=== PATIENT | female | born 1970 | race Caucasian/White ===

== ENCOUNTER 2017-12-29 17:10 | Outpatient (RCR) | payer SELFPAY ==
[~2017-12-29] VITALS: Ht 180.3 cm; Wt 72.6 kg
[~2017-12-29 17:10] MED LIST: ACET-2267 PO; ACHD5005 PO; ALPR1T PO; APIX5TAB PO; ASP81CT GT; ASPI-808 PO; AZIT-21 PO; CEPH500C PO; CLIN300C3 PO; CPR500T PO; FLC150T PO; FLUC200T PO; FURO-124 PO; GABA-488 PO; GLBR5T; GLIP5TAB13; GLUCOPHAGE; GLYB5TAB3; GLYB5TAB3 PO; GLYBURIDE; HYDR1TAB PO; Hydrocodone; IBUP-30 PO; INSASP10V SQ; INSU100V3 SC; INSU100V6 SQ; IRON1CAP25 PO; LEVE1U SQ; LEVO750T39 PO; Levamir; METF-380 PO; METF500T; METF500T5 PO; MTF500T; MTF500T PO; NAPR-243 PO; NAPR550T PO; NPH,100V SQ; Novolog; PAMI30VI8 SQ; PHEN200T27 PO; PRAV20TA3 PO; PROP1TAB77 PO; PRV20T PO; SULF1TAB38 PO; TRAM-21; TRAM-21 PO; TRAM50TA2 PO; TRM50T PO; VANC1.2520 IV; VANC1VIA IV; [UNRECOGNIZED DRUG - CODE] IV; [UNRECOGNIZED DRUG - OTHER]; [UNRECOGNIZED DRUG - OTHER]; vancomycin
[2017-12-29 17:34] LABS: MEAN PLATELET VOLUME 8.8 FL (7.4-10.4); RED BLOOD COUNT 2.87 10^6/uL (4.35-5.85); RED CELL DISTRIBUTION WIDTH 22.6 % (10.0-14.5); WHITE BLOOD COUNT 5.9 10^3/uL (4.3-11.0)
[2017-12-29 17:39] LABS: HEMOGLOBIN 4.5 G/DL (11.5-16.0)
[2017-12-29 17:50] LABS: ALANINE AMINOTRANSFERASE 8 U/L (0-55); ALBUMIN 3.8 GM/DL (3.2-4.5); ALKALINE PHOSPHATASE 85 U/L (40-136); BILIRUBIN,TOTAL 0.3 MG/DL (0.1-1.0); BUN/CREATININE RATIO 22; CARBON DIOXIDE 25 MMOL/L (21-32); CHLORIDE 99 MMOL/L (98-107); CREATININE SERUM 0.69 MG/DL (0.60-1.30); GFR ESTIMATED > 60; GLUCOSE 314 MG/DL (70-105); POTASSIUM 4.3 MMOL/L (3.6-5.0); SODIUM 132 MMOL/L (135-145); TOTAL PROTEIN 7.4 GM/DL (6.4-8.2)
[2017-12-30] VITALS (7 sets, daily range): BP systolic 119–130; BP diastolic 53–71
[2017-12-30 10:07] LABS: ABSOLUTE RETIC # 27 10e9/L (24-90); BASOPHILS # (AUTO) 0.1 10^3/uL (0.0-0.1); BASOPHILS % (AUTO) 3 % (0-10); EOSINOPHILS # (AUTO) 0.2 10^3/uL (0.0-0.3); EOSINOPHILS % (AUTO) 3 % (0-10); LYMPHOCYTES # (AUTO) 1.8 X 10^3 (1.0-4.0); LYMPHOCYTES % (AUTO) 31 % (12-44); MEAN CORPUSCULAR HEMOGLOBIN 16 PG (25-34); MEAN CORPUSCULAR HGB CONC 25 G/DL (32-36); MEAN CORPUSCULAR VOLUME 63 FL (80-99); MEAN PLATELET VOLUME 9.5 FL (7.4-10.4); MONOCYTES # (AUTO) 0.4 X 10^3 (0.0-1.0); MONOCYTES % (AUTO) 8 % (0-12); NEUTROPHILS # (AUTO) 3.2 X 10^3 (1.8-7.8); NEUTROPHILS % (AUTO) 56 % (42-75); PLATELET COUNT 408 10^3/uL (130-400); RED CELL DISTRIBUTION WIDTH 22.6 % (10.0-14.5); RETICULOCYTE % 0.99 % (0.50-2.40); WHITE BLOOD COUNT 5.7 10^3/uL (4.3-11.0)
[2017-12-30 10:11] LABS: HEMOGLOBIN 4.3 G/DL (11.5-16.0)
[2017-12-30 10:12] LABS: HEMATOCRIT 17 % (35-52)
[2017-12-30 10:22] LABS: ANISOCYTOSIS MARKED; BAND NEUTROPHILS 0 %; BASOPHILS % (MANUAL) 3 %; EOSINOPHILS % (MANUAL) 4 %; HYPOCHROMASIA MARKED; LYMPHOCYTES % (MANUAL) 31 %; MICROCYTOSIS MODERATE; MONOCYTES % (MANUAL) 6 %; NEUTROPHILS % (MANUAL) 56 %; POLYCHROMASIA SLIGHT
[2018-05-11] MEDS ORDERED: INSU100I10 SQ (10:22)
[2018-05-11] MEDS ORDERED: INSU100I14 SQ (10:22)
[2018-05-11] MEDS ORDERED: [UNRECOGNIZED DRUG - CODE] MC (10:22)
[2018-05-11] MEDS ORDERED: [UNRECOGNIZED DRUG - CODE] MC (10:22)
[2018-05-11] MEDS ORDERED: [UNRECOGNIZED DRUG - CODE] MC (10:22)
== END 2018-03-29 | disposition home or self-care (01) ==
LOC: SDC 17:10 → LAB 17:10 → EDSTATUS 12-30 09:09
PROVIDERS: ATTEND Internal Medicine
DX: D64.9 Anemia, unspecified (principal)
CPT/HCPCS: 36415; 80053; 82728; 85007; 85027; 85045; 86850; 86900; 86901; 86922

== ENCOUNTER 2018-03-30 22:23 | Emergency (ER) | payer SELFPAY ==
[~2018-03-30] VITALS: Ht 180.3 cm; Wt 77.1 kg
--- OUTSIDE RECORDS SUMMARY | 2018-03-30 22:27 | XMS REPORT ---
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 Active 86545938723197817 Problem Type 2 diabetes mellitus with foot ulcer E11.621 Active 9519378398654 Problem [facility] current use of insulin Z79.4 Active 951839563 Problem PVD (peripheral vascular disease) I73.9 Active 568436483 Problem Type 2 diabetes mellitus without complications E11.9 Active 782616015 Problem Gastroparesis K31.84 Active 615039218 ALLERGIES No Information SOCIAL HISTORY Never Assessed PLAN OF CARE VITAL SIGNS MEDICATIONS Medication Instructions Dosage Frequency Start Date End Date Duration Status Hydrocodone-Acetaminophen 7.5-325 MG Orally, Must be seen for more refills 3 times a day prn pain 1 tablet as needed Dec, Active RESULTS No Results PROCEDURES No Known procedures IMMUNIZATIONS No Known Immunizations MEDICAL (GENERAL) HISTORY Type Description Date Medical History LEFT below knee amputation Medical History Diabetes, Type II Medical History Hypertension Medical History Hyperlipidemia Surgical History Phuong ZUNIGA Blood Clot/Gangrene 06/25/2016 Surgical History 2 csections Surgical History gallstone removal Surgical History Left BKA Hospitalization History Surgery Hospitalization History Bilat Pleural Effusions, Volume Overload 08/07/16 Hospitalization History Fluid in lungs 08/22/16 Hospitalization History Left below knee amputation 10/2016
--- OUTSIDE RECORDS SUMMARY | 2018-03-30 22:28 | XMS REPORT ---
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
--- OUTSIDE RECORDS SUMMARY | 2018-03-30 22:28 | XMS REPORT ---
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 Active 26189264786812131 Problem Type 2 diabetes mellitus without complications E11.9 Active 390491614 Problem 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
--- OUTSIDE RECORDS SUMMARY | 2018-03-30 22:28 | XMS REPORT ---
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 Active 107502540 Problem PVD (peripheral vascular disease) I73.9 Active 478111030 Problem Type 2 diabetes mellitus without complications E11.9 Active 515352975 Problem Gastroparesis K31.84 Active 326843957 ALLERGIES Substance Reaction Event Type Date Status Penicillin V Potassium hives Drug Allergy Jan, Active SOCIAL HISTORY Never Assessed PLAN OF CARE Activity Details Follow Up 3 Months Reason: VITAL SIGNS Height 71 in 2017-02-11 Weight 165 lbs 2017-02-11 Temperature 98.6 degrees Fahrenheit 2017-02-11 Heart Rate 102 bpm 2017-02-11 Respiratory Rate 18 2017-02-11 BMI 23.01 kg/m2 2017-02-11 Blood pressure systolic 106 mmHg 2017-02-11 Blood pressure diastolic 58 mmHg 2017-02-11 MEDICATIONS Medication Instructions Dosage Frequency Start Date End Date Duration Status Metformin HCl 500 MG Orally Twice a day 1 tablet with meals 12h Active Lancets 1 by Subcutaneous route 3 times per day March, Active Lisinopril 5 mg Orally Once a day 1 tablet 24h Active Levemir FlexTouch 100 UNIT/ML Subcutaneous Once a day 45 units at bedtime 24h Oct, Active Aspirin 325 MG Orally Once a day 1 tablet 24h Active Humalog KwikPen 100 UNIT/ML Subcutaneous 3 times a day 12 units before meals 8h Oct, Active Hydrocodone-Acetaminophen 7.5-325 MG Orally, Must be seen for more refills 3 times a day prn pain 1 tablet as needed Jan, Active Lasix 40 mg Orally Once a day 1 tablet 24h Active pravastatin 20 mg by oral route Once a day 1 tablet 24h Feb, Active RESULTS Name Result Date Reference Range A1C (IN HOUSE) 2017-02-11 A1C IN HOUSE 10.3 4.3 - 5.6 % Previous A1c 8.1 Lot 0692 Exp date 11/2018 CMP 2017-02-11 Glucose, Serum 546 65-99 BUN 14 6-24 Creatinine, Serum 0.60 0.57-1.00 eGFR If NonAfricn Am 107 >59 eGFR If Africn Am 124 >59 BUN/Creatinine Ratio 23 9-23 Sodium, Serum 133 134-144 Potassium, Serum 4.5 3.5-5.2 Chloride, Serum 94 96-106 Carbon Dioxide, Total 23 18-29 Calcium, Serum 8.9 8.7-10.2 Protein, Total, Serum 6.6 6.0-8.5 Albumin, Serum 3.7 3.5-5.5 Globulin, Total 2.9 1.5-4.5 A/G Ratio 1.3 1.2-2.2 Bilirubin, Total <0.2 0.0-1.2 Alkaline Phosphatase, S 67 39-117 AST (SGOT) 8 0-40 ALT (SGPT) 8 0-32 LIPID PANEL 2017-02-11 Cholesterol, Total 142 100-199 Triglycerides 101 0-149 HDL Cholesterol 55 >39 VLDL Cholesterol [place] 20 5-40 LDL Cholesterol Calc 67 0-99 PROCEDURES Procedure Date Ordered Result Body Site LIPID PANEL February 11, 2017 COMPREHEN METABOLIC PANEL February 11, 2017 VENIPUNCT, ROUTINE* February 11, 2017 GLYCATED HEMOGLOBIN TEST February 11, 2017 IMMUNIZATIONS No Known Immunizations MEDICAL (GENERAL) HISTORY [...]
--- OUTSIDE RECORDS SUMMARY | 2018-03-30 22:28 | XMS REPORT ---
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 Active 39305229399123671 Problem Type 2 diabetes mellitus without complications E11.9 Active 387253260 Problem snf current use of insulin Z79.4 Active 232332300 Problem Type 2 diabetes mellitus with foot ulcer E11.621 Active 4768628381486 Problem PVD (peripheral vascular disease) I73.9 Active 962949129 ALLERGIES Unknown Allergies SOCIAL HISTORY No smoking Hx information available PLAN OF CARE VITAL SIGNS MEDICATIONS Medication Instructions Dosage Frequency Start Date End Date Duration Status Humalog KwikPen 100 UNIT/ML Subcutaneous 3 times a day 12 units before meals 8h 20 Oct, 2016 Active RESULTS No Results PROCEDURES No Known procedures IMMUNIZATIONS No Known Immunizations
--- OUTSIDE RECORDS SUMMARY | 2018-03-30 22:29 | XMS REPORT ---
Author YANI Luz [facility] [employer] Address Unknown Phone Unavailable Care Team Providers Care Cell Technician Name Role Phone YANI CESAR CP Unavailable Allergies No Known Allergies Problems Problem Type Condition Code Onset Dates Condition Status Problem Type 2 diabetes mellitus without complications E11.9 Active Problem group home current use of insulin Z79.4 Active Problem PVD (peripheral vascular disease) I73.9 Active Problem Gastroparesis K31.84 Active Problem Hyperlipidemia, unspecified hyperlipidemia type E78.5 Active Medications No Known Medications Results No Known Results Summary Purpose [employer] Submission
--- OUTSIDE RECORDS SUMMARY | 2018-03-30 22:29 | XMS REPORT ---
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
--- OUTSIDE RECORDS SUMMARY | 2018-03-30 22:29 | XMS REPORT ---
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 [id number] 5-325 MG Orally 3 times a day prn pain Oct 07, 2016 1 Results No Known Results Summary Purpose [employer] Submission
--- OUTSIDE RECORDS SUMMARY | 2018-03-30 22:29 | XMS REPORT ---
Author Author NEFTALI GRIFFITHS Organization [employer] Address Unknown Phone Unavailable Care Team Providers Care Anesthesiology Fellow Name Role Phone NEFTALI GRIFFITHS CP Unavailable Allergies No Known Allergies Problems Problem Type Condition Code Onset Dates Condition Status Problem Unspecified backache 724.5 Active Problem Other and unspecified diseases of the oral soft tissues 528.9 Active Problem Polyneuropathy in diabetes 357.2 Active Problem Diabetes mellitus without mention of complication, type II or unspecified type, uncontrolled 250.02 Active Problem Acute pain due to trauma 338.11 Active Problem Gastroparesis 536.3 Active Problem Unspecified vaginitis and vulvovaginitis 616.10 Active Problem Acute sinusitis, unspecified 461.9 Active Problem Unspecified constipation 564.00 Active Problem Edema 782.3 Active Problem 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 Problem Cellulitis and abscess of trunk 682.2 Active Problem Cellulitis and abscess of unspecified site 682.9 Active Problem 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 Active Problem Strike against or struck accidentally by other stationary object without subsequent fall E917.4 Active Problem Lumbago 724.2 Active Problem Screening for malignant neoplasm of the cervix V76.2 Active Problem Unspecified breast screening V76.10 Active Problem Unspecified disorder of the teeth and supporting structures 525.9 Active Problem Excessive or frequent menstruation 626.2 Active Problem Contact dermatitis and other eczema due to plants (except food) 692.6 Active Problem Dysmenorrhea 625.3 Active Medications No Known Medications Results No Known Results Summary Purpose [employer] Submission
--- OUTSIDE RECORDS SUMMARY | 2018-03-30 22:29 | XMS REPORT ---
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.4 Active 272820466 Problem PVD (peripheral vascular disease) I73.9 Active 001822139 Problem Type 2 diabetes mellitus without complications E11.9 Active 273115927 Problem Gastroparesis K31.84 Active 305134294 ALLERGIES No Information ENCOUNTERS Encounter Location Date Diagnosis [place] [id number] [place] [address] 59607- 8759 March, [place] [id number] [place] [address] 84222- 3324 Feb, PVD (peripheral vascular disease) I73.9 [facility] [id number] [place] [address] 17445- 6923 Jan, [place] [id number] [place] [address] 04212- 5407 Jan, PVD (peripheral vascular disease) I73.9 [place] [id number] [place] [address] 75077- 2391 Dec, PVD (peripheral vascular disease) I73.9 [place] [id number] [place] [address] 45436- 2818 Dec, Pale complexion R23.1 and Severe anemia D64.9 [facility] [id number] [place] [address] 66350- 6619 10 Nov, 2017 PVD (peripheral vascular disease) I73.9 [facility] [id number] [place] [address] 23038- 7954 09 Nov, 2017 PVD (peripheral vascular disease) I73.9 [facility] [id number] [place] [address] 77350- 7712 07 Oct, 2017 PVD (peripheral vascular disease) I73.9 [place] [id number] [place] [address] 12518- 0681 Sep, PVD (peripheral vascular disease) I73.9 [place] [id number] [place] [address] 23198- 2253 16 Aug, 2017 PVD (peripheral vascular disease) I73.9 [place] [id number] [place] [address] 63566- 7711 Jul, PVD (peripheral vascular disease) I73.9 [place] [id number] [place] [address] 07682- 8453 Jun, Type 2 diabetes mellitus without complications E11.9 ; Hyperlipidemia, unspecified hyperlipidemia type E78.5 and PVD (peripheral vascular disease) I73.9 [place] [id number] [place] [address] 50687- 3307 Jun, [place] [id number] [place] [address] 70237- 4732 Jun, Long-term use of high-risk medication Z79.899 [place] [id number] [place] [address] 21524- 5340 May, [place] [id number] [place] [address] 34334- 1462 May, Osteomyelitis, unspecified M86.9 [place] [id number] [place] [address] 98823- 3018 Apr, 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, 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 [place] [id number] [place] [address] 55239- 7651 March, Osteomyelitis, unspecified M86.9 [place] [id number] [place] [address] 16431- 0069 Feb, 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, 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 [place] [id number] [place] [address] 36071- 1304 Jan, 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, 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 [place] [id number] [place] [address] 01068- 7949 Jan, Type 2 diabetes mellitus without complications E11.9 ; 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.4 ; Hyperlipidemia, unspecified hyperlipidemia type E78.5 ; Long-term use of high-risk medication Z79.899 and PVD (peripheral vascular disease) I73.9 [place] [id number] [place] [address] 78342- 1274 Dec, Cellulitis of right lower limb L03.115 [place] [id number] [place] [address] 44994- 1271 Dec, [place] [id number] [place] [address] 54262- 3577 Nov, 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, 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 [place] [id number] [place] [address] 00054- 4095 Nov, [place] [id number] [place] [address] 47412- 2947 Nov, [place] [id number] [place] [address] 64701- 4641 Oct, Other fluid overload E87.79 and Acute embolism and thrombosis of left femoral vein I82.412 [facility] [id number] [place] [address] 89622- 9148 Oct, [facility] [id number] [place] [address] 22098- 9132 Oct, [facility] [id number] [place] [address] 73723- 5043 Oct, PVD (peripheral vascular disease) I73.9 [facility] [id number] [place] [address] 95583- 1163 Oct, Other fluid overload E87.79 and Acute embolism and thrombosis of left femoral vein I82.412 [place] [id number] [place] [address] 04273- 3027 Oct, [place] [id number] [place] [address] 38112- 0700 Oct, 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, 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 [facility] [id number] [place] [address] 14622- 4816 10 Sep, 2016 [place] [id number] [place] [address] 81290- 5559 Sep, [facility] [id number] [place] [address] 77713- 5339 08 Sep, 2016 PVD (peripheral vascular disease) I73.9 [place] [id number] [place] [address] 83285- 5702 07 Aug, 2016 Type 2 diabetes mellitus with foot ulcer E11.621 and PVD ( peripheral vascular disease) I73.9 [facility] [id number] [place] [address] 04292- 3381 30 Jul, 2016 [facility] [id number] [place] [address] 79526- 9221 13 Jul, 2016 [facility] [id number] [place] [address] 94935- 8962 Jul, [place] [address] [facility] [id number] [place] [address]- 5754 Jul, [facility] [address] [facility] [id number] [place] [address]- 6045 Jun, [facility] [address] [place] [address]- 7935 Jun, [facility] [address] [place] [address]- 4291 Jun, [facility] [address] [facility] [id number] [place] [address]- 5289 May, [facility] [address] [address]- 9117 May, PVD (peripheral vascular disease) I73.9 ; Type 2 diabetes mellitus without complications E11.9 ; 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.4 and Hyperlipidemia, unspecified hyperlipidemia type E78.5 [facility] [address] [address]- 7253 May, [facility] [address] [address]- 8439 May, [facility] [address] [address]- 9038 May, [facility] [address] [address]- 5711 Feb, [facility] [id number] [place] [address]- 7168 Feb, [facility] [id number] [place] [address]- 6826 Jan, [facility] [address] [address]- 7657 Jan, [facility] [id number] [place] [address]- 4490 Dec, [facility] [id number] [place] [address]- 0419 Dec, [facility] [address] [id number] [place] [address]- 6713 Oct, [facility] [place] [facility] [address] [id number] [place] [address]- 0173 Oct, [facility] [place] [facility] [address] [id number] [place] [address]- 9519 Sep, [facility] [place] [facility] [address] [id number] [place] [address]- 3853 Sep, [facility] [place] [facility] [address] [id number] [place] [address]- 0314 Sep, [facility] [place] [facility] [address] [id number] [place] [address]- 5754 Sep, [facility] [place] [facility] [address] [facility] [id number] [place] [address]- 1073 Aug, [facility] [place] [facility] [address] [id number] [place] [address]- 6050 Aug, [facility] [place] [facility] [address] [facility] [id number] [place] [address]- 0057 Jul, [facility] [place] [facility] [address] [facility] [id number] [place] [address]- 8495 Jul, [facility] [place] [facility] [address] [id number] [place] [address]- 7248 Apr, [facility] [place] [facility] [address] [id number] [place] [address]- 2676 Apr, [facility] [place] [facility] [address] [id number] [place] [address]- 7419 Feb, [facility] [place] [facility] [address] [facility] [id number] [place] 8246 Feb, [facility] [place] [facility] [address] [facility] [id number] [place] 7624 Jan, [facility] [place] [facility] [address] [id number] [place] [address]- 2437 Jan, [facility] [place] [facility] [address] [id number] [place] [address]- 2886 Dec, [facility] [place] [facility] [address] [id number] [place] [address]- 9576 Dec, [facility] [place] [facility] [address] [id number] [place] [address]- 0564 Oct, [facility] [place] [facility] [address] [id number] [place] 0535 Oct, [facility] [place] [facility] [address] [id number] [place] [address]- 9049 Sep, [facility] [place] [facility] [address] [id number] [place] [address]- 1066 Sep, [facility] [place] [facility] [address] [id number] [place] [address]- 0472 Sep, [facility] [place] [facility] [address] [id number] [place] [address]- 9831 Sep, [facility] [place] [facility] [address] [id number] [place] [address]- 5002 Sep, [facility] [place] [facility] [address] [id number] [place] [address]- 9937 Sep, [facility] [place] [facility] [address] [id number] [place] [address]- 2133 Aug, [facility] [place] [facility] [address] [id number] [place] [address]- 7742 Jul, [facility] [place] [facility] [address] [id number] [place] [address]- 0303 Jun, [facility] [place] [facility] [address] [id number] [place] [address]- 8099 May, [facility] [place] [facility] [address] [id number] [place] [address]- 0757 Apr, [facility] [address] [id number] [place] [address]- 7991 Apr, [facility] [place] [facility] [address] [id number] [place] [address]- 5532 Apr, [facility] [address] [facility] [id number] [place] [address]- 8496 March, [facility] [address] [id number] [place] [address]- 1121 15 Jan, 2013 [facility] [address] [id number] [place] [address]- 3770 10 Jan, 2013 [facility] [address] [facility] [id number] [place] [address]- 0900 08 Jan, 2013 [facility] [id number] [place] [address]- 7256 07 Jan, 2013 [facility] [place] [facility] [address] [facility] [id number] [place] [address]- 1952 06 Jan, 2013 [facility] [address] [id number] [place] [address]- 5186 Dec, [facility] [place] [facility] [address] [id number] [place] [address]- 1815 18 Dec, 2012 [facility] [address] [id number] [place] [address]- 6886 Dec, [facility] [place] [facility] [address] [facility] [id number] [place] [address]- 2546 07 Dec, 2012 [facility] [place] [facility] [address] [id number] [place] [address]- 6140 05 Dec, 2012 [facility] [place] [facility] [address] [facility] [id number] [place] [address] 2546 Nov, [facility] [place] [facility] [address] [facility] [id number] [place] [address]- 6854 Nov, [facility] [place] [facility] [address] [id number] [place] [address]- 5379 Nov, [facility] [address] [id number] [place] [address]- 9400 Nov, [facility] [address] [id number] [place] [address]- 1980 Nov, [facility] [address] [id number] [place] [address]- 8948 Nov, [facility] [address] [id number] [place] [address]- 6680 Nov, [facility] [address] [id number] [place] [address]- 9238 Nov, [facility] [address] [id number] [place] [address]- 1746 Nov, [facility] [address] [id number] [place] [address]- 7257 Sep, [facility] [address] [id number] [place] [address]- 6117 14 Sep, 2012 [facility] [address] [id number] [place] [address]- 9945 25 Jul, 2012 [facility] [address] [id number] [place] [address]- 8460 17 Jul, 2012 [facility] [address] [id number] [place] [address]- 2802 11 Jul, 2012 [facility] [place] [facility] [address] [id number] [place] [address]- 3786 10 Jul, 2012 [facility] [place] [facility] [address] [id number] [place] [address]- 2612 05 Jul, 2012 [facility] [place] [facility] [address] [id number] [place] [address]- 7207 05 Jul, 2012 [facility] [place] [facility] [address] [id number] [place] [address]- 2737 28 Jun, 2012 [facility] [place] [facility] [address] [id number] [place] [address]- 0577 20 Jun, 2012 [facility] [place] [facility] [address] [id number] [place] [address]- 2276 18 Jun, 2012 [facility] [place] [facility] [address] [id number] [place] [address]- 4456 17 Jun, 2012 [facility] [place] [facility] [address] [id number] [place] [address]- 8699 16 Jun, 2012 [facility] [place] [facility] [address] [id number] [place] [address]- 3879 Jun, [facility] [place] [facility] [address] [id number] [place] [address]- 6865 14 Jun, 2012 [facility] [place] [facility] [address] [id number] [place] [address]- 8999 Jun, [facility] [place] [facility] [address] [id number] [place] [address]- 8827 30 May, 2012 [facility] [place] [facility] [address] [id number] [place] [address]- 6865 May, [facility] [place] [facility] [address] [id number] [place] [address]- 6138 Apr, [facility] [place] [facility] [address] [id number] [place] [address]- 0967 March, [facility] [place] [facility] [address] [id number] [place] [address]- 2035 March, [facility] [place] [facility] [address] [id number] [place] [address]- 0450 March, [facility] [place] [facility] [address] [id number] [place] [address]- 1214 March, [facility] [place] [facility] [address] [id number] [place] [address]- 1034 Feb, [facility] [place] [facility] [address] [id number] [place] [address]- 6454 Feb, [facility] [address] [id number] [place] [address]- 2817 Feb, [facility] [place] [facility] [address] [id number] [place] [address]- 8608 Jan, [facility] [place] [facility] [address] [id number] [place] [address]- 6266 Dec, [facility] [place] [facility] [address] [id number] [place] [address]- 5311 Dec, [facility] [place] [facility] [address] [id number] [place] [address]- 8289 Dec, [facility] [place] [facility] [address] [id number] [place] [address]- 7193 Dec, [facility] [place] [facility] [address] [id number] [place] [address]- 7456 Dec, [facility] [place] [facility] [address] [id number] [place] [address]- 5901 Nov, [facility] [address] [facility] [id number] [place] [address]- 6177 Oct, [facility] [place] [facility] [address] [facility] [id number] [place] [address]- 0404 Sep, [facility] [place] [facility] [address] [id number] [place] [address]- 8225 Sep, [facility] [place] [facility] [address] [id number] [place] [address]- 2340 Aug, [facility] [place] [facility] [address] [id number] [place] [address]- 6675 Aug, [facility] [place] [facility] [address] [id number] [place] [address]- 3742 14 Nov, 2010 [facility] [place] [facility] [address] [id number] [place] [address]- 0582 Aug, [facility] [address] [facility] [id number] [place] [address]- 9016 March, IMMUNIZATIONS No Known Immunizations SOCIAL HISTORY Never Assessed REASON FOR VISIT hydrocodone 08/16/2017 PLAN OF CARE VITAL SIGNS MEDICATIONS Medication Instructions Dosage Frequency Start Date End Date Duration Status Hydrocodone-Acetaminophen 7.5-325 MG Orally 3 times a day 1 tablet 8h Jul, 28 days Active RESULTS No Results PROCEDURES No Known procedures INSTRUCTIONS MEDICATIONS ADMINISTERED No Known Medications MEDICAL (GENERAL) HISTORY Type Description Date Medical [...]
--- OUTSIDE RECORDS SUMMARY | 2018-03-30 22:29 | XMS REPORT ---
Author Author YANI CESAR [facility] Address [address] [place] [address] Care Team Providers Care Occupational Therapy Instructor Name Role Phone YANI CESAR Unavailable PROBLEMS Type Condition ICD9-CM Code SVA43-HD Code Onset Dates Condition Status SNOMED Code Problem Hyperlipidemia, unspecified hyperlipidemia type E78.5 Active 03029481 Problem Atherosclerosis of [place] arteries of extremities with gangrene, 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 Active 11092564709105065 Problem Type 2 diabetes mellitus with foot ulcer E11.621 Active 1135880473036 Problem exterminator termite current use of insulin Z79.4 Active 659712402 Problem PVD (peripheral vascular disease) I73.9 Active 892647315 Problem Type 2 diabetes mellitus without complications E11.9 Active 821479432 Problem Gastroparesis K31.84 Active 510848371 ALLERGIES No Information SOCIAL HISTORY Never Assessed PLAN OF CARE VITAL SIGNS MEDICATIONS Medication Instructions Dosage Frequency Start Date End Date Duration Status Hydrocodone-Acetaminophen 7.5-325 MG Orally 3 times a day 1 tablet 8h March, 28 days Active RESULTS No Results PROCEDURES [...]
--- OUTSIDE RECORDS SUMMARY | 2018-03-30 22:29 | XMS REPORT ---
Author Author YANI CESAR [facility] Address [address] [place] [address] Care Team Providers Care Lamp Inspector Name Role Phone YANI CESAR Unavailable PROBLEMS Type Condition ICD9-CM Code LQH08-RT Code Onset Dates Condition Status SNOMED Code Problem Gastroparesis K31.84 Active 565422264 Problem Hyperlipidemia, unspecified hyperlipidemia type E78.5 Active 29813491 Problem Osteomyelitis, unspecified M86.9 Active 88243148 Problem Atherosclerosis of [place] arteries of extremities with gangrene, 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 Active 37425126867195323 Problem Type 2 diabetes mellitus without complications E11.9 Active 036523646 Problem snf current use of insulin Z79.4 Active 689312743 Problem Type 2 diabetes mellitus with foot ulcer E11.621 Active 9371391205441 Problem PVD (peripheral vascular disease) I73.9 Active 180292034 ALLERGIES Unknown Allergies SOCIAL HISTORY No smoking Hx information available PLAN OF CARE VITAL SIGNS MEDICATIONS Medication Instructions Dosage Frequency Start Date End Date Duration Status Levemir FlexTouch 100 UNIT/ML Subcutaneous Once a day 45 units at bedtime 24h Oct, Active RESULTS No Results PROCEDURES No Known procedures IMMUNIZATIONS No Known Immunizations
--- OUTSIDE RECORDS SUMMARY | 2018-03-30 22:29 | XMS REPORT ---
Author Author YANI CESAR 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
--- OUTSIDE RECORDS SUMMARY | 2018-03-30 22:29 | XMS REPORT ---
Author Author NEFTALI GRIFFITHS Organization [employer] Address Unknown Phone Unavailable Care Team Providers Care Home Comfort Advisor Name Role Phone NEFTALI GRIFFITHS CP Unavailable [...]
--- OUTSIDE RECORDS SUMMARY | 2018-03-30 22:29 | XMS REPORT ---
Author YANI Luz Organization [employer] Address Unknown Phone Unavailable Care Team Providers Care Sausage Mixer Name Role Phone YANI CESAR CP Unavailable Allergies, Adverse Reactions, Alerts Substance Reaction Event Type Penicillamine Info Not Available Drug Allergy Problems Problem Type Condition Code Onset Dates Condition Status Problem PVD (peripheral vascular disease) I73.9 Active Problem Type 2 diabetes mellitus without complications E11.9 Active Problem Type 2 diabetes mellitus with foot ulcer E11.621 Active Problem Hyperlipidemia, unspecified hyperlipidemia type E78.5 Active Assessment PVD (peripheral vascular disease) I73.9 Active 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 Active Problem Gastroparesis K31.84 Active Medications Medication Code System Code Instructions Start Date End Date Status Dosage Aspirin [facility] [address]-99 325 MG Orally Once a day 1 tablet Humulin R [facility] [address]-33 100 UNIT/ML Injection 3 times a day 4 units Hydrocodone-Acetaminophen [facility] [address]-76 5-325 MG Orally 3 times a day prn pain [address] [facility] [address]-19 5 mg Orally 2 times a day not defined pravastatin ND 0 20 mg by oral route Once a day February 26, [address] [facility] [address]-88 5 mg Orally Once a day 1 tablet Metformin HCl [facility] [address]-23 500 MG Orally Twice a day 1 tablet with meals Lasix [facility] [address]-07 40 mg Orally twice a day for 5 days and then decrease to 1 tab daily 1 tablet Procedures Procedure Coding System Code Date Office Visit, Est Pt., Level 2 CPT-4 04715 Oct 05, 2016 Vital Signs Date/Time: Oct 05, 2016 Cardiac Monitoring Heart Rate 98 bpm Weight 150 lbs Height 71 in BMI 20.92 Index Blood Pressure Diastolic 72 mmHg Blood Pressure Systolic 122 mmHg Results No Known Results Summary Purpose [employer] Submission
--- OUTSIDE RECORDS SUMMARY | 2018-03-30 22:30 | XMS REPORT ---
Author Author NEFTALI GRIFFITHS Organization [facility] [place] Address [address] [place] [address] Care Team Providers Care Snuff Container Inspector Name Role Phone NEFTALI GRIFFITHS Unavailable PROBLEMS Type Condition ICD9-CM Code [id number] Code Onset Dates Condition Status SNOMED Code Problem PVD (peripheral vascular disease) I73.9 Active 005016986 Problem Type 2 diabetes mellitus without complications E11.9 Active 992516058 Problem Hyperlipidemia, unspecified hyperlipidemia type E78.5 Active 61024503 Problem [facility] current use of insulin Z79.4 Active 849249203 Problem Gastroparesis K31.84 Active 857964815 ALLERGIES Unknown Allergies SOCIAL HISTORY No smoking Hx information available PLAN OF CARE VITAL SIGNS MEDICATIONS Medication Instructions Dosage Frequency Start Date End Date Duration Status Humulin R 100 UNIT/ML Injection 3 times a day 4 units 8h Active Humulin N 100 UNIT/ML Subcutaneous 2 times a day before meals 8 units Active Eliquis 5 mg Orally 2 times a day 12h Active Vancomycin HCl 1000 MG Intravenous every 8 hrs, to end 08/18/16 Active Lasix 40 mg Orally twice a day for 5 days and then decrease to 1 tab daily 1 tablet Active Levofloxacin 750 MG Orally Once a day until 08/18/16 1 tablet Active Aspirin 325 MG Orally Once a day 1 tablet 24h Active Clindamycin Phosphate 600 MG/4ML Injection every 8 hours 2 ml 8h Active Metformin HCl 500 MG Orally Twice a day 1 tablet with meals 12h Active RESULTS No Results PROCEDURES No Known procedures IMMUNIZATIONS No Known Immunizations
--- OUTSIDE RECORDS SUMMARY | 2018-03-30 22:30 | XMS REPORT ---
Author JERILYN Shankar [facility] e[employer] Address Unknown Phone Unavailable Care Team Providers Care Termite Control Service Representative Name Role Phone JERILYN RAMESH CP Unavailable Allergies No Known Allergies Problems Problem Type Condition Code Onset Dates Condition Status Problem Type 2 diabetes mellitus without complications E11.9 Active Problem care home current use of insulin Z79.4 Active Problem PVD (peripheral vascular disease) I73.9 Active Problem Gastroparesis K31.84 Active Problem Hyperlipidemia, unspecified hyperlipidemia type E78.5 Active Medications No Known Medications Results No Known Results Summary Purpose [employer] Submission
--- OUTSIDE RECORDS SUMMARY | 2018-03-30 22:30 | XMS REPORT ---
Author Author YANI CESAR Organization [facility] Address [address] [place] [address] Care Team Providers Care Sustainability Consultant Name Role Phone YANI CESAR Unavailable PROBLEMS Type Condition ICD9-CM Code [id number] Code Onset Dates Condition Status SNOMED Code Problem Gastroparesis K31.84 Active 278136161 Problem Hyperlipidemia, unspecified hyperlipidemia type E78.5 Active 98685418 Problem Osteomyelitis, unspecified M86.9 Active 43434048 Problem Atherosclerosis of [place] arteries of extremities with gangrene, 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 Active 96636955386762661 Problem Type 2 diabetes mellitus without complications E11.9 Active 449127256 Problem 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.4 Active 020980371 Problem Type 2 diabetes mellitus with foot ulcer E11.621 Active 5847883682086 Problem PVD (peripheral vascular disease) I73.9 Active 536526565 ALLERGIES Unknown Allergies SOCIAL HISTORY No smoking Hx information available PLAN OF CARE VITAL SIGNS MEDICATIONS Medication Instructions Dosage Frequency Start Date End Date Duration Status Levemir FlexTouch 100 UNIT/ML Subcutaneous Once a day 40 units @ bedtime 24h Oct, Active Humalog KwikPen 100 UNIT/ML Subcutaneous 3 times a day 7 units before meals 8h Oct, Active RESULTS No Results PROCEDURES No Known procedures IMMUNIZATIONS No Known Immunizations
--- OUTSIDE RECORDS SUMMARY | 2018-03-30 22:30 | XMS REPORT ---
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
--- OUTSIDE RECORDS SUMMARY | 2018-03-30 22:30 | XMS REPORT ---
Author Author NEFTALI GRIFFITHS [facility] Address [address] [place] [address] Care Team Providers Care Computer Programmer Name Role Phone NEFTALI GRIFFITHS Unavailable PROBLEMS Type Condition ICD9-CM Code [id number] Code Onset Dates Condition Status SNOMED Code Problem PVD (peripheral vascular disease) I73.9 Active 838005807 Problem Type 2 diabetes mellitus without complications E11.9 Active 657770359 Problem Hyperlipidemia, unspecified hyperlipidemia type E78.5 Active 95947648 Problem care home current use of insulin Z79.4 Active 613171184 Problem Gastroparesis K31.84 Active 607909221 ALLERGIES Unknown Allergies SOCIAL HISTORY No smoking Hx information available PLAN OF CARE VITAL SIGNS MEDICATIONS Unknown Medications RESULTS No Results PROCEDURES No Known procedures IMMUNIZATIONS No Known Immunizations
--- OUTSIDE RECORDS SUMMARY | 2018-03-30 22:30 | XMS REPORT ---
Author YANI Luz [facility] e[employer] Address Unknown Phone Unavailable Care Team Providers Care Cream Maker Name Role Phone YANI CESAR CP Unavailable Allergies, Adverse Reactions, Alerts Substance Reaction Event Type Penicillamine Info Not Available Drug Allergy Problems Problem Type Condition Code Onset Dates Condition Status Assessment PVD (peripheral vascular disease) I73.9 Active Problem PVD (peripheral vascular disease) I73.9 Active Problem Type 2 diabetes mellitus without complications E11.9 Active Problem Type 2 diabetes mellitus with foot ulcer E11.621 Active Problem Hyperlipidemia, unspecified hyperlipidemia type E78.5 Active Assessment Type 2 diabetes mellitus with foot ulcer E11.621 Active 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 Problem Gastroparesis K31.84 Active Medications Medication Code System Code Instructions Start Date End Date Status Dosage Humulin R [facility] [address]-94 100 UNIT/ML Injection 3 times a day 4 units pravastatin ND 0 20 mg by oral route Once a day February 26, 2014 1 tablet Lisinopril [facility] [address]-11 5 mg Orally Once a day 1 tablet Eliquis [facility] [address]-18 5 mg Orally 2 times a day not defined Metformin HCl [facility] [address]-03 500 MG Orally Twice a day 1 tablet with meals Lasix [facility] [address]-77 40 mg Orally twice a day for 5 days and then decrease to 1 tab daily 1 tablet Hydrocodone-Acetaminophen [facility] [address]-06 5-325 MG Orally 3 times a day prn pain 1 Aspirin [facility] [address]-08 325 MG Orally Once a day 1 tablet Procedures Procedure Coding System Code Date Office Visit, Est Pt., Level 3 CPT-4 83228 Sep 03, 2016 GLYCATED HEMOGLOBIN TEST CPT-4 40476 Sep 03, 2016 Vital Signs Date/Time: Sep 03, 2016 Cardiac Monitoring Heart Rate 118 bpm Weight 155.0 lbs Height 71 in BMI 21.62 Index Blood Pressure Diastolic 61 mmHg Blood Pressure Systolic 79 mmHg Results Name Result Date Reference Range Unit Abnormality Flag A1C (IN HOUSE) ----A1C IN HOUSE 8.1 [id number] 4.3 - 5.6 % ----Previous A1c 11.0 [id number] ----Lot [id number] ----Exp date [id number] Summary Purpose eClinicalWorks Submission
--- OUTSIDE RECORDS SUMMARY | 2018-03-30 22:30 | XMS REPORT ---
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
--- OUTSIDE RECORDS SUMMARY | 2018-03-30 22:30 | XMS REPORT ---
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.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 693598210 Problem Gastroparesis K31.84 Active 076911231 Problem PVD (peripheral vascular disease) I73.9 Active 653906436 Problem Type 2 diabetes mellitus without complications E11.9 Active 507152732 ALLERGIES Substance Reaction Event Type Date Status Penicillin V Potassium hives Drug Allergy Oct, Active SOCIAL HISTORY No smoking Hx information available PLAN OF CARE Activity Details Follow Up 4 Weeks Reason: VITAL SIGNS Height 71 in 2016-11-19 Weight 154 lbs 2016-11-19 Temperature 97.4 degrees Fahrenheit 2016-11-19 Heart Rate 104 bpm 2016-11-19 Respiratory Rate 20 2016-11-19 BMI 21.48 kg/m2 2016-11-19 Blood pressure systolic 106 mmHg 2016-11-19 Blood pressure diastolic 72 mmHg 2016-11-19 MEDICATIONS Medication Instructions Dosage Frequency Start Date End Date Duration Status Aspirin 325 MG Orally Once a day 1 tablet 24h Active Hydrocodone-Acetaminophen 7.5-325 MG Orally 3 times a day prn pain 1 Oct, Active Lisinopril 5 mg Orally Once a day 1 tablet 24h Active Humalog KwikPen 100 UNIT/ML Subcutaneous 3 times a day 7 units before meals 8h Oct, Active Levemir FlexTouch 100 UNIT/ML Subcutaneous Once a day 40 units @ bedtime 24h Oct, Active Metformin HCl 500 MG Orally Twice a day 1 tablet with meals 12h Active Eliquis 5 mg Orally 2 times a day 1 tablet 12h Active Hydrocodone-Acetaminophen 7.5-325 MG Orally every 6 hrs 1 tablet as needed 6h Oct, Active Lancets 1 by Subcutaneous route 3 times per day March, Active Lasix 40 mg Orally Once a day 1 tablet 24h Active RESULTS No Results PROCEDURES Procedure Date Ordered Related Diagnosis Body Site Office Visit, Est Pt., Level 2 Nov 19, 2016 IMMUNIZATIONS No Known Immunizations
--- OUTSIDE RECORDS SUMMARY | 2018-03-30 22:30 | XMS REPORT ---
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 Assessment Hyperlipidemia, unspecified hyperlipidemia type E78.5 Active Problem Type 2 diabetes mellitus without complications E11.9 Active Problem retirement current use of insulin Z79.4 Active Problem PVD (peripheral vascular disease) I73.9 Active Assessment PVD (peripheral vascular disease) I73.9 Active Assessment Type 2 diabetes mellitus without complications E11.9 Active Problem Gastroparesis K31.84 Active Problem Hyperlipidemia, unspecified hyperlipidemia type E78.5 Active Medications Medication Code System Code Instructions Start Date End Date Status Dosage Hydrocodone-Acetaminophen [facility] [address]-19 5-325 MG Orally q 6h prn pain 1 tablet as needed pravastatin NDC 0 20 mg by oral route Once a day February 26, 2014 1 tablet Lisinopril [facility] [address]-99 5 MG Orally Once a day 1 tablet Procedures Procedure Coding System Code Date Office Visit, Est Pt., Level 3 CPT-4 12248 June 25, 2016 Vital Signs Date/Time: June 25, 2016 Cardiac Monitoring Heart Rate 138 bpm Weight 151.9 lbs Height 71 in BMI 21.18 Index Blood Pressure Diastolic 60 mmHg Blood Pressure Systolic 90 mmHg Results No Known Results Summary Purpose eClinicalWorks Submission
--- OUTSIDE RECORDS SUMMARY | 2018-03-30 22:30 | XMS REPORT ---
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
--- OUTSIDE RECORDS SUMMARY | 2018-03-30 22:31 | XMS REPORT ---
Author YANI Luz [facility] e[employer] Address Unknown Phone Unavailable Care Team Providers Care Cylinder Valve Repairer Name Role Phone YANI CESAR CP Unavailable Allergies No Known Allergies Problems Problem Type Condition Code Onset Dates Condition Status Problem Type 2 diabetes mellitus without complications E11.9 Active Problem [facility] current use of insulin Z79.4 Active Problem PVD (peripheral vascular disease) I73.9 Active Problem Gastroparesis K31.84 Active Problem Hyperlipidemia, unspecified hyperlipidemia type E78.5 Active Medications No Known Medications Results No Known Results Summary Purpose eClinicalWorks Submission
--- OUTSIDE RECORDS SUMMARY | 2018-03-30 22:31 | XMS REPORT ---
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 76231889226928868 Problem Type 2 diabetes mellitus with foot ulcer E11.621 Active 2119013491362 Problem retirement current use of insulin Z79.4 Active 563829752 Problem PVD (peripheral vascular disease) I73.9 Active 006695211 Problem Type 2 diabetes mellitus without complications E11.9 Active 194069904 Problem Gastroparesis K31.84 Active 342254119 ALLERGIES No Known Allergies SOCIAL HISTORY No smoking Hx information available PLAN OF CARE VITAL SIGNS MEDICATIONS Medication Instructions Dosage Frequency Start Date End Date Duration Status Hydrocodone-Acetaminophen 7.5-325 MG Orally 3 times a day prn pain 1 tablet as needed Nov, Active RESULTS No Results PROCEDURES No Known procedures IMMUNIZATIONS No Known Immunizations
--- OUTSIDE RECORDS SUMMARY | 2018-03-30 22:31 | XMS REPORT ---
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
--- OUTSIDE RECORDS SUMMARY | 2018-03-30 22:34 | XMS REPORT | Continuity of Care Document ---
Author Author [facility] Organization [facility] Address Unknown Phone Unavailable Allergies Active Description Code Type Severity Reaction Onset Reported/Identified Relationship to Patient Clinical Status Yes Penicillins [id number] Drug Allergy Unknown N/A 12/08/2007 Yes codeine [id number] Drug Allergy Mild N/A 04/21/2009 Yes Penicillins Drug Allergy N/A N/A 04/13/2010 Yes Penicillins Drug Allergy 04/13/2010 Yes Bactrim DS Drug Allergy N/A N/A 01/06/2011 Yes Bactrim DS Drug Allergy 01/06/2011 Medications There is no data. Problems Date Dx Coded Attending Type Code Diagnosis Diagnosed By DRABY MCKENNA MD, Ot E11.52 TYPE 2 DIABETES W DIABETIC PERIPHERAL AN DARBY MCKENNA MD, Ot E11.622 TYPE 2 DIABETES MELLITUS WITH OTHER SKIN DARBY MCKENNA MD, Ot I70.262 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 W DARBY MCKENNA MD, Ot L97.223 NON-PRESSURE CHRONIC ULCER OF LEFT CALF DARBY MCKENNA MD, Ot T65.222A TOXIC EFFECT OF TOBACCO CIGARETTES, SELF DARBY MCKENNA MD, Ot T81.31XA DISRUPTION OF EXTERNAL OPERATION (SURGIC 10/27/1599 DARBY MCKENNA MD, Ot E11.52 TYPE 2 DIABETES W DIABETIC PERIPHERAL AN 10/27/1599 DARBY MCKENNA MD, Ot E11.622 TYPE 2 DIABETES MELLITUS WITH OTHER SKIN 10/27/1599 DARBY MCKENNA MD, Ot I70.262 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 W 10/27/1599 DARBY MCKENNA MD, Ot L97.223 NON-PRESSURE CHRONIC ULCER OF LEFT CALF 10/27/1599 DARBY MCKENNA MD, Ot T65.222A TOXIC EFFECT OF TOBACCO CIGARETTES, SELF 10/27/1599 DARBY MCKENNA MD, Ot T81.31XA DISRUPTION OF EXTERNAL OPERATION (SURGIC 02/24/2009 NEFTALI RACHEL APRN 300.00 An Anxiety Unspec 02/24/2009 NEFTALI RACHEL APRN 307.47 Si Dyssomnia Nos 02/24/2009 YANI CESAR MD 300.00 An Anxiety Unspec 02/24/2009 YANI CESAR MD 307.47 Si Dyssomnia Nos 02/24/2009 300.00 An Anxiety Unspec 02/24/2009 307.47 Si Dyssomnia Nos 02/24/2009 300.00 An Anxiety Unspec 02/24/2009 307.47 Si Dyssomnia Nos 02/24/2009 SUNI BRAR DO K 300.00 An Anxiety Unspec 02/24/2009 SUNI BRAR DO K 307.47 Si Dyssomnia Nos 02/24/2009 KERLINE ORO APRN R 300.00 An Anxiety Unspec 02/24/2009 KERLINE ORO APRN R 307.47 Si Dyssomnia Nos 02/24/2009 SUNI BRAR DO K 300.00 An Anxiety Unspec 02/24/2009 SUNI BRAR DO K 307.47 Si Dyssomnia Nos 02/24/2009 300.00 An Anxiety Unspec 02/24/2009 307.47 Si Dyssomnia Nos 02/24/2009 300.00 An Anxiety Unspec 02/24/2009 307.47 Si Dyssomnia Nos 02/24/2009 300.00 An Anxiety Unspec 02/24/2009 307.47 Si Dyssomnia Nos 02/24/2009 300.00 An Anxiety Unspec 02/24/2009 307.47 Si Dyssomnia Nos 02/24/2009 SUNI BRAR DO K 300.00 An Anxiety Unspec 02/24/2009 SUNI BRAR DO K 307.47 Si Dyssomnia Nos 02/24/2009 YANI CESAR MD 300.00 An Anxiety Unspec 02/24/2009 YANI CESAR MD 307.47 Si Dyssomnia Nos 02/24/2009 YANI CESAR MD 300.00 An Anxiety Unspec 02/24/2009 YANI CESAR MD 307.47 Si Dyssomnia Nos 02/24/2009 YANI CESAR MD 300.00 An Anxiety Unspec 02/24/2009 YANI CESAR MD 307.47 Si Dyssomnia Nos 02/24/2009 YANI CESAR MD 300.00 An Anxiety Unspec 02/24/2009 YANI CESAR MD 307.47 Si Dyssomnia Nos 02/24/2009 300.00 An Anxiety Unspec 02/24/2009 307.47 Si Dyssomnia Nos 05/06/2009 NEFTALI RACHEL APRN 300.01 An Panic Dis W/o Agora 05/06/2009 YANI CESAR MD 300.01 An Panic Dis W/o Agora 05/06/2009 300.01 An Panic Dis W/o Agora 05/06/2009 300.01 An Panic Dis W/o Agora 05/06/2009 SUNI BRAR DO 300.01 An Panic Dis W/o Agora 05/06/2009 KERLINE ORO APRN 300.01 An Panic Dis W/o Agora 05/06/2009 SUNI BRAR DO 300.01 An Panic Dis W/o Agora 05/06/2009 300.01 An Panic Dis W/o Agora 05/06/2009 300.01 An Panic Dis W/o Agora 05/06/2009 300.01 An Panic Dis W/o Agora 05/06/2009 300.01 An Panic Dis W/o Agora 05/06/2009 SUNI BRAR DO 300.01 An Panic Dis W/o Agora 05/06/2009 YANI CESAR MD 300.01 An Panic Dis W/o Agora 05/06/2009 YANI CESAR MD 300.01 An Panic Dis W/o Agora 05/06/2009 YANI CESAR MD 300.01 An Panic Dis W/o Agora 05/06/2009 YANI CESAR MD 300.01 An Panic Dis W/o Agora 05/06/2009 300.01 An Panic Dis W/o Agora 04/13/2010 NEFTALI RACHEL APRN 250.00 Diabetes Ii Controlled 04/13/2010 YANI CESAR MD 250.00 Diabetes Ii Controlled 04/13/2010 250.00 Diabetes Ii Controlled 04/13/2010 250.00 Diabetes Ii Controlled 04/13/2010 SUNI BRAR DO 250.00 Diabetes Ii Controlled 04/13/2010 KERLINE ORO APRN 250.00 Diabetes Ii Controlled 04/13/2010 SUNI BRAR DO 250.00 Diabetes Ii Controlled 04/13/2010 250.00 Diabetes Ii Controlled 04/13/2010 250.00 Diabetes Ii Controlled 04/13/2010 250.00 Diabetes Ii Controlled 04/13/2010 250.00 Diabetes Ii Controlled 04/13/2010 SUNI BRAR DO 250.00 Diabetes Ii Controlled 04/13/2010 YANI CESAR MD 250.00 Diabetes Ii Controlled 04/13/2010 YANI CESAR MD 250.00 Diabetes Ii Controlled 04/13/2010 YANI CESAR MD 250.00 Diabetes Ii Controlled 04/13/2010 YANI CESAR MD 250.00 Diabetes Ii Controlled 04/13/2010 250.00 Diabetes Ii Controlled 12/18/2010 Ot 521.00 UNSPEC DENTAL CARIES 12/18/2010 Ot 525.9 DENTAL DISORDER NOS 12/28/2010 NEFTALI RACHEL APRN 682.2 Cellulitis And Abscess Of Trunk 12/28/2010 YANI CESAR MD 682.2 Cellulitis And Abscess Of Trunk 12/28/2010 682.2 Cellulitis And Abscess Of Trunk 12/28/2010 682.2 Cellulitis And Abscess Of Trunk 12/28/2010 SUNI BRAR DO 682.2 Cellulitis And Abscess Of Trunk 12/28/2010 KERLINE ORO APRN 682.2 Cellulitis And Abscess Of Trunk 12/28/2010 SUNI BRAR DO 682.2 Cellulitis And Abscess Of Trunk 12/28/2010 682.2 Cellulitis And Abscess Of Trunk 12/28/2010 682.2 Cellulitis And Abscess Of Trunk 12/28/2010 682.2 Cellulitis And Abscess Of Trunk 12/28/2010 682.2 Cellulitis And Abscess Of Trunk 12/28/2010 SUNI BRAR DO 682.2 Cellulitis And Abscess Of Trunk 12/28/2010 YANI CESAR MD 682.2 Cellulitis And Abscess Of Trunk 12/28/2010 YANI CESAR MD 682.2 Cellulitis And Abscess Of Trunk 12/28/2010 YANI CESAR MD 682.2 Cellulitis And Abscess Of Trunk 12/28/2010 YANI CESAR MD 682.2 Cellulitis And Abscess Of Trunk 12/28/2010 682.2 Cellulitis And Abscess Of Trunk 02/19/2011 NEFTALI RACHEL APRN 522.5 Periapical Abscess Without Sinus 02/19/2011 YANI CESAR MD 522.5 Periapical Abscess Without Sinus 02/19/2011 522.5 Periapical Abscess Without Sinus 02/19/2011 522.5 Periapical Abscess Without Sinus 02/19/2011 ZONIA CONTRERAS SUNI Granger 522.5 Periapical Abscess Without Sinus 02/19/2011 KERLINE ORO APRN 522.5 Periapical Abscess Without Sinus 02/19/2011 BRAR SUNI K 522.5 Periapical Abscess Without Sinus 02/19/2011 522.5 Periapical Abscess Without Sinus 02/19/2011 522.5 Periapical Abscess Without Sinus 02/19/2011 522.5 Periapical Abscess Without Sinus 02/19/2011 522.5 Periapical Abscess Without Sinus 02/19/2011 SUNI BRAR DO 522.5 Periapical Abscess Without Sinus 02/19/2011 YANI CESAR MD 522.5 Periapical Abscess Without Sinus 02/19/2011 YANI CESAR MD 522.5 Periapical Abscess Without Sinus 02/19/2011 YANI CESAR MD 522.5 Periapical Abscess Without Sinus 02/19/2011 YANI CESAR MD 522.5 Periapical Abscess Without Sinus 02/19/2011 522.5 Periapical Abscess Without Sinus 06/03/2011 NEFTALI RACHEL APRN 250.03 DIABETES MELLITUS WITHOUT MENTION OF COMPLICATION TYPE I [JUVENILE TYPE] UNCONTROLLED 06/03/2011 NEFTALI RACHEL APRN 686.9 Unspecified Local Infection Of Skin And Subcutaneous Tissue 06/03/2011 YANI CSEAR MD 250.03 DIABETES MELLITUS WITHOUT MENTION OF COMPLICATION TYPE I [JUVENILE TYPE] UNCONTROLLED 06/03/2011 YANI CESAR MD 686.9 Unspecified Local Infection Of Skin And Subcutaneous Tissue 06/03/2011 250.03 DIABETES MELLITUS WITHOUT MENTION OF COMPLICATION TYPE I [JUVENILE TYPE] UNCONTROLLED 06/03/2011 686.9 Unspecified Local Infection Of Skin And Subcutaneous Tissue 06/03/2011 250.03 DIABETES MELLITUS WITHOUT MENTION OF COMPLICATION TYPE I [JUVENILE TYPE] UNCONTROLLED 06/03/2011 686.9 Unspecified Local Infection Of Skin And Subcutaneous Tissue 06/03/2011 SUNI BRAR DO 250.03 DIABETES MELLITUS WITHOUT MENTION OF COMPLICATION TYPE I [JUVENILE TYPE] UNCONTROLLED 06/03/2011 SUNI BRAR DO 686.9 Unspecified Local Infection Of Skin And Subcutaneous Tissue 06/03/2011 KERLINE ORO APRN R 250.03 DIABETES MELLITUS WITHOUT MENTION OF COMPLICATION TYPE I [JUVENILE TYPE] UNCONTROLLED 06/03/2011 KERLINE ORO APRN 686.9 Unspecified Local Infection Of Skin And Subcutaneous Tissue 06/03/2011 SUNI BRAR DO 250.03 DIABETES MELLITUS WITHOUT MENTION OF COMPLICATION TYPE I [JUVENILE TYPE] UNCONTROLLED 06/03/2011 SUNI BRAR DO 686.9 Unspecified Local Infection Of Skin And Subcutaneous Tissue 06/03/2011 250.03 DIABETES MELLITUS WITHOUT MENTION OF COMPLICATION TYPE I [JUVENILE TYPE] UNCONTROLLED 06/03/2011 686.9 Unspecified Local Infection Of Skin And Subcutaneous Tissue 06/03/2011 250.03 DIABETES MELLITUS WITHOUT MENTION OF COMPLICATION TYPE I [JUVENILE TYPE] UNCONTROLLED 06/03/2011 686.9 Unspecified Local Infection Of Skin And Subcutaneous Tissue 06/03/2011 250.03 DIABETES MELLITUS WITHOUT MENTION OF COMPLICATION TYPE I [JUVENILE TYPE] UNCONTROLLED 06/03/2011 686.9 Unspecified Local Infection Of Skin And Subcutaneous Tissue 06/03/2011 250.03 DIABETES MELLITUS WITHOUT MENTION OF COMPLICATION TYPE I [JUVENILE TYPE] UNCONTROLLED 06/03/2011 686.9 Unspecified Local Infection Of Skin And Subcutaneous Tissue 06/03/2011 SUNI BRAR DO 250.03 DIABETES MELLITUS WITHOUT MENTION OF COMPLICATION TYPE I [JUVENILE TYPE] UNCONTROLLED 06/03/2011 SUNI BRAR DO 686.9 Unspecified Local Infection Of Skin And Subcutaneous Tissue 06/03/2011 YANI CESAR MD 250.03 DIABETES MELLITUS WITHOUT MENTION OF COMPLICATION TYPE I [JUVENILE TYPE] UNCONTROLLED 06/03/2011 YANI CESAR MD6.9 Unspecified Local Infection Of Skin And Subcutaneous Tissue 06/03/2011 YANI CESAR MD 250.03 DIABETES MELLITUS WITHOUT MENTION OF COMPLICATION TYPE I [JUVENILE TYPE] UNCONTROLLED 06/03/2011 YANI CESAR MD6.9 Unspecified Local Infection Of Skin And Subcutaneous Tissue 06/03/2011 YANI CESAR MD 250.03 DIABETES MELLITUS WITHOUT MENTION OF COMPLICATION TYPE I [JUVENILE TYPE] UNCONTROLLED 06/03/2011 YANI CESAR MD6.9 Unspecified Local Infection Of Skin And Subcutaneous Tissue 06/03/2011 YANI CESAR MD 250.03 DIABETES MELLITUS WITHOUT MENTION OF COMPLICATION TYPE I [JUVENILE TYPE] UNCONTROLLED 06/03/2011 YANI CESAR MD 686.9 Unspecified Local Infection Of Skin And Subcutaneous Tissue 06/03/2011 250.03 DIABETES MELLITUS WITHOUT MENTION OF COMPLICATION TYPE I [JUVENILE TYPE] UNCONTROLLED 06/03/2011 686.9 Unspecified Local Infection Of Skin And Subcutaneous Tissue 09/08/2011 NEFTALI RACHEL APRN 466.0 Bronchitis, Acute 09/08/2011 YANI CESAR MD 466.0 Bronchitis, Acute 09/08/2011 466.0 Bronchitis, Acute 09/08/2011 466.0 Bronchitis, Acute 09/08/2011 SUNI BRAR DO K 466.0 Bronchitis, Acute 09/08/2011 KERLINE ORO APRN 466.0 Bronchitis, Acute 09/08/2011 SUNI BRAR DO 466.0 Bronchitis, Acute 09/08/2011 466.0 Bronchitis, Acute 09/08/2011 466.0 Bronchitis, Acute 09/08/2011 466.0 Bronchitis, Acute 09/08/2011 466.0 Bronchitis, Acute 09/08/2011 SUNI BRAR DO 466.0 Bronchitis, Acute 09/08/2011 YANI CESAR MD 466.0 Bronchitis, Acute 09/08/2011 YANI CESAR MD 466.0 Bronchitis, Acute 09/08/2011 YANI CESAR MD 466.0 Bronchitis, Acute 09/08/2011 YANI CESAR MD 466.0 Bronchitis, Acute 09/08/2011 466.0 Bronchitis, Acute 10/08/2011 NEFTALI RACHEL APRN 272.4 OTHER AND UNSPECIFIED HYPERLIPIDEMIA 10/08/2011 NEFTALI RACHEL APRN V04.81 FLU DX (3 YRS AND ABOVE, IM) 10/08/2011 YANI CESAR MD 272.4 OTHER AND UNSPECIFIED HYPERLIPIDEMIA 10/08/2011 YANI CESAR MD V04.81 Flu Dx (3 Yrs And Above, Im) 10/08/2011 272.4 OTHER AND UNSPECIFIED HYPERLIPIDEMIA 10/08/2011 V04.81 Flu Dx (3 Yrs And Above, Im) 10/08/2011 272.4 OTHER AND UNSPECIFIED HYPERLIPIDEMIA 10/08/2011 V04.81 Flu Dx (3 Yrs And Above, Im) 10/08/2011 SUNI BRAR DO 272.4 OTHER AND UNSPECIFIED HYPERLIPIDEMIA 10/08/2011 SUNI BRAR DO K V04.81 Flu Dx (3 Yrs And Above, Im) 10/08/2011 KERLINE ORO APRN R 272.4 OTHER AND UNSPECIFIED HYPERLIPIDEMIA 10/08/2011 KERLINE ORO APRN R V04.81 Flu Dx (3 Yrs And Above, Im) 10/08/2011 SUNI BRAR DO K 272.4 OTHER AND UNSPECIFIED HYPERLIPIDEMIA 10/08/2011 LAURA BRAR DOA K V04.81 Flu Dx (3 Yrs And Above, Im) 10/08/2011 272.4 OTHER AND UNSPECIFIED HYPERLIPIDEMIA 10/08/2011 V04.81 Flu Dx (3 Yrs And Above, Im) 10/08/2011 272.4 OTHER AND UNSPECIFIED HYPERLIPIDEMIA 10/08/2011 V04.81 Flu Dx (3 Yrs And Above, Im) 10/08/2011 272.4 OTHER AND UNSPECIFIED HYPERLIPIDEMIA 10/08/2011 V04.81 Flu Dx (3 Yrs And Above, Im) 10/08/2011 272.4 OTHER AND UNSPECIFIED HYPERLIPIDEMIA 10/08/2011 V04.81 Flu Dx (3 Yrs And Above, Im) 10/08/2011 SUNI BRAR DO 272.4 OTHER AND UNSPECIFIED HYPERLIPIDEMIA 10/08/2011 SUNI BRAR DO K V04.81 Flu Dx (3 Yrs And Above, Im) 10/08/2011 YANI CESAR MD 272.4 OTHER AND UNSPECIFIED HYPERLIPIDEMIA 10/08/2011 YANI CESAR MD V04.81 Flu Dx (3 Yrs And Above, Im) 10/08/2011 YANI CESAR MD 272.4 OTHER AND UNSPECIFIED HYPERLIPIDEMIA 10/08/2011 YANI CESAR MD V04.81 Flu Dx (3 Yrs And Above, Im) 10/08/2011 YANI CESAR MD 272.4 OTHER AND UNSPECIFIED HYPERLIPIDEMIA 10/08/2011 YANI CESAR MD V04.81 Flu Dx (3 Yrs And Above, Im) 10/08/2011 YANI CESAR MD 272.4 OTHER AND UNSPECIFIED HYPERLIPIDEMIA 10/08/2011 YANI CESAR MD V04.81 Flu Dx (3 Yrs And Above, Im) 10/08/2011 272.4 OTHER AND UNSPECIFIED HYPERLIPIDEMIA 10/08/2011 V04.81 FLU DX (3 YRS AND ABOVE, IM) 01/27/2012 NEFTALI RACHEL APRN 536.3 GASTROPARESIS 01/27/2012 TALI FLOYD, YANI 536.3 GASTROPARESIS 01/27/2012 536.3 GASTROPARESIS 01/27/2012 536.3 GASTROPARESIS 01/27/2012 SUNI BRAR DO 536.3 GASTROPARESIS 01/27/2012 KERLINE ORO APRN 536.3 GASTROPARESIS 01/27/2012 SUNI BRAR DO 536.3 GASTROPARESIS 01/27/2012 536.3 GASTROPARESIS 01/27/2012 536.3 GASTROPARESIS 01/27/2012 536.3 GASTROPARESIS 01/27/2012 536.3 GASTROPARESIS 01/27/2012 SUNI BRAR DO 536.3 GASTROPARESIS 01/27/2012 TALI FLOYD, YANI 536.3 GASTROPARESIS 01/27/2012 TALI FLOYD, YANI 536.3 GASTROPARESIS 01/27/2012 TALI FLOYD, YANI 536.3 GASTROPARESIS 01/27/2012 TALI FLOYD, YANI 536.3 GASTROPARESIS 01/27/2012 536.3 GASTROPARESIS 03/10/2012 NEFTALI RACHEL APRN 724.5 BACKACHE UNSPECIFIED 03/10/2012 YANI CESAR MD 724.5 Backache Unspecified 03/10/2012 724.5 Backache Unspecified 03/10/2012 724.5 Backache Unspecified 03/10/2012 SUNI BRAR DO 724.5 Backache Unspecified 03/10/2012 KERLINE ORO APRN 724.5 Backache Unspecified 03/10/2012 SUNI BRAR DO 724.5 Backache Unspecified 03/10/2012 724.5 Backache Unspecified 03/10/2012 724.5 Backache Unspecified 03/10/2012 724.5 Backache Unspecified 03/10/2012 724.5 Backache Unspecified 03/10/2012 SUNI BRAR DO 724.5 Backache Unspecified 03/10/2012 YANI CESAR MD 724.5 Backache Unspecified 03/10/2012 YANI CESAR MD 724.5 Backache Unspecified 03/10/2012 YANI CESAR MD 724.5 Backache Unspecified 03/10/2012 YANI CESAR MD 724.5 Backache Unspecified 03/10/2012 724.5 BACKACHE UNSPECIFIED 04/07/2012 NEFTALI RACHEL APRN 528.9 MOUTH PAIN 04/07/2012 NEFTALI RACHEL APRN 782.3 EDEMA 04/07/2012 YANI CESAR MD 528.9 Mouth Pain 04/07/2012 YAIN CESAR MD 782.3 Edema 04/07/2012 528.9 Mouth Pain 04/07/2012 782.3 Edema 04/07/2012 528.9 Mouth Pain 04/07/2012 782.3 Edema 04/07/2012 BRAR DO, SUNI K 528.9 Mouth Pain 04/07/2012 BRAR DO, SUNI K 782.3 Edema 04/07/2012 SHORTY COOPER, KELRINE R 528.9 Mouth Pain 04/07/2012 LULU ORO APRNRICIA R 782.3 Edema 04/07/2012 BRAR DO, SUNI K 528.9 Mouth Pain 04/07/2012 BRAR DO, SUNI K 782.3 Edema 04/07/2012 528.9 Mouth Pain 04/07/2012 782.3 Edema 04/07/2012 528.9 Mouth Pain 04/07/2012 782.3 Edema 04/07/2012 528.9 Mouth Pain 04/07/2012 782.3 Edema 04/07/2012 528.9 Mouth Pain 04/07/2012 782.3 Edema 04/07/2012 BRAR DO, SUNI K 528.9 Mouth Pain 04/07/2012 BRAR DO, SUNI K 782.3 Edema 04/07/2012 YANI CESAR MD 528.9 Mouth Pain 04/07/2012 YANI CESAR MD 782.3 Edema 04/07/2012 YANI CESAR MD 528.9 Mouth Pain 04/07/2012 YANI CESAR MD 782.3 Edema 04/07/2012 YANI CESAR MD 528.9 Mouth Pain 04/07/2012 YANI CESAR MD 782.3 Edema 04/07/2012 YANI CESAR MD 528.9 Mouth Pain 04/07/2012 YANI CESAR MD 782.3 Edema 04/07/2012 528.9 MOUTH PAIN 04/07/2012 782.3 EDEMA 04/17/2012 NEFTALI RACHEL APRN 616.10 VAGINITIS AND VULVOVAGINITIS UNSPECIFIED 04/17/2012 YANI CESAR MD 616.10 Vaginitis And Vulvovaginitis Unspecified 04/17/2012 616.10 Vaginitis And Vulvovaginitis Unspecified 04/17/2012 616.10 Vaginitis And Vulvovaginitis Unspecified 04/17/2012 SUNI BRAR DO 616.10 Vaginitis And Vulvovaginitis Unspecified 04/17/2012 KERLINE ORO APRN 616.10 Vaginitis And Vulvovaginitis Unspecified 04/17/2012 SUNI BRAR DO 616.10 Vaginitis And Vulvovaginitis Unspecified 04/17/2012 616.10 Vaginitis And Vulvovaginitis Unspecified 04/17/2012 616.10 Vaginitis And Vulvovaginitis Unspecified 04/17/2012 616.10 Vaginitis And Vulvovaginitis Unspecified 04/17/2012 616.10 Vaginitis And Vulvovaginitis Unspecified 04/17/2012 SUNI BRAR DO 616.10 Vaginitis And Vulvovaginitis Unspecified 04/17/2012 YANI CESAR MD 616.10 Vaginitis And Vulvovaginitis Unspecified 04/17/2012 YANI CESAR MD 616.10 Vaginitis And Vulvovaginitis Unspecified 04/17/2012 YANI CESAR MD 616.10 Vaginitis And Vulvovaginitis Unspecified 04/17/2012 YANI CESAR MD 616.10 Vaginitis And Vulvovaginitis Unspecified 04/17/2012 616.10 VAGINITIS AND VULVOVAGINITIS UNSPECIFIED 06/10/2012 NEFTALI RACHEL APRN 692.6 CONTACT DERMATITIS AND OTHER ECZEMA DUE TO PLANTS (EXCEPT FOOD) 06/10/2012 YANI CESAR MD 692.6 Contact Dermatitis And Other Eczema Due To Plants (except Food) 06/10/2012 692.6 Contact Dermatitis And Other Eczema Due To Plants (except Food) 06/10/2012 692.6 Contact Dermatitis And Other Eczema Due To Plants (except Food) 06/10/2012 BRAR SUNI 692.6 Contact Dermatitis And Other Eczema Due To Plants (except Food) 06/10/2012 KERLINE ORO APRN 692.6 Contact Dermatitis And Other Eczema Due To Plants (except Food) 06/10/2012 SUNI BRAR DO 692.6 Contact Dermatitis And Other Eczema Due To Plants (except Food) 06/10/2012 692.6 Contact Dermatitis And Other Eczema Due To Plants (except Food) 06/10/2012 692.6 Contact Dermatitis And Other Eczema Due To Plants (except Food) 06/10/2012 692.6 Contact Dermatitis And Other Eczema Due To Plants (except Food) 06/10/2012 692.6 Contact Dermatitis And Other Eczema Due To Plants (except Food) 06/10/2012 SUNI BRAR DO 692.6 Contact Dermatitis And Other Eczema Due To Plants (except Food) 06/10/2012 YANI CESAR MD 692.6 Contact Dermatitis And Other Eczema Due To Plants (except Food) 06/10/2012 YANI CESAR MD 692.6 Contact Dermatitis And Other Eczema Due To Plants (except Food) 06/10/2012 YANI CESAR MD 692.6 Contact Dermatitis And Other Eczema Due To Plants (except Food) 06/10/2012 YANI CESAR MD 692.6 Contact Dermatitis And Other Eczema Due To Plants (except Food) 06/10/2012 692.6 CONTACT DERMATITIS AND OTHER ECZEMA DUE TO PLANTS (EXCEPT FOOD) 06/11/2012 Ot 250.02 DIAB MICHELLE WO COMPL, TYPE II OR UNSPEC TY 06/11/2012 Ot 276.9 ELECTROLYT/ FLUID DIS NEC 06/11/2012 Ot 692.9 DERMATITIS NOS 06/11/2012 Ot V15.81 HX OF PAST NONCOMPLIANCE 06/11/2012 Ot V58.67 LONG-TERM ( CURRENT) USE OF INSULIN 06/18/2012 Ot 625.3 DYSMENORRHEA 06/18/2012 Ot 625.9 FEM GENITAL SYMPTOMS NOS 07/11/2012 NEFTALI RACHEL APRN 625.3 DYSMENORRHEA 07/11/2012 NEFTALI RACHEL APRN 626.2 MENORRHAGIA 07/11/2012 NEFTALI RACHEL APRN V76.10 BREAST CANCER SCREENING 07/11/2012 NEFTALI RACHEL APRN V76.2 CERVICAL CANCER SCREENING (PAP SMEAR) 07/11/2012 YANI CESAR MD 625.3 DYSMENORRHEA 07/11/2012 YANI CESAR MD 626.2 Menorrhagia 07/11/2012 YANI CESAR MD V76.10 Breast Cancer Screening 07/11/2012 YANI CESAR MD V76.2 Cervical Cancer Screening (pap Smear) 07/11/2012 625.3 DYSMENORRHEA 07/11/2012 626.2 Menorrhagia 07/11/2012 V76.10 Breast Cancer Screening 07/11/2012 V76.2 Cervical Cancer Screening (pap Smear) 07/11/2012 625.3 DYSMENORRHEA 07/11/2012 626.2 Menorrhagia 07/11/2012 V76.10 Breast Cancer Screening 07/11/2012 V76.2 Cervical Cancer Screening (pap Smear) 07/11/2012 SUNI BRAR DO 625.3 DYSMENORRHEA 07/11/2012 SUNI BRAR DO K 626.2 Menorrhagia 07/11/2012 LAURA BRAR DOA K V76.10 Breast Cancer Screening 07/11/2012 SUNI BRAR DO K V76.2 Cervical Cancer Screening (pap Smear) 07/11/2012 KERLINE ORO APRN R 625.3 DYSMENORRHEA 07/11/2012 KERLINE ORO APRN R 626.2 Menorrhagia 07/11/2012 KERLINE ORO APRN R V76.10 Breast Cancer Screening 07/11/2012 KERLINE ORO APRN R V76.2 Cervical Cancer Screening (pap Smear) 07/11/2012 SUNI BRAR DO K 625.3 DYSMENORRHEA 07/11/2012 LAURA BRAR DOA K 626.2 Menorrhagia 07/11/2012 LAURA BRAR DOA K V76.10 Breast Cancer Screening 07/11/2012 LAURA BRAR DOA K V76.2 Cervical Cancer Screening (pap Smear) 07/11/2012 625.3 DYSMENORRHEA 07/11/2012 626.2 Menorrhagia 07/11/2012 V76.10 Breast Cancer Screening 07/11/2012 V76.2 Cervical Cancer Screening (pap Smear) 07/11/2012 625.3 DYSMENORRHEA 07/11/2012 626.2 Menorrhagia 07/11/2012 V76.10 Breast Cancer Screening 07/11/2012 V76.2 Cervical Cancer Screening (pap Smear) 07/11/2012 625.3 DYSMENORRHEA 07/11/2012 626.2 Menorrhagia 07/11/2012 V76.10 Breast Cancer Screening 07/11/2012 V76.2 Cervical Cancer Screening (pap Smear) 07/11/2012 625.3 DYSMENORRHEA 07/11/2012 626.2 Menorrhagia 07/11/2012 V76.10 Breast Cancer Screening 07/11/2012 V76.2 Cervical Cancer Screening (pap Smear) 07/11/2012 SUNI BRAR DO 625.3 DYSMENORRHEA 07/11/2012 SUNI BRAR DO 626.2 Menorrhagia 07/11/2012 SUNI BRAR DO V76.10 Breast Cancer Screening 07/11/2012 SUNI BRAR DO V76.2 Cervical Cancer Screening (pap Smear) 07/11/2012 TALI FLOYD, YANI 625.3 DYSMENORRHEA 07/11/2012 TALI FLOYD, YANI 626.2 Menorrhagia 07/11/2012 YANI CESAR MD V76.10 Breast Cancer Screening 07/11/2012 YANI CESAR MD V76.2 Cervical Cancer Screening (pap Smear) 07/11/2012 YANI CESAR MD 625.3 DYSMENORRHEA 07/11/2012 TALI FLOYD, YANI 626.2 Menorrhagia 07/11/2012 YANI CESAR MD V76.10 Breast Cancer Screening 07/11/2012 YANI CESAR MD V76.2 Cervical Cancer Screening (pap Smear) 07/11/2012 YANI CESAR MD 625.3 DYSMENORRHEA 07/11/2012 TALI FLOYD, YANI 626.2 Menorrhagia 07/11/2012 YANI CESAR MD V76.10 Breast Cancer Screening 07/11/2012 YANI CESAR MD V76.2 Cervical Cancer Screening (pap Smear) 07/11/2012 YANI CESAR MD 625.3 DYSMENORRHEA 07/11/2012 YANI CESAR MD 626.2 Menorrhagia 07/11/2012 YANI CESAR MD V76.10 Breast Cancer Screening 07/11/2012 YANI CESAR MD V76.2 Cervical Cancer Screening (pap Smear) 07/11/2012 625.3 DYSMENORRHEA 07/11/2012 626.2 MENORRHAGIA 07/11/2012 V76.10 BREAST CANCER SCREENING 07/11/2012 V76.2 CERVICAL CANCER SCREENING (PAP SMEAR) 08/14/2012 NEFTALI RACHEL APRN 218.0 SUBMUCOUS LEIOMYOMA OF UTERUS 08/14/2012 YANI CESAR MD 218.0 SUBMUCOUS LEIOMYOMA OF UTERUS 08/14/2012 218.0 SUBMUCOUS LEIOMYOMA OF UTERUS 08/14/2012 218.0 SUBMUCOUS LEIOMYOMA OF UTERUS 08/14/2012 SUNI BRAR DO 218.0 SUBMUCOUS LEIOMYOMA OF UTERUS 08/14/2012 KERLINE ORO APRN 218.0 SUBMUCOUS LEIOMYOMA OF UTERUS 08/14/2012 SUNI BRAR DO 218.0 SUBMUCOUS LEIOMYOMA OF UTERUS 08/14/2012 218.0 SUBMUCOUS LEIOMYOMA OF UTERUS 08/14/2012 218.0 SUBMUCOUS LEIOMYOMA OF UTERUS 08/14/2012 218.0 SUBMUCOUS LEIOMYOMA OF UTERUS 08/14/2012 218.0 SUBMUCOUS LEIOMYOMA OF UTERUS 08/14/2012 SUNI BRAR DO 218.0 SUBMUCOUS LEIOMYOMA OF UTERUS 08/14/2012 YANI CESAR MD 218.0 SUBMUCOUS LEIOMYOMA OF UTERUS 08/14/2012 YANI CESAR MD 218.0 SUBMUCOUS LEIOMYOMA OF UTERUS 08/14/2012 YANI CESAR MD 218.0 SUBMUCOUS LEIOMYOMA OF UTERUS 08/14/2012 YANI CESAR MD 218.0 SUBMUCOUS LEIOMYOMA OF UTERUS 08/14/2012 218.0 SUBMUCOUS LEIOMYOMA OF UTERUS 10/28/2012 Ot 625.3 DYSMENORRHEA 10/28/2012 Ot 625.9 FEM GENITAL SYMPTOMS NOS 12/28/2012 528.9 MOUTH PAIN 12/28/2012 SUNI BRAR DO 528.9 MOUTH PAIN 12/28/2012 EKRLINE ORO APRN 528.9 MOUTH PAIN 12/28/2012 SUNI BRAR DO 528.9 MOUTH PAIN 12/28/2012 528.9 MOUTH PAIN 12/28/2012 528.9 MOUTH PAIN 12/28/2012 528.9 MOUTH PAIN 12/28/2012 528.9 MOUTH PAIN 12/28/2012 SUNI BRAR DO 528.9 MOUTH PAIN 12/28/2012 YANI CESAR MD 528.9 MOUTH PAIN 12/28/2012 YANI CESAR MD 528.9 MOUTH PAIN 12/28/2012 YANI CESAR MD 528.9 MOUTH PAIN 12/28/2012 YANI CESAR MD 528.9 MOUTH PAIN 01/02/2013 KERLINE ORO APRN 682.2 SKIN ABSCESS OF THE TRUNK - GROIN 01/02/2013 SUNI BRAR DO 682.2 SKIN ABSCESS OF THE TRUNK - GROIN 01/02/2013 682.2 SKIN ABSCESS OF THE TRUNK - GROIN 01/02/2013 682.2 SKIN ABSCESS OF THE TRUNK - GROIN 01/02/2013 682.2 SKIN ABSCESS OF THE TRUNK - GROIN 01/02/2013 682.2 SKIN ABSCESS OF THE TRUNK - GROIN 01/02/2013 SUNI BRAR DO 682.2 SKIN ABSCESS OF THE TRUNK - GROIN 01/02/2013 YANI CESAR MD 682.2 SKIN ABSCESS OF THE TRUNK - GROIN 01/02/2013 YANI CESAR MD 682.2 SKIN ABSCESS OF THE TRUNK - GROIN 01/02/2013 YANI CESAR MD 682.2 SKIN ABSCESS OF THE TRUNK - GROIN 01/02/2013 YANI CESAR MD 682.2 SKIN ABSCESS OF THE TRUNK - GROIN 01/15/2013 SUNI BRAR DO 682.9 CELLULITIS AND ABSCESS OF UNSPECIFIED SITES 01/15/2013 682.9 CELLULITIS AND ABSCESS OF UNSPECIFIED SITES 01/15/2013 682.9 CELLULITIS AND ABSCESS OF UNSPECIFIED SITES 01/15/2013 682.9 CELLULITIS AND ABSCESS OF UNSPECIFIED SITES 01/15/2013 682.9 CELLULITIS AND ABSCESS OF UNSPECIFIED SITES 01/15/2013 SUNI BRAR DO 682.9 CELLULITIS AND ABSCESS OF UNSPECIFIED SITES 01/15/2013 YANI CESAR MD 682.9 CELLULITIS AND ABSCESS OF UNSPECIFIED SITES 01/15/2013 YANI CESAR MD 682.9 CELLULITIS AND ABSCESS OF UNSPECIFIED SITES 01/15/2013 YANI CESAR MD 682.9 CELLULITIS AND ABSCESS OF UNSPECIFIED SITES 01/15/2013 YANI CESAR MD 682.9 CELLULITIS AND ABSCESS OF UNSPECIFIED SITES 02/09/2013 525.9 TOOTH PAIN 02/09/2013 525.9 TOOTH PAIN 02/09/2013 525.9 TOOTH PAIN 02/09/2013 ZONIA CONTRERAS SUNI K 525.9 TOOTH PAIN 02/09/2013 YANI CESAR MD 525.9 TOOTH PAIN 02/09/2013 YANI CESAR MD 525.9 TOOTH PAIN 02/09/2013 YANI CESAR MD 525.9 TOOTH PAIN 02/09/2013 YANI CESAR MD 525.9 TOOTH PAIN 02/09/2013 Ot 525.9 DENTAL DISORDER NOS 05/17/2013 338.11 PAIN - ACUTE PAIN DUE TO TRAUMA 05/17/2013 724.2 BACK PAIN, LOWER 05/17/2013 E917.4 STRIKING AGAINST OR STRUCK ACCIDENTALLY BY OTHER STATIONARY OBJECT WITHOUT SUBSEQUENT FALL 05/17/2013 SUNI BRAR DO K 338.11 PAIN - ACUTE PAIN DUE TO TRAUMA 05/17/2013 SUNI BRAR DO K 724.2 BACK PAIN, LOWER 05/17/2013 SUNI BRAR DO K E917.4 STRIKING AGAINST OR STRUCK ACCIDENTALLY BY OTHER STATIONARY OBJECT WITHOUT SUBSEQUENT FALL 05/17/2013 YANI CESAR MD 338.11 PAIN - ACUTE PAIN DUE TO TRAUMA 05/17/2013 YANI CESAR MD 724.2 BACK PAIN, LOWER 05/17/2013 YANI CESAR MD E917.4 STRIKING AGAINST OR STRUCK ACCIDENTALLY BY OTHER STATIONARY OBJECT WITHOUT SUBSEQUENT FALL 05/17/2013 YANI CESAR MD 338.11 PAIN - ACUTE PAIN DUE TO TRAUMA 05/17/2013 YANI CESAR MD 724.2 BACK PAIN, LOWER 05/17/2013 YANI CESAR MD E917.4 STRIKING AGAINST OR STRUCK ACCIDENTALLY BY OTHER STATIONARY OBJECT WITHOUT SUBSEQUENT FALL 05/17/2013 YANI CESAR MD 338.11 PAIN - ACUTE PAIN DUE TO TRAUMA 05/17/2013 YANI CESAR MD 724.2 BACK PAIN, LOWER 05/17/2013 YANI CESAR MD E917.4 STRIKING AGAINST OR STRUCK ACCIDENTALLY BY OTHER STATIONARY OBJECT WITHOUT SUBSEQUENT FALL 05/17/2013 TALI FLOYD, YANI 338.11 PAIN - ACUTE PAIN DUE TO TRAUMA 05/17/2013 YANI CESAR MD 724.2 BACK PAIN, LOWER 05/17/2013 TALI FLOYD, YANI E917.4 STRIKING AGAINST OR STRUCK ACCIDENTALLY BY OTHER STATIONARY OBJECT WITHOUT SUBSEQUENT FALL 08/07/2013 SUNI BRAR DO 564.00 CONSTIPATION 08/07/2013 YANI CESAR MD 564.00 CONSTIPATION 08/07/2013 YANI CESAR MD 564.00 CONSTIPATION 08/07/2013 YANI CESAR MD 564.00 CONSTIPATION 08/07/2013 TALI FLOYD, YANI 564.00 CONSTIPATION 08/08/2013 KAROLINA LEYEN L Ot 218.9 UTERINE LEIOMYOMA NOS 08/08/2013 DOMINIK LEY L Ot 285.9 ANEMIA NOS 08/08/2013 DOMINIK LEY L Ot 599.0 URIN TRACT INFECTION NOS 08/08/2013 DOMINIK LEY L Ot 789.09 ABDOMINAL PAIN, OTHER SPECIFIED SITE 09/18/2013 LAURA BRAR DOA K Ot 218.9 UTERINE LEIOMYOMA NOS 09/18/2013 LAURA BRAR DOA K Ot 238.71 ESSENTIAL THROMBOCYTHEMIA 09/18/2013 LAURA BRAR DOA K Ot 250.00 DIAB MICHELLE WO COMPL, TYPE II OR UNSPEC TY 09/18/2013 LAURA BRAR DOA K Ot 280.0 CHR BLOOD LOSS ANEMIA 09/18/2013 ZONIA CONTRERAS SUNI K Ot 300.00 ANXIETY STATE NOS 09/18/2013 LAURA BRAR DOA K Ot 305.1 TOBACCO USE DISORDER 09/18/2013 LAURA BRAR DOA K Ot 305.70 AMPHETAMINE ABUSE-UNSPEC 09/18/2013 LAURA BRAR DOA K Ot 458.9 HYPOTENSION NOS 09/18/2013 LAURA BRAR DOA K Ot 786.09 RESPIRATORY ABNORM NEC 09/18/2013 LAURA BRAR DOA K Ot 786.59 CHEST PAIN NEC 09/18/2013 LAURA BRAR DOA K Ot V03.82 PROPHYLACTIC VACC AGAINST STREPTOCOCCUS 09/18/2013 LAURA BRAR DOA K Ot V17.3 FAM HX-ISCHEM HEART DIS 09/18/2013 LAURA BRAR DOA K Ot V58.67 LONG-TERM (CURRENT) USE OF INSULIN 10/09/2013 YANI CESAR MD 357.2 POLYNEUROPATHY IN DIABETES 10/09/2013 YANI CESAR MD 357.2 POLYNEUROPATHY IN DIABETES 10/09/2013 YANI CESAR MD 357.2 POLYNEUROPATHY IN DIABETES 10/09/2013 YANI CESAR MD 357.2 POLYNEUROPATHY IN DIABETES 02/26/2014 YANI CESAR MD 250.02 DIABETES MELLITUS WITHOUT MENTION OF COMPLICATION TYPE II OR UNSPECIFIED TYPE UNCONTROLLED 02/26/2014 YANI CESAR MD 461.9 ACUTE SINUSITIS UNSPECIFIED 02/26/2014 AYNI CESAR MD 250.02 DIABETES MELLITUS WITHOUT MENTION OF COMPLICATION TYPE II OR UNSPECIFIED TYPE UNCONTROLLED 02/26/2014 YANI CESAR MD 461.9 ACUTE SINUSITIS UNSPECIFIED 02/26/2014 YANI CESAR MD 250.02 DIABETES MELLITUS WITHOUT MENTION OF COMPLICATION TYPE II OR UNSPECIFIED TYPE UNCONTROLLED 02/26/2014 YANI CESAR MD 461.9 ACUTE SINUSITIS UNSPECIFIED 09/25/2014 SENDY CHU DO Ot 250.00 DIAB MICHELLE WO COMPL, TYPE II OR UNSPEC TY 09/25/2014 SENDY CHU DO Ot 285.9 ANEMIA NOS 09/25/2014 SENDY CHU DO Ot 729.5 PAIN IN LIMB 10/01/2014 YANI CESAR MD 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) 06/15/2016 Ot 626.2 EXCESSIVE MENSTRUATION 06/15/2016 Ot 793.82 INCONCLUSIVE MAMMOGRAM 06/15/2016 Ot V76.12 OTH SCREEN MAMMO-MALIGN NEOPLASM OF СЕРГЕЙ 06/15/2016 Ot 553.20 VENTRAL HERNIA NOS 06/15/2016 Ot 789.33 ABDOMINAL/ PELVIC SWELLING,MASS/LUMP,RT L 06/15/2016 YANI CESAR MD Ot 285.9 ANEMIA NOS 06/15/2016 Ot 626.2 EXCESSIVE MENSTRUATION 06/15/2016 Ot 793.82 INCONCLUSIVE MAMMOGRAM 06/15/2016 Ot V76.12 OTH SCREEN MAMMO-MALIGN NEOPLASM OF СЕРГЕЙ 06/15/2016 Ot 553.20 VENTRAL HERNIA NOS 06/15/2016 Ot 789.33 ABDOMINAL/ PELVIC SWELLING,MASS/LUMP,RT L 06/15/2016 YANI CESAR MD Ot 285.9 ANEMIA NOS 06/15/2016 Ot 626.2 EXCESSIVE MENSTRUATION 06/15/2016 Ot 793.82 INCONCLUSIVE MAMMOGRAM 06/15/2016 Ot V76.12 OTH SCREEN MAMMO-MALIGN NEOPLASM OF СЕРГЕЙ 06/15/2016 Ot 553.20 VENTRAL HERNIA NOS 06/15/2016 Ot 789.33 ABDOMINAL/ PELVIC SWELLING,MASS/LUMP,RT L 06/15/2016 YANI CESAR MD Ot 285.9 ANEMIA NOS 06/15/2016 Ot 626.2 EXCESSIVE MENSTRUATION 06/15/2016 Ot 793.82 INCONCLUSIVE MAMMOGRAM 06/15/2016 Ot V76.12 OTH SCREEN MAMMO-MALIGN NEOPLASM OF СЕРГЕЙ 06/15/2016 Ot 553.20 VENTRAL HERNIA NOS 06/15/2016 Ot 789.33 ABDOMINAL/ PELVIC SWELLING,MASS/LUMP,RT L 06/15/2016 YANI CESAR MD Ot 285.9 ANEMIA NOS 06/16/2016 NEFTALI RODRIGUEZ MD Ot D47.3 ESSENTIAL (HEMORRHAGIC) THROMBOCYTHEMIA 06/16/2016 NEFTALI RODRIGUEZ MD Ot D50.9 IRON DEFICIENCY ANEMIA, UNSPECIFIED 06/16/2016 NEFTALI RODRIGUEZ MD Ot E11.621 TYPE 2 DIABETES MELLITUS WITH FOOT ULCER 06/16/2016 NEFTALI RODRIGUEZ MD Ot E11.65 TYPE 2 DIABETES MELLITUS WITH HYPERGLYCE 06/16/2016 NEFTALI RODRIGUEZ MD Ot F17.210 NICOTINE DEPENDENCE, CIGARETTES, UNCOMPL 06/16/2016 NEFTALI RODRIGUEZ MD Ot F41.9 ANXIETY DISORDER, UNSPECIFIED 06/16/2016 NEFTALI RODRIGUEZ MD Ot G62.9 POLYNEUROPATHY, UNSPECIFIED 06/16/2016 NEFTALI RODRIGUEZ MD Ot I70.262 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 W 06/16/2016 NEFTALI RODRIGUEZ MD Ot L97.502 NON-PRS CHRONIC ULCER OT PRT UNSP FOOT 06/16/2016 NEFTALI RODRIGUEZ MD Ot S60.021A CONTUSION OF RIGHT INDEX FINGER W/O MARCO 06/16/2016 NEFTALI RODRIGUEZ MD Ot X58.XXXA EXPOSURE TO OTHER SPECIFIED FACTORS, INI 06/16/2016 NEFTALI RODRIGUEZ MD Ot Z91.19 PATIENT'S NONCOMPLIANCE W OT MEDICAL TR 07/02/2016 YANI CESAR MD, Ot A41.9 SEPSIS, UNSPECIFIED ORGANISM 07/02/2016 YANI CESAR MD, Ot D47.3 ESSENTIAL (HEMORRHAGIC) THROMBOCYTHEMIA 07/02/2016 YANI CESAR MD, Ot D64.9 ANEMIA, UNSPECIFIED 07/02/2016 YANI CESAR MD Ot E11.621 TYPE 2 DIABETES MELLITUS WITH FOOT ULCER 07/02/2016 YANI CESAR MD, Ot E87.1 HYPO-OSMOLALITY AND HYPONATREMIA 07/02/2016 YANI CESAR MD, Ot F17.210 NICOTINE DEPENDENCE, CIGARETTES, UNCOMPL 07/02/2016 YANI CESAR MD, Ot F41.9 ANXIETY DISORDER, UNSPECIFIED 07/02/2016 YANI CESAR MD, Ot I70.202 UNSP ATHSCL [place] ARTERIES OF EXTREMITI 07/02/2016 YANI CESAR MD Ot I82.412 ACUTE EMBOLISM AND THROMBOSIS OF LEFT FE 07/02/2016 YANI CESAR MD Ot L03.115 CELLULITIS OF RIGHT LOWER LIMB 07/02/2016 YANI CESAR MD Ot L97.519 NON-PRS CHRONIC ULCER [facility] PRT RIGHT FOOT 07/02/2016 YANI CESAR MD, Ot Z79.4 DIRECT MARKETING INTERN (CURRENT) USE OF INSULIN 07/02/2016 YANI CESAR MD Ot Z86.718 PERSONAL HISTORY OF OTHER VENOUS THROMBO 07/21/2016 VLAD CONTRERAS SENDY K Ot E11.9 TYPE 2 DIABETES MELLITUS WITHOUT COMPLIC 07/21/2016 VLAD CONTRERAS SENDY K Ot F17.210 NICOTINE DEPENDENCE, CIGARETTES, UNCOMPL 07/21/2016 VLAD CONTRERAS SENDY K Ot G62.9 POLYNEUROPATHY, UNSPECIFIED 07/21/2016 VLAD CONTRERAS SENDY K Ot I70.262 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 W 07/21/2016 VLAD CONTRERAS SENDY K Ot I74.3 EMBOLISM AND THROMBOSIS OF ARTERIES OF T 07/21/2016 VLAD CONTRERAS SENDY K Ot L03.116 CELLULITIS OF LEFT LOWER LIMB 07/21/2016 VLAD CONTRERAS SENDY K Ot Z79.4 DIRECT MARKETING INTERN (CURRENT) USE OF INSULIN 07/27/2016 VLAD CONTRERAS SENDY K Ot E11.9 TYPE 2 DIABETES MELLITUS WITHOUT COMPLIC 07/27/2016 SENDY CHU DO Ot F17.210 NICOTINE DEPENDENCE, CIGARETTES, UNCOMPL 07/27/2016 SENDY CHU DO Ot G62.9 POLYNEUROPATHY, UNSPECIFIED 07/27/2016 SENDY CHU DO Ot I70.262 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 W 07/27/2016 SENDY CHU DO Ot I74.3 EMBOLISM AND THROMBOSIS OF ARTERIES OF T 07/27/2016 SENDY CHU DO Ot L03.116 CELLULITIS OF LEFT LOWER LIMB 07/27/2016 VLAD CONTRERAS SENDY Granger Ot Z79.4 DIRECT MARKETING INTERN (CURRENT) USE OF INSULIN 08/06/2016 YANI CESAR MD Ot 285.9 ANEMIA NOS 08/07/2016 YANI CESAR MD, Ot 285.9 ANEMIA NOS 08/09/2016 YANI CESAR MD, Ot 285.9 ANEMIA NOS 08/10/2016 YANI CESAR MD, Ot D50.9 IRON DEFICIENCY ANEMIA, UNSPECIFIED 08/10/2016 YANI CESAR MD Ot E11.40 TYPE 2 DIABETES MELLITUS WITH DIABETIC N 08/10/2016 YANI CESAR MD Ot E87.79 OTHER FLUID OVERLOAD 08/10/2016 YANI CESAR MD, Ot F17.210 NICOTINE DEPENDENCE, CIGARETTES, UNCOMPL 08/10/2016 YANI CESAR MD, Ot F41.9 ANXIETY DISORDER, UNSPECIFIED 08/10/2016 YANI CESAR MD, Ot J44.9 CHRONIC OBSTRUCTIVE PULMONARY DISEASE, U 08/10/2016 YANI CESAR MD, Ot J90 PLEURAL EFFUSION, NOT ELSEWHERE CLASSIFI 08/10/2016 YANI CESAR MD, Ot M86.9 OSTEOMYELITIS, UNSPECIFIED 08/10/2016 YANI CESAR MD, Ot T36.95XA ADVERSE EFFECT OF UNSP SYSTEMIC ANTIBIOT 08/10/2016 YANI CESAR MD, Ot Z79.4 NURSING HOME (CURRENT) USE OF INSULIN 08/30/2016 DARBY MCKENNA MD, Ot E11.52 TYPE 2 DIABETES W DIABETIC PERIPHERAL AN 08/30/2016 DARBY MCKENNA MD, Ot E11.622 TYPE 2 DIABETES MELLITUS WITH OTHER SKIN 08/30/2016 DARBY MCKENNA MD, Ot I70.262 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 W 08/30/2016 DARBY MCKENNA MD, Ot L97.223 NON-PRESSURE CHRONIC ULCER OF LEFT CALF 08/30/2016 DARBY MCKENNA MD, Ot T65.222A TOXIC EFFECT OF TOBACCO CIGARETTES, SELF 08/30/2016 DARBY MCKENNA MD, Ot T81.31XA DISRUPTION OF EXTERNAL OPERATION (SURGIC 09/08/2016 DABRY MCKENNA MD, Ot E11.52 TYPE 2 DIABETES W DIABETIC PERIPHERAL AN 09/08/2016 DARBY MCKENNA MD, Ot E11.622 TYPE 2 DIABETES MELLITUS WITH OTHER SKIN 09/08/2016 DARBY MCKENNA MD, Ot I70.262 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 W 09/08/2016 DARBY MCKENNA MD, Ot L97.223 NON-PRESSURE CHRONIC ULCER OF LEFT CALF 09/08/2016 DARBY MCKENNA MD, Ot T81.31XA DISRUPTION OF EXTERNAL OPERATION (SURGIC 09/08/2016 DARBY MCKENNA MD, Ot E11.52 TYPE 2 DIABETES W DIABETIC PERIPHERAL AN 09/08/2016 DARBY MCKENNA MD, Ot E11.622 TYPE 2 DIABETES MELLITUS WITH OTHER SKIN 09/08/2016 DARBY MCKENNA MD, Ot I70.262 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 W 09/08/2016 DARBY MCKENNA MD, Ot L97.223 NON-PRESSURE CHRONIC ULCER OF LEFT CALF 09/08/2016 DARBY MCKENNA MD, Ot T81.31XA DISRUPTION OF EXTERNAL OPERATION (SURGIC 09/08/2016 DARBY MCKENNA MD, Ot E11.52 TYPE 2 DIABETES W DIABETIC PERIPHERAL AN 09/08/2016 DARBY MCKENNA MD, Ot E11.622 TYPE 2 DIABETES MELLITUS WITH OTHER SKIN 09/08/2016 DARBY MCKENNA MD, Ot I70.262 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 W 09/08/2016 DARBY MCKENNA MD, Ot L97.223 NON-PRESSURE CHRONIC ULCER OF LEFT CALF 09/08/2016 DARBY MCKENNA MD, Ot T81.31XA DISRUPTION OF EXTERNAL OPERATION (SURGIC 09/08/2016 DARBY MCKENNA MD, Ot E11.52 TYPE 2 DIABETES W DIABETIC PERIPHERAL AN 09/08/2016 DARBY MCKENNA MD, Ot E11.622 TYPE 2 DIABETES MELLITUS WITH OTHER SKIN 09/08/2016 DARBY MCKENNA MD, Ot I70.262 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 W 09/08/2016 DARBY MCKENNA MD, Ot L97.223 NON-PRESSURE CHRONIC ULCER OF LEFT CALF 09/08/2016 DARBY MCKENNA MD, Ot T81.31XA DISRUPTION OF EXTERNAL OPERATION (SURGIC 09/14/2016 Ot 626.2 EXCESSIVE MENSTRUATION 09/14/2016 Ot 793.82 INCONCLUSIVE MAMMOGRAM 09/14/2016 Ot V76.12 OTH SCREEN MAMMO-MALIGN NEOPLASM OF СЕРГЕЙ 09/14/2016 Ot 553.20 VENTRAL HERNIA NOS 09/14/2016 Ot 789.33 ABDOMINAL/ PELVIC SWELLING,MASS/LUMP,RT L 09/14/2016 YANI CESAR MD Ot 285.9 ANEMIA NOS 09/14/2016 DARBY MCKENNA MD Ot E11.52 TYPE 2 DIABETES W DIABETIC PERIPHERAL AN 09/14/2016 DARBY MCKENNA MD, Ot E11.622 TYPE 2 DIABETES MELLITUS WITH OTHER SKIN 09/14/2016 DARBY MCKENNA MD Ot I70.262 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 W 09/14/2016 DARBY MCKENNA MD, Ot L97.223 NON-PRESSURE CHRONIC ULCER OF LEFT CALF 09/14/2016 DARBY MCKENNA MD Ot T65.222A TOXIC EFFECT OF TOBACCO CIGARETTES, SELF 09/14/2016 DARBY MCKENNA MD Ot T81.31XA DISRUPTION OF EXTERNAL OPERATION (SURGIC 10/13/2016 Ot 626.2 EXCESSIVE MENSTRUATION 10/13/2016 Ot 793.82 INCONCLUSIVE MAMMOGRAM 10/13/2016 Ot V76.12 OTH SCREEN MAMMO-MALIGN NEOPLASM OF СЕРГЕЙ 10/13/2016 Ot 553.20 VENTRAL HERNIA NOS 10/13/2016 Ot 789.33 ABDOMINAL/ PELVIC SWELLING,MASS/LUMP,RT L 10/13/2016 YANI CESAR MD Ot 285.9 ANEMIA NOS 10/13/2016 DARBY MCKENNA MD Ot E11.52 TYPE 2 DIABETES W DIABETIC PERIPHERAL AN 10/13/2016 DARBY MCKENNA MD, Ot E11.622 TYPE 2 DIABETES MELLITUS WITH OTHER SKIN 10/13/2016 DARBY MCKENNA MD Ot I70.262 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 W 10/13/2016 DARBY MCKENNA MD Ot L97.223 NON-PRESSURE CHRONIC ULCER OF LEFT CALF 10/13/2016 DARBY MCKENNA MD Ot T65.222A TOXIC EFFECT OF TOBACCO CIGARETTES, SELF 10/13/2016 DARBY MCKENNA MD Ot T81.31XA DISRUPTION OF EXTERNAL OPERATION (SURGIC 10/13/2016 DARBY MCKENNA MD Ot E11.52 TYPE 2 DIABETES W DIABETIC PERIPHERAL AN 10/13/2016 DARBY MCKENNA MD, Ot E11.622 TYPE 2 DIABETES MELLITUS WITH OTHER SKIN 10/13/2016 DARBY MCKENNA MD Ot I70.262 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 W 10/13/2016 DARBY MCKENNA MD Ot L97.223 NON-PRESSURE CHRONIC ULCER OF LEFT CALF 10/13/2016 DARBY MCKENNA MD Ot T65.222A TOXIC EFFECT OF TOBACCO CIGARETTES, SELF 10/13/2016 DARBY MCKENNA MD, Ot T81.31XA DISRUPTION OF EXTERNAL OPERATION (SURGIC 11/06/2016 VLAD DO, SENDY K Ot A41.9 SEPSIS, UNSPECIFIED ORGANISM 11/06/2016 VLAD DO, SENDY K Ot E11.40 TYPE 2 DIABETES MELLITUS WITH DIABETIC N 11/06/2016 VLAD DO SENDY K Ot E11.621 TYPE 2 DIABETES MELLITUS WITH FOOT ULCER 11/06/2016 VLAD DO, SENDY K Ot F15.10 OTHER STIMULANT ABUSE, UNCOMPLICATED 11/06/2016 VLAD DO, SENDY K Ot F17.210 NICOTINE DEPENDENCE, CIGARETTES, UNCOMPL 11/06/2016 VLAD DO, SENDY K Ot J44.9 CHRONIC OBSTRUCTIVE PULMONARY DISEASE, U 11/06/2016 VLAD DO, SENDY K Ot L03.116 CELLULITIS OF LEFT LOWER LIMB 11/06/2016 VLAD DO SENDY K Ot Z79.4 NURSING HOME (CURRENT) USE OF INSULIN 11/07/2016 VLAD DO SENDY K Ot A41.9 SEPSIS, UNSPECIFIED ORGANISM 11/07/2016 VLAD DO, SENDY K Ot E11.40 TYPE 2 DIABETES MELLITUS WITH DIABETIC N 11/07/2016 VLAD DO, SENDY K Ot E11.621 TYPE 2 DIABETES MELLITUS WITH FOOT ULCER 11/07/2016 VLAD DO, SENDY K Ot F15.10 OTHER STIMULANT ABUSE, UNCOMPLICATED 11/07/2016 VLAD DO, SENDY K Ot F17.210 NICOTINE DEPENDENCE, CIGARETTES, UNCOMPL 11/07/2016 VLAD DO SENDY K Ot J44.9 CHRONIC OBSTRUCTIVE PULMONARY DISEASE, U 11/07/2016 VLAD DO, SENDY K Ot L03.116 CELLULITIS OF LEFT LOWER LIMB 11/07/2016 SENDY CHU DO Ot Z79.4 DIRECT MARKETING INTERN (CURRENT) USE OF INSULIN 12/30/2017 TALI FLOYD, YANI Adhikari Ot D64.9 ANEMIA, UNSPECIFIED 12/30/2017 TALI FLOYD, YANI Adhikari Ot D64.9 ANEMIA, UNSPECIFIED 02/01/2018 YANI CESAR MD, Ot D64.9 ANEMIA, UNSPECIFIED 03/29/2018 TALI FLOYD, YANI Adhikari Ot D64.9 ANEMIA, UNSPECIFIED 03/30/2018 YANI CESAR MD, Ot D64.9 ANEMIA, UNSPECIFIED Procedures Code Description [place] [address] ROUTINE VENIPUNCTURE 12/18/2012 97462 A1C (IN-HOUSE) 12/18/2012 38860 MICRO ALBUMIN-IN HOUSE 12/18/2012 73429 CMP 12/18/2012 31253 LIPID PANEL 12/18/2012 [id number] GFR CALC (RESULT ONLY) 12/18/2012 61374 MICROALBUMIN 12/19/2012 28817 THERAPUTIC INJ SQ/IM 12/28/2012 J1885 TORADOL INJ 12/28/2012 00784 CULTURE WOUND (AEROBIC) 01/02/2013 31108 CULTURE NASAL 02/01/2013 55190 A1C (IN-HOUSE) 03/29/2013 19015 XRAY LUMBAR SPINE 2 OR 3 VIEWS 05/17/2013 54796 THERAPUTIC INJ SQ/IM 05/17/2013 J1885 TORADOL PER 15 MG, INJ KETOROLAC TROMETHAMINE 05/17/2013 Obstetric DooleyMiriam 05/21/2013 13429 A1C (IN-HOUSE) 10/09/2013 27434 A1C (IN-HOUSE) 02/26/2014 68456 MICRO ALBUMIN-IN HOUSE 02/26/2014 57161 ROUTINE VENIPUNCTURE 09/23/2014 51822 A1C (IN-HOUSE) 09/23/2014 18359 CMP 09/23/2014 [id number] GFR CALC (RESULT ONLY) 09/23/2014 73947 ROUTINE VENIPUNCTURE 10/01/2014 23425 MICRO ALBUMIN-IN HOUSE 10/01/2014 30064 CBC 10/01/2014 75782 MICROALBUMIN 10/01/2014 Results Test Result Range Complete blood count (CBC) with automated white blood cell (WBC) differential - 07/01/16 18:43 Blood leukocytes automated count (number/volume) 21.9 10*3/uL 4.3-11.0 Blood erythrocytes automated count (number/volume) 2.73 10*6/uL 4.35-5.85 Venous blood hemoglobin measurement (mass/volume) 5.8 g/dL 11.5-16.0 Blood hematocrit (volume fraction) 20 % 35-52 Automated erythrocyte mean corpuscular volume 74 [foz_us] 80-99 Automated erythrocyte mean corpuscular hemoglobin (mass per erythrocyte) 21 pg 25-34 Automated erythrocyte mean corpuscular hemoglobin concentration measurement ( mass/volume) 29 g/dL 32-36 Automated erythrocyte distribution width ratio 29.1 % 10.0-14.5 Automated blood platelet count (count/volume) 1412 10*3/uL 130-400 Automated blood platelet mean volume measurement 9.4 [foz_us] 7.4-10.4 Automated blood neutrophils/100 leukocytes 84 % 42-75 Automated blood lymphocytes/100 leukocytes 9 % 12-44 Blood monocytes/100 leukocytes 6 % 0-12 Automated blood eosinophils/100 leukocytes 1 % 0-10 Automated blood basophils/100 leukocytes 1 % 0-10 Blood neutrophils automated count (number/volume) 18.3 10*3 1.8-7.8 Blood lymphocytes automated count (number/volume) 2.1 10*3 1.0-4.0 Blood monocytes automated count (number/volume) 1.2 10*3 0.0-1.0 Automated eosinophil count 0.2 10*3/uL 0.0-0.3 Automated blood basophil count (count/volume) 0.1 10*3/uL 0.0-0.1 Blood lactic acid measurement (moles/volume) - 07/01/16 18:43 Blood lactic acid measurement (moles/volume) 1.6 mmol/L 0.5-2.0 Comprehensive metabolic panel - 07/01/16 18:43 Serum or plasma sodium measurement (moles/volume) 132 mmol/L 135-145 Serum or plasma potassium measurement (moles/volume) 3.9 mmol/L 3.6-5.0 Serum or plasma chloride measurement (moles/volume) 96 mmol/L 98-107 Carbon dioxide 26 mmol/L 21-32 Serum or plasma anion gap determination (moles/volume) 10 mmol/L 5-14 Serum or plasma urea nitrogen measurement (mass/volume) 6 mg/dL 7-18 Serum or plasma creatinine measurement (mass/volume) 0.63 mg/dL 0.60-1.30 Serum or plasma urea nitrogen/creatinine mass ratio 10 NRG Serum or plasma creatinine measurement with calculation of estimated glomerular filtration rate > NRG Serum or plasma glucose measurement (mass/volume) 223 mg/dL 70-105 Serum or plasma calcium measurement (mass/volume) 8.8 mg/dL 8.5-10.1 Serum or plasma total bilirubin measurement (mass/volume) 0.3 mg/dL 0.1-1.0 Serum or plasma alkaline phosphatase measurement (enzymatic activity/volume) 84 U/L 40-136 Serum or plasma aspartate aminotransferase measurement (enzymatic activity/ volume) 8 U/L 5-34 Serum or plasma alanine aminotransferase measurement (enzymatic activity/volume ) < U/L 0-55 Serum or plasma protein measurement (mass/volume) 6.6 g/dL 6.4-8.2 Serum or plasma albumin measurement (mass/volume) 3.4 g/dL 3.2-4.5 PT panel in platelet poor plasma by coagulation assay - 07/01/16 18:43 Prothrombin time (PT) in platelet poor plasma by coagulation assay 14.3 s 12.2-14.7 INR in platelet poor plasma or blood by coagulation assay 1.1 0.8-1.4 Activated partial thromboplastin time (aPTT) in platelet poor plasma bycoagulation assay - 07/01/16 18:43 Activated partial thromboplastin time (aPTT) in platelet poor plasma bycoagulation assay 29 s 24-35 Blood manual differential performed detection - 07/01/16 18:43 Blood monocytes/100 leukocytes 4 % NRG Manual blood segmented neutrophils/100 leukocytes 84 % NRG Blood band neutrophils/100 leukocytes 0 % NRG Manual blood lymphocytes/100 leukocytes 9 % NRG Manual eosinophils/100 leukocytes in nose 3 % NRG Manual blood basophils/100 leukocytes 0 % NRG Blood polychromasia detection by light microscopy SLIGHT NRG Blood anisocytosis detection by light microscopy MODERATE NRG Manual blood nucleated erythrocytes/100 leukocytes ratio 1 NRG Blood hypochromia detection by light microscopy SLIGHT NRG Blood microcytes detection by light microscopy SLIGHT NRG RED CELLS LEUKO REDUCED AS1 - 07/01/16 18:43 RED CELLS LEUKO REDUCED AS1 TRANSFUSED 07/01/162024 NRG Blood type T Indirect antibody screen panel - 07/01/16 18:43 ABO+Rh group AN NRG Transfusion band number [id number] NRG Blood group antibody screen NEGATIVE NRG Bacterial blood culture - 07/01/16 18:43 Bacterial blood culture NG NRG Bacterial blood culture - 07/01/16 19:14 Bacterial blood culture NG NRG Complete urinalysis with reflex to culture - 07/01/16 20:30 Urine color determination YELLOW NRG Urine clarity determination CLEAR NRG Urine pH measurement by test strip 7 5-9 Specific gravity of urine by test strip 1.010 1.016- 1.022 Urine protein assay by test strip, semi-quantitative 1+ NEGATIVE Urine glucose detection by automated test strip 1+ NEGATIVE Erythrocytes detection in urine sediment by light microscopy NEGATIVE NEGATIVE Urine ketones detection by automated test strip NEGATIVE NEGATIVE Urine nitrite detection by test strip NEGATIVE NEGATIVE Urine total bilirubin detection by test strip NEGATIVE NEGATIVE Urine urobilinogen measurement by automated test strip (mass/volume) NORMAL NORMAL Urine leukocyte esterase detection by dipstick NEGATIVE NEGATIVE Automated urine sediment erythrocyte count by microscopy (number/high power field) NONE NRG Automated urine sediment leukocyte count by microscopy (number/high power field ) RARE NRG Bacteria detection in urine sediment by light microscopy NEGATIVE NRG Crystals detection in urine sediment by light microscopy NONE NRG Casts detection in urine sediment by light microscopy NONE NRG Mucus detection in urine sediment by light microscopy SMALL NRG Complete urinalysis with reflex to culture NO NRG Comprehensive metabolic panel - 07/02/16 05:46 Serum or plasma sodium measurement (moles/volume) 131 mmol/L 135-145 Serum or plasma potassium measurement (moles/volume) 3.4 mmol/L 3.6-5.0 Serum or plasma chloride measurement (moles/volume) 98 mmol/L 98-107 Carbon dioxide 24 mmol/L 21-32 Serum or plasma anion gap determination (moles/volume) 9 mmol/L 5-14 Serum or plasma urea nitrogen measurement (mass/volume) 5 mg/dL 7-18 Serum or plasma creatinine measurement (mass/volume) 0.63 mg/dL 0.60-1.30 Serum or plasma urea nitrogen/creatinine mass ratio 8 NRG Serum or plasma creatinine measurement with calculation of estimated glomerular filtration rate > NRG Serum or plasma glucose measurement (mass/volume) 251 mg/dL 70-105 Serum or plasma calcium measurement (mass/volume) 8.2 mg/dL 8.5-10.1 Serum or plasma total bilirubin measurement (mass/volume) 0.9 mg/dL 0.1-1.0 Serum or plasma alkaline phosphatase measurement (enzymatic activity/volume) 80 U/L 40-136 Serum or plasma aspartate aminotransferase measurement (enzymatic activity/ volume) 14 U/L 5-34 Serum or plasma alanine aminotransferase measurement (enzymatic activity/volume ) < U/L 0-55 Serum or plasma protein measurement (mass/volume) 5.9 g/dL 6.4-8.2 Serum or plasma albumin measurement (mass/volume) 3.0 g/dL 3.2-4.5 Complete blood count (CBC) with automated white blood cell (WBC) differential - 07/02/16 05:46 Blood leukocytes automated count (number/volume) 35.2 10*3/uL 4.3-11.0 Blood erythrocytes automated count (number/volume) 3.14 10*6/uL 4.35-5.85 Venous blood hemoglobin measurement (mass/volume) 7.4 g/dL 11.5-16.0 Blood hematocrit (volume fraction) 24 % 35-52 Automated erythrocyte mean corpuscular volume 76 [foz_us] 80-99 Automated erythrocyte mean corpuscular hemoglobin (mass per erythrocyte) 24 pg 25-34 Automated erythrocyte mean corpuscular hemoglobin concentration measurement ( mass/volume) 31 g/dL 32-36 Automated erythrocyte distribution width ratio 25.4 % 10.0-14.5 Automated blood platelet count (count/volume) 1198 10*3/uL 130-400 Automated blood platelet mean volume measurement 9.0 [foz_us] 7.4-10.4 Automated blood neutrophils/100 leukocytes 88 % 42-75 Automated blood lymphocytes/100 leukocytes 6 % 12-44 Blood monocytes/100 leukocytes 6 % 0-12 Automated blood eosinophils/100 leukocytes 0 % 0-10 Automated blood basophils/100 leukocytes 0 % 0-10 Blood neutrophils automated count (number/volume) 31.0 10*3 1.8-7.8 Blood lymphocytes automated count (number/volume) 2.2 10*3 1.0-4.0 Blood monocytes automated count (number/volume) 2.0 10*3 0.0-1.0 Automated eosinophil count 0.0 10*3/uL 0.0-0.3 Automated blood basophil count (count/volume) 0.1 10*3/uL 0.0-0.1 Blood manual differential performed detection - 07/02/16 05:46 Blood monocytes/100 leukocytes 2 % NRG Manual blood segmented neutrophils/100 leukocytes 94 % NRG Blood band neutrophils/100 leukocytes 0 % NRG Manual blood lymphocytes/100 leukocytes 4 % NRG Manual eosinophils/100 leukocytes in nose 0 % NRG Manual blood basophils/100 leukocytes 0 % NRG Blood polychromasia detection by light microscopy SLIGHT NRG Blood anisocytosis detection by light microscopy MARKED NRG Blood macrocytes detection by light microscopy SLIGHT NRG Blood hypochromia detection by light microscopy MARKED NRG Blood microcytes detection by light microscopy MARKED NRG Blood target cells detection by light microscopy SLIGHT NRG Blood dacrocytes detection by light microscopy SLIGHT NRG Blood stomatocytes detection by light microscopy SLIGHT NRG Capillary blood glucose measurement by glucometer (mass/volume) - 07/02/16 09: 23 Capillary blood glucose measurement by glucometer (mass/volume) 171 mg/dL 70-110 Complete blood count (CBC) with automated white blood cell (WBC) differential - 07/21/16 18:44 Blood leukocytes automated count (number/volume) 6.0 10*3/uL 4.3-11.0 Blood erythrocytes automated count (number/volume) 4.08 10*6/uL 4.35-5.85 Venous blood hemoglobin measurement (mass/volume) 9.4 g/dL 11.5-16.0 Blood hematocrit (volume fraction) 31 % 35-52 Automated erythrocyte mean corpuscular volume 75 [foz_us] 80-99 Automated erythrocyte mean corpuscular hemoglobin (mass per erythrocyte) 23 pg 25-34 Automated erythrocyte mean corpuscular hemoglobin concentration measurement ( mass/volume) 31 g/dL 32-36 Automated erythrocyte distribution width ratio 21.9 % 10.0-14.5 Automated blood platelet count (count/volume) 374 10*3/uL 130-400 Automated blood platelet mean volume measurement 8.6 [foz_us] 7.4-10.4 Automated blood neutrophils/100 leukocytes 57 % 42-75 Automated blood lymphocytes/100 leukocytes 28 % 12-44 Blood monocytes/100 leukocytes 9 % 0-12 Automated blood eosinophils/100 leukocytes 4 % 0-10 Automated blood basophils/100 leukocytes 2 % 0-10 Blood neutrophils automated count (number/volume) 3.4 10*3 1.8-7.8 Blood lymphocytes automated count (number/volume) 1.7 10*3 1.0-4.0 Blood monocytes automated count (number/volume) 0.5 10*3 0.0-1.0 Automated eosinophil count 0.3 10*3/uL 0.0-0.3 Automated blood basophil count (count/volume) 0.1 10*3/uL 0.0-0.1 PT panel in platelet poor plasma by coagulation assay - 07/21/16 18:44 Prothrombin time (PT) in platelet poor plasma by coagulation assay 13.7 s 12.2-14.7 INR in platelet poor plasma or blood by coagulation assay 1.1 0.8-1.4 Activated partial thromboplastin time (aPTT) in platelet poor plasma bycoagulation assay - 07/21/16 18:44 Activated partial thromboplastin time (aPTT) in platelet poor plasma bycoagulation assay 30 s 24-35 Blood lactic acid measurement (moles/volume) - 07/21/16 18:44 Blood lactic acid measurement (moles/volume) 1.1 mmol/L 0.5-2.0 Whole blood basic metabolic panel - 07/21/16 18:44 Serum or plasma sodium measurement (moles/volume) 139 mmol/L 135-145 Serum or plasma potassium measurement (moles/volume) 3.2 mmol/L 3.6-5.0 Serum or plasma chloride measurement (moles/volume) 105 mmol/L 98-107 Carbon dioxide 27 mmol/L 21-32 Serum or plasma anion gap determination (moles/volume) 7 mmol/L 5-14 Serum or plasma urea nitrogen measurement (mass/volume) 7 mg/dL 7-18 Serum or plasma creatinine measurement (mass/volume) 0.56 mg/dL 0.60-1.30 Serum or plasma urea nitrogen/creatinine mass ratio 13 NRG Serum or plasma creatinine measurement with calculation of estimated glomerular filtration rate > NRG Serum or plasma glucose measurement (mass/volume) 178 mg/dL 70-105 Serum or plasma calcium measurement (mass/volume) 9.2 mg/dL 8.5-10.1 Serum or plasma C reactive protein measurement (mass/volume) - 07/21/16 18:44 Serum or plasma C reactive protein measurement (mass/volume) 0.51 mg /dL 0.00-0.50 Erythrocyte sedimentation rate by westergren method - 07/21/16 18:44 Erythrocyte sedimentation rate by westergren method 47 mm 0-20 Bacterial blood culture - 07/21/16 18:44 Bacterial blood culture NG NRG Bacterial blood culture - 07/21/16 19:12 Bacterial blood culture NG NRG Complete blood count (CBC) with automated white blood cell (WBC) differential - 08/07/16 14:32 Blood leukocytes automated count (number/volume) 7.0 10*3/uL 4.3-11.0 Blood erythrocytes automated count (number/volume) 4.32 10*6/uL 4.35-5.85 Venous blood hemoglobin measurement (mass/volume) 9.4 g/dL 11.5-16.0 Blood hematocrit (volume fraction) 31 % 35-52 Automated erythrocyte mean corpuscular volume 72 [foz_us] 80-99 Automated erythrocyte mean corpuscular hemoglobin (mass per erythrocyte) 22 pg 25-34 Automated erythrocyte mean corpuscular hemoglobin concentration measurement ( mass/volume) 30 g/dL 32-36 Automated erythrocyte distribution width ratio 22.4 % 10.0-14.5 Automated blood platelet count (count/volume) 560 10*3/uL 130-400 Automated blood platelet mean volume measurement 9.0 [foz_us] 7.4-10.4 Automated blood neutrophils/100 leukocytes 70 % 42-75 Automated blood lymphocytes/100 leukocytes 18 % 12-44 Blood monocytes/100 leukocytes 9 % 0-12 Automated blood eosinophils/100 leukocytes 2 % 0-10 Automated blood basophils/100 leukocytes 1 % 0-10 Blood neutrophils automated count (number/volume) 4.9 10*3 1.8-7.8 Blood lymphocytes automated count (number/volume) 1.3 10*3 1.0-4.0 Blood monocytes automated count (number/volume) 0.7 10*3 0.0-1.0 Automated eosinophil count 0.2 10*3/uL 0.0-0.3 Automated blood basophil count (count/volume) 0.1 10*3/uL 0.0-0.1 Comprehensive metabolic panel - 08/07/16 14:32 Serum or plasma sodium measurement (moles/volume) 136 mmol/L 135-145 Serum or plasma potassium measurement (moles/volume) 4.1 mmol/L 3.6-5.0 Serum or plasma chloride measurement (moles/volume) 105 mmol/L 98-107 Carbon dioxide 19 mmol/L 21-32 Serum or plasma anion gap determination (moles/volume) 12 mmol/L 5-14 Serum or plasma urea nitrogen measurement (mass/volume) 10 mg/dL 7-18 Serum or plasma creatinine measurement (mass/volume) 0.60 mg/dL 0.60-1.30 Serum or plasma urea nitrogen/creatinine mass ratio 17 NRG Serum or plasma creatinine measurement with calculation of estimated glomerular filtration rate > NRG Serum or plasma glucose measurement (mass/volume) 187 mg/dL 70-105 Serum or plasma calcium measurement (mass/volume) 8.9 mg/dL 8.5-10.1 Serum or plasma total bilirubin measurement (mass/volume) 0.3 mg/dL 0.1-1.0 Serum or plasma alkaline phosphatase measurement (enzymatic activity/volume) 127 U/L 40-136 Serum or plasma aspartate aminotransferase measurement (enzymatic activity/ volume) 35 U/L 5-34 Serum or plasma alanine aminotransferase measurement (enzymatic activity/volume ) 27 U/L 0-55 Serum or plasma protein measurement (mass/volume) 6.7 g/dL 6.4-8.2 Serum or plasma albumin measurement (mass/volume) 3.6 g/dL 3.2-4.5 Serum or plasma C reactive protein measurement (mass/volume) - 08/07/16 14:32 Serum or plasma C reactive protein measurement (mass/volume) 0.61 mg /dL 0.00-0.50 Blood type T Indirect antibody screen panel - 08/07/16 14:32 ABO+Rh group AN [facility] Transfusion band number [id number] [facility] Blood group antibody screen NEGATIVE [facility] Blood lactic acid measurement (moles/volume) - 08/07/16 15:57 Blood lactic acid measurement (moles/volume) 1.2 mmol/L 0.5-2.0 Bacterial blood culture - 08/07/16 15:57 Bacterial blood culture NG NR Bacterial blood culture - 08/07/16 16:00 Bacterial blood culture NG [facility] Capillary blood glucose measurement by glucometer (mass/volume) - 08/07/16 22: 33 Capillary blood glucose measurement by glucometer (mass/volume) 318 mg/dL 70-110 Capillary blood glucose measurement by glucometer (mass/volume) - 08/08/16 04: 32 Capillary blood glucose measurement by glucometer (mass/volume) 240 mg/dL 70-110 Complete blood count (CBC) with automated white blood cell (WBC) differential - 08/08/16 04:35 Blood leukocytes automated count (number/volume) 7.5 10*3/uL 4.3-11.0 Blood erythrocytes automated count (number/volume) 4.07 10*6/uL 4.35-5.85 Venous blood hemoglobin measurement (mass/volume) 8.7 g/dL 11.5-16.0 Blood hematocrit (volume fraction) 29 % 35-52 Automated erythrocyte mean corpuscular volume 72 [foz_us] 80-99 Automated erythrocyte mean corpuscular hemoglobin (mass per erythrocyte) 21 pg 25-34 Automated erythrocyte mean corpuscular hemoglobin concentration measurement ( mass/volume) 30 g/dL 32-36 Automated erythrocyte distribution width ratio 22.4 % 10.0-14.5 Automated blood platelet count (count/volume) 535 10*3/uL 130-400 Automated blood platelet mean volume measurement 9.2 [foz_us] 7.4-10.4 Automated blood neutrophils/100 leukocytes 63 % 42-75 Automated blood lymphocytes/100 leukocytes 23 % 12-44 Blood monocytes/100 leukocytes 11 % 0-12 Automated blood eosinophils/100 leukocytes 3 % 0-10 Automated blood basophils/100 leukocytes 1 % 0-10 Blood neutrophils automated count (number/volume) 4.7 10*3 1.8-7.8 Blood lymphocytes automated count (number/volume) 1.7 10*3 1.0-4.0 Blood monocytes automated count (number/volume) 0.8 10*3 0.0-1.0 Automated eosinophil count 0.3 10*3/uL 0.0-0.3 Automated blood basophil count (count/volume) 0.1 10*3/uL 0.0-0.1 Comprehensive metabolic panel - 08/08/16 04:35 Serum or plasma sodium measurement (moles/volume) 136 mmol/L 135-145 Serum or plasma potassium measurement (moles/volume) 4.1 mmol/L 3.6-5.0 Serum or plasma chloride measurement (moles/volume) 104 mmol/L 98-107 Carbon dioxide 24 mmol/L 21-32 Serum or plasma anion gap determination (moles/volume) 8 mmol/L 5-14 Serum or plasma urea nitrogen measurement (mass/volume) 10 mg/dL 7-18 Serum or plasma creatinine measurement (mass/volume) 0.68 mg/dL 0.60-1.30 Serum or plasma urea nitrogen/creatinine mass ratio 15 NRG Serum or plasma creatinine measurement with calculation of estimated glomerular filtration rate > NRG Serum or plasma glucose measurement (mass/volume) 226 mg/dL 70-105 Serum or plasma calcium measurement (mass/volume) 8.7 mg/dL 8.5-10.1 Serum or plasma total bilirubin measurement (mass/volume) 0.3 mg/dL 0.1-1.0 Serum or plasma alkaline phosphatase measurement (enzymatic activity/volume) 119 U/L 40-136 Serum or plasma aspartate aminotransferase measurement (enzymatic activity/ volume) 20 U/L 5-34 Serum or plasma alanine aminotransferase measurement (enzymatic activity/volume ) 20 U/L 0-55 Serum or plasma protein measurement (mass/volume) 6.0 g/dL 6.4-8.2 Serum or plasma albumin measurement (mass/volume) 3.4 g/dL 3.2-4.5 Capillary blood glucose measurement by glucometer (mass/volume) - 08/08/16 10: 55 Capillary blood glucose measurement by glucometer (mass/volume) 210 mg/dL 70-110 Capillary blood glucose measurement by glucometer (mass/volume) - 08/08/16 15: 54 Capillary blood glucose measurement by glucometer (mass/volume) 217 mg/dL 70-110 Capillary blood glucose measurement by glucometer (mass/volume) - 08/08/16 22: 17 Capillary blood glucose measurement by glucometer (mass/volume) 281 mg/dL 70-110 Capillary blood glucose measurement by glucometer (mass/volume) - 08/09/16 05: 40 Capillary blood glucose measurement by glucometer (mass/volume) 251 mg/dL 70-110 Capillary blood glucose measurement by glucometer (mass/volume) - 08/09/16 11: 20 Capillary blood glucose measurement by glucometer (mass/volume) 257 mg/dL 70-110 Vancomycin trough - 08/09/16 11:45 Vancomycin trough 14.3 ug/mL 10.0-20.0 Capillary blood glucose measurement by glucometer (mass/volume) - 08/09/16 16: 10 Capillary blood glucose measurement by glucometer (mass/volume) 149 mg/dL 70-110 Capillary blood glucose measurement by glucometer (mass/volume) - 08/09/16 20: 13 Capillary blood glucose measurement by glucometer (mass/volume) 331 mg/dL 70-110 Automated blood complete blood count (hemogram) panel - 08/10/16 05:53 Blood leukocytes automated count (number/volume) 6.3 10*3/uL 4.3-11.0 Blood erythrocytes automated count (number/volume) 4.81 10*6/uL 4.35-5.85 Venous blood hemoglobin measurement (mass/volume) 10.3 g/dL 11.5-16.0 Blood hematocrit (volume fraction) 34 % 35-52 Automated erythrocyte mean corpuscular volume 70 [foz_us] 80-99 Automated erythrocyte mean corpuscular hemoglobin (mass per erythrocyte) 21 pg 25-34 Automated erythrocyte mean corpuscular hemoglobin concentration measurement ( mass/volume) 31 g/dL 32-36 Automated erythrocyte distribution width ratio 22.6 % 10.0-14.5 Automated blood platelet count (count/volume) 604 10*3/uL 130-400 Automated blood platelet mean volume measurement 9.3 [foz_us] 7.4-10.4 Whole blood basic metabolic panel - 08/10/16 05:53 Serum or plasma sodium measurement (moles/volume) 134 mmol/L 135-145 Serum or plasma potassium measurement (moles/volume) 4.2 mmol/L 3.6-5.0 Serum or plasma chloride measurement (moles/volume) 98 mmol/L 98-107 Carbon dioxide 26 mmol/L 21-32 Serum or plasma anion gap determination (moles/volume) 10 mmol/L 5-14 Serum or plasma urea nitrogen measurement (mass/volume) 17 mg/dL 7-18 Serum or plasma creatinine measurement (mass/volume) 0.68 mg/dL 0.60-1.30 Serum or plasma urea nitrogen/creatinine mass ratio 25 NRG Serum or plasma creatinine measurement with calculation of estimated glomerular filtration rate > NRG Serum or plasma glucose measurement (mass/volume) 237 mg/dL 70-105 Serum or plasma calcium measurement (mass/volume) 8.9 mg/dL 8.5-10.1 Capillary blood glucose measurement by glucometer (mass/volume) - 08/10/16 06: 04 Capillary blood glucose measurement by glucometer (mass/volume) 219 mg/dL 70-110 Capillary blood glucose measurement by glucometer (mass/volume) - 08/10/16 10: 50 Capillary blood glucose measurement by glucometer (mass/volume) 286 mg/dL 70-110 Capillary blood glucose measurement by glucometer (mass/volume) - 08/10/16 16: 16 Capillary blood glucose measurement by glucometer (mass/volume) 221 mg/dL 70-110 Gram stain microscopy - 11/05/16 22:45 GRAM STAIN RESULT FEW GRAM NEGATIVE RODS NRG Bacteria identification in wound by culture - 11/05/16 22:45 Bacteria identification in wound by culture [id number] NR FREE TEXT EXTERNAL SENSITIVITY REPORTED AT 0726, 11-08-16 NRG QUANTITY OF GROWTH Moderate Growth NRG MRSA AGAR Screening test for MRSA is NEGATIVE (Final to follow) NR Bacterial susceptibility panel - 11/05/16 22:45 Gentamicin susceptibility test by minimum inhibitory concentration < = NRG Trimethoprim/sulfamethoxazole susceptibility test by minimum inhibitoryconcentration <= NRG Tobramycin susceptibility test by minimum inhibitory concentration < = NRG Cefazolin susceptibility test by minimum inhibitory concentration > = NRG Piperacillin/tazobactam susceptibility test by minimum inhibitory concentration <= NRG Ciprofloxacin susceptibility test by minimum inhibitory concentration <= NRG Meropenem susceptibility test by minimum inhibitory concentration < = NRG Aztreonam susceptibility test by minimum inhibitory concentration < = NRG Cefepime susceptibility test by minimum inhibitory concentration <= NRG Bacterial susceptibility panel - 11/05/16 22:45 Oxacillin susceptibility test by minimum inhibitory concentration < = NRG Gentamicin susceptibility test by minimum inhibitory concentration < = NRG Clindamycin susceptibility test by minimum inhibitory concentration <= NRG Erythromycin susceptibility test by minimum inhibitory concentration <= NRG Trimethoprim/sulfamethoxazole susceptibility test by minimum inhibitoryconcentration <= NRG Vancomycin susceptibility test by minimum inhibitory concentration 1 NRG Levofloxacin susceptibility test by minimum inhibitory concentration <= NRG Rifampin susceptibility test by minimum inhibitory concentration <= NRG Tetracycline susceptibility test by minimum inhibitory concentration <= NRG PT panel in platelet poor plasma by coagulation assay - 11/05/16 22:55 Prothrombin time (PT) in platelet poor plasma by coagulation assay 13.4 s 12.2-14.7 INR in platelet poor plasma or blood by coagulation assay 1.1 0.8-1.4 Activated partial thromboplastin time (aPTT) in platelet poor plasma bycoagulation assay - 11/05/16 22:55 Activated partial thromboplastin time (aPTT) in platelet poor plasma bycoagulation assay 31 s 24-35 Complete blood count (CBC) with automated white blood cell (WBC) differential - 11/05/16 22:55 Blood leukocytes automated count (number/volume) 15.1 10*3/uL 4.3-11.0 Blood erythrocytes automated count (number/volume) 5.04 10*6/uL 4.35-5.85 Venous blood hemoglobin measurement (mass/volume) 11.6 g/dL 11.5-16.0 Blood hematocrit (volume fraction) 37 % 35-52 Automated erythrocyte mean corpuscular volume 73 [foz_us] 80-99 Automated erythrocyte mean corpuscular hemoglobin (mass per erythrocyte) 23 pg 25-34 Automated erythrocyte mean corpuscular hemoglobin concentration measurement ( mass/volume) 32 g/dL 32-36 Automated erythrocyte distribution width ratio 21.0 % 10.0-14.5 Automated blood platelet count (count/volume) 590 10*3/uL 130-400 Automated blood platelet mean volume measurement 9.6 [foz_us] 7.4-10.4 Automated blood neutrophils/100 leukocytes 81 % 42-75 Automated blood lymphocytes/100 leukocytes 12 % 12-44 Blood monocytes/100 leukocytes 7 % 0-12 Automated blood eosinophils/100 leukocytes 0 % 0-10 Automated blood basophils/100 leukocytes 0 % 0-10 Blood neutrophils automated count (number/volume) 12.2 10*3 1.8-7.8 Blood lymphocytes automated count (number/volume) 1.8 10*3 1.0-4.0 Blood monocytes automated count (number/volume) 1.1 10*3 0.0-1.0 Automated eosinophil count 0.0 10*3/uL 0.0-0.3 Automated blood basophil count (count/volume) 0.0 10*3/uL 0.0-0.1 Blood lactic acid measurement (moles/volume) - 11/05/16 22:55 Blood lactic acid measurement (moles/volume) 1.5 mmol/L 0.5-2.0 Comprehensive metabolic panel - 11/05/16 22:55 Serum or plasma sodium measurement (moles/volume) 130 mmol/L 135-145 Serum or plasma potassium measurement (moles/volume) 4.2 mmol/L 3.6-5.0 Serum or plasma chloride measurement (moles/volume) 93 mmol/L 98-107 Carbon dioxide 23 mmol/L 21-32 Serum or plasma anion gap determination (moles/volume) 14 mmol/L 5-14 Serum or plasma urea nitrogen measurement (mass/volume) 9 mg/dL 7-18 Serum or plasma creatinine measurement (mass/volume) 0.81 mg/dL 0.60-1.30 Serum or plasma urea nitrogen/creatinine mass ratio 11 NRG Serum or plasma creatinine measurement with calculation of estimated glomerular filtration rate > NRG Serum or plasma glucose measurement (mass/volume) 610 mg/dL 70-105 Serum or plasma calcium measurement (mass/volume) 9.4 mg/dL 8.5-10.1 Serum or plasma total bilirubin measurement (mass/volume) 0.3 mg/dL 0.1-1.0 Serum or plasma alkaline phosphatase measurement (enzymatic activity/volume) 99 U/L 40-136 Serum or plasma aspartate aminotransferase measurement (enzymatic activity/ volume) 10 U/L 5-34 Serum or plasma alanine aminotransferase measurement (enzymatic activity/volume ) 6 U/L 0-55 Serum or plasma protein measurement (mass/volume) 7.3 g/dL 6.4-8.2 Serum or plasma albumin measurement (mass/volume) 3.4 g/dL 3.2-4.5 Serum or plasma C reactive protein measurement (mass/volume) - 11/05/16 22:55 Serum or plasma C reactive protein measurement (mass/volume) 15.59 mg/dL 0.00-0.50 Serum or plasma ethanol measurement (mass/volume) - 11/05/16 22:55 Serum or plasma ethanol measurement (mass/volume) < mg/dL <10 Blood manual differential performed detection - 11/05/16 22:55 Blood monocytes/100 leukocytes 8 % NRG Manual blood segmented neutrophils/100 leukocytes 80 % NRG Blood band neutrophils/100 leukocytes 0 % NRG Manual blood lymphocytes/100 leukocytes 12 % NRG Manual eosinophils/100 leukocytes in nose 0 % NRG Manual blood basophils/100 leukocytes 0 % NRG Blood polychromasia detection by light microscopy SLIGHT NRG Blood anisocytosis detection by light microscopy MARKED NRG Blood macrocytes detection by light microscopy MODERATE NRG Blood toxic granules detection by light microscopy 1+ NRG Blood hypochromia detection by light microscopy SLIGHT NRG Blood microcytes detection by light microscopy MODERATE NRG Erythrocyte sedimentation rate by westergren method - 11/05/16 22:55 Erythrocyte sedimentation rate by westergren method 36 mm 0-20 Bacterial blood culture - 11/05/16 22:55 Bacterial blood culture NG NRG Bacterial blood culture - 11/05/16 23:17 Bacterial blood culture NG NRG Arterial blood gas measurement - 11/05/16 23:57 Blood pCO2 41 mm[Hg] 35-45 Blood pO2 71 mm[Hg] 79-93 Arterial blood bicarbonate measurement (moles/volume) 28 mmol/L 23-27 Arterial blood base excess by calculation 3.8 mmol/L -2.5 -2.5 Arterial blood oxygen saturation measurement 96 % 94-100 * Inhaled oxygen flow rate RA NRG Arterial blood pH measurement with patient temperature correction 7.45 7.37-7.43 Arterial blood carbon dioxide, total measurement (moles/volume) 29.3 mmol/L 21.0-31.0 Body site LBRACH NRG Assessment of wrist artery patency prior to arterial puncture NA NRG Setting of ventilation mode NO NRG Measurement of body temperature 98.7 NRG Capillary blood glucose measurement by glucometer (mass/volume) - 11/06/16 00: 57 Capillary blood glucose measurement by glucometer (mass/volume) 318 mg/dL 70-110 Comp. Metabolic Panel (14) - 02/11/17 11:53 Glucose, Serum 546 mg/dL 65-99 BUN 14 mg/dL 6-24 Creatinine, Serum 0.60 mg/dL 0.57-1.00 eGFR If NonAfricn Am 107 mL/min/1.73 >59 eGFR If Africn Am 124 mL/min/1.73 >59 BUN/Creatinine Ratio 23 9-23 Sodium, Serum 133 mmol/L 134-144 Potassium, Serum 4.5 mmol/L 3.5-5.2 Chloride, Serum 94 mmol/L 96-106 Carbon Dioxide, Total 23 mmol/L 18-29 Calcium, Serum 8.9 mg/dL 8.7-10.2 Protein, Total, Serum 6.6 g/dL 6.0-8.5 Albumin, Serum 3.7 g/dL 3.5-5.5 Globulin, Total 2.9 g/dL 1.5-4.5 A/G Ratio 1.3 1.2-2.2 Bilirubin, Total <0.2 mg/dL 0.0-1.2 Alkaline Phosphatase, S 67 IU/L 39-117 AST (SGOT) 8 IU/L 0-40 ALT (SGPT) 8 IU/L 0-32 Lipid Panel - 02/11/17 11:53 Cholesterol, Total 142 mg/dL 100-199 Triglycerides 101 mg/dL 0-149 HDL Cholesterol 55 mg/dL >39 VLDL Cholesterol [place] 20 mg/dL 5-40 LDL Cholesterol Calc 67 mg/dL 0-99 Automated blood complete blood count (hemogram) panel - 12/29/17 17:22 Blood leukocytes automated count (number/volume) 5.9 10*3/uL 4.3-11.0 Blood erythrocytes automated count (number/volume) 2.87 10*6/uL 4.35-5.85 Venous blood hemoglobin measurement (mass/volume) 4.5 g/dL 11.5-16.0 Blood hematocrit (volume fraction) 18 % 35-52 Automated erythrocyte mean corpuscular volume 62 [foz_us] 80-99 Automated erythrocyte mean corpuscular hemoglobin (mass per erythrocyte) 16 pg 25-34 Automated erythrocyte mean corpuscular hemoglobin concentration measurement ( mass/volume) 25 g/dL 32-36 Automated erythrocyte distribution width ratio 22.6 % 10.0-14.5 Automated blood platelet count (count/volume) 426 10*3/uL 130-400 Automated blood platelet mean volume measurement 8.8 [foz_us] 7.4-10.4 Comprehensive metabolic panel - 12/29/17 17:22 Serum or plasma sodium measurement (moles/volume) 132 mmol/L 135-145 Serum or plasma potassium measurement (moles/volume) 4.3 mmol/L 3.6-5.0 Serum or plasma chloride measurement (moles/volume) 99 mmol/L 98-107 Carbon dioxide 25 mmol/L 21-32 Serum or plasma anion gap determination (moles/volume) 8 mmol/L 5-14 Serum or plasma urea nitrogen measurement (mass/volume) 15 mg/dL 7-18 Serum or plasma creatinine measurement (mass/volume) 0.69 mg/dL 0.60-1.30 Serum or plasma urea nitrogen/creatinine mass ratio 22 NRG Serum or plasma creatinine measurement with calculation of estimated glomerular filtration rate > NRG Serum or plasma glucose measurement (mass/volume) 314 mg/dL 70-105 Serum or plasma calcium measurement (mass/volume) 9.0 mg/dL 8.5-10.1 Serum or plasma total bilirubin measurement (mass/volume) 0.3 mg/dL 0.1-1.0 Serum or plasma alkaline phosphatase measurement (enzymatic activity/volume) 85 U/L 40-136 Serum or plasma aspartate aminotransferase measurement (enzymatic activity/ volume) 9 U/L 5-34 Serum or plasma alanine aminotransferase measurement (enzymatic activity/volume ) 8 U/L 0-55 Serum or plasma protein measurement (mass/volume) 7.4 g/dL 6.4-8.2 Serum or plasma albumin measurement (mass/volume) 3.8 g/dL 3.2-4.5 RED CELLS LEUKO REDUCED AS1 - 12/29/17 17:22 RED CELLS LEUKO REDUCED AS1 TRANSFUSED 12/30/17 0958 [facility] Blood type T Indirect antibody screen panel - 12/29/17 17:22 ABO+Rh group AN [facility] Transfusion band number [id number] [facility] Blood group antibody screen NEGATIVE [facility] ANEMIA ANALYZER - 12/30/17 09:50 Blood leukocytes automated count (number/volume) 5.7 10*3/uL 4.3-11.0 Blood erythrocytes automated count (number/volume) 2.70 10*6/uL 4.35-5.85 Venous blood hemoglobin measurement (mass/volume) 4.3 g/dL 11.5-16.0 Blood hematocrit (volume fraction) 17 % 35-52 Automated erythrocyte mean corpuscular volume 63 [foz_us] 80-99 Automated erythrocyte mean corpuscular hemoglobin (mass per erythrocyte) 16 pg 25-34 Automated erythrocyte mean corpuscular hemoglobin concentration measurement ( mass/volume) 25 g/dL 32-36 Automated erythrocyte distribution width ratio 22.6 % 10.0-14.5 Automated blood platelet count (count/volume) 408 10*3/uL 130-400 Automated blood platelet mean volume measurement 9.5 [foz_us] 7.4-10.4 Automated blood neutrophils/100 leukocytes 56 % 42-75 Automated blood lymphocytes/100 leukocytes 31 % 12-44 Blood monocytes/100 leukocytes 6 % NRG Automated blood eosinophils/100 leukocytes 3 % 0-10 Automated blood basophils/100 leukocytes 3 % 0-10 Blood neutrophils automated count (number/volume) 3.2 10*3 1.8-7.8 Blood lymphocytes automated count (number/volume) 1.8 10*3 1.0-4.0 Blood monocytes automated count (number/volume) 0.4 10*3 0.0-1.0 Automated eosinophil count 0.2 10*3/uL 0.0-0.3 Automated blood basophil count (count/volume) 0.1 10*3/uL 0.0-0.1 Manual blood segmented neutrophils/100 leukocytes 56 % NRG Blood band neutrophils/100 leukocytes 0 % NRG Manual blood lymphocytes/100 leukocytes 31 % NRG Manual eosinophils/100 leukocytes in nose 4 % NRG Manual blood basophils/100 leukocytes 3 % NRG Blood polychromasia detection by light microscopy SLIGHT NRG Blood anisocytosis detection by light microscopy MARKED NRG Blood hypochromia detection by light microscopy MARKED NRG Blood microcytes detection by light microscopy MODERATE NRG Blood reticulocytes count (number/volume) 27 10*9/L 24- 90 Blood reticulocytes/100 erythrocytes 0.99 % 0.50-2.40 Serum or plasma ferritin measurement (mass/volume) - 12/30/17 09:50 Serum or plasma ferritin measurement (mass/volume) 3.0 L 15.0-150.0 Encounters ACCT No. Visit Date/Time Discharge Status Pt. Type Provider Facility Loc./Unit Complaint [id number] 12/29/2017 17:10:00 03/29/2018 00:01:00 DIS Outpatient YANI CESAR MD [facility] D64.9 [id number] 11/05/2016 22:03:00 11/06/2016 01:15:00 DIS Emergency VLAD DO, SENDY K [facility] ER L FOOT RED/UNABLE TO WALK/ POSS POPPED BLOOD VESSEL [id number] 10/13/2016 10:01:00 10/13/2016 16:00:00 DIS Outpatient DARBY MCKENNA MD [facility] WOUNDCARE [id number] 08/24/2016 09:56:00 08/30/2016 09:06:00 DIS Outpatient DARBY MCKENNA MD [facility] WOUNDCARE [id number] 08/07/2016 18:25:00 08/10/2016 16:50:00 DIS Inpatient YANI CESAR MD [facility] 4TH BILATERAL PLEURAL EFFUSIONS, VOLUME OVERLOAD [id number] 07/21/2016 17:14:00 07/21/2016 19:35:00 DIS Emergency SENDY CHU DO [facility] ER LEFT LEG INFECTION [id number] 07/01/2016 22:07:00 07/02/2016 13:20:00 DIS Inpatient YANI CESAR MD [facility] 4TH DIABETIC FOOT WOUND LEFT, SEPSIS [id number] 06/15/2016 03:06:00 06/16/2016 11:53:00 DIS Inpatient NEFTALI RODRIGUEZ MD [facility] 4TH ANEMIA, HYPOTENSION, DIABETIC, FOOT WOUND [id number] 09/26/2014 10:15:00 09/26/2014 23:59:59 CLS Outpatient YANI CESAR MD [facility] ANEMIA [id number] 09/25/2014 20:36:00 09/25/2014 22:56:00 DIS Emergency SENDY CHU DO [facility] ER BILAT LEG PAIN [id number] 09/16/2013 04:05:00 09/18/2013 15:47:00 DIS Inpatient SUNI BRAR DO [facility] ICU CHEST PAIN [id number] 08/08/2013 12:52:00 08/08/2013 16:40:00 DIS Emergency DOMINIK LEY [facility] ER RT SIDE ABD PAIN [id number] 03/30/2018 00:10:00 PEN Preadmit YANI CESAR MD [facility] D64.9 [id number] 02/08/2013 21:25:00 Document Registration [id number] 10/28/2012 18:52:00 Document Registration [id number] 08/04/2012 09:15:00 Document Registration [id number] 07/27/2012 13:21:00 Document Registration [id number] 06/18/2012 21:39:00 Document Registration [id number] 06/11/2012 01:07:00 Document Registration [id number] 12/18/2010 19:23:00 Document Registration [id number] 10/01/2014 08:59:00 10/01/2014 23:59:59 CLS Outpatient YANI CESAR MD [id number] 09/23/2014 14:44:00 09/23/2014 23:59:59 CLS Outpatient YANI CESAR MD [id number] 02/26/2014 08:59:00 02/26/2014 23:59:59 CLS Outpatient YANI CESAR MD [id number] 10/10/2013 13:23:00 10/10/2013 23:59:59 CLS Outpatient YANI CESAR MD [id number] 08/07/2013 14:12:00 08/07/2013 23:59:59 CLS Outpatient SUNI BRAR DO [id number] 02/09/2013 13:28:00 02/09/2013 23:59:59 CLS Outpatient [id number] 01/31/2013 13:32:00 01/31/2013 23:59:59 CLS Outpatient [id number] 01/15/2013 14:36:00 01/15/2013 23:59:59 CLS Outpatient SUNI BRAR DO [id number] 01/02/2013 14:00:00 01/02/2013 23:59:59 CLS Outpatient KERLINE ORO APRN [id number] 12/28/2012 11:39:00 12/28/2012 23:59:59 CLS Outpatient SUNI BRAR DO [id number] 12/28/2012 09:42:00 12/28/2012 23:59:59 CLS Outpatient [id number] 12/21/2012 08:21:00 12/21/2012 23:59:59 CLS Outpatient [id number] 12/18/2012 09:41:00 12/18/2012 23:59:59 CLS Outpatient YANI CESAR MD [id number] 08/14/2012 10:00:00 08/14/2012 23:59:59 CLS Outpatient [id number] 08/14/2012 10:00:00 08/14/2012 23:59:59 CLS Outpatient NEFTALI RACHEL APRN [id number] 05/17/2013 08:50:00 Document Registration [id number] 03/29/2013 16:22:00 Document Registration [id number] 02/12/2017 10:08:00 Document Registration [id number] 02/12/2017 09:09:00 Document Registration [id number] 12/29/2017 15:40:00 12/29/2017 23:59:59 [facility] Outpatient TALI FLOYD, [facility]
[2018-03-30] MEDS ORDERED: NS IV 500 ML 500 ML IV ONE (23:35)
--- NOTE | 2018-03-30 23:41 | ED Respiratory ---
General Chief Complaint: Respiratory Problems Stated Complaint: TROUBLE BREATHING;COLD Nursing Triage Note: soa x4 days, ankle swelling, out of medications. Source: patient Exam Limitations: no limitations History of Present Illness Date Seen by Provider: March 30, 2018 Time Seen by Provider: 23:26 Initial Comments The patient presents to the ER by private conveyance with a chief complaint that she is having a couple days progressively worsening shortening of breath. She says she's had a cough that's sometimes productive but she feels like she can't really get anything out despite hacking a lot. She denies a history of asthma or COPD. She does smoke cigarettes but denies recreational drug use or alcohol use. She has a history of diabetes and left ukgpb-[id number] amputation. She says she is not been checking her blood sugar the last 2 days but in the past as been high. She takes her Levemir 15 units at night and NovoLog 5-15 units with meals on a sliding scale. She says she is supposed to be taking the Levemir 30 units at night but she thinks says too much. She denies any recent hypoglycemic episodes. She says she is anemic and had to have a blood transfusion about a month or 2 ago and she thinks that might be contributing today 2. She's not having any blood in her stools. She denies any abdominal pain. She does say she has frequency of urine. She has not been in diabetic ketoacidosis. Allergies and Home Medications Allergies Coded Allergies: codeine (Unverified Allergy, Mild, 04/21/09) Penicillins (Verified Allergy, Unknown, 12/08/07) Home Medications Ferrous Sulfate 325 Mg Tablet, 325 MG PO TIDWM Prescribed by: ALEYDA LOPEZ on 03/31/18 0151 Patient Home Medication List Home Medication List Reviewed: Yes Review of Systems Constitutional: No chills, No diaphoresis EENTM: No ear discharge, No ear pain Respiratory: cough (frequent); No phlegm; short of breath, wheezing Cardiovascular: No chest pain, No palpitations, No syncope Gastrointestinal: No abdominal pain, No constipation, No diarrhea, No nausea Genitourinary: No discharge, No dysuria Skin: No pruritus, No rash Psychiatric/Neurological: Denies Headache, Denies Numbness Past Nzpadrr-Zhqlda-Tzpoiu Hx Patient Social History Alcohol Use: Denies Use Recreational Drug Use: No Smoking Status: Current Everyday Smoker Type Used: Cigarettes 2nd Hand Smoke Exposure: Yes Recent Foreign Travel: No Contact w/Someone Who Travel: No Recent Infectious Disease Expo: No Recent Hopitalizations: No Immunizations Up To Date Tetanus Booster (TDap): Less than 5yrs PED Vaccines UTD: No Date of Pneumonia Vaccine: Jun 12, 2008 Date of Influenza Vaccine: Sep 17, 2014 Seasonal Allergies Seasonal Allergies: No Past Medical History Surgeries: Yes Section, Gallbladder, Vascular Surgery Respiratory: Yes COPD 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, Peripheral Vascular Neurological: Yes Neuropathy : No 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 Disorders: No 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 Disorders: 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 Sexually Transmitted Disease: No HIV/AIDS: No Genitourinary: Yes Bladder Infection, Kidney Stones Gastrointestinal: No Musculoskeletal: Yes (PERIPHERAL VASCULAR DISEASE) Endocrine: Yes (NON-COMPLIANCE) Diabetes, Insulin dep HEENT: No Cancer: No Psychosocial: Yes Anxiety, Depression Integumentary: No Blood Disorders: Yes (iron deficiency anemia) Adverse Reaction/Blood Tranf: No Family Medical History Diabetes mellitus 19 FATHER 19 MOTHER G8 BROTHER G8 SISTER Myocardial infarction 19 MOTHER Heart Disease, Diabetes Physical Exam Vital Signs Vital Signs - First Documented 03/30/18 03/31/18 23:00 02:00 Temp 97.0 Pulse 103 Resp 18 B/P (MAP) 114/52 (72) Pulse Ox 99 O2 Delivery Room Air O2 Flow Rate 2.00 Capillary Refill : Less Than 3 Seconds General Appearance: WD/WN, no apparent distress Eyes: Bilateral Eye Normal Inspection, Bilateral Eye PERRL, Bilateral Eye EOMI HEENT: PERRL/EOMI, normal ENT inspection, TMs normal, pharynx normal Neck: non-tender, full range of motion, normal inspection Respiratory: chest non-tender, no respiratory distress, no accessory muscle use , decreased breath sounds, wheezing (few scattered expiratory) Cardiovascular: normal peripheral pulses, regular rate, rhythm, tachycardia, other (1+ edema on the right ankle) Gastrointestinal: normal bowel sounds, non tender, soft Neurologic/Psychiatric: alert, normal mood/affect, oriented x 3 Skin: warm/dry, pallor Progress/Results/Core Measures Suspected Sepsis Recent Fever Within 48 Hours: No Infection Criteria Present: None New/Unexplained Altered Menta: No Sepsis Screen: No Definite Risk SIRS Temperature:97.0 Pulse: 103 Respiratory Rate: 18 Laboratory Tests 03/30/18 23:50: White Blood Count 7.3 Blood Pressure 114 /52 Mean: 72 Laboratory Tests 03/30/18 23:50: Creatinine 0.75, Platelet Count 173, Total Bilirubin 0.5 Results/Orders Lab Results Laboratory Tests Test 03/30/18 23:50 03/30/18 23:52 03/31/18 01:15 03/31/18 02:43 Range/Units White Blood Count 7.3 4.3-11.0 10^3/uL Red Blood Count 3.16 L 4.35-5.85 10^6/uL Hemoglobin 5.6 *L 11.5-16.0 G/DL Hematocrit 21 L 35-52 % Mean Corpuscular Volume 67 L 80-99 FL Mean Corpuscular Hemoglobin 18 L 25-34 PG Mean Corpuscular Hemoglobin Concent 27 L 32-36 G/DL Red Cell Distribution Width 29.8 H 10.0-14.5 % Platelet Count 173 130-400 10^3/uL Mean Platelet Volume 7.4-10.4 FL Neutrophils (%) (Auto) 71 42-75 % Lymphocytes (%) (Auto) 20 12-44 % Monocytes (%) (Auto) 6 0-12 % Eosinophils (%) (Auto) 1 0-10 % Basophils (%) (Auto) 2 0-10 % Neutrophils # (Auto) 5.2 1.8-7.8 X 10^3 Lymphocytes # (Auto) 1.5 1.0-4.0 X 10^3 Monocytes # (Auto) 0.5 0.0-1.0 X 10^3 Eosinophils # (Auto) 0.0 0.0-0.3 10^3/uL Basophils # (Auto) 0.1 0.0-0.1 10^3/uL Sodium Level 136 135-145 MMOL/L Potassium Level 3.4 L 3.6-5.0 MMOL/L Chloride Level 102 98-107 MMOL/L Carbon Dioxide Level 26 21-32 MMOL/L Anion Gap 8 5-14 MMOL/L Blood Urea Nitrogen 7 7-18 MG/DL Creatinine 0.75 0.60-1.30 MG/DL Estimat Glomerular Filtration Rate > 60 BUN/Creatinine Ratio 9 Glucose Level 510 *H 70-105 MG/DL Calcium Level 8.8 8.5-10.1 MG/DL Magnesium Level 1.7 L 1.8-2.4 MG/DL Total Bilirubin 0.5 0.1-1.0 MG/DL Aspartate Amino Transf (AST/SGOT) 49 H 5-34 U/L Alanine Aminotransferase (ALT/SGPT) 61 H 0-55 U/L Alkaline Phosphatase 242 H 40-136 U/L Troponin I < 0.30 <0.30 NG/ML C-Reactive Protein High Sensitivity 1.05 H 0.00-0.50 MG/DL Total Protein 6.9 6.4-8.2 GM/DL Albumin 3.5 3.2-4.5 GM/DL Glucometer 497 *H 464 *H 70-110 MG/DL Urine Color YELLOW Urine Clarity CLEAR Urine pH 6 5-9 Urine Specific [place] 1.010 L 1.016-1.022 Urine Protein 3+ H NEGATIVE Urine Glucose (UA) 4+ H NEGATIVE Urine Ketones NEGATIVE NEGATIVE Urine Nitrite NEGATIVE NEGATIVE Urine Bilirubin NEGATIVE NEGATIVE Urine Urobilinogen NORMAL NORMAL MG/DL Urine Leukocyte Esterase 1+ H NEGATIVE Urine RBC (Auto) 5+ H NEGATIVE Urine RBC 2-5 H /HPF Urine WBC RARE /HPF Urine Squamous Epithelial Cells 5-10 /HPF Urine Crystals NONE /LPF Urine Bacteria TRACE /HPF Urine Casts NONE /LPF Urine Mucus NEGATIVE /LPF Urine Culture Indicated NO My Orders Orders - ALEYDA LOPEZ Cbc With Automated Diff (03/30/18 23:35) Comprehensive Metabolic Panel (03/30/18 23:35) Hs C Reactive Protein (03/30/18 23:35) Magnesium (03/30/18 23:35) Saline Lock/Iv-Start (03/30/18 23:35) Ns Iv 500 Ml (Sodium Chloride 0.9%) (03/30/18 23:35) Albuterol/Ipra Inhalation Soln (Duoneb I (03/30/18 23:45) Svn Small Volume Nebulizer (03/30/18 23:35) Accucheck Stat ONCE (03/30/18 23:35) Ua Culture If Indicated (03/31/18 00:01) Vital Signs: Special (Order) (03/31/18 00:01) Consent-Obtain Consent For (03/31/18 00:01) Monitor S/S Transfusion Reacti (03/31/18 00:01) Ns Iv 500 Ml (Sodium Chloride 0.9%) (03/31/18 00:01) Type And Screen (03/31/18 00:01) Red Cells Leukocytes Reduced (03/31/18 00:01) Ekg Tracing (03/31/18 00:05) Continuous Ekg Monitoring (03/31/18 00:05) Troponin I (03/31/18 00:05) Chest Pa/Lat (2 View) (03/31/18 00:05) Magnesium 1 Gm/100 Ml Ivpb (Magnesium [place]ion (03/31/18 01:15) Potassium Cl 10meq/50ml Ivpb (Kcl 10 Meq (03/31/18 01:15) Insulin Determir (Per Unit) (Levemir (Pe (03/31/18 02:00) Insulin (Regular) Human (Humulin R (Per (03/31/18 02:00) Accucheck Stat ONCE (03/31/18 02:30) Medications Given in ED Current Medications Medications Dose Ordered Sig/Vaughn Route Start Time Stop Time Status Last Admin Dose Admin Albuterol/ Ipratropium 3 ml ONCE ONCE INH 03/30/18 23:45 03/30/18 23:46 DC 03/30/18 23:44 3 ML Insulin Detemir 30 unit ONCE ONCE SQ 03/31/18 02:00 03/31/18 02:02 DC 03/31/18 02:01 30 UNIT Insulin Human Regular 10 unit ONCE ONCE SC 03/31/18 02:00 03/31/18 02:02 DC 03/31/18 02:01 10 UNIT Magnesium Sulfate/ Dextrose 100 ml @ 100 mls/hr ONCE ONCE IV 03/31/18 01:15 03/31/18 02:14 DC 03/31/18 01:26 100 MLS/HR Potassium Chloride 50 ml @ 50 mls/hr ONCE ONCE IV 03/31/18 01:15 03/31/18 02:14 DC 03/31/18 01:26 50 MLS/HR Sodium Chloride 500 ml @ 0 mls/hr Q0M ONCE IV 03/30/18 23:35 03/30/18 23:37 DC 03/30/18 23:44 0 MLS/HR Vital Signs/I&O 5/02/1203/31/18 03/31/18 03/31/18 23:00 01:31 01:44 02:00 Temp 97.0 97.8 97.6 97.7 Pulse 103 103 100 99 Resp 18 18 19 17 B/P (MAP) 114/52 (72) 129/55 136/71 131/67 Pulse Ox 99 98 98 99 O2 Delivery Room Air Room Air Room Air Nasal Cannula O2 Flow Rate 2.00 03/31/18 03/31/18 03/31/18 03/31/18 02:11 02:11 02:24 02:30 Temp 97.4 97.4 97.5 97.6 Pulse 100 100 100 Resp 18 16 15 B/P (MAP) 131/67 131/67 128/72 133/89 Pulse Ox 99 99 100 O2 Delivery Nasal Cannula Nasal Cannula Nasal Cannula Nasal Cannula O2 Flow Rate 2.00 2.00 2.00 2.00 Capillary Refill : Less Than 3 Seconds Blood Pressure Mean: 72 Progress Note #1: Time: 23:40 Progress Note She does appear pale and so anemia can be driving some of this. She also hasn't decreased breath sounds and wheezing and inability to get up but she's been coughing. Possible she has bronchitis/COPD given her history of smoking. We'll give her a breathing treatment check some labs and get a chest x-ray. Progress Note #2: Time: 00:03 Progress Note Hemoglobin is 5.6 which may contribute to her dyspnea. We have typed and crossmatched for 2 units of packed red blood cells. Her blood sugar is 497 which further concerns us for the possibility of DKA. We will obtain a urinalysis looking for ketones. We will be careful dumping a lot of fluids on her until we get some red blood cells in her so as not to further dilute her hematocrit. EKG and Troponin as well. Transthoracic echocardiogram Dr. Cedeno 2012: Normal global left ventricular systolic function with an EF of 60%. Trivial tricuspid and pulmonic regurgitation. No evidence of significant valvular stenosis. Pulmonary systolic pressure approximately 20-25 mmHg. Progress Note #3: Time: 01:38 Progress Note There is no anion gap or ketones in the urine. We'll give her her first dose of 30 units Levemir as well as 10 units of regular insulin subcutaneous. She does not meet any inpatient criteria right now so we will give her 2 units of blood, monitor her and help her get set up for endoscopy with Dr. Condon, local general surgeon. She has a follow-up appointment on April 07 with her primary care provider. If you red blood cells seen on the urinalysis would be explained by the fact that she is on her period. She denies having a heavy period. She denies black tarry stool or hematochezia. Progress Note #4: Time: 02:54 Progress Note The patient is feeling better and less short of breath. Her lung sounds have improved after the initial breathing treatment. Her hemoglobin will need to be rechecked outpatient. Her blood sugar however only went from 497 down 464 after giving Levemir and 10 units of regular insulin. We then discussed this with her and she had a liter bottle of Sprite that she is working on. We counseled her on appropriate use of sugar-free drinks as well as follow-up plans with a surgeon for endoscopy and her primary care provider. She acknowledged the plan and is ready to go home. ECG Initial ECG Impression Date: March 31, 2018 Initial ECG Impression Time: 01:05 Initial ECG Rate: 106 Initial ECG Rhythm: S.Tach Initial ECG Intervals: QT (561) Initial ECG Impression: Nonspecific Changes Initial ECG Comparisson: Unchanged (September 16, 2013) Comment No significant ST-T wave elevation or depression. Deep Q waves seen from 2012. Diagnostic Imaging Diagonstic Imaging: Xray Plain Films/CT/US/NM/MRI: chest (2v) Comments No acute cardiopulmonary process noted. Reviewed: Reviewed by Me Departure Impression Primary Impression: Anemia Qualified Codes: D64.9 - Anemia, unspecified Additional Impressions: Uncontrolled diabetes mellitus with hyperglycemia Qualified Codes: E11.65 - Type 2 diabetes mellitus with hyperglycemia; Z79.4 - snf (current) use of insulin Hypokalemia Hypomagnesemia Disposition: 01 HOME, SELF-CARE Condition: Improved Departure-Patient Inst. Decision time for Depature: 02:55 Referrals: QIAN CONDON DAVID F MD (PCP/Family) Primary Care Physician Patient Instructions: Anemia Caused by Low Iron, Adult (DC) Add. Discharge Instructions: Tomorrow morning call Dr. Condon, General Surgery and request an appointment for endoscopy and workup of your anemia. Keep your follow-up appointment on the with Dr. Lorenzana to discuss your anemia. This morning please call Dr. Lorenzana's office to see if they will get your labs repeated prior to your appointment. Continue taking her insulin as prescribed and discontinue drinking sugary drinks such as soda. Please return to the ER if you begin to experience chest pain, shortness of breath or other worrisome symptoms. All discharge instructions reviewed with patient and/or family. Voiced understanding. Scripts Ferrous Sulfate (Ferosul) 325 Mg Tablet 325 MG PO TIDWM for 30 Days, #90 TAB 0 Refills Prov: ALEYDA LOPEZ 03/31/18 Copy Copies To 1: SUNI BRAR DO ALEYDA LOPEZ March 30, 2018 23:41
[2018-03-30] MEDS ORDERED: RT-ALBUTEROL/IPRATROPIUM 3 ML (DUONEB) VIAL INH ONE (23:45)
[2018-03-30 23:56] LABS: BASOPHILS # (AUTO) 0.1 10^3/uL (0.0-0.1); BASOPHILS % (AUTO) 2 % (0-10); EOSINOPHILS % (AUTO) 1 % (0-10); HEMATOCRIT 21 % (35-52); LYMPHOCYTES # (AUTO) 1.5 X 10^3 (1.0-4.0); LYMPHOCYTES % (AUTO) 20 % (12-44); MEAN CORPUSCULAR HEMOGLOBIN 18 PG (25-34); MEAN CORPUSCULAR HGB CONC 27 G/DL (32-36); MEAN CORPUSCULAR VOLUME 67 FL (80-99); MONOCYTES # (AUTO) 0.5 X 10^3 (0.0-1.0); MONOCYTES % (AUTO) 6 % (0-12); NEUTROPHILS # (AUTO) 5.2 X 10^3 (1.8-7.8); NEUTROPHILS % (AUTO) 71 % (42-75); PLATELET COUNT 173 10^3/uL (130-400); RED BLOOD COUNT 3.16 10^6/uL (4.35-5.85); RED CELL DISTRIBUTION WIDTH 29.8 % (10.0-14.5); WHITE BLOOD COUNT 7.3 10^3/uL (4.3-11.0)
[2018-03-31] VITALS (7 sets, daily range): BP systolic 128–136; BP diastolic 55–89
[2018-03-31] LABS: HEMOGLOBIN 5.6 G/DL (11.5-16.0)
[2018-03-31] MEDS ORDERED: NS IV 500 ML 500 ML IV SCH (00:01)
[2018-03-31 00:17] LABS: ALANINE AMINOTRANSFERASE 61 U/L (0-55); ALBUMIN 3.5 GM/DL (3.2-4.5); ALKALINE PHOSPHATASE 242 U/L (40-136); BILIRUBIN,TOTAL 0.5 MG/DL (0.1-1.0); BUN/CREATININE RATIO 9; CALCIUM 8.8 MG/DL (8.5-10.1); CARBON DIOXIDE 26 MMOL/L (21-32); CHLORIDE 102 MMOL/L (98-107); CREATININE SERUM 0.75 MG/DL (0.60-1.30); GFR ESTIMATED > 60; MAGNESIUM 1.7 MG/DL (1.8-2.4); POTASSIUM 3.4 MMOL/L (3.6-5.0); SODIUM 136 MMOL/L (135-145); TOTAL PROTEIN 6.9 GM/DL (6.4-8.2)
[2018-03-31 00:21] LABS: GLUCOSE 510 MG/DL (70-105)
[2018-03-31] MEDS ORDERED: MAGNESIUM 1 GM/100 ML IVPB 100 ML IV ONE (01:15)
[2018-03-31] MEDS ORDERED: POTASSIUM CL 10MEQ/50ML IVPB 50 ML IV ONE (01:15)
[2018-03-31 01:25] LABS: BILIRUBIN,URINE NEGATIVE (NEGATIVE); CLARITY,URINE CLEAR; COLOR,URINE YELLOW; GLUCOSE, URINE (UA) 4+ (NEGATIVE); KETONES,URINE NEGATIVE (NEGATIVE); LEUKOCYTE ESTERASE ,URINE 1+ (NEGATIVE); NITRITE,URINE NEGATIVE (NEGATIVE); PH,URINE 6 (5-9); PROTEIN,URINE 3+ (NEGATIVE); UROBILINOGEN,URINE NORMAL (NORMAL)
[2018-03-31 01:32] LABS: BACTERIA,URINE TRACE /HPF; WBC,URINE RARE /HPF
[2018-03-31] MEDS ORDERED: FERR325T24 PO (01:51)
[2018-03-31] MEDS ORDERED: inSUlin DETERMIR 1 UNIT/0.01 ML (LEVEMIR) CHARGE PER UNIT SQ ONE (02:00)
[2018-03-31] MEDS ORDERED: inSUlin (REGULAR) HUMAN 1 UNIT/0.01 ML (CHARGE PER UNIT) SC ONE (02:00)
[2018-03-31 03:16] LABS: AMPHETAMINE SCREEN, URINE NEGATIVE (NEGATIVE); BENZODIAZEPINES SCREEN URINE NEGATIVE (NEGATIVE); CANNABINOID SCREEN, URINE NEGATIVE (NEGATIVE); COCAINE SCREEN URINE NEGATIVE (NEGATIVE); METHAMPHETAMINE SCREEN URINE S POSITIVE (NEGATIVE); OPIATE SCREEN URINE POSITIVE (NEGATIVE)
[2018-03-31 03:17] LABS: BARBITURATE SCREEN URINE NEGATIVE (NEGATIVE); METHADONE STAT NEGATIVE (NEGATIVE); OXYCODONE STAT NEGATIVE (NEGATIVE); PROPOXYPHENE STAT NEGATIVE (NEGATIVE); TRICYCLIC ANTIDEPRESSANTS SCRE NEGATIVE (NEGATIVE)
--- NOTE | 2018-03-31 07:23 | Diagnostic Imaging Report ---
INDICATION: Dyspnea PA and lateral views of the chest are obtained. Since 08/09/2016, there has been improvement in aeration of left lung base. Heart size and pulmonary vascularity are at the upper limits of normal. No pneumothorax is detected. IMPRESSION: Heart size and pulmonary vascularity are at the upper limits of normal without other evidence of acute abnormality or adverse change. Dictated by: Dictated on workstation # [id number]
[2018-05-11] MEDS ORDERED: INSU100I10 SQ (10:22)
[2018-05-11] MEDS ORDERED: INSU100I14 SQ (10:22)
[2018-05-11] MEDS ORDERED: [UNRECOGNIZED DRUG - CODE] MC (10:22)
[2018-05-11] MEDS ORDERED: [UNRECOGNIZED DRUG - CODE] MC (10:22)
[2018-05-11] MEDS ORDERED: [UNRECOGNIZED DRUG - CODE] MC (10:22)
== END 2018-03-31 03:00 | disposition home or self-care (01) ==
LOC: EDUNIT# 22:23 → ER 22:24
DX: D64.9 Anemia, unspecified (principal); E11.65 Type 2 diabetes mellitus with hyperglycemia; E87.6 Hypokalemia; E83.42 Hypomagnesemia; E11.40 Type 2 diabetes mellitus with diabetic neuropathy, unspecified; J44.9 Chronic obstructive pulmonary disease, unspecified; F41.9 Anxiety disorder, unspecified; F32.9 Major depressive disorder, single episode, unspecified; F17.210 Nicotine dependence, cigarettes, uncomplicated; Z87.59 Personal history of other complications of pregnancy, childbirth and the puerperium; Z79.4 Long term (current) use of insulin; Z87.448 Personal history of other diseases of urinary system; Z82.49 Family history of ischemic heart disease and other diseases of the circulatory system; Z91.19 Patient's noncompliance with other medical treatment and regimen; Z88.5 Allergy status to narcotic agent; Z86.718 Personal history of other venous thrombosis and embolism; Z88.0 Allergy status to penicillin; Z89.512 Acquired absence of left leg below knee
CPT/HCPCS: 36415; 71046; 80053; 80306; 81000; 82962; 83735; 84484; 85025; 86141; 86850; 86900; 86901; 86922; 93005; 93041; 96361; 96365; 96367; 96372

== ENCOUNTER 2018-04-10 12:52 | Emergency (ER) | payer SELFPAY ==
[~2018-04-10] VITALS: Ht 167.6 cm; Wt 83.9 kg
[~2018-04-10 12:52] MED LIST changes: +FERR325T24 PO
--- OUTSIDE RECORDS SUMMARY | 2018-04-10 13:07 | XMS REPORT | Continuity of Care Document ---
Author Author [facility] Organization [facility] Address Unknown Phone Unavailable Allergies Active Description Code Type Severity Reaction Onset Reported/Identified Relationship to Patient Clinical Status Yes Penicillins [id number] Drug Allergy Unknown N/A 12/08/2007 Yes codeine [id number] Drug Allergy Mild N/A 04/21/2009 Yes Penicillins Drug Allergy N/A N/A 04/13/2010 Yes Penicillins Drug Allergy 04/13/2010 Yes Bactrim DS Drug Allergy N/A N/A 01/06/2011 Yes Bactrim DS Drug Allergy 01/06/2011 Medications There is no data. Problems Date Dx Coded Attending Type Code Diagnosis Diagnosed By DARBY MCKENNA MD, Ot E11.52 TYPE 2 DIABETES W DIABETIC PERIPHERAL AN DARBY MCKENNA MD, Ot E11.622 TYPE 2 DIABETES MELLITUS WITH OTHER SKIN DARBY MCKENNA MD, Ot I70.262 ATHSCL [place] [facility] ARTERIES OF EXTREMITIES W DARBY MCKENNA MD, [...] 10/27/1599 DARBY MCKENNA MD, Ot I70.262 ATHSCL [place] ARTERIES OF EXTREMITIES W 10/27/1599 DARBY MCKENNA [...] APRN 250.00 Diabetes Ii Controlled 04/13/2010 YANI CSEAR MD 250.00 Diabetes Ii Controlled 04/13/2010 250.00 [...] APRN 522.5 Periapical Abscess Without Sinus 02/19/2011 AYNI CESAR MD 522.5 Periapical Abscess Without Sinus [...] YANI CESAR MD 782.3 Edema 04/07/2012 528.9 Mouth Pain 04/07/2012 782.3 Edema 04/07/2012 528.9 Mouth Pain 04/07/2012 782.3 Edema 04/07/2012 BRAR DO, SUNI K 528.9 Mouth Pain 04/07/2012 BRAR DO, SUNI K 782.3 Edema 04/07/2012 SHORTY COOPER, KERLINE R 528.9 Mouth Pain 04/07/2012 LULU ORO [...] SUNI BRAR DO 528.9 MOUTH PAIN 12/28/2012 KERLINE ORO APRN 528.9 MOUTH PAIN 12/28/2012 SUNI [...] YANI CESAR MD 525.9 TOOTH PAIN 02/09/2013 AYNI CESAR MD 525.9 TOOTH PAIN 02/09/2013 Ot [...] Ot V76.12 OTH SCREEN MAMMO-MALIGN NEOPLASM OF СЕРЕГЙ 06/15/2016 Ot 553.20 VENTRAL HERNIA NOS 06/15/2016 [...] 06/16/2016 NEFTALI RODRIGUEZ MD Ot I70.262 ATHSCL [place] ARTERIES OF EXTREMITIES W 06/16/2016 NEFTALI RODRIGUEZ [...] YANI CESAR MD, Ot I70.202 UNSP ATHSCL [place] ARTERIES OF EXTREMITI 07/02/2016 YANI CESAR MD Ot I82.412 ACUTE EMBOLISM AND THROMBOSIS OF LEFT FE 07/02/2016 YANI CESAR MD Ot L03.115 CELLULITIS OF RIGHT LOWER LIMB 07/02/2016 YANI CESAR MD Ot L97.519 NON-PRS CHRONIC [facility] PRT RIGHT FOOT 07/02/2016 YANI CESAR MD, Ot Z79.4 RESEARCH ANTHROPOLOGIST (CURRENT) USE OF INSULIN 07/02/2016 YANI CESAR MD Ot Z86.718 PERSONAL HISTORY OF OTHER VENOUS THROMBO 07/21/2016 VLAD CONTRERAS SENDY K Ot E11.9 TYPE 2 DIABETES MELLITUS WITHOUT COMPLIC 07/21/2016 VLAD CONTRERAS SENDY K Ot F17.210 NICOTINE DEPENDENCE, CIGARETTES, UNCOMPL 07/21/2016 VLAD CONTRERAS SENDY K Ot G62.9 POLYNEUROPATHY, UNSPECIFIED 07/21/2016 VLAD CONTRERAS SENDY K Ot I70.262 ATHSCL [place] ARTERIES OF EXTREMITIES W 07/21/2016 VLAD CONTRERAS SENDY K Ot I74.3 EMBOLISM AND THROMBOSIS OF ARTERIES OF T 07/21/2016 VLAD CONTRERAS SENDY K Ot L03.116 CELLULITIS OF LEFT LOWER LIMB 07/21/2016 VLAD CONTRERAS SENDY K Ot Z79.4 RESEARCH ANTHROPOLOGIST (CURRENT) USE OF INSULIN 07/27/2016 VLAD CONTRERAS SENDY K Ot E11.9 TYPE 2 DIABETES MELLITUS WITHOUT COMPLIC 07/27/2016 SENDY CHU DO Ot F17.210 NICOTINE DEPENDENCE, CIGARETTES, UNCOMPL 07/27/2016 SENDY CHU DO Ot G62.9 POLYNEUROPATHY, UNSPECIFIED 07/27/2016 SENDY CHU DO Ot I70.262 ATHSCL [place] ARTERIES OF EXTREMITIES W 07/27/2016 SENDY CHU DO Ot I74.3 EMBOLISM AND THROMBOSIS OF ARTERIES OF T 07/27/2016 SENDY CHU DO Ot L03.116 CELLULITIS OF LEFT LOWER LIMB 07/27/2016 VLAD CONTRERAS SENDY Granger Ot Z79.4 RESEARCH ANTHROPOLOGIST (CURRENT) USE OF INSULIN 08/06/2016 YANI CESAR [...] ANTIBIOT 08/10/2016 YANI CESAR MD, Ot Z79.4 MCC (CURRENT) USE OF INSULIN 08/30/2016 DARBY MCKENNA MD, Ot E11.52 TYPE 2 DIABETES W DIABETIC PERIPHERAL AN 08/30/2016 DARBY MCKENNA MD, Ot E11.622 TYPE 2 DIABETES MELLITUS WITH OTHER SKIN 08/30/2016 DARBY MCKENNA MD, Ot I70.262 ATHSCL [place] ARTERIES OF EXTREMITIES W 08/30/2016 DARBY MCKENNA [...] 09/08/2016 DARBY MCKENNA MD, Ot I70.262 ATHSCL [place] ARTERIES OF EXTREMITIES W 09/08/2016 DARBY MCKENNA MD, Ot L97.223 NON-PRESSURE CHRONIC ULCER OF LEFT CALF 09/08/2016 DARBY MCKENNA MD, Ot T81.31XA DISRUPTION OF EXTERNAL OPERATION (SURGIC 09/08/2016 DARBY MCKENNA MD, Ot E11.52 TYPE 2 DIABETES W DIABETIC PERIPHERAL AN 09/08/2016 DARBY MCKENNA MD, Ot E11.622 TYPE 2 DIABETES MELLITUS WITH OTHER SKIN 09/08/2016 DARBY MCKENNA MD, Ot I70.262 ATHSCL [place] ARTERIES OF EXTREMITIES W 09/08/2016 DARBY MCKENNA MD, Ot L97.223 NON-PRESSURE CHRONIC ULCER OF LEFT CALF 09/08/2016 DARBY MCKENNA MD, Ot T81.31XA DISRUPTION OF EXTERNAL OPERATION (SURGIC 09/08/2016 DARBY MCKENNA MD, Ot E11.52 TYPE 2 DIABETES W DIABETIC PERIPHERAL AN 09/08/2016 DARBY MCKENNA MD, Ot E11.622 TYPE 2 DIABETES MELLITUS WITH OTHER SKIN 09/08/2016 DARBY MCKENNA MD, Ot I70.262 ATHSCL [place] ARTERIES OF EXTREMITIES W 09/08/2016 DARBY MCKENNA MD, Ot L97.223 NON-PRESSURE CHRONIC ULCER OF LEFT CALF 09/08/2016 DARBY MCKENNA MD, Ot T81.31XA DISRUPTION OF EXTERNAL OPERATION (SURGIC 09/08/2016 DARBY MCKENNA MD, Ot E11.52 TYPE 2 DIABETES W DIABETIC PERIPHERAL AN 09/08/2016 DARBY MCKENNA MD, Ot E11.622 TYPE 2 DIABETES MELLITUS WITH OTHER SKIN 09/08/2016 DARBY MCKENNA MD, Ot I70.262 ATHSCL [place] ARTERIES OF EXTREMITIES W 09/08/2016 DARBY MCKENNA [...] 09/14/2016 DARBY MCKENNA MD Ot I70.262 ATHSCL [place] ARTERIES OF EXTREMITIES W 09/14/2016 DARBY MCKENNA [...] 10/13/2016 DARBY MCKENNA MD Ot I70.262 ATHSCL [place] ARTERIES OF EXTREMITIES W 10/13/2016 DARBY MCKENNA [...] 10/13/2016 DARBY MCKENNA MD Ot I70.262 ATHSCL [place] ARTERIES OF EXTREMITIES W 10/13/2016 DARBY MCKENNA MD Ot L97.223 NON-PRESSURE CHRONIC ULCER OF LEFT CALF 10/13/2016 DARBY MCKNENA MD Ot T65.222A TOXIC EFFECT OF TOBACCO [...] 11/06/2016 VLAD DO SENDY K Ot Z79.4 MCC (CURRENT) USE OF INSULIN 11/07/2016 VLAD DO [...] LEFT LOWER LIMB 11/07/2016 SENDY CHU DO Elkin Ot Z79.4 RESEARCH ANTHROPOLOGIST (CURRENT) USE OF INSULIN 12/30/2017 YANI CESAR MD Ot D64.9 ANEMIA, UNSPECIFIED 12/30/2017 YANI CESAR MD Ot D64.9 ANEMIA, UNSPECIFIED 02/01/2018 YANI CESAR MD Ot D64.9 ANEMIA, UNSPECIFIED 03/29/2018 YANI CESAR MD Ot D64.9 ANEMIA, UNSPECIFIED 03/30/2018 YANI CESAR MD Ot D64.9 ANEMIA, UNSPECIFIED 03/30/2018 YANI CESAR MD Ot D64.9 ANEMIA, UNSPECIFIED 03/31/2018 ALEYDA LOPEZ MD Ot D64.9 ANEMIA, UNSPECIFIED 03/31/2018 ALEYDA LOPEZ MD Ot E11.40 TYPE 2 DIABETES MELLITUS WITH DIABETIC N 03/31/2018 ALEYDA LOPEZ MD Ot E11.65 TYPE 2 DIABETES MELLITUS WITH HYPERGLYCE 03/31/2018 ALEYDA LOPEZ MD Ot E83.42 HYPOMAGNESEMIA 03/31/2018 ALEYDA LOPEZ MD Ot E87.6 HYPOKALEMIA 03/31/2018 ALEYDA LOPEZ MD Ot F17.210 NICOTINE DEPENDENCE, CIGARETTES, UNCOMPL 03/31/2018 ALEYDA LOPEZ MD Ot F32.9 MAJOR DEPRESSIVE DISORDER, SINGLE EPISOD 03/31/2018 ALEYDA LOPEZ MD Ot F41.9 ANXIETY DISORDER, UNSPECIFIED 03/31/2018 ALEYDA LOPEZ MD Ot J44.9 CHRONIC OBSTRUCTIVE PULMONARY DISEASE, U 03/31/2018 ALEYDA LOPEZ MD Ot R06.02 SHORTNESS OF BREATH 03/31/2018 ALEYDA LOPEZ MD Ot Z79.4 MCC (CURRENT) USE OF INSULIN 03/31/2018 ALEYDA LOPEZ MD Ot Z82.49 FAMILY HX OF ISCHEM HEART DIS AND OTH DI 03/31/2018 ALEYDA LOPEZ MD Ot Z86.718 PERSONAL HISTORY OF OTHER VENOUS THROMBO 03/31/2018 ALEYDA LOPEZ MD Ot Z87.448 PERSONAL HISTORY OF OTHER DISEASES OF UR 03/31/2018 ALEYDA LOPEZ MD Ot Z87.59 PERSONAL HISTORY OF COMP OF PREG, CHLDBR 03/31/2018 ALEYDA LOPEZ MD Ot Z88.0 ALLERGY STATUS TO PENICILLIN 03/31/2018 ALEYDA LOPEZ MD Ot Z88.5 ALLERGY STATUS TO NARCOTIC AGENT STATUS 03/31/2018 ALEYDA LOPEZ MD Ot Z89.512 ACQUIRED ABSENCE OF LEFT LEG BELOW KNEE 03/31/2018 ALEYDA LOPEZ MD Ot Z91.19 PATIENT'S NONCOMPLIANCE W OT MEDICAL TR 04/03/2018 ALEYDA LOPEZ MD Ot D64.9 ANEMIA, UNSPECIFIED 04/03/2018 ALEYDA LOPEZ MD Ot E11.40 TYPE 2 DIABETES MELLITUS WITH DIABETIC N 04/03/2018 ALEYDA LOPEZ MD Ot E11.65 TYPE 2 DIABETES MELLITUS WITH HYPERGLYCE 04/03/2018 ALEYDA LOPEZ MD Ot E83.42 HYPOMAGNESEMIA 04/03/2018 ALEYDA LOPEZ MD Ot E87.6 HYPOKALEMIA 04/03/2018 ALEYDA LOPEZ MD Ot F17.210 NICOTINE DEPENDENCE, CIGARETTES, UNCOMPL 04/03/2018 ALEYDA LOPEZ MD Ot F32.9 MAJOR DEPRESSIVE DISORDER, SINGLE EPISOD 04/03/2018 ALEYDA LOPEZ MD Ot F41.9 ANXIETY DISORDER, UNSPECIFIED 04/03/2018 ALEYDA LOPEZ MD Ot J44.9 CHRONIC OBSTRUCTIVE PULMONARY DISEASE, U 04/03/2018 ALEYDA LOPEZ MD Ot R06.02 SHORTNESS OF BREATH 04/03/2018 ALEYDA LOPEZ MD Ot Z79.4 MCC (CURRENT) USE OF INSULIN 04/03/2018 ALEYDA LOPEZ MD Ot Z82.49 FAMILY HX OF ISCHEM HEART DIS AND OTH DI 04/03/2018 ALEYDA LOPEZ MD Ot Z86.718 PERSONAL HISTORY OF OTHER VENOUS THROMBO 04/03/2018 ALEYDA LOPEZ MD Ot Z87.448 PERSONAL HISTORY OF OTHER DISEASES OF UR 04/03/2018 ALEYDA LOPEZ MD Ot Z87.59 PERSONAL HISTORY OF COMP OF PREG, CHLDBR 04/03/2018 ALEYDA LOPEZ MD Ot Z88.0 ALLERGY STATUS TO PENICILLIN 04/03/2018 ALEYDA LOPEZ MD Ot Z88.5 ALLERGY STATUS TO NARCOTIC AGENT STATUS 04/03/2018 JOHN FLOYD, ALEYDA Corona Ot Z89.512 ACQUIRED ABSENCE OF LEFT LEG BELOW KNEE 04/03/2018 JOHN FLOYD, ALEYDA Corona Ot Z91.19 PATIENT'S NONCOMPLIANCE W [facility] MEDICAL TR Procedures Code Description [place] [address] ROUTINE VENIPUNCTURE 12/18/2012 10865 A1C (IN-HOUSE) 12/18/2012 65186 MICRO ALBUMIN-IN HOUSE 12/18/2012 13201 CMP 12/18/2012 42973 LIPID PANEL 12/18/2012 9507081 GFR CALC (RESULT ONLY) 12/18/2012 67633 MICROALBUMIN 12/19/2012 19835 THERAPUTIC INJ SQ/IM 12/28/2012 J1885 TORADOL INJ 12/28/2012 60830 CULTURE WOUND (AEROBIC) 01/02/2013 62438 CULTURE NASAL 02/01/2013 32638 A1C (IN-HOUSE) 03/29/2013 26871 XRAY LUMBAR SPINE 2 OR 3 VIEWS 05/17/2013 28205 THERAPUTIC INJ SQ/IM 05/17/2013 J1885 TORADOL PER 15 MG, INJ KETOROLAC TROMETHAMINE 05/17/2013 Obstetric Miah Miriam 05/21/2013 77899 A1C (IN-HOUSE) 10/09/2013 96579 A1C (IN-HOUSE) 02/26/2014 88264 MICRO ALBUMIN-IN HOUSE 02/26/2014 58504 ROUTINE VENIPUNCTURE 09/23/2014 90939 A1C (IN-HOUSE) 09/23/2014 26295 CMP 09/23/2014 2960131 GFR CALC (RESULT ONLY) 09/23/2014 29681 ROUTINE VENIPUNCTURE 10/01/2014 90195 MICRO ALBUMIN-IN HOUSE 10/01/2014 57160 CBC 10/01/2014 35449 MICROALBUMIN 10/01/2014 Results Test Result Range Complete [...] ABO+Rh group AN NRG Transfusion band number [id number] NRG Blood group antibody screen NEGATIVE NRG [...] - 07/21/16 19:12 Bacterial blood culture NG [facility] Complete blood count (CBC) with automated white [...] calculation of estimated glomerular filtration rate > [facility] Serum or plasma glucose measurement (mass/volume) 187 [...] panel - 08/07/16 14:32 ABO+Rh group AN [facility] Transfusion band number [id number] [facility] Blood group antibody screen NEGATIVE [facility] Blood lactic acid measurement (moles/volume) - 08/07/16 15:57 Blood lactic acid measurement (moles/volume) 1.2 mmol/L 0.5-2.0 Bacterial blood culture - 08/07/16 15:57 Bacterial blood culture NG [facility] [place] Bacterial blood culture - 08/07/16 16:00 Bacterial blood culture NG [facility] [place] Capillary blood glucose measurement by glucometer (mass/volume) [...] 22:45 Bacteria identification in wound by culture [id number] NR FREE TEXT EXTERNAL SENSITIVITY REPORTED AT [...] CELLS LEUKO REDUCED AS1 TRANSFUSED 12/30/17 0958 [facility] Blood type T Indirect antibody screen panel - 12/29/17 17:22 ABO+Rh group AN [facility] Transfusion band number [id number] [facility] Blood group antibody screen NEGATIVE [facility] ANEMIA ANALYZER - 12/30/17 09:50 Blood leukocytes [...] % 12-44 Blood monocytes/100 leukocytes 6 % NR Automated blood eosinophils/100 leukocytes 3 % 0-10 [...] plasma ferritin measurement (mass/volume) 3.0 L 15.0-150.0 Complete blood count (CBC) with automated white blood cell (WBC) differential - 03/30/18 23:50 Blood leukocytes automated count (number/volume) 7.3 10*3/uL 4.3-11.0 Blood erythrocytes automated count (number/volume) 3.16 10*6/uL 4.35-5.85 Venous blood hemoglobin measurement (mass/volume) 5.6 g/dL 11.5-16.0 Blood hematocrit (volume fraction) 21 % 35-52 Automated erythrocyte mean corpuscular volume 67 [foz_us] 80-99 Automated erythrocyte mean corpuscular hemoglobin (mass per erythrocyte) 18 pg 25-34 Automated erythrocyte mean corpuscular hemoglobin concentration measurement ( mass/volume) 27 g/dL 32-36 Automated erythrocyte distribution width ratio 29.8 % 10.0-14.5 Automated blood platelet count (count/volume) 173 10*3/uL 130-400 Automated blood platelet mean volume measurement TNP 7.4 -10.4 Automated blood neutrophils/100 leukocytes 71 % 42-75 Automated blood lymphocytes/100 leukocytes 20 % 12-44 Blood monocytes/100 leukocytes 6 % 0-12 Automated blood eosinophils/100 leukocytes 1 % 0-10 Automated blood basophils/100 leukocytes 2 % 0-10 Blood neutrophils automated count (number/volume) 5.2 10*3 1.8-7.8 Blood lymphocytes automated count (number/volume) 1.5 10*3 1.0-4.0 Blood monocytes automated count (number/volume) 0.5 10*3 0.0-1.0 Automated eosinophil count 0.0 10*3/uL 0.0-0.3 Automated blood basophil count (count/volume) 0.1 10*3/uL 0.0-0.1 Comprehensive metabolic panel - 03/30/18 23:50 Serum or plasma sodium measurement (moles/volume) 136 mmol/L 135-145 Serum or plasma potassium measurement (moles/volume) 3.4 mmol/L 3.6-5.0 Serum or plasma chloride measurement (moles/volume) 102 mmol/L 98-107 Carbon dioxide 26 mmol/L 21-32 Serum or plasma anion gap determination (moles/volume) 8 mmol/L 5-14 Serum or plasma urea nitrogen measurement (mass/volume) 7 mg/dL 7-18 Serum or plasma creatinine measurement (mass/volume) 0.75 mg/dL 0.60-1.30 Serum or plasma urea nitrogen/creatinine mass ratio 9 NRG Serum or plasma creatinine measurement with calculation of estimated glomerular filtration rate > NRG Serum or plasma glucose measurement (mass/volume) 510 mg/dL 70-105 Serum or plasma calcium measurement (mass/volume) 8.8 mg/dL 8.5-10.1 Serum or plasma total bilirubin measurement (mass/volume) 0.5 mg/dL 0.1-1.0 Serum or plasma alkaline phosphatase measurement (enzymatic activity/volume) 242 U/L 40-136 Serum or plasma aspartate aminotransferase measurement (enzymatic activity/ volume) 49 U/L 5-34 Serum or plasma alanine aminotransferase measurement (enzymatic activity/volume ) 61 U/L 0-55 Serum or plasma protein measurement (mass/volume) 6.9 g/dL 6.4-8.2 Serum or plasma albumin measurement (mass/volume) 3.5 g/dL 3.2-4.5 Magnesium - 03/30/18 23:50 Magnesium 1.7 mg/dL 1.8-2.4 Serum or plasma C reactive protein measurement (mass/volume) - 03/30/18 23:50 Serum or plasma C reactive protein measurement (mass/volume) 1.05 mg /dL 0.00-0.50 Serum or plasma troponin i.cardiac measurement (mass/volume) - 03/30/18 23:50 Serum or plasma troponin i.cardiac measurement (mass/volume) < ng/ mL <0.30 Capillary blood glucose measurement by glucometer (mass/volume) - 03/30/18 23: 52 Capillary blood glucose measurement by glucometer (mass/volume) 497 mg/dL 70-110 RED CELLS LEUKO REDUCED AS1 - 03/31/18 00:15 RED CELLS LEUKO REDUCED AS1 TRANSFUSED 03/31/18 0205 NRG Blood type T Indirect antibody screen panel - 03/31/18 00:15 ABO+Rh group AN NRG Transfusion band number [id number] NRG Blood group antibody screen NEGATIVE NRG Complete urinalysis with reflex to culture - 03/31/18 01:15 Urine color determination YELLOW NRG Urine clarity determination CLEAR NRG Urine pH measurement by test strip 6 5-9 Specific gravity of urine by test strip 1.010 1.016- 1.022 Urine protein assay by test strip, semi-quantitative 3+ NEGATIVE Urine glucose detection by automated test strip 4+ NEGATIVE Erythrocytes detection in urine sediment by light microscopy 5+ NEGATIVE Urine ketones detection by automated test strip NEGATIVE NEGATIVE Urine nitrite detection by test strip NEGATIVE NEGATIVE Urine total bilirubin detection by test strip NEGATIVE NEGATIVE Urine urobilinogen measurement by automated test strip (mass/volume) NORMAL NORMAL Urine leukocyte esterase detection by dipstick 1+ NEGATIVE Automated urine sediment erythrocyte count by microscopy (number/high power field) [HPF] NRG Automated urine sediment leukocyte count by microscopy (number/high power field ) RARE NRG Bacteria detection in urine sediment by light microscopy TRACE NRG Squamous epithelial cells detection in urine sediment by light microscopy 5-10 NRG Crystals detection in urine sediment by light microscopy NONE NRG Casts detection in urine sediment by light microscopy NONE NRG Mucus detection in urine sediment by light microscopy NEGATIVE NRG Complete urinalysis with reflex to culture NO NRG Urine drug screening test - 03/31/18 01:15 Urine phencyclidine detection by screening method NEGATIVE NEGATIVE Urine benzodiazepines detection by screening method NEGATIVE NEGATIVE Urine cocaine detection NEGATIVE NEGATIVE Urine amphetamines detection by screening method NEGATIVE NEGATIVE Urine methamphetamine detection by screening method POSITIVE NEGATIVE Urine cannabinoids detection by screening method NEGATIVE NEGATIVE Urine opiates detection by screening method POSITIVE NEGATIVE Urine barbiturates detection NEGATIVE NEGATIVE Screening urine tricyclic antidepressants detection NEGATIVE NEGATIVE Urine methadone detection by screening method NEGATIVE NEGATIVE Urine oxycodone detection NEGATIVE NEGATIVE Urine propoxyphene detection NEGATIVE NEGATIVE Capillary blood glucose measurement by glucometer (mass/volume) - 03/31/18 02: 43 Capillary blood glucose measurement by glucometer (mass/volume) 464 mg/dL 70-110 Encounters ACCT No. Visit Date/Time Discharge Status Pt. Type Provider Facility Loc./Unit Complaint [id number] 03/30/2018 22:24:00 03/31/2018 03:00:00 DIS Emergency ALEYDA LOPEZ MD [facility] ER TROUBLE BREATHING;COLD [id number] 03/30/2018 00:10:00 03/30/2018 23:59:59 CLS Preadmit YANI CESAR MD [facility] D64.9 [id number] 12/29/2017 17:10:00 03/29/2018 00:01:00 DIS Outpatient YANI CESAR MD [facility] D64.9 [id number] 11/05/2016 22:03:00 11/06/2016 01:15:00 DIS Emergency VLAD SENDY CONTRERAS [facility] ER L FOOT RED/UNABLE TO WALK/ POSS POPPED BLOOD VESSEL [id number] 10/13/2016 10:01:00 10/13/2016 16:00:00 DIS Outpatient DARBY MCKENNA MD [facility] WOUNDCARE [id number] 08/24/2016 09:56:00 08/30/2016 09:06:00 DIS Outpatient DARBY MCKENNA MD [facility] WOUNDCARE [id number] 08/07/2016 18:25:00 08/10/2016 16:50:00 DIS Inpatient YANI CESAR MD [facility] 4TH BILATERAL PLEURAL EFFUSIONS, VOLUME OVERLOAD [id number] 07/21/2016 17:14:00 07/21/2016 19:35:00 DIS Emergency SENDY CHU DO [facility] ER LEFT LEG INFECTION [id number] 07/01/2016 22:07:00 07/02/2016 13:20:00 DIS Inpatient YANI CESAR MD [facility] 4TH DIABETIC FOOT WOUND LEFT, SEPSIS [id number] 06/15/2016 03:06:00 06/16/2016 11:53:00 DIS Inpatient NEFTALI RODRIGUEZ MD [facility] 4TH ANEMIA, HYPOTENSION, DIABETIC, FOOT WOUND [id number] 09/26/2014 10:15:00 09/26/2014 23:59:59 [facility] [id number] 09/25/2014 20:36:00 09/25/2014 22:56:00 DIS Emergency VLADSENDY Roy DO [facility] ER BILAT LEG PAIN [id number] 09/16/2013 04:05:00 09/18/2013 15:47:00 DIS Inpatient SUNI BRAR DO [facility] ICU CHEST PAIN [id number] 08/08/2013 12:52:00 08/08/2013 16:40:00 DIS Emergency DOMINIK LEY [facility] ER RT SIDE ABD PAIN [id number] 02/08/2013 21:25:00 Document Registration [id number] 10/28/2012 18:52:00 Document Registration [id number] 08/04/2012 09:15:00 Document Registration [id number] 07/27/2012 13:21:00 Document Registration [id number] 06/18/2012 21:39:00 Document Registration [id number] 06/11/2012 01:07:00 Document Registration [id number] 12/18/2010 19:23:00 Document Registration [id number] 10/01/2014 08:59:00 10/01/2014 23:59:59 CLS Outpatient YANI CESAR MD [id number] 09/23/2014 14:44:00 09/23/2014 23:59:59 CLS Outpatient YANI CESAR MD [id number] 02/26/2014 08:59:00 02/26/2014 23:59:59 CLS Outpatient YANI CESAR MD [id number] 10/10/2013 13:23:00 10/10/2013 23:59:59 CLS Outpatient YANI CESAR MD [id number] 08/07/2013 14:12:00 08/07/2013 23:59:59 CLS Outpatient SUNI BRAR DO [place] [id number] 02/09/2013 13:28:00 02/09/2013 23:59:59 CLS Outpatient [id number] 01/31/2013 13:32:00 01/31/2013 23:59:59 CLS Outpatient [id number] 01/15/2013 14:36:00 01/15/2013 23:59:59 CLS Outpatient SUNI BRAR DO [id number] 01/02/2013 14:00:00 01/02/2013 23:59:59 CLS Outpatient KERLINE ORO APRN [id number] 12/28/2012 11:39:00 12/28/2012 23:59:59 CLS Outpatient SUNI BRAR DO [place] [id number] 12/28/2012 09:42:00 12/28/2012 23:59:59 CLS Outpatient [id number] 12/21/2012 08:21:00 12/21/2012 23:59:59 CLS Outpatient [id number] 12/18/2012 09:41:00 12/18/2012 23:59:59 CLS Outpatient YANI CESAR MD [id number] 08/14/2012 10:00:00 08/14/2012 23:59:59 CLS Outpatient [id number] 08/14/2012 10:00:00 08/14/2012 23:59:59 CLS Outpatient NEFTALI RACHEL APRN [id number] 05/17/2013 08:50:00 Document Registration [id number] 03/29/2013 16:22:00 Document Registration [id number] 02/12/2017 10:08:00 Document Registration [id number] 02/12/2017 09:09:00 Document Registration [id number] 04/07/2018 16:00:00 ACT Outpatient YANI CESAR MD [facility]
[2018-04-10] MEDS ORDERED: NS IV 1000 ML 1,000 ML IV SCH (13:44)
[2018-04-10] MEDS ORDERED: RT-ALBUTEROL/IPRATROPIUM 3 ML (DUONEB) VIAL INH ONE (13:45)
--- NOTE | 2018-04-10 13:54 | ED Respiratory ---
General Chief Complaint: Respiratory Problems Stated Complaint: SOB Nursing Triage Note: c/o soa x 1 week. Nonproductive cough reported. Hx of anemia and recent blood transfusion. Source: patient, old records Exam Limitations: no limitations History of Present Illness Date Seen by Provider: April 10, 2018 Time Seen by Provider: 13:39 Initial Comments The patient presents to the ER by private conveyance with a chief complaint of being shortness of breath. She's has been going on progressively worsening over the last 2 weeks. She has a history of uncontrolled diabetes she says her blood sugars usually run about 400. She recent he started a new long-acting insulin 40 units a day as well as she takes about 30 units 3 times a day of NovoLog. She has a prior BKA secondary to poor control of her diabetes. She has no history of coronary artery disease but she still smokes about a pack per day of cigarettes. She says she does not have a history of COPD and denies any wheezing or stridor. She's not been coughing anything up. She says she felt some chills yesterday and some nausea but no vomiting today and no nausea presently. She is not having any chest pain or pressure. She says she has some pain from breathing in her belly when asked to point she points to all over her belly. She denies ever being in DKA. She says she is urinating about the same as usual. She has normal bowel movements with her last bowel movement of being today. Allergies and Home Medications Allergies Coded Allergies: codeine (Unverified Allergy, Mild, 04/21/09) Penicillins (Verified Allergy, Unknown, 12/08/07) Home Medications Ferrous Sulfate 325 Mg Tablet, 325 MG PO TIDWM Prescribed by: ALEYDA LOPEZ on 03/31/18 0151 Patient Home Medication List Home Medication List Reviewed: Yes Review of Systems Constitutional: chills; No diaphoresis, No fever; malaise EENTM: No ear pain, No eye pain, No epistaxis, No nose congestion, No nose pain Respiratory: No cough; dyspnea on exertion; No hemoptysis, No phlegm; short of breath; No wheezing Cardiovascular: No chest pain, No edema, No palpitations, No syncope, No vascular heart diseas Gastrointestinal: abdominal pain (all over); No constipation, No diarrhea; nausea, vomiting (yesterday) Genitourinary: No discharge, No dysuria : No Musculoskeletal: No back pain, No joint pain Skin: No pruritus, No rash Psychiatric/Neurological: Denies Headache, Denies Numbness, Denies Paresthesia Past Seprysn-Kcrcgo-Oejqit Hx Patient Social History Alcohol Use: Denies Use Recreational Drug Use: No (SMOKES 1PPD) Smoking Status: Current Everyday Smoker Type Used: Cigarettes (1 ppd) 2nd Hand Smoke Exposure: Yes Recent Foreign Travel: No Contact w/Someone Who Travel: No Recent Infectious Disease Expo: No Recent Hopitalizations: No Immunizations Up To Date Tetanus Booster (TDap): Less than 5yrs PED Vaccines UTD: No Date of Pneumonia Vaccine: Jun 12, 2008 Date of Influenza Vaccine: Sep 17, 2014 Seasonal Allergies Seasonal Allergies: No Past Medical History Surgeries: Yes Section, Gallbladder, Vascular Surgery Respiratory: Yes COPD 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, Peripheral Vascular Neurological: Yes Neuropathy 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 Disorders: No 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 Sexually Transmitted Disease: No HIV/AIDS: No Genitourinary: Yes Bladder Infection, Kidney Stones Gastrointestinal: No Musculoskeletal: Yes (PERIPHERAL VASCULAR DISEASE) Endocrine: Yes (NON-COMPLIANCE) Diabetes, Insulin dep HEENT: No Cancer: No Psychosocial: Yes Anxiety, Depression Integumentary: No Blood Disorders: Yes (iron deficiency anemia) Adverse Reaction/Blood Tranf: No Family Medical History Diabetes mellitus 19 FATHER 19 MOTHER G8 BROTHER G8 SISTER Myocardial infarction 19 MOTHER Heart Disease, Diabetes Physical Exam Vital Signs Vital Signs - First Documented 04/10/18 13:34 Temp 98.1 Pulse 82 Resp 16 B/P (MAP) 134/92 (106) Pulse Ox 98 O2 Delivery Room Air Capillary Refill : Less Than 3 Seconds General Appearance: mild distress, other (poor protoplasm) Eyes: Bilateral Eye Normal Inspection, Bilateral Eye PERRL, Bilateral Eye EOMI HEENT: PERRL/EOMI, normal ENT inspection, TMs normal, other (oral mucosa is dry ) Neck: non-tender, full range of motion, normal inspection Respiratory: chest non-tender, lungs clear, normal breath sounds, no respiratory distress, no accessory muscle use Cardiovascular: normal peripheral pulses, regular rate, rhythm Gastrointestinal: normal bowel sounds, non tender, soft Extremities: non-tender, no pedal edema, no calf tenderness, normal capillary refill; No inflammation; other (left BKA with palpable popliteal pulse) Neurologic/Psychiatric: alert, normal mood/affect, oriented x 3 Skin: normal color, warm/dry Progress/Results/Core Measures Suspected Sepsis Recent Fever Within 48 Hours: No Infection Criteria Present: None New/Unexplained Altered Menta: No Sepsis Screen: No Definite Risk SIRS Temperature:98.1 Pulse: 82 Respiratory Rate: 16 Laboratory Tests 04/10/18 14:25: White Blood Count 9.9 Blood Pressure 134 /92 Mean: 106 Laboratory Tests 04/10/18 14:25: Creatinine 0.67, INR Comment 1.1, Platelet Count 465H, Total Bilirubin 0.6 Results/Orders Lab Results Laboratory Tests Test 04/10/18 14:00 04/10/18 14:25 Range/Units Urine Color YELLOW Urine Clarity CLEAR Urine pH 6 5-9 Urine Specific Pioneer 1.015 L 1.016-1.022 Urine Protein 3+ H NEGATIVE Urine Glucose (UA) 4+ H NEGATIVE Urine Ketones 1+ H NEGATIVE Urine Nitrite NEGATIVE NEGATIVE Urine Bilirubin NEGATIVE NEGATIVE Urine Urobilinogen 1 NORMAL MG/DL Urine Leukocyte Esterase NEGATIVE NEGATIVE Urine RBC (Auto) 1+ H NEGATIVE Urine RBC RARE /HPF Urine WBC 0-2 /HPF Urine Squamous Epithelial Cells 5-10 /HPF Urine Crystals NONE /LPF Urine Bacteria TRACE /HPF Urine Casts NONE /LPF Urine Mucus SMALL H /LPF Urine Culture Indicated NO Urine Opiates Screen NEGATIVE NEGATIVE Urine Oxycodone Screen NEGATIVE NEGATIVE Urine Methadone Screen NEGATIVE NEGATIVE Urine Propoxyphene Screen NEGATIVE NEGATIVE Urine Barbiturates Screen NEGATIVE NEGATIVE Ur Tricyclic Antidepressants Screen NEGATIVE NEGATIVE Urine Phencyclidine Screen NEGATIVE NEGATIVE Urine Amphetamines Screen NEGATIVE NEGATIVE Urine Methamphetamines Screen POSITIVE H NEGATIVE Urine Benzodiazepines Screen POSITIVE H NEGATIVE Urine Cocaine Screen NEGATIVE NEGATIVE Urine Cannabinoids Screen NEGATIVE NEGATIVE White Blood Count 9.9 4.3-11.0 10^3/uL Red Blood Count 3.95 L 4.35-5.85 10^6/uL Hemoglobin 7.7 L 11.5-16.0 G/DL Hematocrit 28 L 35-52 % Mean Corpuscular Volume 70 L 80-99 FL Mean Corpuscular Hemoglobin 19 L 25-34 PG Mean Corpuscular Hemoglobin Concent 28 L 32-36 G/DL Red Cell Distribution Width 32.6 H 10.0-14.5 % Platelet Count 465 H 130-400 10^3/uL Mean Platelet Volume 10.0 7.4-10.4 FL Neutrophils (%) (Auto) 75 42-75 % Lymphocytes (%) (Auto) 16 12-44 % Monocytes (%) (Auto) 7 0-12 % Eosinophils (%) (Auto) 2 0-10 % Basophils (%) (Auto) 1 0-10 % Neutrophils # (Auto) 7.4 1.8-7.8 X 10^3 Lymphocytes # (Auto) 1.6 1.0-4.0 X 10^3 Monocytes # (Auto) 0.7 0.0-1.0 X 10^3 Eosinophils # (Auto) 0.2 0.0-0.3 10^3/uL Basophils # (Auto) 0.1 0.0-0.1 10^3/uL Prothrombin Time 14.1 12.2-14.7 SEC INR Comment 1.1 0.8-1.4 Activated Partial Thromboplast Time 24 24-35 SEC D-Dimer 3.98 H 0.00-0.49 UG/ML Sodium Level 136 135-145 MMOL/L Potassium Level 4.0 3.6-5.0 MMOL/L Chloride Level 103 98-107 MMOL/L Carbon Dioxide Level 24 21-32 MMOL/L Anion Gap 9 5-14 MMOL/L Blood Urea Nitrogen 9 7-18 MG/DL Creatinine 0.67 0.60-1.30 MG/DL Estimat Glomerular Filtration Rate > 60 BUN/Creatinine Ratio 13 Glucose Level 368 H 70-105 MG/DL Calcium Level 8.7 8.5-10.1 MG/DL Magnesium Level 1.5 L 1.8-2.4 MG/DL Total Bilirubin 0.6 0.1-1.0 MG/DL Aspartate Amino Transf (AST/SGOT) 24 5-34 U/L Alanine Aminotransferase (ALT/SGPT) 16 0-55 U/L Alkaline Phosphatase 141 H 40-136 U/L Troponin I < 0.30 <0.30 NG/ML B-Type Natriuretic Peptide 2811.0 H <100.0 PG/ML Total Protein 6.3 L 6.4-8.2 GM/DL Albumin 3.3 3.2-4.5 GM/DL Lipase 5 L 8-78 U/L Serum Alcohol < 10 <10 MG/DL My Orders Orders - ALEYDA LOPEZ Alcohol (04/10/18 13:44) BNP (04/10/18 13:44) Cbc With Automated Diff (04/10/18 13:44) Comprehensive Metabolic Panel (04/10/18 13:44) Fibrin Degradation Products (04/10/18 13:44) Drug Screen Stat (Urine) (04/10/18 13:44) Lipase (04/10/18 13:44) Magnesium (04/10/18 13:44) Troponin I (04/10/18 13:44) Ua Culture If Indicated (04/10/18 13:44) Albuterol/Ipra Inhalation Soln (Duoneb I (04/10/18 13:45) Chest Pa/Lat (2 View) (04/10/18 13:44) Saline Lock/Iv-Start (04/10/18 13:44) Ns Iv 1000 Ml (Sodium Chloride 0.9%) (04/10/18 13:44) Svn Small Volume Nebulizer (04/10/18 13:44) Ekg Tracing (04/10/18 13:59) Ct Angio Chest W (04/10/18 16:11) Ceftriaxone Injection (Rocephin Injectio (04/10/18 16:15) Iohexol Injection (Omnipaque 350 Mg/Ml 1 (04/10/18 16:15) Sodium Chloride Flush (Catheter Flush Sy (04/10/18 16:15) Ns (Ivpb) (Sodium Chloride 0.9%) (04/10/18 16:15) Pharmacy Communication (Pharmacy Communi (04/10/18 16:12) Alprazolam Tablet (Xanax Tablet) (04/10/18 18:13) Heparin Drip [id number] Unit/500ml (Heparin (04/10/18 18:13) Heparin (Bolus Per Protocol) (Heparin (B (04/10/18 18:15) Protime With Inr (04/10/18 18:14) Partial Thromboplastin Time (04/10/18 18:14) Medications Given in ED Current Medications Medications Dose Ordered Sig/Vaughn Route Start Time Stop Time Status Last Admin Dose Admin Albuterol/ Ipratropium 3 ml ONCE ONCE INH 04/10/18 13:45 04/10/18 13:48 DC 04/10/18 15:38 3 ML Ceftriaxone Sodium 1000 mg/ Sodium Chloride 50 ml @ 200 mls/hr ONCE ONCE IV 04/10/18 16:15 04/10/18 16:29 DC 04/10/18 16:31 200 MLS/HR Heparin Sodium (Porcine) HEPARIN FULL PROTOC... ONCE ONCE IV 04/10/18 18:15 04/10/18 18:16 DC 04/10/18 19:06 5,000 UNIT Heparin Sodium/ Dextrose 500 ml @ 0 mls/hr Q0M ONCE IV 04/10/18 18:13 04/10/18 18:15 DC 04/10/18 19:10 24 MLS/HR Vital Signs/I&O 04/10/18 04/10/18 13:34 15:40 Temp 98.1 Pulse 82 Resp 16 B/P (MAP) 134/92 (106) Pulse Ox 98 95 O2 Delivery Room Air Room Air Capillary Refill : Less Than 3 Seconds Blood Pressure Mean: 106 Progress Note #1: Time: 13:53 Progress Note Her clear breath sounds and lack of a cough despite dyspnea concerns me for alternative diagnoses such as pulmonary embolism, anemia, atypical angina, DKA given her abdominal pain history of nausea vomiting and blood sugars running consistently over 400. We'll obtain labs and give her a single breathing treatment see if that makes any change in her breath sounds did x-rays and a urine checking for ketones. She's having some pain and we will entertain some Toradol for her pain as soon as we see that her creatinine is okay. Her bowel sounds are good. She does not have a surgical abdomen but she definitely has some tenderness when palpating all over. Progress Note #2: Time: 18:50 Progress Note The patient has significant anemia which is chronic for her and allegedly being worked up outpatient. She was seen just a few weeks ago and it was 5.5 and she was given a transfusion so this is an improvement from 01 April. She denies any black tarry stools. Her abdominal pain has improved with the IV fluids. Progress Note #3: Time: 19:29 Progress Note The patient has an accepting physician, a bed number and is pending transfer by ground. The heparin drip has been initiated. I discussed the case, history, plan and the next step will be transferred by EMS to [facility]. ECG Initial ECG Impression Date: April 10, 2018 Initial ECG Impression Time: 13:53 Initial ECG Rate: 87 Initial ECG Rhythm: Normal Sinus Initial ECG Intervals: QT (496) Initial ECG Intervals QRS duration is 138 ms Initial ECG Impression: Nonspecific Changes Initial ECG Comparisson: Unchanged (03/30/18) Comment Unchanged from last EKG. Sinus rhythm without ST elevation or depression. Diagnostic Imaging Diagonstic Imaging: Xray Plain Films/CT/US/NM/MRI: chest (2v) Comments [facility] [place] [place] NAME: ANNI OLIVARES Alibaba REC#: [id number] PT STATUS: REG ER : 1970 PHYSICIAN: ALEYDA LOPEZ MD ADMIT DATE: 04/10/18/ER Draft Date of Exam:04/10/18 CHEST PA/LAT (2 VIEW) INDICATION: Difficulty breathing. COMPARISON: 03/31/2018. FINDINGS: Two views of the chest are obtained. Heart size is enlarged. Pulmonary vasculature appears mildly prominent but unchanged. There is no pneumothorax demonstrated. There is, however, increasing opacity at the lung bases bilaterally concerning for some developing pneumonia. No significant pleural fluid is suspected. The osseous structures appear unremarkable. IMPRESSION: Increasing opacity at the lung bases bilaterally concerning for developing pneumonia. Short-term followup study is recommended. Cardiomegaly with mild central venous prominence is unchanged. Dictated on workstation # [id number] Dict: 04/10/18 1539 Trans: 04/10/18 1546 [facility] [id number] Interpreted by: YAMILA MOTA DO Electronically signed by: Reviewed: Reviewed by Ri Diagonstic Imaging: CT (angio) Plain Films/CT/US/NM/MRI: chest Comments [facility] [place] [place] NAME: ANNI OLIVARES Alibaba REC#: [id number] PT STATUS: REG ER : 1970 PHYSICIAN: ALEYDA LOPEZ MD ADMIT DATE: 04/10/18/ER Draft Date of Exam:04/10/18 CT ANGIO CHEST W PROCEDURE: CT angiography of the chest with contrast. TECHNIQUE: Multiple contiguous axial images were obtained through the chest after uneventful bolus administration of intravenous contrast. Reconstructed CTA MIP acquisitions were also performed. INDICATION: Dyspnea. COMPARISON: Chest radiographs from earlier today. CTA chest from 08/07/2016. FINDINGS: There is a large filling defect in the left ventricle which measures approximately 3.7 x 2.7 x 3.7 cm. This is new since the prior CTA examination. Cardiomegaly. Normal-caliber thoracic aorta without evidence of aneurysm or dissection. No large or central pulmonary artery filling defects on this nondedicated exam. Ucaojwbf-iy-okxng bilateral pleural effusions have mildly progressed since the prior exam. No pericardial effusion. Diffuse interlobular septal thickening. No large endobronchial lesions. No mediastinal, hilar, or axillary lymphadenopathy. Anasarca. Cholecystectomy. The visualized upper abdominal contents are otherwise unremarkable. Moderate spondylotic changes in the cervical spine. No acute osseous findings. IMPRESSION: 1. Large filling defect in the left ventricle measuring up to 3.7 cm. This may represent cardiac mass versus thrombus. 2. Evidence of cardiomegaly, interlobular septal thickening, and rkzhulqw-rs-ljxbc bilateral pleural effusions, consistent with pulmonary edema. Findings discussed with Nicole Gan PA-C, at 5:16 p.m. on 04/10/2018. Dictated on workstation # [id number] Dict: 04/10/18 1706 Trans: 04/10/18 1721 [id number] Interpreted by: BABATUNDE NGO MD Electronically signed by: Reviewed: Reviewed by Me Consults Consults : Consulting Physician: Taras GARCIA MD Consults Notes Discussed case and CT angiogram with cardiology and he is as we could keep her here and do a PATRIA but she started about some aware that if it is a clot that could be evacuated or there be CT surgery if it is a mass. He does agree with anticoagulation. Transfer of Care Transfer of Care Time: 19:28 Care transferred to: [facility] Departure Impression Primary Impression: Mass of left cardiac ventricle Additional Impressions: Hyperglycemia due to type 2 diabetes mellitus Qualified Codes: E11.65 - Type 2 diabetes mellitus with hyperglycemia; Z79.4 - skilled nursing (current) use of insulin Anemia Qualified Codes: D64.9 - Anemia, unspecified Disposition: 02 XFER SHT-TRM HOSP Condition: Stable Transfer Time Spoke to Accepting Phy: 18:52 Transfer Progress Notes [facility] spoke with Alicia triage nurse at [phone]. [phone] Yani Tomlinson Internal Medicine and triage nurse has already spoke to cardiology and they're all on board and willing to accept the patient. They will call back for nursing report and a room assignment. Transfer Facility: [facility] Method of Transfer: EMS (acls) Departure-Patient Inst. Referrals: YANI CESAR MD (PCP/Family) Primary Care Physician Copy Copies To 1: SUNI BRAR TITUS J April 10, 2018 13:54
[2018-04-10 14:40] LABS: BILIRUBIN,URINE NEGATIVE (NEGATIVE); CLARITY,URINE CLEAR; COLOR,URINE YELLOW; GLUCOSE, URINE (UA) 4+ (NEGATIVE); KETONES,URINE 1+ (NEGATIVE); LEUKOCYTE ESTERASE ,URINE NEGATIVE (NEGATIVE); NITRITE,URINE NEGATIVE (NEGATIVE); PH,URINE 6 (5-9); PROTEIN,URINE 3+ (NEGATIVE); UROBILINOGEN,URINE 1 MG/DL (NORMAL)
[2018-04-10 14:42] LABS: BASOPHILS # (AUTO) 0.1 10^3/uL (0.0-0.1); BASOPHILS % (AUTO) 1 % (0-10); EOSINOPHILS # (AUTO) 0.2 10^3/uL (0.0-0.3); EOSINOPHILS % (AUTO) 2 % (0-10); HEMATOCRIT 28 % (35-52); HEMOGLOBIN 7.7 G/DL (11.5-16.0); LYMPHOCYTES # (AUTO) 1.6 X 10^3 (1.0-4.0); LYMPHOCYTES % (AUTO) 16 % (12-44); MEAN CORPUSCULAR HGB CONC 28 G/DL (32-36); MEAN CORPUSCULAR VOLUME 70 FL (80-99); MONOCYTES # (AUTO) 0.7 X 10^3 (0.0-1.0); MONOCYTES % (AUTO) 7 % (0-12); NEUTROPHILS # (AUTO) 7.4 X 10^3 (1.8-7.8); NEUTROPHILS % (AUTO) 75 % (42-75); PLATELET COUNT 465 10^3/uL (130-400); RED BLOOD COUNT 3.95 10^6/uL (4.35-5.85); RED CELL DISTRIBUTION WIDTH 32.6 % (10.0-14.5); WHITE BLOOD COUNT 9.9 10^3/uL (4.3-11.0)
[2018-04-10 14:43] LABS: MEAN CORPUSCULAR HEMOGLOBIN 19 PG (25-34)
[2018-04-10 14:51] LABS: BACTERIA,URINE TRACE /HPF; RBC,URINE RARE /HPF; WBC,URINE 0-2 /HPF
[2018-04-10 14:54] LABS: AMPHETAMINE SCREEN, URINE NEGATIVE (NEGATIVE); BARBITURATE SCREEN URINE NEGATIVE (NEGATIVE); BENZODIAZEPINES SCREEN URINE POSITIVE (NEGATIVE); CANNABINOID SCREEN, URINE NEGATIVE (NEGATIVE); COCAINE SCREEN URINE NEGATIVE (NEGATIVE); METHADONE STAT NEGATIVE (NEGATIVE); METHAMPHETAMINE SCREEN URINE S POSITIVE (NEGATIVE); OPIATE SCREEN URINE NEGATIVE (NEGATIVE); OXYCODONE STAT NEGATIVE (NEGATIVE); PROPOXYPHENE STAT NEGATIVE (NEGATIVE); TRICYCLIC ANTIDEPRESSANTS SCRE NEGATIVE (NEGATIVE)
[2018-04-10 15:03] LABS: ALANINE AMINOTRANSFERASE 16 U/L (0-55); ALBUMIN 3.3 GM/DL (3.2-4.5); ALKALINE PHOSPHATASE 141 U/L (40-136); BILIRUBIN,TOTAL 0.6 MG/DL (0.1-1.0); BUN/CREATININE RATIO 13; CALCIUM 8.7 MG/DL (8.5-10.1); CARBON DIOXIDE 24 MMOL/L (21-32); CHLORIDE 103 MMOL/L (98-107); CREATININE SERUM 0.67 MG/DL (0.60-1.30); GFR ESTIMATED > 60; GLUCOSE 368 MG/DL (70-105); LIPASE 5 U/L (8-78); MAGNESIUM 1.5 MG/DL (1.8-2.4); SODIUM 136 MMOL/L (135-145); TOTAL PROTEIN 6.3 GM/DL (6.4-8.2)
--- NOTE | 2018-04-10 15:46 | Diagnostic Imaging Report ---
INDICATION: Difficulty breathing. COMPARISON: 03/31/2018. FINDINGS: Two views of the chest are obtained. Heart size is enlarged. Pulmonary vasculature appears mildly prominent but unchanged. There is no pneumothorax demonstrated. There is, however, increasing opacity at the lung bases bilaterally concerning for some developing pneumonia. No significant pleural fluid is suspected. The osseous structures appear unremarkable. IMPRESSION: Increasing opacity at the lung bases bilaterally concerning for developing pneumonia. Short-term followup study is recommended. Cardiomegaly with mild central venous prominence is unchanged. Dictated by: Dictated on workstation # [id number]
[2018-04-10] MEDS ORDERED: IOHEXOL 350 MG/ML 150 ML (OMNIPAQUE 350) VIAL IV ONE (16:15)
[2018-04-10] MEDS ORDERED: CATHETER FLUSH 10 ML SYR IV PRN (16:15)
[2018-04-10] MEDS ORDERED: cefTRIAXone INJECTION 1,000 MG in NS (IVPB) 50 ML IV ONE (16:15)
[2018-04-10] MEDS ORDERED: NS 250 ML (IVPB) BAG IV ONE (16:15)
--- NOTE | 2018-04-10 17:22 | Diagnostic Imaging Report ---
PROCEDURE: CT angiography of the chest with contrast. TECHNIQUE: Multiple contiguous axial images were obtained through the chest after uneventful bolus administration of intravenous contrast. Reconstructed CTA MIP acquisitions were also performed. INDICATION: Dyspnea. COMPARISON: Chest radiographs from earlier today. CTA chest from 08/07/2016. FINDINGS: There is a large filling defect in the left ventricle which measures approximately 3.7 x 2.7 x 3.7 cm. This is new since the prior CTA examination. Cardiomegaly. Normal-caliber thoracic aorta without evidence of aneurysm or dissection. No large or central pulmonary artery filling defects on this nondedicated exam. Pvovekrn-av-pfjjl bilateral pleural effusions have mildly progressed since the prior exam. No pericardial effusion. Diffuse interlobular septal thickening. No large endobronchial lesions. No mediastinal, hilar, or axillary lymphadenopathy. Anasarca. Cholecystectomy. The visualized upper abdominal contents are otherwise unremarkable. Moderate spondylotic changes in the cervical spine. No acute osseous findings. IMPRESSION: 1. Large filling defect in the left ventricle measuring up to 3.7 cm. This may represent cardiac mass versus thrombus. 2. Evidence of cardiomegaly, interlobular septal thickening, and poncaehj-cp-bnbia bilateral pleural effusions, consistent with pulmonary edema. Findings discussed with Nicole Gan PA-C, at 5:16 p.m. on 04/10/2018. Dictated by: Dictated on workstation # [id number]
[2018-04-10] MEDS ORDERED: ALPRAZolam 0.5 MG (XANAX) TAB PO STA (18:13)
[2018-04-10] MEDS ORDERED: HEParin DRIP 25000 UNIT/500ML 500 ML IV ONE (18:13)
[2018-04-10] MEDS ORDERED: HEParin 1000 UNIT/ML (10ML VIAL) FOR BOLUS IV ONE (18:15)
[2018-04-10 18:37] LABS: INR 1.1 (0.8-1.4); PROTHROMBIN TIME PATIENT 14.1 SEC (12.2-14.7)
[2018-04-10 19:42] VITALS: BP 127/92
[2018-04-10 19:56] VITALS: BP 139/85
[2018-05-11] MEDS ORDERED: [UNRECOGNIZED DRUG - CODE] MC (10:22)
[2018-05-11] MEDS ORDERED: [UNRECOGNIZED DRUG - CODE] MC (10:22)
[2018-05-11] MEDS ORDERED: INSU100I14 SQ (10:22)
[2018-05-11] MEDS ORDERED: INSU100I10 SQ (10:22)
[2018-05-11] MEDS ORDERED: [UNRECOGNIZED DRUG - CODE] MC (10:22)
== END 2018-04-10 19:58 | disposition short-term general hospital (02) ==
LOC: EDUNIT# 12:52 → ER 12:54
DX: I51.89 Other ill-defined heart diseases (principal); E11.65 Type 2 diabetes mellitus with hyperglycemia; D64.9 Anemia, unspecified; J44.9 Chronic obstructive pulmonary disease, unspecified; E11.42 Type 2 diabetes mellitus with diabetic polyneuropathy; F41.9 Anxiety disorder, unspecified; F32.9 Major depressive disorder, single episode, unspecified; F17.210 Nicotine dependence, cigarettes, uncomplicated; Z87.59 Personal history of other complications of pregnancy, childbirth and the puerperium; Z91.14 Patient's other noncompliance with medication regimen; Z86.718 Personal history of other venous thrombosis and embolism; Z82.49 Family history of ischemic heart disease and other diseases of the circulatory system; Z87.442 Personal history of urinary calculi; Z88.5 Allergy status to narcotic agent; Z88.0 Allergy status to penicillin
CPT/HCPCS: 36415; 71046; 71275; 80053; 80306; 80320; 81000; 83690; 83735; 83880; 84484; 85025; 85379; 85610; 85730; 93005; 96365; 96375

== ENCOUNTER 2018-05-08 17:29 | Inpatient (IN) | payer SELFPAY ==
[~2018-05-08] VITALS: Ht 180.3 cm; Wt 69.1 kg
[2018-05-08] MEDS: NS IV 1000 ML 1,000 ML IV SCH ×3 (17:50→22:39)
[2018-05-08 17:53] LABS: BASOPHILS # (AUTO) 0.1 10^3/uL (0.0-0.1); BASOPHILS % (AUTO) 1 % (0-10); EOSINOPHILS # (AUTO) 0.1 10^3/uL (0.0-0.3); EOSINOPHILS % (AUTO) 0 % (0-10); LYMPHOCYTES # (AUTO) 1.1 X 10^3 (1.0-4.0); LYMPHOCYTES % (AUTO) 10 % (12-44); MEAN CORPUSCULAR HEMOGLOBIN 21 PG (25-34); MEAN CORPUSCULAR HGB CONC 28 G/DL (32-36); MEAN CORPUSCULAR VOLUME 74 FL (80-99); MEAN PLATELET VOLUME 9.7 FL (7.4-10.4); MONOCYTES # (AUTO) 0.7 X 10^3 (0.0-1.0); MONOCYTES % (AUTO) 6 % (0-12); NEUTROPHILS # (AUTO) 9.5 X 10^3 (1.8-7.8); NEUTROPHILS % (AUTO) 83 % (42-75); PLATELET COUNT 695 10^3/uL (130-400); RED BLOOD COUNT 2.66 10^6/uL (4.35-5.85); RED CELL DISTRIBUTION WIDTH 26.8 % (10.0-14.5); WHITE BLOOD COUNT 11.4 10^3/uL (4.3-11.0)
[2018-05-08 17:55] LABS: HEMATOCRIT 20 % (35-52); HEMOGLOBIN 5.5 G/DL (11.5-16.0)
[2018-05-08 18:06] LABS: INR 1.8 (0.8-1.4)
[2018-05-08 18:13] LABS: ALBUMIN 3.7 GM/DL (3.2-4.5); BILIRUBIN,TOTAL 0.4 MG/DL (0.1-1.0); CALCIUM 9.4 MG/DL (8.5-10.1); POTASSIUM 4.9 MMOL/L (3.6-5.0); TOTAL PROTEIN 6.7 GM/DL (6.4-8.2)
[2018-05-08] MEDS ORDERED: NS IV 500 ML 500 ML IV SCH ×2 (18:15→18:21)
--- NOTE | 2018-05-08 18:40 | Diagnostic Imaging Report ---
PROCEDURE: CT head without contrast. TECHNIQUE: Multiple contiguous axial images were obtained through the brain without the use of intravenous contrast. INDICATION: Dizzy, syncope, fell and hit head today. COMPARISON: None FINDINGS: There is no midline shift or mass effect. The ventricles and sulci are unremarkable. No evidence for acute intracranial hemorrhage, abnormal extra-axial fluid collections or cerebral edema is present. The basilar cisterns are unremarkable. The bony calvarium is intact. The visualized paranasal sinuses and mastoid air cells are clear. IMPRESSION: Negative appearing noncontrast CT of the head. Dictated by: Dictated on workstation # [id number]
--- NOTE | 2018-05-08 18:41 | Diagnostic Imaging Report ---
INDICATION: Line placement. TECHNIQUE: Single view chest at 6:33 PM. CORRELATION STUDY: 04/10/2018 FINDINGS: Right-sided central line is in place via the neck. Tip projects over the expected location of the SVC. Heart size and mediastinum are unremarkable. The lung gordon with chronic type changes. No infiltrate, effusion or pneumothorax. Minimal scarring or atelectasis about the right lung base. Elevation of the right diaphragm is present. IMPRESSION: 1. Right IJ central line tip projects over the SVC. Likely chronic changes of the lung parenchyma. Dictated by: Dictated on workstation # [id number]
[2018-05-08] MEDS ORDERED: NS IV 500 ML 500 ML IV ONE (18:50)
[2018-05-08] MEDS ORDERED: inSUlin (REGULAR) HUMAN 1 UNIT/0.01 ML (CHARGE PER UNIT) IV STA (18:50)
--- NOTE | 2018-05-08 19:10 | ED General ---
General Chief Complaint: Dizziness/Syncope Stated Complaint: DIZZINESS History of Present Illness Date Seen by Provider: May 08, 2018 Time Seen by Provider: 17:42 Initial Comments Here by EMS with report of dizziness and fall while standing. Patient has significant history including mass to the heart and severe peripheral vascular disease requiring amputation of the left lower extremity below the knee. Patient is a diabetic and has labile blood sugars. Also has anemia. She doesn' t know what her blood sugar is she has not been checking it but last one was around 250. Denies nausea or vomiting. Reports hitting her head a little bit to the right frontal area. Reportedly on blood thinners but she is not sure which one. She was at last month and released and was to have follow-up on the but could not make it. Timing/Duration: 2-3 Days Severity: Moderate Modifying Factors: improves with Rest Associated Systoms: No Chest Pain, No Cough, No Fever/Chills, No Nausea/ Vomiting; Shortness of Air, Weakness Allergies and Home Medications Allergies Coded Allergies: codeine (Unverified Allergy, Mild, 04/21/09) Penicillins (Verified Allergy, Unknown, 12/08/07) Home Medications Ferrous Sulfate 325 Mg Tablet, 325 MG PO TIDWM Prescribed by: ALEYDA LOPEZ on 03/31/18 0151 Patient Home Medication List Home Medication List Reviewed: Yes Review of Systems Constitutional: No chills, No fever; weakness EENTM: no symptoms reported Respiratory: No short of breath, No wheezing Cardiovascular: No chest pain; syncope (near syncope) Gastrointestinal: No abdominal pain, No nausea, No vomiting Genitourinary: no symptoms reported : No Musculoskeletal: see HPI; No joint pain Skin: change in color (pallor); No rash Psychiatric/Neurological: Denies Headache; Weakness Hematologic/Lymphatic: Anemia All Other Systems Reviewed Negative Unless Noted: Yes Past Rlqenkr-Spjbxk-Oafyyo Hx Past Med/Social Hx: Reviewed Nursing Past Med/Soc Hx Patient Social History Alcohol Use: Denies Use Recreational Drug Use: No Smoking Status: Current Everyday Smoker Type Used: Cigarettes 2nd Hand Smoke Exposure: Yes Recent Hopitalizations: No Immunizations Up To Date Tetanus Booster (TDap): Less than 5yrs PED Vaccines UTD: No Date of Pneumonia Vaccine: Jun 12, 2008 Date of Influenza Vaccine: Sep 17, 2014 Seasonal Allergies Seasonal Allergies: No Past Medical History Surgeries: Yes Section, Gallbladder, Vascular Surgery Respiratory: Yes COPD 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, Peripheral Vascular Neurological: Yes Neuropathy 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 Disorders: No 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 Disorders: Denies 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 History: Menopausal Sexually Transmitted Disease: No HIV/AIDS: No Genitourinary: Yes Bladder Infection, Kidney Stones Gastrointestinal: No Musculoskeletal: Yes (PERIPHERAL VASCULAR DISEASE) Endocrine: Yes (NON-COMPLIANCE) Diabetes, Insulin dep HEENT: No Cancer: No Psychosocial: Yes Anxiety, Depression Integumentary: No Blood Disorders: Yes (iron deficiency anemia) Adverse Reaction/Blood Tranf: No Family Medical History Reviewed Nursing Family Hx Diabetes mellitus 19 FATHER 19 MOTHER G8 BROTHER G8 SISTER Myocardial infarction 19 MOTHER Heart Disease, Diabetes Physical Exam-Suspected Sepsis Physical Exam Vital Signs Vital Signs - First Documented 05/08/18 19:36 Temp 97.5 Pulse 88 Resp 18 B/P (MAP) 76/37 (50) Pulse Ox 100 O2 Delivery Room Air Capillary Refill : General Appearance: Chronically ill, Mild Distress, Thin HEENT: PERRL/EOMI, Pale Conjunctivae (L), Pale Conjunctivae (R) Neck: Non Tender, Supple Respiratory: Lungs Clear, Normal Breath Sounds Cardiovascular: Regular Rate, Rhythm, No Murmur Gastrointestinal: Non Tender, Soft Back: Normal Inspection, No CVA Tenderness, No Vertebral Tenderness Extremity: Slow Capillary Refill, Other (left BKA) Neurologic/Psychiatric: Alert, Oriented x3, No Motor/Sensory Deficits Skin: warm/dry, pallor; No ulcerations Focused Exam Lactate Level 05/08/18 18:10: Lactic Acid Level 2.05*H 05/08/18 19:49: Lactic Acid Level 2.69*H Lactic Acid Level Laboratory Tests Test 05/08/18 18:10 05/08/18 19:49 Lactic Acid Level 2.05 MMOL/L (0.50-2.00) *H 2.69 MMOL/L (0.50-2.00) *H Procedures/Interventions Lumen: triple Central Line Procedure: betadine prep, sterile drapes applied, sterile dressing applied Position: internal jugular (R) Anesthesia: Lidocaine Volume Anesthetic (ccs): 5 Complications: none Post Position: sutured, good blood return, position confirmed w/ CXR Placed via ultrasound guidance with no complications. Tolerated procedure well. Progress/Results/Core Measures Suspected Sepsis SIRS Temperature: Pulse: Respiratory Rate: Laboratory Tests 05/08/18 17:46: White Blood Count 11.4H Blood Pressure / Mean: 05/08/18 18:10: Lactic Acid Level 2.05*H 05/08/18 19:49: Lactic Acid Level 2.69*H Laboratory Tests 05/08/18 17:46: Creatinine 1.00, INR Comment 1.8H, Platelet Count 695H, Total Bilirubin 0.4 Results/Orders Lab Results Laboratory Tests Test 05/08/18 17:46 05/08/18 18:10 05/08/18 19:04 05/08/18 19:49 Range/Units White Blood Count 11.4 H 4.3-11.0 10^3/uL Red Blood Count 2.66 L 4.35-5.85 10^6/uL Hemoglobin 5.5 *L 11.5-16.0 G/DL Hematocrit 20 *L 35-52 % Mean Corpuscular Volume 74 L 80-99 FL Mean Corpuscular Hemoglobin 21 L 25-34 PG Mean Corpuscular Hemoglobin Concent 28 L 32-36 G/DL Red Cell Distribution Width 26.8 H 10.0-14.5 % Platelet Count 695 H 130-400 10^3/uL Mean Platelet Volume 9.7 7.4-10.4 FL Neutrophils (%) (Auto) 83 H 42-75 % Lymphocytes (%) (Auto) 10 L 12-44 % Monocytes (%) (Auto) 6 0-12 % Eosinophils (%) (Auto) 0 0-10 % Basophils (%) (Auto) 1 0-10 % Neutrophils # (Auto) 9.5 H 1.8-7.8 X 10^3 Lymphocytes # (Auto) 1.1 1.0-4.0 X 10^3 Monocytes # (Auto) 0.7 0.0-1.0 X 10^3 Eosinophils # (Auto) 0.1 0.0-0.3 10^3/uL Basophils # (Auto) 0.1 0.0-0.1 10^3/uL Prothrombin Time 21.0 H 12.2-14.7 SEC INR Comment 1.8 H 0.8-1.4 Activated Partial Thromboplast Time 26 24-35 SEC Sodium Level 127 L 135-145 MMOL/L Potassium Level 4.9 3.6-5.0 MMOL/L Chloride Level 94 L 98-107 MMOL/L Carbon Dioxide Level 22 21-32 MMOL/L Anion Gap 11 5-14 MMOL/L Blood Urea Nitrogen 17 7-18 MG/DL Creatinine 1.00 0.60-1.30 MG/DL Estimat Glomerular Filtration Rate 59 BUN/Creatinine Ratio 17 Glucose Level 653 *H 70-105 MG/DL Calcium Level 9.4 8.5-10.1 MG/DL Total Bilirubin 0.4 0.1-1.0 MG/DL Aspartate Amino Transf (AST/SGOT) 17 5-34 U/L Alanine Aminotransferase (ALT/SGPT) 13 0-55 U/L Alkaline Phosphatase 76 40-136 U/L Total Protein 6.7 6.4-8.2 GM/DL Albumin 3.7 3.2-4.5 GM/DL Lactic Acid Level 2.05 *H 2.69 *H 0.50-2.00 MMOL/L Urine Color YELLOW Urine Clarity CLEAR Urine pH 6.5 5-9 Urine Specific [place] 1.005 L 1.016-1.022 Urine Protein 3+ H NEGATIVE Urine Glucose (UA) 4+ H NEGATIVE Urine Ketones NEGATIVE NEGATIVE Urine Nitrite NEGATIVE NEGATIVE Urine Bilirubin NEGATIVE NEGATIVE Urine Urobilinogen NORMAL NORMAL MG/DL Urine Leukocyte Esterase 1+ H NEGATIVE Urine RBC (Auto) 5+ H NEGATIVE Urine RBC 50-100 H /HPF Urine WBC RARE /HPF Urine Squamous Epithelial Cells 0-2 /HPF Urine Crystals NONE /LPF Urine Bacteria NEGATIVE /HPF Urine Casts NONE /LPF Urine Mucus NEGATIVE /LPF Urine Culture Indicated NO My Orders Orders - GERRI GALLAGHER MD Cbc With Automated Diff (05/08/18 17:45) Comprehensive Metabolic Panel (05/08/18 17:45) Lactic Acid Analyzer (05/08/18 17:45) Blood Culture (05/08/18 17:45) Sputum Culture (05/08/18 17:45) Ua Culture If Indicated (05/08/18 17:45) Protime With Inr (05/08/18 17:45) Partial Thromboplastin Time (05/08/18 17:45) Chest 1 View, Ap/Pa Only (05/08/18 17:45) O2 (05/08/18 17:45) Saline Lock/Iv-Start (05/08/18 17:45) Saline Lock/Iv-Start (05/08/18 17:45) Vital Signs Adult Sepsis Patie Q1H (05/08/18 17:45) Remove Rings In Anticipation O (05/08/18 17:45) Ns Iv 1000 Ml (Sodium Chloride 0.9%) (05/08/18 17:45) Ct Head Wo (05/08/18 17:45) Vital Signs: Special (Order) (05/08/18 18:15) Consent-Obtain Consent For (05/08/18 18:15) Monitor S/S Transfusion Reacti (05/08/18 18:15) Ns Iv 500 Ml (Sodium Chloride 0.9%) (05/08/18 18:15) Type And Screen (05/08/18:) Vital Signs: Special (Order) (05/08/18 18:21) Consent-Obtain Consent For (05/08/18 18:21) Monitor S/S Transfusion Reacti (05/08/18 18:21) Ns Iv 500 Ml (Sodium Chloride 0.9%) (05/08/18 18:21) Red Cells Leukocytes Reduced (05/08/18 18:21) Catheter(Urinary) Insert & Ass 03,15 (05/08/18 18:50) Insulin (Regular) Human (Humulin R (Per (05/08/18 18:50) Saline Lock/Iv-Start (05/08/18 18:50) Ns Iv 500 Ml (Sodium Chloride 0.9%) (05/08/18 18:50) Ceftriaxone Injection (Rocephin Injectio (05/08/18 20:00) Norepinephrine (Levophed) (05/08/18 20:00) Medications Given in ED Current Medications Medications Dose Ordered Sig/Vaughn Route Start Time Stop Time Status Last Admin Dose Admin Ceftriaxone Sodium 1000 mg/ Sodium Chloride 50 ml @ 100 mls/hr ONCE ONCE IV 05/08/18 20:00 05/08/18 20:29 05/08/18 20:11 100 MLS/HR Sodium Chloride 500 ml @ 0 mls/hr Q0M ONCE IV 05/08/18 18:50 05/08/18 18:53 DC 05/08/18 19:56 0 MLS/HR Vital Signs/I&O 6/11/18 19:36 Temp 97.5 Pulse 88 Resp 18 B/P (MAP) 76/37 (50) Pulse Ox 100 O2 Delivery Room Air Capillary Refill : Progress Note : Progress Note Seen and evaluated on arrival by EMS due to hypotension. Attempted IV starts several times but unable to gain access. Patient is known to have very poor access. Elected to emergently place central line. Discussed with patient who agreed and she consented. Consent on chart. Central line placed by me. Ultrasound guidance. Labs, blood cultures, lactic acid and IV fluids initiated. Patient has, located medical history and is known to have a thrombus or mass within the heart. Patient is unsure of her history. She was transferred to last month for this and was supposed to go back for follow-up on 02 May which she was unable to do. Fluids initiated and blood pressure improved. 1927. Labs complete. Patient is significantly anemic and type and cross for 4 units with 2 units to transfuse has been ordered and pending. Patient has antibody issues with blood which is increasing the time for blood transfusion. Patient has total of 2500 mL of normal saline ordered due to concerns of sepsis which exceeds the 30 mL/kg bolus requirement. Patient has had history of heart failure previously but is showing no indications of heart failure currently in O2 saturation is 100 percent on room air despite her hypotension. Heart rate is 80s to 90s. I did speak with the triage nurse at [facility] transfer line to further elucidate the patient's history. It turns out this was a thrombus within her heart and the treatment was anticoagulants and time. No surgery required for records. Not currently on antibiotics. Patient does take warfarin 7.5 mg daily. Patient is unsure of her other meds. Her sister will go get them. 1950: I have discussed the case with Dr. Yuan, on-call for [facility]. I have reviewed the case with her. She has negative chest x-ray and negative urine. She has no wounds. If this is result of sepsis from infection, the thrombus would be my most likely concern. In discussion with admitting physician, we believe that Rocephin and vancomycin would be the most appropriate choice. Rocephin 1 g IV ordered. Levaquin will be ordered in case hypotension continues. 2009: I did discuss the case with Dr. Agrawal, on-call for ICU and he agrees with antibody choices. We will admit the patient to ICU and await cultures. Blood has been initiated and her blood pressures improved. I attest a focused exam at this time. Admit , inpatient status. Critical condition but stable. ECG Initial ECG Impression Date: May 08, 2018 Initial ECG Impression Time: 17:49 Initial ECG Rate: 83 Initial ECG Rhythm: Normal Sinus Comment Sinus rhythm with nonspecific intraventricular conduction delay. Normal but rightward axis. No evidence of ST elevation HI. Overall similar in appearance to 04/10/18. Interpreted by me. Diagnostic Imaging Diagonstic Imaging: Xray Plain Films/CT/US/NM/MRI: chest Comments [place], [place] NAME: ANNI OLIVARES [employer] REC#: [id number] PT STATUS: REG ER : 1970 PHYSICIAN: GERRI GALLAGHER MD ADMIT DATE: 05/08/18/ER Draft Date of Exam:05/08/18 CHEST 1 VIEW, AP/PA ONLY INDICATION: Line placement. TECHNIQUE: Single view chest at 6:33 PM. CORRELATION STUDY: 04/10/2018 FINDINGS: Right-sided central line is in place via the neck. Tip projects over the expected location of the SVC. Heart size and mediastinum are unremarkable. The lung gordon with chronic type changes. No infiltrate, effusion or pneumothorax. Minimal scarring or atelectasis about the right lung base. Elevation of the right diaphragm is present. IMPRESSION: 1. Right IJ central line tip projects over the SVC. Likely chronic changes of the lung parenchyma. Dictated on workstation # [id number] Dict: 05/08/18 1837 Trans: 05/08/18 1841 [facility] [id number] Interpreted by: AMERICA BURGESS DO Electronically signed by: Diagonstic Imaging: CT Plain Films/CT/US/NM/MRI: head Comments NAME: ANNI OLIVARES [employer] REC#: [id number] PT STATUS: REG ER : 1970 PHYSICIAN: GERRI GALLAGHER MD ADMIT DATE: 05/08/18/ER Signed Date of Exam: 05/08/18 CT HEAD WO PROCEDURE: CT head without contrast. TECHNIQUE: Multiple contiguous axial images were obtained through the brain without the use of intravenous contrast. INDICATION: Dizzy, syncope, fell and hit head today. COMPARISON: None FINDINGS: There is no midline shift or mass effect. The ventricles and sulci are unremarkable. No evidence for acute intracranial hemorrhage, abnormal extra-axial fluid collections or cerebral edema is present. The basilar cisterns are unremarkable. The bony calvarium is intact. The visualized paranasal sinuses and mastoid air cells are clear. IMPRESSION: Negative appearing noncontrast CT of the head. Dictated by: Dictated on workstation # [id number] Dict: 05/08/181835 Trans: 05/08/181836 Interpreted by: AMERICA BURGESS DO Electronically signed by: AMERICA BURGESS DO 05/08/181836 Departure Communication (Admissions) Time/Spoke to Admitting Phy: 19:50 Time/Spoke to Consulting Phy: 20:10 Impression Primary Impression: Severe sepsis Additional Impression: Profound anemia Qualified Codes: D64.9 - Anemia, unspecified Disposition: ADMITTED INPATIENT Condition: Critical Admissions Decision to Admit Reason: Admit from ER (General) Decision to Admit/Date: May 08, 2018 Time/Decision to Admit Time: 19:50 Departure-Patient Inst. Referrals: YANI CESAR MD (PCP/Family) Primary Care Physician GERRI GALLAGHER MD May 08, 2018 19:10
[2018-05-08 19:12] LABS: BILIRUBIN,URINE NEGATIVE (NEGATIVE); CLARITY,URINE CLEAR; COLOR,URINE YELLOW; GLUCOSE, URINE (UA) 4+ (NEGATIVE); KETONES,URINE NEGATIVE (NEGATIVE); LEUKOCYTE ESTERASE ,URINE 1+ (NEGATIVE); NITRITE,URINE NEGATIVE (NEGATIVE); PH,URINE 6.5 (5-9); PROTEIN,URINE 3+ (NEGATIVE); UROBILINOGEN,URINE NORMAL (NORMAL)
[2018-05-08 19:18] LABS: BACTERIA,URINE NEGATIVE /HPF; RBC,URINE 50-100 /HPF; SQUAMOUS EPITHELIAL CELL,UR 0-2 /HPF; WBC,URINE RARE /HPF
[2018-05-08] MEDS ORDERED: NOREPINEPHRINE 4 MG in NS (IVPB) 250 ML IV SCH (20:00)
[2018-05-08] MEDS ORDERED: cefTRIAXone INJECTION 1,000 MG in NS (IVPB) 50 ML IV ONE (20:00)
[2018-05-08 20:45] VITALS: BP 93/45
[2018-05-08 21:00] VITALS: BP 103/53
--- OUTSIDE RECORDS SUMMARY | 2018-05-08 21:19 | XMS REPORT | Encounter Summary ---
Author Author [facility] Organization [facility] Address Unknown Phone Unavailable Care Team Providers Care Dental Instrument Maker Name Role Phone Dave Lorenzana MD PCP Encounter Details Date Type Department Care Team Description 04/18/2018 Pharmacy Visit [facility] [address] [place] [address] Social History Tobacco Use Types Packs/Day Years Used Date Current Every Day Smoker Cigarettes 1 20 Smokeless Tobacco: Never Used Alcohol Use Drinks/Week oz/Week Comments No Sex Assigned at Date Recorded Not on file as of this encounter Functional Status Functional Status Response Date of Assessment Does the patient have a hearing impairment: No 04/11/2018 as of this encounter Plan of Treatment Not on fileas of this encounter Visit Diagnoses Not on filein this encounter
--- OUTSIDE RECORDS SUMMARY | 2018-05-08 21:19 | XMS REPORT | Encounter Summary ---
Author Author [facility] Organization [facility] Address Unknown Phone Unavailable Care Team Providers Care Home Health Caregiver Name Role Phone Dave Lorenzana MD PCP Encounter Details Date Type Department Care Team Description 05/04/2018 Documentation [facility] Caitlyn Krueger MD Physicians - OBGYN [address] [place] [address] [address] [employer] [place] [phone] Social History Tobacco Use Types Packs/Day Years Used Date Current Every Day Smoker Cigarettes 1 20 Smokeless Tobacco: Never Used Alcohol Use Drinks/Week oz/Week Comments No Sex Assigned at Date Recorded Not on file as of this encounter Functional Status Functional Status Response Date of Assessment Does the patient have a hearing impairment: No 04/11/2018 as of this encounter Progress Notes * Catrachita Go LPN - 05/04/2018 2:46 PM CDT Formatting of this note may be different from the original. Catrachita Go LPN Judie, Betty, LPN [facility] Previous Messages ----- Message ----- From: Catrachita Go LPN Sent: 04/26/2018 8:47 AM To: JUAN F Bowen ----- Message ----- From: Catrachita Go LPN Sent: 04/20/2018 1:32 PM To: Catrachita Go LPN GAMAL ----- Message ----- From: Caitlyn Krueger MD Sent: 04/19/2018 6:26 AM To: Catrachita Go LPN, Jeannette Lyons RN, * She's being seen for a hospital follow-up. ----- Message ----- From: Catrachita Go LPN Sent: 04/18/2018 10:25 AM To: Jeannette Lyons RN, Caitlyn Krueger MD, * Mail a letter to contact us. in this encounter Plan of Treatment Not on fileas of this encounter Visit Diagnoses Not on filein this encounter
--- OUTSIDE RECORDS SUMMARY | 2018-05-08 21:19 | XMS REPORT | Encounter Summary ---
Author Author [facility] Organization [facility] Address Unknown Phone Unavailable Care Team Providers Care Rail Splitter Name Role Phone Dave Lorenzana MD PCP Encounter Details Date Type Department Care Team Description 04/18/2018 Pharmacy Visit [facility] [address] [place] [id number] Social History Tobacco Use Types Packs/Day Years [...]
--- OUTSIDE RECORDS SUMMARY | 2018-05-08 21:19 | XMS REPORT | Clinical Summary ---
Author Author [facility] Organization [facility] Address Unknown Phone Unavailable Care Team Providers Care Wildlife Manager Name Role Phone Yani Lorenzana MD PCP Source Comments Some departments are not documenting in the electronic medical record. If you do not see the information that you expected, contact Release of Information in the Health Information Management department at [phone] for further assistance in locating additional records.[facility] Allergies Active Allergy Reactions Severity Noted Date Comments Penicillins HIVES, RASH, SHORTNESS OF Medium 04/10/2018 BREATH Current Medications Prescription Sig. Disp. Refills Start End Date Status Date metFORMIN (GLUCOPHAGE) Take 500 mg by mouth Active 500 mg tablet twice daily with meals. insulin detemir(+) Inject 30 Units under the Active (LEVEMIR FLEXTOUCH U-100 skin at bedtime daily. INSULN) 100 unit/mL (3 mL) injection pen insulin aspart U-100 Inject 8 Units under the 45 mL 3 04/18/20 Active (NOVOLOG FLEXPEN) 100 skin three times daily 18 unit/mL injection PEN with meals. aspirin EC 81 mg tablet Take 1 tablet by mouth 90 tablet 3 04/19/20 Active daily. Take with food. 18 oxyCODONE (ROXICODONE, Take 1-2 tablets by mouth 15 tablet 0 04/18/20 Active OXY-IR) 5 mg tablet every 12 hours as needed 18 For pain vitamins, multi Take 1 tablet by mouth 04/19/20 Active w/minerals 9 mg iron-400 daily. 18 mcg tab carvedilol (COREG) 3.125 Take 1 tablet by mouth 60 tablet 0 04/18/20 Active mg tablet twice daily. Take with 18 food. warfarin (COUMADIN) 7.5 Take 1 tablet by mouth at 30 tablet 0 04/18/ 20 Active mg tablet bedtime daily. 18 atorvastatin (LIPITOR) 80 Take 1 tablet by mouth 30 tablet 0 05/23/20 Active mg tablet daily. 18 lisinopril (PRINIVIL, Take 1 tablet by mouth 30 tablet 0 04/19/20 Active ZESTRIL) 2.5 mg tablet daily. 18 enoxaparin (LOVENOX) 80 Inject 0.8 mL under the 11.2 mL 0 20 Active mg syrg skin twice daily. 18 furosemide (LASIX) 40 mg Take 1 tablet by mouth 30 tablet 0 04/19/20 Active tablet daily. 18 spironolactone Take 1 tablet by mouth 60 tablet 0 20 Active (ALDACTONE) 25 mg tablet twice daily. Take with 18 food. medroxyprogesterone Take 1 tablet by mouth 60 tablet 0 20 Active (PROVERA) 10 mg tablet twice daily. Further 18 scripts to be given by PCP/FOREMAN OR SUPERVISOR AND OPERATOR nystatin (NYSTOP) 100,000 Apply to pannus twice 15 g 0 04/18/20 Active unit/g topical powder daily 18 HYDROcodone/acetaminophen Take 1 tablet by mouth 20 Discontin (NORCO) 7.5/325 mg tablet three times daily 18 ued insulin aspart U-100 Inject 20 Units under the 04/18/20 Discontin (NOVOLOG FLEXPEN) 100 skin three times daily 18 ued unit/mL injection PEN with meals. atorvastatin (LIPITOR) 80 Take 1 tablet by mouth 30 tablet 0 04/19/20 05/22/20 Discontin mg tablet daily. 18 18 ued carvedilol (COREG) 3.125 Take 1 tablet by mouth 60 tablet 0 04/18/20 05/22/20 Discontin mg tablet twice daily. Take with 18 18 ued food. enoxaparin (LOVENOX) 80 Inject 0.79 mL under the 14 Syringe 0 04/18/ 20 05//20 Discontin mg syrg skin twice daily. 18 18 ued furosemide (LASIX) 40 mg Take 1 tablet by mouth 30 tablet 0 /23/20 05/22/20 Discontin tablet daily. 18 18 ued lisinopril (PRINIVIL, Take 1 tablet by mouth 30 tablet 0 05/23/20 05 /22/20 Discontin ZESTRIL) 2.5 mg tablet daily. 18 18 ued medroxyprogesterone Take 1 tablet by mouth 60 tablet 0 04/18/20 Discontin (PROVERA) 10 mg tablet twice daily. Further 18 18 ued scripts to be given by PCP/FOREMAN OR SUPERVISOR AND OPERATOR nystatin (NYSTOP) 100,000 Apply to pannus twice 15 g 0 04/18/20 Discontin unit/g topical powder daily 18 18 ued spironolactone Take 1 tablet by mouth 60 tablet 0 04/18/20 04/18/20 Discontin (ALDACTONE) 25 mg tablet twice daily. Take with 18 18 ued food. warfarin (COUMADIN) 7.5 Take 1 tablet by mouth at 30 tablet 0 04/18/20 Discontin mg tablet bedtime daily. 18 18 ued enoxaparin (LOVENOX) 80 Inject 0.8 mL under the 14 Syringe 0 04/18/20 04/18/20 Discontin mg syrg skin twice daily. 18 18 ued Active Problems Problem Noted Date Hypotension 04/18/2018 Bradycardia 04/18/2018 Acute systolic CHF (congestive heart failure) ([facility]) 04/13/2018 LV (left ventricular) mural thrombus without WI 04/13/2018 Iron deficiency anemia 04/13/2018 Polysubstance abuse 04/13/2018 DM (diabetes mellitus) ([facility]) 04/13/2018 Fibroids 04/13/2018 Mass of heart 04/11/2018 Encounters Date Type Specialty Care Team Description 05/04/2018 Documentation Obstetrics & Gynecology Caitlyn Krueger MD 04/18/2018 Pharmacy Visit 04/18/2018 Pharmacy Visit 04/18/2018 Pharmacy Visit 04/17/2018 Documentation Claudia Contreras 04/17/2018 Pharmacy Visit 04/13/2018 Procedure Pass Cardiology 04/13/2018 Surgery Cardiology Cj Whitaker MD ANGIOGRAPHY CORONARY ARTERY WITH RIGHT HEART CATHETERIZATION 04/11/2018 Procedure Pass 04/11/2018 Procedure Pass 04/11/2018 Procedure Pass 04/10/2018 [facility] Yani Tomlinson MD Mass of heart - Encounter Tiana Randolph MD 04/18/2018 Concetta Vazquez MD 04/10/2018 Hospital Radiology Encounter 04/10/2018 Hospital Radiology Encounter from Last 3 Months Family History Medical History Relation Name Comments Diabetes Brother Joseph Diabetes Mother Diabetes Sister Mylene Relation Name Status Comments Brother Joseph Alive Mother Sister Mylene Social History Tobacco Use Types Packs/Day Years Used Date Current Every Day Smoker Cigarettes 1 20 Smokeless Tobacco: Never Used Alcohol Use Drinks/Week oz/Week Comments No Sex Assigned at Date Recorded Not on file Last Filed Vital Signs Vital Sign Reading Time Taken Blood Pressure 113/68 04/18/2018 11:50 AM CDT Pulse 82 04/18/2018 11:50 AM CDT Temperature 36.5 C (97.7 F) 04/18/2018 11:50 AM CDT Respiratory Rate - - Oxygen Saturation 99% 04/18/2018 11:50 AM CDT Inhaled Oxygen - - Concentration Weight 78.5 kg (173 lb 1 oz) 04/18/2018 7:30 AM CDT Height 180.3 cm (5' 11") 04/13/2018 8:53 AM CDT Body Mass Index 24.14 04/18/2018 7:30 AM CDT Plan of Treatment Health Maintenance Due Date Last Done Comments PHYSICAL (COMPREHENSIVE) 1975 EXAM PERTUSSIS VACCINE 1979 TETANUS VACCINE 1985 BREAST CANCER SCREENING 2008 COLORECTAL CANCER 2018 SCREENING INFLUENZA VACCINE 08/28/2018 CERVICAL CANCER SCREENING 04/14/2021 04/14/2018 HIV SCREENING Completed 04/11/2018 Procedures Procedure Name Priority Date/Time Associated Diagnosis Comments PROCEDURE RECORD-SCAN 04/19/2018 Results for this 3:06 PM CDT procedure are in the results section. TELEMETRY STRIPS-SCAN 04/19/2018 Results for this 2:18 PM CDT procedure are in the results section. ECG-SCAN 04/19/2018 Results for this 2:17 PM CDT procedure are in the results section. ECG-SCAN 04/16/2018 Results for this 9:20 AM CDT procedure are in the results section. ECG-SCAN 04/16/2018 Results for this 9:20 AM CDT procedure are in the results section. ECG-SCAN 04/16/2018 Results for this 9:20 AM CDT procedure are in the results section. CONSULT IV THERAPY TEAM STAT 04/12/2018 7:45 AM CDT CONSULT IV THERAPY TEAM Routine 04/12/2018 12:42 AM CDT from Last 3 Months Results * PROCEDURE RECORD-SCAN (04/19/2018 3:06 PM) Narrative Ordered by an unspecified provider. * TELEMETRY STRIPS-SCAN (04/19/2018 2:18 PM) Narrative Ordered by an unspecified provider. * ECG-SCAN (04/19/2018 2:17 PM) Narrative Ordered by an unspecified provider. * POC GLUCOSE (04/18/2018 5:07 PM) Only the most recent of 40 results within the time period is included. Component Value Ref Range Glucose, POC 244 (H) 70 - 100 MG/DL Specimen Performing Laboratory [facility] [address] [place] [id number] * PROTIME INR (PT) (04/18/2018 5:11 AM) Only the most recent of 6 results within the time period is included. Component Value Ref Range INR 1.2 0.8 - 1.2 Specimen Performing Laboratory Blood MAIN LAB [address] [place] [address] * CBC AND DIFF (04/18/2018 5:11 AM) Only the most recent of 8 results within the time period is included. Component Value Ref Range White Blood Cells 5.9 4.5 - 11.0 K/UL RBC 3.60 (L) 4.0 - 5.0 M/UL Hemoglobin 7.9 (L) 12.0 - 15.0 GM/DL Hematocrit 26.7 (L) 36 - 45 % MCV 74.1 (L) 80 - 100 FL MCH 22.0 (L) 26 - 34 PG MCHC 29.7 (L) 32.0 - 36.0 G/DL RDW >40.0 (H) 11 - 15 % Platelet Count 435 (H) 150 - 400 K/UL MPV 8.4 7 - 11 FL Neutrophils 63 41 - 77 % Lymphocytes 22 (L) 24 - 44 % Monocytes 10 4 - 12 % Eosinophils 4 0 - 5 % Basophils 1 0 - 2 % Absolute Neutrophil Count 3.80 1.8 - 7.0 K/UL Absolute Lymph Count 1.30 1.0 - 4.8 K/UL Absolute Monocyte Count 0.60 0 - 0.80 K/UL Absolute Eosinophil Count 0.20 0 - 0.45 K/UL Absolute Basophil Count 0.00 0 - 0.20 K/UL Specimen Performing Laboratory Blood MAIN LAB [address] [place] [address] * MAGNESIUM (04/18/2018 5:11 AM) Only the most recent of 9 results within the time period is included. Component Value Ref Range Magnesium 1.7 1.6 - 2.6 mg/dL Specimen Performing Laboratory Blood [facility] [address] [place] [place] [id number] * COMPREHENSIVE METABOLIC PANEL (04/18/2018 5:11 AM) Only the most recent of 8 results within the time period is included. Component Value Ref Range Sodium 135 (L) 137 - 147 MMOL/L Potassium 4.0 3.5 - 5.1 MMOL/L Chloride 97 (L) 98 - 110 MMOL/L Glucose 253 (H) 70 - 100 MG/DL Blood Urea Nitrogen 16 7 - 25 MG/DL Creatinine 0.63 0.4 - 1.00 MG/DL Calcium 9.5 8.5 - 10.6 MG/DL Total Protein 5.6 (L) 6.0 - 8.0 G/DL Total Bilirubin 0.4 0.3 - 1.2 MG/DL Albumin 3.1 (L) 3.5 - 5.0 G/DL Alk Phosphatase 83 25 - 110 U/L AST (SGOT) 34 7 - 40 U/L CO2 33 (H) 21 - 30 MMOL/L ALT (SGPT) 16 7 - 56 U/L Anion Gap 5 3 - 12 eGFR Non >60 >60 mL/min Comment: The eGFR is not validated for use in drug dosing adjustments.Continue to use estimated creatinine clearance per dosing reference text.Please contact the Clinical Pharmacist for questions. eGFR >60 >60 mL/min Comment: The eGFR is not validated for use in drug dosing adjustments.Continue to use estimated creatinine clearance per dosing reference text.Please contact the Clinical Pharmacist for questions. Specimen Performing Laboratory Blood [facility] [address] [place] [address] * PTT (APTT) (04/17/2018 8:30 AM) Only the most recent of 19 results within the time period is included. Component Value Ref Range APTT 81.1 (H) 21.0 - 39.0 SEC Specimen Performing Laboratory Blood [facility] [address] [place] [address] * ECG-SCAN (04/16/2018 9:20 AM) Narrative Ordered by an unspecified provider. * ECG-SCAN (04/16/2018 9:20 AM) Narrative Ordered by an unspecified provider. * ECG-SCAN (04/16/2018 9:20 AM) Narrative Ordered by an unspecified provider. * PAP THIN PREP (04/14/2018 3:21 PM) Component Value Ref Range Cytology [facility] [email or web address] Department of Pathology and Laboratory Medicine [address] [place] [address]. Office:[phone] CYTOLOGY REPORT NAME: BETINA OLIVARES CYTOLOGY #: [id number] MR #: [id number] ALT ID #:[id number] #: [id number] LOCATION: [facility] DATE OF PROCEDURE: 04/14/2018 15:21 AGE:48 SEX: F DATE RECEIVED: 04/17/2018 : 1970 TIME RECEIVED: 15:21 PHYSICIAN: YANI TOMLINSON DATE OF REPORT: 04/20/2018 COPY TO: CONCETTA PATEL DATE OF PRINTIN04/20/2018 HISTORY: Date of Last Menstrual Period: 04/04/18 Menstrual History: Regular Contraceptive History: None Cancer History: No history cancer Infection History: None Given Treatment History: None Other Clinical Conditions: Bleeding, abnormal Other-Please Specify MATERIAL RECEIVED: A: Thin Prep Pap Test-Cervical /Vaginal Cytologic Material ################################################## ###################### Final Diagnosis: A.Thin Prep Pap Test-Cervical /Vaginal Cytologic Material: Satisfactory for evaluation. Quality Indicator: Endocervical/transformation component is present. Negative for intraepithelial lesion or malignancy. Shift in adelfo suggestive of bacterial vaginosis. This specimen was sent for HPV testing.See comment for HPV testing results. As a part of our quality supervisor program, this case has been rescreened by a director government. Comment HPV, High Risk: Negative [employer] Gen-Probe APTIMA HR-HPV Assay is a FDA approved in vitro nucleic acid amplification test for the qualitative detection of E6/E7 viral messenger RNA (mRNA) from 14 high-risk types of human papillomavirus (HPV) in cervical specimens. The high-risk HPV types detected by the assay include: 16, 18, 31, 33, 35, 39, 45, 51, 52, 56, 58, 59, 66, and 68.The assay has been validated by the Department of Pathology and Laboratory Medicine at [facility] using [employer] System. Attestation: By this signature, I attest that I have personally formulated the final interpretation expressed in this report and that the above diagnosis is based upon my examination of the slides and/or other material indicated in this report. clk/04/20/2018 +++Electronically Signed Out By CIERA Pineda(ASCP)+++ CIERA Uriarte (ASCP) Cervical cytology is a SCREENING TEST primarily for detecting cancers and precancerous lesions.This screening test has a well documented false negative rate.Your patient's pap test results should be interpreted in conjunction with history and clinical findings.Reported using [employer] terminology. ################################################## ###################### Specimen Performing Laboratory [facility] RESULTS * SURGICAL PATHOLOGY (04/14/2018 12:26 PM) Component Value Ref Range PATHOLOGY REPORT [facility] [email or web address] Department of Pathology and Laboratory Medicine [address] [place] [id number] Surgical Pathology Office:[phone]:[phone] SURGICAL PATHOLOGY REPORT NAME: BETINA OLIVARES SURG PATH #: [id number] MR #: [id number] SPECIMEN CLASS: SR BILLING #: [id number] ALT ID #:LOCATION: [id number] DATE OF PROCEDURE: 04/14/2018 AGE:48 SEX: F DATE RECEIVED: 04/14/2018 : 1970TIME RECEIVED: 12:26 PHYSICIAN: CONCETTA VAZQUEZ MD DATE OF REPORT: 04/16/2018 COPY TO: HECTOR Riley DATE OF PRINTIN04/16/2018 ################################################## ###################### Final Diagnosis: A. endometrial biopsy: Minute fragments of benign endometrial epithelium and endocervical glandular mucosa. No evidence of hyperplasia, dysplasia or malignancy identified. Attestation: By this signature, I attest that I have personally formulated the final interpretation expressed in this report and that the above diagnosis is based upon my examination of the slides and/or other material indicated in this report. +++ +++ lonnie/04/14/2018 ################################################## ###################### Material Received: A: endometrial biopsy History: 48-year-old female with history of heavy bleeding and enlarged fibroid uterus. Gross Description: A. Received in formalin labeled "EMB" is a 2.2 x 1.0 x 0.3 cm aggregate of irregular, chance-brown, friable, soft tissue fragments admixed with clotted blood elements. The specimen is filtered and submitted entirely in cassette A1. (tn) chance/04/14/2018 Specimen Performing Laboratory [facility] RESULTS * CARDIAC CATH REPORT (04/13/2018 10:30 AM) Specimen Performing Laboratory OTHER OUTSIDE LAB Procedure Note Cj Whitaker MD - 04/13/2018 10:30 AM CDT Formatting of this note may be different from the original. [facility] CARDIAC CATHETERIZATION REPORT Page 2 BETINA Adhikari : 1970 LNECHO#: [id number] [facility] MR #/Billing ID #: [id number] / [id number] DATE: 04/13/2018 BROOMMAKING SUPERVISOR: Cj Whitaker MD DICTATING PROVIDER: Cj Whitaker MD REFERRING PHYSICIAN: REFERRAL SELF PROCEDURES: 1. Selective coronary arteriogram. 2. Aortogram. 3. Right heart cardiac catheterization with measurements of right-sided pressures and cardiac output by thermodilution method. INDICATION: Ms. Olivares is a 48-year-old patient who was admitted with a large left ventricular apical thrombus. The patient's troponins were elevated. It appears to be a possible non ST elevation myocardial infarction versus demand ischemia. Patient is also noted to have cardiomyopathy with severe left ventricular dysfunction. Procedure was discussed at length with Ms. Olivares. The patient's Barbeau test was completely flat. It was decided to proceed for a right and left heart cardiac catheterization via right femoral approach. ANESTHESIA: IV Versed and fentanyl. Moderate sedation was given under my supervision and supervision of the cardiac catheterization laboratory staff. PROCEDURE NOTE: Once informed consent was obtained, patient was brought to the cardiac catheterization laboratory. Both groins were prepped in the usual aseptic technique. A 5-Israeli sheath was placed into the right common femoral artery under local anesthesia under fluoroscopic examination. An 8-Israeli sheath was placed in the right common femoral vein. Selective coronary arteriograms were obtained using Emmanuelle JL4 and JR4 catheters. It was noted that the patient's LAD appeared to be a small type 2 vessel. It did not reach the apex. So, I did perform an aortogram. This was to make sure that there was no anomalous LAD origin. None was noted. Also, on delayed cine I did not notice any stump of the LAD. The procedure of left heart was completed. The catheters were removed over the wire. We then performed a right heart cardiac catheterization by a balloon-tipped [place] -Liza catheter. This was floated via the right femoral venous sheath. Hemodynamic measurements of the right heart were obtained. Cardiac output was measured by thermodilution method. The [place]-Liza catheter was then removed. Sheaths were left in the right groin, and patient transferred back to telemetry. Patient tolerated the procedure well, and there were no complications noted. TOTAL CONTRAST USED: 145 mL of Visipaque 320. TOTAL FLUORO TIME: 4.6 minutes. HEMODYNAMICS: Right atrial mean pressure was 16 mmHg. Right ventricular pressure is 45/11 mmHg. Right ventricular end-diastolic pressures were 20 mmHg. Pulmonary arterial pressures were 45/24 mmHg. Pulmonary arterial mean pressure was 32 mmHg. Pulmonary capillary wedge pressure was 25 mmHg. Transpulmonary gradient was noted to be 7 mmHg. Aortic pressures were 85/56 mmHg. Left ventricular pressures were not measured as patient has a large left ventricular apical thrombus. Cardiac output by thermodilution method was 5.6 L with a cardiac index of 2.69 L /minute per sq m body surface area. Cardiac output as estimated by Derek was 6.2 L/minute with a cardiac index of 2.98 L/minute per sq m body surface area. Pulmonary vascular resistance is calculated to be 1.18 units. Oxygen saturation measured in the right atrium was 57%. Pulmonary artery was 55% and in the femoral artery was 97%. SELECTIVE CORONARY ARTERIOGRAM: 1. Left main: Left main coronary artery arises normally from the left coronary sinus. The left main artery appears to be patent. 2. Left circumflex artery is a relatively small vessel, arises normally from the left main, and it is noted to be patent. 3. Ramus intermedius is a small vessel. Once again, it arises normally from the left main. It is noted to be patent. 4. Left anterior descending artery arises normally from the left main. The left anterior descending artery seems to follow a path which looks like actually a diagonal artery. However, this is the artery because there was no other anomalous LAD noted. Also, no stump was noted. It is a type 2 vessel. It reaches the apex, does not wrap around the apex. No significant lesions are noted in this left anterior descending artery. 5. Right coronary artery: The right coronary artery is a large, dominant vessel. It arises normally from the right coronary sinus. It is noted to be patent. It gives rise to large posterolateral and posterior descending arterial branches. This does seem to supply the apical part of the left ventricle. AORTOGRAM: Aortogram was obtained in 30 degree VINCE projection. The aortogram reveals a single left main arising from the left coronary sinus and a right coronary artery arising from the right coronary sinus. No other anomalous artery was noted to arise from the aorta. FINAL IMPRESSION: 1. Normal coronary arteries. 2. Large right dominant system. 3. Elevated pulmonary capillary wedge pressures as well as elevated filling pressures. RECOMMENDATION: Continue to optimize medical treatment and continue IV diuresis. Cj Whitaker MD AM/Bin /[id number] P cc: - REFERRAL SELF MD Cj Santa MD * O2HGB SAT-VENOUS POC (04/13/2018 10:16 AM) Only the most recent of 3 results within the time period is included. Component Value Ref Range O2HGB SAT-Venous POC 55.1 55 - 71 % Specimen Performing Laboratory [facility] [address] [place] [id number] * POC ACTIVATED CLOTTING TIME (04/13/2018 9:59 AM) Component Value Ref Range Activated Clotting Time 169 s Specimen Performing Laboratory [facility] [address] [place] [id number] * TROPONIN-I (04/12/2018 4:00 PM) Only the most recent of 8 results within the time period is included. Component Value Ref Range Troponin-I 1.87 (H) 0.0 - 0.05 NG/ML Specimen Performing Laboratory [facility] LAB [address] [place] [address] * BASIC METABOLIC PANEL (04/12/2018 4:00 PM) Component Value Ref Range Sodium 136 (L) 137 - 147 MMOL/L Potassium 3.7 3.5 - 5.1 MMOL/L Chloride 103 98 - 110 MMOL/L CO2 27 21 - 30 MMOL/L Anion Gap 6 3 - 12 Glucose 66 (L) 70 - 100 MG/DL Blood Urea Nitrogen 14 7 - 25 MG/DL Creatinine 0.53 0.4 - 1.00 MG/DL Calcium 8.6 8.5 - 10.6 MG/DL eGFR Non >60 >60 mL/min Comment: The eGFR is not validated for use in drug dosing adjustments.Continue to use estimated creatinine clearance per dosing reference text.Please contact the Clinical Pharmacist for questions. eGFR >60 >60 mL/min Comment: The eGFR is not validated for use in drug dosing adjustments.Continue to use estimated creatinine clearance per dosing reference text.Please contact the Clinical Pharmacist for questions. Specimen Performing Laboratory Blood [facility] [address] [place] [address] * US PELVIS NON OB COMP (04/11/2018 7:30 PM) Specimen Performing Laboratory [facility] RAD RESULTS Impressions 1.Enlarged fibroid uterus, predominantly intramural, with a lesser submucosal component. 2.Limited evaluation of the endometrium without obvious mass or thickening. 3.Bilateral ovarian cysts. No evidence of solid adnexal mass. If more detailed evaluation of the cystic adnexal lesions is clinically indicated, contrast-enhanced MRI of the pelvis could be obtained. Approved by Abi Santiago M.D. on 04/12/2018 10:06 AM By my electronic signature, I attest that I have personally reviewed the images for this examination and formulated the interpretations and opinions expressed in this report Finalized by Gee Braswell M.D. on 04/12/2018 5:11 PM. Dictated by Abi Santiago M.D. on 04/12/2018 8:05 AM. Narrative ULTRASOUND OF THE PELVIS HISTORY: abnormal uterine bleeding. . Unknown LMP. TECHNIQUE: Multiple real time haque scale sonographic images were obtained of the pelvis transabdominally only. Transvaginal imaging was not performed due to large uterine size. COMPARISON: Correlation with same day CT abdomen pelvis FINDINGS: The uterus is enlarged and heterogeneous measuring 19.7 x 12.6 x 12.9 cm. At least two hypoechoic predominantly intramural, with lesser submucosal component , uterine masses are identified, most consistent with fibroids. The largest is within the anterior uterine body and fundus measuring up to 8.4 cm. This causes mild posterior displacement of the low fundal endometrium. The endometrium is measures approximately 0.4 cm in thickness. No endometrial mass identified. The right ovary measures 4.8 x 2.4 x 4.2 cm. Right ovarian blood flow is normal with resistive index of 0.48. Thin-walled right ovarian cyst measures up to 2.6 cm. The left ovary measures 7.6 x 3.1 x 4.5 cm. Left ovarian blood flow is normal with resistive index of 0.66. Large, thin-walled left ovarian cyst measuring up to 4.6 cm. No internal blood flow demonstrated within the cyst. No solid adnexal masses are present. No significant pelvic free fluid is identified. Procedure Note Interface, Radiant Results - 04/12/2018 5:14 PM CDT ULTRASOUND OF THE PELVIS HISTORY: abnormal uterine bleeding. . Unknown LMP. TECHNIQUE: Multiple real time haque scale sonographic images were obtained of the pelvis transabdominally only. Transvaginal imaging was not performed due to large uterine size. COMPARISON: Correlation with same day CT abdomen pelvis FINDINGS: The uterus is enlarged and heterogeneous measuring 19.7 x 12.6 x 12.9 cm. At least two hypoechoic predominantly intramural, with lesser submucosal component , uterine masses are identified, most consistent with fibroids. The largest is within the anterior uterine body and fundus measuring up to 8.4 cm. This causes mild posterior displacement of the low fundal endometrium. The endometrium is measures approximately 0.4 cm in thickness. No endometrial mass identified. The right ovary measures 4.8 x 2.4 x 4.2 cm. Right ovarian blood flow is normal with resistive index of 0.48. Thin-walled right ovarian cyst measures up to 2.6 cm. The left ovary measures 7.6 x 3.1 x 4.5 cm. Left ovarian blood flow is normal with resistive index of 0.66. Large, thin-walled left ovarian cyst measuring up to 4.6 cm. No internal blood flow demonstrated within the cyst. No solid adnexal masses are present. No significant pelvic free fluid is identified. IMPRESSION 1. Enlarged fibroid uterus, predominantly intramural, with a lesser submucosal component. 2. Limited evaluation of the endometrium without obvious mass or thickening. 3. Bilateral ovarian cysts. No evidence of solid adnexal mass. If more detailed evaluation of the cystic adnexal lesions is clinically indicated, contrast-enhanced MRI of the pelvis could be obtained. Approved by Abi Santiago M.D. on 04/12/2018 10:06 AM By my electronic signature, I attest that I have personally reviewed the images for this examination and formulated the interpretations and opinions expressed in this report Finalized by Gee Braswell M.D. on 04/12/2018 5:11 PM. Dictated by Abi Santiago M.D. on 04/12/2018 8:05 AM. * BETA-HCG (04/11/2018 12:00 PM) Component Value Ref Range Beta-HCG,Serum 1 <5 U/L Specimen Performing Laboratory [facility] [address] [place] [address] * 2-D + DOPPLER ECHOCARDIOGRAM (04/11/2018 10:40 AM) Component Value Ref Range IVS 1.15 0.6 - 0.9 cm LVIDD 5.71 3.8 - 5.2 cm LVIDS 4.75 2.2 - 3.5 cm PW 1.09 0.6 - 0.9 cm TDI e' 0.12 m/s Right Ventricular Mid 3.76 1.9 - 3.5 cm Diameter LA size 4.06 2.7 - 3.8 cm LA volume 58.82 22 - 52 mL Right Atrial Area 17.57 <18 cm2 Right Atrial Major 4.72 2.2 - 2.8 cm Dimension AV peak velocity 1.15 m/s MV Peak E Evan PW 1.08 m/s Right Heart Systolic 1.84 >1.7 cm Mmode TAPSE Right Ventricular Basal 4.54 2.5 - 4.1 cm Diameter Sinus 3.34 2.7 - 3.3 cm BSA 2.1 m2 FS 16.81 28 - 44 % EF 28.58 % Left Atrium Index 28.01 16 - 34 E/E' ratio 9.00 LV mass 263.75 66 - 150 g RWT 0.38 <=0.42 TV rest pulmonary artery 53 mmHg pressure Right Heart Systolic TDI 0.130 m/s S' Cardiology Ultrasound Siemens [id number] Machine Left Ventricle Mass Index 125.60 44 - 88 g/m2 ECHO EF 15 % Specimen Performing Laboratory OTHER OUTSIDE LAB Narrative 1. Moderately dilated LV with severely reduced EF=15%. 2. Massive large thrombus filling up the majority of LV apex, with base of the thrombus is attached to apical wall but large portion of thrombus is highly mobile. LV thrombus has appearance of mushroom in contrast images. 3. Global hypokinesis of LV with akinetic mid to distal LV segments. 4. Mild RV dilation with mild to moderate RV dysfunction. 5. Mild to moderate TR. 6. CVP>15 mmHg with elevated pulmonary artery pressure PASP=53 mmHg. 7. Small pericardial effusion. No prior study available for comparison. High risk of cardio-embolization due to high mobility of the massive LV thrombus size. Ordering provider notified by text page. * CT ABD/PELV W CONTRAST (04/11/2018 6:29 AM) Specimen Performing Laboratory [facility] RESULTS Impressions CHEST: 1.Left ventricular mass, which may reflect a myxoma, thrombus, or metastasis. Biopsy is recommended for further evaluation. 2.Mild cardiomegaly with pulmonary venous congestion and interstitial edema. 3.Moderate bilateral pleural effusions with subjacent atelectasis. 4.Small right lower lobe nodule, which is nonspecific, though may represent round scarring, noncalcified granuloma, or atelectasis. ABDOMEN AND PELVIS: 1.Ovoid masses in the uterus, most reflective of fibroids. Uterine malignancy is not entirely excluded. 2.Prominence of the bilateral ovaries, greater on the left. Correlation with pelvic ultrasound is recommended. 3.Wedge-shaped hypodensities in the bilateral kidneys, greater on the right , suspicious for bilateral renal infarcts. 4.No significant abdominopelvic lymphadenopathy. Mildly prominent retroperitoneal lymph nodes, likely reactive. 5.Trace ascites, mesenteric congestion, and diffuse body wall edema, compatible with anasarca. Approved by Aftab Mendoza M.D. on 04/11/2018 9:21 AM By my electronic signature, I attest that I have personally reviewed the images for this examination and formulated the interpretations and opinions expressed in this report Finalized by Chung Harrison M.D. on 04/11/2018 4:57 PM. Dictated by Aftab Mendoza M.D. on 04/11/2018 7:[address] CHEST, ABDOMEN AND PELVIS Clinical Indication:Female, 48 years old. Left ventricular mass, diffuse abdominal pain Technique: Multiple contiguous axial images were obtained through the chest, abdomen and pelvis following the administration of IV contrast material. Portal venous phase of postcontrast imaging was obtained. Post processing coronal and sagittal reconstruction images were made from the axial images. IV contrast: Isovue-370 Bowel contrast:None Comparison: None CHEST FINDINGS: Lower Neck: Unremarkable Axilla, Mediastinum and Hemalatha: No axillary lymphadenopathy. Mildly prominent mediastinal and hilar nodes. Heart and Great Vessels: The heart is mildly enlarged. There is a mass within the left ventricle which measures 3.3 x 2.4 x 3.3 cm (series 7 image 46, series 11 image 60). The thoracic aorta is normal in caliber. Airway, Lungs and Pleura: Moderate bilateral pleural effusions, greater on the right, with subjacent atelectasis. There is prominence of the pulmonary veins. There is diffuse interstitial prominence, likely edema. There is a 0.6 cm nodular opacity in the right lower lobe (series 7 image 42). Chest Wall and Osseous Structures: Diffuse body wall edema. Mild thoracic spondylosis. No destructive osseous lesion. ABDOMEN AND PELVIS FINDINGS: Liver and Biliary system: The liver is normal in size. No discrete hepatic lesion. Prior cholecystectomy. No biliary ductal dilatation. Major portal veins are patent. Spleen: Unremarkable. Adrenal Glands and Kidneys: The adrenal glands are unremarkable. There are patchy hypodensities in the right kidney. Additional small patchy hypodensity in the left kidney. Probable well-defined cortical lesion measuring 1.0 cm in the right kidney (series 9 image 33), which is too small to characterize, though likely a cyst. No nephrolithiasis or hydronephrosis. Pancreas and Retroperitoneum: The pancreas is unremarkable. Prominent to mildly enlarged retroperitoneal lymph nodes. A primary care sales representative aortocaval caval node measures 1.1 x 0.9 cm (series 9 image 36). Aorta and Major Vessels: There is soft plaque in the infrarenal abdominal aorta and mild calcified atherosclerotic plaque in the common iliac arteries. The inferior vena cava is dilated. Bowel, Mesentery and Peritoneal space: The small and large bowel are normal in caliber. Normal appendix. No free air. Trace perihepatic ascites. Mild mesenteric congestion. Pelvis: The urinary bladder is partially opacified and decompressed. The uterus is enlarged with nodular soft tissue masses, reflective of fibroid uterus. Prominent left ovary measuring 4.7 x 3.7 cm. Prominent right ovary measuring 4.3 x 3.1 cm. No pelvic lymphadenopathy. Abdominal wall and Osseous Structures: There is diffuse body wall edema. Lumbar spondylosis. No destructive osseous lesion. Procedure Note Interface, Radiant Results - 04/11/2018 5:[address] CHEST, ABDOMEN AND PELVIS Clinical Indication: Female, 48 years old. Left ventricular mass, diffuse abdominal pain Technique: Multiple contiguous axial images were obtained through the chest, abdomen and pelvis following the administration of IV contrast material. Portal venous phase of postcontrast imaging was obtained. Post processing coronal and sagittal reconstruction images were made from the axial images. IV contrast: Isovue-370 Bowel contrast: None Comparison: None CHEST FINDINGS: Lower Neck: Unremarkable Axilla, Mediastinum and Hemalatha: No axillary lymphadenopathy. Mildly prominent mediastinal and hilar nodes. Heart and Great Vessels: The heart is mildly enlarged. There is a mass within the left ventricle which measures 3.3 x 2.4 x 3.3 cm (series 7 image 46, series 11 image 60). The thoracic aorta is normal in caliber. Airway, Lungs and Pleura: Moderate bilateral pleural effusions, greater on the right, with subjacent atelectasis. There is prominence of the pulmonary veins. There is diffuse interstitial prominence, likely edema. There is a 0.6 cm nodular opacity in the right lower lobe (series 7 image 42). Chest Wall and Osseous Structures: Diffuse body wall edema. Mild thoracic spondylosis. No destructive osseous lesion. ABDOMEN AND PELVIS FINDINGS: Liver and Biliary system: The liver is normal in size. No discrete hepatic lesion. Prior cholecystectomy. No biliary ductal dilatation. Major portal veins are patent. Spleen: Unremarkable. Adrenal Glands and Kidneys: The adrenal glands are unremarkable. There are patchy hypodensities in the right kidney. Additional small patchy hypodensity in the left kidney. Probable well-defined cortical lesion measuring 1.0 cm in the right kidney (series 9 image 33), which is too small to characterize, though likely a cyst. No nephrolithiasis or hydronephrosis. Pancreas and Retroperitoneum: The pancreas is unremarkable. Prominent to mildly enlarged retroperitoneal lymph nodes. A primary care sales representative aortocaval caval node measures 1.1 x 0.9 cm (series 9 image 36). Aorta and Major Vessels: There is soft plaque in the infrarenal abdominal aorta and mild calcified atherosclerotic plaque in the common iliac arteries. The inferior vena cava is dilated. Bowel, Mesentery and Peritoneal space: The small and large bowel are normal in caliber. Normal appendix. No free air. Trace perihepatic ascites. Mild mesenteric congestion. Pelvis: The urinary bladder is partially opacified and decompressed. The uterus is enlarged with nodular soft tissue masses, reflective of fibroid uterus. Prominent left ovary measuring 4.7 x 3.7 cm. Prominent right ovary measuring 4.3 x 3.1 cm. No pelvic lymphadenopathy. Abdominal wall and Osseous Structures: There is diffuse body wall edema. Lumbar spondylosis. No destructive osseous lesion. IMPRESSION CHEST: 1. Left ventricular mass, which may reflect a myxoma, thrombus, or metastasis. Biopsy is recommended for further evaluation. 2. Mild cardiomegaly with pulmonary venous congestion and interstitial edema. 3. Moderate bilateral pleural effusions with subjacent atelectasis. 4. Small right lower lobe nodule, which is nonspecific, though may represent round scarring, noncalcified granuloma, or atelectasis. ABDOMEN AND PELVIS: 1. Ovoid masses in the uterus, most reflective of fibroids. Uterine malignancy is not entirely excluded. 2. Prominence of the bilateral ovaries, greater on the left. Correlation with pelvic ultrasound is recommended. 3. Wedge-shaped hypodensities in the bilateral kidneys, greater on the right, suspicious for bilateral renal infarcts. 4. No significant abdominopelvic lymphadenopathy. Mildly prominent retroperitoneal lymph nodes, likely reactive. 5. Trace ascites, mesenteric congestion, and diffuse body wall edema, compatible with anasarca. Approved by Aftab Mendoza M.D. on 04/11/2018 9:21 AM By my electronic signature, I attest that I have personally reviewed the images for this examination and formulated the interpretations and opinions expressed in this report Finalized by Chung Harrison M.D. on 04/11/2018 4:57 PM. Dictated by Aftab Mendoza M.D. on 04/11/2018 7:57 AM. * CT CHEST W CONTRAST (04/11/2018 6:29 AM) Specimen Performing Laboratory [facility] RESULTS Impressions CHEST: 1.Left ventricular mass, which may reflect a myxoma, thrombus, or metastasis. Biopsy is recommended for further evaluation. 2.Mild cardiomegaly with pulmonary venous congestion and interstitial edema. 3.Moderate bilateral pleural effusions with subjacent atelectasis. 4.Small right lower lobe nodule, which is nonspecific, though may represent round scarring, noncalcified granuloma, or atelectasis. ABDOMEN AND PELVIS: 1.Ovoid masses in the uterus, most reflective of fibroids. Uterine malignancy is not entirely excluded. 2.Prominence of the bilateral ovaries, greater on the left. Correlation with pelvic ultrasound is recommended. 3.Wedge-shaped hypodensities in the bilateral kidneys, greater on the right , suspicious for bilateral renal infarcts. 4.No significant abdominopelvic lymphadenopathy. Mildly prominent retroperitoneal lymph nodes, likely reactive. 5.Trace ascites, mesenteric congestion, and diffuse body wall edema, compatible with anasarca. Approved by Aftab Mendoza M.D. on 04/11/2018 9:21 AM By my electronic signature, I attest that I have personally reviewed the images for this examination and formulated the interpretations and opinions expressed in this report Finalized by Chung Harrison M.D. on 04/11/2018 4:57 PM. Dictated by Aftab Mendoza M.D. on 04/11/2018 7:[address] CHEST, ABDOMEN AND PELVIS Clinical Indication:Female, 48 years old. Left ventricular mass, diffuse abdominal pain Technique: Multiple contiguous axial images were obtained through the chest, abdomen and pelvis following the administration of IV contrast material. Portal venous phase of postcontrast imaging was obtained. Post processing coronal and sagittal reconstruction images were made from the axial images. IV contrast: Isovue-370 Bowel contrast:None Comparison: None CHEST FINDINGS: Lower Neck: Unremarkable Axilla, Mediastinum and Hemalatha: No axillary lymphadenopathy. Mildly prominent mediastinal and hilar nodes. Heart and Great Vessels: The heart is mildly enlarged. There is a mass within the left ventricle which measures 3.3 x 2.4 x 3.3 cm (series 7 image 46, series 11 image 60). The thoracic aorta is normal in caliber. Airway, Lungs and Pleura: Moderate bilateral pleural effusions, greater on the right, with subjacent atelectasis. There is prominence of the pulmonary veins. There is diffuse interstitial prominence, likely edema. There is a 0.6 cm nodular opacity in the right lower lobe (series 7 image 42). Chest Wall and Osseous Structures: Diffuse body wall edema. Mild thoracic spondylosis. No destructive osseous lesion. ABDOMEN AND PELVIS FINDINGS: Liver and Biliary system: The liver is normal in size. No discrete hepatic lesion. Prior cholecystectomy. No biliary ductal dilatation. Major portal veins are patent. Spleen: Unremarkable. Adrenal Glands and Kidneys: The adrenal glands are unremarkable. There are patchy hypodensities in the right kidney. Additional small patchy hypodensity in the left kidney. Probable well-defined cortical lesion measuring 1.0 cm in the right kidney (series 9 image 33), which is too small to characterize, though likely a cyst. No nephrolithiasis or hydronephrosis. Pancreas and Retroperitoneum: The pancreas is unremarkable. Prominent to mildly enlarged retroperitoneal lymph nodes. A primary care sales representative aortocaval caval node measures 1.1 x 0.9 cm (series 9 image 36). Aorta and Major Vessels: There is soft plaque in the infrarenal abdominal aorta and mild calcified atherosclerotic plaque in the common iliac arteries. The inferior vena cava is dilated. Bowel, Mesentery and Peritoneal space: The small and large bowel are normal in caliber. Normal appendix. No free air. Trace perihepatic ascites. Mild mesenteric congestion. Pelvis: The urinary bladder is partially opacified and decompressed. The uterus is enlarged with nodular soft tissue masses, reflective of fibroid uterus. Prominent left ovary measuring 4.7 x 3.7 cm. Prominent right ovary measuring 4.3 x 3.1 cm. No pelvic lymphadenopathy. Abdominal wall and Osseous Structures: There is diffuse body wall edema. Lumbar spondylosis. No destructive osseous lesion. Procedure Note Interface, Radiant Results - 04/11/2018 5:[address] CHEST, ABDOMEN AND PELVIS Clinical Indication: Female, 48 years old. Left ventricular mass, diffuse abdominal pain Technique: Multiple contiguous axial images were obtained through the chest, abdomen and pelvis following the administration of IV contrast material. Portal venous phase of postcontrast imaging was obtained. Post processing coronal and sagittal reconstruction images were made from the axial images. IV contrast: Isovue-370 Bowel contrast: None Comparison: None CHEST FINDINGS: Lower Neck: Unremarkable Axilla, Mediastinum and Hemalatha: No axillary lymphadenopathy. Mildly prominent mediastinal and hilar nodes. Heart and Great Vessels: The heart is mildly enlarged. There is a mass within the left ventricle which measures 3.3 x 2.4 x 3.3 cm (series 7 image 46, series 11 image 60). The thoracic aorta is normal in caliber. Airway, Lungs and Pleura: Moderate bilateral pleural effusions, greater on the right, with subjacent atelectasis. There is prominence of the pulmonary veins. There is diffuse interstitial prominence, likely edema. There is a 0.6 cm nodular opacity in the right lower lobe (series 7 image 42). Chest Wall and Osseous Structures: Diffuse body wall edema. Mild thoracic spondylosis. No destructive osseous lesion. ABDOMEN AND PELVIS FINDINGS: Liver and Biliary system: The liver is normal in size. No discrete hepatic lesion. Prior cholecystectomy. No biliary ductal dilatation. Major portal veins are patent. Spleen: Unremarkable. Adrenal Glands and Kidneys: The adrenal glands are unremarkable. There are patchy hypodensities in the right kidney. Additional small patchy hypodensity in the left kidney. Probable well-defined cortical lesion measuring 1.0 cm in the right kidney (series 9 image 33), which is too small to characterize, though likely a cyst. No nephrolithiasis or hydronephrosis. Pancreas and Retroperitoneum: The pancreas is unremarkable. Prominent to mildly enlarged retroperitoneal lymph nodes. A primary care sales representative aortocaval caval node measures 1.1 x 0.9 cm (series 9 image 36). Aorta and Major Vessels: There is soft plaque in the infrarenal abdominal aorta and mild calcified atherosclerotic plaque in the common iliac arteries. The inferior vena cava is dilated. Bowel, Mesentery and Peritoneal space: The small and large bowel are normal in caliber. Normal appendix. No free air. Trace perihepatic ascites. Mild mesenteric congestion. Pelvis: The urinary bladder is partially opacified and decompressed. The uterus is enlarged with nodular soft tissue masses, reflective of fibroid uterus. Prominent left ovary measuring 4.7 x 3.7 cm. Prominent right ovary measuring 4.3 x 3.1 cm. No pelvic lymphadenopathy. Abdominal wall and Osseous Structures: There is diffuse body wall edema. Lumbar spondylosis. No destructive osseous lesion. IMPRESSION CHEST: 1. Left ventricular mass, which may reflect a myxoma, thrombus, or metastasis. Biopsy is recommended for further evaluation. 2. Mild cardiomegaly with pulmonary venous congestion and interstitial edema. 3. Moderate bilateral pleural effusions with subjacent atelectasis. 4. Small right lower lobe nodule, which is nonspecific, though may represent round scarring, noncalcified granuloma, or atelectasis. ABDOMEN AND PELVIS: 1. Ovoid masses in the uterus, most reflective of fibroids. Uterine malignancy is not entirely excluded. 2. Prominence of the bilateral ovaries, greater on the left. Correlation with pelvic ultrasound is recommended. 3. Wedge-shaped hypodensities in the bilateral kidneys, greater on the right, suspicious for bilateral renal infarcts. 4. No significant abdominopelvic lymphadenopathy. Mildly prominent retroperitoneal lymph nodes, likely reactive. 5. Trace ascites, mesenteric congestion, and diffuse body wall edema, compatible with anasarca. Approved by Aftab Mendoza M.D. on 04/11/2018 9:21 AM By my electronic signature, I attest that I have personally reviewed the images for this examination and formulated the interpretations and opinions expressed in this report Finalized by Chung Harrison M.D. on 04/11/2018 4:57 PM. Dictated by Aftab Mendoza M.D. on 04/11/2018 7:57 AM. * CT HEAD WO CONTRAST (04/11/2018 6:28 AM) Specimen Performing Laboratory [facility] RESULTS Impressions No acute intracranial hemorrhage or mass effect. Approved by Joseph Amaya M.D. on 04/11/2018 10:11 AM By my electronic signature, I attest that I have personally reviewed the images for this examination and formulated the interpretations and opinions expressed in this report Finalized by Asa Fu M.D. on 04/11/2018 11:32 AM. Dictated by Joseph Amaya M.D. on 04/11/2018 8:21 AM. Narrative EXAM: CT HEAD HISTORY: Neurologic deficit, pupils nonreactive TECHNIQUE: Multiple contiguous axial images were obtained of the brain without intravenous contrast. COMPARISON: None FINDINGS: The ventricles and subarachnoid spaces are normal in size and configuration. There is no midline shift or mass effect. The haque white matter interfaces are maintained. The basal cisterns are patent. There is no evidence of acute intracranial hemorrhage or extra-axial fluid collection. The mastoid air cells and visualized paranasal sinuses are well-aerated. Procedure Note Interface, Radiant Results - 04/11/2018 11:35 AM CDT EXAM: CT HEAD HISTORY: Neurologic deficit, pupils nonreactive TECHNIQUE: Multiple contiguous axial images were obtained of the brain without intravenous contrast. COMPARISON: None FINDINGS: The ventricles and subarachnoid spaces are normal in size and configuration. There is no midline shift or mass effect. The haque white matter interfaces are maintained. The basal cisterns are patent. There is no evidence of acute intracranial hemorrhage or extra-axial fluid collection. The mastoid air cells and visualized paranasal sinuses are well-aerated. IMPRESSION No acute intracranial hemorrhage or mass effect. Approved by Joseph Amaya M.D. on 04/11/2018 10:11 AM By my electronic signature, I attest that I have personally reviewed the images for this examination and formulated the interpretations and opinions expressed in this report Finalized by Asa Fu M.D. on 04/11/2018 11:32 AM. Dictated by Joseph Amaya M.D. on 04/11/2018 8:21 AM. * URINALYSIS, MICROSCOPIC (04/11/2018 3:50 AM) Component Value Ref Range WBCs,UA 0-2 0 - 2 /HPF RBCs,UA 0-2 0 - 3 /HPF MucousUA TRACE Specimen Performing Laboratory [facility] [address] [place] [address] * URINALYSIS DIPSTICK (04/11/2018 3:50 AM) Component Value Ref Range Color,UA YELLOW Turbidity,UA CLEAR CLEAR-CLEAR Specific [place]-Urine >1.050 (H) 1.003 - 1.035 pH,UA 6.0 5.0 - 8.0 Protein,UA 2+ (A) NEG-NEG Glucose,UA 3+ (A) NEG-NEG Ketones,UA NEG NEG-NEG Bilirubin,UA NEG NEG-NEG Blood,UA NEG NEG-NEG Urobilinogen,UA NORMAL NORM-NORMAL Nitrite,UA NEG NEG-NEG Leukocytes,UA NEG NEG-NEG Urine Ascorbic Acid, UA NEG NEG-NEG Specimen Performing Laboratory [facility] [address] [id number] * TEST-URINE (04/11/2018 3:50 AM) Component Value Ref Range Urine-HCG NEG Samples with Specific [place] <1.010 may result in a false negative test Specific [place] >1.030 Specimen Performing Laboratory [facility] [address] [address] * PHENCYCLIDINES-URINE RANDOM (04/11/2018 3:50 AM) Component Value Ref Range Phencyclidine (PCP) NEG NEG-NEG Comment: RESULTS WERE OBTAINED BY IMMUNOASSAY AND ARE PRESUMPTIVE ONLY. POSITIVE INDICATES THE PRESENCE OF SUBSTANCE WITH CHARACTERISTICS SIMILAR TO DRUG-DRUG CLASS OR METABOLITE IN CONC. EQUAL TO OR EXCEEDING VALUES LISTED. PHENCYCLIDINE (PCP)25 NG/ML Specimen Performing Laboratory [facility] [address] [id number] * OPIATES-URINE RANDOM (04/11/2018 3:50 AM) Component Value Ref Range Opiates-Urine NEG NEG-NEG Comment: RESULTS WERE OBTAINED BY IMMUNOASSAY AND ARE PRESUMPTIVE ONLY. POSITIVE INDICATES THE PRESENCE OF SUBSTANCE WITH CHARACTERISTICS SIMILAR TO DRUG-DRUG CLASS OR METABOLITE IN CONC. EQUAL TO OR EXCEEDING VALUES LISTED. [id number] NG/ML Specimen Performing Laboratory Urine [address] [address] * COCAINE-URINE RANDOM (04/11/2018 3:50 AM) Component Value Ref Range Cocaine-Urine NEG NEG-NEG Comment: RESULTS WERE OBTAINED BY IMMUNOASSAY AND ARE PRESUMPTIVE ONLY. POSITIVE INDICATES THE PRESENCE OF SUBSTANCE WITH CHARACTERISTICS SIMILAR TO DRUG-DRUG CLASS OR METABOLITE IN CONC. EQUAL TO OR EXCEEDING VALUES LISTED. COCAINE 300 NG/ML Specimen Performing Laboratory Urine [facility] [address] [place] [address] * CANNABINOIDS-URINE RANDOM (04/11/2018 3:50 AM) Component Value Ref Range THC NEG NEG-NEG Comment: RESULTS WERE OBTAINED BY IMMUNOASSAY AND ARE PRESUMPTIVE ONLY. POSITIVE INDICATES THE PRESENCE OF SUBSTANCE WITH CHARACTERISTICS SIMILAR TO DRUG-DRUG CLASS OR METABOLITE IN CONC. EQUAL TO OR EXCEEDING VALUES LISTED. [id number] NG/ML Specimen Performing Laboratory Urine [facility] [address] [place] [address] * BENZODIAZEPINES-URINE RANDOM (04/11/2018 3:50 AM) Component Value Ref Range Benzodiazepines POS (A) NEG-NEG Comment: RESULTS WERE OBTAINED BY IMMUNOASSAY AND ARE PRESUMPTIVE ONLY. POSITIVE INDICATES THE PRESENCE OF SUBSTANCE WITH CHARACTERISTICS SIMILAR TO DRUG-DRUG CLASS OR METABOLITE IN CONC. EQUAL TO OR EXCEEDING VALUES LISTED. BENZODIAZEPINES 200 NG/ML Specimen Performing Laboratory Urine [facility] [address] [place] [address] * BARBITURATES-URINE RANDOM (04/11/2018 3:50 AM) Component Value Ref Range Barbiturates,Urine NEG NEG-NEG Comment: RESULTS WERE OBTAINED BY IMMUNOASSAY AND ARE PRESUMPTIVE ONLY. POSITIVE INDICATES THE PRESENCE OF SUBSTANCE WITH CHARACTERISTICS SIMILAR TO DRUG-DRUG CLASS OR METABOLITE IN CONC. EQUAL TO OR EXCEEDING VALUES LISTED. [id number] NG/ML Specimen Performing Laboratory Urine [address] [address] * AMPHETAMINES-URINE RANDOM (04/11/2018 3:50 AM) Component Value Ref Range Amphetamines NEG NEG-NEG Comment: RESULTS WERE OBTAINED BY IMMUNOASSAY AND ARE PRESUMPTIVE ONLY. POSITIVE INDICATES THE PRESENCE OF SUBSTANCE WITH CHARACTERISTICS SIMILAR TO DRUG-DRUG CLASS OR METABOLITE IN CONC. EQUAL TO OR EXCEEDING VALUES LISTED. AMPHETAMINES 1000 NG/ML Specimen Performing Laboratory Urine [address] [address] * CULTURE-URINE W/SENSITIVITY (04/11/2018 3:50 AM) Component Value Ref Range Battery Name URINE CULTURE Specimen Description URINE Special Requests NONE Culture NO GROWTH Report Status FINAL 04/12/2018 Specimen Performing Laboratory Urine [address] [address] * HIV-1/2 ANTIGEN/ANTIBODY SCREEN (04/11/2018 1:55 AM) Component Value Ref Range HIV 1 and 2 AG AB Screen NEG NEG-NEG Specimen Performing Laboratory Blood [address] [address] * TSH WITH FREE T4 REFLEX (04/11/2018 1:55 AM) Component Value Ref Range TSH 4.590 0.35 - 5.00 MCU/ML Specimen Performing Laboratory Blood [facility] [address] [place] [address] * CULTURE-BLOOD W/SENSITIVITY (04/11/2018 1:55 AM) Only the most recent of 2 results within the time period is included. Component Value Ref Range Battery Name BLOOD CULTURE Specimen Description BLOOD RIGHT ANTECUBITAL Special Requests NONE Culture NO GROWTH 5 DAYS Report Status FINAL 04/17/2018 Specimen Performing Laboratory Blood [facility] [address] [place] [address] * FIBRINOGEN (04/11/2018 1:55 AM) Component Value Ref Range Fibrinogen 225 200 - 400 MG/DL Specimen Performing Laboratory Blood [facility] [address] [place] [address] * BNP (B-TYPE NATRIURETIC PEPTI) (04/11/2018 1:55 AM) Component Value Ref Range B Type Natriuretic 2,773.0 (H) 0 - 100 PG/ML Peptide Specimen Performing Laboratory Blood [facility] [address] [place] [address] * HAPTOGLOBIN (04/11/2018 1:55 AM) Component Value Ref Range Haptoglobin 120 16 - 200 MG/DL Specimen Performing Laboratory Blood [facility] [address] [place] [address] * IRON + BINDING CAPACITY + %SAT+ FERRITIN (04/11/2018 1:33 AM) Component Value Ref Range Iron 10 (L) 50 - 160 MCG/DL Iron Binding-TIBC 419 (H) 270 - 380 MCG/DL % Saturation 2 (L) 28 - 42 % Ferritin 5 (L) 10 - 200 NG/ML Specimen Performing Laboratory [facility] [address] [place] [address] * RETICULOCYTE COUNT (04/11/2018 1:33 AM) Component Value Ref Range Retic, Uncorrected 3.0 (H) 0.5 - 2.0 % Retic, Corrected 1.8 % Retic, Absolute 111.3 (H) 30 - 94 K/UL Specimen Performing Laboratory [facility] [address] [place] [address] * PHOSPHORUS (04/11/2018 1:33 AM) Component Value Ref Range Phosphorus 3.2 2.0 - 4.0 MG/DL Specimen Performing Laboratory [facility] [address] [place] [address] * LIPASE (04/11/2018 1:33 AM) Component Value Ref Range Lipase <3 (L) 11 - 82 U/L Specimen Performing Laboratory [facility] [address] [place] [address] * LDH-LACTATE DEHYDROGENASE (04/11/2018 1:33 AM) Component Value Ref Range Lactate Dehydrogenase 281 (H) 100 - 210 U/L Specimen Performing Laboratory [facility] [address] [place] [address] * HEMOGLOBIN A1C (04/11/2018 1:33 AM) Component Value Ref Range Hemoglobin A1C 10.5 (H) 4.0 - 6.0 % Comment: The ADA recommends that most patients with type 1 and type 2 diabetes maintain an A1c level <7%. Specimen Performing Laboratory [facility] [address] [place] [address] * FOLATE, SERUM (04/11/2018 1:33 AM) Component Value Ref Range Serum Folate 14.8Comment: NOTE NEW REFERENCE RANGES >3.9 NG/ML Specimen Performing Laboratory [facility] [address] [place] [address] * VITAMIN B12 (04/11/2018 1:33 AM) Component Value Ref Range Vitamin B12 643 180 - 914 PG/ML Specimen Performing Laboratory [facility] [address] [place] [address] * CREATINE KINASE-CPK (04/11/2018 1:33 AM) Component Value Ref Range Creatine Kinase 30 21 - 215 U/L Specimen Performing Laboratory [facility] [address] [place] [address] * LIPID PROFILE (04/11/2018 1:33 AM) Component Value Ref Range Cholesterol 101 <200 MG/DL Triglycerides 85 <150 MG/DL HDL 44 >40 MG/DL LDL 45 <100 MG/DL VLDL 17 MG/DL Non HDL Cholesterol 57 MG/DL Comment: Calculated non-HDL Cholesterol (non-HDL-C) indirectly measures LDL-C, Lp(a), IDL-C, and VLDL-C.It is a surrogate marker for Apoprotein B.Goal should be less than 130 mg/dL. Specimen Performing Laboratory [facility] [address] [place] [address] * LACTIC ACID (BG - RAPID LACTATE) (04/11/2018 1:20 AM) Component Value Ref Range Lactic Acid,BG 1.6 0.5 - 2.0 MMOL/L Specimen Performing Laboratory Blood [facility] [address] [place] [address] * CHEST SINGLE VIEW (04/11/2018 1:05 AM) Specimen Performing Laboratory [facility] RESULTS Impressions Improvement in findings of mild CHF/volume overload. Approved by Laina Robbins M.D. on 04/11/2018 10:11 AM By my electronic signature, I attest that I have personally reviewed the images for this examination and formulated the interpretations and opinions expressed in this report Finalized by Martir Zuñiga M.D. on 04/11/2018 10:19 AM. Dictated by Laina Robbins M.D. on 04/11/2018 9:22 AM. Narrative CHEST SINGLE VIEW Clinical Indication: Female, 48 years old. Left ventricular mass Comparison: Same day CT chest Findings: There is cardiomegaly with improvement in mild pulmonary venous congestion. There is improvement in small bilateral pleural effusions and mild bibasilar atelectasis. No pneumothorax. Procedure Note Interface, Radiant Results - 04/11/2018 10:22 AM CDT CHEST SINGLE VIEW Clinical Indication: Female, 48 years old. Left ventricular mass Comparison: Same day CT chest Findings: There is cardiomegaly with improvement in mild pulmonary venous congestion. There is improvement in small bilateral pleural effusions and mild bibasilar atelectasis. No pneumothorax. IMPRESSION Improvement in findings of mild CHF/volume overload. Approved by Laina Robbins M.D. on 04/11/2018 10:11 AM By my electronic signature, I attest that I have personally reviewed the images for this examination and formulated the interpretations and opinions expressed in this report Finalized by Martir Zuñiga M.D. on 04/11/2018 10:19 AM. Dictated by Laina Robbins M.D. on 04/11/2018 9:22 AM. * CT CHEST EXTERNAL IMAGING (04/10/2018 4:45 PM) Narrative This order has been auto finalized and does not contain a result. * GENERAL RAD CHEST EXTERNAL IMAGING (04/10/2018 3:45 PM) Narrative This order has been auto finalized and does not contain a result. from Last 3 Months
--- OUTSIDE RECORDS SUMMARY | 2018-05-08 21:19 | XMS REPORT | Encounter Summary ---
Author Author [facility] Organization [facility] Address Unknown Phone Unavailable Care Team Providers Care Rough Carpenter Name Role Phone Dave Lorenzana MD PCP Encounter Details Date Type Department Care Team Description 04/18/2018 Pharmacy Visit Med Assist Pharmacy [address] [place] [address] Social History Tobacco Use Types Packs/Day Years [...]
--- OUTSIDE RECORDS SUMMARY | 2018-05-08 21:22 | XMS REPORT | Encounter Summary ---
Author Author [facility] Organization [facility] Address Unknown Phone Unavailable Care Team Providers Care Campus Manager Name Role Phone No Pcp, Na PCP Unavailable Encounter Details Date Type Department Care Team Description 04/17/2018 Documentation Med Assist Pharmacy Claudia Contreras [id number] [address] Social History Tobacco Use Types Packs/Day Years Used Date Current Every Day Smoker Cigarettes 1 20 Smokeless Tobacco: Never Used Alcohol Use Drinks/Week oz/Week Comments No Sex Assigned at Date Recorded Not on file as of this encounter Functional Status Functional Status Response Date of Assessment Does the patient have a hearing impairment: No 04/11/2018 as of this encounter Progress Notes * Claudia Contreras - 04/17/2018 7:52 PM CDT An application has been submitted to [facility] for Lovenox. Claudia Contreras Medication Control Systems Developer [phone] in this encounter Plan of Treatment Not on fileas of this encounter Visit Diagnoses Not on filein this encounter
--- OUTSIDE RECORDS SUMMARY | 2018-05-08 21:22 | XMS REPORT | Encounter Summary ---
Author Author [facility] Organization [facility] Address Unknown Phone Unavailable Care Team Providers Care Bond Clerk Name Role Phone No Pcp, Na PCP Unavailable Yani Lorenzana MD PCP Encounter Details Date Type Department Care Team Description 04/10/2018 Hospital Medicine Telemetry Yani Tomlinson MD Mass of heart - Encounter [address] 04/18/2018 [place] [address] [address] [place] [address] [phone] Tiana Bello MD [address] [place] [address] [phone] Concetta Healy MD [address] [place] [address] [phone] Social History Tobacco Use Types Packs/Day Years Used Date Current Every Day Smoker Cigarettes 1 20 Smokeless Tobacco: Never Used Alcohol Use Drinks/Week oz/Week Comments No Sex Assigned at Date Recorded Not on file as of this encounter Last Filed Vital Signs Vital Sign Reading [...] Mass Index 24.14 04/18/2018 7:30 AM CDT in this encounter Functional Status Functional Status Response Date of Assessment Does the patient have a hearing impairment: No 04/11/2018 as of this encounter Discharge Summaries * Mattie Dela Cruz MD - 04/18/2018 11:50 AM CDT Formatting of this note may be different from the original. Physician Discharge Summary Name: Betina Baron Date Of : 1970 Age: 48 years Admit date: 04/10/2018 Discharge date: 04/18/2018 Notation: Patient was in the hospital for 9 days and I have seen the patient for 2 days only. And hence most of the information was obtained through review of records. Attending Physician: Mattie Dela Cruz MD Service: [place] [address] Physician Summary completed by: Mattie Dela Cruz MD Reason for hospitalization: 50 y.o. female 48 yo F hx of Tobacco Abuse, Uncontrolled DM2, Microcytic Anemia of unknown origin, Methamphetamine Abuse presented to [facility] on the evening of 04/10/18 as a transfer from [facility] in [place], [place] after CTA of the Chest showed a Left Ventricular Mass. Significant PMH: Past Medical History: Diagnosis Date DM (diabetes mellitus) (HCC) Polysubstance abuse Allergies: Pcn [penicillins] Admission Physical Exam notable for: BP: 120/73 (04/10 2225) Temp: 36.8 C (98.2 F) (04/10 2225) Pulse: 91 (04/10 2225) Respirations: 18 PER MINUTE (04/10 2225) SpO2: 96 % (04/10 2225) O2 Delivery: None (Room Air) (04/10 2225) Height: 180.3 cm (71") (04/10 2225) BP: (120)/(73) Temp: [36.8 C (98.2 F)] Pulse: [91] Respirations: [18 PER MINUTE] SpO2: [96 %] O2 Delivery: None (Room Air) Intensity Pain Scale 0-10 (Pain 1): 9 (04/10/18 2225) General: A&Ox4, Lying in bed and appears comfortable Heent: Despite shining light in eyes several times, pupils not reactive to light b/l, No JVD, Lack of Upper Teeth and Poor Dentition, Dry Mucus Membranes Chest: Mild Tachycardia, No audible murmurs Lungs: Decreased BS bilateral bases Abdomen: Moderate Tenderness in the RLQ and Epigastric Region, solid mass palpated in the periumbilical region, soft, no guarding Rectal: Decreased Rectal Tone, No bright red blood or melena on exam Back: No C-Spine, T-Spine or L-Spine tenderness, Diffuse scabbing on patient's back Extremities: Left BKA, Bilateral 1+ pitting edema of the lower extremities, able to pick both legs up off the ground Skin: Diffuse scabbing on patient's back and buttocks Neuro: Despite numerous light shinings in patient's eyes, pupils not reactive to light, EOMI with horizontal nystagmus, Able to raise eyebrows, blink and smile without any deficits, able to shrug bilateral shoulders, 4/5 bilateral UE strength, 3/5 bilateral LE strength Admission Lab/Radiology studies notable for: Admission labs:h/h-7.6/25.2, platelet counts-515, lymphocytes-20, MCV-67.5, absolute retic count-111.3, iron-10, ferritin-5, K-3.4, Na-135, glucose-359, albumin-3.3, magnesium-1.5, syj5r-45.5, LDH-281, ALP-122, UDS + for benzodiazepines. BNP-2,773 Radiology: CXR:04/11/18 IMPRESSION Improvement in findings of mild CHF/volume overload. CT head w/o contrast:04/11/18 IMPRESSION No acute intracranial hemorrhage or mass effect. CT chest and abdomen/pelvis:04/11/18 IMPRESSION CHEST: 1. Left ventricular mass, which [...] diffuse body wall edema, compatible with anasarca. US pelvis:04/11/18 IMPRESSION 1. Enlarged fibroid uterus, predominantly intramural, with a lesser submucosal component. 2. Limited evaluation of the endometrium without obvious mass or thickening. 3. Bilateral ovarian cysts. No evidence of solid adnexal mass. If more detailed evaluation of the cystic adnexal lesions is clinically indicated, contrast-enhanced MRI of the pelvis could be obtained. ECHO:04/11/18 Interpretation Summary 1. Moderately dilated LV with severely reduced [...] size. Ordering provider notified by text page. Cardiac cath:04/13/18 Interpretation Summary 8. Moderately dilated LV with severely reduced EF=15%. 9. Massive large thrombus filling up the majority of LV apex, with base of the thrombus is attached to apical wall but large portion of thrombus is highly mobile. LV thrombus has appearance of mushroom in contrast images. 10. Global hypokinesis of LV with akinetic mid to distal LV segments. 11. Mild RV dilation with mild to moderate RV dysfunction. 12. Mild to moderate TR. 13. CVP>15 mmHg with elevated pulmonary artery pressure PASP=53 mmHg. 14. Small pericardial effusion. No prior study available for comparison. High risk of cardio-embolization due to high mobility of the massive LV thrombus size. Ordering provider notified by text page. Brief Hospital Course: The patient was admitted and the following issues were addressed during this hospitalization: Betina Shaffer a 48 y.o. yo F hx of Tobacco Abuse, Uncontrolled DM2 , Microcytic Anemia of unknown origin, Methamphetamine Abuse presented to [facility] on the evening of 04/10/18 as a transfer from [facility] in [place], [place] after CTA of the Chest showed a Left Ventricular Mass. Large LV Thrombus - Large Filling Defect in the Left Ventricle 3.7x 2.7x 3.7cm visible on CTA Chest at [facility] - CT Chest with contrast 04/12: Left ventricular mass, which may reflect a myxoma , thrombus, or metastasis. - Echo 04/12 -moderately dilated LV with EF of 15%. Massive large thrombus filling up the majority of the LV apex with large portion of thrombus highly mobile. Mild to moderate TR. Global hypokinesis of LV with akinetic segments. CVP greater than 15. PASP equals 53 - Pt unable to tolerate MRI despite multiple attempts - was on Heparin drip until 04/17, discussed with from cardiology and from CTS both were ok with switchiing from heparin drip to lovenox as they did not know of any evidence of one being better than the other. Discussed the same with pt. -Started Coumadin 5mg 04/13, increased to 7.5 mg as still subtherapeutic on 04/17 - CTS was consulted. No surgical intervention at this time. Recommend continuing current management with anticoagulation - Cardiology consulted Acute Systolic CHF, Dilated Cardiomyopathy, Elevated Troponin -troponin 0.03-->1.29-->peaked at 2.33-->1.87 - Etiology nonischemic cardiomyopathy from drug use versus ischemic cardiomyopathy versus medical - Echo as above - No coronary calcifications on CT - 04/13 Cardiac cath without CAD - Elevated BNP 2773. Bilateral pleural effusions on imaging - Started on heart failure therapy with Coreg and lisinopril, dose of coreg decreased on 04/18 after discussing with given hypotension and bradycardia - Started on ASA and atorvastatin - Started on Aldactone - s/p Diuresis with IV Lasix 80 BID now on po lasix daily from 04/17 - I/o, daily weights during hospital course - Cardiology consulted Iron Deficiency Anemia - Likely related to severe vaginal bleeding possibly from large uterine fibroid - Had received 2 units of blood prior to transfer - s/p IV iron x 5 doses - Close monitoring of bleeding while on anticoagulation - Hgb stable in low 7s currently Large Uterine Fibroid - CT A/p showing Ovoid masses in the uterus, most reflective of fibroids. Uterine malignancy is not entirely excluded.Prominence of the bilateral ovaries, greater on the left. Wedge shaped hypodensities in bilateral kidneys - suspicious for renal infarcts - Also with fistulous tract near prior pfannenstial incision from C/S - Transvaginal ultrasound shows enlarged fibroid uterus, predominantly intramural. Bilateral ovarian cysts. Limited eval of endometrium - Hold on fistulogram at this time until acute issue is adressed. No abscess or fluid collection noted on CT - Floor Finisher Helper consulted - s/p pelvic exam, endometrial biopsy and pap smear 04/14. Patient refused IUD endometrial biopsy: Minute fragments of benign endometrial epithelium and endocervical glandular mucosa. No evidence of hyperplasia, dysplasia or malignancy identified. -started on Provera 10mg BID to help with bleeding per [facility] recs -pt needs [facility] follow-up in 1-2 months, pt needs to call [phone] to get an appointment scheduled Sores/Blisters on back/buttocks > Wound consulted Right lower lobe nodule - Noted on CT. Will need follow-up as OP with PCP DM2-uncontrolled - Non compliant with insulin at home - prescribed Lantus 30 QHS and Novolog 20 with meals - Metformin held during hospital course, now resumed upon discharge - Hemoglobin A1c 10 - Increased Lantus to 30 U QHS, added back mealtime now dose increased to 8U Aspart for better glycemic control. LDCF during hospital course - DM educator consulted Methamphetamine Abuse/Benzo Abuse; Tobacco Abuse - 30 pack year history of smoking and reportedly still smoking 1 ppd - UDS+ at OSH for Methamphetamines and Benzo's - Patient denies any drug use in the past 7 years, but did admit to using methamphetamine 7 years ago. Reports that "she only ever smoked it" and denies IV drug use - Counseled on abstinence Thrombocytosis: -likely reactive, likely from GLENNY, slightly better today Alkalosis: Mild, encouraged po hydration, likely contraction alkalosis from iv lasix given until 04/16, now on lasix po and aldactone, better today Atelectasis: -started IS Bradycardia: HR was 52 on 04/17, now normal Hypotension: BP was low at 97/49, pt denies dizziness, now decreased coreg upon discharge as above 8 beats runs of VTACH: Mag 1 gram iv ordered, k was 4, pt asymptomatic A total of 44 minutes were spent in discharge planning and care coordination, discussed pt with cardiology attendings today and [facility] resident, discussed pt with pharmacist and NCM about discharge planning, NCM checked for lovenox copay PCP Yani Patricio [place] Condition at Discharge: Stable Discharge Diagnoses: Hospital Problems Active Problems Mass of heart Acute systolic CHF (congestive heart failure) (HCC) LV (left ventricular) mural thrombus without TX Iron deficiency anemia Polysubstance abuse DM (diabetes mellitus) (HCC) Fibroids Hypotension Bradycardia Surgical Procedures: None Significant Diagnostic Studies and Procedures: noted in brief hospital course and as above Consults: Cardiology, CTS, Gynecology and diabetes RN consult and wound care team consult Patient Disposition: Home Patient instructions/medications: Protime INR (PT) Standing Status: Future Standing Exp. Date: 04/18/[address] Patricio at discharge that you have an INR due on 04/20/18. If you are not notified on the day of your INR draw with the result and your dosage instructions, please call your doctor's office to get this information. Activity as Tolerated It is important to keep increasing your activity level after you leave the hospital. Moving around can help prevent blood clots, lung infection (pneumonia ) and other problems. Gradually increasing the number of times you are up moving around will help you return to your normal activity level more quickly. Continue to increase the number of times you are up to the chair and walking daily to return to your normal activity level. Begin to work towards your normal activity level at discharge. Enoxaparin (Lovenox) Information ENOXAPARIN (LOVENOX) INFORMATION Medication Regimen: You will be discharged on Lovenox. Lovenox is a blood thinner medication. Lovenox can be used for days to months to prevent blood clots. The generic name of this medication is enoxaparin. It is very important to continue taking the medication as prescribed. Do not change your dose unless instructed by a healthcare professional. Administration Instructions: Lovenox is given by an injection under the skin (subcutaneously) on your abdomen. Give the injection at the same time every day. Do not double-up doses if you accidentally skip a dose. 1. Wash your hands with soap and water. Dry your hands. 2. Sit or lie in a comfortable position so you can easily see the area of your stomach where you will be injecting. A lounge chair, recliner, or bed (propped up with pillows) is ideal. 3. Select an area on the right or left side of your stomach, at least 2 inches from your belly button and out toward your sides. 4. Clean the area you have selected for your injection with one of the alcohol swabs provided. Allow the area to dry. 5. While the area is drying, carefully pull off the needle cap from the enoxaparin sodium syringe and discard cap. Do not press on the plunger prior to injection to expel the air bubble or medicine may be lost. To keep the needle sterile once you have removed the cap, do not set the needle down or touch the needle. 6. Hold the syringe in the hand you write with (hold it like a pencil), and, with your other hand, gently pinch the cleansed area of your stomach between your thumb and forefinger to make a fold in the skin. Be sure to hold the skin fold throughout the injection. 7. Vertically insert the full length of the needle (at a 90 angle) into the skin fold. 8. Press down on the plunger with your finger. This will deliver the medication into the fatty tissue of your stomach. Be sure to hold the skin fold throughout the injection. 9. Remove the needle by pulling it straight out. You can now let go of the skin fold. To avoid bruising, do not rub the injection site after completion of the injection. 10. Drop the used syringe -- needle first -- into an empty thick plastic container such as empty liquid laundry detergent bottle, empty bleach bottle or something similar. When the container is full, cap tightly, wrap in a trash bag and throw in your household trash. DO NOT return used syringes to the hospital. Adverse Reactions: The most common reaction seen with Lovenox is an increased risk of bleeding. Bruising may also be a common occurrence while taking this medication. Reasons to go to the emergency department: *Falling/hitting your head, with periods of headaches, vision changes, dizziness , loss of consciousness. *Heavy pressure on your chest, difficulty breathing, shortness of breath. This may be a sign of a clot in your lungs. *Blood-tinged vomiting, or what looks like coffee-grounds. This may be a sign of a stomach bleed. *Bright red urine. This may be a sign of a bleed in your bladder. *Extreme temperature changes, swelling, and pain in your thighs. This may be a sign of a clot in your legs. INSTRUCTIONS, ADDITIONAL Pt was advised to be compliant with all her meds, diet, INR check, PCP, cardiology and [facility] follow-up as recommended/scheduled Warfarin Information WARFARIN INFORMATION Notify Dr. Lorenzana at discharge that you have an INR due on 04/20/18. If you are not notified on the day of your INR draw with the result and your dosage instructions, please call your doctor's office to get this information. Medication regimen: You will be discharged on warfarin. Warfarin is a blood thinner medication. The dose you are currently taking may change based on blood levels/INR upon follow-up. It is very important to continue taking the medication as prescribed. Do not change your dose unless instructed by a healthcare professional. Warfarin requires monitoring of blood levels/INR on a regular basis. You should tell your healthcare professionals that you take warfarin. Follow-up: Follow-up on all scheduled appointments. Warfarin dosing may change based on your blood level/INR. If not done already, you will want to schedule an appointment after discharge to follow-up on your blood levels/INR. You may need to follow-up multiple times during the first several weeks after hospital discharge. Drug Interactions: Talk with your healthcare professional prior to starting or stopping any medications. This includes prescription, [id number], natural supplements , vitamins, and minerals. Many medications may increase or decrease your blood level/INR. Dietary Advice: Certain foods with vitamin K may alter the effects of warfarin. Green, leafy vegetables (examples: broccoli, spinach, kale) are some vegetables that may change blood levels/INR. It is important to keep a consistent diet. Avoid any major changes in diet when taking warfarin. Please notify a health professional before changing your eating habits. Adverse Reactions: The most common reaction seen with warfarin is an increased risk of bleeding. Bruising may also be a common occurrence while taking this medication. Reasons to go to the emergency department: *Falling/hitting your head, with periods of headaches, vision changes, dizziness , loss of consciousness *Heavy pressure on your chest, difficulty breathing, shortness of breath. This may be a sign of a clot in your lungs. *Blood-tinged vomiting, or what looks like coffee-grounds. This may be a sign of a stomach bleed. *Bright red urine. This may be a sign of a bleed in your bladder. *Extreme temperature changes, swelling, and pain in your thighs. This may be a sign of a clot in your legs. Report These Signs and Symptoms Please contact your doctor if you have any of the following symptoms: *Continue medicines as direct on your discharge medication list. Get an up to date list with every visit and take as instructed. Do NOT stop taking any medications without speaking with your doctor or nurse who knows you. *Remember to weigh yourself first thing in the morning after using the restroom and write it down. Take this record to your doctor appointment. *Chart symptoms such as fatigue, trouble breathing, or swelling. Call your doctor right away if these symptoms get worse. *Remember, do not eat more than 2000 milligrams of sodium a day. Watch out for packaged, processed, canned and restaurant foods. Call your doctor (your airport clerk, if you have one) if: -you gain more than 2 pounds in 24 hours. -you gain more than 5 pounds in 1 week. -any of your symptoms get worse Do NOT wait to let your doctor know about these changes. Questions About Your Stay For questions or concerns regarding your hospital stay: - DURING BUSINESS HOURS (8:00 AM - 4:30 PM): Call [phone] and asked to be transferred to your discharge attending physician. - AFTER BUSINESS HOURS (4:30 PM - 8:00 AM, on weekends, or holidays): Call [phone] and ask the pyridine recovery operator to page the on-call doctor for the discharge attending physician. Discharging attending physician: MATTIE DELA CRUZ [[id number]] Cardiac Diet Limiting unhealthy fats and cholesterol is the most important step you can take in reducing your risk for cardiovascular disease. Unhealthy fats include saturated and trans fats. Monitor your sodium and cholesterol intake. Restrict your sodium to 2g (grams) or 2000mg (milligrams) daily, and your cholesterol to 200mg daily. If you have questions regarding your diet at home, you may contact a dietitian at . Diabetic Diet You should eat between 1600 and 2000 calories per day. This is equal to 60g ( grams) of carbohydrates per meal, and 30g of carbohydrates for a bedtime snack. If you have questions about your diet after you go home, you can call a dietitian at [phone]. Return Appointment Provider ELIZABETH SOLOMON [[id number]] Location [facility] [place] Clinic Appointment date: 05/02/2018 Appointment time: 3:30 PM Return Appointment Pt needs to follow-up with her PCP in 1 week for routine post hospital follow- up and PCP to monitor INR closely Provider YANI LORENZANA [[id number]] Return Appointment Pt needs to follow-up with [facility] in 1-2 months, pt needs to call [phone] to get an appointment to be scheduled Opioid (Narcotic) Safety Information OPIOID (NARCOTIC) PAIN MEDICATION SAFETY We care about your comfort, and believe you need opioid medications at this time to treat your pain. An opioid is a strong pain medication. It is only available by prescription for moderate to severe pain. Usually these medications are used for only a short time to treat pain, but sometimes will be prescribed for longer. Talk with your doctor or nurse about how long they expect you to need this medication. When used the right way, opioids are safe and effective medications to treat your pain, even when used for a long time. Yet, when used in the wrong way, opioids can be dangerous for you or others. Opioids do not work for everyone. Most patients do not get full relief of their pain from opioid medication; full relief of your pain may not be possible. For your safety, we ask you to follow these instructions: *Only take your opioid medication as prescribed. If your pain is not controlled with the prescribed dose, or the medication is not lasting long enough, call your doctor. *Do not break or crush your opioid medication unless your doctor or pharmacist says you can. With certain medications, this can be dangerous, and may cause . *Never share your medications with others, even if they appear to have a good reason. Never take someone else's pain medication-this is dangerous, and illegal (a crime). Overdoses and deaths have occurred. *Keep your opioid medications safe, as you would with brambila, in a lock box or similar container. *Make sure your opioids are going to be secure, especially if you are around children or teens. *Talk with your doctor or pharmacist before you take other medications. *Avoid driving, operating machinery, or drinking alcohol while taking opioid pain medication. This may be unsafe. Pain medications can cause constipation. Constipation is bowel movements that are less often than normal. Stools often become very hard and difficult to pass. This may lead to stomach pain and bloating. It may also cause pain when trying to use the bathroom. Constipation may be treated with suppositories, laxatives or stool softeners. A diet high in fiber with plenty of fluids helps to maintain regular, soft bowel movements. Heart Failure Information You are at risk for readmission to the hospital because of fluid overload. There are steps you can take to lower your risk: *Continue your current heart medications. Changes made have been made during your hospital stay. *Remember to weigh yourself every morning, first thing after you urinate, and write down your weigh. Take this record to your doctor's appointments. *Chart your symptoms - fatigue, shortness of breath, swelling, etc. Immediately report any worsening. *Remember to consume no more than 2,000mg (milligrams) of sodium daily. Watch out for packaged, processed, canned, and restaurant foods especially. *If any of your symptoms worsen, or if you gain more than 2 pounds in 24 hours, or 5 pounds in a week, call your airport clerk immediately. EARLY REPORTING OF THESE CHANGES IS VERY IMPORTANT. Current Discharge Medication List START taking these medications Details aspirin EC 81 mg tablet Take 1 tablet by mouth daily. Take with food. Qty: 90 tablet, Refills: 3 PRESCRIPTION TYPE: OTC atorvastatin (LIPITOR) 80 mg tablet Take 1 tablet by mouth daily. Qty: 30 tablet, Refills: 0 PRESCRIPTION TYPE: Normal carvedilol (COREG) 3.125 mg tablet Take 1 tablet by mouth twice daily. Take with food. Qty: 60 tablet, Refills: 0 PRESCRIPTION TYPE: Normal enoxaparin (LOVENOX) 80 mg syrg Inject 0.8 mL under the skin twice daily. Qty: 11.2 mL, Refills: 0 PRESCRIPTION TYPE: Normal furosemide (LASIX) 40 mg tablet Take 1 tablet by mouth daily. Qty: 30 tablet, Refills: 0 PRESCRIPTION TYPE: Normal lisinopril (PRINIVIL, ZESTRIL) 2.5 mg tablet Take 1 tablet by mouth daily. Qty: 30 tablet, Refills: 0 PRESCRIPTION TYPE: Normal medroxyprogesterone (PROVERA) 10 mg tablet Take 1 tablet by mouth twice daily. Further scripts to be given by PCP/KENNEL MANAGER DOG TRACK Qty: 60 tablet, Refills: 0 PRESCRIPTION TYPE: Normal nystatin (NYSTOP) 100,000 unit/g topical powder Apply to pannus twice daily Qty: 15 g, Refills: 0 PRESCRIPTION TYPE: Normal oxyCODONE (ROXICODONE, OXY-IR) 5 mg tablet Take 1-2 tablets by mouth every 12 hours as needed For pain Qty: 15 tablet, Refills: 0 PRESCRIPTION TYPE: Print spironolactone (ALDACTONE) 25 mg tablet Take 1 tablet by mouth twice daily. Take with food. Qty: 60 tablet, Refills: 0 PRESCRIPTION TYPE: Normal vitamins, multi w/minerals 9 mg iron-400 mcg tab Take 1 tablet by mouth daily. PRESCRIPTION TYPE: OTC warfarin (COUMADIN) 7.5 mg tablet Take 1 tablet by mouth at bedtime daily. Qty: 30 tablet, Refills: 0 PRESCRIPTION TYPE: Normal CONTINUE these medications which have been CHANGED or REFILLED Details insulin aspart U-100 (NOVOLOG FLEXPEN) 100 unit/mL injection PEN Inject 8 Units under the skin three times daily with meals. Qty: 45 mL, Refills: 3 PRESCRIPTION TYPE: No Print CONTINUE these medications which have NOT CHANGED Details insulin detemir(+) (LEVEMIR FLEXTOUCH U-100 INSULN) 100 unit/mL (3 mL) injection pen Inject 30 Units under the skin at bedtime daily. PRESCRIPTION TYPE: Historical Med metFORMIN (GLUCOPHAGE) 500 mg tablet Take 500 mg by mouth twice daily with meals. PRESCRIPTION TYPE: Historical Med The following medications were removed from your list. This list includes medications discontinued this stay and those removed from your prior med list in our system HYDROcodone/acetaminophen (NORCO) 7.5/325 mg tablet Scheduled appointments: May 02, 2018 2:30 PM CDT Nurse Visit with [facility] HF NURSE [facility] ([facility]) [address] [facility] [address] [facility] [address] May 02, 2018 3:00 PM CDT Clinical Support with [facility] HF PHARM COUNSELOR [facility] ([facility]) [address] [facility] [address] [facility] [address] May 02, 2018 3:30 PM CDT Hospital Follow Up with Elizabeth Solomon APRN [facility] ([facility]) [address] [place] [id number] [facility] [id number] Pending items needing follow up: 1. PCP to follow-up on INR on 04/20/18 and adjust coumadin dose accordingly 2. Pt needs KENNEL MANAGER DOG TRACK follow-up in 1-2 months, pt needs to call [phone] to get an appointment scheduled 3. Right lower lobe nodule-Noted on CT. Will need follow-up as OP with PCP Signed: Mattie Dela Cruz MD 04/18/2018 cc: Primary Care Physician: Yani Lorenzana Referring physicians: Self, Referral Additional provider(s): Ms.Jill [facility] Vivien Frias KENNEL MANAGER DOG TRACK in this encounter Medications at Time of Discharge Medication Sig. Disp. Refills Start Date End Date aspirin EC 81 mg tablet Take 1 tablet by mouth 90 tablet 3 04/19/2018 daily. Take with food. atorvastatin (LIPITOR) 80 Take 1 tablet by mouth 30 tablet 0 2017 mg tablet daily. carvedilol (COREG) 3.125 Take 1 tablet by mouth 60 tablet 0 2017 mg tablet twice daily. Take with food. enoxaparin (LOVENOX) 80 Inject 0.8 mL under the 11.2 mL 0 04/18/2018 mg syrg skin twice daily. furosemide (LASIX) 40 mg Take 1 tablet by mouth 30 tablet 0 2017 tablet daily. insulin aspart U-100 Inject 8 Units under the 45 mL 3 04/18/2018 (NOVOLOG FLEXPEN) 100 skin three times daily unit/mL injection PEN with meals. insulin detemir(+) Inject 30 Units under the (LEVEMIR FLEXTOUCH U-100 skin at bedtime daily. INSULN) 100 unit/mL (3 mL) injection pen lisinopril (PRINIVIL, Take 1 tablet by mouth 30 tablet 0 04/19/2018 ZESTRIL) 2.5 mg tablet daily. medroxyprogesterone Take 1 tablet by mouth 60 tablet 0 04/18/2018 (PROVERA) 10 mg tablet twice daily. Further scripts to be given by PCP/KENNEL MANAGER DOG TRACK metFORMIN (GLUCOPHAGE) Take 500 mg by mouth 500 mg tablet twice daily with meals. nystatin (NYSTOP) 100,000 Apply to pannus twice 15 g 0 04/18/2018 unit/g topical powder daily oxyCODONE (ROXICODONE, Take 1-2 tablets by mouth 15 tablet 0 2017 OXY-IR) 5 mg tablet every 12 hours as needed For pain spironolactone Take 1 tablet by mouth 60 tablet 0 04/18/2018 (ALDACTONE) 25 mg tablet twice daily. Take with food. vitamins, multi Take 1 tablet by mouth 04/19/2018 w/minerals 9 mg iron-400 daily. mcg tab warfarin (COUMADIN) 7.5 Take 1 tablet by mouth at 30 tablet 0 2017 mg tablet bedtime daily. as of this encounter Progress Notes * Selena Fairchild RN - 04/18/2018 2:44 PM CDT Betina Baron discharged on 04/18/2018. . Discharge instructions reviewed with patient. Valuables returned: Personal Items / Valuables: Assistive Devices, Clothing, Electronics Assistive Devices Type: Wheelchair Electronic Devices: Cell Phone. Home medications: n/a Functional assessment at discharge complete: Yes . Patient was read and provided with discharge instructions. Lovenox teaching done and visual picture step by step handout provided. Heart failure medications and warfarin education reviewed. All questions and concerns addressed. * Concetta Veliz PHARMD - 04/18/2018 12:26 PM CDT Pharmacy Warfarin Teaching Betina Baron was provided with both verbal and written drug information about warfarin and enoxaparin. Discussion with the patient included: the medication regimen, dosing, monitoring, possible adverse effects, food/drug interactions to be aware of and OTC/herbal medication use. Emphasis was placed on the importance of medication compliance. The patient was also encouraged to contact the pharmacist with any further questions. Concetta Veliz PHARMD 04/18/2018 * Mattie Dela Cruz MD - 04/18/2018 8:48 AM CDT Formatting of this note may be different from the original. General Progress Note Name: Betina Baron Today's Date: 04/18/2018 Admission Date: 04/10/2018 LOS: 7 days Assessment/Plan: Active Problems: Mass of heart Acute systolic CHF (congestive heart failure) (HCC) LV (left ventricular) mural thrombus without TX Iron deficiency anemia Polysubstance abuse DM (diabetes mellitus) (HCC) Fibroids Betina Baron is a 48 y.o. female 48 yo F hx of Tobacco Abuse, Uncontrolled DM2, Microcytic Anemia of unknown origin, Methamphetamine Abuse presented to [facility] on the evening of 04/10/18 as a transfer from [facility] in [place], [place] after CTA of the Chest showed a Left Ventricular Mass. Large LV Thrombus - Large Filling Defect in the Left Ventricle 3.7x 2.7x 3.7cm visible on CTA Chest at [facility] - CT Chest with contrast 04/12: Left ventricular mass, which may reflect a myxoma , thrombus, or metastasis. - Echo 04/12 -moderately dilated LV with EF of 15%. Massive large thrombus filling up the majority of the LV apex with large portion of thrombus highly mobile. Mild to moderate TR. Global hypokinesis of LV with akinetic segments. CVP greater than 15. PASP equals 53 - Pt unable to tolerate MRI despite multiple attempts - was on Heparin drip until 04/17, discussed with from cardiology and from CTS both were ok with switchiing from heparin drip to lovenox as they did not know of any evidence of one being better than the other. Discussed the same with pt. -Started Coumadin 5mg 04/13, increased to 7.5 mg as still subtherapeutic on 04/17 - CTS was consulted. No surgical intervention at this time. Recommend continuing current management with anticoagulation - Cardiology consulted Acute Systolic CHF, Dilated Cardiomyopathy, Elevated Troponin -troponin 0.03-->1.29-->peaked at 2.33-->1.87 - Etiology nonischemic cardiomyopathy from drug use versus ischemic cardiomyopathy versus medical - Echo as above - No coronary calcifications on CT - 04/13 Cardiac cath without CAD - Elevated BNP 2773. Bilateral pleural effusions on imaging - Started on heart failure therapy with Coreg and lisinopril, dose of coreg decreased on 5/22 after discussing with given hypotension and bradycardia - Started on ASA and atorvastatin - Started on Aldactone - s/p Diuresis with IV Lasix 80 BID now on po lasix daily from 04/17 - I/o, daily weights during hospital course - Cardiology consulted Iron Deficiency Anemia - Likely related to severe vaginal bleeding possibly from large uterine fibroid - Had received 2 units of blood prior to transfer - s/p IV iron x 5 doses - Close monitoring of bleeding while on anticoagulation - Hgb stable in low 7s currently Large Uterine Fibroid - CT A/p showing Ovoid masses in the uterus, most reflective of fibroids. Uterine malignancy is not entirely excluded.Prominence of the bilateral ovaries, greater on the left. Wedge shaped hypodensities in bilateral kidneys - suspicious for renal infarcts - Also with fistulous tract near prior pfannenstial incision from C/S - Transvaginal ultrasound shows enlarged fibroid uterus, predominantly intramural. Bilateral ovarian cysts. Limited eval of endometrium - Hold on fistulogram at this time until acute issue is adressed. No abscess or fluid collection noted on CT - Floor Finisher Helper consulted - s/p pelvic exam, endometrial biopsy and pap smear 04/14. Patient refused IUD endometrial biopsy: Minute fragments of benign endometrial epithelium and endocervical glandular mucosa. No evidence of hyperplasia, dysplasia or malignancy identified. -started on Provera 10mg BID to help with bleeding per KENNEL MANAGER DOG TRACK recs -pt needs KENNEL MANAGER DOG TRACK follow-up in 1-2 months, pt needs to call [phone] to get an appointment scheduled Sores/Blisters on back/buttocks > Wound consulted Right lower lobe nodule - Noted on CT. Will need follow-up as OP with PCP DM2-uncontrolled - Non compliant with insulin at home - prescribed Lantus 30 QHS and Novolog 20 with meals - Metformin held during hospital course, now resumed upon discharge - Hemoglobin A1c 10 - Increased Lantus to 30 U QHS, added back mealtime now dose increased to 8U Aspart for better glycemic control. LDCF during hospital course - DM educator consulted Methamphetamine Abuse/Benzo Abuse; Tobacco Abuse - 30 pack year history of smoking and reportedly still smoking 1 ppd - UDS+ at OSH for Methamphetamines and Benzo's - Patient denies any drug use in the past 7 years, but did admit to using methamphetamine 7 years ago. Reports that "she only ever smoked it" and denies IV drug use - Counseled on abstinence Thrombocytosis: -likely reactive, likely from GLENNY, slightly better today Alkalosis: Mild, encouraged po hydration, likely contraction alkalosis from iv lasix given until 04/16, now on lasix po and aldactone, better today Atelectasis: -started IS Bradycardia: HR was 52 on 04/17, now normal Hypotension: BP was low at 97/49, pt denies dizziness, now decreased coreg upon discharge as above 8 beats runs of VTACH: Mag 1 gram iv ordered, k was 4, pt asymptomatic A total of 44 minutes were spent in discharge planning and care coordination, discussed pt with cardiology attendings today and KENNEL MANAGER DOG TRACK resident, discussed pt with pharmacist and NCM about discharge planning, NCM checked for lovenox copay PCP Yani Patricoi,Ms Mattie Dela Cruz Department of Internal Medicine Med Private [facility], pager [phone] Subjective Betina Baron is a 48 y.o. female. Patient seen and examined No acute events overnight Her LE swelling has resolved On ROS, she denies any chest pain/shortness of breath/abdominal. Pt denies cough or diarrhea or dysuria. Reports constipation better now. Today with mild improvement in vaginal bleeding. She feels ready for discharge home today. Medications Scheduled Meds: aspirin EC tablet 81 mg 81 mg Oral QDAY atorvastatin (LIPITOR) tablet 80 mg 80 mg Oral QDAY carvedilol (COREG) tablet 6.25 mg 6.25 mg Oral BID enoxaparin (LOVENOX) syringe 80 mg 1 mg/kg Subcutaneous BID furosemide (LASIX) tablet 40 mg 40 mg Oral QDAY insulin aspart U-100 (NOVOLOG FLEXPEN) injection PEN 0-7 Units 0-7 Units Subcutaneous 5 X Day insulin aspart U-100 (NOVOLOG FLEXPEN) injection PEN 7 Units 7 Units Subcutaneous TID w/ meals insulin glargine (LANTUS SOLOSTAR, BASAGLAR) injection PEN 24 Units 24 Units Subcutaneous QHS lisinopril (PRINIVIL, ZESTRIL) tablet 2.5 mg 2.5 mg Oral QDAY nystatin (NYSTOP) topical powder Topical BID senna/docusate (SENOKOT-S) tablet 2 tablet 2 tablet Oral BID spironolactone (ALDACTONE) tablet 25 mg 25 mg Oral BID(9-17) vitamin A & D topical ointment Topical QDAY vitamins, multi w/minerals tablet 1 tablet 1 tablet Oral QDAY warfarin (COUMADIN) tablet 7.5 mg 7.5 mg Oral QHS And warfarin, pharmacy to manage 1 each Service Per Pharmacy Continuous Infusions: PRN and Respiratory Meds:acetaminophen Q4H PRN, ondansetron Q8H PRN, oxyCODONE Q6H PRN, polyethylene glycol 3350 QDAY PRN Objective: Vital Signs: Last Filed Vital Signs: 24 Hour Range BP: 97/49 (04/18 404) Temp: 36.7 C (98.1 F) (04/18 404) Pulse: 78 (04/18 404) Respirations: 16 PER MINUTE (04/18 404) SpO2: 96 % (04/18 404) O2 Delivery: None (Room Air) (04/18 404) BP: (97-116)/(48-64) Temp: [36.5 C (97.7 F)-37.2 C (98.9 F)] Pulse: [52-86] Respirations: [16 PER MINUTE-18 PER MINUTE] SpO2: [96 %-98 %] O2 Delivery: None (Room Air) Intensity Pain Scale 0-10 (Pain 1): 9 (04/17/18 2030) Vitals: 04/17/18 0500 04/18/18 0549 04/18/18 0730 Weight: 79.3 kg (174 lb 13.2 oz) 79.1 kg (174 lb 6.1 oz) 78.5 kg (173 lb 1 oz) Intake/Output Summary: (Last 24 hours) Intake/Output Summary (Last 24 hours) at 04/18/18 0848 Last data filed at 04/18/18 0642 Gross per 24 hour Intake 680 ml Output 2450 ml Net -1770 ml Stool Occurrence: 0 Physical Exam Gen - Alert, NAD, cooperative Chest - Decreased BS at bases bilaterally CV - RRR, no murmurs Abd - Soft, NT, ND, +BS Ext - 1+ edema of RLE to mid tibia-now resolved, warm, well-perfused. S/p L BKA Skin - Excoriations on back and extremities PRODUCT DESIGN MANAGER: non focal grossly Lab Review Pertinent labs reviewed Point of Care Testing (Last 24 hours) Glucose: (!) 253 (04/18/18 0511) POC Glucose (Download): (!) 263 (04/18/18 7439) Radiology and other Diagnostics Review: Pertinent radiology reviewed. none from today Mattie Dela Cruz MD Pager [phone] * Akilah Ponce RN - 04/18/2018 7:30 AM CDT Formatting of this note may be different from the original. Heart Failure Nursing Progress Note Admission Date: 04/10/2018 LOS: 7 days Admission Weight: 88.1 kg (194 lb 3.6 oz) Most recent weights (inpatient): Vitals: 04/17/18 0500 04/18/18 0549 04/18/18 0730 Weight: 79.3 kg (174 lb 13.2 oz) 79.1 kg (174 lb 6.1 oz) 78.5 kg (173 lb 1 oz) Weight change from previous day: - 0.6 kg Fluid restriction ordered: 1.5 FR/day Intake/Output Summary: (Last 24 hours) Intake/Output Summary (Last 24 hours) at 04/18/18 0731 Last data filed at 04/18/18 0642 Gross per 24 hour Intake 880 ml Output 3050 ml Net -2170 ml Is patient incontinent: No Anticipated discharge date: 04/18 Discharge goals: no bleeding Daily Assessment of Patient Stated Goals: Short Term Goal Identified by patient (Short Term=during hospitalization): Get better * Caitlyn Krueger MD - 04/18/2018 7:25 AM CDT Formatting of this note may be different from the original. Progress Note Subjective: Patient reports that she started her period today, but that her bleeding is pretty light - she is changing her pad every 4-6 hours. She states that she would strongly prefer to take a medication rather than having an IUD or another procedure. Objective: Vitals: 04/17/18 1845 04/17/18 1937 04/18/18 0404 04/18/18 0549 BP: 116/48 112/58 97/49 Pulse: 84 86 78 Temp: 37.2 C (98.9 F) 36.7 C (98.1 F) SpO2: 97% 96% Weight: 79.1 kg (174 lb 6.1 oz) Height: Gen: NAD Chest: RRR, normal work of breathing Abdomen: Soft, non-distended, nttp, abdominal wound covered with dressing Ext: 2+ pulses, left BKA Assessment: Patient is a 48 y/o female admitted with acute heart failure secondary to LV thrombus, consult for fibroid uterus -TVUS with 20cm fibroid uterus -EMB benign with no evidence of hyperplasia -Pap in process Plan: Patient strongly desires medical management, however does not like the idea of an intrauterine device -EMB reassuring - no indication of malignancy -Will f/u pap when results are available -Would recommend Provera 10mg BID to help with bleeding -Will email for follow-up appt with [facility] Costume Rental Clerk, patient may also call to schedule or with any questions - [phone] Signed, Caitlyn Krueger MD PGY-1, Obstetrics and Gynecology Discussed with Dr. Prado Associated attestation - Vivien Prado MD - 04/18/2018 10:00 AM CDT Attending Attestation I was personally present for the rodriguez portions of the E/M visit, discussed case with resident and concur with resident documentation of history, physical exam, assessment, and treatment plan unless otherwise noted. Vivien Prado MD * Akilah Ponce, RN - 04/18/2018 4:04 AM CDT Patient had 8 beats runs of VTACH at 0350. Asymptomatic. Dr. Rincon notified. No orders. Will continue to monitor. * Shala Lin, NELLY - 04/17/2018 7:48 PM CDT Shift: Day Mentation: A&Ox4 Cardiac: SR with BBB on telemetry, 2+ pulses to BLE. VSS. Respiratory: RA GI/: voids, last BM 04/15 Nutrition: cardiac ADA diet with 1.5L fluid restriction, tolerating well. Activity: x1 assist d/t BKA without prosthesis Pain: c/o cramping uterine pain this morning, passed two clots (approx 1 cm in diameter) this morning. Family: none present Hygiene: shower today Follow up: Discontinued heparin ip today and lovenox started. Floor Finisher Helper consented pt for uterine artery embolization pending clearance by cardiology and primary team. * Shala Lin RN - 04/17/2018 7:46 PM CDT Formatting of this note may be different from the original. Heart Failure Nursing Progress Note Admission Date: 04/10/2018 LOS: 6 days Admission Weight: 88.1 kg (194 lb 3.6 oz) Most recent weights (inpatient): Vitals: 04/15/18 0624 04/16/18 0600 04/17/18 0500 Weight: 84.3 kg (185 lb 13.6 oz) 81.5 kg (179 lb 10.8 oz) 79.3 kg (174 lb 13.2 oz) Weight change from previous day: - 2.2 kg Fluid restriction ordered: 1500 ml Intake/Output Summary: (Last 24 hours) Intake/Output Summary (Last 24 hours) at 04/17/18 1946 Last data filed at 04/17/18 1940 Gross per 24 hour Intake 530 ml Output 2800 ml Net -2270 ml Is patient incontinent No Anticipated discharge date: 04/19/18 Discharge goals: Anticoagulation stable for home, treat abnormal uterine bleeding. * Concetta Veliz, JYOTI - 04/17/2018 12:42 PM CDT Formatting of this note may be different from the original. Pharmacy Warfarin Note Subjective: Pharmacy consulted to assist with management of warfarin therapy. Objective: Betina Baron is a 48 y.o. female receiving warfarin for LV thrombus . Current Warfarin Orders Medication Dose Route Frequency warfarin (COUMADIN) tablet 7.5 mg 7.5 mg Oral QHS And warfarin, pharmacy to manage 1 each Service Per Pharmacy Bridge therapy: Heparin . INR Date/Time Value Ref Range Status 04/17/2018 0623 1.2 0.8 - 1.2 Final 04/16/2018 0501 1.3 (H) 0.8 - 1.2 Final 04/15/2018 0300 1.1 0.8 - 1.2 Final Assessment: Patient's goal INR is 2-3 for LV thrombus . INR: INR (no units) Date/Time Value 04/17/2018 0623 1.2 Plan: Patient has received 4 doses of warfarin with an INR of 1.2 this morning. Will increase to warfarin 7.5mg daily. Next INR: Tomorrow Pharmacy will continue to monitor, follow and adjust therapy as needed. If a patient requires an invasive procedure that necessitates warfarin being held, anticoagulation reversal, or if a provider other than Pharmacy discontinues/places an order for warfarin, the pharmacy to manage warfarin order will be discontinued per the policy and warfarin therapy will no longer be managed by Pharmacy Concetta Veliz, JYOTI 04/17/2018 * Mattie Dela Cruz MD - 04/17/2018 9:20 AM CDT Formatting of this note may be different from the original. General Progress Note Name: Betina Baron Today's Date: 04/17/2018 Admission Date: 04/10/2018 LOS: 6 days Assessment/Plan: Active Problems: Mass of heart Acute systolic CHF (congestive heart failure) (HCC) LV (left ventricular) mural thrombus without TX Iron deficiency anemia Polysubstance abuse DM (diabetes mellitus) (HCC) Fibroids Betina Baron is a 48 y.o. female 48 yo F hx of Tobacco Abuse, Uncontrolled DM2, Microcytic Anemia of unknown origin, Methamphetamine Abuse presented to [facility] on the evening of 04/10/18 as a transfer from [facility] in [place], [place] after CTA of the Chest showed a Left Ventricular Mass. Large LV Thrombus - Large Filling Defect in the Left Ventricle 3.7x 2.7x 3.7cm visible on CTA Chest at [facility] - CT Chest with contrast 04/12: Left ventricular mass, which may reflect a myxoma , thrombus, or metastasis. - Echo 04/12 -moderately dilated LV with EF of 15%. Massive large thrombus filling up the majority of the LV apex with large portion of thrombus highly mobile. Mild to moderate TR. Global hypokinesis of LV with akinetic segments. CVP greater than 15. PASP equals 53 - Pt unable to tolerate MRI despite multiple attempts - was on Heparin drip until 04/17, discussed with from cardiology and from CTS both were ok with switchiing from heparin drip to lovenox as they did not know of any evidence of one being better than the other. Discussed the same with pt. -Started Coumadin 5mg 04/13, increased to 7.5 mg as still subtherapeutic on 04/17 - CTS was consulted. No surgical intervention at this time. Recommend continuing current management with anticoagulation - Cardiology consulted Acute Systolic CHF, Dilated Cardiomyopathy, Elevated Troponin -troponin 0.03-->1.29-->peaked at 2.33-->1.87 - Etiology nonischemic cardiomyopathy from drug use versus ischemic cardiomyopathy versus medical - Echo as above - No coronary calcifications on CT - 04/13 Cardiac cath without CAD - Elevated BNP 2773. Bilateral pleural effusions on imaging - Started on heart failure therapy with Coreg and lisinopril - Started on ASA and atorvastatin - Started on Aldactone - s/p Diuresis with IV Lasix 80 BID now on po lasix daily from 04/17 - I/o, daily weights - Cardiology consulted Iron Deficiency Anemia - Likely related to severe vaginal bleeding possibly from large uterine fibroid - Had received 2 units of blood prior to transfer - s/p IV iron x 5 doses - Close monitoring of bleeding while on anticoagulation - Hgb stable in low 7s currently Large Uterine Fibroid - CT A/p showing Ovoid masses in the uterus, most reflective of fibroids. Uterine malignancy is not entirely excluded.Prominence of the bilateral ovaries, greater on the left. Wedge shaped hypodensities in bilateral kidneys - suspicious for renal infarcts - Also with fistulous tract near prior pfannenstial incision from C/S - Transvaginal ultrasound shows enlarged fibroid uterus, predominantly intramural. Bilateral ovarian cysts. Limited eval of endometrium - Hold on fistulogram at this time until acute issue is adressed. No abscess or fluid collection noted on CT - Floor Finisher Helper consulted - s/p pelvic exam, endometrial biopsy and pap smear 04/14. Patient refused IUD Sores/Blisters on back/buttocks > Wound consulted Right lower lobe nodule - Noted on CT. Will need follow-up as OP with PCP DM2-uncontrolled - Non compliant with insulin at home - prescribed Lantus 30 QHS and Novolog 20 with meals - Metformin held - Hemoglobin A1c 10 - Increased Lantus to 24U QHS, added back mealtime now dose increased to 7U Aspart for better glycemic control. LDCF - Adjust as needed - DM educator consulted Methamphetamine Abuse/Benzo Abuse; Tobacco Abuse - 30 pack year history of smoking and reportedly still smoking 1 ppd - UDS+ at OSH for Methamphetamines and Benzo's - Patient denies any drug use in the past 7 years, but did admit to using methamphetamine 7 years ago. Reports that "she only ever smoked it" and denies IV drug use - Counseled on abstinence Thrombocytosis: -likely reactive, likely from GLENNY, slightly worse today Alkalosis: Mild, encouraged po hydration, likely contraction alkalosis from iv lasix given until 04/16, monitor Atelectasis: -started IS FEN - Cardiac, Diabetic diet, 1.5L FR - No IVF - K & Mag replaced Proph - heparin gtt now switched to lovenox, coumadin Code status: Full code Dispo - Continue inpatient care - PT/OT consulted - Pt is uninsured A total of 40 minutes were spent in pt care today, discussed pt with cardiology and CTS attendings, discussed pt with pharmacist and NCM about discharge planning, NCM to check for lovenox colin Dela Cruz Department of Internal [facility], pager [phone] Subjective Betina Baron is a 48 y.o. female. Patient seen and examined No acute events overnight Her LE swelling has resolved On ROS, she denies any chest pain/shortness of breath/abdominal. Pt denies cough or diarrhea or dysuria. Reports constipation, encouraged pt to use miralax which is already available. Today with vaginal bleeding, per RN report having her period with clots today Medications Scheduled Meds: aspirin EC tablet 81 mg 81 mg Oral QDAY atorvastatin (LIPITOR) tablet 80 mg 80 mg Oral QDAY carvedilol (COREG) tablet 6.25 mg 6.25 mg Oral BID furosemide (LASIX) tablet 40 mg 40 mg Oral QDAY insulin aspart U-100 (NOVOLOG FLEXPEN) injection PEN 0-7 Units 0-7 Units Subcutaneous 5 X Day insulin aspart U-100 (NOVOLOG FLEXPEN) injection PEN 5 Units 5 Units Subcutaneous TID w/ meals insulin glargine (LANTUS SOLOSTAR, BASAGLAR) injection PEN 18 Units 18 Units Subcutaneous QHS lisinopril (PRINIVIL, ZESTRIL) tablet 2.5 mg 2.5 mg Oral QDAY nystatin (NYSTOP) topical powder Topical BID senna/docusate (SENOKOT-S) tablet 2 tablet 2 tablet Oral BID spironolactone (ALDACTONE) tablet 25 mg 25 mg Oral BID(9-17) vitamin A & D topical ointment Topical QDAY vitamins, multi w/minerals tablet 1 tablet 1 tablet Oral QDAY warfarin (COUMADIN) tablet 5 mg 5 mg Oral QHS And warfarin, pharmacy to manage 1 each Service Per Pharmacy Continuous Infusions: heparin (porcine) 20,000 Units in dextrose 5% (D5W) 250 mL IV infusion (dbl conc) 2,022 Units/hr (04/17/18 0734) PRN and Respiratory Meds:acetaminophen Q4H PRN, ondansetron Q8H PRN, oxyCODONE Q6H PRN, polyethylene glycol 3350 QDAY PRN Objective: Vital Signs: Last Filed Vital Signs: 24 Hour Range BP: 119/62 (04/17 831) Temp: 36.6 C (97.9 F) (04/17 831) Pulse: 79 (04/17 831) Respirations: 18 PER MINUTE (04/17 831) SpO2: 98 % (04/17 831) O2 Delivery: None (Room Air) (04/17 831) BP: (108-119)/(56-62) Temp: [36.5 C (97.7 F)-36.8 C (98.2 F)] Pulse: [78-89] Respirations: [16 PER MINUTE-18 PER MINUTE] SpO2: [93 %-98 %] O2 Delivery: None (Room Air) Intensity Pain Scale 0-10 (Pain 1): 8 (04/17/18 0825) Vitals: 04/15/18 0624 04/16/18 0600 04/17/18 0500 Weight: 84.3 kg (185 lb 13.6 oz) 81.5 kg (179 lb 10.8 oz) 79.3 kg (174 lb 13.2 oz) Intake/Output Summary: (Last 24 hours) Intake/Output Summary (Last 24 hours) at 04/17/18 0920 Last data filed at 04/17/18 0315 Gross per 24 hour Intake 1078 ml Output 4850 ml Net -3772 ml Stool Occurrence: 0 Physical Exam Gen - Alert, NAD, cooperative Chest - Decreased BS at bases bilaterally CV - RRR, no murmurs Abd - Soft, NT, ND, +BS, small wound/lesion in LLQ Ext - 1+ edema of RLE to mid tibia-now resolved, warm, well-perfused. 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 done since admission Mattie Dela Cruz MD Pager [phone] * Ofe Kulkarni RN - 04/16/2018 7:06 PM CDT Formatting of this note may be different from the original. Heart Failure Nursing Progress Note Admission Date: 04/10/2018 LOS: 5 days Admission Weight: 88.1 kg (194 lb 3.6 oz) Most recent weights (inpatient): Vitals: 04/14/18 0535 04/15/18 0624 04/16/18 0600 Weight: 90.7 kg (199 lb 15.3 oz) 84.3 kg (185 lb 13.6 oz) 81.5 kg (179 lb 10.8 oz) Weight change from previous day:-2.8 kg Fluid restriction ordered: 1.5 L Intake/Output Summary: (Last 24 hours) Intake/Output Summary (Last 24 hours) at 04/16/18 1907 Last data filed at 04/16/18 1905 Gross per 24 hour Intake 1318 ml Output 7000 ml Net -5682 ml Is patient incontinent No Anticipated discharge date: 04/18/2018 * Dominguez Quintero MD - 04/16/2018 11:10 AM CDT Formatting of this note may be different from the original. Cardiology Daily Progress Note 04/16/2018 Betina Baron Admission Date: 04/10/2018 Assessment/Plan: Active Problems: Mass of heart Acute systolic CHF (congestive heart failure) (HCC) LV (left ventricular) mural thrombus without TX Iron deficiency anemia Polysubstance abuse DM (diabetes mellitus) (HCC) Fibroids 1. Severe NICM 2. Massive LV thrombus with high embolic potential P - net -ve 13 l so far, switch to po lasix - increase bb -continue IV heparin, being transitioned to warfarin. - discussed the importance of complying with her cardiac meds __ Subjective: Breathing much improved. Able to lay flat. No dizziness Allergies: Pcn [penicillins] Medications: Scheduled Meds: aspirin EC tablet 81 mg 81 mg Oral QDAY atorvastatin (LIPITOR) tablet 80 mg 80 mg Oral QDAY carvedilol (COREG) tablet 3.125 mg 3.125 mg Oral BID [START ON 04/17/2018] furosemide (LASIX) tablet 40 mg 40 mg Oral QDAY insulin aspart U-100 (NOVOLOG FLEXPEN) injection PEN 0-7 Units 0-7 Units Subcutaneous 5 X Day insulin aspart U-100 (NOVOLOG FLEXPEN) injection PEN 5 Units 5 Units Subcutaneous TID w/ meals insulin glargine (LANTUS SOLOSTAR, BASAGLAR) injection PEN 18 Units 18 Units Subcutaneous QHS lisinopril (PRINIVIL, ZESTRIL) tablet 2.5 mg 2.5 mg Oral QDAY nystatin (NYSTOP) topical powder Topical BID senna/docusate (SENOKOT-S) tablet 2 tablet 2 tablet Oral BID spironolactone (ALDACTONE) tablet 25 mg 25 mg Oral BID(9-17) vitamin A & D topical ointment Topical QDAY vitamins, multi w/minerals tablet 1 tablet 1 tablet Oral QDAY warfarin (COUMADIN) tablet 5 mg 5 mg Oral QHS And warfarin, pharmacy to manage 1 each Service Per Pharmacy Continuous Infusions: heparin (porcine) 20,000 Units in dextrose 5% (D5W) 250 mL IV infusion (dbl conc) 2,122 Units/hr (04/16/18 0821) PRN and Respiratory Meds:acetaminophen Q4H PRN, ondansetron Q8H PRN, oxyCODONE Q6H PRN, polyethylene glycol 3350 QDAY PRN Physical Exam: Vital Signs: Last Filed In 24 Hours Vital Signs: 24 Hour Range BP: 100/62 (04/16 743) Temp: 36.4 C (97.6 F) (04/16 743) Pulse: 84 (04/16 743) Respirations: 18 PER MINUTE (04/16 743) SpO2: 95 % (04/16 743) O2 Delivery: None (Room Air) (04/16 743) BP: (97-117)/(60-87) Temp: [36.4 C (97.6 F)-36.9 C (98.4 F)] Pulse: [83-88] Respirations: [16 PER MINUTE-18 PER MINUTE] SpO2: [93 %-100 %] O2 Delivery: None (Room Air) Intensity Pain Scale 0-10 (Pain 1): 7 (04/15/182104) Intake/Output Summary: (Last 24 hours) Intake/Output Summary (Last 24 hours) at 04/16/18 1110 Last data filed at 04/16/18 0955 Gross per 24 hour Intake 1074 ml Output 6650 ml Net -5576 ml Physical Exam General Appearance: appears older than stated age, no acute distress Neck Veins: neck veins are not distended Chest Inspection: chest is normal in appearance Respiratory Effort: breathing comfortably Auscultation/Percussion: lungs clear Cardiac Rhythm: regular rhythm and normal rate Cardiac Auscultation: S1, S2 normal, no rub, no gallop Murmurs: no murmur Carotid Arteries: no bruits Radial Arteries: normal symmetric radial pulses Lower Extremity Edema: 1+ RLE, L bka Abdominal Exam: soft, non-tender, non-distended, normal bowel sounds Neurologic Exam: neurological assessment grossly intact Other: moves all extremities Laboratory Review: Hematology: Lab Results Component Value Date HGB 8.3 04/16/2018 HCT 27.1 04/16/2018 PLTCT 451 04/16/2018 WBC 8.5 04/16/2018 NEUT 65 04/16/2018 ANC 5.50 04/16/2018 LYMPH 18 04/13/2018 ALC 1.80 04/16/2018 SUPRIYA 8 04/16/2018 AMC 0.70 04/16/2018 ABC 0.10 04/16/2018 MCV 70.8 04/16/2018 MCHC 30.5 04/16/2018 MPV 9.0 04/16/2018 RDW 38.3 04/16/2018 , Coagulation: Lab Results Component Value Date PTT 127.9 04/16/2018 INR 1.3 04/16/2018 and General Chemistry: Lab Results Component Value Date NA 135 04/16/2018 K 3.6 04/16/2018 CL 94 04/16/2018 GAP 8 04/16/2018 BUN 15 04/16/2018 CR 0.54 04/16/2018 GLU 214 04/16/2018 CA 8.9 04/16/2018 ALBUMIN 2.9 04/16/2018 MG 1.4 04/16/2018 TOTBILI 0.5 04/16/2018 Echo-EF of 15% with a massive thrombus filling the LV apex with mobile components. The IVC is dilated with moderately elevated PA pressures. Telemetry: nsr, wide qrs, occasional pvcs, triplet Dominguez Quintero MD * Tay Mahan MD - 04/16/2018 8:20 AM CDT Formatting of this note may be different from the original. General Progress Note Name: Betina Baron Today's Date: 04/16/2018 Admission Date: 04/10/2018 LOS: 5 days Assessment/Plan: Active Problems: Mass of heart Acute systolic CHF (congestive heart failure) (HCC) LV (left ventricular) mural thrombus without TX Iron deficiency anemia Polysubstance abuse DM (diabetes mellitus) (HCC) Fibroids Betina Baron is a 48 y.o. female 48 yo F hx of Tobacco Abuse, Uncontrolled DM2, Microcytic Anemia of unknown origin, Methamphetamine Abuse presented to [facility] on the evening of 04/10/18 as a transfer from [facility] in [place], [place] after CTA of the Chest showed a Left Ventricular Mass. Large LV Thrombus - Large Filling Defect in the Left Ventricle 3.7x 2.7x 3.7cm visible on CTA Chest at [facility] - CT Chest with contrast 04/12: Left ventricular mass, which may reflect a myxoma , thrombus, or metastasis. - Echo 04/12 -moderately dilated LV with EF of 15%. Massive large thrombus filling up the majority of the LV apex with large portion of thrombus highly mobile. Global hypokinesis of LV with akinetic segments. CVP greater than 15. PASP equals 53 - Pt unable to tolerate MRI despite multiple attempts - Continue Heparin drip. Started Coumadin 5mg 04/13 - CTS was consulted. No surgical intervention at this time. Recommend continuing current management with anticoagulation - Cardiology consulted Acute Systolic CHF, Dilated Cardiomyopathy, Elevated Troponin - Etiology nonischemic cardiomyopathy from drug use versus ischemic cardiomyopathy versus medical - Echo as above - No coronary calcifications on CT - 04/13 Cardiac cath without CAD - Troponin peaked at 2.33 - Elevated BNP 2773. Bilateral pleural effusions on imaging - Started on heart failure therapy with Coreg and lisinopril - Started on ASA and atorvastatin - Started on Aldactone - Diuresis with IV Lasix 80 BID - I/o, daily weights - Cardiology consulted Iron Deficiency Anemia - Likely related to severe vaginal bleeding possibly from large uterine fibroid - Had received 2 units of blood prior to transfer - Continue IV iron x 5 doses - Close monitoring of bleeding while on anticoagulation - Hgb stable in low 7s currently Large Uterine Fibroid - CT A/p showing Ovoid masses in the uterus, most reflective of fibroids. Uterine malignancy is not entirely excluded.Prominence of the bilateral ovaries, greater on the left. Wedge shaped hypodensities in bilateral kidneys - suspicious for renal infarcts - Also with fistulous tract near prior pfannenstial incision from C/S - Transvaginal ultrasound shows enlarged fibroid uterus, predominantly intramural. Bilateral ovarian cysts. Limited eval of endometrium - Hold on fistulogram at this time until acute issue is adressed. No abscess or fluid collection noted on CT - Floor Finisher Helper consulted - s/p pelvic exam, endometrial biopsy and pap smear 04/14. Patient refused IUD Sores/Blisters on back/buttocks > Wound consulted Right lower lobe nodule - Noted on CT. Will need follow-up DM2 - Non compliant with insulin at home - prescribed Lantus 30 QHS and Novolog 20 with meals - Metformin held - Hemoglobin A1c 10 - Increase Lantus to 14U QHS, add back mealtime 5U Aspart. LDCF - Adjust as needed - DM educator consulted Methamphetamine Abuse/Benzo Abuse; Tobacco Abuse - 30 pack year history of smoking and reportedly still smoking 1 ppd - UDS+ at OSH for Methamphetamines and Benzo's - Patient denies any drug use in the past 7 years, but did admit to using methamphetamine 7 years ago. Reports that "she only ever smoked it" and denies IV drug use - Counseled on abstinence FEN - Cardiac, Diabetic diet, 1.5L FR - No IVF - K & Mag replaced Proph - heparin gtt Code status: Full code Dispo - Continue inpatient care - PT/OT consulted - Pt is uninsured Tay Mahan MD Department of Internal Medicine [facility], pager [phone] Subjective Betina Baron is a 48 y.o. female. Patient seen and examined No acute events overnight Her LE swelling has resolved On ROS, she denies any chest pain/shortness of breath/abdominal. pain Medications Scheduled Meds: aspirin EC tablet 81 mg 81 mg Oral QDAY atorvastatin (LIPITOR) tablet 80 mg 80 mg Oral QDAY carvedilol (COREG) tablet 3.125 mg 3.125 mg Oral BID furosemide (LASIX) injection 80 mg 80 mg Intravenous BID(08-14) insulin aspart U-100 (NOVOLOG FLEXPEN) injection PEN 0-7 Units 0-7 Units Subcutaneous 5 X Day insulin aspart U-100 (NOVOLOG FLEXPEN) injection PEN 5 Units 5 Units Subcutaneous TID w/ meals insulin glargine (LANTUS SOLOSTAR, BASAGLAR) injection PEN 18 Units 18 Units Subcutaneous QHS lisinopril (PRINIVIL, ZESTRIL) tablet 2.5 mg 2.5 mg Oral QDAY nystatin (NYSTOP) topical powder Topical BID senna/docusate (SENOKOT-S) tablet 2 tablet 2 tablet Oral BID spironolactone (ALDACTONE) tablet 25 mg 25 mg Oral BID(08-14) vitamin A & D topical ointment Topical QDAY vitamins, multi w/minerals tablet 1 tablet 1 tablet Oral QDAY warfarin (COUMADIN) tablet 5 mg 5 mg Oral QHS And warfarin, pharmacy to manage 1 each Service Per Pharmacy Continuous Infusions: heparin (porcine) 20,000 Units in dextrose 5% (D5W) 250 mL IV infusion (dbl conc) Stopped (04/16/18 0653) PRN and Respiratory Meds:acetaminophen Q4H PRN, ondansetron Q8H PRN, oxyCODONE Q6H PRN, polyethylene glycol 3350 QDAY PRN Objective: Vital Signs: Last Filed Vital Signs: 24 Hour Range BP: 100/62 (04/16 743) Temp: 36.4 C (97.6 F) (04/16 743) Pulse: 84 (04/16 743) Respirations: 18 PER MINUTE (04/16 743) SpO2: 95 % (04/16 743) O2 Delivery: None (Room Air) (04/16 743) BP: (97-117)/(60-87) Temp: [36.4 C (97.6 F)-36.9 C (98.4 F)] Pulse: [83-88] Respirations: [16 PER MINUTE-18 PER MINUTE] SpO2: [93 %-100 %] O2 Delivery: None (Room Air) Intensity Pain Scale 0-10 (Pain 1): 7 (04/15/18 2105) Vitals: 04/14/18 0535 04/15/18 0624 04/16/18 0600 Weight: 90.7 kg (199 lb 15.3 oz) 84.3 kg (185 lb 13.6 oz) 81.5 kg (179 lb 10.8 oz) Intake/Output Summary: (Last 24 hours) Intake/Output Summary (Last 24 hours) at 04/16/18 0820 Last data filed at 04/16/18 0800 Gross per 24 hour Intake 1324 ml Output 7050 ml Net -5726 ml Stool Occurrence: 0 Physical Exam Gen - Alert, NAD, cooperative Chest - Decreased BS at bases bilaterally CV - RRR, no m/r/g Abd - Soft, NT, ND, +BS, small wound/lesion in LLQ Ext - 1+ edema of RLE to mid tibia, warm, well-perfused. S/p L BKA Skin - Excoriations on back and extremities Lab Review Pertinent labs reviewed Point of Care Testing (Last 24 hours) Glucose: (!) 214 (04/16/18 0501) POC Glucose (Download): (!) 173 (04/16/18 6570) Radiology and other Diagnostics Review: Pertinent radiology reviewed. Tay Mahan MD Pager [phone] * Nichelle Bloom RN - 04/16/2018 6:57 AM CDT Formatting of this note may be different from the original. Heart Failure Nursing Progress Note Admission Date: 04/10/2018 LOS: 5 days Admission Weight: 88.1 kg (194 lb 3.6 oz) Most recent weights (inpatient): Vitals: 04/14/18 0535 04/15/18 0624 04/16/18 0600 Weight: 90.7 kg (199 lb 15.3 oz) 84.3 kg (185 lb 13.6 oz) 81.5 kg (179 lb 10.8 oz) Weight change from previous day: - 6 lbs Fluid restriction ordered: 1.5 L Intake/Output Summary: (Last 24 hours) Intake/Output Summary (Last 24 hours) at 04/16/18 0657 Last data filed at 04/16/18 0320 Gross per 24 hour Intake 1324 ml Output 6500 ml Net -5176 ml Is patient incontinent No Anticipated discharge date: ongoing * Ofe Kulkarni RN - 04/15/2018 4:55 PM CDT Formatting of this note may be different from the original. Heart Failure Nursing Progress Note Admission Date: 04/10/2018 LOS: 4 days Admission Weight: 88.1 kg (194 lb 3.6 oz) Most recent weights (inpatient): Vitals: 04/13/18 0853 04/14/18 0535 04/15/18 0624 Weight: 89.6 kg (197 lb 8.5 oz) 90.7 kg (199 lb 15.3 oz) 84.3 kg (185 lb 13.6 oz ) Weight change from previous day:- 6.4 kg Fluid restriction ordered: 1.5 L Intake/Output Summary: (Last 24 hours) Intake/Output Summary (Last 24 hours) at 04/15/18 1655 Last data filed at 04/15/18 1655 Gross per 24 hour Intake 1806 ml Output 8300 ml Net -6494 ml Is patient incontinent No Anticipated discharge date: ongoing * Dominguez Quintero MD - 04/15/2018 10:22 AM CDT Formatting of this note may be different from the original. Cardiology Daily Progress Note 04/15/2018 Betina Baron Admission Date: 04/10/2018 Assessment/Plan: Active Problems: Mass of heart Acute systolic CHF (congestive heart failure) (HCC) LV (left ventricular) mural thrombus without TX Iron deficiency anemia Polysubstance abuse DM (diabetes mellitus) (HCC) Fibroids 1. Severe NICM 2. Massive LV thrombus with high embolic potential P -continue IV heparin, being transitioned to warfarin. Continue IV Lasix. She was -3.5 L over the last 24 hours, net -9.3 L. We will gradually optimize her heart failure medications if the blood pressures remained stable with diuresis. Labs continue to be stable. __ Subjective: Breathing better. Unable to tolerate the cardiac MRI. Allergies: Pcn [penicillins] Medications: Scheduled Meds: aspirin EC tablet 81 mg 81 mg Oral QDAY atorvastatin (LIPITOR) tablet 80 mg 80 mg Oral QDAY carvedilol (COREG) tablet 3.125 mg 3.125 mg Oral BID furosemide (LASIX) injection 80 mg 80 mg Intravenous BID(08-14) insulin aspart U-100 (NOVOLOG FLEXPEN) injection PEN 0-7 Units 0-7 Units Subcutaneous 5 X Day insulin aspart U-100 (NOVOLOG FLEXPEN) injection PEN 5 Units 5 Units Subcutaneous TID w/ meals insulin glargine (LANTUS SOLOSTAR, BASAGLAR) injection PEN 14 Units 14 Units Subcutaneous QHS lisinopril (PRINIVIL, ZESTRIL) tablet 2.5 mg 2.5 mg Oral QDAY nystatin (NYSTOP) topical powder Topical BID senna/docusate (SENOKOT-S) tablet 2 tablet 2 tablet Oral BID spironolactone (ALDACTONE) tablet 25 mg 25 mg Oral BID(08-14) vitamin A & D topical ointment Topical QDAY vitamins, multi w/minerals tablet 1 tablet 1 tablet Oral QDAY warfarin (COUMADIN) tablet 5 mg 5 mg Oral QHS And warfarin, pharmacy to manage 1 each Service Per Pharmacy Continuous Infusions: heparin (porcine) 20,000 Units in dextrose 5% (D5W) 250 mL IV infusion (dbl conc) 2,222 Units/hr (04/15/18 0828) PRN and Respiratory Meds:acetaminophen Q4H PRN, ondansetron Q8H PRN, oxyCODONE Q6H PRN, polyethylene glycol 3350 QDAY PRN Physical Exam: Vital Signs: Last Filed In 24 Hours Vital Signs: 24 Hour Range BP: 122/74 (04/15 756) Temp: 36.4 C (97.5 F) (04/15 756) Pulse: 85 (04/15 756) Respirations: 16 PER MINUTE (04/15 756) SpO2: 97 % (04/15 756) O2 Delivery: None (Room Air) (04/15 756) BP: (109-125)/(60-74) Temp: [36.3 C (97.3 F)-36.8 C (98.2 F)] Pulse: [85-98] Respirations: [16 PER MINUTE-18 PER MINUTE] SpO2: [94 %-100 %] O2 Delivery: None (Room Air) Intake/Output Summary: (Last 24 hours) Intake/Output Summary (Last 24 hours) at 04/15/18 1023 Last data filed at 04/15/18 0903 Gross per 24 hour Intake 1182 ml Output 7700 ml Net -6518 ml Physical Exam General Appearance: appears older than stated age, no acute distress Neck Veins: neck veins are not distended Chest Inspection: chest is normal in appearance Respiratory Effort: breathing comfortably Auscultation/Percussion: lungs clear Cardiac Rhythm: regular rhythm and normal rate Cardiac Auscultation: S1, S2 normal, no rub, no gallop Murmurs: no murmur Carotid Arteries: no bruits Radial Arteries: normal symmetric radial pulses Lower Extremity Edema: 1+ RLE, L bka Abdominal Exam: soft, non-tender, non-distended, normal bowel sounds Neurologic Exam: neurological assessment grossly intact Other: moves all extremities Laboratory Review: Hematology: Lab Results Component Value Date HGB 8.1 04/15/2018 HCT 27.8 04/15/2018 PLTCT 596 04/15/2018 WBC 12.6 04/15/2018 NEUT 75 04/15/2018 ANC 9.50 04/15/2018 LYMPH 18 04/13/2018 ALC 1.80 04/15/2018 SUPRIYA 7 04/15/2018 AMC 0.80 04/15/2018 ABC 0.10 04/15/2018 MCV 70.7 04/15/2018 MCHC 29.2 04/15/2018 MPV 8.9 04/15/2018 RDW 37.7 04/15/2018 , Coagulation: Lab Results Component Value Date PTT 92.9 04/15/2018 INR 1.1 04/15/2018 and General Chemistry: Lab Results Component Value Date NA 133 04/15/2018 K 3.7 04/15/2018 CL 94 04/15/2018 GAP 5 04/15/2018 BUN 17 04/15/2018 CR 0.61 04/15/2018 GLU 237 04/15/2018 CA 9.3 04/15/2018 ALBUMIN 3.2 04/15/2018 MG 1.6 04/15/2018 TOTBILI 0.6 04/15/2018 Echo-EF of 15% with a massive thrombus filling the LV apex with mobile components. The IVC is dilated with moderately elevated PA pressures. Telemetry: nsr, wide qrs Dominguez Quintero MD * Tay Mahan MD - 04/15/2018 9:38 AM CDT Formatting of this note may be different from the original. General Progress Note Name: Betina Baron Today's Date: 04/15/2018 Admission Date: 04/10/2018 LOS: 4 days Assessment/Plan: Active Problems: Mass of heart Acute systolic CHF (congestive heart failure) (HCC) LV (left ventricular) mural thrombus without TX Iron deficiency anemia Polysubstance abuse DM (diabetes mellitus) (HCC) Fibroids Betina Baron is a 48 y.o. female 48 yo F hx of Tobacco Abuse, Uncontrolled DM2, Microcytic Anemia of unknown origin, Methamphetamine Abuse presented to [facility] on the evening of 04/10/18 as a transfer from [facility] in [place], [place] after CTA of the Chest showed a Left Ventricular Mass. Large LV Thrombus - Large Filling Defect in the Left Ventricle 3.7x 2.7x 3.7cm visible on CTA Chest at [facility] - CT Chest with contrast 04/12: Left ventricular mass, which may reflect a myxoma , thrombus, or metastasis. - Echo 04/12 -moderately dilated LV with EF of 15%. Massive large thrombus filling up the majority of the LV apex with large portion of thrombus highly mobile. Global hypokinesis of LV with akinetic segments. CVP greater than 15. PASP equals 53 - Pt unable to tolerate MRI despite multiple attempts - Continue Heparin drip. Started Coumadin 5mg 04/13 - CTS was consulted. No surgical intervention at this time. Recommend continuing current management with anticoagulation - Cardiology consulted Acute Systolic CHF, Dilated Cardiomyopathy, Elevated Troponin - Etiology nonischemic cardiomyopathy from drug use versus ischemic cardiomyopathy versus medical - Echo as above - No coronary calcifications on CT - 04/13 Cardiac cath without CAD - Troponin peaked at 2.33 - Elevated BNP 2773. Bilateral pleural effusions on imaging - Started on heart failure therapy with Coreg and lisinopril - Started on ASA and atorvastatin - Started on Aldactone - Diuresis with IV Lasix 60 BID - I/o, daily weights - Cardiology consulted Iron Deficiency Anemia - Likely related to severe vaginal bleeding possibly from large uterine fibroid - Had received 2 units of blood prior to transfer - Continue IV iron x 5 doses - Close monitoring of bleeding while on anticoagulation - Hgb stable in low 7s currently Large Uterine Fibroid - CT A/p showing Ovoid masses in the uterus, most reflective of fibroids. Uterine malignancy is not entirely excluded.Prominence of the bilateral ovaries, greater on the left. Wedge shaped hypodensities in bilateral kidneys - suspicious for renal infarcts - Also with fistulous tract near prior pfannenstial incision from C/S - Transvaginal ultrasound shows enlarged fibroid uterus, predominantly intramural. Bilateral ovarian cysts. Limited eval of endometrium - Hold on fistulogram at this time until acute issue is adressed. No abscess or fluid collection noted on CT - Floor Finisher Helper consulted - s/p pelvic exam, endometrial biopsy and pap smear 04/14. Patient refused IUD Sores/Blisters on back/buttocks > Wound consulted Right lower lobe nodule - Noted on CT. Will need follow-up DM2 - Non compliant with insulin at home - prescribed Lantus 30 QHS and Novolog 20 with meals - Metformin held - Hemoglobin A1c 10 - Increase Lantus to 14U QHS, add back mealtime 5U Aspart. LDCF - Adjust as needed - DM educator consulted Methamphetamine Abuse/Benzo Abuse; Tobacco Abuse - 30 pack year history of smoking and reportedly still smoking 1 ppd - UDS+ at OSH for Methamphetamines and Benzo's - Patient denies any drug use in the past 7 years, but did admit to using methamphetamine 7 years ago. Reports that "she only ever smoked it" and denies IV drug use - Counseled on abstinence FEN - Cardiac, Diabetic diet, 1.5L FR - No IVF - K & Mag replaced Proph - heparin gtt Code status: Full code Dispo - Continue inpatient care - PT/OT consulted - Pt is uninsured Tay Mahan MD Department of Internal Medicine Med [facility], pager [phone] Subjective Betina Baron is a 48 y.o. female. Doing ok this morning. Breathing is at baseline Denies any fever/chills ROS No fevers No n/v, abd pain No cough or dyspnea Medications Scheduled Meds: aspirin EC tablet 81 mg 81 mg Oral QDAY atorvastatin (LIPITOR) tablet 80 mg 80 mg Oral QDAY carvedilol (COREG) tablet 3.125 mg 3.125 mg Oral BID furosemide (LASIX) injection 80 mg 80 mg Intravenous BID(08-14) insulin aspart U-100 (NOVOLOG FLEXPEN) injection PEN 0-7 Units 0-7 Units Subcutaneous 5 X Day insulin aspart U-100 (NOVOLOG FLEXPEN) injection PEN 5 Units 5 Units Subcutaneous TID w/ meals insulin glargine (LANTUS SOLOSTAR, BASAGLAR) injection PEN 14 Units 14 Units Subcutaneous QHS lisinopril (PRINIVIL, ZESTRIL) tablet 2.5 mg 2.5 mg Oral QDAY nystatin (NYSTOP) topical powder Topical BID senna/docusate (SENOKOT-S) tablet 2 tablet 2 tablet Oral BID spironolactone (ALDACTONE) tablet 25 mg 25 mg Oral BID(08-14) vitamin A & D topical ointment Topical QDAY vitamins, multi w/minerals tablet 1 tablet 1 tablet Oral QDAY warfarin (COUMADIN) tablet 5 mg 5 mg Oral QHS And warfarin, pharmacy to manage 1 each Service Per Pharmacy Continuous Infusions: heparin (porcine) 20,000 Units in dextrose 5% (D5W) 250 mL IV infusion (dbl conc) 2,222 Units/hr (04/15/18 0828) PRN and Respiratory Meds:acetaminophen Q4H PRN, ondansetron Q8H PRN, oxyCODONE Q6H PRN, polyethylene glycol 3350 QDAY PRN Objective: Vital Signs: Last Filed Vital Signs: 24 Hour Range BP: 122/74 (04/15 756) Temp: 36.4 C (97.5 F) (04/15 756) Pulse: 85 (04/15 756) Respirations: 16 PER MINUTE (04/15 756) SpO2: 97 % (04/15 756) O2 Delivery: None (Room Air) (04/15 756) BP: (109-125)/(60-74) Temp: [36.3 C (97.3 F)-36.8 C (98.2 F)] Pulse: [85-98] Respirations: [16 PER MINUTE-18 PER MINUTE] SpO2: [94 %-100 %] O2 Delivery: None (Room Air) Vitals: 04/13/18 0853 04/14/18 0535 04/15/18 0624 Weight: 89.6 kg (197 lb 8.5 oz) 90.7 kg (199 lb 15.3 oz) 84.3 kg (185 lb 13.6 oz ) Intake/Output Summary: (Last 24 hours) Intake/Output Summary (Last 24 hours) at 04/15/18 0938 Last data filed at 04/15/18 0903 Gross per 24 hour Intake 1182 ml Output 8200 ml Net -7018 ml Stool Occurrence: 0 Physical Exam Gen - Alert, NAD, cooperative Chest - Decreased BS at bases bilaterally CV - RRR, no m/r/g Abd - Soft, NT, ND, +BS, small wound/lesion in LLQ Ext - 1+ edema of RLE to mid tibia, warm, well-perfused. S/p L BKA Skin - Excoriations on back and extremities Lab Review Pertinent labs reviewed Point of Care Testing (Last 24 hours) Glucose: (!) 237 (04/15/18 0300) POC Glucose (Download): (!) 239 (04/15/18 0802) Radiology and other Diagnostics Review: Pertinent radiology reviewed. Tay Mahan MD Pager [phone] * yV Gregorio RN - 04/15/2018 5:27 AM CDT Formatting of this note may be different from the original. Heart Failure Nursing Progress Note Admission Date: 04/10/2018 LOS: 4 days Admission Weight: 88.1 kg (194 lb 3.6 oz) Most recent weights (inpatient): Vitals: 04/13/18 0853 04/14/18 0535 04/15/18 0624 Weight: 89.6 kg (197 lb 8.5 oz) 90.7 kg (199 lb 15.3 oz) 84.3 kg (185 lb 13.6 oz ) Weight change from previous day: -6.4kg Fluid restriction ordered: 1500mL Intake/Output Summary: (Last 24 hours) Intake/Output Summary (Last 24 hours) at 04/15/18 0736 Last data filed at 04/15/18 0300 Gross per 24 hour Intake 1442 ml Output 7900 ml Net -6458 ml Is patient incontinent No Anticipated discharge date: 04/17/18 Discharge goals: prevent readmission to hospital Daily Assessment of Patient Stated Goals: Short Term Goal Identified by patient (Short Term=during hospitalization): Get stronger * Ofe Kulkarni, RN - 04/14/2018 4:48 PM CDT Assumed care at 0700. Assessments completed and documented. Orders, labs, MAR reviewed. No acute changes throughout the day. VSS Mentation: A&Ox4; calm & cooperative; follows commands appropriately. 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 Active transfer to chair Pain: patient did not c/o pain through out the day Will continue to monitor and pass along to oncoming RN. * Bi Mix, PT - 04/14/2018 2:30 PM CDT PHYSICAL THERAPY ASSESSMENT MOBILITY: Progressive Mobility Level: Active transfer to chair Level of Assistance: Independent Assistive Device: Wheelchair Time Tolerated: 11-30 minutes Activity Limited By: No limitations SUBJECTIVE: PMH: poorly controlled diabetes, left BKA, Methamphetamine Abuse . Reason for admisison: Left Ventricular Mass Mental / Cognitive Status: Alert;Cooperative;Follows Commands Pain: Patient has no complaint of pain Patient Owned Equipment: Manual Wheelchair Home Situation: Lives Alone Type of Home: House Entry Stairs: 1-2 Stairs - patient crawls up/down the stairs. In-Home Stairs: Able to Live on One Level Patient verbalized to me that she independent with activities of daily living including bathing, dressing and hygiene. She also reports that she has no bathroom accessibility concerns. BED MOBILITY/TRANSFERS: Rolling: Independent Supine to Sit: Independent Sit to Supine: Independent Transfer Type: Squat Pivot Transfer: Assistance Level: Bed;To/From;Wheelchair Dynamic Sitting Balance;Independent WHEELCHAIR MOBILITY: Distance: 200 feet Assistance Level: Independent Method: Propels Manual Wheelchair with;Bilateral;UE EDUCATION: Persons Educated: Patient Patient Barriers To Learning: None Noted Teaching Methods: Verbal Instruction Patient Response: Verbalized Understanding Topics: Plan/Goals of PT Interventions ASSESSMENT/PROGRESS: Patient level of independence and safety is consistent with prior level of function and does not require physical therapy intervention. AM-PAC 6 Clicks Basic Mobility Inpatient Turning from your back to your side while in a flat bed without using bed rails : None Moving from lying on your back to sitting on the side of a flatbed without using bedrails : None Moving to and from a bed to a chair (including a wheelchair): None Standing up from a chair using your arms (e.g. wheelchair, or bedside chair): Total To walk in hospital room: Total Climbing 3-5 steps with a railing: Total Raw Score: 15 Standardized (T-scale) Score: 36.97 Basic Mobility CMS 0-100%: 50.4 CMS G Code Modifier for Basic Mobility: CK PT PLAN: Frequency: No Further Treatment RECOMMENDATIONS: PT Discharge Recommendations: No Further PT Indicated Equipment Recommendations: Patient owns necessary equipment Therapist: Bi Mix, PT Date: 04/14/2018 G-Codes: Body Position G8981 Current Status: 40-59% Impairment G8982 Goal Status: 40-59% Impairment G8983 Discharge Status: 40-59% Impairment Based on above evaluation and clinical judgment. * Keturah Burciaga, OT - 04/14/2018 2:22 PM CDT OCCUPATIONAL THERAPY NO TREATMENT NOTE The patient was not seen due to: Patient not available; preparing for procedure. Attempted to see patient 1 time(s) Therapist: Keturah Pitt, OTR [id number] Date: 04/14/2018 * Darling Mosley - 04/14/2018 11:21 AM CDT CLINICAL NUTRITION Clinical Nutrition Assessment Summary Nutrition Assessment of Patient: BMI Categories Adult: Over Weight: 25-29.9 Malnutrition Assessment: Does not meet criteria Current Oral Intake: Adequate Estimated Calorie Needs: 5750-5405 (25-28 kcal/kg desired adjusted wt of 75.9 kg ) Estimated Protein Needs: 91-114 (1.2-1.5 g/kg per desired adjusted wt of 75.9 kg ) Oral Diet Order: Cardiac, Diabetic 4465-7894 Kcal/day (60 g Carb/meal, 30 g Carb /HS snack), 1500 mL/Day Fluid Restriction Betina Shaffer a 48 y.o. yo F hx of Tobacco Abuse, Uncontrolled DM2, Microcytic Anemia of unknown origin, Methamphetamine Abuse presented to [facility] on the evening of 04/10/18 as a transfer from [facility] in [place], [place] after CTA of the Chest showed a Left Ventricular Mass. RD was following due to stage 2 pressure injury on left buttocks which has been removed from chart. RD will stop vitamin C and zinc. 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 Pt has been eating 75-100% of meals this admission. 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 Pt is unsure of usual wt, but thinks it is likely close to ~200#, current wt is 199#, she denies recent wt loss. Noted left BKA. Pt's A1C is 10.5, pt reports that she has been a diabetic for a long time and denied further education. Noted poor compliance with insulin regimen. RD left handouts for pt to review. RD reviewed low sodium diet and provided handout. Pt is not at acute nutrition risk to pressure injury being removed from chart, stable wt, and very good intakes. RD will not follow unless otherwise consulted. Recommendation: Continue current diet order Intervention / Plan: Provided low sodium education and offered DM education again Stopped vitamin C and zinc Nutrition Diagnosis: Nutrition Diagnosis: Increased nutrient needs, specify: (kcal/protein) Etiology: stage 2 left buttocks pressure injury Signs & Symptoms: increased demands for wound healing Goals: Prevent further skin breakdown Time Frame: Throughout Stay Status: Met Patient to consume >75% of meals/supplements Time Frame: Throughout Stay Status: Met Darling Mosley, RD, LD *[id number] * Catherine Ware MD - 04/14/2018 11:10 AM CDT R4 Update Note: Planning to perform pelvic exam, pap, EMB today. Patient currently declining Mirena IUD insertion for AUB. Discussed that the Mirena would be an option for management of AUB, however there is ~11% expulsion risk due to presence of uterine fibroids. Betina is considering a uterine artery embolization. We discussed that EMB results are necessary prior to proceeding with UAE. Patient verbalizes understanding. Consented for endometrial biopsy. Risks discussed including bleeding, infection, uterine perforation. D/w Dr. Adelia Ware MD Obstetrics and Gynecology, PGY4 Pager - [phone] * Concetta Mccrary MD - 04/14/2018 10:07 AM CDT Formatting of this note may be different from the original. General Progress Note Name: Betina Baron Today's Date: 04/14/2018 Admission Date: 04/10/2018 LOS: 3 days Assessment/Plan: Active Problems: Mass of heart Acute systolic CHF (congestive heart failure) (HCC) LV (left ventricular) mural thrombus without TX Iron deficiency anemia Polysubstance abuse DM (diabetes mellitus) (HCC) Fibroids Betina Baron is a 50 y.o. female 48 yo F hx of Tobacco Abuse, Uncontrolled DM2, Microcytic Anemia of unknown origin, Methamphetamine Abuse presented to [facility] on the evening of 04/10/18 as a transfer from [facility] in [place], [place] after CTA of the Chest showed a Left Ventricular Mass. Large LV Thrombus - Large Filling Defect in the Left Ventricle 3.7x 2.7x 3.7cm visible on CTA Chest at [facility] - CT Chest with contrast 04/12: Left ventricular mass, which may reflect a myxoma , thrombus, or metastasis. - Echo 04/12 -moderately dilated LV with EF of 15%. Massive large thrombus filling up the majority of the LV apex with large portion of thrombus highly mobile. Global hypokinesis of LV with akinetic segments. CVP greater than 15. PASP equals 53 - Pt unable to tolerate MRI despite multiple attempts - Continue Heparin drip. Started Coumadin 5mg 04/13 - CTS was consulted. No surgical intervention at this time. Recommend continuing current management with anticoagulation - Cardiology consulted Acute Systolic CHF, Dilated Cardiomyopathy, Elevated Troponin - Etiology nonischemic cardiomyopathy from drug use versus ischemic cardiomyopathy versus medical - Echo as above - No coronary calcifications on CT - 04/13 Cardiac cath without CAD - Troponin peaked at 2.33 - Elevated BNP 2773. Bilateral pleural effusions on imaging - Started on heart failure therapy with Coreg and lisinopril - Started on ASA and atorvastatin - Started on Aldactone - Diuresis with IV Lasix 60 BID - I/o, daily weights - Cardiology consulted Iron Deficiency Anemia - Likely related to severe vaginal bleeding possibly from large uterine fibroid - Had received 2 units of blood prior to transfer - Continue IV iron x 5 doses - Close monitoring of bleeding while on anticoagulation - Hgb stable in low 7s currently Large Uterine Fibroid - CT A/p showing Ovoid masses in the uterus, most reflective of fibroids. Uterine malignancy is not entirely excluded.Prominence of the bilateral ovaries, greater on the left. Wedge shaped hypodensities in bilateral kidneys - suspicious for renal infarcts - Also with fistulous tract near prior pfannenstial incision from C/S - Transvaginal ultrasound shows enlarged fibroid uterus, predominantly intramural. Bilateral ovarian cysts. Limited eval of endometrium - Hold on fistulogram at this time until acute issue is adressed. 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 Will need follow-up DM2 - Non compliant with insulin at home - prescribed Lantus 30 QHS and Novolog 20 with meals - Metformin held - Hemoglobin A1c 10 - Increase Lantus to 14U QHS, add back mealtime 5U Aspart. LDCF - Adjust as needed - DM educator consulted Methamphetamine Abuse/Benzo Abuse; Tobacco Abuse - 30 pack year history of smoking and reportedly still smoking 1 ppd - UDS+ at OSH for Methamphetamines and Benzo's - Patient denies any drug use in the past 7 years, but did admit to using methamphetamine 7 years ago. Reports that "she only ever smoked it" and denies IV drug use - Counseled on abstinence FEN - Cardiac, Diabetic diet, 1.5L FR - No IVF - K & Mag replaced Proph - heparin gtt Code status: Full code Dispo - Continue inpatient care - PT/OT consulted - Pt is uninsured Philip Baron is a 48 y.o. female. Reports doing well this morning. Leg swelling is decreasing. No chest pain or dyspnea. No groin pain. No vaginal bleeding. ROS No fevers No n/v, abd pain No cough or dyspnea Medications Scheduled Meds: ascorbic acid (VITAMIN C) tablet 500 mg 500 mg Oral QDAY aspirin EC tablet 81 mg 81 mg Oral QDAY atorvastatin (LIPITOR) tablet 80 mg 80 mg Oral QDAY carvedilol (COREG) tablet 3.125 mg 3.125 mg Oral BID furosemide (LASIX) injection 80 mg 80 mg Intravenous BID(08-14) insulin aspart U-100 (NOVOLOG FLEXPEN) injection PEN 0-7 Units 0-7 Units Subcutaneous 5 X Day insulin aspart U-100 (NOVOLOG FLEXPEN) injection PEN 5 Units 5 Units Subcutaneous TID w/ meals insulin glargine (LANTUS SOLOSTAR, BASAGLAR) injection PEN 14 Units 14 Units Subcutaneous QHS iron sucrose (VENOFER) injection 200 mg 200 mg Intravenous QDAY lisinopril (PRINIVIL, ZESTRIL) tablet 2.5 mg 2.5 mg Oral QDAY magnesium sulfate 1 g/D5W 100 mL IVPB 1 g Intravenous Q1H X 2DO nystatin (NYSTOP) topical powder Topical BID spironolactone (ALDACTONE) tablet 25 mg 25 mg Oral BID(08-14) vitamin A & D topical ointment Topical QDAY vitamins, multi w/minerals tablet 1 tablet 1 tablet Oral QDAY warfarin (COUMADIN) tablet 5 mg 5 mg Oral QHS And warfarin, pharmacy to manage 1 each Service Per Pharmacy zinc sulfate capsule 220 mg 220 mg Oral QDAY Continuous Infusions: heparin (porcine) 20,000 Units in dextrose 5% (D5W) 250 mL IV infusion (dbl conc) 2,222 Units/hr (04/14/18 0741) PRN and Respiratory Meds:acetaminophen Q4H PRN, ondansetron Q8H PRN, oxyCODONE Q6H PRN Objective: Vital Signs: Last Filed Vital Signs: 24 Hour Range BP: 110/54 (04/14 747) Temp: 36.9 C (98.5 F) (04/14 747) Pulse: 95 (04/14 747) Respirations: 14 PER MINUTE (04/14 747) SpO2: 100 % (04/14 747) O2 Delivery: None (Room Air) (04/14 07) SpO2 Pulse: 80 (04/13 1400) BP: (98-121)/(51-84) Temp: [36.4 C (97.6 F)-36.9 C (98.5 F)] Pulse: [74-95] Respirations: [10 PER MINUTE-21 PER MINUTE] SpO2: [93 %-100 %] O2 Delivery: None (Room Air) Intensity Pain Scale 0-10 (Pain 1): 7 (04/13/18 2040) Vitals: 04/11/18 1041 04/13/18 0853 04/14/18 0535 Weight: 88.1 kg (194 lb 3.6 oz) 89.6 kg (197 lb 8.5 oz) 90.7 kg (199 lb 15.3 oz ) Intake/Output Summary: (Last 24 hours) Intake/Output Summary (Last 24 hours) at 04/14/18 1007 Last data filed at 04/14/18 0912 Gross per 24 hour Intake 1169 ml Output 1800 ml Net -631 ml Stool Occurrence: 0 Physical Exam Gen - Alert, NAD, cooperative Chest - Decreased BS at bases bilaterally CV - RRR, no m/r/g Abd - Soft, NT, ND, +BS, small wound/lesion in LLQ Ext - 1+ edema of RLE to mid tibia, warm, well-perfused. S/p L BKA Skin - Excoriations on back and extremities Lab Review Pertinent labs reviewed Point of Care Testing (Last 24 hours) Glucose: (!) 234 (04/14/18 0328) POC Glucose (Download): (!) 216 (04/14/18 0740) Radiology and other Diagnostics Review: Pertinent radiology reviewed. Concetta Mccrary MD Pager [phone] * Kay Parsons MD - 04/14/2018 9:53 AM CDT Formatting of this note may be different from the original. Staff Cardiology Progress Note Admission Date: 04/10/2018 Today's Date: 04/14/2018 LOS: 3 days Assessment & Plan Betina Baron is a 48 y.o. patient with the following problems: Active Problems: Mass of heart Acute systolic CHF (congestive heart failure) (HCC) LV (left ventricular) mural thrombus without TX Iron deficiency anemia Polysubstance abuse DM (diabetes mellitus) (HCC) Fibroids 1. Nonischemic cardiomyopathy with large, mobile left ventricular apical thrombus - Cardiac MRI pending. Patient refused Weds night due to orthopnea. WIll augment diuresis - increase lasix to 80 mg IV bid. Continue to encourage accurate ins and outs. Continue coreg, lisinopril and spironolactone. Unfortunately, she is uninsured so a life vest is not an option. Entresto would be a good option as well, but unless we can get medication assistance, I do not think she can afford this. Continue coumadin for goal INR of 2-3. I gave an additional 40 mg IV lasix today as well. Subjective Net negative ~1 liter yesterday. Weight is trending up. She still complains of orthopnea and does not want to pursue cardiac MRI at this point. Medications Scheduled Meds: ascorbic acid (VITAMIN C) tablet 500 mg 500 mg Oral QDAY aspirin EC tablet 81 mg 81 mg Oral QDAY atorvastatin (LIPITOR) tablet 80 mg 80 mg Oral QDAY carvedilol (COREG) tablet 3.125 mg 3.125 mg Oral BID furosemide (LASIX) injection 60 mg 60 mg Intravenous BID(-17) insulin aspart U-100 (NOVOLOG FLEXPEN) injection PEN 0-7 Units 0-7 Units Subcutaneous 5 X Day insulin aspart U-100 (NOVOLOG FLEXPEN) injection PEN 5 Units 5 Units Subcutaneous TID w/ meals insulin glargine (LANTUS SOLOSTAR, BASAGLAR) injection PEN 14 Units 14 Units Subcutaneous QHS iron sucrose (VENOFER) injection 200 mg 200 mg Intravenous QDAY lisinopril (PRINIVIL, ZESTRIL) tablet 2.5 mg 2.5 mg Oral QDAY magnesium sulfate 1 g/D5W 100 mL IVPB 1 g Intravenous Q1H X 2DO nystatin (NYSTOP) topical powder Topical BID spironolactone (ALDACTONE) tablet 25 mg 25 mg Oral BID(9-17) vitamin A & D topical ointment Topical QDAY vitamins, multi w/minerals tablet 1 tablet 1 tablet Oral QDAY warfarin (COUMADIN) tablet 5 mg 5 mg Oral QHS And warfarin, pharmacy to manage 1 each Service Per Pharmacy zinc sulfate capsule 220 mg 220 mg Oral QDAY Continuous Infusions: heparin (porcine) 20,000 Units in dextrose 5% (D5W) 250 mL IV infusion (dbl conc) 2,222 Units/hr (04/14/18 07) PRN and Respiratory Meds:acetaminophen Q4H PRN, ondansetron Q8H PRN, oxyCODONE Q6H PRN Objective Vital Signs: Last Filed Vital Signs: 24 Hour Range BP: 110/54 (04/14 747) Temp: 36.9 C (98.5 F) (04/14 747) Pulse: 95 (04/14 747) Respirations: 14 PER MINUTE (04/14 747) SpO2: 100 % (04/14 747) O2 Delivery: None (Room Air) (04/14 747) SpO2 Pulse: 80 (04/13 1400) BP: (98-121)/(51-84) Temp: [36.4 C (97.6 F)-36.9 C (98.5 F)] Pulse: [74-95] Respirations: [10 PER MINUTE-21 PER MINUTE] SpO2: [93 %-100 %] O2 Delivery: None (Room Air) Intensity Pain Scale 0-10 (Pain 1): 7 (04/13/18 2040) Vitals: 04/11/18 1041 04/13/18 0853 04/14/18 0535 Weight: 88.1 kg (194 lb 3.6 oz) 89.6 kg (197 lb 8.5 oz) 90.7 kg (199 lb 15.3 oz ) Intake/Output Summary: (Last 24 hours) Intake/Output Summary (Last 24 hours) at 04/14/18 0953 Last data filed at 04/14/18 0912 Gross per 24 hour Intake 1169 ml Output 1800 ml Net -631 ml Physical Exam Vitals: 04/14/18 1124 BP: 109/73 Pulse: 95 Temp: 36.8 C (98.2 F) SpO2: 97% GEN: no acute distress HEENT: unremarkable CHEST: bibasilar rales CV: Reg rhythm, nml rate; nml S1 & S2, no S3 or S4; no rub; no murmurs ABD: soft, nontender, BS+, no masses or bruits, no organomegaly EXT: no c/c/e, 2+ distal pulses NEURO: nonfocal Lab Review Results for orders placed or performed during the hospital encounter of (from the past 24 hour(s)) O2HGB SAT-VENOUS POC Collection Time: 04/13/18 9:59 AM Result Value Ref Range O2HGB SAT-Venous POC 97.0 (H) 55 - 71 % POC ACTIVATED CLOTTING TIME Collection Time: 04/13/18 9:59 AM Result Value Ref Range Activated Clotting Time 169 s O2HGB SAT-VENOUS POC Collection Time: 04/13/18 10:13 AM Result Value Ref Range O2HGB SAT-Venous POC 56.5 55 - 71 % O2HGB SAT-VENOUS POC Collection Time: 04/13/18 10:16 AM Result Value Ref Range O2HGB SAT-Venous POC 55.1 55 - 71 % POC GLUCOSE Collection Time: 04/13/18 10:36 AM Result Value Ref Range Glucose, POC 159 (H) 70 - 100 MG/DL POC GLUCOSE Collection Time: 04/13/18 5:51 PM Result Value Ref Range Glucose, POC 326 (H) 70 - 100 MG/DL PTT (APTT) Collection Time: 04/13/18 8:45 PM Result Value Ref Range APTT 66.9 (H) 21.0 - 39.0 SEC POC GLUCOSE Collection Time: 04/13/18 8:49 PM Result Value Ref Range Glucose, POC 258 (H) 70 - 100 MG/DL POC GLUCOSE Collection Time: 04/14/18 3:06 AM Result Value Ref Range Glucose, POC 253 (H) 70 - 100 MG/DL PTT (APTT) Collection Time: 04/14/18 3:28 AM Result Value Ref Range APTT 86.3 (H) 21.0 - 39.0 SEC COMPREHENSIVE METABOLIC PANEL Collection Time: 04/14/18 3:28 AM Result Value Ref Range Sodium 135 (L) 137 - 147 MMOL/L Potassium 4.3 3.5 - 5.1 MMOL/L Chloride 102 98 - 110 MMOL/L Glucose 234 (H) 70 - 100 MG/DL Blood Urea Nitrogen 17 7 - 25 MG/DL Creatinine 0.68 0.4 - 1.00 MG/DL Calcium 8.5 8.5 - 10.6 MG/DL Total Protein 5.7 (L) 6.0 - 8.0 G/DL Total Bilirubin 0.4 0.3 - 1.2 MG/DL Albumin 3.0 (L) 3.5 - 5.0 G/DL Alk Phosphatase 110 25 - 110 U/L AST (SGOT) 15 7 - 40 U/L CO2 30 21 - 30 MMOL/L ALT (SGPT) 9 7 - 56 U/L Anion Gap 3 3 - 12 eGFR Non >60 >60 mL/min eGFR >60 >60 mL/min CBC AND DIFF Collection Time: 04/14/18 3:28 AM Result Value Ref Range White Blood Cells 9.3 4.5 - 11.0 K/UL RBC 3.78 (L) 4.0 - 5.0 M/UL Hemoglobin 7.7 (L) 12.0 - 15.0 GM/DL Hematocrit 26.1 (L) 36 - 45 % MCV 69.1 (L) 80 - 100 FL MCH 20.4 (L) 26 - 34 PG MCHC 29.5 (L) 32.0 - 36.0 G/DL RDW 36.6 (H) 11 - 15 % Platelet Count 574 (H) 150 - 400 K/UL MPV 9.3 7 - 11 FL Neutrophils 65 41 - 77 % Lymphocytes 21 (L) 24 - 44 % Monocytes 8 4 - 12 % Eosinophils 5 0 - 5 % Basophils 1 0 - 2 % Absolute Neutrophil Count 6.00 1.8 - 7.0 K/UL Absolute Lymph Count 2.00 1.0 - 4.8 K/UL Absolute Monocyte Count 0.70 0 - 0.80 K/UL Absolute Eosinophil Count 0.40 0 - 0.45 K/UL Absolute Basophil Count 0.10 0 - 0.20 K/UL MAGNESIUM Collection Time: 04/14/18 3:28 AM Result Value Ref Range Magnesium 1.7 1.6 - 2.6 mg/dL PROTIME INR (PT) Collection Time: 04/14/18 3:28 AM Result Value Ref Range INR 1.1 0.8 - 1.2 POC GLUCOSE Collection Time: 04/14/18 7:40 AM Result Value Ref Range Glucose, POC 216 (H) 70 - 100 MG/DL Tele sinus rhythm Kay Parsons MD * Fay Uribe, RT - 04/14/2018 9:20 AM CDT Formatting of this note may be different from the original. RESPIRATORY THERAPY ADULT PROTOCOL EVALUATION RESPIRATORY PROTOCOL PLAN Medications Note: If indicated by protocol, medication orders will be placed by therapist. Procedures Oxygen/Humidity: Discontinued Monitoring: Discontinued PATIENT EVALUATION RESULTS Chart Review * Pulmonary Hx: Smoking cessation < 8 weeks OR still smoking OR > 20 pack/yr hx (PEFR) OR occasional use of bronchodilator (AM) (still smokes) * Surgical Hx: No surgery OR last surgery > 6 weeks ago OR trach/stoma (BA) * Chest X-Ray: Clear OR not available (no current CXR) * PFT/Oxygenation: FEV1, PEFR > 80% predicted OR physically unable to perform OR Pa02 >80 RA OR Sp02 >95% RA Patient Assessment * Respiratory Pattern: Regular pattern and rate OR good chest excursion with deep breathing * Breath Sounds: Clear and able to auscultate bases posteriorly * Cough / Sputum: Strong, effective cough OR nonproductive * Mental Status: Alert, oriented, cooperative * Activity Level: Ambulatory with assistance Priority Index Total Points: 3 Points * Priority Index: Criteria not met PRIORITY INDEX GUIDELINES* Priority Points 1 0-9 points 2 9-18 points 3 > 18 points + Pulm Dx or Home Rx *Higher points indicate higher acuity. Therapist: Fay Uribe, RT Date: 04/14/2018 Rodriguez AC=Airway clearance AM=Aerosolized medication BA=[place] aerosol DB&C=Deep breathe & cough FEV1=Forced expiratory volume in first second) IC=Inspiratory capacity LE=Lung expansion MDI=Metered dose inhaler Neb=Nebulizer O2=Oxygen Oxim=Oximetry PEFR=Peak expiratory flow rate CHIEF ENGINEER RESEARCH=Rapid Response Team * Vy Gregorio RN - 04/14/2018 6:23 AM CDT Formatting of this note may be different from the original. Heart Failure Nursing Progress Note Admission Date: 04/10/2018 LOS: 3 days Admission Weight: 88.1 kg (194 lb 3.6 oz) Most recent weights (inpatient): Vitals: 04/11/18 1041 04/13/18 0853 04/14/18 0535 Weight: 88.1 kg (194 lb 3.6 oz) 89.6 kg (197 lb 8.5 oz) 90.7 kg (199 lb 15.3 oz ) Weight change from previous day: + 1.1kg Fluid restriction ordered: Yes; 1500ml Intake/Output Summary: (Last 24 hours) Intake/Output Summary (Last 24 hours) at 04/14/18 0625 Last data filed at 04/14/18 0624 Gross per 24 hour Intake 909 ml Output 1800 ml Net -891 ml Is patient incontinent No Anticipated discharge date: TBD Discharge goals: Prevent readmission Daily Assessment of Patient Stated Goals: Short Term Goal Identified by patient (Short Term=during hospitalization): Decrease SOA with exertion * Sade Angelo RN - 04/13/2018 7:16 PM CDT Formatting of this note may be different from the original. Heart Failure Nursing Progress Note Admission Date: 04/10/2018 LOS: 2 days Admission Weight: 88.1 kg (194 lb 3.6 oz) Most recent weights (inpatient): Vitals: 04/10/18 2225 04/11/18 1041 04/13/18 0853 Weight: 88.1 kg (194 lb 3.6 oz) 88.1 kg (194 lb 3.6 oz) 89.6 kg (197 lb 8.5 oz) Weight change from previous day:NA Fluid restriction ordered: 1500mLs Intake/Output Summary: (Last 24 hours) Intake/Output Summary (Last 24 hours) at 04/13/18 1916 Last data filed at 04/13/18 1753 Gross per 24 hour Intake 1045 ml Output 950 ml Net 95 ml Is patient incontinent No Anticipated discharge date: ongoing Discharge goals: get out of here Daily Assessment of Patient Stated Goals: Short Term Goal Identified by patient (Short Term=during hospitalization): Get out of here * Princess Acosta, RN - 04/13/2018 1:[address] Whitaker gave orders to run heparin drip 4 hrs post HS at the rate it was running prior to heart cath then recheck APTT in [address] Whitaker would like pt on bed rest during the first four hours that heparin drip is running. * Concetta Mccrary MD - 04/13/2018 12:52 PM CDT Formatting of this note may be different from the original. General Progress Note Name: Betina Baron Today's Date: 04/13/2018 Admission Date: 04/10/2018 LOS: 2 days Assessment/Plan: Active Problems: Mass of heart Acute systolic CHF (congestive heart failure) (HCC) LV (left ventricular) mural thrombus without TX Iron deficiency anemia Polysubstance abuse DM (diabetes mellitus) (HCC) Fibroids Betina Baron is a 48 y.o. female 48 yo F hx of Tobacco Abuse, Uncontrolled DM2, Microcytic Anemia of unknown origin, Methamphetamine Abuse presented to [facility] on the evening of 04/10/18 as a transfer from [facility] in [place], [place] after CTA of the Chest showed a Left Ventricular Mass. Large LV Thrombus - Large Filling Defect in the Left Ventricle 3.7x 2.7x 3.7cm visible on CTA Chest at [facility] - CT Chest with contrast 04/12: Left ventricular mass, which may reflect a myxoma , thrombus, or metastasis. - Echo 04/12 -moderately dilated LV with EF of 15%. Massive large thrombus filling up the majority of the LV apex with large portion of thrombus highly mobile. Global hypokinesis of LV with akinetic segments. CVP greater than 15. PASP equals 53 - Pt unable to tolerate MRI - Continue Heparin drip. Starting Coumadin - CTS was consulted. No surgical intervention at this time. Recommend continuing current management with anticoagulation - Cardiology consulted Acute Systolic CHF, Dilated Cardiomyopathy, Elevated Troponin - Etiology nonischemic cardiomyopathy from drug use versus ischemic cardiomyopathy versus medical - Echo as above - No coronary calcifications on CT - 04/13 Cardiac cath without CAD - Troponin peaked at 2.33 - Elevated BNP 2773. Bilateral pleural effusions on imaging - Started on heart failure therapy with Coreg and lisinopril - Started on ASA and atorvastatin - Started on Aldactone - Diuresis with IV Lasix 60 BID - I/o, daily weights - Cardiology consulted Iron Deficiency Anemia - Likely related to severe vaginal bleeding possibly from large uterine fibroid - Had received 2 units of blood prior to transfer - Continue IV iron x 5 doses - Close monitoring of bleeding while on anticoagulation - Hgb stable in low 7s currently Large Uterine Fibroid - CT A/p showing Ovoid masses in the uterus, most reflective of fibroids. Uterine malignancy is not entirely excluded.Prominence of the bilateral ovaries, greater on the left. Wedge shaped hypodensities in bilateral kidneys - suspicious for renal infarcts - Also with fistulous tract near prior pfannenstial incision from C/S - Transvaginal ultrasound shows enlarged fibroid uterus, predominantly intramural. Bilateral ovarian cysts. Limited eval of endometrium - Hold on fistulogram at this time until acute issue is adressed. 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 Will need follow-up DM2 - non compliant with insulin at home - prescribed Lantus 30 QHS and Novolog 20 with meals - Metformin held - hemoglobin A1c 10 - started with 10 units of lantus - adjust as needed - [facility] Methamphetamine Abuse/Benzo Abuse; Tobacco Abuse - 30 pack year history of smoking and reportedly still smoking 1 ppd - UDS+ at OSH for Methamphetamines and Benzo's - Patient denies any drug use in the past 7 years, but did admit to using methamphetamine 7 years ago. Reports that "she only ever smoked it" and denies IV drug use - counseled on abstinence FEN - Cardiac, Diabetic diet, 1.5L FR - No IVF - K & Mag replaced Proph - on heparin gtt Code status: Full code Dispo - Continue inpatient care - PT/OT consulted - Pt is uninsured Subjective Betina Baron is a 48 y.o. female. Unable to do MRI last night, even when offered Ativan for claustrophobia. Denies dyspnea and chest pain. Leg edema is improving. ROS No fevers No n/v, abd pain No cough or dyspnea Medications Scheduled Meds: ascorbic acid (VITAMIN C) tablet 500 mg 500 mg Oral QDAY aspirin EC tablet 81 mg 81 mg Oral QDAY atorvastatin (LIPITOR) tablet 80 mg 80 mg Oral QDAY carvedilol (COREG) tablet 3.125 mg 3.125 mg Oral BID furosemide (LASIX) injection 60 mg 60 mg Intravenous BID(08-14) insulin aspart U-100 (NOVOLOG FLEXPEN) injection PEN 0-14 Units 0-14 Units Subcutaneous ACHS insulin glargine (LANTUS SOLOSTAR, BASAGLAR) injection PEN 10 Units 10 Units Subcutaneous QHS iron sucrose (VENOFER) injection 200 mg 200 mg Intravenous QDAY lisinopril (PRINIVIL, ZESTRIL) tablet 2.5 mg 2.5 mg Oral QDAY magnesium sulfate 1 g/D5W 100 mL IVPB 1 g Intravenous Q1H X 2DO nystatin (NYSTOP) topical powder Topical BID spironolactone (ALDACTONE) tablet 25 mg 25 mg Oral BID(08-14) vitamin A & D topical ointment Topical QDAY vitamins, multi w/minerals tablet 1 tablet 1 tablet Oral QDAY warfarin (COUMADIN) tablet 5 mg 5 mg Oral QHS And warfarin, pharmacy to manage 1 each Service Per Pharmacy zinc sulfate capsule 220 mg 220 mg Oral QDAY Continuous Infusions: heparin (porcine) 20,000 Units in dextrose 5% (D5W) 250 mL IV infusion (dbl conc) Stopped (04/13/18 1035) PRN and Respiratory Meds:ondansetron Q8H PRN, oxyCODONE Q4H PRN Objective: Vital Signs: Last Filed Vital Signs: 24 Hour Range BP: 114/65 (04/13 1200) Temp: 36.5 C (97.7 F) (04/13 1029) Pulse: 83 (04/13 1200) Respirations: 18 PER MINUTE (04/13 1200) SpO2: 98 % (04/13 1200) O2 Delivery: None (Room Air) (04/13 1029) SpO2 Pulse: 83 (04/13 1200) Height: 180.3 cm (71") (04/13 0853) BP: (100-133)/(47-78) Temp: [36.3 C (97.3 F)-36.8 C (98.3 F)] Pulse: [74-88] Respirations: [10 PER MINUTE-20 PER MINUTE] SpO2: [92 %-99 %] O2 Delivery: None (Room Air) Intensity Pain Scale 0-10 (Pain 1): 9 (04/13/18 1145) Vitals: 04/10/18 2225 04/11/18 1041 04/13/18 0853 Weight: 88.1 kg (194 lb 3.6 oz) 88.1 kg (194 lb 3.6 oz) 89.6 kg (197 lb 8.5 oz) Intake/Output Summary: (Last 24 hours) Intake/Output Summary (Last 24 hours) at 04/13/18 1253 Last data filed at 04/13/18 0450 Gross per 24 hour Intake 1491 ml Output 1250 ml Net 241 ml Stool Occurrence: 0 Physical Exam Gen - Alert, NAD, cooperative Chest - Decreased BS at bases bilaterally CV - RRR, no m/r/g Abd - Soft, NT, ND, +BS, small wound/lesion in LLQ Ext - 1+ edema of RLE to mid tibia, warm, well-perfused. S/p L BKA Skin - Excoriations on back and extremities Lab Review Pertinent labs reviewed Point of Care Testing (Last 24 hours) Glucose: (!) 174 (04/13/18 0635) POC Glucose (Download): (!) 159 (04/13/18 1036) Radiology and other Diagnostics Review: Pertinent radiology reviewed. Concetta Mccrary MD Pager [phone] * Concetta Veliz, PHARMD - 04/13/2018 12:16 PM CDT Formatting of this note may be different from the original. Pharmacy Warfarin Note Subjective: Pharmacy consulted to assist with management of warfarin therapy. Objective: Betina Baron is a 48 y.o. female receiving warfarin for LV apical thrombus . Current Warfarin Orders Medication Dose Route Frequency warfarin (COUMADIN) tablet 5 mg 5 mg Oral QHS And warfarin, pharmacy to manage 1 each Service Per Pharmacy Bridge therapy: Heparin . Patient's warfarin dose prior to admission: INR Date/Time Value Ref Range Status 04/11/2018 0155 1.1 0.8 - 1.2 Final Assessment: Patient's goal INR is 2-3 for LV apical thrombus . INR: INR (no units) Date/Time Value 04/11/2018 0155 1.1 Plan: Will start warfarin 5 mg daily. Next INR: Tomorrow Pharmacy will continue to monitor, follow and adjust therapy as needed. If a patient requires an invasive procedure that necessitates warfarin being held, anticoagulation reversal, or if a provider other than Pharmacy discontinues/places an order for warfarin, the pharmacy to manage warfarin order will be discontinued per the policy and warfarin therapy will no longer be managed by Pharmacy Concetta Veliz, MATTYD 04/13/2018 * Bi Mix, PT - 04/13/2018 11:40 AM CDT PHYSICAL THERAPY I agree with the evaluating Occupational Therapists recommendation that a post acute inpatient setting should be anticipated. Her prior level of function, medical comorbidities combined with her current illness places her at risk for a meaningful regression in functional abilities. Patient is expected to undergo surgical intervention today to address a left ventricular mass. Our service will follow up post operatively. SUBJECTIVE: Patient Owned Equipment: Manual Wheelchair Home Situation: Lives Alone - family helps as needed Type of Home: House Entry Stairs: 1-2 Stairs - patient states she crawls up/down entry stairs In-Home Stairs: Able to Live on One Level Therapist: Bi Mix, PT Date: 04/13/2018 * Princess Acosta, RN - 04/13/2018 8:47 AM CDT 0845- Patient arrived on unit via bed accompanied by transport. Patient transferred to the bed without assistance. Frailty score equals 3 Assessment completed, refer to flowsheet for details. Orders released, reviewed, and implemented as appropriate. Oriented to surroundings, call light within reach. Plan of care reviewed. Will continue to monitor and assess. * Kay Parsons MD - 04/13/2018 8:43 AM CDT Formatting of this note may be different from the original. Staff Cardiology Progress Note Admission Date: 04/10/2018 Today's Date: 04/13/2018 LOS: 2 days Assessment & Plan Betina Baron is a 48 y.o. patient with the following problems: Active Problems: Mass of heart 1. Severe systolic heart failure, LVEF 15% 2. Uncontrolled diabetes 3. Previous drug use 4. Current tobacco use 5. Large left ventricular apical thrombus - CTS evaluated for VAD + thrombectomy and recommended heparin/coumadin. High embolic potential. Patient is aware. 6. Severe iron deficiency anemia due to bleeding uterine fibroids. Hemoglobin stable on heparin. Start coumadin today. PLAN Left and right heart cath today showed no obstructive CAD. Her cardiac output was 5.6 , CI was 2.69. RA pressure 16 mmHg, RV pressure 45/11, PCWP 25. . Ins and outs not correct, no daily weights recorded - discussed with nursing staff this am the importance of documenting this in a heart failure patient that we are diuresing. Will continue diuresis today. Add spironolactone 25 mg po bid. Start coumadin 5 mg daily. Increase IV lasix diuresis to 60 mg IV bid. Subjective No complaints today. No chest pain No weights recorded on chart. Medications Scheduled Meds: ascorbic acid (VITAMIN C) tablet 500 mg 500 mg Oral QDAY aspirin EC tablet 81 mg 81 mg Oral QDAY atorvastatin (LIPITOR) tablet 80 mg 80 mg Oral QDAY carvedilol (COREG) tablet 3.125 mg 3.125 mg Oral BID furosemide (LASIX) injection 40 mg 40 mg Intravenous BID(08-14) insulin aspart U-100 (NOVOLOG FLEXPEN) injection PEN 0-28 Units 0-28 Units Subcutaneous ACHS insulin glargine (LANTUS SOLOSTAR, BASAGLAR) injection PEN 10 Units 10 Units Subcutaneous QHS iron sucrose (VENOFER) injection 200 mg 200 mg Intravenous QDAY lisinopril (PRINIVIL, ZESTRIL) tablet 2.5 mg 2.5 mg Oral QDAY nystatin (NYSTOP) topical powder Topical BID specific medication, pharmacy to manage 1 each Service Per Pharmacy vitamin A & D topical ointment Topical QDAY vitamins, multi w/minerals tablet 1 tablet 1 tablet Oral QDAY zinc sulfate capsule 220 mg 220 mg Oral QDAY Continuous Infusions: heparin (porcine) 20,000 Units in dextrose 5% (D5W) 250 mL IV infusion (dbl conc) 2,122 Units/hr (04/13/18 07) PRN and Respiratory Meds:ondansetron Q8H PRN, oxyCODONE Q4H PRN Objective Vital Signs: Last Filed Vital Signs: 24 Hour Range BP: 108/56 (04/13 820) Temp: 36.5 C (97.7 F) (04/13 820) Pulse: 86 (04/13 820) Respirations: 18 PER MINUTE (04/13 820) SpO2: 98 % (04/13 820) O2 Delivery: None (Room Air) (05/17 0820) BP: (100-133)/(47-78) Temp: [36.3 C (97.3 F)-36.8 C (98.3 F)] Pulse: [80-88] Respirations: [14 PER MINUTE-18 PER MINUTE] SpO2: [92 %-98 %] O2 Delivery: None (Room Air) Intensity Pain Scale 0-10 (Pain 1): 8 (04/12/18 1633) Vitals: 04/10/18 2225 04/11/18 1041 Weight: 88.1 kg (194 lb 3.6 oz) 88.1 kg (194 lb 3.6 oz) Intake/Output Summary: (Last 24 hours) Intake/Output Summary (Last 24 hours) at 04/13/18 0843 Last data filed at 04/13/18 0450 Gross per 24 hour Intake 2552 ml Output 2050 ml Net 502 ml Physical Exam Vitals: 04/13/18 0820 BP: 108/56 Pulse: 86 Temp: 36.5 C (97.7 F) SpO2: 98% GEN: no acute distress HEENT: unremarkable CHEST: clear to auscultation bilaterally CV: Reg rhythm, nml rate; nml S1 & S2, no S3 or S4; no rub; no murmurs ABD: soft, nontender, BS+, no masses or bruits, no organomegaly EXT: no c/c/e, 2+ distal pulses NEURO: nonfocal Lab Review Results for orders placed or performed during the hospital encounter of (from the past 24 hour(s)) TROPONIN-I Collection Time: 04/12/18 11:13 AM Result Value Ref Range Troponin-I 2.02 (H) 0.0 - 0.05 NG/ML POC GLUCOSE Collection Time: 04/12/18 12:29 PM Result Value Ref Range Glucose, POC 223 (H) 70 - 100 MG/DL PTT (APTT) Collection Time: 04/12/18 3:34 PM Result Value Ref Range APTT 57.1 (H) 21.0 - 39.0 SEC BASIC METABOLIC PANEL Collection Time: 04/12/18 4:00 PM Result Value Ref Range Sodium 136 (L) 137 [...] 10.6 MG/DL eGFR Non >60 >60 mL/min eGFR >60 >60 mL/min TROPONIN-I Collection Time: 04/12/18 4:00 PM Result Value Ref Range Troponin-I 1.87 (H) 0.0 - 0.05 NG/ML POC GLUCOSE Collection Time: 04/12/18 4:33 PM Result Value Ref Range Glucose, POC 56 (L) 70 - 100 MG/DL POC GLUCOSE Collection Time: 04/12/18 4:53 PM Result Value Ref Range Glucose, POC 61 (L) 70 - 100 MG/DL POC GLUCOSE Collection Time: 04/12/18 5:16 PM Result Value Ref Range Glucose, POC 83 70 - 100 MG/DL POC GLUCOSE Collection Time: 04/12/18 6:39 PM Result Value Ref Range Glucose, POC 96 70 - 100 MG/DL POC GLUCOSE Collection Time: 04/12/18 8:42 PM Result Value Ref Range Glucose, POC 234 (H) 70 - 100 MG/DL PTT (APTT) Collection Time: 04/12/18 10:28 PM Result Value Ref Range APTT 134.3 (HH) 21.0 - 39.0 SEC PTT (APTT) Collection Time: 04/13/18 6:35 AM Result Value Ref Range APTT 73.9 (H) 21.0 - 39.0 SEC COMPREHENSIVE METABOLIC PANEL Collection Time: 04/13/18 6:35 AM Result Value Ref Range Sodium 137 137 - 147 MMOL/L Potassium 3.8 3.5 - 5.1 MMOL/L Chloride 103 98 - 110 MMOL/L Glucose 174 (H) 70 - 100 MG/DL Blood Urea Nitrogen 17 7 - 25 MG/DL Creatinine 0.58 0.4 - 1.00 MG/DL Calcium 8.5 8.5 - 10.6 MG/DL Total Protein 6.0 6.0 - 8.0 G/DL Total Bilirubin 0.4 0.3 - 1.2 MG/DL Albumin 3.1 (L) 3.5 - 5.0 G/DL Alk Phosphatase 120 (H) 25 - 110 U/L AST (SGOT) 20 7 - 40 U/L CO2 27 21 - 30 MMOL/L ALT (SGPT) 10 7 - 56 U/L Anion Gap 7 3 - 12 eGFR Non >60 >60 mL/min eGFR >60 >60 mL/min CBC AND DIFF Collection Time: 04/13/18 6:35 AM Result Value Ref Range White Blood Cells 10.5 4.5 - 11.0 K/UL RBC 3.88 (L) 4.0 - 5.0 M/UL Hemoglobin 7.7 (L) 12.0 - 15.0 GM/DL Hematocrit 26.5 (L) 36 - 45 % MCV 68.2 (L) 80 - 100 FL MCH 20.0 (L) 26 - 34 PG MCHC 29.3 (L) 32.0 - 36.0 G/DL RDW 36.2 (H) 11 - 15 % Platelet Count 509 (H) 150 - 400 K/UL MPV 9.2 7 - 11 FL Segmented Neutrophils 72 41 - 77 % Lymphocytes 18 (L) 24 - 44 % Monocytes 8 4 - 12 % Eosinophil 2 0 - 5 % ANISO PRESENT HYPO PRESENT POIK PRESENT POLY PRESENT MICRO PRESENT Platelet Estimate T INC Absolute Neutrophil Count Manual 7.56 (H) 1.8 - 7.0 K/UL MAGNESIUM Collection Time: 04/13/18 6:35 AM Result Value Ref Range Magnesium 1.6 1.6 - 2.6 mg/dL POC GLUCOSE Collection Time: 04/13/18 8:18 AM Result Value Ref Range Glucose, POC 198 (H) 70 - 100 MG/DL Tele sinus rhythm. Kay Parsons MD * Vy Gregorio, NELLY - 04/12/2018 11:12 PM CDT Pt to have cardiac MRI tonight. Pt refused despite RN education and keeps stating "there is no way, I have tried them before and I cant". Pt states she is claustrophobic and will not get the MRI. This RN notified Dr. Rodrigues. Dr. Rodrigues placed orders for Ativan. Pt still refuses after this RN educated pt on Ativan to help with anxiety to get MRI done. Pt still refusing at this time. Dr. Rodrigues notified. * Joanna Manley, RN - 04/12/2018 8:02 PM CDT Shift: Day Mentation: A&Ox4 Cardiac: S1,S2; SR w/BBB on tele. Denies chest pain Respiratory: RA; breathing non-labored and symmetrical, SOA at times. O2 on stand by for comfort GI/: voids; last BM 04/08 Nutrition: ADA Activity: x1 with bed barnes Pain: c/o of abdominal pain; PRN medication given Skin: dry scabs covering back and buttocks. Moisture/ old incision drainage noted under panus; nystatin powder placed Family: at bedside part of the shift Hygiene: bath and shower completed Follow up: NPO at [place] for cardiac cath 04/13, discharge plan ongoing. * Joanna Manley RN - 04/12/2018 5:01 PM CDT 1633-patient diaphoretic, c/o of shakiness, sleepy but easily arousable when called on. BS 56; given coke. Tsering Jiang, REGIONAL EDUCATION MANAGER notified. Continue to follow hypoglycemic protocol. 1653- BS 61, patient still c/o of shakiness. Given coke and crackers/ peanutbutter. 1715- BS 83. Will continue to monitor. * Keturah Burciaga, YUSUF - 04/12/2018 2:30 PM CDT Formatting of this note may be different from the original. OCCUPATIONAL THERAPY ASSESSMENT NOTE Patient Name: Betina Baron Room/Bed: [place] [address] Admitting Diagnosis: mass left ventricle Mass of heart Past Medical History: Diagnosis Date DM (diabetes mellitus) (HCC) 48 y.o.[id number] yo F hx of Tobacco Abuse, Uncontrolled DM2, Microcytic Anemia of unknown origin, Methamphetamine Abuse presented to [facility] on the evening of 04/10/18 as a transfer from [facility] in [place], [place] after CTA of the Chest showed a Left Ventricular Mass. Mobility Progressive Mobility Level: Sit on edge of bed Level of Assistance: Assist X1 Assistive Device: Hand Held Activity Limited By: Shortness of air Subjective Patient Stated Goals: Home when I can. Precautions: (fall risk; currently O2 req; Left BKA) Objective Psychosocial Status: Participates in Therapy with Encouragement Home Living Type of Home: House Home Layout: Two Level Bathroom Shower / Tub: Tub/Shower Unit Bathroom Toilet: Standard Home Equipment: Wheelchair-manual Prior Function Level Of [place]: Independent with ADLs and functional transfers;Needed assistance with homemaking Lives With: Alone Receives Help From: Family (former spouse) ADL's Where Assessed: Edge of Bed;Supine, Bed Comment: pt supine in bed upon therapist arrival. She completes bed mobility with bed flat and cues for sequencing, rest breaks due to SOA. she achieves supine to sit and tolerates EOB for home safety education, discussion of benefits of upright activity, and home equipmen/adaptive techniques. Activity Tolerance Comment: 107/64 (MAP 78); O2 SATS 93% on 1 liter nasal cannula Cognition Overall Cognitive Status: (awake; follows verbal requests.) UE AROM Comment: demonstrates general UE AROM with return demo Education Persons Educated: Patient Teaching Methods: Verbal Instruction;Demonstration Patient Response: Verbalized Understanding Topics: Role of OT, Goals for Therapy;DME for Home Discharge (benefits of upright activity; home safety) Goal Formulation: With Patient Assessment Assessment: Decreased ADL Status;Decreased Endurance;Decreased Self-Care Trans; Decreased High-Level ADLs Goal Formulation: Patient AM-PAC 6 Clicks Daily Activity Inpatient Putting on and taking off regular lower body clothes?: A Little Bathing (Including washing, rinsing, drying): A Little Toileting, which includes using toilet, bedpan, or urinal: A Little Putting on and taking off regular upper body clothing: None Taking care of personal grooming such as brushing teeth: None Eating meals?: None Daily Activity Raw Score: 21 Standardized (t-scale) score: 44.27 CMS 0-100% Score: 32.79 CMS G Code Modifier: CJ Plan OT Frequency: 3-5x/week OT Plan for Next Visit: transfer to w/c and propell in hallway or to bathroom. Further Evaluation Goals Pt Will Tolerate Further ADL Evaluation: w/in1-2 sessions (for out of bed activities.) ADL Goals Patient Will Perform Eating: In Chair Patient Will Perform Grooming: in Chair Patient Will Perform UE Dressing: In Chair Functional Transfer Goals Pt Will Perform All Functional Transfers: w/ Stand By Assist (to w/c and back to bed) OT Discharge Recommendations OT Discharge Recommendations: Inpatient Setting Equipment Recommendations: Patient owns necessary equipment OT Plan for Next Visit: transfer to w/c and propell in hallway or to bathroom. Therapist: Keturah Pitt, OTR [id number] Date: 04/12/2018 * Kay Parsons MD - 04/12/2018 10:06 AM CDT Formatting of this note may be different from the original. Staff Cardiology Progress Note Admission Date: 04/10/2018 Today's Date: 04/12/2018 LOS: 1 day Assessment & Plan Betina Baron is a 48 y.o. patient with the following problems: Active Problems: Mass of heart 1. Large left ventricular apical thrombus with high embolic potential and evidence of renal artery embolism on CT abd yesterday - continue heparin gtt. CTS recommended conservative management at this point with heparin and coumadin therapy. 2. Severe Fe deficiency anemia due to bleeding fibroids - Floor Finisher Helper following. Considering mirena IUD. Getting venofer, day 2. 3. Severe cardiomyopathy - Continue coreg and lisinopril for now. If renal function decreases or UOP decreases, may need to hold coreg for now and diurese to euvolemia. Needs director of social media marketing consult for cardiac/diabetic diet. Will add spironolactone tomorrow. Give an additional 40 mg IV lasix now. Keep K >4. Repeat chemistry this afternoon. 4. Elevated cardiac enzymes - likely due to a supply demand mismatch. No acute coronary symptoms. Plan for left and right heart cath tomorrow. 5. Uncontrolled DM - dietary noncompliance. Snickers bar and chips at bedside. Consider circus roustabout 6. History of medication noncompliance I stressed the importance of medication compliance and told her without medications her life expectancy with the severity of disease she has would be less than 3-6 months. She understood and agreed to take medications at home. Subjective Patient had more dyspnea overnight. Diuresing after 40 mg IV lasix. Denies any chest pain. Troponin increasing, no arrhythmias on tele. Medications Scheduled Meds: ascorbic acid (VITAMIN C) tablet 500 mg 500 mg Oral QDAY aspirin EC tablet 81 mg 81 mg Oral QDAY atorvastatin (LIPITOR) tablet 80 mg 80 mg Oral QDAY carvedilol (COREG) tablet 3.125 mg 3.125 mg Oral BID furosemide (LASIX) injection 40 mg 40 mg Intravenous BID(-) furosemide (LASIX) injection 40 mg 40 mg Intravenous ONCE insulin aspart U-100 (NOVOLOG FLEXPEN) injection PEN 0-28 Units 0-28 Units Subcutaneous ACHS insulin glargine (LANTUS SOLOSTAR, BASAGLAR) injection PEN 10 Units 10 Units Subcutaneous QHS iron sucrose (VENOFER) injection 200 mg 200 mg Intravenous QDAY lisinopril (PRINIVIL, ZESTRIL) tablet 2.5 mg 2.5 mg Oral QDAY nystatin (NYSTOP) topical powder Topical BID potassium chloride SR (K-DUR) tablet 40 mEq 40 mEq Oral ONCE vitamins, multi w/minerals tablet 1 tablet 1 tablet Oral QDAY zinc sulfate capsule 220 mg 220 mg Oral QDAY Continuous Infusions: heparin (porcine) 20,000 Units in sodium chloride 0.9% (NS) 500 mL IV infusion (std conc) 2,022 Units/hr (04/12/18 0851) PRN and Respiratory Meds:ondansetron Q8H PRN, oxyCODONE Q4H PRN Objective Vital Signs: Last Filed Vital Signs: 24 Hour Range BP: 115/69 (04/12 0745) Temp: 36.7 C (98.1 F) (04/12 745) Pulse: 91 (04/12 0745) Respirations: 20 PER MINUTE (04/12 745) SpO2: 100 % (04/12 0745) O2 Delivery: Nasal Cannula (04/12 0850) Height: 180.3 cm (5' 11") (04/11 1041) BP: (96-131)/(58-82) Temp: [36.3 C (97.4 F)-37 C (98.6 F)] Pulse: [78-94] Respirations: [18 PER MINUTE-20 PER MINUTE] SpO2: [92 %-100 %] O2 Delivery: Nasal Cannula Intensity Pain Scale 0-10 (Pain 1): 8 (04/12/18 0850) Vitals: 04/10/18 2225 04/11/18 1041 Weight: 88.1 kg (194 lb 3.6 oz) 88.1 kg (194 lb 3.6 oz) Intake/Output Summary: (Last 24 hours) Intake/Output Summary (Last 24 hours) at 04/12/18 1008 Last data filed at 04/12/18 0850 Gross per 24 hour Intake 1910 ml Output 475 ml Net 1435 ml Physical Exam Vitals: 04/12/18 0745 BP: 115/69 Pulse: 91 Temp: 36.7 C (98.1 F) SpO2: 100% GEN: no acute distress, laying on her sie, breathing comfortably HEENT: +JVD, JVP estimated at >15 mmH20 CHEST: decreased breath sounds at bases bilaterally CV: Reg rhythm, nml rate; nml S1 & S2, no S3 or S4; no rub; 2/6 AMOL LLSB ABD: soft, nontender, BS+, no masses or bruits, no organomegaly EXT: left BKA SKin multiple skin excoriations on her back Lab Review Results for orders placed or performed during the hospital encounter of (from the past 24 hour(s)) POC GLUCOSE Collection Time: 04/11/18 11:29 AM Result Value Ref Range Glucose, POC 333 (H) 70 - 100 MG/DL TROPONIN-I Collection Time: 04/11/18 12:00 PM Result Value Ref Range Troponin-I 0.33 (H) 0.0 - 0.05 NG/ML BETA-HCG Collection Time: 04/11/18 12:00 PM Result Value Ref Range Beta-HCG,Serum 1 <5 U/L POC GLUCOSE Collection Time: 04/11/18 4:56 PM Result Value Ref Range Glucose, POC 83 70 - 100 MG/DL TROPONIN-I Collection Time: 04/11/18 5:00 PM Result Value Ref Range Troponin-I 1.29 (H) 0.0 - 0.05 NG/ML PTT (APTT) Collection Time: 04/11/18 5:00 PM Result Value Ref Range APTT 48.0 (H) 21.0 - 39.0 SEC POC GLUCOSE Collection Time: 04/11/18 8:17 PM Result Value Ref Range Glucose, POC 147 (H) 70 - 100 MG/DL TROPONIN-I Collection Time: 04/12/18 12:10 AM Result Value Ref Range Troponin-I 1.59 (H) 0.0 - 0.05 NG/ML PTT (APTT) Collection Time: 04/12/18 1:15 AM Result Value Ref Range APTT 50.7 (H) 21.0 - 39.0 SEC CBC AND DIFF Collection Time: 04/12/18 5:21 AM Result Value Ref Range White Blood Cells 11.4 (H) 4.5 - 11.0 K/UL RBC 3.61 (L) 4.0 - 5.0 M/UL Hemoglobin 7.3 (L) 12.0 - 15.0 GM/DL Hematocrit 24.3 (L) 36 - 45 % MCV 67.3 (L) 80 - 100 FL MCH 20.2 (L) 26 - 34 PG MCHC 30.0 (L) 32.0 - 36.0 G/DL RDW 35.9 (H) 11 - 15 % Platelet Count 490 (H) 150 - 400 K/UL MPV 9.1 7 - 11 FL Neutrophils 74 41 - 77 % Lymphocytes 15 (L) 24 - 44 % Monocytes 9 4 - 12 % Eosinophils 2 0 - 5 % Basophils 0 0 - 2 % Absolute Neutrophil Count 8.50 (H) 1.8 - 7.0 K/UL Absolute Lymph Count 1.70 1.0 - 4.8 K/UL Absolute Monocyte Count 1.00 (H) 0 - 0.80 K/UL Absolute Eosinophil Count 0.20 0 - 0.45 K/UL Absolute Basophil Count 0.00 0 - 0.20 K/UL COMPREHENSIVE METABOLIC PANEL Collection Time: 04/12/18 5:21 AM Result Value Ref Range Sodium 137 137 - 147 MMOL/L Potassium 3.7 3.5 - 5.1 MMOL/L Chloride 105 98 - 110 MMOL/L Glucose 216 (H) 70 - 100 MG/DL Blood Urea Nitrogen 13 7 - 25 MG/DL Creatinine 0.54 0.4 - 1.00 MG/DL Calcium 8.5 8.5 - 10.6 MG/DL Total Protein 5.4 (L) 6.0 - 8.0 G/DL Total Bilirubin 0.4 0.3 - 1.2 MG/DL Albumin 2.9 (L) 3.5 - 5.0 G/DL Alk Phosphatase 113 (H) 25 - 110 U/L AST (SGOT) 21 7 - 40 U/L CO2 28 21 - 30 MMOL/L ALT (SGPT) 13 7 - 56 U/L Anion Gap 4 3 - 12 eGFR Non >60 >60 mL/min eGFR >60 >60 mL/min MAGNESIUM Collection Time: 04/12/18 5:21 AM Result Value Ref Range Magnesium 1.6 1.6 - 2.6 mg/dL TROPONIN-I Collection Time: 04/12/18 5:21 AM Result Value Ref Range Troponin-I 2.33 (H) 0.0 - 0.05 NG/ML POC GLUCOSE Collection Time: 04/12/18 7:42 AM Result Value Ref Range Glucose, POC 209 (H) 70 - 100 MG/DL PTT (APTT) Collection Time: 04/12/18 8:00 AM Result Value Ref Range APTT 70.3 (H) 21.0 - 39.0 SEC Tele sinus rhythm Kay Parsons MD * Tiana Randolph MD - 04/12/2018 8:28 AM CDT Formatting of this note may be different from the original. General Progress Note Name: Betina Baron Today's Date: 04/12/2018 Admission Date: 04/10/2018 LOS: 1 day Assessment/Plan: Active Problems: Mass of heart Betina Baron is a 48 y.o. female 48 yo F hx of Tobacco Abuse, Uncontrolled DM2, Microcytic Anemia of unknown origin, Methamphetamine Abuse presented to [facility] on the evening of 04/10/18 as a transfer from [facility] in [place], [place] after CTA of the Chest showed a Left Ventricular Mass. Left ventricular mass which is most likely an LV thrombus - Large Filling Defect in the Left Ventricle 3.7x 2.7x 3.7cm visible on CTA Chest at [facility] - CT with contrast 04/12: Left ventricular mass, which may reflect a myxoma, thrombus, or Metastasis. -Echo 04/12 -moderately dilated LV with EF of 15%. Massive large thrombus filling up the majority of the LV apex with large portion of thrombus highly mobile. Global hypokinesis of LV with akinetic segments. CVP greater than 15. PAS P equals 53 -Patient was placed on heparin drip. Will start Coumadin once gynecological procedures determined. -CTS was consulted. No surgical intervention at this time. Recommend continuing current management with anticoagulation. Acute systolic heart failure Dilated cardiomyopathy Elevated troponin -Etiology nonischemic cardiomyopathy from drug use versus ischemic cardiomyopathy versus medical -No coronary calcifications on CT -Troponin trending up -Elevated BNP. Bilateral pleural effusions on imaging. Patient with complaints of orthopnea at this morning. -will need heart cath at some point - possibly today -Started on heart failure therapy with Coreg and lisinopril -Start on ASA and atorvastatin -Start Lasix IV 40 mg twice daily- will titrate up both -Cardiology following Iron deficiency anemia -Likely related to severe vaginal bleeding possibly from large uterine fibroid -Had received 2 units of blood prior to transfer -Continue IV iron -Close monitoring of bleeding while on anticoagulation. Large uterine fibroid -CT showing Ovoid masses in the uterus, most reflective of fibroids. Uterine malignancy is not entirely excluded.Prominence of the bilateral ovaries, greater on the left. - also with fistulous tract near prior pfannenstial incision from C/S -Transvaginal ultrasound pending -BUSINESS PROCESS MANAGER consult. Plan for IUD - will hold on fistulogram at this time until acute issue is adressed. No abscess or fluid collection noted on CT Right lower lobe nodule -Noted on CT. Will need follow-up DM - non compliant with insulin at home - hemoglobin A1c 10 - started with 10 units of lantus. Continue high dose ssi. For now Hx of Methamphetamine Abuse/Benzo Abuse Tobacco Abuse -30 pack year history of smoking and reportedly still smoking 1 ppd -UDS+ at OSH for Methamphetamines and Benzo's -Patient denies any drug use in the past 7 years, but did admit to using methamphetamine 7 years ago. Reports that "she only ever smoked it" and denies IV drug use - counseled on abstinence FEN - no IVF - NPO now for possible cath this afternoon. - monitor and replace electrolytes Prophylaxis - on heparin gtt Code status: Full code Disposition: continue inpatient care. Subjective Betina Baron is a 48 y.o. female. No acute events overnight. Patient reports feeling winded this morning. She she also is not able to lay flat today as opposed to yesterday. She denies any chest pain. She denies feeling dizzy or lightheaded. ROS.denies fever, chills, nausea, vomiting, abdominal pain, vaginal bleeding. Positive positive shortness of breath Medications Scheduled Meds: ascorbic acid (VITAMIN C) tablet 500 mg 500 mg Oral QDAY carvedilol (COREG) tablet 3.125 mg 3.125 mg Oral BID furosemide (LASIX) injection 40 mg 40 mg Intravenous BID(08-14) insulin aspart U-100 (NOVOLOG FLEXPEN) injection PEN 0-28 Units 0-28 Units Subcutaneous ACHS insulin glargine (LANTUS SOLOSTAR, BASAGLAR) injection PEN 10 Units 10 Units Subcutaneous QHS iron sucrose (VENOFER) injection 200 mg 200 mg Intravenous QDAY lisinopril (PRINIVIL, ZESTRIL) tablet 2.5 mg 2.5 mg Oral QDAY vitamins, multi w/minerals tablet 1 tablet 1 tablet Oral QDAY zinc sulfate capsule 220 mg 220 mg Oral QDAY Continuous Infusions: heparin (porcine) 20,000 Units in sodium chloride 0.9% (NS) 500 mL IV infusion (std conc) 1,922 Units/hr (04/12/18 0327) PRN and Respiratory Meds:ondansetron Q8H PRN, oxyCODONE Q4H PRN Objective: Vital Signs: Last Filed Vital Signs: 24 Hour Range BP: 115/69 (04/12 745) Temp: 36.7 C (98.1 F) (04/12 745) Pulse: 91 (04/12 745) Respirations: 20 PER MINUTE (04/12 745) SpO2: 100 % (04/12 745) O2 Delivery: Nasal Cannula (04/12 745) Height: 180.3 cm (71") (04/11 1041) BP: (96-131)/(58-82) Temp: [36.3 C (97.4 F)-37 C (98.6 F)] Pulse: [78-94] Respirations: [18 PER MINUTE-20 PER MINUTE] SpO2: [92 %-100 %] O2 Delivery: Nasal Cannula Intensity Pain Scale 0-10 (Pain 1): 9 (04/11/182014) Vitals: 04/10/18 2225 04/11/18 1041 Weight: 88.1 kg (194 lb 3.6 oz) 88.1 kg (194 lb 3.6 oz) Intake/Output Summary: (Last 24 hours) Intake/Output Summary (Last 24 hours) at 04/12/18 0842 Last data filed at 04/12/18 0551 Gross per 24 hour Intake 1973 ml Output 475 ml Net 1498 ml Stool Occurrence: 0 Physical Exam General: Alert & cooperative, NAD Head: Normocephalic, atraumatic Eyes: Conjunctiva clear. PERRL, EOMI. Neck: Supple, symmetrical, no adenopathy +JVD Lungs: Clear to auscultation with decreased breath sounds in the right lower lung field Heart: RRR, no murmur Abdomen: Soft, fistulous tract left lower quadrant of abdomen. non-tender. Extremities: Extremities normal, atraumatic, no cyanosis or edema Pulses: 2+ and symmetric, all extremities Neuro: No focal deficits. Skin: Multiple excoriations in the back and and Extremities. Lab Review Pertinent labs reviewed Point of Care Testing (Last 24 hours) Glucose: (!) 216 (04/12/18 3821) POC Glucose (Download): (!) 209 (04/12/18 1502) Radiology and other Diagnostics Review: Pertinent radiology reviewed. Tiana Randolph MD Pager [phone] * Joanna Manley RN - 04/12/2018 8:04 AM CDT Patient with c/o of SOA, feeling "out of breath". VSS, O2 at 98% on RA. Placed on 1L NC for comfort. MPF notified via text page. * Noreen Mccullough RN - 04/12/2018 6:28 AM CDT Shift: Night Neuro: A&Ox4 Cardiac: SR c BBB on telemetry, S1 S2 Pulmonary: RA GI/: Voids, last BM 04/08 Nutrition: ADA diet, tolerates well Activity: x2 assist to commode, pt very weak this shift while transferring Pain: PRNs given for complaints of abdominal pain, no complaints of chest pain Family: Visited this shift Follow-up: Will continue to monitor and pass along to oncoming RN * Ivory Townsend RN - 04/12/2018 1:20 AM CDT Labs drawn by IV therapy. Tube labeled at bedside. * Joanna Manley RN - 04/11/2018 6:42 PM CDT Shift: Day Mentation: A&Ox4 Cardiac: S1,S2; SR w/BBB on tele. Denies chest pain Respiratory: RA; breathing non-labored and symmetrical, denies SOA GI/: voids; last BM 04/08 Nutrition: ADA Activity: x1 assist to stand & pivot with gait belt Pain: c/o of abdominal pain; relieved with zofran and eating Skin: dry scabs covering back and buttocks. Moisture/ old incision drainage noted under panus; interdry placed Family: none at bedside throughout the day Hygiene: bath and shower completed Follow up: cardiac MRI this evening, monitor trops, discharge plan ongoing. * Darling Mosley - 04/11/2018 11:51 AM CDT CLINICAL NUTRITION Clinical Nutrition Assessment Summary Nutrition Assessment of Patient: BMI Categories Adult: Over Weight: 25-29.9 Malnutrition Assessment: Does not meet criteria Current Oral Intake: NPO Estimated Calorie Needs: 0545-3022 (25-28 kcal/kg desired adjusted wt of 75.9 kg ) Estimated Protein Needs: 91-114 (1.2-1.5 g/kg per desired adjusted wt of 75.9 kg ) Oral Diet Order: NPO Betina Shaffer a 48 y.o.ykymxd46 yo F hx of Tobacco Abuse, Uncontrolled DM2 , Microcytic Anemia of unknown origin, Methamphetamine Abuse presented to [facility] on the evening of 04/10/18 as a transfer from [facility] in [place], [place] after CTA of the Chest showed a Left Ventricular Mass. RD following due to stage 2 pressure injury on left buttocks. 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 Pt is unsure of usual wt, but thinks it is likely close to ~200#, current wt is 194#, she denies recent wt loss. Noted left BKA. Pt's A1C is 10.5, pt reports that she has been a diabetic for a long time and denied further education. RD left handouts for pt to review. RD will continue to follow. Recommendation: Please encourage protein with meals and provide supplements as needed for poor intakes. Intervention / Plan: Encouraged two protein sources with each meals, discussed protein sources, and discussed protein supplements as needed. Started multivitamin, zinc [id number], and vitamin C to help with wound healing RD will monitor skin integrity, wt, intakes, labs, meds, GI function Nutrition Diagnosis: Nutrition Diagnosis: Increased nutrient needs, specify: (kcal/protein) Etiology: stage 2 left buttocks pressure injury Signs & Symptoms: increased demands for wound healing Goals: Prevent further skin breakdown Time Frame: Throughout Stay Patient to consume >75% of meals/supplements Time Frame: Throughout Stay Darling Mosley RD, LD *[id number] * Noreen Mccullough RN - 04/11/2018 6:11 AM CDT Shift: Night Neuro: A&Ox4 Cardiac: SR c BBB on telemetry, VSS, S1 S2 Pulmonary: RA, non-labored - SOA at times per pt GI/: Voids - has not voided this shift, stratight cath x1 done, last BM 04/08 Nutrition: NPO Activity: x2 assist to commode/wheelchair Pain: Oxycodone given for complaints of abdominal pain Family: Daughter called for update Will continue to monitor and pass along to oncoming RN. * Chencho Ponce, RT - 04/11/2018 5:44 AM CDT Formatting of this note may be different from the original. RESPIRATORY THERAPY ADULT PROTOCOL EVALUATION RESPIRATORY PROTOCOL PLAN Medications Note: If indicated by protocol, medication orders will be placed by therapist. Procedures Vibrating PEP Therapy: Discontinued IPPB: Place a nursing order for "IS Q1h While Awake" for any of Lung Expansion indicators Oxygen/Humidity: O2 to keep SpO2 > 95% Monitoring: PEFR one time;Pulse oximetry BID & PRN PATIENT EVALUATION RESULTS Chart Review * Pulmonary Hx: Smoking cessation < 8 weeks OR still smoking OR > 20 pack/yr hx (PEFR) OR occasional use of bronchodilator (AM) * Surgical Hx: No surgery OR last surgery > 6 weeks ago OR trach/stoma (BA) * Chest X-Ray: Chronic, stable radiographic changes OR abnormal * PFT/Oxygenation: FEV1, PEFR < 60% OR Pa02 < 60 or Sp02 <90% RA OR Fi02 > 0.30 to keep Sp02 >92% OR Sickle Cell Crisis OR Anemia (<10) OR Acute TX (02 & oxim) Patient Assessment * Respiratory Pattern: Regular pattern and rate OR good chest excursion with deep breathing * Breath Sounds: Clear apically, but diminished in bases (LE) OR CHF related crackles (02) (oximetry) * Cough / Sputum: Strong, effective cough OR nonproductive * Mental Status: Alert, oriented, cooperative * Activity Level: Ambulatory with assistance Priority Index Total Points: 8 Points * Priority Index: 1 PRIORITY INDEX GUIDELINES* Priority Points 1 0-9 points 2 9-18 points 3 > 18 points + Pulm Dx or Home Rx *Higher points indicate higher acuity. Therapist: Chencho Ponce, RT Date: 04/11/2018 Rodriguez AC=Airway clearance AM=Aerosolized medication BA=[place] aerosol DB&C=Deep breathe & cough FEV1=Forced expiratory volume in first second) IC=Inspiratory capacity LE=Lung expansion MDI=Metered dose inhaler Neb=Nebulizer O2=Oxygen Oxim=Oximetry PEFR=Peak expiratory flow rate CHIEF ENGINEER RESEARCH=Rapid Response Team * Noreen Mccullough RN - 04/11/2018 3:30 AM CDT Pt with blood sugar of 327. Novolog scheduled to start at 0700. Informed Dr. Cervantes of this. No tx necessary at this time per physician. * Noreen Mccullough RN - 04/11/2018 12:00 AM CDT Patient arrived to room # (*[id number]) via bed accompanied by EMS. Patient transferred to the bed with assistance. Bedside safety checks completed. Initial patient assessment completed, refer to flowsheet for details. Admission skin assessment completed by: She Mccullough RN and Concetta Rodriguez RN Pressure Injury Present on Hospital Admission (within 24 hours): Yes 1. Occiput: No 2. Ear: No 3. Scapula: No 4. Spinous Process: No 5. Shoulder: No 6. Elbow: No 7. Iliac Crest: No 8. Sacrum/Coccyx: Yes 9. Ischial Tuberosity: No 10. Trochanter: No 11. Knee: No 12. Malleolus: No 13. Heel: No 14. Toes: No 15. Assessed for device associated injury Yes 16. Nursing Nutrition Assessment Completed Yes See Doc Flowsheet for additional wound details. INTERVENTIONS: Wound team consulted. Pt has S2 on L buttocks and small blisters all over body. in this encounter H&P Notes * Tiana Randolph MD - 04/11/2018 1:28 AM CDT Formatting of this note may be different from the original. ATTESTATION I personally performed the rodriguez portions of the E/M visit, discussed case with resident and concur with resident documentation of history, physical exam, assessment, and treatment plan unless otherwise noted. CT and echo suggesting thrombus. Getting Cardiac MRI for definitive evaluation. Cardiology, CTS and gynecology evaluated. appreicate assistance. Continue heparin for now. Close monitoring of hemoglobin Staff name: Tiana Randolph MD Date: 04/11/2018 Admission History and Physical Examination Name: Betina Baron Admission Date: 04/10/2018 Assessment/Plan: Active Problems: Mass of heart 1. Left Ventricular Mass/Diffuse Abdominal Pain -Large Filling Defect in the Left Ventricle 3.7x 2.7x 3.7cm visible on CTA Chest at [facility] in [facility]. Scan was ordered for an elevated D-Dimer as well as 2 weeks of progressive SOB. Normal Thoracic Aorta without dissection or aneursym. Moderate to Large b/l pleural effusions. No pericardial effusion. Diffuse interlobar septal thickening. No mediastinal, hilar or axillary lymphadenopathy. Evidence of Anasarca. -BNP elevated to 2811 at OSH. Troponin negative at OSH. EKG Sinus Tachycardia with rate 106 -Urine drug screen from OSH was positive for Methamphetamines as well as benzodiazepines. Patient reports that she stopped using Meth 7 years ago and always smoked it and never used IV injections -Was started on Heparin gtt at OSH -Reports diffuse abdominal pain x 1 week on exam. Moderate-Severe RLQ tenderness on exam, though abdomen is soft, no guarding. On abdominal exam, solid abnormality palpated in the periumbilical area though patient says this is her hernia -Hb 7.7 at OSH, MCV 70 -Patient denies any melena or hematochezia recently and BAO negative for bright red blood or melena (performed with nursing staff in room) -Afebrile, no leukocytosis at OSH Plan: >Ordered CT Chest/Abdomen/Pelvis for [facility] to determine etiology of Cardiac Mass seen at OSH. Additionally, given patient's abnormal abdominal exam as well as history of anemia, want to r/o any masses in the abdomen or other abdominal abnormalities. Patient to have Urine test prior to CT Abdomen/Pelvis as she is not post-menopausal. >Ordered CT Head w/out contrast given that pupils were nonreactive to light on exam >Ordered Cardiology Consult for AM of 04/11/18. Spoke with tobacco sprayer who says to keep patient NPO, order 2D Echocardiogram for AM and continue anticoagulation if no contraindications. Patient has a Hb of 7.7 at OSH and reportedly had a Hb of 5.5 at OSH on April 01 and was given 2 units PRBCs on April 01. No evidence of BRB or Melena on BAO. Platelets at 465 at OSH. Will start Heparin gtt given concern for possible large Left Ventricular thrombus. >Ordered CMP, CBC, Troponin, UA, UCx, Lactate, Urine Drug Screen, BNP, INR, PTT >Daily cbc, cmp, magnesium, phosphorous 2. Microcytic Anemia -Hb 7.7 at OSH, MCV 70 -Reportedly had a Hb of 5.5 on April 01, 2018 and received 2 units PRBCs at that time -Denies any melena, hematochezia or hematemesis -No melena or bright red blood on BAO Plan: >Ordered CBC, Iron Studies, Haptoglobin, Reticulocyte count, LDH, Folate, B12, >Ordered CT Abdomen/Pelvis 3. Hx of Methamphetamine Abuse/Benzo Abuse -UDS+ at OSH for Methamphetamines and Benzo's -Patient denies any drug use in the past 7 years, but did admit to using methamphetamine 7 years ago. Reports that "she only ever smoked it" and denies IV drug use Plan: >Ordered repeat Urine Drug Screen. >Ordered HIV antibodies. Ordered UA, PCXR, BC x 2 >Ordered CPK 4. 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 Restarted EXPERIMENTAL WORKER Levemir 40 units qhs and SS Insulin. Holding EXPERIMENTAL WORKER Metformin 5. Tobacco Abuse -30 pack year history of smoking and reportedly still smoking 1 ppd Plan: >Nicotine patch prn 6. Chronic Pain -On EXPERIMENTAL WORKER [place] for pain of unclear origin Plan: >One time dose Fentanyl for severe abdominal pain and Oxycodone 10mg q4h prn. Code Status: Full Code Allergies: Penicillin and Morphine DVT PPx: Awaiting labs, but will likely restart Heparin gtt for possible LV Thrombus vs Mass Diet: NPO IVF: NS @125cc/hr continuous Lokesh Cervantes DO PGY-1, Med Teaching Service Page [phone] with questions Patient seen and discussed with Senior Resident. __ Primary Care Physician: No primary care provider on file. Chief Complaint: LV Mass vs Thrombus and Diffuse Abdominal Pain History of Present Illness: Betina Baron is a 48 y.o. female 48 yo F hx of Tobacco Abuse, Uncontrolled DM2, Microcytic Anemia of unknown origin, Methamphetamine Abuse presented to [facility] on the evening of 04/10/18 as a transfer from [facility] in [place], [place] after CTA of the Chest showed a Left Ventricular Mass. Patient reports that she began having SOB about 2 weeks ago and that it has gotten progressively worse over the past 2 weeks. Patient reports that it escalated in severity and frequency on the evening of 04/09 such that she felt constantly SOB and this caused her to come to the hospital in [place]. Patient denied any chest pain or palpitations. 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 Patient reports that nothing makes it better and nothing makes it worse. Patient was asked about the effects of food on her pain and she denied that there was any effect on her pain. Patient also reported several episodes of yellow diarrhea over the past week. Patient denied any nausea, vomiting, fevers , hematochezia or melena. Patient was specifically asked about her social history and she reports that she currently still smokes 1 ppd and that she has been smoking 1ppd for about 30 years. Patient also was asked about drug use and reports that she used Methamphetamine 7 years ago, but denies having used since then. Patient also reported that she only ever smoked meth and never used IV Drugs. Patient reports that she lives at home with her ex-. At OSH, patient had an elevated D-Dimer and given the SOB she underwent a CTA Chest which showed concern for LV Thrombus vs LV Mass. Patient also had a positive UDS at OSH for Methamphetamines and Benzos. Patient was also found to have a microcytic anemia and an elevated BNP. 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 Lives at home with ex-boyfriend. Has not worked since she was 18. Has 2 kids ages 31 and 28. Review of Systems: A complete 14 point ROS was conducted on patient and negative for all symptoms except: SOB, Abdominal Pain Physical Exam: Vital Signs: Last Filed In 24 Hours Vital Signs: 24 Hour Range BP: 120/73 (04/10 2225) Temp: 36.8 C (98.2 F) (04/10 2225) Pulse: 91 (04/10 2225) Respirations: 18 PER MINUTE (04/10 2225) SpO2: 96 % (04/10 2225) O2 Delivery: None (Room Air) (04/10 2225) Height: 180.3 cm (71") (04/10 2225) BP: (120)/(73) Temp: [36.8 C (98.2 F)] Pulse: [91] Respirations: [18 PER MINUTE] SpO2: [96 %] O2 Delivery: None (Room Air) Intensity Pain Scale 0-10 (Pain 1): 9 (04/10/182224) General: A&Ox4, Lying in bed and appears comfortable Heent: Despite shining light in eyes several times, pupils not reactive to light b/l, No JVD, Lack of Upper Teeth and Poor Dentition, Dry Mucus Membranes Chest: Mild Tachycardia, No audible murmurs Lungs: Decreased BS bilateral bases Abdomen: Moderate Tenderness in the RLQ and Epigastric Region, solid mass palpated in the periumbilical region, soft, no guarding Rectal: Decreased Rectal Tone, No bright red blood or melena on exam Back: No C-Spine, T-Spine or L-Spine tenderness, Diffuse scabbing on patient's back Extremities: Left BKA, Bilateral 1+ pitting edema of the lower extremities, able to pick both legs up off the ground Skin: Diffuse scabbing on patient's back and buttocks Neuro: Despite numerous light shinings in patient's eyes, pupils not reactive to light, EOMI with horizontal nystagmus, Able to raise eyebrows, blink and smile without any deficits, able to shrug bilateral shoulders, 4/5 bilateral UE strength, 3/5 bilateral LE strength Lab/Radiology/Other Diagnostic Tests: Awaiting Labs and Radiology studies Lokesh Cervantes, DO MOD Attestation/Addendum: - Patient transferred from OSH due to concerns for large Ventricular Mass vs Vegetation vs LV Thrombus PLAN: - Obtain formal ECHO and Heparinize - Formal Cardiology consult - Patient with intermittent AMS. Will obtain CT head w/o Severe GLENNY - Iron stores noted to be significantly depleted on laboratory - Would be a candidate for IV Iron but Hb stable for now. Will defer choice of IV Iron therapy to the day team that will follow throughout her hospital stay - Rectal examination negative for source of bleed Rest of plan as detailed in Dr. Cervantes's note Momo Chakraborty MD Pager [phone] in this encounter Procedure Notes * Cj Whitaker MD - 04/13/2018 10:30 AM CDT Associated Order(s): CARDIAC CATH REPORT Formatting of this note may be different from the original. [facility] CARDIAC CATHETERIZATION REPORT Page 2 BETINA Adhikari : 1970 KU#: [id number] MR #/Billing ID #: [id number] / [id number] DATE: 04/13/2018 PATENT PROSECUTION ATTORNEY: Cj Whitaker MD DICTATING PROVIDER: Cj Whitaker MD REFERRING PHYSICIAN: REFERRAL SELF PROCEDURES: 1. Selective coronary arteriogram. 2. Aortogram. 3. Right heart cardiac catheterization with measurements of right-sided pressures and cardiac output by thermodilution method. INDICATION: Ms. Baron is a 48-year-old patient who was admitted with a large left ventricular apical thrombus. The patient's troponins were elevated. It appears to be a possible non ST elevation myocardial infarction versus demand ischemia. Patient is also noted to have cardiomyopathy with severe left ventricular dysfunction. Procedure was discussed at length with Ms. Baron. The patient's Barbeau test was completely flat. [...] prepped in the usual aseptic technique. A 5-Cymraes sheath was placed into the right common femoral artery under local anesthesia under fluoroscopic examination. An 8-Cymraes sheath was placed in the right common [...] right heart cardiac catheterization by a balloon-tipped Weston -Liza catheter. This was floated via the right femoral venous sheath. Hemodynamic measurements of the right heart were obtained. Cardiac output was measured by thermodilution method. The Weston-Liza catheter was then removed. Sheaths were left [...] AORTOGRAM: Aortogram was obtained in 30 degree LIBYAN projection. The aortogram reveals a single left [...] and continue IV diuresis. Cj Whitaker MD AM/MedQ /[id number] P cc: - REFERRAL SELF MD Cj Santa MD in this encounter Consult Notes * Clemente Sam MD - 04/17/2018 10:46 AM CDT Formatting of this note may be different from the original. Cardiology Progress Note Betina Baron Admission Date: 04/10/2018 LOS: 6 days Assessment/Plan: Active Problems: Mass of heart Acute systolic CHF (congestive heart failure) (HCC) LV (left ventricular) mural thrombus without TX Iron deficiency anemia Polysubstance abuse DM (diabetes mellitus) (HCC) Fibroids IMPRESSIONS: 1) severe left ventricular systolic dysfunction. Her heart failure currently appears compensated. 2) left ventricular thrombus RECOMMENDATIONS: 1) the patient has already diuresed 15 L output in excess of intake since admission. Continue goal directed medical therapy increasing carvedilol and lisinopril as tolerated. Add spironolactone as tolerated. 2) continue therapeutic anticoagulation. __ Subjective: Betina Baron was admitted on 04/10/2018 with dyspnea. Echocardiography has shown severe left ventricular systolic dysfunction with a left ventricular apical thrombus. She reports that she previously underwent left below the knee amputation approximately a year ago and still does not have a prosthesis. Today, the patient states that she feels comfortable and reports no chest discomfort, dyspnea, palpitations, sensation of sustained forceful heart pounding or lightheadedness. Objective: Scheduled Meds: aspirin EC tablet 81 mg 81 mg Oral QDAY atorvastatin (LIPITOR) tablet 80 mg 80 mg Oral QDAY carvedilol (COREG) tablet 6.25 mg 6.25 mg Oral BID furosemide (LASIX) tablet 40 mg 40 mg Oral QDAY insulin aspart U-100 (NOVOLOG FLEXPEN) injection PEN 0-7 Units 0-7 Units Subcutaneous 5 X Day insulin aspart U-100 (NOVOLOG FLEXPEN) injection PEN 7 Units 7 Units Subcutaneous TID w/ meals insulin glargine (LANTUS SOLOSTAR, BASAGLAR) injection PEN 24 Units 24 Units Subcutaneous QHS lisinopril (PRINIVIL, ZESTRIL) tablet 2.5 mg 2.5 mg Oral QDAY nystatin (NYSTOP) topical powder Topical BID senna/docusate (SENOKOT-S) tablet 2 tablet 2 tablet Oral BID spironolactone (ALDACTONE) tablet 25 mg 25 mg Oral BID(9-17) vitamin A & D topical ointment Topical QDAY vitamins, multi w/minerals tablet 1 tablet 1 tablet Oral QDAY warfarin (COUMADIN) tablet 5 mg 5 mg Oral QHS And warfarin, pharmacy to manage 1 each Service Per Pharmacy Continuous Infusions: heparin (porcine) 20,000 Units in dextrose 5% (D5W) 250 mL IV infusion (dbl conc) 2,022 Units/hr (04/17/18 0734) PRN and Respiratory Meds:acetaminophen Q4H PRN, ondansetron Q8H PRN, oxyCODONE Q6H PRN, polyethylene glycol 3350 QDAY PRN Vital Signs: Last Filed Vital Signs: 24 Hour Range BP: 119/62 (04/17 831) Temp: 36.6 C (97.9 F) (04/17 831) Pulse: 79 (04/17 831) Respirations: 18 PER MINUTE (04/17 831) SpO2: 98 % (04/17 831) O2 Delivery: None (Room Air) (04/17 831) BP: (108-119)/(56-62) Temp: [36.5 C (97.7 F)-36.8 C (98.2 F)] Pulse: [78-89] Respirations: [16 PER MINUTE-18 PER MINUTE] SpO2: [93 %-98 %] O2 Delivery: None (Room Air) Intensity Pain Scale 0-10 (Pain 1): (not recorded) Vitals: 04/15/18 0624 04/16/18 0600 04/17/18 0500 Weight: 84.3 kg (185 lb 13.6 oz) 81.5 kg (179 lb 10.8 oz) 79.3 kg (174 lb 13.2 oz) Intake/Output Summary: (Last 24 hours) Intake/Output Summary (Last 24 hours) at 04/17/18 1046 Last data filed at 04/17/18 0830 Gross per 24 hour Intake 1078 ml Output 4050 ml Net -2972 ml Physical Exam: GENERAL: The patient is well developed, well nourished, resting comfortably and in no distress. HEENT: No abnormalities of the visible genevieve-nasopharynx, conjunctiva or sclera are noted. NECK: There is no jugular venous distension. Carotids are palpable and without bruits. There is no thyroid enlargement. Chest: Decreased breath sounds in both lung bases. There are no wheezes or crackles. CV: There is a regular rhythm. The first and second heart sounds are normal. There are no murmurs, gallops or rubs. ABD: The abdomen is soft and supple with normal bowel sounds. There is no hepatosplenomegaly, ascites, tenderness, masses or bruits. Neuro: There are no focal motor defects. Cognitive function appears normal. Ext: There is no edema of the right lower extremity. Left below the knee amputation stump looks good. SKIN: Diffuse scabbing without cellulitis is noted. PSYCH: The patient is calm, rationale and oriented. Laboratory Review: CBC w/Diff Lab Results Component Value Date/Time WBC 6.9 04/17/2018 06:23 AM RBC 3.63 (L) 04/17/2018 06:23 AM HGB 7.7 (L) 04/17/2018 06:23 AM HCT 26.7 (L) 04/17/2018 06:23 AM MCV 73.6 (L) 04/17/2018 06:23 AM MCH 21.3 (L) 04/17/2018 06:23 AM MCHC 28.9 (L) 04/17/2018 06:23 AM RDW >40.0 (H) 04/17/2018 06:23 AM PLTCT 467 (H) 04/17/2018 06:23 AM MPV 8.8 04/17/2018 06:23 AM Lab Results Component Value Date/Time NEUT 61 04/17/2018 06:23 AM ANC 4.20 04/17/2018 06:23 AM LYMA 23 (L) 04/17/2018 06:23 AM ALC 1.60 04/17/2018 06:23 AM SUPRIYA 11 04/17/2018 06:23 AM AMC 0.80 04/17/2018 06:23 AM EOSA 5 04/17/2018 06:23 AM AEC 0.30 04/17/2018 06:23 AM BASA 0 04/17/2018 06:23 AM ABC 0.00 04/17/2018 06:23 AM Comprehensive Metabolic Profile Lab Results Component Value Date/Time NA 137 04/17/2018 06:23 AM K 3.7 04/17/2018 06:23 AM CL 97 (L) 04/17/2018 06:23 AM CO2 35 (H) 04/17/2018 06:23 AM GAP 5 04/17/2018 06:23 AM BUN 14 04/17/2018 06:23 AM CR 0.71 04/17/2018 06:23 AM GLU 187 (H) 04/17/2018 06:23 AM Lab Results Component Value Date/Time CA 8.9 04/17/2018 06:23 AM PO4 3.2 04/11/2018 01:33 AM ALBUMIN 3.0 (L) 04/17/2018 06:23 AM TOTPROT 5.6 (L) 04/17/2018 06:23 AM ALKPHOS 85 04/17/2018 06:23 AM AST 27 04/17/2018 06:23 AM ALT 13 04/17/2018 06:23 AM TOTBILI 0.5 04/17/2018 06:23 AM GFR >60 04/17/2018 06:23 AM GFRAA >60 04/17/2018 06:23 AM Lab Results Component Value Date/Time TNI 1.87 (H) 04/12/2018 04:00 PM TNI 2.02 (H) 04/12/2018 11:13 AM TNI 2.33 (H) 04/12/2018 05:21 AM Cardiographics: Echo Doppler 04/11/2018: 1. Moderately dilated LV with severely reduced [...] pressure PASP=53 mmHg. 7. Small pericardial effusion. Chest X-Ray 04/11/2018: There is cardiomegaly with improvement in mild pulmonary venous congestion. There is improvement in small bilateral pleural effusions and mild bibasilar atelectasis. No pneumothorax. CT 04/11/18: CHEST: 1. Left ventricular mass, which may [...] diffuse body wall edema, compatible with anasarca. Telemetry: Normal sinus rhythm with a heart rate is 75-80 bpm Clemente Sam MD * Sonia Wyman RN - 04/14/2018 4:07 PM CDT Associated Order(s): CONSULT DIABETES NURSE EDUCATOR INPATIENT DIABETES EDUCATION TEAM [facility] Nursing [facility] Reason for Consult: Uncontrolled Hyperglycemia This consult team does not write orders. Primary Team is responsible for placing orders. Met with pt at bedside. Pt was sleeping but was awakened. Introduced self and role. Pt declined education at this time citing that she needs to rest. Pt answered assessment questions at this time. Per pt, she has two working meters. However, pt had told CTS team this admission that "my meters doesn't always work." Pt declined need for new meter and states that it works well. Pt also reported that she gets her insulin from [facility] in [place] without any issues. 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 Unsure of compliance. HgbA1c is 10.5%. Will continue to monitor. Appreciate consult on this patient. If any further needs please consult diabetic nurse educators (Team pager [phone]) Sonia Wyman RN, MSN, CMSRN, CDE Pager: [phone] 08:00-4:30 weekdays, If no response, please call team pager ([phone]) Office: [phone] Diabetic Education Team office ([phone]) * Sade Chung RN - 04/12/2018 11:36 AM CDT Associated Order(s): CONSULT WOUND/OSTOMY TEAM NURSE Formatting of this note may be different from the original. Wound Ostomy Note NAME:Betina Baron :1970 AGE: 48 y.o. ADMISSION DATE: 04/10/2018 DAYS ADMITTED: LOS: 1 day Reason for Consult/Visit: wound not pressure Assessment/Plan: Active Problems: Mass of heart Wounds (NOT for Pressure Injuries) 04/11/18 0000 Left;Right;Lower;Upper Back Blister (Active) 04/11/18 0000 Back Wound Orientation: Left;Right;Lower;Upper Wound Type: Blister Wound Type:: Wound Description (Comments): all over back Agree With My Assessment? Yes 04/12/2018 12:00 AM Wound Base Assessment Dry;Moist;[place];Purple 04/12/2018 11:00 AM Surrounding Skin Assessment Intact 04/12/2018 11:00 AM Wound Site Closure None 04/12/2018 11:00 AM Wound Drainage Amount None 04/12/2018 11:00 AM Wound Dressing Status Open to Air 04/12/2018 11:00 AM Number of days: 1 Wounds (NOT for Pressure Injuries) 04/11/18 0000 Left;Right Buttocks Blister ( Active) 04/11/18 0000 Buttocks Wound Orientation: Left;Right Wound Type: Blister Wound Type:: Wound Description (Comments): blisters all over bilat buttocks Agree With My Assessment? Yes 04/12/2018 12:00 AM Wound Base Assessment Moist;[place] 04/12/2018 11:00 AM Surrounding Skin Assessment Intact 04/12/2018 11:00 AM Wound Site Closure None 04/12/2018 11:00 AM Wound Drainage Amount None 04/12/2018 11:00 AM Wound Dressing Status Open to Air 04/12/2018 11:00 AM Number of days: 1 Wounds (NOT for Pressure Injuries) 04/11/18 0920 Lower Abdomen Moisture Associated Skin Damage (Active) 04/11/18 0920 Abdomen Wound Orientation: Lower Wound Type: Moisture Associated Skin Damage Wound Type:: Wound Description (Comments): Agree With My Assessment? Yes 04/12/2018 12:00 AM Wound Base Assessment Moist;[place];Red 04/12/2018 8:50 AM Surrounding Skin Assessment Excoriated 04/12/2018 8:50 AM Wound Site Closure Open to Air 04/12/2018 8:50 AM Wound Drainage Amount Scant 04/12/2018 8:50 AM Wound Drainage Description Watery;Foul Odor 04/12/2018 8:50 AM Wound Dressing Status Changed 04/12/2018 8:50 AM Wound Dressing and / or Treatment Nystatin;[employer] Textile 04/12/2018 8:50 AM Number of days: 1 Wounds (NOT for Pressure Injuries) 04/12/18 1125 Lower;Medial Abdomen Ulcer ( not from pressure) from old (Active) 04/12/18 1125 Abdomen Wound Orientation: Lower;Medial Wound Type: Ulcer (not from pressure) Wound Type:: from old Wound Description (Comments): Wound Base Assessment Moist;[place] 04/12/2018 11:00 AM Surrounding Skin Assessment Intact 04/12/2018 11:00 AM Wound Site Closure Sutures 04/12/2018 11:00 AM Wound Drainage Amount Moderate 04/12/2018 11:00 AM Wound Drainage Description Foul Odor;Serous 04/12/2018 11:00 AM Wound Dressing Status Changed 04/12/2018 11:00 AM Wound Dressing and / or Treatment Restore Contact Layer;Gauze (4X4) 04/12/2018 11 :00 AM Wound Length (cm) (Wound Team Only) 1 cm 04/12/2018 11:00 AM Wound Width (cm) (Wound Team Only) 1 cm 04/12/2018 11:00 AM Number of days: 0 Pt seen today for multiple sores/blister on her back and buttocks. Pt also has an area on her lower abdomen from a C- section ( about 15 years ago). Area appears to have some hypergranulation tissue around it and no depth to it. Noted to have a black foreign object visible. Pt states it has always been there since her . My thought it is could be a suture. Pt also has a history of methamphetamine used, states it has been over a year, but was positive at an outside hospital prior to admission here. Pt states the blister on her back and buttocks itch all the time and she just used neosproin on then. Multiple areas with different stages of healing. Spoke with OBGYN about possible suture, stated if able try to remove it. Able to pull and one end of the object can loose easily and can out. Other end appears to be under the skin, and attached. Some drainage noted form area on removed but very minimal Spoke to OBGYN who stated they plan to do a full examine on her once the mass in her aorta is stable and a plan is in place. Recommendations: vitamin A and D to blisters,leave open to air Acqucel AG to lower abdomen ulcer cover with 4x4, can use tape of allow fold of skin to hold in place. Change every other day We will continue to follow. Spoke to Primary team about recommendations. Orders placed Thank you Dayana Chung RN, BSN Wound /Ostomy Team Pager [phone] After Hours Wound/Ostomy team pager [phone] * Kay Sabillon MD - 04/11/2018 5:08 PM CDT Associated Order(s): CONSULT CARDIOTHORACIC SURGERY PHYSICIAN Formatting of this note may be different from the original. CTS CONSULT Date of Service: 04/11/2018 Requesting Physician: Taina Randolph MD Consulting Physician: Adan Ordonez MD Consult Performed By: Kay Sabillon MD HPI: Ms. Baron is a 48 y/o F who was transferred to [facility] from [facility] after an ER workup for increasing shortness of breath showed a left ventricular mass. She reports that she has been feeling well until about two weeks ago, when she noticed she was becoming short of breath with activity; in the last few days she reports waking up in the night trying to catch her breath. At [facility] her D-dimer was elevated and a CT chest was obtained showing moderate bilateral effusions and a mass in the left ventricular apex. She was transferred to [facility] for further workup. Echocardiogram was performed showing what is most consistent with a left ventricular thrombus and a severely reduced EF of ~15%; BNP on arrival was >2K. Cardiology was consulted, and a CTS consult was placed to evaluate for surgical intervention. On interview she appears comfortable and is on room air. She denies any recent weight loss, weight gain, fevers, chills, chest pain, nausea, vomiting, diarrhea , constipation or fatigue. She denies any history of asthma or other pulmonary problems but does have a nebulizer at home. Her family history is significant for diabetes in all immediate family members; her mother at age 49 of heart disease. She is diabetic and underwent a BKA secondary to gangrene in her left leg a year ago. She does not check her blood glucose often because " my meter doesn't always work" but says that when she does it is usually in the 400s. She ambulates as best she can with a walker but does not ambulate much. She is a current smoker, 1 ppd x 30 years; she reports a remote history of methamphetamine use, although outside hospital UDS was positive for amphetamines (UDS here was negative except for benzodiazepines). Cardiothoracic consultation has been requested to determine if the patient is a surgical candidate. Cardiac presentation on admission: dyspnea on exertion with subsequent finding of left ventricular thrombus PMH: Diabetes Mellitus (poorly controlled on insulin and oral medication) Past Medical History: Diagnosis Date DM (diabetes mellitus) ([facility]) PSH: x 2, left BKA Medications: ascorbic acid (VITAMIN C) tablet 500 mg 500 mg Oral QDAY carvedilol (COREG) tablet 3.125 mg 3.125 mg Oral BID insulin aspart U-100 (NOVOLOG FLEXPEN) injection PEN 0-28 Units 0-28 Units Subcutaneous ACHS insulin glargine (LANTUS SOLOSTAR, BASAGLAR) injection PEN 10 Units 10 Units Subcutaneous QHS iron sucrose (VENOFER) injection 200 mg 200 mg Intravenous QDAY lisinopril (PRINIVIL, ZESTRIL) tablet 2.5 mg 2.5 mg Oral QDAY vitamins, multi w/minerals tablet 1 tablet 1 tablet Oral QDAY zinc sulfate capsule 220 mg 220 mg Oral QDAY Allergies: Allergies Allergen Reactions Pcn [Penicillins] HIVES, RASH and SHORTNESS OF BREATH Family History: Family History Problem Relation Age of Onset Diabetes Mother Diabetes Sister Diabetes Brother Father: DM Mother: DM, CAD ( at age 49 of heart disease, multiple MIs) Siblings: DM Social History: Social History Social History Marital status: Spouse name: N/A Number of children: N/A Years of education: N/A Social History Main Topics Smoking status: Current Every Day Smoker Packs/day: 1.00 Years: 20.00 Types: Cigarettes Smokeless tobacco: Never Used Alcohol use No Drug use: No Sexual activity: Not on file Other Topics Concern Not on file Social History Narrative No narrative on file ROS: Constitutional: Negative for Fatigue, Weight Change, Fevers Eyes, Ears, Nose And Throat: Negative for Change in vision, Change in Hearing Cardiovascular: Negative for Chest Pain, Palpitations, Swelling in ankles Respiratory: Negative for Cough, wheezing; positive for shortness of breath Gastrointestinal: Negative for Nausea, indigestion, Diarrhea, Constipation, Rectal Bleeding Neurological: Negative for Headache, Memory problems, Numbness, Muscle Weakness Psychological: Negative for depression or anxiety Musculoskeletal: Negative for Pain or Swelling in joints Genitourinary: Negative for Pain with urination, Incontinence of urine, urinary frequency Skin: Negative for any unusual rash Endocrine: Negative for Any hair skin or nail changes, Unusual hunger or thirst Physical Exam: Temp: 36.4 C (97.5 F) (04/11 1628) Pulse: 84 (04/11 1628) Respirations: 18 PER MINUTE (04/11 1628) BP: 111/71 (04/11 1628) GENERAL: A&O x 3, NAD. HEENT Head: Normocephalic Teeth: Present and in good dentition NECK Active ROM: full Trachea: midline HEART Neck Veins- No JVD Carotid Arteries: No bruits Cardiac: RRR; no murmurs/rubs LUNGS Auscultation- breath sounds diminished but clear bilaterally ABDOMEN Soft, nondistended; mild TTP in LUQ/epigastrium, no rebound/guarding EXTREMITIES Edema- 1+ edema LLE Posterior Tibial LLE- 1+ Dorsalis Pedis LLE- 1+ SKIN: Normal, without lesions NEUROLOGIC A&O x 3 Grossly intact Results for orders placed or performed during the hospital encounter of (from the past 24 hour(s)) LACTIC ACID (BG - RAPID LACTATE) Collection Time: 04/11/18 1:20 AM # # Low-High Lactic Acid,BG 1.6 0.5 - 2.0 MMOL/L TROPONIN-I Collection Time: 04/11/18 1:33 AM # # Low-High Troponin-I 0.30 (H) 0.0 - 0.05 NG/ML COMPREHENSIVE METABOLIC PANEL Collection Time: 04/11/18 1:33 AM # # Low-High Sodium 135 (L) 137 - 147 MMOL/L Potassium 3.4 (L) 3.5 - 5.1 MMOL/L Chloride 101 98 - 110 MMOL/L Glucose 359 (H) 70 - 100 MG/DL Blood Urea Nitrogen 9 7 - 25 MG/DL Creatinine 0.50 0.4 - 1.00 MG/DL Calcium 8.7 8.5 - 10.6 MG/DL Total Protein 6.0 6.0 - 8.0 G/DL Total Bilirubin 0.5 0.3 - 1.2 MG/DL Albumin 3.3 (L) 3.5 - 5.0 G/DL Alk Phosphatase 122 (H) 25 - 110 U/L AST (SGOT) 15 7 - 40 U/L CO2 26 21 - 30 MMOL/L ALT (SGPT) 12 7 - 56 U/L Anion Gap 8 3 - 12 eGFR Non >60 >60 mL/min eGFR >60 >60 mL/min HEMOGLOBIN A1C Collection Time: 04/11/18 1:33 AM # # Low-High Hemoglobin A1C 10.5 (H) 4.0 - 6.0 % CBC AND DIFF Collection Time: 04/11/18 1:33 AM # # Low-High White Blood Cells 8.7 4.5 - 11.0 K/UL RBC 3.73 (L) 4.0 - 5.0 M/UL Hemoglobin 7.6 (L) 12.0 - 15.0 GM/DL Hematocrit 25.2 (L) 36 - 45 % MCV 67.5 (L) 80 - 100 FL MCH 20.4 (L) 26 - 34 PG MCHC 30.2 (L) 32.0 - 36.0 G/DL RDW 36.4 (H) 11 - 15 % Platelet Count 515 (H) 150 - 400 K/UL MPV 9.2 7 - 11 FL Neutrophils 67 41 - 77 % Lymphocytes 20 (L) 24 - 44 % Monocytes 10 4 - 12 % Eosinophils 2 0 - 5 % Basophils 1 0 - 2 % Absolute Neutrophil Count 5.90 1.8 - 7.0 K/UL Absolute Lymph Count 1.70 1.0 - 4.8 K/UL Absolute Monocyte Count 0.80 0 - 0.80 K/UL Absolute Eosinophil Count 0.10 0 - 0.45 K/UL Absolute Basophil Count 0.10 0 - 0.20 K/UL IRON + BINDING CAPACITY + %SAT+ FERRITIN Collection Time: 04/11/18 1:33 AM # # Low-High Iron 10 (L) 50 - 160 MCG/DL Iron Binding-TIBC 419 (H) 270 - 380 MCG/DL % Saturation 2 (L) 28 - 42 % Ferritin 5 (L) 10 - 200 NG/ML LDH-LACTATE DEHYDROGENASE Collection Time: 04/11/18 1:33 AM # # Low-High Lactate Dehydrogenase 281 (H) 100 - 210 U/L LIPID PROFILE Collection Time: 04/11/18 1:33 AM # # Low-High Cholesterol 101 <200 MG/DL Triglycerides 85 <150 MG/DL HDL 44 >40 MG/DL LDL 45 <100 MG/DL VLDL 17 MG/DL Non HDL Cholesterol 57 MG/DL MAGNESIUM Collection Time: 04/11/18 1:33 AM # # Low-High Magnesium 1.5 (L) 1.6 - 2.6 mg/dL PHOSPHORUS Collection Time: 04/11/18 1:33 AM # # Low-High Phosphorus 3.2 2.0 - 4.0 MG/DL RETICULOCYTE COUNT Collection Time: 04/11/18 1:33 AM # # Low-High Retic, Uncorrected 3.0 (H) 0.5 - 2.0 % Retic, Corrected 1.8 % Retic, Absolute 111.3 (H) 30 - 94 K/UL VITAMIN B12 Collection Time: 04/11/18 1:33 AM # # Low-High Vitamin B12 643 180 - 914 PG/ML FOLATE, SERUM Collection Time: 04/11/18 1:33 AM # # Low-High Serum Folate 14.8 >3.9 NG/ML CREATINE KINASE-CPK Collection Time: 04/11/18 1:33 AM # # Low-High Creatine Kinase 30 21 - 215 U/L LIPASE Collection Time: 04/11/18 1:33 AM # # Low-High Lipase <3 (L) 11 - 82 U/L PROTIME INR (PT) Collection Time: 04/11/18 1:55 AM # # Low-High INR 1.1 0.8 - 1.2 PTT (APTT) Collection Time: 04/11/18 1:55 AM # # Low-High APTT 25.5 21.0 - 39.0 SEC BNP (B-TYPE NATRIURETIC PEPTI) Collection Time: 04/11/18 1:55 AM # # Low-High B Type Natriuretic Peptide 2,773.0 (H) 0 - 100 PG/ML TSH WITH FREE T4 REFLEX Collection Time: 04/11/18 1:55 AM # # Low-High TSH 4.590 0.35 - 5.00 MCU/ML FIBRINOGEN Collection Time: 04/11/18 1:55 AM # # Low-High Fibrinogen 225 200 - 400 MG/DL HAPTOGLOBIN Collection Time: 04/11/18 1:55 AM # # Low-High Haptoglobin 120 16 - 200 MG/DL HIV-1/2 ANTIGEN/ANTIBODY SCREEN Collection Time: 04/11/18 1:55 AM # # Low-High HIV 1 and 2 AG AB Screen NEG NEG-NEG POC GLUCOSE Collection Time: 04/11/18 3:20 AM # # Low-High Glucose, POC 327 (H) 70 - 100 MG/DL URINALYSIS DIPSTICK Collection Time: 04/11/18 3:50 AM # # Low-High Color,UA YELLOW Turbidity,UA CLEAR CLEAR-CLEAR Specific [place]-Urine >1.050 (H) 1.003 - 1.035 pH,UA 6.0 5.0 - 8.0 Protein,UA 2+ (A) NEG-NEG Glucose,UA 3+ (A) NEG-NEG Ketones,UA NEG NEG-NEG Bilirubin,UA NEG NEG-NEG Blood,UA NEG NEG-NEG Urobilinogen,UA NORMAL NORM-NORMAL Nitrite,UA NEG NEG-NEG Leukocytes,UA NEG NEG-NEG Urine Ascorbic Acid, UA NEG NEG-NEG URINALYSIS, MICROSCOPIC Collection Time: 04/11/18 3:50 AM # # Low-High WBCs,UA 0-2 0 - 2 /HPF RBCs,UA 0-2 0 - 3 /HPF MucousUA TRACE AMPHETAMINES-URINE RANDOM Collection Time: 04/11/18 3:50 AM # # Low-High Amphetamines NEG NEG-NEG BARBITURATES-URINE RANDOM Collection Time: 04/11/18 3:50 AM # # Low-High Barbiturates,Urine NEG NEG-NEG BENZODIAZEPINES-URINE RANDOM Collection Time: 04/11/18 3:50 AM # # Low-High Benzodiazepines POS (A) NEG-NEG CANNABINOIDS-URINE RANDOM Collection Time: 04/11/18 3:50 AM # # Low-High THC NEG NEG-NEG COCAINE-URINE RANDOM Collection Time: 04/11/18 3:50 AM # # Low-High Cocaine-Urine NEG NEG-NEG OPIATES-URINE RANDOM Collection Time: 04/11/18 3:50 AM # # Low-High Opiates-Urine NEG NEG-NEG PHENCYCLIDINES-URINE RANDOM Collection Time: 04/11/18 3:50 AM # # Low-High Phencyclidine (PCP) NEG NEG-NEG TEST-URINE Collection Time: 04/11/18 3:50 AM # # Low-High Urine-HCG NEG Samples with Specific [place] <1.010 may result in a false negative test Specific [place] >1.030 TROPONIN-I Collection Time: 04/11/18 6:00 AM # # Low-High Troponin-I 0.32 (H) 0.0 - 0.05 NG/ML MAGNESIUM Collection Time: 04/11/18 6:00 AM # # Low-High Magnesium 1.6 1.6 - 2.6 mg/dL POC GLUCOSE Collection Time: 04/11/18 7:51 AM # # Low-High Glucose, POC 338 (H) 70 - 100 MG/DL PTT (APTT) Collection Time: 04/11/18 9:06 AM # # Low-High APTT 24.4 21.0 - 39.0 SEC POC GLUCOSE Collection Time: 04/11/18 11:29 AM # # Low-High Glucose, POC 333 (H) 70 - 100 MG/DL TROPONIN-I Collection Time: 04/11/18 12:00 PM # # Low-High Troponin-I 0.33 (H) 0.0 - 0.05 NG/ML BETA-HCG Collection Time: 04/11/18 12:00 PM # # Low-High Beta-HCG,Serum 1 <5 U/L POC GLUCOSE Collection Time: 04/11/18 4:56 PM # # Low-High Glucose, POC 83 70 - 100 MG/DL All pertinent diagnostic studies have been reviewed. Impression: Active Hospital Problems Diagnosis Mass of heart Plan: Ms. Baron is a 48 y/o F with a new diagnosis of LV thrombus and acute systolic heart failure with reduced EF. Currently Ms. Baron remains on a heparin gtt for anticoagulation, and she should continue this. Cardiology is following along as well. Overall she is a poor surgical candidate and would probably benefit from heart failure therapy for symptom management. She does have a history of anemia that may be secondary to fibroids, and a gynecology consult has been placed to evaluate this further; unfortunately she will need long-term anticoagulation, as she is at risk for embolization from her LV thrombus. Discussed with Dr. Ordonez. Kay Sabillon MD Associated attestation - Wil Ordonez MD - 04/11/2018 5:37 PM CDT I reviewed clinical data and TTE with Dr. Sabillon. Patient examined. This woman has severe LV dysfunction and most likely a LV thrombus. There is no surgical option here. She will require anticoagulation, preferably with Coumadin. I discussed this with patient and she understands this recommendation. I personally performed the rodriguez portions of the E/M visit, discussed case with Dr. Sabillon and concur with her documentation of history, physical exam, assessment , and treatment plan unless otherwise noted. AMELIE Ordonez * Aleyda Delvalle MD - 04/11/2018 3:13 PM CDT Associated Order(s): CONSULT KENNEL MANAGER DOG TRACK PHYSCIAN Formatting of this note may be different from the original. Gynecology Consult History and Physical Examination Betina Baron Admission Date: 04/10/2018 Assessment: 48 y.o. [id number] with left ventricular mass and fibroid w/ associated iron deficiency anemia. Plan: TVUS-ordered Concern for fistulous tract near prior pfannenstial incision from C/S-could consider fistulogram with contrast. Pt has not had prior exam or workup for this draining tract despite drainage for >10 years since her C/S. Odor concerning for anaerobic microbe. Tenderness in this area limits pelvic exam. Area red and with evidence of possible yeast infection d/t moisture collection. Consider nystatin powder after further workup of tract. Iron studies already performed-severe GLENNY, not likely related to ACD. MCV low, suggesting GLENNY from chronic blood loss not acute blood loss. Primary team already doing venofer. Agree. S/p 2 units pRBCs w/ Hgb 7.6. Pending TVUS, will consider pelvic exam, pap, EMB and possible Mirena IUD. Will continue to follow and provider recommendations. D/w Dr. Adelia Ace MD PGY-2 Obstetrics and Gynecology Please page the Gynecology pager at [phone] with any questions or concerns. Thank you for allowing us to participate in the care of your patient. I personally observed the resident performing the E/M, discussed case with resident, and concur with resident documentation of history, physical assessment and treatment plan unless otherwise noted. Wound care consult for abdominal wall tract. Await pelvic U/S and will consider EMB if medically stable with possibility of IUD placement at the time of EMB. Aleyda Delvalle MD Reason for Consult: Fibroid and anemia. History of Present Illness: Betina Baron is a 48 y.o. [id number] with menorrhagia Patient difficult to arouse during history. Patient reports that she bleeds 3 weeks out of the month. Can go through a 24 pack of pads in a day. Does have cramping with periods, Midol doesn't help. She has never been told she has fibroids. Has not had a pelvic exam or workup of AUB in >10 years. Has never had an US of the pelvis done, has had heavy periods for as long as she can remember. She is unsure if she has needed transfusions in the past. No menopausal sx. Has had "monthly" periods, is not missing periods. She does report that she has had a painful spot near her C/S incision since she has had her C/S. The fluid that comes out is white-yellow and with foul odor. It has been that way since her C/S. Has never noticed stool. It is always sore and red. She is on [place] at home for pain of unclear origin. Pt did not elaborate more. Review of Systems: Constitutional: Negative for fever, fatigue and unexpected weight change. HENT: Negative for voice change. Respiratory: Pos for SOB. Cardiovascular: Pos for new swelling. Gastrointestinal: Negative for nausea, vomiting, abdominal pain, diarrhea, constipation and blood in stool. Genitourinary: Negative for dysuria, urgency, frequency, hematuria,enuresis, genital sores, vaginal pain. Pos for vaginal bleeding. Sometimes does not notice urge to void. Musculoskeletal: Negative for back pain and arthralgias. Skin: Negative for rash. Neurological: Negative for light-headedness and headaches. Hematological: Negative for adenopathy. Does not bruise/bleed easily. Psychiatric/Behavioral: Negative for confusion. The patient is not nervous/ anxious. 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 Previous meth use-denies recent use. No alcohol use. UPT on admission positive for benzodiazepines, pos for methamphetamines and benzodiazepines at OSH. , stays at home. Allergies: Pcn [penicillins] Medications: No current facility-administered medications on file prior to encounter. No current outpatient prescriptions on file prior to encounter. Physical Exam: Vitals: 04/11/18 0511 04/11/18 0751 04/11/18 1041 04/11/18 1130 BP: 123/68 130/78 131/77 Pulse: 86 97 91 Temp: 36.4 C (97.6 F) 36.5 C (97.7 F) SpO2: 93% 96% Weight: 88.1 kg (194 lb 3.6 oz) Height: 180.3 cm (71") Gen: Distressed, fidgeting, intermittently difficult to arouse CV: RRR, no appreciable murmurs Chest: Unlabored, CTAB Abd: Soft, mild TTP at fundus which is just inferior to umbilicus, periumbilical reducible hernia, 1x1 cm lesion with curled edges and central depression at midline of prior pfannenstiel, moisture collection near this with foul odor. Possible suture noted in this thick warty lesion. Clear discharge expressed. Surrounding area erythematous with evidence of yeast infection. Ext: Above knee amputation on the left SVE: Enlarged mobile uterus, no mass in adnexa, exam limited by tenderness at site of tract Lab/Radiology/Other Diagnostic Tests: 24-hour labs: Results for orders placed or performed during the hospital encounter of (from the past 24 hour(s)) LACTIC ACID (BG - RAPID LACTATE) Collection Time: 04/11/18 1:20 AM Result Value Ref Range Lactic Acid,BG 1.6 0.5 - 2.0 MMOL/L TROPONIN-I Collection Time: 04/11/18 1:33 AM Result Value Ref Range Troponin-I 0.30 (H) 0.0 - 0.05 NG/ML COMPREHENSIVE METABOLIC PANEL Collection Time: 04/11/18 1:33 AM Result Value Ref Range Sodium 135 (L) 137 - 147 MMOL/L Potassium 3.4 (L) 3.5 - 5.1 MMOL/L Chloride 101 98 - 110 MMOL/L Glucose 359 (H) 70 - 100 MG/DL Blood Urea Nitrogen 9 7 - 25 MG/DL Creatinine 0.50 0.4 - 1.00 MG/DL Calcium 8.7 8.5 - 10.6 MG/DL Total Protein 6.0 6.0 - 8.0 G/DL Total Bilirubin 0.5 0.3 - 1.2 MG/DL Albumin 3.3 (L) 3.5 - 5.0 G/DL Alk Phosphatase 122 (H) 25 - 110 U/L AST (SGOT) 15 7 - 40 U/L CO2 26 21 - 30 MMOL/L ALT (SGPT) 12 7 - 56 U/L Anion Gap 8 3 - 12 eGFR Non >60 >60 mL/min eGFR >60 >60 mL/min HEMOGLOBIN A1C Collection Time: 04/11/18 1:33 AM Result Value Ref Range Hemoglobin A1C 10.5 (H) 4.0 - 6.0 % CBC AND DIFF Collection Time: 04/11/18 1:33 AM Result Value Ref Range White Blood Cells 8.7 4.5 - 11.0 K/UL RBC 3.73 (L) 4.0 - 5.0 M/UL Hemoglobin 7.6 (L) 12.0 - 15.0 GM/DL Hematocrit 25.2 (L) 36 - 45 % MCV 67.5 (L) 80 - 100 FL MCH 20.4 (L) 26 - 34 PG MCHC 30.2 (L) 32.0 - 36.0 G/DL RDW 36.4 (H) 11 - 15 % Platelet Count 515 (H) 150 - 400 K/UL MPV 9.2 7 - 11 FL Neutrophils 67 41 - 77 % Lymphocytes 20 (L) 24 - 44 % Monocytes 10 4 - 12 % Eosinophils 2 0 - 5 % Basophils 1 0 - 2 % Absolute Neutrophil Count 5.90 1.8 - 7.0 K/UL Absolute Lymph Count 1.70 1.0 - 4.8 K/UL Absolute Monocyte Count 0.80 0 - 0.80 K/UL Absolute Eosinophil Count 0.10 0 - 0.45 K/UL Absolute Basophil Count 0.10 0 - 0.20 K/UL IRON + BINDING CAPACITY + %SAT+ FERRITIN Collection Time: 04/11/18 1:33 AM Result Value Ref Range Iron 10 (L) 50 - 160 MCG/DL Iron Binding-TIBC 419 (H) 270 - 380 MCG/DL % Saturation 2 (L) 28 - 42 % Ferritin 5 (L) 10 - 200 NG/ML LDH-LACTATE DEHYDROGENASE Collection Time: 04/11/18 1:33 AM Result Value Ref Range Lactate Dehydrogenase 281 (H) 100 - 210 U/L LIPID PROFILE Collection Time: 04/11/18 1:33 AM Result Value Ref Range Cholesterol 101 <200 MG/DL Triglycerides 85 <150 MG/DL HDL 44 >40 MG/DL LDL 45 <100 MG/DL VLDL 17 MG/DL Non HDL Cholesterol 57 MG/DL MAGNESIUM Collection Time: 04/11/18 1:33 AM Result Value Ref Range Magnesium 1.5 (L) 1.6 - 2.6 mg/dL PHOSPHORUS Collection Time: 04/11/18 1:33 AM Result Value Ref Range Phosphorus 3.2 2.0 - 4.0 MG/DL RETICULOCYTE COUNT Collection Time: 04/11/18 1:33 AM Result Value Ref Range Retic, Uncorrected 3.0 (H) 0.5 - 2.0 % Retic, Corrected 1.8 % Retic, Absolute 111.3 (H) 30 - 94 K/UL VITAMIN B12 Collection Time: 04/11/18 1:33 AM Result Value Ref Range Vitamin B12 643 180 - 914 PG/ML FOLATE, SERUM Collection Time: 04/11/18 1:33 AM Result Value Ref Range Serum Folate 14.8 >3.9 NG/ML CREATINE KINASE-CPK Collection Time: 04/11/18 1:33 AM Result Value Ref Range Creatine Kinase 30 21 - 215 U/L LIPASE Collection Time: 04/11/18 1:33 AM Result Value Ref Range Lipase <3 (L) 11 - 82 U/L PROTIME INR (PT) Collection Time: 04/11/18 1:55 AM Result Value Ref Range INR 1.1 0.8 - 1.2 PTT (APTT) Collection Time: 04/11/18 1:55 AM Result Value Ref Range APTT 25.5 21.0 - 39.0 SEC BNP (B-TYPE NATRIURETIC PEPTI) Collection Time: 04/11/18 1:55 AM Result Value Ref Range B Type Natriuretic Peptide 2,773.0 (H) 0 - 100 PG/ML TSH WITH FREE T4 REFLEX Collection Time: 04/11/18 1:55 AM Result Value Ref Range TSH 4.590 0.35 - 5.00 MCU/ML FIBRINOGEN Collection Time: 04/11/18 1:55 AM Result Value Ref Range Fibrinogen 225 200 - 400 MG/DL HAPTOGLOBIN Collection Time: 04/11/18 1:55 AM Result Value Ref Range Haptoglobin 120 16 - 200 MG/DL HIV-1/2 ANTIGEN/ANTIBODY SCREEN Collection Time: 04/11/18 1:55 AM Result Value Ref Range HIV 1 and 2 AG AB Screen NEG NEG-NEG POC GLUCOSE Collection Time: 04/11/18 3:20 AM Result Value Ref Range Glucose, POC 327 (H) 70 - 100 MG/DL URINALYSIS DIPSTICK Collection Time: 04/11/18 3:50 AM Result Value Ref Range Color,UA YELLOW Turbidity,UA CLEAR CLEAR-CLEAR Specific [place]-Urine >1.050 (H) 1.003 - 1.035 pH,UA 6.0 5.0 - 8.0 Protein,UA 2+ (A) NEG-NEG Glucose,UA 3+ (A) NEG-NEG Ketones,UA NEG NEG-NEG Bilirubin,UA NEG NEG-NEG Blood,UA NEG NEG-NEG Urobilinogen,UA NORMAL NORM-NORMAL Nitrite,UA NEG NEG-NEG Leukocytes,UA NEG NEG-NEG Urine Ascorbic Acid, UA NEG NEG-NEG URINALYSIS, MICROSCOPIC Collection Time: 04/11/18 3:50 AM Result Value Ref Range WBCs,UA 0-2 0 - 2 /HPF RBCs,UA 0-2 0 - 3 /HPF MucousUA TRACE AMPHETAMINES-URINE RANDOM Collection Time: 04/11/18 3:50 AM Result Value Ref Range Amphetamines NEG NEG-NEG BARBITURATES-URINE RANDOM Collection Time: 04/11/18 3:50 AM Result Value Ref Range Barbiturates,Urine NEG NEG-NEG BENZODIAZEPINES-URINE RANDOM Collection Time: 04/11/18 3:50 AM Result Value Ref Range Benzodiazepines POS (A) NEG-NEG CANNABINOIDS-URINE RANDOM Collection Time: 04/11/18 3:50 AM Result Value Ref Range THC NEG NEG-NEG COCAINE-URINE RANDOM Collection Time: 04/11/18 3:50 AM Result Value Ref Range Cocaine-Urine NEG NEG-NEG OPIATES-URINE RANDOM Collection Time: 04/11/18 3:50 AM Result Value Ref Range Opiates-Urine NEG NEG-NEG PHENCYCLIDINES-URINE RANDOM Collection Time: 04/11/18 3:50 AM Result Value Ref Range Phencyclidine (PCP) NEG NEG-NEG TEST-URINE Collection Time: 04/11/18 3:50 AM Result Value Ref Range Urine-HCG NEG Samples with Specific [place] <1.010 may result in a false negative test Specific [place] >1.030 TROPONIN-I Collection Time: 04/11/18 6:00 AM Result Value Ref Range Troponin-I 0.32 (H) 0.0 - 0.05 NG/ML MAGNESIUM Collection Time: 04/11/18 6:00 AM Result Value Ref Range Magnesium 1.6 1.6 - 2.6 mg/dL POC GLUCOSE Collection Time: 04/11/18 7:51 AM Result Value Ref Range Glucose, POC 338 (H) 70 - 100 MG/DL PTT (APTT) Collection Time: 04/11/18 9:06 AM Result Value Ref Range APTT 24.4 21.0 - 39.0 SEC POC GLUCOSE Collection Time: 04/11/18 11:29 AM Result Value Ref Range Glucose, POC 333 (H) 70 - 100 MG/DL TROPONIN-I Collection Time: 04/11/18 12:00 PM Result Value Ref Range Troponin-I 0.33 (H) 0.0 - 0.05 NG/ML BETA-HCG Collection Time: 04/11/18 12:00 PM Result Value Ref Range Beta-HCG,Serum 1 <5 U/L Point of Care Testing: Glucose: (!) 359 (04/11/18 0133) POC Glucose (Download): (!) 333 (04/11/18 1129) * Kay Parsons MD - 04/11/2018 8:42 AM CDT Associated Order(s): CONSULT CARDIOLOGY PHYSICIAN Formatting of this note may be different from the original. Subjective: Patient is a 48 y.o. female with a PMH of uncontrolled DM, methamphetamine use in the past, benzodiazepine use who presented to [facility] with progressive dyspnea and bilateral pleural effusions. DDimer was elevated, so patient was sent for CTA of chest and was found to have a large >3 cm mass in the left ventricle, near the apex. On review of CT and echo images, this appears to be an LV apical thrombus. Echocardiogram today showed a LVEF of 15% with diffuse hypokinesis with a large left ventricular thrombus. No coronary calcification was noted on CT images. She said her mother at an early age of heart disease. She was not aware of which type but thought that her mother also had reduced heart function. Betina started to feel more symptoms of dyspnea and exercise intolerance over the last couple of weeks. SHe denies any syncope or presyncope. She denies any palpitations, or chest discomfort. She smokes cigarettes, does not use etoh. SHe denies any recent cocaine or methamphetamine use. Last methamphetamine use was years ago. Patient Active Problem List Diagnosis Date Noted Mass of heart 04/11/2018 No primary care provider on file. No past medical history on file. No past surgical history on file. Allergies Allergen Reactions Pcn [Penicillins] HIVES, RASH and SHORTNESS OF BREATH No family history on file. No current facility-administered medications on file prior to encounter. No current outpatient prescriptions on file prior to encounter. Review of Symptoms: A comprehensive review of systems was negative except for: Respiratory: positive for increased work of breathing Subjective: Physical Exam Vitals: 04/11/18 0751 BP: 123/68 Pulse: 97 Temp: 36.4 C (97.6 F) SpO2: 93% Ge: awake, alert, no acute distress Neck: Supple, symmetrical, trachea midline, no adenopathy, thyroid: no enlargement/tenderness/nodules, no carotid bruit and + JVD Lungs: Clear to auscultation bilaterally Chest wall: No tenderness or deformity. Heart: Regular rate and rhythm, S1, S2 normal, no murmur, click rub or gallop Abd: right upper quadrant tenderness Extremities: Extremities normal, atraumatic, no cyanosis or edema Pulses: 2+ and symmetric, all extremities, left BKA Skin: Skin color, texture, turgor normal. No rashes or lesions Psych: Appropriate affect, alert and oriented to person, place and time Cardiographics Tele reviewed. Sinus rhythm rates in 90s. No results found for any previous visit. Assessment: 1. Acute heart failure with suspected LV apical thrombus 2. Uncontrolled DM 3. History of polysubstance abuse 4. Noncompliance. 5. Severe microcytic anemia due to uterine fibroid Plan: Agree with heparin gtt, monitor hemoglobin closely. She has severe cardiomyopathy with LV apical thrombus. Will order cardiac MRI to confirm thrombus and to rule out inflammatory cardiomyopathy. On review of CT, I think this is most likely an apical thrombus. Start coreg and lisinopril. She has a massive thrombus with embolic complications. Treatment with heparin will help with reduction of thrombus burden but will not prevent recurrent embolic events. Treatment options include LVAD with thrombectomy. Will consult CTS. She will need engine oiler consult for treatment of her fibroid causing severe anemia. I would hope that endometrial ablation or uterine artery embolization are options as she is obviously high surgical risk at this point. in this encounter Miscellaneous Notes * Case Mgmt DC Plan - Nicho Munozenzie - 04/18/2018 12:16 PM CDT Formatting of this note may be different from the original. Case Management Progress Note NAME:Betina Baron :1969 AGE: 48 y.o. ADMISSION DATE: 04/10/2018 DAYS ADMITTED: LOS: 7 days Todays Date: 04/18/2018 Plan Discharge to home today; SW to provide med voucher. Interventions ? Support Support: Pt/Family Updates re:POC or DC Plan ? Info or Referral ? Discharge Planning Discharge Planning: Other (medication assistance) ? Medication Needs Medication Needs: Prescription Assistance Program, Medication Voucher SW reviewed discharge medications. Completed medication voucher and patient assistance application. Notified ordnance technician of voucher in COUNTS INCLUDE 234 BEDS AT THE [facility] pharmacy. She will update pt. Summary of work with pt regarding plan for obtaining medications moving forward (pt assets/barriers/community resources provided): Pt follows at [facility] in [place], [place]. They provide vouchers to obtain her diabetes supplies. SW submitted voucher for the following meds: lipitor 80mg #30 - $11.92 nystatin powder 100,000 - $14.94 TOTAL: $26.86 LUIS unable to assist with the following meds ($4.99/OTC/narcotic): aspirin, multi vitamins - OTC lovenox - NCM set up up with assistance program coreg, lasix, lisinopril, provera, aldactone, warfarin - $4.99 oxycodone - narcotic ? Financial Financial: Financial Counseling Referral/Follow-up ? Legal ? Other Disposition ? Expected Discharge Date Expected Discharge Date: 04/18/18 ? Transportation Does the patient need discharge transport arranged?: No Transportation Name, Phone and Availability #1: Robby Baron, ex- Does the patient use Medicaid Transportation?: No ? Next Level of Care (Acute Psych discharges only) ? Discharge Disposition Durable Medical Equipment No service has been selected for the patient. Destination No service has been selected for the patient. Home Care No service has been selected for the patient. [facility] No service has been selected for the patient. Roslyn Munoz [facility] *[id number] * Case Mgmt DC Plan - Gin Aldana RN - 04/18/2018 9:55 AM CDT Formatting of this note may be different from the original. Case Management Progress Note NAME:Betina Baron :1969 AGE: 48 y.o. ADMISSION DATE: 04/10/2018 DAYS ADMITTED: LOS: 7 days Todays Date: 04/18/2018 Plan Ongoing discharge planning Interventions ? Support Support: Pt/Family Updates re:POC or DC Plan ? Info or Referral ? Discharge Planning Discharge Planning: Other (medication assistance) JOSE GUADALUPE spoke with Claudia mediation interior design coordinator, she states that Lovenox 80mg BID for 7 days ( 14 syringes) is ready for pt in [facility]. Pt will just stop there on discharge with script and parts picker medication. HILDAM notified pt of above information. ? Medication Needs ? Financial Financial: Financial Counseling Referral/Follow-up ? Legal ? Other Disposition ? Expected Discharge Date Expected Discharge Date: 04/19/18 ? Transportation Does the patient need discharge transport arranged?: No Transportation Name, Phone and Availability #1: Robby Baron, ex- Does the patient use Medicaid Transportation?: No ? Next Level of Care (Acute Psych discharges only) ? Discharge Disposition Durable Medical Equipment No service has been selected for the patient. Destination No service has been selected for the patient. Home Care No service has been selected for the patient. Dialysis/Infusion No service has been selected for the patient. FATEMEH Teague, public address technician [phone] * Case Mgmt DC Plan - Gin Aldana RN - 04/17/2018 3:21 PM CDT Formatting of this note may be different from the original. Case Management Progress Note NAME:Betina Baron :1969 AGE: 48 y.o. ADMISSION DATE: 04/10/2018 DAYS ADMITTED: LOS: 6 days Todays Date: 04/17/2018 Plan Ongoing discharge planning Interventions ? Support Support: Pt/Family Updates re:POC or DC Plan ? Info or Referral ? Discharge Planning Discharge Planning: Other (medication assistance) Medication assistance form completed by [facility] and patient (pt also signed application) for Lovenox 80mg BID for 7 days. [facility] faxed application for medication assistance to Shelia Villeda at [phone]. ? Medication Needs ? Financial Financial: Financial Counseling Referral/Follow-up ? Legal ? Other Disposition ? Expected Discharge Date Expected Discharge Date: 04/19/18 ? Transportation Does the patient need discharge transport arranged?: No Transportation Name, Phone and Availability #1: Robby Baron, ex- Does the patient use Medicaid Transportation?: No ? Next Level of Care (Acute Psych discharges only) ? Discharge Disposition Durable Medical Equipment No service has been selected for the patient. [facility] Dest[facility] No service has been selected for the patient. Home Care No service has been selected for the patient. [facility] No service has been selected for the patient. FATEMEH Teague, public address technician [phone] * Critical Results - Nichelle Bloom RN - 04/17/2018 12:28 AM CDT Patient with PTT of greater than 200; infusion paused. Following protocol. * Procedures (Immed Post or Bedside) - Aleyda Delvalle MD - 04/14/2018 11:42 AM CDT Procedure Note - EMB Date: 04/14/18 Preop Dx: AUB Postop Dx: Same Procedure: Endometrial biopsy Informed and written consent was obtained and all questions answered. Risks reviewed include: cramping, bleeding A negative urine HCG was confirmed prior to start of procedure. A bimanual exam revealed normal size and position of the uterus. A speculum was placed and the cervix visualized. Pap smear was obtained. Betadine prep was applied to the cervix. A single-tooth tenaculum was placed at 12 o'clock on the cervix. The uterus was sounded to 8 cm in a sterile fashion. Adequate tissue was obtained in 2 passes. The tenaculum was then removed from the cervix. The patient tolerated the procedure well, and was monitored for approximately 5 minutes post-procedure for any complications. Attending Surgeon: MD Adelia Supervisor Dairy Sanitation(s): MD Jeanie Ace MD Findings: Normal appearing cervix, enlarged uterus Anesthesia: None Estimated Blood Loss: Minimal Specimen(s) Removed/Disposition: EMB Pap also obtained at same time Complications: None Disposition: To pt room Dr. Delvalle was present for the entire procedure. Estela Ace MD I performed this procedure with a resident and I was present for the entire procedure. Aleyda Delvalle MD * Critical Results - Ofe Kulkarni RN - 04/14/2018 11:27 AM CDT Critical result or procedure called (document test and value, and read back): APTT 182.1 Time MD/REGIONAL EDUCATION MANAGER Notified: MD not notified. Following Heparin protocol. Gtt paused for 90 mins. * Case Mgmt DC Plan - Roslyn Munoz - 04/14/2018 9:49 AM CDT Formatting of this note may be different from the original. Case Management Progress Note NAME:Betina Baron :1969 AGE: 48 y.o. ADMISSION DATE: 04/10/2018 DAYS ADMITTED: LOS: 3 days Todays Date: 04/14/2018 Plan Discharge planning ongoing; PT/OT currently recommending inpatient setting , however, pt is uninsured. Pt likely will discharge to home when able. Interventions ? Support Support: Pt/Family Updates re:POC or DC Plan ? Info or Referral ? Discharge Planning Discharge Planning: Other SW reviewed EMR. PT/OT recommending inpatient setting placement for pt at discharge. Pt is uninsured at this time, therefore, placement likely is not an option unless pt pays out of pocket. SW discussed with team - pt currently does not have LTD. Team to update SW if this changes. Pt follows at [facility] in [place], [place]. Her PCP assist with vouchers for her medications. SW to continue to follow for discharge planning. ? Medication Needs ? Financial Financial: Financial Counseling Referral/Follow-up ? Legal ? Other Disposition ? Expected Discharge Date Expected Discharge Date: 04/17/18 ? Transportation Does the patient need discharge transport arranged?: No Transportation Name, Phone and Availability #1: Robby Baron, ex- Does the patient use Medicaid Transportation?: No ? Next Level of Care (Acute Psych discharges only) ? Discharge Disposition Durable Medical Equipment No service has been selected for the patient. [facility] Dest[facility] No service has been selected for the patient. [facility] Home Care No service has been selected for the patient. [facility] No service has been selected for the patient. Roslyn Munoz, [facility] *[id number] * Case Mgmt DC Plan - Gin Aldana RN - 04/13/2018 2:17 PM CDT Formatting of this note may be different from the original. Case Management Progress Note NAME:Betina Baron :1969 AGE: 48 y.o. ADMISSION DATE: 04/10/2018 DAYS ADMITTED: LOS: 2 days Todays Date: 04/13/2018 Plan Ongoing discharge planning Interventions ? Support Support: Pt/Family Updates re:POC or DC Plan ? Info or Referral ? Discharge Planning Discharge Planning: Other [facility] called [facility], , in [place], [place] to verify if pt can have INR drawn here if she is discharged on coumadin. Spoke to Rosamaria in billing and she states pt can have INR drawn and the pt has already filled out financial form (although will need to be done again as pts is getting ready to ) and it will cost her $15 per visit per her financial status. ? Medication Needs ? Financial Financial: Financial Counseling Referral/Follow-up ? Legal ? Other Disposition ? Expected Discharge Date Expected Discharge Date: 04/17/18 ? Transportation Does the patient need discharge transport arranged?: No Transportation Name, Phone and Availability #1: Robby Baron, ex- Does the patient use Medicaid Transportation?: No ? Next Level of Care (Acute Psych discharges only) ? Discharge Disposition Durable Medical Equipment No service has been selected for the patient. Destination No service has been selected for the patient. Home Care No service has been selected for the patient. Dialysis/Infusion No service has been selected for the patient. FATEMEH Teague, public address technician [phone] * Critical Results - Vy Gregorio RN - 04/12/2018 11:26 PM CDT Critical result or procedure called (document test and value, and read back): ptt 134.3 Time MD/REGIONAL EDUCATION MANAGER Notified: CLAUDIO MD/REGIONAL EDUCATION MANAGER Name: CLAUDIO MD/REGIONAL EDUCATION MANAGER Response/Orders Given: Followed Hep protocol * Case Mgmt DC Plan - Gin Aldana RN - 04/11/2018 12:40 PM CDT Case Management Admission Assessment NAME:Betina Baron :1969 AGE: 48 y.o. ADMISSION DATE: 04/10/2018 DAYS ADMITTED: LOS: 0 days Todays Date: 04/11/2018 Source of Information: Patient Plan Plan: CM Assessment, Assist PRN with SW/NCM Services, Discharge Planning for Home Anticipated NCM at bedside, introduced self and role of CM. 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 Pt has 2 steps to get into home, she states that she crawls up these steps due to BKA. Pt lives at home and is supported by ex-. Pt states that her PCP helps her get her DM medication with vouchers. She sees physician, Dr. Cardenas, at [facility] in [place], [place], phone number [phone]. Pt verbalized that she has received treatment in past for Methamphetamine Abuse, however, she does not wish to seek treatment or be given resources at this time. Pt gets prescriptions filled at [facility] in [place], [place]. Patient Address/Phone [address] [place] [phone] (home) Emergency Contact Extended Emergency Contact Information Primary Emergency Contact: Robby Baron [facility] Relation: Spouse Secondary Emergency Contact: Margie Baron [facility] Relation: Daughter Healthcare Directive Healthcare Directive: No, patient does not have a healthcare directive Would patient like to fill out a (a new) Healthcare Directive?: No, patient declined Psych Advance Directive (Psych unit only): No, patient does not have a Psych Advance Directive Transportation Does the patient need discharge transport arranged?: No Transportation Name, Phone and Availability #1: Robby Baron, ex- Does the patient use Medicaid Transportation?: No Expected Discharge Date Expected Discharge Date: 04/17/18 Living Situation Prior to Admission ? Living Arrangements Type of Residence: Home, independent Living Arrangements: Other (Comment) (ex-) Bathroom Shower / Tub: Tub/Shower Unit How many levels in the residence?: 1 Can patient live on one level if needed?: Yes Does residence have entry and/or side stairs?: Yes (2 steps into home.) Assistance needed prior to admit or anticipated on discharge: No Who provides assistance or could if needed?: family, ex- Are they in good health?: Unknown Can support system provide 24/7 care if needed?: Maybe ? Level of Function Prior level of function: Independent ? Cognitive Abilities Cognitive Abilities: Alert and Oriented Financial Resources ? Coverage Primary Insurance: Medicaid Pending Secondary Insurance: No insurance Additional Coverage: None ? Source of Income Source Of Income: Unemployed ? Financial Assistance Needed? Psychosocial Needs ? Mental Health Mental Health History: No ? Substance Use History Substance Use History Screen: Yes Comment: Pt has history and current use of Methamphetamine Abuse. Pt states she has had treatment in the past in [place], [place] ? Other Current/Previous Services ? PCP No primary care provider on file., None, None ? Pharmacy [facility][id number] [place], [place] - [address] [facility] [facility] [address] [facility] [place] [id number] ? Durable Medical Equipment Durable Medical Equipment at home: Wheelchair (manual) ? Home Health Receiving home health: In the past Agency name: Pt does not know, states company was out of [place], [place] ? Hemodialysis or Peritoneal Dialysis Undergoing hemodialysis or peritoneal dialysis: No ? Tube/Enteral Feeds Receive tube/enteral feeds: No ? Infusion Receive infusions: No ? Private Duty Private duty help used: No ? Home and Community Based Services Home and community based services: No ? Dain Sena: N/A ? Hospice Hospice: No ? Outpatient Therapy PT: No OT: No MECHANICAL OPERATOR: No ? [facility] Facility/[facility] SNF: No NH: No ? Inpatient Rehab IPR: No ? Long-Term Acute Care Hospital LTACH: No ? Acute Hospital Stay Acute Hospital Stay: In the past Was patient's stay within the last 30 days?: No ZEB Teague [phone] * Case Mgmt DC Plan - Roslyn Munoz - 04/11/2018 12:28 PM CDT Formatting of this note may be different from the original. Case Management Progress Note NAME:Betina Baron :1969 AGE: 48 y.o. ADMISSION DATE: 04/10/2018 DAYS ADMITTED: LOS: 0 days Todays Date: 04/11/2018 Plan Anticipate discharge to home when medically stable. Interventions ? Support Support: Pt/Family Updates re:POC or DC Plan SW met with pt at bedside to discuss resources. ? Info or Referral ? Discharge Planning Discharge Planning: Transportation Arrangements and/or Resources SW [facility] and reviewed EMR. SW met with pt at bedside to discuss resources. Pt denies any concerns with MH - pt declines need for MH resources. Pt also adamantly denies using any drugs or alcohol currently. She says that she used to use meth 9 years ago. Pt denies need for any substance use resources. ? Medication Needs ? Financial Financial: Financial Counseling Referral/Follow-up SW received call from financial counselors inquiring if pt has LTD. Pt is currently uninsured. SW discussed with team in huddle. At this time there is not a LTD as team continues work up. If status changes, SW to update FC. ? Legal ? Other Disposition ? Expected Discharge Date Expected Discharge Date: 04/17/18 ? Transportation Does the patient need discharge transport arranged?: No Transportation Name, Phone and Availability #1: Robby Baron, ex- Does the patient use Medicaid Transportation?: No ? Next Level of Care (Acute Psych discharges only) ? Discharge Disposition Durable Medical Equipment No service has been selected for the patient. Destination No service has been selected for the patient. Home Care No service has been selected for the patient. Dialysis/Infusion No service has been selected for the patient. Roslyn Munoz [facility] *3411 * Care Coordination-Inpatient - Yani Tomlinson MD - 04/10/2018 9:41 PM CDT Formatting of this note may be different from the original. Internal Medicine [facility] Transfer Center Acceptance Note I was paged this evening by Julia from the Transfer Center Triage team regarding Ms Baron. She presented to [facility] ED this afternoon with dyspnea. She apparently is seen fairly often in that facility for DM, anemia of unknown cause and other ailments. Labs showed elevated D-Dimer, CTA was done that showed a 3.5 cm mass in the left ventricle--either tumor v thrombus. She does have anemia--last week Hb 5.5 and had 2 units of blood with Hb 7.7 today, there is no obvious source of bleeding and bilirubin/LDH were not known in event had hemolysis from the cardiac lesion. Regardless, heparin drip was being initiated. The Cardiology service at was made aware of Ms Baron and suggested IM admission with cardiology consultation as well as an echocardiogram with contrast in the morning. She was hemodynamically stable per report. She was accepted to telemetry with a team to be assigned based on census and geography considerations. The in house evening team was notified of the case facts that I know. Yani Tomlinson M.D. Internal Medicine, Hospitalist Date: 04/10/[phone] in this encounter Plan of Treatment Name Priority Associated Diagnoses Order Schedule ECG 12-LEAD Routine ONE TIME for 1 Occurrences starting 04/11/2018 until 04/11/2018 PROTIME INR (PT) Routine Abnormal uterine bleeding Expected: 04/20/2018 Acute systolic CHF (Approximate), Expires: (congestive heart 04/18/2019 failure) (HCC) LV (left ventricular) mural thrombus without TX Mass of heart Iron deficiency anemia due to chronic blood loss Polysubstance abuse Type 2 diabetes mellitus with hyperglycemia, with long-term current use of insulin (HCC) Intramural and submucous leiomyoma of uterus Hypotension, unspecified hypotension type Bradycardia as of this encounter Procedures Procedure Name Priority Date/Time Associated Diagnosis [...] THERAPY TEAM Routine 04/12/2018 12:42 AM CDT in this encounter Results * PROCEDURE RECORD-SCAN (04/19/2018 3:06 PM) Narrative Ordered by an unspecified provider. * TELEMETRY STRIPS-SCAN (04/19/2018 2:18 PM) Narrative Ordered by an unspecified provider. * ECG-SCAN (04/19/2018 2:17 PM) Narrative Ordered by an unspecified provider. * POC GLUCOSE (04/18/2018 5:07 PM) Component Value Ref Range Glucose, POC 244 (H) 70 - 100 MG/DL Specimen Performing Laboratory [facility] [address] [place] [id number] * POC GLUCOSE (04/18/2018 11:49 AM) Component Value Ref Range Glucose, POC 126 (H) 70 - 100 MG/DL Specimen Performing Laboratory [facility] [address] [place] [address] * POC GLUCOSE (04/18/2018 8:39 AM) Component Value Ref Range Glucose, POC 263 (H) 70 - 100 MG/DL Specimen Performing Laboratory MAIN LAB [address] [place], [place] [id number] * MAGNESIUM (04/18/2018 5:11 AM) Component Value Ref Range Magnesium 1.7 1.6 - 2.6 mg/dL Specimen Performing Laboratory Blood MAIN LAB [address] [place] [address] * COMPREHENSIVE METABOLIC PANEL (04/18/2018 5:11 AM) Component Value Ref Range Sodium 135 (L) [...] Pharmacist for questions. Specimen Performing Laboratory Blood MAIN LAB [address] [place], [place] [id number] * CBC AND DIFF (04/18/2018 5:11 AM) Component Value Ref Range White Blood Cells [...] - 0.20 K/UL Specimen Performing Laboratory Blood [facility] [address] [place] [address] * PROTIME INR (PT) (04/18/2018 5:11 AM) Component Value Ref Range INR 1.2 0.8 - 1.2 Specimen Performing Laboratory Blood [facility] [address] [place] [address] * POC GLUCOSE (04/18/2018 3:33 AM) Component Value Ref Range Glucose, POC 245 (H) 70 - 100 MG/DL Specimen Performing Laboratory [facility] [address] [place] [address] * POC GLUCOSE (04/17/2018 9:16 PM) Component Value Ref Range Glucose, POC 180 (H) 70 - 100 MG/DL Specimen Performing Laboratory [facility] [address] [place] [address] * POC GLUCOSE (04/17/2018 4:18 PM) Component Value Ref Range Glucose, POC 172 (H) 70 - 100 MG/DL Specimen Performing Laboratory [facility] [address] [place] [address] * POC GLUCOSE (04/17/2018 12:12 PM) Component Value Ref Range Glucose, POC 170 (H) 70 - 100 MG/DL Specimen Performing Laboratory [facility] [address] [place] [address] * POC GLUCOSE (04/17/2018 8:31 AM) Component Value Ref Range Glucose, POC 206 (H) 70 - 100 MG/DL Specimen Performing Laboratory [facility] [address] [place] [address] * PTT (APTT) (04/17/2018 8:30 AM) Component Value Ref Range APTT 81.1 (H) 21.0 - 39.0 SEC Specimen Performing Laboratory Blood [facility]IN [facility] [address] [place] [address] * MAGNESIUM (04/17/2018 6:23 AM) Component Value Ref Range Magnesium 1.6 1.6 - 2.6 mg/dL Specimen Performing Laboratory Blood [facility]IN [facility] [address] [place] [address] * COMPREHENSIVE METABOLIC PANEL (04/17/2018 6:23 AM) Component Value Ref Range Sodium 137 137 - 147 MMOL/L Potassium 3.7 3.5 - 5.1 MMOL/L Chloride 97 (L) 98 - 110 MMOL/L Glucose 187 (H) 70 - 100 MG/DL Blood Urea Nitrogen 14 7 - 25 MG/DL Creatinine 0.71 0.4 - 1.00 MG/DL Calcium 8.9 8.5 - 10.6 MG/DL Total Protein 5.6 (L) 6.0 - 8.0 G/DL Total Bilirubin 0.5 0.3 - 1.2 MG/DL Albumin 3.0 (L) 3.5 - 5.0 G/DL Alk Phosphatase 85 25 - 110 U/L AST (SGOT) 27 7 - 40 U/L CO2 35 (H) 21 - 30 MMOL/L ALT (SGPT) 13 7 - 56 U/L Anion Gap 5 [...] Pharmacist for questions. Specimen Performing Laboratory Blood MAIN LAB [address] [place] [address] * CBC AND DIFF (04/17/2018 6:23 AM) Component Value Ref Range White Blood Cells 6.9 4.5 - 11.0 K/UL RBC 3.63 (L) 4.0 - 5.0 M/UL Hemoglobin 7.7 (L) 12.0 - 15.0 GM/DL Hematocrit 26.7 (L) 36 - 45 % MCV 73.6 (L) 80 - 100 FL MCH 21.3 (L) 26 - 34 PG MCHC 28.9 (L) 32.0 - 36.0 G/DL RDW >40.0 (H) 11 - 15 % Platelet Count 467 (H) 150 - 400 K/UL MPV 8.8 7 - 11 FL Neutrophils 61 41 - 77 % Lymphocytes 23 (L) 24 - 44 % Monocytes 11 4 - 12 % Eosinophils 5 0 - 5 % Basophils 0 0 - 2 % Absolute Neutrophil Count 4.20 1.8 - 7.0 K/UL Absolute Lymph Count 1.60 1.0 - 4.8 K/UL Absolute Monocyte Count 0.80 0 - 0.80 K/UL Absolute Eosinophil Count 0.30 0 - 0.45 K/UL Absolute Basophil Count 0.00 0 - 0.20 K/UL Specimen Performing Laboratory Blood [facility] [address] [place] [address] * PROTIME INR (PT) (04/17/2018 6:23 AM) Component Value Ref Range INR 1.2 0.8 - 1.2 Specimen Performing Laboratory Blood [facility] [address] [place] [address] * POC GLUCOSE (04/17/2018 3:18 AM) Component Value Ref Range Glucose, POC 175 (H) 70 - 100 MG/DL Specimen Performing Laboratory [facility] [address] [place] [address] * PTT (APTT) (04/17/2018 2:00 AM) Component Value Ref Range APTT 32.3 21.0 - 39.0 SEC Specimen Performing Laboratory Blood [facility] [address] [place] [address] * PTT (APTT) (04/16/2018 11:35 PM) Component Value Ref Range APTT >200.0 (HH) 21.0 - 39.0 SEC Comment: Critical Result APTT:Called to NICHELLE Zamorano at: 00:16:08 by: RENETTA Read back by: NICHELLE Zamorano Specimen Performing Laboratory Blood [facility] [address] [place] [address] * POC GLUCOSE (04/16/2018 8:56 PM) Component Value Ref Range Glucose, POC 273 (H) 70 - 100 MG/DL Specimen Performing Laboratory [facility] [address] [place] [address] * POC GLUCOSE (04/16/2018 5:23 PM) Component Value Ref Range Glucose, POC 281 (H) 70 - 100 MG/DL Specimen Performing Laboratory [address] [address] * PTT (APTT) (04/16/2018 2:46 PM) Component Value Ref Range APTT 69.8 (H) 21.0 - 39.0 SEC Specimen Performing Laboratory Blood [address] [address] * POC GLUCOSE (04/16/2018 11:57 AM) Component Value Ref Range Glucose, POC 249 (H) 70 - 100 MG/DL Specimen Performing Laboratory [address] [address] * ECG-SCAN (04/16/2018 9:20 AM) Narrative Ordered by an unspecified provider. * ECG-SCAN (04/16/2018 9:20 AM) Narrative Ordered by an unspecified provider. * ECG-SCAN (04/16/2018 9:20 AM) Narrative Ordered by an unspecified provider. * POC GLUCOSE (04/16/2018 8:20 AM) Component Value Ref Range Glucose, POC 171 (H) 70 - 100 MG/DL Specimen Performing Laboratory [facility] [address] [place] [address] * PTT (APTT) (04/16/2018 5:01 AM) Component Value Ref Range APTT 127.9 (H) 21.0 - 39.0 SEC Specimen Performing Laboratory [facility] [address] [place] [address] * PROTIME INR (PT) (04/16/2018 5:01 AM) Component Value Ref Range INR 1.3 (H) 0.8 - 1.2 Specimen Performing Laboratory Blood [facility]IN [facility] [address] [place] [address] * MAGNESIUM (04/16/2018 5:01 AM) Component Value Ref Range Magnesium 1.4 (L) 1.6 - 2.6 mg/dL Specimen Performing Laboratory Blood MAIN LAB [address] [place] [address] * COMPREHENSIVE METABOLIC PANEL (04/16/2018 5:01 AM) Component Value Ref Range Sodium 135 (L) 137 - 147 MMOL/L Potassium 3.6 3.5 - 5.1 MMOL/L Chloride 94 (L) 98 - 110 MMOL/L Glucose 214 (H) 70 - 100 MG/DL Blood Urea Nitrogen 15 7 - 25 MG/DL Creatinine 0.54 0.4 - 1.00 MG/DL Calcium 8.9 8.5 - 10.6 MG/DL Total Protein 5.5 (L) 6.0 - 8.0 G/DL Total Bilirubin 0.5 0.3 - 1.2 MG/DL Albumin 2.9 (L) 3.5 - 5.0 G/DL Alk Phosphatase 89 25 - 110 U/L AST (SGOT) 29 7 - 40 U/L CO2 33 (H) 21 - 30 MMOL/L ALT (SGPT) 9 7 - 56 U/L Anion Gap 8 3 - 12 eGFR Non >60 >60 [...] Pharmacist for questions. Specimen Performing Laboratory Blood MAIN LAB [address] [place] [address] * CBC AND DIFF (04/16/2018 5:01 AM) Component Value Ref Range White Blood Cells 8.5 4.5 - 11.0 K/UL RBC 3.82 (L) 4.0 - 5.0 M/UL Hemoglobin 8.3 (L) 12.0 - 15.0 GM/DL Hematocrit 27.1 (L) 36 - 45 % MCV 70.8 (L) 80 - 100 FL MCH 21.6 (L) 26 - 34 PG MCHC 30.5 (L) 32.0 - 36.0 G/DL RDW 38.3 (H) 11 - 15 % Platelet Count 451 (H) 150 - 400 K/UL MPV 9.0 7 - 11 FL Neutrophils 65 41 - 77 % Lymphocytes 21 (L) 24 - 44 % Monocytes 8 4 - 12 % Eosinophils 5 0 - 5 % Basophils 1 0 - 2 % Absolute Neutrophil Count 5.50 1.8 - 7.0 K/UL Absolute Lymph Count 1.80 1.0 - 4.8 K/UL Absolute Monocyte Count 0.70 0 - 0.80 K/UL Absolute Eosinophil Count 0.50 (H) 0 - 0.45 K/UL Absolute Basophil Count 0.10 0 - 0.20 K/UL Specimen Performing Laboratory Blood [facility] [address] [place], [place] [id number] * POC GLUCOSE (04/16/2018 3:17 AM) Component Value Ref Range Glucose, POC 173 (H) 70 - 100 MG/DL Specimen Performing Laboratory [address] [address] * POC GLUCOSE (04/15/2018 9:01 PM) Component Value Ref Range Glucose, POC 218 (H) 70 - 100 MG/DL Specimen Performing Laboratory [address] [address] * POC GLUCOSE (04/15/2018 5:02 PM) Component Value Ref Range Glucose, POC 238 (H) 70 - 100 MG/DL Specimen Performing Laboratory [address] [address] * POC GLUCOSE (04/15/2018 1:05 PM) Component Value Ref Range Glucose, POC 262 (H) 70 - 100 MG/DL Specimen Performing Laboratory [place] [id number] * POC GLUCOSE (04/15/2018 8:02 AM) Component Value Ref Range Glucose, POC 239 (H) 70 - 100 MG/DL Specimen Performing Laboratory [place] [id number] * PROTIME INR (PT) (04/15/2018 3:00 AM) Component Value Ref Range INR 1.1 0.8 - 1.2 Specimen Performing Laboratory [address] [address] * MAGNESIUM (04/15/2018 3:00 AM) Component Value Ref Range Magnesium 1.6 1.6 - 2.6 mg/dL Specimen Performing Laboratory MAIN LAB [address] [place] [address] * CBC AND DIFF (04/15/2018 3:00 AM) Component Value Ref Range White Blood Cells 12.6 (H) 4.5 - 11.0 K/UL RBC 3.93 (L) 4.0 - 5.0 M/UL Hemoglobin 8.1 (L) 12.0 - 15.0 GM/DL Hematocrit 27.8 (L) 36 - 45 % MCV 70.7 (L) 80 - 100 FL MCH 20.7 (L) 26 - 34 PG MCHC 29.2 (L) 32.0 - 36.0 G/DL RDW 37.7 (H) 11 - 15 % Platelet Count 596 (H) 150 - 400 K/UL MPV 8.9 7 - 11 FL Neutrophils 75 41 - 77 % Lymphocytes 14 (L) 24 - 44 % Monocytes 7 4 - 12 % Eosinophils 3 0 - 5 % Basophils 1 0 - 2 % Absolute Neutrophil Count 9.50 (H) 1.8 - 7.0 K/UL Absolute Lymph Count 1.80 1.0 - 4.8 K/UL Absolute Monocyte Count 0.80 0 - 0.80 K/UL Absolute Eosinophil Count 0.40 0 - 0.45 K/UL Absolute Basophil Count 0.10 0 - 0.20 K/UL Specimen Performing Laboratory MAIN LAB [address] [place] [address] * COMPREHENSIVE METABOLIC PANEL (04/15/2018 3:00 AM) Component Value Ref Range Sodium 133 (L) 137 - 147 MMOL/L Potassium 3.7 3.5 - 5.1 MMOL/L Chloride 94 (L) 98 - 110 MMOL/L Glucose 237 (H) 70 - 100 MG/DL Blood Urea Nitrogen 17 7 - 25 MG/DL Creatinine 0.61 0.4 - 1.00 MG/DL Calcium 9.3 8.5 - 10.6 MG/DL Total Protein 6.2 6.0 - 8.0 G/DL Total Bilirubin 0.6 0.3 - 1.2 MG/DL Albumin 3.2 (L) 3.5 - 5.0 G/DL Alk Phosphatase 108 25 - 110 U/L AST (SGOT) 16 7 - 40 U/L CO2 34 (H) 21 - 30 MMOL/L ALT (SGPT) 8 7 - 56 U/L Anion Gap 5 [...] Clinical Pharmacist for questions. Specimen Performing Laboratory [facility] [address] [place] [address] * PTT (APTT) (04/15/2018 3:00 AM) Component Value Ref Range APTT 92.9 (H) 21.0 - 39.0 SEC Specimen Performing Laboratory Blood [facility] [address] [place], [place] [id number] * POC GLUCOSE (04/15/2018 2:54 AM) Component Value Ref Range Glucose, POC 256 (H) 70 - 100 MG/DL Specimen Performing Laboratory [facility] [address] [place], [place] [id number] * POC GLUCOSE (04/14/2018 9:13 PM) Component Value Ref Range Glucose, POC 343 (H) 70 - 100 MG/DL Specimen Performing Laboratory [facility] [address] [place], [place] [id number] * PTT (APTT) (04/14/2018 8:18 PM) Component Value Ref Range APTT 99.1 (H) 21.0 - 39.0 SEC Specimen Performing Laboratory Blood [facility] [address] [place], [place] [id number] * POC GLUCOSE (04/14/2018 5:53 PM) Component Value Ref Range Glucose, POC 288 (H) 70 - 100 MG/DL Specimen Performing Laboratory [facility] [address] [place], [place] [id number] * PAP THIN PREP (04/14/2018 3:21 PM) Component Value Ref Range Cytology [facility] [email or web address] Department of Pathology and Laboratory Medicine [address] [place] [address]. Office:[phone] CYTOLOGY REPORT NAME: BETINA BARON CYTOLOGY #: [id number] MR #: [id number] ALT ID #:[id number] #: [id number] LOCATION: [facility] DATE OF PROCEDURE: 04/14/2018 15:21 AGE:48 SEX: F DATE RECEIVED: 04/17/2018 : 1970 TIME RECEIVED: 15:21 PHYSICIAN: YANI TOMLINSON DATE OF REPORT: 04/20/2018 COPY TO: CONCETTA PATEL CHIARA DATE OF PRINTIN04/20/2018 HISTORY: Date of Last [...] testing results. As a part of our fuel quality tech program, this case has been rescreened by a marketing planning manager. Comment HPV, High Risk: Negative AMCAD Gen-Probe APTIMA HR-HPV Assay is a FDA [...] Department of Pathology and Laboratory Medicine at [facility] using [employer] Gen-Probe Victor System. Attestation: By this signature, I attest [...] conjunction with history and clinical findings.Reported using [employer] terminology. ################################################## ###################### Specimen Performing Laboratory [facility] LAB RESULTS * PTT (APTT) (04/14/2018 1:23 PM) Component Value Ref Range APTT 35.4 21.0 - 39.0 SEC Specimen Performing Laboratory Blood [facility] [address] [place] [address] * SURGICAL PATHOLOGY (04/14/2018 12:26 PM) Component Value Ref Range PATHOLOGY REPORT [facility] [email or web address] Department of Pathology and Laboratory Medicine [address] [place] [address] Surgical Pathology Office:[phone]:[phone] SURGICAL PATHOLOGY REPORT NAME: BETINA BARON SURG PATH #: [id number] MR #: [id number] SPECIMEN CLASS: SR BILLING #: [id number] ALT ID #:LOCATION: [id number] DATE OF PROCEDURE: 04/14/2018 AGE:48 SEX: F DATE RECEIVED: 04/14/2018 : 1970TIME RECEIVED: 12:26 PHYSICIAN: CONCETTA MCCRARY MD DATE OF REPORT: 04/16/2018 COPY TO: CATHERINE Riley DATE OF PRINTIN04/16/2018 ################################################## ###################### Final [...] and submitted entirely in cassette A1. (tn) 04/14/2018 Specimen Performing Laboratory LAB RESULTS * POC GLUCOSE (04/14/2018 12:03 PM) Component Value Ref Range Glucose, POC 303 (H) 70 - 100 MG/DL Specimen Performing Laboratory MAIN LAB [address] [place] [address] * PTT (APTT) (04/14/2018 10:25 AM) Component Value Ref Range APTT 182.1 (HH) 21.0 - 39.0 SEC Comment: Critical Result APTT:Called to OFE Lopez at: 11:16:09 by: RACHEL Read back by: OFE Lopez Specimen Performing Laboratory Blood MAIN LAB [address] [place] [address] * POC GLUCOSE (04/14/2018 7:40 AM) Component Value Ref Range Glucose, POC 216 (H) 70 - 100 MG/DL Specimen Performing Laboratory MAIN LAB [address] [place] [address] * PROTIME INR (PT) (04/14/2018 3:28 AM) Component Value Ref Range INR 1.1 0.8 - 1.2 Specimen Performing Laboratory MAIN LAB [address] [place] [address] * MAGNESIUM (04/14/2018 3:28 AM) Component Value Ref Range Magnesium 1.7 1.6 - 2.6 mg/dL Specimen Performing Laboratory MAIN LAB [address] [place] [address] * CBC AND DIFF (04/14/2018 3:28 AM) Component Value Ref Range White Blood Cells 9.3 4.5 - 11.0 K/UL RBC 3.78 (L) 4.0 - 5.0 M/UL Hemoglobin 7.7 (L) 12.0 - 15.0 GM/DL Hematocrit 26.1 (L) 36 - 45 % MCV 69.1 (L) 80 - 100 FL MCH 20.4 (L) 26 - 34 PG MCHC 29.5 (L) 32.0 - 36.0 G/DL RDW 36.6 (H) 11 - 15 % Platelet Count 574 (H) 150 - 400 K/UL MPV 9.3 7 - 11 FL Neutrophils 65 41 - 77 % Lymphocytes 21 (L) 24 - 44 % Monocytes 8 4 - 12 % Eosinophils 5 0 - 5 % Basophils 1 0 - 2 % Absolute Neutrophil Count 6.00 1.8 - 7.0 K/UL Absolute Lymph Count 2.00 1.0 - 4.8 K/UL Absolute Monocyte Count 0.70 0 - 0.80 K/UL Absolute Eosinophil Count 0.40 0 - 0.45 K/UL Absolute Basophil Count 0.10 0 - 0.20 K/UL Specimen Performing Laboratory MAIN LAB [address] [place] [address] * COMPREHENSIVE METABOLIC PANEL (04/14/2018 3:28 AM) Component Value Ref Range Sodium 135 (L) 137 - 147 MMOL/L Potassium 4.3 3.5 - 5.1 MMOL/L Chloride 102 98 - 110 MMOL/L Glucose 234 (H) 70 - 100 MG/DL Blood Urea Nitrogen 17 7 - 25 MG/DL Creatinine 0.68 0.4 - 1.00 MG/DL Calcium 8.5 8.5 - 10.6 MG/DL Total Protein 5.7 (L) 6.0 - 8.0 G/DL Total Bilirubin 0.4 0.3 - 1.2 MG/DL Albumin 3.0 (L) 3.5 - 5.0 G/DL Alk Phosphatase 110 25 - 110 U/L AST (SGOT) 15 7 - 40 U/L CO2 30 21 - 30 MMOL/L ALT (SGPT) 9 7 - 56 U/L Anion Gap 3 3 - 12 eGFR Non >60 >60 [...] Clinical Pharmacist for questions. Specimen Performing Laboratory [facility] [address] [place] [address] * PTT (APTT) (04/14/2018 3:28 AM) Component Value Ref Range APTT 86.3 (H) 21.0 - 39.0 SEC Specimen Performing Laboratory Blood [facility] [address] [place] [address] * POC GLUCOSE (04/14/2018 3:06 AM) Component Value Ref Range Glucose, POC 253 (H) 70 - 100 MG/DL Specimen Performing Laboratory [facility] [address] [place] [address] * POC GLUCOSE (04/13/2018 8:49 PM) Component Value Ref Range Glucose, POC 258 (H) 70 - 100 MG/DL Specimen Performing Laboratory [facility] [address] [place] [address] * PTT (APTT) (04/13/2018 8:45 PM) Component Value Ref Range APTT 66.9 (H) 21.0 - 39.0 SEC Specimen Performing Laboratory Blood [facility] [address] [place] [address] * POC GLUCOSE (04/13/2018 5:51 PM) Component Value Ref Range Glucose, POC 326 (H) 70 - 100 MG/DL Specimen Performing Laboratory [facility] [address] [place] [address] * POC GLUCOSE (04/13/2018 10:36 AM) Component Value Ref Range Glucose, POC 159 (H) 70 - 100 MG/DL Specimen Performing Laboratory [facility] [address] [place] [address] * CARDIAC CATH REPORT (04/13/2018 10:30 AM) Specimen Performing Laboratory OTHER OUTSIDE LAB Procedure Note Cj Whitaker MD - 04/13/2018 10:30 AM CDT Formatting of this note may be different from the original. [facility] CARDIAC CATHETERIZATION REPORT Page 2 BETINA Adhikari : 1970 K[facility]#: [id number] [facility] MR #/Billing ID #: [id number] / [id number] DATE: 04/13/2018 PATENT PROSECUTION ATTORNEY: Cj Whitaker MD DICTATING PROVIDER: Cj Whitaker MD REFERRING PHYSICIAN: REFERRAL SELF PROCEDURES: 1. Selective coronary arteriogram. 2. Aortogram. 3. Right heart cardiac catheterization with measurements of right-sided pressures and cardiac output by thermodilution method. INDICATION: Ms. Baron is a 48-year-old patient who was admitted with a large left ventricular apical thrombus. The patient's troponins were elevated. It appears to be a possible non ST elevation myocardial infarction versus demand ischemia. Patient is also noted to have cardiomyopathy with severe left ventricular dysfunction. Procedure was discussed at length with Ms. Baron. The patient's Barbeau test was completely flat. [...] prepped in the usual aseptic technique. A 5-Cymraes sheath was placed into the right common femoral artery under local anesthesia under fluoroscopic examination. An 8-Cymraes sheath was placed in the right common [...] right heart cardiac catheterization by a balloon-tipped Weston -Liza catheter. This was floated via the right femoral venous sheath. Hemodynamic measurements of the right heart were obtained. Cardiac output was measured by thermodilution method. The Weston-Liza catheter was then removed. Sheaths were left [...] AORTOGRAM: Aortogram was obtained in 30 degree LIBYAN projection. The aortogram reveals a single left [...] and continue IV diuresis. Cj Whitaker MD AM/MedQ /[id number] P cc: - REFERRAL SELF MD Cj Santa MD * O2HGB SAT-VENOUS POC (04/13/2018 10:16 AM) Component Value Ref Range O2HGB SAT-Venous POC 55.1 55 - 71 % Specimen Performing Laboratory MAIN LAB [address] [place] [address] * O2HGB SAT-VENOUS POC (04/13/2018 10:13 AM) Component Value Ref Range O2HGB SAT-Venous POC 56.5 55 - 71 % Specimen Performing Laboratory MAIN LAB [address] [place] [address] * POC ACTIVATED CLOTTING TIME (04/13/2018 9:59 AM) Component Value Ref Range Activated Clotting Time 169 s Specimen Performing Laboratory MAIN LAB [address] [place] [address] * O2HGB SAT-VENOUS POC (04/13/2018 9:59 AM) Component Value Ref Range O2HGB SAT-Venous POC 97.0 (H) 55 - 71 % Specimen Performing Laboratory [facility] [address] [place] [address] * POC GLUCOSE (04/13/2018 8:18 AM) Component Value Ref Range Glucose, POC 198 (H) 70 - 100 MG/DL Specimen Performing Laboratory [facility] [address] [place] [address] * MAGNESIUM (04/13/2018 6:35 AM) Component Value Ref Range Magnesium 1.6 1.6 - 2.6 mg/dL Specimen Performing Laboratory MAIN LAB [address] [place] [address] * CBC AND DIFF (04/13/2018 6:35 AM) Component Value Ref Range White Blood Cells 10.5 4.5 - 11.0 K/UL RBC 3.88 (L) 4.0 - 5.0 M/UL Hemoglobin 7.7 (L) 12.0 - 15.0 GM/DL Hematocrit 26.5 (L) 36 - 45 % MCV 68.2 (L) 80 - 100 FL MCH 20.0 (L) 26 - 34 PG MCHC 29.3 (L) 32.0 - 36.0 G/DL RDW 36.2 (H) 11 - 15 % Platelet Count 509 (H) 150 - 400 K/UL MPV 9.2 7 - 11 FL Segmented Neutrophils 72 41 - 77 % Lymphocytes 18 (L) 24 - 44 % Monocytes 8 4 - 12 % Eosinophil 2 0 - 5 % ANISO PRESENT HYPO PRESENT POIK PRESENT POLY PRESENT MICRO PRESENT Platelet Estimate SLT INC Absolute Neutrophil Count 7.56 (H) 1.8 - 7.0 K/UL Manual Specimen Performing Laboratory [facility] [address] [place] [address] * COMPREHENSIVE METABOLIC PANEL (04/13/2018 6:35 AM) Component Value Ref Range Sodium 137 137 - 147 MMOL/L Potassium 3.8 3.5 - 5.1 MMOL/L Chloride 103 98 - 110 MMOL/L Glucose 174 (H) 70 - 100 MG/DL Blood Urea Nitrogen 17 7 - 25 MG/DL Creatinine 0.58 0.4 - 1.00 MG/DL Calcium 8.5 8.5 - 10.6 MG/DL Total Protein 6.0 6.0 - 8.0 G/DL Total Bilirubin 0.4 0.3 - 1.2 MG/DL Albumin 3.1 (L) 3.5 - 5.0 G/DL Alk Phosphatase 120 (H) 25 - 110 U/L AST (SGOT) 20 7 - 40 U/L CO2 27 21 - 30 MMOL/L ALT (SGPT) 10 7 - 56 U/L Anion Gap 7 3 - 12 eGFR Non >60 >60 [...] Clinical Pharmacist for questions. Specimen Performing Laboratory [facility] [address] [place] [address] * PTT (APTT) (04/13/2018 6:35 AM) Component Value Ref Range APTT 73.9 (H) 21.0 - 39.0 SEC Specimen Performing Laboratory Blood [address] [address] * PTT (APTT) (04/12/2018 10:28 PM) Component Value Ref Range APTT 134.3 (HH) 21.0 - 39.0 SEC Comment: Critical Result APTT:Called to SALIMA Grajeda at: 23:16:15 by: HÉCTOR Read back by: SALIMA Grajeda Specimen Performing Laboratory Blood [place] [id number] * POC GLUCOSE (04/12/2018 8:42 PM) Component Value Ref Range Glucose, POC 234 (H) 70 - 100 MG/DL Specimen Performing Laboratory [address] [address] * POC GLUCOSE (04/12/2018 6:39 PM) Component Value Ref Range Glucose, POC 96 70 - 100 MG/DL Specimen Performing Laboratory [facility] [address] [place] [address] * POC GLUCOSE (04/12/2018 5:16 PM) Component Value Ref Range Glucose, POC 83 70 - 100 MG/DL Specimen Performing Laboratory [facility] [address] [place] [address] * POC GLUCOSE (04/12/2018 4:53 PM) Component Value Ref Range Glucose, POC 61 (L) 70 - 100 MG/DL Specimen Performing Laboratory [facility] [address] [place] [address] * POC GLUCOSE (04/12/2018 4:33 PM) Component Value Ref Range Glucose, POC 56 (L) 70 - 100 MG/DL Specimen Performing Laboratory [address] [address] * TROPONIN-I (04/12/2018 4:00 PM) Component Value Ref Range Troponin-I 1.87 (H) 0.0 - 0.05 NG/ML Specimen Performing Laboratory [place] [id number] * BASIC METABOLIC PANEL (04/12/2018 4:00 PM) [...] Pharmacist for questions. Specimen Performing Laboratory Blood [facility] [address] [place] [address] * PTT (APTT) (04/12/2018 3:34 PM) Component Value Ref Range APTT 57.1 (H) 21.0 - 39.0 SEC Specimen Performing Laboratory Blood [facility] [address] [place] [address] * POC GLUCOSE (04/12/2018 12:29 PM) Component Value Ref Range Glucose, POC 223 (H) 70 - 100 MG/DL Specimen Performing Laboratory [facility] [address] [place] [address] * TROPONIN-I (04/12/2018 11:13 AM) Component Value Ref Range Troponin-I 2.02 (H) 0.0 - 0.05 NG/ML Specimen Performing Laboratory Blood [facility] [address] [place] [address] * PTT (APTT) (04/12/2018 8:00 AM) Component Value Ref Range APTT 70.3 (H) 21.0 - 39.0 SEC Specimen Performing Laboratory Blood [facility] [address] [place] [address] * POC GLUCOSE (04/12/2018 7:42 AM) Component Value Ref Range Glucose, POC 209 (H) 70 - 100 MG/DL Specimen Performing Laboratory MAIN LAB [address] [place] [address] * TROPONIN-I (04/12/2018 5:21 AM) Component Value Ref Range Troponin-I 2.33 (H) 0.0 - 0.05 NG/ML Specimen Performing Laboratory Blood MAIN LAB [address] [place] [id number] * MAGNESIUM (04/12/2018 5:21 AM) Component Value Ref Range Magnesium 1.6 1.6 - 2.6 mg/dL Specimen Performing Laboratory Blood MAIN LAB [address] [place] [id number] * COMPREHENSIVE METABOLIC PANEL (04/12/2018 5:21 AM) Component Value Ref Range Sodium 137 137 - 147 MMOL/L Potassium 3.7 3.5 - 5.1 MMOL/L Chloride 105 98 - 110 MMOL/L Glucose 216 (H) 70 - 100 MG/DL Blood Urea Nitrogen 13 7 - 25 MG/DL Creatinine 0.54 0.4 - 1.00 MG/DL Calcium 8.5 8.5 - 10.6 MG/DL Total Protein 5.4 (L) 6.0 - 8.0 G/DL Total Bilirubin 0.4 0.3 - 1.2 MG/DL Albumin 2.9 (L) 3.5 - 5.0 G/DL Alk Phosphatase 113 (H) 25 - 110 U/L AST (SGOT) 21 7 - 40 U/L CO2 28 21 - 30 MMOL/L ALT (SGPT) 13 7 - 56 U/L Anion Gap 4 3 - 12 eGFR Non >60 >60 [...] Pharmacist for questions. Specimen Performing Laboratory Blood MAIN LAB [address] [place] [id number] * CBC AND DIFF (04/12/2018 5:21 AM) Component Value Ref Range White Blood Cells 11.4 (H) 4.5 - 11.0 K/UL RBC 3.61 (L) 4.0 - 5.0 M/UL Hemoglobin 7.3 (L) 12.0 - 15.0 GM/DL Hematocrit 24.3 (L) 36 - 45 % MCV 67.3 (L) 80 - 100 FL MCH 20.2 (L) 26 - 34 PG MCHC 30.0 (L) 32.0 - 36.0 G/DL RDW 35.9 (H) 11 - 15 % Platelet Count 490 (H) 150 - 400 K/UL MPV 9.1 7 - 11 FL Neutrophils 74 41 - 77 % Lymphocytes 15 (L) 24 - 44 % Monocytes 9 4 - 12 % Eosinophils 2 0 - 5 % Basophils 0 0 - 2 % Absolute Neutrophil Count 8.50 (H) 1.8 - 7.0 K/UL Absolute Lymph Count 1.70 1.0 - 4.8 K/UL Absolute Monocyte Count 1.00 (H) 0 - 0.80 K/UL Absolute Eosinophil Count 0.20 0 - 0.45 K/UL Absolute Basophil Count 0.00 0 - 0.20 K/UL Specimen Performing Laboratory Blood MAIN LAB [address] [place] [address] * PTT (APTT) (04/12/2018 1:15 AM) Component Value Ref Range APTT 50.7 (H) 21.0 - 39.0 SEC Specimen Performing Laboratory Blood MAIN LAB [address] [place] [address] * TROPONIN-I (04/12/2018 12:10 AM) Component Value Ref Range Troponin-I 1.59 (H) 0.0 - 0.05 NG/ML Specimen Performing Laboratory Blood MAIN LAB [address] [place] [address] * POC GLUCOSE (04/11/2018 8:17 PM) Component Value Ref Range Glucose, POC 147 (H) 70 - 100 MG/DL Specimen Performing Laboratory MAIN LAB [address] [place] [address] * US PELVIS NON OB COMP (04/11/2018 [...] Santiago M.D. on 04/12/2018 8:05 AM. * PTT (APTT) (04/11/2018 5:00 PM) Component Value Ref Range APTT 48.0 (H) 21.0 - 39.0 SEC Specimen Performing Laboratory Blood MAIN LAB [address] [place] [address] * TROPONIN-I (04/11/2018 5:00 PM) Component Value Ref Range Troponin-I 1.29 (H) 0.0 - 0.05 NG/ML Specimen Performing Laboratory Blood MAIN LAB [address] [place] [address] * POC GLUCOSE (04/11/2018 4:56 PM) Component Value Ref Range Glucose, POC 83 70 - 100 MG/DL Specimen Performing Laboratory MAIN LAB [address] [place] [address] * BETA-HCG (04/11/2018 12:00 PM) Component Value Ref Range Beta-HCG,Serum 1 <5 U/L Specimen Performing Laboratory MAIN LAB [address] [place] [address] * TROPONIN-I (04/11/2018 12:00 PM) Component Value Ref Range Troponin-I 0.33 (H) 0.0 - 0.05 NG/ML Specimen Performing Laboratory Blood MAIN LAB [address] [place] [address] * POC GLUCOSE (04/11/2018 11:29 AM) Component Value Ref Range Glucose, POC 333 (H) 70 - 100 MG/DL Specimen Performing Laboratory MAIN LAB [address] [place] [address] * 2-D + DOPPLER ECHOCARDIOGRAM (04/11/2018 10:40 [...] peak velocity 1.15 m/s MV Peak E Vean PW 1.08 m/s Right Heart Systolic 1.84 [...] TDI 0.130 m/s S' Cardiology Ultrasound Siemens [id number] Machine Left Ventricle Mass Index 125.60 44 [...] Ordering provider notified by text page. * PTT (APTT) (04/11/2018 9:06 AM) Component Value Ref Range APTT 24.4 21.0 - 39.0 SEC Specimen Performing Laboratory Blood [facility]IN [facility] [address] [place] [address] * POC GLUCOSE (04/11/2018 7:51 AM) Component Value Ref Range Glucose, POC 338 (H) 70 - 100 MG/DL Specimen Performing Laboratory [facility]IN [facility] [address] [place] [address] * CT ABD/PELV W CONTRAST (04/11/2018 6:29 [...] to mildly enlarged retroperitoneal lymph nodes. A union contract representative aortocaval caval node measures 1.1 x [...] to mildly enlarged retroperitoneal lymph nodes. A union contract representative aortocaval caval node measures 1.1 x [...] to mildly enlarged retroperitoneal lymph nodes. A union contract representative aortocaval caval node measures 1.1 x [...] to mildly enlarged retroperitoneal lymph nodes. A union contract representative aortocaval caval node measures 1.1 x [...] Amaya M.D. on 04/11/2018 8:21 AM. * MAGNESIUM (04/11/2018 6:00 AM) Component Value Ref Range Magnesium 1.6 1.6 - 2.6 mg/dL Specimen Performing Laboratory [facility] [address] [place] [address] * TROPONIN-I (04/11/2018 6:00 AM) Component Value Ref Range Troponin-I 0.32 (H) 0.0 - 0.05 NG/ML Specimen Performing Laboratory Blood [facility] [address] [place] [address] * TEST-URINE (04/11/2018 3:50 AM) Component Value Ref Range Urine-HCG NEG Samples with Specific [place] <1.010 may result in a false negative test Specific [place] >1.030 Specimen Performing Laboratory Urine [facility] [address] [place] [address] * PHENCYCLIDINES-URINE RANDOM (04/11/2018 3:50 AM) Component Value Ref Range Phencyclidine (PCP) NEG NEG-NEG Comment: RESULTS WERE OBTAINED BY IMMUNOASSAY AND ARE PRESUMPTIVE ONLY. POSITIVE INDICATES THE PRESENCE OF SUBSTANCE WITH CHARACTERISTICS SIMILAR TO DRUG-DRUG CLASS OR METABOLITE IN CONC. EQUAL TO OR EXCEEDING VALUES LISTED. PHENCYCLIDINE (PCP)25 NG/ML Specimen Performing Laboratory Urine [facility] [address] [place] [address] * OPIATES-URINE RANDOM (04/11/2018 3:50 AM) Component Value Ref Range Opiates-Urine NEG NEG-NEG Comment: RESULTS WERE OBTAINED BY IMMUNOASSAY AND ARE PRESUMPTIVE ONLY. POSITIVE INDICATES THE PRESENCE OF SUBSTANCE WITH CHARACTERISTICS SIMILAR TO DRUG-DRUG CLASS OR METABOLITE IN CONC. EQUAL TO OR EXCEEDING VALUES LISTED. [id number] NG/ML Specimen Performing Laboratory Urine [facility] [address] [place] [id number] * COCAINE-URINE RANDOM (04/11/2018 3:50 AM) Component Value Ref Range Cocaine-Urine NEG NEG-NEG Comment: RESULTS WERE OBTAINED BY IMMUNOASSAY AND ARE PRESUMPTIVE ONLY. POSITIVE INDICATES THE PRESENCE OF SUBSTANCE WITH CHARACTERISTICS SIMILAR TO DRUG-DRUG CLASS OR METABOLITE IN CONC. EQUAL TO OR EXCEEDING VALUES LISTED. COCAINE 300 NG/ML Specimen Performing Laboratory Urine [facility] [address] [place] [address] * CANNABINOIDS-URINE RANDOM (04/11/2018 3:50 AM) Component Value Ref Range THC NEG NEG-NEG Comment: RESULTS WERE OBTAINED BY IMMUNOASSAY AND ARE PRESUMPTIVE ONLY. POSITIVE INDICATES THE PRESENCE OF SUBSTANCE WITH CHARACTERISTICS SIMILAR TO DRUG-DRUG CLASS OR METABOLITE IN CONC. EQUAL TO OR EXCEEDING VALUES LISTED. [id number] NG/ML Specimen Performing Laboratory Urine [facility] [address] [place] [address] 217[address] * BENZODIAZEPINES-URINE RANDOM (04/11/2018 3:50 AM) Component Value Ref Range Benzodiazepines POS (A) NEG-NEG Comment: RESULTS WERE OBTAINED BY IMMUNOASSAY AND ARE PRESUMPTIVE ONLY. POSITIVE INDICATES THE PRESENCE OF SUBSTANCE WITH CHARACTERISTICS SIMILAR TO DRUG-DRUG CLASS OR METABOLITE IN CONC. EQUAL TO OR EXCEEDING VALUES LISTED. BENZODIAZEPINES 200 NG/ML Specimen Performing Laboratory Urine [facility] [address] [place] [address] * BARBITURATES-URINE RANDOM (04/11/2018 3:50 AM) Component Value Ref Range Barbiturates,Urine NEG NEG-NEG Comment: RESULTS WERE OBTAINED BY IMMUNOASSAY AND ARE PRESUMPTIVE ONLY. POSITIVE INDICATES THE PRESENCE OF SUBSTANCE WITH CHARACTERISTICS SIMILAR TO DRUG-DRUG CLASS OR METABOLITE IN CONC. EQUAL TO OR EXCEEDING VALUES LISTED. [id number] NG/ML Specimen Performing Laboratory Urine [facility] [address] [place] [address] 156[address] * AMPHETAMINES-URINE RANDOM (04/11/2018 3:50 AM) Component Value Ref Range Amphetamines NEG NEG-NEG Comment: RESULTS WERE OBTAINED BY IMMUNOASSAY AND ARE PRESUMPTIVE ONLY. POSITIVE INDICATES THE PRESENCE OF SUBSTANCE WITH CHARACTERISTICS SIMILAR TO DRUG-DRUG CLASS OR METABOLITE IN CONC. EQUAL TO OR EXCEEDING VALUES LISTED. AMPHETAMINES 1000 NG/ML Specimen Performing Laboratory Urine [facility] [address] [place] [address] 943[address] * URINALYSIS, MICROSCOPIC (04/11/2018 3:50 AM) Component Value Ref Range WBCs,UA 0-2 0 - 2 /HPF RBCs,UA 0-2 0 - 3 /HPF MucousUA TRACE Specimen Performing Laboratory Urine [facility] [address] [place] [address] * URINALYSIS DIPSTICK (04/11/2018 3:50 AM) Component Value Ref Range Color,UA YELLOW Turbidity,UA CLEAR CLEAR-CLEAR Specific [place]-Urine >1.050 (H) 1.003 - 1.035 pH,UA 6.0 5.0 - 8.0 Protein,UA 2+ (A) NEG-NEG Glucose,UA 3+ (A) NEG-NEG Ketones,UA NEG NEG-NEG Bilirubin,UA NEG NEG-NEG Blood,UA NEG NEG-NEG Urobilinogen,UA NORMAL NORM-NORMAL Nitrite,UA NEG NEG-NEG Leukocytes,UA NEG NEG-NEG Urine Ascorbic Acid, UA NEG NEG-NEG Specimen Performing Laboratory Urine [address] [address] * CULTURE-URINE W/SENSITIVITY (04/11/2018 3:50 AM) Component Value Ref Range Battery Name URINE CULTURE Specimen Description URINE Special Requests NONE Culture NO GROWTH Report Status FINAL 04/12/2018 Specimen Performing Laboratory Urine [facility] [address] [place] [address] 6[address] * POC GLUCOSE (04/11/2018 3:20 AM) Component Value Ref Range Glucose, POC 327 (H) 70 - 100 MG/DL Specimen Performing Laboratory MAIN LAB [address] [place] [address] 7[address] * HIV-1/2 ANTIGEN/ANTIBODY SCREEN (04/11/2018 1:55 AM) Component Value Ref Range HIV 1 and 2 AG AB Screen NEG NEG-NEG Specimen Performing Laboratory Blood MAIN [facility] [address] [place] [address]70[address] * HAPTOGLOBIN (04/11/2018 1:55 AM) Component Value Ref Range Haptoglobin 120 16 - 200 MG/DL Specimen Performing Laboratory Blood [facility] [address] [place] [address] * FIBRINOGEN (04/11/2018 1:55 AM) Component Value Ref Range Fibrinogen 225 200 - 400 MG/DL Specimen Performing Laboratory Blood MAIN [facility] [address] [place] [address] * CULTURE-BLOOD W/SENSITIVITY (04/11/2018 1:55 AM) Component Value Ref Range Battery Name BLOOD CULTURE Specimen Description BLOOD RIGHT ANTECUBITAL Special Requests NONE Culture NO GROWTH 5 DAYS Report Status FINAL 04/17/2018 Specimen Performing Laboratory Blood MAIN [facility] [address] [place] [address] * CULTURE-BLOOD W/SENSITIVITY (04/11/2018 1:55 AM) Component Value Ref Range Battery Name BLOOD CULTURE Specimen Description BLOOD LEFT ANTECUBITAL Special Requests NONE Culture NO GROWTH 5 DAYS Report Status FINAL 04/17/2018 Specimen Performing Laboratory Blood [facility] [address] [place] [address] * TSH WITH FREE T4 REFLEX (04/11/2018 1:55 AM) Component Value Ref Range TSH 4.590 0.35 - 5.00 MCU/ML Specimen Performing Laboratory Blood [facility] [address] [place] [address] * BNP (B-TYPE NATRIURETIC PEPTI) (04/11/2018 1:55 AM) Component Value Ref Range B Type Natriuretic 2,773.0 (H) 0 - 100 PG/ML Peptide Specimen Performing Laboratory Blood [facility] [address] [place] [address] 89[address] * PTT (APTT) (04/11/2018 1:55 AM) Component Value Ref Range APTT 25.5 21.0 - 39.0 SEC Specimen Performing Laboratory Blood MAIN LAB [address] [place] [address] 27141 * PROTIME INR (PT) (04/11/2018 1:55 AM) Component Value Ref Range INR 1.1 0.8 - 1.2 Specimen Performing Laboratory Blood [facility] [address] [place], [place] [id number] * LIPASE (04/11/2018 1:33 AM) Component Value Ref Range Lipase <3 (L) 11 - 82 U/L Specimen Performing Laboratory MAIN LAB [address] [place], [place] [id number] * CREATINE KINASE-CPK (04/11/2018 1:33 AM) Component Value Ref Range Creatine Kinase 30 21 - 215 U/L Specimen Performing Laboratory [facility] [address] [place] [address] * FOLATE, SERUM (04/11/2018 1:33 AM) Component Value Ref Range Serum Folate 14.8Comment: NOTE NEW REFERENCE RANGES >3.9 NG/ML Specimen Performing Laboratory [facility] [address] [place] [address] * VITAMIN B12 (04/11/2018 1:33 AM) Component Value Ref Range Vitamin B12 643 180 - 914 PG/ML Specimen Performing Laboratory [facility] [address] [place] [address] 05610 * RETICULOCYTE COUNT (04/11/2018 1:33 AM) Component Value Ref Range Retic, Uncorrected 3.0 (H) 0.5 - 2.0 % Retic, Corrected 1.8 % Retic, Absolute 111.3 (H) 30 - 94 K/UL Specimen Performing Laboratory [facility] [address] [place] [address] 760[address] * PHOSPHORUS (04/11/2018 1:33 AM) Component Value Ref Range Phosphorus 3.2 2.0 - 4.0 MG/DL Specimen Performing Laboratory [facility] [address] [place] [address] 19[address] * MAGNESIUM (04/11/2018 1:33 AM) Component Value Ref Range Magnesium 1.5 (L) 1.6 - 2.6 mg/dL Specimen Performing Laboratory [facility] [address] [place] [address] 359[address] * LIPID PROFILE (04/11/2018 1:33 AM) Component Value Ref Range Cholesterol 101 <200 MG/DL Triglycerides 85 <150 MG/DL HDL 44 >40 MG/DL LDL 45 <100 MG/DL VLDL 17 MG/DL Non HDL Cholesterol 57 MG/DL Comment: Calculated non-HDL Cholesterol (non-HDL-C) indirectly measures LDL-C, Lp(a), IDL-C, and VLDL-C.It is a surrogate marker for Apoprotein B.Goal should be less than 130 mg/dL. Specimen Performing Laboratory [facility] [address] [place] [address] * LDH-LACTATE DEHYDROGENASE (04/11/2018 1:33 AM) Component Value Ref Range Lactate Dehydrogenase 281 (H) 100 - 210 U/L Specimen Performing Laboratory [facility] [address] [place] [address] * IRON + BINDING CAPACITY + %SAT+ FERRITIN (04/11/2018 1:33 AM) Component Value Ref Range Iron 10 (L) 50 - 160 MCG/DL Iron Binding-TIBC 419 (H) 270 - 380 MCG/DL % Saturation 2 (L) 28 - 42 % Ferritin 5 (L) 10 - 200 NG/ML Specimen Performing Laboratory [facility] [address] [place] [address] * CBC AND DIFF (04/11/2018 1:33 AM) Component Value Ref Range White Blood Cells 8.7 4.5 - 11.0 K/UL RBC 3.73 (L) 4.0 - 5.0 M/UL Hemoglobin 7.6 (L) 12.0 - 15.0 GM/DL Hematocrit 25.2 (L) 36 - 45 % MCV 67.5 (L) 80 - 100 FL MCH 20.4 (L) 26 - 34 PG MCHC 30.2 (L) 32.0 - 36.0 G/DL RDW 36.4 (H) 11 - 15 % Platelet Count 515 (H) 150 - 400 K/UL MPV 9.2 7 - 11 FL Neutrophils 67 41 - 77 % Lymphocytes 20 (L) 24 - 44 % Monocytes 10 4 - 12 % Eosinophils 2 0 - 5 % Basophils 1 0 - 2 % Absolute Neutrophil Count 5.90 1.8 - 7.0 K/UL Absolute Lymph Count 1.70 1.0 - 4.8 K/UL Absolute Monocyte Count 0.80 0 - 0.80 K/UL Absolute Eosinophil Count 0.10 0 - 0.45 K/UL Absolute Basophil Count 0.10 0 - 0.20 K/UL Specimen Performing Laboratory [facility] [address] [place] [address] * HEMOGLOBIN A1C (04/11/2018 1:33 AM) Component Value Ref Range Hemoglobin A1C 10.5 (H) 4.0 - 6.0 % Comment: The ADA recommends that most patients with type 1 and type 2 diabetes maintain an A1c level <7%. Specimen Performing Laboratory [facility] [address] [place] [address]78 * COMPREHENSIVE METABOLIC PANEL (04/11/2018 1:33 AM) Component Value Ref Range Sodium 135 (L) 137 - 147 MMOL/L Potassium 3.4 (L) 3.5 - 5.1 MMOL/L Chloride 101 98 - 110 MMOL/L Glucose 359 (H) 70 - 100 MG/DL Blood Urea Nitrogen 9 7 - 25 MG/DL Creatinine 0.50 0.4 - 1.00 MG/DL Calcium 8.7 8.5 - 10.6 MG/DL Total Protein 6.0 6.0 - 8.0 G/DL Total Bilirubin 0.5 0.3 - 1.2 MG/DL Albumin 3.3 (L) 3.5 - 5.0 G/DL Alk Phosphatase 122 (H) 25 - 110 U/L AST (SGOT) 15 7 - 40 U/L CO2 26 21 - 30 MMOL/L ALT (SGPT) 12 7 - 56 U/L Anion Gap 8 3 - 12 eGFR Non >60 >60 [...] Clinical Pharmacist for questions. Specimen Performing Laboratory [facility] [address] [place] [address] * TROPONIN-I (04/11/2018 1:33 AM) Component Value Ref Range Troponin-I 0.30 (H) 0.0 - 0.05 NG/ML Specimen Performing Laboratory Blood [facility] [address] [place] [address] * LACTIC ACID (BG - RAPID LACTATE) (04/11/2018 1:20 AM) Component Value Ref Range Lactic Acid,BG 1.6 0.5 - 2.0 MMOL/L Specimen Performing Laboratory Blood [facility] [address] [place] [address] * CHEST SINGLE VIEW (04/11/2018 1:05 AM) [...] finalized and does not contain a result. in this encounter Visit Diagnoses Diagnosis Iron deficiency anemia due to chronic blood loss - Primary Iron deficiency anemia secondary to blood loss (chronic) Abnormal uterine bleeding Unspecified disorder of menstruation and other abnormal bleeding from female genital tract Acute systolic CHF (congestive heart failure) (HCC) Acute systolic heart failure LV (left ventricular) mural thrombus without TX Other ill-defined heart disease Mass of heart Swelling, mass, or lump in chest Polysubstance abuse Other, mixed, or unspecified nondependent drug abuse, unspecified Type 2 diabetes mellitus with hyperglycemia, with long-term current use of insulin (HCC) Intramural and submucous leiomyoma of uterus Hypotension, unspecified hypotension type Bradycardia Other specified cardiac dysrhythmias Iron deficiency anemia Iron deficiency anemia, unspecified DM (diabetes mellitus) ([facility]) Type II or unspecified type diabetes mellitus without mention of complication , not stated as uncontrolled Fibroids Leiomyoma of uterus, unspecified Admitting Diagnoses Diagnosis mass left ventricle Mass of heart Administered Medications Medication Order MAR Action Action Date Dose Rate Site acetaminophen (TYLENOL) tablet 650 mg 650 mg, Oral, EVERY 4 HOURS PRN, Starting Yesica 04/13/18 at 1310, Until Tue04/18/18 at 2116, Pain non-opioid: may be used alone or in combination with opioid analgesia, TOTAL ACETAMINOPHEN DOSE NOT TO EXCEED 4GM DAILY ascorbic acid (VITAMIN C) tablet 500 mg Given 04/12/2018 500 mg 500 mg, Oral, DAILY, First dose on Tue 08:42 CDT 04/11/18 at 1300, Until Discontinued Given 04/13/2018 500 mg 11:59 CDT Given 04/14/2018 500 mg 08:42 CDT aspirin chewable tablet 324 mg Given 04/13/2018 324 mg 324 mg, Oral, ONCE, 1 dose, Tue04/12/18 08:25 CDT at 1030, Give STAT prior to CV procedure. aspirin EC tablet 81 mg Given 04/16/2018 81 mg 81 mg, Oral, DAILY, First dose on Tue 08:23 CDT 04/12/18 at 1000, Until Discontinued Given 04/17/2018 81 mg 08:56 CDT Given 04/18/2018 81 mg 08:33 CDT atorvastatin (LIPITOR) tablet 80 mg Given 04/16/2018 80 mg 80 mg, Oral, DAILY, First dose on Tue 08:23 CDT 04/12/18 at 1000, Until Discontinued Given 04/17/2018 80 mg 08:56 CDT Given 04/18/2018 80 mg 08:34 CDT carvedilol (COREG) tablet 3.125 mg Given 04/15/2018 3.125 mg 3.125 mg, Oral, TWICE DAILY, First dose 08:31 CDT on Tue04/11/18 at 1300, Until Discontinued, Hold for heart rate < 50 bpm Given 04/15/2018 3.125 mg 21:07 CDT Given 04/16/2018 3.125 mg 08:23 CDT carvedilol (COREG) tablet 6.25 mg Given 04/17/2018 6.25 mg 6.25 mg, Oral, TWICE DAILY, First dose 08:56 CDT on Tue04/16/18 at 2100, Until Discontinued, Hold for heart rate < 50 bpm or syst <90 Given 04/17/2018 6.25 mg 20:29 CDT Given 04/18/2018 6.25 mg 08:34 CDT enoxaparin (LOVENOX) syringe 80 mg Given 04/17/2018 80 mg Abdominal 80 mg (rounded from 79.3 mg=1 mg/kg 14:05 CDT Tissue 79.3 kg), Subcutaneous, TWICE DAILY, First dose on Tue04/17/18 at 1315, Until Discontinued, For patients undergoing surgery: Consult physician in advance -- enoxaparin is an anticoagulant and may need to be held for 12hr prior to surgery or invasive procedures. NOTE: This is a HIGH ALERT Medication. Given 04/17/2018 80 mg Abdomen:LLQ 20:27 CDT Given 04/18/2018 80 mg Abdominal 08:34 CDT Tissue furosemide (LASIX) injection 40 mg Given 04/12/2018 40 mg 40 mg, Intravenous, TWICE DAILY, First 08:49 CDT dose on Tue04/12/18 at 0945, Until Discontinued, PROTECT FROM LIGHT Given 04/12/2018 40 mg 16:56 CDT furosemide (LASIX) injection 40 mg Given 04/12/2018 40 mg 40 mg, Intravenous, ONCE, 1 dose, Tue 10:52 CDT 04/12/18 at 1015, PROTECT FROM LIGHT furosemide (LASIX) injection 40 mg Given 04/14/2018 40 mg 40 mg, Intravenous, ONCE, 1 dose, Tue 12:03 CDT 04/14/18 at 1045, PROTECT FROM LIGHT furosemide (LASIX) injection 60 mg Given 04/13/2018 60 mg 60 mg, Intravenous, TWICE DAILY, First 16:26 CDT dose on Yesica 04/13/18 at 1700, Until Discontinued, PROTECT FROM LIGHT Given 04/14/2018 60 mg 08:43 CDT furosemide (LASIX) injection 80 mg Given 04/15/2018 80 mg 80 mg, Intravenous, TWICE DAILY, First 08:31 CDT dose on Tue04/14/18 at 1700, Until Discontinued, PROTECT FROM LIGHT Given 04/15/2018 80 mg 17:19 CDT Given 04/16/2018 80 mg 08:23 CDT furosemide (LASIX) tablet 40 mg Given 04/17/2018 40 mg 40 mg, Oral, DAILY, First dose on Tue 08:56 CDT 04/17/18 at 0900, Until Discontinued Given 04/18/2018 40 mg 08:34 CDT heparin (porcine) 20,000 Units in Dose/Rate 04/17/2018 2,022 25.3 mL/ hr dextrose 5% (D5W) 250 mL IV infusion Verify 07:34 CDT Units/hr (dbl conc) 0-2,000 Units/hr (0-25 mL/hr) 250 mL, at 0-25 mL/hr, Intravenous, TITRATE DIRECTED , Starting 04/12/18 at 2145, Until Tue04/17/18 at 1308, Weight-Based Heparin Protocol (dbl conc) - Weight-Based Heparin Protocol - See separate order for Initial IV bolus (if ordered). - Initial IV infusion 15 units/kg/hr. Initial IV infusion not to exceed 1,700 units/hr. - Follow heparin infusion scale - NO ADJUSTMENT BOLUS Heparin Infusion Scale - NO ADJUSTMENT BOLUS aPTT NO Bolus Dose Pause Infusion Infusion Rate Repeat (secs) (minutes) (units/hr) <65 NO BOLUS 0 Increase 200 units/hr in 6 hours 65-74 NO BOLUS 0 Increase 100 units/hr in 6 hours 75-120 NO BOLUS 0 No Change in 6 hours/qAM* 121-129 NO BOLUS 60 Decrease 100 units/hr in 6 hours 130-150 NO BOLUS 90 Decrease 200 units/hr in 6 hours >150 NO BOLUS 90 Decrease 200 units/hr ++ * After 2 consecutive therapeutic aPTT, go to q AM ++ After 90 minutes, restart heparin at reduced rate AND draw an aPTT. If aPTT remains greater than 120 follow protocol (pause infusion for specified time then decrease infusion rate per protocol), if aPTT is 120 or less continue with reduced rate. Redraw aPTT in 6 hrs and follow protocol. ====NOTE: This is a HIGH ALERT Medication. Dbl conc=80units/mL. NOTE: This is a HIGH ALERT Medication. Dose/Rate Verify 04/17/2018 2,022 25.3 mL/hr 10:00 CDT Units/hr Given - New Bag 04/17/2018 2,022 25.3 mL/hr 12:45 CDT Units/hr heparin (porcine) 20,000 Units in sodium Given - New 04/12/2018 2,022 50.6 mL/hr chloride 0.9% (NS) 500 mL IV infusion Bag 15:21 CDT Units/hr (std conc) 0-2,000 Units/hr (0-50 mL/hr) 500 mL, at 0-50 mL/hr, Intravenous, TITRATE DIRECTED , Starting Tue04/11/18 at 1400, Until Tue04/12/18 at 2139, Weight-Based Heparin Protocol - See separate order for Initial IV bolus (if ordered). - Initial IV infusion 15 units/kg/hr. Initial IV infusion not to exceed 1,700 units/hr. - Follow heparin infusion scale - NO ADJUSTMENT BOLUS Heparin Infusion Scale - NO ADJUSTMENT BOLUS aPTT NO Bolus Dose Pause Infusion Infusion Rate Repeat (secs) (minutes) (units/hr) <65 NO BOLUS 0 Increase 200 units/hr in 6 hours 65-74 NO BOLUS 0 Increase 100 units/hr in 6 hours 75-120 NO BOLUS 0 No Change in 6 hours/qAM* 121-129 NO BOLUS 60 Decrease 100 units/hr in 6 hours 130-150 NO BOLUS 90 Decrease 200 units/hr in 6 hours >150 NO BOLUS 90 Decrease 200 units/hr ++ * After 2 consecutive therapeutic aPTT, go to q AM ++ After 90 minutes, restart heparin at reduced rate AND draw an aPTT. If aPTT remains greater than 120 follow protocol (pause infusion for specified time then decrease infusion rate per protocol), if aPTT is 120 or less continue with reduced rate. Redraw aPTT in 6 hrs and follow protocol. ====Std conc=40 units/mL. NOTE: This is a HIGH ALERT Medication. Dose/Rate Change 04/12/2018 2,222 55.6 mL/hr 16:35 CDT Units/hr Dose/Rate Verify 04/12/2018 2,222 55.6 mL/hr 20:11 CDT Units/hr heparin (porcine) 20,000 units/D5W 500 Given - New 04/11/2018 1,322 33.1 mL/hr mL infusion (std conc)(premade) Bag 03:48 CDT Units/hr 0-2,000 Units/hr (0-50 mL/hr) 500 mL, at 0-50 mL/hr, Intravenous, TITRATE DIRECTED , Starting 04/11/18 at 0245, Until Tue04/11/18 at 1356, Weight-Based Heparin Protocol - See separate order for Initial IV bolus (if ordered). - Initial IV infusion 15 units/kg/hr. Initial IV infusion not to exceed 1,700 units/hr. - Follow heparin infusion scale - NO ADJUSTMENT BOLUS Heparin Infusion Scale - NO ADJUSTMENT BOLUS aPTT NO Bolus Dose Pause Infusion Infusion Rate Repeat (secs) (minutes) (units/hr) <65 NO BOLUS 0 Increase 200 units/hr in 6 hours 65-74 NO BOLUS 0 Increase 100 units/hr in 6 hours 75-120 NO BOLUS 0 No Change in 6 hours/qAM* 121-129 NO BOLUS 60 Decrease 100 units/hr in 6 hours 130-150 NO BOLUS 90 Decrease 200 units/hr in 6 hours >150 NO BOLUS 90 Decrease 200 units/hr ++ * After 2 consecutive therapeutic aPTT, go to q AM ++ After 90 minutes, restart heparin at reduced rate AND draw an aPTT. If aPTT remains greater than 120 follow protocol (pause infusion for specified time then decrease infusion rate per protocol), if aPTT is 120 or less continue with reduced rate. Redraw aPTT in 6 hrs and follow protocol. ====NOTE: This is a HIGH ALERT Medication. Dose/Rate Verify 04/11/2018 1,322 33.1 mL/hr 07:15 CDT Units/hr Dose/Rate Change 04/11/2018 1,522 38.1 mL/hr 10:50 CDT Units/hr heparin (porcine) BOLUS for continuous Given 04/11/2018 6,167.2 inf (bag) 6,167.2 Units 03:49 CDT Units 6,167.2 Units (rounded from 6,167 Units=70 Units/kg 88.1 kg), Intravenous, ONCE, 1 dose, 04/11/18 at 0245, INITIAL BOLUS for heparin drip -- Weight-Based Heparin Protocol - Initial IV bolus (from bag): 70 units/kg - Not to exceed 7500 units - Administer initial bolus dose via pump from infusion bag. NOTE: This is a HIGH ALERT Medication. insulin aspart U-100 (NOVOLOG FLEXPEN) Given 04/13/2018 10 Units Abdomen:LLQ injection PEN 0-14 Units 17:51 CDT 0-14 Units, Subcutaneous, BEFORE MEALS AND AT BEDTIME, First dose on Yesica 04/13/18 at 1230, Until Discontinued, -POC glucose 140-180mg/dL at 07, 11, 17 administer 2 units insulin, at 21, 03* administer 0 units. -POC glucose 181-220mg/dL at , , 17 administer 4 units insulin, at 21, 03* administer 2 units. -POC glucose 221-260mg/dL at 07, 11, 17 administer 6 units insulin, at , * administer 4 units. -POC glucose 261-300mg/dL at administer 8 units insulin, at , * administer 6 units. -POC glucose 301-350mg/dL at administer 10 units insulin, at , * administer 8 units. -POC glucose 351-400mg/dL at administer 12 units insulin, at , * administer 10 units. -POC glucose >400mg/dL at administer 14 units insulin, at , * administer 12 units. *only if ordered 5x's daily For POCT glucose >350mg/dL give correction bolus and recheck POCT glucose in 2 hours. If POCT glucose at 2 hours >300mg/dL call physician for further orders. For patients who are not eating meals, continue to administer the appropriate correction factor. NOTE: This is a HIGH ALERT Medication. Given 04/13/2018 4 Units Arm, Right 21:02 CDT Given 04/14/2018 4 Units Arm, Left 07:40 CDT insulin aspart U-100 (NOVOLOG FLEXPEN) Given 04/12/2018 12 Units Arm, Right injection PEN 0-28 Units 12:38 CDT 0-28 Units, Subcutaneous, BEFORE MEALS AND AT BEDTIME, First dose on Tue04/11/18 at 0700, Until Discontinued, -POC glucose 140-180mg/dL at administer 4 units insulin, at , 03* administer 0 units. -POC glucose 181-220mg/dL at administer 8 units insulin, at , * administer 4 units. -POC glucose 221-260mg/dL at administer 12 units insulin, at , * administer 8 units. -POC glucose 261-300mg/dL at administer 16 units insulin, at , 03* administer 12 units. -POC glucose 301-350mg/dL at administer 20 units insulin, at , 03* administer 16 units. -POC glucose 351-400mg/dL at administer 24 units insulin, at , 03* administer 20 units. -POC glucose >400mg/dL at administer 28 units insulin, at , 03* administer 24 units. *only if ordered 5x's daily For POCT glucose >350mg/dL give correction bolus and recheck POCT glucose in 2 hours. If POCT glucose at 2 hours >300mg/dL call physician for further orders. For patients who are not eating meals, continue to administer the appropriate correction factor. NOTE: This is a HIGH ALERT Medication. Given 04/12/2018 8 Units Abdominal 21:53 CDT Tissue Given 04/13/2018 4 Units Abdomen:LLQ 08:26 CDT insulin aspart U-100 (NOVOLOG FLEXPEN) Given 04/18/2018 2 Units Arm, Right injection PEN 0-7 Units 03:43 CDT 0-7 Units, Subcutaneous, FIVE TIMES DAILY, First dose on Tue04/14/18 at 1200, Until Discontinued, -POC glucose 140-180mg/dL at , , administer 1 unit insulin, at , 03* administer 0 units. -POC glucose 181-220mg/dL at , , administer 2 units insulin, at , 03* administer 1 unit. -POC glucose 221-260mg/dL at , , administer 3 units insulin, at , 03* administer 2 units. -POC glucose 261-300mg/dL at , , administer 4 units insulin, at , 03* administer 3 units. -POC glucose 301-350mg/dL at , , administer 5 units insulin, at , 03* administer 4 units. -POC glucose 351-400mg/dL at , , administer 6 units insulin, at , 03* administer 5 units. -POC glucose >400mg/dL at , , administer 7 units insulin, at , 03* administer 6 units. *only if ordered 5x's daily For POCT glucose >350mg/dL give correction bolus and recheck POCT glucose in 2 hours. If POCT glucose at 2 hours >300mg/dL call physician for further orders. For patients who are not eating meals, continue to administer the appropriate correction factor. NOTE: This is a HIGH ALERT Medication. Given 04/18/2018 4 Units Abdominal 08:39 CDT Tissue Given 04/18/2018 3 Units Abdominal 17:40 CDT Tissue insulin aspart U-100 (NOVOLOG FLEXPEN) Given 04/16/2018 5 Units Arm, Right injection PEN 5 Units 12:01 CDT 5 Units, Subcutaneous, THREE TIMES DAILY WITH MEALS, First dose on Tue04/14/18 at 1200, Until Discontinued, Hold if NPO for procedure, unable to eat, or if FSBS < 70 mg/dL Give at start of meal. NOTE: This is a HIGH ALERT Medication. Given 04/16/2018 5 Units Arm, Left 17:37 CDT Given 04/17/2018 5 Units Arm, Left 08:58 CDT insulin aspart U-100 (NOVOLOG FLEXPEN) Given 04/17/2018 7 Units Arm, Left injection PEN 7 Units 12:28 CDT 7 Units, Subcutaneous, THREE TIMES DAILY WITH MEALS, First dose on Tue04/17/18 at 1200, Until Discontinued, Hold if NPO for procedure, unable to eat, or if FSBS < 70 mg/dL Give at start of meal. NOTE: This is a HIGH ALERT Medication. Given 04/17/2018 7 Units Arm, Right 18:45 CDT Given 04/18/2018 7 Units Abdominal 08:39 CDT Tissue insulin aspart U-100 (NOVOLOG FLEXPEN) Given 04/18/2018 8 Units Abdominal injection PEN 8 Units 12:42 CDT Tissue 8 Units, Subcutaneous, THREE TIMES DAILY WITH MEALS, First dose on Tue04/18/18 at 1200, Until Discontinued, Hold if NPO for procedure, unable to eat, or if FSBS < 70 mg/dL Give at start of meal. NOTE: This is a HIGH ALERT Medication. Given 04/18/2018 8 Units Abdominal 17:40 CDT Tissue insulin glargine (LANTUS SOLOSTAR, Given 04/11/2018 10 Units Abdominal BASAGLAR) injection PEN 10 Units 21:04 CDT Tissue 10 Units, Subcutaneous, AT BEDTIME DAILY, First dose on Tue04/11/18 at 2100, Until Discontinued, -- Do not mix with other insulins -- NOTE: This is a HIGH ALERT Medication. Given 04/12/2018 10 Units Arm, Right 21:54 CDT Given 04/13/2018 10 Units Arm, Right 21:04 CDT insulin glargine (LANTUS SOLOSTAR, Given 04/14/2018 14 Units Arm, Left BASAGLAR) injection PEN 14 Units 21:14 CDT 14 Units, Subcutaneous, AT BEDTIME DAILY, First dose on Tue04/14/18 at 2100, Until Discontinued, -- Do not mix with other insulins -- NOTE: This is a HIGH ALERT Medication. Given 04/15/2018 14 Units Arm, Left 21:07 CDT insulin glargine (LANTUS SOLOSTAR, Given 04/16/2018 18 Units Arm, Right BASAGLAR) injection PEN 18 Units 20:58 CDT 18 Units, Subcutaneous, AT BEDTIME DAILY, First dose on Tue04/16/18 at 2100, Until Discontinued, -- Do not mix with other insulins -- NOTE: This is a HIGH ALERT Medication. insulin glargine (LANTUS SOLOSTAR, Given 04/17/2018 24 Units Abdomen: LLQ BASAGLAR) injection PEN 24 Units 21:27 CDT 24 Units, Subcutaneous, AT BEDTIME DAILY, First dose on Tue04/17/18 at 2100, Until Discontinued, -- Do not mix with other insulins -- NOTE: This is a HIGH ALERT Medication. insulin glargine (LANTUS SOLOSTAR, BASAGLAR) injection PEN 28 Units 28 Units, Subcutaneous, AT BEDTIME DAILY, First dose on Tue04/18/18 at 2100, Until Discontinued, -- Do not mix with other insulins -- NOTE: This is a HIGH ALERT Medication. iopamidol 370 (ISOVUE-370) injection 100 Given 04/11/2018 100 mL mL 06:30 CDT 100 mL, Intravenous, ONCE, 1 dose, Tue04/11/18 at 0630, NOTE: This is a HIGH ALERT Medication. iron sucrose (VENOFER) injection 200 mg Given 04/13/2018 200 mg 5 mL/ hr 200 mg, Intravenous, 10 mL, Administer 08:28 CDT over 5 Minutes, DAILY, 5 doses, First dose on Tue04/11/18 at 1500, Last dose on Tue04/15/18 at 0900, IV PUSH doses of 200 mg or less over 2-5 minutes Given 04/14/2018 200 mg 5 mL/hr 08:43 CDT Given 04/15/2018 200 mg 5 mL/hr 08:31 CDT lisinopril (PRINIVIL, ZESTRIL) tablet Given 04/16/2018 2.5 mg 2.5 mg 08:23 CDT 2.5 mg, Oral, DAILY, First dose on Tue04/11/18 at 1300, Until Discontinued Given 04/17/2018 2.5 mg 08:57 CDT Given 04/18/2018 2.5 mg 08:33 CDT magnesium sulfate 1 g/D5W 100 mL IVPB Given - New 04/13/2018 1 g 100 mL/hr 1 g, Intravenous, 100 mL, Administer Bag 11:58 CDT over 60 Minutes, EVERY 1 HOUR FOR 2 DOSES, 2 doses, First dose on Tue04/13/18 at 1000, Last dose on Tue04/13/18 at 1100, Each 1gm delivers 8.1 mEq Magnsium. Given - New Bag 04/13/2018 1 g 100 mL/hr 13:16 CDT magnesium sulfate 1 g/D5W 100 mL IVPB Given - New 04/14/2018 1 g 100 mL/hr 1 g, Intravenous, 100 mL, Administer Bag 08:43 CDT over 60 Minutes, EVERY 1 HOUR FOR 2 DOSES, 2 doses, First dose on Tue04/14/18 at 0900, Last dose on Tue04/14/18 at 1000, Each 1gm delivers 8.1 mEq Magnsium. Given - New Bag 04/14/2018 1 g 100 mL/hr 10:33 CDT magnesium sulfate 1 g/D5W 100 mL IVPB Given - New 04/18/2018 1 g 100 mL/hr 1 g, Intravenous, 100 mL, Administer Bag 09:39 CDT over 1 Hours, ONCE, 1 dose, Tue04/18/18 at 0900, Each 1gm delivers 8.1 mEq Magnesium. medroxyprogesterone (proVERA) tablet 10 Given 04/18/2018 10 mg mg 11:32 CDT 10 mg, Oral, TWICE DAILY, First dose on Tue04/18/18 at 1000, Until Discontinued nystatin (NYSTOP) topical powder Given 04/17/2018 Topical, TWICE DAILY, First dose on Tue 14:16 CDT 04/12/18 at 1000, Until Discontinued, Apply to pannus Given 04/17/2018 21:30 CDT Given 04/18/2018 11:33 CDT ondansetron (ZOFRAN ODT) rapid dissolve Given 04/11/2018 8 mg tablet 8 mg 07:17 CDT 8 mg, Oral, ONCE, 1 dose, Tue04/11/18 at 0700, Place on tongue and allow to dissolve. ondansetron (ZOFRAN ODT) rapid dissolve Given 04/11/2018 8 mg tablet 8 mg 16:23 CDT 8 mg, Oral, EVERY 8 HOURS PRN, Starting Tue04/11/18 at 1557, Until Tue04/18/18 at 2116, Nausea/Vomiting PO, Place on tongue and allow to dissolve. oxyCODONE (ROXICODONE, OXY-IR) tablet 10 Given 04/12/2018 10 mg mg 08:48 CDT 10 mg, Oral, EVERY 4 HOURS PRN, Starting Tue04/11/18 at 0228, Until Tue04/13/18 at 1311, Pain PO Given 04/12/2018 10 mg 22:05 CDT Given 04/13/2018 10 mg 11:59 CDT oxyCODONE (ROXICODONE, OXY-IR) tablet Given 04/16/2018 5 mg 5-10 mg 20:56 CDT 5-10 mg, Oral, EVERY 6 HOURS PRN, Starting Tue04/13/18 at 1315, Until Tue04/18/18 at 211, Pain PO Given 04/17/2018 5 mg 08:55 CDT Given 04/17/2018 5 mg 20:30 CDT perflutren lipid microspheres (DEFINITY) Given 04/11/2018 2 Diluted mL injection 1-20 Diluted mL 10:41 CDT 1-20 Diluted mL, Intravenous, ONCE, 1 dose, Tue04/11/18 at 0945, NOTE: This is a HIGH ALERT Medication. polyethylene glycol 3350 (MIRALAX) packet 17 g 17 g (1 packet), Oral, DAILY PRN, Starting Tue04/14/18 at 1114, Until Tue04/18/18 at 2116, Constipation PO, 8.5 GRAMS=0.5 PACKET 17 GRAMS=1 PACKET 34 GRAMS=2 PACKETS potassium chloride SR (K-DUR) tablet 20 Given 04/13/2018 20 mEq mEq 11:59 CDT 20 mEq, Oral, ONCE, 1 dose, Tue04/13/18 at 0915, Do NOT break or crush tablet potassium chloride SR (K-DUR) tablet 40 Given 04/11/2018 40 mEq mEq 03:18 CDT 40 mEq, Oral, ONCE, 1 dose, Tue04/11/18 at 0300, Do NOT break or crush tablet potassium chloride SR (K-DUR) tablet 40 Given 04/12/2018 40 mEq mEq 10:22 CDT 40 mEq, Oral, ONCE, 1 dose, Tue04/12/18 at 1015, - Tablet may be dispersed in water. Place tab in 30 mL of water for 40-60 seconds. - Gently swirl until fully dispersed. If particles remain after admin, add small amount of water and admin remaining content. - DO NOT CRUSH. Tablet may be split in half. potassium chloride SR (K-DUR) tablet 40 Given 04/12/2018 40 mEq mEq 18:42 CDT 40 mEq, Oral, ONCE, 1 dose, Tue04/12/18 at 1800, Do NOT break or crush tablet senna/docusate (SENOKOT-S) tablet 2 Given 04/14/2018 2 tablets tablet 12:11 CDT 2 tablet, Oral, TWICE DAILY, First dose on Tue04/14/18 at 1115, Until Discontinued, Hold for loose stools Given 04/14/2018 2 tablets 20:09 CDT Given 04/15/2018 2 tablets 08:31 CDT sodium chloride 0.9 % infusion Given - New 04/11/2018 100 mL/hr 1,000 mL, Intravenous, at 125 mL/hr, Bag 02:07 CDT CONTINUOUS, Starting Tue04/11/18 at 0100, Until Tue04/11/18 at 0837 Dose/Rate Change 04/11/2018 125 mL/hr 03:18 CDT sodium chloride PF 0.9% injection 50 mL Given 04/11/2018 50 mL 50 mL, Intravenous, ONCE, 1 dose, Tue 06:30 CDT 04/11/18 at 0630, Intra-procedure (IR) spironolactone (ALDACTONE) tablet 25 mg Given 04/17/2018 25 mg 25 mg, Oral, TWICE DAILY, First dose on 18:46 CDT [facility] 04/13/18 at 1700, Until Discontinued, NURSING: Please educate patient and document: Avoid using salt substitutes which have a high potassium content (Nu-Salt). Given 04/18/2018 25 mg 08:34 CDT Given 04/18/2018 25 mg 17:41 CDT vitamin A & D topical ointment Given 04/12/2018 Topical, DAILY, First dose on Tue 13:51 CDT 04/12/18 at 1300, Until Discontinued, Apply to blisters on back and buttocks Given 04/16/2018 08:34 CDT Given 04/17/2018 14:15 CDT vitamins, multi w/minerals tablet 1 Given 04/16/2018 1 tablet tablet 08:23 CDT 1 tablet, Oral, DAILY, First dose on Tue04/11/18 at 1300, Until Discontinued Given 04/17/2018 1 tablet 08:57 CDT Given 04/18/2018 1 tablet 08:33 CDT warfarin (COUMADIN) tablet 5 mg Given 04/14/2018 5 mg 5 mg, Oral, AT BEDTIME DAILY, First dose 20:09 CDT on [place] 04/13/18 at 2100, Until Discontinued, NURSING: Provide patient with warfarin education leaflet and video. Do not give with cranberry juice. NOTE: This is a HIGH ALERT Medication. Given 04/15/2018 5 mg 21:07 CDT Given 04/16/2018 5 mg 20:56 CDT warfarin (COUMADIN) tablet 7.5 mg Given 04/17/2018 7.5 mg 7.5 mg, Oral, AT BEDTIME DAILY, First 20:28 CDT dose on Tue04/17/18 at 2100, Until Discontinued, NURSING: Provide patient with warfarin education leaflet and video. Do not give with cranberry juice. NOTE: This is a HIGH ALERT Medication. warfarin, pharmacy to manage PER PHARMACY, 999 doses, Starting Tue04/17/18 at 1232, Until Tue04/18/18 at 2116, Warfarin Indication: DVT/PE/acute thromboembolism zinc sulfate capsule 220 mg Given 04/11/2018 220 mg 220 mg, Oral, DAILY, 14 doses, First 13:58 CDT dose on Tue04/11/18 at 1300, Last dose on Tue04/24/18 at 0900, Each cap delivers 50mg elemental zinc. Given 04/12/2018 220 mg 08:42 CDT Given 04/14/2018 220 mg 08:42 CDT in this encounter
--- OUTSIDE RECORDS SUMMARY | 2018-05-08 21:22 | XMS REPORT | Encounter Summary ---
Author Author [facility] Organization [facility] Address Unknown Phone Unavailable Care Team Providers Care Conference Specialist Name Role Phone No Pcp, Na PCP Unavailable Dave Lorenzana MD PCP Encounter Details Date Type Department Care Team Description 04/13/2018 Procedure [facility] [address] [place] [address] Social History Tobacco Use Types Packs/Day Years [...]
--- OUTSIDE RECORDS SUMMARY | 2018-05-08 21:22 | XMS REPORT | Encounter Summary ---
Author Author [facility] Organization [facility] Address Unknown Phone Unavailable Care Team Providers Care Alumni Relations Coordinator Name Role Phone No Pcp, Na PCP Unavailable Dave Lorenzana MD PCP Encounter Details Date Type Department Care Team Description 04/17/2018 Pharmacy Visit [facility] [address] [place] [id number] Social History Tobacco Use Types Packs/Day Years [...]
--- OUTSIDE RECORDS SUMMARY | 2018-05-08 21:24 | XMS REPORT | Encounter Summary ---
Author Author [facility] Organization [facility] Address Unknown Phone Unavailable Care Team Providers Care Route Delivery Service Driver Name Role Phone No Pcp, Na PCP Unavailable Dave Lorenzana MD PCP Encounter Details Date Type Department Care Team Description 04/11/2018 Procedure Pass Medicine Telemetry [address] [place] [address] Social History Tobacco Use Types Packs/Day Years [...]
--- OUTSIDE RECORDS SUMMARY | 2018-05-08 21:24 | XMS REPORT | Encounter Summary ---
Author Author [facility] Organization [facility] Address Unknown Phone Unavailable Care Team Providers Care Child Nutrition Manager Name Role Phone No Pcp, Na PCP Unavailable Dave Lorenzana MD PCP Encounter Details Date Type Department Care Team Description 04/11/2018 Procedure Pass Medicine Telemetry [address] [facility] [place] [address] Social History Tobacco Use Types Packs/Day Years [...]
--- OUTSIDE RECORDS SUMMARY | 2018-05-08 21:24 | XMS REPORT | Encounter Summary ---
Author Author [facility] Organization [facility] Address Unknown Phone Unavailable Care Team Providers Care Pigment Furnace Tender Name Role Phone No Pcp, Na PCP Unavailable Dave Lorenzana MD PCP Encounter Details Date Type Department Care Team Description 04/11/2018 Procedure Pass Medicine Telemetry [address] [place] [address] Social History Tobacco Use Types Packs/Day Years [...]
--- OUTSIDE RECORDS SUMMARY | 2018-05-08 21:24 | XMS REPORT | Encounter Summary ---
Author Author [facility] Organization [facility] Address Unknown Phone Unavailable Care Team Providers Care Software Packager Name Role Phone No Pcp, Na PCP Unavailable Encounter Details Date Type Department Care Team Description 04/10/2018 Hospital [facility] Radiology [address] [place] [address] Social History Tobacco Use Types Packs/Day Years Used Date Never Assessed Sex Assigned at Date Recorded Not on file as of this encounter Medications at Time of Discharge [...] daily. Further scripts to be given by PCP/DATA ENTRY REPRESENTATIVE metFORMIN (GLUCOPHAGE) Take 500 mg by mouth [...] tablet 0 2017 mg tablet bedtime daily. atorvastatin (LIPITOR) 80 Take 1 tablet by mouth 30 tablet 0 201704/18/2018 mg tablet daily. carvedilol (COREG) 3.125 Take 1 tablet by mouth 60 tablet 0 201704/18/2018 mg tablet twice daily. Take with food. enoxaparin (LOVENOX) 80 Inject 0.79 mL under the 14 Syringe 0 201704/18/2018 mg syrg skin twice daily. enoxaparin (LOVENOX) 80 Inject 0.8 mL under the 14 Syringe 0 201704/18/2018 mg syrg skin twice daily. furosemide (LASIX) 40 mg Take 1 tablet by mouth 30 tablet 0 201704/18/2018 tablet daily. HYDROcodone/acetaminophen Take 1 tablet by mouth 04/18/2018 (NORCO) 7.5/325 mg tablet three times daily insulin aspart U-100 Inject 20 Units under the 04/18/2018 (NOVOLOG FLEXPEN) 100 skin three times daily unit/mL injection PEN with meals. lisinopril (PRINIVIL, Take 1 tablet by mouth 30 tablet 0 04/19/2018 04/18/2018 ZESTRIL) 2.5 mg tablet daily. medroxyprogesterone Take 1 tablet by mouth 60 tablet 0 04/18/2018 (PROVERA) 10 mg tablet twice daily. Further scripts to be given by PCP/DATA ENTRY REPRESENTATIVE nystatin (NYSTOP) 100,000 Apply to pannus twice 15 g 0 04/18/2018 unit/g topical powder daily spironolactone Take 1 tablet by mouth 60 tablet 0 04/18/20182017 (ALDACTONE) 25 mg tablet twice daily. Take with food. warfarin (COUMADIN) 7.5 Take 1 tablet by mouth at 30 tablet 0 201704/18/2018 mg tablet bedtime daily. as of this encounter Plan of Treatment Not on fileas of this encounter Visit Diagnoses Not on filein this encounter
--- OUTSIDE RECORDS SUMMARY | 2018-05-08 21:24 | XMS REPORT | Encounter Summary ---
Author Author [facility] Organization [facility] Address Unknown Phone Unavailable Care Team Providers Care Balance Staff Inspector Name Role Phone No Pcp, Na PCP Unavailable Encounter Details Date Type Department Care Team Description 04/13/2018 Surgery Cardiac Catheterization Cj Whitaker MD ANGIOGRAPHY CORONARY Laboratory [address] ARTERY WITH RIGHT HEART [address] [place] [address] [place] [address] [phone] Social History Tobacco Use Types Packs/Day Years [...] Attending Physician: Mattie Dela Cruz MD Service: [place] [id number] Physician Summary completed by: Mattie Dela Cruz MD Reason for hospitalization: 50 y.o. female 48 yo F hx of Tobacco Abuse, Uncontrolled DM2, Microcytic Anemia of unknown origin, Methamphetamine Abuse presented to [facility] on the evening of 04/10/18 as a transfer from [facility] in [place], [place] after CTA of the Chest showed [...] iron-10, ferritin-5, K-3.4, Na-135, glucose-359, albumin-3.3, magnesium-1.5, arg8i-76.5, LDH-281, ALP-122, UDS + for benzodiazepines. BNP-2,773 [...] during this hospitalization: Betina Shaffer a 48 y.o.bzakyv78 yo F hx of Tobacco Abuse, Uncontrolled DM2 , Microcytic Anemia of unknown origin, Methamphetamine Abuse presented to [facility] on the evening of 04/10/18 as a transfer from [facility] in [place], [place] after CTA of the Chest showed a Left Ventricular Mass. Large LV Thrombus - Large Filling Defect in the Left Ventricle 3.7x 2.7x 3.7cm visible on CTA Chest at [facility] - CT Chest with contrast 04/12: Left [...] or fluid collection noted on CT - Steam Fitter consulted - s/p pelvic exam, endometrial biopsy and pap smear 04/14. Patient refused IUD endometrial biopsy: Minute fragments of benign endometrial epithelium and endocervical glandular mucosa. No evidence of hyperplasia, dysplasia or malignancy identified. -started on Provera 10mg BID to help with bleeding per SUPERINTENDENT CONSTRUCTION recs -pt needs SUPERINTENDENT CONSTRUCTION follow-up in 1-2 months, pt needs to call [phone] to get an appointment scheduled Sores/Blisters on [...] discussed pt with cardiology attendings today and SUPERINTENDENT CONSTRUCTION resident, discussed pt with pharmacist and NCM about discharge planning, NCM checked for lovenox copay PCP Yani Patricio [place], [place] Condition at Discharge: Stable Discharge Diagnoses: Hospital Problems Active Problems Mass of heart Acute systolic CHF (congestive heart failure) (HCC) LV (left ventricular) mural thrombus without AZ Iron deficiency anemia Polysubstance abuse DM (diabetes [...] meds, diet, INR check, PCP, cardiology and SUPERINTENDENT CONSTRUCTION follow-up as recommended/scheduled Warfarin Information WARFARIN INFORMATION [...] or stopping any medications. This includes prescription, uksv-yuv-snhekxk, natural supplements , vitamins, and minerals. Many [...] and restaurant foods. Call your doctor (your medical case manager, if you have one) if: -you gain more than 2 pounds in 24 hours. -you gain more than 5 pounds in 1 week. -any of your symptoms get worse Do NOT wait to let your doctor know about these changes. Questions About Your Stay For questions or concerns regarding your hospital stay: - DURING BUSINESS HOURS (8:00 AM - 4:30 PM): Call [phone] and asked to be transferred to your discharge attending physician. - AFTER BUSINESS HOURS (4:30 PM - 8:00 AM, on weekends, or holidays): Call [phone] and ask the splicer machine operator to page the on-call doctor for the discharge attending physician. Discharging attending physician: MATTIE DELA CRUZ [[id number]] Cardiac Diet Limiting unhealthy fats and cholesterol [...] home, you can call a dietitian at [phone]. Return Appointment [facility] Provider ELIZABETH SOLOMON [[id number]] Location [facility] Appointment date: 05/02/2018 Appointment time: 3:30 PM Return Appointment Pt needs to follow-up with her PCP in 1 week for routine post hospital follow- up and PCP to monitor INR closely Provider YANI LORENZANA [[id number]] Return Appointment Pt needs to follow-up with SUPERINTENDENT CONSTRUCTION in 1-2 months, pt needs to call [phone] to get an appointment to be scheduled [...] 5 pounds in a week, call your medical case manager immediately. EARLY REPORTING OF THESE CHANGES IS [...] daily. Further scripts to be given by PCP/SUPERINTENDENT CONSTRUCTION Qty: 60 tablet, Refills: 0 PRESCRIPTION TYPE: [...] 2018 2:30 PM CDT Nurse Visit with [facility] HF NURSE [facility] [address] [place] [id number] May 02, 2018 3:00 PM CDT Clinical Support with [facility] HF PHARM COUNSELOR [facility] ([facility] [address] [place] [id number] May 02, 2018 3:30 PM CDT Hospital Follow Up with Elizabeth Solomon APRN [facility] ([facility] [address] [place] [address] Pending items needing follow up: 1. PCP to follow-up on INR on 04/20/18 and adjust coumadin dose accordingly 2. Pt needs SUPERINTENDENT CONSTRUCTION follow-up in 1-2 months, pt needs to call [phone] to get an appointment scheduled 3. Right lower lobe nodule-Noted on CT. Will need follow-up as OP with PCP Signed: Mattie Dela Cruz MD 04/18/2018 cc: Primary Care Physician: Yani Lorenzana Verified Referring physicians: Self, Referral Additional provider(s): [facility] Vivien Frias SUPERINTENDENT CONSTRUCTION in this encounter Medications at Time of [...] daily. Further scripts to be given by PCP/SUPERINTENDENT CONSTRUCTION metFORMIN (GLUCOPHAGE) Take 500 mg by mouth [...] (HCC) LV (left ventricular) mural thrombus without AZ Iron deficiency anemia Polysubstance abuse DM (diabetes mellitus) (HCC) Fibroids Betina Baron is a 48 y.o. female 48 yo F hx of Tobacco Abuse, Uncontrolled DM2, Microcytic Anemia of unknown origin, Methamphetamine Abuse presented to [facility] on the evening of 04/10/18 as a transfer from [facility] in [place], [place] after CTA of the Chest showed a Left Ventricular Mass. Large LV Thrombus - Large Filling Defect in the Left Ventricle 3.7x 2.7x 3.7cm visible on CTA Chest at [facility] - CT Chest with contrast 04/12: Left [...] or fluid collection noted on CT - Steam Fitter consulted - s/p pelvic exam, endometrial biopsy and pap smear 04/14. Patient refused IUD endometrial biopsy: Minute fragments of benign endometrial epithelium and endocervical glandular mucosa. No evidence of hyperplasia, dysplasia or malignancy identified. -started on Provera 10mg BID to help with bleeding per SUPERINTENDENT CONSTRUCTION recs -pt needs SUPERINTENDENT CONSTRUCTION follow-up in 1-2 months, pt needs to call [phone] to get an appointment scheduled Sores/Blisters on [...] discussed pt with cardiology attendings today and SUPERINTENDENT CONSTRUCTION resident, discussed pt with pharmacist and NCM about discharge planning, NCM checked for lovenox copay [facility]CP [facility],[place] [facility] Private F, pager [phone] Subjective Betina Baron is a 48 y.o. [...] Skin - Excoriations on back and extremities QUANTITATIVE ASSOCIATE: non focal grossly Lab Review Pertinent labs reviewed Point of Care Testing (Last 24 hours) Glucose: (!) 253 (04/18/18 0511) POC Glucose (Download): (!) 263 (04/18/18 0839) Radiology and other Diagnostics Review: Pertinent radiology reviewed. none from today Mattie Dela Cruz MD Pager [phone] * Akilah Ponce RN - 04/18/2018 7:30 [...] -Will email for follow-up appt with [facility] Machinist First Class, patient may also call to schedule or with any questions - [phone] Signed, Caitlyn Krueger MD PGY-1, Obstetrics and Gynecology Discussed with Dr. Prado Associated attestation - Vivien Prado MD - 04/18/2018 10:00 AM CDT Attending Attestation I was personally present for the rodriguez portions of the E/M visit, discussed case with resident and concur with resident documentation of history, physical exam, assessment, and treatment plan unless otherwise noted. Vivien Prado MD * Akilah Ponce RN - 04/18/2018 4:04 AM CDT Patient [...] Hygiene: shower today Follow up: Discontinued heparin drip today and lovenox started. Steam Fitter consented pt for uterine artery embolization pending clearance by cardiology and primary team. * Shala Lin, NELLY - 04/17/2018 7:46 PM CDT Formatting of [...] home, treat abnormal uterine bleeding. * Concetta Veliz PHARMD - 04/17/2018 12:42 PM CDT Formatting of [...] no longer be managed by Pharmacy Concetta Veliz PHARMD 04/17/2018 * Mattie Dela Cruz MD - 04/17/2018 9:20 AM CDT Formatting of this note may be different from the original. General Progress Note Name: Betina Baron Today's Date: 04/17/2018 Admission Date: 04/10/2018 LOS: 6 days Assessment/Plan: Active Problems: Mass of heart Acute systolic CHF (congestive heart failure) (HCC) LV (left ventricular) mural thrombus without AZ Iron deficiency anemia Polysubstance abuse DM (diabetes mellitus) (HCC) Fibroids Betina Baron is a 48 y.o. female 48 yo F hx of Tobacco Abuse, Uncontrolled DM2, Microcytic Anemia of unknown origin, Methamphetamine Abuse presented to [facility] on the evening of 04/10/18 as a transfer from [facility] in [place], [place] after CTA of the Chest showed a Left Ventricular Mass. Large LV Thrombus - Large Filling Defect in the Left Ventricle 3.7x 2.7x 3.7cm visible on CTA Chest at [facility] - CT Chest with contrast 04/12: Left [...] or fluid collection noted on CT - Steam Fitter consulted - s/p pelvic exam, endometrial biopsy [...] of Internal Medicine Med Private F, pager [phone] Subjective Betina Baron is a 48 y.o. [...] Skin - Excoriations on back and extremities QUANTITATIVE ASSOCIATE: non focal grossly Lab Review Pertinent labs reviewed Point of Care Testing (Last 24 hours) Glucose: (!) 187 (04/17/18622) POC Glucose (Download): (!) 206 (04/17/18 1737) Radiology and other Diagnostics Review: Pertinent radiology reviewed. done since admission Mattie Dela Cruz MD Pager [phone] * Ofe Kulkarni RN - 04/16/2018 7:06 [...] (HCC) LV (left ventricular) mural thrombus without AZ Iron deficiency anemia Polysubstance abuse DM (diabetes mellitus) ([facility]) Fibroids 1. Severe NICM 2. Massive LV [...] (HCC) LV (left ventricular) mural thrombus without AZ Iron deficiency anemia Polysubstance abuse DM (diabetes mellitus) (HCC) Fibroids Betina Baron is a 48 y.o. female 48 yo F hx of Tobacco Abuse, Uncontrolled DM2, Microcytic Anemia of unknown origin, Methamphetamine Abuse presented to [facility] on the evening of 04/10/18 as a transfer from [facility] in [place], [place] after CTA of the Chest showed a Left Ventricular Mass. Large LV Thrombus - Large Filling Defect in the Left Ventricle 3.7x 2.7x 3.7cm visible on CTA Chest at [facility] - CT Chest with contrast 04/12: Left [...] or fluid collection noted on CT - Steam Fitter consulted - s/p pelvic exam, endometrial biopsy [...] Mahan MD Department of Internal Medicine Med [facility], pager [phone] Subjective Betina Baron is a 48 y.o. [...] 2105) Vitals: 04/14/18 0535 04/15/18 0624 04/16/18 06 Weight: 90.7 kg (199 lb 15.3 oz) 84.3 kg (185 lb 13.6 oz) 81.5 kg (179 lb 10.8 oz) Intake/Output Summary: (Last 24 hours) Intake/Output Summary (Last 24 hours) at 04/16/18819 Last data filed at 04/16/18 08 Gross per 24 hour Intake 1324 ml [...] 0501) POC Glucose (Download): (!) 173 (04/16/18 7409) Radiology and other Diagnostics Review: Pertinent radiology reviewed. Tay Mahan MD Pager [phone] * Nichelle Bloom RN - 04/16/2018 6:57 [...] (HCC) LV (left ventricular) mural thrombus without AZ Iron deficiency anemia Polysubstance abuse DM (diabetes mellitus) ([facility]) Fibroids 1. Severe NICM 2. Massive LV [...] Signs: 24 Hour Range BP: 122/74 (04/15 0756) Temp: 36.4 C (97.5 F) (04/15 0756) Pulse: 85 (04/15 0756) Respirations: 16 PER MINUTE (04/15 075) SpO2: 97 % (04/15 756) O2 Delivery: [...] (HCC) LV (left ventricular) mural thrombus without AZ Iron deficiency anemia Polysubstance abuse DM (diabetes mellitus) (HCC) Fibroids Betina Baron is a 48 y.o. female 48 yo F hx of Tobacco Abuse, Uncontrolled DM2, Microcytic Anemia of unknown origin, Methamphetamine Abuse presented to [facility] on the evening of 04/10/18 as a transfer from [facility] in [place], [place] after CTA of the Chest showed a Left Ventricular Mass. Large LV Thrombus - Large Filling Defect in the Left Ventricle 3.7x 2.7x 3.7cm visible on CTA Chest at [facility] - CT Chest with contrast 04/12: Left [...] or fluid collection noted on CT - Steam Fitter consulted - s/p pelvic exam, endometrial biopsy [...] Mahan MD Department of Internal Medicine Med [facility], pager [phone] Subjective Betina Baron is a 48 y.o. [...] Signs: 24 Hour Range BP: 122/74 (04/15 0756) Temp: 36.4 C (97.5 F) (04/15 0756) Pulse: 85 (04/15 0756) Respirations: 16 PER MINUTE (04/15 0756) SpO2: 97 % (04/15 0756) O2 Delivery: None (Room Air) (04/15 756) [...] hours) Intake/Output Summary (Last 24 hours) at 04/15/18937 Last data filed at 04/15/18 0903 Gross [...] Pertinent radiology reviewed. Tay Mahan MD Pager [phone] * Vy Gregorio RN - 04/15/2018 5:27 AM CDT [...] upon auscultation, bilaterally GI/: voids, last BM: SWIMMING COACH OR INSTRUCTOR- bowel regiment ordered Nutrition: patient is on [...] above evaluation and clinical judgment. * Keturah Burciaga OT - 04/14/2018 2:22 PM CDT OCCUPATIONAL THERAPY NO TREATMENT NOTE The patient was not seen due to: Patient not available; preparing for procedure. Attempted to see patient 1 time(s) Therapist: Keturah Pitt, OTR [id number] Date: 04/14/2018 * Darling Mosley - 04/14/2018 11:21 AM CDT CLINICAL NUTRITION Clinical Nutrition Assessment Summary Nutrition Assessment of Patient: BMI Categories Adult: Over Weight: 25-29.9 Malnutrition Assessment: Does not meet criteria Current Oral Intake: Adequate Estimated Calorie Needs: 5050-2311 (25-28 kcal/kg desired adjusted wt of 75.9 kg ) Estimated Protein Needs: 91-114 (1.2-1.5 g/kg per desired adjusted wt of 75.9 kg ) Oral Diet Order: Cardiac, Diabetic 2123-9443 Kcal/day (60 g Carb/meal, 30 g Carb /HS snack), 1500 mL/Day Fluid Restriction Betina Shaffer a 48 y.o.oeaoip32 yo F hx of Tobacco Abuse, Uncontrolled DM2, Microcytic Anemia of unknown origin, Methamphetamine Abuse presented to [facility] on the evening of 04/10/18 as a transfer from [facility] in [place], [place] after CTA of the Chest showed a Left Ventricular Mass. RD was following due to stage 2 pressure injury on left buttocks which has been removed from chart. RD will stop vitamin C and zinc. Pt reports eating well SWIMMING COACH OR INSTRUCTOR, reports good appetite, and denies N/V/D/C. Pt has been eating 75-100% of meals this admission. Noted no BM since SWIMMING COACH OR INSTRUCTOR, spoke to RN. Pt is unsure of [...] Time Frame: Throughout Stay Status: Met Darling Mosley RD, LD *2908 * Catherine Ware MD - 04/14/2018 11:10 [...] MD Obstetrics and Gynecology, PGY4 Pager - [phone] * Concetta Mccrary MD - 04/14/2018 10:07 AM CDT Formatting of this note may be different from the original. General Progress Note Name: Betina Baron Today's Date: 04/14/2018 Admission Date: 04/10/2018 LOS: 3 days Assessment/Plan: Active Problems: Mass of heart Acute systolic CHF (congestive heart failure) (HCC) LV (left ventricular) mural thrombus without AZ Iron deficiency anemia Polysubstance abuse DM (diabetes mellitus) (HCC) Fibroids Betina Baron is a 48 y.o. female 48 yo F hx of Tobacco Abuse, Uncontrolled DM2, Microcytic Anemia of unknown origin, Methamphetamine Abuse presented to [facility] on the evening of 04/10/18 as a transfer from [facility] in [place], [place] after CTA of the Chest showed a Left Ventricular Mass. Large LV Thrombus - Large Filling Defect in the Left Ventricle 3.7x 2.7x 3.7cm visible on CTA Chest at [facility] - CT Chest with contrast 04/12: Left [...] or fluid collection noted on CT - Steam Fitter consulted - planning for pelvic exam, pap, [...] Betina Baron is a 48 y.o. female. Reports [...] mL IV infusion (dbl conc) 2,222 Units/hr (04/14/18740) PRN and Respiratory Meds:acetaminophen Q4H PRN, ondansetron [...] 0328) POC Glucose (Download): (!) 216 (04/14/18 3528) Radiology and other Diagnostics Review: Pertinent radiology reviewed. Concetta Mccrary MD Pager [phone] * Kay Parsons MD - 04/14/2018 9:53 [...] (HCC) LV (left ventricular) mural thrombus without AZ Iron deficiency anemia Polysubstance abuse DM (diabetes [...] Intensity Pain Scale 0-10 (Pain 1): 7 (04/13/182039) Vitals: 04/11/18 1041 04/13/18 0853 04/14/18 0535 [...] Rx *Higher points indicate higher acuity. Therapist: RT Rod Date: 04/14/2018 Rodriguez AC=Airway clearance AM=Aerosolized medication BA=[place] aerosol DB&C=Deep breathe & cough FEV1=Forced expiratory volume in first second) IC=Inspiratory capacity LE=Lung expansion MDI=Metered dose inhaler Neb=Nebulizer O2=Oxygen Oxim=Oximetry PEFR=Peak expiratory flow rate SUPERVISOR GROWER=Rapid Response Team * Vy Gregorio RN - [...] hospitalization): Get out of here * Princess Acosta RN - 04/13/2018 1:[address] [...] (HCC) LV (left ventricular) mural thrombus without AZ Iron deficiency anemia Polysubstance abuse DM (diabetes mellitus) (HCC) Fibroids Betina Baron is a 48 y.o. female 48 yo F hx of Tobacco Abuse, Uncontrolled DM2, Microcytic Anemia of unknown origin, Methamphetamine Abuse presented to [facility] on the evening of 04/10/18 as a transfer from [facility] in [place], [place] after CTA of the Chest showed a Left Ventricular Mass. Large LV Thrombus - Large Filling Defect in the Left Ventricle 3.7x 2.7x 3.7cm visible on CTA Chest at [facility] - CT Chest with contrast 04/12: Left [...] or fluid collection noted on CT - Steam Fitter consulted - planning for pelvic exam, pap, EMB, and likely IUD - Wound care consulted Right lower lobe nodule - Noted on CT. Will need follow-up DM2 - non compliant with insulin at home - prescribed Lantus 30 QHS and Novolog 20 with meals - Metformin held - hemoglobin A1c 10 - started with 10 units of lantus - adjust as needed - [facility] Methamphetamine Abuse/Benzo Abuse; Tobacco Abuse - [...] (LASIX) injection 60 mg 60 mg Intravenous BID(-) insulin aspart U-100 (NOVOLOG FLEXPEN) injection PEN [...] (ALDACTONE) tablet 25 mg 25 mg Oral BID(-) vitamin A & D topical ointment Topical [...] Pertinent radiology reviewed. Concetta Mccrary MD Pager [phone] * Concetta Veliz PHARMD - 04/13/2018 12:16 PM CDT Formatting [...] be managed by Pharmacy Concetta Veliz, JYOTI 04/13/2018 * Bi Mix, PT - 04/13/2018 [...] Bi Mix, PT Date: 04/13/2018 * Princess Acosta RN - 04/13/2018 8:47 AM CDT 0845- [...] IV infusion (dbl conc) 2,122 Units/hr (04/13/18 0726) PRN and Respiratory Meds:ondansetron Q8H PRN, oxyCODONE Q4H PRN Objective Vital Signs: Last Filed Vital Signs: 24 Hour Range BP: 108/56 (04/13 820) Temp: 36.5 C (97.7 F) (04/13 820) Pulse: 86 (04/13 820) Respirations: 18 PER MINUTE (04/13 820) SpO2: 98 % (04/13 820) O2 Delivery: None (Room Air) (04/13 820) BP: (100-133)/(47-78) Temp: [36.3 C (97.3 F)-36.8 [...] Platelet Estimate SLT INC Absolute Neutrophil Count Manual 7.56 (H) 1.8 - 7.0 K/UL MAGNESIUM Collection Time: 04/13/18 6:35 AM Result Value Ref Range Magnesium 1.6 1.6 - 2.6 mg/dL POC GLUCOSE Collection Time: 04/13/18 8:18 AM Result Value Ref Range Glucose, POC 198 (H) 70 - 100 MG/DL Tele sinus rhythm. Kay Parsons MD * Vy Gregorio, RN - 04/12/2018 11:12 PM CDT Pt to [...] and shower completed Follow up: NPO at [facility] for cardiac cath 04/13, discharge plan ongoing. * Joanna Manley RN - 04/12/2018 5:01 PM CDT 1633-patient diaphoretic, c/o of shakiness, sleepy but easily arousable when called on. BS 56; given coke. Tsering Jiang, ALTERATIONS SEWER notified. Continue to follow hypoglycemic protocol. 1653- BS 61, patient still c/o of shakiness. Given coke and crackers/ peanutbutter. 1715- BS 83. Will continue to monitor. * Keturah Burciaga, OT - 04/12/2018 2:30 PM CDT Formatting of this note may be different from the original. OCCUPATIONAL THERAPY ASSESSMENT NOTE Patient Name: Betina Baron Room/Bed: [id number] Admitting Diagnosis: mass left ventricle Mass of heart Past Medical History: Diagnosis Date DM (diabetes mellitus) (HCC) 48 y.o.ptmobk17 yo F hx of Tobacco Abuse, Uncontrolled DM2, Microcytic Anemia of unknown origin, Methamphetamine Abuse presented to [facility] on the evening of 04/10/18 as a transfer from [facility] in [place], [place] after CTA of the Chest showed [...] Home Equipment: Wheelchair-manual Prior Function Level Of [place]: Independent with ADLs and functional transfers;Needed assistance [...] or to bathroom. Therapist: Keturah Pitt, OTR [id number] Date: 04/12/2018 * Kay Parsons MD - [...] deficiency anemia due to bleeding fibroids - Steam Fitter following. Considering mirena IUD. Getting venofer, day 2. 3. Severe cardiomyopathy - Continue coreg and lisinopril for now. If renal function decreases or UOP decreases, may need to hold coreg for now and diurese to euvolemia. Needs complaint specialist consult for cardiac/diabetic diet. Will add spironolactone tomorrow. Give an additional 40 mg IV lasix now. Keep K >4. Repeat chemistry this afternoon. 4. Elevated cardiac enzymes - likely due to a supply demand mismatch. No acute coronary symptoms. Plan for left and right heart cath tomorrow. 5. Uncontrolled DM - dietary noncompliance. Snickers bar and chips at bedside. Consider critical care educator 6. History of medication noncompliance I stressed [...] (LASIX) injection 40 mg 40 mg Intravenous BID(9-17) furosemide (LASIX) injection 40 mg 40 mg [...] (04/12 745) O2 Delivery: Nasal Cannula (04/12 0850) Height: 180.3 cm (5' 11") (04/11 104) BP: (96-131)/(58-82) Temp: [36.3 C (97.4 F)-37 [...] of unknown origin, Methamphetamine Abuse presented to [facility] on the evening of 04/10/18 as a transfer from [facility] in [place], [place] after CTA of the Chest showed a Left Ventricular Mass. Left ventricular mass which is most likely an LV thrombus - Large Filling Defect in the Left Ventricle 3.7x 2.7x 3.7cm visible on CTA Chest at [facility] - CT with contrast 04/12: Left ventricular [...] pfannenstial incision from C/S -Transvaginal ultrasound pending -TRUCK REPAIR SUPERVISOR consult. Plan for IUD - will hold [...] (04/12 745) Height: 180.3 cm (71") (04/11 104) BP: (96-131)/(58-82) Temp: [36.3 C (97.4 F)-37 [...] (Last 24 hours) Glucose: (!) 216 (04/12/18 7381) POC Glucose (Download): (!) 209 (04/12/18 9161) Radiology and other Diagnostics Review: Pertinent radiology reviewed. Tiana Randolph MD Pager [phone] * Joanna Manley RN - 04/12/2018 8:04 [...] Current Oral Intake: NPO Estimated Calorie Needs: 4527-8389 (25-28 kcal/kg desired adjusted wt of 75.9 kg ) Estimated Protein Needs: 91-114 (1.2-1.5 g/kg per desired adjusted wt of 75.9 kg ) Oral Diet Order: NPO Betina sorensen 48 y.o.tuvphf89 yo F hx of Tobacco Abuse, Uncontrolled DM2 , Microcytic Anemia of unknown origin, Methamphetamine Abuse [facility] [facility] on the evening of 04/10/18 as a transfer from [facility] in [place], [place] after CTA of the Chest showed a Left Ventricular Mass. RD following due to stage 2 pressure injury on left buttocks. Pt reports eating well SWIMMING COACH OR INSTRUCTOR, reports good appetite, and denies N/V/D/C. Pt [...] protein supplements as needed. Started multivitamin, zinc u91hocc, and vitamin C to help with wound [...] Cell Crisis OR Anemia (<10) OR Acute AZ (02 & oxim) Patient Assessment * Respiratory [...] Date: 04/11/2018 Rodriguez AC=Airway clearance AM=Aerosolized medication BA=[place] aerosol DB&C=Deep breathe & cough FEV1=Forced expiratory volume in first second) IC=Inspiratory capacity LE=Lung expansion MDI=Metered dose inhaler Neb=Nebulizer O2=Oxygen Oxim=Oximetry PEFR=Peak expiratory flow rate SUPERVISOR GROWER=Rapid Response Team * Noreen Mccullough RN - [...] 2.7x 3.7cm visible on CTA Chest at [facility]. Scan was ordered for an elevated [...] Consult for AM of 04/11/18. 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 Restarted SWIMMING COACH OR INSTRUCTOR Levemir 40 units qhs and SS Insulin. Holding SWIMMING COACH OR INSTRUCTOR Metformin 5. Tobacco Abuse -30 pack year history of smoking and reportedly still smoking 1 ppd Plan: >Nicotine patch prn 6. 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 Code Status: Full Code Allergies: Penicillin and Morphine DVT PPx: Awaiting labs, but will likely restart Heparin gtt for possible LV Thrombus vs Mass Diet: NPO IVF: NS @125cc/hr yassine Cervantes DO PGY-1, Med Teaching Service Page [phone] with questions Patient seen and discussed with Senior Resident. __ Primary Care Physician: No primary care provider on file. Chief Complaint: LV Mass vs Thrombus and Diffuse Abdominal Pain History of Present Illness: Betina Baron is a 48 y.o. female 48 yo F hx of Tobacco Abuse, Uncontrolled DM2, Microcytic Anemia of unknown origin, Methamphetamine Abuse presented to [facility] on the evening of 04/10/18 as a transfer from [facility] in [place], [place] after CTA of the Chest showed [...] her to come to the hospital in [place]. Patient denied any chest pain or palpitations. 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 Cervantes's note Momo Chakraborty MD Pager [phone] in this encounter Procedure Notes * Cj Whitaker MD - 04/13/2018 10:30 AM CDT Associated Order(s): CARDIAC CATH REPORT Formatting of this note may be different from the original. [facility] CARDIAC CATHETERIZATION REPORT Page 2 BETINA Adhikari : 1970 KU#: [id number] [facility] MR #/Billing ID #: [id number] / [id number] DATE: 04/13/2018 PATIENT CARE REPRESENTATIVE: Cj Whitaker MD DICTATING PROVIDER: Cj Whitaker [...] prepped in the usual aseptic technique. A 5-South African sheath was placed into the right common femoral artery under local anesthesia under fluoroscopic examination. An 8-[place] African sheath was placed in the right common [...] right heart cardiac catheterization by a balloon-tipped [place] -Liza catheter. This was floated via the right femoral venous sheath. Hemodynamic measurements of the right heart were obtained. Cardiac output was measured by thermodilution method. The [place]-Liza catheter was then removed. Sheaths were left [...] AORTOGRAM: Aortogram was obtained in 30 degree SWEDISH projection. The aortogram reveals a single left [...] continue IV diuresis. Cj Whitaker MD AM/MedQ /[id number] P cc: - REFERRAL SELF MD Cj Santa MD in this encounter Consult Notes * Clemente Sam MD - 04/17/2018 10:46 AM CDT Formatting of this note may be different from the original. Cardiology Progress Note Betina Baron Admission Date: 04/10/2018 LOS: 6 days Assessment/Plan: Active Problems: Mass of heart Acute systolic CHF (congestive heart failure) (HCC) LV (left ventricular) mural thrombus without AZ Iron deficiency anemia Polysubstance abuse DM (diabetes [...] IV infusion (dbl conc) 2,022 Units/hr (04/17/18 9804) PRN and Respiratory Meds:acetaminophen Q4H PRN, ondansetron [...] reported that she gets her insulin from [facility] in [place] without any issues. 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 Unsure of compliance. HgbA1c is 10.5%. Will continue to monitor. Appreciate consult on this patient. If any further needs please consult diabetic nurse educators (Team pager [phone]) Sonia Wyman RN, MSN, CMSRN, CDE Pager: [phone] 08:00-4:30 weekdays, If no response, please call team pager ([phone]) Office: [phone] Diabetic Education Team office ([phone]) * Sade Chung RN - 04/12/2018 11:36 [...] Yes 04/12/2018 12:00 AM Wound Base Assessment Dry;Moist;[place];Purple 04/12/2018 11:00 AM Surrounding Skin Assessment Intact [...] Yes 04/12/2018 12:00 AM Wound Base Assessment Moist;[place] 04/12/2018 11:00 AM Surrounding Skin Assessment Intact [...] Yes 04/12/2018 12:00 AM Wound Base Assessment Moist;[place];Red 04/12/2018 8:50 AM Surrounding Skin Assessment Excoriated [...] old Wound Description (Comments): Wound Base Assessment Moist;[place] 04/12/2018 11:00 AM Surrounding Skin Assessment Intact [...] Chung RN, BSN Wound /Ostomy Team Pager [phone] After Hours Wound/Ostomy team pager [phone] * Kay Sabillon MD - 04/11/2018 5:08 PM CDT Associated Order(s): CONSULT CARDIOTHORACIC SURGERY PHYSICIAN Formatting of this note may be different from the original. CTS CONSULT Date of Service: 04/11/2018 Requesting Physician: Tiana Randolph MD Consulting Physician: Adan Ordonez MD Consult Performed By: Kay Sabillon MD HPI: Ms. Baron is a 48 y/o F who was transferred to [facility] from [facility] after an ER workup for increasing shortness of breath showed a left ventricular mass. She reports that she has been feeling well until about two weeks ago, when she noticed she was becoming short of breath with activity; in the last few days she reports waking up in the night trying to catch her breath. At [facility] her D-dimer was elevated and a CT chest was obtained showing moderate bilateral effusions and a mass in the left ventricular apex. She was transferred to [facility] for further workup. Echocardiogram was performed showing [...] Medical History: Diagnosis Date DM (diabetes mellitus) ([facility]) PSH: x 2, left BKA Medications: ascorbic [...] Low-High Color,UA YELLOW Turbidity,UA CLEAR CLEAR-CLEAR Specific [place]-Urine >1.050 (H) 1.003 - 1.035 pH,UA 6.0 [...] # Low-High Urine-HCG NEG Samples with Specific [place] <1.010 may result in a false negative test Specific [place] >1.030 TROPONIN-I Collection Time: 04/11/18 6:00 AM [...] 04/11/2018 3:13 PM CDT Associated Order(s): CONSULT SUPERINTENDENT CONSTRUCTION PHYSCIAN Formatting of this note may be different from the original. Gynecology Consult History and Physical Examination Betina Baron Admission Date: 04/10/2018 Assessment: 48 y.o. [id number] with left ventricular mass and fibroid w/ [...] Gynecology Please page the Gynecology pager at [phone] with any questions or concerns. Thank you [...] Illness: Betina Baron is a 48 y.o. [id number] with menorrhagia Patient difficult to arouse during [...] always sore and red. She is on [place] at home for pain of unclear origin. [...] patient is not nervous/ anxious. OB History: [id number] 2 stillborns at term 2 C/s, rest SVDs Steam Fitter History: LMP: 1 week ago Pap: Unsure STD: None Not currently sexually active PmHx: Past Medical History: Diagnosis Date DM (diabetes mellitus) ([facility]) Newly diagnosed LV thrombus PsHx: C/S x [...] Vitals: 04/11/18 0511 04/11/18 0751 04/11/18 1041 05/15/18 1130 BP: 123/68 130/78 131/77 Pulse: 86 [...] Range Color,UA YELLOW Turbidity,UA CLEAR CLEAR-CLEAR Specific [place]-Urine >1.050 (H) 1.003 - 1.035 pH,UA 6.0 [...] Ref Range Urine-HCG NEG Samples with Specific [place] <1.010 may result in a false negative test Specific [place] >1.030 TROPONIN-I Collection Time: 04/11/18 6:00 AM [...] the past, benzodiazepine use who presented to [facility] with progressive dyspnea and bilateral pleural effusions. [...] thrombectomy. Will consult CTS. She will need burling and joining supervisor consult for treatment of her fibroid causing severe anemia. I would hope that endometrial ablation or uterine artery embolization are options as she is obviously high surgical risk at this point. in this encounter Miscellaneous Notes * Case Mgmt DC Plan - Roslyn Munoz - 04/18/2018 12:16 PM CDT Formatting of [...] medication voucher and patient assistance application. Notified maintenance apprentice of voucher in [facility] pharmacy. She will update pt. Summary of work with pt regarding plan for obtaining medications moving forward (pt assets/barriers/community resources provided): Pt follows at [facility] in [place], [place]. They provide vouchers to obtain her [...] Phone and Availability #1: Robby Baron, ex- [phone] Does the patient use Medicaid Transportation?: No ? Next Level of Care (Acute Psych discharges only) ? Discharge Disposition Durable Medical Equipment No service has been selected for the patient. [facility] Destination No service has been selected for the patient. Home Care No service has been selected for the patient. Dialysis/Infusion No service has been selected for the patient. Roslyn Munoz LMSW *[id number] * Case Mgmt DC Plan - [...] Discharge Planning Discharge Planning: Other (medication assistance) NCM spoke with Claudia, mediation nursing information systems coordinator, she states that Lovenox 80mg BID for 7 days ( 14 syringes) is ready for pt in [facility]. Pt will just stop there on discharge with script and molded goods spot picker medication. [facility] notified pt of above information. ? Medication [...] been selected for the patient. FATEMEH Teague, urban renewal manager [phone] * Case Mgmt DC Plan - Gin [...] (medication assistance) Medication assistance form completed by NCM and patient (pt also signed application) for Lovenox 80mg BID for 7 days. [facility] faxed application for medication assistance to Shelia Villeda at [phone]. ? Medication Needs ? Financial Financial: Financial Counseling Referral/Follow-up ? Legal ? Other Disposition ? Expected Discharge Date Expected Discharge Date: 05/23/18 ? Transportation Does the patient need discharge [...] been selected for the patient. FATEMEH Teague, urban renewal manager [phone] * Critical Results - Nichelle Bloom RN [...] for any complications. Attending Surgeon: MD Adelia Powder Blender And Pourer(s): MD Jeanie Ace MD Findings: Normal appearing [...] value, and read back): APTT 182.1 Time MD/ALTERATIONS SEWER Notified: MD not notified. Following Heparin protocol. [...] SW if this changes. Pt follows at [facility] in [place], [place]. Her PCP assist with vouchers for [...] been selected for the patient. Roslyn Munoz, IDALIA *[id number] * Case Mgmt DC Plan - [...] Referral ? Discharge Planning Discharge Planning: Other NCM called [facility], , in [place], [place] to verify if pt can have [...] Phone and Availability #1: Robby Baron, ex- [phone] Does the patient use Medicaid Transportation?: No ? Next Level of Care (Acute Psych discharges only) ? Discharge Disposition Durable Medical Equipment No service has been selected for the patient. Destination No service has been selected for the patient. Home Care No service has been selected for the patient. Dialysis/Infusion No service has been selected for the patient. FATEMEH Teague, urban renewal manager [phone] * Critical Results - Vy Gregorio RN - 04/12/2018 11:26 PM CDT Critical result or procedure called (document test and value, and read back): ptt 134.3 Time MD/ALTERATIONS SEWER Notified: CLAUDIO MD/ALTERATIONS SEWER Name: CLAUDIO MD/ALTERATIONS SEWER Response/Orders Given: Followed Hep protocol * Case [...] vouchers. She sees physician, Dr. Cardenas, at [facility] in [place], [place], phone number [phone]. Pt verbalized that she has received treatment in past for Methamphetamine Abuse, however, she does not wish to seek treatment or be given resources at this time. Pt gets prescriptions filled at [facility] in [place], [place]. Patient Address/Phone [address] [facility] [address] (home) Emergency Contact Extended Emergency Contact Information Primary Emergency Contact: Robby Baron [facility] Relation: Spouse Secondary Emergency Contact: Margie Baron [facility] Relation: Daughter Healthcare Directive Healthcare Directive: No, [...] has had treatment in the past in [place], [place] ? Other Current/Previous Services ? PCP No primary care provider on file., None, None ? Pharmacy [facility][id number] - [place], [place] - [address] [facility] [id number] ? Durable Medical Equipment Durable Medical Equipment at home: Wheelchair (manual) ? Home Health Receiving home health: In the past Agency name: Pt does not know, states company was out of [place], [place] ? Hemodialysis or Peritoneal Dialysis Undergoing hemodialysis or peritoneal dialysis: No ? Tube/Enteral Feeds Receive tube/enteral feeds: No ? Infusion Receive infusions: No ? Private Duty Private duty help used: No ? Home and Community Based Services Home and community based services: No ? Dain Sena: N/A ? Hospice Hospice: No ? Outpatient Therapy PT: No OT: No SASH FINISHER: No ? Assisted Facility/Alf SNF: No NH: No ? Inpatient Rehab IPR: No ? Long-Term Acute Care Hospital LTACH: No ? Acute Hospital Stay Acute Hospital Stay: In the past Was patient's stay within the last 30 days?: No ZEB Teague [phone] * Case Mgmt DC Plan - Roslyn Munoz - 04/11/2018 12:28 PM CDT Formatting of this note may be different from the original. Case Management Progress Note NAME:Betina Baron :1969 AGE: 48 y.o. ADMISSION DATE: 04/10/2018 DAYS ADMITTED: LOS: 0 days Todays Date: 04/11/2018 Plan Anticipate discharge to home when medically stable. Interventions ? Support Support: Pt/Family Updates re:POC or DC Plan LUIS met with pt at bedside to discuss resources. ? Info or Referral ? Discharge Planning Discharge Planning: Transportation Arrangements and/or Resources LUIS attended [facility] huddle and reviewed EMR. LUIS met with pt at bedside to discuss [...] been selected for the patient. Roslyn Munoz [facility] *[id number] * Care Coordination-Inpatient - Yani Tomlinson MD - 04/10/2018 9:41 PM CDT Formatting of this note may be different from the original. Internal Medicine AOD Transfer Center Acceptance Note I was paged this evening by Julia from the Transfer Center Triage team regarding Ms Baron. She presented to [facility] ED this afternoon with dyspnea. She apparently [...] Tomlinson M.D. Internal Medicine, Hospitalist Date: 04/10/[phone] in this encounter Plan of Treatment Name Priority Associated Diagnoses Order Schedule ECG 12-LEAD Routine ONE TIME for 1 Occurrences starting 04/11/2018 until 04/11/2018 PROTIME INR (PT) Routine Abnormal uterine bleeding Expected: 04/20/2018 Acute systolic CHF (Approximate), Expires: (congestive heart 04/18/2019 failure) (HCC) LV (left ventricular) mural thrombus without [place] Mass of heart Iron deficiency anemia due [...] MG/DL Specimen Performing Laboratory MAIN LAB [address] [place] [address] * POC GLUCOSE (04/18/2018 11:49 AM) Component Value Ref Range Glucose, POC 126 (H) 70 - 100 MG/DL Specimen Performing Laboratory MAIN LAB [address] [place] [address] * POC GLUCOSE (04/18/2018 8:39 AM) Component Value Ref Range Glucose, POC 263 (H) 70 - 100 MG/DL Specimen Performing Laboratory MAIN LAB [address] [place] [address] * MAGNESIUM (04/18/2018 5:11 AM) Component Value Ref Range Magnesium 1.7 1.6 - 2.6 mg/dL Specimen Performing Laboratory Blood MAIN LAB [address] [place] [address] * COMPREHENSIVE METABOLIC PANEL (04/18/2018 5:11 AM) [...] Specimen Performing Laboratory Blood MAIN LAB [address] [place] [address] * CBC AND DIFF (04/18/2018 5:11 AM) [...] - 0.20 K/UL Specimen Performing Laboratory Blood [facility] [address] [place], [place] [id number] * PROTIME INR (PT) (04/18/2018 5:11 AM) Component Value Ref Range INR 1.2 0.8 - 1.2 Specimen Performing Laboratory Blood [facility] LAB [address] [place], [place] [id number] * POC GLUCOSE (04/18/2018 3:33 AM) Component Value Ref Range Glucose, POC 245 (H) 70 - 100 MG/DL Specimen Performing Laboratory [facility] [address] [place] [address] * POC GLUCOSE (04/17/2018 9:16 PM) Component Value Ref Range Glucose, POC 180 (H) 70 - 100 MG/DL Specimen Performing Laboratory [facility] [address] [place] [address] * POC GLUCOSE (04/17/2018 4:18 PM) Component Value Ref Range Glucose, POC 172 (H) 70 - 100 MG/DL Specimen Performing Laboratory [facility] [address] [place] [address] * POC GLUCOSE (04/17/2018 12:12 PM) Component Value Ref Range Glucose, POC 170 (H) 70 - 100 MG/DL Specimen Performing Laboratory [facility] [address] [place] [address] * POC GLUCOSE (04/17/2018 8:31 AM) Component Value Ref Range Glucose, POC 206 (H) 70 - 100 MG/DL Specimen Performing Laboratory [facility] [address] [place] [address] * PTT (APTT) (04/17/2018 8:30 AM) Component Value Ref Range APTT 81.1 (H) 21.0 - 39.0 SEC Specimen Performing Laboratory Blood MAIN LAB [address] [place] [address] * MAGNESIUM (04/17/2018 6:23 AM) Component Value Ref Range Magnesium 1.6 1.6 - 2.6 mg/dL Specimen Performing Laboratory Blood MAIN LAB [address] [place] [address] * COMPREHENSIVE METABOLIC PANEL (04/17/2018 6:23 AM) [...] Specimen Performing Laboratory Blood MAIN LAB [address] [place] [address] * CBC AND DIFF (04/17/2018 6:23 AM) [...] - 0.20 K/UL Specimen Performing Laboratory Blood [facility] [address] [place] [address] * PROTIME INR (PT) (04/17/2018 6:23 AM) Component Value Ref Range INR 1.2 0.8 - 1.2 Specimen Performing Laboratory Blood [facility] [address] [place] [address] * POC GLUCOSE (04/17/2018 3:18 AM) Component Value Ref Range Glucose, POC 175 (H) 70 - 100 MG/DL Specimen [place] [address] * PTT (APTT) (04/17/2018 2:00 AM) Component Value Ref Range APTT 32.3 21.0 - 39.0 SEC Specimen Performing Laboratory Blood [facility] [address] [place] [address] * PTT (APTT) (04/16/2018 11:35 PM) Component Value Ref Range APTT >200.0 (HH) 21.0 - 39.0 SEC Comment: Critical Result APTT:Called to NICHELLE Zamorano at: 00:16:08 by: RENETTA Read back by: NICHELLE Zamorano Specimen [place] [address] * POC GLUCOSE (04/16/2018 8:56 PM) Component Value Ref Range Glucose, POC 273 (H) 70 - 100 MG/DL Specimen Performing Laboratory [facility] MAIN LAB [address] [place] [address] * POC GLUCOSE (04/16/2018 5:23 PM) Component Value Ref Range Glucose, POC 281 (H) 70 - 100 MG/DL Specimen Performing Laboratory MAIN LAB [address] [place] [address] * PTT (APTT) (04/16/2018 2:46 PM) Component Value Ref Range APTT 69.8 (H) 21.0 - 39.0 SEC Specimen Performing Laboratory Blood MAIN LAB [address] [place] [address] * POC GLUCOSE (04/16/2018 11:57 AM) Component Value Ref Range Glucose, POC 249 (H) 70 - 100 MG/DL Specimen Performing Laboratory MAIN LAB [address] [place] [address] * ECG-SCAN (04/16/2018 9:20 AM) Narrative Ordered by an unspecified provider. * ECG-SCAN (04/16/2018 9:20 AM) Narrative Ordered by an unspecified provider. * ECG-SCAN (04/16/2018 9:20 AM) Narrative Ordered by an unspecified provider. * POC GLUCOSE (04/16/2018 8:20 AM) Component Value Ref Range Glucose, POC 171 (H) 70 - 100 MG/DL Specimen Performing Laboratory MAIN LAB [address] [place] [address] * PTT (APTT) (04/16/2018 5:01 AM) Component Value Ref Range APTT 127.9 (H) 21.0 - 39.0 SEC Specimen Performing Laboratory MAIN LAB [address] [place] [address] * PROTIME INR (PT) (04/16/2018 5:01 AM) Component Value Ref Range INR 1.3 (H) 0.8 - 1.2 Specimen Performing Laboratory Blood MAIN LAB [address] [place] [address] * MAGNESIUM (04/16/2018 5:01 AM) Component Value Ref Range Magnesium 1.4 (L) 1.6 - 2.6 mg/dL Specimen Performing Laboratory Blood MAIN LAB [address] [place] [address] * COMPREHENSIVE METABOLIC PANEL (04/16/2018 5:01 AM) [...] Performing Laboratory Blood [facility] MAIN LAB [address] [place] [address] * CBC AND DIFF (04/16/2018 5:01 AM) [...] - 0.20 K/UL Specimen Performing Laboratory Blood [facility] [address] [place] [address] * POC GLUCOSE (04/16/2018 3:17 AM) Component Value Ref Range Glucose, POC 173 (H) 70 - 100 MG/DL Specimen Performing Laboratory [facility] [address] [place] [address] * POC GLUCOSE (04/15/2018 9:01 PM) Component Value Ref Range Glucose, POC 218 (H) 70 - 100 MG/DL Specimen Performing Laboratory [place] [id number] * POC GLUCOSE (04/15/2018 5:02 PM) Component Value Ref Range Glucose, POC 238 (H) 70 - 100 MG/DL Specimen Performing Laboratory [place] [id number] * POC GLUCOSE (04/15/2018 1:05 PM) Component Value Ref Range Glucose, POC 262 (H) 70 - 100 MG/DL Specimen Performing Laboratory [place] [id number] * POC GLUCOSE (04/15/2018 8:02 AM) Component Value Ref Range Glucose, POC 239 (H) 70 - 100 MG/DL Specimen Performing Laboratory [place] [id number] * PROTIME INR (PT) (04/15/2018 3:00 AM) Component Value Ref Range INR 1.1 0.8 - 1.2 Specimen Performing Laboratory [facility] [address] [place], [place] [id number] * MAGNESIUM (04/15/2018 3:00 AM) Component Value Ref Range Magnesium 1.6 1.6 - 2.6 mg/dL Specimen Performing Laboratory [facility] [address] [place] [address] * CBC AND DIFF (04/15/2018 3:00 AM) [...] 0 - 0.20 K/UL Specimen Performing Laboratory [facility] MAIN [facility] [address] [place] [address] * COMPREHENSIVE METABOLIC PANEL (04/15/2018 3:00 AM) [...] Clinical Pharmacist for questions. Specimen Performing Laboratory MAIN LAB [address] [place] [address] * PTT (APTT) (04/15/2018 3:00 AM) Component Value Ref Range APTT 92.9 (H) 21.0 - 39.0 SEC Specimen Performing Laboratory Blood MAIN LAB [address] [place] [address] * POC GLUCOSE (04/15/2018 2:54 AM) Component Value Ref Range Glucose, POC 256 (H) 70 - 100 MG/DL Specimen Performing Laboratory MAIN LAB [address] [place] [address] * POC GLUCOSE (04/14/2018 9:13 PM) Component Value Ref Range Glucose, POC 343 (H) 70 - 100 MG/DL Specimen Performing Laboratory [facility] [address] [place], [place] [id number] * PTT (APTT) (04/14/2018 8:18 PM) Component Value Ref Range APTT 99.1 (H) 21.0 - 39.0 SEC Specimen Performing Laboratory Blood [facility] LAB [address] [place] [address] * POC GLUCOSE (04/14/2018 5:53 PM) Component Value Ref Range Glucose, POC 288 (H) 70 - 100 MG/DL Specimen Performing Laboratory [facility] [address] [place], [place] [id number] * PAP THIN PREP (04/14/2018 3:21 PM) Component Value Ref Range Cytology [facility] [email or web address] Department of Pathology and Laboratory Medicine [address] [place] [address]. Office:[phone] CYTOLOGY REPORT NAME: BETINA BARON CYTOLOGY #: [id number] MR #: [id number] ALT ID #:BILLING #: [id number] LOCATION: DISC DATE OF PROCEDURE: 04/14/2018 15:21 AGE:48 SEX: [...] results. As a part of our quality control analyst program, this case has been rescreened by a asphalt plant operator. Comment HPV, High Risk: Negative [employer] Gen-Probe APTIMA HR-HPV Assay is a FDA [...] Department of Pathology and Laboratory Medicine at [facility] using [employer] Gen-Probe [place] System. Attestation: By this signature, I attest [...] conjunction with history and clinical findings.Reported using [place] System terminology. ################################################## ###################### Specimen Performing Laboratory [facility] RESULTS * PTT (APTT) (04/14/2018 1:23 PM) Component Value Ref Range APTT 35.4 21.0 - 39.0 SEC Specimen Performing Laboratory Blood [facility] [address] [place] [address] * SURGICAL PATHOLOGY (04/14/2018 12:26 PM) Component Value Ref Range PATHOLOGY REPORT [facility] [email or web address] Department of Pathology and Laboratory Medicine [address] [place] [address] Surgical Pathology Office:[phone]:[phone] SURGICAL PATHOLOGY REPORT NAME: BETINA BARON SURG PATH #: [id number] MR #: [id number] SPECIMEN CLASS: SR BILLING #: [id number] ALT ID #:LOCATION: [id number] DATE OF PROCEDURE: [...] material indicated in this report. +++ +++ lkr/04/14/2018 ################################################## ###################### Material Received: A: endometrial biopsy History: 48-year-old female with history of heavy bleeding and enlarged fibroid uterus. Gross Description: A. Received in formalin labeled "EMB" is a 2.2 x 1.0 x 0.3 cm aggregate of irregular, chance-brown, friable, soft tissue fragments admixed with clotted blood elements. The specimen is filtered and submitted entirely in cassette A1. (tn) chance04/14/2018 Specimen Performing Laboratory LAB RESULTS * POC GLUCOSE (04/14/2018 12:03 PM) Component Value Ref Range Glucose, POC 303 (H) 70 - 100 MG/DL Specimen Performing Laboratory [facility] [address] [place] [address] * PTT (APTT) (04/14/2018 10:25 AM) Component Value Ref Range APTT 182.1 (HH) 21.0 - 39.0 SEC Comment: Critical Result APTT:Called to OFE Lopez at: 11:16:09 by: RACHEL Read back by: OFE Lopez Specimen [place] [address] * POC GLUCOSE (04/14/2018 7:40 AM) Component Value Ref Range Glucose, POC 216 (H) 70 - 100 MG/DL [place] [address] * PROTIME INR (PT) (04/14/2018 3:28 AM) Component Value Ref Range INR 1.1 0.8 - 1.2 Specimen Performing Laboratory [facility] [address] [place] [address] * MAGNESIUM (04/14/2018 3:28 AM) Component Value Ref Range Magnesium 1.7 1.6 - 2.6 mg/dL Specimen Performing Laboratory [facility] [address] [place] [address] * CBC AND DIFF (04/14/2018 3:28 AM) [...] K/UL Specimen Performing Laboratory MAIN LAB [address] [place] [address] * COMPREHENSIVE METABOLIC PANEL (04/14/2018 3:28 AM) [...] Clinical Pharmacist for questions. Specimen Performing Laboratory [facility] [address] [place] [address] * PTT (APTT) (04/14/2018 3:28 AM) Component Value Ref Range APTT 86.3 (H) 21.0 - 39.0 SEC Specimen Performing Laboratory Blood [facility] [address] [place] [address] * POC GLUCOSE (04/14/2018 3:06 AM) Component Value Ref Range Glucose, POC 253 (H) 70 - 100 MG/DL Specimen Performing Laboratory [facility] [address] [place] [address] * POC GLUCOSE (04/13/2018 8:49 PM) Component Value Ref Range Glucose, POC 258 (H) 70 - 100 MG/DL Specimen Performing Laboratory [facility] [address] [place] [address] * PTT (APTT) (04/13/2018 8:45 PM) Component Value Ref Range APTT 66.9 (H) 21.0 - 39.0 SEC Specimen Performing Laboratory Blood [facility] [address] [place] [address] * POC GLUCOSE (04/13/2018 5:51 PM) Component Value Ref Range Glucose, POC 326 (H) 70 - 100 MG/DL Specimen Performing Laboratory [facility] [address] [place] [address] * POC GLUCOSE (04/13/2018 10:36 AM) Component Value Ref Range Glucose, POC 159 (H) 70 - 100 MG/DL Specimen Performing Laboratory [facility] [address] [place] [address] * CARDIAC CATH REPORT (04/13/2018 10:30 AM) Specimen Performing Laboratory OTHER OUTSIDE LAB Procedure Note Cj Whitaker MD - 04/13/2018 10:30 AM CDT Formatting of this note may be different from the original. [facility] CARDIAC CATHETERIZATION REPORT Page 2 BETINA Adhikari : 1970 #: [id number] MR #/Billing ID #: [id number] / [id number] DATE: 04/13/2018 PATIENT CARE REPRESENTATIVE: Cj Whitaker MD DICTATING PROVIDER: Cj Whitaker [...] prepped in the usual aseptic technique. A 5-South African sheath was placed into the right common femoral artery under local anesthesia under fluoroscopic examination. An 8-[place] sheath was placed in the right common [...] right heart cardiac catheterization by a balloon-tipped [place] -Liza catheter. This was floated via the right femoral venous sheath. Hemodynamic measurements of the right heart were obtained. Cardiac output was measured by thermodilution method. The [place]-Liza catheter was then removed. Sheaths were left [...] AORTOGRAM: Aortogram was obtained in 30 degree SW[place] projection. The aortogram reveals a single left [...] and continue IV diuresis. Cj Whitaker MD AM/[employer] /[id number] P cc: - REFERRAL SELF MD Cj Santa MD * O2HGB SAT-VENOUS POC (04/13/2018 10:16 AM) Component Value Ref Range O2HGB SAT-Venous POC 55.1 55 - 71 % Specimen Performing Laboratory [facility] [address] [place] [address] * O2HGB SAT-VENOUS POC (04/13/2018 10:13 AM) Component Value Ref Range O2HGB SAT-Venous POC 56.5 55 - 71 % Specimen Performing Laboratory [facility] [address] [place] [address] * POC ACTIVATED CLOTTING TIME (04/13/2018 9:59 AM) Component Value Ref Range Activated Clotting Time 169 s Specimen Performing Laboratory [facility] [address] [place] [address] * O2HGB SAT-VENOUS POC (04/13/2018 9:59 AM) Component Value Ref Range O2HGB SAT-Venous POC 97.0 (H) 55 - 71 % Specimen Performing Laboratory [facility] [address] [place] [address] * POC GLUCOSE (04/13/2018 8:18 AM) Component Value Ref Range Glucose, POC 198 (H) 70 - 100 MG/DL Specimen Performing Laboratory [facility] [address] [place] [address] * MAGNESIUM (04/13/2018 6:35 AM) Component Value Ref Range Magnesium 1.6 1.6 - 2.6 mg/dL Specimen Performing Laboratory [facility] [address] [place] [address] * CBC AND DIFF (04/13/2018 6:35 AM) [...] - 7.0 K/UL Manual Specimen Performing Laboratory MAIN LAB [address] [place] [address] * COMPREHENSIVE METABOLIC PANEL (04/13/2018 6:35 AM) [...] Clinical Pharmacist for questions. Specimen Performing Laboratory MAIN LAB [address] [place] [address] * PTT (APTT) (04/13/2018 6:35 AM) Component Value Ref Range APTT 73.9 (H) 21.0 - 39.0 SEC Specimen Performing Laboratory Blood MAIN LAB [address] [place] [address] * PTT (APTT) (04/12/2018 10:28 PM) Component Value Ref Range APTT 134.3 (HH) 21.0 - 39.0 SEC Comment: Critical Result APTT:Called to SALIMA Grajeda at: 23:16:15 by: HÉCTOR Read back by: SALIMA Grajeda Specimen Performing Laboratory Blood [facility] [address] [place] [address] * POC GLUCOSE (04/12/2018 8:42 PM) Component Value Ref Range Glucose, POC 234 (H) 70 - 100 MG/DL Specimen Performing Laboratory [facility] [address] [place], [place] [id number] * POC GLUCOSE (04/12/2018 6:39 PM) Component Value Ref Range Glucose, POC 96 70 - 100 MG/DL Specimen Performing Laboratory [facility] [address] [place] [address] * POC GLUCOSE (04/12/2018 5:16 PM) Component Value Ref Range Glucose, POC 83 70 - 100 MG/DL Specimen Performing Laboratory [facility] [address] [place] [address] * POC GLUCOSE (04/12/2018 4:53 PM) Component Value Ref Range Glucose, POC 61 (L) 70 - 100 MG/DL Specimen Performing Laboratory [facility] [address] [place], [place] [id number] * POC GLUCOSE (04/12/2018 4:33 PM) Component Value Ref Range Glucose, POC 56 (L) 70 - 100 MG/DL Specimen Performing Laboratory [facility] [address] [place] [address] * TROPONIN-I (04/12/2018 4:00 PM) Component Value Ref Range Troponin-I 1.87 (H) 0.0 - 0.05 NG/ML Specimen Performing Laboratory [facility] [address] [place], [place] [phone] * BASIC METABOLIC PANEL (04/12/2018 4:00 PM) [...] questions. Specimen Performing Laboratory Blood MAIN LAB [address] [place] [address] * PTT (APTT) (04/12/2018 3:34 PM) Component Value Ref Range APTT 57.1 (H) 21.0 - 39.0 SEC Specimen Performing Laboratory Blood [facility] [address] [place] [address] * POC GLUCOSE (04/12/2018 12:29 PM) Component Value Ref Range Glucose, POC 223 (H) 70 - 100 MG/DL Specimen Performing Laboratory [facility] [address] [place] [address] * TROPONIN-I (04/12/2018 11:13 AM) Component Value Ref Range Troponin-I 2.02 (H) 0.0 - 0.05 NG/ML Specimen Performing Laboratory Blood [facility] [address] [place] [address] * PTT (APTT) (04/12/2018 8:00 AM) Component Value Ref Range APTT 70.3 (H) 21.0 - 39.0 SEC Specimen Performing Laboratory Blood [facility] [address] [place] [address] * POC GLUCOSE (04/12/2018 7:42 AM) Component Value Ref Range Glucose, POC 209 (H) 70 - 100 MG/DL Specimen Performing Laboratory [facility] [address] [place] [address] * TROPONIN-I (04/12/2018 5:21 AM) Component Value Ref Range Troponin-I 2.33 (H) 0.0 - 0.05 NG/ML Specimen Performing Laboratory Blood [facility] [address] [place] [address] * MAGNESIUM (04/12/2018 5:21 AM) Component Value Ref Range Magnesium 1.6 1.6 - 2.6 mg/dL Specimen Performing Laboratory Blood [facility] [address] [place] [address] * COMPREHENSIVE METABOLIC PANEL (04/12/2018 5:21 AM) [...] Performing Laboratory Blood [facility] [address] [place] [address] * CBC AND DIFF (04/12/2018 5:21 AM) [...] K/UL Specimen Performing Laboratory Blood MAIN LAB [address] [place] [address] * PTT (APTT) (04/12/2018 1:15 AM) Component Value Ref Range APTT 50.7 (H) 21.0 - 39.0 SEC Specimen Performing Laboratory Blood MAIN LAB [address] [place] [address] * TROPONIN-I (04/12/2018 12:10 AM) Component Value Ref Range Troponin-I 1.59 (H) 0.0 - 0.05 NG/ML Specimen Performing Laboratory Blood MAIN LAB [address] [place] [address] * POC GLUCOSE (04/11/2018 8:17 PM) Component Value Ref Range Glucose, POC 147 (H) 70 - 100 MG/DL Specimen Performing Laboratory MAIN LAB [address] [place] [address] * US PELVIS NON OB COMP (04/11/2018 [...] - 39.0 SEC Specimen Performing Laboratory Blood [facility] [address] [place] [address] * TROPONIN-I (04/11/2018 5:00 PM) Component Value Ref Range Troponin-I 1.29 (H) 0.0 - 0.05 NG/ML Specimen Performing Laboratory Blood [facility] [address] [place] [address] * POC GLUCOSE (04/11/2018 4:56 PM) Component Value Ref Range Glucose, POC 83 70 - 100 MG/DL Specimen Performing Laboratory [facility] [address] [place] [address] * BETA-HCG (04/11/2018 12:00 PM) Component Value Ref Range Beta-HCG,Serum 1 <5 U/L Specimen Performing Laboratory [facility] [address] [place] [address] * TROPONIN-I (04/11/2018 12:00 PM) Component Value Ref Range Troponin-I 0.33 (H) 0.0 - 0.05 NG/ML Specimen Performing Laboratory Blood [facility] [address] [place] [address] * POC GLUCOSE (04/11/2018 11:29 AM) Component Value Ref Range Glucose, POC 333 (H) 70 - 100 MG/DL Specimen Performing Laboratory [facility] [address] [place] [address] * 2-D + DOPPLER ECHOCARDIOGRAM (04/11/2018 10:40 [...] TDI 0.130 m/s S' Cardiology Ultrasound Siemens [id number] Machine Left Ventricle Mass Index 125.60 44 [...] Performing Laboratory Blood [facility] [address] [place] [address] * POC GLUCOSE (04/11/2018 7:51 AM) Component Value Ref Range Glucose, POC 338 (H) 70 - 100 MG/DL Specimen Performing Laboratory [facility] [address] [place] [address] * CT ABD/PELV W CONTRAST (04/11/2018 6:29 [...] to mildly enlarged retroperitoneal lymph nodes. A customer engagement representative aortocaval caval node measures 1.1 x [...] to mildly enlarged retroperitoneal lymph nodes. A customer engagement representative aortocaval caval node measures 1.1 x [...] to mildly enlarged retroperitoneal lymph nodes. A customer engagement representative aortocaval caval node measures 1.1 x [...] to mildly enlarged retroperitoneal lymph nodes. A customer engagement representative aortocaval caval node measures 1.1 x [...] 1.6 - 2.6 mg/dL Specimen Performing Laboratory [facility] [address] [place] [address] * TROPONIN-I (04/11/2018 6:00 AM) Component Value Ref Range Troponin-I 0.32 (H) 0.0 - 0.05 NG/ML Specimen Performing Laboratory Blood [facility] [address] [place] [address] * TEST-URINE (04/11/2018 3:50 AM) Component Value Ref Range Urine-HCG NEG Samples with Specific [place] <1.010 may result in a false negative test Specific [place] >1.030 Specimen Performing Laboratory Urine [facility] [address] [place] [address] * PHENCYCLIDINES-URINE RANDOM (04/11/2018 3:50 AM) Component Value Ref Range Phencyclidine (PCP) NEG NEG-NEG Comment: RESULTS WERE OBTAINED BY IMMUNOASSAY AND ARE PRESUMPTIVE ONLY. POSITIVE INDICATES THE PRESENCE OF SUBSTANCE WITH CHARACTERISTICS SIMILAR TO DRUG-DRUG CLASS OR METABOLITE IN CONC. EQUAL TO OR EXCEEDING VALUES LISTED. PHENCYCLIDINE (PCP)25 NG/ML Specimen Performing Laboratory Urine [facility] [address] [place] [address] * OPIATES-URINE RANDOM (04/11/2018 3:50 AM) Component Value Ref Range Opiates-Urine NEG NEG-NEG Comment: RESULTS WERE OBTAINED BY IMMUNOASSAY AND ARE PRESUMPTIVE ONLY. POSITIVE INDICATES THE PRESENCE OF SUBSTANCE WITH CHARACTERISTICS SIMILAR TO DRUG-DRUG CLASS OR METABOLITE IN CONC. EQUAL TO OR EXCEEDING VALUES LISTED. [id number] 0 NG/ML Specimen Performing Laboratory Urine [facility] [address] [place] [address] * COCAINE-URINE RANDOM (04/11/2018 3:50 AM) Component Value Ref Range Cocaine-Urine NEG NEG-NEG Comment: RESULTS WERE OBTAINED BY IMMUNOASSAY AND ARE PRESUMPTIVE ONLY. POSITIVE INDICATES THE PRESENCE OF SUBSTANCE WITH CHARACTERISTICS SIMILAR TO DRUG-DRUG CLASS OR METABOLITE IN CONC. EQUAL TO OR EXCEEDING VALUES LISTED. COCAINE 300 NG/ML Specimen Performing Laboratory Urine MAIN LAB [address] [place] [address] * CANNABINOIDS-URINE RANDOM (04/11/2018 3:50 AM) Component Value Ref Range THC NEG NEG-NEG Comment: RESULTS WERE OBTAINED BY IMMUNOASSAY AND ARE PRESUMPTIVE ONLY. POSITIVE INDICATES THE PRESENCE OF SUBSTANCE WITH CHARACTERISTICS SIMILAR TO DRUG-DRUG CLASS OR METABOLITE IN CONC. EQUAL TO OR EXCEEDING VALUES LISTED. [id number] NG/ML Specimen Performing Laboratory Urine [facility] [address] [place] [address] * BENZODIAZEPINES-URINE RANDOM (04/11/2018 3:50 AM) Component Value Ref Range Benzodiazepines POS (A) NEG-NEG Comment: RESULTS WERE OBTAINED BY IMMUNOASSAY AND ARE PRESUMPTIVE ONLY. POSITIVE INDICATES THE PRESENCE OF SUBSTANCE WITH CHARACTERISTICS SIMILAR TO DRUG-DRUG CLASS OR METABOLITE IN CONC. EQUAL TO OR EXCEEDING VALUES LISTED. BENZODIAZEPINES 200 NG/ML Specimen Performing Laboratory Urine [facility] [address] [place] [address] * BARBITURATES-URINE RANDOM (04/11/2018 3:50 AM) Component Value Ref Range Barbiturates,Urine NEG NEG-NEG Comment: RESULTS WERE OBTAINED BY IMMUNOASSAY AND ARE PRESUMPTIVE ONLY. POSITIVE INDICATES THE PRESENCE OF SUBSTANCE WITH CHARACTERISTICS SIMILAR TO DRUG-DRUG CLASS OR METABOLITE IN CONC. EQUAL TO OR EXCEEDING VALUES LISTED. [id number] NG/ML Specimen Performing Laboratory Urine [address] [address] * AMPHETAMINES-URINE RANDOM (04/11/2018 3:50 AM) Component Value Ref Range Amphetamines NEG NEG-NEG Comment: RESULTS WERE OBTAINED BY IMMUNOASSAY AND ARE PRESUMPTIVE ONLY. POSITIVE INDICATES THE PRESENCE OF SUBSTANCE WITH CHARACTERISTICS SIMILAR TO DRUG-DRUG CLASS OR METABOLITE IN CONC. EQUAL TO OR EXCEEDING VALUES LISTED. AMPHETAMINES 1000 NG/ML Specimen Performing Laboratory Urine [facility] [address] [place] [address] * URINALYSIS, MICROSCOPIC (04/11/2018 3:50 AM) Component Value Ref Range WBCs,UA 0-2 0 - 2 /HPF RBCs,UA 0-2 0 - 3 /HPF MucousUA TRACE Specimen Performing Laboratory Urine [facility] [address] [place] [address] * URINALYSIS DIPSTICK (04/11/2018 3:50 AM) Component Value Ref Range Color,UA YELLOW Turbidity,UA CLEAR CLEAR-CLEAR Specific [place]-Urine >1.050 (H) 1.003 - 1.035 pH,UA 6.0 5.0 - 8.0 Protein,UA 2+ (A) NEG-NEG Glucose,UA 3+ (A) NEG-NEG Ketones,UA NEG NEG-NEG Bilirubin,UA NEG NEG-NEG Blood,UA NEG NEG-NEG Urobilinogen,UA NORMAL NORM-NORMAL Nitrite,UA NEG NEG-NEG Leukocytes,UA NEG NEG-NEG Urine Ascorbic Acid, UA NEG NEG-NEG Specimen Performing Laboratory Urine [facility] [address] [place] [address] * CULTURE-URINE W/SENSITIVITY (04/11/2018 3:50 AM) Component Value Ref Range Battery Name URINE CULTURE Specimen Description URINE Special Requests NONE Culture NO GROWTH Report Status FINAL 04/12/2018 Specimen Performing Laboratory Urine [facility] [address] [place] [address] * POC GLUCOSE (04/11/2018 3:20 AM) Component Value Ref Range Glucose, POC 327 (H) 70 - 100 MG/DL Specimen Performing Laboratory [facility] [address] [place], [place] [phone] * HIV-1/2 ANTIGEN/ANTIBODY SCREEN (04/11/2018 1:55 AM) Component Value Ref Range HIV 1 and 2 AG AB Screen NEG NEG-NEG Specimen Performing Laboratory Blood [facility] [address] [place] [address] * HAPTOGLOBIN (04/11/2018 1:55 AM) Component Value Ref Range Haptoglobin 120 16 - 200 MG/DL Specimen Performing Laboratory Blood [facility] [address] [place] [address] * FIBRINOGEN (04/11/2018 1:55 AM) Component Value Ref Range Fibrinogen 225 200 - 400 MG/DL Specimen Performing Laboratory Blood [facility] [address] [place], [place] [address] * CULTURE-BLOOD W/SENSITIVITY (04/11/2018 1:55 AM) Component Value Ref Range Battery Name BLOOD CULTURE Specimen Description BLOOD RIGHT ANTECUBITAL Special Requests NONE Culture NO GROWTH 5 DAYS Report Status FINAL 04/17/2018 Specimen Performing Laboratory Blood [facility] [address] [place] [address] * CULTURE-BLOOD W/SENSITIVITY (04/11/2018 1:55 AM) Component Value Ref Range Battery Name BLOOD CULTURE Specimen Description BLOOD LEFT ANTECUBITAL Special Requests NONE Culture NO GROWTH 5 DAYS Report Status FINAL 04/17/2018 Specimen Performing Laboratory Blood MAIN LAB [address] [place] [address] * TSH WITH FREE T4 REFLEX (04/11/2018 1:55 AM) Component Value Ref Range TSH 4.590 0.35 - 5.00 MCU/ML Specimen Performing Laboratory Blood MAIN LAB [address] [place] [address] * BNP (B-TYPE NATRIURETIC PEPTI) (04/11/2018 1:55 AM) Component Value Ref Range B Type Natriuretic 2,773.0 (H) 0 - 100 PG/ML Peptide Specimen Performing Laboratory Blood MAIN LAB [address] [place] [address] * PTT (APTT) (04/11/2018 1:55 AM) Component Value Ref Range APTT 25.5 21.0 - 39.0 SEC Specimen Performing Laboratory Blood MAIN LAB [address] [place] [address] * PROTIME INR (PT) (04/11/2018 1:55 AM) Component Value Ref Range INR 1.1 0.8 - 1.2 Specimen Performing Laboratory Blood [facility] [address] [place] [address] * LIPASE (04/11/2018 1:33 AM) Component Value Ref Range Lipase <3 (L) 11 - 82 U/L Specimen Performing Laboratory MAIN LAB [address] [place], [place] [id number] * CREATINE KINASE-CPK (04/11/2018 1:33 AM) Component Value Ref Range Creatine Kinase 30 21 - 215 U/L Specimen Performing Laboratory [facility] [address] [place] [address] * FOLATE, SERUM (04/11/2018 1:33 AM) Component Value Ref Range Serum Folate 14.8Comment: NOTE NEW REFERENCE RANGES >3.9 NG/ML Specimen Performing Laboratory MAIN LAB [address] [place] [address] * VITAMIN B12 (04/11/2018 1:33 AM) Component Value Ref Range Vitamin B12 643 180 - 914 PG/ML Specimen Performing Laboratory [facility] [address] [place] [address] * RETICULOCYTE COUNT (04/11/2018 1:33 AM) Component Value Ref Range Retic, Uncorrected 3.0 (H) 0.5 - 2.0 % Retic, Corrected 1.8 % Retic, Absolute 111.3 (H) 30 - 94 K/UL Specimen Performing Laboratory [facility] [address] [place] [address] * PHOSPHORUS (04/11/2018 1:33 AM) Component Value Ref Range Phosphorus 3.2 2.0 - 4.0 MG/DL Specimen Performing Laboratory [facility] [address] [place] [address] * MAGNESIUM (04/11/2018 1:33 AM) Component Value Ref Range Magnesium 1.5 (L) 1.6 - 2.6 mg/dL Specimen Performing Laboratory [facility] [address] [place] [address] * LIPID PROFILE (04/11/2018 1:33 AM) Component Value Ref Range Cholesterol 101 <200 MG/DL Triglycerides 85 <150 MG/DL HDL 44 >40 MG/DL LDL 45 <100 MG/DL VLDL 17 MG/DL Non HDL Cholesterol 57 MG/DL Comment: Calculated non-HDL Cholesterol (non-HDL-C) indirectly measures LDL-C, Lp(a), IDL-C, and VLDL-C.It is a surrogate marker for Apoprotein B.Goal should be less than 130 mg/dL. Specimen Performing Laboratory [facility] [address] [place] [address] * LDH-LACTATE DEHYDROGENASE (04/11/2018 1:33 AM) Component Value Ref Range Lactate Dehydrogenase 281 (H) 100 - 210 U/L Specimen Performing Laboratory [facility] [address] [place] [address] * IRON + BINDING CAPACITY + %SAT+ FERRITIN (04/11/2018 1:33 AM) Component Value Ref Range Iron 10 (L) 50 - 160 MCG/DL Iron Binding-TIBC 419 (H) 270 - 380 MCG/DL % Saturation 2 (L) 28 - 42 % Ferritin 5 (L) 10 - 200 NG/ML Specimen Performing Laboratory [facility] [address] [place] [address] * CBC AND DIFF (04/11/2018 1:33 AM) [...] K/UL Specimen Performing Laboratory MAIN LAB [address] [place] [address] * HEMOGLOBIN A1C (04/11/2018 1:33 AM) Component Value Ref Range Hemoglobin A1C 10.5 (H) 4.0 - 6.0 % Comment: The ADA recommends that most patients with type 1 and type 2 diabetes maintain an A1c level <7%. Specimen Performing Laboratory MAIN LAB [address] [place] [address] * COMPREHENSIVE METABOLIC PANEL (04/11/2018 1:33 AM) [...] Specimen Performing Laboratory [facility] [address] [place] [address] * TROPONIN-I (04/11/2018 1:33 AM) Component Value Ref Range Troponin-I 0.30 (H) 0.0 - 0.05 NG/ML Specimen Performing Laboratory Blood [facility] [address] [place] [address] * LACTIC ACID (BG - RAPID LACTATE) (04/11/2018 1:20 AM) Component Value Ref Range Lactic Acid,BG 1.6 0.5 - 2.0 MMOL/L Specimen Performing Laboratory Blood [facility] [address] [place] [address] * CHEST SINGLE VIEW (04/11/2018 1:05 AM) [...] a result. in this encounter Visit Diagnoses Not on filein this encounter Admitting Diagnoses Diagnosis mass left ventricle Mass of heart Administered Medications Medication Order MAR Action Action Date Dose Rate Site acetaminophen (TYLENOL) tablet 650 mg 650 mg, Oral, EVERY 4 HOURS PRN, Starting Yesica 04/13/18 at 1310, Until Tue04/18/18 at 2116, Pain non-opioid: may be used alone or in combination with opioid analgesia, TOTAL ACETAMINOPHEN DOSE NOT TO EXCEED 4GM DAILY aspirin EC tablet 81 mg Given 04/16/2018 81 mg 81 mg, Oral, DAILY, First dose on Tue: CDT 04/12/18 at 1000, Until Discontinued Given 04/17/2018 81 mg 08:56 CDT Given 04/18/2018 81 mg 08:33 CDT atorvastatin (LIPITOR) tablet 80 mg Given 04/16/2018 80 mg 80 mg, Oral, DAILY, First dose on Tue 08:23 CDT 04/12/18 at 1000, Until Discontinued Given 04/17/2018 80 mg 08:56 CDT Given 04/18/2018 80 mg 08:34 CDT carvedilol (COREG) tablet 6.25 mg Given [...] mg Abdominal 08:34 CDT Tissue furosemide (LASIX) tablet 40 mg Given 04/17/2018 40 mg 40 mg, Oral, DAILY, First dose on Tue 08:56 CDT 04/17/18 at 0900, Until Discontinued Given 04/18/2018 40 mg 08:34 CDT insulin aspart U-100 (NOVOLOG FLEXPEN) Given 04/18/2018 2 Units Arm, Right injection PEN 0-7 Units 03:43 CDT 0-7 Units, Subcutaneous, FIVE TIMES DAILY, First dose on Tue04/14/18 at 1200, Until Discontinued, -POC glucose 140-180mg/dL at , administer 1 unit insulin, at , 03* administer 0 units. -POC glucose 181-220mg/dL at , administer 2 units insulin, at 21, 03* administer 1 unit. -POC glucose 221-260mg/dL at , , administer 3 units insulin, at , 03* administer 2 units. -POC glucose 261-300mg/dL at , administer 4 units insulin, at , 03* administer 3 units. -POC glucose 301-350mg/dL at , , administer 5 units insulin, at , 03* administer 4 units. -POC glucose 351-400mg/dL at , administer 6 units insulin, at , 03* administer 5 units. -POC glucose >400mg/dL at 07, 11, 17 administer 7 units insulin, at 21, 03* administer 6 units. *only if ordered [...] 17:40 CDT Tissue insulin glargine (LANTUS SOLOSTAR, BASAGLAR) injection PEN 28 Units 28 Units, Subcutaneous, AT BEDTIME DAILY, First dose on Tue04/18/18 at 2100, Until Discontinued, -- Do not mix with other insulins -- NOTE: This is a HIGH ALERT Medication. lisinopril (PRINIVIL, ZESTRIL) tablet Given 04/16/2018 2.5 mg 2.5 mg 08:23 CDT 2.5 mg, Oral, DAILY, First dose on Tue04/11/18 at 1300, Until Discontinued Given 04/17/2018 2.5 mg 08:57 CDT Given 04/18/2018 2.5 mg 08:33 CDT medroxyprogesterone (proVERA) tablet 10 Given 04/18/2018 10 [...] Starting Tue04/11/18 at 1557, Until Tue04/18/18 at 211, Nausea/Vomiting PO, Place on tongue and allow to dissolve. oxyCODONE (ROXICODONE, OXY-IR) tablet Given 04/16/2018 5 mg 5-10 mg 20:56 CDT 5-10 mg, Oral, EVERY 6 HOURS PRN, Starting Tue04/13/18 at 1315, Until Tue04/18/18 at 2116, Pain PO Given 04/17/2018 5 mg 08:55 CDT Given 04/17/2018 5 mg 20:30 CDT polyethylene glycol 3350 (MIRALAX) packet 17 g 17 g (1 packet), Oral, DAILY PRN, Starting Tue04/14/18 at 1114, Until Tue04/18/18 at 211, Constipation PO, 8.5 GRAMS=0.5 PACKET 17 GRAMS=1 PACKET 34 GRAMS=2 PACKETS senna/docusate (SENOKOT-S) tablet 2 Given 04/14/2018 2 tablets tablet 12:11 CDT 2 tablet, Oral, TWICE DAILY, First dose on Tue04/14/18 at 1115, Until Discontinued, Hold for loose stools Given 04/14/2018 2 tablets 20:09 CDT Given 04/15/2018 2 tablets 08:31 CDT spironolactone (ALDACTONE) tablet 25 mg Given 04/17/2018 [...] 1 tablet 08:33 CDT warfarin (COUMADIN) tablet 7.5 mg Given [...] Tue04/18/18 at 2116, Warfarin Indication: DVT/PE/acute thromboembolism in this encounter
--- OUTSIDE RECORDS SUMMARY | 2018-05-08 21:25 | XMS REPORT | Encounter Summary ---
Author Author [facility] Organization [facility] Address Unknown Phone Unavailable Care Team Providers Care Mold Mover Name Role Phone No Pcp, Na PCP Unavailable Encounter Details Date Type Department Care Team Description 04/10/2018 Hospital [facility]iology [address] [place] [address] Social History Tobacco Use Types Packs/Day Years [...] daily. Further scripts to be given by PCP/ANESTHESIA ASSISTANT metFORMIN (GLUCOPHAGE) Take 500 mg by mouth [...] daily. Further scripts to be given by PCP/ANESTHESIA ASSISTANT nystatin (NYSTOP) 100,000 Apply to pannus twice [...]
--- OUTSIDE RECORDS SUMMARY | 2018-05-08 21:28 | XMS REPORT ---
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 Role Phone YANI CESAR Unavailable PROBLEMS Type Condition ICD9-CM Code LUH39-PI Code Onset Dates Condition Status SNOMED Code Problem USP current use of insulin Z79.4 Active 149337859 Problem Hyperlipidemia, unspecified hyperlipidemia type E78.5 Active 92807574 Problem Gastroparesis K31.84 Active 234372726 Problem PVD (peripheral vascular disease) I73.9 Active 041757775 Problem Anticoagulated by anticoagulation treatment Z79.01 Active 766479612 Problem Iron deficiency anemia due to chronic blood loss D50.0 Active 056087212 Problem Type 2 diabetes mellitus with foot ulcer E11.621 Active 8104769803895 Problem Type 2 diabetes mellitus without complications E11.9 Active 836396042 Problem Dysfunctional uterine bleeding N93.8 Active 27232373 Problem Atherosclerosis of [place] arteries of extremities with gangrene, 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 Active [id number] ALLERGIES No Information ENCOUNTERS Encounter Location Date Diagnosis [place] [id number] [place] [address] 86719- 8908 March, Acute embolism and thrombosis of left femoral vein I82.412 [place] [address] [place] [id number] [place] [address] 65078- 7216 March, PVD (peripheral vascular disease) I73.9 [place] [address] [place] [id number] [place] [address] 10827- 8981 March, Encounter for medication monitoring Z51.81 ; Iron deficiency anemia due to chronic blood loss D50.0 and Anticoagulated by anticoagulation treatment Z79.01 [place] [address] [place] [address] 86481- 5067 March, Encounter for medication monitoring Z51.81 [place] [address] [place] [id number] [place] [address] 65394- 8569 March, Iron deficiency anemia due to chronic blood loss D50.0 ; Type 2 diabetes mellitus with foot ulcer E11.621 and Dysfunctional uterine bleeding N93.8 [place] [address] [place] [id number] [place] [address] 94192- 7497 Feb, PVD (peripheral vascular disease) I73.9 [place] [address] 17896- 1634 Jan, [place] [address] 77471- 0284 Jan, PVD (peripheral vascular disease) I73.9 [place] [address] [place] [id number] [place] [address] 07838- 2589 Dec, PVD (peripheral vascular disease) I73.9 [place] [address] 15011- 1005 Dec, Pale complexion R23.1 and Severe anemia D64.9 [place] [address] [place] [id number] [place] [address] 81204- 7496 Nov, PVD (peripheral vascular disease) I73.9 [place] [address] [place] [id number] [place] [address] 50202- 0584 Nov, PVD (peripheral vascular disease) I73.9 [place] [address] [place] [id number] [place] [address] 24053- 4764 07 Oct, 2017 PVD (peripheral vascular disease) I73.9 [place] [address] [place] [id number] [place] [address] 24260- 2724 13 Sep, 2017 PVD (peripheral vascular disease) I73.9 [place] [address] [place] [id number] [place] [address] 82026- 3943 16 Aug, 2017 PVD (peripheral vascular disease) I73.9 [place] [address] [place] [address] [address] 8102 Jul, PVD (peripheral vascular disease) I73.9 [place] [address] [place] [id number] [place] [address] 09635- 3240 Jun, Type 2 diabetes mellitus without complications E11.9 ; Hyperlipidemia, unspecified hyperlipidemia type E78.5 and PVD (peripheral vascular disease) I73.9 [place] [id number] [place] [address] 64521- 5395 Jun, [place] [id number] [place] [address] 09585- 5209 Jun, Long-term use of high-risk medication Z79.899 [place] [address] [place] [id number] [place] [address] 20285- 2925 May, [place] [id number] [place] [address] 11872- 1808 May, Osteomyelitis, unspecified M86.9 [place] [id number] [place] [address] 65529- 7073 Apr, Atherosclerosis of [place] arteries of extremities with gangrene, 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 [address] [place] [address] 75719- 8261 March, Osteomyelitis, unspecified M86.9 [address] [place] [address] 56199- 9923 Feb, Atherosclerosis of [place] arteries of extremities with gangrene, 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 [address] [place] [address] 67682- 3661 Jan, Atherosclerosis of [place] arteries of extremities with gangrene, 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 [place] [address] [address] 9984 Jan, Type 2 diabetes mellitus without complications E11.9 ; USP current use of insulin Z79.4 ; Hyperlipidemia, unspecified hyperlipidemia type E78.5 ; Long-term use of high-risk medication Z79.899 and PVD (peripheral vascular disease) I73.9 [facility] [address] [place] [address] 57210- 8046 Dec, Cellulitis of right lower limb L03.115 [facility] [address] [place] [address] 41919- 2546 Dec, [facility] [address] [place] [id number] [place] [address] 15516- 2545 Nov, Atherosclerosis of [place] arteries of extremities with gangrene, 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 [facility] [address] [place] [id number] [place] [address] 42712- 0176 Nov, [facility] [address] [place] [id number] [place] [address] 72784- 6909 Nov, [facility] [address] [place] [id number] [place] [address] 10795- 5895 Oct, Other fluid overload E87.79 and Acute embolism and thrombosis of left femoral vein I82.412 [facility] [address] [place] [address] 68402- 7516 Oct, [facility] [address] [place] [address] 45633- 8824 Oct, [facility] [address] [place] [address] 92671- 6452 Oct, PVD (peripheral vascular disease) I73.9 [facility] [address] [place] [address] 24702 2542 Oct, Other fluid overload E87.79 and Acute embolism and thrombosis of left femoral vein I82.412 [facility] [address] [place] [address] 52124- 0924 Oct, [facility] [address] [address]- 2546 Oct, Atherosclerosis of [place] arteries of extremities with gangrene, 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 [facility] [address] [address]- 1545 10 Sep, 2016 [facility] [address] [place] [id number] [place] [address] 36077- 7624 Sep, [facility] [address] [address]- 7531 08 Sep, 2016 PVD (peripheral vascular disease) I73.9 [facility] [address] [place] [id number] [place] [address] 26206- 8113 07 Aug, 2016 Type 2 diabetes mellitus with foot ulcer E11.621 and PVD ( peripheral vascular disease) I73.9 [facility] [address] [place] [id number] [place] [address] 37289- 1350 30 Jul, 2016 [facility] [address] [place] [id number] [address]- 2207 Jul, [facility] [address] [address]- 8568 Jul, [facility] [address] [address]- 4994 Jul, [facility] [address] [address]- 8969 Jun, [facility] [address] [place] [address]- 1737 Jun, [facility] [address] [address]- 5048 Jun, [facility] [address] [place] [address]- 0810 May, [facility] [address] [address]- 2090 May, PVD (peripheral vascular disease) I73.9 ; Type 2 diabetes mellitus without complications E11.9 ; USP current use of insulin Z79.4 and Hyperlipidemia, unspecified hyperlipidemia type E78.5 [place] [address] [id number] [place] [address]- 8979 May, 2015 [facility] [place] [facility] [address] [id number] [place] [address]- 5537 May, 2015 [facility] [place] [facility] [address] [id number] [place] [address]- 8826 May, 2014 [facility] [place] [facility] [address] [id number] [place] [address]- 9453 14 Feb, 2015 [facility] [place] [facility] [address] [id number] [place] [address]- 2942 Feb, [facility] [place] [facility] [address] [id number] [place] [address]- 1543 Jan, [facility] [place] [facility] [address] [id number] [place] [address]- 1921 Jan, [facility] [place] [facility] [address] [id number] [place] [address]- 0194 Dec, [facility] [place] [facility] [address] [id number] [place] [address]- 4656 Dec, [facility] [place] [facility] [address] [id number] [place] [address]- 7602 Oct, [facility] [place] [facility] [address] [id number] [place] [address]- 1470 Oct, [facility] [place] [facility] [address] [id number] [place] [address]- 3379 Sep, [facility] [place] [facility] [address] [id number] [place] [address]- 9349 Sep, [facility] [place] [facility] [address] [id number] [place] [address]- 2835 Sep, [facility] [place] [facility] [address] [id number] [place] [address]- 5180 Sep, [facility] [place] [facility] [address] [id number] [place] [address]- 3403 Aug, [facility] [place] [facility] [address] [id number] [place] [address]- 3244 Aug, [facility] [place] [facility] [address] [id number] [place] [address]- 7010 Jul, [facility] [place] [facility] [address] [id number] [place] [address]- 0123 Jul, [facility] [place] [facility] [address] [id number] [place] [address]- 4573 Apr, [facility] [place] [facility] [address] [id number] [place] [address]- 9019 Apr, [facility] [place] [facility] [address] [id number] [place] 5910 Feb, [facility] [place] [facility] [address] [id number] [place] 5637 Feb, [facility] [place] [facility] [address] [id number] [place] [address]- 0037 Jan, [facility] [place] [facility] [address] [id number] [place] [address]- 9853 Jan, [facility] [place] [facility] [address] [id number] [place] [address]- 5467 Dec, [facility] [place] [facility] [address] [id number], [place] [address]- 3051 Dec, [facility] [place] [facility] [address] [id number], [place] [address]- 5661 Oct, [facility] [place] [facility] [address] [id number] [place] [address]- 2408 Oct, [facility] [place] [facility] [address] [id number] [place] 0468 Sep, [facility] [place] [facility] [address] [id number] [place]256 Sep, [facility] [place] [facility] [address] [id number] [place] [address]- 2546 Sep, [facility] [address] [id number] [place] [address]- 2546 Sep, [facility] [place] [facility] [address] [id number] [place] [address]- 2546 Sep, [facility] [address] [id number] [place] [address]- 2546 Sep, [facility] [place] [facility] [address] [id number] [place] [address]- 2546 Aug, [facility] [place] [facility] [address] [id number] [place] [address]- 2546 Jul, [facility] [place] [facility] [address] [id number] [place] [address]- 2546 Jun, [facility] [place] [facility] [address] [id number] [place] [address]- 2546 May, [facility] [address] [id number] [place] [address]- 5576 Apr, [facility] [place] [facility] [address] [id number] [place] [address]- 2546 Apr, [facility] [place] [facility] [address] [id number] [place] [address]- 2546 Apr, [facility] [place] [facility] [address] [id number] [place] [address]- 2546 March, [facility] [place] [facility] [address] [id number] [place] [address]- 2546 15 Jan, 2013 [facility] [place] [facility] [address] [id number] [place] [address]- 2546 Jan, [facility] [place] [facility] [address] [id number] [place] [address]- 2546 Jan, [facility] [place] [facility] [address] [id number] [place] [address] 2541 Jan, [facility] [place] [facility] [address] [id number] [place] [address]- 7572 Jan, [facility] [place] [facility] [address] [id number] [place] [address]- 6601 Dec, [facility] [place] [facility] [address] [id number] [place] [address]- 4188 18 Dec, 2012 [facility] [place] [facility] [address] [id number] [place] [address]- 9189 Dec, [facility] [place] [facility] [address] [id number] [place] [address]- 7449 Dec, [facility] [place] [facility] [address] [id number] [place] [address]- 6018 Dec, [facility] [place] [facility] [address] [id number] [place] [address]- 2200 Nov, [facility] [place] [facility] [address] [id number] [place] [address]- 8033 Nov, [facility] [place] [facility] [address] [id number] [place] [address]- 7144 Nov, [facility] [place] [facility] [address] [id number] [place] [address]- 4019 Nov, [facility] [place] [facility] [address] [id number] [place] [address]- 9139 Nov, [facility] [place] [facility] [address] [id number] [place] [address]- 0743 Nov, [facility] [place] [facility] [address] [id number] [place] [address]- 9645 Nov, [facility] [place] [facility] [address] [id number] [place] [address]- 5275 Nov, [facility] [place] [facility] [address] [id number] [place] [address]- 2612 Nov, [facility] [place] [facility] [address] [id number] [place] [address]- 9083 14 Sep, 2012 [facility] [place] [facility] [address] [id number] [place] [address]- 4964 14 Sep, 2012 [facility] [place] [facility] [address] [id number] [place] [address]- 2736 25 Jul, 2011 [facility] [place] [facility] [address] [id number] [place] [address]- 1296 17 Jul, 2011 [facility] [place] [facility] [address] [id number] [place] [address]- 2549 11 Jul, 2011 [facility] [place] [facility] [address] [id number] [place] [address]- 3024 10 Jul, 2012 [facility] [place] [facility] [address] [id number] [place] [address]- 0899 05 Jul, 2012 [facility] [place] [facility] [address] [id number] [place] [address]- 0287 05 Jul, 2012 [facility] [place] [facility] [address] [id number] [place] [address]- 0424 28 Jun, 2012 [facility] [place] [facility] [address] [id number] [place] [address]- 4671 20 Jun, 2012 [facility] [place] [facility] [address] [id number] [place] [address]- 6855 18 Jun, 2012 [facility] [place] [facility] [address] [id number] [place] [address]- 2545 17 Jun, 2012 [facility] [place] [facility] [address] [id number] [place] [address]- 7679 16 Jun, 2012 [facility] [place] [facility] [address] [id number] [place] [address]- 4451 14 Jun, 2012 [facility] [place] [facility] [address] [id number] [place] [address]- 1432 14 Jun, 2012 [facility] [place] [facility] [address] [id number] [place] [address]- 0222 Jun, [facility] [address] [id number] [place] [address]- 8653 May, [facility] [place] [facility] [address] [id number] [place] [address]- 5566 May, [facility] [place] [facility] [address] [id number] [place] [address]- 4086 Apr, [facility] [place] [facility] [address] [id number] [place] [address]- 6796 March, [facility] [place] [facility] [address] [id number] [place] [address] March, [facility] [place] [facility] [address] [id number] [place] [address] March, [facility] [place] [facility] [address] [id number] [place] [address] March, [facility] [place] [facility] [address] [id number] [place] [address] Feb, [facility] [place] [facility] [address] [id number] [place] [address] Feb, [facility] [place] [facility] [address] [id number] [place] [address] Feb, [facility] [place] [facility] [address] [id number] [place] [address] Jan, [facility] [place] [facility] [address] [id number] [place] [address] Dec, [facility] [place] [facility] [address] [id number] [place] [address] Dec, [facility] [place] [facility] [address] [id number] [place] [address] Dec, [facility] [place] [facility] [address] [id number] [place] [address] Dec, [facility] [place] [facility] [address] [id number] [address] Dec, [facility] [address] [id number] [address] Nov, [facility] [address] [id number] [address] Oct, [facility] [id number] [address] Sep, [facility] [id number] [address] Sep, [facility] [id number] [address] Aug, [facility] [id number] [address] Aug, [facility] [id number] [address] Nov, [facility] [address] [id number] [address] Aug, [facility] [address] [id number] [address] March, IMMUNIZATIONS No Known Immunizations SOCIAL HISTORY Never Assessed REASON FOR VISIT Hydrocodone 11/08 PLAN OF CARE VITAL SIGNS MEDICATIONS Medication Instructions Dosage Frequency Start Date End Date Duration Status Hydrocodone-Acetaminophen 7.5-325 MG Orally 3 times a day 1 tablet 8h Oct, 28 days Active RESULTS No Results PROCEDURES [...]
[2018-05-08] MEDS ORDERED: NS IV PRN (21:30)
[2018-05-08 22:00] VITALS: BP 84/56
[2018-05-08] MEDS: NOREPINEPHRINE 4 MG in NS (IVPB) 250 ML IV SCH (22:17)
[2018-05-08 22:26] VITALS: BP 84/40
[2018-05-08] MEDS: VANCOMYCIN 1 GM/NS 250 ML IVPB IV SCH ×2 (22:38)
[2018-05-08] MEDS: HYDROcodone/APAP 7.5 MG/325 MG (LORTAB, LORCET PLUS) TABLET PO PRN (22:38)
[2018-05-08] MEDS ORDERED: RT-ALBUTEROL/IPRATROPIUM 3 ML (DUONEB) VIAL INH PRN (22:45)
[2018-05-08 23:00] VITALS: BP 103/55
[2018-05-09] VITALS (27 sets, daily range): BP systolic 90–135; BP diastolic 42–84
[2018-05-09] MEDS: NS IV 1000 ML 1,000 ML IV SCH ×5 (02:17→21:35)
[2018-05-09 03:41] LABS: BASOPHILS # (AUTO) 0.1 10^3/uL (0.0-0.1); BASOPHILS % (AUTO) 1 % (0-10); EOSINOPHILS # (AUTO) 0.1 10^3/uL (0.0-0.3); EOSINOPHILS % (AUTO) 1 % (0-10); LYMPHOCYTES % (AUTO) 22 % (12-44); MEAN CORPUSCULAR HEMOGLOBIN 23 PG (25-34); MEAN CORPUSCULAR HGB CONC 30 G/DL (32-36); MEAN CORPUSCULAR VOLUME 77 FL (80-99); MEAN PLATELET VOLUME 9.2 FL (7.4-10.4); MONOCYTES # (AUTO) 0.6 X 10^3 (0.0-1.0); MONOCYTES % (AUTO) 6 % (0-12); NEUTROPHILS # (AUTO) 6.4 X 10^3 (1.8-7.8); NEUTROPHILS % (AUTO) 70 % (42-75); PLATELET COUNT 526 10^3/uL (130-400); RED BLOOD COUNT 2.58 10^6/uL (4.35-5.85); RED CELL DISTRIBUTION WIDTH 23.6 % (10.0-14.5); WHITE BLOOD COUNT 9.1 10^3/uL (4.3-11.0)
[2018-05-09 03:45] LABS: HEMATOCRIT 20 % (35-52)
[2018-05-09 03:52] LABS: INR 1.7 (0.8-1.4); PROTHROMBIN TIME PATIENT 19.7 SEC (12.2-14.7)
[2018-05-09 03:59] LABS: BUN/CREATININE RATIO 19; CALCIUM 7.9 MG/DL (8.5-10.1); CARBON DIOXIDE 19 MMOL/L (21-32); CHLORIDE 106 MMOL/L (98-107); CREATININE SERUM 0.67 MG/DL (0.60-1.30); GFR ESTIMATED > 60; GLUCOSE 373 MG/DL (70-105); MAGNESIUM 1.5 MG/DL (1.8-2.4); PHOSPHORUS 2.8 MG/DL (2.3-4.7); POTASSIUM 4.2 MMOL/L (3.6-5.0); SODIUM 134 MMOL/L (135-145)
[2018-05-09] MEDS: MAGNESIUM 1 GM/100 ML IVPB 100 ML IV SCH ×3 (04:49→05:46)
[2018-05-09] MEDS: inSUlin ASPART (NovoLOG) 1 UNIT/0.01 ML (CHARGE PER UNIT) SC SCH ×4 (04:49→21:34)
[2018-05-09] MEDS ORDERED: NS IV 500 ML 500 ML ONE (05:13)
--- NOTE | 2018-05-09 05:33 | Pulmonary Consultation ---
History of Present Illness History of Present Illness Date of Consultation 05/09/18 05:16 Time Seen by Provider: 05:16 Date of Admission History of Present Illness 48yo with hx intracardiac mass, chronic anemia, DM, and severe peripheral vascular disease and left BKA.of presented to ED secondary to dizziness, and fell out of wheelchair. PT was found to have severe sepsis, and anemia upon admission and was transfused 2 units. She was placed on severe sepsis protocol placed on vanco, rocephin, and given aggressive IVF. I am consulted for ICU management. She has had similar prior episodes. Allergies and Home Medications Allergies Coded Allergies: codeine (Unverified Allergy, Mild, 04/21/09) Penicillins (Verified Allergy, Unknown, 12/08/07) Home Medications Ferrous Sulfate 325 Mg Tablet, 325 MG PO TIDWM Prescribed by: ALEYDA LOPEZ on 03/31/18 0151 Past Eyxsqpu-Ghbusz-Rlwgyk Hx Past Med/Social Hx: Reviewed Nursing Past Med/Soc Hx Patient Social History Alcohol Use: Denies Use Recreational Drug Use: No Smoking Status: Current Everyday Smoker Type Used: Cigarettes Former Smoker, Quit: Aug 07, 2016 2nd Hand Smoke Exposure: Yes Recent Foreign Travel: No Contact w/Someone Who Travel: No Recent Infectious Disease Expo: No Recent Hopitalizations: Yes ([facility] BLOOD CLOT IN HEART) Physical Abuse: No Sexual Abuse: No Immunizations Up To Date Tetanus Booster (TDap): Less than 5yrs PED Vaccines UTD: No Date of Pneumonia Vaccine: Jun 12, 2008 Date of Influenza Vaccine: Sep 17, 2014 Seasonal Allergies Seasonal Allergies: No Past Medical History Surgeries: Yes Section, Gallbladder, Vascular Surgery Respiratory: Yes COPD 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, Peripheral Vascular Neurological: Yes Neuropathy 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 Disorders: No 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 Disorders: 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 Sexually Transmitted Disease: No HIV/AIDS: No Genitourinary: Yes Bladder Infection, Kidney Stones Gastrointestinal: No Musculoskeletal: Yes Amputee, Arthritis Endocrine: Yes (NON-COMPLIANCE) Diabetes, Insulin dep HEENT: No Cancer: No Psychosocial: Yes Depression Nursing Suicide Risk Score: 0 Integumentary: No Blood Disorders: Yes (iron deficiency anemia) Adverse Reaction/Blood Tranf: No Family Medical History Reviewed Nursing Family Hx Diabetes mellitus 19 FATHER 19 MOTHER G8 BROTHER G8 SISTER Myocardial infarction 19 MOTHER Heart Disease, Diabetes Review of Systems Time Seen by Provider: 05:33 Constitutional: Sweats, Weakness, Malaise; No: Fever, Chills, Other Eyes: No: Pain, Vision change, Conjunctivae inflammation, Eyelid inflammation, Other, Redness ENT: Nose congestion; No: Ear pain, Ear discharge, Nose pain, Nose discharge, Mouth pain, Mouth swelling, Throat pain, Throat swelling, Other Respiratory: Cough, Dry, SOB with excertion Cardiovascular: No: Chest Pain, Palpitations, Orthopnea, Paroxysmal Noc. Dyspnea, Edema, Lt Headedness, Other Gastrointestinal: No: Nausea, Vomiting, Abdominal Pain, Diarrhea, Constipation , Melena, Hematochezia, Other Neurological: Weakness, Incoordination, Confusion Exam Exam Vital Signs Date Time Temp Pulse Resp B/P (MAP) Pulse Ox O2 Delivery O2 Flow Rate FiO2 05/09/18 04:00 97 Room Air 05/09/18 03:51 98.6 05/09/18 02:00 77 12 99/57 (71) 97 Room Air 05/09/18 01:00 76 05/09/18 01:00 75 14 90/47 (61) 97 Room Air 05/09/18 00:00 85 10 99/51 (67) 96 Room Air 05/09/18 00:00 97 Room Air 05/08/18 23:00 87 15 103/55 (71) 99 Room Air 05/08/18 22:26 89 98 05/08/18 22:00 90 15 84/56 (65) 100 Room Air 05/08/18 21:07 87 05/08/18 21:00 90 23 103/53 (70) 89 Room Air 05/08/18 20:45 98.6 90 22 93/45 (61) 100 Room Air 05/08/18 20:35 98 Room Air 05/08/18 20:30 97.5 87 18 126/66 (50) 100 Room Air 05/08/18 19:36 97.5 88 18 76/37 (50) 100 Room Air I & O 05/09/18 07:00 Intake Total 3883 ml Output Total 975 ml Balance 2908 ml General Appearance: Chronically ill, Mild Distress, Thin HEENT: PERRL/EOMI, Pale Conjunctivae (L), Pale Conjunctivae (R) Neck: Non Tender, Supple Respiratory: Lungs Clear, Normal Breath Sounds Cardiovascular: Regular Rate, Rhythm, No Murmur Capillary Refill: Less Than 3 Seconds Gastrointestinal: normal bowel sounds, non tender, soft Extremity: Normal Capillary Refill, Slow Capillary Refill, Other (left BKA) Neurologic/Psychiatric: Alert, Oriented x3, No Motor/Sensory Deficits Skin: Normal Color, Warm/Dry Lymphatic: No Adenopathy Results Lab Laboratory Tests 05/08/18 17:46 05/09/18 03:30 Assessment/Plan Assessment/Plan Severe sepsis -Aggressive IVF -Continue VancoAndiephin -barnes cultures pending Severe anemia -S/p 2 units of PRBC Hb increased to only 6.0 from 5.5 -pt has another 2 units of PRBC ordered metabolic lactic acidosis -IVF and monitor -Repeat LA Hypomag -replace Dehydration -IVF hx of left ventricular mass -consult cardiology -PT has been evaluated at recently severe PVD hx of BKA Hx of methamphetamine use -Check UDS tobacco dependance -education 255 OPHELIA GARCIA DO May 09, 2018 05:33
[2018-05-09] MEDS: POTASSIUM CL 10MEQ/50ML IVPB 50 ML IV SCH (05:34)
[2018-05-09] MEDS: KCL 20 MEQ TAB (K-DUR) PO SCH (05:46)
[2018-05-09] MEDS: HYDROcodone/APAP 7.5 MG/325 MG (LORTAB, LORCET PLUS) TABLET PO PRN ×2 (05:50→18:04)
[2018-05-09 06:33] LABS: AMPHETAMINE SCREEN, URINE POSITIVE (NEGATIVE); BARBITURATE SCREEN URINE NEGATIVE (NEGATIVE); BENZODIAZEPINES SCREEN URINE NEGATIVE (NEGATIVE); CANNABINOID SCREEN, URINE NEGATIVE (NEGATIVE); COCAINE SCREEN URINE NEGATIVE (NEGATIVE); METHADONE STAT NEGATIVE (NEGATIVE); METHAMPHETAMINE SCREEN URINE S POSITIVE (NEGATIVE); OPIATE SCREEN URINE POSITIVE (NEGATIVE); OXYCODONE STAT NEGATIVE (NEGATIVE); PROPOXYPHENE STAT NEGATIVE (NEGATIVE); TRICYCLIC ANTIDEPRESSANTS SCRE NEGATIVE (NEGATIVE)
[2018-05-09] MEDS: RT-ALBUTEROL/IPRATROPIUM 3 ML (DUONEB) VIAL INH SCH ×2 (07:20→18:28)
--- NOTE | 2018-05-09 08:15 | Diagnostic Imaging Report ---
INDICATION: Sepsis. COMPARISON: 05/08/2018. FINDINGS: Single view of the chest demonstrates stable right IJ catheter. There is unchanged bibasilar atelectasis. There is no focal infiltrate, effusion or obvious pneumothorax. Heart is prominent without pulmonary edema. IMPRESSION: Stable basilar atelectasis. Dictated by: Dictated on workstation # [id number]
[2018-05-09] MEDS: VANCOMYCIN 1 GM/NS 250 ML IVPB IV SCH ×4 (08:46→21:34)
--- NOTE | 2018-05-09 09:15 | History & Physicial ([facility]) ---
HPI History of Present Illness: Patient presented to ED last night after becoming dizzy and falling from standing. Patient was admitted at [facility] from 04/10 - 04/18 last month, and it was discovered that she had a large mass in her left ventricle - she was supposed to have a follow up appt at on 05/02, but missed that appointment. The patient his the right front of her head when falling; she is on some type of blood thinner, but she is a fairly poor historian and could not remember exactly what she was taking. Initial pressure was 76/37 on arrival, with initial Hgb 5.5. Patient does have a somewhat long history of severe anemia requiring blood transfusions, although per chart review a blood disorder has never been identified. She had a CT head that was negative for acute process; a CXR that showed right IJ with tip over the SVC and likely chronic changes in the lung parenchyma. She was also noted to have a UDS that is positive for opiates, amphetamines and methamphetamines. She was admitted to the ICU for blood products, pressure support, and started on IV abx for suspected sepsis. Source: RN/, RN notes reviewed, old records Exam Limitations: clinical condition Date seen by provider: May 09, 2018 Time Seen by Provider: 15:30 Attending Physician Mayra Yuan DO PCP Dave Cesar MD Consult Dr. Agrawal Date of Admission May 08, 2018 at 20:23 Home Medications Home Medications Reviewed patient Home Medication Reconciliation performed by pharmacy medication reconciliations mathematical technician and/or nursing. Patients Allergies have been reviewed. Allergies Coded Allergies: codeine (Unverified Allergy, Mild, 04/21/09) Penicillins (Verified Allergy, Unknown, 12/08/07) SPZ-[id number]-Aojwcc Hx Patient Social History Marrital Status: Living Status: lives independently with family Employed/Student: unemployed Alcohol Use: Denies Use Recreational Drug Use: No (however UDS positive for amphetamines and methamphetamines) Smoking Status: Current Everyday Smoker Type Used: Cigarettes 2nd Hand Smoke Exposure: Yes Recent Foreign Travel: No Contact w/other who traveled: No Recent Hopitalizations: Yes ( BLOOD CLOT IN HEART) Recent Infectious Disease Expo: No Physical Abuse Screen: No Sexual Abuse: No Immunizations Up To Date Tetanus Booster (TDap): Less than 5yrs Date of Pneumonia Vaccine: Jun 12, 2008 Date of Influenza Vaccine: Sep 17, 2014 Past Medical History PMHx: Diabetes Mellitus - Type 2 (dx age 33) - insulin requiring Anxiety Atherosclerotic occlusive disease Superficial femoral vein thrombus Chronic anemia Tobacco Abuse Neuropathy Kidney Stones Depression Gastroparesis Hyperlipidemia Uterine Fibroids Dysfunctional Uterine Bleeding PSH: cholecystectomy Left leg arterial bypass Left BKA Section Vascular Stenting Family Medical History Significant Family History: Heart Disease, Diabetes Family History: Diabetes mellitus 19 FATHER 19 MOTHER G8 BROTHER G8 SISTER Myocardial infarction 19 MOTHER Review of Systems ([facility]) Constitutional: see HPI, dizziness, malaise, weakness EENTM: no symptoms reported Respiratory: no symptoms reported; No hemoptysis, No stridor Cardiovascular: see HPI; No chest pain, No Hx of Intervention, No palpitations , No vascular heart diseas Gastrointestinal: no symptoms reported Genitourinary: no symptoms reported : No LMP: May 08, 2018 Musculoskeletal: no symptoms reported Skin: no symptoms reported Psychiatric/Neurological: Anxiety, Depressed, Weakness Reviewed Test Results Reviewed Test Results Lab Microbiology 05/08/18 Blood Culture - Preliminary, Resulted No growth 05/08/18 Blood Culture - Preliminary, Resulted No growth 05/08/18 18:10: Lactic Acid Level 2.05*H 05/08/18 19:49: Lactic Acid Level 2.69*H 05/09/18 06:10: Lactic Acid Level 0.95 Laboratory Tests Test 05/08/18 17:46 05/08/18 18:10 05/08/18 19:04 05/08/18 19:49 Range/Units White Blood Count 11.4 H 4.3-11.0 10^3/uL Red Blood Count 2.66 L 4.35-5.85 10^6/uL Hemoglobin 5.5 *L 11.5-16.0 G/DL Hematocrit 20 *L 35-52 % Mean Corpuscular Volume 74 L 80-99 FL Mean Corpuscular Hemoglobin 21 L 25-34 PG Mean Corpuscular Hemoglobin Concent 28 L 32-36 G/DL Red Cell Distribution Width 26.8 H 10.0-14.5 % Platelet Count 695 H 130-400 10^3/uL Mean Platelet Volume 9.7 7.4-10.4 FL Neutrophils (%) (Auto) 83 H 42-75 % Lymphocytes (%) (Auto) 10 L 12-44 % Monocytes (%) (Auto) 6 0-12 % Eosinophils (%) (Auto) 0 0-10 % Basophils (%) (Auto) 1 0-10 % Neutrophils # (Auto) 9.5 H 1.8-7.8 X 10^3 Lymphocytes # (Auto) 1.1 1.0-4.0 X 10^3 Monocytes # (Auto) 0.7 0.0-1.0 X 10^3 Eosinophils # (Auto) 0.1 0.0-0.3 10^3/uL Basophils # (Auto) 0.1 0.0-0.1 10^3/uL Prothrombin Time 21.0 H 12.2-14.7 SEC INR Comment 1.8 H 0.8-1.4 Activated Partial Thromboplast Time 26 24-35 SEC Sodium Level 127 L 135-145 MMOL/L Potassium Level 4.9 3.6-5.0 MMOL/L Chloride Level 94 L 98-107 MMOL/L Carbon Dioxide Level 22 21-32 MMOL/L Anion Gap 11 5-14 MMOL/L Blood Urea Nitrogen 17 7-18 MG/DL Creatinine 1.00 0.60-1.30 MG/DL Estimat Glomerular Filtration Rate 59 BUN/Creatinine Ratio 17 Glucose Level 653 *H 70-105 MG/DL Calcium Level 9.4 8.5-10.1 MG/DL Total Bilirubin 0.4 0.1-1.0 MG/DL Aspartate Amino Transf (AST/SGOT) 17 5-34 U/L Alanine Aminotransferase (ALT/SGPT) 13 0-55 U/L Alkaline Phosphatase 76 40-136 U/L Total Protein 6.7 6.4-8.2 GM/DL Albumin 3.7 3.2-4.5 GM/DL Lactic Acid Level 2.05 *H 2.69 *H 0.50-2.00 MMOL/L Urine Color YELLOW Urine Clarity CLEAR Urine pH 6.5 5-9 Urine Specific Pierce 1.005 L 1.016-1.022 Urine Protein 3+ H NEGATIVE Urine Glucose (UA) 4+ H NEGATIVE Urine Ketones NEGATIVE NEGATIVE Urine Nitrite NEGATIVE NEGATIVE Urine Bilirubin NEGATIVE NEGATIVE Urine Urobilinogen NORMAL NORMAL MG/DL Urine Leukocyte Esterase 1+ H NEGATIVE Urine RBC (Auto) 5+ H NEGATIVE Urine RBC 50-100 H /HPF Urine WBC RARE /HPF Urine Squamous Epithelial Cells 0-2 /HPF Urine Crystals NONE /LPF Urine Bacteria NEGATIVE /HPF Urine Casts NONE /LPF Urine Mucus NEGATIVE /LPF Urine Culture Indicated NO Test 05/08/18 20:22 05/09/18 03:30 05/09/18 05:59 05/09/18 06:10 Range/Units Glucometer 427 *H 70-110 MG/DL White Blood Count 9.1 4.3-11.0 10^3/uL Red Blood Count 2.58 L 4.35-5.85 10^6/uL Hemoglobin 6.0 *L 11.5-16.0 G/DL Hematocrit 20 *L 35-52 % Mean Corpuscular Volume 77 L 80-99 FL Mean Corpuscular Hemoglobin 23 L 25-34 PG Mean Corpuscular Hemoglobin Concent 30 L 32-36 G/DL Red Cell Distribution Width 23.6 H 10.0-14.5 % Platelet Count 526 H 130-400 10^3/uL Mean Platelet Volume 9.2 7.4-10.4 FL Neutrophils (%) (Auto) 70 42-75 % Lymphocytes (%) (Auto) 22 12-44 % Monocytes (%) (Auto) 6 0-12 % Eosinophils (%) (Auto) 1 0-10 % Basophils (%) (Auto) 1 0-10 % Neutrophils # (Auto) 6.4 1.8-7.8 X 10^3 Lymphocytes # (Auto) 2.0 1.0-4.0 X 10^3 Monocytes # (Auto) 0.6 0.0-1.0 X 10^3 Eosinophils # (Auto) 0.1 0.0-0.3 10^3/uL Basophils # (Auto) 0.1 0.0-0.1 10^3/uL Prothrombin Time 19.7 H 12.2-14.7 SEC INR Comment 1.7 H 0.8-1.4 Sodium Level 134 L 135-145 MMOL/L Potassium Level 4.2 3.6-5.0 MMOL/L Chloride Level 106 98-107 MMOL/L Carbon Dioxide Level 19 L 21-32 MMOL/L Anion Gap 9 5-14 MMOL/L Blood Urea Nitrogen 13 7-18 MG/DL Creatinine 0.67 0.60-1.30 MG/DL Estimat Glomerular Filtration Rate > 60 BUN/Creatinine Ratio 19 Glucose Level 373 H 70-105 MG/DL Calcium Level 7.9 L 8.5-10.1 MG/DL Phosphorus Level 2.8 2.3-4.7 MG/DL Magnesium Level 1.5 L 1.8-2.4 MG/DL C-Reactive Protein High Sensitivity 0.11 0.00-0.50 MG/DL Urine Opiates Screen POSITIVE H NEGATIVE Urine Oxycodone Screen NEGATIVE NEGATIVE Urine Methadone Screen NEGATIVE NEGATIVE Urine Propoxyphene Screen NEGATIVE NEGATIVE Urine Barbiturates Screen NEGATIVE NEGATIVE Ur Tricyclic Antidepressants Screen NEGATIVE NEGATIVE Urine Phencyclidine Screen NEGATIVE NEGATIVE Urine Amphetamines Screen POSITIVE H NEGATIVE Urine Methamphetamines Screen POSITIVE H NEGATIVE Urine Benzodiazepines Screen NEGATIVE NEGATIVE Urine Cocaine Screen NEGATIVE NEGATIVE Urine Cannabinoids Screen NEGATIVE NEGATIVE Lactic Acid Level 0.95 0.50-2.00 MMOL/L Test 05/09/18 11:42 05/09/18 16:54 05/09/18 21:10 Range/Units Glucometer 534 *H 346 H 418 *H 70-110 MG/DL Radiology CT Head - negative for acute process CXR - no acute infiltrate Physical Exam-([facility]) Physical Exam Vital Signs VS - Last 72 Hours, by Label 05/08/18 05/08/18 05/08/18 05/08/18 19:36 20:30 20:35 20:45 Temp 97.5 97.5 98.6 Pulse 88 87 90 Resp 18 18 22 B/P (MAP) 76/37 (50) 126/66 (50) 93/45 (61) Pulse Ox 100 100 98 100 O2 Delivery Room Air Room Air Room Air Room Air 05/08/18 05/08/18 05/08/18 05/08/18 21:00 21:07 22:00 22:26 Pulse 90 87 90 89 Resp 23 15 B/P (MAP) 103/53 (70) 84/56 (65) Pulse Ox 89 100 98 O2 Delivery Room Air Room Air 05/08/18 05/09/18 05/09/18 05/09/18 23:00 00:00 00:00 01:00 Pulse 87 85 75 Resp 15 10 14 B/P (MAP) 103/55 (71) 99/51 (67) 90/47 (61) Pulse Ox 99 97 96 97 O2 Delivery Room Air Room Air Room Air Room Air 05/09/18 05/09/18 05/09/18 05/09/18 01:00 02:00 03:00 03:51 Temp 98.6 Pulse 76 77 74 Resp 12 14 B/P (MAP) 99/57 (71) 91/61 (71) Pulse Ox 97 96 O2 Delivery Room Air Room Air 05/09/18 05/09/18 05/09/18 05/09/18 04:00 04:00 05:00 05:28 Temp 98.5 Pulse 84 73 80 Resp 15 15 B/P (MAP) 97/42 (60) 111/56 (74) 106/47 Pulse Ox 98 97 96 O2 Delivery Room Air Room Air Room Air 05/09/18 05/09/18 05/09/18 05/09/18 05:52 06:00 07:00 07:00 Temp 98.3 Pulse 80 79 82 87 Resp 18 26 B/P (MAP) 111/56 118/64 (82) 102/59 (73) Pulse Ox 100 100 99 O2 Delivery Room Air Room Air Room Air 05/09/18 05/09/18 05/09/18 05/09/18 07:20 07:30 08:00 08:00 Temp 98.4 Pulse 85 90 Resp 16 19 B/P (MAP) 119/56 111/50 (70) Pulse Ox 98 97 100 96 O2 Delivery Room Air Room Air Room Air Room Air 05/09/18 05/09/18 05/09/18 05/09/18 08:05 09:00 10:00 10:00 Temp 98.4 97.9 Pulse 85 85 87 Resp 15 24 12 B/P (MAP) 135/70 (91) 135/70 120/70 (87) Pulse Ox 99 94 99 O2 Delivery Room Air Isolette Room Air 05/09/18 05/09/18 05/09/18 05/09/18 10:26 11:00 12:00 12:05 Temp 97.4 98.4 Pulse 86 91 90 Resp 18 19 16 B/P (MAP) 130/73 134/77 (96) 129/73 (91) Pulse Ox 99 98 98 O2 Delivery Room Air Room Air Room Air 05/09/18 05/09/18 05/09/18 05/09/18 12:05 12:06 13:00 14:00 Temp 98.4 Pulse 83 92 86 Resp 14 19 16 B/P (MAP) 129/73 126/70 (88) 106/52 (70) Pulse Ox 98 97 97 99 O2 Delivery Room Air Room Air Room Air Room Air 05/09/18 05/09/18 05/09/18 05/09/18 15:00 16:00 16:30 16:30 Temp 99.6 Pulse 79 80 Resp 16 11 B/P (MAP) 118/67 (84) 126/67 (86) Pulse Ox 99 100 98 O2 Delivery Room Air Room Air Room Air 05/09/18 05/09/18 05/09/18 05/09/18 17:00 18:00 18:28 19:00 Pulse 89 90 90 Resp 14 22 B/P (MAP) 113/67 (82) 106/84 (91) Pulse Ox 100 93 O2 Delivery Room Air Room Air Room Air 05/09/18 05/09/18 20:00 20:00 Temp 97.1 Pulse Ox 99 O2 Delivery Room Air Capillary Refill : Less Than 3 Seconds General Appearance: WD/WN, mild distress Eyes: Bilateral Eye Normal Inspection, Bilateral Eye EOMI, Bilateral Eye Conjunctivae Pale HEENT: normal ENT inspection; No scleral icterus (R), No scleral icterus (L); pale conjunctivae (R), pale conjunctivae (L); No photophobia Neck: non-tender, full range of motion, supple, normal inspection Respiratory: chest non-tender, no respiratory distress, no accessory muscle use , decreased breath sounds Cardiovascular: regular rate, rhythm, systolic murmur Gastrointestinal: normal bowel sounds, non tender, soft, no pulsatile mass Rectal: deferred Genital/Rectal: other (brisk bright red bleeding per vagina) Extremities: non-tender, no calf tenderness, other (left BKA) Neurologic/Psychiatric: employment services director II-XII nml as tested, no motor/sensory deficits, alert, normal mood/affect, oriented x 3 Skin: warm/dry, pallor Assessment/Plan Assessment/Plan Admission Dx Profound Hypotension Severe Anemia 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 Severely Decreased LVEF Anticoagulation Therapy Dysfunctional Uterine Bleeding Type II Diabetes with Compilations, Insulin Dependent Neuropathy Severe Peripheral Vascular Disease Polysubstance Abuse Pulmonary Hypertension Admission Status: Inpatient Order (span 2 midnights) Reason for Inpatient Admission: treatment and stabilization of admission conditions Assessment & Plan Profound Hypotension 05/09 -pt started on IV fluids at bolus rate and levophed titrated as needed for pressure support Severe Anemia 05/09 -5.5 --> 6.0 -s/p 2 units transfused overnight, receiving two additional units today per Dr. 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 05/09 -pt seen at ; pt noted to have left ventricular mass on CT, myxoma vs thrombus vs metastatic disease; same CT scan also identified a small right lower lung nodule -echo done at reports dilated left ventricle with EF of 15%; massive thrombus filling the majority of the left ventricle apex, with base attached to the wall but large portion of the thrombus highly mobile -pt started on coumadin therapy prior to discharge from , INR 1.8 this AM Severely Decreased LVEF 05/09 -echo at shows LVEF 15% in March 2018 -thrombus filling left ventricle as outlined above -global hypokinesis of left ventricle with akinetic mid to distal left ventricle segments -mild right ventricular dilation with mild to moderate right ventricular dysfunction -CVP >15 with increased pulmonary artery pressure; PASP = 53 mmHG -mild to moderate tricuspid regurgitation Anticoagulation Therapy 05/09 -coumadin -INR 1.7 --> 1.8 Dysfunctional Uterine Bleeding 05/09 -pt reportedly started her menses yesterday, brisk vaginal bleeding noted today - records indicate enlarged fibroid uterus, predominately intramural with lesser submucosal component, which is likely contributing to pt's bleeding -given amount of vaginal bleeding, would consider full coagulation panel in AM if bleeding has not slowed, and consider aggressive measures to attempt to control uterine bleeding; uterine artery embolization, tranexamic acid, or consult to [facility] for other potential aggressive measures to control bleeding, as this is currently the notable source of blood loss, with patient saturating up to one pad per hour or more, with volume not exactly measured; could consider cytotec, as side effects are minimal, but as uterus is enlarged and fibroids prevent uterus from clamping down, this may not be successful Type II Diabetes with Compilations, Insulin Dependent 05/09 -accuchecks AC and HS -sliding scale B Neuropathy 05/09 -will resume home gabapentin Severe Peripheral Vascular Disease Polysubstance Abuse 05/09 -UDS positive for opiates, amphetamines and methamphetamines Pulmonary Hypertension 05/09 -echo from showed PASP 53 mmHg Patient also had cardiac cath while at on 04/13, which was clean, The patient is critically ill and remains at high risk for further decompensation; a biopsy of her left ventricular mass was recommended, however there is no evidence that this has yet been done. Given her extremely low EF, maintaining her IV hydration in balance with her heart failure may become quite precarious. Dr. Agrawal has been consulted for assistance with critical care management. Should the pt's vaginal bleeding not slow by tomorrow, would consider taking aggressive steps to control bleeding, as this may be one source of pt's anemia. She will likely require at least 3-4 nights in the hospital for treatment and stabilization. CODE STATUS: FULL CODE Clinical Quality Measures DVT/VTE Risk/Contraindication: Risk Factor Score Per Nursin RFS Level Per Nursing on Admit: 4+=Very High Copy Copies To 1: DAVE CESAR MD, MARGARET E DO May 09, 2018 09:15
[2018-05-09] MEDS: NOREPINEPHRINE 4 MG in NS (IVPB) 250 ML IV SCH (10:29)
[2018-05-09] MEDS ORDERED: MEDR10TA9 PO (11:19)
[2018-05-09] MEDS ORDERED: LISI2.5T PO (11:19)
[2018-05-09] MEDS ORDERED: ATOR80TA64 PO (11:19)
[2018-05-09] MEDS ORDERED: SPIR25TA3 PO (11:19)
[2018-05-09] MEDS ORDERED: FURO40TA4 PO (11:19)
[2018-05-09] MEDS ORDERED: CARV3.12 PO (11:19)
[2018-05-09] MEDS ORDERED: HYDR-3816 PO (11:19)
[2018-05-09] MEDS ORDERED: WARF7.5T49 PO (11:19)
[2018-05-09] MEDS: warFARin 7.5 MG (COUMADIN) TAB PO SCH (18:04)
[2018-05-09] MEDS: cefTRIAXone 1 GM/NS 50 ML IVPB IV SCH ×2 (20:04)
[2018-05-10] VITALS (22 sets, daily range): BP systolic 97–131; BP diastolic 43–82
[2018-05-10] MEDS: NOREPINEPHRINE 4 MG in NS (IVPB) 250 ML IV SCH ×2 (00:13→14:53)
[2018-05-10] MEDS: HYDROcodone/APAP 7.5 MG/325 MG (LORTAB, LORCET PLUS) TABLET PO PRN ×3 (00:14→16:43)
[2018-05-10 03:30] LABS: BASOPHILS # (AUTO) 0.1 10^3/uL (0.0-0.1); BASOPHILS % (AUTO) 1 % (0-10); EOSINOPHILS # (AUTO) 0.4 10^3/uL (0.0-0.3); EOSINOPHILS % (AUTO) 4 % (0-10); HEMATOCRIT 24 % (35-52); HEMOGLOBIN 7.6 G/DL (11.5-16.0); LYMPHOCYTES # (AUTO) 1.9 X 10^3 (1.0-4.0); LYMPHOCYTES % (AUTO) 20 % (12-44); MEAN CORPUSCULAR HEMOGLOBIN 25 PG (25-34); MEAN CORPUSCULAR HGB CONC 31 G/DL (32-36); MEAN CORPUSCULAR VOLUME 80 FL (80-99); MEAN PLATELET VOLUME 9.4 FL (7.4-10.4); MONOCYTES # (AUTO) 0.7 X 10^3 (0.0-1.0); MONOCYTES % (AUTO) 7 % (0-12); NEUTROPHILS # (AUTO) 6.4 X 10^3 (1.8-7.8); NEUTROPHILS % (AUTO) 67 % (42-75); PLATELET COUNT 495 10^3/uL (130-400); RED BLOOD COUNT 3.06 10^6/uL (4.35-5.85); RED CELL DISTRIBUTION WIDTH 21.8 % (10.0-14.5); WHITE BLOOD COUNT 9.5 10^3/uL (4.3-11.0)
[2018-05-10 03:54] LABS: INR 1.3 (0.8-1.4); PROTHROMBIN TIME PATIENT 16.5 SEC (12.2-14.7)
[2018-05-10 04:16] LABS: BUN/CREATININE RATIO 19; CARBON DIOXIDE 20 MMOL/L (21-32); CHLORIDE 108 MMOL/L (98-107); CREATININE SERUM 0.69 MG/DL (0.60-1.30); GFR ESTIMATED > 60; GLUCOSE 252 MG/DL (70-105); MAGNESIUM 1.6 MG/DL (1.8-2.4); PHOSPHORUS 2.9 MG/DL (2.3-4.7); POTASSIUM 4.7 MMOL/L (3.6-5.0); SODIUM 134 MMOL/L (135-145)
[2018-05-10] MEDS: POTASSIUM CL 10MEQ/50ML IVPB 50 ML IV SCH (04:23)
[2018-05-10] MEDS: KCL 20 MEQ TAB (K-DUR) PO SCH (04:24)
[2018-05-10] MEDS: MAGNESIUM 1 GM/100 ML IVPB 100 ML IV SCH ×3 (04:24→06:39)
[2018-05-10] MEDS: inSUlin ASPART (NovoLOG) 1 UNIT/0.01 ML (CHARGE PER UNIT) SC SCH ×4 (05:46→22:01)
[2018-05-10] MEDS: NS IV 1000 ML 1,000 ML IV SCH ×2 (06:39→16:41)
[2018-05-10] MEDS: RT-ALBUTEROL/IPRATROPIUM 3 ML (DUONEB) VIAL INH SCH ×2 (06:55→19:03)
[2018-05-10] MEDS ORDERED: TROUGH ORDER-PHARMACY XX ONE (08:30)
[2018-05-10] MEDS: CARVEDILOL 3.125 MG (COREG) TABLET PO SCH ×2 (08:51→22:02)
[2018-05-10] MEDS: SPIRONOLACTONE 25 MG (ALDACTONE) TAB PO SCH ×2 (08:51→22:01)
[2018-05-10] MEDS ORDERED: medroxyPROGESTERone 10 MG (PROVERA) TAB PO SCH (09:00)
[2018-05-10] MEDS ORDERED: NON-FORMULARY MEDICATION 1 EA EA (Atorvastatin Calcium (Lipitor) 80 MG) PO SCH (09:00)
[2018-05-10] MEDS ORDERED: NON-FORMULARY MEDICATION 1 EA EA (Carvedilol (Coreg) 3.125 MG) PO SCH (09:00)
--- NOTE | 2018-05-10 09:33 | Diagnostic Imaging Report ---
INDICATION: Severe sepsis. TECHNIQUE: Single view chest at 3:28 AM. CORRELATION STUDY: 05/09/2018. FINDINGS: The right-sided central line is unchanged. The heart size, mediastinum, and vasculature are generally stable. Suggestion of minimal basilar infiltrate versus atelectasis in the lung bases, left greater than right, is generally stable. IMPRESSION: Bibasilar areas of atelectasis versus infiltrate, left greater than right, appearing generally unchanged. No new abnormality. Dictated by: Dictated on workstation # [id number]
[2018-05-10] MEDS: VANCOMYCIN 1 GM/NS 250 ML IVPB IV SCH ×6 (09:52→18:09)
--- NOTE | 2018-05-10 10:10 | Progress Note (SOAP) ---
Subjective Subjective/Events-last exam Pt very tearful this morning, crying that she wants to go home. Vaginal bleeding has slowed down significantly overnight. No acute events overnight. Review of Systems Date Seen by Provider: May 10, 2018 Time Seen by Provider: 09:28 General: No Chills, No Night Sweats HEENT: No Head Aches, No Visual Changes, No Dysphasia Pulmonary: Dyspnea, Cough Cardiovascular: Edema; No: Chest Pain, Palpitations Gastrointestinal: No: Nausea, Vomiting, Abdominal Pain Genitourinary: No Hematuria Neurological: No: Numbness, Incoordination, Change in speech, Confusion, Seizures Focused Exam Lactate Level 05/08/18 18:10: Lactic Acid Level 2.05*H 05/08/18 19:49: Lactic Acid Level 2.69*H 05/09/18 06:10: Lactic Acid Level 0.95 Objective Exam Last Set of Vital Signs Vital Signs Date Time Temp Pulse Resp B/P (MAP) Pulse Ox O2 Delivery O2 Flow Rate FiO2 05/10/18 08:00 81 20 97/60 (72) 99 Room Air 05/10/18 04:00 97.8 Capillary Refill : Less Than 3 Seconds I&O Intake and Output 05/10/18 00:00 Intake Total 5513 ml Output Total 3500 ml Balance 2013 ml Intake Oral 1813 ml IV Total 3700 ml Output Urine Total 3500 ml General: Alert, Oriented X3, Cooperative, No Acute Distress HEENT: Atraumatic, EOMI, Mucous Memb Moist/[place] Neck: Supple, No Thyromegaly Lungs: Other (diminished, wheezing) Heart: Regular Rate, Normal S1, Normal S2, Other (systolic murmur) Abdomen: Normal Bowel Sounds, Soft, No Tenderness, No Masses Extremities: No Clubbing, No Cyanosis, Other (left BKA) Skin: No Rashes, No Significant Lesion Neuro: Normal Speech, Normal Tone, Sensation Intact, Cranial Nerves 3-12 NL Psych/Mental Status: Mental Status NL, Mood NL Results/Procedures Lab Laboratory Tests 05/09/18 11:42: Glucometer 534*H 05/09/18 16:54: Glucometer 346H 05/09/18 21:10: Glucometer 418*H 05/10/18 00:24: Glucometer 188H 05/10/18 03:25: White Blood Count 9.5, Red Blood Count 3.06L, Hemoglobin 7.6#L, Hematocrit 24L, Mean Corpuscular Volume 80, Mean Corpuscular Hemoglobin 25, Mean Corpuscular Hemoglobin Concent 31L, Red Cell Distribution Width 21.8H, Platelet Count 495H, Mean Platelet Volume 9.4, Neutrophils (%) (Auto) 67, Lymphocytes (%) (Auto) 20, Monocytes (%) (Auto) 7, Eosinophils (%) (Auto) 4, Basophils (%) (Auto) 1, Neutrophils # (Auto) 6.4, Lymphocytes # (Auto) 1.9, Monocytes # (Auto) 0.7, Eosinophils # (Auto) 0.4H, Basophils # (Auto) 0.1, Prothrombin Time 16.5H, INR Comment 1.3, Sodium Level 134L, Potassium Level 4.7, Chloride Level 108H, Carbon Dioxide Level 20L, Anion Gap 6, Blood Urea Nitrogen 13, Creatinine 0.69, Estimat Glomerular Filtration Rate > 60, BUN/Creatinine Ratio 19, Glucose Level 252H, Calcium Level 8.0L, Phosphorus Level 2.9, Magnesium Level 1.6L, C- Reactive Protein High Sensitivity 0.20 05/10/18 08:45: Vancomycin Level Trough 9.0L Microbiology 05/08/18 Blood Culture - Preliminary, Resulted No growth 05/08/18 MRSA Screen - Final, Complete MRSA not isolated Radiology CT Head - negative for acute process CXR - no acute infiltrate Assessment/Plan Assessment/Plan Assessment & Plan Profound Hypotension 05/09 -pt started on IV fluids at bolus rate and levophed titrated as needed for pressure support 05/10 -off pressors since yesterday evening and maintaining pressure -HTN medications on hold other than carvedilol with hold parameters -Day 2 Vanc and Zosyn for possible infection as cause of hypotension, with ventricular thrombus being possible source of infection Severe Anemia 05/09 -5.5 --> 6.0 -s/p 2 units transfused overnight, receiving two additional units today per Dr. 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 05/09 -pt seen at [facility]; pt noted to have left ventricular mass on CT, myxoma vs thrombus vs metastatic disease; same CT scan also identified a small right lower lung nodule -echo done at reports dilated left ventricle with EF of 15%; massive thrombus filling the majority of the left ventricle apex, with base attached to the wall but large portion of the thrombus highly mobile -pt started on coumadin therapy prior to discharge from , INR 1.8 this AM 05/10 -warfarin currently on hold due to brisk vaginal bleeding, which has slowed considerably -will restart tomorrow with lovenox bridge until therapeutic Severely Decreased LVEF 05/09 -echo at shows LVEF 15% in March 2018 -thrombus filling left ventricle as outlined above -global hypokinesis of left ventricle with akinetic mid to distal left ventricle segments -mild right ventricular dilation with mild to moderate right ventricular dysfunction -CVP >15 with increased pulmonary artery pressure; PASP = 53 mmHG -mild to moderate tricuspid regurgitation 05/10 -pt refusing to be very communicative this morning; did not keep follow up appt with [facility] 05/02 as scheduled -needs life vest due to low EF, but uninsured and compliance is also an issue -if pt not going to follow with , will consult cardiology and have her establish with them here Anticoagulation Therapy 05/09 -coumadin -INR 1.7 --> 1.8 05/10 -INR 1.7 --> 1.8 --> 1.3 -warfarin on hold currently due to brisk vaginal bleeding yesterday, will restart tomorrow if Hgb remains stable and bridge with lovenox Dysfunctional Uterine Bleeding 05/09 -pt reportedly started her menses yesterday, brisk vaginal bleeding noted today - records indicate enlarged fibroid uterus, predominately intramural with lesser submucosal component, which is likely contributing to pt's bleeding -given amount of vaginal bleeding, would consider full coagulation panel in AM if bleeding has not slowed, and consider aggressive measures to attempt to control uterine bleeding; uterine artery embolization, tranexamic acid, or consult to [employer] for other potential aggressive measures to control bleeding, as this is currently the notable source of blood loss, with patient saturating up to one pad per hour or more, with volume not exactly measured; could consider cytotec, as side effects are minimal, but as uterus is enlarged and fibroids prevent uterus from clamping down, this may not be successful 05/10 -vaginal bleeding has slowed considerably overnight and today and pt has shown a much more appropriate rise in Hgb after additional transfusion now that bleeding has slowed -will monitor closely Type II Diabetes with Compilations, Insulin Dependent 05/09 -accuchecks AC and HS -sliding scale B 05/10 -continue with sliding scale -glucose 534 - 346 - 418 - 188 - 252 Neuropathy 05/09 -will resume home gabapentin Severe Peripheral Vascular Disease Polysubstance Abuse 05/09 -UDS positive for opiates, amphetamines and methamphetamines Pulmonary Hypertension 05/09 -echo from showed PASP 53 mmHg Patient also had cardiac cath while at on 04/13, which was clean, Thrombocythemia 05/10 -platelets 695 --> 526 --> 495 Hyponatremia 05/10 -Na 134 --> 134 Hypocalcemia 05/10 -7.9 --> 8.0 Hypomagnesemia 05/10 -1.5 --> 1.6 -replace per protocol and recheck in AM 05/09: The patient is critically ill and remains at high risk for further decompensation; a biopsy of her left ventricular mass was recommended, however there is no evidence that this has yet been done. Given her extremely low EF, maintaining her IV hydration in balance with her heart failure may become quite precarious. Dr. Agrawal has been consulted for assistance with critical care management. Should the pt's vaginal bleeding not slow by tomorrow, would consider taking aggressive steps to control bleeding, as this may be one source of pt's anemia. She will likely require at least 3-4 nights in the hospital for treatment and stabilization. 05/10: Pt has improved significantly since yesterday, and her condition is much more stable. Her vaginal bleeding has slowed, and her hemoglobin has stabilized ; she also has not required levophed for pressure support since yesterday afternoon. Will continue to monitor closely; if maintains Hgb, will restart warfarin and bridge with lovenox. If pt not planning to follow with , will consult cardiology here for patient to follow with. Continues to require an inpatient level of care and remains at high risk for decompensation. CODE STATUS: FULL CODE Clinical Quality Measures DVT/VTE Risk/Contraindication: Risk Factor Score Per Nursin RFS Level Per Nursing on Admit: 4+=Very High Copy Copies To 1: [facility]/LAURA GUY DO May 10, 2018 10:10
[2018-05-10] MEDS: warFARin 7.5 MG (COUMADIN) TAB PO SCH (18:09)
[2018-05-10] MEDS: cefTRIAXone 1 GM/NS 50 ML IVPB IV SCH ×2 (20:14)
[2018-05-10] MEDS ORDERED: ATORVASTATIN 80 MG (LIPITOR) TABLET PO SCH (21:00)
[2018-05-10] MEDS ORDERED: FUROSEMIDE 40 MG/4 ML INJ (LASIX) IVP ONE (22:30)
[2018-05-11] VITALS (13 sets, daily range): BP systolic 82–123; BP diastolic 49–67
[2018-05-11] MEDS ORDERED: FUROSEMIDE 40 MG/4 ML INJ (LASIX) ONE (00:46)
[2018-05-11] MEDS: HYDROcodone/APAP 7.5 MG/325 MG (LORTAB, LORCET PLUS) TABLET PO PRN ×2 (00:48→06:55)
[2018-05-11] MEDS: NS IV 1000 ML 1,000 ML IV SCH ×2 (00:50→05:26)
[2018-05-11] MEDS: VANCOMYCIN 1 GM/NS 250 ML IVPB IV SCH ×2 (02:35)
[2018-05-11] MEDS: NOREPINEPHRINE 4 MG in NS (IVPB) 250 ML IV SCH (02:40)
[2018-05-11 04:05] LABS: BASOPHILS # (AUTO) 0.1 10^3/uL (0.0-0.1); BASOPHILS % (AUTO) 1 % (0-10); EOSINOPHILS # (AUTO) 0.5 10^3/uL (0.0-0.3); EOSINOPHILS % (AUTO) 6 % (0-10); HEMATOCRIT 25 % (35-52); HEMOGLOBIN 7.8 G/DL (11.5-16.0); LYMPHOCYTES # (AUTO) 1.8 X 10^3 (1.0-4.0); LYMPHOCYTES % (AUTO) 20 % (12-44); MEAN CORPUSCULAR HEMOGLOBIN 25 PG (25-34); MEAN CORPUSCULAR HGB CONC 31 G/DL (32-36); MEAN CORPUSCULAR VOLUME 81 FL (80-99); MEAN PLATELET VOLUME 9.4 FL (7.4-10.4); MONOCYTES # (AUTO) 0.7 X 10^3 (0.0-1.0); MONOCYTES % (AUTO) 8 % (0-12); NEUTROPHILS % (AUTO) 66 % (42-75); PLATELET COUNT 472 10^3/uL (130-400); RED BLOOD COUNT 3.13 10^6/uL (4.35-5.85); RED CELL DISTRIBUTION WIDTH 22.6 % (10.0-14.5); WHITE BLOOD COUNT 9.2 10^3/uL (4.3-11.0)
[2018-05-11 04:14] LABS: INR 1.2 (0.8-1.4); PROTHROMBIN TIME PATIENT 15.3 SEC (12.2-14.7)
[2018-05-11 04:21] LABS: BUN/CREATININE RATIO 23; CARBON DIOXIDE 20 MMOL/L (21-32); CHLORIDE 106 MMOL/L (98-107); CREATININE SERUM 0.64 MG/DL (0.60-1.30); GFR ESTIMATED > 60; GLUCOSE 200 MG/DL (70-105); MAGNESIUM 1.4 MG/DL (1.8-2.4); PHOSPHORUS 4.1 MG/DL (2.3-4.7); POTASSIUM 4.5 MMOL/L (3.6-5.0); SODIUM 135 MMOL/L (135-145)
[2018-05-11 04:39] LABS: CALCIUM 8.3 MG/DL (8.5-10.1)
[2018-05-11] MEDS: POTASSIUM CL 10MEQ/50ML IVPB 50 ML IV SCH (04:54)
[2018-05-11] MEDS: KCL 20 MEQ TAB (K-DUR) PO SCH (04:55)
[2018-05-11] MEDS: MAGNESIUM 1 GM/100 ML IVPB 100 ML IV SCH ×3 (04:55→06:54)
--- NOTE | 2018-05-11 05:45 | Pulmonary Progress Note ---
Subjective Time Seen by Provider: 05:58 Subjective/Events-last exam Pt is wanting to go home. Hb has been stable since yesterday. Focused Exam Lactate Level 05/08/18 18:10: Lactic Acid Level 2.05*H 05/08/18 19:49: Lactic Acid Level 2.69*H 05/09/18 06:10: Lactic Acid Level 0.95 Exam Exam Vital Signs Date Time Temp Pulse Resp B/P (MAP) Pulse Ox O2 Delivery O2 Flow Rate FiO2 05/11/18 05:00 82 8 121/61 (81) 05/11/18 04:00 98 Room Air 05/11/18 04:00 74 21 102/58 (73) 05/11/18 03:00 79 30 89/54 (66) 99 Room Air 05/11/18 02:00 87 45 98/51 (67) 99 Room Air 05/11/18 01:00 76 26 99/51 (67) 99 Room Air 05/11/18 01:00 80 05/11/18 00:00 97.6 05/11/18 00:00 98 Room Air 05/11/18 00:00 92 28 119/62 (81) 99 Room Air 05/10/18 23:00 80 28 107/55 (72) 99 Room Air 05/10/18 22:00 85 11 112/53 (72) 100 Room Air 05/10/18 21:00 81 10 115/51 (72) 98 Room Air 05/10/18 20:00 97.1 05/10/18 20:00 98 Room Air 05/10/18 20:00 81 10 104/65 (78) 95 Room Air 05/10/18 19:03 96 Room Air 05/10/18 19:00 72 12 97/61 (73) 100 Room Air 05/10/18 19:00 78 05/10/18 18:00 71 13 111/52 (71) 100 Room Air 05/10/18 17:00 78 22 103/43 (63) 97 Room Air 05/10/18 16:00 97.1 05/10/18 16:00 99 Room Air 05/10/18 16:00 82 13 111/67 (82) 100 Room Air 05/10/18 15:00 76 18 105/63 (77) 100 Room Air 05/10/18 14:00 83 12 100/58 (72) 98 Room Air 05/10/18 13:00 80 14 109/63 (78) 96 Room Air 05/10/18 13:00 80 05/10/18 12:00 99 Room Air 05/10/18 12:00 98.4 78 14 100/52 (68) 99 Room Air 05/10/18 11:00 92 12 116/64 (81) 97 Room Air 05/10/18 10:00 87 10 113/55 (74) 97 Room Air 05/10/18 09:00 76 18 112/61 (78) 98 Room Air 05/10/18 08:00 98.7 81 20 97/60 (72) 99 Room Air 05/10/18 08:00 99 Room Air 05/10/18 07:00 75 05/10/18 07:00 75 23 126/70 (88) 100 Room Air 05/10/18 06:55 96 Room Air 05/10/18 06:00 78 13 131/82 (98) 99 Room Air I & O 05/11/18 06:59 Intake Total 2350 ml Output Total 7025 ml Balance -4675 ml General Appearance: No Apparent Distress, Anxious, Chronically ill, Thin HEENT: PERRL/EOMI, Pale Conjunctivae (L), Pale Conjunctivae (R) Neck: Non Tender, Supple Respiratory: Lungs Clear, Normal Breath Sounds Cardiovascular: Regular Rate, Rhythm, No Murmur Capillary Refill: Less Than 3 Seconds Gastrointestinal: normal bowel sounds, non tender, soft, no pulsatile mass Extremity: Normal Capillary Refill, Slow Capillary Refill, Other (left BKA) Neurologic/Psychiatric: Alert, Oriented x3, No Motor/Sensory Deficits Skin: Normal Color, Warm/Dry Lymphatic: No Adenopathy Results Lab Laboratory Tests 05/10/18 03:25 05/11/18 04:00 Assessment/Plan Assessment/Plan Severe sepsis - improving - D/C Vanco, continue Rocephin -barnes cultures negative thus far Severe anemia secondary to vaginal bleeding -S/p 4 units of PRBC Dysfunctional Uterine Bleeding enlarged fibroid uterus -Pt has had large clots -She has been evaluated for hysterectomy however high risk secondary to cardiac ventricular mass and cardiomyopathy metabolic lactic acidosis - improving Cardiomyopathy with EF of 15% -Hep lock IVF and continue to monitor Hypomag -replace hx of left ventricular mass -PT has been evaluated at recently severe PVD hx of BKA Hx of methamphetamine use -UDS Methamphetamine tobacco dependance -education Overall prognosis is poor. Consider hospice care patient is wanting to go home. 233 OPHELIA GARCIA DO May 11, 2018 05:45
[2018-05-11] MEDS: inSUlin ASPART (NovoLOG) 1 UNIT/0.01 ML (CHARGE PER UNIT) SC SCH ×2 (06:02→11:11)
[2018-05-11] MEDS: CARVEDILOL 3.125 MG (COREG) TABLET PO SCH (08:04)
[2018-05-11] MEDS: SPIRONOLACTONE 25 MG (ALDACTONE) TAB PO SCH (08:04)
[2018-05-11] MEDS: RT-ALBUTEROL/IPRATROPIUM 3 ML (DUONEB) VIAL INH SCH (08:06)
--- NOTE | 2018-05-11 08:55 | Diagnostic Imaging Report ---
INDICATION: Severe sepsis. TECHNIQUE: Single view chest 3:32 AM. CORRELATION STUDY: 05/10/2018 FINDINGS: Right-sided central line unchanged. Heart size, mediastinum and vascular overall stable. Minimal residual atelectasis at the lung bases. IMPRESSION: 1. Generally stable chest without adverse interval change. Dictated by: Dictated on workstation # [id number]
--- NOTE | 2018-05-11 10:08 | Discharge Summary ---
Diagnosis/Chief Complaint Date of Admission May 08, 2018 at 20:23 Date of Discharge 05/11/18 Admission Diagnosis Admission Diagnosis Profound Hypotension Severe Anemia 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 Severely Decreased LVEF Anticoagulation Therapy Dysfunctional Uterine Bleeding Type II Diabetes with Compilations, Insulin Dependent Neuropathy Severe Peripheral Vascular Disease Polysubstance Abuse Pulmonary Hypertension Discharge Diagnosis Pt insistent on discharge today. Agreeable to close follow up in clinic, reports she tried to make appt with Sharlene Flores last week but she was out of the office. Will have pt follow up with Dr. Cesar and Sharlene Flores; will refer to cardiology for local follow up. Will send rx for insulin and voucher to [facility], meter, test strips and lancets to be dispensed from clinic repository and patient to supervisor picking crew on discharge. Will hold Provera and hypertensive meds, continue other meds, including carvedilol. Will have pt meet with clinic staff to re-apply for medicaid, she reports she has now been approved for disability. States she has not been talked with about a LifeVest due to her low EF when at , will have her discuss this with cardiology at follow up, as she may not be a candidate due to left ventricular thrombus vs mass. WBC count remains un-elevated, CRP also WNL and pt has not displayed signs of infection, so no need for abx at discharge. Hgb remains stable since transfusion since off provera. Strict return precautions given and counseled on overall poor prognosis unless she becomes significantly more compliant with medication and follow up, and even then, outlook is fair at best. 05/09: The patient is critically ill and remains at high risk for further decompensation; a biopsy of her left ventricular mass was recommended, however there is no evidence that this has yet been done. Given her extremely low EF, maintaining her IV hydration in balance with her heart failure may become quite precarious. Dr. Agrawal has been consulted for assistance with critical care management. Should the pt's vaginal bleeding not slow by tomorrow, would consider taking aggressive steps to control bleeding, as this may be one source of pt's anemia. She will likely require at least 3-4 nights in the hospital for treatment and stabilization. 05/10: Pt has improved significantly since yesterday, and her condition is much more stable. Her vaginal bleeding has slowed, and her hemoglobin has stabilized ; she also has not required levophed for pressure support since yesterday afternoon. Will continue to monitor closely; if maintains Hgb, will restart warfarin and bridge with lovenox. If pt not planning to follow with , will consult cardiology here for patient to follow with. Continues to require an inpatient level of care and remains at high risk for decompensation. Assessment & Plan Profound Hypotension 05/09 -pt started on IV fluids at bolus rate and levophed titrated as needed for pressure support 05/10 -off pressors since yesterday evening and maintaining pressure -HTN medications on hold other than carvedilol with hold parameters -Day 2 Vanc and Zosyn for possible infection as cause of hypotension, with ventricular thrombus being possible source of infection 05/11 -maintaining blood pressure with IV fluid rate decreased and no pressors for ~ 36 hours -will have pt hold on lisinopril on discharge until follow up with Dr. Cesar and given strict return precautions Severe Anemia 05/09 -5.5 --> 6.0 -s/p 2 units transfused overnight, receiving two additional units today per Dr. Agrawal -pt with brisk uterine bleeding, which is likely not helping her anemia 05/10 -5.5 --> 6.0 --> 7.6 -pt s/p 4 units PRBC -vaginal bleeding has slowed considerably, will continue to monitor closely 05/11 -5.5 --> 6.0 --> 7.6 --> 7.8 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 05/09 -pt seen at ; pt noted to have left ventricular mass on CT, myxoma vs thrombus vs metastatic disease; same CT scan also identified a small right lower lung nodule -echo done at reports dilated left ventricle with EF of 15%; massive thrombus filling the majority of the left ventricle apex, with base attached to the wall but large portion of the thrombus highly mobile -pt started on coumadin therapy prior to discharge from , INR 1.8 this AM 05/10 -warfarin currently on hold due to brisk vaginal bleeding, which has slowed considerably -will restart tomorrow with lovenox bridge until therapeutic 05/11 -pt receiving warfarin, discharge with dose unchanged; subtherapeutic, but does not want lovenox Severely Decreased LVEF 05/09 -echo at shows LVEF 15% in March 2018 -thrombus filling left ventricle as outlined above -global hypokinesis of left ventricle with akinetic mid to distal left ventricle segments -mild right ventricular dilation with mild to moderate right ventricular dysfunction -CVP >15 with increased pulmonary artery pressure; PASP = 53 mmHG -mild to moderate tricuspid regurgitation 05/10 -pt refusing to be very communicative this morning; did not keep follow up appt with [facility] 05/02 as scheduled -needs life vest due to low EF, but uninsured and compliance is also an issue -if pt not going to follow with [facility], will consult cardiology and have her establish with them here 05/11 -pt states transportation is a big issue for her following with [facility] regularly -will have pt establish with cardiology here on an outpatient basis although discussed with patient that her issues are very complex and while our cardiologists are excellent, she has a fairly unique situation that will likely still require consultation and perhaps co-management by [facility], although will defer that determination to cardiology and their expert opinion -patient does report she has now qualified for disability; pt encouraged to apply for medicaid again now that she is on disability when she goes to her follow up next week, as then Medicaid may be able to help with transportation to if it is required for specialty care that is not available here Anticoagulation Therapy 05/09 -coumadin -INR 1.7 --> 1.8 05/10 -INR 1.7 --> 1.8 --> 1.3 -warfarin on hold currently due to brisk vaginal bleeding yesterday, will restart tomorrow if Hgb remains stable and bridge with lovenox 05/11 -INR 1.7 --> 1.8 --> 1.3 --> 1.2 -warfarin restarted -discussed with pt that she is not at a therapeutic level, she declines lovenox at discharge Dysfunctional Uterine Bleeding 05/09 -pt reportedly started her menses yesterday, brisk vaginal bleeding noted today -[facility] records indicate enlarged fibroid uterus, predominately intramural with lesser submucosal component, which is likely contributing to pt's bleeding -given amount of vaginal bleeding, would consider full coagulation panel in AM if bleeding has not slowed, and consider aggressive measures to attempt to control uterine bleeding; uterine artery embolization, tranexamic acid, or consult to [employer] for other potential aggressive measures to control bleeding, as this is currently the notable source of blood loss, with patient saturating up to one pad per hour or more, with volume not exactly measured; could consider cytotec, as side effects are minimal, but as uterus is enlarged and fibroids prevent uterus from clamping down, this may not be successful 05/10 -vaginal bleeding has slowed considerably overnight and today and pt has shown a much more appropriate rise in Hgb after additional transfusion now that bleeding has slowed -will monitor closely 05/11 -only trace amount of vaginal bleeding; would consider large volume of vaginal bleeding to be a significant source of pt's profound anemia on admission -pt not to continue Provera for now until she follows up in clinic Type II Diabetes with Compilations, Insulin Dependent 05/09 -accuchecks AC and HS -sliding scale B 05/10 -continue with sliding scale -glucose 534 - 346 - 418 - 188 - 252 05/11 -pt doing reasonably well with sliding scale -is willing to be discharged on insulin, states she did not get any after discharge from in March because it was going to be $2000, and she attempted to call Sharlene Flores, clinical informatics educator at [facility], but she was out of the clinic at that time -will have referral placed at clinic for Sharlene to contact patient -arrangements made for patient to supervisor picking crew meter, test strips and lancets from clinic repository at discharge; Novolog 15 units with meals and Levemir 30 units at HS sent to [facility] and requested to be vouchered until patient can follow up with Dr. Cesar and have doses adjusted and either get re-enrolled in [facility], supervisor picking crew samples, or have other arrangements made -stressed to patient that it is imperative that she try to keep her diabetes under control, and if she runs out of insulin that she needs to contact the clinic, as we will look into a multitude of resources to get patient the medication that she needs; patient states she is very willing to do her very best to try and control her sugars. Neuropathy 05/09 -will resume home gabapentin Severe Peripheral Vascular Disease Polysubstance Abuse 05/09 -UDS positive for opiates, amphetamines and methamphetamines Pulmonary Hypertension 05/09 -echo from showed PASP 53 mmHg Patient also had cardiac cath while at on 04/13, which was clean, Thrombocythemia 05/10 -platelets 695 --> 526 --> 495 05/10 -platelets 695 --> 526 --> 495 --> 472 Hyponatremia 05/10 -Na 134 --> 134 Hypocalcemia 05/10 -7.9 --> 8.0 05/11 -7.9 --> 8.0 --> 8.3 Hypomagnesemia 05/10 -1.5 --> 1.6 -replace per protocol and recheck in AM 05/11 -1.5 --> 1.6 --> 1.4 -replace per protocol -antibiotics stopped, patient has been afebrile, with normal white count and normal CRP. Was started on broad spectrum when arrived hypotensive, concern for infectious process, possibly involving thrombus/mass in left ventricle, but this has not proven to be the case over the course of her stay. Will not discharge on abx. CODE STATUS: FULL CODE Chief Complaint/HPI Chief Complaint/HPI Patient presented to ED last night after becoming dizzy and falling from standing. Patient was admitted at [facility] from 04/10 - 04/18 last month, and it was discovered that she had a large mass in her left ventricle - she was supposed to have a follow up appt at on 05/02, but missed that appointment. The patient his the right front of her head when falling; she is on some type of blood thinner, but she is a fairly poor historian and could not remember exactly what she was taking. Initial pressure was 76/37 on arrival, with initial Hgb 5.5. Patient does have a somewhat long history of severe anemia requiring blood transfusions, although per chart review a blood disorder has never been identified. She had a CT head that was negative for acute process; a CXR that showed right IJ with tip over the SVC and likely chronic changes in the lung parenchyma. She was also noted to have a UDS that is positive for opiates, amphetamines and methamphetamines. She was admitted to the ICU for blood products, pressure support, and started on IV abx for suspected sepsis. Discharge Summary-Simple/Stand Consultations Dr. Agrawal Discharge Physical Examination Allergies: Coded Allergies: codeine (Unverified Allergy, Mild, 04/21/09) Penicillins (Verified Allergy, Unknown, 12/08/07) Vitals & I&Os Vital Sign - Last 12Hours Date Time Temp Pulse Resp B/P (MAP) Pulse Ox O2 Delivery O2 Flow Rate FiO2 05/11/18 08:08 76 98 05/11/18 08:06 Room Air 05/11/18 08:00 97.0 11 92/57 (69) Intake and Output 05/11/18 00:00 Intake Total 1810 ml Output Total 3525 ml Balance -1715 ml General Appearance: Alert, Oriented X3, Cooperative, No Acute Distress HEENT: Atraumatic, EOMI, Mucous Memb Moist/[place] Respiratory: Clear to Auscultation, Normal Air Movement Cardiovascular: Regular Rate, Normal S1, Normal S2 Abdominal: Normal Bowel Sounds, Soft, No Tenderness Extremities: No Clubbing, No Cyanosis, No Edema, Other (left BKA) Skin: No Rashes, No Significant Lesion Neuro: Normal Speech, Normal Tone, Sensation Intact, Cranial Nerves 3-12 NL Psych/Mental Status: Mental Status NL, Mood NL Hospital Course See final discharge diagnosis. Radiology Reviewed CT Head - negative for acute process CXR - no acute infiltrate Discussion & Recommendations Pt insistent on discharge today. Agreeable to close follow up in clinic, reports she tried to make appt with Sharlene Flores last week but she was out of the office. Will have pt follow up with Dr. Cesar and Sharlene Flores; will refer to cardiology for local follow up. 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 Will hold Provera and hypertensive meds, continue other meds, including carvedilol. Will have pt meet with clinic staff to re-apply for medicaid, she reports she has now been approved for disability. States she has not been talked with about a LifeVest due to her low EF when at , will have her discuss this with cardiology at follow up, as she may not be a candidate due to left ventricular thrombus vs mass. WBC count remains un-elevated, CRP also WNL and pt has not displayed signs of infection, so no need for abx at discharge. Hgb remains stable since transfusion since off provera. Strict return precautions given and counseled on overall poor prognosis unless she becomes significantly more compliant with medication and follow up, and even then, outlook is fair at best. Discharge Condition at discharge stable Instructions to patient/family Please see electronic discharge instructions given to patient. Discharge Medications Reviewed and agree with Discharge Medication list on patient's Discharge Instruction sheet Clinical Quality Measures DVT/VTE Risk/Contraindication: Risk Factor Score Per Nursin RFS Level Per Nursing on Admit: 4+=Very High Copy Copies To 1: YANI CESAR MD, MARGARET E DO May 11, 2018 10:08
[2018-05-11] MEDS ORDERED: INSU100I14 SQ (10:22)
[2018-05-11] MEDS ORDERED: [UNRECOGNIZED DRUG - CODE] MC (10:22)
[2018-05-11] MEDS ORDERED: INSU100I10 SQ (10:22)
[2018-05-11] MEDS ORDERED: [UNRECOGNIZED DRUG - CODE] MC (10:22)
[2018-05-11] MEDS ORDERED: [UNRECOGNIZED DRUG - CODE] MC (10:22)
--- NOTE | 2018-05-11 10:25 | Discharge Instructions ---
Discharge [facility] Discharge Medications New, Converted or Re-Newed RX: Transmitted to Pharmacy New Medications: Blood Sugar Diagnostic (Accu-Chek Smartview) 1 Each Strip 1 EACH ACHS for 30 Days, #200 STRIP Blood-Glucose Meter (Accu-Chek Sheyla Smartview) 1 Each Each EACH MC PRN for glucose management, #1 0 Refills check blood sugar before meals and at bedtime, and any time you feel symptoms of low blood sugar Insulin Aspart (Novolog Flexpen) 300 Units/3 Ml Solution 15 UNITS SQ AC for 10 Days, #2 EA Insulin Glargine,Hum.rec.anlog (Lantus Solostar) 100 Unit/1 Ml Insuln.pen 30 UNIT SQ HS for 10 Days, #1 EA Lancets (Accu-Chek Softclix) 1 Each Each EACH ACHS for glucose control, #200 check sugars before meals and at bedtime Continued Medications: Atorvastatin Calcium (Lipitor) 80 Mg Tablet 80 MG PO DAILY, TAB Carvedilol (Coreg) 3.125 Mg Tablet 3.125 MG PO BID, TAB Furosemide (Furosemide) 40 Mg Tablet 40 MG PO DAILY, TAB Hydrocodone/Acetaminophen (Hydrocodone-Acetamin 7.5-325) 1 Each Tablet 1 TAB PO TID PRN for PAIN-MODERATE, TAB Spironolactone (Spironolactone) 25 Mg Tablet 25 MG PO BID, TAB Warfarin Sodium (Warfarin Sodium) 7.5 Mg Tablet 7.5 MG PO HS, TAB Discontinued Medications: Lisinopril (Lisinopril) 2.5 Mg Tablet 2.5 MG PO DAILY, TAB Medroxyprogesterone Acetate (Medroxyprogesterone Acetate) 10 Mg Tablet 10 MG PO BID, TAB Patient Instructions Patient Instructions -keep follow up appts -medications as directed -follow diabetic diet -avoid tobacco or second hand smoke exposure Goal/Follow Up Appt: Dr. Cesar 05/18 at 1:20 pm Sharlene Flores, Smoking Pipe Driller And Threader - will call with appt Cardiology in 1-2 weeks to establish with local provider Return to The Hospital For: chest pain or pressure, shortness of breath, nausea or vomiting that lasts longer than 12 hours and makes you unable to keep down medications, uncontrolled sugars, fainting or dizziness, fever >101 that does not improve with tylenol, if directed by javascript front end developer provider, or with any other emergent complaints or concerns Activity & Diet Discharge Diet: ADA Diet, Cardiac Diet Activity as Tolerated: Yes Copy Copies To 1: YANI CESAR MD, MARGARET E DO May 11, 2018 10:25
--- NOTE | 2018-05-12 14:31 | Physician Query-Final Dx ---
PAM CARDENAS 05/12/18 1431: Final Diagnosis Give Final Diagnosis Please give Final Diagnosis LAURA ROBERTS DO 05/14/18 1113: Final Diagnosis Give Final Diagnosis Profound Hypotension - RESOLVED Severe Anemia 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 Severely Decreased LVEF Anticoagulation Therapy, Subtherapeutic Dysfunctional Uterine Bleeding Type II Diabetes with Compilations, Insulin Dependent Diabetic Polyneuropathy Severe Peripheral Vascular Disease Polysubstance Abuse Pulmonary Hypertension Thrombocythemia Hyponatremia Hypocalcemia Hypomagnesemia Medical Noncompliance Low Socioeconomic Status PAM CARDENAS May 12, 2018 14:31 LAURA ROBERTS DO May 14, 2018 11:13
== END 2018-05-11 12:15 | disposition home or self-care (01) | DRG 812 ==
LOC: EDUNIT# 17:29 → ER 17:31 → ICU 20:23
PROVIDERS: ADMIT Family Medicine; ATTEND Family Medicine
PROC: 02HV33Z Insertion of Infusion Device into Superior Vena Cava, Percutaneous Approach (ICD-10-PCS; principal; 2018-05-08)
DX: D62 Acute posthemorrhagic anemia (principal); N93.8 Other specified abnormal uterine and vaginal bleeding; I24.0 Acute coronary thrombosis not resulting in myocardial infarction; E87.2 Acidosis; I42.9 Cardiomyopathy, unspecified; E87.1 Hypo-osmolality and hyponatremia; I95.9 Hypotension, unspecified; E83.51 Hypocalcemia; D69.6 Thrombocytopenia, unspecified; D25.1 Intramural leiomyoma of uterus; D25.0 Submucous leiomyoma of uterus; I27.20 Pulmonary hypertension, unspecified; E11.43 Type 2 diabetes mellitus with diabetic autonomic (poly)neuropathy; E11.51 Type 2 diabetes mellitus with diabetic peripheral angiopathy without gangrene; J44.9 Chronic obstructive pulmonary disease, unspecified; F15.10 Other stimulant abuse, uncomplicated; F11.10 Opioid abuse, uncomplicated; F32.9 Major depressive disorder, single episode, unspecified; I07.1 Rheumatic tricuspid insufficiency; F41.9 Anxiety disorder, unspecified; E78.5 Hyperlipidemia, unspecified; E83.42 Hypomagnesemia; F17.210 Nicotine dependence, cigarettes, uncomplicated; S09.90XA Unspecified injury of head, initial encounter; Z79.4 Long term (current) use of insulin; Z91.19 Patient's noncompliance with other medical treatment and regimen; Z89.512 Acquired absence of left leg below knee; Z95.828 Presence of other vascular implants and grafts; Z79.01 Long term (current) use of anticoagulants; W01.10XA Fall on same level from slipping, tripping and stumbling with subsequent striking against unspecified object, initial encounter
CPT/HCPCS: 36415; 36556; 51702; 70450; 71045; 80048; 80053; 80202; 80306; 81000; 82962; 83605; 83735; 84100; 85025; 85610; 85730; 86141; 86850; 86900; 86901; 86922; 87040; 87081; 93005; 94640; 96361; 96365

== ENCOUNTER 2018-08-05 20:19 | Inpatient (IN) | payer SELFPAY ==
[~2018-08-05] VITALS: Ht 180.3 cm; Wt 77.2 kg
[~2018-08-05 20:19] MED LIST changes: +ATOR80TA64 PO; +CARV3.12 PO; +FURO40TA4 PO; +HYDR-3816 PO; +INSU100I10 SQ; +INSU100I14 SQ; +LISI2.5T PO; +MEDR10TA9 PO; +METF-397 PO; -METF500T5 PO; +SPIR25TA5 PO; +WARF7.5T49 PO; +[UNRECOGNIZED DRUG - CODE] MC; +[UNRECOGNIZED DRUG - CODE] MC; +[UNRECOGNIZED DRUG - CODE] MC
--- NOTE | 2018-08-05 21:08 | ED Lower Extremity ---
General Chief Complaint: Lower Extremity Stated Complaint: RIGHT LEG PAIN Nursing Triage Note: RIGHT LEG PAIN Nursing Sepsis Screen: No Definite Risk Source: patient Exam Limitations: no limitations History of Present Illness Date Seen by Provider: Aug 05, 2018 Time Seen by Provider: 21:06 Initial Comments Patient presents to the emergency room with complaints of right leg pain and swelling. She reports that the pain and swelling started last night. She has pain that starts from her mid calf and goes up to her thigh. She has a history of blood clots to the left leg. 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 Onset: yesterday Pain/Injury Location: right leg, right knee, right thigh Method of Injury: unknown Allergies and Home Medications Allergies Coded Allergies: Penicillins (Verified Allergy, Unknown, 12/08/07) Home Medications Aspirin 325 Mg Tablet, 325 MG PO DAILY, (Reported) Blood Sugar Diagnostic 1 Each Strip, 1 EACH MC ACHS Prescribed by: LAURA ROBERTS on 05/11/18 1022 Carvedilol 3.125 Mg Tablet, 3.125 MG PO DAILY, (Reported) Furosemide 40 Mg Tablet, 40 MG PO DAILY, (Reported) Hydrocodone/Acetaminophen 1 Each Tablet, 1 TAB PO TID PRN for PAIN-MODERATE, ( Reported) Insulin Detemir 100 Unit/1 Ml Insuln.pen, 45 UNIT SQ HS, (Reported) Insulin Lispro 100 Unit/1 Ml Insuln.pen, 12 UNIT SQ AC, (Reported) Lisinopril 2.5 Mg Tablet, 2.5 MG PO DAILY, (Reported) Lovastatin 40 Mg Tablet, 80 MG PO DAILY, (Reported) Metformin HCl 500 Mg Tablet, 500 MG PO BID, (Reported) Spironolactone 25 Mg Tablet, 25 MG PO BID, (Reported) Warfarin Sodium 7.5 Mg Tablet, 15 MG PO Tuesday and , (Reported) Warfarin Sodium 7.5 Mg Tablet, 7.5 MG PO ,Tue,Fr,Sat,Sun, (Reported) Patient Home Medication List Home Medication List Reviewed: Yes Review of Systems Constitutional: see HPI; No chills, No fever Musculoskeletal: see HPI, other (right leg pain and swelling) All Other Systems Reviewed Negative Unless Noted: Yes Past Nwrpagg-Zxykcx-Miefwt Hx Past Med/Social Hx: Reviewed Nursing Past Med/Soc Hx Patient Social History Alcohol Use: Denies Use Recreational Drug Use: No (SMOKES 1PPD) Type Used: Cigarettes Former Smoker, Quit: Aug 07, 2016 2nd Hand Smoke Exposure: Yes Recent Foreign Travel: No Contact w/Someone Who Travel: No Recent Infectious Disease Expo: No Recent Hopitalizations: Yes ([facility] BLOOD CLOT IN HEART) Physical Abuse: No Sexual Abuse: No Immunizations Up To Date Tetanus Booster (TDap): Less than 5yrs PED Vaccines UTD: No Date of Pneumonia Vaccine: Jun 12, 2008 Date of Influenza Vaccine: Sep 17, 2014 Seasonal Allergies Seasonal Allergies: No Past Medical History Surgeries: Yes Section, Gallbladder, Vascular Surgery Respiratory: Yes COPD 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, Peripheral Vascular Neurological: Yes Neuropathy 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 Disorders: No 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 Disorders: Denies 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 Sexually Transmitted Disease: No HIV/AIDS: No Genitourinary: Yes Bladder Infection, Kidney Stones Gastrointestinal: No Musculoskeletal: Yes Amputee, Arthritis Endocrine: Yes (NON-COMPLIANCE) Diabetes, Insulin dep HEENT: No Cancer: No Psychosocial: Yes Depression Integumentary: No Blood Disorders: Yes (iron deficiency anemia) Adverse Reaction/Blood Tranf: No Family Medical History Reviewed Nursing Family Hx Diabetes mellitus 19 FATHER 19 MOTHER G8 BROTHER G8 SISTER Myocardial infarction 19 MOTHER Heart Disease, Diabetes Physical Exam Vital Signs Vital Signs - First Documented 08/05/18 20:56 Temp 98.3 Pulse 116 Resp 18 B/P (MAP) 106/56 (73) Pulse Ox 99 Capillary Refill : Less Than 3 Seconds Height, Weight, BMI Height: 5'11.00" Weight: 170lbs. 5.0oz. 77.296273uz; 21.1 BMI Method:Stated General Appearance: WD/WN, no apparent distress Neck: non-tender, full range of motion, supple, normal inspection Cardiovascular: regular rate, rhythm, no edema, no gallop, no JVD, no murmur Respiratory: chest non-tender, lungs clear, normal breath sounds, no respiratory distress, no accessory muscle use Gastrointestinal: normal bowel sounds, non tender, soft, no organomegaly, no pulsatile mass Legs: right leg normal inspection, right leg normal range of motion, right leg soft tissue tenderness (soft tissue tenderness to the right calf.), right leg swelling (pedal edema and ankle swelling.) Neurologic/Psychiatric: alert, normal mood/affect, oriented x 3 Skin: normal color, warm/dry Progress/Results/Core Measures Results/Orders Lab Results Laboratory Tests Test 08/05/18 21:13 08/05/18 23:30 08/05/18 23:49 Range/Units White Blood Count 12.3 H 4.3-11.0 10^3/uL Red Blood Count 3.61 L 4.35-5.85 10^6/uL Hemoglobin 6.0 *L 11.5-16.0 G/DL Hematocrit 23 L 35-52 % Mean Corpuscular Volume 64 L 80-99 FL Mean Corpuscular Hemoglobin 17 L 25-34 PG Mean Corpuscular Hemoglobin Concent 26 L 32-36 G/DL Red Cell Distribution Width 24.5 H 10.0-14.5 % Platelet Count 881 H 130-400 10^3/uL Mean Platelet Volume 9.4 7.4-10.4 FL Neutrophils (%) (Auto) 80 H 42-75 % Lymphocytes (%) (Auto) 12 12-44 % Monocytes (%) (Auto) 7 0-12 % Eosinophils (%) (Auto) 0 0-10 % Basophils (%) (Auto) 1 0-10 % Neutrophils # (Auto) 9.8 H 1.8-7.8 X 10^3 Lymphocytes # (Auto) 1.4 1.0-4.0 X 10^3 Monocytes # (Auto) 0.9 0.0-1.0 X 10^3 Eosinophils # (Auto) 0.0 0.0-0.3 10^3/uL Basophils # (Auto) 0.1 0.0-0.1 10^3/uL Prothrombin Time 14.6 12.2-14.7 SEC INR Comment 1.1 0.8-1.4 Activated Partial Thromboplast Time 24 24-35 SEC D-Dimer 0.84 H 0.00-0.49 UG/ML Sodium Level 123 *L 135-145 MMOL/L Potassium Level 4.7 3.6-5.0 MMOL/L Chloride Level 87 L 98-107 MMOL/L Carbon Dioxide Level 22 21-32 MMOL/L Anion Gap 14 5-14 MMOL/L Blood Urea Nitrogen 16 7-18 MG/DL Creatinine 1.38 H 0.60-1.30 MG/DL Estimat Glomerular Filtration Rate 40 BUN/Creatinine Ratio 12 Glucose Level 875 *H 70-105 MG/DL Calcium Level 9.8 8.5-10.1 MG/DL Corrected Calcium 9.6 8.5-10.1 MG/DL Magnesium Level 2.0 1.8-2.4 MG/DL Total Bilirubin 0.4 0.1-1.0 MG/DL Aspartate Amino Transf (AST/SGOT) 14 5-34 U/L Alanine Aminotransferase (ALT/SGPT) 12 0-55 U/L Alkaline Phosphatase 105 40-136 U/L Total Protein 7.8 6.4-8.2 GM/DL Albumin 4.2 3.2-4.5 GM/DL Glucometer > 600 *H 70-110 MG/DL Urine Color YELLOW Urine Clarity SLIGHTLY CLOUDY Urine pH 6.5 5-9 Urine Specific [place] 1.010 L 1.016-1.022 Urine Protein 1+ H NEGATIVE Urine Glucose (UA) 4+ H NEGATIVE Urine Ketones 1+ H NEGATIVE Urine Nitrite POSITIVE H NEGATIVE Urine Bilirubin NEGATIVE NEGATIVE Urine Urobilinogen NORMAL NORMAL MG/DL Urine Leukocyte Esterase 2+ H NEGATIVE Urine RBC (Auto) 5+ H NEGATIVE Urine RBC 10-25 H /HPF Urine WBC 10-25 H /HPF Urine Squamous Epithelial Cells 25-50 H /HPF Urine Crystals NONE /LPF Urine Bacteria MODERATE H /HPF Urine Casts NONE /LPF Urine Mucus MODERATE H /LPF Urine Culture Indicated YES My Orders Orders - FELIPA CAMPBELL Comprehensive Metabolic Panel (08/05/18 21:05) Cbc With Automated Diff (08/05/18 21:05) Protime With Inr (08/05/18 21:05) Partial Thromboplastin Time (08/05/18 21:05) Fibrin Degradation Products (08/05/18 21:05) Us Venous Lower Ext Rt (08/05/18 21:05) Saline Lock/Iv-Start (08/05/18 21:05) Monitor-Rhythm Ecg Trace Only (08/05/18 21:05) Us Right Low Ext [id number] (08/05/18 ) Ns Iv 1000 Ml (Sodium Chloride 0.9%) (08/05/18 22:45) Insulin (Regular) Human (Humulin R (Per (08/05/18 22:45) Urinalysis (08/05/18 23:36) Arterial Blood Gas (08/06/18 00:03) Magnesium (08/06/18 00:06) Insulin (Regular) Human (Humulin R (Per (08/06/18 00:15) Urine Culture (08/05/18 23:49) Medications Given in ED Vital Signs/I&O 08/05/18 20:56 Temp 98.3 Pulse 116 Resp 18 B/P (MAP) 106/56 (73) Pulse Ox 99 Blood Pressure Mean: 73 Progress Progress Note : Time: 22:00 Progress Note Patient was informed of her elevated blood glucose. She reports that she has not been able to get in to see her doctor and has not had any of her insulin for one week. IV insulin will be given to try to bring her blood sugar down. More laboratory work will be ordered. 0030: I spoke to Dr. Ortiz at this time I informed her of her laboratory findings, ultrasound findings. She agrees with plans for admission to the ICU with DKA order set. She was informed of the patient's elevated d-dimer and recommended a VQ scan in the morning. The patient was informed of plans for admission and agrees with plan of care. Diagnostic Imaging Diagonstic Imaging: Ultrasound Plain Films/CT/US/NM/MRI: leg Comments NAME: ANNI OLIVARES Cj MED REC#: [id number] PT STATUS: ADM IN : 1970 PHYSICIAN: FELIPA CAMPBELL ADMIT DATE: 08/06/18/ICU Signed Date of Exam: 08/05/18 US RIGHT LOW EXT [id number] INDICATION: Diabetic foot. History of left leg amputation. FINDINGS: Color Doppler imaging right lower extremity shows rather dense diffuse atherosclerotic plaquing throughout the right femoral artery. There is hemodynamic stenosis at the level of the adductor canal. The right popliteal artery shows marked dampening of flow with monophasic patterns and peak velocity of 20 cm/s. There is minimal antegrade flow noted at the ankle in the posterior tibial artery with no flow demonstrated in the dorsalis pedis artery. IMPRESSION: 1. Severe diffuse atherosclerotic disease right lower extremity arterial system with high-grade stenosis popliteal artery and severe trifurcation disease. Dictated by: Dictated on workstation # [id number] Dict: 08/06/1834 Trans: 08/06/18822 Interpreted by: GRACIA GARDNER MD Electronically signed by: GRACIA GARDNER MD 08/06/18822 NAME: ANNI OLIVARES [facility] REC#: [id number] PT STATUS: ADM IN : 1970 PHYSICIAN: FELIPA CAMPBELL ADMIT DATE: 08/06/18/ICU Signed Date of Exam: 08/05/18 US VENOUS LOWER EXT RT PROCEDURE: US right lower extremity venous. TECHNIQUE: Multiple real-time grayscale images were obtained over the right lower extremity in various projections. Additional duplex Doppler and color Doppler images were also obtained. INDICATION: Right lower extremity swelling and pain. COMPARISON: None. FINDINGS: The visualized deep and superficial venous system is patent. There is no mass or DVT. IMPRESSION: Negative right lower extremity venous Doppler. Dictated by: Dictated on workstation # [id number] Dict: 08/06/1836 Trans: 08/06/18951 Interpreted by: NITHYA OCHOA Electronically signed by: NITHYA OCHOA 08/06/18951 Reviewed: Reviewed by Me Departure Communication (Admissions) Time/Spoke to Admitting Phy: 00:[address] Ortiz at this time. She agrees with complains of admission to the ICU for DKA and UTI. Impression Primary Impression: Diabetic ketoacidosis Additional Impression: Chronic anemia Disposition: ADMITTED INPATIENT Condition: Stable/Unchanged Admissions Decision to Admit Reason: Admit from ER (General) Decision to Admit/Date: Jul 30, 2018 Time/Decision to Admit Time: 00:31 Departure-Patient Inst. Referrals: YANI CESAR MD (PCP/Family) Primary Care Physician FELIPA CAMPBELL Aug 05, 2018 21:08
[2018-08-05 21:18] LABS: BASOPHILS # (AUTO) 0.1 10^3/uL (0.0-0.1); BASOPHILS % (AUTO) 1 % (0-10); EOSINOPHILS % (AUTO) 0 % (0-10); HEMATOCRIT 23 % (35-52); LYMPHOCYTES # (AUTO) 1.4 X 10^3 (1.0-4.0); LYMPHOCYTES % (AUTO) 12 % (12-44); MEAN CORPUSCULAR HEMOGLOBIN 17 PG (25-34); MEAN CORPUSCULAR HGB CONC 26 G/DL (32-36); MEAN CORPUSCULAR VOLUME 64 FL (80-99); MEAN PLATELET VOLUME 9.4 FL (7.4-10.4); MONOCYTES # (AUTO) 0.9 X 10^3 (0.0-1.0); MONOCYTES % (AUTO) 7 % (0-12); NEUTROPHILS # (AUTO) 9.8 X 10^3 (1.8-7.8); NEUTROPHILS % (AUTO) 80 % (42-75); PLATELET COUNT 881 10^3/uL (130-400); RED BLOOD COUNT 3.61 10^6/uL (4.35-5.85); RED CELL DISTRIBUTION WIDTH 24.5 % (10.0-14.5); WHITE BLOOD COUNT 12.3 10^3/uL (4.3-11.0)
[2018-08-05 21:39] LABS: ALBUMIN 4.2 GM/DL (3.2-4.5); BILIRUBIN,TOTAL 0.4 MG/DL (0.1-1.0); CALCIUM 9.8 MG/DL (8.5-10.1); CREATININE SERUM 1.38 MG/DL (0.60-1.30); POTASSIUM 4.7 MMOL/L (3.6-5.0); TOTAL PROTEIN 7.8 GM/DL (6.4-8.2)
[2018-08-05 21:48] LABS: FIBRIN DEGRADATION PRODUCTS 0.84 UG/ML (0.00-0.49); INR 1.1 (0.8-1.4); PROTHROMBIN TIME PATIENT 14.6 SEC (12.2-14.7)
[2018-08-05] MEDS ORDERED: inSUlin (REGULAR) HUMAN 1 UNIT/0.01 ML (CHARGE PER UNIT) IV ONE (22:45)
[2018-08-05] MEDS ORDERED: NS IV 1000 ML 1,000 ML IV SCH (22:45)
[2018-08-05 23:55] LABS: BILIRUBIN,URINE NEGATIVE (NEGATIVE); CLARITY,URINE SLIGHTLY CLOUDY; COLOR,URINE YELLOW; GLUCOSE, URINE (UA) 4+ (NEGATIVE); KETONES,URINE 1+ (NEGATIVE); LEUKOCYTE ESTERASE ,URINE 2+ (NEGATIVE); NITRITE,URINE POSITIVE (NEGATIVE); PH,URINE 6.5 (5-9); PROTEIN,URINE 1+ (NEGATIVE); UROBILINOGEN,URINE NORMAL (NORMAL)
[2018-08-06] VITALS (38 sets, daily range): BP systolic 84–143; BP diastolic 40–76
[2018-08-06 00:14] LABS: BACTERIA,URINE MODERATE /HPF; SQUAMOUS EPITHELIAL CELL,UR 25-50 /HPF
[2018-08-06] MEDS ORDERED: inSUlin (REGULAR) HUMAN 1 UNIT/0.01 ML (CHARGE PER UNIT) IV ONE (00:15)
[2018-08-06] MEDS ORDERED: cefTRIAXone FOR IV USE 1,000 MG in NS (IVPB) 50 ML IV ONE (00:30)
[2018-08-06 00:35] LABS: ABG BASE EXCESS 0.1 MMOL/L (-2.5-2.5); ABG OXYGEN SATURATION 100 % (94-100); ABG PCO2 31 MMHG (35-45); ABG PH 7.49 (7.37-7.43); ABG PO2 108 MMHG (79-93); ABG TCO2 24.1 MMOL/L (21.0-31.0)
[2018-08-06 00:36] LABS: ALLENS TEST YES-POS
[2018-08-06 00:37] LABS: INSPIRED O2 ROOM AIR; PATIENT TEMP 98.3; VENTILATOR NO
--- OUTSIDE RECORDS SUMMARY | 2018-08-06 00:42 | XMS REPORT | Clinical Summary ---
Author Author [facility] Organization [facility] Address Unknown Phone Unavailable Care Team Providers Care Home Weatherizing Worker Name Role Phone Dave Lorenzana MD PCP Source Comments Some departments are not documenting in the electronic medical record. If you do not see the information that you expected, contact Release of Information in the Health Information Management department at [phone] for further assistance in locating additional records.[facility] Allergies Active Allergy Reactions Severity Noted [...] tablet by mouth at 30 tablet 0 Active mg tablet bedtime daily. 18 atorvastatin (LIPITOR) 80 Take 1 tablet by mouth 30 tablet 0 20 Active mg tablet daily. 18 lisinopril (PRINIVIL, Take 1 tablet by mouth 30 tablet 0 04/19/20 Active ZESTRIL) 2.5 mg tablet daily. 18 enoxaparin (LOVENOX) 80 Inject 0.8 mL under the 11.2 mL 0 04/18/20 Active mg syrg skin twice daily. 18 furosemide (LASIX) 40 mg Take 1 tablet by mouth 30 tablet 0 04/19/20 Active tablet daily. 18 spironolactone Take 1 tablet by mouth 60 tablet 0 04/18/20 Active (ALDACTONE) 25 mg tablet twice daily. Take with 18 food. medroxyprogesterone Take 1 tablet by mouth 60 tablet 0 04/18/20 Active (PROVERA) 10 mg tablet twice daily. Further 18 scripts to be given by PCP/CANVAS WORKER nystatin (NYSTOP) 100,000 Apply to pannus twice 15 g 0 04/18/20 Active unit/g topical powder daily 18 Active Problems Problem Noted Date Hypotension 04/18/2018 Bradycardia 04/18/2018 Acute systolic CHF (congestive heart failure) ([facility]) 04/13/2018 LV (left ventricular) mural thrombus without VA 04/13/2018 Iron deficiency anemia 04/13/2018 Polysubstance abuse ([facility]) 04/13/2018 DM (diabetes mellitus) ([facility]) 04/13/2018 Fibroids 04/13/2018 Mass of heart 04/11/2018 Encounters Date Type Specialty Care Team Description 05/10/2018 Telephone Obstetrics & Gynecology Caitlyn Krueger MD General Question from Last 3 Months Family History Medical [...] CANCER SCREENING 2008 COLORECTAL CANCER 2018 SCREENING SHINGLES RECOMBINANT 2018 VACCINE (1 of 2) INFLUENZA VACCINE 08/28/2018 CERVICAL CANCER SCREENING 04/14/2021 04/14/2018 HIV SCREENING Completed 04/11/2018 Results Not on filefrom Last 3 Months
--- OUTSIDE RECORDS SUMMARY | 2018-08-06 00:42 | XMS REPORT | Encounter Summary ---
Author Author [facility] Organization [facility] Address Unknown Phone Unavailable Care Team Providers Care Spanner Operator Name Role Phone Dave Lorenzana MD PCP Reason for Visit * Reason Comments General Question Encounter Details Date Type Department Care Team Description 05/10/2018 Telephone [facility] Caitlyn Krueger MD General Question Physicians - OBGYN [address] [facility] [place] [address] [address] [place] [address] Social History Tobacco Use Types Packs/Day Years Used Date Current Every Day Smoker Cigarettes 1 20 Smokeless Tobacco: Never Used Alcohol Use Drinks/Week oz/Week Comments No Sex Assigned at Date Recorded Not on file as of this encounter Functional Status Functional Status Response Date of Assessment Does the patient have a hearing impairment: No 04/11/2018 as of this encounter Miscellaneous Notes * Telephone Encounter - Jill Hill LPN - 05/10/2018 8:48 AM CDT Formatting of this note may be different from the original. [facility] letter sent. Previous Messages ----- Message ----- From: Jill Hill LPN Sent: 04/26/2018 2:51 PM LMTRC ----- Message ----- From: Catrachita Go LPN Sent: 04/20/2018 1:30 PM To: Jeannette Lyons RN, Caitlyn Krueger MD, * LMTR ----- Message ----- From: Caitlyn Krueger MD Sent: 04/19/2018 6:26 AM She's being seen for a hospital follow-up. ----- Message ----- From: Catrachita Go LPN Sent: 04/18/2018 10:25 AM Can you tell me why she is being seen. I don't see any insurance information. ----- Message ----- From: Caitlyn Krueger MD Sent: 04/18/2018 10:20 AM Please schedule patient for a follow-up visit in 2-4 weeks. Thank you! in this encounter Plan of Treatment Not on fileas of this encounter Visit Diagnoses Not on filein this encounter
--- OUTSIDE RECORDS SUMMARY | 2018-08-06 00:43 | XMS REPORT ---
Author Author YANI CESAR [facility] Address [address] [place] [address] Care Team Providers Care Rhia Name Role Phone YANI CESAR Unavailable PROBLEMS Type Condition ICD9-CM Code GHV98-QC Code Onset Dates Condition Status SNOMED Code Problem [facility] current use of insulin Z79.4 Active 486787350 Problem Hyperlipidemia, unspecified hyperlipidemia type E78.5 Active 42171025 Problem Gastroparesis K31.84 Active 822187378 Problem PVD (peripheral vascular disease) I73.9 Active 485685683 Problem Anticoagulated by anticoagulation treatment Z79.01 Active 093410100 Problem Iron deficiency anemia due to chronic blood loss D50.0 Active 025161221 Problem Type 2 diabetes mellitus with foot ulcer E11.621 Active 6027794270186 Problem Type 2 diabetes mellitus without complications E11.9 Active 994987896 Problem Dysfunctional uterine bleeding N93.8 Active 26271273 Problem 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, 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 Active [id number] ALLERGIES No Information ENCOUNTERS Encounter Location Date Diagnosis [place] [id number] [place] [address] 71461- 8796 May, Other fluid overload E87.79 and Hyperlipidemia, unspecified hyperlipidemia type E78.5 [place] [id number] [place] [address] 80948- 4986 Apr, Other fluid overload E87.79 and Hyperlipidemia, unspecified hyperlipidemia type E78.5 [place] [id number] [place] [address] 24043- 7684 Apr, [place] [id number] [place] [address] 27832- 5801 Apr, [place] [address] 79356- 8297 Apr, [place] [id number] [place] [address] 09415- 3511 Apr, [place] [id number] [place] [address] 80906- 4829 March, Acute embolism and thrombosis of left femoral vein I82.412 [place] [id number] [place] [address] 56598- 3334 March, PVD (peripheral vascular disease) I73.9 [place] [id number] [place] [address] 64234- 2881 March, Encounter for medication monitoring Z51.81 ; Iron deficiency anemia due to chronic blood loss D50.0 and Anticoagulated by anticoagulation treatment Z79.01 [place] [id number] [place] [address] 87511- 0113 March, Encounter for medication monitoring Z51.81 [place] [id number] [place] [address] 86507- 4810 March, Iron deficiency anemia due to chronic blood loss D50.0 ; Type 2 diabetes mellitus with foot ulcer E11.621 and Dysfunctional uterine bleeding N93.8 [place] [id number] [place] [address] 19953- 2543 Feb, PVD (peripheral vascular disease) I73.9 [place] [id number] [place] [address] 74662- 0365 Jan, [place] [id number] [place] [address] 58177- 9638 Jan, PVD (peripheral vascular disease) I73.9 [place] [id number] [place] [address] 52960- 6929 Dec, PVD (peripheral vascular disease) I73.9 [place] [id number] [place] [address] 63146- 2024 Dec, Pale complexion R23.1 and Severe anemia D64.9 [facility] [address] [address]- 6148 10 Nov, 2017 PVD (peripheral vascular disease) I73.9 [facility] [id number] [place] [address] 55436- 7415 09 Nov, 2017 PVD (peripheral vascular disease) I73.9 [place] [id number] [place] [address] 55258- 8071 07 Oct, 2017 PVD (peripheral vascular disease) I73.9 [place] [id number] [place] [address] 20272- 3082 Sep, PVD (peripheral vascular disease) I73.9 [place] [id number] [place] [address] 18182- 1340 16 Aug, 2017 PVD (peripheral vascular disease) I73.9 [place] [id number] [place] [address] 45847- 8261 18 Jul, 2017 PVD (peripheral vascular disease) I73.9 [place] [id number] [place] [address] 14801- 5959 Jun, Type 2 diabetes mellitus without complications E11.9 ; Hyperlipidemia, unspecified hyperlipidemia type E78.5 and PVD (peripheral vascular disease) I73.9 [place] [address] [address]- 7821 Jun, [place] [id number] [place] [address] 31678- 2940 Jun, Long-term use of high-risk medication Z79.899 [place] [id number] [place] [address] 56549- 8601 May, [place] [id number] [place] [address] 41894- 7302 May, Osteomyelitis, unspecified M86.9 [place] [id number] [place] [address] 79493- 8663 Apr, 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, 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 [place] [id number] [place] [address] 40278- 3896 March, Osteomyelitis, unspecified M86.9 [place] [id number] [place] [address] 60956- 8271 Feb, 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, 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 [place] [id number] [place] [address] 10163- 9407 Jan, 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, 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 [place] [id number] [place] [address] 71429- 4169 Jan, Type 2 diabetes mellitus without complications E11.9 ; [facility] current use of insulin Z79.4 ; Hyperlipidemia, unspecified hyperlipidemia type E78.5 ; Long-term use of high-risk medication Z79.899 and PVD (peripheral vascular disease) I73.9 [place] [id number] [place] [address] 46112- 6980 Dec, Cellulitis of right lower limb L03.115 [place] [id number] [place] [address] 09026- 4230 Dec, [place] [id number] [place] [address] 04020- 1967 Nov, 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, 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 [place] [id number] [place] [address] 91336- 8129 Nov, [place] [id number] [place] [address] 37889- 0284 Nov, [place] [id number] [place] [address] 01612- 1373 Oct, Other fluid overload E87.79 and Acute embolism and thrombosis of left femoral vein I82.412 [place] [address] [address]- 7530 Oct, [facility] [id number] [place] [address] 96780- 3086 Oct, [facility] [id number] [place] [address] 17977- 8571 Oct, PVD (peripheral vascular disease) I73.9 [facility] [id number] [place] [address] 05516- 2188 Oct, Other fluid overload E87.79 and Acute embolism and thrombosis of left femoral vein I82.412 [facility] [id number] [place] [address] 91029- 7038 Oct, [facility] [id number] [place] [address] 43643- 4499 Oct, 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, 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 [facility] [id number] [place] [address] 84208- 4492 10 Sep, 2016 [facility] [id number] [place] [address] 57965- 3380 Sep, [facility] [id number] [place] [address] 14551- 0603 08 Sep, 2016 PVD (peripheral vascular disease) I73.9 [facility] [id number] [place] [address] 80416- 1272 07 Aug, 2016 Type 2 diabetes mellitus with foot ulcer E11.621 and PVD ( peripheral vascular disease) I73.9 [facility] [address] [address]- 4912 30 Jul, 2016 [facility] [id number] [place] [address] 49236- 9081 13 Jul, 2016 [facility] [address] [address]- 8747 12 Jul, 2016 [facility] [id number] [address]- 2335 Jul, [facility] [address] [address]- 0379 Jun, [facility] [address] [address]- 5297 Jun, [facility] [address] [address]- 2340 Jun, [facility] [address] [address]- 8190 May, [facility] [id number] [place] [address] 13354- 3701 May, PVD (peripheral vascular disease) I73.9 ; Type 2 diabetes mellitus without complications E11.9 ; [facility] current use of insulin Z79.4 and Hyperlipidemia, unspecified hyperlipidemia type E78.5 [facility] [address] [address]- 3215 May, [facility] [address] [address]- 3749 May, [facility] [address] [address]- 9297 May, [facility] [address] [address]- 5088 Feb, [facility] [address] [address]- 7643 Feb, [facility] [address] [address]- 8729 Jan, [facility] [address] [address]- 9851 Jan, [facility] [id number] [address]- 1169 Dec, [facility] [address] [address]- 9576 Dec, [facility] [place] [facility] [address] [id number] [place] [address]- 2439 Oct, [facility] [place] [facility] [address] [facility] [id number] [place] [address]- 4340 Oct, [facility] [place] [facility] [address] [facility] [id number] [place] [address]- 8677 Sep, [facility] [place] [facility] [address] [id number] [place] [address]- 1689 Sep, [facility] [place] [facility] [address] [facility] [id number] [place] [address]- 7762 Sep, [facility] [place] [facility] [address] [facility] [id number] [place] [address]- 3240 Sep, [facility] [place] [facility] [id number] [address]- 9112 Aug, [facility] [place] [facility] [address] [facility] [id number] [place] [address]- 4192 Aug, [facility] [place] [facility] [address] [facility] [id number] [place] [address]- 8825 Jul, [facility] [place] [facility] [address] [facility] [id number] [place] [address]- 0654 Jul, [facility] [place] [facility] [address] [facility] [id number] [address]- 1432 Apr, [facility] [place] [facility] [address] [facility] [id number] [address]- 2222 Apr, [facility] [place] [facility] [address] [facility] [id number] [address]- 6013 Feb, [facility] [place] [facility] [address] [facility] [id number] [address]- 9719 Feb, [facility] [place] [facility] [address] [facility] [id number], [place] [address]- 9601 Jan, [facility] [place] [facility] [address] [id number] [place] [address]- 1691 Jan, [facility] [place] [facility] [address] [id number] [place] [address]- 8470 Dec, [facility] [place] [facility] [address] [id number] [place] [address]- 4318 Dec, [facility] [place] [facility] [address] [id number] [place] 2066 Oct, [facility] [place] [facility] [address] [id number] [place] [address]- 7289 Oct, [facility] [place] [facility] [address] [id number] [place] [address]- 5847 Sep, [facility] [place] [facility] [address] [id number] [place] [address]- 7915 Sep, [facility] [place] [facility] [address] [id number] [place] [address]- 4981 Sep, [facility] [place] [facility] [address] [id number] [place] [address]- 4054 Sep, [facility] [place] [facility] [address] [id number] [place] [address]- 8136 Sep, [facility] [place] [facility] [address] [id number] [place] [address]- 0034 Sep, [facility] [place] [facility] [address] [id number] [place] [address]- 2832 Aug, [facility] [place] [facility] [address] [id number] [place] [address]- 3457 Jul, [facility] [place] [facility] [address] [id number] [place] [address]- 0179 Jun, [facility] [place] [facility] [address] [id number] [place] [address]- 1664 May, [facility] [place] [facility] [address] [id number] [place] [address]- 3609 Apr, [facility] [place] [facility] [address] [id number] [place] [address]- 0288 Apr, [facility] [place] [facility] [address] [id number] [place] [address]- 0972 Apr, [facility] [place] [facility] [address] [facility] [id number] [place] [address]- 4544 March, [facility] [place] [facility] [address] [id number] [place] [address]- 5712 15 Jan, 2013 [facility] [place] [facility] [address] [id number] [place] [address]- 5949 10 Jan, 2013 [facility] [place] [facility] [address] [facility] [id number] [place] [address]- 4534 08 Jan, 2013 [facility] [place] [facility] [address] [facility] [id number] [place] [address]- 7697 Jan, [facility] [place] [facility] [address] [id number] [place] [address]- 8042 06 Jan, 2013 [facility] [place] [facility] [address] [facility] [id number] [place] [address]- 2996 Dec, [facility] [place] [facility] [address] [facility] [id number] [place] [address]- 3673 18 Dec, 2012 [facility] [place] [facility] [address] [facility] [id number] [place] [address]- 3036 Dec, [facility] [place] [facility] [address] [facility] [id number] [place] [address] 2548 07 Dec, 2012 [facility] [place] [facility] [address] [id number] [place] [address]- 7504 05 Dec, 2012 [facility] [place] [facility] [address] [facility] [id number] [place] [address]- 2418 Nov, [facility] [place] [facility] [address] [facility] [id number] [place] [address]- 2546 Nov, [facility] [place] [facility] [address] [id number] [place] [address]- 2504 Nov, [facility] [address] [id number] [place] [address]- 8568 Nov, [facility] [place] [facility] [address] [id number] [place] [address]- 2844 Nov, [facility] [place] [facility] [address] [id number] [place] [address]- 7167 Nov, [facility] [place] [facility] [address] [id number] [place] [address]- 6540 Nov, [facility] [place] [facility] [address] [id number] [place] [address]- 7917 Nov, [facility] [place] [facility] [address] [id number] [place] [address]- 0412 Nov, [facility] [place] [facility] [address] [id number] [place] [address]- 4455 Sep, [facility] [place] [facility] [address] [id number] [place] [address]- 4765 14 Sep, 2012 [facility] [place] [facility] [address] [id number] [place] [address]- 4989 25 Jul, 2012 [facility] [place] [facility] [address] [id number] [place] [address]- 4021 17 Jul, 2012 [facility] [place] [facility] [address] [id number] [place] [address]- 4613 11 Jul, 2012 [facility] [place] [facility] [address] [id number] [place] [address] 2543 10 Jul, 2012 [facility] [place] [facility] [address] [id number] [place] [address]- 2416 05 Jul, 2012 [facility] [place] [facility] [address] [id number] [place] [address] 2546 05 Jul, 2012 [facility] [place] [facility] [address] [id number] [place] [address]- 8296 28 Jun, 2012 [facility] [place] [facility] [address] [id number] [place] [address]- 5190 20 Jun, 2012 [facility] [place] [facility] [address] [id number] [place] [address]- 5306 18 Jun, 2012 [facility] [place] [facility] [address] [id number] [place] [address]- 1081 17 Jun, 2012 [facility] [place] [facility] [address] [id number] [place] [address]- 2758 16 Jun, 2012 [facility] [place] [facility] [address] [id number] [place] [address]- 2674 14 Jun, 2012 [facility] [place] [facility] [address] [id number] [place] [address]- 6447 14 Jun, 2012 [facility] [place] [facility] [address] [id number] [place] [address]- 2650 Jun, [facility] [place] [facility] [address] [id number] [place] [address]- 8847 30 May, 2012 [facility] [place] [facility] [address] [id number] [place] [address]- 3642 May, [facility] [place] [facility] [address] [id number] [place] [address]- 3308 Apr, [facility] [place] [facility] [address] [id number] [place] [address]- 9824 March, [facility] [place] [facility] [address] [id number] [place] [address]- 5887 March, [facility] [place] [facility] [address] [id number] [place] [address]- 6916 March, [facility] [place] [facility] [address] [id number] [place] [address]- 5897 March, [facility] [place] [facility] [address] [id number] [place] [address]- 1078 Feb, [facility] [place] [facility] [address] [id number] [place] [address]- 5548 13 Feb, 2012 [facility] [address] [id number] [place] [address]- 0208 Feb, [facility] [place] [facility] [address] [id number] [place] [address]- 4326 Jan, [facility] [place] [facility] [address] [id number] [place] [address]- 3076 Dec, [facility] [place] [facility] [address] [id number] [place] [address] 2541 08 Dec, 2011 [facility] [place] [facility] [id number] [place] [address], [place] [address]- 5977 Dec, [facility] [place] [facility] [address] [id number] [place] [address]- 3526 Dec, [facility] [place] [facility] [address] [facility] [id number] [place] [address]- 6390 Dec, [facility] [place] [facility] [address] [id number] [place] [address]- 3915 Nov, [facility] [place] [facility] [id number] [address]- 8135 Oct, [facility] [address] [facility] [id number] [place] [address]- 1568 Sep, [facility] [place] [facility] [address] [id number] [place] [address]- 0321 Sep, [facility] [place] [facility] [address] [id number] [address]- 2567 Aug, [facility] [place] [facility] [address] [id number] [place] 5404 Aug, [facility] [place] [facility] [address] [facility] [id number] [place] [address]- 5922 14 Nov, 2010 [facility] [place] [facility] [address] [facility] [id number] [place] [address]- 0941 Aug, [facility] [address] [facility] [id number] [place] [address] [address]1 March, IMMUNIZATIONS No Known Immunizations SOCIAL HISTORY Never Assessed REASON FOR VISIT DM ED Attempt PLAN OF CARE VITAL SIGNS MEDICATIONS Unknown [...]
--- OUTSIDE RECORDS SUMMARY | 2018-08-06 00:43 | XMS REPORT ---
Author Author YANI CESAR [facility] Address [address] [place] [address] Care Team Providers Care Outpatient Physical Therapist Name Role Phone YANI CESAR Unavailable PROBLEMS Type Condition ICD9-CM Code FEV56-NK Code Onset Dates Condition Status SNOMED Code Problem half-way current use of insulin Z79.4 Active 681003837 Problem Hyperlipidemia, unspecified hyperlipidemia type E78.5 Active 93196918 Problem Gastroparesis K31.84 Active 312623515 Problem PVD (peripheral vascular disease) I73.9 Active 553668617 Problem Anticoagulated by anticoagulation treatment Z79.01 Active 669310023 Problem Iron deficiency anemia due to chronic blood loss D50.0 Active 779074288 Problem Type 2 diabetes mellitus with foot ulcer E11.621 Active 1727740746451 Problem Type 2 diabetes mellitus without complications E11.9 Active 723983008 Problem Dysfunctional uterine bleeding N93.8 Active 66049447 Problem Atherosclerosis of [place] arteries of extremities with gangrene, 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 Active [id number] ALLERGIES No Information ENCOUNTERS Encounter Location Date Diagnosis [place] [id number] [place] [address] 97157- 0904 May, Other fluid overload E87.79 and Hyperlipidemia, unspecified hyperlipidemia type E78.5 [place] [id number] [place] [address] 66987- 3940 Apr, Other fluid overload E87.79 and Hyperlipidemia, unspecified hyperlipidemia type E78.5 [place] [id number] [place] [address] 80761- 6515 Apr, [place] [id number] [place] [address] 64437- 0662 Apr, [place] [address] 68176- 3499 Apr, [place] [id number] [place] [address] 05582- 4606 Apr, [place] [id number] [place] [address] 14831- 2422 March, Acute embolism and thrombosis of left femoral vein I82.412 [place] [id number] [place] [address] 60175- 6548 March, PVD (peripheral vascular disease) I73.9 [place] [id number] [place] [address] 38388- 5326 March, Encounter for medication monitoring Z51.81 ; Iron deficiency anemia due to chronic blood loss D50.0 and Anticoagulated by anticoagulation treatment Z79.01 [place] [id number] [place] [address] 05875- 1048 March, Encounter for medication monitoring Z51.81 [place] [id number] [place] [address] 30334- 9710 March, Iron deficiency anemia due to chronic blood loss D50.0 ; Type 2 diabetes mellitus with foot ulcer E11.621 and Dysfunctional uterine bleeding N93.8 [place] [id number] [place] [address] 72195- 1021 Feb, PVD (peripheral vascular disease) I73.9 [place] [id number] [place] [address] 68410- 4430 Jan, [place] [id number] [place] [address] 91407- 2123 Jan, PVD (peripheral vascular disease) I73.9 [place] [id number] [place] [address] 29435- 5322 Dec, PVD (peripheral vascular disease) I73.9 [place] [id number] [place] [address] 61122- 6020 Dec, Pale complexion R23.1 and Severe anemia D64.9 [facility] [address] [address]- 1217 10 Nov, 2017 PVD (peripheral vascular disease) I73.9 [facility] [id number] [place] [address] 32891- 9102 09 Nov, 2017 PVD (peripheral vascular disease) I73.9 [place] [id number] [place] [address] 99774- 8518 07 Oct, 2017 PVD (peripheral vascular disease) I73.9 [place] [id number] [place] [address] 00089- 1177 Sep, PVD (peripheral vascular disease) I73.9 [place] [id number] [place] [address] 77336- 8073 16 Aug, 2017 PVD (peripheral vascular disease) I73.9 [place] [id number] [place] [address] 06652- 7657 18 Jul, 2017 PVD (peripheral vascular disease) I73.9 [place] [id number] [place] [address] 58440- 9068 Jun, Type 2 diabetes mellitus without complications E11.9 ; Hyperlipidemia, unspecified hyperlipidemia type E78.5 and PVD (peripheral vascular disease) I73.9 [place] [address] [address]- 8887 Jun, [place] [id number] [place] [address] 16892- 2727 Jun, Long-term use of high-risk medication Z79.899 [place] [id number] [place] [address] 42100- 1055 May, [place] [id number] [place] [address] 73242- 7510 May, Osteomyelitis, unspecified M86.9 [place] [id number] [place] [address] 51952- 7221 Apr, Atherosclerosis of [place] arteries of extremities with gangrene, 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 [place] [id number] [place] [address] 36562- 9777 March, Osteomyelitis, unspecified M86.9 [place] [id number] [place] [address] 88804- 1670 Feb, Atherosclerosis of [place] arteries of extremities with gangrene, 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 [place] [id number] [place] [address] 44657- 6821 Jan, Atherosclerosis of [place] arteries of extremities with gangrene, 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 [place] [id number] [place] [address] 53119- 2093 Jan, Type 2 diabetes mellitus without complications E11.9 ; half-way current use of insulin Z79.4 ; Hyperlipidemia, unspecified hyperlipidemia type E78.5 ; Long-term use of high-risk medication Z79.899 and PVD (peripheral vascular disease) I73.9 [place] [id number] [place] [address] 28132- 3330 Dec, Cellulitis of right lower limb L03.115 [place] [id number] [place] [address] 10215- 8220 Dec, [place] [id number] [place] [address] 51718- 9846 Nov, Atherosclerosis of [place] arteries of extremities with gangrene, 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 [place] [id number] [place] [address] 07585- 0360 Nov, [place] [id number] [place] [address] 15520- 4905 Nov, [place] [id number] [place] [address] 58345- 1877 Oct, Other fluid overload E87.79 and Acute embolism and thrombosis of left femoral vein I82.412 [place] [address] [address]- 9842 Oct, [facility] [address] [place] [address] 05578- 8103 Oct, [facility] [id number] [place] [address] 29478- 0887 Oct, PVD (peripheral vascular disease) I73.9 [facility] [id number] [place] [address] 67974- 5472 Oct, Other fluid overload E87.79 and Acute embolism and thrombosis of left femoral vein I82.412 [facility] [id number] [place] [address] 90755- 8792 Oct, [facility] [address] [place] [address] 59330- 8046 Oct, Atherosclerosis of [place] arteries of extremities with gangrene, 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 [facility] [address] [place] [address] 18000- 2319 10 Sep, 2016 [facility] [address] [place] [address] 58234- 1734 Sep, [facility] [address] [place] [address] 10548- 9137 08 Sep, 2016 PVD (peripheral vascular disease) I73.9 [facility] [address] [place] [address] 03222- 6102 07 Aug, 2016 Type 2 diabetes mellitus with foot ulcer E11.621 and PVD ( peripheral vascular disease) I73.9 [facility] [address] [address]- 7791 30 Jul, 2016 [facility] [address] [place] [address] 10255- 8783 13 Jul, 2016 [facility] [address] [address]- 9725 12 Jul, 2016 [facility] [id number] [address]- 7467 Jul, [facility] [address] [address]- 4242 Jun, [facility] [address] [address]- 7027 Jun, [facility] [address] [address]- 1402 Jun, [facility] [address] [address]- 3304 May, [facility] [address] [place] [address] 37542- 6939 May, PVD (peripheral vascular disease) I73.9 ; Type 2 diabetes mellitus without complications E11.9 ; half-way current use of insulin Z79.4 and Hyperlipidemia, unspecified hyperlipidemia type E78.5 [facility] [address] [address]- 4545 May, [facility] [address] [address]- 9366 May, [facility] [address] [address]- 3878 May, [facility] [address] [address]- 8531 Feb, [facility] [address] [address]- 2549 Feb, [facility] [address] [address]- 2337 Jan, [facility] [address] [address]- 3327 Jan, [facility] [address] [id number] [address]- 5228 Dec, [facility] [address] [address]- 7118 Dec, [facility] [place] [facility] [address] [id number] [place] [address]- 4385 Oct, [facility] [place] [facility] [address] [facility] [id number] [place] [address]- 6818 Oct, [facility] [place] [facility] [address] [facility] [id number] [place] [address]- 1183 Sep, [facility] [place] [facility] [address] [id number] [place] [address]- 8551 Sep, [facility] [place] [facility] [address] [facility] [id number] [place] [address]- 2305 Sep, [facility] [place] [facility] [address] [facility] [id number] [place] [address]- 5261 Sep, [facility] [place] [facility] [id number] [address]- 7695 Aug, [facility] [place] [facility] [address] [facility] [id number] [place] [address]- 3237 Aug, [facility] [place] [facility] [address] [facility] [id number] [place] [address]- 5915 Jul, [facility] [place] [facility] [address] [facility] [id number] [place] [address]- 8639 Jul, [facility] [place] [facility] [address] [facility] [id number] [address]- 9625 Apr, [facility] [place] [facility] [address] [facility] [id number] [address]- 1956 Apr, [facility] [place] [facility] [address] [facility] [id number] [place] [address]- 5804 Feb, [facility] [place] [facility] [address] [facility] [id number] [place] [address]- 2157 Feb, [facility] [place] [facility] [address] [facility] [id number] [place] [address]- 2515 Jan, [facility] [place] [facility] [address] [id number] [place] [address]- 2979 Jan, [facility] [place] [facility] [address] [id number] [place] [address]- 8260 Dec, [facility] [place] [facility] [address] [id number] [place] [address]- 9915 Dec, [facility] [place] [facility] [address] [id number] [place] 1087 Oct, [facility] [place] [facility] [address] [id number] [place] [address]- 5003 Oct, [facility] [place] [facility] [address] [id number] [place] [address]- 7507 Sep, [facility] [place] [facility] [address] [id number] [place] [address]- 9941 Sep, [facility] [place] [facility] [address] [id number] [place] [address]- 0924 Sep, [facility] [place] [facility] [address] [id number] [place] [address]- 3625 Sep, [facility] [place] [facility] [address] [id number] [place] [address]- 6133 Sep, [facility] [place] [facility] [address] [id number] [place] [address]- 0103 Sep, [facility] [place] [facility] [address] [id number] [place] [address]- 7177 Aug, [facility] [place] [facility] [address] [id number] [place] [address]- 3802 Jul, [facility] [place] [facility] [address] [id number] [place] [address]- 9284 Jun, [facility] [place] [facility] [address] [id number] [place] [address]- 1973 May, [facility] [place] [facility] [address] [id number] [place] [address]- 6381 Apr, [facility] [place] [facility] [address] [id number] [place] [address]- 0420 Apr, [facility] [place] [facility] [address] [id number] [place] [address]- 3435 Apr, [facility] [place] [facility] [address] [facility] [id number] [place] [address]- 5040 March, [facility] [place] [facility] [address] [id number] [place] [address]- 5378 15 Jan, 2013 [facility] [place] [facility] [address] [id number] [place] [address]- 5112 10 Jan, 2013 [facility] [place] [facility] [address] [facility] [id number] [place] [address]- 2593 08 Jan, 2013 [facility] [place] [facility] [address] [facility] [id number] [place] [address]- 1657 Jan, [facility] [place] [facility] [address] [id number] [place] [address]- 9454 06 Jan, 2013 [facility] [place] [facility] [address] [facility] [id number] [place] [address]- 4091 Dec, [facility] [place] [facility] [address] [facility] [id number] [place] [address]- 3727 18 Dec, 2012 [facility] [place] [facility] [address] [facility] [id number] [place] [address]- 7035 Dec, [facility] [place] [facility] [address] [facility] [id number] [place] [address] 2549 07 Dec, 2012 [facility] [place] [facility] [address] [id number] [place] [address]- 4121 05 Dec, 2012 [facility] [place] [facility] [address] [facility] [id number] [place] [address]- 9153 Nov, [facility] [place] [facility] [address] [facility] [id number] [place] [address]- 2546 Nov, [facility] [place] [facility] [address] [id number] [place] [address]- 5258 Nov, [facility] [address] [id number] [place] [address]- 0676 Nov, [facility] [place] [facility] [address] [id number] [place] [address]- 2654 Nov, [facility] [place] [facility] [address] [id number] [place] [address]- 7433 Nov, [facility] [place] [facility] [address] [id number] [place] [address]- 4277 Nov, [facility] [place] [facility] [address] [id number] [place] [address]- 3532 Nov, [facility] [place] [facility] [address] [id number] [place] [address]- 5813 Nov, [facility] [place] [facility] [address] [id number] [place] [address]- 0138 Sep, [facility] [place] [facility] [address] [id number] [place] [address]- 6674 14 Sep, 2012 [facility] [place] [facility] [address] [id number] [place] [address]- 0167 25 Jul, 2012 [facility] [place] [facility] [address] [id number] [place] [address]- 6665 17 Jul, 2012 [facility] [place] [facility] [address] [id number] [place] [address]- 2392 11 Jul, 2012 [facility] [place] [facility] [address] [id number] [place] [address] 2541 10 Jul, 2012 [facility] [place] [facility] [address] [id number] [place] [address]- 8706 05 Jul, 2012 [facility] [place] [facility] [address] [id number] [place] [address] 2546 05 Jul, 2012 [facility] [place] [facility] [address] [id number] [place] [address]- 7722 28 Jun, 2012 [facility] [place] [facility] [address] [id number] [place] [address]- 3916 20 Jun, 2012 [facility] [place] [facility] [address] [id number] [place] [address]- 6580 18 Jun, 2012 [facility] [place] [facility] [address] [id number] [place] [address]- 0996 17 Jun, 2012 [facility] [place] [facility] [address] [id number] [place] [address]- 9798 16 Jun, 2012 [facility] [place] [facility] [address] [id number] [place] [address]- 2641 14 Jun, 2012 [facility] [place] [facility] [address] [id number] [place] [address]- 0955 14 Jun, 2012 [facility] [place] [facility] [address] [id number] [place] [address]- 1118 Jun, [facility] [place] [facility] [address] [id number] [place] [address]- 7058 30 May, 2012 [facility] [place] [facility] [address] [id number] [place] [address]- 0497 May, [facility] [place] [facility] [address] [id number] [place] [address]- 2573 Apr, [facility] [place] [facility] [address] [id number] [place] [address]- 1007 March, [facility] [place] [facility] [address] [id number] [place] [address]- 9631 March, [facility] [place] [facility] [address] [id number] [place] [address]- 2554 March, [facility] [place] [facility] [address] [id number] [place] [address]- 1127 March, [facility] [place] [facility] [address] [id number] [place] [address]- 9643 Feb, [facility] [place] [facility] [address] [id number] [place] [address]- 4016 13 Feb, 2012 [facility] [address] [id number] [place] [address]- 6199 Feb, [facility] [place] [facility] [address] [id number] [place] [address]- 1576 Jan, [facility] [place] [facility] [address] [id number] [place] [address]- 6066 Dec, [facility] [place] [facility] [address] [id number] [place] [address] 2547 08 Dec, 2011 [facility] [place] [facility] [id number] [place] [address], [place] [address]- 0575 Dec, [facility] [place] [facility] [address] [id number] [place] [address]- 9330 Dec, [facility] [place] [facility] [address] [facility] [id number] [place] [address]- 5474 Dec, [facility] [place] [facility] [address] [id number] [place] [address]- 3784 Nov, [facility] [place] [facility] [id number] [place] [address]- 0807 Oct, [facility] [address] [facility] [id number] [place] [address]- 7174 Sep, [facility] [place] [facility] [address] [id number] [place] [address]- 0377 Sep, [facility] [place] [facility] [address] [id number] [address]- 4096 Aug, [facility] [place] [facility] [address] [id number] [place] 8353 Aug, [facility] [place] [facility] [address] [facility] [id number] [place] [address]- 3327 14 Nov, 2010 [facility] [place] [facility] [address] [facility] [id number] [place] [address]- 7285 Aug, [facility] [address] [facility] [id number] [place] [address] 7469 March, IMMUNIZATIONS No Known Immunizations SOCIAL HISTORY Never Assessed REASON FOR VISIT Narc violation PLAN OF CARE VITAL SIGNS MEDICATIONS Unknown [...]
--- OUTSIDE RECORDS SUMMARY | 2018-08-06 00:43 | XMS REPORT ---
Author Author YANI CESAR [facility] Address [address] [place] [address] Care Team Providers Care Professor Of Physics Name Role Phone YANI CESAR Unavailable PROBLEMS Type Condition ICD9-CM Code CQW12-VB Code Onset Dates Condition Status SNOMED Code Problem FDC current use of insulin Z79.4 Active 048782356 Problem Hyperlipidemia, unspecified hyperlipidemia type E78.5 Active 78119407 Problem Gastroparesis K31.84 Active 498132819 Problem PVD (peripheral vascular disease) I73.9 Active 557613975 Problem Anticoagulated by anticoagulation treatment Z79.01 Active 619229695 Problem Iron deficiency anemia due to chronic blood loss D50.0 Active 301743961 Problem Type 2 diabetes mellitus with foot ulcer E11.621 Active 0489037482762 Problem Type 2 diabetes mellitus without complications E11.9 Active 892173236 Problem Dysfunctional uterine bleeding N93.8 Active 87696691 Problem Atherosclerosis of [place] arteries of extremities with gangrene, 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 Active [id number] ALLERGIES No Information ENCOUNTERS Encounter Location Date Diagnosis [place] [id number] [place] [address] 10591- 0566 May, Other fluid overload E87.79 and Hyperlipidemia, unspecified hyperlipidemia type E78.5 [place] [id number] [place] [address] 62926- 0079 Apr, Other fluid overload E87.79 and Hyperlipidemia, unspecified hyperlipidemia type E78.5 [place] [id number] [place] [address] 81210- 9534 Apr, [place] [id number] [place] [address] 55864- 7909 Apr, [place] [address] 36996- 3204 Apr, [place] [address] [place] [address] 92604- 9894 Apr, [place] [id number] [place] [address] 68618- 7961 March, Acute embolism and thrombosis of left femoral vein I82.412 [place] [id number] [place] [address] 87336- 0733 March, PVD (peripheral vascular disease) I73.9 [place] [id number] [place] [address] 13825- 3702 March, Encounter for medication monitoring Z51.81 ; Iron deficiency anemia due to chronic blood loss D50.0 and Anticoagulated by anticoagulation treatment Z79.01 [place] [id number] [place] [address] 73958- 8576 March, Encounter for medication monitoring Z51.81 [place] [id number] [place] [address] 09116- 9124 March, Iron deficiency anemia due to chronic blood loss D50.0 ; Type 2 diabetes mellitus with foot ulcer E11.621 and Dysfunctional uterine bleeding N93.8 [place] [id number] [place] [address] 63587- 0154 Feb, PVD (peripheral vascular disease) I73.9 [place] [id number] [place] [address] 57260- 5135 Jan, [place] [id number] [place] [address] 25913- 5134 Jan, PVD (peripheral vascular disease) I73.9 [place] [id number] [place] [address] 70207- 9805 Dec, PVD (peripheral vascular disease) I73.9 [place] [id number] [place] [address] 78178- 4819 Dec, Pale complexion R23.1 and Severe anemia D64.9 [facility] [address], [place] [address] 9702 10 Nov, 2017 PVD (peripheral vascular disease) I73.9 [facility] [id number] [place] [address] 49034- 6697 09 Nov, 2017 PVD (peripheral vascular disease) I73.9 [place] [id number] [place] [address] 36748- 5424 07 Oct, 2017 PVD (peripheral vascular disease) I73.9 [place] [id number] [place] [address] 19167- 1980 Sep, PVD (peripheral vascular disease) I73.9 [place] [id number] [place] [address] 90258- 8254 16 Aug, 2017 PVD (peripheral vascular disease) I73.9 [place] [id number] [place] [address] 65614- 7231 18 Jul, 2017 PVD (peripheral vascular disease) I73.9 [place] [id number] [place] [address] 59399- 0248 Jun, Type 2 diabetes mellitus without complications E11.9 ; Hyperlipidemia, unspecified hyperlipidemia type E78.5 and PVD (peripheral vascular disease) I73.9 [place] [address], [place] [address]- 5067 Jun, [place] [id number] [place] [address] 58138- 6011 Jun, Long-term use of high-risk medication Z79.899 [place] [id number] [place] [address] 71512- 8390 May, [place] [id number] [place] [address] 96953- 1694 May, Osteomyelitis, unspecified M86.9 [place] [id number] [place] [address] 27644- 1625 Apr, Atherosclerosis of [place] arteries of extremities with gangrene, 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 [place] [id number] [place] [address] 98213- 8352 March, Osteomyelitis, unspecified M86.9 [place] [id number] [place] [address] 88580- 0786 Feb, Atherosclerosis of [place] arteries of extremities with gangrene, 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 [place] [id number] [place] [address] 27651- 3008 Jan, Atherosclerosis of [place] arteries of extremities with gangrene, 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 [place] [id number] [place] [address] 63671- 7531 Jan, Type 2 diabetes mellitus without complications E11.9 ; FDC current use of insulin Z79.4 ; Hyperlipidemia, unspecified hyperlipidemia type E78.5 ; Long-term use of high-risk medication Z79.899 and PVD (peripheral vascular disease) I73.9 [place] [id number] [place] [address] 31103- 1712 Dec, Cellulitis of right lower limb L03.115 [place] [id number] [place] [address] 14554- 9989 Dec, [place] [id number] [place] [address] 06174- 9985 Nov, Atherosclerosis of [place] arteries of extremities with gangrene, 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 [place] [id number] [place] [address] 22260- 3783 Nov, [place] [id number] [place] [address] 43130- 6170 Nov, [place] [id number] [place] [address] 50721- 4485 Oct, Other fluid overload E87.79 and Acute embolism and thrombosis of left femoral vein I82.412 [place] [address], [place] [address]- 8628 Oct, [facility] [address] [place] [address] 83329- 7626 Oct, [facility] [id number] [place] [address] 07102- 9773 Oct, PVD (peripheral vascular disease) I73.9 [facility] [id number] [place] [address] 17672- 4818 Oct, Other fluid overload E87.79 and Acute embolism and thrombosis of left femoral vein I82.412 [facility] [id number] [place] [address] 63907- 4943 Oct, [facility] [address] [place] [address] 02892- 9129 Oct, Atherosclerosis of [place] arteries of extremities with gangrene, 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 [facility] [address] [place] [address] 02067- 8176 10 Sep, 2016 [facility] [address] [place] [address] 66577- 4184 Sep, [facility] [address] [place] [address] 78170- 6042 08 Sep, 2016 PVD (peripheral vascular disease) I73.9 [facility] [address] [place] [address] 59153- 8766 07 Aug, 2016 Type 2 diabetes mellitus with foot ulcer E11.621 and PVD ( peripheral vascular disease) I73.9 [facility] [address], [place] [address]- 8900 30 Jul, 2016 [facility] [address] [place] [address] 42233- 2973 13 Jul, 2016 [facility] [address], [place] [address]- 2633 12 Jul, 2016 [facility] [id number] [place] [address]- 0765 Jul, [facility] [address], [place] [address]- 2264 Jun, [facility] [address], [place] [address]- 5068 Jun, [facility] [address], [place] [address]- 4315 Jun, [facility] [address], [place] [address]- 2569 May, [facility] [address] [place] [address] 94468- 5671 May, PVD (peripheral vascular disease) I73.9 ; Type 2 diabetes mellitus without complications E11.9 ; FDC current use of insulin Z79.4 and Hyperlipidemia, unspecified hyperlipidemia type E78.5 [facility] [address], [place] [address]- 2711 May, [facility] [address], [place] [address]- 3399 May, [facility] [address], [place] [address]- 0419 May, [facility] [address], [place] [address]- 6494 Feb, [facility] [address], [place] [address]- 1294 Feb, [facility] [address], [place] [address]- 5052 Jan, [facility] [address], [place] [address]- 3491 Jan, [facility] [id number] [place] [address]- 8165 Dec, [facility] [address], [place] [address]- 2413 Dec, [facility] [place] [facility] [address] [id number] [place] [address]- 5378 Oct, [facility] [place] [facility] [address] [facility] [id number] [place] [address]- 6977 Oct, [facility] [place] [facility] [address] [facility] [id number] [place] [address]- 6668 Sep, [facility] [place] [facility] [address] [id number] [place] [address]- 6075 Sep, [facility] [place] [facility] [address] [facility] [id number] [place] [address]- 0820 Sep, [facility] [place] [facility] [address] [facility] [id number] [place] [address]- 1646 Sep, [facility] [place] [facility] [id number] [place] [address]- 4323 Aug, [facility] [place] [facility] [address] [facility] [id number] [place] [address]- 6124 Aug, [facility] [place] [facility] [address] [facility] [id number] [place] [address]- 2493 Jul, [facility] [place] [facility] [address] [facility] [id number] [place] [address]- 9100 Jul, [facility] [place] [facility] [address] [facility] [id number], [place] [address]- 4181 Apr, [facility] [place] [facility] [address] [facility] [id number], [place] [address]- 8718 Apr, [facility] [place] [facility] [address] [facility] [id number], [place] [address]- 5278 Feb, [facility] [place] [facility] [address] [facility] [id number] [address]- 9586 Feb, [facility] [place] [facility] [address] [facility] [id number] [address]- 6814 Jan, [facility] [place] [facility] [address] [id number] [place] [address]- 5846 Jan, [facility] [place] [facility] [address] [id number] [place] [address]- 0686 Dec, [facility] [place] [facility] [address] [id number] [place] [address]- 4869 Dec, [facility] [place] [facility] [address] [id number] [place] 3022 Oct, [facility] [place] [facility] [address] [id number] [place] [address]- 3048 Oct, [facility] [place] [facility] [address] [id number] [place] [address]- 4091 Sep, [facility] [place] [facility] [address] [id number] [place] [address]- 7282 Sep, [facility] [place] [facility] [address] [id number] [place] [address]- 9279 Sep, [facility] [place] [facility] [address] [id number] [place] [address]- 6020 Sep, [facility] [place] [facility] [address] [id number] [place] [address]- 9902 Sep, [facility] [place] [facility] [address] [id number] [place] [address]- 2827 Sep, [facility] [place] [facility] [address] [id number] [place] [address]- 4131 Aug, [facility] [place] [facility] [address] [id number] [place] [address]- 5997 Jul, [facility] [place] [facility] [address] [id number] [place] [address]- 5255 Jun, [facility] [place] [facility] [address] [id number] [place] [address]- 1905 May, [facility] [place] [facility] [address] [id number] [place] [address]- 8215 Apr, [facility] [place] [facility] [address] [id number] [place] [address]- 4496 Apr, [facility] [place] [facility] [address] [id number] [place] [address]- 3954 Apr, [facility] [place] [facility] [address] [facility] [id number] [place] [address]- 3049 March, [facility] [place] [facility] [address] [id number] [place] [address]- 4665 15 Jan, 2013 [facility] [place] [facility] [address] [id number] [place] [address]- 8972 10 Jan, 2013 [facility] [place] [facility] [address] [facility] [id number] [place] [address]- 2920 08 Jan, 2013 [facility] [place] [facility] [address] [facility] [id number] [place] [address]- 7269 Jan, [facility] [place] [facility] [address] [id number] [place] [address]- 8396 06 Jan, 2013 [facility] [place] [facility] [address] [facility] [id number] [place] [address]- 5385 Dec, [facility] [place] [facility] [address] [facility] [id number] [place] [address]- 3604 18 Dec, 2012 [facility] [place] [facility] [address] [facility] [id number] [place] [address]- 4400 Dec, [facility] [place] [facility] [address] [facility] [id number] [place] [address] 2542 07 Dec, 2012 [facility] [place] [facility] [address] [id number] [place] [address]- 2756 05 Dec, 2012 [facility] [place] [facility] [address] [facility] [id number] [place] [address]- 8458 Nov, [facility] [place] [facility] [address] [facility] [id number] [place] [address]- 2546 Nov, [facility] [place] [facility] [address] [id number] [place] [address]- 0024 Nov, [facility] [address] [id number] [place] [address]- 0428 Nov, [facility] [place] [facility] [address] [id number] [place] [address]- 8755 Nov, [facility] [place] [facility] [address] [id number] [place] [address]- 9389 Nov, [facility] [place] [facility] [address] [id number] [place] [address]- 8407 Nov, [facility] [place] [facility] [address] [id number] [place] [address]- 8054 Nov, [facility] [place] [facility] [address] [id number] [place] [address]- 4452 Nov, [facility] [place] [facility] [address] [id number] [place] [address]- 0328 Sep, [facility] [place] [facility] [address] [id number] [place] [address]- 9176 14 Sep, 2012 [facility] [place] [facility] [address] [id number] [place] [address]- 6814 25 Jul, 2012 [facility] [place] [facility] [address] [id number] [place] [address]- 5094 17 Jul, 2012 [facility] [place] [facility] [address] [id number] [place] [address]- 4017 11 Jul, 2012 [facility] [place] [facility] [address] [id number] [place] [address] 2545 10 Jul, 2012 [facility] [place] [facility] [address] [id number] [place] [address]- 1736 05 Jul, 2012 [facility] [place] [facility] [address] [id number] [place] [address] 2546 05 Jul, 2012 [facility] [place] [facility] [address] [id number] [place] [address]- 0484 28 Jun, 2012 [facility] [place] [facility] [address] [id number] [place] [address]- 5298 20 Jun, 2012 [facility] [place] [facility] [address] [id number] [place] [address]- 0102 18 Jun, 2012 [facility] [place] [facility] [address] [id number] [place] [address]- 6032 17 Jun, 2012 [facility] [place] [facility] [address] [id number] [place] [address]- 9828 16 Jun, 2012 [facility] [place] [facility] [address] [id number] [place] [address]- 3137 14 Jun, 2012 [facility] [place] [facility] [address] [id number] [place] [address]- 8584 14 Jun, 2012 [facility] [place] [facility] [address] [id number] [place] [address]- 8814 Jun, [facility] [place] [facility] [address] [id number] [place] [address]- 8105 30 May, 2012 [facility] [place] [facility] [address] [id number] [place] [address]- 3011 May, [facility] [place] [facility] [address] [id number] [place] [address]- 3038 Apr, [facility] [place] [facility] [address] [id number] [place] [address]- 5225 March, [facility] [place] [facility] [address] [id number] [place] [address]- 3654 March, [facility] [place] [facility] [address] [id number] [place] [address]- 2309 March, [facility] [place] [facility] [address] [id number] [place] [address]- 5659 March, [facility] [place] [facility] [address] [id number] [place] [address]- 0270 Feb, [facility] [place] [facility] [address] [id number] [place] [address]- 3720 13 Feb, 2012 [facility] [address] [id number] [place] [address]- 2802 Feb, [facility] [place] [facility] [address] [id number] [place] [address]- 6996 Jan, [facility] [place] [facility] [address] [id number] [place] [address]- 1106 Dec, [facility] [place] [facility] [address] [id number] [place] [address] 2543 08 Dec, 2011 [facility] [place] [facility] [address] [id number] [place] [address], [place] [address]- 6608 Dec, [facility] [place] [facility] [address] [id number] [place] [address]- 0878 Dec, [facility] [place] [facility] [address] [facility] [id number] [place] [address]- 5238 Dec, [facility] [place] [facility] [address] [id number] [place] [address]- 1180 Nov, [facility] [place] [facility] [id number] [address]- 6173 Oct, [facility] [address] [facility] [id number] [place] [address]- 3878 Sep, [facility] [place] [facility] [address] [id number] [place] [address]- 2717 Sep, [facility] [place] [facility] [address] [id number], [place] [address]- 0734 Aug, [facility] [place] [facility] [address] [id number] [place] 2223 Aug, [facility] [place] [facility] [address] [facility] [id number] [place] [address]- 8083 14 Nov, 2010 [facility] [place] [facility] [address] [facility] [id number] [place] [address]- 3515 Aug, [facility] [address] [facility] [id number] [place] [address]68 March, IMMUNIZATIONS No Known Immunizations SOCIAL HISTORY Never Assessed REASON FOR VISIT Refill request PLAN OF CARE VITAL SIGNS MEDICATIONS Medication Instructions Dosage Frequency Start Date End Date Duration Status Warfarin Sodium 7.5 MG Orally Once a day 2 tablets on Tuesday and . 1 tablet all other days 24h Active Lovastatin 40 mg Orally Once a day 2 tablet with a meal 24h Jun, Active Carvedilol 3.125 MG Orally Once a day 1 tablet 24h Active Spironolactone 25 MG Orally 2 times a day 1 tablet 12h Active Lasix 40 mg Orally Once a day 1 tablet 24h Active RESULTS No Results PROCEDURES No Known procedures INSTRUCTIONS MEDICATIONS ADMINISTERED No Known Medications MEDICAL (GENERAL) HISTORY Type Description Date Medical History LEFT below knee amputation Medical History Diabetes, Type II Medical History Hypertension Medical History Hyperlipidemia Surgical History Phuogn ZUNIGA Blood Clot/Gangrene 06/25/2016 Surgical History 2 csections Surgical History gallstone removal Surgical History Left BKA Hospitalization History Surgery Hospitalization History Bilat Pleural Effusions, Volume Overload 08/07/16 Hospitalization History Fluid in lungs 08/22/16 Hospitalization History Left below knee amputation 10/2016
--- OUTSIDE RECORDS SUMMARY | 2018-08-06 00:44 | XMS REPORT ---
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 Name Role Phone LAURA ROBERTS Unavailable PROBLEMS Type Condition ICD9-CM Code BIA73-NH Code Onset Dates Condition Status SNOMED Code Problem MCC current use of insulin Z79.4 Active 469002624 Problem Hyperlipidemia, unspecified hyperlipidemia type E78.5 Active 12801336 Problem Gastroparesis K31.84 Active 393758216 Problem PVD (peripheral vascular disease) I73.9 Active 006533665 Problem Anticoagulated by anticoagulation treatment Z79.01 Active 093690866 Problem Iron deficiency anemia due to chronic blood loss D50.0 Active 379301307 Problem Type 2 diabetes mellitus with foot ulcer E11.621 Active 1341851478277 Problem Type 2 diabetes mellitus without complications E11.9 Active 819581416 Problem Dysfunctional uterine bleeding N93.8 Active 91618216 Problem 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, 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 Active [id number] ALLERGIES No Information ENCOUNTERS Encounter Location Date Diagnosis [place] [id number] [place] [address] 18289- 8695 May, Other fluid overload E87.79 and Hyperlipidemia, unspecified hyperlipidemia type E78.5 [facility] [id number] [place] [address] 20238- 1806 Apr, Other fluid overload E87.79 and Hyperlipidemia, unspecified hyperlipidemia type E78.5 [facility] [id number] [place] [address] 24740- 4046 Apr, [place] [id number] [place] [address] 37618- 0705 Apr, [facility] [id number] [place] [address] [place] [address] 6004 14 Apr, 2018 [place] [id number] [address] 9437 Apr, [place] [id number] [place] [address] 64507- 4732 March, Acute embolism and thrombosis of left femoral vein I82.412 [place] [id number] [place] [address] 67518- 2247 March, PVD (peripheral vascular disease) I73.9 [place] [id number] [place] [address] 16868- 9527 March, Encounter for medication monitoring Z51.81 ; Iron deficiency anemia due to chronic blood loss D50.0 and Anticoagulated by anticoagulation treatment Z79.01 [place] [id number] [place] [address] 38606- 6938 March, Encounter for medication monitoring Z51.81 [place] [id number] [place] [address] 39395- 6065 March, Iron deficiency anemia due to chronic blood loss D50.0 ; Type 2 diabetes mellitus with foot ulcer E11.621 and Dysfunctional uterine bleeding N93.8 [place] [address] [address] 3553 Feb, PVD (peripheral vascular disease) I73.9 [place] [address] [address]- 7336 Jan, [place] [id number] [place] [address] 60036- 4112 Jan, PVD (peripheral vascular disease) I73.9 [place] [id number] [place] [address] 72907- 9860 Dec, PVD (peripheral vascular disease) I73.9 [place] [address] [address] 6741 01 Feb, 2018 Pale complexion R23.1 and Severe anemia D64.9 [place] [id number] [place] [address] 30359- 8665 Nov, PVD (peripheral vascular disease) I73.9 [facility] [id number] [place] [address] 96183- 1994 09 Nov, 2017 PVD (peripheral vascular disease) I73.9 [place] [id number] [place] [address] 61106- 9495 Oct, PVD (peripheral vascular disease) I73.9 [place] [id number] [place] [address] 00732- 2414 Sep, PVD (peripheral vascular disease) I73.9 [place] [id number] [place] [address] 85986- 5069 Aug, PVD (peripheral vascular disease) I73.9 [place] [id number] [place] [address] 24009- 2410 Jul, PVD (peripheral vascular disease) I73.9 [place] [id number] [place] [address] 14754- 7151 Jun, Type 2 diabetes mellitus without complications E11.9 ; Hyperlipidemia, unspecified hyperlipidemia type E78.5 and PVD (peripheral vascular disease) I73.9 [place] [id number] [place] [address] 20511- 0765 Jun, [place] [id number] [place] [address] 63286- 9630 Jun, Long-term use of high-risk medication Z79.899 [place] [id number] [place] [address] 00696- 4504 May, [place] [id number] [place] [address] 39267- 4549 May, Osteomyelitis, unspecified M86.9 [place] [id number] [place] [address] 20257- 1089 Apr, 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, 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 [place] [id number] [place] [address] 58800- 2418 March, Osteomyelitis, unspecified M86.9 [place] [id number] [place] [address] 48504- 6436 Feb, 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, 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 [place] [id number] [place] [address] 81443- 0777 Jan, 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, 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 [place] [id number] [place] [address] 98083- 0589 Jan, Type 2 diabetes mellitus without complications E11.9 ; MCC current use of insulin Z79.4 ; Hyperlipidemia, unspecified hyperlipidemia type E78.5 ; Long-term use of high-risk medication Z79.899 and PVD (peripheral vascular disease) I73.9 [place] [id number] [place] [address] 84648- 6531 Dec, Cellulitis of right lower limb L03.115 [place] [id number] [place] [address] 10502- 2354 Dec, [place] [id number] [place] [address] 03982- 7977 Nov, 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, 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 [place] [id number] [place] [address] 63397- 9950 Nov, [place] [id number] [place] [address] 68320- 5393 Nov, [place] [id number] [place] [address] 36394- 9335 Oct, Other fluid overload E87.79 and Acute embolism and thrombosis of left femoral vein I82.412 [facility] [address] [address]- 3770 Oct, [facility] [id number] [place] [address] 71287- 9739 Oct, [facility] [id number] [place] [address] 61563- 9992 Oct, PVD (peripheral vascular disease) I73.9 [facility] [id number] [place] [address] 58848- 1193 Oct, Other fluid overload E87.79 and Acute embolism and thrombosis of left femoral vein I82.412 [facility] [id number] [place] [address] 59058- 1046 Oct, [facility] [id number] [place] [address] 06339- 3713 Oct, 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, 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 [facility] [id number] [place] [address] 61323- 0222 10 Sep, 2016 [facility] [id number] [place] [address] 45434- 9119 Sep, [facility] [address] [address]- 5102 08 Sep, 2016 PVD (peripheral vascular disease) I73.9 [facility] [id number] [place] [address] 25726- 1605 07 Aug, 2016 Type 2 diabetes mellitus with foot ulcer E11.621 and PVD ( peripheral vascular disease) I73.9 [facility] [address] [address]- 7245 30 Jul, 2016 [facility] [id number] [place] [address] 66347- 4403 Jul, [facility] [id number] [place] [address] 00213- 5265 Jul, [facility] [address] [facility] [id number] [place] [address]- 5107 Jul, [facility] [address] [place] [address]- 9990 Jun, [facility] [address] [place] [address]- 1337 Jun, [facility] [address] [place] [address]- 8748 Jun, [facility] [id number] [place] [address]- 1044 May, [facility] [address] [place] [address]- 8458 May, PVD (peripheral vascular disease) I73.9 ; Type 2 diabetes mellitus without complications E11.9 ; MCC current use of insulin Z79.4 and Hyperlipidemia, unspecified hyperlipidemia type E78.5 [facility] [address] [place] [address]- 8581 May, [facility] [address] [address]- 3886 May, [facility] [address] [place] [address]- 2351 May, [facility] [address] [address]- 0243 Feb, [facility] [address] [address]- 9320 Feb, [facility] [address] [place] [address]- 5654 Jan, [facility] [address] [place] [address]- 9963 Jan, [facility] [id number] [place] [address]- 7216 Dec, [facility] [id number] [place] [address]- 5991 Dec, [facility] [place] [facility] [address] [id number] [place] [address]- 8481 Oct, [facility] [place] [facility] [address] [id number] [place] 9745 Oct, [facility] [place] [facility] [address] [id number] [place] [address]- 5348 Sep, [facility] [place] [facility] [address] [id number] [place] [address]- 3038 Sep, [facility] [place] [facility] [address] [id number] [place] [address]- 6798 Sep, [facility] [place] [facility] [address] [facility] [id number] [place] [address]- 2043 Sep, [facility] [place] [facility] [address] [id number] [place] [address]- 2112 Aug, [facility] [place] [facility] [address] [id number] [place] [address]- 2141 Aug, [facility] [place] [facility] [address] [id number] [place] [address]- 0262 Jul, [facility] [place] [facility] [address] [id number] [place] [address]- 0430 Jul, [facility] [place] [facility] [address] [id number] [place] [address]- 3086 Apr, [facility] [place] [facility] [address] [id number] [place] [address]- 0358 Apr, [facility] [place] [facility] [address] [id number] [place] [address]- 7191 Feb, [facility] [place] [facility] [address] [id number] [place] [address]- 1676 Feb, [facility] [place] [facility] [address] [id number] [place] [address]- 0199 Jan, [facility] [place] [facility] [address] [id number] [place] [address]- 7930 Jan, [facility] [place] [facility] [address] [id number] [place] [address]- 1389 Dec, [facility] [place] [facility] [address] [id number] [place] [address]- 4058 Dec, [facility] [place] [facility] [address] [id number] [place] [address]- 0000 Oct, [facility] [place] [facility] [address] [id number] [place] [address]- 6391 Oct, [facility] [place] [facility] [address] [id number] [place] [address]- 3294 Sep, [facility] [place] [facility] [address] [id number] [place] [address]- 6938 Sep, [facility] [place] [facility] [address] [id number] [place] [address]- 0313 Sep, [facility] [place] [facility] [address] [id number] [place] [address]- 8321 Sep, [facility] [place] [facility] [address] [facility] [id number] [place] [address]- 4910 Sep, [facility] [place] [facility] [address] [id number] [place] [address]- 1394 Sep, [facility] [place] [facility] [address] [id number] [place] [address]- 0890 Aug, [facility] [place] [facility] [address] [id number] [place] [address]- 9418 Jul, [facility] [place] [facility] [address] [id number] [place] [address]- 9714 Jun, [facility] [place] [facility] [address] [id number] [place] [address]- 3178 May, [facility] [place] [facility] [address] [id number] [place] [address]- 3221 25 Apr, 2013 [facility] [address] [id number] [place] [address]- 3002 Apr, [facility] [place] [facility] [address] [id number] [place] [address]- 2246 13 Apr, 2013 [facility] [place] [facility] [address] [facility] [id number] [place] [address]- 7736 March, [facility] [place] [facility] [address] [id number] [place] [address]- 2652 15 Jan, 2013 [facility] [address] [id number] [place] [address]- 1534 10 Jan, 2013 [facility] [place] [facility] [address] [facility] [id number] [place] [address]- 4561 08 Jan, 2013 [facility] [address] [facility] [id number] [place] [address]- 0042 07 Jan, 2013 [facility] [place] [facility] [address] [facility] [id number] [place] [address]- 3721 06 Jan, 2013 [facility] [place] [facility] [address] [facility] [id number] [place] [address]- 9044 19 Dec, 2012 [facility] [place] [facility] [address] [facility] [id number] [place] [address]- 4530 18 Dec, 2012 [facility] [place] [facility] [address] [facility] [id number] [place] [address]- 0086 Dec, [facility] [place] [facility] [address] [facility] [id number] [place] [address]- 2546 07 Dec, 2012 [facility] [place] [facility] [address] [id number] [place] [address]- 2546 05 Dec, 2012 [facility] [place] [facility] [address] [facility] [id number] [place] [address]- 2546 Nov, [facility] [place] [facility] [address] [facility] [id number] [place] 4672 Nov, [facility] [address] [id number] [place] [address]- 0711 Nov, [facility] [place] [facility] [address] [id number] [place] [address]- 6532 Nov, [facility] [place] [facility] [address] [id number] [place] [address]- 1217 Nov, [facility] [place] [facility] [address] [id number] [place] [address]- 8581 Nov, [facility] [place] [facility] [address] [id number] [place] [address]- 5597 Nov, [facility] [place] [facility] [address] [id number] [place] [address]- 9511 Nov, [facility] [place] [facility] [address] [id number] [place] [address]- 9755 Nov, [facility] [place] [facility] [address] [id number] [place] [address]- 6208 Sep, [facility] [place] [facility] [address] [id number] [place] [address]- 3336 14 Sep, 2012 [facility] [place] [facility] [address] [id number] [place] [address]- 1487 25 Jul, 2012 [facility] [place] [facility] [address] [id number] [place] [address]- 8050 17 Jul, 2012 [facility] [place] [facility] [address] [id number] [place] [address]- 0121 11 Jul, 2012 [facility] [place] [facility] [address] [id number] [place] [address]- 5918 10 Sep2011 [facility] [place] [facility] [address] [id number] [place] [address]- 2217 05 Sep2011 [facility] [place] [facility] [address] [id number] [place] [address]- 5680 05 Sep2011 [facility] [place] [facility] [address] [id number] [place] [address]- 5165 28 Jun, 2012 [facility] [place] [facility] [address] [id number] [place] [address]- 1426 20 Jun, 2012 [facility] [place] [facility] [address] [id number] [place] [address]- 2496 18 Jun, 2012 [facility] [place] [facility] [address] [id number] [place] [address]- 4996 17 Jun, 2012 [facility] [place] [facility] [address] [id number] [place] [address]- 3684 16 Jun, 2012 [facility] [place] [facility] [address] [id number] [place] [address]- 4003 Jun, [facility] [place] [facility] [address] [id number] [place] [address]- 7605 Jun, [facility] [place] [facility] [address] [id number] [place] [address]- 0283 Jun, [facility] [place] [facility] [address] [id number] [place] [address]- 8885 May, [facility] [place] [facility] [address] [id number] [place] [address]- 0933 May, [facility] [place] [facility] [address] [id number] [place] [address]- 0629 Apr, [facility] [place] [facility] [address] [id number] [place] [address]- 3975 March, [facility] [place] [facility] [address] [id number] [place] [address]- 5075 March, [facility] [place] [facility] [address] [id number] [place] [address]- 8295 March, [facility] [place] [facility] [address] [id number] [place] [address]- 1420 March, [facility] [place] [facility] [address] [id number] [place] [address]- 4516 Feb, [facility] [place] [facility] [address] [id number] [place] [address]- 1239 Feb, [facility] [place] [facility] [address] [id number] [place] [address]- 5929 Feb, [facility] [place] [facility] [address] [id number] [place] [address]- 4716 Jan, [facility] [place] [facility] [address] [id number] [place] [address]- 2903 Dec, [facility] [place] [facility] [address] [id number] [place] [address]- 0966 Dec, [facility] [place] [facility] [address] [id number] [place] [address]- 1184 Dec, [facility] [place] [facility] [address] [facility] [id number] [place] [address]- 5070 Dec, [facility] [place] [facility] [address] [id number] [place] [address]- 7405 Dec, [facility] [place] [facility] [address] [id number] [place] [address]- 7138 Nov, [facility] [place] [facility] [address] [facility] [id number] [place] [address]- 8153 Oct, [facility] [place] [facility] [address] [facility] [id number] [place] [address]- 1495 Sep, [facility] [place] [facility] [address] [id number] [place] [address]- 6739 Sep, [facility] [place] [facility] [address] [id number] [place] [address]- 7016 Aug, [facility] [place] [facility] [address] [id number] [place] [address]- 5946 Aug, [facility] [place] [facility] [address] [id number] [place] [address]- 8220 14 Nov, 2010 [facility] [place] [facility] [address] [id number] [place] [address]- 5736 Aug, [facility] [address] [facility] [id number] [place] [address]- 3793 March, IMMUNIZATIONS No Known Immunizations SOCIAL HISTORY Never Assessed REASON FOR VISIT Repository Meds PLAN OF CARE VITAL SIGNS MEDICATIONS Medication Instructions Dosage Frequency Start Date End Date Duration Status Test strips test strips Accu-Check Smartview Test Strips Apr, Active Accu-Chek Softclix Lancets - as directed Apr, Active Accu-Chek Sheyla SmartView w/Device as directed Apr, Active RESULTS No Results PROCEDURES No Known [...]
--- OUTSIDE RECORDS SUMMARY | 2018-08-06 00:44 | XMS REPORT ---
Author Author YANI CESAR [facility] Address [address] [place] [address] Care Team Providers Care Trust Administrator Name Role Phone YANI CESAR Unavailable PROBLEMS Type Condition ICD9-CM Code XFS97-DF Code Onset Dates Condition Status SNOMED Code Problem senior care current use of insulin Z79.4 Active 989293884 Problem Hyperlipidemia, unspecified hyperlipidemia type E78.5 Active 92526024 Problem Gastroparesis K31.84 Active 398420789 Problem PVD (peripheral vascular disease) I73.9 Active 334135140 Problem Anticoagulated by anticoagulation treatment Z79.01 Active 275051467 Problem Iron deficiency anemia due to chronic blood loss D50.0 Active 675084718 Problem Type 2 diabetes mellitus with foot ulcer E11.621 Active 1384179895183 Problem Type 2 diabetes mellitus without complications E11.9 Active 821246632 Problem Dysfunctional uterine bleeding N93.8 Active 45540503 Problem Atherosclerosis of [place] arteries of extremities with gangrene, 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 Active [id number] ALLERGIES No Information ENCOUNTERS Encounter Location Date Diagnosis [place] [id number] [place] [address] 58559- 5123 May, Other fluid overload E87.79 and Hyperlipidemia, unspecified hyperlipidemia type E78.5 [facility] [id number] [place] [address] 91545- 7938 Apr, Other fluid overload E87.79 and Hyperlipidemia, unspecified hyperlipidemia type E78.5 [place] [id number] [place] [address] 49964- 9800 Apr, [facility] [place] [id number] [place] [address] 70136- 2210 Apr, [facility] [address] 40223- 9112 Apr, [place] [id number] [place] [address] 92610- 4584 Apr, [place] [id number] [place] [address] 86353- 6268 March, Acute embolism and thrombosis of left femoral vein I82.412 [place] [id number] [place] [address] 88975- 9999 March, PVD (peripheral vascular disease) I73.9 [place] [id number] [place] [address] 53882- 6667 March, Encounter for medication monitoring Z51.81 ; Iron deficiency anemia due to chronic blood loss D50.0 and Anticoagulated by anticoagulation treatment Z79.01 [place] [id number] [place] [address] 30831- 9439 March, Encounter for medication monitoring Z51.81 [place] [id number] [place] [address] 81043- 9473 March, Iron deficiency anemia due to chronic blood loss D50.0 ; Type 2 diabetes mellitus with foot ulcer E11.621 and Dysfunctional uterine bleeding N93.8 [place] [id number] [place] [address] 61483- 2918 Feb, PVD (peripheral vascular disease) I73.9 [place] [id number] [place] [address] 15360- 3386 Jan, [place] [id number] [place] [address] 90299- 8182 Jan, PVD (peripheral vascular disease) I73.9 [place] [id number] [place] [address] 30698- 7603 Dec, PVD (peripheral vascular disease) I73.9 [place] [id number] [place] [address] 09742- 0995 Dec, Pale complexion R23.1 and Severe anemia D64.9 [facility] [address] [address]- 4986 10 Nov, 2017 PVD (peripheral vascular disease) I73.9 [facility] [id number] [place] [address] 46722- 5075 09 Nov, 2017 PVD (peripheral vascular disease) I73.9 [place] [id number] [place] [address] 34548- 0336 07 Oct, 2017 PVD (peripheral vascular disease) I73.9 [place] [id number] [place] [address] 43634- 0514 Sep, PVD (peripheral vascular disease) I73.9 [place] [id number] [place] [address] 98653- 0235 16 Aug, 2017 PVD (peripheral vascular disease) I73.9 [place] [id number] [place] [address] 06630- 1211 18 Jul, 2017 PVD (peripheral vascular disease) I73.9 [place] [id number] [place] [address] 18941- 1103 Jun, Type 2 diabetes mellitus without complications E11.9 ; Hyperlipidemia, unspecified hyperlipidemia type E78.5 and PVD (peripheral vascular disease) I73.9 [place] [address] [address]- 6947 Jun, [place] [id number] [place] [address] 67820- 7101 Jun, Long-term use of high-risk medication Z79.899 [place] [id number] [place] [address] 65132- 8572 May, [place] [id number] [place] [address] 24283- 5034 May, Osteomyelitis, unspecified M86.9 [place] [id number] [place] [address] 31331- 1640 Apr, Atherosclerosis of [place] arteries of extremities with gangrene, 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 [place] [id number] [place] [address] 60227- 1085 March, Osteomyelitis, unspecified M86.9 [place] [id number] [place] [address] 88856- 4236 Feb, Atherosclerosis of [place] arteries of extremities with gangrene, 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 [place] [id number] [place] [address] 31492- 7521 Jan, Atherosclerosis of [place] arteries of extremities with gangrene, 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 [place] [id number] [place] [address] 42592- 9683 Jan, Type 2 diabetes mellitus without complications E11.9 ; senior care current use of insulin Z79.4 ; Hyperlipidemia, unspecified hyperlipidemia type E78.5 ; Long-term use of high-risk medication Z79.899 and PVD (peripheral vascular disease) I73.9 [place] [id number] [place] [address] 08762- 6349 Dec, Cellulitis of right lower limb L03.115 [place] [id number] [place] [address] 12864- 6810 Dec, [place] [id number] [place] [address] 35399- 1246 Nov, Atherosclerosis of [place] arteries of extremities with gangrene, 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 [id number] [place] [address] 68829- 5544 Oct, [facility] [id number] [place] [address] 24245- 9485 Oct, PVD (peripheral vascular disease) I73.9 [facility] [id number] [place] [address] 81351- 0639 Oct, Other fluid overload E87.79 and Acute embolism and thrombosis of left femoral vein I82.412 [facility] [id number] [place] [address] 12414- 3632 Oct, 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 [id number] [place] [address] 82518- 2063 10 Sep, 2016 [facility] [id number] [place] [address] 07029- 9059 Sep, [facility] [address] [place] [address] 83938- 0418 08 Sep, 2016 PVD (peripheral vascular disease) I73.9 [facility] [id number] [place] [address] 32021- 2693 07 Aug, 2016 Type 2 diabetes mellitus with foot ulcer E11.621 and PVD ( peripheral vascular disease) I73.9 [facility] [address] [address]- 1734 30 Jul, 2016 [facility] [id number] [place] [address] 04395- 8511 13 Jul, 2016 [facility] [address] [address]- 8675 12 Jul, 2016 [facility] [id number] [address]- 1012 Jul, [facility] [address] [address]- 3883 Jun, [facility] [address] [address]- 0543 Jun, [facility] [address] [address]- 8345 Jun, [facility] [address] [address]- 3289 May, [facility] [id number] [place] [address] 45973- 2357 May, PVD (peripheral vascular disease) I73.9 ; Type 2 diabetes mellitus without complications E11.9 ; senior care current use of insulin Z79.4 and Hyperlipidemia, unspecified hyperlipidemia type E78.5 [facility] [address] [address]- 6539 May, [facility] [address] [address]- 5563 May, [facility] [address] [address]- 5063 May, [facility] [address] [address]- 8770 Feb, [facility] [address] [address]- 3024 Feb, [facility] [address] [address]- 5884 Jan, [facility] [address] [address]- 8918 Jan, [facility] [id number] [address]- 4380 Dec, [facility] [address] [address]- 5941 Dec, [facility] [place] [facility] [address] [id number] [place] [address]- 9475 Oct, [facility] [place] [facility] [address] [facility] [id number] [place] [address]- 7194 Oct, [facility] [place] [facility] [address] [facility] [id number] [place] [address]- 6211 Sep, [facility] [place] [facility] [address] [id number] [place] [address]- 8124 Sep, [facility] [place] [facility] [address] [facility] [id number] [place] [address]- 7192 Sep, [facility] [place] [facility] [address] [facility] [id number] [place] [address]- 5749 Sep, [facility] [place] [facility] [id number] [address]- 2795 Aug, [facility] [place] [facility] [address] [facility] [id number] [place] [address]- 9617 Aug, [facility] [place] [facility] [address] [facility] [id number] [place] [address]- 5784 Jul, [facility] [place] [facility] [address] [facility] [id number] [place] [address]- 8061 Jul, [facility] [place] [facility] [address] [facility] [id number] [address]- 5865 Apr, [facility] [place] [facility] [address] [facility] [id number] [address]- 8972 Apr, [facility] [place] [facility] [address] [facility] [id number] [place] [address]- 8853 Feb, [facility] [place] [facility] [address] [facility] [id number] [address]- 4453 Feb, [facility] [place] [facility] [address] [facility] [id number] [address]- 8478 Jan, [facility] [place] [facility] [address] [id number] [place] [address]- 9215 Jan, [facility] [place] [facility] [address] [id number] [place] [address]- 7358 Dec, [facility] [place] [facility] [address] [id number] [place] [address]- 4700 Dec, [facility] [place] [facility] [address] [id number] [place] 5135 Oct, [facility] [place] [facility] [address] [id number] [place] [address]- 8112 Oct, [facility] [place] [facility] [address] [id number] [place] [address]- 2115 Sep, [facility] [place] [facility] [address] [id number] [place] [address]- 7664 Sep, [facility] [place] [facility] [address] [id number] [place] [address]- 7411 Sep, [facility] [place] [facility] [address] [id number] [place] [address]- 8368 Sep, [facility] [place] [facility] [address] [id number] [place] [address]- 7974 Sep, [facility] [place] [facility] [address] [id number] [place] [address]- 4106 Sep, [facility] [place] [facility] [address] [id number] [place] [address]- 0966 Aug, [facility] [place] [facility] [address] [id number] [place] [address]- 5270 Jul, [facility] [place] [facility] [address] [id number] [place] [address]- 3226 Jun, [facility] [place] [facility] [address] [id number] [place] [address]- 5543 May, [facility] [place] [facility] [address] [id number] [place] [address]- 7455 Apr, [facility] [place] [facility] [address] [id number] [place] [address]- 5612 Apr, [facility] [place] [facility] [address] [id number] [place] [address]- 8255 Apr, [facility] [place] [facility] [address] [facility] [id number] [place] [address]- 6184 March, [facility] [place] [facility] [address] [id number] [place] [address]- 7168 15 Jan, 2013 [facility] [place] [facility] [address] [id number] [place] [address]- 9528 10 Jan, 2013 [facility] [place] [facility] [address] [facility] [id number] [place] [address]- 1387 08 Jan, 2013 [facility] [place] [facility] [address] [facility] [id number] [place] [address]- 5746 Jan, [facility] [place] [facility] [address] [id number] [place] [address]- 1709 06 Jan, 2013 [facility] [place] [facility] [address] [facility] [id number] [place] [address]- 2058 Dec, [facility] [place] [facility] [address] [facility] [id number] [place] [address]- 6396 18 Dec, 2012 [facility] [place] [facility] [address] [facility] [id number] [place] [address]- 9229 Dec, [facility] [place] [facility] [address] [facility] [id number] [place] [address] 2543 07 Dec, 2012 [facility] [place] [facility] [address] [id number] [place] [address]- 1980 05 Dec, 2012 [facility] [place] [facility] [address] [facility] [id number] [place] [address]- 4113 Nov, [facility] [place] [facility] [address] [facility] [id number] [place] [address]- 2546 Nov, [facility] [place] [facility] [address] [id number] [place] [address]- 0863 Nov, [facility] [address] [id number] [place] [address]- 4983 Nov, [facility] [place] [facility] [address] [id number] [place] [address]- 1217 Nov, [facility] [place] [facility] [address] [id number] [place] [address]- 0609 Nov, [facility] [place] [facility] [address] [id number] [place] [address]- 0505 Nov, [facility] [place] [facility] [address] [id number] [place] [address]- 7853 Nov, [facility] [place] [facility] [address] [id number] [place] [address]- 9217 Nov, [facility] [place] [facility] [address] [id number] [place] [address]- 8932 Sep, [facility] [place] [facility] [address] [id number] [place] [address]- 9042 14 Sep, 2012 [facility] [place] [facility] [address] [id number] [place] [address]- 7872 25 Jul, 2012 [facility] [place] [facility] [address] [id number] [place] [address]- 1775 17 Jul, 2012 [facility] [place] [facility] [address] [id number] [place] [address]- 3871 11 Jul, 2012 [facility] [place] [facility] [address] [id number] [place] [address] 2545 10 Jul, 2012 [facility] [place] [facility] [address] [id number] [place] [address]- 1646 05 Jul, 2012 [facility] [place] [facility] [address] [id number] [place] [address] 2546 05 Jul, 2012 [facility] [place] [facility] [address] [id number] [place] [address]- 1116 28 Jun, 2012 [facility] [place] [facility] [address] [id number] [place] [address]- 1660 20 Jun, 2012 [facility] [place] [facility] [address] [id number] [place] [address]- 9127 18 Jun, 2012 [facility] [place] [facility] [address] [id number] [place] [address]- 1453 17 Jun, 2012 [facility] [place] [facility] [address] [id number] [place] [address]- 3042 16 Jun, 2012 [facility] [place] [facility] [address] [id number] [place] [address]- 8036 14 Jun, 2012 [facility] [place] [facility] [address] [id number] [place] [address]- 6791 14 Jun, 2012 [facility] [place] [facility] [address] [id number] [place] [address]- 6269 Jun, [facility] [place] [facility] [address] [id number] [place] [address]- 6998 30 May, 2012 [facility] [place] [facility] [address] [id number] [place] [address]- 4541 May, [facility] [place] [facility] [address] [id number] [place] [address]- 7089 Apr, [facility] [place] [facility] [address] [id number] [place] [address]- 0618 March, [facility] [place] [facility] [address] [id number] [place] [address]- 0997 March, [facility] [place] [facility] [address] [id number] [place] [address]- 9478 March, [facility] [place] [facility] [address] [id number] [place] [address]- 6192 March, [facility] [place] [facility] [address] [id number] [place] [address]- 1473 Feb, [facility] [place] [facility] [address] [id number] [place] [address]- 7620 13 Feb, 2012 [facility] [address] [id number] [place] [address]- 5604 Feb, [facility] [place] [facility] [address] [id number] [place] [address]- 4696 Jan, [facility] [place] [facility] [address] [id number] [place] [address]- 4776 Dec, [facility] [place] [facility] [address] [id number] [place] [address] 2541 08 Dec, 2011 [facility] [place] [facility] [id number] [place] [address], [place] [address]- 3621 Dec, [facility] [place] [facility] [address] [id number] [place] [address]- 1411 Dec, [facility] [place] [facility] [address] [facility] [id number] [place] [address]- 8327 Dec, [facility] [place] [facility] [address] [id number] [place] [address]- 0677 Nov, [facility] [place] [facility] [id number] [address]- 6799 Oct, [facility] [address] [facility] [id number] [place] [address]- 5404 Sep, [facility] [place] [facility] [address] [id number] [place] [address]- 6542 Sep, [facility] [place] [facility] [address] [id number] [address]- 9629 Aug, [facility] [place] [facility] [address] [id number] [place] 0951 Aug, [facility] [place] [facility] [address] [facility] [id number] [place] [address]- 6934 14 Nov, 2010 [facility] [place] [facility] [address] [facility] [id number] [place] [address]- 1076 Aug, [facility] [address] [facility] [id number] [place] [address]60 March, IMMUNIZATIONS No Known Immunizations SOCIAL HISTORY Never Assessed REASON FOR VISIT PLAN OF CARE VITAL SIGNS MEDICATIONS Unknown [...]
--- OUTSIDE RECORDS SUMMARY | 2018-08-06 00:45 | XMS REPORT ---
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 Name Role Phone YANI CESAR Unavailable PROBLEMS Type Condition ICD9-CM Code WGN76-BE Code Onset Dates Condition Status SNOMED Code Problem correction current use of insulin Z79.4 Active 309652234 Problem Hyperlipidemia, unspecified hyperlipidemia type E78.5 Active 58042907 Problem Gastroparesis K31.84 Active 041408132 Problem PVD (peripheral vascular disease) I73.9 Active 688913799 Problem Anticoagulated by anticoagulation treatment Z79.01 Active 315678407 Problem Iron deficiency anemia due to chronic blood loss D50.0 Active 106337923 Problem Type 2 diabetes mellitus with foot ulcer E11.621 Active 7185694303520 Problem Type 2 diabetes mellitus without complications E11.9 Active 524924623 Problem Dysfunctional uterine bleeding N93.8 Active 25225091 Problem Atherosclerosis of [place] arteries of extremities with gangrene, 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 Active [id number] ALLERGIES No Information ENCOUNTERS Encounter Location Date Diagnosis [place] [id number] [place] [address] 68445- 7024 May, Other fluid overload E87.79 and Hyperlipidemia, unspecified hyperlipidemia type E78.5 [place] [id number] [place] [address] 74869- 1496 Apr, Other fluid overload E87.79 and Hyperlipidemia, unspecified hyperlipidemia type E78.5 [place] [id number] [place] [address] 00838- 8451 Apr, [place] [id number] [place] [address] 96981- 2791 Apr, [place] [address] 6[address]64- 0162 Apr, [place] [id number] [place] [address] 33988- 4130 Apr, [place] [id number] [place] [address] 06955- 2516 March, Acute embolism and thrombosis of left femoral vein I82.412 [place] [id number] [place] [address] 31093- 3542 March, PVD (peripheral vascular disease) I73.9 [place] [id number] [place] [address] 00488- 5161 March, Encounter for medication monitoring Z51.81 ; Iron deficiency anemia due to chronic blood loss D50.0 and Anticoagulated by anticoagulation treatment Z79.01 [place] [id number] [place] [address] 67924- 8415 March, Encounter for medication monitoring Z51.81 [place] [id number] [place] [address] 99981- 8159 March, Iron deficiency anemia due to chronic blood loss D50.0 ; Type 2 diabetes mellitus with foot ulcer E11.621 and Dysfunctional uterine bleeding N93.8 [place] [id number] [place] [address] 26517- 1017 Feb, PVD (peripheral vascular disease) I73.9 [place] [id number] [place] [address] 86984- 6114 Jan, [place] [id number] [place] [address] 97054- 9071 Jan, PVD (peripheral vascular disease) I73.9 [place] [id number] [place] [address] 29565- 7672 Dec, PVD (peripheral vascular disease) I73.9 [place] [id number] [place] [address] 91648- 0635 Dec, Pale complexion R23.1 and Severe anemia D64.9 [facility] [address] [address] 5162 10 Nov, 2017 PVD (peripheral vascular disease) I73.9 [facility] [id number] [place] [address] 86530- 2244 09 Nov, 2017 PVD (peripheral vascular disease) I73.9 [place] [id number] [place] [address] 13313- 5762 07 Oct, 2017 PVD (peripheral vascular disease) I73.9 [place] [id number] [place] [address] 28059- 5571 Sep, PVD (peripheral vascular disease) I73.9 [place] [id number] [place] [address] 04828- 2060 16 Aug, 2017 PVD (peripheral vascular disease) I73.9 [place] [id number] [place] [address] 13484- 2033 18 Jul, 2017 PVD (peripheral vascular disease) I73.9 [place] [id number] [place] [address] 85449- 7216 Jun, Type 2 diabetes mellitus without complications E11.9 ; Hyperlipidemia, unspecified hyperlipidemia type E78.5 and PVD (peripheral vascular disease) I73.9 [place] [address] [address]- 7076 Jun, [place] [id number] [place] [address] 83677- 3776 Jun, Long-term use of high-risk medication Z79.899 [place] [id number] [place] [address] 32268- 3989 May, [place] [id number] [place] [address] 52552- 6255 May, Osteomyelitis, unspecified M86.9 [place] [id number] [place] [address] 34448- 3910 Apr, Atherosclerosis of [place] arteries of extremities with gangrene, 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 [place] [id number] [place] [address] 33361- 0580 March, Osteomyelitis, unspecified M86.9 [place] [id number] [place] [address] 57816- 3065 Feb, Atherosclerosis of [place] arteries of extremities with gangrene, 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 [place] [id number] [place] [address] 21358- 1556 Jan, Atherosclerosis of [place] arteries of extremities with gangrene, 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 [place] [id number] [place] [address] 45042- 7246 Jan, Type 2 diabetes mellitus without complications E11.9 ; correction current use of insulin Z79.4 ; Hyperlipidemia, unspecified hyperlipidemia type E78.5 ; Long-term use of high-risk medication Z79.899 and PVD (peripheral vascular disease) I73.9 [place] [id number] [place] [address] 46336- 3562 Dec, Cellulitis of right lower limb L03.115 [place] [id number] [place] [address] 81222- 8775 Dec, [place] [id number] [place] [address] 11317- 3065 Nov, Atherosclerosis of [place] arteries of extremities with gangrene, 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 [place] [id number] [place] [address] 20134- 2799 Nov, [place] [id number] [place] [address] 33148- 4125 Nov, [place] [id number] [place] [address] 46312- 2960 Oct, Other fluid overload E87.79 and Acute embolism and thrombosis of left femoral vein I82.412 [place] [address] [address]- 5903 Oct, [facility] [id number] [place] [address] 35711- 1098 Oct, [facility] [id number] [place] [address] 12564- 4341 Oct, PVD (peripheral vascular disease) I73.9 [facility] [id number] [place] [address] 32203- 2048 Oct, Other fluid overload E87.79 and Acute embolism and thrombosis of left femoral vein I82.412 [facility] [id number] [place] [address] 69397- 9314 Oct, [facility] [id number] [place] [address] 82577- 4281 Oct, Atherosclerosis of [place] arteries of extremities with gangrene, 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 [facility] [id number] [place] [address] 53490- 1904 10 Sep, 2016 [facility] [id number] [place] [address] 09314- 5944 Sep, [facility] [id number] [place] [address] 57953- 4372 08 Sep, 2016 PVD (peripheral vascular disease) I73.9 [facility] [id number] [place] [address] 86648- 5517 07 Aug, 2016 Type 2 diabetes mellitus with foot ulcer E11.621 and PVD ( peripheral vascular disease) I73.9 [facility] [address] [address]- 8327 30 Jul, 2016 [facility] [id number] [place] [address] 82040- 4039 13 Jul, 2016 [facility] [address] [address]- 0843 12 Jul, 2016 [facility] [id number] [address]- 2928 Jul, [facility] [address] [address]- 7035 Jun, [facility] [address] [address]- 3374 Jun, [facility] [address], [place] [address]- 2242 Jun, [facility] [address] [address]- 1610 May, [facility] [id number] [place] [address] 76420- 1574 May, PVD (peripheral vascular disease) I73.9 ; Type 2 diabetes mellitus without complications E11.9 ; correction current use of insulin Z79.4 and Hyperlipidemia, unspecified hyperlipidemia type E78.5 [facility] [address] [address]- 1918 May, [facility] [address] [address]- 8567 May, [facility] [address], [place] [address]- 3441 May, [facility] [address], [place] [address]- 0373 Feb, [facility] [address] [address]- 5947 Feb, [facility] [address] [address]- 1086 Jan, [facility] [address], [place] [address]- 4852 Jan, [facility] [id number] [address]- 9321 Dec, [facility] [address] [address]- 0788 Dec, [facility] [place] [facility] [address] [id number] [place] [address]- 7048 Oct, [facility] [place] [facility] [address] [facility] [id number] [place] [address]- 9447 Oct, [facility] [place] [facility] [address] [facility] [id number] [place] [address]- 4241 Sep, [facility] [place] [facility] [address] [id number] [place] [address]- 0926 Sep, [facility] [place] [facility] [address] [facility] [id number] [place] [address]- 3686 Sep, [facility] [place] [facility] [address] [facility] [id number] [place] [address]- 7390 Sep, [facility] [place] [facility] [id number] [address]- 1197 Aug, [facility] [place] [facility] [address] [facility] [id number] [place] [address]- 3911 Aug, [facility] [place] [facility] [address] [facility] [id number] [place] [address]- 0935 Jul, [facility] [place] [facility] [address] [facility] [id number] [place] [address]- 0102 Jul, [facility] [place] [facility] [address] [facility] [id number] [address]- 0513 Apr, [facility] [place] [facility] [address] [facility] [id number] [address]- 8651 Apr, [facility] [place] [facility] [address] [facility] [id number] [address]- 6429 Feb, [facility] [place] [facility] [address] [facility] [id number] [address]- 3241 Feb, [facility] [place] [facility] [address] [facility] [id number] [address]- 1502 Jan, [facility] [place] [facility] [address] [id number] [place] [address]- 2605 Jan, [facility] [place] [facility] [address] [id number] [place] [address]- 2832 Dec, [facility] [place] [facility] [address] [id number] [place] [address]- 0184 Dec, [facility] [place] [facility] [address] [id number] [place] 7101 Oct, [facility] [place] [facility] [address] [id number] [place] [address]- 5272 Oct, [facility] [place] [facility] [address] [id number] [place] [address]- 2961 Sep, [facility] [place] [facility] [address] [id number] [place] [address]- 8566 Sep, [facility] [place] [facility] [address] [id number] [place] [address]- 0261 Sep, [facility] [place] [facility] [address] [id number] [place] [address]- 5081 Sep, [facility] [place] [facility] [address] [id number] [place] [address]- 8523 Sep, [facility] [place] [facility] [address] [id number] [place] [address]- 6734 Sep, [facility] [place] [facility] [address] [id number] [place] [address]- 8605 Aug, [facility] [place] [facility] [address] [id number] [place] [address]- 2097 Jul, [facility] [place] [facility] [address] [id number] [place] [address]- 8764 Jun, [facility] [place] [facility] [address] [id number] [place] [address]- 4989 May, [facility] [place] [facility] [address] [id number] [place] [address]- 4363 Apr, [facility] [place] [facility] [address] [id number] [place] [address]- 6585 Apr, [facility] [place] [facility] [address] [id number] [place] [address]- 4170 Apr, [facility] [place] [facility] [address] [facility] [id number] [place] [address]- 6667 March, [facility] [place] [facility] [address] [id number] [place] [address]- 1286 15 Jan, 2013 [facility] [place] [facility] [address] [id number] [place] [address]- 4124 10 Jan, 2013 [facility] [place] [facility] [address] [facility] [id number] [place] [address]- 2152 08 Jan, 2013 [facility] [place] [facility] [address] [facility] [id number] [place] [address]- 7277 Jan, [facility] [place] [facility] [address] [id number] [place] [address]- 6495 06 Jan, 2013 [facility] [place] [facility] [address] [facility] [id number] [place] [address]- 3273 Dec, [facility] [place] [facility] [address] [facility] [id number] [place] [address]- 9496 18 Dec, 2012 [facility] [place] [facility] [address] [facility] [id number] [place] [address]- 2266 Dec, [facility] [place] [facility] [address] [facility] [id number] [place] [address] 2545 07 Dec, 2012 [facility] [place] [facility] [address] [id number] [place] [address]- 2270 05 Dec, 2012 [facility] [place] [facility] [address] [facility] [id number] [place] [address]- 0936 Nov, [facility] [place] [facility] [address] [facility] [id number] [place] [address]- 2546 Nov, [facility] [place] [facility] [address] [id number] [place] [address]- 6392 Nov, [facility] [address] [id number] [place] [address]- 0970 Nov, [facility] [place] [facility] [address] [id number] [place] [address]- 2857 Nov, [facility] [place] [facility] [address] [id number] [place] [address]- 1260 Nov, [facility] [place] [facility] [address] [id number] [place] [address]- 3025 Nov, [facility] [place] [facility] [address] [id number] [place] [address]- 1324 Nov, [facility] [place] [facility] [address] [id number] [place] [address]- 2235 Nov, [facility] [place] [facility] [address] [id number] [place] [address]- 1931 Sep, [facility] [place] [facility] [address] [id number] [place] [address]- 3728 14 Sep, 2012 [facility] [place] [facility] [address] [id number] [place] [address]- 3269 25 Jul, 2012 [facility] [place] [facility] [address] [id number] [place] [address]- 5596 17 Jul, 2012 [facility] [place] [facility] [address] [id number] [place] [address]- 7301 11 Jul, 2012 [facility] [place] [facility] [address] [id number] [place] [address] 2543 10 Jul, 2012 [facility] [place] [facility] [address] [id number] [place] [address]- 6776 05 Jul, 2012 [facility] [place] [facility] [address] [id number] [place] [address] 2546 05 Jul, 2012 [facility] [place] [facility] [address] [id number] [place] [address]- 8088 28 Jun, 2012 [facility] [place] [facility] [address] [id number] [place] [address]- 4396 20 Jun, 2012 [facility] [place] [facility] [address] [id number] [place] [address]- 5615 18 Jun, 2012 [facility] [place] [facility] [address] [id number] [place] [address]- 5485 17 Jun, 2012 [facility] [place] [facility] [address] [id number] [place] [address]- 6494 16 Jun, 2012 [facility] [place] [facility] [address] [id number] [place] [address]- 8184 14 Jun, 2012 [facility] [place] [facility] [address] [id number] [place] [address]- 4003 14 Jun, 2012 [facility] [place] [facility] [address] [id number] [place] [address]- 1218 Jun, [facility] [place] [facility] [address] [id number] [place] [address]- 2526 30 May, 2012 [facility] [place] [facility] [address] [id number] [place] [address]- 2357 May, [facility] [place] [facility] [address] [id number] [place] [address]- 0567 Apr, [facility] [place] [facility] [address] [id number] [place] [address]- 9255 March, [facility] [place] [facility] [address] [id number] [place] [address]- 6472 March, [facility] [place] [facility] [address] [id number] [place] [address]- 8880 March, [facility] [place] [facility] [address] [id number] [place] [address]- 3751 March, [facility] [place] [facility] [address] [id number] [place] [address]- 8487 Feb, [facility] [place] [facility] [address] [id number] [place] [address]- 2903 13 Feb, 2012 [facility] [address] [id number] [place] [address]- 8828 Feb, [facility] [place] [facility] [address] [id number] [place] [address]- 8356 Jan, [facility] [place] [facility] [address] [id number] [place] [address]- 0476 Dec, [facility] [place] [facility] [address] [id number] [place] [address] 2542 08 Dec, 2011 [facility] [place] [facility] [id number] [place] [address], [place] [address]- 2034 Dec, [facility] [place] [facility] [address] [id number] [place] [address]- 2446 Dec, [facility] [place] [facility] [address] [facility] [id number] [place] [address]- 4370 Dec, [facility] [place] [facility] [address] [id number] [place] [address]- 7188 Nov, [facility] [place] [facility] [id number] [place] [address]- 1851 Oct, [facility] [address] [facility] [id number] [place] [address]- 1781 Sep, [facility] [place] [facility] [address] [id number] [place] [address]- 7812 Sep, [facility] [place] [facility] [address] [id number] [address]- 4555 Aug, [facility] [place] [facility] [address] [id number] [place] 8835 Aug, [facility] [place] [facility] [address] [facility] [id number] [place] [address]- 4837 14 Nov, 2010 [facility] [place] [facility] [address] [facility] [id number] [place] [address]- 3335 Aug, [facility] [address] [facility] [id number] [place] [address]- 2946 March, IMMUNIZATIONS No Known Immunizations SOCIAL HISTORY Never Assessed REASON FOR VISIT Hydrocodone 04/27 PLAN OF CARE VITAL SIGNS MEDICATIONS Medication Instructions Dosage Frequency Start Date End Date Duration Status Lasix 40 mg Orally Once a day 1 tablet 24h Active Levemir FlexTouch 100 UNIT/ML Subcutaneous Once a day 45 units at bedtime 24h Oct, Active Lisinopril 2.5 MG Orally Once a day 1 tablet 24h Active Warfarin Sodium 7.5 MG Orally Once a day 1 tablet 24h Active Spironolactone 25 MG Orally 2 times a day 1 tablet 12h Active Carvedilol 3.125 MG Orally Once a day 1 tablet 24h Active Lovastatin 40 MG Orally Once a day 2 tablet with a meal 24h Jun, Active Metformin HCl 500 MG Orally Twice a day 1 tablet with meals 12h Active Aspirin 325 MG Orally Once a day 1 tablet 24h Active Hydrocodone-Acetaminophen 7.5-325 MG Orally 3 times a day 1 tablet 8h March, 28 days Active Humalog KwikPen 100 UNIT/ML Subcutaneous 3 times a day 12 units before meals 8h Oct, Active Lancets 1 by Subcutaneous route 3 times per day March, Active RESULTS No Results PROCEDURES No Known [...]
--- OUTSIDE RECORDS SUMMARY | 2018-08-06 00:45 | XMS REPORT ---
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 Role Phone YANI CESAR Unavailable PROBLEMS Type Condition ICD9-CM Code ZMN35-QR Code Onset Dates Condition Status SNOMED Code Problem senior care current use of insulin Z79.4 Active 586207247 Problem Hyperlipidemia, unspecified hyperlipidemia type E78.5 Active 56170286 Problem Gastroparesis K31.84 Active 721278563 Problem PVD (peripheral vascular disease) I73.9 Active 795715711 Problem Anticoagulated by anticoagulation treatment Z79.01 Active 977340668 Problem Iron deficiency anemia due to chronic blood loss D50.0 Active 697002492 Problem Type 2 diabetes mellitus with foot ulcer E11.621 Active 5873644114788 Problem Type 2 diabetes mellitus without complications E11.9 Active 086421361 Problem Dysfunctional uterine bleeding N93.8 Active 31534114 Problem Atherosclerosis of [place] arteries of extremities with gangrene, 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 Active [id number] ALLERGIES No Information ENCOUNTERS Encounter Location Date Diagnosis [facility] [place] [id number] [place] [address] 04527- 5882 May, Other fluid overload E87.79 and Hyperlipidemia, unspecified hyperlipidemia type E78.5 [facility] [id number] [place] [address] 45336- 6468 Apr, Other fluid overload E87.79 and Hyperlipidemia, unspecified hyperlipidemia type E78.5 [place] [id number] [place] [address] 51115- 7252 Apr, [facility] [place] [id number] [place] [address] 29166- 0573 Apr, [facility] [place] [address] 62192- 5992 Apr, [facility] [place] [id number] [place] [address] 45071- 2307 Apr, [facility] [place] [id number] [place] [address] 06189- 1251 March, Acute embolism and thrombosis of left femoral vein I82.412 [facility] [id number] [place] [address] 81186- 7986 March, PVD (peripheral vascular disease) I73.9 [facility] [id number] [place] [address] 89926- 8893 March, Encounter for medication monitoring Z51.81 ; Iron deficiency anemia due to chronic blood loss D50.0 and Anticoagulated by anticoagulation treatment Z79.01 [facility] [place] [id number] [place] [address] 61949- 5942 March, Encounter for medication monitoring Z51.81 [facility] [id number] [place] [address] 22313- 8253 March, Iron deficiency anemia due to chronic blood loss D50.0 ; Type 2 diabetes mellitus with foot ulcer E11.621 and Dysfunctional uterine bleeding N93.8 [facility] [id number] [place] [address] 51581- 8577 Feb, PVD (peripheral vascular disease) I73.9 [facility] [place] [id number] [place] [address] 27468- 2322 Jan, [facility] [id number] [place] [address] 11955- 6609 Jan, PVD (peripheral vascular disease) I73.9 [facility] [place] [id number] [place] [address] 59265- 1696 Dec, PVD (peripheral vascular disease) I73.9 [facility] [place] [id number] [place] [address] 54790- 4413 Dec, Pale complexion R23.1 and Severe anemia D64.9 [facility] [address] [address] 7339 10 Nov, 2017 PVD (peripheral vascular disease) I73.9 [facility] [id number] [place] [address] 62802- 6976 09 Nov, 2017 PVD (peripheral vascular disease) I73.9 [place] [id number] [place] [address] 43282- 2097 07 Oct, 2017 PVD (peripheral vascular disease) I73.9 [facility] [id number] [place] [address] 25012- 2379 Sep, PVD (peripheral vascular disease) I73.9 [facility] [id number] [place] [address] 19828- 2994 16 Aug, 2017 PVD (peripheral vascular disease) I73.9 [facility] [place] [id number] [place] [address] 87722- 9455 18 Jul, 2017 PVD (peripheral vascular disease) I73.9 [facility] [place] [id number] [place] [address] 40916- 8046 Jun, Type 2 diabetes mellitus without complications E11.9 ; Hyperlipidemia, unspecified hyperlipidemia type E78.5 and PVD (peripheral vascular disease) I73.9 [facility] [place] [address] [address]- 2933 Jun, [facility] [id number] [place] [address] 87956- 0638 Jun, Long-term use of high-risk medication Z79.899 [place] [id number] [place] [address] 06568- 5149 May, [place] [id number] [place] [address] 16869- 4530 May, Osteomyelitis, unspecified M86.9 [place] [id number] [place] [address] 85795- 0518 Apr, Atherosclerosis of [place] arteries of extremities with gangrene, 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 [place] [id number] [place] [address] 31596- 7490 March, Osteomyelitis, unspecified M86.9 [facility] [id number] [place] [address] 48141- 1516 Feb, Atherosclerosis of [place] arteries of extremities with gangrene, 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 [place] [id number] [place] [address] 00076- 6441 Jan, Atherosclerosis of [place] arteries of extremities with gangrene, 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 [facility] [place] [id number] [place] [address] 04726- 4953 Jan, Type 2 diabetes mellitus without complications E11.9 ; senior care current use of insulin Z79.4 ; Hyperlipidemia, unspecified hyperlipidemia type E78.5 ; Long-term use of high-risk medication Z79.899 and PVD (peripheral vascular disease) I73.9 [facility] [id number] [place] [address] 05316- 5997 Dec, Cellulitis of right lower limb L03.115 [place] [id number] [place] [address] 71257- 0616 Dec, [place] [id number] [place] [address] 71524- 5974 Nov, Atherosclerosis of [place] arteries of extremities with gangrene, 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 [place] [id number] [place] [address] 43409- 4079 Nov, [place] [id number] [place] [address] 90058- 6784 Nov, [place] [id number] [place] [address] 88383- 9431 Oct, Other fluid overload E87.79 and Acute embolism and thrombosis of left femoral vein I82.412 [place] [address] [address]- 0024 Oct, [facility] [address] [place] [address] 26217- 6675 Oct, [facility] [id number] [place] [address] 65896- 8132 Oct, PVD (peripheral vascular disease) I73.9 [facility] [id number] [place] [address] 60879- 7627 Oct, Other fluid overload E87.79 and Acute embolism and thrombosis of left femoral vein I82.412 [facility] [id number] [place] [address] 54694- 5639 Oct, [facility] [address] [place] [address] 30676- 5438 Oct, Atherosclerosis of [place] arteries of extremities with gangrene, 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 [facility] [address] [place] [address] 47350- 6144 10 Sep, 2016 [facility] [address] [place] [address] 33754- 3200 Sep, [facility] [address] [place] [address] 29398- 8448 08 Sep, 2016 PVD (peripheral vascular disease) I73.9 [facility] [address] [place] [address] 49591- 6201 07 Aug, 2016 Type 2 diabetes mellitus with foot ulcer E11.621 and PVD ( peripheral vascular disease) I73.9 [facility] [address] [address]- 3384 30 Jul, 2016 [facility] [address] [place] [address] 37759- 0726 13 Jul, 2016 [facility] [address] [address]- 1889 12 Jul, 2016 [facility] [id number] [address]- 6867 Jul, [facility] [address] [address]- 4110 Jun, [facility] [address] [address]- 5091 Jun, [facility] [address] [address]- 3105 Jun, [facility] [address] [address]- 1363 May, [facility] [address] [place] [address] 16474- 9375 May, PVD (peripheral vascular disease) I73.9 ; Type 2 diabetes mellitus without complications E11.9 ; senior care current use of insulin Z79.4 and Hyperlipidemia, unspecified hyperlipidemia type E78.5 [facility] [address] [address]- 2483 May, [facility] [address] [address]- 9195 May, [facility] [address] [address]- 3229 May, [facility] [address] [address]- 7331 Feb, [facility] [address] [address]- 7332 Feb, [facility] [address] [address]- 6030 Jan, [facility] [address] [address]- 2713 Jan, [facility] [id number] [address]- 9400 Dec, [facility] [address] [address]- 3603 Dec, [facility] [place] [facility] [address] [id number] [place] [address]- 9570 Oct, [facility] [place] [facility] [address] [facility] [id number] [place] [address]- 3019 Oct, [facility] [place] [facility] [address] [facility] [id number] [place] [address]- 2347 Sep, [facility] [place] [facility] [address] [id number] [place] [address]- 2227 Sep, [facility] [place] [facility] [address] [facility] [id number] [place] [address]- 8914 Sep, [facility] [place] [facility] [address] [facility] [id number] [place] [address]- 6779 Sep, [facility] [place] [facility] [id number] [address]- 8197 Aug, [facility] [place] [facility] [address] [facility] [id number] [place] [address]- 3675 Aug, [facility] [place] [facility] [address] [facility] [id number] [place] [address]- 8102 Jul, [facility] [place] [facility] [address] [facility] [id number] [place] [address]- 2684 Jul, [facility] [place] [facility] [address] [facility] [id number] [address]- 6558 Apr, [facility] [place] [facility] [address] [facility] [id number] [address]- 6235 Apr, [facility] [place] [facility] [address] [facility] [id number] [address]- 0578 Feb, [facility] [place] [facility] [address] [facility] [id number] [address]- 5885 Feb, [facility] [place] [facility] [address] [facility] [id number] [address]- 3523 Jan, [facility] [place] [facility] [address] [id number] [place] [address]- 3733 Jan, [facility] [place] [facility] [address] [id number] [place] [address]- 4521 Dec, [facility] [place] [facility] [address] [id number] [place] [address]- 3929 Dec, [facility] [place] [facility] [address] [id number] [place] 1741 Oct, [facility] [place] [facility] [address] [id number] [place] [address]- 5542 Oct, [facility] [place] [facility] [address] [id number] [place] [address]- 8619 Sep, [facility] [place] [facility] [address] [id number] [place] [address]- 2645 Sep, [facility] [place] [facility] [address] [id number] [place] [address]- 7338 Sep, [facility] [place] [facility] [address] [id number] [place] [address]- 1830 Sep, [facility] [place] [facility] [address] [id number] [place] [address]- 5061 Sep, [facility] [place] [facility] [address] [id number] [place] [address]- 5336 Sep, [facility] [place] [facility] [address] [id number] [place] [address]- 1568 Aug, [facility] [place] [facility] [address] [id number] [place] [address]- 1513 Jul, [facility] [place] [facility] [address] [id number] [place] [address]- 9188 Jun, [facility] [place] [facility] [address] [id number] [place] [address]- 7172 May, [facility] [place] [facility] [address] [id number] [place] [address]- 7341 Apr, [facility] [place] [facility] [address] [id number] [place] [address]- 3284 Apr, [facility] [place] [facility] [address] [id number] [place] [address]- 1175 Apr, [facility] [place] [facility] [address] [facility] [id number] [place] [address]- 6568 March, [facility] [place] [facility] [address] [id number] [place] [address]- 1703 15 Jan, 2013 [facility] [place] [facility] [address] [id number] [place] [address]- 8946 10 Jan, 2013 [facility] [place] [facility] [address] [facility] [id number] [place] [address]- 9500 08 Jan, 2013 [facility] [place] [facility] [address] [facility] [id number] [place] [address]- 2379 Jan, [facility] [place] [facility] [address] [id number] [place] [address]- 0551 06 Jan, 2013 [facility] [place] [facility] [address] [facility] [id number] [place] [address]- 6705 Dec, [facility] [place] [facility] [address] [facility] [id number] [place] [address]- 3657 18 Dec, 2012 [facility] [place] [facility] [address] [facility] [id number] [place] [address]- 7653 Dec, [facility] [place] [facility] [address] [facility] [id number] [place] [address] 2543 07 Dec, 2012 [facility] [place] [facility] [address] [id number] [place] [address]- 7525 05 Dec, 2012 [facility] [place] [facility] [address] [facility] [id number] [place] [address]- 5487 Nov, [facility] [place] [facility] [address] [facility] [id number] [place] [address]- 2546 Nov, [facility] [place] [facility] [address] [id number] [place] [address]- 8369 Nov, [facility] [address] [id number] [place] [address]- 7227 Nov, [facility] [place] [facility] [address] [id number] [place] [address]- 6480 Nov, [facility] [place] [facility] [address] [id number] [place] [address]- 9018 Nov, [facility] [place] [facility] [address] [id number] [place] [address]- 6575 Nov, [facility] [place] [facility] [address] [id number] [place] [address]- 6672 Nov, [facility] [place] [facility] [address] [id number] [place] [address]- 4305 Nov, [facility] [place] [facility] [address] [id number] [place] [address]- 1518 Sep, [facility] [place] [facility] [address] [id number] [place] [address]- 8363 14 Sep, 2012 [facility] [place] [facility] [address] [id number] [place] [address]- 3795 25 Jul, 2012 [facility] [place] [facility] [address] [id number] [place] [address]- 8799 17 Jul, 2012 [facility] [place] [facility] [address] [id number] [place] [address]- 5223 11 Jul, 2012 [facility] [place] [facility] [address] [id number] [place] [address] 2544 10 Jul, 2012 [facility] [place] [facility] [address] [id number] [place] [address]- 3196 05 Jul, 2012 [facility] [place] [facility] [address] [id number] [place] [address] 2546 05 Jul, 2012 [facility] [place] [facility] [address] [id number] [place] [address]- 8181 28 Jun, 2012 [facility] [place] [facility] [address] [id number] [place] [address]- 0649 20 Jun, 2012 [facility] [place] [facility] [address] [id number] [place] [address]- 8000 18 Jun, 2012 [facility] [place] [facility] [address] [id number] [place] [address]- 2089 17 Jun, 2012 [facility] [place] [facility] [address] [id number] [place] [address]- 3992 16 Jun, 2012 [facility] [place] [facility] [address] [id number] [place] [address]- 2837 14 Jun, 2012 [facility] [place] [facility] [address] [id number] [place] [address]- 7747 14 Jun, 2012 [facility] [place] [facility] [address] [id number] [place] [address]- 5326 Jun, [facility] [place] [facility] [address] [id number] [place] [address]- 4154 30 May, 2012 [facility] [place] [facility] [address] [id number] [place] [address]- 0134 May, [facility] [place] [facility] [address] [id number] [place] [address]- 5987 Apr, [facility] [place] [facility] [address] [id number] [place] [address]- 1039 March, [facility] [place] [facility] [address] [id number] [place] [address]- 2900 March, [facility] [place] [facility] [address] [id number] [place] [address]- 3632 March, [facility] [place] [facility] [address] [id number] [place] [address]- 0442 March, [facility] [place] [facility] [address] [id number] [place] [address]- 0441 Feb, [facility] [place] [facility] [address] [id number] [place] [address]- 8472 13 Feb, 2012 [facility] [address] [id number] [place] [address]- 1594 Feb, [facility] [place] [facility] [address] [id number] [place] [address]- 7776 Jan, [facility] [place] [facility] [address] [id number] [place] [address]- 5826 Dec, [facility] [place] [facility] [address] [id number] [place] [address] 2540 08 Dec, 2011 [facility] [place] [facility] [address] [id number] [place] [address], [place] [address]- 0858 Dec, [facility] [place] [facility] [address] [id number] [place] [address]- 4876 Dec, [facility] [place] [facility] [address] [facility] [id number] [place] [address]- 3574 Dec, [facility] [place] [facility] [address] [id number] [place] [address]- 0716 Nov, [facility] [place] [facility] [id number] [place] [address]- 0785 Oct, [facility] [address] [facility] [id number] [place] [address]- 5905 Sep, [facility] [place] [facility] [address] [id number] [place] [address]- 8090 Sep, [facility] [place] [facility] [address] [id number] [address]- 7125 Aug, [facility] [place] [facility] [address] [id number] [place] 6174 Aug, [facility] [place] [facility] [address] [facility] [id number] [place] [address]- 1606 14 Nov, 2010 [facility] [place] [facility] [address] [facility] [id number] [place] [address]- 3350 Aug, [facility] [address] [facility] [id number] [place] [address]496 March, IMMUNIZATIONS No Known Immunizations SOCIAL HISTORY Never Assessed REASON FOR VISIT Future orders and med changes PLAN OF CARE VITAL SIGNS MEDICATIONS Medication Instructions Dosage Frequency Start Date End Date Duration Status Warfarin Sodium 7.5 MG Orally Once a day 2 tablets on Tuesday and . 1 tablet all other days 24h Active RESULTS No Results PROCEDURES No [...]
--- OUTSIDE RECORDS SUMMARY | 2018-08-06 00:46 | XMS REPORT ---
Author Author YANI CESAR [facility] Address [address] [place] [address] Care Team Providers Care Home Health Rn Name Role Phone YANI CESAR Unavailable PROBLEMS Type Condition ICD9-CM Code AWZ73-FY Code Onset Dates Condition Status SNOMED Code Problem long-term current use of insulin Z79.4 Active 981340712 Problem Hyperlipidemia, unspecified hyperlipidemia type E78.5 Active 08161248 Problem Gastroparesis K31.84 Active 737582067 Problem PVD (peripheral vascular disease) I73.9 Active 616269677 Problem Anticoagulated by anticoagulation treatment Z79.01 Active 812243834 Problem Iron deficiency anemia due to chronic blood loss D50.0 Active 168150173 Problem Type 2 diabetes mellitus with foot ulcer E11.621 Active 4362562903060 Problem Type 2 diabetes mellitus without complications E11.9 Active 619080763 Problem Dysfunctional uterine bleeding N93.8 Active 71216439 Problem Atherosclerosis of [place] arteries of extremities with gangrene, 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 Active [id number] ALLERGIES Substance Reaction Event Type Date Status Penicillin V Potassium hives Drug Allergy March, Active ENCOUNTERS Encounter Location Date Diagnosis [place] [id number] [place] [address]00- 7239 May, Other fluid overload E87.79 and Hyperlipidemia, unspecified hyperlipidemia type E78.5 [facility] [id number] [address] Apr, Other fluid overload E87.79 and Hyperlipidemia, unspecified hyperlipidemia type E78.5 [facility] [address] [address] 47[address] Apr, [facility] [address] [address] Apr, [facility] [address] [address] 14 Apr, 2018 [place] [address] [address] Apr, [place] [address] [address] March, Acute embolism and thrombosis of left femoral vein I82.412 [place] [address] [place] [id number] [place] [address] 77843- 0787 March, PVD (peripheral vascular disease) I73.9 [place] [id number] [place] [address] 09613- 9097 March, Encounter for medication monitoring Z51.81 ; Iron deficiency anemia due to chronic blood loss D50.0 and Anticoagulated by anticoagulation treatment Z79.01 [place] [address] [place] [id number] [place] [address] 76300- 2542 March, Encounter for medication monitoring Z51.81 [place] [address] [address] March, Iron deficiency anemia due to chronic blood loss D50.0 ; Type 2 diabetes mellitus with foot ulcer E11.621 and Dysfunctional uterine bleeding N93.8 [place] [address] [address] Feb, PVD (peripheral vascular disease) I73.9 [place] [address] [address] 8893 Jan, [place] [address] [address] 4862 Jan, PVD (peripheral vascular disease) I73.9 [place] [address] [address] 1898 Dec, PVD (peripheral vascular disease) I73.9 [place] [address] [address] 6821 Dec, Pale complexion R23.1 and Severe anemia D64.9 [facility] [id number] [place] [address] 67533- 4558 Nov, PVD (peripheral vascular disease) I73.9 [facility] [id number] [place] [address] 30194- 0573 Nov, PVD (peripheral vascular disease) I73.9 [place] [address] [place] [id number] [place] [address] 27973- 9556 Oct, PVD (peripheral vascular disease) I73.9 [place] [address] [place] [id number] [place] [address] 71552- 0829 Sep, PVD (peripheral vascular disease) I73.9 [place] [address] [place] [address] [id number] [place] [address] 75651- 0261 Aug, PVD (peripheral vascular disease) I73.9 [place] [address] [place] [address] [id number] [place] [address] 20880- 8986 Jul, PVD (peripheral vascular disease) I73.9 [place] [address] [place] [address] [id number] [place] [address] 47136- 1768 Jun, Type 2 diabetes mellitus without complications E11.9 ; Hyperlipidemia, unspecified hyperlipidemia type E78.5 and PVD (peripheral vascular disease) I73.9 [place] [id number] [place] [address] 47022- 4154 Jun, [place] [address] [place] [id number] [place] [address] 12055- 6656 Jun, Long-term use of high-risk medication Z79.899 [place] [address] [place] [id number] [place] [address] 03650- 9170 May, [place] [id number] [place] [address] 27027- 2686 May, Osteomyelitis, unspecified M86.9 [place] [address] [place] [id number] [place] [address] 98981- 0066 Apr, Atherosclerosis of [place] arteries of extremities with gangrene, 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 [place] [address] [place] [id number] [place] [address] 89231- 1320 March, Osteomyelitis, unspecified M86.9 [place] [address] [place] [id number] [place] [address] 17178- 3779 Feb, Atherosclerosis of [place] arteries of extremities with gangrene, 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 [place] [address] [place] [id number] [place] [address] 00443- 3145 Jan, Atherosclerosis of [place] arteries of extremities with gangrene, 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 [place] [address] [place] [id number] [place] [address] 73284- 1659 Jan, Type 2 diabetes mellitus without complications E11.9 ; long-term current use of insulin Z79.4 ; Hyperlipidemia, unspecified hyperlipidemia type E78.5 ; Long-term use of high-risk medication Z79.899 and PVD (peripheral vascular disease) I73.9 [place] [address] [place] [id number] [place] [address] 03679- 4780 Dec, Cellulitis of right lower limb L03.115 [place] [address] [place] [id number] [place] [address] 84862- 9788 Dec, [place] [address] [place] [id number] [place] [address] 69941- 4014 Nov, Atherosclerosis of [place] arteries of extremities with gangrene, 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 [place] [address] [place] [id number] [place] [address] 54123- 7479 Nov, [place] [address] [place] [id number] [place] [address] 76867- 6569 Nov, [place] [id number] [place] [address] 95621- 1906 Oct, Other fluid overload E87.79 and Acute embolism and thrombosis of left femoral vein I82.412 [facility] [address] [address]- 8166 Oct, [facility] [address] [id number] [place] [address] 98248- 8206 Oct, [facility] [id number] [address] 2546 Oct, PVD (peripheral vascular disease) I73.9 [facility] [address] [place] [id number] [place] [address] 34372 2546 Oct, Other fluid overload E87.79 and Acute embolism and thrombosis of left femoral vein I82.412 [facility] [address] [place] [id number] [place] [address] 77497- 5476 Oct, [facility] [address] [place] [id number] [place] [address] 61593- 1500 Oct, Atherosclerosis of [place] arteries of extremities with gangrene, 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 [facility] [address] [address]- 9805 Sep, [facility] [address] [place] [id number] [place] [address] 17328- 8235 Sep, [facility] [address] [address]- 7768 08 Sep, 2016 PVD (peripheral vascular disease) I73.9 [facility] [address] [address]- 9790 07 Aug, 2016 Type 2 diabetes mellitus with foot ulcer E11.621 and PVD ( peripheral vascular disease) I73.9 [facility] [address] [address] 2546 30 Jul, 2016 [facility] [address] [address]- 2546 Jul, [facility] [address] [place] [id number] [place] [address] 36923- 9922 Jul, [facility] [address] [facility] [id number] [place] [address]- 2209 Jul, [facility] [address] [facility] [id number] [place] [address]- 6467 Jun, [facility] [address] 6902 Jun, [facility] [address] [place] [address]- 8939 Jun, [facility] [address] [place] [address]- 9586 May, [facility] [address] [place] [address]- 9085 May, PVD (peripheral vascular disease) I73.9 ; Type 2 diabetes mellitus without complications E11.9 ; long-term current use of insulin Z79.4 and Hyperlipidemia, unspecified hyperlipidemia type E78.5 [facility] [address] [place] [address]- 3839 May, [facility] [address] [place] [address]- 4029 May, [facility] [address] [place] [address]- 9020 May, [facility] [address] [place] [address]- 8635 Feb, [facility] [address] [facility] [id number] [place] [address]- 9848 Feb, [facility] [address] [place] [address]- 2695 Jan, [facility] [address] [place] [address]- 2197 Jan, [facility] [id number] [address]- 1264 Dec, [facility] [place] [facility] [address] [id number] [place] [address]- 8724 Dec, [facility] [place] [facility] [address] [id number] [place] [address]- 1574 Oct, [facility] [place] [facility] [address] [id number] [place] [address]- 2007 Oct, [facility] [place] [facility] [address] [id number] [place] [address]- 5698 Sep, [facility] [place] [facility] [address] [id number] [place] [address]- 3453 Sep, [facility] [place] [facility] [address] [id number] [place] [address]- 1137 Sep, [facility] [place] [facility] [address] [id number] [place] [address]- 6718 Sep, [facility] [place] [facility] [address] [id number] [place] [address]- 2179 Aug, [facility] [place] [facility] [address] [id number] [place] [address]- 3139 Aug, [facility] [place] [facility] [address] [id number] [place] [address]- 9926 Jul, [facility] [place] [facility] [address] [id number] [place] [address]- 9480 Jul, [facility] [place] [facility] [address] [id number] [place] [address]- 6687 Apr, [facility] [place] [facility] [address] [id number] [place] [address]- 3342 Apr, [facility] [place] [facility] [address] [id number] [place] [address]- 5508 Feb, [facility] [place] [facility] [address] [id number] [place] [address]- 7584 Feb, [facility] [place] [facility] [address] [id number] [place] [address]- 2546 Jan, [facility] [place] [facility] [address] [id number] [place] [address]- 9287 Jan, [facility] [place] [facility] [address] [id number] [place] [address]- 0959 Dec, [facility] [place] [facility] [address] [id number] [place] [address]- 7814 Dec, [facility] [place] [facility] [address] [id number] [place] [address]- 6328 Oct, [facility] [place] [facility] [address] [id number] [place] 5523 Oct, [facility] [place] [facility] [address] [id number] [place] [address]- 3056 Sep, [facility] [place] [facility] [address] [id number] [place] [address]- 5945 Sep, [facility] [place] [facility] [address] [id number] [place] [address]- 5267 Sep, [facility] [place] [facility] [address] [id number] [place] [address]- 7879 Sep, [facility] [place] [facility] [address] [facility] [id number] [place] [address]- 4727 Sep, [facility] [place] [facility] [address] [id number] [address]- 9761 Sep, [facility] [place] [facility] [address] [id number] [address]- 8035 Aug, [facility] [place] [facility] [address] [id number] [address]- 6003 Jul, [facility] [place] [facility] [address] [id number] [address]- 1508 Jun, [facility] [place] [facility] [address] [id number] [place] [address]- 7934 May, [facility] [place] [facility] [address] [id number] [place] [address]- 7085 25 Apr, 2013 [facility] [address] [id number] [place] [address]- 3158 Apr, [facility] [place] [facility] [address] [id number] [place] [address]- 6850 13 Apr, 2013 [facility] [place] [facility] [address] [id number] [place] [address]- 2479 March, [facility] [place] [facility] [address] [id number] [place] [address]- 4412 15 Jan, 2013 [facility] [place] [facility] [address] [id number] [place] [address]- 1853 10 Jan, 2013 [facility] [place] [facility] [address] [facility] [id number] [place] [address]- 3634 08 Jan, 2013 [facility] [place] [facility] [address] [id number] [place] [address]- 6697 07 Jan, 2013 [facility] [address] [id number] [place] [address]- 8344 06 Jan, 2013 [facility] [place] [facility] [address] [id number] [place] [address]- 3959 19 Dec, 2012 [facility] [place] [facility] [address] [facility] [id number] [place] [address]- 1571 18 Dec, 2012 [facility] [place] [facility] [address] [id number] [place] [address]- 1751 11 Dec, 2012 [facility] [place] [facility] [address] [id number] [place] [address]- 4654 07 Dec, 2012 [facility] [place] [facility] [address] [id number] [place] [address]- 6937 05 Dec, 2012 [facility] [place] [facility] [address] [id number] [place] [address]- 2446 31 Nov, 2012 [facility] [place] [facility] [address] [id number] [place] [address]- 8246 Nov, [facility] [address] [id number] [place] [address]- 4989 Nov, [facility] [place] [facility] [address] [id number] [place] [address]- 2890 Nov, [facility] [place] [facility] [address] [id number] [place] [address]- 5774 Nov, [facility] [place] [facility] [address] [id number] [place] [address]- 5454 Nov, [facility] [place] [facility] [address] [id number] [place] [address]- 5270 Nov, [facility] [place] [facility] [address] [id number] [place] [address]- 7115 Nov, [facility] [place] [facility] [address] [id number] [place] [address]- 5130 Nov, [facility] [place] [facility] [address] [id number] [place] [address]- 6108 Sep, [facility] [place] [facility] [address] [id number] [place] [address]- 9841 14 Sep, 2012 [facility] [place] [facility] [address] [id number] [place] [address]- 0570 25 Jul, 2012 [facility] [place] [facility] [address] [id number] [place] [address]- 6689 17 Jul, 2012 [facility] [place] [facility] [address] [id number] [place] [address]- 8223 11 Sep2011 [facility] [place] [facility] [address] [id number] [place] [address]- 2839 10 Jul, 2012 [facility] [place] [facility] [address] [id number] [place] [address]- 9536 05 Jul, 2012 [facility] [place] [facility] [address] [id number] [place] [address]- 4538 05 Jul, 2012 [facility] [place] [facility] [address] [id number] [place] [address]- 1960 28 Jun, 2012 [facility] [address] [id number] [place] [address]- 9540 20 Jun, 2012 [facility] [place] [facility] [address] [id number] [place] [address]- 0836 18 Jun, 2012 [facility] [address] [id number] [place] [address]- 9449 17 Jun, 2012 [facility] [address] [id number] [place] [address]- 7661 16 Jun, 2012 [facility] [address] [id number] [place] [address]- 4879 14 Jun, 2012 [facility] [address] [id number] [place] [address]- 3182 Jun, [facility] [address] [id number] [place] [address]- 7460 Jun, [facility] [address] [id number] [place] [address]- 3750 30 May, 2012 [facility] [address] [id number] [place] [address]- 2394 May, [facility] [address] [id number] [place] [address]- 0984 Apr, [facility] [place] [facility] [address] [id number] [place] [address]- 7262 March, [facility] [address] [id number] [place] [address]- 0177 March, [facility] [place] [facility] [address] [id number] [place] [address]- 3925 March, [facility] [place] [facility] [address] [id number] [place] [address]- 1592 March, [facility] [place] [facility] [address] [id number] [place] [address]- 3543 Feb, [facility] [address] [id number] [place] [address]- 2375 Feb, [facility] [place] [facility] [address] [id number] [place] [address]- 3626 Feb, [facility] [place] [facility] [address] [id number] [place] [address]- 6326 Jan, [facility] [place] [facility] [address] [id number] [place] [address]- 6736 Dec, [facility] [place] [facility] [address] [id number] [place] [address]- 0045 Dec, [facility] [place] [facility] [address] [id number] [place] [address]- 3436 Dec, [facility] [place] [facility] [address] [facility] [id number] [place] [address]- 3316 Dec, [facility] [place] [facility] [address] [id number] [place] [address]- 8450 Dec, [facility] [place] [facility] [address] [id number] [place] [address]- 0481 Nov, [facility] [place] [facility] [address] [facility] [id number] [place] [address]- 9516 Oct, [facility] [place] [facility] [address] [id number] [address]- 1135 Sep, [facility] [place] [facility] [address] [id number], [place] [address]- 8643 Sep, [facility] [place] [facility] [address] [id number] [place] [address]- 6045 Aug, [facility] [place] [facility] [address] [id number], [place] [address]- 7996 Aug, [facility] [place] [facility] [address] [facility] [id number] [place] [address]- 5314 14 Nov, 2010 [facility] [place] [facility] [address] [facility] [id number] [place] [address]- 6705 Aug, [facility] [address] [facility] [id number] [place] [address]- 0338 March, IMMUNIZATIONS No Known Immunizations SOCIAL HISTORY Never Assessed REASON FOR VISIT f/u pain management, PT was also seen at for a blood transfusion. PT has SOB and leg swelling-Rikki POOLE, _update contract, PDM PLAN OF CARE Activity Details Follow Up 10 days Reason: VITAL SIGNS Height 71 in 2018-04-07 Weight 183.5 lbs 2018-04-07 Temperature 98.1 degrees Fahrenheit 2018-04-07 Heart Rate 97 bpm 2018-04-07 Respiratory Rate 20 2018-04-07 Oximetry on room air:97 % 2018-04-07 BMI 25.59 kg/m2 2018-04-07 Blood pressure systolic 122 mmHg 2018-04-07 Blood pressure diastolic 68 mmHg 2018-04-07 MEDICATIONS Medication Instructions Dosage Frequency Start Date End Date Duration Status Metformin HCl 500 MG Orally Twice a day 1 tablet with meals 12h Active Aspirin 325 MG Orally Once a day 1 tablet 24h Active Lasix 40 mg Orally Once a day 1 tablet 24h Not-Taking Lisinopril 5 mg Orally Once a day 1 tablet 24h Not-Taking Levemir FlexTouch 100 UNIT/ML Subcutaneous Once a day 45 units at bedtime 24h Oct, Active Humalog KwikPen 100 UNIT/ML Subcutaneous 3 times a day 12 units before meals 8h Oct, Active Lancets 1 by Subcutaneous route 3 times per day March, Active Hydrocodone-Acetaminophen 7.5-325 MG Orally 3 times a day 1 tablet 8h Feb, 28 days Active Lovastatin 40 mg Orally Once a day 1 tablet with a meal 24h Jun, 30 day(s) Not-Taking RESULTS Name Result Date Reference Range A1C (IN HOUSE) 2018-04-07 A1C IN HOUSE 9.4 4.3 - 5.6 % Previous A1c 10.2 Lot 843 Exp date 12/2019 CBC 2018-04-07 WHITE BLOOD CELL COUNT 8.6 3.8-10.8 RED BLOOD CELL COUNT 3.77 3.80-5.10 HEMOGLOBIN 7.4 11.7-15.5 HEMATOCRIT 27.8 35.0-45.0 MCV 73.7 80.0-100.0 MCH 19.6 27.0-33.0 MCHC 26.6 32.0-36.0 RDW 29.9 11.0-15.0 PLATELET COUNT 454 140-400 MPV 10.7 7.5-12.5 ABSOLUTE NEUTROPHILS 6364 [id number] ABSOLUTE LYMPHOCYTES 4747 [id number] ABSOLUTE MONOCYTES 611 200-950 ABSOLUTE EOSINOPHILS 292 15-500 ABSOLUTE BASOPHILS 60 0-200 NEUTROPHILS 74 LYMPHOCYTES 14.8 MONOCYTES 7.1 EOSINOPHILS 3.4 BASOPHILS 0.7 COMMENT(S) CBC MORPHOLOGY 2018-04-07 CBC MORPHOLOGY NORMAL PLATELET ESTIMATION 2018-04-07 PROCEDURES Procedure Date Ordered Result Body Site COMPLETE CBC W/AUTO DIFF WBC April 07, 2018 GLYCATED HEMOGLOBIN TEST April 07, 2018 VENIPUNCT, ROUTINE* April 07, 2018 INSTRUCTIONS MEDICATIONS ADMINISTERED No Known Medications MEDICAL [...]
--- OUTSIDE RECORDS SUMMARY | 2018-08-06 00:46 | XMS REPORT ---
Author Author YANI CESAR [facility] Address [address] [place] [address] Care Team Providers Care Appliances Sample Maker Name Role Phone YANI CESAR Unavailable PROBLEMS Type Condition ICD9-CM Code UBM18-SB Code Onset Dates Condition Status SNOMED Code Problem penitentiary current use of insulin Z79.4 Active 060701168 Problem Hyperlipidemia, unspecified hyperlipidemia type E78.5 Active 01266293 Problem Gastroparesis K31.84 Active 134534190 Problem PVD (peripheral vascular disease) I73.9 Active 181376429 Problem Anticoagulated by anticoagulation treatment Z79.01 Active 742508313 Problem Iron deficiency anemia due to chronic blood loss D50.0 Active 146808862 Problem Type 2 diabetes mellitus with foot ulcer E11.621 Active 3196781252159 Problem Type 2 diabetes mellitus without complications E11.9 Active 602166398 Problem Dysfunctional uterine bleeding N93.8 Active 20764553 Problem Atherosclerosis of [place] arteries of extremities with gangrene, 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 Active [id number] ALLERGIES Substance Reaction Event Type Date Status Penicillin V Potassium hives Drug Allergy March, Active ENCOUNTERS Encounter Location Date Diagnosis [place] [id number] [place] [address]3669- 1168 May, Other fluid overload E87.79 and Hyperlipidemia, unspecified hyperlipidemia type E78.5 [facility] [facility] [id number] [address] Apr, Other fluid overload E87.79 and Hyperlipidemia, unspecified hyperlipidemia type E78.5 [facility] [facility] [address], [place] [address] 0911 Apr, [facility] [facility] [address], [place] [address] 0984 Apr, [facility] [facility] [address], [place] [address] 4[address] 14 Apr, 2018 [place] [address] [address] 299[address] Apr, [place] [address], [place] [address] 4[address] March, Acute embolism and thrombosis of left femoral vein I82.412 [place] [id number] [place] [address] 50332- 8118 March, PVD (peripheral vascular disease) I73.9 [place] [id number] [place] [address] 43263- 5872 March, Encounter for medication monitoring Z51.81 ; Iron deficiency anemia due to chronic blood loss D50.0 and Anticoagulated by anticoagulation treatment Z79.01 [place] [id number] [place] [address] 54561- 9050 March, Encounter for medication monitoring Z51.81 [place] [address], [place] [address] 5027 March, Iron deficiency anemia due to chronic blood loss D50.0 ; Type 2 diabetes mellitus with foot ulcer E11.621 and Dysfunctional uterine bleeding N93.8 [place] [address], [place] [address] 8111 Feb, PVD (peripheral vascular disease) I73.9 [place] [address], [place] [address] 9387 Jan, [place] [address] [address] 4878 Jan, PVD (peripheral vascular disease) I73.9 [place] [address], [place] [address]- 0149 Dec, PVD (peripheral vascular disease) I73.9 [place] [address], [place] [address]- 4570 Dec, Pale complexion R23.1 and Severe anemia D64.9 [facility] [facility] [id number] [place] [address] 45013- 2030 Nov, PVD (peripheral vascular disease) I73.9 [facility] [facility] [id number] [place] [address] 74224- 5739 Nov, PVD (peripheral vascular disease) I73.9 [place] [id number] [place] [address] 83708- 3298 Oct, PVD (peripheral vascular disease) I73.9 [place] [id number] [place] [address] 27438- 4358 Sep, PVD (peripheral vascular disease) I73.9 [place] [id number] [place] [address] 34023- 4807 Aug, PVD (peripheral vascular disease) I73.9 [place] [id number] [place] [address] 54058- 2781 Jul, PVD (peripheral vascular disease) I73.9 [place] [id number] [place] [address] 85764- 4211 Jun, Type 2 diabetes mellitus without complications E11.9 ; Hyperlipidemia, unspecified hyperlipidemia type E78.5 and PVD (peripheral vascular disease) I73.9 [place] [id number] [place] [address] 14288- 4509 Jun, [place] [id number] [place] [address] 22600- 5585 Jun, Long-term use of high-risk medication Z79.899 [place] [id number] [place] [address] 51822- 8667 May, [place] [id number] [place] [address] 06893- 6659 May, Osteomyelitis, unspecified M86.9 [place] [id number] [place] [address] 78112- 9915 Apr, Atherosclerosis of [place] arteries of extremities with gangrene, 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 [place] [id number] [place] [address] 37305- 2197 March, Osteomyelitis, unspecified M86.9 [place] [id number] [place] [address] 15896- 1100 Feb, Atherosclerosis of [place] arteries of extremities with gangrene, 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 [place] [id number] [place] [address] 21732- 0639 Jan, Atherosclerosis of [place] arteries of extremities with gangrene, 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 [place] [id number] [place] [address] 32025- 8738 Jan, Type 2 diabetes mellitus without complications E11.9 ; penitentiary current use of insulin Z79.4 ; Hyperlipidemia, unspecified hyperlipidemia type E78.5 ; Long-term use of high-risk medication Z79.899 and PVD (peripheral vascular disease) I73.9 [place] [id number] [place] [address] 49067- 8636 Dec, Cellulitis of right lower limb L03.115 [place] [id number] [place] [address] 89211- 9924 Dec, [place] [id number] [place] [address] 68900- 2900 Nov, Atherosclerosis of [place] arteries of extremities with gangrene, 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 [place] [id number] [place] [address] 08711- 7160 Nov, [place] [id number] [place] [address] 28742- 1451 Nov, [place] [id number] [place] [address] 72442- 8160 Oct, Other fluid overload E87.79 and Acute embolism and thrombosis of left femoral vein I82.412 [facility] [facility] [address], [place] [address]- 1336 Oct, [facility] [facility] [id number] [place] [address] 63480- 1306 Oct, [facility] [facility] [id number] [address] 2546 Oct, PVD (peripheral vascular disease) I73.9 [facility] [facility] [id number] [place] [address] 76422 2546 Oct, Other fluid overload E87.79 and Acute embolism and thrombosis of left femoral vein I82.412 [facility] [facility] [id number] [place] [address] 34929- 1016 Oct, [facility] [facility] [id number] [place] [address] 78990- 0128 Oct, Atherosclerosis of [place] arteries of extremities with gangrene, 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 [facility] [facility] [address], [place] [address]- 1483 Sep, [facility] [facility] [id number] [place] [address] 36245- 7031 Sep, [facility] [facility] [address], [place] [address]- 4886 08 Sep, 2016 PVD (peripheral vascular disease) I73.9 [facility] [facility] [address], [place] [address]- 3269 07 Aug, 2016 Type 2 diabetes mellitus with foot ulcer E11.621 and PVD ( peripheral vascular disease) I73.9 [facility] [facility] [address], [place] [address] 2546 30 Jul, 2016 [facility] [facility] [address], [place] [address]- 2546 Jul, [facility] [facility] [id number] [place] [address] 10287- 8639 Jul, [facility] [facility] [address] [facility] [id number] [place] [address]- 9459 Jul, [facility] [facility] [address] [facility] [id number] [place] [address]- 6471 Jun, [facility] [facility] [address] 2568 Jun, [facility] [facility] [address] [place] [address]- 2343 Jun, [facility] [facility] [address] [place] [address]- 9527 May, [facility] [facility] [address] [place] [address]- 3374 May, PVD (peripheral vascular disease) I73.9 ; Type 2 diabetes mellitus without complications E11.9 ; penitentiary current use of insulin Z79.4 and Hyperlipidemia, unspecified hyperlipidemia type E78.5 [facility] [facility] [address] [place] [address]- 3840 May, [facility] [facility] [address] [place] [address]- 0305 May, [facility] [facility] [address] [place] [address]- 0414 May, [facility] [facility] [address] [place] [address]- 7247 Feb, [facility] [facility] [address] [facility] [id number] [place] [address]- 2863 Feb, [facility] [facility] [address] [place] [address]- 2459 Jan, [facility] [facility] [id number] [place] [address]- 3964 Jan, [facility] [facility] [id number], [place] [address]- 5074 Dec, [facility] [place] [facility] [address] [id number] [place] [address]- 2312 Dec, [facility] [place] [facility] [address] [id number] [place] [address]- 4200 Oct, [facility] [place] [facility] [address] [id number] [place] [address]- 8327 Oct, [facility] [place] [facility] [address] [id number] [place] [address]- 3173 Sep, [facility] [place] [facility] [address] [id number] [place] [address]- 4027 Sep, [facility] [place] [facility] [address] [id number] [place] [address]- 3621 Sep, [facility] [place] [facility] [address] [id number] [place] [address]- 1063 Sep, [facility] [place] [facility] [address] [id number] [place] [address]- 8212 Aug, [facility] [place] [facility] [address] [id number] [place] [address]- 9279 Aug, [facility] [place] [facility] [address] [id number] [place] [address]- 7184 Jul, [facility] [place] [facility] [address] [id number] [place] [address]- 1320 Jul, [facility] [place] [facility] [address] [id number] [place] [address]- 2464 Apr, [facility] [place] [facility] [address] [id number] [place] [address]- 2452 Apr, [facility] [place] [facility] [address] [id number] [place] [address]- 9648 Feb, [facility] [place] [facility] [address] [id number] [place] [address]- 1930 Feb, [facility] [place] [facility] [address] [id number] [place] [address]- 2546 Jan, [facility] [place] [facility] [address] [id number] [place] [address]- 6748 Jan, [facility] [place] [facility] [address] [id number] [place] [address]- 9009 Dec, [facility] [place] [facility] [address] [id number] [place] [address]- 1951 Dec, [facility] [place] [facility] [address] [id number] [place] [address]- 9790 Oct, [facility] [place] [facility] [address] [id number] [place] 8629 Oct, [facility] [place] [facility] [address] [id number] [place] [address]- 7827 Sep, [facility] [place] [facility] [address] [id number] [place] [address]- 4855 Sep, [facility] [place] [facility] [address] [id number] [place] [address]- 9578 Sep, [facility] [place] [facility] [address] [id number] [place] [address]- 4977 Sep, [facility] [place] [facility] [address] [facility] [id number] [place] [address]- 5683 Sep, [facility] [place] [facility] [address] [id number], [place] [address]- 0327 Sep, [facility] [place] [facility] [address] [id number], [place] [address]- 9125 Aug, [facility] [place] [facility] [address] [id number], [place] [address]- 6868 Jul, [facility] [place] [facility] [address] [id number], [place] [address]- 9406 Jun, [facility] [place] [facility] [address] [id number] [place] [address]- 1296 May, [facility] [place] [facility] [address] [id number] [place] [address]- 5688 25 Apr, 2013 [facility] [address] [id number] [place] [address]- 3534 Apr, [facility] [place] [facility] [address] [id number] [place] [address]- 9172 13 Apr, 2013 [facility] [place] [facility] [address] [id number] [place] [address]- 4127 March, [facility] [place] [facility] [address] [id number] [place] [address]- 2904 15 Jan, 2013 [facility] [place] [facility] [address] [id number] [place] [address]- 8496 10 Jan, 2013 [facility] [place] [facility] [address] [facility] [id number] [place] [address]- 7559 08 Jan, 2013 [facility] [place] [facility] [address] [id number] [place] [address]- 0523 07 Jan, 2013 [facility] [address] [id number] [place] [address]- 8296 06 Jan, 2013 [facility] [place] [facility] [address] [id number] [place] [address]- 0230 19 Dec, 2012 [facility] [place] [facility] [address] [facility] [id number] [place] [address]- 2441 18 Dec, 2012 [facility] [place] [facility] [address] [id number] [place] [address]- 9115 11 Dec, 2012 [facility] [place] [facility] [address] [id number] [place] [address]- 5506 07 Dec, 2012 [facility] [place] [facility] [address] [id number] [place] [address]- 5937 05 Dec, 2012 [facility] [place] [facility] [address] [id number] [place] [address]- 7693 31 Nov, 2012 [facility] [place] [facility] [address] [id number] [place] [address]- 3262 Nov, [facility] [address] [id number] [place] [address]- 5830 Nov, [facility] [place] [facility] [address] [id number] [place] [address]- 3732 Nov, [facility] [place] [facility] [address] [id number] [place] [address]- 7072 Nov, [facility] [place] [facility] [address] [id number] [place] [address]- 7895 Nov, [facility] [place] [facility] [address] [id number] [place] [address]- 4855 Nov, [facility] [place] [facility] [address] [id number] [place] [address]- 1024 Nov, [facility] [place] [facility] [address] [id number] [place] [address]- 3473 Nov, [facility] [place] [facility] [address] [id number] [place] [address]- 9203 Sep, [facility] [place] [facility] [address] [id number] [place] [address]- 0721 14 Sep, 2012 [facility] [place] [facility] [address] [id number] [place] [address]- 3207 25 Jul, 2012 [facility] [place] [facility] [address] [id number] [place] [address]- 6046 17 Jul, 2012 [facility] [place] [facility] [address] [id number] [place] [address]- 8093 11 Sep2011 [facility] [place] [facility] [address] [id number] [place] [address]- 2900 10 Jul, 2012 [facility] [place] [facility] [address] [id number] [place] [address]- 4326 05 Jul, 2012 [facility] [place] [facility] [address] [id number] [place] [address]- 2575 05 Jul, 2012 [facility] [place] [facility] [address] [id number] [place] [address]- 9982 28 Jun, 2012 [facility] [address] [id number] [place] [address]- 3976 20 Jun, 2012 [facility] [place] [facility] [address] [id number] [place] [address]- 2896 18 Jun, 2012 [facility] [address] [id number] [place] [address]- 5570 17 Jun, 2012 [facility] [address] [id number] [place] [address]- 6380 16 Jun, 2012 [facility] [address] [id number] [place] [address]- 9384 14 Jun, 2012 [facility] [address] [id number] [place] [address]- 3107 Jun, [facility] [address] [id number] [place] [address]- 0569 Jun, [facility] [address] [id number] [place] [address]- 5118 30 May, 2012 [facility] [address] [id number] [place] [address]- 4074 May, [facility] [address] [id number] [place] [address]- 6692 Apr, [facility] [place] [facility] [address] [id number] [place] [address]- 7225 March, [facility] [address] [id number] [place] [address]- 4718 March, [facility] [place] [facility] [address] [id number] [place] [address]- 7416 March, [facility] [place] [facility] [address] [id number] [place] [address]- 4412 March, [facility] [place] [facility] [address] [id number] [place] [address]- 4227 Feb, [facility] [address] [id number] [place] [address]- 2828 Feb, [facility] [place] [facility] [address] [id number] [place] [address]- 1226 Feb, [facility] [place] [facility] [address] [id number] [place] [address]- 5576 Jan, [facility] [place] [facility] [address] [id number] [place] [address]- 7486 Dec, [facility] [place] [facility] [address] [id number] [place] [address]- 2204 Dec, [facility] [place] [facility] [address] [id number] [place] [address]- 9956 Dec, [facility] [place] [facility] [address] [facility] [id number] [place] [address]- 9306 Dec, [facility] [place] [facility] [address] [id number] [place] [address]- 8036 Dec, [facility] [place] [facility] [address] [id number] [place] [address]- 0875 Nov, [facility] [place] [facility] [address] [facility] [id number] [place] [address]- 2166 Oct, [facility] [place] [facility] [address] [id number], [place] [address]- 2954 Sep, [facility] [place] [facility] [address] [id number], [place] [address]- 4065 Sep, [facility] [place] [facility] [address] [id number] [place] [address]- 6542 Aug, [facility] [place] [facility] [address] [id number], [place] [address]- 9626 Aug, [facility] [place] [facility] [address] [facility] [id number] [place] [address]- 6859 14 Nov, 2010 [facility] [place] [facility] [address] [facility] [id number] [place] [address]- 3298 Aug, [facility] [address] [facility] [id number] [place] [address]- 7081 March, IMMUNIZATIONS No Known Immunizations SOCIAL HISTORY Never Assessed REASON FOR VISIT Pain management (chronic) WB-MA, PDM. Pain med prepared in phone note to send when PDM completed. , 04/09/18 PT went to [facility] for blood clots on the heart PLAN OF CARE Activity Details Follow Up prn Reason: Future/Pending Procedure ROUTINE VENIPUNCTURE VITAL SIGNS Height 71 in 2018-04-21 Weight 194 lbs 2018-04-21 Temperature 98.4 degrees Fahrenheit 2018-04-21 Heart Rate 92 bpm 2018-04-21 Respiratory Rate 20 2018-04-21 BMI 27.05 kg/m2 2018-04-21 Blood pressure systolic 122 mmHg 2018-04-21 Blood pressure diastolic 64 mmHg 2018-04-21 MEDICATIONS Medication Instructions Dosage Frequency Start Date End Date Duration Status Aspirin 325 MG Orally Once a day 1 tablet 24h Active Levemir FlexTouch 100 UNIT/ML Subcutaneous Once a day 45 units at bedtime 24h Oct, Active Metformin HCl 500 MG Orally Twice a day 1 tablet with meals 12h Active Humalog KwikPen 100 UNIT/ML Subcutaneous 3 times a day 12 units before meals 8h Oct, Active Lancets 1 by Subcutaneous route 3 times per day March, Active Lisinopril 5 mg Orally Once a day 1 tablet 24h Not-Taking Lasix 40 mg Orally Once a day 1 tablet 24h Not-Taking Lovastatin 40 mg Orally Once a day 1 tablet with a meal 24h Jun, 30 day(s) Not-Taking Hydrocodone-Acetaminophen 7.5-325 MG Orally 3 times a day 1 tablet 8h Feb, 28 days Active RESULTS No Results PROCEDURES Procedure Date Ordered Result Body Site COMPLETE CBC W/AUTO DIFF WBC April 21, 2018 VENIPUNCT, ROUTINE* April 21, 2018 PROTHROMBIN TIME April 21, 2018 09 PANEL (PROFILE 1) April 21, 2018 INSTRUCTIONS MEDICATIONS ADMINISTERED No Known Medications [...]
--- OUTSIDE RECORDS SUMMARY | 2018-08-06 00:46 | XMS REPORT ---
Author Author YANI CESAR [facility] Address [address] [place] [address] Care Team Providers Care Radioisotope Technologist Name Role Phone YANI CESAR Unavailable PROBLEMS Type Condition ICD9-CM Code LOQ83-LG Code Onset Dates Condition Status SNOMED Code Problem [facility] current use of insulin Z79.4 Active 466178340 Problem Hyperlipidemia, unspecified hyperlipidemia type E78.5 Active 84601519 Problem Gastroparesis K31.84 Active 241701161 Problem PVD (peripheral vascular disease) I73.9 Active 761448951 Problem Anticoagulated by anticoagulation treatment Z79.01 Active 852618803 Problem Iron deficiency anemia due to chronic blood loss D50.0 Active 031382466 Problem Type 2 diabetes mellitus with foot ulcer E11.621 Active 4181741161544 Problem Type 2 diabetes mellitus without complications E11.9 Active 132061567 Problem Dysfunctional uterine bleeding N93.8 Active 81812690 Problem Atherosclerosis of [place] arteries of extremities with gangrene, 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 Active [id number] ALLERGIES No Information ENCOUNTERS Encounter Location Date Diagnosis [facility] [id number] [place] [address] 96597- 2388 May, Other fluid overload E87.79 and Hyperlipidemia, unspecified hyperlipidemia type E78.5 [facility] [id number] [place] [address] 75820- 5673 Apr, Other fluid overload E87.79 and Hyperlipidemia, unspecified hyperlipidemia type E78.5 [facility] [id number] [place] [address] 54802- 6301 Apr, [place] [facility] [id number] [place] [address] 97328- 2024 Apr, [place] [facility] [address] 61166- 4285 Apr, [place] [facility] [id number] [place] [address] 81518- 0948 Apr, [facility] [id number] [place] [address] 00209- 3515 March, Acute embolism and thrombosis of left femoral vein I82.412 [place] [id number] [place] [address] 08692- 1917 March, PVD (peripheral vascular disease) I73.9 [place] [id number] [place] [address] 65771- 7501 March, Encounter for medication monitoring Z51.81 ; Iron deficiency anemia due to chronic blood loss D50.0 and Anticoagulated by anticoagulation treatment Z79.01 [place] [id number] [place] [address] 18203- 4223 March, Encounter for medication monitoring Z51.81 [facility] [id number] [place] [address] 37676- 6112 March, Iron deficiency anemia due to chronic blood loss D50.0 ; Type 2 diabetes mellitus with foot ulcer E11.621 and Dysfunctional uterine bleeding N93.8 [place] [id number] [place] [address] 88629- 3394 Feb, PVD (peripheral vascular disease) I73.9 [place] [facility] [id number] [place] [address] 10899- 3260 Jan, [place] [facility] [id number] [place] [address] 74723- 3216 Jan, PVD (peripheral vascular disease) I73.9 [facility] [id number] [place] [address] 24520- 0291 Dec, PVD (peripheral vascular disease) I73.9 [facility] [id number] [place] [address] 14754- 0495 Dec, Pale complexion R23.1 and Severe anemia D64.9 [facility] [address] [address]- 7142 10 Nov, 2017 PVD (peripheral vascular disease) I73.9 [facility] [id number] [place] [address] 00094- 4422 09 Nov, 2017 PVD (peripheral vascular disease) I73.9 [facility] [id number] [place] [address] 97188- 6581 07 Oct, 2017 PVD (peripheral vascular disease) I73.9 [place] [id number] [place] [address] 88581- 8254 Sep, PVD (peripheral vascular disease) I73.9 [facility] [id number] [place] [address] 62371- 0815 16 Aug, 2017 PVD (peripheral vascular disease) I73.9 [facility] [id number] [place] [address] 19876- 0883 18 Jul, 2017 PVD (peripheral vascular disease) I73.9 [facility] [id number] [place] [address] 74301- 8174 Jun, Type 2 diabetes mellitus without complications E11.9 ; Hyperlipidemia, unspecified hyperlipidemia type E78.5 and PVD (peripheral vascular disease) I73.9 [place] [address] [address]- 3079 Jun, [facility] [facility] [id number] [place] [address] 27765- 4900 Jun, Long-term use of high-risk medication Z79.899 [place] [id number] [place] [address] 81748- 9779 May, [place] [id number] [place] [address] 42760- 2721 May, Osteomyelitis, unspecified M86.9 [facility] [id number] [place] [address] 36816- 2374 Apr, Atherosclerosis of [place] arteries of extremities with gangrene, 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 [facility] [id number] [place] [address] 28817- 0570 March, Osteomyelitis, unspecified M86.9 [facility] [id number] [place] [address] 43662- 6531 Feb, Atherosclerosis of [place] arteries of extremities with gangrene, 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 [facility] [facility] [id number] [place] [address] 96019- 3122 Jan, Atherosclerosis of [place] arteries of extremities with gangrene, 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 [place] [facility] [id number] [place] [address] 90681- 2606 Jan, Type 2 diabetes mellitus without complications E11.9 ; [facility] current use of insulin Z79.4 ; Hyperlipidemia, unspecified hyperlipidemia type E78.5 ; Long-term use of high-risk medication Z79.899 and PVD (peripheral vascular disease) I73.9 [place] [id number] [place] [address] 42901- 9197 Dec, Cellulitis of right lower limb L03.115 [place] [id number] [place] [address] 75995- 7728 Dec, [place] [id number] [place] [address] 75296- 9175 Nov, Atherosclerosis of [place] arteries of extremities with gangrene, 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 [place] [id number] [place] [address] 69925- 2604 Nov, [place] [id number] [place] [address] 84562- 8906 Nov, [place] [id number] [place] [address] 66329- 9720 Oct, Other fluid overload E87.79 and Acute embolism and thrombosis of left femoral vein I82.412 [place] [address] [address]- 2762 Oct, [facility] [address] [place] [address] 58961- 7395 Oct, [facility] [id number] [place] [address] 27559- 2987 Oct, PVD (peripheral vascular disease) I73.9 [facility] [id number] [place] [address] 77512- 5677 Oct, Other fluid overload E87.79 and Acute embolism and thrombosis of left femoral vein I82.412 [facility] [id number] [place] [address] 78648- 5562 Oct, [facility] [address] [place] [address] 27505- 4002 Oct, Atherosclerosis of [place] arteries of extremities with gangrene, 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 [facility] [address] [place] [address] 82826- 4109 10 Sep, 2016 [facility] [address] [place] [address] 95346- 4116 Sep, [facility] [address] [place] [address] 37176- 5260 08 Sep, 2016 PVD (peripheral vascular disease) I73.9 [facility] [address] [place] [address] 63944- 3865 07 Aug, 2016 Type 2 diabetes mellitus with foot ulcer E11.621 and PVD ( peripheral vascular disease) I73.9 [facility] [address] [address]- 2781 30 Jul, 2016 [facility] [address] [place] [address] 56238- 6657 13 Jul, 2016 [facility] [address] [address]- 4097 12 Jul, 2016 [facility] [id number] [address]- 9410 Jul, [facility] [address] [address]- 2503 Jun, [facility] [address] [address]- 6738 Jun, [facility] [address] [address]- 1224 Jun, [facility] [address] [address]- 3139 May, [facility] [address] [place] [address] 66429- 0297 May, PVD (peripheral vascular disease) I73.9 ; Type 2 diabetes mellitus without complications E11.9 ; [facility] current use of insulin Z79.4 and Hyperlipidemia, unspecified hyperlipidemia type E78.5 [facility] [address] [address]- 4849 May, [facility] [address] [address]- 0443 May, [facility] [address] [address]- 0063 May, [facility] [address] [address]- 3243 Feb, [facility] [address] [address]- 1715 Feb, [facility] [address], [place] [address]- 3159 Jan, [facility] [address] [address]- 6742 Jan, [facility] [id number] [address]- 5628 Dec, [facility] [address], [place] [address]- 1243 Dec, [facility] [place] [facility] [address] [id number] [place] [address]- 4614 Oct, [facility] [place] [facility] [address] [facility] [id number] [place] [address]- 6289 Oct, [facility] [place] [facility] [address] [facility] [id number] [place] [address]- 6266 Sep, [facility] [place] [facility] [address] [id number] [place] [address]- 6330 Sep, [facility] [place] [facility] [address] [facility] [id number] [place] [address]- 3249 Sep, [facility] [place] [facility] [address] [facility] [id number] [place] [address]- 0080 Sep, [facility] [place] [facility] [id number] [address]- 2673 Aug, [facility] [place] [facility] [address] [facility] [id number] [place] [address]- 9093 Aug, [facility] [place] [facility] [address] [facility] [id number] [place] [address]- 3601 Jul, [facility] [place] [facility] [address] [facility] [id number] [place] [address]- 6511 Jul, [facility] [place] [facility] [address] [facility] [id number] [address]- 5250 Apr, [facility] [place] [facility] [address] [facility] [id number], [place] [address]- 4231 Apr, [facility] [place] [facility] [address] [facility] [id number] [address]- 4407 Feb, [facility] [place] [facility] [address] [facility] [id number], [place] [address]- 0107 Feb, [facility] [place] [facility] [address] [facility] [id number] [address]- 6553 Jan, [facility] [place] [facility] [address] [id number] [place] [address]- 0272 Jan, [facility] [place] [facility] [address] [id number] [place] [address]- 3835 Dec, [facility] [place] [facility] [address] [id number] [place] [address]- 9664 Dec, [facility] [place] [facility] [address] [id number] [place] 9568 Oct, [facility] [place] [facility] [address] [id number] [place] [address]- 9270 Oct, [facility] [place] [facility] [address] [id number] [place] [address]- 9614 Sep, [facility] [place] [facility] [address] [id number] [place] [address]- 2839 Sep, [facility] [place] [facility] [address] [id number] [place] [address]- 9440 Sep, [facility] [place] [facility] [address] [id number] [place] [address]- 4884 Sep, [facility] [place] [facility] [address] [id number] [place] [address]- 1826 Sep, [facility] [place] [facility] [address] [id number] [place] [address]- 9834 Sep, [facility] [place] [facility] [address] [id number] [place] [address]- 1375 Aug, [facility] [place] [facility] [address] [id number] [place] [address]- 0629 Jul, [facility] [place] [facility] [address] [id number] [place] [address]- 5652 Jun, [facility] [place] [facility] [address] [id number] [place] [address]- 0412 May, [facility] [place] [facility] [address] [id number] [place] [address]- 0655 Apr, [facility] [place] [facility] [address] [id number] [place] [address]- 0374 Apr, [facility] [place] [facility] [address] [id number] [place] [address]- 3662 Apr, [facility] [place] [facility] [address] [facility] [id number] [place] [address]- 7010 March, [facility] [place] [facility] [address] [id number] [place] [address]- 1111 15 Jan, 2013 [facility] [place] [facility] [address] [id number] [place] [address]- 9689 10 Jan, 2013 [facility] [place] [facility] [address] [facility] [id number] [place] [address]- 2149 08 Jan, 2013 [facility] [place] [facility] [address] [facility] [id number] [place] [address]- 4050 Jan, [facility] [place] [facility] [address] [id number] [place] [address]- 3883 06 Jan, 2013 [facility] [place] [facility] [address] [facility] [id number] [place] [address]- 3761 Dec, [facility] [place] [facility] [address] [facility] [id number] [place] [address]- 8526 18 Dec, 2012 [facility] [place] [facility] [address] [facility] [id number] [place] [address]- 2316 Dec, [facility] [place] [facility] [address] [facility] [id number] [place] [address] 2549 07 Dec, 2012 [facility] [place] [facility] [address] [id number] [place] [address]- 6974 05 Dec, 2012 [facility] [place] [facility] [address] [facility] [id number] [place] [address]- 8253 Nov, [facility] [place] [facility] [address] [facility] [id number] [place] [address]- 2546 Nov, [facility] [place] [facility] [address] [id number] [place] [address]- 4911 Nov, [facility] [place] [facility] [address] [id number] [place] [address]- 2488 Nov, [facility] [place] [facility] [address] [id number] [place] [address]- 2294 Nov, [facility] [place] [facility] [address] [id number] [place] [address]- 1031 Nov, [facility] [place] [facility] [address] [id number] [place] [address]- 4858 Nov, [facility] [place] [facility] [address] [id number] [place] [address]- 8586 Nov, [facility] [place] [facility] [address] [id number] [place] [address]- 9247 Nov, [facility] [place] [facility] [address] [id number] [place] [address]- 5273 Sep, [facility] [place] [facility] [address] [id number] [place] [address]- 6130 14 Sep, 2012 [facility] [place] [facility] [address] [id number] [place] [address]- 0413 25 Jul, 2012 [facility] [place] [facility] [address] [id number] [place] [address]- 7616 17 Jul, 2012 [facility] [place] [facility] [address] [id number] [place] [address]- 2457 11 Jul, 2012 [facility] [place] [facility] [address] [id number] [place] [address] 2547 10 Jul, 2012 [facility] [place] [facility] [address] [id number] [place] [address]- 9826 05 Jul, 2012 [facility] [place] [facility] [address] [id number] [place] [address] 2546 05 Jul, 2012 [facility] [place] [facility] [address] [id number] [place] [address]- 4203 28 Jun, 2012 [facility] [place] [facility] [address] [id number] [place] [address]- 3845 20 Jun, 2012 [facility] [place] [facility] [address] [id number] [place] [address]- 4380 18 Jun, 2012 [facility] [place] [facility] [address] [id number] [place] [address]- 4084 17 Jun, 2012 [facility] [place] [facility] [address] [id number] [place] [address]- 8321 16 Jun, 2012 [facility] [place] [facility] [address] [id number] [place] [address]- 0953 14 Jun, 2012 [facility] [place] [facility] [address] [id number] [place] [address]- 7427 14 Jun, 2012 [facility] [place] [facility] [address] [id number] [place] [address]- 6197 Jun, [facility] [place] [facility] [address] [id number] [place] [address]- 3220 30 May, 2012 [facility] [place] [facility] [address] [id number] [place] [address]- 7726 May, [facility] [place] [facility] [address] [id number] [place] [address]- 0177 Apr, [facility] [place] [facility] [address] [id number] [place] [address]- 0572 March, [facility] [place] [facility] [address] [id number] [place] [address]- 4377 March, [facility] [place] [facility] [address] [id number] [place] [address]- 4438 March, [facility] [place] [facility] [address] [id number] [place] [address]- 0030 March, [facility] [place] [facility] [address] [id number] [place] [address]- 5648 Feb, [facility] [place] [facility] [address] [id number] [place] [address]- 3329 13 Feb, 2012 [facility] [place] [facility] [address] [id number] [place] [address]- 1970 Feb, [facility] [place] [facility] [address] [id number] [place] [address]- 9156 Jan, [facility] [place] [facility] [address] [id number] [place] [address]- 4746 Dec, [facility] [place] [facility] [address] [id number] [place] [address] 2542 08 Dec, 2011 [facility] [place] [facility] [address] [id number] [place] [address], [place] [address]- 7398 Dec, [facility] [place] [facility] [address] [id number] [place] [address]- 3393 Dec, [facility] [place] [facility] [address] [facility] [id number] [place] [address]- 0166 Dec, [facility] [place] [facility] [address] [id number] [place] [address]- 2224 Nov, [facility] [place] [facility] [id number] [address]- 9751 Oct, [facility] [place] [facility] [address] [facility] [id number] [place] [address]- 4639 Sep, [facility] [place] [facility] [address] [id number] [place] [address]- 8722 Sep, [facility] [place] [facility] [address] [id number] [address] Aug, [facility] [place] [facility] [address] [id number] [place] [address] Aug, [facility] [place] [facility] [address] [facility] [id number] [place] [address] 14 Nov, 2010 [facility] [place] [facility] [address] [facility] [id number] [place] [address] Aug, [facility] [address] [facility] [id number] [place] [address] March, IMMUNIZATIONS No Known Immunizations SOCIAL HISTORY Never Assessed REASON FOR VISIT Hydrocodone due 04/25 PLAN OF CARE VITAL SIGNS MEDICATIONS Medication [...]
--- OUTSIDE RECORDS SUMMARY | 2018-08-06 00:47 | XMS REPORT ---
Author Author YANI CESAR [facility] Address [address] [place] [address] Care Team Providers Care [employer] Name Role Phone YANI CESAR Unavailable PROBLEMS Type Condition ICD9-CM Code OQG87-BW Code Onset Dates Condition Status SNOMED Code Problem FDC current use of insulin Z79.4 Active 917424871 Problem Hyperlipidemia, unspecified hyperlipidemia type E78.5 Active 01173739 Problem Gastroparesis K31.84 Active 314943693 Problem PVD (peripheral vascular disease) I73.9 Active 357989951 Problem Anticoagulated by anticoagulation treatment Z79.01 Active 898651685 Problem Iron deficiency anemia due to chronic blood loss D50.0 Active 682288515 Problem Type 2 diabetes mellitus with foot ulcer E11.621 Active 2567935317994 Problem Type 2 diabetes mellitus without complications E11.9 Active 202164165 Problem Dysfunctional uterine bleeding N93.8 Active 25216788 Problem Atherosclerosis of [place] arteries of extremities with gangrene, 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 Active [id number] ALLERGIES No Information ENCOUNTERS Encounter Location Date Diagnosis [place] [id number] [place] [address] 20635- 3640 Apr, Other fluid overload E87.79 and Hyperlipidemia, unspecified hyperlipidemia type E78.5 [facility] [address] [place] [address] 24617- 9366 Apr, [facility] [address] [place] [address] 30894- 8357 18 Apr, 2018 [facility] [address] [place] [id number] [place] [address] 86720- 3824 14 Apr, 2018 [facility] [address] [place] [address] 82257- 4203 Apr, [facility] [address] [id number] [place] [address] 98970- 3363 March, Acute embolism and thrombosis of left femoral vein I82.412 [place] [address] 07480- 5439 March, PVD (peripheral vascular disease) I73.9 [place] [address] [place] [id number] [place] [address] 21496- 4360 March, Encounter for medication monitoring Z51.81 ; Iron deficiency anemia due to chronic blood loss D50.0 and Anticoagulated by anticoagulation treatment Z79.01 [place] [address] [place] [id number] [place] [address] 40342- 7347 March, Encounter for medication monitoring Z51.81 [place] [address] [place] [id number] [place] [address] 06902- 5159 March, Iron deficiency anemia due to chronic blood loss D50.0 ; Type 2 diabetes mellitus with foot ulcer E11.621 and Dysfunctional uterine bleeding N93.8 [place] [address] [place] [id number] [place] [address] 18717- 7485 Feb, PVD (peripheral vascular disease) I73.9 [place] [address] [place] [id number] [place] [address] 52418- 2336 Jan, [place] [address] [place] [id number] [place] [address] 56230- 9761 Jan, PVD (peripheral vascular disease) I73.9 [place] [address] [place] [id number] [place] [address] 63669- 4509 Dec, PVD (peripheral vascular disease) I73.9 [place] [address] [place] [id number] [place] [address] 36810- 5429 Dec, Pale complexion R23.1 and Severe anemia D64.9 [place] [address] [place] [id number] [place] [address] 68224- 7414 Nov, PVD (peripheral vascular disease) I73.9 [place] [address] [address] 3002 Nov, PVD (peripheral vascular disease) I73.9 [facility] [address] [place] [id number] [place] [address] 57274- 1606 Oct, PVD (peripheral vascular disease) I73.9 [place] [address] [place] [id number] [place] [address] 817871- 8516 Sep, PVD (peripheral vascular disease) I73.9 [place] [address] [place] [id number] [place] [address] 65859- 7185 Aug, PVD (peripheral vascular disease) I73.9 [place] [address] [place] [id number] [place] [address] 01851- 3745 Jul, PVD (peripheral vascular disease) I73.9 [place] [address] [place] [id number] [place] [address] 97519- 5438 Jun, Type 2 diabetes mellitus without complications E11.9 ; Hyperlipidemia, unspecified hyperlipidemia type E78.5 and PVD (peripheral vascular disease) I73.9 [place] [address] [place] [address] 10529- 3418 Jun, [place] [address] [place] [address] 59679- 6963 Jun, Long-term use of high-risk medication Z79.899 [place] [address] [place] [address] 29280- 0014 May, [place] [address] [place] [address] 50371- 1419 May, Osteomyelitis, unspecified M86.9 [place] [address] [place] [address] 33441- 1166 Apr, Atherosclerosis of [place] arteries of extremities with gangrene, 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 [place] [address] [place] [id number] [place] [address] 51031- 2859 March, Osteomyelitis, unspecified M86.9 [place] [address] [place] [id number] [place] [address] 18891- 6423 Feb, Atherosclerosis of [place] arteries of extremities with gangrene, 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 [place] [address] [place] [id number] [place] [address] 19864- 9612 17 Jan, 2017 Atherosclerosis of [place] arteries of extremities with gangrene, 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 [place] [address] 88509- 5206 17 Jan, 2017 Type 2 diabetes mellitus without complications E11.9 ; FDC current use of insulin Z79.4 ; Hyperlipidemia, unspecified hyperlipidemia type E78.5 ; Long-term use of high-risk medication Z79.899 and PVD (peripheral vascular disease) I73.9 [place] [address] [place] [id number] [place] [address] 63448- 1978 Dec, Cellulitis of right lower limb L03.115 [place] [address] 87735- 3299 Dec, [place] [address] 48761- 2915 Nov, Atherosclerosis of [place] arteries of extremities with gangrene, 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 [place] [address] [place] [id number] [place] [address] 31966- 0318 Nov, [place] [address] [place] [id number] [place] [address] 23036- 8479 Nov, [place] [address] [place] [id number] [place] [address] 49776- 6773 Oct, Other fluid overload E87.79 and Acute embolism and thrombosis of left femoral vein I82.412 [place] [address] [place] [id number] [place] [address] 33417- 7075 Oct, [place] [address] 79160- 1803 Oct, [facility] [address] [place] [address] 51581- 8847 Oct, PVD (peripheral vascular disease) I73.9 [facility] [address] [place] [id number] [place] [address] 675774- 3755 Oct, Other fluid overload E87.79 and Acute embolism and thrombosis of left femoral vein I82.412 [facility] [address] [place] [id number] [place] [address] 25221- 4673 Oct, [facility] [address] [place] [id number] [place] [address] 628166- 5505 Oct, Atherosclerosis of [place] arteries of extremities with gangrene, 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 [place] [address] [place] [id number] [place] [address] 74264- 3482 10 Sep, 2016 [place] [address] [place] [id number] [place] [address] 46301- 3967 Sep, [facility] [address] [place] [id number] [place] [address] 44579- 3538 08 Sep, 2016 PVD (peripheral vascular disease) I73.9 [place] [address] [place] [id number] [place] [address] 864552- 8756 07 Aug, 2016 Type 2 diabetes mellitus with foot ulcer E11.621 and PVD ( peripheral vascular disease) I73.9 [facility] [address] [place] [address] 20632- 4294 30 Jul, 2016 [facility] [address] [place] [address] 43941- 2543 Jul, [facility] [address] [place] [id number] [place] [address] 557917- 4671 Jul, [facility] [address] [place] [id number] 5592 Jul, [facility] [address] [place] [id number] [place] [address] 48129- 9050 Jun, [facility] [address] [place] [address]- 2657 Jun, [facility] [address] 1973 Jun, [facility] [address] [place] [address]- 8129 May, [facility] [address] [address]- 2751 May, PVD (peripheral vascular disease) I73.9 ; Type 2 diabetes mellitus without complications E11.9 ; shoder filler current use of insulin Z79.4 and Hyperlipidemia, unspecified hyperlipidemia type E78.5 [facility] [address] [address]- 0901 May, [facility] [address] [address]- 2833 May, [facility] [address] [address]- 8175 May, [facility] [address] [address]- 6560 Feb, [facility] [address] [address]- 2168 Feb, [facility] [address] [address]- 6240 Jan, [facility] [address] [place] [id number] [address]- 8434 Jan, [facility] [address] [place] [id number] [address]- 5823 Dec, [facility] [address] 7152 Dec, [facility] [address] [place] [address] [id number] 1536 Oct, [facility] [place] [facility] [address] [id number] [place] [address]- 6709 Oct, [facility] [place] [facility] [address] [id number] [place] [address]- 4250 Sep, [facility] [place] [facility] [address] [id number] [place] 4590 Sep, [facility] [place] [facility] [address] [id number] [place] [address]- 3306 Sep, [facility] [place] [facility] [address] [id number] [place] [address]- 7864 Sep, [facility] [place] [facility] [address] [id number] [place] [address]- 7365 Aug, [facility] [place] [facility] [address] [id number] [place] [address]- 4332 Aug, [facility] [place] [facility] [address] [id number] [place] [address]- 2577 Jul, [facility] [place] [facility] [address] [id number] [place] [address]- 7026 Jul, [facility] [place] [facility] [address] [id number] [place] [address]- 2565 Apr, [facility] [place] [facility] [address] [id number] [place] [address]- 4384 Apr, [facility] [place] [facility] [address] [id number] [place] [address]- 0887 Feb, [facility] [place] [facility] [address] [id number] [place] 2886 Feb, [facility] [place] [facility] [address] [id number] [place] 3876 Jan, [facility] [place] [facility] [address] [id number] [place] [address]- 1133 Jan, [facility] [place] [facility] [address] [id number] [place] [address]- 9117 Dec, [facility] [place] [facility] [address] [id number] [place] [address]- 0966 Dec, [facility] [place] [facility] [address] [id number] [place] [address]- 0562 Oct, [facility] [place] [facility] [address] [id number] [place] [address]- 4143 Oct, [facility] [place] [facility] [address] [id number] [place] [address]- 3705 Sep, [facility] [place] [facility] [address] [id number] [place] 4460 Sep, [facility] [place] [facility] [address] [id number] [place] [address]- 2401 Sep, [facility] [place] [facility] [address] [id number] [place]- 9516 Sep, [facility] [place] [facility] [address] [id number] [place] [address]- 8119 Sep, [facility] [place] [facility] [address] [id number] [place] [address]- 6416 Sep, [facility] [place] [facility] [address] [id number] [place] [address]- 3089 Aug, [facility] [place] [facility] [address] [id number] [address]- 9156 Jul, [facility] [place] [facility] [address] [id number], [place] [address]- 4621 Jun, [facility] [place] [facility] [address] [id number] [place] [address]- 4301 May, [facility] [place] [facility] [address] [id number], [place] [address]- 6413 Apr, [facility] [place] [facility] [address] [id number] [place] [address]- 7764 Apr, [facility] [place] [facility] [address] [id number] [place] [address]- 0666 13 Apr, 2013 [facility] [address] [id number] [place] [address]- 5760 March, [facility] [place] [facility] [address] [id number] [place] [address]- 2546 15 Jan, 2013 [facility] [address] [id number] [place] [address]- 2811 10 Jan, 2013 [facility] [place] [facility] [address] [id number] [place] [address]- 5448 08 Jan, 2013 [facility] [address] [id number] [place] [address]- 2022 07 Jan, 2013 [facility] [address] [facility] [id number] [place] [address]- 1406 06 Jan, 2013 [facility] [address] [id number] [place] [address]- 2795 19 Dec, 2012 [facility] [address] [id number] [place] [address]- 1774 18 Dec, 2012 [facility] [address] [facility] [id number] [place] [address]- 2856 Dec, [facility] [address] [facility] [id number] [place] [address]- 9286 07 Dec, 2012 [facility] [address] [id number] [place] [address]- 7036 05 Dec, 2012 [facility] [address] [id number] [place] [address]- 4859 Nov, [facility] [place] [facility] [address] [id number] [place] [address]- 5966 Nov, [facility] [place] [facility] [address] [facility] [id number] [place] [address]- 0356 Nov, [facility] [place] [facility] [address] [id number] [place] [address]- 6016 Nov, [facility] [address] [id number] [place] [address]- 5566 Nov, [facility] [place] [facility] [address] [id number] [place] [address]- 2983 Nov, [facility] [place] [facility] [address] [id number] [place] [address]- 8724 Nov, [facility] [place] [facility] [address] [id number] [place] [address]- 7550 Nov, [facility] [place] [facility] [address] [id number] [place] [address]- 7940 Nov, [facility] [place] [facility] [address] [id number] [place] [address]- 6241 Sep, [facility] [place] [facility] [address] [id number] [place] [address]- 6209 Sep, [facility] [place] [facility] [address] [id number] [place] [address]- 5940 25 Jul, 2012 [facility] [place] [facility] [address] [id number] [place] [address]- 8091 17 Jul, 2012 [facility] [place] [facility] [address] [id number] [place] [address]- 9788 11 Jul, 2012 [facility] [place] [facility] [address] [id number], [place] [address]- 7885 10 Jul, 2012 [facility] [place] [facility] [address] [id number], [place] [address] 2542 05 Jul, 2012 [facility] [place] [facility] [address] [id number] [place] [address] 2540 05 Jul, 2012 [facility] [place] [facility] [address] [id number] [place] [address]- 9611 28 Jun, 2012 [facility] [place] [facility] [address] [id number] [place] [address]- 6262 Jun, [facility] [place] [facility] [address] [id number] [place] [address]- 1997 18 Jun, 2012 [facility] [place] [facility] [address] [id number] [place] [address]- 7888 17 Jun, 2012 [facility] [place] [facility] [address] [id number] [place] [address]- 3566 16 Jun, 2012 [facility] [place] [facility] [address] [id number] [place] [address]- 1217 14 Jun, 2012 [facility] [place] [facility] [address] [id number] [place] [address]- 4948 14 Jun, 2012 [facility] [place] [facility] [address] [id number] [place] [address]- 4756 10 Jun, 2012 [facility] [place] [facility] [address] [id number] [place] [address]- 2843 30 May, 2012 [facility] [place] [facility] [address] [id number] [place] [address]- 2831 14 May, 2012 [facility] [place] [facility] [address] [id number] [place] [address]- 8075 Apr, [facility] [place] [facility] [address] [id number] [place] [address]- 1150 March, [facility] [place] [facility] [address] [id number] [place] [address]- 5812 March, [facility] [place] [facility] [address] [id number] [place] [address]- 2367 March, [facility] [place] [facility] [address] [id number] [place] [address]- 1079 March, [facility] [place] [facility] [address] [id number] [place] [address]- 2382 27 Feb, 2012 [facility] [place] [facility] [address] [id number] [place] [address]- 1471 Feb, [facility] [place] [facility] [address] [id number] [place] [address]- 9639 Feb, [facility] [address] [facility] [id number], [place] [address]- 3247 Jan, [facility] [address] [facility] [id number], [place] [address]- 0564 Dec, [facility] [address] [facility] [id number], [place] [address]- 1637 Dec, [facility] [address] [facility] [id number], [place] [address]- 9946 Dec, [facility] [address] [facility] [id number] [place] [address]- 7929 Dec, [facility] [address] [facility] [id number], [place] [address]- 7096 Dec, [facility] [address], [place] [address]- 0176 Nov, [facility] [address], [place] [address]- 7528 Oct, [facility] [address] [address]- 6999 Sep, [facility] [id number] [address]- 0760 Sep, [facility] [address], [place] [address]- 3624 Aug, [facility] [id number] [address]- 5002 Aug, [facility] [id number] [address]- 9556 Nov, [facility] [address] [facility] [id number][place] 1777 Aug, [facility] [id number] 3177 March, IMMUNIZATIONS No Known Immunizations SOCIAL HISTORY Never Assessed REASON FOR VISIT Hydrocodone 02/24 PLAN OF CARE VITAL SIGNS MEDICATIONS Medication [...]
--- OUTSIDE RECORDS SUMMARY | 2018-08-06 00:47 | XMS REPORT ---
Author Author YANI CESAR [facility] Address [address] [place] [address] Care Team Providers Care [facility] Supervisor Name Role Phone YANI CESAR Unavailable PROBLEMS Type Condition ICD9-CM Code DTB94-BS Code Onset Dates Condition Status SNOMED Code Problem correction current use of insulin Z79.4 Active 618468674 Problem Hyperlipidemia, unspecified hyperlipidemia type E78.5 Active 38300595 Problem Gastroparesis K31.84 Active 419086995 Problem PVD (peripheral vascular disease) I73.9 Active 867305305 Problem Anticoagulated by anticoagulation treatment Z79.01 Active 113002261 Problem Iron deficiency anemia due to chronic blood loss D50.0 Active 249022267 Problem Type 2 diabetes mellitus with foot ulcer E11.621 Active 4116543278211 Problem Type 2 diabetes mellitus without complications E11.9 Active 405951459 Problem Dysfunctional uterine bleeding N93.8 Active 83399627 Problem 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, 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 Active [id number] ALLERGIES No Information ENCOUNTERS Encounter Location Date Diagnosis [place] [id number] [place] [address] 66498- 4309 May, Other fluid overload E87.79 and Hyperlipidemia, unspecified hyperlipidemia type E78.5 [place] [id number] [place] [address] 62926- 2734 Apr, Other fluid overload E87.79 and Hyperlipidemia, unspecified hyperlipidemia type E78.5 [place] [id number] [place] [address] 86880- 4407 Apr, [place] [id number] [place] [address] 85193- 1689 Apr, [place] [address] 17476- 3925 Apr, [place] [id number] [place] [address] 02828- 0040 Apr, [place] [id number] [place] [address] 81109- 8257 March, Acute embolism and thrombosis of left femoral vein I82.412 [place] [id number] [place] [address] 17771- 7997 March, PVD (peripheral vascular disease) I73.9 [place] [id number] [place] [address] 77432- 8057 March, Encounter for medication monitoring Z51.81 ; Iron deficiency anemia due to chronic blood loss D50.0 and Anticoagulated by anticoagulation treatment Z79.01 [place] [id number] [place] [address] 22227- 9341 March, Encounter for medication monitoring Z51.81 [place] [id number] [place] [address] 97328- 6412 March, Iron deficiency anemia due to chronic blood loss D50.0 ; Type 2 diabetes mellitus with foot ulcer E11.621 and Dysfunctional uterine bleeding N93.8 [place] [id number] [place] [address] 80364- 5187 Feb, PVD (peripheral vascular disease) I73.9 [place] [id number] [place] [address] 85828- 8182 Jan, [place] [id number] [place] [address] 11720- 5676 Jan, PVD (peripheral vascular disease) I73.9 [place] [id number] [place] [address] 29566- 1869 Dec, PVD (peripheral vascular disease) I73.9 [place] [id number] [place] [address] 04739- 9470 Dec, Pale complexion R23.1 and Severe anemia D64.9 [facility] [place] [address] [address] 3820 10 Nov, 2017 PVD (peripheral vascular disease) I73.9 [facility] [place] [id number] [place] [address] 45520- 8348 09 Nov, 2017 PVD (peripheral vascular disease) I73.9 [place] [id number] [place] [address] 48705- 6942 07 Oct, 2017 PVD (peripheral vascular disease) I73.9 [place] [id number] [place] [address] 10849- 0606 Sep, PVD (peripheral vascular disease) I73.9 [place] [id number] [place] [address] 19109- 4708 16 Aug, 2017 PVD (peripheral vascular disease) I73.9 [place] [id number] [place] [address] 55341- 5362 18 Jul, 2017 PVD (peripheral vascular disease) I73.9 [place] [id number] [place] [address] 95189- 4599 Jun, Type 2 diabetes mellitus without complications E11.9 ; Hyperlipidemia, unspecified hyperlipidemia type E78.5 and PVD (peripheral vascular disease) I73.9 [place] [address], [place] [address]- 4478 Jun, [place] [id number] [place] [address] 92192- 5249 Jun, Long-term use of high-risk medication Z79.899 [place] [id number] [place] [address] 46929- 0340 May, [place] [id number] [place] [address] 29772- 2502 May, Osteomyelitis, unspecified M86.9 [place] [id number] [place] [address] 24944- 3379 Apr, 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, 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 [place] [id number] [place] [address] 24525- 9400 March, Osteomyelitis, unspecified M86.9 [place] [id number] [place] [address] 75112- 3218 Feb, 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, 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 [place] [id number] [place] [address] 61406- 5980 Jan, 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, 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 [place] [id number] [place] [address] 29045- 0859 Jan, Type 2 diabetes mellitus without complications E11.9 ; correction current use of insulin Z79.4 ; Hyperlipidemia, unspecified hyperlipidemia type E78.5 ; Long-term use of high-risk medication Z79.899 and PVD (peripheral vascular disease) I73.9 [place] [id number] [place] [address] 16854- 6348 Dec, Cellulitis of right lower limb L03.115 [place] [id number] [place] [address] 90348- 7963 Dec, [place] [id number] [place] [address] 80962- 6735 Nov, 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, 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 [place] [id number] [place] [address] 12586- 5015 Nov, [place] [id number] [place] [address] 57784- 3134 Nov, [place] [id number] [place] [address] 63072- 8301 Oct, Other fluid overload E87.79 and Acute embolism and thrombosis of left femoral vein I82.412 [place] [address] [address]- 9564 Oct, [facility] [place] [id number] [place] [address] 20071- 5035 Oct, [facility] [place] [id number] [place] [address] 55995- 2806 Oct, PVD (peripheral vascular disease) I73.9 [facility] [place] [id number] [place] [address] 37921- 3656 Oct, Other fluid overload E87.79 and Acute embolism and thrombosis of left femoral vein I82.412 [facility] [place] [id number] [place] [address] 74201- 6026 Oct, [facility] [place] [id number] [place] [address] 57370- 3795 Oct, 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, 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 [facility] [place] [id number] [place] [address] 93901- 4658 10 Sep, 2016 [facility] [place] [id number] [place] [address] 75649- 4838 Sep, [facility] [place] [id number] [place] [address] 82513- 8368 08 Sep, 2016 PVD (peripheral vascular disease) I73.9 [facility] [place] [id number] [place] [address] 26975- 4794 07 Aug, 2016 Type 2 diabetes mellitus with foot ulcer E11.621 and PVD ( peripheral vascular disease) I73.9 [facility] [place] [address] [address]- 5653 30 Jul, 2016 [facility] [place] [id number] [place] [address] 81733- 8436 13 Jul, 2016 [facility] [place] [address] [address]- 6419 12 Jul, 2016 [facility] [place] [address] [address]- 1033 Jul, [facility] [place] [address], [place] [address]- 2578 Jun, [facility] [place] [address], [place] [address]- 2402 Jun, [facility] [place] [address], [place] [address]- 1945 Jun, [facility] [place] [address], [place] [address]- 2987 May, [facility] [place] [id number] [place] [address] 81792- 4499 May, PVD (peripheral vascular disease) I73.9 ; Type 2 diabetes mellitus without complications E11.9 ; correction current use of insulin Z79.4 and Hyperlipidemia, unspecified hyperlipidemia type E78.5 [facility] [place] [address], [place] [address]- 5804 May, [facility] [place] [address], [place] [address]- 3134 May, [facility] [place] [address], [place] [address]- 6385 May, [facility] [place] [address], [place] [address]- 4835 Feb, [facility] [place] [address], [place] [address]- 1002 Feb, [facility] [place] [address], [place] [address]- 8922 Jan, [facility] [place] [address], [place] [address]- 7088 Jan, [facility] [place] [id number] [place] [address]- 5751 Dec, [facility] [place] [address], [place] [address]- 8679 Dec, [facility] [place] [facility] [address] [id number] [place] [address]- 6408 Oct, [facility] [place] [facility] [address] [facility] [id number] [place] [address]- 8480 Oct, [facility] [place] [facility] [address] [facility] [id number] [place] [address]- 1386 Sep, [facility] [place] [facility] [address] [id number] [place] [address]- 5200 Sep, [facility] [place] [facility] [address] [facility] [id number] [place] [address]- 1391 Sep, [facility] [place] [facility] [address] [facility] [id number] [place] [address]- 1127 Sep, [facility] [place] [facility] [id number] [address]- 7384 Aug, [facility] [place] [facility] [address] [facility] [id number] [place] [address]- 2318 Aug, [facility] [place] [facility] [address] [facility] [id number] [place] [address]- 5902 Jul, [facility] [place] [facility] [address] [facility] [id number] [place] [address]- 2310 Jul, [facility] [place] [facility] [address] [facility] [id number], [place] [address]- 7282 Apr, [facility] [place] [facility] [address] [facility] [id number], [place] [address]- 0408 Apr, [facility] [place] [facility] [address] [facility] [id number], [place] [address]- 4315 Feb, [facility] [place] [facility] [address] [facility] [id number], [place] [address]- 4662 Feb, [facility] [place] [facility] [address] [facility] [id number], [place] [address]- 7858 Jan, [facility] [place] [facility] [address] [id number] [place] [address]- 4962 Jan, [facility] [place] [facility] [address] [id number] [place] [address]- 4978 Dec, [facility] [place] [facility] [address] [id number] [place] [address]- 3854 Dec, [facility] [place] [facility] [address] [id number] [place] 8360 Oct, [facility] [place] [facility] [address] [id number] [place] [address]- 1991 Oct, [facility] [place] [facility] [address] [id number] [place] [address]- 3346 Sep, [facility] [place] [facility] [address] [id number] [place] [address]- 0790 Sep, [facility] [place] [facility] [address] [id number] [place] [address]- 5091 Sep, [facility] [place] [facility] [address] [id number] [place] [address]- 0068 Sep, [facility] [place] [facility] [address] [id number] [place] [address]- 1603 Sep, [facility] [place] [facility] [address] [id number] [place] [address]- 0810 Sep, [facility] [place] [facility] [address] [id number] [place] [address]- 7886 Aug, [facility] [place] [facility] [address] [id number] [place] [address]- 2500 Jul, [facility] [place] [facility] [address] [id number] [place] [address]- 0769 Jun, [facility] [place] [facility] [address] [id number] [place] [address]- 7991 May, [facility] [place] [facility] [address] [id number] [place] [address]- 5016 Apr, [facility] [place] [facility] [address] [id number] [place] [address]- 8110 Apr, [facility] [place] [facility] [address] [id number] [place] [address]- 8813 Apr, [facility] [place] [facility] [address] [facility] [id number] [place] [address]- 6232 March, [facility] [place] [facility] [address] [id number] [place] [address]- 3576 15 Jan, 2013 [facility] [place] [facility] [address] [id number] [place] [address]- 0698 10 Jan, 2013 [facility] [place] [facility] [address] [facility] [id number] [place] [address]- 9245 08 Jan, 2013 [facility] [place] [facility] [address] [facility] [id number] [place] [address]- 5773 Jan, [facility] [place] [facility] [address] [id number] [place] [address]- 2279 06 Jan, 2013 [facility] [place] [facility] [address] [facility] [id number] [place] [address]- 9055 Dec, [facility] [place] [facility] [address] [facility] [id number] [place] [address]- 7912 18 Dec, 2012 [facility] [place] [facility] [address] [facility] [id number] [place] [address]- 7960 Dec, [facility] [place] [facility] [address] [facility] [id number] [place] [address] 2547 07 Dec, 2012 [facility] [place] [facility] [address] [id number] [place] [address]- 1672 05 Dec, 2012 [facility] [place] [facility] [address] [facility] [id number] [place] [address]- 7508 Nov, [facility] [place] [facility] [address] [facility] [id number] [place] [address]- 2546 Nov, [facility] [place] [facility] [address] [id number] [place] [address]- 0691 Nov, [facility] [address] [id number] [place] [address]- 7001 Nov, [facility] [place] [facility] [address] [id number] [place] [address]- 8738 Nov, [facility] [place] [facility] [address] [id number] [place] [address]- 1966 Nov, [facility] [place] [facility] [address] [id number] [place] [address]- 2034 Nov, [facility] [place] [facility] [address] [id number] [place] [address]- 0030 Nov, [facility] [place] [facility] [address] [id number] [place] [address]- 0967 Nov, [facility] [place] [facility] [address] [id number] [place] [address]- 1765 Sep, [facility] [place] [facility] [address] [id number] [place] [address]- 6282 14 Sep, 2012 [facility] [place] [facility] [address] [id number] [place] [address]- 6526 25 Jul, 2012 [facility] [place] [facility] [address] [id number] [place] [address]- 3879 17 Jul, 2012 [facility] [place] [facility] [address] [id number] [place] [address]- 7716 11 Jul, 2012 [facility] [place] [facility] [address] [id number] [place] [address] 2549 10 Jul, 2012 [facility] [place] [facility] [address] [id number] [place] [address]- 4416 05 Jul, 2012 [facility] [place] [facility] [address] [id number] [place] [address] 2546 05 Jul, 2012 [facility] [place] [facility] [address] [id number] [place] [address]- 9306 28 Jun, 2012 [facility] [place] [facility] [address] [id number] [place] [address]- 5878 20 Jun, 2012 [facility] [place] [facility] [address] [id number] [place] [address]- 2145 18 Jun, 2012 [facility] [place] [facility] [address] [id number] [place] [address]- 9063 17 Jun, 2012 [facility] [place] [facility] [address] [id number] [place] [address]- 9630 16 Jun, 2012 [facility] [place] [facility] [address] [id number] [place] [address]- 9874 14 Jun, 2012 [facility] [place] [facility] [address] [id number] [place] [address]- 9168 14 Jun, 2012 [facility] [place] [facility] [address] [id number] [place] [address]- 5343 Jun, [facility] [place] [facility] [address] [id number] [place] [address]- 4995 30 May, 2012 [facility] [place] [facility] [address] [id number] [place] [address]- 3604 May, [facility] [place] [facility] [address] [id number] [place] [address]- 2163 Apr, [facility] [place] [facility] [address] [id number] [place] [address]- 2470 March, [facility] [place] [facility] [address] [id number] [place] [address]- 8538 March, [facility] [place] [facility] [address] [id number] [place] [address]- 0813 March, [facility] [place] [facility] [address] [id number] [place] [address]- 8331 March, [facility] [place] [facility] [address] [id number] [place] [address]- 3814 Feb, [facility] [place] [facility] [address] [id number] [place] [address]- 2789 13 Feb, 2012 [facility] [address] [id number] [place] [address]- 1558 Feb, [facility] [place] [facility] [address] [id number] [place] [address]- 2396 Jan, [facility] [place] [facility] [address] [id number] [place] [address]- 5326 Dec, [facility] [place] [facility] [address] [id number] [place] [address] 2542 08 Dec, 2011 [facility] [place] [facility] [address] [id number] [place] [address], [place] [address]- 9407 Dec, [facility] [place] [facility] [address] [id number] [place] [address]- 4189 Dec, [facility] [place] [facility] [address] [facility] [id number] [place] [address]- 4990 Dec, [facility] [place] [facility] [address] [id number] [place] [address] Nov, [facility] [place] [facility] [address] [id number] [place] [address] Oct, [facility] [address] [facility] [id number] [place] [address] Sep, [facility] [place] [facility] [address] [id number] [place] [address] Sep, [facility] [place] [facility] [address] [id number] [address] Aug, [facility] [place] [facility] [address] [id number] [place] [address] Aug, [facility] [place] [facility] [address] [facility] [id number] [place] [address] 14 Nov, 2010 [facility] [place] [facility] [address] [facility] [id number] [place] [address] Aug, [facility] [place] [address] [facility] [id number] [place] [address] March, IMMUNIZATIONS No Known Immunizations SOCIAL HISTORY Never Assessed REASON FOR VISIT Hydrocodone 03/24 PLAN OF CARE VITAL SIGNS MEDICATIONS Medication [...]
--- OUTSIDE RECORDS SUMMARY | 2018-08-06 00:48 | XMS REPORT ---
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 Role Phone YANI CESAR Unavailable PROBLEMS Type Condition ICD9-CM Code UCM88-QG Code Onset Dates Condition Status SNOMED Code Problem detention current use of insulin Z79.4 Active 847813465 Problem Hyperlipidemia, unspecified hyperlipidemia type E78.5 Active 07620951 Problem Gastroparesis K31.84 Active 443817646 Problem PVD (peripheral vascular disease) I73.9 Active 360071034 Problem Anticoagulated by anticoagulation treatment Z79.01 Active 191606115 Problem Iron deficiency anemia due to chronic blood loss D50.0 Active 092723902 Problem Type 2 diabetes mellitus with foot ulcer E11.621 Active 6973487733070 Problem Type 2 diabetes mellitus without complications E11.9 Active 907891697 Problem Dysfunctional uterine bleeding N93.8 Active 88419777 Problem Atherosclerosis of [place] arteries of extremities with gangrene, 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 Active [id number] ALLERGIES No Information ENCOUNTERS Encounter Location Date Diagnosis [place] [id number] [place] [address] 88817- 4704 Apr, Other fluid overload E87.79 and Hyperlipidemia, unspecified hyperlipidemia type E78.5 [facility] [id number] [place] [address] 36098- 4149 Apr, [facility] [id number] [place] [address] 02402- 8532 18 Apr, 2018 [facility] [address] [place] [id number] [place] [address] 77476- 1173 14 Apr, 2018 [facility] [id number] [place] [address] 11741- 6757 Apr, [facility] [id number] [place] [address] 70427- 5165 March, Acute embolism and thrombosis of left femoral vein I82.412 [place] [address] 56750- 3611 March, PVD (peripheral vascular disease) I73.9 [place] [address] [place] [id number] [place] [address] 58381- 2655 March, Encounter for medication monitoring Z51.81 ; Iron deficiency anemia due to chronic blood loss D50.0 and Anticoagulated by anticoagulation treatment Z79.01 [place] [address] [place] [id number] [place] [address] 15967- 3202 March, Encounter for medication monitoring Z51.81 [place] [address] [place] [id number] [place] [address] 00864- 3967 March, Iron deficiency anemia due to chronic blood loss D50.0 ; Type 2 diabetes mellitus with foot ulcer E11.621 and Dysfunctional uterine bleeding N93.8 [place] [address] [place] [id number] [place] [address] 50321- 1045 Feb, PVD (peripheral vascular disease) I73.9 [place] [address] [place] [id number] [place] [address] 39131- 2319 Jan, [place] [address] [place] [id number] [place] [address] 82520- 1243 Jan, PVD (peripheral vascular disease) I73.9 [place] [address] [place] [id number] [place] [address] 15228- 6118 Dec, PVD (peripheral vascular disease) I73.9 [place] [address] [place] [id number] [place] [address] 24257- 7853 Dec, Pale complexion R23.1 and Severe anemia D64.9 [place] [address] [place] [id number] [place] [address] 26135- 8276 Nov, PVD (peripheral vascular disease) I73.9 [place] [address] [address]- 9467 Nov, PVD (peripheral vascular disease) I73.9 [facility] [address] [place] [id number] [place] [address] 67651- 6576 Oct, PVD (peripheral vascular disease) I73.9 [place] [address] [place] [id number] [place] [address] 468403- 7416 Sep, PVD (peripheral vascular disease) I73.9 [place] [address] [place] [id number] [place] [address] 23950- 4016 Aug, PVD (peripheral vascular disease) I73.9 [place] [address] [place] [id number] [place] [address] 74282- 0147 Jul, PVD (peripheral vascular disease) I73.9 [place] [address] [place] [id number] [place] [address] 73184- 3001 Jun, Type 2 diabetes mellitus without complications E11.9 ; Hyperlipidemia, unspecified hyperlipidemia type E78.5 and PVD (peripheral vascular disease) I73.9 [place] [address] [place] [address] 24224- 2832 Jun, [place] [address] [place] [address] 87502- 5806 Jun, Long-term use of high-risk medication Z79.899 [place] [address] [place] [address] 00779- 1619 May, [place] [address] [place] [address] 25464- 1454 May, Osteomyelitis, unspecified M86.9 [place] [address] [place] [address] 26988- 3133 Apr, Atherosclerosis of [place] arteries of extremities with gangrene, 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 [place] [address] [place] [id number] [place] [address] 28615- 7798 March, Osteomyelitis, unspecified M86.9 [place] [address] [place] [id number] [place] [address] 36669- 9980 Feb, Atherosclerosis of [place] arteries of extremities with gangrene, 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 [place] [address] [place] [id number] [place] [address] 32905- 3660 17 Jan, 2017 Atherosclerosis of [place] arteries of extremities with gangrene, 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 [place] [address] 58052- 1425 17 Jan, 2017 Type 2 diabetes mellitus without complications E11.9 ; detention current use of insulin Z79.4 ; Hyperlipidemia, unspecified hyperlipidemia type E78.5 ; Long-term use of high-risk medication Z79.899 and PVD (peripheral vascular disease) I73.9 [place] [address] [place] [id number] [place] [address] 54963- 3304 Dec, Cellulitis of right lower limb L03.115 [place] [address] 43428- 2145 Dec, [place] [address] 39052- 7155 Nov, Atherosclerosis of [place] arteries of extremities with gangrene, 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 [place] [address] [place] [id number] [place] [address] 78706- 0787 Nov, [place] [address] [place] [id number] [place] [address] 21810- 5419 Nov, [place] [address] [place] [id number] [place] [address] 52607- 8795 Oct, Other fluid overload E87.79 and Acute embolism and thrombosis of left femoral vein I82.412 [place] [address] [place] [id number] [place] [address] 94258- 9526 Oct, [place] [address] 10924- 3012 Oct, [facility] [address] [place] [address] 56913- 7341 Oct, PVD (peripheral vascular disease) I73.9 [facility] [address] [place] [id number] [place] [address] 224209- 4001 Oct, Other fluid overload E87.79 and Acute embolism and thrombosis of left femoral vein I82.412 [facility] [address] [place] [id number] [place] [address] 23364- 9009 Oct, [facility] [address] [place] [id number] [place] [address] 651307- 4233 Oct, Atherosclerosis of [place] arteries of extremities with gangrene, 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 [place] [address] [place] [id number] [place] [address] 86690- 0655 10 Sep, 2016 [place] [address] [place] [id number] [place] [address] 26961- 7692 Sep, [facility] [address] [place] [id number] [place] [address] 82342- 9319 08 Sep, 2016 PVD (peripheral vascular disease) I73.9 [place] [address] [place] [id number] [place] [address] 191993- 2845 07 Aug, 2016 Type 2 diabetes mellitus with foot ulcer E11.621 and PVD ( peripheral vascular disease) I73.9 [facility] [address] [place] [address] 75732- 6891 30 Jul, 2016 [facility] [address] [place] [address] 68819- 2547 Jul, [facility] [address] [place] [id number] [place] [address] 489251- 8062 Jul, [facility] [address] [place] [id number] 6150 Jul, [facility] [address] [place] [id number] [place] [address] 47618- 0373 Jun, [facility] [address] [place] [address]- 5018 Jun, [facility] [address] 0206 Jun, [facility] [address] [place] [address]- 4888 May, [facility] [address] [address]- 7203 May, PVD (peripheral vascular disease) I73.9 ; Type 2 diabetes mellitus without complications E11.9 ; 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 and Hyperlipidemia, unspecified hyperlipidemia type E78.5 [facility] [address] [address]- 6917 May, [facility] [address] [address]- 8301 May, [facility] [address] [address]- 9644 May, [facility] [address] [address]- 1062 Feb, [facility] [address] [address]- 7590 Feb, [facility] [address] [address]- 6774 Jan, [facility] [address] [id number] [address]- 3907 Jan, [facility] [address] [id number] [address]- 0710 Dec, [facility] [address] 6032 Dec, [facility] [address] [place] [id number] 6078 Oct, [facility] [place] [facility] [address] [id number] [place] [address]- 7189 Oct, [facility] [place] [facility] [address] [id number] [place] [address]- 2667 Sep, [facility] [place] [facility] [address] [id number] [place] 6526 Sep, [facility] [place] [facility] [address] [id number] [place] [address]- 7886 Sep, [facility] [place] [facility] [address] [id number] [place] [address]- 3262 Sep, [facility] [place] [facility] [address] [id number] [place] [address]- 0254 Aug, [facility] [place] [facility] [address] [id number] [place] [address]- 6754 Aug, [facility] [place] [facility] [address] [id number] [place] [address]- 6893 Jul, [facility] [place] [facility] [address] [id number] [place] [address]- 8626 Jul, [facility] [place] [facility] [address] [id number] [place] [address]- 4798 Apr, [facility] [place] [facility] [address] [id number] [place] [address]- 9030 Apr, [facility] [place] [facility] [address] [id number] [place] [address]- 9539 Feb, [facility] [place] [facility] [address] [id number] [place] 0360 Feb, [facility] [place] [facility] [address] [id number] [place] 6131 Jan, [facility] [place] [facility] [address] [id number] [place] [address]- 2803 Jan, [facility] [place] [facility] [address] [id number] [place] [address]- 1412 Dec, [facility] [place] [facility] [address] [id number] [place] [address]- 8315 Dec, [facility] [place] [facility] [address] [id number] [place] [address]- 9476 Oct, [facility] [place] [facility] [address] [id number] [place] [address]- 6212 Oct, [facility] [place] [facility] [address] [id number] [place] [address]- 2402 Sep, [facility] [place] [facility] [address] [id number] [place] 3163 Sep, [facility] [place] [facility] [address] [id number] [place] [address]- 0267 Sep, [facility] [place] [facility] [address] [id number] [place] 5952 Sep, [facility] [place] [facility] [address] [id number] [place] [address]- 8305 Sep, [facility] [place] [facility] [address] [id number] [place] [address]- 2370 Sep, [facility] [place] [facility] [address] [id number] [place] [address]- 4959 Aug, [facility] [place] [facility] [address] [id number], [place] [address]- 5579 Jul, [facility] [place] [facility] [address] [id number], [place] [address]- 6110 Jun, [facility] [place] [facility] [address] [id number] [place] [address]- 9878 May, [facility] [place] [facility] [address] [id number], [place] [address]- 5762 Apr, [facility] [place] [facility] [address] [id number] [place] [address]- 3431 Apr, [facility] [place] [facility] [address] [id number] [place] [address]- 9816 13 Apr, 2013 [facility] [address] [id number] [place] [address]- 2645 March, [facility] [place] [facility] [address] [id number] [place] [address]- 2546 15 Jan, 2013 [facility] [address] [id number] [place] [address]- 7381 10 Jan, 2013 [facility] [place] [facility] [address] [id number] [place] [address]- 1565 08 Jan, 2013 [facility] [address] [id number] [place] [address]- 2376 07 Jan, 2013 [facility] [address] [facility] [id number] [place] [address]- 3036 06 Jan, 2013 [facility] [address] [id number] [place] [address]- 9838 19 Dec, 2012 [facility] [address] [id number] [place] [address]- 9581 18 Dec, 2012 [facility] [address] [facility] [id number] [place] [address]- 3766 Dec, [facility] [address] [facility] [id number] [place] [address]- 8036 07 Dec, 2012 [facility] [address] [id number] [place] [address]- 0186 05 Dec, 2012 [facility] [address] [id number] [place] [address]- 7115 Nov, [facility] [place] [facility] [address] [id number] [place] [address]- 5046 Nov, [facility] [place] [facility] [address] [facility] [id number] [place] [address]- 7766 Nov, [facility] [place] [facility] [address] [id number] [place] [address]- 8079 Nov, [facility] [address] [id number] [place] [address]- 8950 Nov, [facility] [place] [facility] [address] [id number] [place] [address]- 0884 Nov, [facility] [place] [facility] [address] [id number] [place] [address]- 7362 Nov, [facility] [place] [facility] [address] [id number] [place] [address]- 3307 Nov, [facility] [place] [facility] [address] [id number] [place] [address]- 0846 Nov, [facility] [place] [facility] [address] [id number] [place] [address]- 3227 Sep, [facility] [place] [facility] [address] [id number] [place] [address]- 3399 Sep, [facility] [place] [facility] [address] [id number] [place] [address]- 7829 25 Jul, 2012 [facility] [place] [facility] [address] [id number] [place] [address]- 2095 17 Jul, 2012 [facility] [place] [facility] [address] [id number] [place] [address]- 9841 11 Jul, 2012 [facility] [place] [facility] [address] [id number], [place] [address]- 3939 10 Jul, 2012 [facility] [place] [facility] [address] [id number], [place] [address] 254 05 Jul, 2012 [facility] [place] [facility] [address] [id number] [place] [address] 254 05 Jul, 2012 [facility] [place] [facility] [address] [id number] [place] [address]- 7980 28 Jun, 2012 [facility] [place] [facility] [address] [id number] [place] [address]- 7303 Jun, [facility] [place] [facility] [address] [id number] [place] [address]- 2247 18 Jun, 2012 [facility] [place] [facility] [address] [id number] [place] [address]- 5970 17 Jun, 2012 [facility] [place] [facility] [address] [id number] [place] [address]- 5176 16 Jun, 2012 [facility] [place] [facility] [address] [id number] [place] [address]- 6192 14 Jun, 2012 [facility] [place] [facility] [address] [id number] [place] [address]- 9827 14 Jun, 2012 [facility] [place] [facility] [address] [id number] [place] [address]- 6514 10 Jun, 2012 [facility] [place] [facility] [address] [id number] [place] [address]- 9444 30 May, 2012 [facility] [place] [facility] [address] [id number] [place] [address]- 1252 14 May, 2012 [facility] [place] [facility] [address] [id number] [place] [address]- 2440 Apr, [facility] [place] [facility] [address] [id number] [place] [address]- 4482 March, [facility] [place] [facility] [address] [id number] [place] [address]- 3060 March, [facility] [place] [facility] [address] [id number] [place] [address]- 4158 March, [facility] [place] [facility] [address] [id number] [place] [address]- 0857 March, [facility] [place] [facility] [address] [id number] [place] [address]- 1141 27 Feb, 2012 [facility] [place] [facility] [address] [id number] [place] [address]- 8388 Feb, [facility] [place] [facility] [address] [id number] [place] [address]- 2894 Feb, [facility] [address] [id number], [place] [address]- 4545 Jan, [facility] [address] [facility] [id number], [place] [address]- 8156 Dec, [facility] [address] [facility] [id number], [place] [address]- 8416 Dec, [facility] [address] [facility] [id number] [place] [address]- 3046 Dec, [facility] [address] [facility] [id number] [place] [address]- 9319 Dec, [facility] [address] [facility] [id number], [place] [address]- 7976 Dec, [facility] [address] [facility] [id number], [place] [address]- 6069 Nov, [facility] [address] [facility] [id number], [place] [address]- 5174 Oct, [facility] [address] [facility] [id number], [place] [address]- 9745 Sep, [facility] [address] [facility] [id number], [place] [address]- 9472 Sep, [facility] [address] [facility] [id number], [place] [address]- 1442 Aug, [facility] [address] [facility] [id number], [place] [address]- 8835 Aug, [facility] [address] [facility] [id number], [place] [address]- 6522 Nov, [facility] [address] [facility] [id number], [place] [address]- 0839 Aug, [facility] [address] [facility] [id number][place] 7018 March, IMMUNIZATIONS No Known Immunizations SOCIAL HISTORY Never Assessed REASON FOR VISIT Controlled Med Refill PLAN OF CARE VITAL SIGNS MEDICATIONS Unknown [...]
--- OUTSIDE RECORDS SUMMARY | 2018-08-06 00:48 | XMS REPORT ---
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 Active 97243939903567247 Problem Hyperlipidemia, unspecified hyperlipidemia type E78.5 Active 16471099 Problem Gastroparesis K31.84 Active 658173909 Problem Type 2 diabetes mellitus with foot ulcer E11.621 Active 1201509582824 Problem Type 2 diabetes mellitus without complications E11.9 Active 299903786 ALLERGIES No Information ENCOUNTERS Encounter Location Date Diagnosis [place] [id number] [place] [address] 66977- 7342 March, [place] [id number] [place] [address] 72431- 4190 March, Iron deficiency anemia due to chronic blood loss D50.0 and Type 2 diabetes mellitus with foot ulcer E11.621 [facility] [id number] [place] [address] 29337- 0575 Feb, PVD (peripheral vascular disease) I73.9 [facility] [id number] [place] [address] 10288- 6019 Jan, [place] [id number] [place] [address] 42401- 4776 Jan, PVD (peripheral vascular disease) I73.9 [facility] [id number] [place] [address] 88079- 8214 Dec, PVD (peripheral vascular disease) I73.9 [place] [address] 11519- 8978 Dec, Pale complexion R23.1 and Severe anemia D64.9 [place] [address] 26002- 3158 Nov, PVD (peripheral vascular disease) I73.9 [place] [address] 56207- 7038 Nov, PVD (peripheral vascular disease) I73.9 [place] [address] 41499- 1102 Oct, PVD (peripheral vascular disease) I73.9 [place] [address] 27608- 6659 Sep, PVD (peripheral vascular disease) I73.9 [place] [id number] [place] [address] 54964- 5125 Aug, PVD (peripheral vascular disease) I73.9 [place] [id number] [place] [address] 33799- 3836 Jul, PVD (peripheral vascular disease) I73.9 [place] [id number] [place] [address] 75074- 7963 Jun, Type 2 diabetes mellitus without complications E11.9 ; Hyperlipidemia, unspecified hyperlipidemia type E78.5 and PVD (peripheral vascular disease) I73.9 [place] [address] 35700- 2401 Jun, [place] [id number] [place] [address] 16593- 5169 Jun, Long-term use of high-risk medication Z79.899 [place] [address] 10199- 2085 May, [place] [address], [place] [address] 8999 May, Osteomyelitis, unspecified M86.9 [place] [address] [address]- 2036 Apr, Atherosclerosis of [place] arteries of extremities with gangrene, 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 [place] [id number] [place] [address] 681607- 2123 March, Osteomyelitis, unspecified M86.9 [place] [id number] [place] [address] 021778- 4464 Feb, Atherosclerosis of [place] arteries of extremities with gangrene, 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 [place] [address], [place] [address]- 4012 Jan, Atherosclerosis of [place] arteries of extremities with gangrene, 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 [place] [address], [place] [address]- 6933 Jan, Type 2 diabetes mellitus without complications E11.9 ; 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.4 ; Hyperlipidemia, unspecified hyperlipidemia type E78.5 ; Long-term use of high-risk medication Z79.899 and PVD (peripheral vascular disease) I73.9 [place] [address] [address]- 1888 Dec, Cellulitis of right lower limb L03.115 [place] [address] [address]- 8532 Dec, [place] [id number] 8288 Nov, Atherosclerosis of [place] arteries of extremities with gangrene, 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 [place] [address] 6294 Nov, [place] [id number] [address]- 3136 Nov, [facility] [address] [place] [address] 38237 2546 Oct, Other fluid overload E87.79 and Acute embolism and thrombosis of left femoral vein I82.412 [facility] [id number] [place] [address] 63181 2546 Oct, [facility] [id number] [place] [address] 70811 2546 Oct, [facility] [id number] [place] [address] 86918 2546 Oct, PVD (peripheral vascular disease) I73.9 [facility] [id number] [place] [address] 21539 2546 Oct, Other fluid overload E87.79 and Acute embolism and thrombosis of left femoral vein I82.412 [facility] [address] [place] [address] 90507 2546 Oct, [facility] [id number] [place] [address] 38637- 1964 Oct, Atherosclerosis of [place] arteries of extremities with gangrene, 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 [facility] [address], [place] [address]- 7081 10 Sep, 2016 [facility] [address], [place] [address] 2546 Sep, [facility] [address], [place] [address] 2540 08 Sep, 2016 PVD (peripheral vascular disease) I73.9 [facility] [id number] [place] [address] 55652- 2546 07 Aug, 2016 Type 2 diabetes mellitus with foot ulcer E11.621 and PVD ( peripheral vascular disease) I73.9 [facility] [address] [place] [address] 93185- 6276 30 Jul, 2016 [facility] [address] [place] [address]- 9494 Jul, [facility] [address] [place] [address]- 4012 Jul, [facility] [address] [place] [address]- 4343 Jul, [facility] [id number] [place] [address]- 9042 Jun, [facility] [address] [place] [address]- 1062 Jun, [facility] [id number] [place] [address], [place] [address]- 3818 Jun, [facility] [address] [place] [address]- 7881 May, [facility] [address] [address]- 3167 May, PVD (peripheral vascular disease) I73.9 ; Type 2 diabetes mellitus without complications E11.9 ; halfway current use of insulin Z79.4 and Hyperlipidemia, unspecified hyperlipidemia type E78.5 [facility] [address] [address]- 2121 May, [facility] [address], [place] [address]- 8614 May, [facility] [address], [place] [address]- 3716 May, [facility] [address], [place] [address]- 5924 Feb, [facility] [address], [place] [address]- 7689 Feb, [facility] [id number] [address]- 3173 Jan, [facility] [place] [facility] [address] [id number] [place] [address]- 2386 Jan, [facility] [place] [facility] [address] [id number] [place] [address]- 0733 Dec, [facility] [place] [facility] [address] [id number] [place] [address]- 0747 Dec, [facility] [place] [facility] [address] [id number] [place] [address]- 2144 Oct, [facility] [place] [facility] [address] [id number] [place] [address]- 5552 Oct, [facility] [place] [facility] [address] [id number] [place] [address]- 0977 Sep, [facility] [place] [facility] [address] [facility] [id number] [place] [address]- 7024 Sep, [facility] [place] [facility] [address] [id number] [place] [address]- 9902 Sep, [facility] [place] [facility] [address] [id number] [place] [address]- 6448 Sep, [facility] [place] [facility] [address] [id number] [place] [address]- 6590 Aug, [facility] [place] [facility] [address] [id number] [place] [address]- 5980 Aug, [facility] [place] [facility] [address] [id number] [place] [address]- 9250 Jul, [facility] [place] [facility] [address] [id number] [place] [address]- 1253 Jul, [facility] [place] [facility] [address] [id number] [place] [address]- 9030 Apr, [facility] [place] [facility] [address] [id number] [place] [address]- 4806 Apr, [facility] [place] [facility] [address] [id number] [place] [address]- 2546 Feb, [facility] [place] [facility] [address] [id number] [place] 7048 Feb, [facility] [place] [facility] [address] [id number] [place] [address]- 0333 Jan, [facility] [place] [facility] [address] [id number] [place] [address]- 8945 Jan, [facility] [place] [facility] [address] [id number] [place] [address]- 6881 Dec, [facility] [place] [facility] [address] [id number] [place] 2565 Dec, [facility] [place] [facility] [address] [id number] [place] 5577 Oct, [facility] [place] [facility] [address] [id number] [place] [address]- 3597 Oct, [facility] [place] [facility] [address] [id number] [place] [address]- 0136 Sep, [facility] [place] [facility] [address] [id number] [place] [address]- 3275 Sep, [facility] [place] [facility] [address] [id number] [place] [address]- 4676 Sep, [facility] [place] [facility] [address] [id number], [place] [address]- 1809 Sep, [facility] [place] [facility] [address] [id number], [place] [address]- 6600 Sep, [facility] [place] [facility] [address] [id number], [place] [address]- 1312 Sep, [facility] [place] [facility] [address] [id number] 9452 Aug, [facility] [place] [facility] [address] [id number] [place] [address]- 6886 Jul, [facility] [place] [facility] [address] [id number] [place] [address]- 3822 08 Jun, 2013 [facility] [address] [id number] [place] [address]- 3384 05 May, 2013 [facility] [place] [facility] [address] [id number] [place] [address]- 1630 Apr, [facility] [place] [facility] [address] [id number] [place] [address]- 3403 Apr, [facility] [place] [facility] [address] [id number] [place] [address]- 3213 Apr, [facility] [place] [facility] [address] [id number] [place] [address]- 8566 March, [facility] [place] [facility] [address] [id number] [place] [address]- 3913 15 Jan, 2013 [facility] [place] [facility] [address] [id number] [place] [address]- 1981 Jan, [facility] [place] [facility] [address] [id number] [place] [address]- 6345 08 Jan, 2013 [facility] [place] [facility] [address] [id number] [place] [address]- 2105 07 Jan, 2013 [facility] [place] [facility] [address] [facility] [id number] [place] [address]- 6023 06 Jan, 2013 [facility] [place] [facility] [address] [id number] [place] [address]- 1807 Dec, [facility] [place] [facility] [address] [id number] [place] [address]- 4269 18 Dec, 2012 [facility] [place] [facility] [address] [id number] [place] [address]- 1793 11 Dec, 2012 [facility] [place] [facility] [address] [id number] [place] [address]- 4316 07 Dec, 2012 [facility] [place] [facility] [address] [id number] [place] [address]- 5263 Dec, [facility] [address] [id number] [place] [address]- 0688 Nov, [facility] [place] [facility] [address] [id number] [place] [address]- 8525 Nov, [facility] [place] [facility] [address] [id number] [place] [address]- 5426 Nov, [facility] [place] [facility] [address] [id number] [place] [address]- 5970 Nov, [facility] [place] [facility] [address] [id number] [place] [address]- 5654 Nov, [facility] [place] [facility] [address] [id number] [place] [address]- 2157 Nov, [facility] [place] [facility] [address] [id number] [place] [address]- 1978 Nov, [facility] [place] [facility] [address] [id number] [place] [address]- 4313 Nov, [facility] [place] [facility] [address] [id number] [place] [address]- 0491 Nov, [facility] [place] [facility] [address] [id number] [place] [address]- 8971 Sep, [facility] [place] [facility] [address] [id number], [place] [address]- 2204 14 Sep, 2012 [facility] [place] [facility] [address] [id number] [place] [address]- 9836 25 Jul, 2012 [facility] [place] [facility] [address] [id number] [place] [address]- 9319 17 Jul, 2012 [facility] [place] [facility] [address] [id number] [place] [address]- 7165 11 Jul, 2012 [facility] [place] [facility] [address] [id number] [place] [address]- 0243 10 Jul, 2012 [facility] [place] [facility] [address] [id number] [place] [address]- 0608 05 Jul, 2012 [facility] [address] [id number] [place] [address]- 4446 05 Jul, 2012 [facility] [place] [facility] [address] [id number] [place] [address]- 4315 28 Jun, 2012 [facility] [address] [id number] [place] [address]- 2691 20 Jun, 2012 [facility] [place] [facility] [address] [id number] [place] [address]- 5761 18 Jun, 2012 [facility] [address] [id number] [place] [address]- 3707 17 Jun, 2012 [facility] [address] [id number] [place] [address]- 3642 16 Jun, 2012 [facility] [address] [id number] [place] [address]- 7008 Jun, [facility] [address] [id number] [place] [address]- 1975 14 Jun, 2012 [facility] [place] [facility] [address] [id number] [place] [address]- 9010 Jun, [facility] [address] [id number] [place] [address]- 2844 May, [facility] [place] [facility] [address] [id number] [place] [address]- 9351 May, [facility] [place] [facility] [address] [id number] [place] [address]- 3270 Apr, [facility] [place] [facility] [address] [id number] [place] [address]- 5170 March, [facility] [place] [facility] [address] [id number] [place] [address]- 0611 March, [facility] [place] [facility] [address] [id number] [place] [address]- 1672 March, [facility] [address] [id number] [place] [address]- 3029 March, [facility] [place] [facility] [address] [id number] [place] [address]- 6087 Feb, [facility] [place] [facility] [address] [id number] [place] [address]- 0177 Feb, [facility] [place] [facility] [address] [id number] [place] [address]- 1556 Feb, [facility] [place] [facility] [address] [id number] [place] [address]- 3056 Jan, [facility] [place] [facility] [address] [id number] [place] [address]- 2856 Dec, [facility] [place] [facility] [address] [id number] [place] [address]- 0906 Dec, [facility] [place] [facility] [address] [id number] [place] [address]- 0951 Dec, [facility] [place] [facility] [address] [id number] [place] [address]- 5409 Dec, [facility] [place] [facility] [address] [facility] [id number] [place] [address]- 3360 Dec, [facility] [place] [facility] [address] [id number] [place] [address]- 0456 Nov, [facility] [place] [facility] [address] [id number], [place] [address]- 6616 Oct, [facility] [place] [facility] [address] [id number] [place] [address]- 1103 Sep, [facility] [place] [facility] [address] [id number] [place] [address]- 4996 Sep, [facility] [place] [facility] [address] [facility] [id number] [place] [address]- 5262 Aug, [facility] [place] [facility] [address] [facility] [id number] [place] [address]- 9362 Aug, [facility] [address] [facility] [id number] [place] [address]- 9868 Nov, [facility] [address] [facility] [id number], [place] [address]- 9295 Aug, [facility] [address] [facility] [id number] [place] [address]- 7442 March, IMMUNIZATIONS No Known Immunizations SOCIAL HISTORY Never Assessed REASON FOR VISIT Hydrocodone 09/13 PLAN OF CARE VITAL SIGNS MEDICATIONS Medication Instructions Dosage Frequency Start Date End Date Duration Status Hydrocodone-Acetaminophen 7.5-325 MG Orally 3 times a day 1 tablet 8h Aug, 28 days Active RESULTS No Results PROCEDURES [...]
--- OUTSIDE RECORDS SUMMARY | 2018-08-06 00:49 | XMS REPORT ---
Author Author YANI CESAR [facility] Address [address] [place] [address] Care Team Providers Care Special Police Officer Name Role Phone YANI CESAR Unavailable PROBLEMS Type Condition ICD9-CM Code OUN22-XD Code Onset Dates Condition Status SNOMED Code Problem retirement current use of insulin Z79.4 Active 392020903 Problem Hyperlipidemia, unspecified hyperlipidemia type E78.5 Active 59849473 Problem Gastroparesis K31.84 Active 536505359 Problem PVD (peripheral vascular disease) I73.9 Active 358759410 Problem Anticoagulated by anticoagulation treatment Z79.01 Active 107766756 Problem Iron deficiency anemia due to chronic blood loss D50.0 Active 423599374 Problem Type 2 diabetes mellitus with foot ulcer E11.621 Active 9306530895005 Problem Type 2 diabetes mellitus without complications E11.9 Active 078445033 Problem Dysfunctional uterine bleeding N93.8 Active 32422486 Problem 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, 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 Active [id number] ALLERGIES Substance Reaction Event Type Date Status Penicillin V Potassium hives Drug Allergy Dec, Active ENCOUNTERS Encounter Location Date Diagnosis [place] [id number] [place] [address] 79900- 0866 Apr, Other fluid overload E87.79 and Hyperlipidemia, unspecified hyperlipidemia type E78.5 [facility] [place] [id number] [place] [address] 29143- 4554 Apr, [facility] [place] [address] [place] [id number] [place] [address] 72831- 0350 Apr, [facility] [place] [id number] [place] [address] 95044- 0595 Apr, [facility] [place] [id number] [place] [address] 54041- 7277 Apr, [place] [id number] [place] [address] 51023- 4566 March, Acute embolism and thrombosis of left femoral vein I82.412 [place] [address] [place] [id number] [place] [address] 33106- 0891 March, PVD (peripheral vascular disease) I73.9 [place] [address] [address]- 5729 March, Encounter for medication monitoring Z51.81 ; Iron deficiency anemia due to chronic blood loss D50.0 and Anticoagulated by anticoagulation treatment Z79.01 [place] [address] [place] [id number] [place] [address] 88526- 4132 March, Encounter for medication monitoring Z51.81 [place] [address] [place] [id number] [place] [address] 72652- 9099 March, Iron deficiency anemia due to chronic blood loss D50.0 ; Type 2 diabetes mellitus with foot ulcer E11.621 and Dysfunctional uterine bleeding N93.8 [place] [address] [place] [id number] [place] [address] 01997- 3654 Feb, PVD (peripheral vascular disease) I73.9 [place] [address] [place] [id number] [place] [address] 58799- 0531 Jan, [place] [address] [place] [id number] [place] [address] 56583- 5619 Jan, PVD (peripheral vascular disease) I73.9 [place] [address] [place] [id number] [place] [address] 45644- 1060 Dec, PVD (peripheral vascular disease) I73.9 [place] [address] [place] [id number] [place] [address] 91421- 6920 Dec, Pale complexion R23.1 and Severe anemia D64.9 [place] [address] [place] [id number] [place] [address] 34325- 2257 Nov, PVD (peripheral vascular disease) I73.9 [facility] [place] [address] [address] 9400 09 Nov, 2017 PVD (peripheral vascular disease) I73.9 [facility] [place] [address] [address]- 1371 07 Oct, 2017 PVD (peripheral vascular disease) I73.9 [facility] [place] [address] [id number] [place] [address] 47680- 0344 Sep, PVD (peripheral vascular disease) I73.9 [facility] [place] [address] [place] [id number] [place] [address] 98222- 0179 16 Aug, 2017 PVD (peripheral vascular disease) I73.9 [facility] [place] [address] [place] [address] [id number] [place] [address] 20350- 1481 18 Jul, 2017 PVD (peripheral vascular disease) I73.9 [place] [address] [place] [id number] [place] [address] 60077- 6721 Jun, Type 2 diabetes mellitus without complications E11.9 ; Hyperlipidemia, unspecified hyperlipidemia type E78.5 and PVD (peripheral vascular disease) I73.9 [place] [id number] [place] [address] 77312- 6956 Jun, [place] [address] [address]- 9206 Jun, Long-term use of high-risk medication Z79.899 [facility] [place] [address] [address]- 2823 May, [place] [id number] [place] [address] 30745- 6173 May, Osteomyelitis, unspecified M86.9 [facility] [place] [address] [address]- 0254 09 Apr, 2017 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, 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 [place] [address] [place] [id number] [place] [address] 63498- 4244 March, Osteomyelitis, unspecified M86.9 [place] [address] [place] [id number] [place] [address] 81924- 3998 Feb, 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, 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 [place] [address] [place] [id number] [place] [address] 355520- 0934 Jan, 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, 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 [place] [address] [place] [id number] [place] [address] 17011- 2767 Jan, Type 2 diabetes mellitus without complications E11.9 ; retirement current use of insulin Z79.4 ; Hyperlipidemia, unspecified hyperlipidemia type E78.5 ; Long-term use of high-risk medication Z79.899 and PVD (peripheral vascular disease) I73.9 [place] [id number] [place] [address] 33025- 9659 Dec, Cellulitis of right lower limb L03.115 [place] [address] [place] [id number] [place] [address] 25919- 1344 Dec, [place] [id number] [place] [address] 55678- 9203 Nov, 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, 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 [place] [address] [place] [id number] [place] [address] 00140- 7755 Nov, [place] [address] [place] [id number] [place] [address] 53019- 6200 Nov, [place] [address] [place] [id number] [place] [address] 655700- 8349 Oct, Other fluid overload E87.79 and Acute embolism and thrombosis of left femoral vein I82.412 [place] [address] [place] [id number] [place] [address] 53212522- 8937 Oct, [address] [address]- 2458 Oct, [facility] [place] [address] [address] [id number] [place] [address] 93229- 5001 Oct, PVD (peripheral vascular disease) I73.9 [facility] [place] [address] [place] [id number] [place] [address] 42706- 4137 Oct, Other fluid overload E87.79 and Acute embolism and thrombosis of left femoral vein I82.412 [facility] [place] [address] [place] [id number] [place] [address] 38460- 9298 Oct, [place] [address] [place] [id number] [place] [address] 95767- 6350 09 Oct, 2016 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, 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 [place] [address] [place] [id number] [place] [address] 99445- 9785 10 Sep, 2016 [place] [address] [place] [id number] [place] [address] 71341- 2895 Sep, [facility] [place] [address] [place] [id number] [place] [address] 05164- 8059 08 Sep, 2016 PVD (peripheral vascular disease) I73.9 [place] [id number] [place] [address] 15345- 4082 07 Aug, 2016 Type 2 diabetes mellitus with foot ulcer E11.621 and PVD ( peripheral vascular disease) I73.9 [facility] [place] [address] [address]- 9334 30 Jul, 2016 [facility] [place] [address] [address]- 0891 13 Jul, 2016 [facility] [place] [address] [place] [id number] [place] [address] 54047- 1726 Jul, [facility] [place] [address] [address]- 1373 Jul, [facility] [place] [id number] [address]- 4693 Jun, [facility] [place] [address] [place] [id number] [address]- 0716 Jun, [facility] [place] [address] [place] [id number] [address]- 0280 Jun, [facility] [place] [address] [address]- 0900 May, [facility] [place] [address] [address]- 6594 May, PVD (peripheral vascular disease) I73.9 ; Type 2 diabetes mellitus without complications E11.9 ; 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 and Hyperlipidemia, unspecified hyperlipidemia type E78.5 [facility] [place] [address], [place] [address]- 7024 May, [facility] [place] [address] [address]- 3153 May, [facility] [place] [address] [address]- 2115 May, [facility] [place] [address] [address]- 5083 Feb, [facility] [place] [address] [address]- 1933 Feb, [facility] [place] [address] [address]- 2308 Jan, [facility] [place] [address] [place] [id number] [address]- 5755 Jan, [facility] [place] [address] [address]- 3308 Dec, [facility] [place] [address] [place] [id number]- 6861 Dec, [facility] [place] [address] [address]- 0924 Oct, [facility] [place] [facility] [address] [id number] [place] [address]- 9890 Oct, [facility] [place] [facility] [address] [id number] [place] [address]- 7550 Sep, [facility] [place] [facility] [address] [facility] [id number] [place] [address]- 0199 Sep, [facility] [place] [facility] [address] [id number] [place] [address]- 6226 Sep, [facility] [place] [facility] [address] [id number] [place] [address]- 9439 Sep, [facility] [place] [facility] [address] [facility] [id number] [place] [address]- 9022 Aug, [facility] [place] [facility] [address] [facility] [id number] [place] [address]- 9505 Aug, [facility] [place] [facility] [address] [facility] [id number] [place] [address]- 7521 Jul, [facility] [place] [facility] [address] [facility] [id number] [place] [address]- 9532 Jul, [facility] [place] [facility] [address] [facility] [id number] [place] [address]- 0882 Apr, [facility] [place] [facility] [address] [facility] [id number] [address]- 8638 Apr, [facility] [place] [facility] [address] [facility] [id number] [address]- 2441 Feb, [facility] [place] [facility] [address] [id number] [place] 6582 Feb, [facility] [place] [facility] [address] [facility] [id number] [place] [address]- 0300 Jan, [facility] [place] [facility] [address] [facility] [id number] [place] 0416 Jan, [facility] [place] [facility] [address] [id number] [place] [address]- 9940 Dec, [facility] [address] [id number] [place] [address]- 8305 Dec, [facility] [place] [facility] [address] [id number] [place] [address]- 6277 Oct, [facility] [place] [facility] [address] [id number] [place] [address]- 5941 Oct, [facility] [place] [facility] [address] [id number] [place] [address]- 0451 Sep, [facility] [place] [facility] [address] [id number] [place] [address]- 7048 Sep, [facility] [place] [facility] [address] [facility] [id number] [place] 9202 Sep, [facility] [place] [facility] [address] [id number] [place] [address]- 8148 Sep, [facility] [place] [facility] [address] [id number] [place] [address]- 2171 Sep, [facility] [place] [facility] [address] [id number] [place] [address]- 6590 Sep, [facility] [place] [facility] [address] [facility] [id number] [place] [address]- 6346 Aug, [facility] [place] [facility] [address] [id number] [place] [address]- 6182 Jul, [facility] [place] [facility] [address] [id number] [place] [address]- 4676 Jun, [facility] [place] [facility] [address] [id number] [place] [address]- 6296 May, [facility] [place] [facility] [address] [id number] [place] [address]- 6865 Apr, [facility] [place] [facility] [address] [id number] [place] [address]- 2972 Apr, [facility] [address] [id number] [place] [address]- 8960 Apr, [facility] [place] [facility] [address] [id number] [place] [address]- 4806 March, [facility] [place] [facility] [address] [id number] [place] [address]- 6282 15 Jan, 2013 [facility] [place] [facility] [address] [id number] [place] [address]- 1454 10 Jan, 2013 [facility] [place] [facility] [address] [id number] [place] [address]- 0404 08 Jan, 2013 [facility] [place] [facility] [address] [id number] [place] [address]- 9733 07 Jan, 2013 [facility] [place] [facility] [address] [id number] [place] [address]- 0576 Jan, [facility] [place] [facility] [address] [id number] [place] [address]- 2152 Dec, [facility] [place] [facility] [address] [id number] [place] [address]- 8568 18 Dec, 2012 [facility] [place] [facility] [address] [id number] [place] [address]- 7646 Dec, [facility] [place] [facility] [address] [id number] [place] [address]- 0136 07 Dec, 2012 [facility] [place] [facility] [address] [id number] [place] [address] 2544 05 Dec, 2012 [facility] [place] [facility] [address] [id number] [place] [address]- 0557 Nov, [facility] [place] [facility] [address] [id number] [place] [address]- 4916 Nov, [facility] [place] [facility] [address] [id number] [place] [address]- 3036 Nov, [facility] [place] [facility] [address] [id number] [place] [address]- 6330 Nov, [facility] [address] [id number] [place] [address]- 5355 Nov, [facility] [place] [facility] [address] [id number] [place] [address]- 2895 Nov, [facility] [address] [id number] [place] [address]- 0560 Nov, [facility] [place] [facility] [address] [id number] [place] [address]- 9203 Nov, [facility] [address] [id number] [place] [address]- 7782 Nov, [facility] [address] [id number] [place] [address]- 0016 Sep, [facility] [address] [id number] [place] [address]- 7626 14 Sep, 2012 [facility] [address] [id number] [place] [address]- 5597 25 Jul, 2012 [facility] [place] [facility] [address] [id number] [place] [address]- 3187 17 Jul, 2012 [facility] [address] [id number] [place] [address]- 9860 11 Jul, 2012 [facility] [place] [facility] [address] [id number] [place] [address]- 8773 10 Jul, 2012 [facility] [place] [facility] [address] [id number] [place] [address] 254 05 Jul, 2012 [facility] [place] [facility] [address] [id number] [place] [address]- 2615 05 Jul, 2012 [facility] [place] [facility] [address] [id number] [place] [address]- 0472 Jun, [facility] [place] [facility] [address] [id number] [place] [address]- 7510 Jun, [facility] [place] [facility] [address] [id number] [place] [address]- 9966 18 Jun, 2012 [facility] [place] [facility] [address] [id number] [place] [address]- 8534 17 Jun, 2012 [facility] [place] [facility] [address] [id number] [place] [address]- 4786 16 Jun, 2012 [facility] [place] [facility] [address] [id number] [place] [address]- 7382 14 Jun, 2012 [facility] [place] [facility] [address] [id number] [place] [address]- 9460 14 Jun, 2012 [facility] [place] [facility] [address] [id number] [place] [address]- 7532 10 Jun, 2012 [facility] [place] [facility] [address] [id number] [place] [address]- 6778 30 May, 2012 [facility] [place] [facility] [address] [id number] [place] [address]- 8149 14 May, 2012 [facility] [place] [facility] [address] [id number] [place] [address]- 6446 Apr, [facility] [place] [facility] [address] [id number] [place] [address]- 6120 March, [facility] [place] [facility] [address] [id number] [place] [address]- 5504 March, [facility] [place] [facility] [address] [id number] [place] [address]- 1191 March, [facility] [place] [facility] [address] [id number] [place] [address]- 3860 March, [facility] [place] [facility] [address] [id number] [place] [address]- 1923 27 Feb, 2012 [facility] [place] [facility] [address] [id number] [place] [address]- 1579 13 Feb, 2012 [facility] [place] [facility] [address] [facility] [id number] [place] [address]- 0660 Feb, [facility] [address] [id number] [place] [address]- 7862 Jan, [facility] [address] [facility] [id number] [place] [address]- 1806 Dec, [facility] [address] [facility] [id number] [place] [address]- 1296 Dec, [facility] [address] [id number] [place] [address]- 3636 Dec, [facility] [address] [facility] [id number] [place] [address], [place] [address]- 7888 Dec, [facility] [address] [facility] [id number] [place] [address]- 265[address] Dec, [facility] [id number] [place] [address] Nov, [facility] [address] [facility] [id number] [place] [address] Oct, [facility] [id number] [place] [address] Sep, [facility] [address] [facility] [id number] [place] [address] Sep, [facility] [id number] [place] [address] Aug, [facility] [address] [facility] [id number] [address] Aug, [facility] [address] [id number] [place] [address] Nov[facility] [address] [facility] [id number] [place] [address] Aug, [facility] [id number] [address] March, IMMUNIZATIONS No Known Immunizations SOCIAL HISTORY Never Assessed REASON FOR VISIT Pain management (chronic)- Cindy Pichardo RN, PHQ2, DAST, UDS, A1C PLAN OF CARE Activity Details Follow Up 1 Week Reason: VITAL SIGNS Height 71 in 2017-12-29 Temperature 98.2 degrees Fahrenheit 2017-12-29 Heart Rate 78 bpm 2017-12-29 Respiratory Rate 18 2017-12-29 Blood pressure systolic 122 mmHg 2017-12-29 Blood pressure diastolic 62 mmHg 2017-12-29 MEDICATIONS Medication Instructions Dosage Frequency Start Date End Date Duration Status Lasix 40 mg Orally Once a day 1 tablet 24h Active Aspirin 325 MG Orally Once a day 1 tablet 24h Active Metformin HCl 500 MG Orally Twice a day 1 tablet with meals 12h Active Lancets 1 by Subcutaneous route 3 times per day March, Active Lisinopril 5 mg Orally Once a day 1 tablet 24h Active Levemir FlexTouch 100 UNIT/ML Subcutaneous Once a day 45 units at bedtime 24h Oct, Active Hydrocodone-Acetaminophen 7.5-325 MG Orally 3 times a day 1 tablet 8h Nov, 28 days Active Lovastatin 40 mg Orally Once a day 1 tablet with a meal 24h Jun, 30 day(s) Active Humalog KwikPen 100 UNIT/ML Subcutaneous 3 times a day 12 units before meals 8h Oct, Active RESULTS Name Result Date Reference Range HEMOGLOBIN (IN HOUSE) 2017-12-29 HEMOGLOBIN 4.6 11.5 - 16 gm/dL Lot # [id number] Exp date 10/17/2018 PROCEDURES Procedure Date Ordered Result Body Site HEMOGLOBIN Dec 29, 2017 INSTRUCTIONS MEDICATIONS ADMINISTERED No Known Medications MEDICAL (GENERAL) HISTORY Type Description Date Medical History LEFT below knee amputation Medical History Diabetes, Type II Medical History Hypertension Medical History Hyperlipidemia Surgical History Judithmehnaz William ZUNIGA Blood Clot/Gangrene 06/25/2016 Surgical History 2 csections Surgical History gallstone removal Surgical History Left BKA Hospitalization History Surgery Hospitalization History Bilat Pleural Effusions, Volume Overload 08/07/16 Hospitalization History Fluid in lungs 08/22/16 Hospitalization History Left below knee amputation 10/2016
--- OUTSIDE RECORDS SUMMARY | 2018-08-06 00:49 | XMS REPORT ---
Author Author YANI CESAR [facility] Address [address] [place] [address] Care Team Providers Care Box Turner Name Role Phone YANI CESAR Unavailable PROBLEMS Type Condition ICD9-CM Code YNR35-XM Code Onset Dates Condition Status SNOMED Code Problem MCFP current use of insulin Z79.4 Active 007613647 Problem Hyperlipidemia, unspecified hyperlipidemia type E78.5 Active 23512349 Problem Gastroparesis K31.84 Active 241051480 Problem PVD (peripheral vascular disease) I73.9 Active 080961813 Problem Anticoagulated by anticoagulation treatment Z79.01 Active 833273605 Problem Iron deficiency anemia due to chronic blood loss D50.0 Active 297289243 Problem Type 2 diabetes mellitus with foot ulcer E11.621 Active 7450676415117 Problem Type 2 diabetes mellitus without complications E11.9 Active 546113994 Problem Dysfunctional uterine bleeding N93.8 Active 61994433 Problem Atherosclerosis of [place] arteries of extremities with gangrene, 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 Active [id number] ALLERGIES No Information ENCOUNTERS Encounter Location Date Diagnosis [facility] [id number] [place] [address] 90801- 0045 Apr, [facility] [id number] [place] [address] 47766- 3182 Apr, [facility] [id number] [place] [address] 17733- 5323 Apr, [facility] [address] [address]30- 3858 Apr, [facility] [id number] [place] [address] 05107- 9150 March, Acute embolism and thrombosis of left femoral vein I82.412 [facility] [address] [address]- 1925 March, PVD (peripheral vascular disease) I73.9 [place] [id number] [place] [address] 72012- 9292 March, Encounter for medication monitoring Z51.81 ; Iron deficiency anemia due to chronic blood loss D50.0 and Anticoagulated by anticoagulation treatment Z79.01 [place] [id number] [place] [address] 85188- 1536 March, Encounter for medication monitoring Z51.81 [facility] [id number] [place] [address] 40121- 0581 March, Iron deficiency anemia due to chronic blood loss D50.0 ; Type 2 diabetes mellitus with foot ulcer E11.621 and Dysfunctional uterine bleeding N93.8 [place] [id number] [place] [address] 96788- 1476 Feb, PVD (peripheral vascular disease) I73.9 [facility] [place] [id number] [place] [address] 68302- 9480 Jan, [facility] [place] [id number] [place] [address] 61067- 0247 Jan, PVD (peripheral vascular disease) I73.9 [place] [id number] [place] [address] 08433- 7182 Dec, PVD (peripheral vascular disease) I73.9 [place] [id number] [place] [address] 84392- 9058 Dec, Pale complexion R23.1 and Severe anemia D64.9 [facility] [place] [id number] [place] [address] 25779- 7271 Nov, PVD (peripheral vascular disease) I73.9 [facility] [place] [id number] [place] [address] 36472- 2948 Nov, PVD (peripheral vascular disease) I73.9 [facility] [address] [address] 0641 07 Oct, 2017 PVD (peripheral vascular disease) I73.9 [facility] [id number] [place] [address] 19367- 3951 Sep, PVD (peripheral vascular disease) I73.9 [facility] [address], [place] [address]- 8258 16 Aug, 2017 PVD (peripheral vascular disease) I73.9 [facility] [id number] [place] [address] 85762- 6639 Jul, PVD (peripheral vascular disease) I73.9 [place] [id number] [place] [address] 59938- 6747 Jun, Type 2 diabetes mellitus without complications E11.9 ; Hyperlipidemia, unspecified hyperlipidemia type E78.5 and PVD (peripheral vascular disease) I73.9 [place] [id number] [place] [address] 24259- 0609 Jun, [place] [id number] [place] [address] 93144- 8078 Jun, Long-term use of high-risk medication Z79.899 [facility] [place] [address] [address]- 5561 May, [place] [id number] [place] [address] 14549- 5211 May, Osteomyelitis, unspecified M86.9 [place] [address] [address]- 3061 Apr, Atherosclerosis of [place] arteries of extremities with gangrene, 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 [facility] [place] [id number] [place] [address] 63683- 6613 March, Osteomyelitis, unspecified M86.9 [place] [address] [address]- 3442 Feb, Atherosclerosis of [place] arteries of extremities with gangrene, 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 [facility] [id number] [place] [address] 09510- 6469 17 Jan, 2017 Atherosclerosis of [place] arteries of extremities with gangrene, 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 [facility] [id number] [place] [address] 77019- 6624 17 Jan, 2017 Type 2 diabetes mellitus without complications E11.9 ; [facility]FP current use of insulin Z79.4 ; Hyperlipidemia, unspecified hyperlipidemia type E78.5 ; Long-term use of high-risk medication Z79.899 and PVD (peripheral vascular disease) I73.9 [place] [address] 50108- 3230 Dec, Cellulitis of right lower limb L03.115 [facility] [address] 46905- 8486 Dec, [place] [address] 09661- 5858 Nov, Atherosclerosis of [place] arteries of extremities with gangrene, 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 [facility] [address] 09009- 0376 Nov, [place] [id number] [place] [address] 50830- 5601 Nov, [place] [id number] [place] [address] 01580- 9408 Oct, Other fluid overload E87.79 and Acute embolism and thrombosis of left femoral vein I82.412 [place] [id number] [place] [address] 22788- 3536 Oct, [place] [place] [address] 30562- 1183 Oct, [facility] [id number] [place] [address] 61602- 0346 Oct, PVD (peripheral vascular disease) I73.9 [facility] [address] [address]- 2486 Oct, Other fluid overload E87.79 and Acute embolism and thrombosis of left femoral vein I82.412 [facility] [id number] [address] 2546 Oct, [facility] [id number] [place] [address] 18038 2546 Oct, Atherosclerosis of [place] arteries of extremities with gangrene, 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 [facility] [address], [place] [address] 2546 Sep, [facility] [id number] [place] [address] 72529- 8846 Sep, [facility] [id number] [place] [address] 89518- 8436 Sep, PVD (peripheral vascular disease) I73.9 [facility] [address], [place] [address] 2547 Aug, Type 2 diabetes mellitus with foot ulcer E11.621 and PVD ( peripheral vascular disease) I73.9 [facility] [address], [place] [address]- 9836 30 Jul, 2016 [facility] [address], [place] [address] 2546 Jul, [facility] [address], [place] [address] 2546 Jul, [facility] [address], [place] [address] 2546 Jul, [facility] [id number] [place] [address] 61057 2546 Jun, [facility] [address], [place] [address] 2546 Jun, [facility] [id number] [address]- 1858 Jun, [facility] [address] [address]- 8978 May, [facility] [address], [place] [address]- 3596 May, PVD (peripheral vascular disease) I73.9 ; Type 2 diabetes mellitus without complications E11.9 ; 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 and Hyperlipidemia, unspecified hyperlipidemia type E78.5 [facility] [address], [place] [address]- 2622 May, [facility] [id number] [place] [address] 33565- 4435 May, [facility] [id number] [address]- 1507 May, [facility] [id number] [place] [address] 76837- 9141 Feb, [facility] [address], [place] [address]- 8571 Feb, [facility] [address], [place] [address]- 4511 Jan, [facility] [address], [place] [address]- 9172 Jan, [facility] [address], [place] [address]- 0315 Dec, [facility] [address], [place] [address]- 3596 Dec, [facility] [address] 1694 Oct, [facility] [address], [place] [address]- 6225 Oct, [facility] [address], [place] [address]- 1295 Sep, [facility] [place] [facility] [address] [id number] [place] [address]- 3087 Sep, [facility] [place] [facility] [address] [id number] [place] [address]- 0762 Sep, [facility] [place] [facility] [address] [id number] [place] [address]- 4177 Sep, [facility] [place] [facility] [address] [id number] [place] [address]- 0134 Aug, [facility] [place] [facility] [address] [id number] [place] [address]- 3186 Aug, [facility] [place] [facility] [address] [id number] [place] [address]- 3446 Jul, [facility] [place] [facility] [address] [id number] [place] [address]- 2004 Jul, [facility] [place] [facility] [address] [id number] [place] [address]- 1013 Apr, [facility] [place] [facility] [address] [id number] [place] [address]- 1776 Apr, [facility] [place] [facility] [address] [id number] [place] [address]- 6898 Feb, [facility] [place] [facility] [address] [id number] [place] [address]- 5450 Feb, [facility] [place] [facility] [address] [id number] [address]- 3179 Jan, [facility] [place] [facility] [address] [id number] [place] 1115 Jan, [facility] [place] [facility] [address] [id number] [place] 6720 Dec, [facility] [place] [facility] [address] [id number] [place] 5989 Dec, [facility] [place] [facility] [address] [id number] [place] [address]- 2546 Oct, [facility] [address] [id number] [place] [address]- 6461 Oct, [facility] [place] [facility] [address] [id number] [place] [address] 2546 Sep, [facility] [place] [facility] [address] [id number] [place] [address]- 6967 Sep, [facility] [place] [facility] [address] [id number] [place] [address]- 2545 Sep, [facility] [place] [facility] [address] [id number] [place] [address]- 1884 Sep, [facility] [place] [facility] [address] [id number] [place] [address]- 3463 Sep, [facility] [place] [facility] [address] [id number] [place] [address]- 1370 Sep, [facility] [place] [facility] [address] [id number] [place] [address]- 4357 Aug, [facility] [place] [facility] [address] [id number] [place] [address]- 0351 Jul, [facility] [place] [facility] [address] [id number] [place] [address]- 7143 Jun, [facility] [place] [facility] [address] [id number] [place] [address]- 2546 May, [facility] [place] [facility] [address] [id number] [place] [address]- 4347 Apr, [facility] [place] [facility] [address] [id number] [place] [address]- 2546 Apr, [facility] [place] [facility] [address] [id number] [place] [address]- 2546 Apr, [facility] [place] [facility] [address] [id number] [place] [address] 2542 March, [facility] [address] [id number] [place] [address]- 6681 15 Jan, 2013 [facility] [place] [facility] [address] [id number] [place] [address]- 8333 10 Jan, 2013 [facility] [place] [facility] [address] [id number] [place] [address]- 6123 08 Jan, 2013 [facility] [place] [facility] [address] [id number] [place] [address]- 2923 07 Jan, 2013 [facility] [place] [facility] [address] [id number] [place] [address]- 4556 06 Jan, 2013 [facility] [place] [facility] [address] [id number] [place] [address]- 1825 19 Dec, 2012 [facility] [place] [facility] [address] [id number] [place] [address]- 6674 18 Dec, 2012 [facility] [place] [facility] [address] [id number] [place] [address]- 5222 Dec, [facility] [place] [facility] [address] [id number] [place] [address]- 1247 07 Dec, 2012 [facility] [place] [facility] [address] [id number] [place] [address]- 6135 05 Dec, 2012 [facility] [place] [facility] [address] [id number] [place] [address]- 8393 Nov, [facility] [place] [facility] [address] [id number] [place] [address]- 1798 Nov, [facility] [place] [facility] [address] [id number] [place] [address]- 0850 Nov, [facility] [place] [facility] [address] [id number] [place] [address]- 4324 Nov, [facility] [place] [facility] [address] [id number] [place] [address]- 3896 Nov, [facility] [place] [facility] [address] [id number] [place] [address]- 7533 Nov, [facility] [address] [id number] [place] [address]- 7800 Nov, [facility] [address] [id number] [place] [address]- 8924 Nov, [facility] [address] [id number] [place] [address]- 6751 Nov, [facility] [address] [id number] [place] [address]- 1245 Sep, [facility] [address] [id number] [place] [address]- 4165 14 Sep, 2012 [facility] [address] [id number] [place] [address]- 7092 25 Jul, 2012 [facility] [address] [id number] [place] [address]- 6035 17 Jul, 2012 [facility] [address] [id number] [place] [address]- 7346 11 Jul, 2012 [facility] [address] [id number] [place] [address]- 6551 10 Jul, 2012 [facility] [address] [id number] [place] [address]- 3420 05 Jul, 2012 [facility] [address] [id number] [place] [address] 2544 05 Jul, 2012 [facility] [address] [id number] [place] [address]- 5439 28 Jun, 2012 [facility] [place] [facility] [address] [id number] [place] [address]- 1796 20 Jun, 2012 [facility] [place] [facility] [address] [id number] [place] [address]- 1137 18 Jun, 2012 [facility] [address] [id number] [place] [address]- 0738 17 Jun, 2012 [facility] [place] [facility] [address] [id number] [place] [address]- 4946 16 Jun, 2012 [facility] [place] [facility] [address] [id number] [place] [address]- 8689 Jun, [facility] [place] [facility] [address] [id number] [place] [address]- 1315 Jun, [facility] [place] [facility] [address] [id number] [place] [address]- 4846 Jun, [facility] [place] [facility] [address] [id number] [place] [address]- 8595 May, [facility] [place] [facility] [address] [id number] [place] [address]- 0293 May, [facility] [place] [facility] [address] [id number] [place] [address]- 1061 Apr, [facility] [place] [facility] [address] [id number] [place] [address]- 9373 March, [facility] [place] [facility] [address] [id number] [place] [address]- 8098 March, [facility] [place] [facility] [address] [id number] [place] [address]- 3359 March, [facility] [place] [facility] [address] [id number] [place] [address]- 1646 March, [facility] [place] [facility] [address] [id number] [place] [address]- 1251 Feb, [facility] [place] [facility] [address] [id number] [place] [address]- 5742 Feb, [facility] [place] [facility] [address] [id number] [place] [address]- 8842 Feb, [facility] [place] [facility] [address] [id number] [place] [address]- 2714 Jan, [facility] [place] [facility] [address] [id number] [address]- 0652 Dec, [facility] [address], [place] [address]- 3654 Dec, [facility] [address], [place] [address]- 1486 Dec, [facility] [address], [place] [address]- 9676 Dec, [facility] [address], [place] [address]- 4900 Dec, [facility] [id number] [place] [address] 58226- 9510 Nov, [facility] [id number] [place] [address] 586664- 5636 Oct, [facility] [id number] [place] [address] 48499- 4908 Sep, [facility] [address], [place] [address]- 9731 Sep, [facility] [id number] [place] [address] 64433- 0161 Aug, [facility] [address], [place] [address]- 0406 Aug, [facility] [address], [place] [address]- 3773 Nov, [facility] [address], [place] [address]- 6535 Aug, [facility] [address], [place] [address]- 2876 March, IMMUNIZATIONS No Known Immunizations SOCIAL HISTORY Never Assessed REASON FOR VISIT Controlled Med Refill PLAN OF CARE VITAL SIGNS MEDICATIONS Medication Instructions Dosage Frequency Start Date End Date Duration Status Hydrocodone-Acetaminophen 7.5-325 MG Orally 3 times a day 1 tablet 8h Nov, 28 days Active RESULTS No Results PROCEDURES [...]
--- OUTSIDE RECORDS SUMMARY | 2018-08-06 00:50 | XMS REPORT ---
Author Author YANI CESAR [facility] Address [address] [place] [address] Care Team Providers Care Program Services Assistant Name Role Phone YANI CESAR Unavailable PROBLEMS Type Condition ICD9-CM Code FOW43-UJ Code Onset Dates Condition Status SNOMED Code Problem FCI current use of insulin Z79.4 Active 342938800 Problem Hyperlipidemia, unspecified hyperlipidemia type E78.5 Active 29385963 Problem Gastroparesis K31.84 Active 073405316 Problem PVD (peripheral vascular disease) I73.9 Active 368897624 Problem Anticoagulated by anticoagulation treatment Z79.01 Active 139444903 Problem Iron deficiency anemia due to chronic blood loss D50.0 Active 694449663 Problem Type 2 diabetes mellitus with foot ulcer E11.621 Active 6337989119314 Problem Type 2 diabetes mellitus without complications E11.9 Active 251850212 Problem Dysfunctional uterine bleeding N93.8 Active 40771658 Problem Atherosclerosis of [place] arteries of extremities with gangrene, 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 Active [id number] ALLERGIES No Information ENCOUNTERS Encounter Location Date Diagnosis [place] [id number] [place] [address] 78814- 5478 Apr, [place] [address] [place] [id number] [place] [address] 43175- 7229 14 Apr, 2018 [place] [id number] [place] [address] 10708- 5710 Apr, [place] [address] 19312- 9693 March, Acute embolism and thrombosis of left femoral vein I82.412 [place] [address] [place] [id number] [place] [address] 20316- 1590 March, PVD (peripheral vascular disease) I73.9 [place] [address] [place] [id number] [address] March, Encounter for medication monitoring Z51.81 ; Iron deficiency anemia due to chronic blood loss D50.0 and Anticoagulated by anticoagulation treatment Z79.01 [place] [address] [id number] [address] 7079 March, Encounter for medication monitoring Z51.81 [place] [address] [place] [id number] [place] [address] 83241- 6200 March, Iron deficiency anemia due to chronic blood loss D50.0 ; Type 2 diabetes mellitus with foot ulcer E11.621 and Dysfunctional uterine bleeding N93.8 [place] [address] [place] [id number] [place] [address] 48891- 3031 Feb, PVD (peripheral vascular disease) I73.9 [place] [address] [place] [id number] [place] [address] 34183- 0372 Jan, [place] [address] [place] [id number] [place] [address] 29164- 1253 Jan, PVD (peripheral vascular disease) I73.9 [place] [address] [place] [id number] [place] [address] 50197- 4092 Dec, PVD (peripheral vascular disease) I73.9 [place] [address] [place] [id number] [place] [address] 51066- 7971 Dec, Pale complexion R23.1 and Severe anemia D64.9 [place] [address] [place] [id number] [place] [address] 20067- 4623 Nov, PVD (peripheral vascular disease) I73.9 [place] [address] [place] [id number] [place] [address] 47501- 2990 Nov, PVD (peripheral vascular disease) I73.9 [place] [address] [place] [id number] [place] [address] 40842- 5369 Oct, PVD (peripheral vascular disease) I73.9 [facility] [place] [id number] [place] [address] 19699- 6329 13 Sep, 2017 PVD (peripheral vascular disease) I73.9 [facility] [place] [address] [place] [id number] [place] [address] 98861- 8349 16 Aug, 2017 PVD (peripheral vascular disease) I73.9 [facility] [place] [address] [place] [id number] [place] [address] 40622- 7028 Jul, PVD (peripheral vascular disease) I73.9 [place] [address] [place] [id number] [place] [address] 39356- 3781 Jun, Type 2 diabetes mellitus without complications E11.9 ; Hyperlipidemia, unspecified hyperlipidemia type E78.5 and PVD (peripheral vascular disease) I73.9 [place] [address] [place] [id number] [place] [address] 49182- 8450 Jun, [place] [address] [place] [id number] [place] [address] 90582- 3998 Jun, Long-term use of high-risk medication Z79.899 [place] [address] [place] [id number] [place] [address] 65286- 7072 May, [place] [address] [place] [id number] [place] [address] 75841- 5817 May, Osteomyelitis, unspecified M86.9 [place] [address] [place] [id number] [place] [address] 16553- 0163 09 Apr, 2017 Atherosclerosis of [place] arteries of extremities with gangrene, 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 [place] [address] [place] [id number] [place] [address] 13486- 4138 16 Mar, 2017 Osteomyelitis, unspecified M86.9 [place] [address] [place] [id number] [place] [address] 26926- 7005 17 Feb, 2017 Atherosclerosis of [place] arteries of extremities with gangrene, 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 [place] [address] [place] [id number] [place] [address] 78521- 0330 Jan, Atherosclerosis of [place] arteries of extremities with gangrene, 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 [place] [address] [place] [address] 99391 2546 17 Jan, 2017 Type 2 diabetes mellitus without complications E11.9 ; long term current use of insulin Z79.4 ; Hyperlipidemia, unspecified hyperlipidemia type E78.5 ; Long-term use of high-risk medication Z79.899 and PVD (peripheral vascular disease) I73.9 [place] [address] [place] [id number] [place] [address] 46978 2546 Dec, Cellulitis of right lower limb L03.115 [place] [address] [place] [id number] [place] [address] 32020 2546 Dec, [place] [address] [place] [id number] [place] [address] 65865- 3966 Nov, Atherosclerosis of [place] arteries of extremities with gangrene, 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 [place] [address] [place] [id number] [place] [address] 81285 2546 Nov, [place] [address] [place] [id number] [place] [address] 20158 2546 Nov, [place] [address] [place] [address] 13548 2546 Oct, Other fluid overload E87.79 and Acute embolism and thrombosis of left femoral vein I82.412 [place] [address] [place] [address] 50710 2546 Oct, [place] [address] [place] [address] 34234 2546 Oct, [place] [address] [place] [id number] [place] [address] 92090 2546 Oct, PVD (peripheral vascular disease) I73.9 [place] [address] [place] [address] 37158 2546 Oct, Other fluid overload E87.79 and Acute embolism and thrombosis of left femoral vein I82.412 [facility] [place] [address] [address]- 3906 Oct, [facility] [place] [address] [place] [id number] [place] [address] 71021 2546 Oct, Atherosclerosis of [place] arteries of extremities with gangrene, 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 [facility] [place] [address] [place] [id number] [place] [address] 79135- 8846 Sep, [facility] [place] [address] [place] [id number] [place] [address] 21182- 3606 Sep, [facility] [place] [address] [place] [id number] [place] [address] 73842- 5399 Sep, PVD (peripheral vascular disease) I73.9 [facility] [place] [address] [place] [id number] [place] [address] 26233- 2555 Aug, Type 2 diabetes mellitus with foot ulcer E11.621 and PVD ( peripheral vascular disease) I73.9 [facility] [place] [address] [address]- 9596 30 Jul, 2016 [facility] [place] [address] [place] [id number] [place] [address] 93708- 0386 Jul, [facility] [place] [address] [address] 2546 Jul, [facility] [place] [address], [place] [address] 2546 Jul, [facility] [place] [address], [place] [address]- 3496 Jun, [facility] [place] [address] [place] [id number] [place] [address] 19517 2546 Jun, [facility] [place] [address], [place] [address]- 4316 Jun, [facility] [place] [id number] [address]- 0541 May, [facility] [place] [id number] [address]- 1463 May, PVD (peripheral vascular disease) I73.9 ; Type 2 diabetes mellitus without complications E11.9 ; FCI current use of insulin Z79.4 and Hyperlipidemia, unspecified hyperlipidemia type E78.5 [facility] [place] [address] [place] [id number] [place] [address] 49665- 0882 May, [facility] [place] [address] [id number] [place] [address] 99032- 8961 May, [facility] [place] [address] [place] [id number] [place] [address], [place] [address]- 3158 May, [facility] [place] [id number] [address]- 8685 Feb, [facility] [place] [address] [place] [id number] [place] [address] 26221- 6890 Feb, [facility] [place] [address] [place] [address]- 2343 Jan, [facility] [place] [address], [place] [address]- 5267 Jan, [facility] [place] [address], [place] [address]- 9075 Dec, [facility] [place] [address] [address]- 9995 Dec, [facility] [place] [address] [place] [address]- 1485 Oct, [facility] [place] [address] [id number] [place] [address]- 3362 Oct, [facility] [place] [address], [place] [address]- 3186 Sep, [facility] [place] [address] [address]- 2546 Sep, [facility] [place] [facility] [address] [id number] [place] 6740 Sep, [facility] [place] [facility] [address] [id number] [place] [address]- 5428 Sep, [facility] [place] [facility] [address] [id number] [place] [address]- 7381 Aug, [facility] [place] [facility] [address] [id number] [place] [address]- 1375 Aug, [facility] [place] [facility] [address] [id number] [place] [address]- 6631 Jul, [facility] [place] [facility] [address] [id number] [place] [address]- 9685 Jul, [facility] [place] [facility] [address] [id number] [place] [address]- 6117 Apr, [facility] [place] [facility] [address] [id number] [place] [address]- 6882 Apr, [facility] [place] [facility] [address] [id number] [place] [address]- 9059 Feb, [facility] [place] [facility] [address] [id number] [place] [address]- 1616 Feb, [facility] [place] [facility] [address] [id number] [address]- 3568 Jan, [facility] [place] [facility] [address] [id number] [address]- 2020 Jan, [facility] [place] [facility] [address] [id number] [place] [address]- 5037 Dec, [facility] [place] [facility] [address] [id number] [place] [address]- 7855 Dec, [facility] [place] [facility] [address] [id number] [place] [address]- 5343 Oct, [facility] [place] [facility] [address] [id number] [place] [address]- 2546 Oct, [facility] [address] [id number] [place] [address]- 1836 Sep, [facility] [place] [facility] [address] [id number] [place] [address]- 2546 Sep, [facility] [place] [facility] [address] [id number] [place] [address] 2546 Sep, [facility] [place] [facility] [address] [id number] [place] [address]- 2546 Sep, [facility] [place] [facility] [address] [id number] [place] [address]- 9186 Sep, [facility] [place] [facility] [address] [id number] [place] [address]- 2546 Sep, [facility] [place] [facility] [address] [id number] [place] [address]- 2546 Aug, [facility] [place] [facility] [address] [id number] [place] [address]- 1082 Jul, [facility] [place] [facility] [address] [id number] [place] [address]- 2546 Jun, [facility] [place] [place] [facility] [address] [id number] [place] [address]- 2546 May, [facility] [place] [facility] [address] [id number] [place] [address]- 2546 Apr, [facility] [place] [facility] [address] [id number] [place] [address]- 2546 Apr, [facility] [place] [facility] [address] [id number] [place] [address]- 2546 Apr, [facility] [place] [facility] [address] [id number] [place] [address]- 2546 March, [facility] [place] [facility] [address] [id number] [place] [address]- 4863 Jan, [facility] [place] [facility] [address] [id number] [place] [address]- 2646 10 Jan, 2013 [facility] [place] [facility] [address] [id number] [place] [address]- 0383 08 Jan, 2013 [facility] [place] [facility] [address] [id number] [place] [address]- 1232 07 Jan, 2013 [facility] [place] [facility] [address] [id number] [place] [address]- 4790 06 Jan, 2013 [facility] [place] [facility] [address] [id number] [place] [address]- 0714 19 Dec, 2012 [facility] [place] [facility] [address] [id number] [place] [address]- 7465 18 Dec, 2012 [facility] [place] [facility] [address] [id number] [place] [address]- 5818 11 Dec, 2012 [facility] [place] [facility] [address] [id number] [place] [address]- 7943 07 Dec, 2012 [facility] [place] [facility] [address] [id number] [place] [address]- 4599 05 Dec, 2012 [facility] [place] [facility] [address] [id number] [place] [address]- 5948 Nov, [facility] [place] [facility] [address] [id number] [place] [address]- 9610 Nov, [facility] [place] [facility] [address] [id number] [place] [address]- 1316 Nov, [facility] [place] [facility] [address] [id number] [place] [address]- 5191 Nov, [facility] [place] [facility] [address] [id number] [place] [address]- 2989 Nov, [facility] [place] [facility] [address] [id number] [place] [address]- 9088 Nov, [facility] [place] [facility] [address] [id number] [place] [address]- 2544 Nov, [facility] [address] [id number] [place] [address]- 7949 Nov, [facility] [address] [id number] [place] [address]- 9158 Nov, [facility] [address] [id number] [place] [address]- 6494 14 Sep, 2012 [facility] [address] [id number] [place] [address]- 7216 14 Sep, 2012 [facility] [address] [id number] [place] [address]- 2140 25 Jul, 2012 [facility] [address] [id number] [place] [address]- 2236 17 Jul, 2012 [facility] [address] [id number] [place] [address]- 3546 11 Jul, 2012 [facility] [address] [id number] [place] [address]- 0908 10 Jul, 2012 [facility] [address] [id number] [place] [address]- 4282 05 Jul, 2012 [facility] [address] [id number] [place] [address]- 5068 05 Jul, 2012 [facility] [place] [facility] [address] [id number] [place] [address]- 6040 28 Jun, 2012 [facility] [address] [id number] [place] [address]- 9963 20 Jun, 2012 [facility] [place] [facility] [address] [id number] [place] [address]- 6266 18 Jun, 2012 [facility] [place] [facility] [address] [id number] [place] [address]- 0746 17 Jun, 2012 [facility] [place] [facility] [address] [id number] [place] [address]- 1672 16 Jun, 2012 [facility] [place] [facility] [address] [id number] [place] [address]- 1489 14 Jun, 2012 [facility] [place] [facility] [address] [id number] [place] [address]- 0806 14 Jun, 2012 [facility] [place] [facility] [address] [id number] [place] [address]- 2526 Jun, [facility] [place] [facility] [address] [id number] [place] [address]- 1536 30 May, 2012 [facility] [place] [facility] [address] [id number] [place] [address]- 4638 May, [facility] [place] [facility] [address] [id number] [place] [address]- 9196 Apr, [facility] [place] [facility] [address] [id number] [place] [address]- 0259 March, [facility] [place] [facility] [address] [id number] [place] [address]- 0432 March, [facility] [place] [facility] [address] [id number] [place] [address]- 1524 March, [facility] [place] [facility] [address] [id number] [place] [address]- 4036 March, [facility] [place] [facility] [address] [id number] [place] [address]- 4626 Feb, [facility] [place] [facility] [address] [id number] [place] [address]- 5791 Feb, [facility] [place] [facility] [address] [id number] [place] [address]- 0567 Feb, [facility] [place] [facility] [address] [id number] [place] [address]- 4936 Jan, [facility] [place] [facility] [address] [id number] [place] [address]- 8206 Dec, [facility] [place] [facility] [address] [id number], [place] [address]- 7180 08 Dec, 2011 [facility] [place] [address], [place] [address]- 2937 Dec, [facility] [place] [address], [place] [address]- 1066 Dec, [facility] [place] [address], [place] [address]- 5116 Dec, [facility] [place] [address], [place] [address]- 7798 Nov, [facility] [place] [id number] [place] [address] 71184- 4693 Oct, [facility] [address], [place] [address]- 7278 Sep, [facility] [address] 2516 Sep, [facility] [address], [place] [address]- 9529 Aug, [facility] [address], [place] [address]- 8766 Aug, [facility] [address], [place] [address]- 5407 Nov, [facility] [address] 4658 Aug, [facility] [address], [place] [address]- 8977 March, IMMUNIZATIONS No Known Immunizations SOCIAL HISTORY Never Assessed REASON FOR VISIT Hydrocodone 12/06 PLAN OF CARE VITAL SIGNS MEDICATIONS Medication [...] History Hypertension Medical History Hyperlipidemia Surgical History [facility] [place] Blood Clot/Gangrene 06/25/2016 Surgical History 2 csections Surgical History gallstone removal Surgical History Left BKA Hospitalization History Surgery Hospitalization History Bilat Pleural Effusions, Volume Overload 08/07/16 Hospitalization History Fluid in lungs 08/22/16 Hospitalization History Left below knee amputation 10/2016
[2018-08-06] MEDS ORDERED: NORMAL SALINE 250 ML ONE (02:02)
[2018-08-06] MEDS: 1/2 NS W/KCL 20 MEQ/L 1,000 ML IV SCH ×3 (02:11→09:16)
[2018-08-06] MEDS ORDERED: 1/2 NS W/KCL 20 MEQ/L 1,000 ML IV ONE (02:11)
[2018-08-06 02:23] LABS: BASOPHILS # (AUTO) 0.1 10^3/uL (0.0-0.1); BASOPHILS % (AUTO) 1 % (0-10); EOSINOPHILS # (AUTO) 0.1 10^3/uL (0.0-0.3); EOSINOPHILS % (AUTO) 0 % (0-10); LYMPHOCYTES # (AUTO) 2.4 X 10^3 (1.0-4.0); LYMPHOCYTES % (AUTO) 18 % (12-44); MEAN CORPUSCULAR HEMOGLOBIN 16 PG (25-34); MEAN CORPUSCULAR HGB CONC 26 G/DL (32-36); MEAN CORPUSCULAR VOLUME 64 FL (80-99); MEAN PLATELET VOLUME 9.4 FL (7.4-10.4); MONOCYTES # (AUTO) 1.4 X 10^3 (0.0-1.0); MONOCYTES % (AUTO) 11 % (0-12); NEUTROPHILS # (AUTO) 9.1 X 10^3 (1.8-7.8); NEUTROPHILS % (AUTO) 70 % (42-75); PLATELET COUNT 672 10^3/uL (130-400); RED BLOOD COUNT 3.12 10^6/uL (4.35-5.85); RED CELL DISTRIBUTION WIDTH 23.4 % (10.0-14.5)
[2018-08-06 02:25] LABS: HEMATOCRIT 20 % (35-52); HEMOGLOBIN 5.1 G/DL (11.5-16.0)
[2018-08-06] MEDS ORDERED: NS IV 1000 ML 1,000 ML IV ONE (02:39)
[2018-08-06 02:42] LABS: PHOSPHORUS 3.9 MG/DL (2.3-4.7)
[2018-08-06 02:44] LABS: ALANINE AMINOTRANSFERASE 13 U/L (0-55); ALBUMIN 3.7 GM/DL (3.2-4.5); ALKALINE PHOSPHATASE 87 U/L (40-136); BILIRUBIN,TOTAL 0.2 MG/DL (0.1-1.0); BUN/CREATININE RATIO 17; CALCIUM 9.4 MG/DL (8.5-10.1); CARBON DIOXIDE 23 MMOL/L (21-32); CHLORIDE 97 MMOL/L (98-107); CREATININE SERUM 0.92 MG/DL (0.60-1.30); GFR ESTIMATED > 60; GLUCOSE 261 MG/DL (70-105); POTASSIUM 3.8 MMOL/L (3.6-5.0); SODIUM 134 MMOL/L (135-145); TOTAL PROTEIN 6.6 GM/DL (6.4-8.2)
[2018-08-06] MEDS ORDERED: inSUlin REGULAR TPN/DRIP ONLY 250 UNITS in NORMAL SALINE 250 ML IV SCH (02:45)
[2018-08-06] MEDS ORDERED: RT-ALBUTEROL/IPRATROPIUM 3 ML (DUONEB) VIAL INH PRN (03:00)
[2018-08-06] MEDS ORDERED: PANTOPRAZOLE 40 MG (PROTONIX) VIAL IV SCH (04:30)
[2018-08-06] MEDS ORDERED: NS IV 500 ML 500 ML IV ONE (04:30)
[2018-08-06] MEDS: PANTOPRAZOLE 40 MG (PROTONIX) VIAL IV SCH ×2 (04:54→16:33)
[2018-08-06] MEDS: HYDROcodone/APAP 7.5 MG/325 MG (LORTAB, LORCET PLUS) TABLET PO PRN ×3 (05:04→22:17)
[2018-08-06] MEDS: D5 1/2 NS W/KCL 20 MEQ/L 1,000 ML IV SCH ×3 (05:16→09:16)
[2018-08-06] MEDS: MAGNESIUM 1 GM/100 ML IVPB 100 ML IV SCH (05:24)
[2018-08-06] MEDS: KCL 20 MEQ TAB (K-DUR) PO SCH (05:24)
[2018-08-06] MEDS: POTASSIUM CL 10MEQ/50ML IVPB 50 ML IV SCH (05:24)
[2018-08-06] MEDS: DEXTROSE 10% IV SOLUTION 1,000 ML IV SCH ×2 (05:24→12:22)
[2018-08-06] MEDS: RT-ALBUTEROL/IPRATROPIUM 3 ML (DUONEB) VIAL INH SCH ×2 (06:51→19:22)
--- NOTE | 2018-08-06 07:11 | Diagnostic Imaging Report ---
INDICATION: Diabetic foot. History of left leg amputation. FINDINGS: Color Doppler imaging right lower extremity shows rather dense diffuse atherosclerotic plaquing throughout the right femoral artery. There is hemodynamic stenosis at the level of the adductor canal. The right popliteal artery shows marked dampening of flow with monophasic patterns and peak velocity of 20 cm/s. There is minimal antegrade flow noted at the ankle in the posterior tibial artery with no flow demonstrated in the dorsalis pedis artery. IMPRESSION: 1. Severe diffuse atherosclerotic disease right lower extremity arterial system with high-grade stenosis popliteal artery and severe trifurcation disease. Dictated by: Dictated on workstation # [id number]
--- NOTE | 2018-08-06 07:15 | Diagnostic Imaging Report ---
PROCEDURE: US right lower extremity venous. TECHNIQUE: Multiple real-time grayscale images were obtained over the right lower extremity in various projections. Additional duplex Doppler and color Doppler images were also obtained. INDICATION: Right lower extremity swelling and pain. COMPARISON: None. FINDINGS: The visualized deep and superficial venous system is patent. There is no mass or DVT. IMPRESSION: Negative right lower extremity venous Doppler. Dictated by: Dictated on workstation # [id number]
--- NOTE | 2018-08-06 07:54 | Diagnostic Imaging Report ---
INDICATION: Diabetic ketoacidosis. Anemia. UTI. COMPARISON: 05/11/2018 FINDINGS: Single frontal view of the chest demonstrates normal heart size and pulmonary vascularity. The lungs are well aerated and clear. No large pleural effusion or pneumothorax is seen. The visualized osseous structures show no acute abnormalities. IMPRESSION: 1. No acute cardiopulmonary process. Dictated by: Dictated on workstation # [id number]
[2018-08-06 08:05] LABS: BUN/CREATININE RATIO 21; CALCIUM 7.2 MG/DL (8.5-10.1); CARBON DIOXIDE 19 MMOL/L (21-32); CHLORIDE 110 MMOL/L (98-107); CREATININE SERUM 0.63 MG/DL (0.60-1.30); GFR ESTIMATED > 60; GLUCOSE 110 MG/DL (70-105); POTASSIUM 3.7 MMOL/L (3.6-5.0); SODIUM 135 MMOL/L (135-145)
[2018-08-06 08:22] LABS: INR 1.2 (0.8-1.4); PROTHROMBIN TIME PATIENT 15.7 SEC (12.2-14.7)
--- NOTE | 2018-08-06 11:43 | Diagnostic Imaging Report ---
INDICATION: Lower extremity pain, possible pulmonary embolism. COMPARISON: None. FINDINGS: RADIOPHARMACEUTICAL: 45.4 mCi Tc 99m DTPA p.o., 5.49 mCi technetium 99m MAA IV. FINDINGS: Ventilation/perfusion images were obtained. There is no perfusion defect that would seem to indicate pulmonary embolus. Ventilation phase is unremarkable. IMPRESSION: No pulmonary embolism is identified. Dictated by: Dictated on workstation # [id number]
[2018-08-06] MEDS ORDERED: inSUlin DETERMIR 1 UNIT/0.01 ML (LEVEMIR) CHARGE PER UNIT SQ ONE (12:00)
[2018-08-06] MEDS: inSUlin ASPART (NovoLOG) 1 UNIT/0.01 ML (CHARGE PER UNIT) SC SCH ×5 (12:22→21:35)
--- NOTE | 2018-08-06 13:29 | Consultation-Cardiology ---
HPI-Cardiology Cardiology Consultation Date of Consultation 08/06/18 Date of Admission Time Seen by Provider: 13:22 Indication: Peripheral arterial disease HPI 48 years old lady with extensive history of peripheral arterial disease underwent left BKA, diabetes mellitus and tobaccoism, admitted with right leg pain, ultrasound suggested severe peripheral arterial disease. She was hyperglycemic and anemic. Blood sugar is under better control, anemia slightly better, still severely anemic. She denied any chest pain, exercise ability is limited, still an active smoker. No palpitation. Home Medications & Allergies Allergies: Coded Allergies: Penicillins (Verified Allergy, Unknown, 12/08/07) Home Medication List Reviewed: Yes [id number] Hx Patient Social History Employed/Student: unemployed Alcohol Use: Denies Use Recreational Drug Use: No Smoking Status: Current Everyday Smoker Type Used: Cigarettes 2nd Hand Smoke Exposure: Yes Recent Foreign Travel: No Recent Infectious Disease Expo: No Recent Hopitalizations: Yes ([id number]) Physical Abuse Screen: No Sexual Abuse: No Immunizations Up To Date Tetanus Booster (TDap): Less than 5yrs Date of Pneumonia Vaccine: Jun 12, 2008 Date of Influenza Vaccine: Sep 17, 2014 Past Medical History Past medical history as described below Family Medical History Significant Family History: Heart Disease, Diabetes Family History: Diabetes mellitus 19 FATHER 19 MOTHER G8 BROTHER G8 SISTER Myocardial infarction 19 MOTHER Review of Systems Constitutional: see HPI EENTM: see HPI, no symptoms reported Respiratory: no symptoms reported, see HPI; No cough; dyspnea on exertion; No hemoptysis, No orthopnea, No phlegm, No short of breath, No stridor, No wheezing , No other Cardiovascular: see HPI; No chest pain, No edema, No Hx of Intervention, No palpitations, No syncope; vascular heart diseas; No other Gastrointestinal: no symptoms reported, see HPI Genitourinary: no symptoms reported, see HPI Musculoskeletal: see HPI, muscle stiffness, muscle cramps, other (Right leg pain, left BKA) Skin: see HPI, change in hair/nails Psychiatric/Neurological: No Symptoms Reported, See HPI Reviewed Test Results Reviewed Test Results Lab Laboratory Tests Test 08/05/18 21:13 08/05/18 23:30 08/05/18 23:49 08/06/18 00:28 Range/Units White Blood Count 12.3 H 4.3-11.0 10^3/uL Red Blood Count 3.61 L 4.35-5.85 10^6/uL Hemoglobin 6.0 *L 11.5-16.0 G/DL Hematocrit 23 L 35-52 % Mean Corpuscular Volume 64 L 80-99 FL Mean Corpuscular Hemoglobin 17 L 25-34 PG Mean Corpuscular Hemoglobin Concent 26 L 32-36 G/DL Red Cell Distribution Width 24.5 H 10.0-14.5 % Platelet Count 881 H 130-400 10^3/uL Mean Platelet Volume 9.4 7.4-10.4 FL Neutrophils (%) (Auto) 80 H 42-75 % Lymphocytes (%) (Auto) 12 12-44 % Monocytes (%) (Auto) 7 0-12 % Eosinophils (%) (Auto) 0 0-10 % Basophils (%) (Auto) 1 0-10 % Neutrophils # (Auto) 9.8 H 1.8-7.8 X 10^3 Lymphocytes # (Auto) 1.4 1.0-4.0 X 10^3 Monocytes # (Auto) 0.9 0.0-1.0 X 10^3 Eosinophils # (Auto) 0.0 0.0-0.3 10^3/uL Basophils # (Auto) 0.1 0.0-0.1 10^3/uL Prothrombin Time 14.6 12.2-14.7 SEC INR Comment 1.1 0.8-1.4 Activated Partial Thromboplast Time 24 24-35 SEC D-Dimer 0.84 H 0.00-0.49 UG/ML Sodium Level 123 *L 135-145 MMOL/L Potassium Level 4.7 3.6-5.0 MMOL/L Chloride Level 87 L 98-107 MMOL/L Carbon Dioxide Level 22 21-32 MMOL/L Anion Gap 14 5-14 MMOL/L Blood Urea Nitrogen 16 7-18 MG/DL Creatinine 1.38 H 0.60-1.30 MG/DL Estimat Glomerular Filtration Rate 40 BUN/Creatinine Ratio 12 Glucose Level 875 *H 70-105 MG/DL Calcium Level 9.8 8.5-10.1 MG/DL Corrected Calcium 9.6 8.5-10.1 MG/DL Magnesium Level 2.0 1.8-2.4 MG/DL Total Bilirubin 0.4 0.1-1.0 MG/DL Aspartate Amino Transf (AST/SGOT) 14 5-34 U/L Alanine Aminotransferase (ALT/SGPT) 12 0-55 U/L Alkaline Phosphatase 105 40-136 U/L Total Protein 7.8 6.4-8.2 GM/DL Albumin 4.2 3.2-4.5 GM/DL Glucometer > 600 *H 70-110 MG/DL Urine Color YELLOW Urine Clarity SLIGHTLY CLOUDY Urine pH 6.5 5-9 Urine Specific [place] 1.010 L 1.016-1.022 Urine Protein 1+ H NEGATIVE Urine Glucose (UA) 4+ H NEGATIVE Urine Ketones 1+ H NEGATIVE Urine Nitrite POSITIVE H NEGATIVE Urine Bilirubin NEGATIVE NEGATIVE Urine Urobilinogen NORMAL NORMAL MG/DL Urine Leukocyte Esterase 2+ H NEGATIVE Urine RBC (Auto) 5+ H NEGATIVE Urine RBC 10-25 H /HPF Urine WBC 10-25 H /HPF Urine Squamous Epithelial Cells 25-50 H /HPF Urine Crystals NONE /LPF Urine Bacteria MODERATE H /HPF Urine Casts NONE /LPF Urine Mucus MODERATE H /LPF Urine Culture Indicated YES Blood Gas Puncture Site RIGHT RADIAL Blood Gas Patient Temperature 98.3 Arterial Blood pH 7.49 H 7.37-7.43 Arterial Blood Partial Pressure CO2 31 L 35-45 MMHG Arterial Blood Partial Pressure O2 108 H 79-93 MMHG Arterial Blood HCO3 23 23-27 MMOL/L Arterial Blood Total CO2 24.1 21.0-31.0 MMOL/L Arterial Blood Oxygen Saturation 100 94-100 % Arterial Blood Base Excess 0.1 -2.5-2.5 MMOL/L Garcia Test YES-POS Blood Gas Ventilator Setting NO Blood Gas Inspired Oxygen ROOM AIR Test 08/06/18 00:49 08/06/18 01:52 08/06/18 02:13 08/06/18 03:02 Range/Units Glucometer 434 *H 326 H 388 H 70-110 MG/DL White Blood Count 13.0 H 4.3-11.0 10^3/uL Red Blood Count 3.12 L 4.35-5.85 10^6/uL Hemoglobin 5.1 *L 11.5-16.0 G/DL Hematocrit 20 *L 35-52 % Mean Corpuscular Volume 64 L 80-99 FL Mean Corpuscular Hemoglobin 16 L 25-34 PG Mean Corpuscular Hemoglobin Concent 26 L 32-36 G/DL Red Cell Distribution Width 23.4 H 10.0-14.5 % Platelet Count 672 H 130-400 10^3/uL Mean Platelet Volume 9.4 7.4-10.4 FL Neutrophils (%) (Auto) 70 42-75 % Lymphocytes (%) (Auto) 18 12-44 % Monocytes (%) (Auto) 11 0-12 % Eosinophils (%) (Auto) 0 0-10 % Basophils (%) (Auto) 1 0-10 % Neutrophils # (Auto) 9.1 H 1.8-7.8 X 10^3 Lymphocytes # (Auto) 2.4 1.0-4.0 X 10^3 Monocytes # (Auto) 1.4 H 0.0-1.0 X 10^3 Eosinophils # (Auto) 0.1 0.0-0.3 10^3/uL Basophils # (Auto) 0.1 0.0-0.1 10^3/uL Sodium Level 134 L 135-145 MMOL/L Potassium Level 3.8 3.6-5.0 MMOL/L Chloride Level 97 L 98-107 MMOL/L Carbon Dioxide Level 23 21-32 MMOL/L Anion Gap 14 5-14 MMOL/L Blood Urea Nitrogen 16 7-18 MG/DL Creatinine 0.92 0.60-1.30 MG/DL Estimat Glomerular Filtration Rate > 60 BUN/Creatinine Ratio 17 Glucose Level 261 H 70-105 MG/DL Calcium Level 9.4 8.5-10.1 MG/DL Corrected Calcium 9.6 8.5-10.1 MG/DL Phosphorus Level 3.9 2.3-4.7 MG/DL Magnesium Level 2.0 1.8-2.4 MG/DL Total Bilirubin 0.2 0.1-1.0 MG/DL Aspartate Amino Transf (AST/SGOT) 12 5-34 U/L Alanine Aminotransferase (ALT/SGPT) 13 0-55 U/L Alkaline Phosphatase 87 40-136 U/L Total Protein 6.6 6.4-8.2 GM/DL Albumin 3.7 3.2-4.5 GM/DL Test 08/06/18 04:04 08/06/18 05:06 08/06/18 06:03 08/06/18 07:05 Range/Units Glucometer 288 H 171 H 171 H 151 H 70-110 MG/DL Test 08/06/18 07:36 08/06/18 08:00 08/06/18 08:51 08/06/18 09:36 Range/Units Hemoglobin 5.0 *L 11.5-16.0 G/DL Prothrombin Time 15.7 H 12.2-14.7 SEC INR Comment 1.2 0.8-1.4 Activated Partial Thromboplast Time 24 24-35 SEC Sodium Level 135 135-145 MMOL/L Potassium Level 3.7 3.6-5.0 MMOL/L Chloride Level 110 #H 98-107 MMOL/L Carbon Dioxide Level 19 L 21-32 MMOL/L Anion Gap 6 5-14 MMOL/L Blood Urea Nitrogen 13 7-18 MG/DL Creatinine 0.63 0.60-1.30 MG/DL Estimat Glomerular Filtration Rate > 60 BUN/Creatinine Ratio 21 Glucose Level 110 H 70-105 MG/DL Calcium Level 7.2 L 8.5-10.1 MG/DL Glucometer 135 H 209 H 232 H 70-110 MG/DL Test 08/06/18 10:39 08/06/18 11:42 08/06/18 12:00 08/06/18 12:24 Range/Units Glucometer 248 H 298 H 284 H 70-110 MG/DL Hemoglobin 7.1 #L 11.5-16.0 G/DL Physical Exam Vital Signs Vital Signs - First Documented 08/05/18 08/06/18 08/06/18 20:56 01:35 02:25 Temp 98.3 Pulse 116 Resp 18 B/P (MAP) 106/56 (73) Pulse Ox 99 O2 Delivery Room Air FiO2 21 Capillary Refill : Less Than 3 Seconds Height, Weight, BMI Height: 5'11.00" Weight: 143lbs. 1.0oz. 64.169758ia; 19.9 BMI Method:Stated General Appearance: No Apparent Distress, WD/WN Eyes: Bilateral Eye Normal Inspection, Bilateral Eye PERRL, Bilateral Eye EOMI HEENT: PERRL/EOMI, TMs Normal, Normal ENT Inspection, Pharynx Normal Neck: Full Range of Motion, Normal Inspection, Non Tender, Supple, Carotid Bruit Respiratory: Chest Non Tender, Normal Breath Sounds, No Accessory Muscle Use, No Respiratory Distress, Crackles Cardiovascular: Regular Rate, Rhythm, No Edema, No JVD, Systolic Murmur, Gallop /S3 Gastrointestinal: Normal Bowel Sounds, No Organomegaly, No Pulsatile Mass, Non Tender, Soft Back: Normal Inspection, No CVA Tenderness, No Vertebral Tenderness Extremity: No Pedal Edema, Other (Left BKA, absent right pulse) Neurologic/Psychiatric: Alert, Oriented x3, No Motor/Sensory Deficits, Normal Mood/Affect Skin: Normal Color, Warm/Dry Lymphatic: No Adenopathy A/P-Cardiology Admission Diagnosis Peripheral arterial disease Chronic limb ischemia Diabetes mellitus Tobaccoism Anemia Assessment/Plan Extensive peripheral arterial disease, pain in the lower extremities secondary to chronic limb ischemia, has abnormal ultrasound, patient is severely and then it, requiring multiple blood transfusion, workup for anemia is in progress prior to proceeding with peripheral angiogram and possible intervention due to the fact that patient cannot tolerate aggressive anticoagulation at this point. 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 Thrombocytosis, chronic, has been present in the past. Hyperglycemia, better control at this time, noncompliant with medications Tobaccoism, smoking about half pack a day, educated on smoking cessation History of methamphetamine use, reported that she did not use drugs for at least one year Noncompliant with medication or appointments. Clinical Quality Measures DVT/VTE Risk/Contraindication: Risk Factor Score Per Nursin RFS Level Per Nursing on Admit: 4+=Very High RACHEAL CUNNINGHAM MD Aug 06, 2018 13:29
[2018-08-06] MEDS ORDERED: FUROSEMIDE 40 MG/4 ML INJ (LASIX) IVP ONE (13:30)
[2018-08-06] MEDS ORDERED: ASPI-808 PO (14:50)
[2018-08-06] MEDS ORDERED: LISI2.5T PO (14:50)
[2018-08-06] MEDS ORDERED: INSU100I23 SQ (14:50)
[2018-08-06] MEDS ORDERED: CARV3.122 PO (14:50)
[2018-08-06] MEDS ORDERED: METF-397 PO (14:50)
[2018-08-06] MEDS ORDERED: WARF7.5T49 PO ×2 (14:50)
[2018-08-06] MEDS ORDERED: LOVA40TA2 PO (14:50)
[2018-08-06] MEDS ORDERED: INSU100I29 SQ (14:50)
--- NOTE | 2018-08-06 15:19 | History & Physicial (CHS) ---
HPI History of Present Illness: 48 yo female came to ER last night due to severe pain in her entire right leg. She states it woke her up in the morning from sleep and has been persistent, extends from ankle to thigh circumferentially. 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 She denies any other concerns or symptoms. She was noted on arrival to have high blood sugar and elevated D dimer. She states she has been out of insulin for a couple of weeks due to cost. She denies shortness of breath, cough, fever. Source: patient Date seen by provider: Aug 06, 2018 Time Seen by Provider: 11:38 Attending Physician Kiki Ortiz MD PCP Dave Lorenzana MD Consult Date of Admission Aug 06, 2018 at 00:20 Home Medications Home Medications Reviewed patient Home Medication Reconciliation performed by pharmacy medication reconciliations ammonia technician and/or nursing. Patients Allergies have been reviewed. Allergies Coded Allergies: Penicillins (Verified Allergy, Unknown, 12/08/07) [id number] Hx Patient Social History Employed/Student: unemployed Alcohol Use: Denies Use Recreational Drug Use: No Smoking Status: Current Everyday Smoker Type Used: Cigarettes 2nd Hand Smoke Exposure: Yes Recent Foreign Travel: No Contact w/other who traveled: No Recent Hopitalizations: Yes ([id number]) Recent Infectious Disease Expo: No Physical Abuse Screen: No Sexual Abuse: No Immunizations Up To Date Tetanus Booster (TDap): Less than 5yrs Date of Pneumonia Vaccine: Jun 12, 2008 Date of Influenza Vaccine: Sep 17, 2014 Past Medical History PMHx: Diabetes Mellitus - Type 2 (dx age 33) - insulin requiring Anxiety Atherosclerotic occlusive disease Superficial femoral vein thrombus Chronic anemia Tobacco Abuse Neuropathy Kidney Stones Depression Gastroparesis Hyperlipidemia Uterine Fibroids Dysfunctional Uterine Bleeding Left ventricular thrombus Congestive heart failure with EF 15% March 2018 PSH: cholecystectomy Left leg arterial bypass Left BKA Section Vascular Stenting Family Medical History Significant Family History: Heart Disease, Diabetes Family History: Diabetes mellitus 19 FATHER 19 MOTHER G8 BROTHER G8 SISTER Myocardial infarction 19 MOTHER Review of Systems (CHC) Constitutional: No fever EENTM: No nose congestion, No throat pain Respiratory: No cough, No short of breath Cardiovascular: No chest pain Gastrointestinal: No abdominal pain, No constipation, No diarrhea, No melena, No nausea, No vomiting Genitourinary: No dysuria Musculoskeletal: see HPI Skin: no symptoms reported Psychiatric/Neurological: No Symptoms Reported Reviewed Test Results Reviewed Test Results Lab Laboratory Tests Test 08/05/18 21:13 08/05/18 23:30 08/05/18 23:49 08/06/18 00:28 Range/Units White Blood Count 12.3 H 4.3-11.0 10^3/uL Red Blood Count 3.61 L 4.35-5.85 10^6/uL Hemoglobin 6.0 *L 11.5-16.0 G/DL Hematocrit 23 L 35-52 % Mean Corpuscular Volume 64 L 80-99 FL Mean Corpuscular Hemoglobin 17 L 25-34 PG Mean Corpuscular Hemoglobin Concent 26 L 32-36 G/DL Red Cell Distribution Width 24.5 H 10.0-14.5 % Platelet Count 881 H 130-400 10^3/uL Mean Platelet Volume 9.4 7.4-10.4 FL Neutrophils (%) (Auto) 80 H 42-75 % Lymphocytes (%) (Auto) 12 12-44 % Monocytes (%) (Auto) 7 0-12 % Eosinophils (%) (Auto) 0 0-10 % Basophils (%) (Auto) 1 0-10 % Neutrophils # (Auto) 9.8 H 1.8-7.8 X 10^3 Lymphocytes # (Auto) 1.4 1.0-4.0 X 10^3 Monocytes # (Auto) 0.9 0.0-1.0 X 10^3 Eosinophils # (Auto) 0.0 0.0-0.3 10^3/uL Basophils # (Auto) 0.1 0.0-0.1 10^3/uL Prothrombin Time 14.6 12.2-14.7 SEC INR Comment 1.1 0.8-1.4 Activated Partial Thromboplast Time 24 24-35 SEC D-Dimer 0.84 H 0.00-0.49 UG/ML Sodium Level 123 *L 135-145 MMOL/L Potassium Level 4.7 3.6-5.0 MMOL/L Chloride Level 87 L 98-107 MMOL/L Carbon Dioxide Level 22 21-32 MMOL/L Anion Gap 14 5-14 MMOL/L Blood Urea Nitrogen 16 7-18 MG/DL Creatinine 1.38 H 0.60-1.30 MG/DL Estimat Glomerular Filtration Rate 40 BUN/Creatinine Ratio 12 Glucose Level 875 *H 70-105 MG/DL Calcium Level 9.8 8.5-10.1 MG/DL Corrected Calcium 9.6 8.5-10.1 MG/DL Magnesium Level 2.0 1.8-2.4 MG/DL Total Bilirubin 0.4 0.1-1.0 MG/DL Aspartate Amino Transf (AST/SGOT) 14 5-34 U/L Alanine Aminotransferase (ALT/SGPT) 12 0-55 U/L Alkaline Phosphatase 105 40-136 U/L Total Protein 7.8 6.4-8.2 GM/DL Albumin 4.2 3.2-4.5 GM/DL Glucometer > 600 *H 70-110 MG/DL Urine Color YELLOW Urine Clarity SLIGHTLY CLOUDY Urine pH 6.5 5-9 Urine Specific Cowen 1.010 L 1.016-1.022 Urine Protein 1+ H NEGATIVE Urine Glucose (UA) 4+ H NEGATIVE Urine Ketones 1+ H NEGATIVE Urine Nitrite POSITIVE H NEGATIVE Urine Bilirubin NEGATIVE NEGATIVE Urine Urobilinogen NORMAL NORMAL MG/DL Urine Leukocyte Esterase 2+ H NEGATIVE Urine RBC (Auto) 5+ H NEGATIVE Urine RBC 10-25 H /HPF Urine WBC 10-25 H /HPF Urine Squamous Epithelial Cells 25-50 H /HPF Urine Crystals NONE /LPF Urine Bacteria MODERATE H /HPF Urine Casts NONE /LPF Urine Mucus MODERATE H /LPF Urine Culture Indicated YES Blood Gas Puncture Site RIGHT RADIAL Blood Gas Patient Temperature 98.3 Arterial Blood pH 7.49 H 7.37-7.43 Arterial Blood Partial Pressure CO2 31 L 35-45 MMHG Arterial Blood Partial Pressure O2 108 H 79-93 MMHG Arterial Blood HCO3 23 23-27 MMOL/L Arterial Blood Total CO2 24.1 21.0-31.0 MMOL/L Arterial Blood Oxygen Saturation 100 94-100 % Arterial Blood Base Excess 0.1 -2.5-2.5 MMOL/L Garcia Test YES-POS Blood Gas Ventilator Setting NO Blood Gas Inspired Oxygen ROOM AIR Test 08/06/18 00:49 08/06/18 01:52 08/06/18 02:13 08/06/18 03:02 Range/Units Glucometer 434 *H 326 H 388 H 70-110 MG/DL White Blood Count 13.0 H 4.3-11.0 10^3/uL Red Blood Count 3.12 L 4.35-5.85 10^6/uL Hemoglobin 5.1 *L 11.5-16.0 G/DL Hematocrit 20 *L 35-52 % Mean Corpuscular Volume 64 L 80-99 FL Mean Corpuscular Hemoglobin 16 L 25-34 PG Mean Corpuscular Hemoglobin Concent 26 L 32-36 G/DL Red Cell Distribution Width 23.4 H 10.0-14.5 % Platelet Count 672 H 130-400 10^3/uL Mean Platelet Volume 9.4 7.4-10.4 FL Neutrophils (%) (Auto) 70 42-75 % Lymphocytes (%) (Auto) 18 12-44 % Monocytes (%) (Auto) 11 0-12 % Eosinophils (%) (Auto) 0 0-10 % Basophils (%) (Auto) 1 0-10 % Neutrophils # (Auto) 9.1 H 1.8-7.8 X 10^3 Lymphocytes # (Auto) 2.4 1.0-4.0 X 10^3 Monocytes # (Auto) 1.4 H 0.0-1.0 X 10^3 Eosinophils # (Auto) 0.1 0.0-0.3 10^3/uL Basophils # (Auto) 0.1 0.0-0.1 10^3/uL Sodium Level 134 L 135-145 MMOL/L Potassium Level 3.8 3.6-5.0 MMOL/L Chloride Level 97 L 98-107 MMOL/L Carbon Dioxide Level 23 21-32 MMOL/L Anion Gap 14 5-14 MMOL/L Blood Urea Nitrogen 16 7-18 MG/DL Creatinine 0.92 0.60-1.30 MG/DL Estimat Glomerular Filtration Rate > 60 BUN/Creatinine Ratio 17 Glucose Level 261 H 70-105 MG/DL Calcium Level 9.4 8.5-10.1 MG/DL Corrected Calcium 9.6 8.5-10.1 MG/DL Phosphorus Level 3.9 2.3-4.7 MG/DL Magnesium Level 2.0 1.8-2.4 MG/DL Total Bilirubin 0.2 0.1-1.0 MG/DL Aspartate Amino Transf (AST/SGOT) 12 5-34 U/L Alanine Aminotransferase (ALT/SGPT) 13 0-55 U/L Alkaline Phosphatase 87 40-136 U/L Total Protein 6.6 6.4-8.2 GM/DL Albumin 3.7 3.2-4.5 GM/DL Test 08/06/18 04:04 08/06/18 05:06 08/06/18 06:03 08/06/18 07:05 Range/Units Glucometer 288 H 171 H 171 H 151 H 70-110 MG/DL Test 08/06/18 07:36 08/06/18 08:00 08/06/18 08:51 08/06/18 09:36 Range/Units Hemoglobin 5.0 *L 11.5-16.0 G/DL Prothrombin Time 15.7 H 12.2-14.7 SEC INR Comment 1.2 0.8-1.4 Activated Partial Thromboplast Time 24 24-35 SEC Sodium Level 135 135-145 MMOL/L Potassium Level 3.7 3.6-5.0 MMOL/L Chloride Level 110 #H 98-107 MMOL/L Carbon Dioxide Level 19 L 21-32 MMOL/L Anion Gap 6 5-14 MMOL/L Blood Urea Nitrogen 13 7-18 MG/DL Creatinine 0.63 0.60-1.30 MG/DL Estimat Glomerular Filtration Rate > 60 BUN/Creatinine Ratio 21 Glucose Level 110 H 70-105 MG/DL Calcium Level 7.2 L 8.5-10.1 MG/DL Glucometer 135 H 209 H 232 H 70-110 MG/DL Test 08/06/18 10:39 08/06/18 11:42 08/06/18 12:00 08/06/18 12:24 Range/Units Glucometer 248 H 298 H 284 H 70-110 MG/DL Hemoglobin 7.1 #L 11.5-16.0 G/DL Test 08/06/18 13:38 08/06/18 14:45 Range/Units Glucometer 297 H 70-110 MG/DL Radiology 08/05 Right LE US: IMPRESSION: 1. Severe diffuse atherosclerotic disease right lower extremity arterial system with high-grade stenosis popliteal artery and severe trifurcation disease. 08/05 Right LE venous doppler US: negative for DVT 08/06 V/Q scan- no PE seen Physical Exam-(CHC) Physical Exam Vital Signs VS - Last 72 Hours, by Label 08/05/18 08/06/18 08/06/18 08/06/18 20:56 01:26 01:35 01:41 Temp 98.3 98.3 98.2 Pulse 116 116 96 Resp 18 18 18 B/P (MAP) 106/56 (73) 106/56 (73) 84/48 (60) Pulse Ox 99 99 99 O2 Delivery Room Air Room Air 08/06/18 08/06/18 08/06/18 08/06/18 01:43 01:43 01:45 02:00 Pulse 94 92 93 90 Resp 19 19 14 B/P (MAP) 93/40 (57) 96/42 (60) 93/47 (62) O2 Delivery Room Air Room Air Room Air 08/06/18 08/06/18 08/06/18 08/06/18 02:15 02:25 02:30 02:45 Pulse 94 91 96 95 Resp 16 21 21 B/P (MAP) 86/44 (58) 116/63 (80) 126/65 (85) Pulse Ox 97 98 O2 Delivery Room Air Room Air Room Air FiO2 21 08/06/18 08/06/18 08/06/18 08/06/18 03:00 04:00 04:00 04:00 Temp 97.9 Pulse 92 91 Resp 15 37 B/P (MAP) 93/54 (67) 99/51 (67) Pulse Ox 95 100 100 O2 Delivery Room Air Room Air Room Air 08/06/18 08/06/18 08/06/18 08/06/18 04:46 05:00 05:01 06:00 Temp 97.9 97.9 Pulse 92 85 88 82 Resp 15 17 18 8 B/P (MAP) 96/51 118/59 (78) 118/59 92/50 (64) Pulse Ox 100 99 98 O2 Delivery Room Air Room Air Room Air Room Air 08/06/18 08/06/18 08/06/18 08/06/18 06:51 07:00 07:00 07:16 Temp 98.7 Pulse 83 83 85 Resp 12 B/P (MAP) 104/53 (70) 102/50 Pulse Ox 97 99 99 O2 Delivery Room Air Room Air Room Air 08/06/18 08/06/18 08/06/18 08/06/18 07:39 07:55 08:00 08:00 Temp 98.3 97.8 Pulse 83 88 82 Resp 17 20 22 B/P (MAP) 101/44 106/52 106/52 (70) Pulse Ox 98 99 98 O2 Delivery Room Air Room Air Room Air Room Air 08/06/18 08/06/18 08/06/18 08/06/18 08:00 09:00 10:00 10:18 Temp 98.0 98.8 Pulse 83 82 85 Resp 7 20 B/P (MAP) 105/56 (72) 95/49 (64) 102/59 Pulse Ox 96 97 99 O2 Delivery Room Air Room Air Room Air 08/06/18 08/06/18 08/06/18 08/06/18 11:00 12:00 12:00 12:00 Temp 97.9 Pulse 82 79 Resp 33 16 B/P (MAP) 99/57 (71) 120/55 (76) Pulse Ox 99 98 O2 Delivery Room Air Room Air Room Air 08/06/18 08/06/18 08/06/18 08/06/18 13:00 13:00 14:22 14:45 Temp 97.4 98.5 Pulse 92 92 85 15 Resp 14 22 18 B/P (MAP) 143/76 (98) 104/46 108/65 Pulse Ox 96 97 98 O2 Delivery Room Air Room Air Room Air Capillary Refill : Less Than 3 Seconds General Appearance: no apparent distress Respiratory: lungs clear, normal breath sounds Cardiovascular: regular rate, rhythm, no edema, no murmur Peripheral Pulses: 1+ Dorsalis Pedis (R) Gastrointestinal: normal bowel sounds, non tender, soft Extremities: no pedal edema, other (left BKA) Neurologic/Psychiatric: normal mood/affect Skin: normal color, warm/dry Assessment/Plan Assessment/Plan Admission Dx Hyperglycemic Acute renal insufficiency Elevated D dimer Acute renal insufficiency Severe iron deficiency anemia History of LV thrombus Chronic systolic heart failure with EF 15% 03/2018 Atherosclerotic occlusive disease Admission Status: Inpatient Order (span 2 midnights) Reason for Inpatient Admission: Patient with multiple comorbidities, severe anemia requiring transfusion in combination with need for anticoagulation and marked hyperglycemia requiring insulin drip. (1) Uncontrolled diabetes mellitus with hyperglycemia Status: Acute Assessment & Plan: Was out of insulin at home x 2 weeks. Treated overnight for DKA, although pH normal and no anion gap or low bicarb. Blood sugar improved this am with insulin drip overnight. Start home levemir and stop drip 1 hour later, resume mealtime insulin and diabetic diet. If blood sugar okay after lunch, may transfer to floor. Qualifiers: Qualified Codes: E11.65 - Type 2 diabetes mellitus with hyperglycemia (2) Acute renal insufficiency Status: Resolved Assessment & Plan: Secondary to hyperglycemia, improved overnight with IVF. (3) Elevated d-dimer Status: Acute Assessment & Plan: Review of records indicates LV thrombus in March 2018, seen at and CTS recommended anti-coagulation, no procedure. Reportedly on warfarin , but INR 1.2 on admit. Venous dopplers negative. V/Q scan without evidence of PE. Holding anti-coagulation due to severe anemia. (4) Anemia Status: Chronic Assessment & Plan: Patient unable to clarify diagnosis, but review of records indicates history of DUB with fibroid uterus, at hospitalization endometrial bx done without dysplasia, but small sample. IUD offered and declined. Iron studies at in March- High TIBC, low iron, low ferritin, nml haptoglobin and slightly elevated LDH. Has required multiple transfusion in past. Improved hemoglobin s/p 2 units transfusion overnight. Monitor closely and holding anticoagulation. No note of active bleeding currently. Qualifiers: Qualified Codes: D50.0 - Iron deficiency anemia secondary to blood loss ( chronic) (5) Left ventricular thrombus Status: Chronic Assessment & Plan: Dx 03/2018 and transferred from ER to [facility] where she was seen by CTS and no surgery recommended, recommended anti-coagulation. She has not followed up outpatient. Cardiology consulted. (6) Peripheral vascular disease of lower extremity Status: Chronic Assessment & Plan: History of left BKA, now with ultrasound concerning for severe occlusive disease in right leg symptomatic with severe pain. No evidence of urgent ischemia or infection today. Cardiology consulted, appreciate recommendations. (7) Dysfunctional uterine bleeding Status: Chronic Assessment & Plan: Per US 03/2018 at [facility], fibroid uterus, was started on provera, which was d/c'd last hospitalization at [facility]. Poor surgical candidate, needs to follow up with Radio Adjuster for options, she declined IUD at [facility]. (8) Heart failure Status: Chronic Assessment & Plan: EF 15% on echo 03/2018 at . Managed medically with ACEI, beta tico, furosemide and spironolactone. BP low, will resume meds cautiously - is on low dose. Cardiology consulted. Qualifiers: Qualified Codes: I50.22 - Chronic systolic (congestive) heart failure (9) DVT prophylaxis Status: Acute Assessment & Plan: No SCD due to severe ASOD, no chemoprophylaxis due to severe anemia. Clinical Quality Measures DVT/VTE Risk/Contraindication: Risk Factor Score Per Nursin RFS Level Per Nursing on Admit: 4+=Very High KIKI ORTIZ MD Aug 06, 2018 3:19 pm
[2018-08-06 15:27] LABS: BUN/CREATININE RATIO 18; CALCIUM 8.6 MG/DL (8.5-10.1); CARBON DIOXIDE 19 MMOL/L (21-32); CHLORIDE 100 MMOL/L (98-107); CREATININE SERUM 0.83 MG/DL (0.60-1.30); GFR ESTIMATED > 60; GLUCOSE 317 MG/DL (70-105); POTASSIUM 4.6 MMOL/L (3.6-5.0); SODIUM 130 MMOL/L (135-145)
[2018-08-06] MEDS: meTOprolol 5 MG/5 ML (LOPRESSOR) VIAL IV ONE ×2 (16:33→17:34)
[2018-08-06] MEDS ORDERED: NS IV 1000 ML 500 ML IV ONE (17:30)
[2018-08-06] MEDS: CARVEDILOL 3.125 MG (COREG) TABLET PO SCH (21:29)
[2018-08-07] VITALS (12 sets, daily range): BP systolic 94–126; BP diastolic 51–70
[2018-08-07] MEDS ORDERED: cefTRIAXone 1 GM/NS 50 ML IVPB IV SCH ×2 (00:30)
[2018-08-07 03:33] LABS: HEMOGLOBIN 8.1 G/DL (11.5-16.0); RED BLOOD COUNT 4.01 10^6/uL (4.35-5.85); RED CELL DISTRIBUTION WIDTH 25.8 % (10.0-14.5); WHITE BLOOD COUNT 10.8 10^3/uL (4.3-11.0)
[2018-08-07 03:49] LABS: PHOSPHORUS 2.7 MG/DL (2.3-4.7)
[2018-08-07 03:50] LABS: BUN/CREATININE RATIO 15; CALCIUM 8.7 MG/DL (8.5-10.1); CARBON DIOXIDE 23 MMOL/L (21-32); CHLORIDE 102 MMOL/L (98-107); CHOLESTEROL 117 MG/DL (< 200); CREATININE SERUM 0.79 MG/DL (0.60-1.30); GFR ESTIMATED > 60; GLUCOSE 246 MG/DL (70-105); HDL CHOLESTEROL 49 MG/DL (40-60); POTASSIUM 4.7 MMOL/L (3.6-5.0); SODIUM 132 MMOL/L (135-145); TRIGLYCERIDES 119 MG/DL (<150); VLDL CHOLESTEROL 24 MG/DL (5-40)
[2018-08-07] MEDS: PANTOPRAZOLE 40 MG (PROTONIX) VIAL IV SCH (04:07)
[2018-08-07] MEDS: POTASSIUM CL 10MEQ/50ML IVPB 50 ML IV SCH (05:06)
[2018-08-07] MEDS: MAGNESIUM 1 GM/100 ML IVPB 100 ML IV SCH (05:06)
[2018-08-07] MEDS: KCL 20 MEQ TAB (K-DUR) PO SCH (05:06)
[2018-08-07] MEDS: inSUlin ASPART (NovoLOG) 1 UNIT/0.01 ML (CHARGE PER UNIT) SC SCH ×4 (07:03→11:02)
--- NOTE | 2018-08-07 07:06 | Diagnostic Imaging Report ---
CLINICAL INDICATION: Patient with DKA, UTI, chronic anemia. EXAM: Portable chest x-ray upright view. COMPARISONS: Chest x-ray dated 08/06/2018. FINDINGS: Lungs/pleura: Lungs are clear. There is no pneumothorax. There is no pleural effusion. Mediastinum: Unremarkable. Pulmonary vasculature: Unremarkable. Heart: Unremarkable. Bones/extrathoracic soft tissue: There are mildly hypertrophic spurs involving the thoracic spine. IMPRESSION: There is no radiographic evidence of acute cardiopulmonary process. Chest x-ray dated 08/06/2018. Dictated by: Dictated on workstation # [id number]
[2018-08-07] MEDS: RT-ALBUTEROL/IPRATROPIUM 3 ML (DUONEB) VIAL INH SCH (07:11)
[2018-08-07] MEDS: HYDROcodone/APAP 7.5 MG/325 MG (LORTAB, LORCET PLUS) TABLET PO PRN (07:55)
[2018-08-07] MEDS: CARVEDILOL 3.125 MG (COREG) TABLET PO SCH (07:55)
--- NOTE | 2018-08-07 08:50 | Cardiology Progress Note ---
Subjective Date Seen by Provider: Aug 07, 2018 Time Seen by Provider: 08:46 Subjective/Events-last exam Patient is laying down in bed, denied any chest pain. No shortness of breath. I discussed with her in length regarding angiogram and she does not want the procedure done. Reporting that she has some improvement in her pain Review of Systems General: No Chills, No Night Sweats; Fatigue, Malaise; No Appetite, No Other HEENT: No Head Aches, No Visual Changes, No Eye Pain, No Ear Pain, No Dysphasia , No Sinus Congestion, No Post Nasal Drip, No Sore Throat, No Other Pulmonary: Dyspnea; No Cough, No Pleuritic Chest Pain, No Other Cardiovascular: No: Chest Pain, Palpitations, Orthopnea, Paroxysmal Noc. Dyspnea, Edema, Lt Headedness, Other Objective-Cardiology Exam Last Set of Vital Signs Vital Signs 08/06/18 08/07/18 08/07/18 08/07/18 08/07/18 02:25 04:16 05:00 07:00 07:12 Temp 98.1 Pulse 77 Resp 11 B/P (MAP) 111/56 (74) Pulse Ox 96 O2 Delivery Room Air FiO2 21 Capillary Refill : Less Than 3 Seconds I&O Intake and Output 08/07/18 00:00 Intake Total 5910 ml Output Total 2800 ml Balance 3110 ml Intake Oral 2360 ml IV Total 3550 ml Output Urine Total 2800 ml # Bowel Movements 1 Daily Weight Change Yes, 2-13 lbs General: Alert, Oriented X3, Cooperative, Moderate Distress HEENT: Atraumatic, PERRLA Neck: Supple, No JVD, No Thyromegaly Lungs: Clear to Auscultation, Normal Air Movement Heart: Regular Rate, Normal S1, Normal S2, Other (Systolic murmur at the left sternal border) Abdomen: Normal Bowel Sounds, Soft, No Tenderness, No Hepatosplenomegaly, No Masses Extremities: No Edema, Other (Left BKA, right foot has diminished pulse.) Skin: No Rashes, No Breakdown, No Significant Lesion Neuro: Normal Speech, Normal Tone Psych/Mental Status: Mental Status NL, Mood NL Results Lab Laboratory Tests 08/06/18 12:00 08/06/18 14:45 08/07/18 03:24 A/P-Cardiology Admission Diagnosis Peripheral arterial disease Chronic limb ischemia Diabetes mellitus Tobaccoism Anemia Assessment/Plan Extensive peripheral arterial disease, pain in the lower extremities secondary to critical limb ischemia, has abnormal ultrasound, discussed peripheral angiogram, patient did not want the procedure. We will continue with conservative management, start on aspirin. Left BKA secondary to nonhealing ulcer and gangrene Left ventricular mass noted in March 2018, transferred to [facility], patient is not sure what was done at that time, I will try to obtain copy of the record Severe anemia, questionable GI loss, last posttransfusion, continue to monitor History of chronic Coumadin treatment due to questionable thrombus, INR was 1.2 on admission. Continue to monitor Thrombocytosis, chronic, probably reactive to bleeding. Continue to monitor Hyperglycemia, better control at this time, noncompliant with medications Tobaccoism, smoking about half pack a day, educated on smoking cessation History of methamphetamine use, reported that she did not use drugs for at least one year Noncompliant with medication or appointments. Clinical Quality Measures DVT/VTE Risk/Contraindication: Risk Factor Score Per Nursin RFS Level Per Nursing on Admit: 4+=Very High RACHEAL CUNNINGHAM MD Aug 07, 2018 08:50
[2018-08-07] MEDS ORDERED: lisINopril 5 MG (PRINIVIL) TABLET PO SCH (09:00)
[2018-08-07] MEDS ORDERED: FUROSEMIDE 40 MG (LASIX) TAB PO SCH (09:00)
[2018-08-07] MEDS ORDERED: METF-397 PO (12:25)
[2018-08-07] MEDS ORDERED: CARV3.122 PO (12:25)
[2018-08-07] MEDS ORDERED: LISI2.5T PO (12:25)
[2018-08-07] MEDS ORDERED: FURO40TA4 PO (12:25)
[2018-08-07] MEDS ORDERED: WARF7.5T49 PO (12:25)
[2018-08-07] MEDS ORDERED: ATOR40TA70 PO (12:26)
--- NOTE | 2018-08-07 12:27 | Discharge Instructions ---
Discharge Inst-[facility] Discharge Medications New, Converted or Re-Newed RX: Other (insulin samples will be available to roller picker at Internal Medicine at [facility]. Remainder transmitted.) New Medications: Atorvastatin Calcium (Atorvastatin Calcium) 40 Mg Tablet 40 MG PO DAILY, #30 TAB 0 Refills Changed Medications: Carvedilol (Carvedilol) 3.125 Mg Tablet 3.125 MG PO BID, #60 TAB 0 Refills (Changed from: DAILY; Refills: ) Warfarin Sodium (Warfarin Sodium) 7.5 Mg Tablet 0 PO UD, #60 TAB 0 Refills (Changed from: Removed Units; Tuesday and ; Refills: ) Take 2 tabs (15 mg) daily 3x per week (//) and 1 tab daily 4x per week (Tue/Tue/Tue/) Continued Medications: Aspirin (Aspirin) 325 Mg Tablet 325 MG PO DAILY, TAB Furosemide (Furosemide) 40 Mg Tablet 40 MG PO DAILY, #30 TAB 0 Refills (This prescription has been renewed) Insulin Detemir (Levemir Flextouch) 100 Unit/1 Ml Insuln.pen 45 UNIT SQ HS, EA Insulin Lispro (Humalog Kwikpen) 100 Unit/1 Ml Insuln.pen 12 UNIT SQ AC, EA Lisinopril (Lisinopril) 2.5 Mg Tablet 2.5 MG PO DAILY, #30 TAB 0 Refills (This prescription has been renewed) Metformin HCl (Metformin HCl) 500 Mg Tablet 500 MG PO BID, #60 TAB 0 Refills (This prescription has been renewed) Discontinued Medications: Hydrocodone/Acetaminophen (Hydrocodone-Acetamin 7.5-325) 1 Each Tablet 1 TAB PO TID PRN for PAIN-MODERATE, TAB Lovastatin (Lovastatin) 40 Mg Tablet 80 MG PO DAILY, TAB Spironolactone (Spironolactone) 25 Mg Tablet 25 MG PO BID, TAB Warfarin Sodium (Warfarin Sodium) 7.5 Mg Tablet 7.5 MG PO ,,Tue,Tue, TAB Patient Instructions Goal/Follow Up Appt: Follow up with CHAKA Matt at [facility] on 08/10 at 12:40 pm. Patient Instructions: It is very important that you go to [facility] and have your labwork done on Tuesday. It is very important that you follow up with Cardiology and Gynecology for further recommendations for your blood clot and bleeding issues. Someone will call you with an appointment for Gynecology when referral is sent from clinic. Return to The Hospital For: Dizziness, heavy vaginal bleeding, chest pain Activity & Diet Discharge Diet: Low Sodium Diet, ADA Diet Activity as Tolerated: Yes Orders-Post D/C & Referrals Pneu Vac Indicated: Yes JERILYN RAMESH MD Aug 07, 2018 11:57 am
--- NOTE | 2018-08-07 14:28 | Discharge Summary ---
Diagnosis/Chief Complaint Date of Admission Aug 06, 2018 at 12:20 am Date of Discharge Aug 07, 2018 Admission Diagnosis Admission Diagnosis Hyperglycemic Acute renal insufficiency Elevated D dimer Acute renal insufficiency Severe iron deficiency anemia History of LV thrombus Chronic systolic heart failure with EF 15% 03/2018 Atherosclerotic occlusive disease Discharge Diagnosis (1) Uncontrolled diabetes mellitus with hyperglycemia Status: Acute Assessment & Plan: Was out of insulin at home x 2 weeks. Treated overnight for DKA, although pH normal and no anion gap or low bicarb. Blood sugar improved this am with insulin drip overnight. Start home levemir and stop drip 1 hour later, resume mealtime insulin and diabetic diet. 08/07- blood sugar remains moderately elevated, but patient requesting discharge and without DKA at this time. Discussed importance of using insulin and letting primary provider know instead of running out. Samples available for patient at clinic on d/c. Qualifiers: Qualified Codes: E11.65 - Type 2 diabetes mellitus with hyperglycemia (2) Acute renal insufficiency Status: Resolved Assessment & Plan: Secondary to hyperglycemia, improved overnight with IVF. (3) Elevated d-dimer Status: Acute Assessment & Plan: Review of records indicates LV thrombus in March 2018, seen at and CTS recommended anti-coagulation, no procedure. Reportedly on warfarin , but INR 1.2 on admit. Venous dopplers negative. V/Q scan without evidence of PE. Held anti-coagulation due to severe anemia. (4) Anemia Status: Chronic Assessment & Plan: Patient unable to clarify diagnosis, but review of records indicates history of DUB with fibroid uterus, at hospitalization endometrial bx done without dysplasia, but small sample. IUD offered and declined. Iron studies at in March- High TIBC, low iron, low ferritin, nml haptoglobin and slightly elevated LDH. Has required multiple transfusion in past. Improved hemoglobin s/p 2 units transfusion overnight. Monitor closely and holding anticoagulation. No note of active bleeding currently. 08/07- discussed with her the critical nature of follow-up with Gynecology given the severity of her anemia and her need for anticoagulation and that excessive bleeding could be lifethreatening but risk of stroke is significant without anticoagulation. She states she cannot get back to , outpatient urgent referral sent to [facility]. Qualifiers: Qualified Codes: D50.0 - Iron deficiency anemia secondary to blood loss ( chronic) (5) Left ventricular thrombus Status: Chronic Assessment & Plan: Dx 03/2018 and transferred from ER to [facility] where she was seen by CTS and no surgery recommended, recommended anti-coagulation. She has not followed up outpatient. Cardiology consulted. 08/07- repeat echo showed persistent mass in LV. Resumed anti-coagulation on d/c , but discussed the need for very close follow-up and possible need for recurrent transfusion until dysfunctional uterine bleeding resolved. Increased coumadin to 15 mg three days per week and 7.5 mg other days due to subtherapeutic INR on admit with reported compliance with medication. INR and CBC ordered for 48 hours in clinic. (6) Peripheral vascular disease of lower extremity Status: Chronic Assessment & Plan: History of left BKA, now with ultrasound concerning for severe occlusive disease in right leg symptomatic with severe pain. No evidence of urgent ischemia or infection today. Cardiology consulted, appreciate recommendations. 08/07- patient declined angiogram (7) Dysfunctional uterine bleeding Status: Chronic Assessment & Plan: Per US 03/2018 at [facility], fibroid uterus, was started on provera, which was d/c'd last hospitalization at [facility]. Poor surgical candidate, needs to follow up with Juice Scaleman for options, she declined IUD at [facility]. 08/07- see anemia dx (8) Heart failure Status: Chronic Assessment & Plan: EF 15% on echo 03/2018 at . Managed medically with ACEI, beta tico, furosemide and spironolactone. BP low, will resume meds cautiously - is on low dose. Cardiology consulted. 08/07- continued lasix, lisinopril and carvedilol and statin on d/c- will need outpatient Cardiology f/u. Repeat echo this stay with EF 45%. Qualifiers: Qualified Codes: I50.22 - Chronic systolic (congestive) heart failure Chief Complaint/HPI Chief Complaint/HPI 48 yo female came to ER last night due to severe pain in her entire right leg. She states it woke her up in the morning from sleep and has been persistent, extends from ankle to thigh circumferentially. 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 She denies any other concerns or symptoms. She was noted on arrival to have high blood sugar and elevated D dimer. She states she has been out of insulin for a couple of weeks due to cost. She denies shortness of breath, cough, fever. Discharge Summary-Simple/Stand Consultations Dr. Ramírez (Cardiology) Discharge Physical Examination Allergies: Coded Allergies: Penicillins (Verified Allergy, Unknown, 12/08/07) Vitals & I&Os Vital Sign - Last 12Hours Date Time Temp Pulse Resp B/P (MAP) Pulse Ox O2 Delivery O2 Flow Rate FiO2 08/07/18 13:00 72 12 Room Air 08/07/18 12:00 99 08/07/18 12:00 98.5 08/06/18 02:25 21 Intake and Output 08/07/18 00:00 Intake Total 3080 ml Output Total 2400 ml Balance 680 ml General Appearance: Alert Respiratory: Clear to Auscultation, Normal Air Movement Cardiovascular: Regular Rate, No Murmurs Abdominal: Normal Bowel Sounds, Soft Psych/Mental Status: Mental Status NL Hospital Course See final discharge diagnosis. Labs Laboratory Tests Test 08/05/18 21:13 08/05/18 23:30 08/05/18 23:49 08/06/18 00:28 Range/Units White Blood Count 12.3 H 4.3-11.0 10^3/uL Red Blood Count 3.61 L 4.35-5.85 10^6/uL Hemoglobin 6.0 *L 11.5-16.0 G/DL Hematocrit 23 L 35-52 % Mean Corpuscular Volume 64 L 80-99 FL Mean Corpuscular Hemoglobin 17 L 25-34 PG Mean Corpuscular Hemoglobin Concent 26 L 32-36 G/DL Red Cell Distribution Width 24.5 H 10.0-14.5 % Platelet Count 881 H 130-400 10^3/uL Mean Platelet Volume 9.4 7.4-10.4 FL Neutrophils (%) (Auto) 80 H 42-75 % Lymphocytes (%) (Auto) 12 12-44 % Monocytes (%) (Auto) 7 0-12 % Eosinophils (%) (Auto) 0 0-10 % Basophils (%) (Auto) 1 0-10 % Neutrophils # (Auto) 9.8 H 1.8-7.8 X 10^3 Lymphocytes # (Auto) 1.4 1.0-4.0 X 10^3 Monocytes # (Auto) 0.9 0.0-1.0 X 10^3 Eosinophils # (Auto) 0.0 0.0-0.3 10^3/uL Basophils # (Auto) 0.1 0.0-0.1 10^3/uL Prothrombin Time 14.6 12.2-14.7 SEC INR Comment 1.1 0.8-1.4 Activated Partial Thromboplast Time 24 24-35 SEC D-Dimer 0.84 H 0.00-0.49 UG/ML Sodium Level 123 *L 135-145 MMOL/L Potassium Level 4.7 3.6-5.0 MMOL/L Chloride Level 87 L 98-107 MMOL/L Carbon Dioxide Level 22 21-32 MMOL/L Anion Gap 14 5-14 MMOL/L Blood Urea Nitrogen 16 7-18 MG/DL Creatinine 1.38 H 0.60-1.30 MG/DL Estimat Glomerular Filtration Rate 40 BUN/Creatinine Ratio 12 Glucose Level 875 *H 70-105 MG/DL Calcium Level 9.8 8.5-10.1 MG/DL Corrected Calcium 9.6 8.5-10.1 MG/DL Magnesium Level 2.0 1.8-2.4 MG/DL Total Bilirubin 0.4 0.1-1.0 MG/DL Aspartate Amino Transf (AST/SGOT) 14 5-34 U/L Alanine Aminotransferase (ALT/SGPT) 12 0-55 U/L Alkaline Phosphatase 105 40-136 U/L Total Protein 7.8 6.4-8.2 GM/DL Albumin 4.2 3.2-4.5 GM/DL Glucometer > 600 *H 70-110 MG/DL Urine Color YELLOW Urine Clarity SLIGHTLY CLOUDY Urine pH 6.5 5-9 Urine Specific Clarence 1.010 L 1.016-1.022 Urine Protein 1+ H NEGATIVE Urine Glucose (UA) 4+ H NEGATIVE Urine Ketones 1+ H NEGATIVE Urine Nitrite POSITIVE H NEGATIVE Urine Bilirubin NEGATIVE NEGATIVE Urine Urobilinogen NORMAL NORMAL MG/DL Urine Leukocyte Esterase 2+ H NEGATIVE Urine RBC (Auto) 5+ H NEGATIVE Urine RBC 10-25 H /HPF Urine WBC 10-25 H /HPF Urine Squamous Epithelial Cells 25-50 H /HPF Urine Crystals NONE /LPF Urine Bacteria MODERATE H /HPF Urine Casts NONE /LPF Urine Mucus MODERATE H /LPF Urine Culture Indicated YES Blood Gas Puncture Site RIGHT RADIAL Blood Gas Patient Temperature 98.3 Arterial Blood pH 7.49 H 7.37-7.43 Arterial Blood Partial Pressure CO2 31 L 35-45 MMHG Arterial Blood Partial Pressure O2 108 H 79-93 MMHG Arterial Blood HCO3 23 23-27 MMOL/L Arterial Blood Total CO2 24.1 21.0-31.0 MMOL/L Arterial Blood Oxygen Saturation 100 94-100 % Arterial Blood Base Excess 0.1 -2.5-2.5 MMOL/L Garcia Test YES-POS Blood Gas Ventilator Setting NO Blood Gas Inspired Oxygen ROOM AIR Test 08/06/18 00:49 08/06/18 01:52 08/06/18 02:13 08/06/18 03:02 Range/Units Glucometer 434 *H 326 H 388 H 70-110 MG/DL White Blood Count 13.0 H 4.3-11.0 10^3/uL Red Blood Count 3.12 L 4.35-5.85 10^6/uL Hemoglobin 5.1 *L 11.5-16.0 G/DL Hematocrit 20 *L 35-52 % Mean Corpuscular Volume 64 L 80-99 FL Mean Corpuscular Hemoglobin 16 L 25-34 PG Mean Corpuscular Hemoglobin Concent 26 L 32-36 G/DL Red Cell Distribution Width 23.4 H 10.0-14.5 % Platelet Count 672 H 130-400 10^3/uL Mean Platelet Volume 9.4 7.4-10.4 FL Neutrophils (%) (Auto) 70 42-75 % Lymphocytes (%) (Auto) 18 12-44 % Monocytes (%) (Auto) 11 0-12 % Eosinophils (%) (Auto) 0 0-10 % Basophils (%) (Auto) 1 0-10 % Neutrophils # (Auto) 9.1 H 1.8-7.8 X 10^3 Lymphocytes # (Auto) 2.4 1.0-4.0 X 10^3 Monocytes # (Auto) 1.4 H 0.0-1.0 X 10^3 Eosinophils # (Auto) 0.1 0.0-0.3 10^3/uL Basophils # (Auto) 0.1 0.0-0.1 10^3/uL Sodium Level 134 L 135-145 MMOL/L Potassium Level 3.8 3.6-5.0 MMOL/L Chloride Level 97 L 98-107 MMOL/L Carbon Dioxide Level 23 21-32 MMOL/L Anion Gap 14 5-14 MMOL/L Blood Urea Nitrogen 16 7-18 MG/DL Creatinine 0.92 0.60-1.30 MG/DL Estimat Glomerular Filtration Rate > 60 BUN/Creatinine Ratio 17 Glucose Level 261 H 70-105 MG/DL Mean Blood Glucose 424 H <=126 mg/dL Hemoglobin A1c 16.4 H 4.0-5.6 % Calcium Level 9.4 8.5-10.1 MG/DL Corrected Calcium 9.6 8.5-10.1 MG/DL Phosphorus Level 3.9 2.3-4.7 MG/DL Magnesium Level 2.0 1.8-2.4 MG/DL Total Bilirubin 0.2 0.1-1.0 MG/DL Aspartate Amino Transf (AST/SGOT) 12 5-34 U/L Alanine Aminotransferase (ALT/SGPT) 13 0-55 U/L Alkaline Phosphatase 87 40-136 U/L Total Protein 6.6 6.4-8.2 GM/DL Albumin 3.7 3.2-4.5 GM/DL Test 08/06/18 04:04 08/06/18 05:06 08/06/18 06:03 08/06/18 07:05 Range/Units Glucometer 288 H 171 H 171 H 151 H 70-110 MG/DL Test 08/06/18 07:36 08/06/18 08:00 08/06/18 08:51 08/06/18 09:36 Range/Units Hemoglobin 5.0 *L 11.5-16.0 G/DL Prothrombin Time 15.7 H 12.2-14.7 SEC INR Comment 1.2 0.8-1.4 Activated Partial Thromboplast Time 24 24-35 SEC Sodium Level 135 135-145 MMOL/L Potassium Level 3.7 3.6-5.0 MMOL/L Chloride Level 110 #H 98-107 MMOL/L Carbon Dioxide Level 19 L 21-32 MMOL/L Anion Gap 6 5-14 MMOL/L Blood Urea Nitrogen 13 7-18 MG/DL Creatinine 0.63 0.60-1.30 MG/DL Estimat Glomerular Filtration Rate > 60 BUN/Creatinine Ratio 21 Glucose Level 110 H 70-105 MG/DL Calcium Level 7.2 L 8.5-10.1 MG/DL Glucometer 135 H 209 H 232 H 70-110 MG/DL Test 08/06/18 10:39 08/06/18 11:42 08/06/18 12:00 08/06/18 12:24 Range/Units Glucometer 248 H 298 H 284 H 70-110 MG/DL Hemoglobin 7.1 #L 11.5-16.0 G/DL Test 08/06/18 13:38 08/06/18 14:45 08/06/18 16:18 08/06/18 18:30 Range/Units Glucometer 297 H 437 *H 238 H 70-110 MG/DL Sodium Level 130 L 135-145 MMOL/L Potassium Level 4.6 3.6-5.0 MMOL/L Chloride Level 100 98-107 MMOL/L Carbon Dioxide Level 19 L 21-32 MMOL/L Anion Gap 11 5-14 MMOL/L Blood Urea Nitrogen 15 7-18 MG/DL Creatinine 0.83 0.60-1.30 MG/DL Estimat Glomerular Filtration Rate > 60 BUN/Creatinine Ratio 18 Glucose Level 317 H 70-105 MG/DL Calcium Level 8.6 8.5-10.1 MG/DL Test 08/06/18 21:32 08/07/18 03:24 08/07/18 10:57 08/07/18 11:59 Range/Units Glucometer 310 H 338 H 70-110 MG/DL White Blood Count 10.8 4.3-11.0 10^3/uL Red Blood Count 4.01 L 4.35-5.85 10^6/uL Hemoglobin 8.1 L 11.5-16.0 G/DL Hematocrit 28 L 35-52 % Mean Corpuscular Volume 70 L 80-99 FL Mean Corpuscular Hemoglobin 20 L 25-34 PG Mean Corpuscular Hemoglobin Concent 29 L 32-36 G/DL Red Cell Distribution Width 25.8 H 10.0-14.5 % Platelet Count 381 130-400 10^3/uL Mean Platelet Volume 9.0 7.4-10.4 FL Sodium Level 132 L 135-145 MMOL/L Potassium Level 4.7 3.6-5.0 MMOL/L Chloride Level 102 98-107 MMOL/L Carbon Dioxide Level 23 21-32 MMOL/L Anion Gap 7 5-14 MMOL/L Blood Urea Nitrogen 12 7-18 MG/DL Creatinine 0.79 0.60-1.30 MG/DL Estimat Glomerular Filtration Rate > 60 BUN/Creatinine Ratio 15 Glucose Level 246 H 70-105 MG/DL Calcium Level 8.7 8.5-10.1 MG/DL Phosphorus Level 2.7 2.3-4.7 MG/DL Magnesium Level 2.0 1.8-2.4 MG/DL Triglycerides Level 119 <150 MG/DL Cholesterol Level 117 < 200 MG/DL LDL Cholesterol Direct 40 1-129 MG/DL VLDL Cholesterol 24 5-40 MG/DL HDL Cholesterol 49 40-60 MG/DL Lab Scanned Report Transfusion Reaction Form [id number] Radiology Reviewed 08/05 Right LE US: IMPRESSION: 1. Severe diffuse atherosclerotic disease right lower extremity arterial system with high-grade stenosis popliteal artery and severe trifurcation disease. 08/05 Right LE venous doppler US: negative for DVT 08/06 V/Q scan- no PE seen Discharge Instructions to patient/family Please see electronic discharge instructions given to patient. Discharge Medications Reviewed and agree with Discharge Medication list on patient's Discharge Instruction sheet Clinical Quality Measures DVT/VTE Risk/Contraindication: Risk Factor Score Per Nursin RFS Level Per Nursing on Admit: 4+=Very High Copy Copies To 1: CHAKA Matt Copies To 2: DARBY GOLDSTEIN BETHANY N MD Aug 07, 2018 2:28 pm
== END 2018-08-07 14:15 | disposition home or self-care (01) | DRG 638 ==
LOC: EDUNIT# 20:19 → ER 20:21 → ICU 08-06 00:20
PROVIDERS: ADMIT Family Medicine; ATTEND Family Medicine
DX: E11.10 Type 2 diabetes mellitus with ketoacidosis without coma (principal); E11.65 Type 2 diabetes mellitus with hyperglycemia; I50.22 Chronic systolic (congestive) heart failure; I24.0 Acute coronary thrombosis not resulting in myocardial infarction; E11.51 Type 2 diabetes mellitus with diabetic peripheral angiopathy without gangrene; J44.9 Chronic obstructive pulmonary disease, unspecified; I73.9 Peripheral vascular disease, unspecified; Z79.4 Long term (current) use of insulin; Z91.19 Patient's noncompliance with other medical treatment and regimen; D50.0 Iron deficiency anemia secondary to blood loss (chronic); F17.210 Nicotine dependence, cigarettes, uncomplicated; D47.3 Essential (hemorrhagic) thrombocythemia; N28.9 Disorder of kidney and ureter, unspecified; R79.89 Other specified abnormal findings of blood chemistry; N93.8 Other specified abnormal uterine and vaginal bleeding; Z89.512 Acquired absence of left leg below knee
CPT/HCPCS: 36415; 36600; 71045; 78582; 80048; 80053; 80061; 81000; 82805; 82962; 83036; 83735; 84100; 85018; 85025; 85027; 85379; 85610; 85730; 86850; 86900; 86901; 86922; 87081; 87088; 93005; 93041; 93306; 93926; 94640; 96361; 96365; 96375; 96376

== ENCOUNTER 2018-08-08 18:49 | Emergency (ER) | payer SELFPAY ==
[~2018-08-08] VITALS: Ht 180.3 cm; Wt 65.8 kg
[~2018-08-08 18:49] MED LIST changes: +ATOR40TA70 PO; +CARV3.122 PO; +INSU100I23 SQ; +INSU100I29 SQ; +LOVA40TA2 PO
--- OUTSIDE RECORDS SUMMARY | 2018-08-08 18:55 | XMS REPORT | Encounter Summary ---
Author Author [facility] Organization [facility] Address Unknown Phone Unavailable Care Team Providers Care Tack Puller Machine Name Role Phone Dave Lorenzana MD PCP Reason for Visit * Reason Comments General Question Encounter Details Date Type Department Care Team Description 05/10/2018 Telephone [facility] Caitlyn Krueger MD General Question Physicians - OBGYN [address] [facility] [place] [address] [address] [place] [id number] Social History Tobacco Use Types Packs/Day Years [...] note may be different from the original. [facility] letter sent. Previous Messages ----- Message ----- [...]
--- OUTSIDE RECORDS SUMMARY | 2018-08-08 18:55 | XMS REPORT | Clinical Summary ---
Author Author [facility] Organization [facility] Address Unknown Phone Unavailable Care Team Providers Care Spring Clipper Name Role Phone Dave Lorenzana MD PCP Source Comments Some departments are not documenting in the electronic medical record. If you do not see the information that you expected, contact Release of Information in the Health Information Management department at [phone] for further assistance in locating additional records.[facility] Allergies Active Allergy Reactions Severity Noted Date [...] Further 18 scripts to be given by PCP/STRATEGIC PLANNING DIRECTOR nystatin (NYSTOP) 100,000 Apply to pannus twice 15 g 0 04/18/20 Active unit/g topical powder daily 18 Active Problems Problem Noted Date Hypotension 04/18/2018 Bradycardia 04/18/2018 Acute systolic CHF (congestive heart failure) ([facility]) 04/13/2018 LV (left ventricular) mural thrombus without CO 04/13/2018 Iron deficiency anemia 04/13/2018 Polysubstance abuse ([facility]) 04/13/2018 DM (diabetes mellitus) ([facility]) 04/13/2018 Fibroids 04/13/2018 Mass of [...]
[2018-08-08] MEDS ORDERED: NS 250 ML (IVPB) BAG IV ONE (19:45)
[2018-08-08] MEDS ORDERED: IOHEXOL 350 MG/ML 150 ML (OMNIPAQUE 350) VIAL IV ONE (19:45)
[2018-08-08 19:59] LABS: BASOPHILS % (AUTO) 0 % (0-10); EOSINOPHILS % (AUTO) 0 % (0-10); HEMATOCRIT 31 % (35-52); HEMOGLOBIN 9.2 G/DL (11.5-16.0); LYMPHOCYTES # (AUTO) 0.8 X 10^3 (1.0-4.0); LYMPHOCYTES % (AUTO) 4 % (12-44); MEAN CORPUSCULAR HEMOGLOBIN 20 PG (25-34); MEAN CORPUSCULAR HGB CONC 29 G/DL (32-36); MEAN CORPUSCULAR VOLUME 69 FL (80-99); MEAN PLATELET VOLUME 10.2 FL (7.4-10.4); MONOCYTES # (AUTO) 1.7 X 10^3 (0.0-1.0); MONOCYTES % (AUTO) 9 % (0-12); NEUTROPHILS # (AUTO) 16.3 X 10^3 (1.8-7.8); NEUTROPHILS % (AUTO) 86 % (42-75); PLATELET COUNT 347 10^3/uL (130-400); RED BLOOD COUNT 4.55 10^6/uL (4.35-5.85); RED CELL DISTRIBUTION WIDTH 28.7 % (10.0-14.5); WHITE BLOOD COUNT 18.9 10^3/uL (4.3-11.0)
--- NOTE | 2018-08-08 20:01 | ED General ---
General Chief Complaint: General Problems/Pain Stated Complaint: PAIN STARTING IN LEG GOING UP Nursing Triage Note: Pt brought to rm 1 in pt's wheelchair. Pt has left leg amputation from approximately 3 years ago. Pt states pt was released from [facility] yesterday and does not know why pt was admitted here. Pt states pt began having pain in the left leg after pt was released yesterday radiating all the way up the pt's side. Pt crying during assessment. Nursing Sepsis Screen: No Definite Risk Source of Information: Patient, Old Records Exam Limitations: Other (PT IS A VERY DIFFICULT AND LIMITED HISTORIAN) History of Present Illness Date Seen by Provider: Aug 08, 2018 Time Seen by Provider: 19:20 Initial Comments PT ARRIVES VIA POV FROM HOME, IN A WHEELCHAIR PT STATES "HURT FROM MY LEG ALL THE WAY UP" --STATES PAIN IS IN HER RIGHT LEG, AND POINTS THAT IT "GOES ALL THE WAY UP" AND POINTS TO LEFT CHEST AND LEFT LATERAL NECK PT STATES PAIN "STARTED WHEN I GOT HOME YESTERDAY" PT WAS ADMITTED TO HOSPITAL 08/06-08/07 FOR MULTIPLE PROBLEMS INCLUDING DKA, UTI PT HAS NOT TAKEN ANYTHING OR PAIN --STATES "NOTHING WORKS" STATES SHE HAS BEEN SLEEPING THE WHOLE TIME SINCE SHE GOT HOME YESTERDAY PT STATES SHE HAS NOT TAKEN ANY OF HER MEDICATIONS SINCE SHE WAS DISMISSED-- GIVES MULTIPLE CONVOLUTED ANSWERS TO WHY SHE HASN'T TAKEN ANY OF HER MEDICATIONS, THEN STATES SHE JUST GOT THEM FILLED AT [facility] AND THEN CAME HERE , YET STILL DID NOT TAKE ANY OF THE MEDICATIONS PT HAS NOT CHECKED HER BLOOD GLUCOSE SINCE SHE WAS RELEASED FROM THE HOSPITAL AND STATES SHE HAS NOT TAKEN ANY INSULIN SINCE SHE WAS RELEASED FROM THE HOSPITAL ( PT RARELY, IF EVER, CHECKS HER BLOOD GLUCOSE AT HOME NORMALLY ). 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 RAMESH. 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 HAS BEEN EVALUATED AT FOR THIS PROBLEM PT HAS PENITENTIARY,EXTREME NON-COMPLIANCY IN ALL ASPECTS OF CARE, INCLUDING NOT TAKING ANY OF HER MEDICATIONS INCLUDING COUMADIN PT WITH MULTIPLE VISITS HERE Allergies and Home Medications Allergies Coded Allergies: Penicillins (Verified Allergy, Unknown, 12/08/07) Home Medications Aspirin 325 Mg Tablet, 325 MG PO DAILY, (Reported) Atorvastatin Calcium 40 Mg Tablet, 40 MG PO DAILY Prescribed by: JERILYN RAMESH on 08/07/18 1226 Carvedilol 3.125 Mg Tablet, 3.125 MG PO BID Prescribed by: JERILYN RAMESH on 08/07/18 1225 Furosemide 40 Mg Tablet, 40 MG PO DAILY Prescribed by: JERILYN RAMESH on 08/07/18 1225 Insulin Detemir 100 Unit/1 Ml Insuln.pen, 45 UNIT SQ HS, (Reported) Insulin Lispro 100 Unit/1 Ml Insuln.pen, 12 UNIT SQ AC, (Reported) Lisinopril 2.5 Mg Tablet, 2.5 MG PO DAILY Prescribed by: JERILYN RAMESH on 08/07/18 1225 Metformin HCl 500 Mg Tablet, 500 MG PO BID Prescribed by: JERILYN RAMESH on 08/07/18 1225 Warfarin Sodium 7.5 Mg Tablet, 0 PO UD Take 2 tabs (15 mg) daily 3x per week (M/W/) and 1 tab daily 4x per week ( Tue/Tue/Tue/) Prescribed by: JERILYN RAMESH on 08/07/18 1225 Past Utabsis-Lvmwtn-Ngaypt Hx Patient Social History Alcohol Use: Denies Use Recreational Drug Use: No (SMOKES 1PPD) Type Used: Cigarettes Former Smoker, Quit: Aug 07, 2016 2nd Hand Smoke Exposure: Yes Recent Foreign Travel: No Contact w/Someone Who Travel: No Recent Infectious Disease Expo: No Recent Hopitalizations: Yes ([id number] ARLETTE) Physical Abuse: No Sexual Abuse: No Immunizations Up To Date Tetanus Booster (TDap): Less than 5yrs PED Vaccines UTD: No Date of Pneumonia Vaccine: Jun 12, 2008 Date of Influenza Vaccine: Sep 17, 2014 Seasonal Allergies Seasonal Allergies: No Past Medical History Surgeries: Yes Section, Gallbladder, Vascular Surgery Respiratory: Yes COPD 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, Peripheral Vascular Neurological: Yes Neuropathy 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 Disorders: No 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 Disorders: Denies CORPORATE SPECIALIST History: Menopausal Sexually Transmitted Disease: No HIV/AIDS: No Genitourinary: Yes Bladder Infection, Kidney Stones Gastrointestinal: No Musculoskeletal: Yes Amputee, Arthritis Endocrine: Yes (NON-COMPLIANCE) Diabetes, Insulin dep HEENT: No Cancer: No Psychosocial: Yes Depression Integumentary: No Blood Disorders: Yes (iron deficiency anemia) Adverse Reaction/Blood Tranf: No Family Medical History Diabetes mellitus 19 FATHER 19 MOTHER G8 BROTHER G8 SISTER Myocardial infarction 19 MOTHER Heart Disease, Diabetes Physical Exam Vital Signs Vital Signs - First Documented 08/08/18 19:05 Temp 98.4 Pulse 105 Resp 20 B/P (MAP) 112/62 (79) Pulse Ox 99 O2 Delivery Room Air Capillary Refill : Less Than 3 Seconds Height, Weight, BMI Height: 5'11.00" Weight: 145lbs. 2.0oz. [id number]; 19.9 BMI Method:Stated Focused Exam Lactate Level 08/08/18 21:23: Lactic Acid Level 2.75*H Lactic Acid Level Laboratory Tests Test 08/08/18 21:23 Lactic Acid Level 2.75 MMOL/L (0.50-2.00) *H Progress/Results/Core Measures Suspected Sepsis Recent Fever Within 48 Hours: No Infection Criteria Present: None New/Unexplained Altered Menta: No Sepsis Screen: No Definite Risk SIRS Temperature:98.4 Pulse: 105 Respiratory Rate: 20 Laboratory Tests 08/08/18 19:47: White Blood Count 18.9H Blood Pressure 112 /62 Mean: 79 08/08/18 21:23: Lactic Acid Level 2.75*H Laboratory Tests 08/08/18 19:47: Creatinine 1.42H, INR Comment 1.2, Platelet Count 347, Total Bilirubin 0.7 Results/Orders Lab Results Laboratory Tests Test 08/08/18 19:47 08/08/18 20:33 08/08/18 21:05 08/08/18 21:23 Range/Units White Blood Count 18.9 H 4.3-11.0 10^3/uL Red Blood Count 4.55 4.35-5.85 10^6/uL Hemoglobin 9.2 L 11.5-16.0 G/DL Hematocrit 31 L 35-52 % Mean Corpuscular Volume 69 L 80-99 FL Mean Corpuscular Hemoglobin 20 L 25-34 PG Mean Corpuscular Hemoglobin Concent 29 L 32-36 G/DL Red Cell Distribution Width 28.7 H 10.0-14.5 % Platelet Count 347 130-400 10^3/uL Mean Platelet Volume 10.2 7.4-10.4 FL Neutrophils (%) (Auto) 86 H 42-75 % Lymphocytes (%) (Auto) 4 L 12-44 % Monocytes (%) (Auto) 9 0-12 % Eosinophils (%) (Auto) 0 0-10 % Basophils (%) (Auto) 0 0-10 % Neutrophils # (Auto) 16.3 H 1.8-7.8 X 10^3 Lymphocytes # (Auto) 0.8 L 1.0-4.0 X 10^3 Monocytes # (Auto) 1.7 H 0.0-1.0 X 10^3 Eosinophils # (Auto) 0.0 0.0-0.3 10^3/uL Basophils # (Auto) 0.0 0.0-0.1 10^3/uL Neutrophils % (Manual) 86 % Lymphocytes % (Manual) 5 % Monocytes % (Manual) 9 % Eosinophils % (Manual) 0 % Basophils % (Manual) 0 % Band Neutrophils 0 % Hypochromasia MODERATE Anisocytosis SLIGHT Microcytosis MODERATE Prothrombin Time 15.0 H 12.2-14.7 SEC INR Comment 1.2 0.8-1.4 Activated Partial Thromboplast Time 31 24-35 SEC Sodium Level 121 #*L 135-145 MMOL/L Potassium Level 4.6 3.6-5.0 MMOL/L Chloride Level 89 L 98-107 MMOL/L Carbon Dioxide Level 19 L 21-32 MMOL/L Anion Gap 13 5-14 MMOL/L Blood Urea Nitrogen 24 H 7-18 MG/DL Creatinine 1.42 H 0.60-1.30 MG/DL Estimat Glomerular Filtration Rate 39 BUN/Creatinine Ratio 17 Glucose Level 768 *H 70-105 MG/DL Calcium Level 9.2 8.5-10.1 MG/DL Corrected Calcium 9.7 8.5-10.1 MG/DL Magnesium Level 1.9 1.8-2.4 MG/DL Total Bilirubin 0.7 0.1-1.0 MG/DL Aspartate Amino Transf (AST/SGOT) 65 H 5-34 U/L Alanine Aminotransferase (ALT/SGPT) 47 0-55 U/L Alkaline Phosphatase 89 40-136 U/L Troponin I < 0.30 <0.30 NG/ML B-Type Natriuretic Peptide 883.6 H <100.0 PG/ML Total Protein 6.7 6.4-8.2 GM/DL Albumin 3.4 3.2-4.5 GM/DL Amylase Level 13 L 25-125 U/L Lipase 5 L 8-78 U/L Serum Test, Qualitative NEGATIVE NEGATIVE Acetaminophen Level < 10 L 10-30 UG/ML Serum Alcohol < 10 <10 MG/DL Blood Gas Puncture Site LT RAD Blood Gas Patient Temperature 98.4 Arterial Blood pH 7.43 7.37-7.43 Arterial Blood Partial Pressure CO2 31 L 35-45 MMHG Arterial Blood Partial Pressure O2 77 L 79-93 MMHG Arterial Blood HCO3 20 L 23-27 MMOL/L Arterial Blood Total CO2 21.1 21.0-31.0 MMOL/L Arterial Blood Oxygen Saturation 96 94-100 % Arterial Blood Base Excess -3.5 L -2.5-2.5 MMOL/L Garcia Test YES-POS Blood Gas Ventilator Setting NO Blood Gas Inspired Oxygen ROOM AIR Urine Color YELLOW Urine Clarity CLEAR Urine pH 5 5-9 Urine Specific Mangum 1.015 L 1.016-1.022 Urine Protein 2+ H NEGATIVE Urine Glucose (UA) 4+ H NEGATIVE Urine Ketones 2+ H NEGATIVE Urine Nitrite NEGATIVE NEGATIVE Urine Bilirubin NEGATIVE NEGATIVE Urine Urobilinogen NORMAL NORMAL MG/DL Urine Leukocyte Esterase NEGATIVE NEGATIVE Urine RBC (Auto) 1+ H NEGATIVE Urine RBC 0-2 /HPF Urine WBC RARE /HPF Urine Crystals PRESENT H /LPF Urine Amorphous Sediment FEW KAILEY URATES H /LPF Urine Bacteria NEGATIVE /HPF Urine Casts NONE /LPF Urine Mucus NEGATIVE /LPF Urine Culture Indicated NO Urine Opiates Screen POSITIVE H NEGATIVE Urine Oxycodone Screen NEGATIVE NEGATIVE Urine Methadone Screen NEGATIVE NEGATIVE Urine Propoxyphene Screen NEGATIVE NEGATIVE Urine Barbiturates Screen NEGATIVE NEGATIVE Ur Tricyclic Antidepressants Screen NEGATIVE NEGATIVE Urine Phencyclidine Screen NEGATIVE NEGATIVE Urine Amphetamines Screen POSITIVE H NEGATIVE Urine Methamphetamines Screen POSITIVE H NEGATIVE Urine Benzodiazepines Screen NEGATIVE NEGATIVE Urine Cocaine Screen NEGATIVE NEGATIVE Urine Cannabinoids Screen NEGATIVE NEGATIVE Lactic Acid Level 2.75 *H 0.50-2.00 MMOL/L My Orders Orders - SENDY CHU K DO Saline Lock/Iv-Start (08/08/18) Ekg Tracing (08/08/18) Monitor-Rhythm Ecg Trace Only (08/08/18) Acetaminophen (08/08/18) Alcohol (08/08/18) Amylase (08/08/18) BNP (08/08/18) Cbc With Automated Diff (08/08/18) Comprehensive Metabolic Panel (08/08/18) Drug Screen Stat (Urine) (08/08/18) Lipase (08/08/18) Magnesium (08/08/18) Protime With Inr (08/08/18) Partial Thromboplastin Time (08/08/18) Troponin I (08/08/18) Ua Culture If Indicated (08/08/18:) Ct Angio Chst/Abd/Pelv W (08/08/18:30) Chest 1 View, Ap/Pa Only (08/08/18:) Arterial Blood Gas (08/08/18:) Iohexol Injection (Omnipaque 350 Mg/Ml 1 (08/08/18 19:45) Ns (Ivpb) (Sodium Chloride 0.9%) (08/08/18 19:45) Hcg,Qualitative Serum (08/08/18 20:03) Manual Differential (08/08/18 19:47) Saline Lock/Iv-Start (08/08/18 20:38) Ns Iv 1000 Ml (Sodium Chloride 0.9%) (08/08/18 20:38) Insulin (Regular) Human (Humulin R (Per (08/08/18 20:45) Straight Cath For Spec.-Adult (08/08/18 20:44) Us Venous Lower Ext Conrad (08/08/18:30) Catheter(Urinary) Insert & Ass 03,15 (08/08/18 21:01) Lactic Acid Analyzer (08/08/18 21:14) Blood Culture (08/08/18 21:14) Cefepime Injection (Maxipime Injection) (08/08/18 21:30) Heparin Drip 82224 Unit/500ml (Heparin (08/08/18 21:20) Heparin (Bolus Per Protocol) (Heparin (B (08/08/18 21:30) Fentanyl Injection (Sublimaze Injection (08/08/18 21:28) Medications Given in ED Current Medications Medications Dose Ordered Sig/Vaughn Route Start Time Stop Time Status Last Admin Dose Admin Cefepime HCl 2000 mg/Sodium Chloride 50 ml @ 100 mls/hr ONCE ONCE IV 08/08/18 21:30 08/08/18 21:59 DC 08/08/18 21:45 100 MLS/HR Heparin Sodium (Porcine) HEPARIN FULL PROTOC... ONCE ONCE IV 08/08/18 21:30 08/08/18 21:31 DC 08/08/18 22:16 5,000 UNIT Heparin Sodium/ Dextrose 500 ml @ 0 mls/hr Q0M ONCE IV 08/08/18 21:20 08/08/18 21:21 DC 08/08/18 22:17 24 MLS/HR Insulin Human Regular 30 unit ONCE ONCE IV 08/08/18 20:45 08/08/18 20:46 DC 08/08/18 21:06 30 UNIT Iohexol 150 ml ONCE ONCE IV 08/08/18 19:45 08/08/18 19:46 DC 08/08/18 20:13 125 ML Sodium Chloride 250 ml ONCE ONCE IV 08/08/18 19:45 08/08/18 19:46 DC 08/08/18 20:14 80 ML Sodium Chloride 1,000 ml @ 0 mls/hr Q0M ONCE IV 08/08/18 20:38 08/08/18 20:39 DC 08/08/18 21:07 1,000 MLS/HR Vital Signs/I&O 08/08/18 19:05 Temp 98.4 Pulse 105 Resp 20 B/P (MAP) 112/62 (79) Pulse Ox 99 O2 Delivery Room Air Capillary Refill : Less Than 3 Seconds Blood Pressure Mean: 79 Progress Note : Progress Note NO DETERIORATION IN PT'S CONDITION DURING ER STAY Departure Communication (Admissions) 2054--CALLED DR. RAMESH, ADVISES TRANSFER TO , PT HAS BEEN THERE IN MARCH FOR THIS PROBLEM OF THROMBUS IN HER VENTRICLE 2055--CALLED [facility] TRANSFER LINE. 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 Referrals: YANI CESAR MD (PCP/Family) Primary Care Physician SENDY CHU DO Aug 08, 2018 20:00
[2018-08-08 20:11] LABS: INR 1.2 (0.8-1.4)
[2018-08-08 20:20] LABS: ALANINE AMINOTRANSFERASE 47 U/L (0-55); ALBUMIN 3.4 GM/DL (3.2-4.5); ALKALINE PHOSPHATASE 89 U/L (40-136); AMYLASE 13 U/L (25-125); BILIRUBIN,TOTAL 0.7 MG/DL (0.1-1.0); BUN/CREATININE RATIO 17; CALCIUM 9.2 MG/DL (8.5-10.1); CARBON DIOXIDE 19 MMOL/L (21-32); CHLORIDE 89 MMOL/L (98-107); CREATININE SERUM 1.42 MG/DL (0.60-1.30); GFR ESTIMATED 39; LIPASE 5 U/L (8-78); MAGNESIUM 1.9 MG/DL (1.8-2.4); POTASSIUM 4.6 MMOL/L (3.6-5.0); TOTAL PROTEIN 6.7 GM/DL (6.4-8.2)
[2018-08-08 20:28] LABS: ACETAMINOPHEN < 10 UG/ML (10-30); GLUCOSE 768 MG/DL (70-105); SODIUM 121 MMOL/L (135-145)
[2018-08-08 20:29] LABS: ANISOCYTOSIS SLIGHT; BAND NEUTROPHILS 0 %; BASOPHILS % (MANUAL) 0 %; EOSINOPHILS % (MANUAL) 0 %; HYPOCHROMASIA MODERATE; LYMPHOCYTES % (MANUAL) 5 %; MICROCYTOSIS MODERATE; MONOCYTES % (MANUAL) 9 %; NEUTROPHILS % (MANUAL) 86 %
[2018-08-08] MEDS ORDERED: NS IV 1000 ML 1,000 ML IV ONE ×2 (20:38→22:38)
--- NOTE | 2018-08-08 20:40 | Diagnostic Imaging Report ---
EXAMINATION: Chest radiograph, portable AP view. DATE: August 08, 2018 at 1953 hours. INDICATION: 48-year-old female, chest pain. COMPARISON: August 07, 2018. FINDINGS: Heart size and mediastinal contours are unchanged and unremarkable. There is no identified pneumothorax. There is no identified pleural effusion. There are somewhat ill-defined nodular areas of attenuation projecting over the right mid and lower lung which are not present on the recent comparison exam. This may be artifactual and external to the patient. Recommend correlation. These do not appear to be likely arising from within the lung parenchyma. There is no identified displaced rib fracture. IMPRESSION: 1. Ill-defined nodular opacities projecting over the right mid and lower lung which may be artifactual and external to the patient. These were not present on August 07, 2018 and do not appear to be within the lung parenchyma based on appearance. Recommend correlation. 2. No otherwise identified potential acute cardiopulmonary abnormality. Dictated by: Dictated on workstation # [id number]
[2018-08-08 20:42] LABS: ABG BASE EXCESS -3.5 MMOL/L (-2.5-2.5); ABG OXYGEN SATURATION 96 % (94-100); ABG PCO2 31 MMHG (35-45); ABG PH 7.43 (7.37-7.43); ABG PO2 77 MMHG (79-93); ABG TCO2 21.1 MMOL/L (21.0-31.0)
[2018-08-08 20:43] LABS: ALLENS TEST YES-POS; INSPIRED O2 ROOM AIR; PATIENT TEMP 98.4; VENTILATOR NO
[2018-08-08] MEDS ORDERED: inSUlin (REGULAR) HUMAN 1 UNIT/0.01 ML (CHARGE PER UNIT) IV ONE ×2 (20:45→23:15)
--- NOTE | 2018-08-08 21:02 | Diagnostic Imaging Report ---
PROCEDURE: CT angiography of the chest with contrast and CT abdomen and pelvis with contrast. TECHNIQUE: Multiple contiguous axial images were obtained through the chest, abdomen and pelvis after administration of intravenous contrast. Reconstructed MIP CT angiography acquisitions of the aorta were then performed. DATE: August 08, 2018. COMPARISON: CT pelvis August 04, 2012. Chest radiograph August 08, 2018. INDICATION: 48-year-old female, chest and abdominal pain extending to the legs. FINDINGS: There are mild upper lobe predominant changes of emphysema. There is no identified pulmonary nodule or lung mass. There is no focal airspace consolidation. There is no pneumothorax. There is no pleural effusion. The central airways are patent. There is no identified central or segmental pulmonary embolus. There is limited evaluation for subsegmental pulmonary emboli given the timing of contrast bolus. The main pulmonary artery is normal in caliber. The heart is not enlarged. There is a low-attenuation focus within the left ventricle on axial image 117 which measures 3.4 x 2.8 cm in size. There are mild atherosclerotic calcifications noted. There is no pericardial effusion. There is no abnormally enlarged mediastinal, hilar, or axillary lymph node which meets CT size criteria for adenopathy. The liver is normal in size and contour. There is no identified liver lesion. The main, right, and left portal veins are patent. The patient is status post cholecystectomy. There is no intrahepatic or extrahepatic bile duct dilation. The main pancreatic duct is not abnormally dilated. The pancreatic parenchyma is unremarkable. The spleen is not enlarged. There are multiple wedge-shaped areas of low attenuation in the spleen which may reflect splenic infarcts. The adrenal glands are unremarkable. There are also multiple wedge-shaped areas of low attenuation in the left kidney which likely relates to multiple left renal infarcts, particularly given the appearance of the spleen. This appearance could also be seen with pyelonephritis although this is considered significantly less likely given the findings in the left ventricle and spleen. The right kidney is unremarkable in appearance. The urinary collecting systems are not distended. There is no identified renal or ureteral stone. The urinary bladder is distended. There is no prominent wall thickening of the urinary bladder. There is a large heterogeneous attenuation mass which may be arising from the superior margin of the uterus measuring approximately 11.1 x 9.2 x 10.4 cm in size. There is a moderate to large amount of stool within the colon. The left colon and sigmoid colon are mildly dilated. There is no dilation of the right side of the colon. There is no free intraperitoneal air. There is a large fat-containing anterior abdominal wall hernia. There is no identified drainable fluid collection. There is no free pelvic fluid. The celiac axis and superior mesenteric arteries are patent. The proximal aspects of the right and left renal arteries appear patent. There is prominent atherosclerotic disease below the level of the renal artery origins. There is occlusion of the left superficial femoral artery and near-complete occlusion of the left common femoral artery. There is no identified contrast-filled left deep femoral vein. The right common femoral artery and superficial femoral artery are patent. There is no identified acute bony abnormality. There are degenerative changes of the spine. IMPRESSION: CT CHEST, ABDOMEN AND PELVIS. 1. Low-attenuation masslike abnormality within the left ventricle measuring 3.4 x 2.8 cm in size. Differential diagnostic considerations would include thrombus or a mass such as a metastatic lesion. This is nonspecific. 2. 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 3. Near-complete occlusion of the left common femoral artery with occlusion of the left superficial femoral artery and left deep femoral artery. 4. Large pelvic mass favored to arise from the superior aspect of the uterus. This could reflect a large uterine leiomyoma although is not specific. Dr. Guzmán was notified by telephone of the above findings at 2046 hours on August 08, 2018 and acknowledged receipt of this critical result. Dictated by: Dictated on workstation # [id number]
--- NOTE | 2018-08-08 21:07 | Diagnostic Imaging Report ---
PROCEDURE: US Venous Lower Ext Conrad. TECHNIQUE: Multiple real-time grayscale images were obtained over the lower extremities in various projections, bilaterally. Additional duplex Doppler and color Doppler images were also obtained. DATE: August 08, 2018. INDICATION: 48-year-old female, left leg pain. Evaluation for deep venous thrombosis. COMPARISON: None. FINDINGS: The left common femoral vein demonstrates blood flow and is patent. The left deep femoral vein is patent. The proximal and mid left superficial femoral veins do not demonstrate internal blood flow and appear to be completely occluded. There is blood flow in the left superficial femoral vein distally. The left lower extremity venous vasculature below the level of the knee is not imaged. The right common femoral vein, right superficial femoral vein, and deep femoral vein are patent. The right popliteal vein is patent. The right posterior tibial vein is patent. IMPRESSION: 1. No demonstrated blood flow in the left proximal or mid left superficial femoral vein compatible with occlusive thrombus. 2. Please see same day CT angiography chest, abdomen, and pelvis report for findings better seen on CT. Dictated by: Dictated on workstation # [id number]
[2018-08-08 21:14] LABS: BILIRUBIN,URINE NEGATIVE (NEGATIVE); CLARITY,URINE CLEAR; COLOR,URINE YELLOW; GLUCOSE, URINE (UA) 4+ (NEGATIVE); KETONES,URINE 2+ (NEGATIVE); LEUKOCYTE ESTERASE ,URINE NEGATIVE (NEGATIVE); NITRITE,URINE NEGATIVE (NEGATIVE); PH,URINE 5 (5-9); PROTEIN,URINE 2+ (NEGATIVE); UROBILINOGEN,URINE NORMAL (NORMAL)
[2018-08-08] MEDS ORDERED: HEParin DRIP 25000 UNIT/500ML 500 ML IV ONE (21:20)
[2018-08-08] MEDS ORDERED: fentaNYL INJECTION 100 MCG/2 ML AMP IVP STA ×2 (21:28→23:27)
[2018-08-08 21:30] LABS: AMPHETAMINE SCREEN, URINE POSITIVE (NEGATIVE); BARBITURATE SCREEN URINE NEGATIVE (NEGATIVE); BENZODIAZEPINES SCREEN URINE NEGATIVE (NEGATIVE); CANNABINOID SCREEN, URINE NEGATIVE (NEGATIVE); COCAINE SCREEN URINE NEGATIVE (NEGATIVE); METHADONE STAT NEGATIVE (NEGATIVE); METHAMPHETAMINE SCREEN URINE S POSITIVE (NEGATIVE); OPIATE SCREEN URINE POSITIVE (NEGATIVE); OXYCODONE STAT NEGATIVE (NEGATIVE); PROPOXYPHENE STAT NEGATIVE (NEGATIVE); TRICYCLIC ANTIDEPRESSANTS SCRE NEGATIVE (NEGATIVE)
[2018-08-08] MEDS ORDERED: HEParin 1000 UNIT/ML (10ML VIAL) FOR BOLUS IV ONE (21:30)
[2018-08-08] MEDS ORDERED: CEFEPIME INJECTION 2,000 MG in NS (IVPB) 50 ML IV ONE (21:30)
[2018-08-08 21:31] LABS: BACTERIA,URINE NEGATIVE /HPF; RBC,URINE 0-2 /HPF; WBC,URINE RARE /HPF
[2018-08-08 21:32] LABS: AMORPHOUS SEDIMENT,UR FEW AMOR URATES /LPF
[2018-08-08] MEDS ORDERED: inSUlin (REGULAR) HUMAN 1 UNIT/0.01 ML (CHARGE PER UNIT) SC ONE (23:15)
[2018-08-09 01:40] VITALS: BP 105/56
== END 2018-08-09 01:40 | disposition short-term general hospital (02) ==
LOC: EDUNIT# 18:49 → ER 18:50
DX: E11.10 Type 2 diabetes mellitus with ketoacidosis without coma (principal); I51.3 Intracardiac thrombosis, not elsewhere classified; I74.8 Embolism and thrombosis of other arteries; N28.0 Ischemia and infarction of kidney; I74.3 Embolism and thrombosis of arteries of the lower extremities; A41.9 Sepsis, unspecified organism; R07.9 Chest pain, unspecified; E87.1 Hypo-osmolality and hyponatremia; F19.10 Other psychoactive substance abuse, uncomplicated; F15.10 Other stimulant abuse, uncomplicated; J44.9 Chronic obstructive pulmonary disease, unspecified; E11.42 Type 2 diabetes mellitus with diabetic polyneuropathy; F32.9 Major depressive disorder, single episode, unspecified; D50.9 Iron deficiency anemia, unspecified; Z82.49 Family history of ischemic heart disease and other diseases of the circulatory system; Z87.448 Personal history of other diseases of urinary system; Z86.718 Personal history of other venous thrombosis and embolism; Z79.82 Long term (current) use of aspirin; Z79.4 Long term (current) use of insulin; Z79.01 Long term (current) use of anticoagulants; Z87.891 Personal history of nicotine dependence; Z87.59 Personal history of other complications of pregnancy, childbirth and the puerperium; Z88.0 Allergy status to penicillin; Z91.14 Patient's other noncompliance with medication regimen
CPT/HCPCS: 36415; 36600; 51701; 51702; 71045; 71275; 74174; 80053; 80306; 80320; 80329; 81000; 82150; 82805; 82962; 83605; 83690; 83735; 83880; 84484; 84703; 85007; 85027; 85610; 85730; 87040; 87077; 87186; 93005; 93041; 93970; 96361; 96365; 96366; 96367; 96375; 96376; 99291

== ENCOUNTER 2018-09-06 04:26 | Inpatient (IN) | payer SELFPAY ==
[~2018-09-06] VITALS: Ht 180.3 cm; Wt 75.3 kg
[2018-09-06] VITALS (16 sets, daily range): BP systolic 126–162; BP diastolic 53–88
--- OUTSIDE RECORDS SUMMARY | 2018-09-06 04:33 | XMS REPORT | Clinical Summary ---
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 from Last 3 Months Results * ECG-SCAN (08/30/2018 5:47 PM) Narrative Performed At Ordered by an unspecified provider. * TELEMETRY STRIPS-SCAN (08/24/2018 3:38 PM) Narrative Performed At Ordered by an unspecified provider. * TELEMETRY STRIPS-SCAN (08/24/2018 3:38 PM) Narrative Performed At Ordered by an unspecified provider. * POC GLUCOSE (08/22/2018 4:52 PM) Only the most recent of 66 results within the time period is included. Glucose, POC 253 (H) 70 - 100 MG/DL [facility] Performing Organization Address [facility] Phone Number [facility] [address] [place] [address] * CBC (08/22/2018 12:03 PM) Only the most recent of 19 results within the time period is included. White Blood Cells 29.1 (H) 4.5 - 11.0 K/UL [facility] RBC 2.72 (L) 4.0 - 5.0 M/UL [facility] Hemoglobin 7.9 (L) 12.0 - 15.0 GM/DL [facility] Hematocrit 24.0 (L) 36 - 45 % [facility] MCV 88.4 80 - 100 FL [facility] MCH 29.2 26 - 34 PG [facility] MCHC 33.0 32.0 - 36.0 G/DL [facility] RDW 18.2 (H) 11 - 15 % [facility] Platelet Count 849 (H) 150 - 400 K/UL [facility] MPV 7.4 7 - 11 FL [facility] Specimen Blood Performing Organization Address [facility] Phone Number [facility] [address] [place] [address] * TRANSFUSE RBC'S NON-BLEEDING PT (08/22/2018 9:19 AM) Only the most recent of 7 results within the time period is included. * ECG-SCAN (08/22/2018 8:25 AM) Narrative Performed At Ordered by an unspecified provider. * CBC AND DIFF (08/22/2018 3:25 AM) Only the most recent of 9 results within the time period is included. White Blood Cells 26.0 (H) 4.5 - 11.0 K/UL [facility] RBC 2.25 (L) 4.0 - 5.0 M/UL [facility] Hemoglobin 6.8 (L) 12.0 - 15.0 GM/DL [facility] Hematocrit 20.4 (L) 36 - 45 % [facility] MCV 90.6 80 - 100 FL [facility] MCH 30.1 26 - 34 PG [facility] MCHC 33.2 32.0 - 36.0 G/DL [facility] RDW 18.1 (H) 11 - 15 % [facility] Platelet Count 779 (H) 150 - 400 K/UL [facility] MPV 7.6 7 - 11 FL [facility] Neutrophils 86 (H) 41 - 77 % [facility] Lymphocytes 6 (L) 24 - 44 % [facility] Monocytes 3 (L) 4 - 12 % [facility] Eosinophils 4 0 - 5 % [facility] Basophils 1 0 - 2 % [facility] Absolute Neutrophil Count 22.40 (H) 1.8 - 7.0 K/UL [facility] Absolute Lymph Count 1.60 1.0 - 4.8 K/UL [facility] Absolute Monocyte Count 0.70 0 - 0.80 K/UL [facility] Absolute Eosinophil Count 0.90 (H) 0 - 0.45 K/UL [facility] Absolute Basophil Count 0.30 (H) 0 - 0.20 K/UL [facility] Specimen Blood Performing Organization Address City/State/Zipcode Phone Number MAIN LAB [address] [place] [address] * COMPREHENSIVE METABOLIC PANEL (08/22/2018 3:25 AM) Only the most recent of 14 results within the time period is included. Sodium 131 (L) 137 - 147 MMOL/L [facility] Potassium 4.9 3.5 - 5.1 MMOL/L [facility] Chloride 99 98 - 110 MMOL/L [facility] Glucose 193 (H) 70 - 100 MG/DL [facility] Blood Urea Nitrogen 22 7 - 25 MG/DL [facility] Creatinine 0.93 0.4 - 1.00 MG/DL [facility] Calcium 8.2 (L) 8.5 - 10.6 MG/DL [facility] Total Protein 5.0 (L) 6.0 - 8.0 G/DL [facility] Total Bilirubin 0.2 (L) 0.3 - 1.2 MG/DL [facility] Albumin 2.4 (L) 3.5 - 5.0 G/DL [facility] Alk Phosphatase 55 25 - 110 U/L [facility] AST (SGOT) 14 7 - 40 U/L [facility] CO2 27 21 - 30 MMOL/L [facility] ALT (SGPT) 8 7 - 56 U/L [facility] Anion Gap 5 3 - 12 [facility] eGFR Non >60 >60 mL/min [facility] Comment: The eGFR is not validated for use in drug dosing adjustments.Continue to use estimated creatinine clearance per dosing reference text.Please contact the Clinical Pharmacist for questions. eGFR >60 >60 mL/min [facility] Comment: The eGFR is not validated for use in drug dosing adjustments.Continue to use estimated creatinine clearance per dosing reference text.Please contact the Clinical Pharmacist for questions. Specimen Blood Performing Organization Address City/[facility]/Zipcode Phone Number MAIN LAB [address] [place] [address] * TYPE & CROSSMATCH (08/21/2018 5:45 AM) Only the most recent of 4 results within the time period is included. Units Ordered 3 MAIN LAB Crossmatch Expires 08/24/2018 MAIN LAB Record Check FOUND MAIN LAB ABO/RH(D) A NEG MAIN LAB Antibody Screen NEG MAIN LAB Electronic Crossmatch YES MAIN LAB Unit Number [id number] MAIN LAB Blood Component Type RBC,ADSOL,LEUKO REDUCED MAIN LAB Unit Division 0 MAIN LAB Status OF Unit TRANSFUSED MAIN LAB Transfusion Status OK TO TRANSFUSE MAIN LAB Crossmatch Result COMPATIBLE,ELECTRONIC MAIN LAB Unit Number [id number] MAIN LAB Blood Component Type RBC,ADSOL,LEUKO REDUCED MAIN LAB Unit Division 0 MAIN LAB Status OF Unit TRANSFUSED MAIN LAB Transfusion Status OK TO TRANSFUSE MAIN LAB Crossmatch Result COMPATIBLE,ELECTRONIC MAIN LAB Specimen Blood Performing Organization Address City/State/Zipcode Phone Number MAIN LAB [address] [place] [address] * BASIC METABOLIC PANEL (08/20/2018 4:48 PM) Only the most recent of 4 results within the time period is included. Sodium 136 (L) 137 - 147 MMOL/L MAIN LAB Potassium 4.6 3.5 - 5.1 MMOL/L [facility] Chloride 102 98 - 110 MMOL/L [facility] CO2 29 21 - 30 MMOL/L [facility] Anion Gap 5 3 - 12 [facility] Glucose 97 70 - 100 MG/DL [facility] Blood Urea Nitrogen 19 7 - 25 MG/DL [facility] Creatinine 0.78 0.4 - 1.00 MG/DL [facility] Calcium 8.5 8.5 - 10.6 MG/DL [facility] eGFR Non >60 >60 mL/min [facility] Comment: The eGFR is not validated for use in drug dosing adjustments.Continue to use estimated creatinine clearance per dosing reference text.Please contact the Clinical Pharmacist for questions. eGFR >60 >60 mL/min [facility] Comment: The eGFR is not validated for use in drug dosing adjustments.Continue to use estimated creatinine clearance per dosing reference text.Please contact the Clinical Pharmacist for questions. Specimen Blood Performing Organization Address City/State/Zipcode Phone Number [facility] [address] [place] [address] * IR BODY EMBOLIZATION (08/18/2018 4:50 PM) Impressions Performed At Successful uterine artery embolization via right femoral access as described. [facility] RAD RESULTS Patient will be followed for symptomatic relief. Approved by Hugh Sim MD on 08/18/2018 6:21 PM I, Chapito Almaguer M.D., the attending radiologist, was present for the procedure, personally reviewed the images, and formulated the interpretations and opinions expressed in this report. @TT By my electronic signature, I attest that I have personally reviewed the images for this examination and formulated the interpretations and opinions expressed in this report Finalized by William Almaguer M.D. on 08/18/2018 6:28 PM. Dictated by Hugh Sim MD on 08/18/2018 5:58 PM. Narrative Performed At Pelvic arteriogram with bilateral uterine artery embolization: [facility] RAD RESULTS History: 48-year-old female with uterine fibroids, persistent bleeding requiring transfusion. Technique and findings: The procedure including risks, alternatives and benefits was explained to patient.The patient provided written and verbal consent. The patient was placed supine on the exam table. The right groin was prepped and draped in usual sterile fashion. Ultrasound was utilized to evaluate for patency of the right common femoral artery. Image documenting patency of the right common femoral artery was saved and documented in PACS. 1% lidocaine was used anesthetize the local soft tissues. The right common femoral artery was accessed with a micropuncture set. Through this access a microwire and microcatheter were advanced. A dermatotomy was made with an 11 blade scalpel. Through the microcatheter a Bentson wire was advanced into the abdominal aorta. The microcatheter was withdrawn and exchanged for a 6 Kosovan sheath. The sheath was attached to a continuous heparinized saline infusion. An Omni Flush catheter was advanced over the wire to the distal abdominal aorta. A pelvic arteriogram was performed. This demonstrated wide patency of the distal abdominal aorta, bilateral common, internal and external iliac arteries. A Bentson wire was advanced through the Omni Flush catheter to select the left external iliac artery. An Omni Flush catheter was exchanged for a AMELIE 1 catheter, which was used to select the left internal iliac artery. The AMELIE 1 catheter was then selectively advanced over the wire to select the left uterine artery. Digital subtraction angiograms were performed in multiple obliquities, confirming placement of the catheter within the left uterine artery and demonstrating numerous tortuous uterine arterial branches supplying large uterine fibroids. A Lantern microcatheter and microwire were coaxially advanced through the AMELIE 1 catheter and positioned into the left uterine artery. Digital subtraction angiograms were performed through the microcatheter. This redemonstrated numerous tortuous uterine arterial branches supplying uterine fibroids, and confirmed adequate positioning of the microcatheter for embolization. [place] embolization was then performed through the microcatheter using 100-300 um embospheres. Postembolization digital subtraction angiogram was performed. This demonstrated adequate embolization of distal left uterine arterial branches, with slowed though persistent forward flow in the remaining uterine arterial branches. The microcatheter was then removed and the AMELIE 1 catheter was removed over a Bentson wire. Next, a 5 Kosovan Cobra catheter was used to select the origin of the right internal iliac artery. Digital subtraction angiograms were performed in multiple obliquities. This demonstrated patent anterior and posterior division arterial branches of the right internal iliac artery, with tortuous right uterine artery supplying uterine fibroids. A Lantern microcatheter and microwire were then used to select the right uterine artery and digital subtraction angiograms were performed. This demonstrated numerous tortuous right uterine arterial branches supplying uterine fibroids and confirmed adequate placement of the microcatheter for embolization. Embolization was then performed through the microcatheter using 100-300 um embospheres. Postembolization digital subtraction angiogram was performed. This demonstrated adequate embolization of distal right uterine artery branches and slowed though persistent forward flow of remaining right uterine arterial branches. The microcatheter was then removed. The Cobra catheter was removed over a Bentson wire. A right common femoral arteriogram was performed. This demonstrated adequate sheath placement. An Angio-Seal device was deployed in the right groin. Hemostasis was achieved. A sterile dressing was applied. The patient tolerated the procedure well and left the angiography suite in stable condition without any immediate postprocedural complications. Total milligray (mGy) dosage: 4016 Sedation Medication:I was personally responsible for the administration of moderate sedation services during the procedure performed and I confirm requirements described in CPT section on moderate sedation were followed, including the use of an independent trained observer who had no other duties during the procedure.The total supervised sedation time was 94 minutes.See nursing log for complete details; the drugs utilized were: 3 mg IV Versed; 200 mcg IV Fentanyl. Contrast utilized: 220 mL Procedure Note Interface, Radiant Results - 08/21/2018 6:48 AM CDT Pelvic arteriogram with bilateral uterine artery embolization: History: 48-year-old female with uterine fibroids, persistent bleeding requiring transfusion. Technique and findings: The procedure including risks, alternatives and benefits was explained to patient. The patient provided written and verbal consent. The patient was placed supine on the exam table. The right groin was prepped and draped in usual sterile fashion. Ultrasound was utilized to evaluate for patency of the right common femoral artery. Image documenting patency of the right common femoral artery was saved and documented in PACS. 1% lidocaine was used anesthetize the local soft tissues. The right common femoral artery was accessed with a micropuncture set. Through this access a microwire and microcatheter were advanced. A dermatotomy was made with an 11 blade scalpel. Through the microcatheter a Bentson wire was advanced into the abdominal aorta. The microcatheter was withdrawn and exchanged for a 6 Kosovan sheath. The sheath was attached to a continuous heparinized saline infusion. An Omni Flush catheter was advanced over the wire to the distal abdominal aorta. A pelvic arteriogram was performed. This demonstrated wide patency of the distal abdominal aorta, bilateral common, internal and external iliac arteries. A Bentson wire was advanced through the Omni Flush catheter to select the left external iliac artery. An Omni Flush catheter was exchanged for a AMELIE 1 catheter, which was used to select the left internal iliac artery. The AMELIE 1 catheter was then selectively advanced over the wire to select the left uterine artery. Digital subtraction angiograms were performed in multiple obliquities, confirming placement of the catheter within the left uterine artery and demonstrating numerous tortuous uterine arterial branches supplying large uterine fibroids. A Lantern microcatheter and microwire were coaxially advanced through the AMELIE 1 catheter and positioned into the left uterine artery. Digital subtraction angiograms were performed through the microcatheter. This redemonstrated numerous tortuous uterine arterial branches supplying uterine fibroids, and confirmed adequate positioning of the microcatheter for embolization. [place] embolization was then performed through the microcatheter using 100-300 um embospheres. Postembolization digital subtraction angiogram was performed. This demonstrated adequate embolization of distal left uterine arterial branches, with slowed though persistent forward flow in the remaining uterine arterial branches. The microcatheter was then removed and the AMELIE 1 catheter was removed over a Bentson wire. Next, a 5 Kosovan Cobra catheter was used to select the origin of the right internal iliac artery. Digital subtraction angiograms were performed in multiple obliquities. This demonstrated patent anterior and posterior division arterial branches of the right internal iliac artery, with tortuous right uterine artery supplying uterine fibroids. A Lantern microcatheter and microwire were then used to select the right uterine artery and digital subtraction angiograms were performed. This demonstrated numerous tortuous right uterine arterial branches supplying uterine fibroids and confirmed adequate placement of the microcatheter for embolization. Embolization was then performed through the microcatheter using 100-300 um embospheres. Postembolization digital subtraction angiogram was performed. This demonstrated adequate embolization of distal right uterine artery branches and slowed though persistent forward flow of remaining right uterine arterial branches. The microcatheter was then removed. The Cobra catheter was removed over a Bentson wire. A right common femoral arteriogram was performed. This demonstrated adequate sheath placement. An Angio-Seal device was deployed in the right groin. Hemostasis was achieved. A sterile dressing was applied. The patient tolerated the procedure well and left the angiography suite in stable condition without any immediate postprocedural complications. Total milligray (mGy) dosage: 4016 Sedation Medication: I was personally responsible for the administration of moderate sedation services during the procedure performed and I confirm requirements described in CPT section on moderate sedation were followed, including the use of an independent trained observer who had no other duties during the procedure. The total supervised sedation time was 94 minutes. See nursing log for complete details; the drugs utilized were: 3 mg IV Versed; 200 mcg IV Fentanyl. Contrast utilized: 220 mL IMPRESSION Successful uterine artery embolization via right femoral access as described. Patient will be followed for symptomatic relief. Approved by Hugh Sim MD on 08/18/2018 6:21 PM I, Chapito Almaguer M.D., the attending radiologist, was present for the procedure, personally reviewed the images, and formulated the interpretations and opinions expressed in this report. @TT By my electronic signature, I attest that I have personally reviewed the images for this examination and formulated the interpretations and opinions expressed in this report Finalized by William Almaguer M.D. on 08/18/2018 6:28 PM. Dictated by Hugh Sim MD on 08/18/2018 5:58 PM. Performing Organization Address [facility] [place] Phone Number RAD RESULTS * TRANSFUSE RBC'S BLEEDING PT OR EXCHANGE TRANSFUSION (08/18/2018 2:52 PM) Only the most recent of 8 results within the time period is included. * ECG-SCAN (08/17/2018 3:15 PM) Narrative Performed At Ordered by an unspecified provider. * CREATINE KINASE-CPK (08/17/2018 2:00 PM) Only the most recent of 2 results within the time period is included. Creatine Kinase 41 21 - 215 U/L MAIN LAB Specimen Blood Performing Organization Address [facility] [place] Phone Number [facility] LAB [address] [place] [address] * PROTIME INR (PT) (08/17/2018 10:34 AM) Only the most recent of 3 results within the time period is included. INR 0.9 0.8 - 1.2 MAIN LAB Specimen Blood Performing Organization Address [facility] Phone Number [facility] LAB [address] [place] [address] * FIBRINOGEN (08/17/2018 10:34 AM) Only the most recent of 2 results within the time period is included. Fibrinogen 568 (H) 200 - 400 MG/DL MAIN LAB Specimen Blood Performing Organization Address [facility] Phone Number MA[facility] LAB [address] [place] [address] * TRANSESOPHAGEAL ECHOCARDIOGRAM (08/14/2018 3:15 PM) BSA 1.85 m2 OTHER OUTSIDE LAB CV ECHO PV CLINICAL PROJECT COORDINATOR NELLY Callejas OTHER OUTSIDE LAB Cardiology Ultrasound Siemens [id number] OTHER OUTSIDE LAB Machine ECHO EF 35 % OTHER OUTSIDE LAB Narrative Performed At OTHER OUTSIDE LAB 1. All apical left ventricular segments appear hypokinetic. Overall left ventricular systolic function is moderately impaired. The estimated left ventricular ejection fraction is 35%.The left ventricle appears mildly enlarged. 2. Right ventricular contractility appears normal. 3. Moderate left atrial enlargement.Mild right atrial enlargement. 4. Cardiac valve structures are unremarkable.Mild tricuspid valve regurgitation is noted by Doppler exam.No valvular vegetations are noted.No perivalvular abscesses noted. 5. No pericardial effusion is seen. 6. A large, mobile left ventricular apical thrombus is noted which measures approximately 2.3 x 2.9 cm in dimensions. 7. A patent foramen ovale is noted by color flow Doppler exam. Performing Organization Address [facility] Phone Number OTHER OUTSIDE LAB * PTT (APTT) (08/10/2018 1:15 PM) Only the most recent of 4 results within the time period is included. APTT 21.9Comment: NOTE NEW 20.0 - 36.0 SEC MAIN LAB REFERENCE RANGES Specimen Blood Performing Organization Address [facility] Phone Number [facility] [address] [place] [address] * 2-D + DOPPLER ECHOCARDIOGRAM (08/10/2018 10:48 AM) IVS 1.08 0.6 - 0.9 cm OTHER OUTSIDE LAB LVIDD 5.4 3.8 - 5.2 cm OTHER OUTSIDE LAB LVIDS 4.1 2.2 - 3.5 cm OTHER OUTSIDE LAB PW 1.09 0.6 - 0.9 cm OTHER OUTSIDE LAB TDI e' 0.13 m/s OTHER OUTSIDE LAB Right Ventricular Mid 2.97 1.9 - 3.5 cm OTHER OUTSIDE LAB Diameter LA size 4.24 2.7 - 3.8 cm OTHER OUTSIDE LAB LA volume 81.94 22 - 52 mL OTHER OUTSIDE LAB Right Atrial Area 18.06 <18 cm2 OTHER OUTSIDE LAB Right Atrial Major 5.22 2.2 - 2.8 cm OTHER OUTSIDE LAB Dimension and a peak gradient of 9.65 mmHg OTHER OUTSIDE LAB AV peak velocity 1.55 m/s OTHER OUTSIDE LAB MV Peak A Evan 0.85 m/s OTHER OUTSIDE LAB MV Peak E Evan PW 1.01 m/s OTHER OUTSIDE LAB Right Ventricular Basal 4.01 2.5 - 4.1 cm OTHER OUTSIDE LAB Diameter Right Heart Systolic 2.08 >1.7 cm OTHER OUTSIDE LAB Mmode TAPSE Sinus 3.27 2.7 - 3.3 cm OTHER OUTSIDE LAB BSA 1.85 m2 OTHER OUTSIDE LAB FS 24.07 28 - 44 % OTHER OUTSIDE LAB EF 40.92 % OTHER OUTSIDE LAB Left Atrium Index 44.29 16 - 34 OTHER OUTSIDE LAB E/A ratio 1.19 OTHER OUTSIDE LAB E/E' ratio 7.77 OTHER OUTSIDE LAB LV mass 230.51 66 - 150 g OTHER OUTSIDE LAB RWT 0.40 <=0.42 OTHER OUTSIDE LAB TV rest pulmonary artery n/a mmHg OTHER OUTSIDE LAB pressure Right Heart Systolic TDI 0.150 m/s OTHER OUTSIDE LAB S' Cardiology Ultrasound Siemens [id number] OTHER OUTSIDE LAB Machine Left Ventricle Mass Index 124.60 44 - 88 g/m2 OTHER OUTSIDE LAB ECHO EF 30 % OTHER OUTSIDE LAB Narrative Performed At OTHER OUTSIDE LAB Moderate to severely decreased global LV contractility: LV ejection fraction ~ 30%. Apical LV akinesis with large mobile apical thrombus. Mild eccentric LV hypertrophy. Normal RV contractility. Moderate left atrial dilatation. Mild atrial dilatation. Markedly elevated central venous pressure (>15 mm Hg). Aortic arch not well visualized. Normal valvular structures. Trace tricuspid and pulmonic regurgitation.On the prior study there was trace aortic, mild pulmonic, and mild to moderate tricuspid regurgitation. PA pressure could not be estimated on this study.On the prior study PA pressure was estimated be 53 mmHg. Performing Organization Address City/State/Zipcode Phone Number OTHER OUTSIDE LAB * CULTURE-BLOOD W/SENSITIVITY (08/10/2018 8:20 AM) Only the most recent of 3 results within the time period is included. Battery Name BLOOD CULTURE [facility] MAIN LAB Specimen Description BLOOD [facility] MAIN LAB LEFT ANTECUBITAL Special Requests NONE [facility] MAIN LAB Culture NO GROWTH 5 DAYS [facility] MAIN [facility] Report Status FINAL [facility] MAIN LAB 08/16/2018 Specimen Blood Performing Organization Address City[facility] Phone Number [facility] LAB [address] [place] [address] * HEMOGLOBIN A1C (08/10/2018 3:14 AM) Hemoglobin A1C 10.3 (H) 4.0 - 6.0 % [facility] MAIN [facility] Comment: The ADA recommends that most patients with type 1 and type 2 diabetes maintain an A1c level <7%. Performing Organization Address City/[facility] Phone Number MA[facility] LAB [address] [place] [address] * PHOSPHORUS (08/09/2018 3:00 PM) Phosphorus 2.7 2.0 - 4.0 MG/DL MAIN LAB Specimen Blood Performing Organization Address City[facility] Phone Number [facility] LAB [address] [place] [address] * MAGNESIUM (08/09/2018 3:00 PM) Magnesium 1.8 1.6 - 2.6 mg/dL MAIN LAB Specimen Blood Performing Organization Address [facility] [place] Phone Number [facility] [address] [place] [address] * POC BLOOD GAS ARTERIAL (08/09/2018 11:12 AM) Only the most recent of 2 results within the time period is included. PH-ART-POC 7.40 7.35 - 7.45 [facility] MAIN LAB [id number] 41 35 - 45 MMHG [facility] MAIN LAB PO2-ART-POC 488 (H) 80 - 100 MMHG [facility] MAIN LAB Base Ex-ART-POC 0.0 MMOL/L MAIN LAB O2 Sat-ART-POC 100.0 (H) 95 - 99 % MAIN LAB Eoqphywgsur-SZH-ZQF 24.9 21 - 28 MMOL/L MAIN LAB Performing Organization Address City[facility] Phone Number [facility] LAB [address] [place] [address] * POC SODIUM (08/09/2018 11:12 AM) Only the most recent of 2 results within the time period is included. Sodium-POC 131 (L) 137 - 147 MMOL/L MAIN LAB Performing Organization Address [facility] Phone Number [facility] LAB [address] [place] [address] * POC POTASSIUM (08/09/2018 11:12 AM) Only the most recent of 2 results within the time period is included. Potassium-POC 3.4 (L) 3.5 - 5.1 MMOL/L [facility] Performing Organization Address [facility] Phone Number [facility] LAB [address] [place] [address] * POC IONIZED CALCIUM (08/09/2018 11:12 AM) Only the most recent of 2 results within the time period is included. Ionized Calcium-POC 1.06 1.0 - 1.3 MMOL/L [facility] Performing Organization Address [facility] Phone Number [facility] LAB [address] [place] [address] * POC HEMATOCRIT (08/09/2018 11:12 AM) Only the most recent of 2 results within the time period is included. Hemoglobin POC 8.8 (L) 12.0 - 15.0 GM/DL [facility] Hematocrit POC 26.0 (L) 36 - 45 % [facility] Performing Organization Address [facility] Phone Number [facility] LAB [address] [place] [address] * ANESTHESIA ARTERIAL LINE INSERTION (08/09/2018 8:13 AM) Narrative Performed At Anand Verde MD 08/09/20188:13 AM Anesthesia Procedure: Arterial Line Placement A-LINE INSERTION Date/Time: 08/09/2018 8:13 AM Patient location: Pre/Post Indications: frequent labs and hemodynamic monitoring Preprocedure checklist performed: 2 patient identifiers, risks & benefits discussed, patient evaluated, timeout performed, consent obtained and patient being monitored Sterile technique: - Proper hand washing - Cap, mask - Sterile gloves - Skin prep for antisepsis Arterial Line Procedure Patient sedated: no Artery prepped with chlorhexidine; skin prep agent completely dried prior to procedure. Location: radial artery Laterality: left Technique: palpation Needle gauge: 20 G Number of attempts: 1 Procedure Outcome Catheter secured with adhesive dressing applied Events: no complications noted during insertion and skin intact, warm, and dry Observation: pt tolerated well Refer to nursing documentation for vitals and monitoring data during procedure. Performed by: ANAND VERDE Authorized by: SOL ROBBINS * BLOOD TYPE CONFIRMATION - ORDER ONLY IF REQUESTED BY LAB (08/09/2018 8:10 AM) ABO/RH(D) A NEG MAIN LAB Performing Organization Address City/State/Zipcode Phone Number MAIN LAB [address] [place] [address] * CTA ABD AORTA & SREEDHAR RUN WO/W (08/09/2018 7:52 AM) Impressions Performed At 1. Left ventricular mass is redemonstrated, consistent with known thrombus. [facility] RAD RESULTS 2. 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 3. Complete occlusion of the right popliteal artery with collateral reconstitution of the trifurcation vessels which are poorly opacified. 4. Patchy wedge-shaped hypodensities throughout the spleen and left kidney consistent with known splenic and renal emboli. 5. Increase in size in fat-containing umbilical hernia and improvement in diffuse body wall edema. 6. Moderate luminal narrowing of the infrarenal abdominal aorta without aneurysm. 7. Enlarged likely fibroid uterus, unchanged from prior exam. If abnormal there is uterine bleeding, dedicated ultrasound exam is recommended. 8. Small right lung base nodule is identified that is unchanged from the prior exam. In a high risk patient would require CT follow-up in one year, while a low risk patient does not need to be followed up. #Follow Approved by Will Trujillo M.D. on 08/09/2018 9:58 AM By my electronic signature, I attest that I have personally reviewed the images for this examination and formulated the interpretations and opinions expressed in this report Finalized by Rashid Mccollum M.D. on 08/09/2018 10:55 AM. Dictated by Will Trujillo M.D. on 08/09/2018 8:09 AM. Narrative Performed At CTA ABDOMEN AND PELVIS WITH BILATERAL LOWER EXTREMITY RUNOFFS [facility] RAD RESULTS Clinical Indication:Female, 48 years old. History of LV thrombus with left stump pain Technique:Multiple contiguous axial images were obtained through the abdomen, pelvis, and both lower extremities following the administration of IV contrast material. Noncontrast imaging was also obtained. Post processing coronal and sagittal reconstruction images were made from the axial images.Image post-processing was obtained. IV contrast: Isovue-370 Bowel contrast:None Comparison: CT chest abdomen pelvis 04/11/2018 FINDINGS: Lower Thorax: Left lung base atelectasis. Heart size is normal with redemonstration of left ventricular thrombus. Small pericardial effusion. There is a small 0.5 cm right lung base nodule that is unchanged from the prior exam. Liver and Biliary system: Hepatomegaly with wedge-shaped perfusion abnormality in segment 7. Prior cholecystectomy. Spleen: Patchy wedge-shaped hypodensities seen throughout the spleen. Adrenal Glands and Kidneys: The adrenal glands are unremarkable. There are patchy wedge-shaped hypodensities throughout the left kidney. The previously noted patchy hypodensities throughout the right kidney are no longer visualized. Pancreas and Retroperitoneum: Unremarkable. Aorta and Major Vessels: Abdominal aorta is normal in caliber with moderate mixed aortoiliac atherosclerotic plaque with moderate luminal narrowing just below the level of the renal arteries. The celiac trunk and SMA are patent. Bowel, Mesentery and Peritoneal space: Large and small bowel loops are normal in caliber. No mesenteric adenopathy. No pneumoperitoneum or ascites. Pelvis: The partially opacified urinary bladder is decompressed with an indwelling Fernández catheter. The uterus is enlarged with nodular soft tissue masses which likely represents fibroid uterus, unchanged from prior exam. No pelvic adenopathy. Abdominal wall and Osseous Structures: Diffuse body wall edema, improved over prior exam. Increase in size in fat-containing umbilical hernia. Moderate lumbar spondylosis. No aggressive osseous lesion. Bilateral lower extremities:Completely occlusive thrombus within the left proximal femoral and femoral profunda arteries. Finding noted in physician documentation. Complete occlusion at the level of the right popliteal artery with subsequent collateral formation. The trifurcation vessels are not visualized distally. Prior left BKA. No acute fracture or dislocation. Procedure Note Interface, Radiant Results - 08/09/2018 10:58 AM CDT CTA ABDOMEN AND PELVIS WITH BILATERAL LOWER EXTREMITY RUNOFFS Clinical Indication: Female, 48 years old. History of LV thrombus with left stump pain Technique: Multiple contiguous axial images were obtained through the abdomen, pelvis, and both lower extremities following the administration of IV contrast material. Noncontrast imaging was also obtained. Post processing coronal and sagittal reconstruction images were made from the axial images. Image post- processing was obtained. IV contrast: Isovue-370 Bowel contrast: None Comparison: CT chest abdomen pelvis 04/11/2018 FINDINGS: Lower Thorax: Left lung base atelectasis. Heart size is normal with redemonstration of left ventricular thrombus. Small pericardial effusion. There is a small 0.5 cm right lung base nodule that is unchanged from the prior exam. Liver and Biliary system: Hepatomegaly with wedge-shaped perfusion abnormality in segment 7. Prior cholecystectomy. Spleen: Patchy wedge-shaped hypodensities seen throughout the spleen. Adrenal Glands and Kidneys: The adrenal glands are unremarkable. There are patchy wedge-shaped hypodensities throughout the left kidney. The previously noted patchy hypodensities throughout the right kidney are no longer visualized. Pancreas and Retroperitoneum: Unremarkable. Aorta and Major Vessels: Abdominal aorta is normal in caliber with moderate mixed aortoiliac atherosclerotic plaque with moderate luminal narrowing just below the level of the renal arteries. The celiac trunk and SMA are patent. Bowel, Mesentery and Peritoneal space: Large and small bowel loops are normal in caliber. No mesenteric adenopathy. No pneumoperitoneum or ascites. Pelvis: The partially opacified urinary bladder is decompressed with an indwelling Fernández catheter. The uterus is enlarged with nodular soft tissue masses which likely represents fibroid uterus, unchanged from prior exam. No pelvic adenopathy. Abdominal wall and Osseous Structures: Diffuse body wall edema, improved over prior exam. Increase in size in fat-containing umbilical hernia. Moderate lumbar spondylosis. No aggressive osseous lesion. Bilateral lower extremities: Completely occlusive thrombus within the left proximal femoral and femoral profunda arteries. Finding noted in physician documentation. Complete occlusion at the level of the right popliteal artery with subsequent collateral formation. The trifurcation vessels are not visualized distally. Prior left BKA. No acute fracture or dislocation. IMPRESSION 1. Left ventricular mass is redemonstrated, consistent with known thrombus. 2. 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 3. Complete occlusion of the right popliteal artery with collateral reconstitution of the trifurcation vessels which are poorly opacified. 4. Patchy wedge-shaped hypodensities throughout the spleen and left kidney consistent with known splenic and renal emboli. 5. Increase in size in fat-containing umbilical hernia and improvement in diffuse body wall edema. 6. Moderate luminal narrowing of the infrarenal abdominal aorta without aneurysm. 7. Enlarged likely fibroid uterus, unchanged from prior exam. If abnormal there is uterine bleeding, dedicated ultrasound exam is recommended. 8. Small right lung base nodule is identified that is unchanged from the prior exam. In a high risk patient would require CT follow-up in one year, while a low risk patient does not need to be followed up. #Follow Approved by Will Trujillo M.D. on 08/09/2018 9:58 AM By my electronic signature, I attest that I have personally reviewed the images for this examination and formulated the interpretations and opinions expressed in this report Finalized by Rashid Mccollum M.D. on 08/09/2018 10:55 AM. Dictated by Will Trujillo M.D. on 08/09/2018 8:09 AM. Performing Organization Address [facility] Phone Number RAD RESULTS * VRE SCREEN (08/09/2018 4:45 AM) Battery Name VRE SCREEN [facility] Specimen Description PERIRECTAL SWAB [facility] Special Requests NONE [facility] MAIN [facility] Culture NO VRE ISOLATED MAIN LAB Report Status FINAL MAIN LAB 08/10/2018 Specimen Perirectal Swab Performing Organization Address [facility] Phone Number [facility] [address] [place] [address] * MRSA SCREEN (08/09/2018 4:23 AM) Battery Name MRSA SCREEN [facility] Specimen Description NASAL [facility] Special Requests NONE [facility] MAIN [facility] Culture NO MRSA ISOLATED MAIN LAB Report Status FINAL MAIN LAB 08/10/2018 Specimen Nasal Performing Organization Address [facility] Phone Number MAIN LAB [address] [place] [address] * LACTIC ACID(LACTATE) (08/09/2018 4:23 AM) Lactic Acid 1.3 0.5 - 2.0 MMOL/L MAIN LAB Specimen Blood Performing Organization Address [facility] Phone Number MAIN LAB [address] [place] [address] * US VENOUS DOPPLER EXTERNAL IMAGING (08/08/2018 8:30 PM) Narrative Performed At This order has been auto finalized and does not contain a result. * CT CHEST/ABD/PEL EXTERNAL IMAGING (08/08/2018 12:15 AM) Narrative Performed At This order has been auto finalized and does not contain a result. * GENERAL RAD CHEST EXTERNAL IMAGING (08/08/2018) Narrative Performed At This order has been auto finalized and does not contain a result. from Last 3 Months
--- OUTSIDE RECORDS SUMMARY | 2018-09-06 04:33 | XMS REPORT | Encounter Summary ---
Author Author [facility] Organization [facility] Address Unknown Phone Unavailable Care Team Providers Care Certified Medication Technician Name Role Phone Dave Lorenzana MD PCP Reason for Visit * Reason Comments Outpatient Antibiotic Therapy ([facility]) Encounter Details Date Type Department Care Team Description 08/30/2018 Telephone [facility] Denys Salvador MD Outpatient Antibiotic Physicians - Internal [address] Therapy (Opat) Medicine [facility] [address] [place] [address] Pavilion Level 4C [phone] [place] [address] Social History Tobacco Use Types Packs/Day Years Used Date Current Every Day Smoker Cigarettes 1 20 Smokeless Tobacco: Never Used Alcohol Use Drinks/Week oz/Week Comments No Sex Assigned at Date Recorded Not on file as of this encounter Functional Status Functional Status Response Date of Assessment Does the patient have a hearing impairment: No 08/18/2018 as of this encounter Miscellaneous Notes * Telephone Encounter - Christy Squires RN - 08/30/2018 11:13 AM CDT Pt did not show up for dalbavancin infusion on 08/24/18. Left another voicemail for patient to call to reschedule IV antibiotic infusion and to call back with any questions. in this encounter Plan of Treatment Not on fileas of this encounter Visit Diagnoses Not on filein this encounter
--- OUTSIDE RECORDS SUMMARY | 2018-09-06 04:34 | XMS REPORT | Encounter Summary ---
Author Author [facility] Organization [facility] Address Unknown Phone Unavailable Care Team Providers Care Trainman Name Role Phone Dave Lorenzana MD PCP Encounter Details Date Type Department Care Team Description 08/23/2018 Outpt. [facility] Denys Salvador MD Antibiotic Physicians - Internal [address] [facility] Therapy Medicine [facility] [address] [place] [address] Pavilion Level 4C [phone] [address] [facility] [place] [address] Social History Tobacco Use Types Packs/Day Years Used Date Current Every Day Smoker Cigarettes 1 20 Smokeless Tobacco: Never Used Alcohol Use Drinks/Week oz/Week Comments No Sex Assigned at Date Recorded Not on file as of this encounter Functional Status Functional Status Response Date of Assessment Does the patient have a hearing impairment: No 08/18/2018 as of this encounter Progress Notes * Christy Squires RN - 08/23/2018 5:39 PM CDT Patient did not show to her infusion appointment on 08/24/18. Left a voicemail for patient to call to reschedule that and to call back with any questions. * Christy Squires RN - 08/23/2018 5:39 PM CDT OPAT- active Updated 08/23/18 DX:bacteremia ID Staff:PARAG Next ID Appt:PRN Antibiotic: EXP END DATE: Dalbavancin 1500 mg IV every 2 weeks x 2 Start:08/24/18 Labs: cbc, cmp w/ each dose Last done: Line: peripheral IV Infusion Pharmacy/Center: infusion center [id number] Patient is scheduled for 08/24/18 at 1:45pm INFUSION appointment. Verified therapy plan orders are correct. in this encounter Plan of Treatment Not on fileas of this encounter Visit Diagnoses Not on filein this encounter
--- OUTSIDE RECORDS SUMMARY | 2018-09-06 04:34 | XMS REPORT | Encounter Summary ---
Author Author [facility] Organization [facility] Address Unknown Phone Unavailable Care Team Providers Care Pantry Goods Maker Name Role Phone Dave Lorenzana MD PCP Encounter Details Date Type Department Care Team Description 08/23/2018 Orders Only Infusion Therapy Clinic - [facility], [facility] [address] [place] [address] Social History Tobacco Use Types Packs/Day Years Used Date Current Every Day Smoker Cigarettes 1 20 Smokeless Tobacco: Never Used Alcohol Use Drinks/Week oz/Week Comments No Sex Assigned at Date Recorded Not on file as of this encounter Functional Status Functional Status Response Date of Assessment Does the patient have a hearing impairment: No 08/18/2018 as of this encounter Plan of Treatment Not on fileas of this encounter Visit Diagnoses Not on filein this encounter
--- OUTSIDE RECORDS SUMMARY | 2018-09-06 04:34 | XMS REPORT | Encounter Summary ---
Author Author [facility] Organization [facility] Address Unknown Phone Unavailable Care Team Providers Care Rv Technician Name Role Phone Dave Lorenzana MD PCP Encounter Details Date Type Department Care Team Description 08/22/2018 Pharmacy Visit [facility] [address] [place] [address] Social History Tobacco Use Types Packs/Day Years [...]
--- OUTSIDE RECORDS SUMMARY | 2018-09-06 04:40 | XMS REPORT | Encounter Summary ---
Author Author [facility] Organization [facility] Address Unknown Phone Unavailable Care Team Providers Care Tube Turner Name Role Phone Dave Lorenzana MD PCP Reason for Visit * Auth/Cert Status Reason Specialty Diagnoses / Referred By Referred To Procedures Contact Contact Diagnoses DKA (diabetic ketoacidoses) (HCC) LV (left ventricular) mural thrombus without ID dka Encounter Details Date Type Department Care Team Description 08/09/2018 Hospital Burn Care ICU Francisco Bravo DO Mass of heart - Encounter [address] [facility] 08/22/2018 [address] [place] [address] [place] [address] [phone] Raul Roper MD [address] [place] [address] [phone] Chau Mahan MD [address] [place] [address] [phone] Branden Ceja MD [address] [place] [address] [phone] Social History Tobacco Use Types Packs/Day Years [...] Mass Index 23.18 08/20/2018 1:00 PM CDT in this encounter Functional Status Functional Status Response Date of Assessment Does the patient have a hearing impairment: No 08/18/2018 as of this encounter Discharge Summaries * Chau Gomez MD - 08/22/2018 2:26 PM CDT Formatting of this note may be different from the original. Physician Discharge Summary Name: Betina Baron Date Of : 1970 Age: 48 years Admit date: 08/09/2018 Discharge date: 08/22/2018 Attending Physician: Chau Gomez MD Service: [place] [address] Physician Summary completed by: Chau Gomez MD Reason for hospitalization: comes in as outside hospital transfer with chief complaint of left-sided and right-sided pain and noticed to be in Diabetic ketoacidosis , multiple emboli including splenic emboli, renal artery emboli, left femoral artery thrombus with complete occlusion. Significant PMH: Past Medical History: Diagnosis Date DM (diabetes mellitus) ([facility]) Polysubstance abuse ([facility]) Allergies: Pcn [penicillins] Admission Physical Exam notable for: Physical Exam Constitutional: She is oriented to person, place, and time. She appears well- developed and well-nourished. HENT: Head: Normocephalic and atraumatic. Eyes: Conjunctivae and EOM are normal. Neck: Neck supple. Cardiovascular: Normal rate and regular rhythm. Pulmonary/Chest: Effort normal and breath sounds normal. Abdominal: Soft. Bowel sounds are normal. Musculoskeletal: Normal range of motion. She exhibits no edema or tenderness. Left BKA Neurological: She is alert and oriented to person, place, and time. Skin: There is pallor. Psychiatric: She has a normal mood and affect. Admission Lab/Radiology studies notable for: CT angiogram shows complete occlusion of the distal left common femoral artery and profunda artery with thrombus along with occlusion of her superficial femoral artery. Her right lower extremity has complete occlusion of the popliteal artery and trifurcation with thrombus. These are likely embolic from her heart. She is also has splenic and renal infarcts seen on CT angiogram Brief Hospital Course: The patient was admitted and the following issues were addressed during this hospitalization: (with pertinent details). presented on 08/09/2018 in transfer w/bilateral body pain --> DKA. Multiple emboli (spleen/kidney/L femoral artery). Underewent emergency thrombectomy. PATRIA 08/14/18. GPC bacteremia. Consultants - Cardiology and Vascular Surgery. Acute blood loss anemia 2/2 Vaginal bleeding (uterine fibroids) | Last admission , was seen by Gynecology. Endometrial carcinoma/malignancy was excluded at that time. Has been recommended that she take medroxyprogesterone, but she refuses, citing a concern that it makes her bleed rather than prevent bleeding. Gynecology has been in contact with IR regarding uterine artery embolization procedure, and she now agrees. Depo-Provera administered 08/16/18 and on progestin oral. Uterine artery embolization 08/18/18. Bleeding improved.This hospitalization, has required multiple blood transfusions. Left ventricular thrombus (stasis v heart failure) | Complicated by distal emobolization and infarction of multiple organs. Originally diagnosed at [facility] in [place], [place]. She was diagnosed with an LV thrombus and placed on anticoagulation at the beginning of 2017. Non-adherence to anticoagulation. Verified on PATRIA done 08/14/18 (results below), and no perivalvular abscesses noted. Patient was started on heparin later switched to enoxaparin, and risk:benefit discussions have highlighted need for AC in spite of ongoing vaginal bleeding, which developed at onset of menses.on discharge patient switched to eliquis. Was given coupon for a month supply. pcp will assist in Further supply , this was discussed with pcp. Bilateral lower extremity ischemia (embolization from LV thrombus) | Resolved. S /P Left common femoral, profunda and superficial femoral artery thrombectomy followed by closure with bovine pericardial patch. She underwent thrombectomy of the right SFA, popliteal artery, anterior tibial artery, posterior tibial artery and peroneal artery. Attempted thrombectomy was performed at the right posterior and anterior tibial arteries, however, there were findings of chronic arterial occlusion Vascular Surgery placed Provena wound VAC . the battery ran out approximately 7 days and was removed . Polymicrobial bacteremia | C. Infectious Diseases contacted the hospital in [facility] to request records demonstrating staph aureus, enterococcus ( later clarified and speciated to beta-hemolytic strep was the final change), coag negative staph. treated with daptomycin, with plans for prolonged course.on discharge CM was able to arrange dalvabancin as an outpatient - 2 doses 2 weeks apart. I Splenic artery emboli (embolization from LV thrombus) | Noted on CT angiogram performed at the time of presentation. Asymptomatic. Renal artery emboli (embolization from LV thrombus) | Noted on CT angiogram performed at the time of presentation. Asymptomatic. Chronic systolic heart failure (non-ischemic cardiomyopathy) | Compensated, and improved since 04/11/18. 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 Currently on carvedilol , lisinopril, and furosemide. Echocardiogram 08/10/18 with improvement from ( results below) ~15% to 30%. PATRIA (results below) re-demonstrating clot. DMII (insulin resistance) | Improving control, and suspicion for non-adherence at home and lack of access to affordable alternatives. At presentation, was in DKA. Reports that at home she was on detemir and aspart, but that she had not been prescribed enough. She notes cost-effective options at the [facility] in [place], [place] - called and they in fact have low-cost detemir and aspart. *Spoke with [facility] [phone] and they have inexpensive medications available: Insulin detemir box of 5 pens $15 Insulin aspart box of 5 pens $8 (She has stated she can afford this). Titration ongoing. Chronic illness/Moderate non-severe malnutrition | Weight loss 10% x 6 months w/ mild loss of muscle mass and energy intake: < 75% of estimated energy requirement for 1 month or more Pressure wound on coccyx, stage 2 | Not POA. Wound care consulting. Polysubstance abuse (addiction versus education deficit ) | Pre- contemplative stage of cessation. Endorsed smoking methamphetamine at the time of presentation. UDS at the time of admission was positive for opiates, amphetamines, and methamphetamines at the outside hospital. Denies ongoing IV drug use. Status post left BKA | Well-healed and at her baseline functional level. She uses wheelchair to live in her home independently and gets around without a device. Pulmonary nodule | Stable. Noted on CT angiogram performed 08/09/2018 and described as unchanged as compared to prior exam. Since she is a high risk patient requires CT follow-up in 1 year. Patient is adamant to go home. Patient was explained To closely follow up with PCP . Go to nearest ER if she notices increased bleeding. Also she needs to come to OP infusion clinic every 2 weeks for abx. She needs weekly labs Follow up with pcp in 1 week with cbc and bmp Condition at Discharge: Stable Discharge Diagnoses: Acute blood loss anemia Polymicrobial bacteremia Left Ventricular thrombus with emboli to kidneys spleen and lower extremities Hospital Problems Active Problems Mass of heart Acute systolic CHF (congestive heart failure) ([facility]) LV (left ventricular) mural thrombus without ID Polysubstance abuse ([facility]) DM (diabetes mellitus) ([facility]) Bacteremia due to Gram-positive bacteria Moderate malnutrition ([facility]) Acute embolism and thombos unsp deep vn unsp lower extremity ([facility]) Surgical Procedures: None Significant Diagnostic Studies and Procedures: noted in brief hospital course Consults: Cardiology, ID and Vascular Surgery Patient Disposition: Home Patient instructions/medications: Activity as Tolerated It is important to [...] your normal activity level. Begin to work toward your normal activity level at discharge Report These Signs and Symptoms Please contact your doctor if you have any of the following symptoms: temperature higher than 100 degrees F, uncontrolled pain, persistent nausea and/ or vomiting, difficulty breathing, chest pain, severe abdominal pain, headache, unable to urinate, unable to have bowel movement or drainage with a foul odor Questions About Your Stay For questions or concerns regarding your hospital stay. Call [phone] Discharging attending physician: CHAU GOMEZ [[id number]] Diabetic Diet You should eat between 1600 and 2000 calories per day. This is equal to 60g ( grams) of carbohydrates per meal, and 30g of carbohydrates for a bedtime snack. If you have questions about your diet after you go home, you can call a dietitian at [phone]. Additional Discharge Instructions Call your pcp and make follow up appointment in 1-2 weeks with CBC and BMP Current Discharge Medication List START taking these medications Details apixaban (ELIQUIS) 5 mg tablet Take one tablet by mouth twice daily. Qty: 60 tablet, Refills: 1 PRESCRIPTION TYPE: Normal Comments: Please run through patient- provided coupon card dalbavancin (DALVANCE) 500 mg 1,500 mg in dextrose 5% (D5W) 575 mL IVPB Administer one thousand five hundred mg through vein every 14 days. Doses will be provided and administered at outpatient clinic. Plan to receive 1500 mg every 2 weeks for 2 doses. Please follow-up with discharge instructions for appointments. PRESCRIPTION TYPE: No Print ferrous sulfate (FEOSOL, FEROSUL) 325 mg (65 mg iron) tablet Take one tablet by mouth daily. Take on an empty stomach at least 1 hour before or 2 hours after food. Qty: 90 tablet, Refills: 3 PRESCRIPTION TYPE: Normal senna/docusate (SENOKOT-S) 8.6/50 mg tablet Take one tablet by mouth twice daily. Qty: 30 tablet, Refills: 0 PRESCRIPTION TYPE: Normal vitamin A & D oint Apply topically to affected area as Needed (Apply vitamin A& D ointment to wound base and cover with a Biatain foam). Qty: 60 g, Refills: 0 PRESCRIPTION TYPE: Normal CONTINUE these medications which have been CHANGED or REFILLED Details atorvastatin (LIPITOR) 80 mg tablet Take one tablet by mouth daily. Hold until you have completed daptomycin therapy. PRESCRIPTION TYPE: No Print insulin aspart U-100 (NOVOLOG FLEXPEN) 100 unit/mL injection PEN Inject ten Units under the skin three times daily with meals. Qty: 15 mL, Refills: 1 PRESCRIPTION TYPE: Normal insulin detemir(+) (LEVEMIR FLEXTOUCH U-100 INSULN) 100 unit/mL (3 mL) injection pen Inject fifty Units under the skin at bedtime daily. Qty: 15 mL, Refills: 1 PRESCRIPTION TYPE: Normal spironolactone (ALDACTONE) 25 mg tablet Take one tablet by mouth daily. Take with food. Qty: 60 tablet, Refills: 0 PRESCRIPTION TYPE: Normal CONTINUE these medications which have NOT CHANGED Details aspirin EC 81 mg tablet Take 1 tablet by mouth daily. Take with food. Qty: 90 tablet, Refills: 3 PRESCRIPTION TYPE: OTC carvedilol (COREG) 3.125 mg tablet Take 1 tablet by mouth twice daily. Take with food. Qty: 60 tablet, Refills: 0 PRESCRIPTION TYPE: Normal furosemide (LASIX) 40 mg tablet Take 1 tablet by mouth daily. Qty: 30 tablet, Refills: 0 PRESCRIPTION TYPE: Normal lisinopril (PRINIVIL, ZESTRIL) 2.5 mg tablet Take 1 tablet by mouth daily. Qty: 30 tablet, Refills: 0 PRESCRIPTION TYPE: Normal metFORMIN (GLUCOPHAGE) 500 mg tablet Take 500 mg by mouth twice daily with meals. PRESCRIPTION TYPE: Historical Med nystatin (NYSTOP) 100,000 unit/g topical powder Apply to pannus twice daily Qty: 15 g, Refills: 0 PRESCRIPTION TYPE: Normal oxyCODONE (ROXICODONE, OXY-IR) 5 mg tablet Take 1-2 tablets by mouth every 12 hours as needed For pain Qty: 15 tablet, Refills: 0 PRESCRIPTION TYPE: Print vitamins, multi w/minerals 9 mg iron-400 mcg tab Take 1 tablet by mouth daily. PRESCRIPTION TYPE: OTC The following medications were removed from your list. This list includes medications discontinued this stay and those removed from your prior med list in our system enoxaparin (LOVENOX) 80 mg syrg medroxyprogesterone (PROVERA) 10 mg tablet warfarin (COUMADIN) 7.5 mg tablet warfarin (COUMADIN) 7.5 mg tablet Scheduled appointments: Sep 18, 2018 1:30 PM CDT New Patient with Ravi Torres MD [facility] - OBGYN ([facility] PHOTO JOURNALIST) [facility] [address] [facility] [id number] Pending items needing follow up: none Signed: Chau Gomez MD 08/22/2018 cc: Primary Care Physician: Dave Lorenzana Referring physicians: Kim Guzmán DO Additional provider(s): in this encounter Discharge Instructions * Discharge Instr - Case Management - Tara Fields RN - 08/22/2018 3: 15 PM CDT Your Weekly labs should be obtained through the LAB DPT at [facility] ), with the orders for the labs provided to them through their OP Infusion Clinic ([phone]) where the orders were sent. Call the lab for their location and get them done every Tuesday for them to send to [facility] (info provided to them on their orders). * Discharge Instr - Appointments - Tara Fields RN - 08/22/2018 2:51 PM CDT Your IV Antibiotic will be administered once every two weeks at the [facility] located at: [address] [place] [id number] Your first appointment is 08/24/18 @ 1:45pm. (Arrive 30 minutes early before your first appointment and schedule the rest of your appointments with the sulfuric acid plant operator at the clinic before you leave.) You are to have your labs pulled at [facility] in [place], [place] and you need to call them as soon as possible to get scheduled. We have sent your orders for weekly labs while you are on your IV Antibiotics. Your Depo Lupron injection is to be administered by the same [facility] infusion clinic administered every three months as an intra muscular injection. Orders have been sent to them for this. If you have any problems with any of the above instructions you are welcome to call me for clarification. Tara Fields RN [phone] * Patient Instructions - Yasemin Garcia RN - 08/18/2018 3:01 PM CDT INTERVENTIONAL RADIOLOGY DISCHARGE INSTRUCTIONS UTERINE FIBROID EMBOLIZATION-UFE A Uterine Fibroid Embolization blocks the blood supply to fibroids, causing them to shrink. This may also be referred to as UAE or uterine artery embolization. This procedure reduces the major symptoms of fibroids, including pain, excessive and prolonged bleeding, and frequent urination. During the procedure the Interventional Radiologist will insert a thin tube into an artery in the groin and use x-ray guidance to reach the uterine artery. Tiny round particles are injected into the blood vessels that lead to the fibroids. These particles block blood flow, causing the fibroids to shrink. Many women have mild to severe cramps for several days after their procedure. Some women experience mild nausea and/or have a low grade fever for 4 5 days after their procedure. You may also have vaginal bleeding orbrownish- li vaginal discharge for several weeks. Your next few menstrual cycles may be heavier than normal. POST-PROCEDURE ACTIVITY: Avoid any exertion for one week.Do notlift more than 10 lbs. and avoid pushing, pulling or straining. Avoid excessive bending, stooping or stair climbing for 2 days. It is okay to go up stairs or bend over but take it slowly and keep it to a minumum. Rest when you feel tired. Getting enough sleep will help you recover. Try to walk each day. Start out by walking a little more than you did the day before. Bit by bit, increase the amount you walk. You may have some vaginal bleeding. Wear sanitary pads if needed. Do not douche or use tampons. Do not drive, operate heavy machinery or do anything that requires concentration for at least 24 hours after your procedure. You may drive when you are no longer taking prescription pain pills and can quickly move your foot from the gas pedal to the brake. You must also be able to sit comfortably for a long period of time, even if you do not plan to go far. You might get caught in traffic. You will probably need to take 1 week off work. It depends on the type of work you do and how you feel. Your doctor will tell you when you can resume sexual activity. POST-PROCEDURE SITE CARE: You will have a small bandage over the site. Keep this dry. You may remove it in 24 hours. You may shower in 24 hours, after removing the bandage. Do not submerge the site underwater for 1 week (no swimming/hot tub, etc.) Wash your hands thoroughly beforetouching near the site. Do not use ointments, creams or powders on the puncture site. DIET/MEDICATIONS: You may resume your previous diet 1-2 hours after the procedure. If you receive sedation or narcotic pain medications, avoid any foods or beverages containing alcohol for at least 24 hours after the procedure. Please see the Medication Reconciliation sheet for instructions on resuming your home medications. CALL THE DOCTOR IF: You have severe pain not relieved by medication. Some soreness or tenderness at the site is to be expected for several days. You have persistent nausea or vomiting. You have signs of infection such as: Chills, fever greater than 101F, body aches, redness, swelling or warmth at the puncture site or pus draining from the site. You have new or worse belly swelling or bloating. IF YOU HAVE BLEEDING AT THE PROCEDURE SITE (more than a teaspoon) OR SWELLING (larger than a golf ball) YOU SHOULD LIE DOWN, APPLY FIRM PRESSURE TO THE SITE AND CALL 911. Bleeding from a large blood vessel requires professional help. You or your caregiver should also call 911 symptoms such as severe dizziness, trouble breathing or loss of consciousness. For any of the above symptoms or for problems or concerns related to the procedure, call for Tuesday-Tuesday 7-. After-hours and weekends, please call [phone] and ask for the Interventional Chicken Stuffer on-call. The following attachments cannot be sent through Care Everywhere.* Activity Tips , Diabetes (DJIBOUTIAN) in this encounter Medications at Time of Discharge Medication Sig. Disp. Refills Start Date End Date apixaban (ELIQUIS) 5 mg Take one tablet by mouth 60 tablet 1 2017 tablet twice daily. aspirin EC 81 mg tablet Take 1 tablet by mouth 90 tablet 3 04/19/2018 daily. Take with food. atorvastatin (LIPITOR) 80 Take one tablet by mouth 08/22/2018 mg tablet daily. Hold until you have completed daptomycin therapy. carvedilol (COREG) 3.125 Take 1 tablet by mouth 60 tablet 0 2017 mg tablet twice daily. Take with food. dalbavancin (DALVANCE) Administer one thousand 08/22/2018 500 mg 1,500 mg in five hundred mg through dextrose 5% (D5W) 575 mL vein every 14 days. Doses IVPB will be provided and administered at outpatient clinic. Plan to receive 1500 mg every 2 weeks for 2 doses. Please follow-up with discharge instructions for appointments. ferrous sulfate (FEOSOL, Take one tablet by mouth 90 tablet 3 2017 FEROSUL) 325 mg (65 mg daily. Take on an empty iron) tablet stomach at least 1 hour before or 2 hours after food. furosemide (LASIX) 40 mg Take 1 tablet by mouth 30 tablet 0 05/23/ 2018 tablet daily. insulin aspart U-100 Inject ten Units under 15 mL 1 08/22/2018 (NOVOLOG FLEXPEN) 100 the skin three times unit/mL injection PEN daily with meals. insulin detemir(+) Inject fifty Units under 15 mL 1 08/22/2018 (LEVEMIR FLEXTOUCH U-100 the skin at bedtime INSULN) 100 unit/mL (3 daily. mL) injection pen lisinopril (PRINIVIL, Take 1 tablet by mouth 30 tablet 0 04/19/2018 ZESTRIL) 2.5 mg tablet daily. metFORMIN (GLUCOPHAGE) Take 500 mg by mouth 500 mg tablet twice daily with meals. nystatin (NYSTOP) 100,000 Apply to pannus twice 15 g 0 04/18/2018 unit/g topical powder daily oxyCODONE (ROXICODONE, Take 1-2 tablets by mouth 15 tablet 0 2017 OXY-IR) 5 mg tablet every 12 hours as needed For pain senna/docusate Take one tablet by mouth 30 tablet 0 08/22/2018 (SENOKOT-S) 8.6/50 mg twice daily. tablet spironolactone Take one tablet by mouth 60 tablet 0 08/22/2018 (ALDACTONE) 25 mg tablet daily. Take with food. vitamin A & D oint Apply topically to 60 g 0 08/22/2018 affected area as Needed (Apply vitamin A&D ointment to wound base and cover with a Biatain foam). vitamins, multi Take 1 tablet by mouth 04/19/2018 w/minerals 9 mg iron-400 daily. mcg tab as of this encounter Progress Notes * Petty Fisher RN - 08/22/2018 9:41 PM CDT 7: Patient discharged to main entrance via wheelchair to private vehicle with all personal belongings. Patient transferred safely to care. IV was removed , discharge paperwork in patient possession. Education completed. * Leigha Almaguer RN - 08/22/2018 6:56 PM CDT Reviewed all discharge paperwork with patient. Signed copy in patients chart. Verified all Rx have been sent to local pharmacy. Removed patient's PIV. Awaiting patient's transportation(). Have given $10 QT gift card to at handoff. * Chau Gomez MD - 08/22/2018 2:26 PM CDT Formatting of this note may be different from the original. Progress Note - Internal Medicine Brief Clinical Summary 48 y.o.female(PMHx:Polysubstance abuse;DMII;LV thrombus) presented on 08/09/2018 in transfer w/bilateral body pain --> DKA. Multiple emboli (spleen/kidney/L femoral artery). Underewent emergency thrombectomy. PATRIA 08/14/18. GPC bacteremia. Consultants - Cardiology and Vascular Surgery. Assessment (differential diagnosis) | Status Acute blood loss anemia (vaginal bleeding due to menses) | Ongoing, but remains hemodynamically stable. This hospitalization, has required multiple blood transfusions. Vaginal bleeding (uterine fibroids) | Ongoing, but improving. Last admission, was seen by Gynecology. Endometrial carcinoma/malignancy was excluded at that time. Has been recommended that she take medroxyprogesterone, but she refuses, citing a concern that it makes her bleed rather than prevent bleeding. Gynecology has been in contact with IR regarding uterine artery embolization procedure, and she now agrees. Depo-Provera administered 08/16/18 and on progestin oral. Uterine artery embolization 08/18/18. Left ventricular thrombus (stasis v heart failure) | Ongoing. Complicated by distal emobolization and infarction of multiple organs. Originally diagnosed at [facility] in [place], [place]. She was diagnosed with an LV thrombus and placed on anticoagulation at the beginning of 2017. Non-adherence to anticoagulation. Verified on PATRIA done 08/14/18 (results below), and no perivalvular abscesses noted. Currently on AC with enoxaparin, and risk:benefit discussions have highlighted need for AC in spite of ongoing vaginal bleeding, which developed at onset of menses. Bilateral lower extremity ischemia (embolization from LV thrombus) | Resolved. S /P Left common femoral, profunda and superficial femoral artery thrombectomy followed by closure with bovine pericardial patch. She underwent thrombectomy of the right SFA, popliteal artery, anterior tibial artery, posterior tibial artery and peroneal artery. Attempted thrombectomy was performed at the right posterior and anterior tibial arteries, however, there were findings of chronic arterial occlusion Vascular Surgery planning to place Provena wound VAC at the time of discharge. They note that the battery will run out approximately 7 days after started and at that time she may remove the dressing and leave the space open to air. ASA on hold. Polymicrobial bacteremia | Clinically improving. Infectious Diseases contacted the hospital in [facility] to request records demonstrating staph aureus, enterococcus (later clarified and speciated to beta-hemolytic strep was the final change), coag negative staph. Currently on daptomycin, with plans for prolonged course. CM working on arranging dalvabancin as an outpatient - 2 doses 2 weeks apart. If not possible, will need to stay inpatient for entire course (uninsured). Splenic artery emboli (embolization from LV thrombus) | Noted on CT angiogram performed at the time of presentation. Asymptomatic. Renal artery emboli (embolization from LV thrombus) | Noted on CT angiogram performed at the time of presentation. Asymptomatic. Chronic systolic heart failure (non-ischemic cardiomyopathy) | Compensated, and improved since 04/11/18. 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 Currently on carvedilol , lisinopril, and furosemide. Echocardiogram 08/10/18 with improvement from ( results below) ~15% to 30%. PATRIA (results below) re-demonstrating clot. DMII (insulin resistance) | Improving control, and suspicion for non-adherence at home and lack of access to affordable alternatives. At presentation, was in DKA. Reports that at home she was on detemir and aspart, but that she had not been prescribed enough. She notes cost-effective options at the [facility] in [place], [place] - called and they in fact have low-cost detemir and aspart. *Spoke with [facility] [phone] and they have inexpensive medications available: Insulin detemir box of 5 pens $15 Insulin aspart box of 5 pens $8 (She has stated she can afford this). Titration ongoing. Chronic illness/Moderate non-severe malnutrition | Weight loss 10% x 6 months w/ mild loss of muscle mass and energy intake: < 75% of estimated energy requirement for 1 month or more Pressure wound on coccyx, stage 2 | Not POA. Wound care consulting. Polysubstance abuse (addiction versus education deficit ) | Pre- contemplative stage of cessation. Endorsed smoking methamphetamine at the time of presentation. UDS at the time of admission was positive for opiates, amphetamines, and methamphetamines at the outside hospital. Denies ongoing IV drug use. Status post left BKA | Well-healed and at her baseline functional level. She uses wheelchair to live in her home independently and gets around without a device. Pulmonary nodule | Stable. Noted on CT angiogram performed 08/09/2018 and described as unchanged as compared to prior exam. Since she is a high risk patient requires CT follow-up in 1 year. Iron deficiency anemia (vaginal blood loss) | Ongoing. On iron replacement with ferrous sulfate 325mg PO BID with meals. Iron studies obtained 04/11/18 with severe iron deficiency. Polysubstance abuse (addiction v educational deficit) | No current clinical evidence of withdrawal. At risk for DVT (hospitalization/immobilization) | On enoxaparin for AC. Plan Hb 6.8 this am , received 1 prbc, hb 7.9. 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 PCP to help with financial assistance in future S/p Uterine artery embolization 08/18, patient reports bleeding improved. Continue oral pain control regimen, with oxycodone 2.5-5mg Q4h PRN while IP, change insulin glargine to 50U hs on discharge Rokeenan stokes to GAGANE Patient is adamant to go home. Patient was explained To closely follow up with PCP . Go to nearest ER if she notices increased bleeding. Also she needs to come to OP infusion clinic every 2 weeks for abx. She needs weekly labs Follow up with pcp in 1 week with cbc and bmp >31 minutes in [id number]-[id number] time spent with patient, patient/family counseling, coordination of care, and completion of discharge summary. Subjective Patient reports doing fine , she is adamant to go home.her family is . She is frustrated to be in the hospital.Reports intermittent abdominal cramps, controlled with po oxy.Says her Vaginal bleeding improved . . No fever, no chills, no nausea. No lightheadedness, but has been largely bedbound. Review of Systems hb CONS: No subjective fever, no chills. CVS: No palpitations. No chest pain. RESP: No dyspnea. No cough. GI: No abdominal pain. No diarrhea or constipation. No nausea, no vomiting. : Vaginal bleeding persists. Objective Vital Signs Temp: [36.5 C (97.7 F)-37.4 C (99.4 F)] Pulse: [82-97] Respirations: [14 PER MINUTE-20 PER MINUTE] SpO2: [97 %-100 %] BP: (85-127)/(48-75) I/Os from Yesterday's Shift 08/21 0701 - 08/22 0700 In: 300 Out: 2350 [Urine:2350] Physical Examination GEN: Alert and oriented x3 (person/place/time), NAD. CVS: S1/S2 audible, no murmurs audible. Appears and feels warm and well- perfused. HEENT: Poor dentition. RESP: Lungs clear to ascultation. No wheezes, rhonchi, nor crackles. GI: Abdomen soft. Non-tender to palpation. SKIN: Warm. Dry. L groin wound clean and dry MSK: R leg in boot. L leg BKA. Lab Studies Results for orders placed or performed during the hospital encounter of (from the past 48 hour(s)) BASIC METABOLIC PANEL Collection Time: 08/20/18 4:48 PM # # Low-High Sodium 136 (L) 137 - 147 MMOL/L Potassium 4.6 3.5 - 5.1 MMOL/L Chloride 102 98 - 110 MMOL/L CO2 29 21 - 30 MMOL/L Anion Gap 5 3 - 12 Glucose 97 70 - 100 MG/DL Blood Urea Nitrogen 19 7 - 25 MG/DL Creatinine 0.78 0.4 - 1.00 MG/DL Calcium 8.5 8.5 - 10.6 MG/DL eGFR Non >60 >60 mL/min eGFR >60 >60 mL/min POC GLUCOSE Collection Time: 08/20/18 4:50 PM # # Low-High Glucose, POC 100 70 - 100 MG/DL POC GLUCOSE Collection Time: 08/20/18 8:32 PM # # Low-High Glucose, POC 279 (H) 70 - 100 MG/DL COMPREHENSIVE METABOLIC PANEL Collection Time: 08/21/18 4:22 AM # # Low-High Sodium 129 (L) 137 - 147 MMOL/L Potassium 4.9 3.5 - 5.1 MMOL/L Chloride 99 98 - 110 MMOL/L Glucose 229 (H) 70 - 100 MG/DL Blood Urea Nitrogen 20 7 - 25 MG/DL Creatinine 0.77 0.4 - 1.00 MG/DL Calcium 8.3 (L) 8.5 - 10.6 MG/DL Total Protein 5.0 (L) 6.0 - 8.0 G/DL Total Bilirubin 0.2 (L) 0.3 - 1.2 MG/DL Albumin 2.5 (L) 3.5 - 5.0 G/DL Alk Phosphatase 64 25 - 110 U/L AST (SGOT) 12 7 - 40 U/L CO2 25 21 - 30 MMOL/L ALT (SGPT) 6 (L) 7 - 56 U/L Anion Gap 5 3 - 12 eGFR Non >60 >60 mL/min eGFR >60 >60 mL/min CBC AND DIFF Collection Time: 08/21/18 4:52 AM # # Low-High White Blood Cells 21.3 (H) 4.5 - 11.0 K/UL RBC 2.03 (L) 4.0 - 5.0 M/UL Hemoglobin 6.0 (L) 12.0 - 15.0 GM/DL Hematocrit 18.4 (L) 36 - 45 % MCV 90.7 80 - 100 FL MCH 29.5 26 - 34 PG MCHC 32.6 32.0 - 36.0 G/DL RDW 18.1 (H) 11 - 15 % Platelet Count 544 (H) 150 - 400 K/UL MPV 7.9 7 - 11 FL Neutrophils 86 (H) 41 - 77 % Lymphocytes 7 (L) 24 - 44 % Monocytes 2 (L) 4 - 12 % Eosinophils 3 0 - 5 % Basophils 2 0 - 2 % Absolute Neutrophil Count 18.30 (H) 1.8 - 7.0 K/UL Absolute Lymph Count 1.40 1.0 - 4.8 K/UL Absolute Monocyte Count 0.50 0 - 0.80 K/UL Absolute Eosinophil Count 0.60 (H) 0 - 0.45 K/UL Absolute Basophil Count 0.40 (H) 0 - 0.20 K/UL TYPE & CROSSMATCH Collection Time: 08/21/18 5:45 AM # # Low-High Units Ordered 3 Crossmatch Expires 08/24/2018 Record Check FOUND ABO/RH(D) A NEG Antibody Screen NEG Electronic Crossmatch YES Unit Number [id number] Blood Component Type RBC,ADSOL,LEUKO REDUCED Unit Division 0 Status OF Unit TRANSFUSED Transfusion Status OK TO TRANSFUSE Crossmatch Result COMPATIBLE,ELECTRONIC Unit Number [id number] Blood Component Type RBC,ADSOL,LEUKO REDUCED Unit Division 0 Status OF Unit ISSUED Transfusion Status OK TO TRANSFUSE Crossmatch Result COMPATIBLE,ELECTRONIC POC GLUCOSE Collection Time: 08/21/18 7:20 AM # # Low-High Glucose, POC 275 (H) 70 - 100 MG/DL CBC Collection Time: 08/21/18 10:19 AM # # Low-High White Blood Cells 27.0 (H) 4.5 - 11.0 K/UL RBC 2.63 (L) 4.0 - 5.0 M/UL Hemoglobin 7.8 (L) 12.0 - 15.0 GM/DL Hematocrit 23.4 (L) 36 - 45 % MCV 89.0 80 - 100 FL MCH 29.6 26 - 34 PG MCHC 33.3 32.0 - 36.0 G/DL RDW 16.5 (H) 11 - 15 % Platelet Count 655 (H) 150 - 400 K/UL MPV 8.0 7 - 11 FL POC GLUCOSE Collection Time: 08/21/18 12:18 PM # # Low-High Glucose, POC 169 (H) 70 - 100 MG/DL POC GLUCOSE Collection Time: 08/21/18 6:57 PM # # Low-High Glucose, POC 208 (H) 70 - 100 MG/DL POC GLUCOSE Collection Time: 08/21/18 9:54 PM # # Low-High Glucose, POC 214 (H) 70 - 100 MG/DL COMPREHENSIVE METABOLIC PANEL Collection Time: 08/22/18 3:25 AM # # Low-High Sodium 131 (L) 137 - 147 MMOL/L Potassium 4.9 3.5 - 5.1 MMOL/L Chloride 99 98 - 110 MMOL/L Glucose 193 (H) 70 - 100 MG/DL Blood Urea Nitrogen 22 7 - 25 MG/DL Creatinine 0.93 0.4 - 1.00 MG/DL Calcium 8.2 (L) 8.5 - 10.6 MG/DL Total Protein 5.0 (L) 6.0 - 8.0 G/DL Total Bilirubin 0.2 (L) 0.3 - 1.2 MG/DL Albumin 2.4 (L) 3.5 - 5.0 G/DL Alk Phosphatase 55 25 - 110 U/L AST (SGOT) 14 7 - 40 U/L CO2 27 21 - 30 MMOL/L ALT (SGPT) 8 7 - 56 U/L Anion Gap 5 3 - 12 eGFR Non >60 >60 mL/min eGFR >60 >60 mL/min CBC AND DIFF Collection Time: 08/22/18 3:25 AM # # Low-High White Blood Cells 26.0 (H) 4.5 - 11.0 K/UL RBC 2.25 (L) 4.0 - 5.0 M/UL Hemoglobin 6.8 (L) 12.0 - 15.0 GM/DL Hematocrit 20.4 (L) 36 - 45 % MCV 90.6 80 - 100 FL MCH 30.1 26 - 34 PG MCHC 33.2 32.0 - 36.0 G/DL RDW 18.1 (H) 11 - 15 % Platelet Count 779 (H) 150 - 400 K/UL MPV 7.6 7 - 11 FL Neutrophils 86 (H) 41 - 77 % Lymphocytes 6 (L) 24 - 44 % Monocytes 3 (L) 4 - 12 % Eosinophils 4 0 - 5 % Basophils 1 0 - 2 % Absolute Neutrophil Count 22.40 (H) 1.8 - 7.0 K/UL Absolute Lymph Count 1.60 1.0 - 4.8 K/UL Absolute Monocyte Count 0.70 0 - 0.80 K/UL Absolute Eosinophil Count 0.90 (H) 0 - 0.45 K/UL Absolute Basophil Count 0.30 (H) 0 - 0.20 K/UL POC GLUCOSE Collection Time: 08/22/18 5:59 AM # # Low-High Glucose, POC 289 (H) 70 - 100 MG/DL POC GLUCOSE Collection Time: 08/22/18 6:56 AM # # Low-High Glucose, POC 303 (H) 70 - 100 MG/DL POC GLUCOSE Collection Time: 08/22/18 11:43 AM # # Low-High Glucose, POC 137 (H) 70 - 100 MG/DL CBC Collection Time: 08/22/18 12:03 PM # # Low-High White Blood Cells 29.1 (H) 4.5 - 11.0 K/UL RBC 2.72 (L) 4.0 - 5.0 M/UL Hemoglobin 7.9 (L) 12.0 - 15.0 GM/DL Hematocrit 24.0 (L) 36 - 45 % MCV 88.4 80 - 100 FL MCH 29.2 26 - 34 PG MCHC 33.0 32.0 - 36.0 G/DL RDW 18.2 (H) 11 - 15 % Platelet Count 849 (H) 150 - 400 K/UL MPV 7.4 7 - 11 FL Imaging Studies Recent imaging reviewed. Notable for: CT angiogram of the abdominal aorta with bilateral runoff without and with contrast performed 08/09/2018 with redemonstration of left ventricular mass and completed motion of the left femoral. Also complete occlusion of the right popliteal with collateral reconstitution at the trifurcation vessels which are poorly opacified. Patchy wedge-shaped hypodensities throughout the spleen and left kidney consistent with known splenic and renal emboli. Also increase in size of the fatcontaining umbilical hernia and improvement in diffuse body wall edema. There is moderate luminal narrowing of the infrarenal abdominal aorta without aneurysm. There is an enlarged likely fibroid uterus unchanged from previous exam. There is a small right lung base nodule unchanged from prior exam. PATRIA 08/15/18 w/All apical left ventricular segments appear hypokinetic. Overall left ventricular systolic function is moderately impaired. The estimated left ventricular ejection fraction is 35%. The left ventricle appears mildly enlarged. Right ventricular contractility appears normal. Moderate left atrial enlargement. Mild right atrial enlargement. Cardiac valve structures are unremarkable. Mild tricuspid valve regurgitation is noted by Doppler exam. No valvular vegetations are noted. No perivalvular abscesses noted. No pericardial effusion is seen. A large, mobile left ventricular apical thrombus is noted which measures approximately 2.3 x 2.9 cm in dimensions. A patent foramen ovale is noted by color flow Doppler exam. Microbiological Studies Recent microbiology reviewed. Notable for: Blood culture collected 04/11/2018 negative Blood culture collected 04/11/2018 negative Urine culture collected 04/11/2018 negative MRSA screen 08/09/2018 negative Perirectal VRE swab collected 08/09/2018 negative Blood culture collected 08/09/2018 from the left wrist no growth Blood culture collected 08/10/2018 no growth at 4 days Pathology ThinPrep cytology performed 04/14/2018 low risk HPV Endometrial biopsy performed 04/14/2018 demonstrated minute fragments of benign endometrial epithelium and endocervical glandular mucosa with no evidence of hyperplasia, dysplasia, or malignancy. Discharge Planning/Barriers to Discharge Uninsured, so follow-up may be difficult Future Appointments Date Time Provider Department Center 09/18/2018 1:30 PM Ravi Torres MD [facility] PHOTO JOURNALIST Daily Rounding Checklist Line necessity Fernández necessity Telemetry necessity PT/OT necessity DME needs evaluated and supplied Diet at highest level IV --> PO medications Teaching needs Pharmacy needs Wound care needs Planned D/C location (Home/LTAC/SNF/Rehab/Other) Chau Gomez MD [id number] * VarinderAleyda, PT - 08/22/2018 9:32 AM CDT PHYSICAL THERAPY PROGRESS NOTE MOBILITY: Progressive Mobility Level: Active transfer to chair Level of Assistance: Stand by assistance Assistive Device: Walker Activity Limited By: Patient request to stop SUBJECTIVE: Significant hospital events: PMHx: L BKA, polysubstance abuse, uncontrolled diabetes, left ventricular thrombus. Admitted from an OSH transfer with chief complaint of left-sided and right-sided pain and noticed to be in DKA, multiple emboli including splenic emboli, renal artery emboli, left femoral artery thrombus with complete occlusion. s/p left femoral thrombectomy and right popliteal and tibial thrombectomy on 08/09. Mental / Cognitive Status: Alert;Cooperative Persons Present: Nursing Staff Pain: Patient has no complaint of pain Pain Interventions: Patient agrees to participate in therapy R LE Precautions: Elevate (rooke boot on in bed) Ambulation Assist: Primary Wheelchair User;Independent Mobility at Household Level with Device Patient Owned Equipment: Manual Wheelchair Home Situation: Lives with Family Type of Home: House Entry Stairs: 1-2 Stairs In-Home Stairs: No Stairs BED MOBILITY/TRANSFERS: Bed Mobility: Supine to Sit: Modified Independent;Head of Bed Elevated Transfer Type: Sit to/from Stand;Stand Pivot Transfer: Assistance Level: To/From;Bed;Bed Side Chair;Standby Assist Transfer: Assistive Device: Roller Walker End Of Activity Status: Up in Chair ACTIVITY/EXERCISE: Patient able to perform a safe stand pivot using a walker without physical assist. Patient declines further mobility at this time, reporting the previous wheelchair was "too large" for her and she didn't want to use it. ASSESSMENT/PROGRESS: Patient is safe completing a stand pivot transfer with a walker at this time. She has demonstrated non safe techniques without the walker and would benefit from a walker for home use. GOALS: Goal Formulation: With Patient Time For Goal Achievement: 6 days Pt Will Go Supine To/From Sit: w/ Stand By Assist, Met Pt Will Transfer Bed/Chair: w/ Stand By Assist, Met Pt Will Transfer Sit to Stand: w/ Stand By Assist, Met Pt Will Propel Wheelchair: >150 Feet, Independently PLAN: Treatment Interventions: Mobility Training;Strengthening;ROM Plan Frequency: 3 Days per Week PT Plan for Next Visit: Continue transfer training, wheelchair mobility RECOMMENDATIONS: PT Discharge Recommendations: Home with Assistance Equipment Recommendations: Roller Walker - Patient requires the use of a walker with wheels to complete ADLs in the home including meal preparation, ambulation the bathroom for toileting, bathing and grooming, and safe home mobility. Patient is unable to complete these ADLs with a cane or crutch and can safely use the walker. (The patient is uninsured and would need a ryan walker). Called welfare case worker to discuss recommendations. Therapist: Aleyda Reeder, PT, DPT Date: 08/22/2018 * Ebony Angeles OT - 08/22/2018 8:23 AM CDT OCCUPATIONAL THERAPY NOTE Followed up with patient this day, patient currently functioning at baseline, no difficulty with bed/chair level ADL and transfer. Patient expressed interest in working on short distance gait using walker. OT communicated the same with PT. Discharge recommendation: home Equipment recommendation: none [place]ist: [place] [id number] Date: 08/22/2018 * Margie Lopez RN - 08/22/2018 6:13 AM CDT 0445 - Notified Dr Rincon pt's Hgb 6.8. 1 unit PRBC ordered. * Denys Salvador MD - 08/21/2018 5:44 PM CDT Formatting of this note may be different from the original. Infectious Disease Progress Note Name: Betina Baron Today's Date: 08/21/2018 Assessment: 1. Uncontrolled diabetes - reportedly BG levels as high as 800s in recent past - last HgA1C on file at [facility] from 04/11/18 was 10.5 2. Polysubstance abuse - long-term methamphetamine user (smoke); distant crack cocaine use reportedly - Denies IVDA - Patient's UDS was positive for opiates, methamphetamines and amphetamines at OSH - Current ppd tobacco smoker 3. LV Thrombus + arterial emboli / cardiomyopathy - echo (04/11/18): Moderately dilated LV with severely reduced EF=15%. 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 Mild eccentric LV hypertrophy. Normal RV. Moderate LA dilation; mild atrial dilation; elevated CVP; normal valvular structures - Cardiology consulted - carvedilol,lisinopril, spironolactone, lasix - CTA abdomen with aortogram + bilateral runoff (): small pericardial effusion, wedge-shaped defect in segment 7 of the liver, wedge shaped hypodensities throughout the spleen and left kidney consistent with thrombotic events. CTA also demonstrated left ventricular mass consistent with thrombus, complete occlusion of the left proximal femoral and femoral profundus arteries, complete occlusion at the level of the right popliteal artery and enlarged uterus likely secondary to fibroid. - OR (08/09/18): eft common femoral, profunda and superficial femoral artery thrombectomy followed by closure with bovine pericardial patch. She underwent thrombectomy of the right SFA, popliteal artery, anterior tibial artery, posterior tibial artery and peroneal artery. Attempted thrombectomy was performed at the right posterior and anterior tibial arteries, however, there were findingsof chronic arterial occlusion 4. Positive blood culture -Per outside hospital "growing GPCs" Called [facility] lab in [place], [place] to request records which show in 1/2 bottles: Pt is currently growning MSSA, MRSE, and Enterococcus (Vanc S) from blood cultures Staph aureus - etiology unknown - Blood cultures have been obtained 08/09 NGTD, and 5. BARRETT estimated creatinine clearance is 80.9 mL/min (based on SCr of 0.9 mg/dL). Cr is double her baseline of 0.5 6. Antimicrobial Intolerance/Sensitivity - Penicillin- said to cause rash, hive, and shortness of breath Recommendations: Continue Daptomycin 10mg/kg q24hr while inpatient. She is NOTa candidate for a PICC line as outpatient given hx of polysubstance use. Upon discharge: Dalbavancin 1500mg 2 weeks apart, with weekly CBC, diff, CMP. Awaiting final work from social work as to whether this is a viable option. Bleeding management per WORKFORCE ANALYST __ Interval Hx Seen and examined. 08/18/18 went for uterine angiogram and uterine fibroid embolization Vagina bleeding continues but improved. Hb down to 6.0 this am and she received transfusion. WBC 27, Hb 6.0 --> 7.8, Plts 655 Cr 0.77 Antimicrobial Start date End date Ceftaroline 08/10 08/11 Daptomycin 08/10 Active Estimated Creatinine Clearance: 104 mL/min (based on SCr of 0.77 mg/dL). 08/17 CK 40 Medications Scheduled Meds: acetaminophen (TYLENOL) tablet 500 mg 500 mg Oral Q8H carvedilol (COREG) tablet 3.125 mg 3.125 mg Oral BID DAPTOmycin (CUBICIN) injection 700 mg 10 mg/kg (Adjusted) Intravenous Q24H* enoxaparin (LOVENOX) syringe 70 mg 70 mg Subcutaneous BID ferrous sulfate (FEOSOL, FEROSUL) tablet 325 mg 325 mg Oral Q48H* furosemide (LASIX) tablet 40 mg 40 mg Oral QDAY insulin aspart U-100 (NOVOLOG FLEXPEN) injection PEN 0-14 Units 0-14 Units Subcutaneous ACHS insulin aspart U-100 (NOVOLOG FLEXPEN) injection PEN 10 Units 10 Units Subcutaneous TID w/ meals insulin glargine (LANTUS SOLOSTAR, BASAGLAR) injection PEN 20 Units 20 Units Subcutaneous BID medroxyprogesterone (proVERA) tablet 10 mg 10 mg Oral BID methocarbamol (ROBAXIN) tablet 750 mg 750 mg Oral Q8H polyethylene glycol 3350 (MIRALAX) packet 17 g 1 packet Oral BID senna/docusate (SENOKOT-S) tablet 1 tablet 1 tablet Oral BID vitamins, multi w/minerals tablet 1 tablet 1 tablet Oral QDAY Continuous Infusions: PRN and Respiratory Meds:benzocaine/menthol Q2H PRN, diphenhydrAMINE/lidocaine/ antacid (#) TID PRN, naloxone PRN, ondansetron (ZOFRAN) IV Q6H PRN, oxyCODONE Q3H PRN, vitamin A & D PRN Physical Examination Vital Signs: Last Vital Signs: 24 Hour Range BP: 101/59 (08/21 917) Temp: 37.1 C (98.7 F) (08/21 917) Pulse: 81 (08/21 917) Respirations: 19 PER MINUTE (08/21 917) SpO2: 99 % (08/21 917) O2 Delivery: None (Room Air) (08/21 917) SpO2 Pulse: 80 (08/21 917) BP: (96-124)/(51-69) Temp: [36.4 C (97.6 F)-37.3 C (99.1 F)] Pulse: [78-97] Respirations: [12 PER MINUTE-20 PER MINUTE] SpO2: [99 %-100 %] O2 Delivery: None (Room Air) General:NAD, unkempt, appears older than stated age HEENT: No thrush;largely edentulous with many missing/broken teeth Lungs:no wheezing Heart: Regular rhythm, reg rate Abdomen:soft Ext:post thrombectomy scars of the right leg x3 with upper incision site appearing slightly erythematous (will continue to watch)/ left thrombectomy site covered with wound vac, Skin: no rashes/lesions, multiple tattoos throughout the body Neuro: alert interactive Psych: normal mood Lines: PIV Laboratory Hematology Recent Labs 08/20/18 0324 08/21/18 0452 08/21/18 1019 WBC 18.0* 21.3* 27.0* HGB 7.8* 6.0* 7.8* HCT 23.4* 18.4* 23.4* PLTCT 425* 544* 655* Chemistry Recent Labs 08/19/18 0530 08/20/18 0324 08/20/18 1648 08/21/18 0422 NA 129* 133* 136* 129* K 4.6 5.7* 4.6 4.9 CL 100 103 102 99 CO2 22 25 29 25 BUN 20 18 19 20 CR 0.88 0.78 0.78 0.77 GFR >60 >60 >60 >60 GLU 319* 157* 97 229* CA 7.8* 8.5 8.5 8.3* ALBUMIN 2.3* 2.7* -- 2.5* ALKPHOS 64 71 -- 64 AST 11 22 -- 12 ALT <3* 10 -- 6* TOTBILI 0.2* 0.3 -- 0.2* Microbiology, Radiology and other Diagnostics Review Microbiology reviewed. Pertinent radiology viewed. Denys Can MD Division of Infectious Diseases * Sade Ibrahim RD - 08/21/2018 4:01 PM CDT CLINICAL NUTRITION Clinical Nutrition Follow-Up Summary NAME:Betina Baron :1970 AGE : 48 y.o. ADMISSION DATE: 08/09/2018 DAYS ADMITTED: LOS: 12 days Nutrition Assessment of Patient: Malnutrition Assessment: Malnutrition present Current Oral Intake: Marginally Adequate Estimated Calorie Needs: [id number] (28-30 kcals/kg per 68.6kg) Estimated Protein Needs: 86 (1.25 gm/kg per 68.6kg) Oral Diet Order: Cardiac, Diabetic [id number] Kcal/day (75 g Carb/meal, 30 g Carb /HS snack) Comments: Betina Baron is a 48 y.o. female with a pmh of DM, polysubstance abuse, LV thrombus, CHF, L BKA, GLENNY who presented from an OSH in [facility] with splenic and renal artery emboli and right and left lower extremity ischemia secondary to left common femoral, profunda, and SFA occlusion and right popliteal and trifurcation occlusion who is now 1 Day Post-Op from left femoral thrombectomy, right popliteal and tibial thrombectomy (bilateral) (08/09/2018). RD initially consulted for Diet education. Education provided this admission 08/10. Pt reports she has had a decreased appetite for several months, leading to a ~20# weight loss. EMR weight agree showing a 23# weight loss (174 lbs to 151 lbs) since discharge in March, this is a 13% wt loss in 4 months, which is considered severe. Pt noted to have moderate fat and muscle wasting. Along with poor dentition. Pt meets criteria for moderate chronic malnutrition. Pts A1C is 10.3 , POC BGs have been 125-279 over the past 24 hours. Pt has been non-compliant with DM diet. Pt continues to ask for carbohydrates than allowed on her diet. Carb limit was increased on her diet, but Pt is still asking for more. Nursing is providing snacks from floor stock but is trying to limit Pt to 30 gm per snack. Pt again was sleeping at time of RD visit. Pt continues to be tearful/ frustrated today per MD noted, did not attempt to awake Pt. Noted meal try present at bedside. Noted Pt has been eating 100% of meals per medical claims representative. Noted Pt's most recent weight is up ~15# from admission, possibly due to fluid in addition to improved PO intake and BG control. No edema noted. Noted stage 2 on coccyx recorded, wound care following. RD to order MVI to aid healing. Recommendation: Continue current diet as ordered. Recommend follow up with RD at diabetes center. Intervention / Plan: Will monitor PO intake adequacy/ tolerance Will monitor GI function, labs, and weights RD to order MVI Nutrition Diagnosis: Inadequate oral intake (resolving) Etiology: related to decrease appetite Signs & Symptoms: RN reports/documentation Altered nutrition-related laboratory values, specify: (A1C 10.3) Etiology: related to diet noncompliance Signs & Symptoms: as evidenced by Pt reports and lab values Goals: Patient to consume >75% of meals Time Frame: Throughout Stay Prevent further weight loss Time Frame: Throughout Stay Status: Partially met;Ongoing Aid in stabilizing blood glucose Time Frame: Prior to Discharge Status: Ongoing Sade Ibrahim MS, RD, LD, [facility] Pager [phone] Office [phone] * Chau Gomez MD - 08/21/2018 11:15 AM CDT Formatting of this note may be different from the original. Progress Note - Internal Medicine Brief Clinical Summary 48 y.o.female(PMHx:Polysubstance abuse;DMII;LV thrombus) presented on 08/09/2018 in transfer w/bilateral body pain --> DKA. Multiple emboli (spleen/kidney/L femoral artery). Underewent emergency thrombectomy. PATRIA 08/14/18. GPC bacteremia. Consultants - Cardiology and Vascular Surgery. Assessment (differential diagnosis) | Status Acute blood loss anemia (vaginal bleeding due to menses) | Ongoing, but remains hemodynamically stable. This hospitalization, has required multiple blood transfusions. Vaginal bleeding (uterine fibroids) | Ongoing, but improving. Last admission, was seen by Gynecology. Endometrial carcinoma/malignancy was excluded at that time. Has been recommended that she take medroxyprogesterone, but she refuses, citing a concern that it makes her bleed rather than prevent bleeding. Gynecology has been in contact with IR regarding uterine artery embolization procedure, and she now agrees. Depo-Provera administered 08/16/18 and on progestin oral. Uterine artery embolization 08/18/18. Left ventricular thrombus (stasis v heart failure) | Ongoing. Complicated by distal emobolization and infarction of multiple organs. Originally diagnosed at [facility] in [place], [place]. She was diagnosed with an LV thrombus and placed on anticoagulation at the beginning of 2018. Non-adherence to anticoagulation. Verified on PATRIA done 08/14/18 (results below), and no perivalvular abscesses noted. Currently on AC with enoxaparin, and risk:benefit discussions have highlighted need for AC in spite of ongoing vaginal bleeding, which developed at onset of menses. Bilateral lower extremity ischemia (embolization from LV thrombus) | Resolved. S /P Left common femoral, profunda and superficial femoral artery thrombectomy followed by closure with bovine pericardial patch. She underwent thrombectomy of the right SFA, popliteal artery, anterior tibial artery, posterior tibial artery and peroneal artery. Attempted thrombectomy was performed at the right posterior and anterior tibial arteries, however, there were findings of chronic arterial occlusion Vascular Surgery planning to place Provena wound VAC at the time of discharge. They note that the battery will run out approximately 7 days after started and at that time she may remove the dressing and leave the space open to air. ASA on hold. Polymicrobial bacteremia | Clinically improving. Infectious Diseases contacted the hospital in [facility] to request records demonstrating staph aureus, enterococcus (later clarified and speciated to beta-hemolytic strep was the final change), coag negative staph. Currently on daptomycin, with plans for prolonged course. CM working on arranging dalvabancin as an outpatient - 2 doses 2 weeks apart. If not possible, will need to stay inpatient for entire course (uninsured). Splenic artery emboli (embolization from LV thrombus) | Noted on CT angiogram performed at the time of presentation. Asymptomatic. Renal artery emboli (embolization from LV thrombus) | Noted on CT angiogram performed at the time of presentation. Asymptomatic. Chronic systolic heart failure (non-ischemic cardiomyopathy) | Compensated, and improved since 04/11/18. 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 Currently on carvedilol , lisinopril, and furosemide. Echocardiogram 08/10/18 with improvement from ( results below) ~15% to 30%. PATRIA (results below) re-demonstrating clot. DMII (insulin resistance) | Improving control, and suspicion for non-adherence at home and lack of access to affordable alternatives. At presentation, was in DKA. Reports that at home she was on detemir and aspart, but that she had not been prescribed enough. She notes cost-effective options at the [facility] in [place], [place] - called and they in fact have low-cost detemir and aspart. *Spoke with [facility] [phone] and they have inexpensive medications available: Insulin detemir box of 5 pens $15 Insulin aspart box of 5 pens $8 (She has stated she can afford this). Titration ongoing. Chronic illness/Moderate non-severe malnutrition | Weight loss 10% x 6 months w/ mild loss of muscle mass and energy intake: < 75% of estimated energy requirement for 1 month or more Pressure wound on coccyx, stage 2 | Not POA. Wound care consulting. Polysubstance abuse (addiction versus education deficit ) | Pre- contemplative stage of cessation. Endorsed smoking methamphetamine at the time of presentation. UDS at the time of admission was positive for opiates, amphetamines, and methamphetamines at the outside hospital. Denies ongoing IV drug use. Status post left BKA | Well-healed and at her baseline functional level. She uses wheelchair to live in her home independently and gets around without a device. Pulmonary nodule | Stable. Noted on CT angiogram performed 08/09/2018 and described as unchanged as compared to prior exam. Since she is a high risk patient requires CT follow-up in 1 year. Iron deficiency anemia (vaginal blood loss) | Ongoing. On iron replacement with ferrous sulfate 325mg PO BID with meals. Iron studies obtained 04/11/18 with severe iron deficiency. Polysubstance abuse (addiction v educational deficit) | No current clinical evidence of withdrawal. At risk for DVT (hospitalization/immobilization) | On enoxaparin for AC. Plan Hb 6 this am , received 1 prbc, hb 7.8.reports changing 2 pads this am Cont Carvedilol -bp better and blood loss improved Continue to hold ACEI Cont furosemide Continue current IV antibiotics: Daptomycin Continue enoxaparin 70mg BID for anticoagulation, weighing risk:benefit of vaginal bleeding which she states is her menstrual cycle or definitive control with UAE. S/p Uterine artery embolization 08/18, patient reports bleeding improved. Pain controlled, with po oxy Continue to evaluate alternatives to enoxaparin (given poor adherence to warfarin in the past) and possible NOAC - by report, PCP working on finding financial assistance program for apixapban and this will need to be verified before DC Continue oral pain control regimen, with oxycodone 2.5-5mg Q4h PRN Cont insulin glargine to 20U BID Rooke boot to RLE CM to look in to dalbavancin 1500mg Q2 weeks for 4 weeks D/w NCM will be able to arrange abx through OP infusion clinic I spent a total of 40 minutes in pt care today with an estimated 20 minutes spent reviewing course to date, including chart review of vitals, labs, overnight events, and coordinating care. Complexity of medical decision making is high because of the multi-system nature of disease process. Subjective Patient reports doing fine , she is anxious to go home. She tearful and emotional . She is frustrated to be in the hospital.Reports intermittent abdominal cramps, controlled with po oxy.Says had Vaginal bleeding this am , changed 2 pads . . No fever, no chills, no nausea. No lightheadedness, but has been largely bedbound. Review of Systems hb CONS: No subjective fever, no chills. CVS: No palpitations. No chest pain. RESP: No dyspnea. No cough. GI: No abdominal pain. No diarrhea or constipation. No nausea, no vomiting. : Vaginal bleeding persists. Objective Vital Signs Temp: [36.4 C (97.6 F)-37.3 C (99.1 F)] Pulse: [78-97] Respirations: [12 PER MINUTE-20 PER MINUTE] SpO2 Pulse: [77-92] SpO2: [99 %-100 %] BP: (96-124)/(51-69) I/Os from Yesterday's Shift 08/20 0701 - 08/21 0700 In: 962 [P.O.:942; I.V.:20] Out: 2960 [Urine:2750] Physical Examination GEN: Alert and oriented x3 (person/place/time), NAD. CVS: S1/S2 audible, no murmurs audible. Appears and feels warm and well- perfused. HEENT: Poor dentition. RESP: Lungs clear to ascultation. No wheezes, rhonchi, nor crackles. GI: Abdomen soft. Non-tender to palpation. SKIN: Warm. Dry. L groin wound clean and dry MSK: R leg in boot. L leg BKA. Lab Studies Results for orders placed or performed during the hospital encounter of (from the past 48 hour(s)) POC GLUCOSE Collection Time: 08/19/18 11:47 AM # # Low-High Glucose, POC 140 (H) 70 - 100 MG/DL CBC Collection Time: 08/19/18 3:20 PM # # Low-High White Blood Cells 20.9 (H) 4.5 - 11.0 K/UL RBC 2.53 (L) 4.0 - 5.0 M/UL Hemoglobin 7.5 (L) 12.0 - 15.0 GM/DL Hematocrit 22.9 (L) 36 - 45 % MCV 90.2 80 - 100 FL MCH 29.7 26 - 34 PG MCHC 32.9 32.0 - 36.0 G/DL RDW 16.7 (H) 11 - 15 % Platelet Count 388 150 - 400 K/UL MPV 8.7 7 - 11 FL POC GLUCOSE Collection Time: 08/19/18 5:22 PM # # Low-High Glucose, POC 186 (H) 70 - 100 MG/DL POC GLUCOSE Collection Time: 08/19/18 8:21 PM # # Low-High Glucose, POC 116 (H) 70 - 100 MG/DL POC GLUCOSE Collection Time: 08/19/18 9:46 PM # # Low-High Glucose, POC 143 (H) 70 - 100 MG/DL CBC Collection Time: 08/19/18 9:50 PM # # Low-High White Blood Cells 16.5 (H) 4.5 - 11.0 K/UL RBC 2.57 (L) 4.0 - 5.0 M/UL Hemoglobin 7.6 (L) 12.0 - 15.0 GM/DL Hematocrit 22.2 (L) 36 - 45 % MCV 86.6 80 - 100 FL MCH 29.4 26 - 34 PG MCHC 34.0 32.0 - 36.0 G/DL RDW 17.0 (H) 11 - 15 % Platelet Count 404 (H) 150 - 400 K/UL MPV 8.6 7 - 11 FL COMPREHENSIVE METABOLIC PANEL Collection Time: 08/20/18 3:24 AM # # Low-High Sodium 133 (L) 137 - 147 MMOL/L Potassium 5.7 (H) 3.5 - 5.1 MMOL/L Chloride 103 98 - 110 MMOL/L Glucose 157 (H) 70 - 100 MG/DL Blood Urea Nitrogen 18 7 - 25 MG/DL Creatinine 0.78 0.4 - 1.00 MG/DL Calcium 8.5 8.5 - 10.6 MG/DL Total Protein 5.4 (L) 6.0 - 8.0 G/DL Total Bilirubin 0.3 0.3 - 1.2 MG/DL Albumin 2.7 (L) 3.5 - 5.0 G/DL Alk Phosphatase 71 25 - 110 U/L AST (SGOT) 22 7 - 40 U/L CO2 25 21 - 30 MMOL/L ALT (SGPT) 10 7 - 56 U/L Anion Gap 5 3 - 12 eGFR Non >60 >60 mL/min eGFR >60 >60 mL/min CBC AND DIFF Collection Time: 08/20/18 3:24 AM # # Low-High White Blood Cells 18.0 (H) 4.5 - 11.0 K/UL RBC 2.67 (L) 4.0 - 5.0 M/UL Hemoglobin 7.8 (L) 12.0 - 15.0 GM/DL Hematocrit 23.4 (L) 36 - 45 % MCV 87.4 80 - 100 FL MCH 29.2 26 - 34 PG MCHC 33.4 32.0 - 36.0 G/DL RDW 17.1 (H) 11 - 15 % Platelet Count 425 (H) 150 - 400 K/UL MPV 8.6 7 - 11 FL Neutrophils 79 (H) 41 - 77 % Lymphocytes 12 (L) 24 - 44 % Monocytes 2 (L) 4 - 12 % Eosinophils 6 (H) 0 - 5 % Basophils 1 0 - 2 % Absolute Neutrophil Count 14.40 (H) 1.8 - 7.0 K/UL Absolute Lymph Count 2.10 1.0 - 4.8 K/UL Absolute Monocyte Count 0.40 0 - 0.80 K/UL Absolute Eosinophil Count 1.00 (H) 0 - 0.45 K/UL Absolute Basophil Count 0.10 0 - 0.20 K/UL POC GLUCOSE Collection Time: 08/20/18 7:25 AM # # Low-High Glucose, POC 136 (H) 70 - 100 MG/DL POC GLUCOSE Collection Time: 08/20/18 11:19 AM # # Low-High Glucose, POC 125 (H) 70 - 100 MG/DL BASIC METABOLIC PANEL Collection Time: 08/20/18 4:48 PM # # Low-High Sodium 136 (L) 137 - 147 MMOL/L Potassium 4.6 3.5 - 5.1 MMOL/L Chloride 102 98 - 110 MMOL/L CO2 29 21 - 30 MMOL/L Anion Gap 5 3 - 12 Glucose 97 70 - 100 MG/DL Blood Urea Nitrogen 19 7 - 25 MG/DL Creatinine 0.78 0.4 - 1.00 MG/DL Calcium 8.5 8.5 - 10.6 MG/DL eGFR Non >60 >60 mL/min eGFR >60 >60 mL/min POC GLUCOSE Collection Time: 08/20/18 4:50 PM # # Low-High Glucose, POC 100 70 - 100 MG/DL POC GLUCOSE Collection Time: 08/20/18 8:32 PM # # Low-High Glucose, POC 279 (H) 70 - 100 MG/DL COMPREHENSIVE METABOLIC PANEL Collection Time: 08/21/18 4:22 AM # # Low-High Sodium 129 (L) 137 - 147 MMOL/L Potassium 4.9 3.5 - 5.1 MMOL/L Chloride 99 98 - 110 MMOL/L Glucose 229 (H) 70 - 100 MG/DL Blood Urea Nitrogen 20 7 - 25 MG/DL Creatinine 0.77 0.4 - 1.00 MG/DL Calcium 8.3 (L) 8.5 - 10.6 MG/DL Total Protein 5.0 (L) 6.0 - 8.0 G/DL Total Bilirubin 0.2 (L) 0.3 - 1.2 MG/DL Albumin 2.5 (L) 3.5 - 5.0 G/DL Alk Phosphatase 64 25 - 110 U/L AST (SGOT) 12 7 - 40 U/L CO2 25 21 - 30 MMOL/L ALT (SGPT) 6 (L) 7 - 56 U/L Anion Gap 5 3 - 12 eGFR Non >60 >60 mL/min eGFR >60 >60 mL/min CBC AND DIFF Collection Time: 08/21/18 4:52 AM # # Low-High White Blood Cells 21.3 (H) 4.5 - 11.0 K/UL RBC 2.03 (L) 4.0 - 5.0 M/UL Hemoglobin 6.0 (L) 12.0 - 15.0 GM/DL Hematocrit 18.4 (L) 36 - 45 % MCV 90.7 80 - 100 FL MCH 29.5 26 - 34 PG MCHC 32.6 32.0 - 36.0 G/DL RDW 18.1 (H) 11 - 15 % Platelet Count 544 (H) 150 - 400 K/UL MPV 7.9 7 - 11 FL Neutrophils 86 (H) 41 - 77 % Lymphocytes 7 (L) 24 - 44 % Monocytes 2 (L) 4 - 12 % Eosinophils 3 0 - 5 % Basophils 2 0 - 2 % Absolute Neutrophil Count 18.30 (H) 1.8 - 7.0 K/UL Absolute Lymph Count 1.40 1.0 - 4.8 K/UL Absolute Monocyte Count 0.50 0 - 0.80 K/UL Absolute Eosinophil Count 0.60 (H) 0 - 0.45 K/UL Absolute Basophil Count 0.40 (H) 0 - 0.20 K/UL TYPE & CROSSMATCH Collection Time: 08/21/18 5:45 AM # # Low-High Units Ordered 1 Crossmatch Expires 08/24/2018 Record Check FOUND ABO/RH(D) A NEG Antibody Screen NEG Electronic Crossmatch YES Unit Number [id number] Blood Component Type RBC,ADSOL,LEUKO REDUCED Unit Division 0 Status OF Unit ISSUED Transfusion Status OK TO TRANSFUSE Crossmatch Result COMPATIBLE,ELECTRONIC POC GLUCOSE Collection Time: 08/21/18 7:20 AM # # Low-High Glucose, POC 275 (H) 70 - 100 MG/DL CBC Collection Time: 08/21/18 10:19 AM # # Low-High White Blood Cells 27.0 (H) 4.5 - 11.0 K/UL RBC 2.63 (L) 4.0 - 5.0 M/UL Hemoglobin 7.8 (L) 12.0 - 15.0 GM/DL Hematocrit 23.4 (L) 36 - 45 % MCV 89.0 80 - 100 FL MCH 29.6 26 - 34 PG MCHC 33.3 32.0 - 36.0 G/DL RDW 16.5 (H) 11 - 15 % Platelet Count 655 (H) 150 - 400 K/UL MPV 8.0 7 - 11 FL Imaging Studies Recent imaging reviewed. Notable for: CT angiogram of the abdominal aorta with bilateral runoff without and with contrast performed 08/09/2018 with redemonstration of left ventricular mass and completed motion of the left femoral. Also complete occlusion of the right popliteal with collateral reconstitution at the trifurcation vessels which are poorly opacified. Patchy wedge-shaped hypodensities throughout the spleen and left kidney consistent with known splenic and renal emboli. Also increase in size of the fatcontaining umbilical hernia and improvement in diffuse body wall edema. There is moderate luminal narrowing of the infrarenal abdominal aorta without aneurysm. There is an enlarged likely fibroid uterus unchanged from previous exam. There is a small right lung base nodule unchanged from prior exam. PATRIA 08/15/18 w/All apical left ventricular segments appear hypokinetic. Overall left ventricular systolic function is moderately impaired. The estimated left ventricular ejection fraction is 35%. The left ventricle appears mildly enlarged. Right ventricular contractility appears normal. Moderate left atrial enlargement. Mild right atrial enlargement. Cardiac valve structures are unremarkable. Mild tricuspid valve regurgitation is noted by Doppler exam. No valvular vegetations are noted. No perivalvular abscesses noted. No pericardial effusion is seen. A large, mobile left ventricular apical thrombus is noted which measures approximately 2.3 x 2.9 cm in dimensions. A patent foramen ovale is noted by color flow Doppler exam. Microbiological Studies Recent microbiology reviewed. Notable for: Blood culture collected 04/11/2018 negative Blood culture collected 04/11/2018 negative Urine culture collected 04/11/2018 negative MRSA screen 08/09/2018 negative Perirectal VRE swab collected 08/09/2018 negative Blood culture collected 08/09/2018 from the left wrist no growth Blood culture collected 08/10/2018 no growth at 4 days Pathology ThinPrep cytology performed 04/14/2018 low risk HPV Endometrial biopsy performed 04/14/2018 demonstrated minute fragments of benign endometrial epithelium and endocervical glandular mucosa with no evidence of hyperplasia, dysplasia, or malignancy. Discharge Planning/Barriers to Discharge Uninsured, so follow-up may be difficult Future Appointments Date Time Provider Department Center 09/18/2018 1:30 PM Ravi Torres MD [facility] Daily Rounding Checklist Line necessity Fernández necessity Telemetry necessity PT/OT necessity DME needs evaluated and supplied Diet at highest level IV --> PO medications Teaching needs Pharmacy needs Wound care needs Planned D/C location (Home/LTAC/SNF/Rehab/Other) Chau Gomez MD [phone] * Ravi Torres MD - 08/20/2018 2:48 PM CDT Patient desires to follow up with [facility] after discharge. Follow up appointment in 4 weeks requested. Ravi Torres MD [facility] PGY-4 pgr [phone] * Chau Gomez MD - 08/20/2018 11:29 AM CDT Progress Note - Internal Medicine Brief Clinical Summary 48 y.o.female(PMHx:Polysubstance abuse;DMII;LV thrombus) presented on 08/09/2018 in transfer w/bilateral body pain --> DKA. Multiple emboli (spleen/kidney/L femoral artery). Underewent emergency thrombectomy. PATRIA 08/14/18. GPC bacteremia. Consultants - Cardiology and Vascular Surgery. Assessment (differential diagnosis) | Status Acute blood loss anemia (vaginal bleeding due to menses) | Ongoing, but remains hemodynamically stable. This hospitalization, has required multiple blood transfusions. Vaginal bleeding (uterine fibroids) | Ongoing, but improving. Last admission, was seen by Gynecology. Endometrial carcinoma/malignancy was excluded at that time. Has been recommended that she take medroxyprogesterone, but she refuses, citing a concern that it makes her bleed rather than prevent bleeding. Gynecology has been in contact with IR regarding uterine artery embolization procedure, and she now agrees. Depo-Provera administered 08/16/18 and on progestin oral. Uterine artery embolization 08/18/18. Left ventricular thrombus (stasis v heart failure) | Ongoing. Complicated by distal emobolization and infarction of multiple organs. Originally diagnosed at [facility] in [place], [place]. She was diagnosed with an LV thrombus and placed on anticoagulation at the beginning of 2018. Non-adherence to anticoagulation. Verified on PATRIA done 08/14/18 (results below), and no perivalvular abscesses noted. Currently on AC with enoxaparin, and risk:benefit discussions have highlighted need for AC in spite of ongoing vaginal bleeding, which developed at onset of menses. Bilateral lower extremity ischemia (embolization from LV thrombus) | Resolved. S /P Left common femoral, profunda and superficial femoral artery thrombectomy followed by closure with bovine pericardial patch. She underwent thrombectomy of the right SFA, popliteal artery, anterior tibial artery, posterior tibial artery and peroneal artery. Attempted thrombectomy was performed at the right posterior and anterior tibial arteries, however, there were findings of chronic arterial occlusion Vascular Surgery planning to place Provena wound VAC at the time of discharge. They note that the battery will run out approximately 7 days after started and at that time she may remove the dressing and leave the space open to air. ASA on hold. Polymicrobial bacteremia | Clinically improving. Infectious Diseases contacted the hospital in [facility] to request records demonstrating staph aureus, enterococcus (later clarified and speciated to beta-hemolytic strep was the final change), coag negative staph. Currently on daptomycin, with plans for prolonged course. CM working on arranging dalvabancin as an outpatient - 2 doses 2 weeks apart. If not possible, will need to stay inpatient for entire course (uninsured). Splenic artery emboli (embolization from LV thrombus) | Noted on CT angiogram performed at the time of presentation. Asymptomatic. Renal artery emboli (embolization from LV thrombus) | Noted on CT angiogram performed at the time of presentation. Asymptomatic. Chronic systolic heart failure (non-ischemic cardiomyopathy) | Compensated, and improved since 04/11/18. 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 Currently on carvedilol , lisinopril, and furosemide. Echocardiogram 08/10/18 with improvement from ( results below) ~15% to 30%. PATRIA (results below) re-demonstrating clot. DMII (insulin resistance) | Improving control, and suspicion for non-adherence at home and lack of access to affordable alternatives. At presentation, was in DKA. Reports that at home she was on detemir and aspart, but that she had not been prescribed enough. She notes cost-effective options at the [facility] in [place], [place] - called and they in fact have low-cost detemir and aspart. *Spoke with [facility] [phone] and they have inexpensive medications available: Insulin detemir box of 5 pens $15 Insulin aspart box of 5 pens $8 (She has stated she can afford this). Titration ongoing. Chronic illness/Moderate non-severe malnutrition | Weight loss 10% x 6 months w/ mild loss of muscle mass and energy intake: < 75% of estimated energy requirement for 1 month or more Pressure wound on coccyx, stage 2 | Not POA. Wound care consulting. Polysubstance abuse (addiction versus education deficit ) | Pre- contemplative stage of cessation. Endorsed smoking methamphetamine at the time of presentation. UDS at the time of admission was positive for opiates, amphetamines, and methamphetamines at the outside hospital. Denies ongoing IV drug use. Status post left BKA | Well-healed and at her baseline functional level. She uses wheelchair to live in her home independently and gets around without a device. Pulmonary nodule | Stable. Noted on CT angiogram performed 08/09/2018 and described as unchanged as compared to prior exam. Since she is a high risk patient requires CT follow-up in 1 year. Iron deficiency anemia (vaginal blood loss) | Ongoing. On iron replacement with ferrous sulfate 325mg PO BID with meals. Iron studies obtained 04/11/18 with severe iron deficiency. Polysubstance abuse (addiction v educational deficit) | No current clinical evidence of withdrawal. At risk for DVT (hospitalization/immobilization) | On enoxaparin for AC. 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 S/p Uterine artery embolization 08/18, patient reports bleeding improved. Pain controlled, with po oxy Continue to evaluate alternatives to enoxaparin (given poor adherence to warfarin in the past) and possible NOAC - by report, PCP working on finding financial assistance program for apixapban and this will need to be verified before DC Continue oral pain control regimen, with oxycodone 2.5-5mg Q4h PRN Cont insulin glargine to 20U BID Rooke boot to RLE CM to look in to dalbavancin 1500mg Q2 weeks for 4 weeks Hb 7.8, monitor hb Subjective Patient reports doing fine , she is anxious to go home. Reports intermittent abdominal cramps, controlled with po oxySays he bleeding improved . She had only 1 pad there was not much blood. . No fever, no chills, no nausea. No lightheadedness, but has been largely bedbound. Review of Systems hb CONS: No subjective fever, no chills. CVS: No palpitations. No chest pain. RESP: No dyspnea. No cough. GI: No abdominal pain. No diarrhea or constipation. No nausea, no vomiting. : Vaginal bleeding persists. Objective Vital Signs Temp: [36.6 C (97.9 F)-37.4 C (99.3 F)] Pulse: [69-82] Respirations: [12 PER MINUTE-21 PER MINUTE] SpO2 Pulse: [69-89] SpO2: [98 %-100 %] BP: (81-134)/(55-71) I/Os from Yesterday's Shift 08/19 0701 - 08/20 0700 In: 410 [I.V.:60] Out: 4500 [Urine:4500] Physical Examination GEN: Alert and oriented x3 (person/place/time), NAD. CVS: S1/S2 audible, no murmurs audible. Appears and feels warm and well- perfused. HEENT: Poor dentition. RESP: Lungs clear to ascultation. No wheezes, rhonchi, nor crackles. GI: Abdomen soft. Non-tender to palpation. SKIN: Warm. Dry. L groin with vac in place. MSK: R leg in boot. L leg BKA. Lab Studies Recent labs reviewed. Notable for: Hemoglobin 6.1 WBC 14 Platelets 201 INR 0.9 Fibrinogen 5.68 Sodium 131 Potassium 131 Chloride 101 Bicarbonate 26 BUN 17 Creatinine 0.85 Imaging Studies Recent imaging reviewed. Notable for: CT angiogram of the abdominal aorta with bilateral runoff without and with contrast performed 08/09/2018 with redemonstration of left ventricular mass and completed motion of the left femoral. Also complete occlusion of the right popliteal with collateral reconstitution at the trifurcation vessels which are poorly opacified. Patchy wedge-shaped hypodensities throughout the spleen and left kidney consistent with known splenic and renal emboli. Also increase in size of the fatcontaining umbilical hernia and improvement in diffuse body wall edema. There is moderate luminal narrowing of the infrarenal abdominal aorta without aneurysm. There is an enlarged likely fibroid uterus unchanged from previous exam. There is a small right lung base nodule unchanged from prior exam. PATRIA 08/15/18 w/All apical left ventricular segments appear hypokinetic. Overall left ventricular systolic function is moderately impaired. The estimated left ventricular ejection fraction is 35%. The left ventricle appears mildly enlarged. Right ventricular contractility appears normal. Moderate left atrial enlargement. Mild right atrial enlargement. Cardiac valve structures are unremarkable. Mild tricuspid valve regurgitation is noted by Doppler exam. No valvular vegetations are noted. No perivalvular abscesses noted. No pericardial effusion is seen. A large, mobile left ventricular apical thrombus is noted which measures approximately 2.3 x 2.9 cm in dimensions. A patent foramen ovale is noted by color flow Doppler exam. Microbiological Studies Recent microbiology reviewed. Notable for: Blood culture collected 04/11/2018 negative Blood culture collected 04/11/2018 negative Urine culture collected 04/11/2018 negative MRSA screen 08/09/2018 negative Perirectal VRE swab collected 08/09/2018 negative Blood culture collected 08/09/2018 from the left wrist no growth Blood culture collected 08/10/2018 no growth at 4 days Pathology ThinPrep cytology performed 04/14/2018 low risk HPV Endometrial biopsy performed 04/14/2018 demonstrated minute fragments of benign endometrial epithelium and endocervical glandular mucosa with no evidence of hyperplasia, dysplasia, or malignancy. Discharge Planning/Barriers to Discharge Uninsured, so follow-up may be difficult No future appointments. Daily Rounding Checklist Line necessity Fernández necessity Telemetry necessity PT/OT necessity DME needs evaluated and supplied Diet at highest level IV --> PO medications Teaching needs Pharmacy needs Wound care needs Planned D/C location (Home/LTAC/SNF/Rehab/Other) Chau Gomez MD [id number] * Shashank Jarrell - 08/20/2018 10:49 AM CDT 0715 - RN completed bedside handoff with Jacinta VILLEGAS. RN notes no undocumented abnormalities. 1045 - RN paged Dr. Gomez and received return contact. RN updated Dr. Gomez regarding increase in patient weight and crackles in L lung base. Dr. Gomez confirmed with RN that lasix was given and requested RN continue to monitor and update. 1600 - RN, Stephanie DONIS, and Kimber RN were unable to get and oral or axillary temperature. Kimber RN took rectal temp. 1700 - RN notes that multiple times during the day patient has attempted to exceed 30g of carbs during morning and afternoon snack. * Eda Man MD - 08/20/2018 2:49 AM CDT Formatting of this note may be different from the original. Gynecology Progress Note SUBJECTIVE: This morning Ms. Baron says her bleeding is lightened and improved. She has had no large clots overnight. She is having some cramping abdominal pain but is comfortable overall. She is anxious to get home. Denies CP, SOB, fever or chills. OBJECTIVE: Patient Vitals for the past 24 hrs: BP Temp Pulse SpO2 Weight 08/20/18 0500 - - 77 - - 08/20/18 0410 114/63 37.4 C (99.3 F) 75 99 % - 08/20/18 0034 - - 71 - - 08/20/18 0033 134/62 36.8 C (98.2 F) 71 100 % - 08/19/18 2300 - - 74 99 % - 08/19/18 2200 - - 82 100 % - 08/19/18 2100 - - 75 100 % - 08/19/18 2000 97/55 36.6 C (97.9 F) 75 98 % - 08/19/18 1600 - 36.9 C (98.4 F) - - - 08/19/18 1306 (!) 81/71 - 69 100 % - 08/19/18 1200 94/69 - 79 100 % - 08/19/18 1100 - - 67 100 % - 08/19/18 1045 (!) 89/46 36.4 C (97.5 F) 68 100 % - 08/19/18 1030 92/48 36.6 C (97.9 F) 69 100 % - 08/19/18 0900 - - - - 74.4 kg (164 lb 0.4 oz) 08/19/18 0800 95/48 36.7 C (98 F) 72 - - Physical Exam: General: No acute distress. Lungs: breathing unlabored Abdomen: Soft, appropriately tender to palpation. Non-distended. Extremities: Left BKA, r leg in brace Lab Review: 24-hour labs: Results for orders placed or performed during the hospital encounter of (from the past 24 hour(s)) POC GLUCOSE Collection Time: 08/19/18 7:28 AM Result Value Ref Range Glucose, POC 341 (H) 70 - 100 MG/DL POC GLUCOSE Collection Time: 08/19/18 11:47 AM Result Value Ref Range Glucose, POC 140 (H) 70 - 100 MG/DL CBC Collection Time: 08/19/18 3:20 PM Result Value Ref Range White Blood Cells 20.9 (H) 4.5 - 11.0 K/UL RBC 2.53 (L) 4.0 - 5.0 M/UL Hemoglobin 7.5 (L) 12.0 - 15.0 GM/DL Hematocrit 22.9 (L) 36 - 45 % MCV 90.2 80 - 100 FL MCH 29.7 26 - 34 PG MCHC 32.9 32.0 - 36.0 G/DL RDW 16.7 (H) 11 - 15 % Platelet Count 388 150 - 400 K/UL MPV 8.7 7 - 11 FL POC GLUCOSE Collection Time: 08/19/18 5:22 PM Result Value Ref Range Glucose, POC 186 (H) 70 - 100 MG/DL POC GLUCOSE Collection Time: 08/19/18 8:21 PM Result Value Ref Range Glucose, POC 116 (H) 70 - 100 MG/DL POC GLUCOSE Collection Time: 08/19/18 9:46 PM Result Value Ref Range Glucose, POC 143 (H) 70 - 100 MG/DL CBC Collection Time: 08/19/18 9:50 PM Result Value Ref Range White Blood Cells 16.5 (H) 4.5 - 11.0 K/UL RBC 2.57 (L) 4.0 - 5.0 M/UL Hemoglobin 7.6 (L) 12.0 - 15.0 GM/DL Hematocrit 22.2 (L) 36 - 45 % MCV 86.6 80 - 100 FL MCH 29.4 26 - 34 PG MCHC 34.0 32.0 - 36.0 G/DL RDW 17.0 (H) 11 - 15 % Platelet Count 404 (H) 150 - 400 K/UL MPV 8.6 7 - 11 FL COMPREHENSIVE METABOLIC PANEL Collection Time: 08/20/18 3:24 AM Result Value Ref Range Sodium 133 (L) 137 - 147 MMOL/L Potassium 5.7 (H) 3.5 - 5.1 MMOL/L Chloride 103 98 - 110 MMOL/L Glucose 157 (H) 70 - 100 MG/DL Blood Urea Nitrogen 18 7 - 25 MG/DL Creatinine 0.78 0.4 - 1.00 MG/DL Calcium 8.5 8.5 - 10.6 MG/DL Total Protein 5.4 (L) 6.0 - 8.0 G/DL Total Bilirubin 0.3 0.3 - 1.2 MG/DL Albumin 2.7 (L) 3.5 - 5.0 G/DL Alk Phosphatase 71 25 - 110 U/L AST (SGOT) 22 7 - 40 U/L CO2 25 21 - 30 MMOL/L ALT (SGPT) 10 7 - 56 U/L Anion Gap 5 3 - 12 eGFR Non >60 >60 mL/min eGFR >60 >60 mL/min CBC AND DIFF Collection Time: 08/20/18 3:24 AM Result Value Ref Range White Blood Cells 18.0 (H) 4.5 - 11.0 K/UL RBC 2.67 (L) 4.0 - 5.0 M/UL Hemoglobin 7.8 (L) 12.0 - 15.0 GM/DL Hematocrit 23.4 (L) 36 - 45 % MCV 87.4 80 - 100 FL MCH 29.2 26 - 34 PG MCHC 33.4 32.0 - 36.0 G/DL RDW 17.1 (H) 11 - 15 % Platelet Count 425 (H) 150 - 400 K/UL MPV 8.6 7 - 11 FL Intake/Output Summary (Last 24 hours) at 08/20/18 0638 Last data filed at 08/20/18 0300 Gross per 24 hour Intake 410 ml Output 4500 ml Net -4090 ml Point of Care Testing: (Last 24 hours): Glucose: (!) 157 (08/20/18 0324) POC Glucose (Download): (!) 143 (08/19/18 2603) ASSESSMENT: Active Problems: Mass of heart Acute systolic CHF (congestive heart failure) (HCC) LV (left ventricular) mural thrombus without ID Polysubstance abuse (HCC) DM (diabetes mellitus) (HCC) Bacteremia due to Gram-positive bacteria Moderate malnutrition (HCC) 48yo admitted for multiple arterial thrombi and bacteremia consult for AUB requiring blood transfusions. Pt on therapeutic lovenox. Co-morbids- anemia, DM, polysubstance use, CHF PLAN: 1. Uterine artery embolization completed on Tuesday, patient reports bleeding has improved. 2. Depo Lupron 08/16. This is an injection that she will need every 3 months. It may cause menopause symptoms. If vasomotor symptoms develop or become bothersome to patient venlafaxine 75 mg daily 3. May continue provera while inpatient 4. Continue pad counts and notify workforce analyst if EBL over 24 hour periods increases to concerning amount. 5. Gynecology will sign off for now. We are happy to see patient again if necessary. Please offer patient to follow with us or her primary tool and cutter grinder at discharge. Thank you for the opportunity to participate in the care of this patient. D/w Guillermo Love MD #[id number] Obstetrics and Gynecology PGY1 Please page the Gynecology pager at [phone] with any questions or concerns. Thank you. Associated attestation - Pauline Li MD - 08/20/2018 6:52 PM CDT I personally saw and evaluated the patient. I have reviewed and agree with the impressions and care plan as documented. Pauline Li MD * Chau Gomez MD - 08/19/2018 12:44 PM CDT Progress Note - Internal Medicine Brief Clinical Summary 48 y.o.female(PMHx:Polysubstance abuse;DMII;LV thrombus) presented on 08/09/2018 in transfer w/bilateral body pain --> DKA. Multiple emboli (spleen/kidney/L femoral artery). Underewent emergency thrombectomy. PATRIA 08/14/18. GPC bacteremia. Consultants - Cardiology and Vascular Surgery. Assessment (differential diagnosis) | Status Acute blood loss anemia (vaginal bleeding due to menses) | Ongoing, but remains hemodynamically stable. This hospitalization, has required multiple blood transfusions. Vaginal bleeding (uterine fibroids) | Ongoing, but improving. Last admission, was seen by Gynecology. Endometrial carcinoma/malignancy was excluded at that time. Has been recommended that she take medroxyprogesterone, but she refuses, citing a concern that it makes her bleed rather than prevent bleeding. Gynecology has been in contact with IR regarding uterine artery embolization procedure, and she now agrees. Depo-Provera administered 08/16/18 and on progestin oral. Uterine artery embolization 08/18/18. Left ventricular thrombus (stasis v heart failure) | Ongoing. Complicated by distal emobolization and infarction of multiple organs. Originally diagnosed at [facility] in [place], [place]. She was diagnosed with an LV thrombus and placed on anticoagulation at the beginning of 2018. Non-adherence to anticoagulation. Verified on PATRIA done 08/14/18 (results below), and no perivalvular abscesses noted. Currently on AC with enoxaparin, and risk:benefit discussions have highlighted need for AC in spite of ongoing vaginal bleeding, which developed at onset of menses. Bilateral lower extremity ischemia (embolization from LV thrombus) | Resolved. S /P Left common femoral, profunda and superficial femoral artery thrombectomy followed by closure with bovine pericardial patch. She underwent thrombectomy of the right SFA, popliteal artery, anterior tibial artery, posterior tibial artery and peroneal artery. Attempted thrombectomy was performed at the right posterior and anterior tibial arteries, however, there were findings of chronic arterial occlusion Vascular Surgery planning to place Provena wound VAC at the time of discharge. They note that the battery will run out approximately 7 days after started and at that time she may remove the dressing and leave the space open to air. ASA on hold. Polymicrobial bacteremia | Clinically improving. Infectious Diseases contacted the hospital in [facility] to request records demonstrating staph aureus, enterococcus (later clarified and speciated to beta-hemolytic strep was the final change), coag negative staph. Currently on daptomycin, with plans for prolonged course. CM working on arranging dalvabancin as an outpatient - 2 doses 2 weeks apart. If not possible, will need to stay inpatient for entire course (uninsured). Splenic artery emboli (embolization from LV thrombus) | Noted on CT angiogram performed at the time of presentation. Asymptomatic. Renal artery emboli (embolization from LV thrombus) | Noted on CT angiogram performed at the time of presentation. Asymptomatic. Chronic systolic heart failure (non-ischemic cardiomyopathy) | Compensated, and improved since 04/11/18. 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 Currently on carvedilol , lisinopril, and furosemide. Echocardiogram 08/10/18 with improvement from ( results below) ~15% to 30%. PATRIA (results below) re-demonstrating clot. DMII (insulin resistance) | Improving control, and suspicion for non-adherence at home and lack of access to affordable alternatives. At presentation, was in DKA. Reports that at home she was on detemir and aspart, but that she had not been prescribed enough. She notes cost-effective options at the [facility] in [place], [place] - called and they in fact have low-cost detemir and aspart. *Spoke with [facility] [phone] and they have inexpensive medications available: Insulin detemir box of 5 pens $15 Insulin aspart box of 5 pens $8 (She has stated she can afford this). Titration ongoing. Chronic illness/Moderate non-severe malnutrition | Weight loss 10% x 6 months w/ mild loss of muscle mass and energy intake: < 75% of estimated energy requirement for 1 month or more Pressure wound on coccyx, stage 2 | Not POA. Wound care consulting. Polysubstance abuse (addiction versus education deficit ) | Pre- contemplative stage of cessation. Endorsed smoking methamphetamine at the time of presentation. UDS at the time of admission was positive for opiates, amphetamines, and methamphetamines at the outside hospital. Denies ongoing IV drug use. Status post left BKA | Well-healed and at her baseline functional level. She uses wheelchair to live in her home independently and gets around without a device. Pulmonary nodule | Stable. Noted on CT angiogram performed 08/09/2018 and described as unchanged as compared to prior exam. Since she is a high risk patient requires CT follow-up in 1 year. Iron deficiency anemia (vaginal blood loss) | Ongoing. On iron replacement with ferrous sulfate 325mg PO BID with meals. Iron studies obtained 04/11/18 with severe iron deficiency. Polysubstance abuse (addiction v educational deficit) | No current clinical evidence of withdrawal. At risk for DVT (hospitalization/immobilization) | On enoxaparin for AC. Plan Continue to hold carvedilol with marginal BPs and ongoing blood loss Continue to hold ACEI with marginal BPs and ongoing blood loss Continue to hold furosemide given euvolemia Continue current IV antibiotics: Daptomycin Continue enoxaparin 70mg BID for anticoagulation, weighing risk:benefit of vaginal bleeding which she states is her menstrual cycle or definitive control with UAE. S/p Uterine artery embolization 08/18, patient reports bleeding improved. Pain controlled, d/c fentanyl manager call Continue to evaluate alternatives to enoxaparin (given poor adherence to warfarin in the past) and possible NOAC - by report, PCP working on finding financial assistance program for apixapban and this will need to be verified before DC Continue oral pain control regimen, with oxycodone 2.5-5mg Q4h PRN Cont insulin glargine to 20U BID Rooke boot to RLE CM to look in to dalbavancin 1500mg Q2 weeks for 4 weeks Hb 6.3, transfuse 1 prbc, monitor hb Subjective Patient reports doing fine , she wants to go home. 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 She feel she can manage Her pain with po oxy. Says he bleeding improved . She had only 1 pad there was not much blood. . No fever, no chills, no nausea. No lightheadedness, but has been largely bedbound. Review of Systems hb CONS: No subjective fever, no chills. CVS: No palpitations. No chest pain. RESP: No dyspnea. No cough. GI: No abdominal pain. No diarrhea or constipation. No nausea, no vomiting. : Vaginal bleeding persists. Objective Vital Signs Temp: [36.4 C (97.5 F)-37.2 C (99 F)] Pulse: [61-87] Respirations: [6 PER MINUTE-24 PER MINUTE] SpO2 Pulse: [61-91] SpO2: [95 %-100 %] BP: (83-113)/(43-73) I/Os from Yesterday's Shift 08/18 0701 - 08/19 0700 In: 300 Out: 1305 [Urine:1100] Physical Examination GEN: Alert and oriented x3 (person/place/time), NAD. CVS: S1/S2 audible, no murmurs audible. Appears and feels warm and well- perfused. HEENT: Poor dentition. RESP: Lungs clear to ascultation. No wheezes, rhonchi, nor crackles. GI: Abdomen soft. Non-tender to palpation. SKIN: Warm. Dry. L groin with vac in place. MSK: R leg in boot. L leg BKA. Lab Studies Recent labs reviewed. Notable for: Hemoglobin 6.1 WBC 14 Platelets 201 INR 0.9 Fibrinogen 5.68 Sodium 131 Potassium 131 Chloride 101 Bicarbonate 26 BUN 17 Creatinine 0.85 Imaging Studies Recent imaging reviewed. Notable for: CT angiogram of the abdominal aorta with bilateral runoff without and with contrast performed 08/09/2018 with redemonstration of left ventricular mass and completed motion of the left femoral. Also complete occlusion of the right popliteal with collateral reconstitution at the trifurcation vessels which are poorly opacified. Patchy wedge-shaped hypodensities throughout the spleen and left kidney consistent with known splenic and renal emboli. Also increase in size of the fatcontaining umbilical hernia and improvement in diffuse body wall edema. There is moderate luminal narrowing of the infrarenal abdominal aorta without aneurysm. There is an enlarged likely fibroid uterus unchanged from previous exam. There is a small right lung base nodule unchanged from prior exam. PATRIA 08/15/18 w/All apical left ventricular segments appear hypokinetic. Overall left ventricular systolic function is moderately impaired. The estimated left ventricular ejection fraction is 35%. The left ventricle appears mildly enlarged. Right ventricular contractility appears normal. Moderate left atrial enlargement. Mild right atrial enlargement. Cardiac valve structures are unremarkable. Mild tricuspid valve regurgitation is noted by Doppler exam. No valvular vegetations are noted. No perivalvular abscesses noted. No pericardial effusion is seen. A large, mobile left ventricular apical thrombus is noted which measures approximately 2.3 x 2.9 cm in dimensions. A patent foramen ovale is noted by color flow Doppler exam. Microbiological Studies Recent microbiology reviewed. Notable for: Blood culture collected 04/11/2018 negative Blood culture collected 04/11/2018 negative Urine culture collected 04/11/2018 negative MRSA screen 08/09/2018 negative Perirectal VRE swab collected 08/09/2018 negative Blood culture collected 08/09/2018 from the left wrist no growth Blood culture collected 08/10/2018 no growth at 4 days Pathology ThinPrep cytology performed 04/14/2018 low risk HPV Endometrial biopsy performed 04/14/2018 demonstrated minute fragments of benign endometrial epithelium and endocervical glandular mucosa with no evidence of hyperplasia, dysplasia, or malignancy. Discharge Planning/Barriers to Discharge Uninsured, so follow-up may be difficult No future appointments. Daily Rounding Checklist Line necessity Fernández necessity Telemetry necessity PT/OT necessity DME needs evaluated and supplied Diet at highest level IV --> PO medications Teaching needs Pharmacy needs Wound care needs Planned D/C location (Home/LTAC/SNF/Rehab/Other) Chau Gomez MD [id number] * Eda Man MD - 08/19/2018 7:34 AM CDT Formatting of this note may be different from the original. Gynecology Progress Note SUBJECTIVE: This morning Ms. Baron says her bleeding is improved. She has had no large clots overnight. She is having some cramping abdominal pain but is comfortable overall. She is anxious to get home. Denies CP, SOB, fever or chills. OBJECTIVE: Patient Vitals for the past 24 hrs: BP Temp Pulse SpO2 Weight 08/19/18 0000 (!) 83/43 - 73 100 % - 08/18/18 2300 100/61 - 76 - - 08/18/18 2200 93/59 - 82 - - 08/18/18 2100 (!) 88/68 37.2 C (99 F) 79 - - 08/18/181999 91/62 - 87 - - 08/18/18 1945 92/47 - 72 98 % - 08/18/18 1930 98/49 - 76 - - 08/18/18 1915 104/62 - 82 - - 08/18/18 1900 109/62 - 75 98 % - 08/18/18 1854 108/64 - 68 100 % - 08/18/18 1849 - - - - 74.1 kg (163 lb 5.8 oz) 08/18/18 1840 112/55 - 71 98 % - 08/18/18 1815 - - 71 99 % - 08/18/18 1800 103/56 - 69 100 % - 08/18/18 1745 98/62 - 63 100 % - 08/18/18 1740 104/57 - 66 99 % - 08/18/18 1735 112/56 - 70 98 % - 08/18/18 1730 108/60 - 64 98 % - 08/18/18 1725 109/59 - 66 98 % - 08/18/18 1720 110/59 - 68 97 % - 08/18/18 1715 102/73 - 69 96 % - 08/18/18 1710 98/49 - 64 96 % - 08/18/18 1705 97/57 - 66 96 % - 08/18/18 1700 97/55 - 70 95 % - 08/18/18 1655 94/56 - 61 99 % - 08/18/18 1650 101/61 - 67 99 % - 08/18/18 1645 101/53 - 63 99 % - 18 1640 97/54 - 61 98 % - 08/18/18 1635 90/48 - 63 100 % - 08/18/18 1630 (!) 86/50 - 66 97 % - 09/21/18 1625 (!) 83/48 - 68 97 % - 08/18/18 1620 90/52 - 63 98 % - 08/18/18 1615 (!) 84/48 - 63 96 % - 08/18/18 1610 90/57 - 63 97 % - 08/18/18 1605 94/58 - 67 99 % - 08/18/18 1600 95/60 - 74 98 % - 08/18/18 1555 93/54 - 73 98 % - 08/18/18 1550 109/60 - 76 98 % - 08/18/18 1545 101/61 - 77 99 % - 08/18/18 1541 102/53 - 69 98 % - 08/18/18 1530 98/50 - 70 99 % - 08/18/18 1515 94/53 - 74 100 % - 08/18/18 1507 101/52 - 70 97 % - 08/18/18 1440 105/53 37.1 C (98.8 F) 73 99 % - 08/18/18 1416 105/45 36.8 C (98.3 F) 80 100 % - 08/18/18 1309 113/62 37.1 C (98.8 F) 79 100 % - 08/18/18 1224 102/61 37.1 C (98.8 F) 83 100 % - 08/18/18 1118 96/47 36.9 C (98.4 F) 76 99 % - 08/18/18 1056 100/55 37 C (98.6 F) 78 98 % - 08/18/18 0926 109/58 36.9 C (98.5 F) 78 99 % - Physical Exam: General: No acute distress. Lungs: breathing unlabored Abdomen: Soft, appropriately tender to palpation. Non-distended. Positive bowel sounds. Extremities: Left BKA, r leg in brace Lab Review: 24-hour labs: Results for orders placed or performed during the hospital encounter of (from the past 24 hour(s)) CBC Collection Time: 08/18/18 8:20 AM Result Value Ref Range White Blood Cells 15.2 (H) 4.5 - 11.0 K/UL RBC 2.34 (L) 4.0 - 5.0 M/UL Hemoglobin 6.7 (L) 12.0 - 15.0 GM/DL Hematocrit 20.4 (L) 36 - 45 % MCV 87.4 80 - 100 FL MCH 28.9 26 - 34 PG MCHC 33.0 32.0 - 36.0 G/DL RDW 19.0 (H) 11 - 15 % Platelet Count 201 150 - 400 K/UL MPV 8.6 7 - 11 FL POC GLUCOSE Collection Time: 08/18/18 8:37 AM Result Value Ref Range Glucose, POC 174 (H) 70 - 100 MG/DL POC GLUCOSE Collection Time: 08/18/18 12:24 PM Result Value Ref Range Glucose, POC 165 (H) 70 - 100 MG/DL CBC Collection Time: 08/18/18 8:30 PM Result Value Ref Range White Blood Cells 23.9 (H) 4.5 - 11.0 K/UL RBC 2.76 (L) 4.0 - 5.0 M/UL Hemoglobin 7.9 (L) 12.0 - 15.0 GM/DL Hematocrit 24.2 (L) 36 - 45 % MCV 87.9 80 - 100 FL MCH 28.5 26 - 34 PG MCHC 32.4 32.0 - 36.0 G/DL RDW 18.0 (H) 11 - 15 % Platelet Count 274 150 - 400 K/UL MPV 8.9 7 - 11 FL POC GLUCOSE Collection Time: 08/18/18 8:44 PM Result Value Ref Range Glucose, POC 266 (H) 70 - 100 MG/DL CBC Collection Time: 08/19/18 5:30 AM Result Value Ref Range White Blood Cells 20.5 (H) 4.5 - 11.0 K/UL RBC 2.25 (L) 4.0 - 5.0 M/UL Hemoglobin 6.5 (L) 12.0 - 15.0 GM/DL Hematocrit 19.2 (L) 36 - 45 % MCV 85.3 80 - 100 FL MCH 28.8 26 - 34 PG MCHC 33.8 32.0 - 36.0 G/DL RDW 17.6 (H) 11 - 15 % Platelet Count 286 150 - 400 K/UL MPV 9.0 7 - 11 FL COMPREHENSIVE METABOLIC PANEL Collection Time: 08/19/18 5:30 AM Result Value Ref Range Sodium 129 (L) 137 - 147 MMOL/L Potassium 4.6 3.5 - 5.1 MMOL/L Chloride 100 98 - 110 MMOL/L Glucose 319 (H) 70 - 100 MG/DL Blood Urea Nitrogen 20 7 - 25 MG/DL Creatinine 0.88 0.4 - 1.00 MG/DL Calcium 7.8 (L) 8.5 - 10.6 MG/DL Total Protein 4.5 (L) 6.0 - 8.0 G/DL Total Bilirubin 0.2 (L) 0.3 - 1.2 MG/DL Albumin 2.3 (L) 3.5 - 5.0 G/DL Alk Phosphatase 64 25 - 110 U/L AST (SGOT) 11 7 - 40 U/L CO2 22 21 - 30 MMOL/L ALT (SGPT) <3 (L) 7 - 56 U/L Anion Gap 7 3 - 12 eGFR Non >60 >60 mL/min eGFR >60 >60 mL/min POC GLUCOSE Collection Time: 08/19/18 7:28 AM Result Value Ref Range Glucose, POC 341 (H) 70 - 100 MG/DL Intake/Output Summary (Last 24 hours) at 08/19/18 0734 Last data filed at 08/19/18 0000 Gross per 24 hour Intake 300 ml Output 1305 ml Net -1005 ml Point of Care Testing: (Last 24 hours): FSBS (Manual): (!) 266 (08/18/182043) Glucose: (!) 319 (08/19/1830) POC Glucose (Download): (!) 341 (08/19/18 0728) ASSESSMENT: Active Problems: Mass of heart Acute systolic CHF (congestive heart failure) (HCC) LV (left ventricular) mural thrombus without ID Polysubstance abuse (HCC) DM (diabetes mellitus) (HCC) Bacteremia due to Gram-positive bacteria Moderate malnutrition (HCC) 48yo admitted for multiple arterial thrombi and bacteremia consult for AUB requiring blood transfusions. Pt on therapeutic lovenox. Co-morbids- anemia, DM, polysubstance use, CHF PLAN: 1. Uterine artery embolization completed yesterday, patient reports bleeding has improved. 2. Depo Lupron 08/16. This is an injection that she will need every 3 months. It may cause menopause symptoms. If vasomotor symptoms develop or become bothersome to patient venlafaxine 75 mg daily 3. May continue provera while inpatient 4. Continue pad counts. EBL over past 24 hours 205. Am Hgb 6.5 5. Gynecology will continue to follow. 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 D/w Dr. Guillermo Stafford MD #[id number] Obstetrics and Gynecology PGY1 Please page the Gynecology pager at [phone] with any questions or concerns. Thank you. Associated attestation - Pauline Li MD - 08/20/2018 6:52 PM CDT I personally saw and evaluated the patient. I have reviewed and agree with the impressions and care plan as documented. Pauline Li MD * Ofe Stack RN - 08/18/2018 8:16 PM CDT 2 hour recovery finished.had pt palpate dressing site and educated on when to the notify the RN of potential issues. Pt verbalized understanding. jennifer villegas and this nurse log placed a pillow under the pts left side to relieve coccyx pressure. Dressing clean/dry/intact after this first big transition. Pt has eaten and is tolerating fluids well. No additional complaints or concerns at this time. Handed off to jennifer villegas. * Abad Mendoza RN - 08/18/2018 4:[address] Sim has been made aware of patient's hypotensive baseline and her most recent intraprocedural pressures. No new orders at this time. Will continue to monitor. * Abad Mendoza, NELLY - 08/18/2018 3:21 PM CDT Per Kim COOPER: patient will not need levaquin for procedure as she just received daptomycin on the floor. * Susana Guo - 08/18/2018 1:07 PM CDT PHYSICAL THERAPY PROGRESS NOTE MOBILITY: Mobility Progressive Mobility Level: Walk in hallway (wheelchair, not walk) Distance Walked (feet): 50 ft Level of Assistance: Assist X1 Assistive Device: Wheelchair Time Tolerated: 11-30 minutes Activity Limited By: Fatigue;Nausea SUBJECTIVE: Subjective Significant hospital events: PMHx: L BKA, polysubstance abuse, uncontrolled diabetes, left ventricular thrombus. Admitted from an OSH transfer with chief complaint of left-sided and right-sided pain and noticed to be in DKA, multiple emboli including splenic emboli, renal artery emboli, left femoral artery thrombus with complete occlusion. s/p left femoral thrombectomy and right popliteal and tibial thrombectomy on 08/09. Mental / Cognitive Status: Alert;Cooperative Persons Present: Nursing Staff Pain: Patient complains of pain;Patient does not rate pain Pain Location: Right;Leg Pain Interventions: Patient agrees to participate in therapy;Patient assisted into position of comfort;Elevation of extremity R LE Precautions: Elevate (Rooke boot on in bed) Ambulation Assist: Primary Wheelchair User;Independent Mobility at Household Level with Device Patient Owned Equipment: Manual Wheelchair Home Situation: Lives with Family Type of Home: House Entry Stairs: 1-2 Stairs In-Home Stairs: No Stairs BED MOBILITY/TRANSFERS: Bed Mobility/Transfers Bed Mobility: Supine to Sit: Modified Independent;Use of Rail Bed Mobility: Sit to Supine: Modified Independent;Use of Rail Transfer Type: Stand Pivot Transfer: Assistance Level: To/From;Bed;Wheelchair;Commode Transfer: Assistive Device: None Transfers: Type Of Assistance: For Balance;For Strength Deficit;For Safety Considerations;Requires Extra Time;Verbal Cues End Of Activity Status: In Bed Comments: Despite demonstrating to pt how to perform squat pivot transfer with only 90 degree pivot for improved safety, pt still stands up, faces wheelchair and places B hands on B wheelchair arm rests and pivots around 180 degrees. Reviewed with pt twice this session, and both times pt stated she understood, but despite cues, continued to perform using her same technique. Pt would benefit from ongoing training. WHEELCHAIR MOBILITY: Wheelchair Mobility Wheelchair: Distance: 50 feet Wheelchair: Assistance Level: Moderate Assist;Level Surfaces Wheelchair: Method: Propels Manual Wheelchair with;Bilateral;UE Comments: Pt C/O nausea this session and did not appear to put forth full effort into wheelchair mobility. ASSESSMENT/PROGRESS: Assessment/Progress Impaired Mobility Due To: Pain;Post Surgical Changes AM-PAC 6 Clicks Basic Mobility Inpatient Turning [...] your arms (e.g. wheelchair, or bedside chair): None To walk in hospital room: A Lot Climbing 3-5 steps with a railing: A Lot Raw Score: 20 Standardized (T-scale) Score: 43.99 Basic Mobility CMS 0-100%: 33.32 CMS G Code Modifier for Basic Mobility: CJ GOALS: Goals Goal Formulation: With Patient Time For Goal Achievement: 6 days Pt Will Go Supine To/From Sit: w/ Stand By Assist, Met Pt Will Transfer Bed/Chair: w/ Stand By Assist, Met Pt Will Transfer Sit to Stand: w/ Stand By Assist, Met Pt Will Propel Wheelchair: >150 Feet, Independently PLAN: Plan Treatment Interventions: Mobility Training;Strengthening;ROM Plan Frequency: 3-5 Days per Week PT Plan for Next Visit: Patients mobility has progressed appropriately for discharge home. If patient remains in the hospital, continue transfer training and assess wheelchair mobility RECOMMENDATIONS: PT Discharge Recommendations PT Discharge Recommendations: Home with Assistance Equipment Recommendations: Patient owns necessary equipment;Roller Walker; Wheelchair Therapist: Susana Guo Date: 08/18/2018 * Denys Salvador MD - 08/18/2018 11:50 AM CDT Formatting of this note may be different from the original. Infectious Disease Progress Note Name: Betinanikhil Baron Today's Date: 08/18/2018 Assessment: 1. Uncontrolled diabetes - reportedly BG levels as high as 800s in recent past - last HgA1C on file at [facility] from 04/11/18 was 10.5 2. Polysubstance abuse - long-term methamphetamine user (smoke); distant crack cocaine use reportedly - Denies IVDA - Patient's UDS was positive for opiates, methamphetamines and amphetamines at OSH - Current ppd tobacco smoker 3. LV Thrombus + arterial emboli / cardiomyopathy - echo (04/11/18): Moderately dilated LV with severely reduced EF=15%. 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 Mild eccentric LV hypertrophy. Normal RV. Moderate LA dilation; mild atrial dilation; elevated CVP; normal valvular structures - Cardiology consulted - carvedilol,lisinopril, spironolactone, lasix - CTA abdomen with aortogram + bilateral runoff (): small pericardial effusion, wedge-shaped defect in segment 7 of the liver, wedge shaped hypodensities throughout the spleen and left kidney consistent with thrombotic events. CTA also demonstrated left ventricular mass consistent with thrombus, complete occlusion of the left proximal femoral and femoral profundus arteries, complete occlusion at the level of the right popliteal artery and enlarged uterus likely secondary to fibroid. - OR (08/09/18): eft common femoral, profunda and superficial femoral artery thrombectomy followed by closure with bovine pericardial patch. She underwent thrombectomy of the right SFA, popliteal artery, anterior tibial artery, posterior tibial artery and peroneal artery. Attempted thrombectomy was performed at the right posterior and anterior tibial arteries, however, there were findingsof chronic arterial occlusion 4. Positive blood culture -Per outside hospital "growing GPCs" Called [facility] lab in [place], [place] to request records which show in 1/2 bottles: Pt is currently growning MSSA, MRSE, and Enterococcus (Vanc S) from blood cultures Staph aureus - etiology unknown - Blood cultures have been obtained 08/09 [facility], and 5. BARRETT estimated creatinine clearance is 80.9 mL/min (based on SCr of 0.9 mg/dL). Cr is double her baseline of 0.5 6. Antimicrobial Intolerance/Sensitivity - Penicillin- said to cause rash, hive, and shortness of breath Recommendations: Continue: Daptomycin 10mg/kg q24hr while inpatient. She is NOTa candidate for a PICC line as outpatient given hx of polysubstance use. Upon discharge: Dalbavancin 1500mg 2 weeks apart, with weekly CBC, diff, CMP. Awaiting final work from social work as to whether this is a viable option. Bleeding management per WORKFORCE ANALYST __ Interval Hx Seen and examined. Vagina bleeding continues to be quite heavy, she is losing Hgb and requiring transfusion daily. She states she's feeling well and ready to go home. She is very frustrated and tearful today about having to stay in the hospital. \\ [facility] surgery believes discharge with wound vac is reasonable once abx and bleeding issues are resolved. Cr is stable at 0.81. WBC 15.2, hb 6.7, Plts 201 Cr 0.85 Antimicrobial Start date End date Ceftaroline 08/10 08/11 Daptomycin 08/10 Active Estimated Creatinine Clearance: 85.6 mL/min (based on SCr of 0.85 mg/dL). Medications Scheduled Meds: DAPTOmycin (CUBICIN) injection 700 mg 10 mg/kg (Adjusted) Intravenous Q24H* enoxaparin (LOVENOX) syringe 70 mg 70 mg Subcutaneous BID ferrous sulfate (FEOSOL, FEROSUL) tablet 325 mg 325 mg Oral Q48H* insulin aspart U-100 (NOVOLOG FLEXPEN) injection PEN 0-14 Units 0-14 Units Subcutaneous ACHS insulin aspart U-100 (NOVOLOG FLEXPEN) injection PEN 10 Units 10 Units Subcutaneous TID w/ meals insulin glargine (LANTUS SOLOSTAR, BASAGLAR) injection PEN 20 Units 20 Units Subcutaneous BID lidocaine 1 % (10mg/mL) injection 20 mL 20 mL Injection ONCE medroxyprogesterone (proVERA) tablet 10 mg 10 mg Oral BID polyethylene glycol 3350 (MIRALAX) packet 17 g 1 packet Oral BID senna/docusate (SENOKOT-S) tablet 1 tablet 1 tablet Oral BID Continuous Infusions: PRN and Respiratory Meds:benzocaine/menthol Q2H PRN, diphenhydrAMINE/lidocaine/ antacid (#) TID PRN, oxyCODONE Q4H PRN, vitamin A & D PRN Physical Examination Vital Signs: Last Vital Signs: 24 Hour Range BP: 96/47 (08/18 1118) Temp: 36.9 C (98.4 F) (08/18 1118) Pulse: 76 (08/18 1118) Respirations: 13 PER MINUTE (08/18 1118) SpO2: 99 % (08/18 1118) O2 Delivery: None (Room Air) (08/18 1056) SpO2 Pulse: 79 (08/18 105) BP: (83-110)/(44-65) Temp: [36.6 C (97.9 F)-37.1 C (98.8 F)] Pulse: [71-95] Respirations: [11 PER MINUTE-30 PER MINUTE] SpO2: [98 %-100 %] O2 Delivery: None (Room Air) General:alert, oriented, NAD, unkempt, appears older than stated age HEENT: No thrush;largely edentulous with many missing/broken teeth Lungs:no wheezing Heart: Regular rhythm, reg rate Abdomen:soft Ext:post thrombectomy scars of the right leg x3 with upper incision site appearing slightly erythematous (will continue to watch)/ left thrombectomy site covered with wound vac, Skin: no rashes/lesions, multiple tattoos throughout the body Lines: PIV Laboratory Hematology Recent Labs 08/15/18 1846 08/17/18 1034 08/17/18 1722 08/18/18 0055 08/18/18 0820 WBC 9.6 < > 11.4* 13.8* 14.0* 15.2* HGB 8.6* < > 6.6* 7.4* 6.1* 6.7* HCT 26.9* < > 20.5* 22.8* 18.8* 20.4* PLTCT 204 < > 193 211 201 201 INR 0.9 -- 0.9 -- -- -- < >=values in this interval not displayed. Chemistry Recent Labs 08/16/18 0535 08/17/18 0235 08/18/18 0055 NA 133* 131* 131* K 4.6 4.4 4.2 CL 101 98 101 CO2 27 26 26 BUN 18 17 17 CR 0.78 0.81 0.85 GFR >60 >60 >60 GLU 163* 132* 270* CA 8.4* 8.2* 8.0* ALBUMIN 2.4* 2.6* 2.4* ALKPHOS 88 83 71 AST 13 12 12 ALT 11 12 8 TOTBILI 0.4 0.6 0.3 Microbiology, Radiology and other Diagnostics Review Microbiology reviewed. Pertinent radiology viewed. Denys Can MD Division of Infectious Diseases * Liliya Puente RN - 08/18/2018 9:26 AM CDT Med team paged regarding patient's lovenox injection this morning and IR procedure this afternoon. Per med team okay for RN to still administer lovenox injection before procedure. * Branden Torres MD - 08/18/2018 8:47 AM CDT Formatting of this note may be different from the original. Progress Note - Internal Medicine Brief Clinical Summary 48 y.o.female(PMHx:Polysubstance abuse;DMII;LV thrombus) presented on 08/09/2018 in transfer w/bilateral body pain --> DKA. Multiple emboli (spleen/kidney/L femoral artery). Underewent emergency thrombectomy. PATRIA 08/14/18. GPC bacteremia. Consultants - Cardiology and Vascular Surgery. Assessment (differential diagnosis) | Status Acute blood loss anemia (vaginal bleeding due to menses) | Ongoing, but remains hemodynamically stable. This hospitalization, has required multiple blood transfusions. Vaginal bleeding (uterine fibroids) | Ongoing, but improving. Last admission, was seen by Gynecology. Endometrial carcinoma/malignancy was excluded at that time. Has been recommended that she take medroxyprogesterone, but she refuses, citing a concern that it makes her bleed rather than prevent bleeding. Gynecology has been in contact with IR regarding uterine artery embolization procedure, and she now agrees. Depo-Provera administered 08/16/18 and on progestin oral. Uterine artery embolization 08/18/18. Left ventricular thrombus (stasis v heart failure) | Ongoing. Complicated by distal emobolization and infarction of multiple organs. Originally diagnosed at [facility] in [place], [place]. She was diagnosed with an LV thrombus and placed on anticoagulation at the beginning of 2017. Non-adherence to anticoagulation. Verified on PATRIA done 08/14/18 (results below), and no perivalvular abscesses noted. Currently on AC with enoxaparin, and risk:benefit discussions have highlighted need for AC in spite of ongoing vaginal bleeding, which developed at onset of menses. Bilateral lower extremity ischemia (embolization from LV thrombus) | Resolved. S /P Left common femoral, profunda and superficial femoral artery thrombectomy followed by closure with bovine pericardial patch. She underwent thrombectomy of the right SFA, popliteal artery, anterior tibial artery, posterior tibial artery and peroneal artery. Attempted thrombectomy was performed at the right posterior and anterior tibial arteries, however, there were findings of chronic arterial occlusion Vascular Surgery planning to place Provena wound VAC at the time of discharge. They note that the battery will run out approximately 7 days after started and at that time she may remove the dressing and leave the space open to air. ASA on hold. Polymicrobial bacteremia | Clinically improving. Infectious Diseases contacted the hospital in [facility] to request records demonstrating staph aureus, enterococcus (later clarified and speciated to beta-hemolytic strep was the final change), coag negative staph. Currently on daptomycin, with plans for prolonged course. CM working on arranging dalvabancin as an outpatient - 2 doses 2 weeks apart. If not possible, will need to stay inpatient for entire course (uninsured). Splenic artery emboli (embolization from LV thrombus) | Noted on CT angiogram performed at the time of presentation. Asymptomatic. Renal artery emboli (embolization from LV thrombus) | Noted on CT angiogram performed at the time of presentation. Asymptomatic. Chronic systolic heart failure (non-ischemic cardiomyopathy) | Compensated, and improved since 04/11/18. 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 Currently on carvedilol , lisinopril, and furosemide. Echocardiogram 08/10/18 with improvement from ( results below) ~15% to 30%. PATRIA (results below) re-demonstrating clot. DMII (insulin resistance) | Improving control, and suspicion for non-adherence at home and lack of access to affordable alternatives. At presentation, was in DKA. Reports that at home she was on detemir and aspart, but that she had not been prescribed enough. She notes cost-effective options at the [facility] in [place], [place] - called and they in fact have low-cost detemir and aspart. *Spoke with [facility] [phone] and they have inexpensive medications available: Insulin detemir box of 5 pens $15 Insulin aspart box of 5 pens $8 (She has stated she can afford this). Titration ongoing. Chronic illness/Moderate non-severe malnutrition | Weight loss 10% x 6 months w/ mild loss of muscle mass and energy intake: < 75% of estimated energy requirement for 1 month or more Pressure wound on coccyx, stage 2 | Not POA. Wound care consulting. Polysubstance abuse (addiction versus education deficit ) | Pre- contemplative stage of cessation. Endorsed smoking methamphetamine at the time of presentation. UDS at the time of admission was positive for opiates, amphetamines, and methamphetamines at the outside hospital. Denies ongoing IV drug use. Status post left BKA | Well-healed and at her baseline functional level. She uses wheelchair to live in her home independently and gets around without a device. Pulmonary nodule | Stable. Noted on CT angiogram performed 08/09/2018 and described as unchanged as compared to prior exam. Since she is a high risk patient requires CT follow-up in 1 year. Iron deficiency anemia (vaginal blood loss) | Ongoing. On iron replacement with ferrous sulfate 325mg PO BID with meals. Iron studies obtained 04/11/18 with severe iron deficiency. Polysubstance abuse (addiction v educational deficit) | No current clinical evidence of withdrawal. At risk for DVT (hospitalization/immobilization) | On enoxaparin for AC. Plan Continue to hold carvedilol with marginal BPs and ongoing blood loss Continue to hold ACEI with marginal BPs and ongoing blood loss Continue to hold furosemide given euvolemia Continue current IV antibiotics: Daptomycin Continue enoxaparin 70mg BID for anticoagulation, weighing risk:benefit of vaginal bleeding which she states is her menstrual cycle or definitive control with UAE. Uterine artery embolization this AM Continue to evaluate alternatives to enoxaparin (given poor adherence to warfarin in the past) and possible NOAC - by report, PCP working on finding financial assistance program for apixapban and this will need to be verified before DC Continue oral pain control regimen, with oxycodone 2.5-5mg Q4h PRN Increase insulin glargine to 20U BID Rooke boot to RLE CM to look in to dalbavancin 1500mg Q2 weeks for 4 weeks Subjective No new complaints this AM. Continues heavy passage of blood overnight and required another transfusion. No fever, no chills, no nausea. No lightheadedness , but has been largely bedbound. She continues to demonstrate capacity in decision-making, stating that if off of AC, she could "have a stroke and " and verbalizes an intent to continue taking AC at home once discharged. Agrees to uterine artery embolization this AM. Review of Systems CONS: No subjective fever, no chills. CVS: No palpitations. No chest pain. RESP: No dyspnea. No cough. GI: No abdominal pain. No diarrhea or constipation. No nausea, no vomiting. : Vaginal bleeding persists. Objective Vital Signs Temp: [36.6 C (97.9 F)-37.1 C (98.8 F)] Pulse: [71-95] Respirations: [11 PER MINUTE-30 PER MINUTE] SpO2 Pulse: [71-94] SpO2: [98 %-100 %] BP: (83-110)/(44-65) I/Os from Yesterday's Shift 08/17 0701 - 08/18 0700 In: 990 [P.O.:342] Out: 2030 [Urine:1450] Physical Examination GEN: Alert and oriented x3 (person/place/time), NAD. CVS: S1/S2 audible, no murmurs audible. Appears and feels warm and well- perfused. HEENT: Poor dentition. RESP: Lungs clear to ascultation. No wheezes, rhonchi, nor crackles. GI: Abdomen soft. Non-tender to palpation. SKIN: Warm. Dry. L groin with vac in place. MSK: R leg in boot. L leg BKA. Lab Studies Recent labs reviewed. Notable for: Hemoglobin 6.1 WBC 14 Platelets 201 INR 0.9 Fibrinogen 5.68 Sodium 131 Potassium 131 Chloride 101 Bicarbonate 26 BUN 17 Creatinine 0.85 Imaging Studies Recent imaging reviewed. Notable for: CT angiogram of the abdominal aorta with bilateral runoff without and with contrast performed 08/09/2018 with redemonstration of left ventricular mass and completed motion of the left femoral. Also complete occlusion of the right popliteal with collateral reconstitution at the trifurcation vessels which are poorly opacified. Patchy wedge-shaped hypodensities throughout the spleen and left kidney consistent with known splenic and renal emboli. Also increase in size of the fatcontaining umbilical hernia and improvement in diffuse body wall edema. There is moderate luminal narrowing of the infrarenal abdominal aorta without aneurysm. There is an enlarged likely fibroid uterus unchanged from previous exam. There is a small right lung base nodule unchanged from prior exam. PATRIA 08/15/18 w/All apical left ventricular segments appear hypokinetic. Overall left ventricular systolic function is moderately impaired. The estimated left ventricular ejection fraction is 35%. The left ventricle appears mildly enlarged. Right ventricular contractility appears normal. Moderate left atrial enlargement. Mild right atrial enlargement. Cardiac valve structures are unremarkable. Mild tricuspid valve regurgitation is noted by Doppler exam. No valvular vegetations are noted. No perivalvular abscesses noted. No pericardial effusion is seen. A large, mobile left ventricular apical thrombus is noted which measures approximately 2.3 x 2.9 cm in dimensions. A patent foramen ovale is noted by color flow Doppler exam. Microbiological Studies Recent microbiology reviewed. Notable for: Blood culture collected 04/11/2018 negative Blood culture collected 04/11/2018 negative Urine culture collected 04/11/2018 negative MRSA screen 08/09/2018 negative Perirectal VRE swab collected 08/09/2018 negative Blood culture collected 08/09/2018 from the left wrist no growth Blood culture collected 08/10/2018 no growth at 4 days Pathology ThinPrep cytology performed 04/14/2018 low risk HPV Endometrial biopsy performed 04/14/2018 demonstrated minute fragments of benign endometrial epithelium and endocervical glandular mucosa with no evidence of hyperplasia, dysplasia, or malignancy. Discharge Planning/Barriers to Discharge Uninsured, so follow-up may be difficult Future Appointments Date Time Provider Department Center 08/18/2018 11:45 AM IR ROOM 3 IR Interv Radio Daily Rounding Checklist Line necessity Fernández necessity Telemetry necessity PT/OT necessity DME needs evaluated and supplied Diet at highest level IV --> PO medications Teaching needs Pharmacy needs Wound care needs Planned D/C location (Home/LTAC/SNF/Rehab/Other) Branden Torres M.D. Department of Internal Medicine 08/18/2018 8:47 AM * Ravi Torres MD - 08/18/2018 8:00 AM CDT Formatting of this note may be different from the original. Gynecology Progress Note SUBJECTIVE: This morning Ms. Baron says she still is having heavy bleeding. Large clots are less, however still waking up in the middle of night to change pad and going through a pad about every hour. OBJECTIVE: Patient Vitals for the past 24 hrs: BP Temp Pulse SpO2 08/18/18 0500 98/51 - 94 99 % 08/18/18 0455 97/48 36.8 C (98.2 F) 80 99 % 08/18/18 0400 104/49 37.1 C (98.8 F) 84 100 % 08/18/18 0300 (!) 85/51 37.1 C (98.8 F) 76 100 % 08/18/18 0239 (!) 86/51 37.1 C (98.8 F) 80 99 % 08/18/18 0223 (!) 83/44 36.9 C (98.4 F) 80 99 % 08/18/18 0027 91/50 36.7 C (98.1 F) - - 08/17/18 1941 91/48 36.8 C (98.3 F) 82 100 % 08/17/18 1500 98/45 36.9 C (98.5 F) 77 100 % 08/17/18 1430 98/57 36.7 C (98 F) 95 100 % 08/17/18 1326 110/65 36.6 C (97.9 F) 73 100 % 08/17/18 1222 95/44 37 C (98.6 F) 71 100 % 08/17/18 1122 94/50 36.7 C (98.1 F) 89 99 % 08/17/18 1107 97/51 36.8 C (98.2 F) 86 98 % Physical Exam: General: No acute distress. Lungs: breathing unlabored Abdomen: Soft, appropriately tender to palpation. Non-distended. Positive bowel sounds. Extremities: Left BKA, r leg in brace Lab Review: 24-hour labs: Results for orders placed or performed during the hospital encounter of (from the past 24 hour(s)) POC GLUCOSE Collection Time: 08/17/18 8:14 AM Result Value Ref Range Glucose, POC 166 (H) 70 - 100 MG/DL CBC Collection Time: 08/17/18 10:34 AM Result Value Ref Range White Blood Cells 11.4 (H) 4.5 - 11.0 K/UL RBC 2.44 (L) 4.0 - 5.0 M/UL Hemoglobin 6.6 (L) 12.0 - 15.0 GM/DL Hematocrit 20.5 (L) 36 - 45 % MCV 84.2 80 - 100 FL MCH 27.1 26 - 34 PG MCHC 32.2 32.0 - 36.0 G/DL RDW 23.1 (H) 11 - 15 % Platelet Count 193 150 - 400 K/UL MPV 8.1 7 - 11 FL FIBRINOGEN Collection Time: 08/17/18 10:34 AM Result Value Ref Range Fibrinogen 568 (H) 200 - 400 MG/DL PROTIME INR (PT) Collection Time: 08/17/18 10:34 AM Result Value Ref Range INR 0.9 0.8 - 1.2 POC GLUCOSE Collection Time: 08/17/18 11:17 AM Result Value Ref Range Glucose, POC 209 (H) 70 - 100 MG/DL CREATINE KINASE-CPK Collection Time: 08/17/18 2:00 PM Result Value Ref Range Creatine Kinase 41 21 - 215 U/L CBC Collection Time: 08/17/18 5:22 PM Result Value Ref Range White Blood Cells 13.8 (H) 4.5 - 11.0 K/UL RBC 2.69 (L) 4.0 - 5.0 M/UL Hemoglobin 7.4 (L) 12.0 - 15.0 GM/DL Hematocrit 22.8 (L) 36 - 45 % MCV 84.7 80 - 100 FL MCH 27.5 26 - 34 PG MCHC 32.5 32.0 - 36.0 G/DL RDW 21.0 (H) 11 - 15 % Platelet Count 211 150 - 400 K/UL MPV 8.7 7 - 11 FL POC GLUCOSE Collection Time: 08/17/18 6:00 PM Result Value Ref Range Glucose, POC 161 (H) 70 - 100 MG/DL POC GLUCOSE Collection Time: 08/17/18 8:16 PM Result Value Ref Range Glucose, POC 121 (H) 70 - 100 MG/DL CBC Collection Time: 08/18/18 12:55 AM Result Value Ref Range White Blood Cells 14.0 (H) 4.5 - 11.0 K/UL RBC 2.22 (L) 4.0 - 5.0 M/UL Hemoglobin 6.1 (L) 12.0 - 15.0 GM/DL Hematocrit 18.8 (L) 36 - 45 % MCV 84.8 80 - 100 FL MCH 27.4 26 - 34 PG MCHC 32.3 32.0 - 36.0 G/DL RDW 22.4 (H) 11 - 15 % Platelet Count 201 150 - 400 K/UL MPV 8.7 7 - 11 FL COMPREHENSIVE METABOLIC PANEL Collection Time: 08/18/18 12:55 AM Result Value Ref Range Sodium 131 (L) 137 - 147 MMOL/L Potassium 4.2 3.5 - 5.1 MMOL/L Chloride 101 98 - 110 MMOL/L Glucose 270 (H) 70 - 100 MG/DL Blood Urea Nitrogen 17 7 - 25 MG/DL Creatinine 0.85 0.4 - 1.00 MG/DL Calcium 8.0 (L) 8.5 - 10.6 MG/DL Total Protein 4.7 (L) 6.0 - 8.0 G/DL Total Bilirubin 0.3 0.3 - 1.2 MG/DL Albumin 2.4 (L) 3.5 - 5.0 G/DL Alk Phosphatase 71 25 - 110 U/L AST (SGOT) 12 7 - 40 U/L CO2 26 21 - 30 MMOL/L ALT (SGPT) 8 7 - 56 U/L Anion Gap 4 3 - 12 eGFR Non >60 >60 mL/min eGFR >60 >60 mL/min Intake/Output Summary (Last 24 hours) at 08/18/18 0800 Last data filed at 08/18/18 0455 Gross per 24 hour Intake 990 ml Output 2030 ml Net -1040 ml Point of Care Testing: (Last 24 hours): Glucose: (!) 270 (08/18/1854) POC Glucose (Download): (!) 121 (08/17/182015) ASSESSMENT: Active Problems: Mass of heart Acute systolic CHF (congestive heart failure) (HCC) LV (left ventricular) mural thrombus without ID Polysubstance abuse (HCC) DM (diabetes mellitus) (HCC) Bacteremia due to Gram-positive bacteria Moderate malnutrition (HCC) 48yo admitted for multiple arterial thrombi and bacteremia consult for AUB requiring blood transfusions. Pt on therapeutic lovenox. Co-morbids- anemia, DM, polysubstance use, CHF PLAN: 1. Interventional radiology will perform uterine artery embolization today. This is likely the most suitable option for patient to manage her vaginal bleeding. Discussed with patient that this may cause discomfort for the next couple days. 2. Will NOT place IUD as patient is getting UAE 3. Depo Lupron 08/16. This is an injection that she will need every 3 months. It may cause menopause symptoms. If vasomotor symptoms develop or become bothersome to patient venlafaxine 75 mg daily 4. May continue provera while inpatient 5. Continue pad counts. EBL over past 24 hours 580. Am Hgb 6.1. 6. Gynecology will continue to follow. 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 D/w Dr. Guillermo Torres MD PGY-4 Obstetrics and Gynecology Please page the Gynecology pager at [phone] with any questions or concerns. Thank you. Associated attestation - Pauline Li MD - 08/20/2018 6:51 PM CDT I personally saw and evaluated the patient. I have reviewed and agree with the impressions and care plan as documented. Pauline Li MD * Eda Alves, RN - 08/18/2018 1:00 AM CDT Pt has OSH WV to Lt thigh with no suction, battery not charged and no plate mill hand available. WV tubing is not compatible with our wound vacs. Notified Dr. James to clarify if I should leave the dressing intact without suction, replace, or place to wall suction. Per Dr. James, RN to leave W[place] sponge in place without suction until wound team can assess it. * Ravi Torres MD - 08/17/2018 6:04 PM CDT Formatting of this note may be different from the original. Gynecology Progress Note SUBJECTIVE: Ms. Baron is feeling better but continues to have bleeding. Somewhat improved. She agreees for uterine artery embolization.. OBJECTIVE: Patient Vitals for the past 24 hrs: BP Temp Pulse SpO2 08/17/18 1500 98/45 36.9 C (98.5 F) 77 100 % 08/17/18 1430 98/57 36.7 C (98 F) 95 100 % 08/17/18 1326 110/65 36.6 C (97.9 F) 73 100 % 08/17/18 1222 95/44 37 C (98.6 F) 71 100 % 08/17/18 1122 94/50 36.7 C (98.1 F) 89 99 % 08/17/18 1107 97/51 36.8 C (98.2 F) 86 98 % 08/17/18 0800 107/64 36.8 C (98.3 F) 76 99 % 08/17/18 0714 107/64 36.4 C (97.6 F) 84 100 % 08/17/18 0500 103/60 36.9 C (98.4 F) 72 98 % 08/17/18 0416 126/67 36.8 C (98.3 F) 89 100 % 08/17/18 0401 107/63 37.1 C (98.7 F) 85 97 % 08/17/18 0146 98/42 37.1 C (98.7 F) 85 99 % 08/16/18 2300 (!) 84/69 36.9 C (98.4 F) 88 100 % 08/16/18 2245 100/59 - 77 99 % 08/16/18 2228 100/46 36.9 C (98.4 F) 86 100 % 08/16/18 2213 90/40 37.2 C (98.9 F) 78 100 % 08/16/18 2200 90/41 37.2 C (98.9 F) 75 98 % 08/16/18 2000 111/57 36.7 C (98 F) 83 100 % Physical Exam: General: No acute distress. Lungs: breathing unlabored Abdomen: Soft, appropriately tender to palpation. Non-distended. Positive bowel sounds. Extremities: Left BKA, r leg in brace Lab Review: 24-hour labs: Results for orders placed or performed during the hospital encounter of (from the past 24 hour(s)) TYPE & CROSSMATCH Collection Time: 08/16/18 8:53 PM Result Value Ref Range Units Ordered 3 Crossmatch Expires 08/19/2018 Record Check FOUND ABO/RH(D) A NEG Antibody Screen NEG Electronic Crossmatch YES Unit Number [id number] Blood Component Type RBC,ADSOL,LEUKO REDUCED Unit Division 0 Status OF Unit TRANSFUSED Transfusion Status OK TO TRANSFUSE Crossmatch Result COMPATIBLE,ELECTRONIC Unit Number [id number] Blood Component Type RBC,ADSOL,LEUKO REDUCED Unit Division 0 Status OF Unit ISSUED Transfusion Status OK TO TRANSFUSE Crossmatch Result COMPATIBLE,ELECTRONIC Unit Number [id number] Blood Component Type RBC,ADSOL,LEUKO REDUCED,1ST CONT. Unit Division 0 Status OF Unit ISSUED Transfusion Status OK TO TRANSFUSE Crossmatch Result COMPATIBLE,ELECTRONIC POC GLUCOSE Collection Time: 08/16/18 9:05 PM Result Value Ref Range Glucose, POC 167 (H) 70 - 100 MG/DL CBC Collection Time: 08/17/18 2:35 AM Result Value Ref Range White Blood Cells 11.1 (H) 4.5 - 11.0 K/UL RBC 2.48 (L) 4.0 - 5.0 M/UL Hemoglobin 6.6 (L) 12.0 - 15.0 GM/DL Hematocrit 20.7 (L) 36 - 45 % MCV 83.3 80 - 100 FL MCH 26.4 26 - 34 PG MCHC 31.7 (L) 32.0 - 36.0 G/DL RDW 25.7 (H) 11 - 15 % Platelet Count 186 150 - 400 K/UL MPV 8.4 7 - 11 FL COMPREHENSIVE METABOLIC PANEL Collection Time: 08/17/18 2:35 AM Result Value Ref Range Sodium 131 (L) 137 - 147 MMOL/L Potassium 4.4 3.5 - 5.1 MMOL/L Chloride 98 98 - 110 MMOL/L Glucose 132 (H) 70 - 100 MG/DL Blood Urea Nitrogen 17 7 - 25 MG/DL Creatinine 0.81 0.4 - 1.00 MG/DL Calcium 8.2 (L) 8.5 - 10.6 MG/DL Total Protein 5.2 (L) 6.0 - 8.0 G/DL Total Bilirubin 0.6 0.3 - 1.2 MG/DL Albumin 2.6 (L) 3.5 - 5.0 G/DL Alk Phosphatase 83 25 - 110 U/L AST (SGOT) 12 7 - 40 U/L CO2 26 21 - 30 MMOL/L ALT (SGPT) 12 7 - 56 U/L Anion Gap 7 3 - 12 eGFR Non >60 >60 mL/min eGFR >60 >60 mL/min POC GLUCOSE Collection Time: 08/17/18 6:53 AM Result Value Ref Range Glucose, POC 187 (H) 70 - 100 MG/DL POC GLUCOSE Collection Time: 08/17/18 8:14 AM Result Value Ref Range Glucose, POC 166 (H) 70 - 100 MG/DL CBC Collection Time: 08/17/18 10:34 AM Result Value Ref Range White Blood Cells 11.4 (H) 4.5 - 11.0 K/UL RBC 2.44 (L) 4.0 - 5.0 M/UL Hemoglobin 6.6 (L) 12.0 - 15.0 GM/DL Hematocrit 20.5 (L) 36 - 45 % MCV 84.2 80 - 100 FL MCH 27.1 26 - 34 PG MCHC 32.2 32.0 - 36.0 G/DL RDW 23.1 (H) 11 - 15 % Platelet Count 193 150 - 400 K/UL MPV 8.1 7 - 11 FL FIBRINOGEN Collection Time: 08/17/18 10:34 AM Result Value Ref Range Fibrinogen 568 (H) 200 - 400 MG/DL PROTIME INR (PT) Collection Time: 08/17/18 10:34 AM Result Value Ref Range INR 0.9 0.8 - 1.2 POC GLUCOSE Collection Time: 08/17/18 11:17 AM Result Value Ref Range Glucose, POC 209 (H) 70 - 100 MG/DL CREATINE KINASE-CPK Collection Time: 08/17/18 2:00 PM Result Value Ref Range Creatine Kinase 41 21 - 215 U/L CBC Collection Time: 08/17/18 5:22 PM Result Value Ref Range White Blood Cells 13.8 (H) 4.5 - 11.0 K/UL RBC 2.69 (L) 4.0 - 5.0 M/UL Hemoglobin 7.4 (L) 12.0 - 15.0 GM/DL Hematocrit 22.8 (L) 36 - 45 % MCV 84.7 80 - 100 FL MCH 27.5 26 - 34 PG MCHC 32.5 32.0 - 36.0 G/DL RDW 21.0 (H) 11 - 15 % Platelet Count 211 150 - 400 K/UL MPV 8.7 7 - 11 FL POC GLUCOSE Collection Time: 08/17/18 6:00 PM Result Value Ref Range Glucose, POC 161 (H) 70 - 100 MG/DL Intake/Output Summary (Last 24 hours) at 08/17/18 1804 Last data filed at 08/17/18 1435 Gross per 24 hour Intake 600 ml Output 500 ml Net 100 ml Point of Care Testing: (Last 24 hours): FSBS (Manual): (!) 167 (08/16/182104) Glucose: (!) 132 (08/17/18234) POC Glucose (Download): (!) 161 (08/17/18 1800) ASSESSMENT: Active Problems: Mass of heart Acute systolic CHF (congestive heart failure) (HCC) LV (left ventricular) mural thrombus without ID Polysubstance abuse (HCC) DM (diabetes mellitus) (HCC) Bacteremia due to Gram-positive bacteria Moderate malnutrition (HCC) 48yo admitted for multiple arterial thrombi and bacteremia consult for AUB requiring blood transfusions Co-morbids- anemia, DM, polysubstance use, CHF PLAN: 1. Interventional radiology will perform uterine artery embolization tomorrow. This is likely the most suitable option for patient to manage her vaginal bleeding. Discussed with patient that this may cause discomfort for the next couple days. 2. Will NOT place IUD as patient is getting UAE 3. Depo Lupron 08/16. This is an injection that she will need every 3 months. It may cause menopause symptoms. If vasomotor symptoms develop or become bothersome to patient venlafaxine 75 mg daily 4. May continue provera while inpatient D/w Dr. Guillermo Torres MD PGY-4 Obstetrics and Gynecology Please page the Gynecology pager at [phone] with any questions or concerns. Thank you. Associated attestation - Pauline Li MD - 08/20/2018 6:51 PM CDT I personally saw and evaluated the patient. I have reviewed and agree with the impressions and care plan as documented. Pauline Li MD * Cornel Reyes RN - 08/17/2018 5:22 PM CDT iv team at bedside to draw labs w US * Aleyda Reeder, PT - 08/17/2018 3:09 PM CDT PHYSICAL THERAPY NOTE RN reports that patient continues to mobilize at baseline level: transfers to/ from commode and wheelchair. Ordered an iris cushion for the patient to use when up in wheelchair/recliner due to new stage II pressure wound on coccyx. Discussed this with RN as well. Will continue to follow and provide intervention as indicated. Discharge Recommendation: Home with Assistance and Home Health therapy Equipment Recommendation: Patient owns necessary equipment (roller walker, manual wheelchair) Therapist: Aleyda Reeder, PT, DPT Date: 08/17/2018 * Denys Salvador MD - 08/17/2018 2:09 PM CDT Formatting of this note may be different from the original. Infectious Disease Progress Note Name: Betina Baron Today's Date: 08/17/2018 Assessment: 1. Uncontrolled diabetes - reportedly BG levels as high as 800s in recent past - last HgA1C on file at [facility] from 04/11/18 was 10.5 2. Polysubstance abuse - long-term methamphetamine user (smoke); distant crack cocaine use reportedly - Denies IVDA - Patient's UDS was positive for opiates, methamphetamines and amphetamines at OSH - Current ppd tobacco smoker 3. LV Thrombus + arterial emboli / cardiomyopathy - echo (04/11/18): Moderately dilated LV with severely reduced EF=15%. 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 Mild eccentric LV hypertrophy. Normal RV. Moderate LA dilation; mild atrial dilation; elevated CVP; normal valvular structures - Cardiology consulted - carvedilol,lisinopril, spironolactone, lasix - CTA abdomen with aortogram + bilateral runoff (): small pericardial effusion, wedge-shaped defect in segment 7 of the liver, wedge shaped hypodensities throughout the spleen and left kidney consistent with thrombotic events. CTA also demonstrated left ventricular mass consistent with thrombus, complete occlusion of the left proximal femoral and femoral profundus arteries, complete occlusion at the level of the right popliteal artery and enlarged uterus likely secondary to fibroid. - OR (08/09/18): eft common femoral, profunda and superficial femoral artery thrombectomy followed by closure with bovine pericardial patch. She underwent thrombectomy of the right SFA, popliteal artery, anterior tibial artery, posterior tibial artery and peroneal artery. Attempted thrombectomy was performed at the right posterior and anterior tibial arteries, however, there were findingsof chronic arterial occlusion 4. Positive blood culture -Per outside hospital "growing GPCs" Called [facility] lab in [place], [place] to request records which show in 1/2 bottles: Pt is currently growning MSSA, MRSE, and Enterococcus (Vanc S) from blood cultures Staph aureus - etiology unknown - Blood cultures have been obtained 08/09 NGTD, and 5. BARRETT estimated creatinine clearance is 80.9 mL/min (based on SCr of 0.9 mg/dL). Cr is double her baseline of 0.5 6. Antimicrobial Intolerance/Sensitivity - Penicillin- said to cause rash, hive, and shortness of breath Recommendations: Please continue: Daptomycin 10mg/kg q24hr while inpatient She is NOTa candidate for a PICC line as outpatient given hx of polysubstance use. Recommend to arrange 2 outpatient infusions of Dalbavancin 1500mg 2 weeks apart , with weekly CBC, diff, CMP. Per social work, the only way Dalbavancin can be given in her hometown is if [facility] were willing to send them the medication to then infuse, as it is too costly. Awaiting final work from social work as to whether this is a viable option. Will appreciate PHOTO JOURNALIST recommendations with regard to her vaginal bleeding. Depo Lupron given, discussion of Mirena placement. While patient did have bacteremia before, pt does not have evidence of bacteremia now, therefore would be safe to receive embolization or coiling if necessary. Blood culture repeats are negative for growth. Per conversation with primary team, sounds as if the plan is for uterine artery embolization from the R groin. From an ID prospective we are agreeable. Pt is a complicated one given her propensity for clotting requiring AC with superimposed overt bleeding necessitating transfusion, embolization may help alleviate the conflicting problems. ATTESTATION I have seen and examined the patient. I personally performed or re-performed the history, physical exam and treatment for the E/M. I discussed the case with the medical student Jonathan Latif, and concur with the medical student documentation of history, physical exam and treatment plan unless otherwise noted. Denys Can MD Date: 08/17/2018 __ Interval Hx Cr is stable at 0.81. Vagina bleeding continues to be quite heavy, she is losing Hgb and requiring transfusion daily. She states she's feeling well and ready to go home. She is very frustrated and tearful today about having to stay in the hospital. \\ Vasc surgery believes discharge with wound vac is reasonable once abx and bleeding issues are resolved. Antimicrobial Start date End date Ceftaroline 08/10 08/11 Daptomycin 08/10 Active Estimated Creatinine Clearance: 89.9 mL/min (based on SCr of 0.81 mg/dL). Medications Scheduled Meds: DAPTOmycin (CUBICIN) injection 700 mg 10 mg/kg (Adjusted) Intravenous Q24H* enoxaparin (LOVENOX) syringe 70 mg 70 mg Subcutaneous BID ferrous sulfate (FEOSOL, FEROSUL) tablet 325 mg 325 mg Oral Q48H* insulin aspart U-100 (NOVOLOG FLEXPEN) injection PEN 0-14 Units 0-14 Units Subcutaneous ACHS insulin aspart U-100 (NOVOLOG FLEXPEN) injection PEN 10 Units 10 Units Subcutaneous TID w/ meals insulin glargine (LANTUS SOLOSTAR, BASAGLAR) injection PEN 19 Units 19 Units Subcutaneous BID levonorgestrel (MIRENA) 20 mcg/24 hr (5 years) intrauterine device 1 Intra Uterine Device 1 Intra Uterine Device Intrauterine ONCE lidocaine 1 % (10mg/mL) injection 20 mL 20 mL Injection ONCE medroxyprogesterone (proVERA) tablet 10 mg 10 mg Oral BID polyethylene glycol 3350 (MIRALAX) packet 17 g 1 packet Oral BID senna/docusate (SENOKOT-S) tablet 1 tablet 1 tablet Oral BID Continuous Infusions: PRN and Respiratory Meds:benzocaine/menthol Q2H PRN, diphenhydrAMINE/lidocaine/ antacid (#) TID PRN, oxyCODONE Q4H PRN, vitamin A & D PRN Physical Examination Vital Signs: Last Vital Signs: 24 Hour Range BP: 110/65 (08/17 132) Temp: 36.6 C (97.9 F) (08/17 132) Pulse: 73 (08/17 132) Respirations: 19 PER MINUTE (08/17 132) SpO2: 100 % (08/17 132) O2 Delivery: None (Room Air) (08/17 132) SpO2 Pulse: 73 (08/17 1326) BP: (84-126)/(40-69) Temp: [36.4 C (97.6 F)-37.2 C (98.9 F)] Pulse: [71-89] Respirations: [11 PER MINUTE-24 PER MINUTE] SpO2: [97 %-100 %] O2 Delivery: None (Room Air) General:alert, oriented, NAD, unkempt, appears older than stated age HEENT: mucus membranes moist, no oral lesions/thrush;PERRL, EOM grossly intact , Conj nl, largely edentulous with many missing/broken teeth Neck: supple, no lymphadenopathy,thyroid not palpable Lungs:no wheezing, rhonchi, rales appreciated Heart: Regular rhythm, reg rate, with no murmur, rub, gallop Abdomen:soft, non-tender, non-distended, normoactive bowel sounds, no hepatosplenomegaly, no masses Ext:No clubbing, cyanosis or edema, post thrombectomy scars of the right leg x3 with upper incision site appearing slightly erythematous (will continue to watch)/ left thrombectomy site covered with wound vac, Skin: no rashes/lesions, multiple tattoos throughout the body Lymph:no cervical, axillary or inguinal adenopathy Lines: PIV Laboratory Hematology Recent Labs 08/15/18 1846 08/16/18 1550 08/17/18 0235 08/17/18 1034 WBC 9.6 < > 9.5 11.1* 11.4* HGB 8.6* < > 6.5* 6.6* 6.6* HCT 26.9* < > 19.8* 20.7* 20.5* PLTCT 204 < > 203 186 193 INR 0.9 -- -- -- 0.9 < >=values in this interval not displayed. Chemistry Recent Labs 08/15/18 0652 08/16/18 0535 08/17/18 0235 NA 130* 133* 131* K 4.9 4.6 4.4 CL 97* 101 98 CO2 24 27 26 BUN 21 18 17 CR 0.90 0.78 0.81 GFR >60 >60 >60 GLU 259* 163* 132* CA 8.4* 8.4* 8.2* ALBUMIN 2.9* 2.4* 2.6* ALKPHOS 119* 88 83 AST 11 13 12 ALT 8 11 12 TOTBILI 0.4 0.4 0.6 Microbiology, Radiology and other Diagnostics Review Microbiology reviewed. Pertinent radiology viewed. Jonathan Latif, MS4 Division of Infectious Diseases * Branden Torres MD - 08/17/2018 10:34 AM CDT Progress Note - Internal Medicine Brief Clinical Summary 48 y.o.female(PMHx:Polysubstance abuse;DMII;LV thrombus) presented on 08/09/2018 in transfer w/bilateral body pain --> DKA. Multiple emboli (spleen/kidney/L femoral artery). Underewent emergency thrombectomy. PATRIA 08/14/18. GPC bacteremia. Consultants - Cardiology and Vascular Surgery. Assessment (differential diagnosis) | Status Acute blood loss anemia (vaginal bleeding due to menses) | Ongoing, but remains hemodynamically stable. This hospitalization, has required multiple blood transfusions. Vaginal bleeding (uterine fibroids) | Ongoing, but improving. Last admission, was seen by Gynecology. Has been recommended that she take medroxyprogesterone, but she refuses, citing a concern that it makes her bleed rather than prevent bleeding. Gynecology has been in contact with IR regarding uterine artery embolization procedure, and she now agrees. Depo-Provera administered 08/16/18 and on progestin oral with IUD placed 08/16/18. Left ventricular thrombus (stasis v heart failure) | Ongoing. Complicated by distal emobolization and infarction of multiple organs. Originally diagnosed at [facility] in [place], [place]. She was diagnosed with an LV thrombus and placed on anticoagulation at the beginning of 2017. Non-adherence to anticoagulation. Verified on PATRIA done 08/14/18 (results below), and no perivalvular abscesses noted. Currently on AC with enoxaparin, and risk:benefit discussions have highlighted need for AC in spite of ongoing vaginal bleeding, which developed at onset of menses. Bilateral lower extremity ischemia (embolization from LV thrombus) | Resolved. S /P Left common femoral, profunda and superficial femoral artery thrombectomy followed by closure with bovine pericardial patch. She underwent thrombectomy of the right SFA, popliteal artery, anterior tibial artery, posterior tibial artery and peroneal artery. Attempted thrombectomy was performed at the right posterior and anterior tibial arteries, however, there were findings of chronic arterial occlusion Vascular Surgery planning to place Provena wound VAC at the time of discharge. They note that the battery will run out approximately 7 days after started and at that time she may remove the dressing and leave the space open to air. ASA on hold. Polymicrobial bacteremia | Clinically improving. Infectious Diseases contacted the hospital in [facility] to request records demonstrating staph aureus, enterococcus (later clarified and speciated to beta-hemolytic strep was the final change), coag negative staph. Currently on daptomycin, with plans for prolonged course. CM working on arranging dalvabancin as an outpatient - 2 doses 2 weeks apart. Splenic artery emboli (embolization from LV thrombus) | Noted on CT angiogram performed at the time of presentation. Asymptomatic. Renal artery emboli (embolization from LV thrombus) | Noted on CT angiogram performed at the time of presentation. Asymptomatic. Chronic systolic heart failure (non-ischemic cardiomyopathy) | Compensated, and improved since 04/11/18. 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 Currently on carvedilol , lisinopril, and furosemide. Echocardiogram 08/10/18 with improvement from ( results below) ~15% to 30%. PATRIA (results below) re-demonstrating clot. DMII (insulin resistance) | Improving control. At presentation, was in DKA. Reports that at home she was on detemir and aspart, but that she had not been prescribed enough. She notes cost-effective options at the [facility] in [place], [place] - called and they in fact have low-cost detemir and aspart. Chronic illness/Moderate non-severe malnutrition | Weight loss 10% x 6 months w/ mild loss of muscle mass and energy intake: < 75% of estimated energy requirement for 1 month or more Pressure wound on coccyx, stage 2 | Not POA. Wound care consulting. Polysubstance abuse (addiction versus education deficit ) | Pre- contemplative stage of cessation. Endorsed smoking methamphetamine at the time of presentation. UDS at the time of admission was positive for opiates, amphetamines, and methamphetamines at the outside hospital. Denies ongoing IV drug use. Status post left BKA | Well-healed and at her baseline functional level. She uses wheelchair to live in her home independently and gets around without a device. Pulmonary nodule | Stable. Noted on CT angiogram performed 08/09/2018 and described as unchanged as compared to prior exam. Since she is a high risk patient requires CT follow-up in 1 year. Iron deficiency anemia (vaginal blood loss) | Ongoing. On iron replacement with ferrous sulfate 325mg PO BID with meals. Iron studies obtained 04/11/18 with severe iron deficiency. Polysubstance abuse (addiction v educational deficit) | No current clinical evidence of withdrawal. At risk for DVT (hospitalization/immobilization) | On enoxaparin for AC. Plan Continue to hold carvedilol with marginal BPs and ongoing blood loss Continue to hold ACEI with marginal BPs and ongoing blood loss Continue to hold furosemide given euvolemia Continue current IV antibiotics: Daptomycin Continue enoxaparin 70mg BID for anticoagulation, weighing risk:benefit of vaginal bleeding which she states is her menstrual cycle or definitive control with UAE. Continue to evaluate alternatives to enoxaparin (given poor adherence to warfarin in the past) and possible NOAC - by report, PCP working on finding financial assistance program for apixapban Continue oral pain control regimen, with oxycodone 2.5-5mg Q4h PRN Increase insulin glargine to 19U BID Continue every 4 hours vascular checks Rooke boot to RLE Possible uterine artery embolization - spoke with Vascular, who prefers R groin access location, but otherwise no known contraindications CM to look in to dalbavancin 1500mg Q2 weeks for 4 weeks INR and fibrinogen to screen for DIC again today *Spoke with [facility] [phone] and they have inexpensive medications available: Insulin detemir box of 5 pens $15 Insulin aspart box of 5 pens $8 (She has stated she can afford this) Subjective No new complaints this AM. Continues heavy passage of blood. No fever, no chills , no nausea. No lightheadedness, but has been largely bedbound. She continues to demonstrate capacity in decision-making, stating that if off of AC, she could "have a stroke and " and verbalizes an intent to continue taking AC at home once discharged. Review of Systems CONS: No subjective fever, no chills. CVS: No palpitations. No chest pain. RESP: No dyspnea. No cough. GI: No abdominal pain. No diarrhea or constipation. No nausea, no vomiting. : Vaginal bleeding persists. Objective Vital Signs Temp: [36.4 C (97.6 F)-37.2 C (98.9 F)] Pulse: [72-89] Respirations: [13 PER MINUTE-21 PER MINUTE] SpO2 Pulse: [69-90] SpO2: [97 %-100 %] BP: (84-126)/(40-70) I/Os from Yesterday's Shift 08/16 0701 - 08/17 0700 In: 300 Out: 510 [Urine:510] Physical Examination GEN: Alert and oriented x3 (person/place/time), NAD. CVS: S1/S2 audible, no murmurs audible. Appears and feels warm and well- perfused. RESP: Lungs clear to ascultation. No wheezes, rhonchi, nor crackles. GI: Abdomen soft. Non-tender to palpation. SKIN: Warm. Dry. L groin with vac in place. MSK: R leg in boot. L leg BKA. Lab Studies Recent labs reviewed. Notable for: Hemoglobin 6.6 Platelets 186 WBC 11.1 Sodium 131 Potassium 4.4 Chloride 98 Bicarbonate 26 AG 7 BUN 17 Creatinine 0.81 Imaging Studies Recent imaging reviewed. Notable for: CT angiogram of the abdominal aorta with bilateral runoff without and with contrast performed 08/09/2018 with redemonstration of left ventricular mass and completed motion of the left femoral. Also complete occlusion of the right popliteal with collateral reconstitution at the trifurcation vessels which are poorly opacified. Patchy wedge-shaped hypodensities throughout the spleen and left kidney consistent with known splenic and renal emboli. Also increase in size of the fatcontaining umbilical hernia and improvement in diffuse body wall edema. There is moderate luminal narrowing of the infrarenal abdominal aorta without aneurysm. There is an enlarged likely fibroid uterus unchanged from previous exam. There is a small right lung base nodule unchanged from prior exam. PATRIA 08/15/18 w/All apical left ventricular segments appear hypokinetic. Overall left ventricular systolic function is moderately impaired. The estimated left ventricular ejection fraction is 35%. The left ventricle appears mildly enlarged. Right ventricular contractility appears normal. Moderate left atrial enlargement. Mild right atrial enlargement. Cardiac valve structures are unremarkable. Mild tricuspid valve regurgitation is noted by Doppler exam. No valvular vegetations are noted. No perivalvular abscesses noted. No pericardial effusion is seen. A large, mobile left ventricular apical thrombus is noted which measures approximately 2.3 x 2.9 cm in dimensions. A patent foramen ovale is noted by color flow Doppler exam. Microbiological Studies Recent microbiology reviewed. Notable for: Blood culture collected 04/11/2018 negative Blood culture collected 04/11/2018 negative Urine culture collected 04/11/2018 negative MRSA screen 08/09/2018 negative Perirectal VRE swab collected 08/09/2018 negative Blood culture collected 08/09/2018 from the left wrist no growth Blood culture collected 08/10/2018 no growth at 4 days Pathology ThinPrep cytology performed 04/14/2018 low risk HPV Endometrial biopsy performed 04/14/2018 demonstrated minute fragments of benign endometrial epithelium and endocervical glandular mucosa with no evidence of hyperplasia, dysplasia, or malignancy. Discharge Planning/Barriers to Discharge Uninsured, so follow-up may be difficult No future appointments. Daily Rounding Checklist Line necessity Fernández necessity Telemetry necessity PT/OT necessity DME needs evaluated and supplied Diet at highest level IV --> PO medications Teaching needs Pharmacy needs Wound care needs Planned D/C location (Home/LTAC/SNF/Rehab/Other) Branden Torres M.D. Department of Internal Medicine 08/17/2018 10:34 AM Spoke with Vascular Surgeon. Spoke with Community Aide. * Branden Torres MD - 08/17/2018 10:12 AM CDT Spoke with [id number] AM If uterine artery embolization pursued, preference to R groin access. NS * Ebony Angeles OT - 08/17/2018 9:45 AM CDT OCCUPATIONAL THERAPY NOTE Discussed patient's current functional status with RN, RN reported patient continues to be functioning well, at baseline. OT will continue to monitor and provide intervention as needed Discharge recommendation: home with HH Equipment recommendation: none Therapist: [place] [id number] Date: 08/17/2018 * Jennifer Martin - 08/17/2018 5:36 AM CDT Patient Problem called about: (document change in assessment or concern): Pt hgb is 6.6 - up from 6.5 from previous cbc after 1 unit of blood. Time MD/AIR BRAKE WORKER Notified: 033 MD/AIR BRAKE WORKER Name: Benjamin James MD/AIR BRAKE WORKER Response: Order and transfuse 1 unit of blood Interventions: Blood transfused. Continuing to monitor patient * Harpreet Dugan MD - 08/16/2018 3:28 PM CDT Formatting of this note may be different from the original. Daily Progress Note Today's Date: 08/16/2018 Name: Betina Baron Admission Date: 08/09/2018 (LOS: 7 days) Assessment: Betina Baron is a 48 y.o. female with a pmh of DM, LV thrombus who presented from an OSH in [facility] with splenic and renal artery emboli and right and left lower extremity ischemia secondary to left common femoral, profunda, and SFA occlusion and right popliteal and trifurcation occlusion who is now 7 Days Post-Op from Procedure(s) (LRB): LEFT FEMORAL THROMBECTOMY, RIGHT POPLITEAL AND TIBIAL THROMBECTOMY (Bilateral) ( 08/09/2018) with Dr. Mccarthy. Active Problems: Mass of heart Acute systolic CHF (congestive heart failure) (HCC) LV (left ventricular) mural thrombus without ID Polysubstance abuse (HCC) DM (diabetes mellitus) (HCC) Bacteremia due to Gram-positive bacteria Moderate malnutrition (HCC) Plan: - Continue lovenox, anticoagulation and f/u per cardiology - Q4h vascular checks until d/c - Rooke boot to RLE - BLE surgical wounds without signs of bleeding, blood loss is likely related to vaginal bleeding - Provena wound vac will be in place on discharge. The battery will run out approximately 7 days after it is started. At that time she may remove the dressing and leave the area open to air. - please page [phone] with questions Harpreet Dugan MD Pager [phone] Subjective: S/p 1U pRBC's for Hgb 6.2 yesterday. Pain is well-controlled. Patient is not having nausea, has not vomited, is tolerating DIET DIABETIC (STANDARD) CONSISTENT CARB, is ambulating with transfers. Objective: BP: (69-118)/(40-70) Temp: [36.7 C (98 F)-37.1 C (98.7 F)] Pulse: [71-95] Respirations: [12 PER MINUTE-22 PER MINUTE] SpO2: [95 %-100 %] O2 Delivery: None (Room Air) Lab Results Component Value Date/Time NA 133 (L) 08/16/2018 05:35 AM K 4.6 08/16/2018 05:35 AM CL 101 08/16/2018 05:35 AM CO2 27 08/16/2018 05:35 AM BUN 18 08/16/2018 05:35 AM CR 0.78 08/16/2018 05:35 AM MG 1.8 08/09/2018 03:00 PM PO4 2.7 08/09/2018 03:00 PM Lab Results Component Value Date/Time HGB 7.5 (L) 08/16/2018 08:10 AM HCT 23.7 (L) 08/16/2018 08:10 AM WBC 9.5 08/16/2018 08:10 AM PLTCT 206 08/16/2018 08:10 AM INR 0.9 08/15/2018 06:46 PM Lab Results Component Value Date/Time GLUPOC 272 (H) 08/16/2018 11:37 AM GLUPOC 166 (H) 08/16/2018 07:05 AM GLUPOC 155 (H) 08/15/2018 09:08 PM Physical Exam Constitutional: She is oriented to person, place, and time. She appears well- developed and well-nourished. No distress. HENT: Head: Normocephalic and atraumatic. Cardiovascular: Normal rate and intact distal pulses. Pulses: Radial pulses are 2+ on the right side, and 2+ on the left side. Femoral pulses are 2+ on the right side, and 2+ on the left side. Dorsalis pedis pulses are 0 on the right side. Posterior tibial pulses are 0 on the right side. Pulmonary/Chest: Effort normal. No respiratory distress. Abdominal: Soft. She exhibits no distension. There is no tenderness. Musculoskeletal: Normal range of motion. LLE BKA, doppler signals in popliteal RLE with doppler signals in DP and PT Incisions c/d/i covered with dermabond, no erythema or drainage, no hematoma BLE warm without mottling, R toes with residual ischemic change Neurological: She is alert and oriented to person, place, and time. Skin: Skin is warm and dry. Psychiatric: She has a normal mood and affect. Her behavior is normal. Judgment and thought content normal. Harpreet Dugan MD Service Pager: # [phone] * Jill Oseguera RN - 08/16/2018 3:22 PM CDT Order received for a midline, patient would be more appropriate for a PICC line as she is on Daptomycin with frequent lab draws. I called and spoke with Dr. Torres, he advised that a PIV would be okay for the time being. * Branden Torres MD - 08/16/2018 10:33 AM CDT Progress Note - Internal Medicine Brief Clinical Summary 48 y.o.female(PMHx:Polysubstance abuse;DMII;LV thrombus) presented on 08/09/2018 in transfer w/bilateral body pain --> DKA. Multiple emboli (spleen/kidney/L femoral artery). Underewent emergency thrombectomy. PATRIA 08/14/18. GPC bacteremia. Consultants - Cardiology and Vascular Surgery. Assessment (differential diagnosis) | Status Left ventricular thrombus (stasis v heart failure) | Ongoing. Complicated by distal emobolization and infarction of multiple organs. Originally diagnosed at [facility] in [place], [place]. She was diagnosed with an LV thrombus and placed on anticoagulation at the beginning of 2018. Non-adherence to anticoagulation. Verified on PATRIA done 08/14/18 (results below), and no perivalvular abscesses noted. Currently on AC with enoxaparin, and risk:benefit discussions have highlighted need for AC in spite of ongoing vaginal bleeding, which developed at onset of menses. Bilateral lower extremity ischemia (embolization from LV thrombus) | Resolved. S /P Left common femoral, profunda and superficial femoral artery thrombectomy followed by closure with bovine pericardial patch. She underwent thrombectomy of the right SFA, popliteal artery, anterior tibial artery, posterior tibial artery and peroneal artery. Attempted thrombectomy was performed at the right posterior and anterior tibial arteries, however, there were findings of chronic arterial occlusion Vascular Surgery planning to place Provena wound VAC at the time of discharge. They note that the battery will run out approximately 7 days after started and at that time she may remove the dressing and leave the space open to air. ASA on hold. Polymicrobial bacteremia | Clinically improving. Infectious Diseases contacted the hospital in [facility] to request records demonstrating staph aureus, enterococcus (later clarified and speciated to beta-hemolytic strep was the final change), coag negative staph. Currently on daptomycin, with plans for prolonged course. Splenic artery emboli (embolization from LV thrombus) | Noted on CT angiogram performed at the time of presentation. Asymptomatic. Renal artery emboli (embolization from LV thrombus) | Noted on CT angiogram performed at the time of presentation. Asymptomatic. Acute blood loss anemia (vaginal bleeding due to menses) | Stable, but this hospitalization, has required multiple blood transfusions. Chronic systolic heart failure (non-ischemic cardiomyopathy) | Compensated, and improved since 04/11/18. 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 Currently on carvedilol , lisinopril, and furosemide. Echocardiogram 08/10/18 with improvement from ( results below) ~15% to 30%. PATRIA (results below) re-demonstrating clot. Vaginal bleeding (uterine fibroids) | Ongoing, but improving. Last admission, was seen by Gynecology. Has been recommended that she take medroxyprogesterone, but she refuses, citing a concern that it makes her bleed rather than prevent bleeding. DMII (insulin resistance) | Improving control. At presentation, was in DKA. Reports that at home she was on detemir and aspart, but that she had not been prescribed enough. She notes cost-effective options at the [facility] in [place], [place] - called and they in fact have low-cost detemir and aspart. Polysubstance abuse (addiction versus education deficit ) | Pre- contemplative stage of cessation. Endorsed smoking methamphetamine at the time of presentation. UDS at the time of admission was positive for opiates, amphetamines, and methamphetamines at the outside hospital. Denies ongoing IV drug use. Status post left BKA | Well-healed and at her baseline functional level. She uses wheelchair to live in her home independently and gets around without a device. Pulmonary nodule | Stable. Noted on CT angiogram performed 08/09/2018 and described as unchanged as compared to prior exam. Since she is a high risk patient requires CT follow-up in 1 year. Iron deficiency anemia (vaginal blood loss) | Ongoing. On iron replacement with ferrous sulfate 325mg PO BID with meals. Iron studies obtained 04/11/18 with severe iron deficiency. Polysubstance abuse (addiction v educational deficit) | No current clinical evidence of withdrawal. At risk for DVT (hospitalization/immobilization) | On enoxaparin for AC. Plan Continue to hold carvedilol Continue to hold ACEI Continue to hold furosemide Continue current IV antibiotics: Daptomycin Continue enoxaparin 70mg BID for anticoagulation, weighing risk:benefit of vaginal bleeding which she states is her menstrual cycle Continue to evaluate alternatives to enoxaparin (given poor adherence to warfarin in the past) and possible NOAC - by report, PCP working on finding financial assistance program for apixapban Will work on obtaining records for DC summary from [facility] Continue oral pain control regimen, with 33% reduction to oxycodone 2.5-5mg Q4h PRN Increase insulin glargine to 18U BID Gynecology to place IUD and initiate DepoProvera Continue every 4 hours vascular checks Rooke boot to RLE Possible uterine artery embolization CM to look in to dalbavancin 1500mg Q2 weeks for 4 weeks *Spoke with [facility] [phone] and they have inexpensive medications available: Insulin detemir box of 5 pens $15 Insulin aspart box of 5 pens $8 Subjective No new complaints this AM. No fever, no chills, no nausea. Continues to pass large blood clots vaginally. No lightheadedness. States that she understands that off of AC, she could "have a stroke and " and verbalizes an intent to continue taking AC at home. Review of Systems CONS: No subjective fever, no chills. CVS: No palpitations. No chest pain. RESP: No dyspnea. No cough. GI: No abdominal pain. No diarrhea or constipation. No nausea, no vomiting. : Vaginal bleeding persists. Objective Vital Signs Temp: [36.7 C (98 F)-37.1 C (98.7 F)] Pulse: [71-95] Respirations: [9 PER MINUTE-22 PER MINUTE] SpO2 Pulse: [71-95] SpO2: [95 %-100 %] BP: (69-118)/(36-64) I/Os from Yesterday's Shift 08/15 0701 - 08/16 0700 In: 1200 Out: 1300 [Urine:1300] Physical Examination GEN: Alert and oriented x3 (person/place/time), NAD. CVS: S1/S2 audible, no murmurs audible. Appears and feels warm and well- perfused. RESP: Lungs clear to ascultation. No wheezes, rhonchi, nor crackles. GI: Abdomen soft. Non-tender to palpation. SKIN: Warm. Dry. MSK: R leg in boot. L leg BKA. Lab Studies Recent labs reviewed. Notable for: Hemoglobin 7.5 Platelets 206 WBC 9.5 Sodium 133 Potassium 4.6 Chloride 101 Bicarbonate 27 AG 5 BUN 18 Creatinine 0.78 Imaging Studies Recent imaging reviewed. Notable for: CT angiogram of the abdominal aorta with bilateral runoff without and with contrast performed 08/09/2018 with redemonstration of left ventricular mass and completed motion of the left femoral. Also complete occlusion of the right popliteal with collateral reconstitution at the trifurcation vessels which are poorly opacified. Patchy wedge-shaped hypodensities throughout the spleen and left kidney consistent with known splenic and renal emboli. Also increase in size of the fatcontaining umbilical hernia and improvement in diffuse body wall edema. There is moderate luminal narrowing of the infrarenal abdominal aorta without aneurysm. There is an enlarged likely fibroid uterus unchanged from previous exam. There is a small right lung base nodule unchanged from prior exam. PATRIA 08/15/18 w/All apical left ventricular segments appear hypokinetic. Overall left ventricular systolic function is moderately impaired. The estimated left ventricular ejection fraction is 35%. The left ventricle appears mildly enlarged. Right ventricular contractility appears normal. Moderate left atrial enlargement. Mild right atrial enlargement. Cardiac valve structures are unremarkable. Mild tricuspid valve regurgitation is noted by Doppler exam. No valvular vegetations are noted. No perivalvular abscesses noted. No pericardial effusion is seen. A large, mobile left ventricular apical thrombus is noted which measures approximately 2.3 x 2.9 cm in dimensions. A patent foramen ovale is noted by color flow Doppler exam. Microbiological Studies Recent microbiology reviewed. Notable for: Blood culture collected 04/11/2018 negative Blood culture collected 04/11/2018 negative Urine culture collected 04/11/2018 negative MRSA screen 08/09/2018 negative Perirectal VRE swab collected 08/09/2018 negative Blood culture collected 08/09/2018 from the left wrist no growth Blood culture collected 08/10/2018 no growth at 4 days Pathology ThinPrep cytology performed 04/14/2018 low risk HPV Endometrial biopsy performed 04/14/2018 demonstrated minute fragments of benign endometrial epithelium and endocervical glandular mucosa with no evidence of hyperplasia, dysplasia, or malignancy. Discharge Planning/Barriers to Discharge Uninsured, so follow-up may be difficult No future appointments. Daily Rounding Checklist Line necessity Fernández necessity Telemetry necessity PT/OT necessity DME needs evaluated and supplied Diet at highest level IV --> PO medications Teaching needs Pharmacy needs Wound care needs Planned D/C location (Home/LTAC/SNF/Rehab/Other) Branden Torres M.D. Department of Internal Medicine 08/16/2018 10:33 AM * Ravi Torres MD - 08/16/2018 7:54 AM CDT Formatting of this note may be different from the original. Gynecology Progress Note SUBJECTIVE: This morning Ms. Baron continues to complain of heavy bleeding and blood clots. She is open to different management options. She does not want to continue to get blood transfusions and she would like to go home. OBJECTIVE: Patient Vitals for the past 24 hrs: BP Temp Pulse SpO2 08/16/18 0430 116/56 36.7 C (98 F) 83 99 % 08/16/18 0400 - - 83 98 % 08/16/18 0230 99/43 - 71 100 % 08/16/18 0215 107/43 - 81 - 08/16/18 0200 102/56 - 74 99 % 09/19/18 0127 109/64 36.9 C (98.4 F) 81 100 % 19/18 0112 113/63 37.1 C (98.7 F) 72 100 % /18/18 2000 118/59 36.9 C (98.5 F) 79 99 % /18/18 1730 102/48 - 77 99 % 18/18 1720 - 36.7 C (98.1 F) 74 100 % 18/18 1715 101/43 - 76 100 % 18/18 1700 100/51 - 76 99 % /18/18 1645 113/51 - 77 95 % 18/18 1630 117/57 36.7 C (98.1 F) 82 98 % 18/18 1615 102/61 - 95 100 % 18/18 1600 101/48 - 77 97 % 18/18 1550 97/46 - 78 98 % 18/18 1545 97/43 - 76 97 % 18/18 1540 91/40 37 C (98.6 F) 79 97 % 18/18 1535 (!) 69/53 - 80 98 % 18/18 1530 (!) 85/48 36.7 C (98.1 F) 83 97 % 18/18 1515 100/44 - 77 97 % 18/18 1510 109/49 - - - 18/18 1500 (!) 78/36 - 78 98 % 18/18 1445 90/40 - 75 99 % 18/18 1430 (!) 81/43 - 82 99 % 18/18 1415 (!) 77/43 - 76 99 % /18/18 1345 90/43 - 81 99 % /18/18 1330 91/46 - 83 100 % /18/18 1320 103/61 37 C (98.6 F) 83 100 % /18/18 1317 98/61 - 87 100 % /18/18 1315 105/59 - 89 100 % /18/18 1311 - - 85 100 % /18/18 1306 94/50 - - 100 % 18/18 1301 105/59 36.9 C (98.4 F) 90 100 % 08/15/18 0900 - - 85 - Physical Exam: General: No acute distress. Lungs: breathing unlabored Abdomen: Soft, appropriately tender to palpation. Non-distended. Positive bowel sounds. Extremities: Left BKA, r leg in brace Lab Review: 24-hour labs: Results for orders placed or performed during the hospital encounter of (from the past 24 hour(s)) POC GLUCOSE Collection Time: 08/15/18 11:36 AM Result Value Ref Range Glucose, POC 258 (H) 70 - 100 MG/DL POC GLUCOSE Collection Time: 08/15/18 5:42 PM Result Value Ref Range Glucose, POC 164 (H) 70 - 100 MG/DL PROTIME INR (PT) Collection Time: 08/15/18 6:46 PM Result Value Ref Range INR 0.9 0.8 - 1.2 FIBRINOGEN Collection Time: 08/15/18 6:46 PM Result Value Ref Range Fibrinogen 752 (H) 200 - 400 MG/DL CBC Collection Time: 08/15/18 6:46 PM Result Value Ref Range White Blood Cells 9.6 4.5 - 11.0 K/UL RBC 3.41 (L) 4.0 - 5.0 M/UL Hemoglobin 8.6 (L) 12.0 - 15.0 GM/DL Hematocrit 26.9 (L) 36 - 45 % MCV 78.8 (L) 80 - 100 FL MCH 25.2 (L) 26 - 34 PG MCHC 31.9 (L) 32.0 - 36.0 G/DL RDW 28.2 (H) 11 - 15 % Platelet Count 204 150 - 400 K/UL MPV 8.4 7 - 11 FL POC GLUCOSE Collection Time: 08/15/18 9:08 PM Result Value Ref Range Glucose, POC 155 (H) 70 - 100 MG/DL CBC Collection Time: 08/15/18 11:30 PM Result Value Ref Range White Blood Cells 9.6 4.5 - 11.0 K/UL RBC 2.63 (L) 4.0 - 5.0 M/UL Hemoglobin 6.6 (L) 12.0 - 15.0 GM/DL Hematocrit 20.5 (L) 36 - 45 % MCV 78.1 (L) 80 - 100 FL MCH 24.9 (L) 26 - 34 PG MCHC 31.9 (L) 32.0 - 36.0 G/DL RDW 28.6 (H) 11 - 15 % Platelet Count 210 150 - 400 K/UL MPV 7.7 7 - 11 FL COMPREHENSIVE METABOLIC PANEL Collection Time: 08/16/18 5:35 AM Result Value Ref Range Sodium 133 (L) 137 - 147 MMOL/L Potassium 4.6 3.5 - 5.1 MMOL/L Chloride 101 98 - 110 MMOL/L Glucose 163 (H) 70 - 100 MG/DL Blood Urea Nitrogen 18 7 - 25 MG/DL Creatinine 0.78 0.4 - 1.00 MG/DL Calcium 8.4 (L) 8.5 - 10.6 MG/DL Total Protein 5.1 (L) 6.0 - 8.0 G/DL Total Bilirubin 0.4 0.3 - 1.2 MG/DL Albumin 2.4 (L) 3.5 - 5.0 G/DL Alk Phosphatase 88 25 - 110 U/L AST (SGOT) 13 7 - 40 U/L CO2 27 21 - 30 MMOL/L ALT (SGPT) 11 7 - 56 U/L Anion Gap 5 3 - 12 eGFR Non >60 >60 mL/min eGFR >60 >60 mL/min POC GLUCOSE Collection Time: 08/16/18 7:05 AM Result Value Ref Range Glucose, POC 166 (H) 70 - 100 MG/DL Intake/Output Summary (Last 24 hours) at 08/16/18 0754 Last data filed at 08/16/18 0430 Gross per 24 hour Intake 1200 ml Output 1300 ml Net -100 ml Point of Care Testing: (Last 24 hours): FSBS (Manual): (!) 166 (08/16/18 0706) Glucose: (!) 163 (08/16/18 0535) POC Glucose (Download): (!) 166 (08/16/18 5505) ASSESSMENT: Active Problems: Mass of heart Acute systolic CHF (congestive heart failure) (HCC) LV (left ventricular) mural thrombus without ID Polysubstance abuse (HCC) DM (diabetes mellitus) (HCC) Bacteremia due to Gram-positive bacteria Moderate malnutrition (HCC) 48yo admitted for multiple arterial thrombi and bacteremia consult for AUB requiring blood transfusions Co-morbids- anemia, DM, polysubstance use, CHF PLAN: 1. Will place Mirena IUD today. 2. Will also start Depo Lupron today. This is an injection that she will need every 3 months. It may cause menopause symptoms. If vasomotor symptoms develop or become bothersome to patient venlafaxine 75 mg daily 3. Will discuss with IR if uterine artery embolization is an option for the patient. 4. May continue provera while inpatient D/w Dr. Guillermo Torres MD PGY-4 Obstetrics and Gynecology Please page the Gynecology pager at [phone] with any questions or concerns. Thank you. Associated attestation - Pauline Li MD - 08/20/2018 6:51 PM CDT I personally saw and evaluated the patient. I have reviewed and agree with the impressions and care plan as documented. Pauline Li MD * Jennifer Martin - 08/16/2018 12:16 AM CDT Patient Problem called about: (document change in assessment or concern): Hgb 6.6, down from 8.6 at 1846 Time MD/AIR BRAKE WORKER Notified: 0010 MD/AIR BRAKE WORKER Name: Jacob Alexander MD/AIR BRAKE WORKER Response: Order 1 unit of blood Interventions: Blood will be given * Denys Salvador MD - 08/15/2018 8:15 PM CDT Formatting of this note may be different from the original. Infectious Disease Progress Note Name: Betina Baron Today's Date: 08/15/2018 Assessment: 1. Uncontrolled diabetes - reportedly BG levels as high as 800s in recent past - last HgA1C on file at [facility] from 04/11/18 was 10.5 2. Polysubstance abuse - long-term methamphetamine user (smoke); distant crack cocaine use reportedly - Denies IVDA - Patient's UDS was positive for opiates, methamphetamines and amphetamines at OSH - Current ppd tobacco smoker 3. LV Thrombus + arterial emboli / cardiomyopathy - echo (04/11/18): Moderately dilated LV with severely reduced EF=15%. 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 Mild eccentric LV hypertrophy. Normal RV. Moderate LA dilation; mild atrial dilation; elevated CVP; normal valvular structures - Cardiology consulted - carvedilol,lisinopril, spironolactone, lasix - CTA abdomen with aortogram + bilateral runoff (): small pericardial effusion, wedge-shaped defect in segment 7 of the liver, wedge shaped hypodensities throughout the spleen and left kidney consistent with thrombotic events. CTA also demonstrated left ventricular mass consistent with thrombus, complete occlusion of the left proximal femoral and femoral profundus arteries, complete occlusion at the level of the right popliteal artery and enlarged uterus likely secondary to fibroid. - OR (08/09/18): eft common femoral, profunda and superficial femoral artery thrombectomy followed by closure with bovine pericardial patch. She underwent thrombectomy of the right SFA, popliteal artery, anterior tibial artery, posterior tibial artery and peroneal artery. Attempted thrombectomy was performed at the right posterior and anterior tibial arteries, however, there were findings of chronic arterial occlusion 4. Positive blood culture -Per outside hospital "growing GPCs" Called [facility] lab in [place], [place] to request records which show in 1/2 bottles: Pt is currently growning MSSA, MRSE, and Enterococcus (Vanc S) from blood cultures Staph aureus - etiology unknown - Blood cultures have been obtained 08/09 NGTD, and 5. BARRETT estimated creatinine clearance is 80.9 mL/min (based on SCr of 0.9 mg/dL). Cr is double her baseline of 0.5 6. Antimicrobial Intolerance/Sensitivity - Penicillin- said to cause rash, hive, and shortness of breath Recommendations: Please continue: Daptomycin 10mg/kg q24hr while inpatient She is NOT a candidate for a PICC line as outpatient Highly recommend to arrange 2 outpatient infusions of Dalbavancin 1500mg 2 weeks apart, with weekly CBC, diff, CMP. Please have foster care social worker look into this and call [facility] [phone]) if they have questions about patient assisstance program via the business systems architect. While patient did have bacteremia before, pt does not have evidence of bacteremia now, therefore would be safe to receive embolization or coiling if necessary. Blood culture repeats are negative for growth Obtained PATRIA to evaluate for perivalvular abscess and none is seen. ATTESTATION I have seen and examined the patient on 08/15/18. I discussed the case with Dr. Gracia, the Infectious Diseases fellow. I concur with his findings documented in this note. I personally reviewed the history, laboratory and microbiology data as well as imaging studies. The content of this note was modified by me where necessary. Denys Can MD Date: 08/16/2018 __ Interval History Pt having significant bleeding issues. Wishes to go home. Denies fevers, chills. No n/v. Primary service considering embolizing uterine artery/seeking noninvasive approach to bleeding control. wbc-9.6, nl plt-204, nl Creat-0.9, nl Antimicrobial Start date End date Ceftaroline 08/10 08/11 Daptomycin 08/10 Active Estimated Creatinine Clearance: 80.9 mL/min (based on SCr of 0.9 mg/dL). Medications Scheduled Meds: DAPTOmycin (CUBICIN) injection 700 mg 10 mg/kg (Adjusted) Intravenous Q24H* enoxaparin (LOVENOX) syringe 70 mg 70 mg Subcutaneous BID [START ON 08/16/2018] ferrous sulfate (FEOSOL, FEROSUL) tablet 325 mg 325 mg Oral Q48H* insulin aspart U-100 (NOVOLOG FLEXPEN) injection PEN 0-14 Units 0-14 Units Subcutaneous ACHS insulin aspart U-100 (NOVOLOG FLEXPEN) injection PEN 8 Units 8 Units Subcutaneous TID w/ meals insulin glargine (LANTUS SOLOSTAR, BASAGLAR) injection PEN 15 Units 15 Units Subcutaneous BID medroxyprogesterone (proVERA) tablet 10 mg 10 mg Oral BID polyethylene glycol 3350 (MIRALAX) packet 17 g 1 packet Oral BID senna/docusate (SENOKOT-S) tablet 1 tablet 1 tablet Oral BID Continuous Infusions: PRN and Respiratory Meds:benzocaine/menthol Q2H PRN, diphenhydrAMINE/lidocaine/ antacid (#) TID PRN, oxyCODONE Q4H PRN Physical Examination Vital Signs: Last Vital Signs: 24 Hour Range BP: 102/48 (08/15 1730) Temp: 36.7 C (98.1 F) (08/15 1720) Pulse: 77 (08/15 1730) Respirations: 15 PER MINUTE (08/15 1730) SpO2: 99 % (08/15 1730) O2 Delivery: None (Room Air) (08/15 411) SpO2 Pulse: 80 (08/15 1730) BP: (69-117)/(36-69) Temp: [36.7 C (98.1 F)-37.1 C (98.7 F)] Pulse: [74-95] Respirations: [9 PER MINUTE-26 PER MINUTE] SpO2: [95 %-100 %] O2 Delivery: None (Room Air) General appearance:alert, oriented, NAD, unkempt, appears older than stated age HEENT: mucus membranes moist, no oral lesions/thrush;PERRL, EOM grossly intact , Conj nl, largely edentulous with many missing/broken teeth Neck: supple, no lymphadenopathy,thyroid not palpable Lungs:no wheezing, rhonchi, rales appreciated Heart: Regular rhythm, reg rate, with no murmur, rub, gallop Abdomen:soft, non-tender, non-distended, normoactive bowel sounds, no hepatosplenomegaly, no masses Ext:No clubbing, cyanosis or edema, swelling apparent of the right forearm, likely related to IV placement Skin: no rashes/lesions, multiple tattoos throughout the body Lymph:no cervical, axillary or inguinal adenopathy Lines: Laboratory Hematology Recent Labs 08/14/18 2232 08/15/18 0652 08/15/18 1846 WBC 8.6 9.0 9.6 HGB 6.2* 6.6* 8.6* HCT 19.9* 20.6* 26.9* PLTCT 232 240 204 INR -- -- 0.9 Chemistry Recent Labs 08/13/18 0515 08/13/18 1745 08/14/18 0329 08/15/18 0652 NA 131* 129* 131* 130* K 5.8* 5.1 5.1 4.9 CL 99 94* 95* 97* CO2 30 28 30 24 BUN 24 21 21 21 CR 0.88 1.01* 0.95 0.90 GFR >60 58* >60 >60 GLU 199* 278* 230* 259* CA 8.4* 8.7 8.5 8.4* ALBUMIN 2.6* -- 2.7* 2.9* ALKPHOS 134* -- 159* 119* AST 19 -- 20 11 ALT 18 -- 17 8 TOTBILI 0.3 -- 0.3 0.4 Microbiology, Radiology and other Diagnostics Review Microbiology reviewed. Pertinent radiology viewed. Micahel Gracia MD Division of Infectious Diseases * Sade Ibrahim, RD - 08/15/2018 4:57 PM CDT CLINICAL NUTRITION Clinical Nutrition Follow-Up Summary NAME:Betina Baron :1970 AGE : 48 y.o. ADMISSION DATE: 08/09/2018 DAYS ADMITTED: LOS: 6 days Nutrition Assessment of Patient: Malnutrition Assessment: Malnutrition present Current Oral Intake: Marginally Adequate Estimated Calorie Needs: 6410-7539 (28-30 kcals/kg per 68.6kg) Estimated Protein Needs: 86 (1.25 gm/kg per 68.6kg) Oral Diet Order: Diabetic [id number] Kcal/day (75 g Carb/meal, 30 g Carb/HS snack ) ICD-10 code E44: Chronic illness/Moderate non-severe malnutrition Energy intake: < 75% of estimated energy requirement for 1 month or more, Weight loss: 10% x 6 months, Mild loss of body fat, Mild loss of muscle mass Loss of Subcutaneous Fat: Yes Moderate Orbital Muscle Wasting: Yes Moderate Methodist, Clavicle, Interosseous Edema: Yes Mild Right, Lower Extremeties Malnutrition Interventions: Provided diet education, encouraged Pt to follow diet and medical regimen Comments: Betina Baron is a 48 y.o. female with a pmh of DM, polysubstance abuse, LV thrombus, CHF, L BKA, GLENNY who presented from an OSH in [facility] with splenic and renal artery emboli and right and left lower extremity ischemia secondary to left common femoral, profunda, and SFA occlusion and right popliteal and trifurcation occlusion who is now 1 Day Post-Op from left femoral thrombectomy, right popliteal and tibial thrombectomy (bilateral) (08/09/2018). RD consulted for Diet education. Pt reports she has had a decreased appetite for several months, leading to a ~20# weight loss. EMR weight agree showing a 23# weight loss (174 lbs to 151 lbs) since discharge in March, this is a 13% wt loss in 4 months, which is considered severe. Pt noted to have moderate fat and muscle wasting. Along with poor dentition. Pt meets criteria for moderate chronic malnutrition. Pts A1C is 10.3, POC BGs have been 129-343 over the past 24 hours. Pt has been non-compliant with DM diet. Per dog food dough mixer, she continues to fight them for more carbs. Carb limit was increased, but Pt is still asking for more. Nursing is providing more from floor stock to calm patient. Pt sleeping at time of RD visit. RN asked not to wake Pt, as she has been crying a lot today. Pt is wishing to leave, does not seem to care about needing blood transfusions due to passing fist sized clots with her menstrual bleeding. Noted Pt has been eating 100% of meals per medical claims representative. RD has previously reviewed carb counting with Pt this admission, will not attempt to do so again, as it appears that Pt will continue to be non-compliant. Recommendation: Continue current diet as ordered. Recommend follow up with RD at diabetes center. Intervention / Plan: Will monitor PO intake adequacy/ tolerance Will monitor GI function, labs, and weights Nutrition Diagnosis: Inadequate oral intake (resolving) Etiology: related to decrease appetite Signs & Symptoms: RN reports/documentation Altered nutrition-related laboratory values, specify: (A1C 10.3) Etiology: related to diet noncompliance Signs & Symptoms: as evidenced by Pt reports and lab values Goals: Patient to consume >50% of meals Time Frame: Within 72 Hours Status: Met;new goal established Prevent further weight loss Time Frame: Throughout Stay Status: Ongoing Aid in stabilizing blood glucose Time Frame: Prior to Discharge Status: Ongoing Sade Ibrahim MS, RD, LD, [facility] Pager [phone] Office [phone] * Osei Simmons, RN - 08/15/2018 4:23 PM CDT Pt had 1 urine occurrence 500cc. Brief soaked in blood and weighed 375. This occurrence also produced 2 large kidney sized solid clots. Will continue to monitor. * Alta Concepcion, YUSUF - 08/15/2018 3:30 PM CDT OCCUPATIONAL THERAPY Daily Note Pt continues to get up to commode and chair and performing all basic adls with extra time to set up. Pt appears to be getting near her baseline for adls. OT will continue to monitor with any further needs while pt here in hospital. Alta Concepcion, OTR/L [id number] * Ravi Torres MD - 08/15/2018 1:59 PM CDT Gynecology Progress Note Today gynecology was asked to readdress vaginal bleeding with patient. Patient was admitted on 08/09 due to multiple arterial thrombus (spleen, kidney, femoral artery requiring thrombectomy), sepsis (tx w/ daptyomycin), and poorly controled diabetes. Per primary team her bleeding has worsened and she has required 3 units pRBC this admission and last one was today. Hgb this morning is 6.6. Due multiple emboli she needs to be on anti-coagulation with lovenox. Provera has been ordered for patient however she has not been accepting it. TVUS 03/2018- uterus [id number] cm, with intramural/submucosal fibroid measuring 8.4 cm. EMB 04/2018- minute fragments of benign endometrial epithelium, No evidence of hyperplasia. Upon evaluation this even, patient reports heavy bleeding. She passes large clots and changes her pad every time she gets up which is about hourly and the pad is saturated through. She does not know why this is happening and believes it is related to taking iron. Patient is agreeable to management of bleeding. We discussed options today and how each of the options works to decrease bleeding. For now she is willing to take Provera. She received first dose this evening. She will also consider IUD placement. She will also consider uterine artery embolization, however we discussed that it may not be suitable option at this time due to therapeutic anticoagulation and that we will touch base with interventional radiology in the morning. D/w Dr. Guillermo Torres MD PHOTO JOURNALIST PGY-4 [phone] Associated attestation - Pauline Li MD - 08/20/2018 6:45 PM CDT Inpatient consult on existing patient. I personally saw and evaluated the patient. I have reviewed and agree with the impressions and care plan as documented. AUB- fibroids, chronic anticoagulation. Plan for medical management with IR consultation for possible UAE. Not a good candidate for invasive surgery. Greater than 40 minutes were spent at the bedside and on the patient's hospital floor or unit. Pauline Li MD * Osei Simmons RN - 08/15/2018 1:28 PM CDT 1 of 2 PRBC started 1301. No adverse reaction suspected. Pt tolerating well. Will monitor and order 2nd bag when first completes. 1 of 2 completed at 1525. 2 of 2 started 1532. Will continue to monitor. BP's are soft at this time. Will monitor closely. 2 of 2 completed at 1746. Pt tolerated well. Labs drawn and sent 1850. Will continue to monitor * Branden Torres MD - 08/15/2018 12:28 PM CDT Progress Note - Internal Medicine Brief Clinical Summary 48 y.o.female(PMHx:Polysubstance abuse;DMII;LV thrombus) presented on 08/09/2018 in transfer w/bilateral body pain --> DKA. Multiple emboli (spleen/kidney/L femoral artery). Underewent emergency thrombectomy. PATRIA 08/14/18. GPC bacteremia. Consultants - Cardiology and Vascular Surgery. Assessment (differential diagnosis) | Status Left ventricular thrombus (stasis v heart failure) | Ongoing. Complicated by distal emobolization and infarction. Originally diagnosed at [facility] in [place], [place]. She was diagnosed with an LV thrombus and placed on anticoagulation at the beginning of 2017. Non-adherence to anticoagulation.Verified on PATRIA done 08/14/18 (results below), and no perivalvular abscesses noted. Currently on AC with enoxaparin. Bilateral lower extremity ischemia (embolization from LV thrombus) | S/P Left common femoral, profunda and superficial femoral artery thrombectomy followed by closure with bovine pericardial patch. She underwent thrombectomy of the right SFA, popliteal artery, anterior tibial artery, posterior tibial artery and peroneal artery. Attempted thrombectomy was performed at the right posterior and anterior tibial arteries, however, there were findings of chronic arterial occlusion Vascular Surgery planning to place Provena wound VAC at the time of discharge. They note that the battery will run out approximately 7 days after started and at that time she may remove the dressing and leave the space open to air. Polymicrobial bacteremia | Clinically improving. Infectious Diseases contacted the hospital in [facility] to request records demonstrating staph aureus, enterococcus (later clarified and speciated to beta-hemolytic strep was the final change), coag negative staph. Currently on daptomycin, with plans for prolonged course. Splenic artery emboli (embolization from LV thrombus) | Noted on CT angiogram performed at the time of presentation. Asymptomatic. Renal artery emboli (embolization from LV thrombus) | Noted on CT angiogram performed at the time of presentation. Asymptomatic. Acute blood loss anemia (vaginal bleeding due to menses) | Stable, but this hospitalization, has required multiple blood transfusions. Chronic systolic heart failure (non-ischemic cardiomyopathy) | Compensated, and improved since 04/11/18. 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 Currently on carvedilol , lisinopril, and furosemide. Echocardiogram 08/10/18 with improvement from ( results below) ~15% to 30%. PATRIA (results below) re-demonstrating clot. Vaginal bleeding (uterine fibroids) | Ongoing. Last admission, was seen by Gynecology. Has been recommended that she take medroxyprogesterone, but she refuses, citing a concern that it makes her bleed rather than prevent bleeding. DMII (insulin resistance) | Improving control. At presentation, was in DKA. Reports that at home she was on detemir and aspart, but that she had not been prescribed enough. She notes cost-effective options at the [facility] in [place], [place] - [facility] and they in fact have low-cost detemir and aspart. Polysubstance abuse (addiction versus education deficit ) | Pre- contemplative stage of cessation. Endorsed smoking methamphetamine at the time of presentation. UDS at the time of admission was positive for opiates, amphetamines, and methamphetamines at the outside hospital. Denies ongoing IV drug use. Status post left BKA | Well-healed and at her baseline functional level. She uses wheelchair to live in her home independently and gets around without a device. Pulmonary nodule | Stable. Noted on CT angiogram performed 08/09/2018 and described as unchanged as compared to prior exam. Since she is a high risk patient requires CT follow-up in 1 year. Iron deficiency anemia (vaginal blood loss) | Ongoing. On iron replacement with ferrous sulfate 325mg PO BID with meals. Iron studies obtained 04/11/18 with severe iron deficiency. Polysubstance abuse (addiction v educational deficit) | No current clinical evidence of withdrawal. At risk for DVT (hospitalization/immobilization) | On enoxaparin for AC. Plan Continue to hold carvedilol due to hypotension this AM Continue to hold ACEI due to hypotension this AM Continue to hold furosemide due to hypotension this AM Continue current IV antibiotics: Daptomycin Continue enoxaparin 70mg BID for anticoagulation, weighing risk:benefit of vaginal bleeding which she states is her menstrual cycle Continue to evaluate alternatives to enoxaparin (given poor adherence to warfarin in the past) and possible NOAC - by report, PCP working on finding financial assistance program for apixapban Will work on obtaining records for DC summary from [facility] Continue oral pain control regimen, with 25% reduction to oxycodone 5-7.5mg Q4h PRN Increase insulin glargine to 15U BID May need uterine artery embolization and will speak with Gynecology today since she has ongoing blood loss Will need to determine length of AC recommendation, but at a minimum 3 months 2U PRBC today again Continue every 4 hours vascular checks Rooke boot to RLE Await final cultures Hold ASA *Spoke with [facility] [phone] and they have inexpensive medications available: Insulin detemir box of 5 pens $15 Insulin aspart box of 5 pens $8 Subjective No new complaints this AM. Again, today, she states "I'm ready to go home." No fever, no chills, no nausea, no vomiting. No abdominal pain. Continues to pass large clots vaginally. AC ongoing. Review of Systems CONS: No subjective fever, no chills. CVS: No palpitations. No chest pain. RESP: No dyspnea. No cough. GI: No abdominal pain. No diarrhea or constipation. No nausea, no vomiting. : Vaginal bleeding persists. Objective Vital Signs Temp: [36.9 C (98.4 F)-37.3 C (99.2 F)] Pulse: [72-88] Respirations: [10 PER MINUTE-26 PER MINUTE] SpO2 Pulse: [77-98] SpO2: [96 %-98 %] BP: (75-113)/(30-91) I/Os from Yesterday's Shift 08/14 0701 - 08/15 0700 In: 400 [I.V.:400] Out: 900 [Urine:900] Physical Examination GEN: Alert and oriented x3 (person/place/time), NAD. CVS: S1/S2 audible, no murmurs audible. Appears and feels warm and well- perfused. RESP: Lungs clear to ascultation. No wheezes, rhonchi, nor crackles. GI: Abdomen soft. Non-tender to palpation. SKIN: Warm. Dry. MSK: R leg in boot. L leg BKA. Lab Studies Recent labs reviewed. Notable for: Hemoglobin 6.6 [id number] WBC 9.0 Sodium 130 Potassium 4.9 Chloride 97 Bicarbonate 24 AG 9 BUN 21 Creatinine 0.90 Imaging Studies Recent imaging reviewed. Notable for: CT angiogram of the abdominal aorta with bilateral runoff without and with contrast performed 08/09/2018 with redemonstration of left ventricular mass and completed motion of the left femoral. Also complete occlusion of the right popliteal with collateral reconstitution at the trifurcation vessels which are poorly opacified. Patchy wedge-shaped hypodensities throughout the spleen and left kidney consistent with known splenic and renal emboli. Also increase in size of the fatcontaining umbilical hernia and improvement in diffuse body wall edema. There is moderate luminal narrowing of the infrarenal abdominal aorta without aneurysm. There is an enlarged likely fibroid uterus unchanged from previous exam. There is a small right lung base nodule unchanged from prior exam. PATRIA 08/15/18 w/All apical left ventricular segments appear hypokinetic. Overall left ventricular systolic function is moderately impaired. The estimated left ventricular ejection fraction is 35%. The left ventricle appears mildly enlarged. Right ventricular contractility appears normal. Moderate left atrial enlargement. Mild right atrial enlargement. Cardiac valve structures are unremarkable. Mild tricuspid valve regurgitation is noted by Doppler exam. No valvular vegetations are noted. No perivalvular abscesses noted. No pericardial effusion is seen. A large, mobile left ventricular apical thrombus is noted which measures approximately 2.3 x 2.9 cm in dimensions. A patent foramen ovale is noted by color flow Doppler exam. Microbiological Studies Recent microbiology reviewed. Notable for: Blood culture collected 04/11/2018 negative Blood culture collected 04/11/2018 negative Urine culture collected 04/11/2018 negative MRSA screen 08/09/2018 negative Perirectal VRE swab collected 08/09/2018 negative Blood culture collected 08/09/2018 from the left wrist no growth Blood culture collected 08/10/2018 no growth at 4 days Pathology ThinPrep cytology performed 04/14/2018 low risk HPV Endometrial biopsy performed 04/14/2018 demonstrated minute fragments of benign endometrial epithelium and endocervical glandular mucosa with no evidence of hyperplasia, dysplasia, or malignancy. Discharge Planning/Barriers to Discharge Uninsured, so follow-up may be difficult No future appointments. Daily Rounding Checklist Line necessity Fernández necessity Telemetry necessity PT/OT necessity DME needs evaluated and supplied Diet at highest level IV --> PO medications Teaching needs Pharmacy needs Wound care needs Planned D/C location (Home/LTAC/SNF/Rehab/Other) Branden Torres M.D. Department of Internal Medicine 08/15/2018 12:28 PM * Osei Simmons RN - 08/15/2018 9:50 AM CDT Pt continues to have large (golf ball size to fist size) clots vaginally. Unable to collect on pad as gravity when she stands to pivot interferes. Will continue to monitor patient for bleeding. * Harpreet Dugan MD - 08/15/2018 9:49 AM CDT Formatting of this note may be different from the original. Daily Progress Note Today's Date: 08/15/2018 Name: Betina Baron Admission Date: 08/09/2018 (LOS: 6 days) Assessment: Betina Baron is a 48 y.o. female with a pmh of DM, LV thrombus who presented from an OSH in [facility] with splenic and renal artery emboli and right and left lower extremity ischemia secondary to left common femoral, profunda, and SFA occlusion and right popliteal and trifurcation occlusion who is now 6 Days Post-Op from Procedure(s) (LRB): LEFT FEMORAL THROMBECTOMY, RIGHT POPLITEAL AND TIBIAL THROMBECTOMY (Bilateral) ( 08/09/2018) with Dr. Mccarthy. Active Problems: Mass of heart Acute systolic CHF (congestive heart failure) (HCC) LV (left ventricular) mural thrombus without ID Polysubstance abuse (HCC) DM (diabetes mellitus) (HCC) Bacteremia due to Gram-positive bacteria Moderate malnutrition (HCC) Plan: - Continue lovenox, anticoagulation and f/u per cardiology - Q4h vascular checks until d/c - Rooke boot to [facility] wound vac will be in place on discharge. The battery will run out approximately 7 days after it is started. At that time she may remove the dressing and leave the area open to air. - please page [phone] with questions Harpreet Dugan MD Pager [phone] Subjective: S/p 1U pRBC's for Hgb 6.2 yesterday. Pain is well-controlled. Patient is not having nausea, has not vomited, is tolerating DIET DIABETIC (STANDARD) CONSISTENT CARB, is ambulating with transfers. Objective: BP: (75-113)/(30-91) Temp: [36.9 C (98.4 F)-37.3 C (99.2 F)] Pulse: [72-88] Respirations: [10 PER MINUTE-26 PER MINUTE] SpO2: [96 %-98 %] O2 Delivery: None (Room Air) Lab Results Component Value Date/Time NA 130 (L) 08/15/2018 06:52 AM K 4.9 08/15/2018 06:52 AM CL 97 (L) 08/15/2018 06:52 AM CO2 24 08/15/2018 06:52 AM BUN 21 08/15/2018 06:52 AM CR 0.90 08/15/2018 06:52 AM MG 1.8 08/09/2018 03:00 PM PO4 2.7 08/09/2018 03:00 PM Lab Results Component Value Date/Time HGB 6.6 (L) 08/15/2018 06:52 AM HCT 20.6 (L) 08/15/2018 06:52 AM WBC 9.0 08/15/2018 06:52 AM PLTCT 240 08/15/2018 06:52 AM INR 1.1 08/09/2018 08:10 AM Lab Results Component Value Date/Time GLUPOC 271 (H) 08/15/2018 06:52 AM GLUPOC 343 (H) 08/14/2018 08:48 PM GLUPOC 217 (H) 08/14/2018 05:21 PM Physical Exam Constitutional: She is oriented to person, place, and time. She appears well- developed and well-nourished. No distress. HENT: Head: Normocephalic and atraumatic. Cardiovascular: Normal rate and intact distal pulses. Pulses: Radial pulses are 2+ on the right side, and 2+ on the left side. Femoral pulses are 2+ on the right side, and 2+ on the left side. Dorsalis pedis pulses are 0 on the right side. Posterior tibial pulses are 0 on the right side. Pulmonary/Chest: Effort normal. No respiratory distress. Abdominal: Soft. She exhibits no distension. There is no tenderness. Musculoskeletal: Normal range of motion. LLE BKA, doppler signals in popliteal RLE with doppler signals in DP and PT Incisions c/d/i covered with dermabond, no erythema or drainage, no hematoma BLE warm without mottling, R toes with residual ischemic change Neurological: She is alert and oriented to person, place, and time. Skin: Skin is warm and dry. Psychiatric: She has a normal mood and affect. Her behavior is normal. Judgment and thought content normal. Harpreet Dugan MD Service Pager: # [phone] * Katy Hughes RN - 08/14/2018 2:05 PM CDT Formatting of this note may be different from the original. Pre-Operative Assessment for PATRIA or Cardioversion Date of Service: 08/14/2018 Betina Baron is a 48 y.o. y.o. female. : 1970 Procedure to be performed: PATRIA Expected Procedure Date: 08/14/2018 Indication: sepsis Patient appears alert and oriented: Yes NPO: for greater than 8 hours Inpatient IV status: 20 gauge right arm Isolation status: None Last PATRIA date: None Last Cardioversion date: None Anticoagulation Results Anticoagulant: none Missed dose: N/A Last MAC INR Flow Sheet Entry: Last recorded Lab results: INR Date Value Ref Range Status 08/09/2018 1.1 0.8 - 1.2 Final 04/18/2018 1.2 0.8 - 1.2 Final 04/17/2018 1.2 0.8 - 1.2 Final 04/16/2018 1.3 (H) 0.8 - 1.2 Final 04/15/2018 1.1 0.8 - 1.2 Final 04/14/2018 1.1 0.8 - 1.2 Final APTT Date Value Ref Range Status 08/10/2018 21.9 20.0 - 36.0 SEC Final Comment: NOTE NEW REFERENCE RANGES Allergies Allergies Allergen Reactions Pcn [Penicillins] HIVES, RASH and SHORTNESS OF BREATH Vitals Estimated body mass index is 21.06 kg/m as calculated from the following: Height as of this encounter: 1.803 m (5' 11"). Weight as of this encounter: 68.5 kg (151 lb). Diagnostic Tests White Blood Cells Date Value Ref Range Status 08/14/2018 9.6 4.5 - 11.0 K/UL Final Hemoglobin Date Value Ref Range Status 08/14/2018 7.2 (L) 12.0 - 15.0 GM/DL Final Hematocrit Date Value Ref Range Status 08/14/2018 23.7 (L) 36 - 45 % Final Platelet Count Date Value Ref Range Status 08/14/2018 257 150 - 400 K/UL Final Sodium Date Value Ref Range Status 08/14/2018 131 (L) 137 - 147 MMOL/L Final Potassium Date Value Ref Range Status 08/14/2018 5.1 3.5 - 5.1 MMOL/L Final Magnesium Date Value Ref Range Status 08/09/2018 1.8 1.6 - 2.6 mg/dL Final Blood Urea Nitrogen Date Value Ref Range Status 08/14/2018 21 7 - 25 MG/DL Final Creatinine Date Value Ref Range Status 08/14/2018 0.95 0.4 - 1.00 MG/DL Final Glucose Date Value Ref Range Status 08/14/2018 230 (H) 70 - 100 MG/DL Final Blood Cultures Microbiology - Resulted Micro Last 72 Hrs CULTURE-BLOOD W/SENSITIVITY Resulted: 08/14/18 0537, Result status: Preliminary result Ordering provider: Raul Burger MD 08/09/18 0445 Resulting lab: MAIN LAB Specimen Information Source Collected On Blood 08/09/18 0515 Components Component Value Flag Battery Name BLOOD CULTURE Specimen Description -- Result: BLOOD LEFT WRIST aerobic bottle only Special Requests -- Result: Culture performed on specimen with less than the recommended volume of 10 ml/bottle. Decreased volume will affect sensitivity of culture. Culture NO GROWTH 5 DAYS Report Status -- CULTURE-BLOOD W/SENSITIVITY Resulted: 08/14/18 0537, Result status: Preliminary result Ordering provider: Chau Gomez MD 08/10/18 0709 Resulting lab: MAIN LAB Specimen Information Source Collected On Blood 08/10/18 0820 Components Component Value Flag Battery Name BLOOD CULTURE Specimen Description -- Result: BLOOD LEFT ANTECUBITAL Special Requests NONE Culture NO GROWTH 4 DAYS Report Status -- Echo procedures within the past 30 days: No results found. Device Information on File No results found for: GENERATOR, EPDEVTYP Current Medications No current facility-administered medications on file prior to encounter. Current Outpatient Prescriptions on File Prior to Encounter Medication Sig Dispense Refill aspirin EC 81 mg tablet Take 1 tablet by mouth daily. Take with food. 90 tablet 3 atorvastatin (LIPITOR) 80 mg tablet Take 1 tablet by mouth daily. 30 tablet 0 carvedilol (COREG) 3.125 mg tablet Take 1 tablet by mouth twice daily. Take with food. 60 tablet 0 enoxaparin (LOVENOX) 80 mg syrg Inject 0.8 mL under the skin twice daily. 11.2 mL 0 furosemide (LASIX) 40 mg tablet Take 1 tablet by mouth daily. 30 tablet 0 insulin aspart U-100 (NOVOLOG FLEXPEN) 100 unit/mL injection PEN Inject 8 Units under the skin three times daily with meals. 45 mL 3 insulin detemir(+) (LEVEMIR FLEXTOUCH U-100 INSULN) 100 unit/mL (3 mL) injection pen Inject 30 Units under the skin at bedtime daily. lisinopril (PRINIVIL, ZESTRIL) 2.5 mg tablet Take 1 tablet by mouth daily. 30 tablet 0 metFORMIN (GLUCOPHAGE) 500 mg tablet Take 500 mg by mouth twice daily with meals. nystatin (NYSTOP) 100,000 unit/g topical powder Apply to pannus twice daily 15 g 0 oxyCODONE (ROXICODONE, OXY-IR) 5 mg tablet Take 1-2 tablets by mouth every 12 hours as needed For pain 15 tablet 0 spironolactone (ALDACTONE) 25 mg tablet Take 1 tablet by mouth twice daily. Take with food. 60 tablet 0 vitamins, multi w/minerals 9 mg iron-400 mcg tab Take 1 tablet by mouth daily. warfarin (COUMADIN) 7.5 mg tablet Take 1 tablet by mouth at bedtime daily. 30 tablet 0 Past Medical History Past Medical History: Diagnosis Date DM (diabetes mellitus) (HCC) Polysubstance abuse (HCC) Past Surgical History Past Surgical History: Procedure Laterality Date HX THROMBECTOMY Bilateral 08/09/2018 LEFT FEMORAL THROMBECTOMY, RIGHT POPLITEAL AND TIBIAL THROMBECTOMY performed by Kim Mccarthy MD at Main OR/Periop HX BELOW KNEE AMPUTATION Social History Social History Substance Use Topics Smoking status: Current Every Day Smoker Packs/day: 1.00 Years: 20.00 Types: Cigarettes Smokeless tobacco: Never Used Alcohol use No Additional Comments: None Probe Assessment (only for PATRIA procedures): Positive for: none Sedation Assesssement Positive for: drugs * Katy Hughes RN - 08/14/2018 2:04 PM CDT Formatting of this note may be different from the original. Care Plan Care Category & Patient Outcome Goal Met Treatment/ Interventions Plan of the Day RN Name Cardiovascular Hemodynamic stability and adequate peripheral perfusion. Yes Refer to patient's chart. Monitor VS per sedation standard. Monitor ECG continuously. Assess/maintain IV patency. Katy Hughes RN Respiratory Patent airway, ease of respiration, and adequate oxygenation. Yes Refer to patient's chart. Maintain open airway. Assess respirations. Monitor O2 saturations. Titrate O2 to keep sat>=95% or baseline. Katy Hughes RN Psychological/Emotional/Spiritual [place] with procedure with support in place. Spiritual needs are addressed. Yes Refer to patient's chart. Provide adequate and thorough instructions. Provide a caring and supportive environment. Communicate patients concerns with other members of the health team. Kayt Hughes RN Pain Patients pain goal met. Yes Refer to patient's chart. Prepare patient for potentially uncomfortable procedure. Observe for verbal/nonverbal complaints of pain. Assess pain. Provide comfort measures. Katy Hughes RN Safety/Fall Risk Free from injury, security maintained. Yes High Risk Refer to patient's chart. Follow nursing standard of practice for high risks fall patients. Katy Hughes RN Knowledge Base Verbalize understanding of procedure/information provided. Yes Refer to patient's chart. Describe the procedure along with what symptoms to expect. Evaluate patients understanding of procedure. Encourage patient to ask questions. Provide additional information as needed. Katy Hughes RN * Branden Torres MD - 08/14/2018 11:01 AM CDT Formatting of this note may be different from the original. Progress Note - Internal Medicine Brief Clinical Summary 48 y.o.female(PMHx:Polysubstance abuse;DMII;LV thrombus) presented on 08/09/2018 in transfer w/bilateral body pain --> DKA. Multiple emboli (spleen/kidney/L femoral artery). Underewent emergency thrombectomy. PATRIA 08/14/18. GPC bacteremia. Consultants - Cardiology and Vascular Surgery. Assessment (differential diagnosis) | Status Left ventricular thrombus (stasis v heart failure) | Ongoing. Complicated by distal emobolization and infarction. Originally diagnosed at [facility] in [place], [place]. She was diagnosed with an LV thrombus and placed on anticoagulation at the beginning of 2018. Non-adherence to any coagulation. Currently on AC with enoxaparin. Bilateral lower extremity ischemia (embolization from LV thrombus) | S/P Left common femoral, profunda and superficial femoral artery thrombectomy followed by closure with bovine pericardial patch. She underwent thrombectomy of the right SFA, popliteal artery, anterior tibial artery, posterior tibial artery and peroneal artery. Attempted thrombectomy was performed at the right posterior and anterior tibial arteries, however, there were findings of chronic arterial occlusion Vascular Surgery planning to place Provena wound VAC at the time of discharge. They note that the battery will run out approximately 7 days after started and at that time she may remove the dressing and leave the space open to air. Polymicrobial bacteremia | Clinically improving. Infectious Diseases contacted the hospital in [facility] to request records demonstrating staph aureus, enterococcus (later clarified and speciated to beta-hemolytic strep was the final change), coag negative staph. Currently on daptomycin. Splenic artery emboli (embolization from LV thrombus) | Noted on CT angiogram performed at the time of presentation. Asymptomatic. Renal artery emboli (embolization from LV thrombus) | Noted on CT angiogram performed at the time of presentation. Asymptomatic. Acute blood loss anemia (vaginal bleeding v OR) | Stable, but this hospitalization, has required 3U PRBCs in total. Chronic systolic heart failure (non-ischemic cardiomyopathy) | Compensated, and improved since 04/11/18. 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 Currently on carvedilol , lisinopril, and furosemide. Echocardiogram 08/10/18 with improvement from ( results below) ~15% to 30%. Vaginal bleeding (uterine fibroids) | Ongoing. Last admission, was seen by Gynecology. Has been recommended that she take medroxyprogesterone, but she refuses, citing a concern that it makes her bleed rather than prevent bleeding. DMII (insulin resistance) | Improving control. At presentation, was in DKA. Reports that at home she was on detemir and aspart, but that she had not been prescribed enough. She notes cost-effective options at the [facility] in [place], [place]. Polysubstance abuse (addiction versus education deficit ) | Pre- contemplative stage of cessation. Endorsed smoking methamphetamine at the time of presentation. UDS at the time of admission was positive for opiates, amphetamines, and methamphetamines at the outside hospital. Denies ongoing IV drug use. Status post left BKA | Well-healed and at her baseline functional level. She uses wheelchair to live in her home independently and pelvis without a device. Pulmonary nodule | Stable. Noted on CT angiogram performed 08/09/2018 and described as unchanged as compared to prior exam. Since she is a high risk patient requires CT follow-up in 1 year. Iron deficiency anemia (vaginal blood loss) | Ongoing. On iron replacement with ferrous sulfate 325mg PO BID with meals. Iron studies obtained 04/11/18 with severe iron deficiency. Polysubstance abuse (addiction v educational deficit) | No current clinical evidence of withdrawal. At risk for DVT (hospitalization/immobilization) | On enoxaparin for AC. Plan Hold carvedilol due to hypotension this AM Hold ACEI due to hypotension this AM Hold furosemide due to hypotension this AM Continue current IV antibiotics: Daptomycin Continue enoxaparin 70mg BID for anticoagulation PATRIA today Continue to evaluate alternatives to enoxaparin, given poor adherence to warfarin in the past and possible (PCP working on finding financial assistance program for apixapban) Here Will work on obtaining records for DC summary from [facility] Will look into follow-up for insulin with [facility] in [place], [place] Continue oral pain control regimen, with 25% reduction to oxycodone 5-7.5mg Q4h PRN Switch to basal-bolus regimen for insulin, given that she may have more outpatient insulin options than originally thought. Close monitoring of pad bleeding volume May need uterine artery embolization Will need to determine length of AC recommendation, but at a minimum 3 months CBC Q12 and if further vaginal bleeding, we will have to revisit the idea of uterine artery embolization Continue every 4 hours vascular checks Rooke boot to RLE Await final cultures *Spoke with [facility] [phone] and they have inexpensive medications available: Insulin detemir box of 5 pens $15 Insulin aspart box of 5 pens $8 Subjective No new complaints this AM. "I'm ready to go home." No fever, no chills, no nausea, no vomiting. Pain controlled. No worsening bleeding, but having continued vaginal bleeding that she states "is not bad." Review of Systems CONS: No subjective fever, no chills. CVS: No palpitations. No chest pain. RESP: No dyspnea. No cough. GI: No abdominal pain. No diarrhea or constipation. No nausea, no vomiting. Objective Vital Signs Temp: [36.8 C (98.2 F)-37.2 C (99 F)] Pulse: [72-98] Respirations: [14 PER MINUTE-26 PER MINUTE] SpO2 Pulse: [75-79] SpO2: [95 %-100 %] BP: (82-131)/(52-73) I/Os from Yesterday's Shift 08/13 0701 - 08/14 0700 In: 1054 [P.O.:720; I.V.:20] Out: 930 [Urine:930] Physical Examination GEN: Alert and oriented x3 (person/place/time), NAD. CVS: S1/S2 audible, no murmurs audible. Appears and feels warm and well- perfused. RESP: Lungs clear to ascultation. No wheezes, rhonchi, nor crackles. GI: Abdomen soft. Non-tender to palpation. SKIN: Warm. Dry. MSK: R leg in boot. L leg BKA. Lab Studies Recent labs reviewed. Notable for: Hemoglobin 7.2 Platelets 257 WBC 9.6 Sodium 131 Potassium 5.1 Chloride 95 Bicarbonate 30 AG 6 BUN 21 Creatinine 0.95 Imaging Studies Recent imaging reviewed. Notable for: CT angiogram of the abdominal aorta with bilateral runoff without and with contrast performed 08/09/2018 with redemonstration of left ventricular mass and completed motion of the left femoral. Also complete occlusion of the right popliteal with collateral reconstitution at the trifurcation vessels which are poorly opacified. Patchy wedge-shaped hypodensities throughout the spleen and left kidney consistent with known splenic and renal emboli. Also increase in size of the fatcontaining umbilical hernia and improvement in diffuse body wall edema. There is moderate luminal narrowing of the infrarenal abdominal aorta without aneurysm. There is an enlarged likely fibroid uterus unchanged from previous exam. There is a small right lung base nodule unchanged from prior exam. Microbiological Studies Recent microbiology reviewed. Notable for: Blood culture collected 04/11/2018 negative Blood culture collected 04/11/2018 negative Urine culture collected 04/11/2018 negative MRSA screen 08/09/2018 negative Perirectal VRE swab collected 08/09/2018 negative Blood culture collected 08/09/2018 from the left wrist no growth Blood culture collected 08/10/2018 no growth at 4 days Pathology ThinPrep cytology performed 04/14/2018 low risk HPV Endometrial biopsy performed 04/14/2018 demonstrated minute fragments of benign endometrial epithelium and endocervical glandular mucosa with no evidence of hyperplasia, dysplasia, or malignancy. Discharge Planning/Barriers to Discharge Uninsured, so follow-up may be difficult Future Appointments Date Time Provider Department Center 08/14/2018 1:45 PM [facility] Daily Rounding Checklist Line necessity Fernández necessity Telemetry necessity PT/OT necessity DME needs evaluated and supplied Diet at highest level IV --> PO medications Teaching needs Pharmacy needs Wound care needs Planned D/C location (Home/LTAC/SNF/Rehab/Other) Branden Torres M.D. Department of Internal Medicine 08/14/2018 11:01 AM * Harpreet Dugan MD - 08/14/2018 9:48 AM CDT Formatting of this note may be different from the original. Daily Progress Note Today's Date: 08/14/2018 Name: Betina Baron Admission Date: 08/09/2018 (LOS: 5 days) Assessment: Betina Baron is a 48 y.o. female with a pmh of DM, LV thrombus who presented from an OSH in [facility] with splenic and renal artery emboli and right and left lower extremity ischemia secondary to left common femoral, profunda, and SFA occlusion and right popliteal and trifurcation occlusion who is now 5 Days Post-Op from Procedure(s) (LRB): LEFT FEMORAL THROMBECTOMY, RIGHT POPLITEAL AND TIBIAL THROMBECTOMY (Bilateral) ( 08/09/2018) with Dr. Mccarthy. Active Problems: Mass of heart Acute systolic CHF (congestive heart failure) (HCC) LV (left ventricular) mural thrombus without ID Polysubstance abuse (HCC) DM (diabetes mellitus) (HCC) Bacteremia due to Gram-positive bacteria Moderate malnutrition (HCC) Plan: - Continue lovenox, anticoagulation and f/u per cardiology - Q4h vascular checks until d/c - Rooke boot to RLE - appropriate for discharge home from vascular surgery standpoint - Provena wound vac will be in place on discharge. The battery will run out approximately 7 days after it is started, at that time she may remove the dressing and leave the area open to air. - please page [phone] with questions Harpreet Dugan MD Pager [phone] Subjective: No acute events overnight. Pain is well-controlled. Patient is not having nausea , has not vomited, is tolerating Diet NPO, is ambulating with transfers. Objective: BP: (82-131)/(52-73) Temp: [36.8 C (98.2 F)-37.2 C (99 F)] Pulse: [72-98] Respirations: [14 PER MINUTE-26 PER MINUTE] SpO2: [95 %-100 %] O2 Delivery: None (Room Air) Lab Results Component Value Date/Time NA 131 (L) 08/14/2018 03:29 AM K 5.1 08/14/2018 03:29 AM CL 95 (L) 08/14/2018 03:29 AM CO2 30 08/14/2018 03:29 AM BUN 21 08/14/2018 03:29 AM CR 0.95 08/14/2018 03:29 AM MG 1.8 08/09/2018 03:00 PM PO4 2.7 08/09/2018 03:00 PM Lab Results Component Value Date/Time HGB 7.2 (L) 08/14/2018 03:29 AM HCT 23.7 (L) 08/14/2018 03:29 AM WBC 9.6 08/14/2018 03:29 AM PLTCT 257 08/14/2018 03:29 AM INR 1.1 08/09/2018 08:10 AM Lab Results Component Value Date/Time GLUPOC 251 (H) 08/14/2018 07:22 AM GLUPOC 132 (H) 08/13/2018 08:28 PM GLUPOC 296 (H) 08/13/2018 05:31 PM Physical Exam Constitutional: She is oriented to person, place, and time. She appears well- developed and well-nourished. No distress. HENT: Head: Normocephalic and atraumatic. Cardiovascular: Normal rate and intact distal pulses. Pulses: Radial pulses are 2+ on the right side, and 2+ on the left side. Femoral pulses are 2+ on the right side, and 2+ on the left side. Dorsalis pedis pulses are 0 on the right side. Posterior tibial pulses are 0 on the right side. Pulmonary/Chest: Effort normal. No respiratory distress. Abdominal: Soft. She exhibits no distension. There is no tenderness. Musculoskeletal: Normal range of motion. LLE BKA, doppler signals in popliteal RLE with doppler signals in DP and PT Incisions c/d/i covered with dermabond BLE warm without mottling, R toes with residual ischemic change Neurological: She is alert and oriented to person, place, and time. Skin: Skin is warm and dry. Psychiatric: She has a normal mood and affect. Her behavior is normal. Judgment and thought content normal. Harpreet Dugan MD Service Pager: # [phone] * Aleyda Reeder, PT - 08/14/2018 8:51 AM CDT PHYSICAL THERAPY PROGRESS NOTE MOBILITY: Progressive Mobility Level: Active transfer to chair Level of Assistance: Stand by assistance Assistive Device: None Time Tolerated: 11-30 minutes Activity Limited By: Patient request to stop SUBJECTIVE: Significant hospital events: PMHx: L BKA, polysubstance abuse, uncontrolled diabetes, left ventricular thrombus. Admitted from an OSH transfer with chief complaint of left-sided and right-sided pain and noticed to be in DKA, multiple emboli including splenic emboli, renal artery emboli, left femoral artery thrombus with complete occlusion. s/p left femoral thrombectomy and right popliteal and tibial thrombectomy on 08/09. Mental / Cognitive Status: Alert;Oriented;Follows Commands Pain: Patient has no complaint of pain Pain Interventions: Patient agrees to participate in therapy R LE Precautions: Elevate (Rooke boot on in bed) Ambulation Assist: Primary Wheelchair User;Independent Mobility at Household Level with Device Patient Owned Equipment: Manual Wheelchair Home Situation: Lives with Family Type of Home: House Entry Stairs: 1-2 Stairs In-Home Stairs: No Stairs Comments: Patient reports she performs mobility at wheelchair level around her home independently. She stand pivots without a device. Her wheelchair does not fit in the bathroom so she stands, holding onto furniture/doorway to toilet. She reports she bumps up/down the stairs at her home on her bottom. BED MOBILITY/TRANSFERS: Bed Mobility: Supine to Sit: Independent Bed Mobility: Sit to Supine: Independent Transfer Type: Sit to/from Stand;Stand Pivot Transfer: Assistance Level: To/From;Bed;Wheelchair;Standby Assist Transfer: Assistive Device: None Transfers: Type Of Assistance: For Safety Considerations End Of Activity Status: In Bed Comments: Therapist educated on importance of demonstrating transfer abilities. Per patient report on eval, was not using a walker at baseline. Patient now reports that she does own a walker if needed. Patient agreeable to demonstrate how she normally transfers at home but she requests to get back in bed and not stay up in chair. Patient pulls wheelchair almost directly in front of her. uses arm rests of chair to stand, and then pivots around to sitting position. She then uses hands on bed to stand and pivot back over to the bed. Patient is not interested in therapist education on potential safer transfer methods. ACTIVITY/EXERCISE: Patient doffs sweat pants supine in bed and dons scrub pants independently. She then removes sock and places nonskid sock on right foot. She removes and replaces (at end of session) Rooke boot independently. therapist assisted patient to utilize the crossbody strap that comes with her wound vac to further her independence. EDUCATION: Educated on importance of wearing Rooke boot at all times when not standing/ transferring. Also educated on importance of elevating RLE except when transferring/standing. Patient reports her wheelchair does not have leg rests so therapist discussed other options for elevation (coffee table, couch, chair, etc). Patient receptive to education and demonstrated Rooke boot donning/ doffing and elevating RLE on a pillow in bed. Also provided instruction for patient to have family bump her wheelchair up and down the stairs at home - she reports she is familiar with this and will have them do this upon discharge. ASSESSMENT/PROGRESS: Patient able to complete transfer without assist, without device this date. She is likely close to her baseline mobility at this time. AM-PAC 6 Clicks Basic Mobility Inpatient Turning [...] your arms (e.g. wheelchair, or bedside chair): None To walk in hospital room: A Lot Climbing 3-5 steps with a railing: A Lot Basic Mobility CMS 0-100%: 33.32 CMS G Code Modifier for Basic Mobility: CJ GOALS: Goal Formulation: With Patient Time For Goal Achievement: 6 days Pt Will Go Supine To/From Sit: w/ Stand By Assist, Met Pt Will Transfer Bed/Chair: w/ Stand By Assist, Met Pt Will Transfer Sit to Stand: w/ Stand By Assist, Met Pt Will Propel Wheelchair: >150 Feet, Independently PLAN: Treatment Interventions: Mobility Training;Strengthening;ROM Plan Frequency: 5-7 Days per Week PT Plan for Next Visit: Patients mobility has progressed appropriately for discharge home. If patient remains in the hospital, continue transfer training and assess wheelchair mobility RECOMMENDATIONS: PT Discharge Recommendations: Home with Assistance Equipment Recommendations: Patient owns necessary equipment;Roller Walker; Wheelchair Comments: Patient reports her daughter, cousin, and friend will be there to assist at all times if needed. Therapist: Aleyda Reeder, PT, DPT Date: 08/14/2018 * Bryanna Mccullough, PT - 08/13/2018 4:10 PM CDT PHYSICAL THERAPY PROGRESS NOTE MOBILITY: Mobility Progressive Mobility Level: Active transfer to chair Level of Assistance: Stand by assistance Assistive Device: Walker Time Tolerated: 0-10 minutes SUBJECTIVE: Subjective Significant hospital events: PMHx: L BKA, polysubstance abuse, uncontrolled diabetes, left ventricular thrombus. Admitted from an OSH transfer with chief complaint of left-sided and right-sided pain and noticed to be in DKA, multiple emboli including splenic emboli, renal artery emboli, left femoral artery thrombus with complete occlusion. s/p left femoral thrombectomy and right popliteal and tibial thrombectomy on 08/09. Mental / Cognitive Status: Alert;Oriented;Follows Commands Pain: Patient has no complaint of pain Pain Interventions: Patient agrees to participate in therapy;Treatment altered to patient's pain tolerance Comments: patient reports doing several commode to bed transfers today, on phone call with family during visit but agreeable to performing transfer R LE Precautions: Elevate (Rooke boot on in bed) Ambulation Assist: Primary Wheelchair User;Independent Mobility at Household Level with Device Patient Owned Equipment: Manual Wheelchair Home Situation: Lives with Family Type of Home: House Entry Stairs: 1-2 Stairs In-Home Stairs: No Stairs Comments: Patient reports she performs mobility at wheelchair level around her home independently. She stand pivots without a device. Her wheelchair does not fit in the bathroom so she stands, holding onto furniture/doorway to toilet. She reports she bumps up/down the stairs at her home on her bottom. BED MOBILITY/TRANSFERS: Bed Mobility/Transfers Bed Mobility: Supine to Sit: Modified Independent;Head of Bed Elevated Transfer Type: Sit to/from Stand Transfer: Assistance Level: To/From;Bed;Commode;Standby Assist Transfer: Assistive Device: Roller Walker Transfers: Type Of Assistance: For Balance;For Safety Considerations End Of Activity Status: In Bed Comments: pt uses L residual limb for balance on bed to come to standing position ASSESSMENT/PROGRESS: Assessment/Progress Comments: Improvement with transfers today using walker. AM-PAC 6 Clicks Basic Mobility Inpatient Turning from your back to your side while in a flat bed without using bed rails : None Moving from lying on your back to sitting on the side of a flatbed without using bedrails : None Moving to and from a bed to a chair (including a wheelchair): A Little Standing up from a chair using your arms (e.g. wheelchair, or bedside chair): A Little To walk in hospital room: Total Climbing 3-5 steps with a railing: Total Raw Score: 16 Standardized (T-scale) Score: 38.32 Basic Mobility CMS 0-100%: 47.12 CMS G Code Modifier for Basic Mobility: CK GOALS: Goals Goal Formulation: With Patient Time For Goal Achievement: 6 days Pt Will Go Supine To/From Sit: w/ Stand By Assist, Ongoing Pt Will Transfer Bed/Chair: w/ Stand By Assist, Ongoing Pt Will Transfer Sit to Stand: w/ Stand By Assist, Ongoing Pt Will Propel Wheelchair: >150 Feet, Independently PLAN: Plan Treatment Interventions: Mobility Training;Strengthening;ROM Plan Frequency: 5-7 Days per Week PT Plan for Next Visit: Continue bed mobility from flat bed, stand pivot transfers. Educate on family bumping pt up/down stairs in wheelchair. Potential stand pivot without walker or get walker for home RECOMMENDATIONS: PT Discharge Recommendations PT Discharge Recommendations: Home with Assistance;Home Health Setting (pending progress) Equipment Recommendations: Roller Walker Comments: Patient has no benefits for inpatient placement. She will need to progress to standby assist in order to safely discharge home. She reports her daughter (31 y/o) will be home with her throughout the day and available to provide assist. Therapist: Bryanna Mccullough, PT Date: 08/13/2018 * Chau Gomez MD - 08/13/2018 11:50 AM CDT Formatting of this note may be different from the original. General Progress Note Name: Betina aBron Today's Date: 08/13/2018 Admission Date: 08/09/2018 LOS: 4 days Assessment/Plan: Active Problems: Mass of heart Acute systolic CHF (congestive heart failure) (HCC) LV (left ventricular) mural thrombus without ID Polysubstance abuse (HCC) DM (diabetes mellitus) (HCC) Bacteremia due to Gram-positive bacteria Moderate malnutrition (HCC) 48-year-old female with past medical history of polysubstance abuse, uncontrolled diabetes, left ventricular thrombus comes in as outside hospital transfer with chief complaint of left-sided and right-sided pain and noticed to be in DKA, multiple emboli including splenic emboli, renal artery emboli, left femoral artery thrombus with complete occlusion. Multiple arterial thrombus/B/L LE Ischemia -Patient with known left ventricular thrombus, noncompliant on her anticoagulation -Outside hospital report showing left renal artery emboli, splenic emboli, left femoral artery thrombus with occlusion -Last CTA of the abdomen pelvis at 04/01/2018 here at [facility] shows only left ventricular thrombus -CTA on admission:Left ventricular mass is redemonstrated, consistent with known thrombus.Known complete occlusion of the left femoral rate. Complete occlusion of the right popliteal artery with collateral reconstitution of the trifurcation vessels which are poorly opacified.Patchy wedge-shaped hypodensities throughout the spleen and left kidney consistent with known splenic and renal emboli. Increase in size in fat-containing umbilical hernia and improvement in diffuse body wall edema. Moderate luminal narrowing of the infrarenal abdominal aorta without aneurysm.Enlarged likely fibroid uterus, unchanged from prior exam. If abnormal there is uterine bleeding, dedicated ultrasound exam is recommended. Small right lung base nodule is identified that is unchanged from the prior exam. - IV heparin switched to Lovenox. -patient is non complaint with coumadin and INR checks, coumadin is not a good option. I discussed with her PCP who will start working on financial assistance program for xarelto , if we could give her a month supply. Need to notify him on discharge -d/w SW/NCM -Will switch to po eliquis in next few days. NCM will be able to give her free coupon for a month. -vascular surgery Consulted, -s/p LEFT FEMORAL THROMBECTOMY, RIGHT POPLITEAL AND TIBIAL THROMBECTOMY 08/09 -pain controlled with po oxy Bowel regimen Sepsis/GPC bacteremia -afebrilet, leukocytosis improved -blood c/s /- from OSH reportedly growing GPC and other set no growth -on IV antibiotics: started on vanc and cefepime, switched to Dapto and ceftaroline(08/10) , now on dapto only -repeat Blood cultures x2-NGTD -ID consult -check PATRIA on tuesday -also will need fdc abx, -complicated situation , no insurance. She may no stay in stay in the hospital for entire course -d/w SW about financial assistance Hyperkalemia -k 5.8 -d/c aldactone 08/12 -cont lasix -repeat kayexalate 15 g x1 -monitor k Hyponatremia -likely from CHF -stable -monitor Uncontrolled diabetes -off insulin gtt IV - hba1c:10.3 -patient has no insurance cannot afford lantus , cont Novolin 70/30 30 bid, ISS -Diabetes nurse educator has been consulted Chronic microcytic Anemia:GLENNY -iron studies in the past showed GLENNY -s/p 1 prbc in OR -hb 6.8 this am -added po iron -transfuse 1 prbc -monitor Vaginal bleed-resolved Uterine Fibroids -was seen by Surgeon'S Assistant last admission -EMB:beningn and PAP:Negative for intraepithelial lesion or malignancy. HPV high risk;negative -patient refused IUD -was started on Provera BID and recommend OP follow up -cont motor equipment captain provera bid, refusing as she thinks it is causing her increased vaginal bleeding -Surgeon'S Assistant consulted ,appreciate recs Chronic systolic congestive heart failure -stable -Continue OUTSIDE MEDICAL SALES REPRESENTATIVE Coreg, lisinoprilLasix -hold aldactone due to hyperkalemia -cardiology consult -ECHO:EF~ 30%.large mobile apical thrombus,Markedly elevated central venous pressure Polysubstance abuse(nicotine and meth) -Patient's UDS was positive for opiates, methamphetamines -refused nicotine patch FEN -No IV fluids, cardaic/dm diet, monitor lytes Code:Patient is full code. Dispo -cont IP admission. Pt/ot recommend IP. I spent a total of 40 minutes in pt care today with an estimated 20 minutes spent reviewing course to date, including chart review of vitals, labs, overnight events, and coordinating care. Complexity of medical decision making is high because of the multi-system nature of disease process. Subjective Betina Baron is a 48 y.o. female.no acute events.patient says she is doing fine. Slept well last night.Patient reports pain is better.only pain at her right leg incision sites. Oxy is helping her pain. Denies any pain in her chest or abdomen. No n/v. No fever ,chills. Constipated.no bm in last 5-6 days. No sob. Says her vaginal bleeding resolved.says She is not going to take provera as it makes her bleeding worse. No fever . She is agreeable to PATRIA tomorrow. Medications Scheduled Meds: aspirin EC tablet 81 mg 81 mg Oral QDAY carvedilol (COREG) tablet 3.125 mg 3.125 mg Oral BID DAPTOmycin (CUBICIN) injection 700 mg 10 mg/kg (Adjusted) Intravenous Q24H* enoxaparin (LOVENOX) syringe 70 mg 70 mg Subcutaneous BID ferrous sulfate (FEOSOL, FEROSUL) tablet 325 mg 325 mg Oral BID w/meals furosemide (LASIX) tablet 40 mg 40 mg Oral QDAY insulin aspart U-100 (NOVOLOG FLEXPEN) injection PEN 0-14 Units 0-14 Units Subcutaneous ACHS insulin NPH/REG 70/30 (NOVOLIN 70/30) injection 30 Units 30 Units Subcutaneous BID before meals lisinopril (PRINIVIL; ZESTRIL) tablet 2.5 mg 2.5 mg Oral QDAY medroxyprogesterone (proVERA) tablet 10 mg 10 mg Oral BID polyethylene glycol 3350 (MIRALAX) packet 17 g 1 packet Oral BID senna/docusate (SENOKOT-S) tablet 1 tablet 1 tablet Oral BID Continuous Infusions: PRN and Respiratory Meds:benzocaine/menthol Q2H PRN, oxyCODONE Q4H PRN Review of Systems: A 14 point review of systems was negative except for: Musculoskeletal: positive for leg pain Objective: Vital Signs: Last Filed Vital Signs: 24 Hour Range BP: 105/69 (08/13 1125) Temp: 36.9 C (98.5 F) (08/13 1125) Pulse: 72 (08/13 1125) Respirations: 18 PER MINUTE (08/13 112) SpO2: 100 % (08/13 1125) O2 Delivery: None (Room Air) (08/13 0752) SpO2 Pulse: 76 (08/13 0643) BP: (97-115)/(49-78) Temp: [36.6 C (97.8 F)-37.2 C (98.9 F)] Pulse: [67-94] Respirations: [11 PER MINUTE-18 PER MINUTE] SpO2: [95 %-100 %] O2 Delivery: None (Room Air) Intensity Pain Scale (Self Report): 7 (08/13/18 0752) Vitals: 08/09/18 0400 08/09/18 0800 08/10/18 1048 Weight: 68.6 kg (151 lb 3.8 oz) 68.6 kg (151 lb 3.8 oz) 68.5 kg (151 lb) Intake/Output Summary: (Last 24 hours) Intake/Output Summary (Last 24 hours) at 08/13/18 1150 Last data filed at 08/13/18 1115 Gross per 24 hour Intake 1294 ml Output 1810 ml Net -516 ml Physical Exam General: AO3x, no distress Head: NCAT Eyes: PERRLA EOMI, conjunctival pallor, ENT: Normal external canals b/l,poor dentition Neck: supple Lungs: CTAB Chest wall: No tenderness, Heart: RRR, no murmurs. Abdomen: soft ,non-tender, bs+, hernia+ Extremities: no edema b/l Peripheral pulses: dopplerable peripheral pulses in right leg, Skin: Pale Skin, texture, turgor normal. Lymph nodes: No cervical LAD Neurologic:grossly normal Musculoskeletal: left BKA, post op incisions CLD,right leg boot+ Lab Review 24-hour labs: Results for orders placed or performed during the hospital encounter of (from the past 24 hour(s)) POC GLUCOSE Collection Time: 08/12/18 12:18 PM Result Value Ref Range Glucose, POC 232 (H) 70 - 100 MG/DL BASIC METABOLIC PANEL Collection Time: 08/12/18 2:45 PM Result Value Ref Range Sodium 129 (L) 137 - 147 MMOL/L Potassium 4.9 3.5 - 5.1 MMOL/L Chloride 97 (L) 98 - 110 MMOL/L CO2 28 21 - 30 MMOL/L Anion Gap 4 3 - 12 Glucose 145 (H) 70 - 100 MG/DL Blood Urea Nitrogen 18 7 - 25 MG/DL Creatinine 0.82 0.4 - 1.00 MG/DL Calcium 8.8 8.5 - 10.6 MG/DL eGFR Non >60 >60 mL/min eGFR >60 >60 mL/min POC GLUCOSE Collection Time: 08/12/18 5:58 PM Result Value Ref Range Glucose, POC 167 (H) 70 - 100 MG/DL POC GLUCOSE Collection Time: 08/12/18 8:32 PM Result Value Ref Range Glucose, POC 172 (H) 70 - 100 MG/DL CBC AND DIFF Collection Time: 08/13/18 5:15 AM Result Value Ref Range White Blood Cells 9.7 4.5 - 11.0 K/UL RBC 3.25 (L) 4.0 - 5.0 M/UL Hemoglobin 6.8 (L) 12.0 - 15.0 GM/DL Hematocrit 22.4 (L) 36 - 45 % MCV 68.8 (L) 80 - 100 FL MCH 20.8 (L) 26 - 34 PG MCHC 30.2 (L) 32.0 - 36.0 G/DL RDW 32.0 (H) 11 - 15 % Platelet Count 239 150 - 400 K/UL MPV 8.5 7 - 11 FL Neutrophils 70 41 - 77 % Lymphocytes 14 (L) 24 - 44 % Monocytes 10 4 - 12 % Eosinophils 5 0 - 5 % Basophils 1 0 - 2 % Absolute Neutrophil Count 6.70 1.8 - 7.0 K/UL Absolute Lymph Count 1.40 1.0 - 4.8 K/UL Absolute Monocyte Count 0.90 (H) 0 - 0.80 K/UL Absolute Eosinophil Count 0.50 (H) 0 - 0.45 K/UL Absolute Basophil Count 0.10 0 - 0.20 K/UL COMPREHENSIVE METABOLIC PANEL Collection Time: 08/13/18 5:15 AM Result Value Ref Range Sodium 131 (L) 137 - 147 MMOL/L Potassium 5.8 (H) 3.5 - 5.1 MMOL/L Chloride 99 98 - 110 MMOL/L Glucose 199 (H) 70 - 100 MG/DL Blood Urea Nitrogen 24 7 - 25 MG/DL Creatinine 0.88 0.4 - 1.00 MG/DL Calcium 8.4 (L) 8.5 - 10.6 MG/DL Total Protein 5.8 (L) 6.0 - 8.0 G/DL Total Bilirubin 0.3 0.3 - 1.2 MG/DL Albumin 2.6 (L) 3.5 - 5.0 G/DL Alk Phosphatase 134 (H) 25 - 110 U/L AST (SGOT) 19 7 - 40 U/L CO2 30 21 - 30 MMOL/L ALT (SGPT) 18 7 - 56 U/L Anion Gap 2 (L) 3 - 12 eGFR Non >60 >60 mL/min eGFR >60 >60 mL/min TYPE & CROSSMATCH Collection Time: 08/13/18 9:15 AM Result Value Ref Range Units Ordered 1 Crossmatch Expires 08/16/2018 Record Check FOUND ABO/RH(D) A NEG Antibody Screen NEG Electronic Crossmatch YES Unit Number [id number] Blood Component Type RBC,ADSOL,LEUKO REDUCED Unit Division 0 Status OF Unit ISSUED Transfusion Status OK TO TRANSFUSE Crossmatch Result COMPATIBLE,ELECTRONIC POC GLUCOSE Collection Time: 08/13/18 11:33 AM Result Value Ref Range Glucose, POC 87 70 - 100 MG/DL Point of Care Testing (Last 24 hours) Glucose: (!) 199 (08/13/18 0515) POC Glucose (Download): 87 (08/13/18 1133) Radiology and other Diagnostics Review: Pertinent radiology reviewed. No results found. Chau Gomez MD Pager [phone] * Dani Juárez MD - 08/13/2018 7:53 AM CDT Formatting of this note may be different from the original. Daily Progress Note Today's Date: 08/13/2018 Name: Betina Baron Admission Date: 08/09/2018 (LOS: 4 days) Assessment: Betina Baron is a 48 y.o. female with a pmh of DM, LV thrombus who presented from an OSH in DKA with splenic and renal artery emboli and right and left lower extremity ischemia secondary to left common femoral, profunda, and SFA occlusion and right popliteal and trifurcation occlusion who is now 4 Days Post-Op from Procedure(s) (LRB): LEFT FEMORAL THROMBECTOMY, RIGHT POPLITEAL AND TIBIAL THROMBECTOMY (Bilateral) ( 08/09/2018) with Dr. Mccarthy. Active Problems: Mass of heart Acute systolic CHF (congestive heart failure) (HCC) LV (left ventricular) mural thrombus without ID Polysubstance abuse (HCC) DM (diabetes mellitus) (HCC) Bacteremia due to Gram-positive bacteria Moderate malnutrition (HCC) Plan: - Continue lovenox, anticoagulation and f/u per cardiology - Q4h vascular checks until d/c - Rooke boot to RLE - appropriate for discharge home from vascular surgery standpoint - please page [phone] with questions Dani Juárez MD Pager [phone] Subjective: No acute events overnight. Pain is well-controlled. Patient is not having nausea , has not vomited, is tolerating DIET CARDIAC (LOW FAT/LOW NA) & DIABETIC, is ambulating with transfers. Objective: BP: (97-111)/(44-78) Temp: [36.6 C (97.8 F)-37.2 C (98.9 F)] Pulse: [67-94] Respirations: [11 PER MINUTE-16 PER MINUTE] SpO2: [95 %-100 %] O2 Delivery: None (Room Air) Lab Results Component Value Date/Time NA 131 (L) 08/13/2018 05:15 AM K 5.8 (H) 08/13/2018 05:15 AM CL 99 08/13/2018 05:15 AM CO2 30 08/13/2018 05:15 AM BUN 24 08/13/2018 05:15 AM CR 0.88 08/13/2018 05:15 AM MG 1.8 08/09/2018 03:00 PM PO4 2.7 08/09/2018 03:00 PM Lab Results Component Value Date/Time HGB 6.8 (L) 08/13/2018 05:15 AM HCT 22.4 (L) 08/13/2018 05:15 AM WBC 9.7 08/13/2018 05:15 AM PLTCT 239 08/13/2018 05:15 AM INR 1.1 08/09/2018 08:10 AM Lab Results Component Value Date/Time GLUPOC 172 (H) 08/12/2018 08:32 PM GLUPOC 167 (H) 08/12/2018 05:58 PM GLUPOC 232 (H) 08/12/2018 12:18 PM Physical Exam Constitutional: She is oriented to person, place, and time. She appears well- developed and well-nourished. No distress. HENT: Head: Normocephalic and atraumatic. Cardiovascular: Normal rate and intact distal pulses. Pulses: Radial pulses are 2+ on the right side, and 2+ on the left side. Femoral pulses are 2+ on the right side, and 2+ on the left side. Dorsalis pedis pulses are 0 on the right side. Posterior tibial pulses are 0 on the right side. Pulmonary/Chest: Effort normal. No respiratory distress. Abdominal: Soft. She exhibits no distension. There is no tenderness. Musculoskeletal: Normal range of motion. LLE BKA, doppler signals in popliteal RLE with doppler signals in DP and PT Incisions c/d/i covered with dermabond BLE warm without mottling, R toes with residual ischemic change Neurological: She is alert and oriented to person, place, and time. Skin: Skin is warm and dry. Psychiatric: She has a normal mood and affect. Her behavior is normal. Judgment and thought content normal. Dani Juárez MD Service Pager: # [phone] Associated attestation - Chandler Coburn MD - 08/15/2018 10:47 AM CDT Formatting of this note may be different from the original. ATTESTATION I personally performed the rodriguez portions of the E/M visit, discussed case with resident and concur with resident documentation of history, physical exam, assessment, and treatment plan unless otherwise noted. Incisions intact. Pain resolved. Encouraged her in cooperating with PT/OT. Staff name: Chandler Coburn MD Date: 08/15/2018 * Ramon Shelby, NELLY - 08/12/2018 10:26 PM CDT Patient alert and oriented. No sx of distress or anxiety. Will continue to monitor status. * Alta Concepcion, OT - 08/12/2018 2:50 PM CDT OCCUPATIONAL THERAPY Pt states she has done well with transfers except that the arm on her commode keeps falling and that it rocks and is unlevel. OT spoke with RN and new commode chair ordered. OT will continue to monitor for further adl needs and progress as tolerated. Alta Concepcion, OTR/L [id number] * Chau Gomez MD - 08/12/2018 11:36 AM CDT Formatting of this note may be different from the original. General Progress Note Name: Betina Baron Today's Date: 08/12/2018 Admission Date: 08/09/2018 LOS: 3 days Assessment/Plan: Active Problems: Mass of heart Acute systolic CHF (congestive heart failure) (HCC) LV (left ventricular) mural thrombus without ID Polysubstance abuse (HCC) DM (diabetes mellitus) (HCC) Bacteremia due to Gram-positive bacteria Moderate malnutrition (HCC) 48-year-old female with past medical history of polysubstance abuse, uncontrolled diabetes, left ventricular thrombus comes in as outside hospital transfer with chief complaint of left-sided and right-sided pain and noticed to be in DKA, multiple emboli including splenic emboli, renal artery emboli, left femoral artery thrombus with complete occlusion. Multiple arterial thrombus/B/L LE Ischemia -Patient with known left ventricular thrombus, noncompliant on her anticoagulation -Outside hospital report showing left renal artery emboli, splenic emboli, left femoral artery thrombus with occlusion -Last CTA of the abdomen pelvis at 04/01/2018 here at [facility] shows only left ventricular thrombus -CTA on admission:Left ventricular mass is redemonstrated, consistent with known thrombus.Known complete occlusion of the left femoral rate. Complete occlusion of the right popliteal artery with collateral reconstitution of the trifurcation vessels which are poorly opacified.Patchy wedge-shaped hypodensities throughout the spleen and left kidney consistent with known splenic and renal emboli. Increase in size in fat-containing umbilical hernia and improvement in diffuse body wall edema. Moderate luminal narrowing of the infrarenal abdominal aorta without aneurysm.Enlarged likely fibroid uterus, unchanged from prior exam. If abnormal there is uterine bleeding, dedicated ultrasound exam is recommended. Small right lung base nodule is identified that is unchanged from the prior exam. - IV heparin switched to Lovenox. -patient is non complaint with coumadin and INR checks, coumadin is not a good option. I discussed with her PCP who start working on financial assistance program for xarelto , if we could give her a month supply. -d/w SW/NCM -Will switch to po eliquis in next few days. NCM will be able to give her free coupon for a month. -vascular surgery Consulted, -s/p LEFT FEMORAL THROMBECTOMY, RIGHT POPLITEAL AND TIBIAL THROMBECTOMY 08/09 -pain control Bowel regimen Sepsis/GPC bacteremia -afebrilet, leukocytosis improving -blood c/s /- from OSH reportedly growing GPC and other set no growth -on IV antibiotics: started on vanc and cefepime, switched to Dapto and ceftaroline(08/10) , now on dapto only -repeat Blood cultures x2-NGTD -ID consult -will need PATRIA, -also will need intermediate manager abx, -complicated situation , no insurance. She may no stay in stay in the hospital for entire course -d/w SW about financial assistance Hyperkalemia -k 5.5 -d/c aldactone -restart lasix -kayexalate 15 g x1 -monitor k Hyponatremia -likely from CHF -stable -monitor Uncontrolled diabetes -off insulin gtt IV - hba1c:10.3 -patient has no insurance cannot afford lantus , switched Novolin 70/30 , increase 30 bid, cont ISS -Diabetes nurse educator has been consulted Chronic microcytic Anemia:GLENNY -iron studies in the past showed GLENNY -s/p 1 prbc in OR -hb stable -added po iron -monitor Vaginal bleed-improved Uterine Fibroids -was seen by Surgeon'S Assistant last admission -EMB:beningn and PAP:Negative for intraepithelial lesion or malignancy. HPV high risk;negative -patient refused IUD -was started on Provera BID and recommend OP follow up -cont motor equipment captain provera bid -Surgeon'S Assistant consulted d/w resident Chronic systolic congestive heart failure -Continue OUTSIDE MEDICAL SALES REPRESENTATIVE Coreg, lisinopril -restart Lasix -hold aldactone due to hyperkalemia -cardiology consult -ECHO:EF~ 30%.large mobile apical thrombus,Markedly elevated central venous pressure Polysubstance abuse(nicotine and meth) -Patient's UDS was positive for opiates, methamphetamines -refused nicotine patch FEN -No IV fluids, cardaic/dm diet, monitor lytes Code:Patient is full code. Dispo -cont IP admission. Pt/ot recommend IP. I spent a total of 40 minutes in pt care today with an estimated 20 minutes spent reviewing course to date, including chart review of vitals, labs, overnight events, and coordinating care. Complexity of medical decision making is high because of the multi-system nature of disease process. Subjective Betina Baron is a 48 y.o. female.no acute events.patient says she is ready to go home. She is emotional and crying. Says she has family at home and cannot come to visit her. Patient reports pain in her right leg 07/07. Denies any pain in her chest or abdomen. No n/v. No fever ,chills. Constipated.no bm in last 4 days. No sob. Says her vaginal bleeding improved.. No fever Medications Scheduled Meds: aspirin EC tablet 81 mg 81 mg Oral QDAY carvedilol (COREG) tablet 3.125 mg 3.125 mg Oral BID DAPTOmycin (CUBICIN) injection 700 mg 10 mg/kg (Adjusted) Intravenous Q24H* enoxaparin (LOVENOX) syringe 70 mg 70 mg Subcutaneous BID ferrous sulfate (FEOSOL, FEROSUL) tablet 325 mg 325 mg Oral BID w/meals furosemide (LASIX) tablet 40 mg 40 mg Oral QDAY insulin aspart U-100 (NOVOLOG FLEXPEN) injection PEN 0-14 Units 0-14 Units Subcutaneous ACHS insulin NPH/REG 70/30 (NOVOLIN 70/30) injection 30 Units 30 Units Subcutaneous BID before meals lisinopril (PRINIVIL; ZESTRIL) tablet 2.5 mg 2.5 mg Oral QDAY medroxyprogesterone (proVERA) tablet 10 mg 10 mg Oral BID polyethylene glycol 3350 (MIRALAX) packet 17 g 1 packet Oral BID senna/docusate (SENOKOT-S) tablet 1 tablet 1 tablet Oral BID Continuous Infusions: PRN and Respiratory Meds:benzocaine/menthol Q2H PRN, fentaNYL citrate PF Q1H PRN , oxyCODONE Q4H PRN Review of Systems: A 14 point review of systems was negative except for: Musculoskeletal: positive for leg pain Objective: Vital Signs: Last Filed Vital Signs: 24 Hour Range BP: 102/44 (08/12 900) Temp: 36.6 C (97.8 F) (08/12 900) Pulse: 72 (08/12 900) Respirations: 12 PER MINUTE (08/12 900) SpO2: 100 % (08/12 900) O2 Delivery: None (Room Air) (08/12 900) SpO2 Pulse: 72 (08/12 400) BP: (93-103)/(44-88) Temp: [36.6 C (97.8 F)-37.1 C (98.7 F)] Pulse: [71-81] Respirations: [12 PER MINUTE-18 PER MINUTE] SpO2: [98 %-100 %] O2 Delivery: None (Room Air) Intensity Pain Scale (Self Report): 4 (08/12/18 0815) Vitals: 08/09/18 0400 08/09/18 0800 08/10/18 1048 Weight: 68.6 kg (151 lb 3.8 oz) 68.6 kg (151 lb 3.8 oz) 68.5 kg (151 lb) Intake/Output Summary: (Last 24 hours) Intake/Output Summary (Last 24 hours) at 08/12/18 1136 Last data filed at 08/12/18 0815 Gross per 24 hour Intake 1060 ml Output 970 ml Net 90 ml Physical Exam General: AO3x, no distress ,emotional Head: NCAT Eyes: PERRLA EOMI, conjunctival pallor, ENT: Normal external canals b/l,poor dentition Neck: supple Lungs: CTAB Chest wall: No tenderness, Heart: RRR, no murmurs. Abdomen: soft ,non-tender, bs+, hernia+ Extremities: no edema b/l Peripheral pulses: dopplerable peripheral pulses in right leg, Skin: Pale Skin, texture, turgor normal. Lymph nodes: No cervical LAD Neurologic:grossly normal Musculoskeletal: left BKA, post op incisions CLD Lab Review 24-hour labs: Results for orders placed or performed during the hospital encounter of (from the past 24 hour(s)) POC GLUCOSE Collection Time: 08/11/18 12:29 PM Result Value Ref Range Glucose, POC 214 (H) 70 - 100 MG/DL POC GLUCOSE Collection Time: 08/11/18 6:10 PM Result Value Ref Range Glucose, POC 278 (H) 70 - 100 MG/DL POC GLUCOSE Collection Time: 08/11/18 8:56 PM Result Value Ref Range Glucose, POC 337 (H) 70 - 100 MG/DL CBC AND DIFF Collection Time: 08/12/18 4:23 AM Result Value Ref Range White Blood Cells 11.8 (H) 4.5 - 11.0 K/UL RBC 3.42 (L) 4.0 - 5.0 M/UL Hemoglobin 7.3 (L) 12.0 - 15.0 GM/DL Hematocrit 24.2 (L) 36 - 45 % MCV 70.7 (L) 80 - 100 FL MCH 21.4 (L) 26 - 34 PG MCHC 30.4 (L) 32.0 - 36.0 G/DL RDW 32.3 (H) 11 - 15 % Platelet Count 240 150 - 400 K/UL MPV 9.2 7 - 11 FL Neutrophils 82 (H) 41 - 77 % Lymphocytes 7 (L) 24 - 44 % Monocytes 7 4 - 12 % Eosinophils 4 0 - 5 % Basophils 0 0 - 2 % Absolute Neutrophil Count 9.60 (H) 1.8 - 7.0 K/UL Absolute Lymph Count 0.80 (L) 1.0 - 4.8 K/UL Absolute Monocyte Count 0.80 0 - 0.80 K/UL Absolute Eosinophil Count 0.50 (H) 0 - 0.45 K/UL Absolute Basophil Count 0.00 0 - 0.20 K/UL COMPREHENSIVE METABOLIC PANEL Collection Time: 08/12/18 4:23 AM Result Value Ref Range Sodium 128 (L) 137 - 147 MMOL/L Potassium 5.5 (H) 3.5 - 5.1 MMOL/L Chloride 97 (L) 98 - 110 MMOL/L Glucose 226 (H) 70 - 100 MG/DL Blood Urea Nitrogen 22 7 - 25 MG/DL Creatinine 0.82 0.4 - 1.00 MG/DL Calcium 8.3 (L) 8.5 - 10.6 MG/DL Total Protein 5.9 (L) 6.0 - 8.0 G/DL Total Bilirubin 0.3 0.3 - 1.2 MG/DL Albumin 2.7 (L) 3.5 - 5.0 G/DL Alk Phosphatase 130 (H) 25 - 110 U/L AST (SGOT) 29 7 - 40 U/L CO2 25 21 - 30 MMOL/L ALT (SGPT) 22 7 - 56 U/L Anion Gap 6 3 - 12 eGFR Non >60 >60 mL/min eGFR >60 >60 mL/min CREATINE KINASE-CPK Collection Time: 08/12/18 4:23 AM Result Value Ref Range Creatine Kinase 44 21 - 215 U/L POC GLUCOSE Collection Time: 08/12/18 7:26 AM Result Value Ref Range Glucose, POC 344 (H) 70 - 100 MG/DL Point of Care Testing (Last 24 hours) Glucose: (!) 226 (08/12/18 0423) POC Glucose (Download): (!) 344 (08/12/18 1024) Radiology and other Diagnostics Review: Pertinent radiology reviewed. No results found. Chau Gomez MD Pager [phone] * Harpreet Dugan MD - 08/12/2018 7:43 AM CDT Formatting of this note may be different from the original. Daily Progress Note Today's Date: 08/12/2018 Name: Betina Baron Admission Date: 08/09/2018 (LOS: 3 days) Assessment: Betina Baron is a 48 y.o. female with a pmh of DM, LV thrombus who presented from an OSH in [facility] with splenic and renal artery emboli and right and left lower extremity ischemia secondary to left common femoral, profunda, and SFA occlusion and right popliteal and trifurcation occlusion who is now 3 Days Post-Op from Procedure(s) (LRB): LEFT FEMORAL THROMBECTOMY, RIGHT POPLITEAL AND TIBIAL THROMBECTOMY (Bilateral) ( 08/09/2018) with Dr. Mccarthy. Active Problems: Mass of heart Acute systolic CHF (congestive heart failure) (HCC) LV (left ventricular) mural thrombus without ID Polysubstance abuse (HCC) DM (diabetes mellitus) (HCC) Bacteremia due to Gram-positive bacteria Moderate malnutrition (HCC) Plan: - heparin gtt transitioned to therapeutic lovenox - Q2h vascular checks - Rooke boot to RLE - okay for discharge home from vascular surgery standpoint - vascular surgery will follow along, page [phone] with questions Harpreet Dugan MD Pager [phone] Subjective: No acute events overnight. Pain is well-controlled. Patient is not having nausea , has not vomited, is tolerating DIET CARDIAC (LOW FAT/LOW NA) & DIABETIC, is ambulating with transfers. Objective: BP: (93-103)/(46-88) Temp: [36.7 C (98 F)-37.1 C (98.7 F)] Pulse: [71-83] Respirations: [12 PER MINUTE-18 PER MINUTE] SpO2: [97 %-100 %] O2 Delivery: None (Room Air) Lab Results Component Value Date/Time NA 128 (L) 08/12/2018 04:23 AM K 5.5 (H) 08/12/2018 04:23 AM CL 97 (L) 08/12/2018 04:23 AM CO2 25 08/12/2018 04:23 AM BUN 22 08/12/2018 04:23 AM CR 0.82 08/12/2018 04:23 AM MG 1.8 08/09/2018 03:00 PM PO4 2.7 08/09/2018 03:00 PM Lab Results Component Value Date/Time HGB 7.3 (L) 08/12/2018 04:23 AM HCT 24.2 (L) 08/12/2018 04:23 AM WBC 11.8 (H) 08/12/2018 04:23 AM PLTCT 240 08/12/2018 04:23 AM INR 1.1 08/09/2018 08:10 AM Lab Results Component Value Date/Time GLUPOC 344 (H) 08/12/2018 07:26 AM GLUPOC 337 (H) 08/11/2018 08:56 PM GLUPOC 278 (H) 08/11/2018 06:10 PM Physical Exam Constitutional: She is oriented to person, place, and time. She appears well- developed and well-nourished. No distress. HENT: Head: Normocephalic and atraumatic. Cardiovascular: Normal rate and intact distal pulses. Pulses: Radial pulses are 2+ on the right side, and 2+ on the left side. Femoral pulses are 2+ on the right side, and 2+ on the left side. Dorsalis pedis pulses are 0 on the right side. Posterior tibial pulses are 0 on the right side. Pulmonary/Chest: Effort normal. No respiratory distress. Abdominal: Soft. She exhibits no distension. There is no tenderness. Musculoskeletal: Normal range of motion. LLE BKA, doppler signals in popliteal RLE with doppler signals in DP and PT Incisions c/d/i covered with dermabond BLE warm without mottling, R toes with residual ischemic change Neurological: She is alert and oriented to person, place, and time. Skin: Skin is warm and dry. Psychiatric: She has a normal mood and affect. Her behavior is normal. Judgment and thought content normal. Harpreet Dugan MD Service Pager: # [phone] Associated attestation - Chandler Coburn MD - 08/12/2018 2:23 PM CDT Formatting of this note may be different from the original. ATTESTATION I personally performed the rodriguez portions of the E/M visit, discussed case with resident and concur with resident documentation of history, physical exam, assessment, and treatment plan unless otherwise noted. She denies any foot or leg pain at this time. Her incisions are intact. No erythema or signs of infection. Right foot color unchanged. Continue anticoagulation. May d/c home from Vascular standpoint once transferring okay. Staff name: Chandler Coburn MD Date: 08/12/2018 * Shala Wise RN - 08/11/2018 3:00 PM CDT Took over care of patient at this time from NELLY Jones until relief staff available. Focused assessment completed in doc flowsheets. * Chau Gomez MD - 08/11/2018 12:19 PM CDT Formatting of this note may be different from the original. General Progress Note Name: Betina Baron Today's Date: 08/11/2018 Admission Date: 08/09/2018 LOS: 2 days Assessment/Plan: Active Problems: Mass of heart Acute systolic CHF (congestive heart failure) (HCC) LV (left ventricular) mural thrombus without ID Polysubstance abuse (HCC) DM (diabetes mellitus) (HCC) Bacteremia due to Gram-positive bacteria Moderate malnutrition (HCC) 48-year-old female with past medical history of polysubstance abuse, uncontrolled diabetes, left ventricular thrombus comes in as outside hospital transfer with chief complaint of left-sided and right-sided pain and noticed to be in DKA, multiple emboli including splenic emboli, renal artery emboli, left femoral artery thrombus with complete occlusion. Multiple arterial thrombus/B/L LE Ischemia -Patient with known left ventricular thrombus, noncompliant on her anticoagulation -Outside hospital report showing left renal artery emboli, splenic emboli, left femoral artery thrombus with occlusion -Last CTA of the abdomen pelvis at 04/01/2018 here at [facility] shows only left ventricular thrombus -CTA on admission:Left ventricular mass is redemonstrated, consistent with known thrombus.Known complete occlusion of the left femoral rate. Complete occlusion of the right popliteal artery with collateral reconstitution of the trifurcation vessels which are poorly opacified.Patchy wedge-shaped hypodensities throughout the spleen and left kidney consistent with known splenic and renal emboli. Increase in size in fat-containing umbilical hernia and improvement in diffuse body wall edema. Moderate luminal narrowing of the infrarenal abdominal aorta without aneurysm.Enlarged likely fibroid uterus, unchanged from prior exam. If abnormal there is uterine bleeding, dedicated ultrasound exam is recommended. Small right lung base nodule is identified that is unchanged from the prior exam. - IV heparin switched to Lovenox. -patient is non complaint with coumadin and INR checks, coumadin is not a good option. I discussed with her PCP who start working on financial assistance program for xarelto , if we could give her a month supply. -d/w SW/NCM -Will switch to po eliquis in next few days. NCM will be able to give her free coupon for a month. -vascular surgery Consulted, -s/p LEFT FEMORAL THROMBECTOMY, RIGHT POPLITEAL AND TIBIAL THROMBECTOMY 08/09 -pain control Bowel regimen Sepsis/GPC bacteremia -afebrilet, leukocytosis improving -blood c/s 1/2- from OSH reportedly growing GPC and other set no growth -on IV antibiotics: started on vanc and cefepime, switched to Dapto and ceftaroline -repeat Blood cultures x2-NGTD -ID consult Hyponatremia -likely from CHF -stable -monitor Uncontrolled diabetes -off insulin gtt IV - hba1c:10.3 -increase lantus 35 hs , cont ISS and schedule Novolog 8 u tid -Diabetes nurse educator has been consulted Chronic microcytic Anemia:GLENNY -iron studies in the past showed GLENNY -s/p 1 prbc in OR -hb stable -added po iron -monitor Vaginal bleed Uterine Fibroids -was seen by Surgeon'S Assistant last admission -EMB:beningn and PAP:Negative for intraepithelial lesion or malignancy. 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 Dispo -cont IP admission. Pt/ot recommend IP. I spent a total of 40 minutes in pt care today with an estimated 20 minutes spent reviewing course to date, including chart review of vitals, labs, overnight events, and coordinating care. Complexity of medical decision making is high because of the multi-system nature of disease process. Subjective Betina Baron is a 48 y.o. female. Patient reports pain in her right leg 08/07. Denies any pain in her chest or abdomen. No n/v. No fever ,chills. Constipated.no bm in last 4 days. No sob. Says she having vaginal bleeding thinks it is her regular menses. Reports excessive vaginal bleeding. No fever Medications Scheduled Meds: aspirin EC tablet 81 mg 81 mg Oral QDAY atorvastatin (LIPITOR) tablet 80 mg 80 mg Oral QDAY carvedilol (COREG) tablet 3.125 mg 3.125 mg Oral BID ceftaroline (TEFLARO) 600 mg in sodium chloride 0.9% (NS) 70 mL IVPB 600 mg Intravenous Q12H DAPTOmycin (CUBICIN) injection 700 mg 10 mg/kg (Adjusted) Intravenous Q24H* enoxaparin (LOVENOX) syringe 70 mg 70 mg Subcutaneous BID ferrous sulfate (FEOSOL, FEROSUL) tablet 325 mg 325 mg Oral BID w/meals insulin aspart U-100 (NOVOLOG FLEXPEN) injection PEN 0-14 Units 0-14 Units Subcutaneous ACHS insulin aspart U-100 (NOVOLOG FLEXPEN) injection PEN 8 Units 8 Units Subcutaneous TID w/ meals insulin glargine (LANTUS SOLOSTAR, BASAGLAR) injection PEN 30 Units 30 Units Subcutaneous QHS lisinopril (PRINIVIL; ZESTRIL) tablet 2.5 mg 2.5 mg Oral QDAY medroxyprogesterone (proVERA) tablet 10 mg 10 mg Oral BID polyethylene glycol 3350 (MIRALAX) packet 17 g 1 packet Oral BID senna/docusate (SENOKOT-S) tablet 1 tablet 1 tablet Oral BID spironolactone (ALDACTONE) tablet 25 mg 25 mg Oral QDAY Continuous Infusions: PRN and Respiratory Meds:benzocaine/menthol Q2H PRN, fentaNYL citrate PF Q1H PRN , oxyCODONE Q4H PRN Review of Systems: A 14 point review of systems was negative except for: Musculoskeletal: positive for leg pain Objective: Vital Signs: Last Filed Vital Signs: 24 Hour Range BP: 83/46 (08/11 0000) Temp: 36.8 C (98.2 F) (08/11 1200) Pulse: 83 (08/11 0900) Respirations: 17 PER MINUTE (08/11 0900) SpO2: 97 % (08/11 0900) O2 Delivery: None (Room Air) (08/11 0800) SpO2 Pulse: 83 (08/11 900) BP: (80-92)/(46-65) Temp: [36.8 C (98.2 F)-37.2 C (99 F)] Pulse: [75-88] Respirations: [14 PER MINUTE-21 PER MINUTE] SpO2: [96 %-100 %] O2 Delivery: None (Room Air) Intensity Pain Scale (Self Report): 10 (08/11/18 0800) Vitals: 08/09/18 0400 08/09/18 0800 08/10/18 1048 Weight: 68.6 kg (151 lb 3.8 oz) 68.6 kg (151 lb 3.8 oz) 68.5 kg (151 lb) Intake/Output Summary: (Last 24 hours) Intake/Output Summary (Last 24 hours) at 08/11/18 1219 Last data filed at 08/11/18 1000 Gross per 24 hour Intake 953.58 ml Output 1525 ml Net -571.42 ml Physical Exam General: AO3x, no distress Head: NCAT Eyes: PERRLA EOMI, conjunctival pallor, ENT: Normal external canals b/l,poor dentition Neck: supple Lungs: CTAB Chest wall: No tenderness, Heart: RRR, no murmurs. Abdomen: soft ,non-tender, bs+, hernia+ Extremities: no edema b/l Peripheral pulses: dopplerable, Skin: Pale Skin, texture, turgor normal. Lymph nodes: No cervical LAD Neurologic:grossly normal Musculoskeletal: left BKA, post op incisions CLD Lab Review 24-hour labs: Results for orders placed or performed during the hospital encounter of (from the past 24 hour(s)) PTT (APTT) Collection Time: 08/10/18 1:15 PM Result Value Ref Range APTT 21.9 20.0 - 36.0 SEC POC GLUCOSE Collection Time: 08/10/18 5:46 PM Result Value Ref Range Glucose, POC 176 (H) 70 - 100 MG/DL POC GLUCOSE Collection Time: 08/10/18 8:46 PM Result Value Ref Range Glucose, POC 140 (H) 70 - 100 MG/DL CBC AND DIFF Collection Time: 08/11/18 4:03 AM Result Value Ref Range White Blood Cells 12.7 (H) 4.5 - 11.0 K/UL RBC 3.30 (L) 4.0 - 5.0 M/UL Hemoglobin 7.3 (L) 12.0 - 15.0 GM/DL Hematocrit 22.9 (L) 36 - 45 % MCV 69.4 (L) 80 - 100 FL MCH 22.0 (L) 26 - 34 PG MCHC 31.7 (L) 32.0 - 36.0 G/DL RDW 32.1 (H) 11 - 15 % Platelet Count 208 150 - 400 K/UL MPV 8.1 7 - 11 FL Neutrophils 82 (H) 41 - 77 % Lymphocytes 6 (L) 24 - 44 % Monocytes 8 4 - 12 % Eosinophils 4 0 - 5 % Basophils 0 0 - 2 % Absolute Neutrophil Count 10.40 (H) 1.8 - 7.0 K/UL Absolute Lymph Count 0.80 (L) 1.0 - 4.8 K/UL Absolute Monocyte Count 1.00 (H) 0 - 0.80 K/UL Absolute Eosinophil Count 0.50 (H) 0 - 0.45 K/UL Absolute Basophil Count 0.00 0 - 0.20 K/UL COMPREHENSIVE METABOLIC PANEL Collection Time: 08/11/18 4:03 AM Result Value Ref Range Sodium 125 (L) 137 - 147 MMOL/L Potassium 4.4 3.5 - 5.1 MMOL/L Chloride 96 (L) 98 - 110 MMOL/L Glucose 222 (H) 70 - 100 MG/DL Blood Urea Nitrogen 24 7 - 25 MG/DL Creatinine 0.87 0.4 - 1.00 MG/DL Calcium 8.0 (L) 8.5 - 10.6 MG/DL Total Protein 5.6 (L) 6.0 - 8.0 G/DL Total Bilirubin 0.4 0.3 - 1.2 MG/DL Albumin 2.7 (L) 3.5 - 5.0 G/DL Alk Phosphatase 110 25 - 110 U/L AST (SGOT) 28 7 - 40 U/L CO2 23 21 - 30 MMOL/L ALT (SGPT) 18 7 - 56 U/L Anion Gap 6 3 - 12 eGFR Non >60 >60 mL/min eGFR >60 >60 mL/min POC GLUCOSE Collection Time: 08/11/18 9:37 AM Result Value Ref Range Glucose, POC 235 (H) 70 - 100 MG/DL Point of Care Testing (Last 24 hours) Glucose: (!) 222 (08/11/18 0403) POC Glucose (Download): (!) 235 (08/11/18 9681) Radiology and other Diagnostics Review: Pertinent radiology reviewed. No results found. Chau Gomez MD Pager [phone] * Aleyda Reeder, PT - 08/11/2018 11:31 AM CDT PHYSICAL THERAPY PROGRESS NOTE MOBILITY: Progressive Mobility Level: Active transfer to chair Level of Assistance: Assist X1 (second person standby assist) Assistive Device: Walker Time Tolerated: 11-30 minutes Activity Limited By: Weakness;Pain SUBJECTIVE: Significant hospital events: PMHx: L BKA, polysubstance abuse, uncontrolled diabetes, left ventricular thrombus. Admitted from an OSH transfer with chief complaint of left-sided and right-sided pain and noticed to be in DKA, multiple emboli including splenic emboli, renal artery emboli, left femoral artery thrombus with complete occlusion. s/p left femoral thrombectomy and right popliteal and tibial thrombectomy on 08/09. Mental / Cognitive Status: Alert;Oriented;Anxious;Follows Commands Persons Present: Occupational Therapist Pain: Patient complains of pain;During activity;Patient does not rate pain Pain Location: Right;Leg Pain Interventions: Patient pre-medicated;Patient agrees to participate in therapy with modifications to session;Treatment altered to patient's pain tolerance;Elevation of extremity R LE Precautions: Elevate (Rooke boot on in bed) Ambulation Assist: Primary Wheelchair User;Independent Mobility at Household Level with Device Patient Owned Equipment: Manual Wheelchair Home Situation: Lives with Family Type of Home: House Entry Stairs: 1-2 Stairs In-Home Stairs: No Stairs Comments: Patient reports she performs mobility at wheelchair level around her home independently. She stand pivots without a device. Her wheelchair does not fit in the bathroom so she stands, holding onto furniture/doorway to toilet. She reports she bumps up/down the stairs at her home on her bottom. BED MOBILITY/TRANSFERS: Bed Mobility: Supine to Sit: Standby Assist;Head of Bed Elevated Transfer Type: Sit to/from Stand;Stand Pivot Transfer: Assistance Level: To/From;Bed;Bed Side Chair;Minimal Assist;of 1st person;Standby Assist;of 2nd person Transfer: Assistive Device: Roller Walker Transfers: Type Of Assistance: For Balance;For Safety Considerations End Of Activity Status: Up in Chair EDUCATION: Patient educated on mobility expectations for the day: including up to chair for meals and use commode for all toileting needs in order to progress in strength/balance to baseline function ASSESSMENT/PROGRESS: Patient continues to be limited by pain and weakness in her RLE. Large improvement in her strength, balance, and transfer ability this date. AM-PAC 6 Clicks Basic Mobility Inpatient Turning from your back to your side while in a flat bed without using bed rails : None Moving from lying on your back to sitting on the side of a flatbed without using bedrails : None Moving to and from a bed to a chair (including a wheelchair): A Little Standing up from a chair using your arms (e.g. wheelchair, or bedside chair): A Little To walk in hospital room: Total Climbing 3-5 steps with a railing: Total Basic Mobility CMS 0-100%: 47.12 CMS G Code Modifier for Basic Mobility: CK GOALS: Goal Formulation: With Patient Time For Goal Achievement: 6 days Pt Will Go Supine To/From Sit: w/ Stand By Assist, Ongoing Pt Will Transfer Bed/Chair: w/ Stand By Assist, Ongoing Pt Will Transfer Sit to Stand: w/ Stand By Assist, Ongoing Pt Will Propel Wheelchair: >150 Feet, Independently PLAN: Treatment Interventions: Mobility Training;Strengthening;ROM Plan Frequency: 5-7 Days per Week PT Plan for Next Visit: Continue bed mobility from flat bed, stand pivot transfers. Educate on family bumping pt up/down stairs in wheelchair. Potential stand pivot without walker or get walker for home RECOMMENDATIONS: PT Discharge Recommendations: Home with Assistance;Home Health Setting (pending progress) Equipment Recommendations: Potential need for roller walker Comments: Patient has no benefits for inpatient placement. She will need to progress to standby assist in order to safely discharge home. She reports her daughter (31 y/o) will be home with her throughout the day and available to provide assist. Therapist: Aleyda Reeder, PT, DPT Date: 08/11/2018 * Alta Cnocepcion, OT - 08/11/2018 11:30 AM CDT Formatting of this note may be different from the original. OCCUPATIONAL THERAPY Daily Note Patient Name: Betina Baron Room/Bed: AU5125/01 Admitting Diagnosis: dka Past Medical History: Diagnosis Date DM (diabetes mellitus) ([facility]) Polysubstance abuse Mobility Progressive Mobility Level: Active transfer to chair Level of Assistance: Assist X2 Assistive Device: Walker Time Tolerated: 11-30 minutes Activity Limited By: Weakness;Pain Subjective Pertinent Dx per Physician: 48-year-old female with past medical history of L BKA, polysubstance abuse, uncontrolled diabetes, left ventricular thrombus comes in as outside hospital transfer with chief complaint of left-sided and right-sided pain and noticed to be in DKA, multiple emboli including splenic emboli, renal artery emboli, left femoral artery thrombus with complete occlusion. s/p LEFT FEMORAL THROMBECTOMY, RIGHT POPLITEAL AND TIBIAL THROMBECTOMY 08/09 Precautions: Falls;Isolation R LE Precautions: Elevate (Rooke boot on in bed) Pain / Complaints: Patient agrees to participate in therapy Pain Location: (R LE on standing ) Objective Psychosocial Status: Willing and Cooperative to Participate Persons Present: Physical Therapist (Simultaneous filing. User may not have seen previous data.) Home Living Type of Home: House (Simultaneous filing. User may not have seen previous data.) Home Layout: One Level;Stairs to Enter w/ Rails (2 stairs ) Bathroom Shower / Tub: Tub/Shower Unit;Walk-in Shower Bathroom Toilet: Standard Bathroom Equipment: Shower Chair Bathroom Accessibility: Not Accessible Home Equipment: Wheelchair-manual;Shower/Tub Bench Prior Function Level Of Weber: Independent with ADLs and functional transfers;Needed assistance with homemaking Lives With: Daughter (ex- ) Receives Help From: Family Vocational: Unemployed Vision Current Vision: No Visual Deficits ADL's: 08/11/18: (cotx with PT today) UE Dressing Assist: Stand By Assist LE Dressing Assist: Total Assist LE Dressing Deficits: Don/Doff R Sock Functional Transfer Assist: Minimal assist of 1, stand by of a 2nd Functional Transfer Deficits: (stand pivot adamslinda ) Comment: pt going supine to sit with stand by assist for lines. Pt standing with minimal assist of one; 2nd for line management. Pt used walker and transferred to chair with 2-3 small hops with verbal cues for process. Pt left up in chair with all needs addressed. Bedside commode brought in room for pt to use when needed. PT spoke with pts RN about transfer improvement. Activity Tolerance Sitting Balance: 4/5 Moves/Returns Trunkal Midpoint 1-2 Inches in Multiple Planes Cognition Overall Cognitive Status: WFL to Adequately Complete Self Care Tasks Safely UE PROM Overall BUE PROM WNL: Yes UE AROM Overall BUE AROM WNL: Yes UE Strength / Tone Overall Strength / Tone: WFL Able to Perform ADL Tasks Education Goal Formulation: With Patient Assessment Assessment: Decreased ADL Status;Decreased UE Strength;Decreased Endurance; Decreased Self-Care Trans Prognosis: Good;w/Cont OT s/p Acute Discharge Goal Formulation: Patient AM-PAC 6 Clicks Daily Activity Inpatient Putting on and taking off regular lower body clothes?: Total Bathing (Including washing, rinsing, drying): A Lot Toileting, which includes using toilet, bedpan, or urinal: A Lot Putting on and taking off regular upper body clothing: A Little Taking care of personal grooming such as brushing teeth: A Little Eating meals?: None Daily Activity Raw Score: 15 Standardized (t-scale) score: 34.69 CMS 0-100% Score: 56.46 CMS G Code Modifier: CK Plan OT Frequency: 5x/week OT Plan for Next Visit: BSC or w/c adamsilnda, grooming at w/c level Further Evaluation Goals Pt Will Tolerate Further ADL Evaluation: w/in1-2 sessions; ADL Goals Patient Will Perform Grooming: w/ Mod Independent;in Wheelchair Patient Will Perform LE Dressing: w/ Minimum Assist Patient Will Perform Toileting: w/ Moderate Assist Functional Transfer Goals Pt Will Perform All Functional Transfers: w/ Stand By Assist Pt Will Transfer To Bedside Commode: w/ Stand By Assist OT Discharge Recommendations OT Discharge Recommendations: Inpatient Setting Equipment Recommendations: Too early to be determined Therapist: CARISA Blancas/Claus [id number] Date: 08/11/2018 * García Cooper MD - 08/11/2018 9:54 AM CDT Formatting of this note may be different from the original. Infectious Disease Progress Note Name: Betina Baron Today's Date: 08/11/2018 Assessment: 1. Polysubstance abuse - long-term methamphetamine user (smoke); distant crack cocaine use reportedly - Denies IVDA - Patient's UDS was positive for opiates, methamphetamines and amphetamines at OSH - Current ppd tobacco smoker 2. LV Thrombus + arterial emboli / cardiomyopathy - echo (04/11/18): Moderately dilated LV with severely reduced EF=15 %. 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 Mild eccentric LV hypertrophy. Normal RV. Moderate LA dilation; mild atrial dilation; elevated CVP; normal valvular structures - Cardiology consulted - carvedilol,lisinopril, spironolactone, lasix - CTA abdomen with aortogram + bilateral runoff (08/09/18): small pericardial effusion, wedge-shaped defect in segment 7 of the liver, wedge shaped hypodensities throughout the spleen and left kidney consistent with thrombotic events. CTA also demonstrated left ventricular mass consistent with thrombus, complete occlusion of the left proximal femoral and femoral profundus arteries, complete occlusion at the level of the right popliteal artery and enlarged uterus likely secondary to fibroid. - OR (08/09/18): eft common femoral, profunda and superficial femoral artery thrombectomy followed by closure with bovine pericardial patch. She underwent thrombectomy of the right SFA, popliteal artery, anterior tibial artery, posterior tibial artery and peroneal artery. Attempted thrombectomy was performed at the right posterior and anterior tibial arteries, however, there were findings of chronic arterial occlusion Bacteremia -Per outside hospital "growing GPCs" Called [facility] lab in [place], [place] to request records which show in 1/2 bottles: Staph aureus Probable enterococcus species -> later reported as beta-hemolytic Strep Staph, Coag Neg - etiology unknown - Patient placed on broad-spectrum IV antibiotics Vanc/cefepime - Blood cultures have been obtained 08/09 NGTD, and 08/10 Uncontrolled diabetes - reportedly BG levels as high as 800s in recent past - last HgA1C on file at [facility] from 04/11/18 was 10.5 Antimicrobial Intolerance/Sensitivity - Penicillin- said to cause rash, hive, and shortness of breath Recommendations: Please continue: Daptomycin 10mg/kg q24hr D/c ceftaroline based on culture results Obtain PATRIA to evaluate for perivalvular abscess. Await culture results from [facility] lab, [place], [place], for further adjustments to antibiotics Currently growing Staph aureus, Bertrand hemolytic strep Upon further attempt to discuss the etiology of these thrombi with the patient, she states that although she knew about her LV thrombus, she was never educated about any workup that may have been done to determine a cause. Would recommend obtaining records from [facility] (asked nurse to fill out care everywhere form).. If no workup has been completed. Would recommend workup to r/ o possible causes of multiple thrombi (afib, hypercoagulability syndrome, occult malignancy). ATTESTATION I personally performed or re-performed the history, physical exam and treatment for E/M. I discussed the case with the Medical Student, and concur with the Medical Student documentation of history, physical exam and treatment plan unless otherwise noted. Patient is feeling well today. She denies headache, facial asymmetry, weakness of the upper or lower extremities, chest pain, worsening shortness of breath, cough, nausea, vomiting, diarrhea or significant postoperative pain. Her appetite has been good. The outside lab was contacted today. GPC previously reported as probable enterococcus now identified as beta hemolytic Streptococcus. Patient is also growing staph aureus. Susceptibilities of both are currently pending. Regarding antimicrobial therapy, we will discontinue the ceftaroline given the above findings and continue with high-dose IV daptomycin as we await final culture results. As the patient grew staph aureus from the blood, would recommend PATRIA to evaluate for possible paravalvular abscess. I believe this may be helpful information, even though the patient would be a poor surgical candidate. Regarding etiology behind LV clot, recommend obtaining discharge summary from hospitalization at [facility] in [facility] from earlier this year. She was diagnosed originally with the LV clot at that time and later discontinued the anticoagulant on her own. Patient discussed with Dr. Gomez. Discharge planning for her will be quite challenging given her social and current clinical situation. If ID assistance needed over weekend, please contact ID chemical production engineer. Dr. Navjot Can will begin seeing pt on Tuesday08/14/18. García Cooper MD pager *[phone] Division of Infectious Diseases __ Interval History Pt states that she feels well, did well overnight. She is in no acute pain at this time, stating the pain in her legs has subsided since her thrombectomies were performed. She has transitioned from heparin drip to lovenox. Tolerating well. Blood cultures done 08/09 and 08/10 remain NGTD. Vascular surgery continues to follow, and will update us on post-surgical plan. Antimicrobial Start date End date Daptomycin 08/10 active Ceftaroline 08/10 Active Estimated Creatinine Clearance: 83.7 mL/min (based on SCr of 0.87 mg/dL). Medications Scheduled Meds: aspirin EC tablet 81 mg 81 mg Oral QDAY atorvastatin (LIPITOR) tablet 80 mg 80 mg Oral QDAY carvedilol (COREG) tablet 3.125 mg 3.125 mg Oral BID ceftaroline (TEFLARO) 600 mg in sodium chloride 0.9% (NS) 70 mL IVPB 600 mg Intravenous Q12H DAPTOmycin (CUBICIN) injection 700 mg 10 mg/kg (Adjusted) Intravenous Q24H* enoxaparin (LOVENOX) syringe 70 mg 70 mg Subcutaneous BID ferrous sulfate (FEOSOL, FEROSUL) tablet 325 mg 325 mg Oral BID w/meals insulin aspart U-100 (NOVOLOG FLEXPEN) injection PEN 0-14 Units 0-14 Units Subcutaneous ACHS insulin aspart U-100 (NOVOLOG FLEXPEN) injection PEN 8 Units 8 Units Subcutaneous TID w/ meals insulin glargine (LANTUS SOLOSTAR, BASAGLAR) injection PEN 30 Units 30 Units Subcutaneous QHS lisinopril (PRINIVIL; ZESTRIL) tablet 2.5 mg 2.5 mg Oral QDAY polyethylene glycol 3350 (MIRALAX) packet 17 g 1 packet Oral BID senna/docusate (SENOKOT-S) tablet 1 tablet 1 tablet Oral BID spironolactone (ALDACTONE) tablet 25 mg 25 mg Oral QDAY Continuous Infusions: PRN and Respiratory Meds:benzocaine/menthol Q2H PRN, fentaNYL citrate PF Q1H PRN , oxyCODONE Q4H PRN Physical Examination Vital Signs: Last Vital Signs: 24 Hour Range BP: 83/46 (08/11 0000) Temp: 36.9 C (98.5 F) (08/11 08) Pulse: 83 (08/11 900) Respirations: 17 PER MINUTE (08/11 900) SpO2: 97 % (08/11 900) O2 Delivery: None (Room Air) (08/11 800) SpO2 Pulse: 83 (08/11 900) Height: 180.3 cm (71") (08/10 1048) BP: (80-100)/(43-65) Temp: [36.8 C (98.2 F)-37.5 C (99.5 F)] Pulse: [75-88] Respirations: [14 PER MINUTE-21 PER MINUTE] SpO2: [96 %-100 %] O2 Delivery: None (Room Air) General appearance: alert, oriented, NAD, unkempt, appears older than stated age HEENT: mucus membranes moist, no oral lesions/thrush; PERRL, EOM grossly intact , Conj nl, largely edentulous with many missing/broken teeth Neck: supple, no lymphadenopathy, thyroid not palpable Lungs: no wheezing, rhonchi, rales appreciated Heart: Regular rhythm, reg rate, with no murmur, rub, gallop Abdomen: soft, non-tender, non-distended, normoactive bowel sounds, no hepatosplenomegaly, no masses Ext: No clubbing, cyanosis or edema, swelling apparent of the right forearm, likely related to IV placement No peripheral stigmata of endocarditis Skin: no rashes/lesions, multiple tattoos throughout the body Lymph: no cervical, axillary or inguinal adenopathy Lines: Laboratory Hematology Recent Labs 08/09/18 0810 08/09/18 1500 08/09/18 2004 08/10/18 0314 08/10/18 1315 08/11/18 0403 WBC -- 20.9* -- 19.2* -- 12.7* HGB -- 8.0* -- 7.7* -- 7.3* HCT -- 26.8* -- 25.0* -- 22.9* PLTCT -- 275 -- 227 -- 208 PTT -- -- 24.2 22.1 21.9 -- INR 1.1 -- -- -- -- -- Chemistry Recent Labs 08/09/18 1500 08/10/18 0314 08/11/18 0403 NA 128* 127* 125* K 3.9 4.2 4.4 CL 100 98 96* CO2 20* 22 23 BUN 19 23 24 CR 0.90 0.93 0.87 GFR >60 >60 >60 GLU 185* 272* 222* CA 7.8* 8.3* 8.0* PO4 2.7 -- -- ALBUMIN 2.8* 2.8* 2.7* ALKPHOS 81 92 110 AST 48* 40 28 ALT 25 28 18 TOTBILI 0.5 0.4 0.4 Microbiology, Radiology and other Diagnostics Review Microbiology reviewed. Pertinent radiology viewed. Jonathan Latif MS4 Division of Infectious Diseases * Dani Juárez MD - 08/11/2018 8:22 AM CDT Formatting of this note may be different from the original. Daily Progress Note Today's Date: 08/11/2018 Name: Betina Baron Admission Date: 08/09/2018 (LOS: 2 days) Assessment: Betina Baron is a 48 y.o. female with a pmh of DM, LV thrombus who presented from an OSH in [facility] with splenic and renal artery emboli and right and left lower extremity ischemia secondary to left common femoral, profunda, and SFA occlusion and right popliteal and trifurcation occlusion who is now 2 Days Post-Op from Procedure(s) (LRB): LEFT FEMORAL THROMBECTOMY, RIGHT POPLITEAL AND TIBIAL THROMBECTOMY (Bilateral) ( 08/09/2018) with Dr. Mccarthy. Active Problems: Mass of heart Acute systolic CHF (congestive heart failure) (HCC) LV (left ventricular) mural thrombus without ID Polysubstance abuse (HCC) DM (diabetes mellitus) (HCC) Bacteremia due to Gram-positive bacteria Moderate malnutrition (HCC) Plan: - transitioned to lovenox yesterday - Q4h vascular checks - OK to d/c fernández - okay for diet, home meds from vascular surgery standpoint - Rooke boot to RLE. Patient can discharge with this and should use as much as possible. May remove for transfers - vascular surgery will follow along, page [phone] with questions Harpreet Dugan MD Pager [phone] Subjective: No acute events overnight. Pain is well-controlled. Patient is not having nausea , has not vomited, is tolerating DIET CARDIAC (LOW FAT/LOW NA) & DIABETIC, is not ambulating. Objective: BP: (80-100)/(43-65) Temp: [36.8 C (98.2 F)-37.5 C (99.5 F)] Pulse: [75-88] Respirations: [14 PER MINUTE-21 PER MINUTE] SpO2: [96 %-100 %] O2 Delivery: None (Room Air) Lab Results Component Value Date/Time NA 125 (L) 08/11/2018 04:03 AM K 4.4 08/11/2018 04:03 AM CL 96 (L) 08/11/2018 04:03 AM CO2 23 08/11/2018 04:03 AM BUN 24 08/11/2018 04:03 AM CR 0.87 08/11/2018 04:03 AM MG 1.8 08/09/2018 03:00 PM PO4 2.7 08/09/2018 03:00 PM Lab Results Component Value Date/Time HGB 7.3 (L) 08/11/2018 04:03 AM HCT 22.9 (L) 08/11/2018 04:03 AM WBC 12.7 (H) 08/11/2018 04:03 AM PLTCT 208 08/11/2018 04:03 AM INR 1.1 08/09/2018 08:10 AM Lab Results Component Value Date/Time GLUPOC 140 (H) 08/10/2018 08:46 PM GLUPOC 176 (H) 08/10/2018 05:46 PM GLUPOC 195 (H) 08/10/2018 12:06 PM Physical Exam Constitutional: She is oriented to person, place, and time. She appears well- developed and well-nourished. No distress. HENT: Head: Normocephalic and atraumatic. Cardiovascular: Normal rate and intact distal pulses. Pulses: Radial pulses are 2+ on the right side, and 2+ on the left side. Femoral pulses are 2+ on the right side, and 2+ on the left side. Dorsalis pedis pulses are 0 on the right side. Posterior tibial pulses are 0 on the right side. RLE with monophasic doppler signal in PT, no DP LLE with doppler signals in popliteal Pulmonary/Chest: Effort normal. No respiratory distress. Abdominal: Soft. She exhibits no distension. There is no tenderness. Musculoskeletal: Normal range of motion. Incisions c/d/i covered with dermabond BLE warm without mottling, full ROM Neurological: She is alert and oriented to person, place, and time. Skin: Skin is warm and dry. Psychiatric: She has a normal mood and affect. Her behavior is normal. Judgment and thought content normal. Harpreet Dugan MD Service Pager: # [phone] * Mayra Barney RN - 08/11/2018 7:47 AM CDT 0730: Assumed care of patient. Bedside safety check completed with can top setter RN. Lines and alarms verified. 0800: Assessment completed and documented per ICU flowsheet. Patient VSS per patient trend. Orders reviewed and implemented. Bed locked low. Call light in reach. Will continue to monitor and assess. * Marjan Latif RN - 08/10/2018 4:38 PM CDT Patient's last two blood pressures were 86/49 and 80/65, patient asymptomatic, sitting up in bed talking with capping machine operator. Team paged, no new orders at this time. * Harpreet Dugan MD - 08/10/2018 3:48 PM CDT Formatting of this note may be different from the original. Daily Progress Note Today's Date: 08/10/2018 Name: Betina Baron Admission Date: 08/09/2018 (LOS: 1 day) Assessment: Betina Baron is a 48 y.o. female with a pmh of DM, LV thrombus who presented from an OSH in D[place] with splenic and renal artery emboli and right and left lower extremity ischemia secondary to left common femoral, profunda, and SFA occlusion and right popliteal and trifurcation occlusion who is now 1 Day Post-Op from Procedure(s) (LRB): LEFT FEMORAL THROMBECTOMY, RIGHT POPLITEAL AND TIBIAL THROMBECTOMY (Bilateral) ( 08/09/2018) with Dr. Mccarthy. Active Problems: Mass of heart Acute systolic CHF (congestive heart failure) (HCC) LV (left ventricular) mural thrombus without ID Polysubstance abuse (HCC) DM (diabetes mellitus) (HCC) Bacteremia due to Gram-positive bacteria Plan: - continue heparin gtt on protocol - Q2h vascular checks - okay for diet from vascular surgery standpoint - Rooke boot to RLE - recommend general surgery consult for splenic infarcts - vascular surgery will follow along, page [phone] with questions Harpreet Dugan MD Pager [phone] Subjective: No acute events overnight. Pain is well-controlled. Patient is not having nausea , has not vomited, is tolerating DIET CARDIAC (LOW FAT/LOW NA) & DIABETIC, is not ambulating. Objective: BP: (88-105)/(43-69) Temp: [37 C (98.6 F)-38 C (100.4 F)] Pulse: [82-95] Respirations: [14 PER MINUTE-20 PER MINUTE] SpO2: [96 %-100 %] O2 Delivery: None (Room Air) Lab Results Component Value Date/Time NA 127 (L) 08/10/2018 03:14 AM K 4.2 08/10/2018 03:14 AM CL 98 08/10/2018 03:14 AM CO2 22 08/10/2018 03:14 AM BUN 23 08/10/2018 03:14 AM CR 0.93 08/10/2018 03:14 AM MG 1.8 08/09/2018 03:00 PM PO4 2.7 08/09/2018 03:00 PM Lab Results Component Value Date/Time HGB 7.7 (L) 08/10/2018 03:14 AM HCT 25.0 (L) 08/10/2018 03:14 AM WBC 19.2 (H) 08/10/2018 03:14 AM PLTCT 227 08/10/2018 03:14 AM INR 1.1 08/09/2018 08:10 AM Lab Results Component Value Date/Time GLUPOC 195 (H) 08/10/2018 12:06 PM GLUPOC 201 (H) 08/10/2018 07:33 AM GLUPOC 289 (H) 08/10/2018 03:18 AM Physical Exam Constitutional: She is oriented to person, place, and time. She appears well- developed and well-nourished. No distress. HENT: Head: Normocephalic and atraumatic. Cardiovascular: Normal rate and intact distal pulses. Pulses: Radial pulses are 2+ on the right side, and 2+ on the left side. Femoral pulses are 2+ on the right side, and 2+ on the left side. Dorsalis pedis pulses are 0 on the right side. Posterior tibial pulses are 0 on the right side. Pulmonary/Chest: Effort normal. No respiratory distress. Abdominal: Soft. She exhibits no distension. There is no tenderness. Musculoskeletal: Normal range of motion. LLE BKA, doppler signals in popliteal RLE with doppler signals in DP and PT Incisions c/d/i covered with dermabond BLE warm without mottling Neurological: She is alert and oriented to person, place, and time. Skin: Skin is warm and dry. Psychiatric: She has a normal mood and affect. Her behavior is normal. Judgment and thought content normal. Harpreet Dugan MD Service Pager: # [phone] Associated attestation - Chandler Coburn MD - 08/10/2018 7:21 PM CDT Formatting of this note may be different from the original. ATTESTATION I personally performed the rodriguez portions of the E/M visit, discussed case with resident and concur with resident documentation of history, physical exam, assessment, and treatment plan unless otherwise noted. She is without new complaints. She reports left leg pain has resolved. She is currently on a heparin infusion. She will need to be transitioned to an oral agent to facilitate discharge. Will continue to follow while she is in the hospital. 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 Staff name: Chandler Coburn MD Date: 08/10/2018 * Ebony Angeles, OT - 08/10/2018 1:15 PM CDT Formatting of this note may be different from the original. OCCUPATIONAL THERAPY ASSESSMENT NOTE Patient Name: Betina Baron Room/Bed: [place] [address] Admitting Diagnosis: dka Past Medical History: Diagnosis Date DM (diabetes mellitus) (HCC) Polysubstance abuse Mobility Progressive Mobility Level: Active transfer to chair Level of Assistance: Assist X2 Assistive Device: Walker Time Tolerated: 11-30 minutes Activity Limited By: Weakness;Pain Subjective Pertinent Dx per Physician: 48-year-old female with past medical history of L BKA, polysubstance abuse, uncontrolled diabetes, left ventricular thrombus comes in as outside hospital transfer with chief complaint of left-sided and right-sided pain and noticed to be in DKA, multiple emboli including splenic emboli, renal artery emboli, left femoral artery thrombus with complete occlusion. s/p LEFT FEMORAL THROMBECTOMY, RIGHT POPLITEAL AND TIBIAL THROMBECTOMY 08/09 Precautions: Falls;Isolation R LE Precautions: Elevate (Rooke boot on in bed) Pain / Complaints: Patient agrees to participate in therapy Pain Location: (R LE on standing ) Objective Psychosocial Status: Willing and Cooperative to Participate Persons Present: Physical Therapist (Simultaneous filing. User may not have seen previous data.) Home Living Type of Home: House (Simultaneous filing. User may not have seen previous data.) Home Layout: One Level;Stairs to Enter w/ Rails (2 stairs ) Bathroom Shower / Tub: Tub/Shower Unit;Walk-in Shower Bathroom Toilet: Standard Bathroom Equipment: Shower Chair Bathroom Accessibility: Not Accessible Home Equipment: Wheelchair-manual;Shower/Tub Bench Prior Function Level Of Weber: Independent with ADLs and functional transfers;Needed assistance with homemaking Lives With: Daughter (ex- ) Receives Help From: Family Vocational: Unemployed Vision Current Vision: No Visual Deficits ADL's UE Dressing Assist: Stand By Assist LE Dressing Assist: Total Assist LE Dressing Deficits: Don/Doff R Sock Functional Transfer Assist: Moderate Assist (x2) Functional Transfer Deficits: (stand pivot trasnfer ) Comment: patient required minimal assist with supine>sit, tolerated sitting at EOB well, slight dizziness at EOB which resolved quickly, total assist with donning socks, required moderate assist with sit>Stand and stand pivot trasnfer to recliner chair using RW. old IV site on R forearm was lucy, RN notified, RN in to assist patient with the same. chair alarm activated Activity Tolerance Sitting Balance: 4/5 Moves/Returns Trunkal Midpoint 1-2 Inches in Multiple Planes Cognition Overall Cognitive Status: WFL to Adequately Complete Self Care Tasks Safely UE PROM Overall BUE PROM WNL: Yes UE AROM Overall BUE AROM WNL: Yes UE Strength / Tone Overall Strength / Tone: WFL Able to Perform ADL Tasks Education Goal Formulation: With Patient Assessment Assessment: Decreased ADL Status;Decreased UE Strength;Decreased Endurance; Decreased Self-Care Trans Prognosis: Good;w/Cont OT s/p Acute Discharge Goal Formulation: Patient AM-PAC 6 Clicks Daily Activity Inpatient Putting on and taking off regular lower body clothes?: Total Bathing (Including washing, rinsing, drying): A Lot Toileting, which includes using toilet, bedpan, or urinal: A Lot Putting on and taking off regular upper body clothing: A Little Taking care of personal grooming such as brushing teeth: A Little Eating meals?: None Daily Activity Raw Score: 15 Standardized (t-scale) score: 34.69 CMS 0-100% Score: 56.46 CMS G Code Modifier: CK Plan OT Frequency: 5x/week OT Plan for Next Visit: BSC or w/c trasnfer, grooming at w/c level Further Evaluation Goals Pt Will Tolerate Further ADL Evaluation: w/in1-2 sessions ADL Goals Patient Will Perform Grooming: w/ Mod Independent;in Wheelchair Patient Will Perform LE Dressing: w/ Minimum Assist Patient Will Perform Toileting: w/ Moderate Assist Functional Transfer Goals Pt Will Perform All Functional Transfers: w/ Stand By Assist Pt Will Transfer To Bedside Commode: w/ Stand By Assist OT Discharge Recommendations OT Discharge Recommendations: Inpatient Setting Equipment Recommendations: Too early to be determined Therapist: [place] [id number] Date: 08/10/2018 * Aleyda Reeder, PT - 08/10/2018 1:15 PM CDT PHYSICAL THERAPY ASSESSMENT MOBILITY: Progressive Mobility Level: Active transfer to chair Level of Assistance: Assist X2 Assistive Device: Walker Time Tolerated: 11-30 minutes Activity Limited By: Weakness;Pain SUBJECTIVE: Significant hospital events: PMHx: L BKA, polysubstance abuse, uncontrolled diabetes, left ventricular thrombus. Admitted from an OSH transfer with chief complaint of left-sided and right-sided pain and noticed to be in DKA, multiple emboli including splenic emboli, renal artery emboli, left femoral artery thrombus with complete occlusion. s/p left femoral thrombectomy and right popliteal and tibial thrombectomy on 08/09. Mental / Cognitive Status: Alert;Oriented;Anxious;Follows Commands Persons Present: Occupational Therapist;Nursing Staff Pain: Patient complains of pain;During activity;Patient does not rate pain Pain Location: Right;Leg Pain Interventions: Patient pre-medicated;Patient agrees to participate in therapy with modifications to session;Treatment altered to patient's pain tolerance;Elevation of extremity R LE Precautions: Elevate (Rooke boot on in bed) Ambulation Assist: Primary Wheelchair User;Independent Mobility at Household Level with Device Patient Owned Equipment: Manual Wheelchair Home Situation: Lives with Family Type of Home: House Entry Stairs: 1-2 Stairs In-Home Stairs: No Stairs Comments: Patient reports she performs mobility at wheelchair level around her home independently. She stand pivots without a device. Her wheelchair does not fit in the bathroom so she stands, holding onto furniture/doorway to toilet. She reports she bumps up/down the stairs at her home on her bottom. ROM: ROM Method: Active Assistive ROM Comments: Left knee flexion to 80 degrees, left knee extension lacking ~15 degrees from full extension. Right knee and ankle WNL. STRENGTH: Overall Strength: Generalized Weakness Gross Strength Grade: 4/5 Strength Comment: Limited mostly by RLE pain BED MOBILITY/TRANSFERS: Bed Mobility: Supine to Sit: Minimal Assist;Head of Bed Elevated Transfer Type: Sit to/from Stand;Stand Pivot Transfer: Assistance Level: To/From;Bed;Bed Side Chair;Moderate Assist;x2 People Transfer: Assistive Device: Roller Walker Transfers: Type Of Assistance: For Balance;For Strength Deficit;For Safety Considerations End Of Activity Status: Up in Chair ACTIVITY/EXERCISE: Sit Edge Of Bed: 8 minutes Sit Edge Of Bed Assist: Stand By Assist Stand At Bedside : 1 minutes Stand At Bedside Assist: Minimal Assist;x2 People (with roller walker support) EDUCATION: Persons Educated: Patient Patient Barriers To Learning: Pain;Anxiety Interventions: Repetition of Instructions Patient Response: Verbalized Understanding;More Instruction Required Topics: Plan/Goals of PT Interventions;Use of Assistive Device/Orthosis; Mobility Progression;Equipment Recommendations;Positioning;Therapy Schedule; Recommend Continued Therapy ASSESSMENT/PROGRESS: Impaired Mobility Due To: Pain;Post Surgical Changes Comments: Patient is currently limited by post surgical pain. She is requiring assist x 2 people for safe mobility and will need to progress toward independence in order to safely discharge home. AM-PAC 6 Clicks Basic Mobility Inpatient Turning from your back to your side while in a flat bed without using bed rails : A Little Moving from lying on your back to sitting on the side of a flatbed without using bedrails : A Little Moving to and from a bed to a chair (including a wheelchair): Total Standing up from a chair using your arms (e.g. wheelchair, or bedside chair): Total To walk in hospital room: Total Climbing 3-5 steps with a railing: Total Basic Mobility CMS 0-100%: 71.92 CMS G Code Modifier for Basic Mobility: CL GOALS: Goal Formulation: With Patient Time For Goal Achievement: 6 days Pt Will Go Supine To/From Sit: w/ Stand By Assist Pt Will Transfer Bed/Chair: w/ Stand By Assist Pt Will Transfer Sit to Stand: w/ Stand By Assist Pt Will Propel Wheelchair: >150 Feet, Independently PLAN: Treatment Interventions: Mobility Training;Strengthening;ROM Plan Frequency: 5-7 Days per Week PT Plan for Next Visit: Progress standing tolerance/ability with walker, stand pivot transfers, wheelchair mobility, before discharge needs to demonstrate ability to perform stairs as she normally would (potential floor transfer or if family can bump her up in wheelchair) RECOMMENDATIONS: PT Discharge Recommendations: Inpatient Setting;versus;Home with Assistance (At this time recommend an inpatient setting. If patient makes good progress, potentially discharge home, however, she is not functioning near her baseline level at this time. Requiring assist x 2 people when she was independent prior to admission) Equipment Recommendations: Too early to be determined Therapist: Aleyda Reeder PT, DPT Date: 08/10/2018 * Mg Ho - 08/10/2018 10:49 AM CDT ORTHOTICS/PROSTHETICS Consult Note: NAME: Betina Baron ADMISSION DATE: admitted to hospital : 1970 AGE: 48 y.o. ROOM: [id number] DOCTOR: Date of Order: 08/10/18 Date of Service: 08/10/18 Services referred for: Orthotic Eval and Treat: Rooke Boot Description of condition/injury, including services:Thrombosis of popliteal artery Size: Reg Rooke Boot Side Rt Measurements: Area/circumference/Diameter/Length None Functional Goals discussed for device use: Promote LE vascular flow and protect skin integrity Device is to be ordered No Estimated date of delivery Today Functional goals met: Rooke Boot delivered to pt's room for RN to fit after doctor's eval. The patient states satisfaction with the fit/function of device: n/a Additional supplies provided to the patient: None Patient Education: Written instruction/information provided to patient's room. Information provided: device function, donning/doffing of device and care and cleaning Patient did tolerate the procedure without incident/problem. Follow-up scheduled: PRN PLAN: Order completed Mg Ho 08/10/2018 * Chau Gomez MD - 08/10/2018 7:55 AM CDT Formatting of this note may be different from the original. General Progress Note Name: Betina Baron Today's Date: 08/10/2018 Admission Date: 08/09/2018 LOS: 1 day Assessment/Plan: Active Problems: Mass of heart Acute systolic CHF (congestive heart failure) (HCC) LV (left ventricular) mural thrombus without ID Polysubstance abuse (HCC) DM (diabetes mellitus) (HCC) 48-year-old female with past medical history of polysubstance abuse, uncontrolled diabetes, left ventricular thrombus comes in as outside hospital transfer with chief complaint of left-sided and right-sided pain and noticed to be in DKA, multiple emboli including splenic emboli, renal artery emboli, left femoral artery thrombus with complete occlusion. Multiple arterial thrombus/B/L LE Ischemia -Patient with known left ventricular thrombus, noncompliant on her anticoagulation -Outside hospital report showing left renal artery emboli, splenic emboli, left femoral artery thrombus with occlusion -Last CTA of the abdomen pelvis at 04/01/2018 here at [facility] shows only left ventricular thrombus -CTA on admission:Left ventricular mass is redemonstrated, consistent with known thrombus.Known complete occlusion of the left femoral rate. Complete occlusion of the right popliteal artery with collateral reconstitution of the trifurcation vessels which are poorly opacified.Patchy wedge-shaped hypodensities throughout the spleen and left kidney consistent with known splenic and renal emboli. Increase in size in fat-containing umbilical hernia and improvement in diffuse body wall edema. Moderate luminal narrowing of the infrarenal abdominal aorta without aneurysm.Enlarged likely fibroid uterus, unchanged from prior exam. If abnormal there is uterine bleeding, dedicated ultrasound exam is recommended. Small right lung base nodule is identified that is unchanged from the prior exam. -cont IV heparin -vascular surgery Consulted, -s/p LEFT FEMORAL THROMBECTOMY, RIGHT POPLITEAL AND TIBIAL THROMBECTOMY 08/09 -patient is non complaint with coumadin and INR checks, coumadin is not a good option. I discussed with her PCP who start working on financial assistance program for xarelto , if we could give her a month supply. Will d/w SW/NCM -pain control Bowel regimen Sepsis/GPC bacteremia -tmax 100.4 f last night, leukocytosis -blood c/s- from OSH reportedly growing GPC -on IV antibiotics:vanc and cefepime -repeat Blood cultures x2 -ID consult Hyponatremia -likely from CHF -stable -monitor Uncontrolled diabetes -off insulin gtt IV -Check hba1c -increase lantus 30 hs , cont ISS and add schedule Novolog 8 u tid -Diabetes nurse educator has been consulted Chronic microcytic Anemia:GLENNY -iron studies in the past showed GLENNY -s/p 1 prbc in OR -hb stable -add po iron -monitor Chronic systolic congestive heart failure -Continue 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 Disposal -cont IP admission I spent a total of 40 minutes in pt care today with an estimated 20 minutes spent reviewing course to date, including chart review of vitals, labs, overnight events, and coordinating care. Complexity of medical decision making is high because of the multi-system nature of disease process. Subjective Betina Baron is a 48 y.o. female. Patient reports pain in her both legs /10. Denies any pain in her chest or abdomen. No n/v. No fever ,chills. Constipated.no bm in last 3 days. Admits to using meth, but smokes .no iv drug use. Smokes cigarettes. Non complaint with medications. Doesn't check blood sugars and also not checking inr Medications Scheduled Meds: aspirin EC tablet 81 mg 81 mg Oral QDAY atorvastatin (LIPITOR) tablet 80 mg 80 mg Oral QDAY carvedilol (COREG) tablet 3.125 mg 3.125 mg Oral BID cefepime (MAXIPIME) 2 g/100 ml iso-osmotic IVPB 2 g Intravenous Q8H* furosemide (LASIX) tablet 40 mg 40 mg Oral QDAY insulin aspart U-100 (NOVOLOG FLEXPEN) injection PEN 0-14 Units 0-14 Units Subcutaneous ACHS insulin glargine (LANTUS SOLOSTAR, BASAGLAR) injection PEN 20 Units 20 Units Subcutaneous QHS lisinopril (PRINIVIL; ZESTRIL) tablet 2.5 mg 2.5 mg Oral QDAY vancomycin (VANCOCIN) 1,000 mg in dextrose 5% (D5W) 250 mL IVPB (Sthj3Mrq) 15 mg /kg Intravenous Q12H* Continuous Infusions: heparin (porcine) 20,000 units/D5W 500 mL infusion (std conc)(premade) 1, 400 Units/hr (08/10/18 0732) PRN and Respiratory Meds:benzocaine/menthol Q2H PRN, fentaNYL citrate PF Q1H PRN , oxyCODONE Q4H PRN, vancomycin, pharmacy to manage Per Pharmacy Review of Systems: A 14 point review of systems was negative except for: Musculoskeletal: positive for leg pain Objective: Vital Signs: Last Filed Vital Signs: 24 Hour Range BP: 105/62 (08/10 322) Temp: 37.9 C (100.3 F) (08/10 322) Pulse: 92 (08/10 322) Respirations: 20 PER MINUTE (08/10 322) SpO2: 96 % (08/10 322) O2 Delivery: None (Room Air) (08/10 400) SpO2 Pulse: 93 (08/10 322) Height: 180.3 cm (71") (08/09 0800) BP: (102-115)/(57-69) ABP: (123-138)/(54-65) Temp: [37 C (98.6 F)-38 C (100.4 F)] Pulse: [88-97] Respirations: [14 PER MINUTE-21 PER MINUTE] SpO2: [96 %-100 %] O2 Delivery: None (Room Air) Intensity Pain Scale (Self Report): 10 (08/09/18 2136) Vitals: 08/09/18 0400 08/09/18 0800 Weight: 68.6 kg (151 lb 3.8 oz) 68.6 kg (151 lb 3.8 oz) Intake/Output Summary: (Last 24 hours) Intake/Output Summary (Last 24 hours) at 08/10/18 0755 Last data filed at 08/10/18 0700 Gross per 24 hour Intake 3187.55 ml Output 1470 ml Net 1717.55 ml Physical Exam General: AO3x, no distress Head: NCAT Eyes: PERRLA EOMI, conjunctival pallor, ENT: Normal external canals b/l,poor dentition Neck: supple Lungs: CTAB Chest wall: No tenderness, n Heart: RRR, no murmurs. Abdomen: soft ,non-tender, bs+, hernia+ Extremities: no edema b/l Peripheral pulses: dopplerable, Skin: Pale Skin, texture, turgor normal. Lymph nodes: No cervical LAD Neurologic:grossly normal Musculoskeletal: left BKA, post op incisions CLD Lab Review 24-hour labs: Results for orders placed or performed during the hospital encounter of (from the past 24 hour(s)) POC GLUCOSE Collection Time: 08/09/18 11:40 AM Result Value Ref Range Glucose, POC 80 70 - 100 MG/DL POC GLUCOSE Collection Time: 08/09/18 12:27 PM Result Value Ref Range Glucose, POC 64 (L) 70 - 100 MG/DL POC GLUCOSE Collection Time: 08/09/18 12:44 PM Result Value Ref Range Glucose, POC 82 70 - 100 MG/DL POC GLUCOSE Collection Time: 08/09/18 1:48 PM Result Value Ref Range Glucose, POC 111 (H) 70 - 100 MG/DL POC GLUCOSE Collection Time: 08/09/18 2:29 PM Result Value Ref Range Glucose, POC 126 (H) 70 - 100 MG/DL CBC AND DIFF Collection Time: 08/09/18 3:00 PM Result Value Ref Range White Blood Cells 20.9 (H) 4.5 - 11.0 K/UL RBC 3.77 (L) 4.0 - 5.0 M/UL Hemoglobin 8.0 (L) 12.0 - 15.0 GM/DL Hematocrit 26.8 (L) 36 - 45 % MCV 70.9 (L) 80 - 100 FL MCH 21.3 (L) 26 - 34 PG MCHC 30.0 (L) 32.0 - 36.0 G/DL RDW 31.8 (H) 11 - 15 % Platelet Count 275 150 - 400 K/UL MPV 8.8 7 - 11 FL Neutrophils 90 (H) 41 - 77 % Lymphocytes 2 (L) 24 - 44 % Monocytes 8 4 - 12 % Eosinophils 0 0 - 5 % Basophils 0 0 - 2 % Absolute Neutrophil Count 18.80 (H) 1.8 - 7.0 K/UL Absolute Lymph Count 0.50 (L) 1.0 - 4.8 K/UL Absolute Monocyte Count 1.60 (H) 0 - 0.80 K/UL Absolute Eosinophil Count 0.00 0 - 0.45 K/UL Absolute Basophil Count 0.00 0 - 0.20 K/UL COMPREHENSIVE METABOLIC PANEL Collection Time: 08/09/18 3:00 PM Result Value Ref Range Sodium 128 (L) 137 - 147 MMOL/L Potassium 3.9 3.5 - 5.1 MMOL/L Chloride 100 98 - 110 MMOL/L Glucose 185 (H) 70 - 100 MG/DL Blood Urea Nitrogen 19 7 - 25 MG/DL Creatinine 0.90 0.4 - 1.00 MG/DL Calcium 7.8 (L) 8.5 - 10.6 MG/DL Total Protein 5.9 (L) 6.0 - 8.0 G/DL Total Bilirubin 0.5 0.3 - 1.2 MG/DL Albumin 2.8 (L) 3.5 - 5.0 G/DL Alk Phosphatase 81 25 - 110 U/L AST (SGOT) 48 (H) 7 - 40 U/L CO2 20 (L) 21 - 30 MMOL/L ALT (SGPT) 25 7 - 56 U/L Anion Gap 8 3 - 12 eGFR Non >60 >60 mL/min eGFR >60 >60 mL/min MAGNESIUM Collection Time: 08/09/18 3:00 PM Result Value Ref Range Magnesium 1.8 1.6 - 2.6 mg/dL PHOSPHORUS Collection Time: 08/09/18 3:00 PM Result Value Ref Range Phosphorus 2.7 2.0 - 4.0 MG/DL PTT (APTT) Collection Time: 08/09/18 8:04 PM Result Value Ref Range APTT 24.2 20.0 - 36.0 SEC POC GLUCOSE Collection Time: 08/09/18 9:06 PM Result Value Ref Range Glucose, POC 412 (H) 70 - 100 MG/DL POC GLUCOSE Collection Time: 08/09/18 11:24 PM Result Value Ref Range Glucose, POC 321 (H) 70 - 100 MG/DL CBC AND DIFF Collection Time: 08/10/18 3:14 AM Result Value Ref Range White Blood Cells 19.2 (H) 4.5 - 11.0 K/UL RBC 3.54 (L) 4.0 - 5.0 M/UL Hemoglobin 7.7 (L) 12.0 - 15.0 GM/DL Hematocrit 25.0 (L) 36 - 45 % MCV 70.6 (L) 80 - 100 FL MCH 21.8 (L) 26 - 34 PG MCHC 30.8 (L) 32.0 - 36.0 G/DL RDW 32.8 (H) 11 - 15 % Platelet Count 227 150 - 400 K/UL MPV 9.3 7 - 11 FL Neutrophils 88 (H) 41 - 77 % Lymphocytes 4 (L) 24 - 44 % Monocytes 7 4 - 12 % Eosinophils 1 0 - 5 % Basophils 0 0 - 2 % Absolute Neutrophil Count 17.00 (H) 1.8 - 7.0 K/UL Absolute Lymph Count 0.80 (L) 1.0 - 4.8 K/UL Absolute Monocyte Count 1.20 (H) 0 - 0.80 K/UL Absolute Eosinophil Count 0.10 0 - 0.45 K/UL Absolute Basophil Count 0.00 0 - 0.20 K/UL COMPREHENSIVE METABOLIC PANEL Collection Time: 08/10/18 3:14 AM Result Value Ref Range Sodium 127 (L) 137 - 147 MMOL/L Potassium 4.2 3.5 - 5.1 MMOL/L Chloride 98 98 - 110 MMOL/L Glucose 272 (H) 70 - 100 MG/DL Blood Urea Nitrogen 23 7 - 25 MG/DL Creatinine 0.93 0.4 - 1.00 MG/DL Calcium 8.3 (L) 8.5 - 10.6 MG/DL Total Protein 5.8 (L) 6.0 - 8.0 G/DL Total Bilirubin 0.4 0.3 - 1.2 MG/DL Albumin 2.8 (L) 3.5 - 5.0 G/DL Alk Phosphatase 92 25 - 110 U/L AST (SGOT) 40 7 - 40 U/L CO2 22 21 - 30 MMOL/L ALT (SGPT) 28 7 - 56 U/L Anion Gap 7 3 - 12 eGFR Non >60 >60 mL/min eGFR >60 >60 mL/min PTT (APTT) Collection Time: 08/10/18 3:14 AM Result Value Ref Range APTT 22.1 20.0 - 36.0 SEC POC GLUCOSE Collection Time: 08/10/18 3:18 AM Result Value Ref Range Glucose, POC 289 (H) 70 - 100 MG/DL POC GLUCOSE Collection Time: 08/10/18 7:33 AM Result Value Ref Range Glucose, POC 201 (H) 70 - 100 MG/DL Point of Care Testing (Last 24 hours) Glucose: (!) 272 (08/10/18 0314) POC Glucose (Download): (!) 201 (08/10/18 6993) Radiology and other Diagnostics Review: Pertinent radiology reviewed. No results found. Chau Gomez MD Pager [phone] * Marla Odell RN - 08/09/2018 11:30 PM CDT 0000: Patient's blood sugar 412, bedside SSI given per EMAR order. Recheck blood sugar 2 hours after correction dose. Recheck blood sugar 321. Scheduled Lantus also given. notified via [employer] Paging. Awaiting call back/further orders. 0330: Patient's blood sugar 289. Dr Olivarez notified and orders received. * Fernando Plaza, RN - 08/09/2018 2:30 PM CDT Pt arrived back to unit via RN's. Pt accessed and vitals taken. Will continue to monitor. * Dani Juárez MD - 08/09/2018 12:28 PM CDT Vascular Surgery Post-op recs -Continue heparin gtt, non-bolus. On protocol -Q1h vascular checks /4h, then q2h ongoing -Rooke boot to RLE -General surgery consult for splenic infarcts, cardiology consult for LV thrombus. -OK for diet from vascular standpoint if no other procedures planned by other consulting teams Dani Juárez MD * Taylor Canela, PHARMD - 08/09/2018 11:31 AM CDT Formatting of this note may be different from the original. Pharmacy Vancomycin Note Subjective: Betina Baron is a 48 y.o. female being treated for Sepsis. Objective: Start Date of Vancomycin therapy: 08/09/2018 Additional Abx: Cefepime White Blood Cells Date/Time Value Ref Range Status 08/09/2018 0423 22.4 (H) 4.5 - 11.0 K/UL Final Creatinine Date/Time Value Ref Range Status 08/09/2018 0423 0.89 0.4 - 1.00 MG/DL Final Blood Urea Nitrogen Date/Time Value Ref Range Status 08/09/2018 0423 22 7 - 25 MG/DL Final Estimated CrCl: 82 mL/min Actual Weight: 68.6 kg (151 lb 3.8 oz) Assessment: Target levels for this patient: ~15mcg/mL Plan: 1. Will initiate 1000mg (~15mg/kg) IV Q12H 2. Next scheduled level(s): Prior to 4th or 5th dose 3. Pharmacy will continue to monitor and adjust therapy as needed. Taylor Canela, PHARMD 08/09/2018 * Marla Odell, NELLY - 08/09/2018 4:30 AM CDT Pt arrived on cart from OSH via EMS. Oriented pt to room, AOD notified and awaiting orders. Pt AAOx4, VS - see doc flowsheet. Complaining of 10/10 LLE throbbing pain. in this encounter H&P Notes * Kim Elias APRN - 08/18/2018 3:25 PM CDT Formatting of this note may be different from the original. Pre Procedure History and Physical/Sedation Plan Procedure Date: 08/18/2018 Planned Procedure(s): Pelvic arteriogram with uterine fibroid embolization Indication for exam: Uterine fibroids- persistent bleeding requiring transfusions Chief Complaint: Uterine fibroids Previous Anesthetic/Sedation History: Denies adverse events Allergies: Pcn [penicillins] Medications: Scheduled Meds: [JAN Hold] acetaminophen (TYLENOL) tablet 500 mg 500 mg Oral Q8H DAPTOmycin (CUBICIN) injection 700 mg 10 mg/kg (Adjusted) Intravenous Q24H* [JAN Hold] enoxaparin (LOVENOX) syringe 70 mg 70 mg Subcutaneous BID [JAN Hold] fentaNYL citrate PF (SUBLIMAZE) injection 25-50 mcg 25-50 mcg Intravenous ONCE [JAN Hold] ferrous sulfate (FEOSOL, FEROSUL) tablet 325 mg 325 mg Oral Q48H* [JAN Hold] hydrocortisone PF (SOLU-CORTEF) injection 100 mg 100 mg Intravenous ONCE [JAN Hold] insulin aspart U-100 (NOVOLOG FLEXPEN) injection PEN 0-14 Units 0-14 Units Subcutaneous ACHS [JAN Hold] insulin aspart U-100 (NOVOLOG FLEXPEN) injection PEN 10 Units 10 Units Subcutaneous TID w/ meals [JAN Hold] insulin glargine (LANTUS SOLOSTAR, BASAGLAR) injection PEN 20 Units 20 Units Subcutaneous BID [JAN Hold] ketorolac (TORADOL) injection 30 mg 30 mg Intravenous ONCE [JAN Hold] medroxyprogesterone (proVERA) tablet 10 mg 10 mg Oral BID [JAN Hold] methocarbamol (ROBAXIN) tablet 750 mg 750 mg Oral Q8H [JAN Hold] midazolam (VERSED) injection 1 mg 1 mg Intravenous ONCE [JAN Hold] ondansetron (ZOFRAN) injection 4 mg 4 mg Intravenous ONCE [JAN Hold] polyethylene glycol 3350 (MIRALAX) packet 17 g 1 packet Oral BID [JAN Hold] senna/docusate (SENOKOT-S) tablet 1 tablet 1 tablet Oral BID Continuous Infusions: [JAN Hold] fentaNYL (SUBLIMAZE) ASSISTANT FILM EDITOR 550 mcg/ NS 55 mL infusion syr (std conc)(premade) PRN and Respiratory Meds:[JAN Hold] benzocaine/menthol Q2H PRN, [JAN Hold] diphenhydrAMINE/lidocaine/antacid (#) TID PRN, [JAN Hold] naloxone PRN, [JAN Hold] ondansetron (ZOFRAN) IV Q6H PRN, [JAN Hold] oxyCODONE Q3H PRN, [JAN Hold] vitamin A & D PRN Vital Signs: Last Filed Vital Signs: 24 Hour Range BP: 101/52 (08/18 1507) Temp: 37.1 C (98.8 F) (08/18 1440) Pulse: 70 (08/18 1507) Respirations: 12 PER MINUTE (08/18 1507) SpO2: 97 % (08/18 1507) O2 Delivery: None (Room Air) (08/18 1056) SpO2 Pulse: 73 (08/18 1507) BP: (83-113)/(44-62) Temp: [36.7 C (98.1 F)-37.1 C (98.8 F)] Pulse: [70-94] Respirations: [11 PER MINUTE-30 PER MINUTE] SpO2: [97 %-100 %] O2 Delivery: None (Room Air) Sedation/Medication Plan: Fentanyl and Midazolam Personal history of sedation complications: Denies adverse event. Family history of sedation complications: Denies adverse event. Medications for Reversal: Naloxone and Flumazenil Discussion/Reviews: Physician has discussed risks and alternatives of this type of sedation and above planned procedures with patient NPO Status: Acceptable Airway: airway assessment performed Mallampati II (soft palate, uvula, fauces visible) Head and Neck: no abnormalities noted Mouth: no abnormalities noted Anesthesia Classification: ASA III (A patient with a severe systemic disease that limits activity, but is not incapacitating) Status: Not Lab/Radiology/Other Diagnostic Tests Labs: Relevant labs reviewed and Hgb 6.7- 1 unit RBCs has just completed prior to procedure. Pt was not given standard dose of Levaquin 500mg IV with procedure as she has just received Dapotomycin dose at 1441 per JAN. I have examined the patient, and there are no significant changes in their condition, from the previous H&P performed on 08/09/18. Kim Elias, ALLISON Pager [phone] * Chau Gomez MD - 08/09/2018 4:37 AM CDT Formatting of this note may be different from the original. Admission History and Physical Examination Name: Betina Baron Admission Date: 08/09/2018 Assessment/Plan: Active Problems: Mass of heart Acute systolic CHF (congestive heart failure) ([facility]) LV (left ventricular) mural thrombus without ID Polysubstance abuse ([facility]) DM (diabetes mellitus) ([facility]) 48-year-old female with past medical history of polysubstance abuse, uncontrolled diabetes, left ventricular thrombus comes in as outside hospital transfer with chief complaint of left-sided and right-sided pain and noticed to be in DKA, multiple emboli including splenic emboli, renal artery emboli, left femoral artery thrombus with complete occlusion. Multiple arterial thrombus -Patient with known left ventricular thrombus, noncompliant on her anticoagulation -Outside hospital report showing left renal artery emboli, splenic emboli, left femoral artery thrombus with occlusion -Last CTA of the abdomen pelvis at 04/01/2018 here at [facility] shows only left ventricular thrombus -Patient placed on IV heparin, vascular surgery has been consulted, patient made n.p.o. Sepsis -Probably from ischemia to the extremities -Patient placed on broad-spectrum IV antibiotics -Blood cultures have been obtained -Above interventions Uncontrolled diabetes -Patient placed on your protocol IV insulin -Diabetes nurse educator has been consulted Acute systolic congestive heart failure -Continue OUTSIDE MEDICAL SALES REPRESENTATIVE Coreg, lisinopril, Lasix Polysubstance abuse -Patient's UDS was positive for opiates, methamphetamines and amphetamines FEN -No IV fluids, will replace replace as needed, n.p.o. for now Disposal -Patient is admitted to medicine. Patient is full code. ATTESTATION I personally performed the rodriguez portions of the E/M visit, discussed case with my colleague and concur with his documentation of history, physical exam, assessment, and treatment plan unless otherwise noted. Patient underwent stat CTA: CT angiogram shows complete occlusion of the distal left common femoral artery and profunda artery with thrombus along with occlusion of her superficial femoral artery. Her right lower extremity has complete occlusion of the popliteal artery and trifurcation with thrombus. These are likely embolic from her heart. She is also has splenic and renal infarcts seen on CT angiogram Appreciate vascular consult- s/p LEFT FEMORAL THROMBECTOMY, RIGHT POPLITEAL AND TIBIAL THROMBECTOMY (Bilateral) Cont heparin gtt Transition insulin gtt to sq insulin Cont iv abx pending c/s Refuses nicotine path Admit using meth Non compliance with AC, doesnot monitor INR Pain controlled- cont current pain regimen Consult cardiology Check echo Staff name: Chau Gomez MD Date: 08/09/2018 __ Primary Care Physician: Dave Lorenzana Chief Complaint: Pain History of Present Illness: Betina Baron is a 48 y.o. female with above past medical history of congestive heart failure systolic in nature, diabetes, polysubstance abuse, extreme noncompliance who denies a transfer from outside hospital where she was found to have uncontrolled sugars and was complaining of pain. At the outside hospital they have performed a CT of the abdomen pelvis and noticed extensive thrombus and multiple emboli much more than was previously documented. Patient complains of pain, fevers, overall confusion. Patient denies noncompliance. Patient denies to have any other complaints. Past Medical History: Diagnosis Date DM (diabetes mellitus) (HCC) Polysubstance abuse Past Surgical History: Procedure Laterality Date HX BELOW KNEE AMPUTATION Family history reviewed; non-contributory Family History Problem Relation Age of Onset Diabetes Mother Diabetes Sister Diabetes Brother Social History Social History Marital status: Spouse name: N/A Number of children: N/A Years of education: N/A Social History Main Topics Smoking status: Current Every Day Smoker Packs/day: 1.00 Years: 20.00 Types: Cigarettes Smokeless tobacco: Never Used Alcohol use No Drug use: No Sexual activity: Not on file Other Topics Concern Not on file Social History Narrative No narrative on file Immunizations (includes history and patient reported): There is no immunization history on file for this patient. Allergies: Pcn [penicillins] Medications: Prescriptions Prior to Admission Medication Sig aspirin EC 81 mg tablet Take 1 tablet by mouth daily. Take with food. atorvastatin (LIPITOR) 80 mg tablet Take 1 tablet by mouth daily. carvedilol (COREG) 3.125 mg tablet Take 1 tablet by mouth twice daily. Take with food. enoxaparin (LOVENOX) 80 mg syrg Inject 0.8 mL under the skin twice daily. furosemide (LASIX) 40 mg tablet Take 1 tablet by mouth daily. insulin aspart U-100 (NOVOLOG FLEXPEN) 100 unit/mL injection PEN Inject 8 Units under the skin three times daily with meals. insulin detemir(+) (LEVEMIR FLEXTOUCH U-100 INSULN) 100 unit/mL (3 mL) injection pen Inject 30 Units under the skin at bedtime daily. lisinopril (PRINIVIL, ZESTRIL) 2.5 mg tablet Take 1 tablet by mouth daily. [DISCONTINUED] medroxyprogesterone (PROVERA) 10 mg tablet Take 1 tablet by mouth twice daily. Further scripts to be given by PCP/WORKFORCE ANALYST metFORMIN (GLUCOPHAGE) 500 mg tablet Take 500 mg by mouth twice daily with meals. nystatin (NYSTOP) 100,000 unit/g topical powder Apply to pannus twice daily oxyCODONE (ROXICODONE, OXY-IR) 5 mg tablet Take 1-2 tablets by mouth every 12 hours as needed For pain spironolactone (ALDACTONE) 25 mg tablet Take 1 tablet by mouth twice daily. Take with food. vitamins, multi w/minerals 9 mg iron-400 mcg tab Take 1 tablet by mouth daily. warfarin (COUMADIN) 7.5 mg tablet Take 1 tablet by mouth at bedtime daily. Current Facility-Administered Medications Medication aspirin EC tablet 81 mg atorvastatin (LIPITOR) tablet 80 mg carvedilol (COREG) tablet 3.125 mg cefepime (MAXIPIME) 1 g/50 ml iso-osmotic IVPB furosemide (LASIX) tablet 40 mg heparin (porcine) 20,000 units/D5W 500 mL infusion (std conc)(premade) heparin (porcine) BOLUS for continuous inf (bag) 20-40 Units/kg heparin (porcine) BOLUS for continuous inf (bag) 70 Units/kg insulin regular (NOVOLIN R) 100 Units in sodium chloride 0.9% (NS) 100 mL IV drip (std conc) lisinopril (PRINIVIL; ZESTRIL) tablet 2.5 mg oxyCODONE (ROXICODONE, OXY-IR) tablet 5-10 mg vancomycin (VANCOCIN) 15 mg/kg in dextrose 5% (D5W) IVPB Review of Systems: A 14 point review of systems was negative except for: extremity pain, fatigue Physical Exam: Vital Signs: Last Filed In 24 Hours Vital Signs: 24 Hour Range BP: 106/61 (08/09 402) Temp: 38.2 C (100.7 F) (08/09 402) Pulse: 88 (08/09 402) Respirations: 23 PER MINUTE (08/09 402) SpO2: 96 % (08/09 402) O2 Delivery: None (Room Air) (08/09 402) SpO2 Pulse: 88 (08/09 402) Height: 180.3 cm (71") (08/09 400) BP: (106)/(61) Temp: [38.2 C (100.7 F)] Pulse: [88] Respirations: [23 PER MINUTE] SpO2: [96 %] O2 Delivery: None (Room Air) Physical Exam Constitutional: She is oriented to person, place, and time. She appears well- developed and well-nourished. HENT: Head: Normocephalic and atraumatic. Eyes: Conjunctivae and EOM are normal. Neck: Neck supple. Cardiovascular: Normal rate and regular rhythm. Pulmonary/Chest: Effort normal and breath sounds normal. Abdominal: Soft. Bowel sounds are normal. Musculoskeletal: Normal range of motion. She exhibits no edema or tenderness. Left BKA Neurological: She is alert and oriented to person, place, and time. Skin: There is pallor. Psychiatric: She has a normal mood and affect. Lab/Radiology/Other Diagnostic Tests: 24-hour labs: Results for orders placed or performed during the hospital encounter of (from the past 24 hour(s)) POC GLUCOSE Collection Time: 08/09/18 4:08 AM Result Value Ref Range Glucose, POC 373 (H) 70 - 100 MG/DL POC Glucose (Download): (!) 373 (08/09/18 0408) Pertinent radiology reviewed. Raul Burger MD Pager [phone] in this encounter Consult Notes * Sade Chung RN - 08/18/2018 8:06 AM CDT Associated Order(s): CONSULT WOUND/OSTOMY TEAM NURSE Wound Ostomy Note NAME:Betina Baron :1970 AGE: 48 y.o. ADMISSION DATE: 08/09/2018 DAYS ADMITTED: LOS: 9 days Reason for Consult/Visit: wound VAC Assessment/Plan: Active Problems: Mass of heart Acute systolic CHF (congestive heart failure) (HCC) LV (left ventricular) mural thrombus without ID Polysubstance abuse (HCC) DM (diabetes mellitus) (HCC) Bacteremia due to Gram-positive bacteria Moderate malnutrition (HCC) Consult placed for wound team to "look at wound vac and wound b/c battery dies on machine". Vascular saw patient on 08/16/18. Detailed note in place about plan and f/u. Vascular team to be notified. Informed bedside RN and Medicine team that Vascular is following wound. Thank you We will sign off at this time Dayana Chung RN, BSN Wound /Ostomy Team Pager [phone] After Hours Wound/Ostomy team pager [phone] * Aleyda Tse RN - 08/17/2018 2:21 PM CDT Associated Order(s): CONSULT INTERVENTIONAL RADIOLOGY PHYSICIAN IR Consult Note [place] discussed with Dr. Schaefer and Dr. Kate, kimani to proceed. Please place order for IR Embolization. Please specify in order that vascular surgery wants right groin access only. Dr. Schaefer to do on 08/18. Patient should be NPO at midnight, does not need to hold therapeutic lovenox for procedure. Labs, meds, allergies okay. Please page [phone] with any questions. Aleyda Tse RN BSN * Concetta Pickard RN - 08/16/2018 12:53 PM CDT Associated Order(s): CONSULT WOUND/OSTOMY TEAM NURSE Formatting of this note may be different from the original. Wound Ostomy Note NAME:Betina Baron :1970 AGE: 48 y.o. ADMISSION DATE: 08/09/2018 DAYS ADMITTED: LOS: 7 days Reason for Consult/Visit: pressure injury Stage II or greater Assessment/Plan: Active Problems: Mass of heart Acute systolic CHF (congestive heart failure) (HCC) LV (left ventricular) mural thrombus without ID Polysubstance abuse (HCC) DM (diabetes mellitus) (HCC) Bacteremia due to Gram-positive bacteria Moderate malnutrition (HCC) Pressure Injury 08/15/181999 (Active) Stage 2 coccyx 08/15/181999 Wound Location: Coccyx Pressure Injury Orientation: Pressure Injury Stages: Pressure Injury Present On Inpatient Admission: N If this pressure injury is suspected to be device related, please select the device:: Wound Dressing Status Dressing Reinforced 08/16/2018 12:00 PM Wound Dressing and / or Treatment A & D Ointment;Foam (Biatain) 08/16/2018 12:00 PM Wound Drainage Amount None 08/16/2018 12:00 PM Wound Base Assessment [place];Moist 08/16/2018 12:00 PM Surrounding Skin Assessment Intact;Macerated 08/16/2018 12:00 PM Wound Status (Wound Team Only) Being Treated 08/16/2018 12:00 PM Wound Length (cm) 3 cm 08/16/2018 12:00 PM Wound Width (cm) 1.5 cm 08/16/2018 12:00 PM Wound Depth (cm) 0.2 cm 08/16/2018 12:00 PM Wound Volume (cm^3) 0.9 cm^3 08/16/2018 12:00 PM RECOMMEND: Apply vitamin A&D ointment (requires MD order) to wound base and cover with a Biatain foam. Dressing changes daily and PRN soiling per floor RN. Continue q2hr turning schedule using foam wedge for support. Offload heels for additional pressure ulcer prevention. Our service will sign off at this time. Please reconsult if affected areas do not improve despite implementing recommendations above. --- Primary Team is responsible for placing wound care orders.--- Concetta Pickard RN, BSN, CMSRN, CWON Wound Ostomy Nursing Consult Service Office: [phone] Pager: [phone] After Hours Wound/Ostomy Team Pager: [phone] * Alliosn Holland RN - 08/11/2018 5:37 PM CDT Diabetes Education Follow up: Educator spoke with pt concerning affordability of medications and asked if pt were to use a medication that only cost ~$25/month would that be affordable, pt said it would be. Since affordability is an issue and pt reports that she is not consistent with taking her diabetes medications because of cost, recommend that alternative medications available over the counter at [facility] be considered as an option, specifically Novolin 70/30. Allison Holland, CARLAN, RN Clinical Nurse Coordinator - Diabetes Education Nursing Clinical Excellence [facility] [email or web address] [phone] office [phone] pager * Eda Man MD - 08/11/2018 12:33 PM CDT Associated Order(s): CONSULT WORKFORCE ANALYST PHYSCIAN Formatting of this note may be different from the original. Gynecology Consult History and Physical Examination Betina Baron Admission Date: 08/09/2018 Assessment: 48 y.o. [id number] admitted for DKA, multiple emboli, consult for vaginal bleeding in setting of fibroid uterus. At this time, patient's reported vaginal bleeding and physical exam consistent with normal menstrual period. Plan: Pad weights if concern for profuse vaginal bleeding. Recommend fecal hemoccult to work up alternative source of anemia. Continue Provera while inpatient. We will sign off at this time but are happy to speak with team or patient if bleeding increases or continues. Thank you for the opportunity to participate in the care of this patient. D/w Dr. Torres, Dr. Rom Stafford MD PGY-1 Obstetrics and Gynecology Please page the Gynecology pager at [phone] with any questions or concerns. Thank you for allowing us to participate in the care of your patient. Reason for Consult: Vaginal bleeding History of Present Illness: Betina Baron is a 48 y.o. [id number] admitted for DKA, multiple emboli including splenic emboli, renal artery emboli, left femoral artery thrombus with complete occlusion. She reports that she has been bleeding per vagina since she came in to the hospital 2 days ago. She thinks this is a normal period. She denies heavy bleeding. She denies pain. She denies passage of discharge or tissue. She has a history of irregular periods for as long as she can remember. She says she will get a period every 1-2 months. It is usually not heavy, but a couple of months ago it was heavier and she began Provera treatment. She denies new sexual partners, has no concern for infections. We were previously consulted for this patient in March 2018 for concern for fibroid uterus, anemia. She was started on Provera 10mg BID at this time. She says the bleeding did not stop for three weeks on Provera so she saw her doctor in [place] who told her to discontinue. She says that she stopped bleeding after discontinuing. Review of Systems: A comprehensive review of systems was performed and was negative, except as in HPI Surgeon'S Assistant History: LMP: 08/09/18 Pap: Negative STD: Negative Menstrual Cycles: Age of menarche 12; Cycle irregular every 1-2 months PmHx: Past Medical History: Diagnosis Date DM (diabetes mellitus) (HCC) Polysubstance abuse (HCC) PsHx: Past Surgical History: Procedure Laterality Date HX THROMBECTOMY Bilateral 08/09/2018 LEFT FEMORAL THROMBECTOMY, RIGHT POPLITEAL AND TIBIAL THROMBECTOMY performed by Kim Mccarthy MD at [facility] HX BELOW KNEE AMPUTATION FmHx: Family History Problem Relation Age of Onset Diabetes Mother Diabetes Sister Diabetes Brother Social: Positive for tobacco, denies EtOH, denies drug use. . Denies new sexual partners. Allergies: Pcn [penicillins] Medications: No current facility-administered medications on file prior to encounter. Current Outpatient Prescriptions on File Prior to Encounter Medication Sig Dispense Refill aspirin EC 81 mg tablet Take 1 tablet by mouth daily. Take with food. 90 tablet 3 atorvastatin (LIPITOR) 80 mg tablet Take 1 tablet by mouth daily. 30 tablet 0 carvedilol (COREG) 3.125 mg tablet Take 1 tablet by mouth twice daily. Take with food. 60 tablet 0 enoxaparin (LOVENOX) 80 mg syrg Inject 0.8 mL under the skin twice daily. 11.2 mL 0 furosemide (LASIX) 40 mg tablet Take 1 tablet by mouth daily. 30 tablet 0 insulin aspart U-100 (NOVOLOG FLEXPEN) 100 unit/mL injection PEN Inject 8 Units under the skin three times daily with meals. 45 mL 3 insulin detemir(+) (LEVEMIR FLEXTOUCH U-100 INSULN) 100 unit/mL (3 mL) injection pen Inject 30 Units under the skin at bedtime daily. lisinopril (PRINIVIL, ZESTRIL) 2.5 mg tablet Take 1 tablet by mouth daily. 30 tablet 0 metFORMIN (GLUCOPHAGE) 500 mg tablet Take 500 mg by mouth twice daily with meals. nystatin (NYSTOP) 100,000 unit/g topical powder Apply to pannus twice daily 15 g 0 oxyCODONE (ROXICODONE, OXY-IR) 5 mg tablet Take 1-2 tablets by mouth every 12 hours as needed For pain 15 tablet 0 spironolactone (ALDACTONE) 25 mg tablet Take 1 tablet by mouth twice daily. Take with food. 60 tablet 0 vitamins, multi w/minerals 9 mg iron-400 mcg tab Take 1 tablet by mouth daily. warfarin (COUMADIN) 7.5 mg tablet Take 1 tablet by mouth at bedtime daily. 30 tablet 0 Physical Exam: Vitals: 08/11/18 0800 08/11/18 0831 08/11/18 0900 08/11/18 1200 BP: Pulse: 75 83 Temp: 36.9 C (98.5 F) 36.8 C (98.2 F) SpO2: 100% 97% Weight: Height: Gen: NAD CV: RRR, no appreciable murmurs Chest: Unlabored, CTAB Abd: Soft, non-tender, non-distended Ext: No LE edema, nttp LE SVE: normal appearing external genitalia, no masses, fibroids or polyps on palpation. No tenderness on palpation. Pad worn all day was moderately saturated. Small blood clot in vault on physical exam. Lab/Radiology/Other Diagnostic Tests: 24-hour labs: Results for orders placed or performed during the hospital encounter of (from the past 24 hour(s)) POC GLUCOSE Collection Time: 08/10/18 5:46 PM Result Value Ref Range Glucose, POC 176 (H) 70 - 100 MG/DL POC GLUCOSE Collection Time: 08/10/18 8:46 PM Result Value Ref Range Glucose, POC 140 (H) 70 - 100 MG/DL CBC AND DIFF Collection Time: 08/11/18 4:03 AM Result Value Ref Range White Blood Cells 12.7 (H) 4.5 - 11.0 K/UL RBC 3.30 (L) 4.0 - 5.0 M/UL Hemoglobin 7.3 (L) 12.0 - 15.0 GM/DL Hematocrit 22.9 (L) 36 - 45 % MCV 69.4 (L) 80 - 100 FL MCH 22.0 (L) 26 - 34 PG MCHC 31.7 (L) 32.0 - 36.0 G/DL RDW 32.1 (H) 11 - 15 % Platelet Count 208 150 - 400 K/UL MPV 8.1 7 - 11 FL Neutrophils 82 (H) 41 - 77 % Lymphocytes 6 (L) 24 - 44 % Monocytes 8 4 - 12 % Eosinophils 4 0 - 5 % Basophils 0 0 - 2 % Absolute Neutrophil Count 10.40 (H) 1.8 - 7.0 K/UL Absolute Lymph Count 0.80 (L) 1.0 - 4.8 K/UL Absolute Monocyte Count 1.00 (H) 0 - 0.80 K/UL Absolute Eosinophil Count 0.50 (H) 0 - 0.45 K/UL Absolute Basophil Count 0.00 0 - 0.20 K/UL COMPREHENSIVE METABOLIC PANEL Collection Time: 08/11/18 4:03 AM Result Value Ref Range Sodium 125 (L) 137 - 147 MMOL/L Potassium 4.4 3.5 - 5.1 MMOL/L Chloride 96 (L) 98 - 110 MMOL/L Glucose 222 (H) 70 - 100 MG/DL Blood Urea Nitrogen 24 7 - 25 MG/DL Creatinine 0.87 0.4 - 1.00 MG/DL Calcium 8.0 (L) 8.5 - 10.6 MG/DL Total Protein 5.6 (L) 6.0 - 8.0 G/DL Total Bilirubin 0.4 0.3 - 1.2 MG/DL Albumin 2.7 (L) 3.5 - 5.0 G/DL Alk Phosphatase 110 25 - 110 U/L AST (SGOT) 28 7 - 40 U/L CO2 23 21 - 30 MMOL/L ALT (SGPT) 18 7 - 56 U/L Anion Gap 6 3 - 12 eGFR Non >60 >60 mL/min eGFR >60 >60 mL/min POC GLUCOSE Collection Time: 08/11/18 9:37 AM Result Value Ref Range Glucose, POC 235 (H) 70 - 100 MG/DL POC GLUCOSE Collection Time: 08/11/18 12:29 PM Result Value Ref Range Glucose, POC 214 (H) 70 - 100 MG/DL Point of Care Testing: Glucose: (!) 222 (08/11/18 0403) POC Glucose (Download): (!) 214 (08/11/18 1229) Associated attestation - Sherry Cueto MD - 08/14/2018 8:47 AM CDT Attending Attestations: I saw and evaluated this patient and I reviewed and discussed the case of this patient with the resident physician, Dr. Stafford, including the resident's findings in the history, physical examination, diagnosis and treatment plan for today's visit. 48 y.o. admitted for DKA and multiple emboli, workforce analyst consulted for vaginal bleeding with a known fibroid uterus. Pap and EMB earlier this year WNL. Exam with minimal old blood, consistent with normal menses. Recommend continuing provera, monitoring pad weights to assess if bleeding increases. Reviewed options for treatment with patient, including uterine artery embolization, which she is not interested in at this time. Consider evaluation for other etiologies of chronic blood loss, given patient's significant anemia. Sherry Cueto MD * [facility] - 08/10/2018 5:11 PM CDT Associated Order(s): CONSULT DIETITIAN CLINICAL NUTRITION Clinical Nutrition Assessment Summary NAME:Betina Baron :1970 AGE : 48 y.o. ADMISSION DATE: 08/09/2018 DAYS ADMITTED: LOS: 1 day Nutrition Assessment of Patient: BMI Categories Adult: Acceptable: 18.5-24.9 Unintentional Weight Loss: > 10% in 6 months (severe) Malnutrition Assessment: Malnutrition present Current Oral Intake: Marginally Adequate Estimated Calorie Needs: 5959-2178 (28-30 kcals/kg per 68.6kg) Estimated Protein Needs: 86 (1.25 gm/kg per 68.6kg) Oral Diet Order: Cardiac, Diabetic 0250-0706 Kcal/day (60 g Carb/meal, 30 g Carb /HS snack) ICD-10 code E44: Chronic illness/Moderate non-severe malnutrition Energy intake: < 75% of estimated energy requirement for 1 month or more, Weight loss: 10% x 6 months, Mild loss of body fat, Mild loss of muscle mass Loss of Subcutaneous Fat: Yes Moderate Orbital Muscle Wasting: Yes Moderate Methodist, Clavicle, Interosseous Edema: No Malnutrition Interventions: Provided diet education, encouraged Pt to follow diet and medical regimen Comments: Betina Baron is a 48 y.o. female with a pmh of DM, polysubstance abuse, LV thrombus, CHF, L BKA, GLENNY who presented from an OSH in [place] with splenic and renal artery emboli and right and left lower extremity ischemia secondary to left common femoral, profunda, and SFA occlusion and right popliteal and trifurcation occlusion who is now 1 Day Post-Op from left femoral thrombectomy, right popliteal and tibial thrombectomy (bilateral) (08/09/2018). RD consulted for Diet education. Pt reports she has had a decreased appetite for several months, leading to a ~20# weight loss. EMR weight agree showing a 23# weight loss (174 lbs to 151 lbs) since discharge in March, this is a 13% wt loss in 4 months, which is considered severe. Pt noted to have moderate fat and muscle wasting. Along with poor dentition. No edema currently noted Pt meets criteria for moderate chronic malnutrition. Pt reports she is feeling better today, but having some nausea, likely related to pain meds/anestesia. Noted Na 127, likely related to CHF. Pts A1C is 10.3, POC BGs have been 82-412 over the past 24 hours. Pt admits to not being compliant with DM diet. She states she has tried but eventually just gives up and eat whatever she wants. RD reviewed simple carb counting handout, encouraged portion control of carbohydrates, and eating more proteins and non- starchy vegetables. Pt eating 100 staci pack of cookies and cup of sherbet at time of RD visit. RD used these as examples of for counting carb servings. Provided handout and Pt verbalized understanding. Encouraged Pt to follow DM diet and medication regimen to help prevent further complications and polydipsia /excessive hunger. Recommendation: Continue current diet as ordered. Recommend follow up with RD at diabetes center. Intervention / Plan: Will monitor PO intake adequacy/ tolerance Will monitor GI function, labs, and weights Nutrition Diagnosis: Inadequate oral intake Etiology: related to decrease appetite Signs & Symptoms: Pt reports, recorded wt loss Altered nutrition-related laboratory values, specify: (A1C 10.3) Etiology: related to diet noncompliance Signs & Symptoms: as evidenced by Pt reports and lab values Goals: Patient to consume >50% of meals Time Frame: Within 72 Hours Prevent further weight loss Time Frame: Throughout Stay Aid in stabilizing blood glucose Time Frame: Prior to Discharge Sade Patrice MS, RD, LD, [facility] Pager [phone] Office [phone] * Allison Holland, RN - 08/10/2018 5:02 PM CDT Associated Order(s): CONSULT DIABETES NURSE EDUCATOR INPATIENT DIABETES EDUCATION TEAM Clinical Excellence Nursing Practice Reason for Consult: DKA Discussed Consult with Primary Team: Bedside RNMarjan Patient may benefit from: More affordable medications such as 70/30 Insulin in vial and syringe, and Metformin, and new Glucometer, test strips, and lancets. Referral to [facility] for Diabetes Education and local resources. This consult team does not write orders. Primary Team is responsible for placing orders. Met with Betina Baron to discuss diabetes management. Pt agreeable to teaching at this time. Educator discussed pt's current A1c of 10.3 compared to goal of 6.5-7.0 When starting to ask questions about her current diabetes management it became evident that her issues are greatly impacted by affordability of medications. Pt currently uninsured and says that her Lantus and Novolog pens cost her hundreds of dollars when she picks them up and that is a huge financial strain. Consequently she tries to stretch out her insulin administration. Educator asked if pt would consider a more affordable option using vial and syringe. Pt a little hesitant, but after seeing what a syringe and it's needle look like she felt she should be able to do it. If meds are changed, pt will need additional education about how to use a syringe and vial and proper handling of new insulin. In addition her glucometer ran out of batteries and she has difficulty affording a new meter and all the supplies. Pt seemed uneducated about carb counting for diabetes diet. Educator discussed types of foods that contain carbs and will bring additional resources on next visit. Pt admits that she is trying to meet with a diabetes person at the [facility], but she is having difficulty making arrangements given her limited access to transportation and limited availability of the Health Dept person. Educator will continue to follow throughout stay. Thank you for the consult. If you have further questions or concerns related to diabetes management, please do not hesitate to contact me at the numbers below. Allison Holland CARLAN, RN Clinical Nurse Coordinator - Diabetes Education Nursing Clinical Excellence [facility] [email or web address] [phone] office [phone] pager * García Cooper MD - 08/10/2018 10:25 AM CDT Associated Order(s): CONSULT INFECTIOUS DISEASES PHYSICIAN Formatting of this note may be different from the original. Infectious Diseases Initial Consult Today's Date: 08/10/2018 Admission Date: 08/09/2018 Reason for this consultation: "GPC bacteremia per OSH, aide with antibiotic selection" Assessment: 1. Polysubstance abuse - long-term methamphetamine user (smoke); distant crack cocaine use reportedly - Denies IVDA - Patient's UDS was positive for opiates, methamphetamines and amphetamines at OSH - Current ppd tobacco smoker 2. LV Thrombus + arterial emboli / cardiomyopathy - echo (04/11/18): Moderately dilated LV with severely reduced EF=15%. - Patient with known left ventricular thrombus, noncompliant on her anticoagulation - hospitalized in [place] ([facility]) -diagnosed with LV thrombus and placed on anticoagulation in early 2017; stopped anticoagulation on her own weeksmonths OUTSIDE MEDICAL SALES REPRESENTATIVE - Echo (08/10/18): Moderately to severely decreased global LV contractility; EF= 30% Apical LV akinesis + large mobile apical thrombus. Mild eccentric LV hypertrophy. Normal RV. Moderate LA dilation; mild atrial dilation; elevated CVP; normal valvular structures - Cardiology consulted - carvedilol,lisinopril, spironolactone, lasix - CTA abdomen with aortogram + bilateral runoff (08/09/18): small pericardial effusion, wedge-shaped defect in segment 7 of the liver, wedge shaped hypodensities throughout the spleen and left kidney consistent with thrombotic events. CTA also demonstrated left ventricular mass consistent with thrombus, complete occlusion of the left proximal femoral and femoral profundus arteries, complete occlusion at the level of the right popliteal artery and enlarged uterus likely secondary to fibroid. - OR (08/09/18): eft common femoral, profunda and superficial femoral artery thrombectomy followed by closure with bovine pericardial patch. She underwent thrombectomy of the right SFA, popliteal artery, anterior tibial artery, posterior tibial artery and peroneal artery. Attempted thrombectomy was performed at the right posterior and anterior tibial arteries, however, there were findings of chronic arterial occlusion Bacteremia -Per outside hospital "growing GPCs" Called [facility] lab in [place], [place] to request records which show in 1/2 bottles: Staph aureus Probable enterococcus species Staph, Coag Neg - etiology unknown - Patient placed on broad-spectrum IV antibiotics Vanc/cefepime - Blood cultures have been obtained 08/09 NGTD, and 08/10 Uncontrolled diabetes - reportedly BG levels as high as 800s in recent past - last HgA1C on file at [facility] from 04/11/18 was 10.5 Antimicrobial Intolerance/Sensitivity - Penicillin- said to cause rash, hive, and shortness of breath Recommendations: Given pt hx of LV thrombus, which was re-demonstrated on ECHO today, coupled with current GPC bacteremia is must be assumed this is a septic thrombi. It is appropriate to begin treatment for presumptive endocarditis at this time. Will use synergistic agents daptomycin for VRE coverage and ceftaroline given the size of the LV thrombus, coupled with the diffuse nature of her multiple thrombi. In addition, the patient states to have known about the initial LV thrombus since March and has been noncompliant with her AC regiment. The thrombus was original discovered at [place], [place]. It would be worth contacting them and obtaining any workup conducted surrounding the development of this thrombus. At this point, unclear what the etiology of her thrombotic condition is. Ddx would include Afib, hypercoagulability syndrome (i.e. Antiphospholipid syndrome), or malignancy. No need to work up further if cause has already been delineated. Recommendations: Start Daptomycin 10mg/kg q24hr + Ceftaroline 600mg [id number] Await culture results from [facility] lab, [place], [place], for further adjustments to antibiotics Obtain records from [facility] in hope of delineating underlying etiology of multiple thrombi ATTESTATION I personally performed or re-performed the history, physical exam and treatment for E/M. I discussed the case with the Medical Student, and concur with the Medical Student documentation of history, physical exam and treatment plan unless otherwise noted. Patient is a 48-year-old woman with a history of polysubstance abuse, poorly controlled diabetes mellitus, history of distal LLE gangrene, status post left BKA, history of "clot in my heart", previously prescribed anticoagulation but not taking at home. Patient initially presented to the outside facility with DKA. Shortly upon returning home, she states she developed significant pain in the bilateral lower extremities. Imaging revealed evidence of intraventricular clot, splenic and left renal infarcts and lower extremity arterial clots. Blood cultures (1 set) obtained at the outside facility. It appears the patient received cefepime. Patient was transferred to [facility] for further evaluation and treatment. She was seen in consultation by Vascular Surgery. CTA abdomen with aortogram + bilateral runoff was performed. Films viewed. This demonstrated a small pericardial effusion, wedge-shaped defect in segment 7 of the liver, wedge shaped hypodensities throughout the spleen and left kidney consistent with thrombotic events. CTA also demonstrated left ventricular mass consistent with thrombus, complete occlusion of the left proximal femoral and femoral profundus arteries, complete occlusion at the level of the right popliteal artery and enlarged uterus likely secondary to fibroid. The patient was taken urgently to the OR yesterday to undergo left common femoral, profunda and superficial femoral artery thrombectomy followed by closure with bovine pericardial patch. She underwent thrombectomy of the right SFA, popliteal artery, anterior tibial artery, posterior tibial artery and peroneal artery. Attempted thrombectomy was performed at the right posterior and anterior tibial arteries, however, there were findings of chronic arterial occlusion. Micro Lab at the outside facility contacted. We were sent culture results. 3 GPC organisms were growing from her urine, consistent with contamination. However, one set of blood cultures was growing staph aureus, GPC resembling strep (? Enterococci) and possible coagulase-negative Staphylococcus. Repeat blood cultures drawn yesterday and today. These are currently pending. Patient is presently on vancomycin + cefepime. Etiology of her intravascular thrombosis (LV thrombus) is unclear. She reports this was initially diagnosed earlier this year at [facility] in [place], at which time she was started on warfarin. She states she was unable to to new anticoagulation due to expense and has been off this for several months. She does not know the reason for the clot formation (underlying clotting disorder? Atrial fibrillation? Etc.). The source of her bacteremia is not particularly clear. She strongly denies any IV drug use. However, she would be at some increased risk even with methamphetamine use. At a minimum, it appears she is going staph aureus. It is unclear if she will also grow streptococcal species (viridans streptococci?) Or an enterococcal species. Plan: D/c cefepime and vancomycin Start daptomycin 10 mg/kg/day + IV ceftaroline for endocarditis as unclear if GPC resembling Strep will be identified as a streptococcal species or enterococcus. (ordered) Ceftaroline, in combination with daptomycin, will provide more effective coverage particularly if a resistant enterococcal species is recovered (i.e. penicillin/aminoglycoside resistance) and/or MRSA. We will remain in communication with the outside Microbiology Lab and make appropriate adjustments once additional information is available. Patient currently on IV heparin. Etiology of LV thrombus formation is unclear. Recommend we obtain discharge summary from [facility] in [place] from earlier this year. (Underlying primary clotting disorder? Atrial fibrillation ? Occult malignancy?) If clear etiology was not defined during her hospital stay in [place], would consider mammogram + transvaginal ultrasound to better evaluate her enlarged uterus we see on CT imaging. Though concerns for uterine fibroids on CT imaging , the patient does have a history of abnormal Pap smear in the past. Would also consider CA 19-9, CA 125 CEA. Patient demonstrates willingness to treat her opioid addiction. Thank you for the consultation. Will continue to follow the patient with you. García Cooper Date: 08/10/2018 Pager: [phone] . History of Present Illness Betina Baron is a 48 y.o. 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 Patient was recently admitted to [facility] due to DKA and was discharged on Tuesday 08/07. Shortly after returning home, she started having left leg pain, which prompted her to go back to the hospital where they did a CTA abd/pelvis and arteriogram, she was found to have a lot of arterial embolic disease. Hence she was transferred here for the further management. Vascular surgery was consulted and they did b/l lower extremities thrombectomies on 08/09. At the outside facility, it was shown that she was growing GPCs in 1:2 blood cultures. Here she was started on broad spectrum abx with Vanc/Cefepime, and ID was consulted for selection of appropriate abx therapy in the setting of bacteremia w/ low grade fever (100.4F). [facility] lab in [place], [place] was contacted to request records which indicated: Staph aureus, Probable enterococcus species , and Staph, Coag Neg in 1:2 bottles.These results are then sent out to another lab for final speciation and susceptibilities which are still pending at this time. During the exam today, Ms. Baron is alert and oriented X4 and explains her current illness as above. She states that following her vascular surgery yesterday that her pain has largely subsided. She denies chest pain, SOB, dizziness, n/v, diarrhea, abdominal pain, headache, visual changes, fever, or swollen joints. She states that she lives in [place], [place] with her ex- of 18 years and their daughter. She is the mother of 9 children in total. She is currently unemployed and on medical disability. Her ex- works outside the home. She denied any recent travel. She endorses being recently sexually active with one male partner (ex-). She is a current everyday ppd cigarette smoker, but denies current ETOH use. She acknowledges current methamphetamine use and a distant history of crack cocaine use (both of which she smoked). She also endorses current use of prescription opioids (OxyCodone, Hydrocodone). She adamantly denies ever injecting illicit drugs, both currently and in the distant past, state that she has "never injected any drug." Antimicrobial Start date End date Vancomycin 08/09 active Cefepime 08/09 Active Estimated Creatinine Clearance: 78.4 mL/min (based on SCr of 0.93 mg/dL). Past Medical History Past Medical History: Diagnosis Date DM (diabetes mellitus) (HCC) Polysubstance abuse Past Surgical History Past Surgical History: Procedure Laterality Date HX BELOW KNEE AMPUTATION Social History Marital status/area of residence: unmarried, lives with ex- and daughter Job/occupation: unemployed on medical disability Sexual history: currently sexually active with 1 male partner Travel history: none Animal, bird exposures: had dog in recent past, now has cat with new kittens Environmental/outdoor/food exposures: none known Recent ill contacts: none known TB exposure: unlikely Drugs of abuse:polysubstance use history. Currently actively uses Methamphetamine, Oxycodone, Hydrocodone, and Tobacco. Has history of using crack cocaine in distant past. Denies current EtOH use. Denies ever injecting drugs. Social History Substance Use Topics Smoking status: Current Every Day Smoker Packs/day: 1.00 Years: 20.00 Types: Cigarettes Smokeless tobacco: Never Used Alcohol use No Family History Family History Problem Relation Age of Onset Diabetes Mother Diabetes Sister Diabetes Brother Allergies Allergies Allergen Reactions Pcn [Penicillins] HIVES, RASH and SHORTNESS OF BREATH Review of Systems A comprehensive 14-point review of systems was negative with exception of: Multiple round, dime-sized scabbed lesions on her back and buttocks Medications Scheduled Meds: aspirin EC tablet 81 mg 81 mg Oral QDAY atorvastatin (LIPITOR) tablet 80 mg 80 mg Oral QDAY carvedilol (COREG) tablet 3.125 mg 3.125 mg Oral BID cefepime (MAXIPIME) 2 g/100 ml iso-osmotic IVPB 2 g Intravenous Q8H* furosemide (LASIX) tablet 40 mg 40 mg Oral QDAY insulin aspart U-100 (NOVOLOG FLEXPEN) injection PEN 0-14 Units 0-14 Units Subcutaneous ACHS insulin glargine (LANTUS SOLOSTAR, BASAGLAR) injection PEN 20 Units 20 Units Subcutaneous QHS lisinopril (PRINIVIL; ZESTRIL) tablet 2.5 mg 2.5 mg Oral QDAY perflutren lipid microspheres (DEFINITY) injection 1-20 Diluted mL 1-20 Diluted mL Intravenous ONCE vancomycin (VANCOCIN) 1,000 mg in dextrose 5% (D5W) 250 mL IVPB ([id number]) 15 mg /kg Intravenous Q12H* Continuous Infusions: heparin (porcine) 20,000 units/D5W 500 mL infusion (std conc)(premade) 1, 400 Units/hr (08/10/18813) PRN and Respiratory Meds:benzocaine/menthol Q2H PRN, fentaNYL citrate PF Q1H PRN , oxyCODONE Q4H PRN, vancomycin, pharmacy to manage Per Pharmacy Physical Examination Vital Signs: Last Vital Signs: 24 Hour Range BP: 100/58 (08/10 0800) Temp: 37 C (98.6 F) (08/10 800) Pulse: 88 (08/10 0815) Respirations: 18 PER MINUTE (08/10 800) SpO2: 100 % (08/10 800) O2 Delivery: None (Room Air) (08/10 800) SpO2 Pulse: 93 (08/10 0322) BP: (100-115)/(57-69) ABP: (123-138)/(54-65) Temp: [37 C (98.6 F)-38 C (100.4 F)] Pulse: [88-97] Respirations: [14 PER MINUTE-21 PER MINUTE] SpO2: [96 %-100 %] O2 Delivery: None (Room Air) General appearance: alert, oriented, NAD, unkempt, appears older than stated age HEENT: mucus membranes moist, no oral lesions/thrush; PERRL, EOM grossly intact , Conj nl, largely edentulous with many missing/broken teeth Neck: supple, no lymphadenopathy, thyroid not palpable Lungs: no wheezing, rhonchi, rales appreciated Heart: Regular rhythm, reg rate, with no murmur, rub, gallop Abdomen: soft, non-tender, non-distended, normoactive bowel sounds, no hepatosplenomegaly, no masses Ext: No clubbing, cyanosis or edema, swelling apparent of the right forearm, likely related to IV placement No peripheral stigmata of endocarditis Skin: no rashes/lesions, multiple tattoos throughout the body Lymph: no cervical, axillary or inguinal adenopathy Lines: Lab Review Hematology Recent Labs 08/09/1842208/09/1880908/09/[id number]/09/[id number]/10/18 0314 WBC 22.4* -- 20.9* -- 19.2* HGB 7.8* -- 8.0* -- 7.7* HCT 26.0* -- 26.8* -- 25.0* PLTCT 253 -- 275 -- 227 PTT 21.7 -- -- 24.2 22.1 INR -- 1.1 -- -- -- Chemistry Recent Labs 08/09/1842208/09/18149908/10/18 0314 NA 126* 128* 127* K 4.5 3.9 4.2 CL 96* 100 98 CO2 20* 20* 22 BUN 22 19 23 CR 0.89 0.90 0.93 GFR >60 >60 >60 GLU 348* 185* 272* CA 8.4* 7.8* 8.3* PO4 -- 2.7 -- ALBUMIN -- 2.8* 2.8* ALKPHOS -- 81 92 AST -- 48* 40 ALT -- 25 28 TOTBILI -- 0.5 0.4 Microbiology, Radiology and other Diagnostics Review Microbiology data reviewed. Pertinent radiology images viewed. Jonathan Latif, MS4 Pager Division of Infectious Diseases * Clemente Sam MD - 08/09/2018 6:20 PM CDT Associated Order(s): CONSULT CARDIOLOGY PHYSICIAN Formatting of this note may be different from the original. General Consult Note Admission Date: 08/09/2018 LOS: 0 days Reason for Consult: h/o LV thrombus now admitted with multiple distal emboli including splenic, renal, and left femoral artery emboli. Management of LV thrombus Consult type: Opinion with orders Assessment/Plan Betina Baron is a 48 y.o. female With PMH of LV thrombus, HFrEF, DM, polysubstance abuse, Tobacco Abuse, left lower extremity BKA, Uterine Fibroid who presented to the [facility] as a transfer from the [facility] yesterday for the leg pain and CTA showed diffuse embolic diffuse. Cardiology consulted for the management of the LV thrombus. # LV thrombus: - 04/11/18: Moderately dilated LV with severely reduced EF=15%. Massive large thrombus filling up the majority of LV apex, with base of the thrombus is attached to apical wall but large portion of thrombus is highly mobile. LV thrombus has appearance of mushroom in contrast images. Global hypokinesis of LV with akinetic mid to distal LV segments. - CTA aorta and B/l Lower extremity run down: 08/09/18: . Left ventricular mass is redemonstrated, consistent with known Thrombus. > Patient is on Warfarin 15 mg Tue and . 7.5 mg on other days. - INR on admission of 1.1 # Heart failure with Reduced EF: - Echo as above. - OUTSIDE MEDICAL SALES REPRESENTATIVE on coreg, lasix and lisinopril. - Stable, does not look in heart failure exacerbation. # B/l lower extremity thrombus: - See CTA report for details. - s/p thrombectomy on 08/09/18 # Splenic and renal emboli # DM # Tobacco abuse # Left lower extremity BKA # Uterine Fibroid: Recommendations: - Agree with the heparin drip for now. - We recommend consulting hematology whether it will be reasonable to still continue the warfarin or change to some other NOAC as she has been subtherapeutic with warfarin on many occassions. - For heart failure continue GDMT with coreg and lisinopril, lasix as OUTSIDE MEDICAL SALES REPRESENTATIVE meds. - Repeat 2D echo with doppler during this admission. Patient seen and discussed with Dr. Sam. Thank you for the consult. TRAV Flanagan # [id number] # PGY-3 ATTESTATION I personally performed the rodriguez portions of the E/M visit, discussed case with resident and concur with resident documentation of history, physical exam, assessment, and treatment plan unless otherwise noted. Ms. Baron presents with bilateral lower extremity discomfort. On 08/09/2018 she underwent left femoral artery thrombectomy and right popliteal and tibial thrombectomy. Left ventricular thrombus is been previously demonstrated by echocardiography was visualized again CT scan obtained on 08/09/2018. The patient states that her anticoagulation with warfarin is frequently subtherapeutic. We recommend the patient pay closer attention to therapeutic anticoagulation with warfarin or consider alternative anticoagulation. We recommend consulting the Hematology service for their recommendations concerning alternatives for therapeutic anticoagulation in this patient. She is not interested in pursuing evaluation for an implantable cardioverter defibrillator. The Inpatient Cardiology Service will sign off. Please re-consult us for any further questions. Staff name: Clemente Sam MD Date: 08/09/2018 History of Present Illness: Betina Baron is a 48 y.o. female With PMH of LV thrombus, HFrEF, DM, polysubstance abuse, Tobacco Abuse, left lower extremity BKA, Uterine Fibroid who presented to the [facility] as a transfer from the [facility] yesterday for the leg pain and CTA showed diffuse embolic diffuse. Patient was recently admitted to the [facility] due to hyperglycemia and was discharged on Tuesday. As she reached back home she started having left leg pain , which prompted her to go the Hospital back and they did CTA abd/pelvis and arteriogram, she was found to have a lot of arterial embolic disease. Hence she was transferred here for the further management. Vascular surgery was consulted and they did b/l lower extremities thrombectomy. She says she has been complaint with her warfarin since discharge, she follows an outside doctor for the INR checks and she mentions her INR has been subtherapeutic a lot of times. No chest pain, SOB, Palpitations, nausea, vomiting, dizziness and syncope. Now patients leg pain has improved a lot. Past Medical History: Diagnosis Date DM (diabetes mellitus) (HCC) Polysubstance abuse Past Surgical History: Procedure Laterality Date HX BELOW KNEE AMPUTATION Social History Social History Marital status: Spouse name: N/A Number of children: N/A Years of education: N/A Social History Main Topics Smoking status: Current Every Day Smoker Packs/day: 1.00 Years: 20.00 Types: Cigarettes Smokeless tobacco: Never Used Alcohol use No Drug use: No Sexual activity: Not on file Other Topics Concern Not on file Social History Narrative No narrative on file Family history reviewed; non-contributory Allergies: Pcn [penicillins] Scheduled Meds: aspirin EC tablet 81 mg 81 mg Oral QDAY atorvastatin (LIPITOR) tablet 80 mg 80 mg Oral QDAY carvedilol (COREG) tablet 3.125 mg 3.125 mg Oral BID cefepime (MAXIPIME) 2 g/100 ml iso-osmotic IVPB 2 g Intravenous Q8H* furosemide (LASIX) tablet 40 mg 40 mg Oral QDAY insulin aspart U-100 (NOVOLOG FLEXPEN) injection PEN 0-14 Units 0-14 Units Subcutaneous ACHS insulin glargine (LANTUS SOLOSTAR, BASAGLAR) injection PEN 20 Units 20 Units Subcutaneous QHS lisinopril (PRINIVIL; ZESTRIL) tablet 2.5 mg 2.5 mg Oral QDAY vancomycin (VANCOCIN) 1,000 mg in dextrose 5% (D5W) 250 mL IVPB ([id number]) 15 mg /kg Intravenous Q12H* Continuous Infusions: heparin (porcine) 20,000 units/D5W 500 mL infusion (std conc)(premade) 1, 000 Units/hr (08/09/18 1352) PRN and Respiratory Meds:fentaNYL citrate PF Q1H PRN, oxyCODONE Q4H PRN, vancomycin, pharmacy to manage Per Pharmacy Review of Systems: Review obtained from patient. Constitutional: negative Eyes: negative Ears, nose, mouth, throat, and face: negative Respiratory: negative Cardiovascular: negative Gastrointestinal: negative Genitourinary:negative Integument/breast: negative Hematologic/lymphatic: negative Musculoskeletal:has left leg BKA Neurological: negative Behavioral/Psych: negative Endocrine: positive for the Diabetes Mellitus Allergic/Immunologic: negative Vital Signs: Last Filed in 24 hours Vital Signs: 24 hour Range BP: 111/65 (08/09 1430) Temp: 37.4 C (99.3 F) (08/09 1430) Pulse: 97 (08/09 1430) Respirations: 17 PER MINUTE (08/09 1430) SpO2: 99 % (08/09 1430) O2 Delivery: None (Room Air) (08/09 1430) SpO2 Pulse: 97 (08/09 1430) Height: 180.3 cm (71") (08/09 0800) BP: (103-115)/(61-68) ABP: (123-138)/(54-65) Temp: [37 C (98.6 F)-38.2 C (100.7 F)] Pulse: [88-97] Respirations: [15 PER MINUTE-23 PER MINUTE] SpO2: [96 %-100 %] O2 Delivery: None (Room Air) Physical Exam: General: Alert, no distress, appears stated age Head: Normocephalic, without obvious abnormality, atraumatic Eyes: Conjunctivae/corneas clear, EOMs intact. Neck: trachea midline and no JVD Lungs: Clear to auscultation bilaterally Heart: Regular rate and rhythm, S1, S2 normal, no murmur, click rub or gallop Abdomen: Soft, non-tender. Bowel sounds normal. No masses. No organomegaly. Extremities: b/l pulses 2+ intact, no swelling and edema. Left lower extremity BKA present. She has right lower extremity incision antoinette present at the thigh and villarreal- well healed. 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 Lab/Radiology/Other Diagnostic Tests: 24-hour labs: Results for orders placed or performed during the hospital encounter of (from the past 24 hour(s)) POC GLUCOSE Collection Time: 08/09/18 4:08 AM Result Value Ref Range Glucose, POC 373 (H) 70 - 100 MG/DL CBC Collection Time: 08/09/18 4:23 AM Result Value Ref Range White Blood Cells 22.4 (H) 4.5 - 11.0 K/UL RBC 3.83 (L) 4.0 - 5.0 M/UL Hemoglobin 7.8 (L) 12.0 - 15.0 GM/DL Hematocrit 26.0 (L) 36 - 45 % MCV 67.9 (L) 80 - 100 FL MCH 20.4 (L) 26 - 34 PG MCHC 30.0 (L) 32.0 - 36.0 G/DL RDW 31.7 (H) 11 - 15 % Platelet Count 253 150 - 400 K/UL MPV 8.6 7 - 11 FL BASIC METABOLIC PANEL Collection Time: 08/09/18 4:23 AM Result Value Ref Range Sodium 126 (L) 137 - 147 MMOL/L Potassium 4.5 3.5 - 5.1 MMOL/L Chloride 96 (L) 98 - 110 MMOL/L CO2 20 (L) 21 - 30 MMOL/L Anion Gap 10 3 - 12 Glucose 348 (H) 70 - 100 MG/DL Blood Urea Nitrogen 22 7 - 25 MG/DL Creatinine 0.89 0.4 - 1.00 MG/DL Calcium 8.4 (L) 8.5 - 10.6 MG/DL eGFR Non >60 >60 mL/min eGFR >60 >60 mL/min LACTIC ACID(LACTATE) Collection Time: 08/09/18 4:23 AM Result Value Ref Range Lactic Acid 1.3 0.5 - 2.0 MMOL/L PTT (APTT) Collection Time: 08/09/18 4:23 AM Result Value Ref Range APTT 21.7 20.0 - 36.0 SEC TYPE & CROSSMATCH Collection Time: 08/09/18 4:23 AM Result Value Ref Range Units Ordered 2 Crossmatch Expires 08/12/2018 Record Check 2ND TYPE REQUIRED ABO/RH(D) A NEG Antibody Screen NEG Electronic Crossmatch YES Unit Number [id number] Blood Component Type RBC,ADSOL,LEUKO REDUCED,1ST CONT. Unit Division 0 Status OF Unit ISSUED Transfusion Status OK TO TRANSFUSE Crossmatch Result COMPATIBLE,ELECTRONIC Unit Number [id number] Blood Component Type RBC,ADSOL,LEUKO REDUCED,2ND CONT. Unit Division 0 Status OF Unit REL FROM ALLOC Transfusion Status OK TO TRANSFUSE Crossmatch Result COMPATIBLE,ELECTRONIC POC GLUCOSE Collection Time: 08/09/18 5:27 AM Result Value Ref Range Glucose, POC 393 (H) 70 - 100 MG/DL POC GLUCOSE Collection Time: 08/09/18 6:07 AM Result Value Ref Range Glucose, POC 432 (H) 70 - 100 MG/DL POC GLUCOSE Collection Time: 08/09/18 7:05 AM Result Value Ref Range Glucose, POC 391 (H) 70 - 100 MG/DL PROTIME INR (PT) Collection Time: 08/09/18 8:10 AM Result Value Ref Range INR 1.1 0.8 - 1.2 BLOOD TYPE CONFIRMATION - ORDER ONLY IF REQUESTED BY LAB Collection Time: 08/09/18 8:10 AM Result Value Ref Range ABO/RH(D) A NEG POC GLUCOSE Collection Time: 08/09/18 9:27 AM Result Value Ref Range Glucose, POC 219 (H) 70 - 100 MG/DL POC BLOOD GAS ARTERIAL Collection Time: 08/09/18 9:29 AM Result Value Ref Range PH-ART-POC 7.35 7.35 - 7.45 [id number] 47 (H) 35 - 45 MMHG PO2-ART-POC 513 (H) 80 - 100 MMHG Base Ex-ART-POC 0.0 MMOL/L O2 Sat-ART-POC 100.0 (H) 95 - 99 % [id number] 25.9 21 - 28 MMOL/L POC HEMATOCRIT Collection Time: 08/09/18 9:29 AM Result Value Ref Range Hemoglobin POC 9.2 (L) 12.0 - 15.0 GM/DL Hematocrit POC 27.0 (L) 36 - 45 % POC POTASSIUM Collection Time: 08/09/18 9:29 AM Result Value Ref Range Potassium-POC 3.6 3.5 - 5.1 MMOL/L POC SODIUM Collection Time: 08/09/18 9:29 AM Result Value Ref Range Sodium-POC 129 (L) 137 - 147 MMOL/L POC IONIZED CALCIUM Collection Time: 08/09/18 9:29 AM Result Value Ref Range Ionized Calcium-POC 1.12 1.0 - 1.3 MMOL/L POC GLUCOSE Collection Time: 08/09/18 10:34 AM Result Value Ref Range Glucose, POC 139 (H) 70 - 100 MG/DL POC BLOOD GAS ARTERIAL Collection Time: 08/09/18 11:12 AM Result Value Ref Range PH-ART-POC 7.40 7.35 - 7.45 [id number] 41 35 - 45 MMHG PO2-ART-POC 488 (H) 80 - 100 MMHG Base Ex-ART-POC 0.0 MMOL/L O2 Sat-ART-POC 100.0 (H) 95 - 99 % [id number]-PLM-ILG 24.9 21 - 28 MMOL/L POC HEMATOCRIT Collection Time: 08/09/18 11:12 AM Result Value Ref Range Hemoglobin POC 8.8 (L) 12.0 - 15.0 GM/DL Hematocrit POC 26.0 (L) 36 - 45 % POC POTASSIUM Collection Time: 08/09/18 11:12 AM Result Value Ref Range Potassium-POC 3.4 (L) 3.5 - 5.1 MMOL/L POC SODIUM Collection Time: 08/09/18 11:12 AM Result Value Ref Range Sodium-POC 131 (L) 137 - 147 MMOL/L POC IONIZED CALCIUM Collection Time: 08/09/18 11:12 AM Result Value Ref Range Ionized Calcium-POC 1.06 1.0 - 1.3 MMOL/L POC GLUCOSE Collection Time: 08/09/18 11:40 AM Result Value Ref Range Glucose, POC 80 70 - 100 MG/DL POC GLUCOSE Collection Time: 08/09/18 12:27 PM Result Value Ref Range Glucose, POC 64 (L) 70 - 100 MG/DL POC GLUCOSE Collection Time: 08/09/18 12:44 PM Result Value Ref Range Glucose, POC 82 70 - 100 MG/DL POC GLUCOSE Collection Time: 08/09/18 1:48 PM Result Value Ref Range Glucose, POC 111 (H) 70 - 100 MG/DL POC GLUCOSE Collection Time: 08/09/18 2:29 PM Result Value Ref Range Glucose, POC 126 (H) 70 - 100 MG/DL CBC AND DIFF Collection Time: 08/09/18 3:00 PM Result Value Ref Range White Blood Cells 20.9 (H) 4.5 - 11.0 K/UL RBC 3.77 (L) 4.0 - 5.0 M/UL Hemoglobin 8.0 (L) 12.0 - 15.0 GM/DL Hematocrit 26.8 (L) 36 - 45 % MCV 70.9 (L) 80 - 100 FL MCH 21.3 (L) 26 - 34 PG MCHC 30.0 (L) 32.0 - 36.0 G/DL RDW 31.8 (H) 11 - 15 % Platelet Count 275 150 - 400 K/UL MPV 8.8 7 - 11 FL Neutrophils 90 (H) 41 - 77 % Lymphocytes 2 (L) 24 - 44 % Monocytes 8 4 - 12 % Eosinophils 0 0 - 5 % Basophils 0 0 - 2 % Absolute Neutrophil Count 18.80 (H) 1.8 - 7.0 K/UL Absolute Lymph Count 0.50 (L) 1.0 - 4.8 K/UL Absolute Monocyte Count 1.60 (H) 0 - 0.80 K/UL Absolute Eosinophil Count 0.00 0 - 0.45 K/UL Absolute Basophil Count 0.00 0 - 0.20 K/UL COMPREHENSIVE METABOLIC PANEL Collection Time: 08/09/18 3:00 PM Result Value Ref Range Sodium 128 (L) 137 - 147 MMOL/L Potassium 3.9 3.5 - 5.1 MMOL/L Chloride 100 98 - 110 MMOL/L Glucose 185 (H) 70 - 100 MG/DL Blood Urea Nitrogen 19 7 - 25 MG/DL Creatinine 0.90 0.4 - 1.00 MG/DL Calcium 7.8 (L) 8.5 - 10.6 MG/DL Total Protein 5.9 (L) 6.0 - 8.0 G/DL Total Bilirubin 0.5 0.3 - 1.2 MG/DL Albumin 2.8 (L) 3.5 - 5.0 G/DL Alk Phosphatase 81 25 - 110 U/L AST (SGOT) 48 (H) 7 - 40 U/L CO2 20 (L) 21 - 30 MMOL/L ALT (SGPT) 25 7 - 56 U/L Anion Gap 8 3 - 12 eGFR Non >60 >60 mL/min eGFR >60 >60 mL/min MAGNESIUM Collection Time: 08/09/18 3:00 PM Result Value Ref Range Magnesium 1.8 1.6 - 2.6 mg/dL PHOSPHORUS Collection Time: 08/09/18 3:00 PM Result Value Ref Range Phosphorus 2.7 2.0 - 4.0 MG/DL Pertinent radiology reviewed. Turner Harris MD Pager [phone] * Ofe Soriano MD - 08/09/2018 5:24 AM CDT Associated Order(s): CONSULT VASCULAR SURGERY PHYSICIAN Formatting of this note may be different from the original. Vascular Surgery Consult 08/09/2018 Patient: Betina Baron Admission Date: 08/09/2018, LOS: 0 days Admission Diagnosis: DKA (diabetic ketoacidoses) (HCC) [E13.10] Date of Service: August 09, 2018 Reason for Consult: Left femoral artery embolus Referring Provider: Raul Burger MD Attending Surgeon: Kim Mccarthy MD Consult Performed by: Ofe Soriano DO ASSESSMENT: 48 y.o. female with polysubstance abuse, uncontrolled diabetes, left BKA, left ventricular thrombus transferred with DKA and multiple distal emboli including splenic, renal, and left femoral artery emboli PLAN: - Obtain STAT CTA abd/pelvis with bilateral run offs (ordered) - Keep NPO - Continue heparin gtt - Further recommendations pending CTA results Discussed plan of care with staff surgeon, Dr. Mccarthy, who directed plan of care. Ofe Soriano DO Pager: [phone] HPI: Betina Baron is a 48 y.o. female with polysubstance abuse, uncontrolled diabetes, left ventricular thrombus transferred with DKA and multiple distal emboli including splenic, renal, and left femoral artery emboli. Ms. Baron was diagnosed with a LV thrombus in March 2018. She is supposed to take Coumadin; however, there is concern about compliance with her anticoagulation. She reports onset of left stump pain yesterday which radiates up her leg. She denies any pain in the right lower extremity. She denies motor or sensory changes. She was taken to an outside facility where a CTA abd/pelvis was performed which demonstrated left renal, splenic, and left femoral artery emboli. She was also noted to be in DKA. She was started on a heparin drip and transferred to for further management. Past Medical History: Diagnosis Date DM (diabetes mellitus) (HCC) Polysubstance abuse Past Surgical History: Procedure Laterality Date HX BELOW KNEE AMPUTATION Medications: No current facility-administered medications on file prior to encounter. Current Outpatient Prescriptions on File Prior to Encounter Medication Sig Dispense Refill aspirin EC 81 mg tablet Take 1 tablet by mouth daily. Take with food. 90 tablet 3 atorvastatin (LIPITOR) 80 mg tablet Take 1 tablet by mouth daily. 30 tablet 0 carvedilol (COREG) 3.125 mg tablet Take 1 tablet by mouth twice daily. Take with food. 60 tablet 0 enoxaparin (LOVENOX) 80 mg syrg Inject 0.8 mL under the skin twice daily. 11.2 mL 0 furosemide (LASIX) 40 mg tablet Take 1 tablet by mouth daily. 30 tablet 0 insulin aspart U-100 (NOVOLOG FLEXPEN) 100 unit/mL injection PEN Inject 8 Units under the skin three times daily with meals. 45 mL 3 insulin detemir(+) (LEVEMIR FLEXTOUCH U-100 INSULN) 100 unit/mL (3 mL) injection pen Inject 30 Units under the skin at bedtime daily. lisinopril (PRINIVIL, ZESTRIL) 2.5 mg tablet Take 1 tablet by mouth daily. 30 tablet 0 metFORMIN (GLUCOPHAGE) 500 mg tablet Take 500 mg by mouth twice daily with meals. nystatin (NYSTOP) 100,000 unit/g topical powder Apply to pannus twice daily 15 g 0 oxyCODONE (ROXICODONE, OXY-IR) 5 mg tablet Take 1-2 tablets by mouth every 12 hours as needed For pain 15 tablet 0 spironolactone (ALDACTONE) 25 mg tablet Take 1 tablet by mouth twice daily. Take with food. 60 tablet 0 vitamins, multi w/minerals 9 mg iron-400 mcg tab Take 1 tablet by mouth daily. warfarin (COUMADIN) 7.5 mg tablet Take 1 tablet by mouth at bedtime daily. 30 tablet 0 Allergies: Pcn [penicillins] Social History Social History Marital status: Spouse name: N/A Number of children: N/A Years of education: N/A Occupational History Not on file. Social History Main Topics Smoking status: Current Every Day Smoker Packs/day: 1.00 Years: 20.00 Types: Cigarettes Smokeless tobacco: Never Used Alcohol use No Drug use: No Sexual activity: Not on file Other Topics Concern Not on file Social History Narrative No narrative on file Family History Problem Relation Age of Onset Diabetes Mother Diabetes Sister Diabetes Brother Vitals: Vital Signs: Last Filed In 24 Hours Vital Signs: 24 Hour Range BP: 106/61 (08/09 402) Temp: 38.2 C (100.7 F) (08/09 402) Pulse: 88 (08/09 402) Respirations: 23 PER MINUTE (08/09 402) SpO2: 96 % (08/09 402) O2 Delivery: None (Room Air) (08/09 402) SpO2 Pulse: 88 (08/09 402) Height: 180.3 cm (71") (08/09 400) BP: (106)/(61) Temp: [38.2 C (100.7 F)] Pulse: [88] Respirations: [23 PER MINUTE] SpO2: [96 %] O2 Delivery: None (Room Air) Intake/Output: No intake or output data in the 24 hours ending 08/09/18 05 Physical Exam: General: Alert, oriented, cooperative Head: Normocephalic, without obvious abnormality, atraumatic Eyes: EOMI, no scleral icterus Neck: Supple, symmetrical, trachea midline Lungs: Unlabored respirations. Effort normal. Chest wall: No tenderness or deformity Heart: Regular rate and rhythm Abdomen: Soft, non-tender, non-distended. Skin: Skin color, texture, turgor normal. No rashes or lesions. Multiple excoriated lesions on posterior torso Extremity: Left BKA. Palpable femoral pulse bilaterally. No signal of left popliteal pulse. Cool left stump, no skin changes or discoloration. Biphasic right popliteal pulse. No signal of right DP and PT Neurologic: Motor and sensation grossly intact ROS: A comprehensive 12 point review of systems was obtained and is negative except for as noted in the HPI. Lab/Radiology/Other Diagnostic Tests: No results for input(s): HGB, HCT, WBC, PLTCT, NA, K, CL, CO2, BUN, CR, GLU, CA , MG, PO4, ALBUMIN, TOTPROT, TOTBILI, AST, ALT, ALKPHOS, ANDREINA, LIPASE, PREALB, INR, PT, PTT in the last 72 hours. POC Glucose (Download): (!) 373 (08/09/18 9410) Associated attestation - Kim Mccarthy MD - 08/09/2018 8:07 AM CDT Formatting of this note may be different from the original. ATTESTATION I personally performed the rodriguez portions of the E/M visit, discussed case with resident and concur with resident documentation of history, physical exam, assessment, and treatment plan unless otherwise noted. 48-year-old female with a history of a cardiac thrombus has been admitted at an outside hospital with diabetic ketoacidosis. She developed pain in her left below the knee amputation stump over the past several days which has become more severe and the pain is now radiating throughout her entire left leg and up to her hip. She also notices cold temperature in her left lower leg. She reports no pain in her right leg but the right foot has become very cold. She has no weakness or numbness. On examination she has bilateral palpable femoral pulses. There is no dopplerable flow in her right foot. There is no palpable popliteal pulse in her left leg which she has a below-knee amputation. She is intact motor and sensory function in her lower extremities. Her left stump and right foot are very cold and pale. She has no tissue breakdown. CT angiogram shows complete occlusion of the distal left common femoral artery and profunda artery with thrombus along with occlusion of her superficial femoral artery. Her right lower extremity has complete occlusion of the popliteal artery and trifurcation with thrombus. These are likely embolic from her heart. She is also has splenic and renal infarcts seen on CT angiogram. She currently has no abdominal pain and her abdominal exam is benign. She is on a heparin drip. I recommend emergent left and right leg arterial thrombectomy to improve her circulation and help preserve her lower extremities. She will need a left femoral artery cutdown for her thrombectomy and a right popliteal artery cutdown. She is agreeable to proceed with surgery. She will be taken to surgery today for emergent intervention. She will need to be on long-term anticoagulation. Cardiology and general surgery will be consulted. Kim Mccarthy MD Staff name: Kim Mccarthy MD Date: 08/09/2018 in this encounter Miscellaneous Notes * Case Mgmt DC Plan - Tara Fields RN - 08/22/2018 9:27 PM CDT Formatting of this note may be different from the original. Case Management Progress Note NAME:Betina Baron :1969 AGE: 48 y.o. ADMISSION DATE: 08/09/2018 DAYS ADMITTED: LOS: 13 days Todays Date: 08/23/2018 Plan Pt DC'd to home with ex-SO transporting her using a gas card provided by [facility] and obtaining f/u labs at [facility] in [facility] [place], operated by [facility]. Pt is scheduled to return to [facility] on 08/24/18 for her every two week injection of IV ABX. Interventions ? Support Support: Pt/Family Updates re:POC or DC Plan ? Info or Referral ? Discharge Planning Discharge Planning: Other -NCM spoke with pts OBGYN office to advise that the pts hospital was pending the Depo Lupron injections until authorized through their mgt to provide to pt. Merna from Pharmacy had advised NCM that she already knows that another expensive medication had been denied because "[facility] had decided to prescribe an expensive medication, but if [facility] wants to provide the medications to [facility] that they could then administer them for the pt". -[facility] asked Merna to please check with her mgt r/t providing the Depo Lupron [id number] injection to the pt prior to refusing to provide it. Merna agreed to check with her supervisor grove tomorrow, stating they were currently out of the office and return NCM call. NCM contact info was provided. ? Medication Needs ? Financial Financial: Yamila Referral/Follow-up ? Legal ? Other Disposition ? Expected Discharge Date Expected Discharge Date: 08/22/18 ? Transportation Does the patient need discharge transport arranged?: No (Pt may need assistance with a gas card) Transportation Name, Phone and Availability #1: [facility] [phone] Does the patient use Medicaid Transportation?: No ? Next Level of Care (Acute Psych discharges only) ? Discharge Disposition Durable Medical Equipment No service has been selected for the patient. Destination No service has been selected for the patient. Home Care No service has been selected for the patient. Dialysis/Infusion No service has been selected for the patient. Tara Fields, MEDICAL RADIATION TECH, [facility] Nurse Golf Ball Trimmer Pager: [phone] * Case Mgmt DC Plan - Shelia Pratt - 08/22/2018 3:49 PM CDT CLOTH FINISHING RANGE OPERATOR CHIEF Note: This auto service writer delivered a $10 pre-paid [employer] gasoline card to pt's RN Shelia Pratt Relief Salesperson * Case Mgmt DC Plan - aKtie Mendenhall - 08/22/2018 3:28 PM CDT Formatting of this note may be different from the original. Case Management Progress Note NAME:Betina Baron :1969 AGE: 48 y.o. ADMISSION DATE: 08/09/2018 DAYS ADMITTED: LOS: 13 days Todays Date: 08/22/2018 Plan Plan to d/c to home today. Pt's daughter driving pt home to [place], [place]. SW provided gas card. Interventions ? Support Support: Pt/Family Updates re:POC or DC Plan ? Info or Referral ? Discharge Planning Discharge Planning: Home Health Covering SW spoke with Med M team. Per team, pt is medically stable to d/c today. [facility] states pt's daughter is picking pt up today but does not have enough money for gas to get home. LUIS tasked CLOTH FINISHING RANGE OPERATOR CHIEF to deliver gas card to pt's RN. ? Medication Needs ? Financial Financial: Yamila Referral/Follow-up ? Legal ? Other Disposition ? Expected Discharge Date Expected Discharge Date: 08/22/18 ? Transportation Does the patient need discharge transport arranged?: No (Pt may need assistance with a gas card) Transportation Name, Phone and Availability #1: [facility] [phone] Does the patient use Medicaid Transportation?: No ? Next Level of Care (Acute Psych discharges only) ? Discharge Disposition Durable Medical Equipment No service has been selected for the patient. Destination No service has been selected for the patient. Home Care No service has been selected for the patient. Dialysis/Infusion No service has been selected for the patient. Jennifer Mendenhall [facility] Studio Manager Office [phone] Pager [phone] * Case Mgmt DC Plan - Tara Fields RN - 08/22/2018 2:53 PM CDT Formatting of this note may be different from the original. Case Management Progress Note NAME:Betina Baron :1969 AGE: 48 y.o. ADMISSION DATE: 08/09/2018 DAYS ADMITTED: LOS: 13 days Todays Date: 08/22/2018 Plan Anticipate pt to dc today with ex SO to transport her home and follow up on IV Antibiotics at scheduled appt with [facility]. Interventions ? Support Support: Pt/Family Updates re:POC or DC Plan -NCM met with pt and provided a free Eliquis trial coupon card as requested by attending. -NCM discussed pts plan of dc and placed her first IV ABX appt on her CM notes of AVS including location and instructions. -Pt called NCM with request for a gas card for her daughters car. [facility] advised that a [facility] is tasked with delivering a gas card to pts room. -NCM discussed pts instructions found in her AVS for f/u care and appts. ? Info or Referral ? Discharge Planning Discharge Planning: Home Health -NCM spoke with patients local hospital [facility] in [facility] [place] NELLY Holt who states that providing weekly labs and the once every three months Depo Lupron should not be a problem if NCM would send orders. -NCM sent orders for above and received successful fax confirmation at 2:33pm. -NCM called [facility] and scheduled pt for the time frame she requested of 08/24/18 at 1:45pm and placed her first IV ABX appt on her CM notes of AVS including location and instructions to pt from the infusion clinic. -NCM called [facility] ([phone]) in [place], [place] to attempt confirmation of orders received. -Merna at [facility] states that the pt can get labs at their Lab: and can call their OP Infusion clinic for the Depo Lupron if they find they are allowed to provide the injection since they are a [facility] it would have to be an authorized injection. ? Medication Needs ? Financial Financial: Yamila Referral/Follow-up -Pt provided a free trial coupon for Eliquis. -Pt has ryan IV ABX provided by [facility] OP [facility]fusion [facility] once every two weeks. ? Legal ? Other Disposition ? Expected Discharge Date Expected Discharge Date: 08/22/18 ? Transportation Does the patient need discharge transport arranged?: No (Pt may need assistance with a gas card) Transportation Name, Phone and Availability #1: Ex-, Robby [phone] Does the patient use Medicaid Transportation?: No ? Next Level of Care (Acute Psych discharges only) ? Discharge Disposition Durable Medical Equipment No service has been selected for the patient. [facility] Destination No service has been selected for the patient. [facility] Home Care No service has been selected for the patient. [facility] Dialysis/Infusion No service has been selected for the patient. Tara Fields RN BSN, [facility] Nurse Golf Ball Trimmer Pager: *[phone] * Case Mgmt DC Plan - Tara Fields RN - 08/22/2018 8:53 AM CDT Formatting of this note may be different from the original. Case Management Progress Note NAME:Betina Baron :1969 AGE: 48 y.o. ADMISSION DATE: 08/09/2018 DAYS ADMITTED: LOS: 13 days Todays Date: 08/22/2018 Plan Anticipate pt to dc with biweekly f/u IV ABX at [facility] Infusion Clinic and weekly labs obtained at [facility] in [facility] [place] by [facility] near her home, transported home by her ex-SO with the use of a gas card provided by [facility]. *Pt has a f/u OBGYN appt scheduled for 09/18/18. Interventions ? Support Support: Pt/Family Updates re:POC or DC Plan ? Info or Referral ? Discharge Planning Discharge Planning: Home Health -[facility] called [facility] in [facility] [place] to advise pt would need weekly labs while on her IV ABX provided by [facility] and asked NELLY Holt if they could provide the weekly labs and the Q3mos Dep Lupron injections. Yanet discussed that she would need orders sent to confirm but that she did not think it would be a problem. ? Medication Needs ? Financial Financial: Yamila Referral/Follow-up ? Legal ? Other Disposition ? Expected Discharge Date Expected Discharge Date: 08/21/18 ? Transportation Does the patient need discharge transport arranged?: No (Pt may need assistance with a gas card) Transportation Name, Phone and Availability #1: Ex-, Robby [phone] Does the patient use Medicaid Transportation?: No ? Next Level of Care (Acute Psych discharges only) ? Discharge Disposition Durable Medical Equipment No service has been selected for the patient. [facility] Dest[facility] No service has been selected for the patient. Home Care No service has been selected for the patient. [facility] D[facility]/Infusion No service has been selected for the patient. Tara Fields MEDICAL RADIATION TECH, [facility] Nurse Golf Ball Trimmer Pager: *[phone] * Care Plan - Jacinta Merritt RN - 08/20/2018 12:15 AM CDT Problem: Nutrition Deficit Goal: Adequate nutritional intake Outcome: Goal Ongoing ongoing * Procedures (Immed Post or Bedside) - Hugh Sim MD - 08/18/2018 5: 47 PM CDT Immediate Post Procedure Note Date: 08/18/2018 Attending Physician: Alona Almaguer MD Performing Provider: Hugh Sim MD Consent: Consent obtained from patient. Time out performed: Consent obtained, correct patient verified, correct procedure verified, correct site verified, patient marked as necessary. Pre/Post Procedure Diagnosis: Uterine fibroids Indications: Uterine fibroids, persistent bleeding requiring transfusions. Anesthesia: Local 5 mL 2% lidocaine without epinephrine with IV sedation versed and fentanyl Procedure(s): Pelvic arteriogram with bilateral uterine fibroid embolization Findings: Unremarkable bilateral uterine fibroid embolization using 100-300 micron PVA particles. Right femoral artery access. Hemostasis achieved with exoseal closure device and manual pressure. Estimated Blood Loss: Minimal Specimen(s) Removed/Disposition: None Complications: None Patient Tolerated Procedure: Well Post-Procedure Condition: stable Hugh Sim MD Pager [phone] * Case Mgmt DC Plan - Sade Francisco RN - 08/16/2018 12:19 PM CDT Formatting of this note may be different from the original. Case Management Progress Note NAME:Betina Baron :1969 AGE: 48 y.o. ADMISSION DATE: 08/09/2018 DAYS ADMITTED: LOS: 7 days Todays Date: 08/16/2018 Plan Discharge planning is ongoing Interventions ? Support Support: Pt/Family Updates re:POC or DC Plan ? Info or Referral ? Discharge Planning Per ID, patient may need to discharge on Dalbavancin 1500mg weekly every 2 weeks CM contacted [facility] [phone] No ability for this facility to obtain medication due to cost of med unless [facility] would be able to ship to facility for administration CM contacted med assist program, awaiting response [place] [phone] to assist with setting up this service Discharge planning is ongoing CM to follow and assist with discharge needs as identified ? Medication Needs ? Financial Financial: Yamila Referral/Follow-up ? Legal ? Other Disposition ? Expected Discharge Date Expected Discharge Date: 08/21/18 ? Transportation Does the patient need discharge transport arranged?: No (Pt may need assistance with a gas card) Transportation Name, Phone and Availability #1: Ex-, Robby [phone] Does the patient use Medicaid Transportation?: No ? Next Level of Care (Acute Psych discharges only) ? Discharge Disposition Durable Medical Equipment No service has been selected for the patient. [facility] Dest[facility] No service has been selected for the patient. Home Care No service has been selected for the patient. Dialysis/Infusion No service has been selected for the patient. Sade Francisco RN. MS[facility] Integrated Nurse Golf Ball Trimmer Pager [phone] * Case Mgmt DC Plan - Mrajan Galaviz - 08/14/2018 4:28 PM CDT Formatting of this note may be different from the original. Case Management Progress Note NAME:Betina Baron :1969 AGE: 48 y.o. ADMISSION DATE: 08/09/2018 DAYS ADMITTED: LOS: 5 days Todays Date: 08/14/2018 Plan DCP Ongoing: pt to remain in-house until appropriate DCP determined. Interventions ? Support Support: Pt/Family Updates re:POC or DC Plan LUIS reviewed EMR and discussed POC with team. ID following-pt currently on IV Dapto [id number] for long-term IV abx, duration unknown. DC IV ceftaroline. Surg vascular following-pt went for R popliteal and Tibial Thrombectomy on . Pt went for PATRIA today. ? Info or Referral ? Discharge Planning Barriers to DC: Pt uninsured-cannot DC to facility Non-compliance and drug usage-UDS positive for meth and amphetamines. Cost of IV Dapto and duration for ryan IV abx Pt is limited by mobility due to having one leg. Therefore, DC home with OP Infusion clinic with perihernial access is not feasible. ? Medication Needs ? Financial Financial: Yamila Referral/Follow-up LUIS notified pt [place] pending-however, system showing pt as uninsured. SW on Tuesday f/u with [employer] regarding coverage. ? Legal ? Other Disposition ? Expected Discharge Date Expected Discharge Date: 08/14/18 ? Transportation Does the patient need discharge transport arranged?: No (Pt may need assistance with a gas card) Transportation Name, Phone and Availability #1: Ex-, Robby [phone] Does the patient use Medicaid Transportation?: No ? Next Level of Care (Acute Psych discharges only) ? Discharge Disposition Durable Medical Equipment No service has been selected for the patient. [facility] No service has been selected for the patient. Home Care No service has been selected for the patient. Dialysis/Infusion No service has been selected for the patient. -Nadia Galaviz, [facility] *[phone] * Procedures (Immed Post or Bedside) - Clemente Sam MD - 08/14/2018 3:19 PM CDT Immediate Post Procedure Note Date: 08/14/2018 Attending Physician: Dr. Torres Performing Provider: Clemente Sam MD Consent: Consent obtained from patient. Time out performed: Consent obtained, correct patient verified, correct procedure verified, correct site verified, patient marked as necessary. Pre/Post Procedure Diagnosis: Indications: Bacteremia. Evaluate for vegetations and paravalvular abscess. Anesthesia: MAC (Monitored Anesthesia Care) Procedure(s): Transesophageal echo-Doppler study Findings: No vegetations noted. Estimated Blood Loss: None/Negligible Specimen(s) Removed/Disposition: None Complications: None Patient Tolerated Procedure: Well Post-Procedure Condition: stable Clemente Sam MD Pager [phone] * Procedures (Immed Post or Bedside) - Clemente Sam MD - 08/14/2018 2:27 PM CDT Pre-Operative Assessment for PATRIA or Cardioversion Date of Service: 08/14/2018 Betina Baron is a 48 y.o. y.o. female. : 1970 History and Physical Exam I reviewed H&P from 08/09/18 . No changes noted. Assessment I reviewed: nurse pre-procedure assessment (including past medical history, allergies, medications, labs) NPO status Acceptable I assessed the patient's airways and noted: no abnormalities I requested Anesthesia consult I discussed risks and alternatives of this type of sedation and the procedure with the patient Physical Status Classification ([place] Society of Anesthesiologists): ASA III (A patient with a severe systemic disease that limits activity, but is not incapacitating) Sedation/Medication Plan Sedation plan per Anesthesiology * Care Plan - Odin Oden - 08/10/2018 3:26 PM CDT Problem: Tobacco Use Goal: Knowledge of tobacco-use cessation methods Outcome: Goal Achieved Date Met: 08/10/18 [facility] CONSULTATION ASSESSMENT/RECOMMENDATIONS Patient was referred for [facility] consultation Tobacco Use Treatment Practical Counseling was provided, including recognizing danger situations, developing coping skills and providing basic information about quitting. MEDICATION RECOMMENDATIONS TO QUIT TOBACCO: In-patient quit-tobacco medication: If medically acceptable, please provide Nicotine patch (21 mg) and 2 mg nicotine gum. Discharge medication options: If acceptable, please provide DC Rx for Nicotine Inhaler Inhaler is not stocked in [place] pharmacy, please provide a paper Rx or send to outside pharmacyInhaler is not stocked in [place] pharmacy, please provide a paper Rx or send to outside pharmacy Post discharge support referral: Accepted Follow up provided by [facility] to begin one day after discharge [facility] Educational Material: Accepted History of Present Illness Reports using 10cigarettes per day. Reports using tobacco after 60 minutes minutes of waking. E-Cigarette or vape use: None Other tobacco use: None Years used: 36 Withdrawal: Significant nicotine withdrawal based upon the patients rating on the Nicotine Withdrawal Behavior Rating Scale. Patient lives with other smokers or vapers Set a quit date: No Plan about smoking after patient leaves the hospital: I plan to try to quit when I leave the hospital Interest in quitting: high Contact Information If I can be of further assistance, please call [facility] [phone] * Case Mgmt DC Plan - Claudia Baeza - 08/10/2018 2:21 PM CDT Request for Case Management Resources Delivered one gas voucher to pt's marva per the request of CINDY Gillespie. Claudia Baeza Relief Salesperson * Case Mgmt DC Plan - Vy Guillen - 08/10/2018 1:33 PM CDT Formatting of this note may be different from the original. Case Management Progress Note NAME:Betina Baron :1969 AGE: 48 y.o. ADMISSION DATE: 08/09/2018 DAYS ADMITTED: LOS: 1 day Todays Date: 08/10/2018 Plan Pt anticipated to d/c home once medically stable. Interventions ? Support ? Info or Referral ? Discharge Planning SW requested CLOTH FINISHING RANGE OPERATOR CHIEF deliver gas voucher to pt ish. SW attempted to see pt X2. SW placed list of mental health resources near her home including [facility] and [facility] in pt ish and will f/u. ? Medication Needs ? Financial ? Legal ? Other Disposition ? Expected Discharge Date Expected Discharge Date: 08/14/18 ? Transportation Does the patient need discharge transport arranged?: No (Pt may need assistance with a gas card) Transportation Name, Phone and Availability #1: Ex-, Robby [phone] Does the patient use Medicaid Transportation?: No ? Next Level of Care (Acute Psych discharges only) ? Discharge Disposition Durable Medical Equipment No service has been selected for the patient. Destination No service has been selected for the patient. Home Care No service has been selected for the patient. Dialysis/Infusion No service has been selected for the patient. Vy Guillen [facility] [phone] * Anesthesia Post Op Day 1 - Kirti Cooper CRNA - 08/10/2018 7:50 AM CDT Formatting of this note may be different from the original. Anesthesia Follow-Up Evaluation: Post-Procedure Day One Name: Betina Baron : 1970 Age: 48 y.o. Sex: female Procedure Date: 08/09/2018 Procedure: Procedure(s): LEFT FEMORAL THROMBECTOMY, RIGHT POPLITEAL AND TIBIAL THROMBECTOMY Physical Assessment Height: 180.3 cm (71") Weight: 68.6 kg (151 lb 3.8 oz) Vital Signs (Last Filed in 24 hours) BP: 105/62 (08/10 322) Temp: 37.9 C (100.3 F) (08/10 322) Pulse: 92 (08/10 322) Respirations: 20 PER MINUTE (08/10 322) SpO2: 96 % (08/10 322) O2 Delivery: None (Room Air) (09/13 0400) SpO2 Pulse: 93 (08/10 0322) Height: 180.3 cm (71") (08/09 0800) Patient History Allergies Allergies Allergen Reactions Pcn [Penicillins] HIVES, RASH and SHORTNESS OF BREATH Medications Scheduled Meds: aspirin EC tablet 81 mg 81 mg Oral QDAY atorvastatin (LIPITOR) tablet 80 mg 80 mg Oral QDAY carvedilol (COREG) tablet 3.125 mg 3.125 mg Oral BID cefepime (MAXIPIME) 2 g/100 ml iso-osmotic IVPB 2 g Intravenous Q8H* furosemide (LASIX) tablet 40 mg 40 mg Oral QDAY insulin aspart U-100 (NOVOLOG FLEXPEN) injection PEN 0-14 Units 0-14 Units Subcutaneous ACHS insulin glargine (LANTUS SOLOSTAR, BASAGLAR) injection PEN 20 Units 20 Units Subcutaneous QHS lisinopril (PRINIVIL; ZESTRIL) tablet 2.5 mg 2.5 mg Oral QDAY vancomycin (VANCOCIN) 1,000 mg in dextrose 5% (D5W) 250 mL IVPB ([id number]) 15 mg /kg Intravenous Q12H* Continuous Infusions: heparin (porcine) 20,000 units/D5W 500 mL infusion (std conc)(premade) 1, 400 Units/hr (08/10/18 0732) PRN and Respiratory Meds:benzocaine/menthol Q2H PRN, fentaNYL citrate PF Q1H PRN , oxyCODONE Q4H PRN, vancomycin, pharmacy to manage Per Pharmacy Diagnostic Tests Hematology: Lab Results Component Value Date HGB 7.7 08/10/2018 HCT 25.0 08/10/2018 PLTCT 227 08/10/2018 WBC 19.2 08/10/2018 NEUT 88 08/10/2018 ANC 17.00 08/10/2018 LYMPH 18 04/13/2018 ALC 0.80 08/10/2018 SUPRIYA 7 08/10/2018 AMC 1.20 08/10/2018 EOSA 1 08/10/2018 ABC 0.00 08/10/2018 MCV 70.6 08/10/2018 MCH 21.8 08/10/2018 MCHC 30.8 08/10/2018 MPV 9.3 08/10/2018 RDW 32.8 08/10/2018 General Chemistry: Lab Results Component Value Date NA 127 08/10/2018 K 4.2 08/10/2018 CL 98 08/10/2018 CO2 22 08/10/2018 GAP 7 08/10/2018 BUN 23 08/10/2018 CR 0.93 08/10/2018 GLU 272 08/10/2018 CA 8.3 08/10/2018 ALBUMIN 2.8 08/10/2018 LACTIC 1.3 08/09/2018 MG 1.8 08/09/2018 TOTBILI 0.4 08/10/2018 PO4 2.7 08/09/2018 Coagulation: Lab Results Component Value Date PTT 22.1 08/10/2018 INR 1.1 08/09/2018 Follow-Up Assessment Patient location during evaluation: floor Anesthetic Complications: Anesthetic complications: The patient did not experience any anesthestic complications. Pain: Management:adequate Level of Consciousness: awake and alert Hydration:acceptable Airway Patency: patent Respiratory Status: acceptable Cardiovascular Status:acceptable Regional/Neuroaxial: * Operative Report (DICTATED ONLY) - iKm Mccarthy MD - 08/09/2018 7:16 PM CDT [address] [id number] PATIENT NAME: BETINA BARON MR#/PT#: [id number] Page 2 OPERATIVE REPORT DATE OF OPERATION: 08/09/2018 SURGEON: Kim Mccarthy MD DOCUMENT DESIGN SPECIALIST(S): Dani Juárez MD PREOPERATIVE DIAGNOSIS: 1. Left lower extremity acute limb threatening ischemia secondary to complete thrombosis of the distal left common femoral artery, profunda artery, and superficial femoral artery. 2. Right lower extremity limb threatening ischemia secondary to complete thrombosis of the popliteal artery and trifurcation. POSTOPERATIVE DIAGNOSIS: Same. OPERATIVE PROCEDURE: 1. Left common femoral artery, profunda artery, and superficial femoral artery thrombectomy. 2. Left common femoral artery closure with a bovine pericardial patch. 3. Right popliteal artery cutdown with thrombectomy of the right superficial femoral artery, popliteal artery, anterior tibial artery, posterior tibial artery, and peroneal artery. 4. Right anterior tibial artery cutdown with attempted thrombectomy (findings of chronic arterial occlusion). 5. Right posterior tibial artery cutdown with attempted thrombectomy (findings of chronic arterial occlusion). ANESTHESIA: General anesthesia. INDICATIONS FOR OPERATIVE PROCEDURE: Ms. Baron is a 48-year-old female, who presented to the hospital with symptoms of severe pain in her left [id number] amputation stump radiating up her leg to her hip. She also had a cool, cyanotic left lower leg. Her right lower extremity also had absence of pulses, symptomatic with a very cold temperature and a pale foot. CT angiogram of the aorta with runoff shows complete occlusion of the left distal common femoral artery, profunda artery, and superficial femoral artery from thrombosis, and complete occlusion of the right popliteal artery and trifurcation from arterial thrombosis. These are likely secondary to embolic events from her known cardiac thrombus. With her severe peripheral arterial disease and acute limb threatening ischemia, I recommended emergent surgical intervention with bilateral lower extremity arterial thrombectomies. Informed consent was obtained from the patient including the risks of bleeding, infection, further arterial ischemia, possible need for amputation, revision on her left above-knee amputation and possible amputation on the right leg if her circulation does not improve, difficulty healing her incision site. DESCRIPTION AND FINDINGS OF OPERATIVE PROCEDURE: The patient was brought to the operating room and placed on the table in supine position. She received general anesthesia and monitored throughout the case by the anesthesiologist. Her lower abdomen and bilateral lower extremities circumferentially were prepped and draped by normal sterile fashion. We began by making a longitudinal incision to the left groin. The subcutaneous tissue was dissected down to the femoral vessels. There was scar tissue and clips encountered in the femoral area and this was from previous arterial intervention. We dissected down through scar tissue. We were able to dissect out the common femoral artery up to the inguinal ligament and a vessel loop was placed around the proximal common femoral artery where there was a good palpable pulse. We continued dissection distally, dissected out the profunda artery and placed a vessel loop around it and the superficial femoral artery and placed a vessel loop around it. The superficial femoral artery was very thickened and felt like it was likely chronically occluded. The profunda artery was soft, but there was visible thrombus within the lumen of the distal common femoral and profunda arteries. We then made a longitudinal incision through the left medial calf, dissected down through the subcutaneous tissue, preserving the great saphenous vein. I dissected down to the fascia and incised it and entered the popliteal space. The popliteal artery was dissected out within the wound. We continued dissection distally down to the anterior tibial artery. One crossing vein was ligated with silk sutures proximally and distally and divided and I was able to get circumferential control around the anterior tibial artery. We then continued dissection and dissected out the tibial peroneal trunk and a vessel loop placed around this vessel. The patient was then fully heparinized. I began by making a transverse incision in the left common femoral artery through an old anastomosis. There was fresh thrombus within the lumen, which was removed. We ran a number 3 Samir catheter down the profunda artery, pulled copious amounts of thrombus. We repeated with a number 4 Samir catheter until there was no further thrombus and there was good backbleeding. We then ran a number 3 Samir catheter down the superficial femoral artery. It was very difficult to run down this vessel. We were able to run it down the length of the vessel, pulled back thrombus, but the vessel itself was very fibrotic. We repeated until there was no further thrombus, but I do feel this artery is likely chronically diseased. We ran a number 4 Samir catheter proximally through the common femoral and iliac vessels, pulled back and there was no thrombus. There was pulsatile inflow. There was a lot of intimal hyperplasia within the lumen of the distal common femoral artery where the previous anastomosis was. I therefore extended our incision longitudinally onto the profunda artery, making it a wide-open vessel and chose to use a bovine pericardial patch closure. The bovine pericardial patch was sewn onto the anterior wall of the open common femoral artery and profunda artery with running HS-7 Prolene suture. Prior to finishing this, we back bled the profunda artery, which had good back bleeding. There was pulsatile inflow through the common femoral artery. We irrigated with heparinized saline and finished the anastomosis. We then restored blood flow. There was strong dopplerable flow in the distal profunda vessel and Doppler flow in the superficial femoral artery. We then moved to the right leg. The popliteal artery was clamped proximally and the distal tibial vessels clamped. I made transverse arteriotomy in the distal popliteal artery just above the anterior tibial artery takeoff. There was fresh thrombus within the lumen. I ran a number 4 Samir catheter up the popliteal and superficial femoral artery , pulled back, and there was copious amounts of thrombus, which was removed. I repeated passes until there was no further thrombus and there was pulsatile inflow and the popliteal artery was clamped. I then attempted to run a number 3 Samir catheter down the anterior tibial artery. It was very difficult. It would only go several centimeters, and then it felt chronically occluded or there was thrombus that I could not pass. I pulled back, removed the small amount of thrombus, but I was not able to run it down the length of the leg. I then ran it down the tibioperoneal trunk. It ran down to at least the mid to distal calf level, but would not advance further. I pulled back copious amounts of thrombus. We repeated passes until there was no further thrombus removed. There was back bleeding. I irrigated distally with heparinized saline. I then closed the arteriotomy with running 6-0 Prolene suture and restored blood flow. There was dopplerable flow in the tibioperoneal trunk, but there was no dopplerable flow in the foot itself. Therefore, I cut down on the posterior tibial artery in the distal calf. I dissected out the tibioperoneal trunk and got out the peroneal artery and the posterior tibial artery, encircled them with vessel loops. I then opened the distal tibioperoneal trunk with a transverse arteriotomy just above the bifurcation. I then was able to selectively run a number 3 Samir catheter down the profunda artery, which ran down to the distal lower leg, pulled back. There was no thrombus and there was good back bleeding. I ran it down the posterior tibial artery, but it still would not run the length of the leg and there was not very good back bleeding. I closed the arteriotomy with a running 7-0 Prolene suture and restored blood flow. There was still no dopplerable flow in her foot. I was suspicious that she may have chronic occlusion of her anterior tibial and posterior tibial artery. However, I felt to give her the best chance of improved circulation, I would need to cut down on both these vessels and explore them at the ankle. Therefore, I made a longitudinal incision along her medial ankle over the popliteal artery. I dissected down through the fascia and dissected out the posterior tibial artery. The posterior tibial artery was very thickened and fibrotic. I made a small transverse arteriotomy, entered the lumen, but there was not hardly any lumen and I could not advance the Samir catheter proximally or distally. I feel this vessel was chronically occluded, possibly from old embolus in the past. I closed the arteriotomy with running 7-0 Prolene suture. I then made a longitudinal incision on her distal ankle on the anterior surface and dissected down through the fascia to the anterior tibial artery. The anterior tibial artery was very similar. It was thickened and fibrotic. I made a transverse arteriotomy. There was a small lumen. I was able to advance a number 3 Samir catheter proximally up the leg, pulled back, and there was a small amount of pulsatile inflow that the lumen was very small and the vessel fibrotic. I repeated pass again with a number 4 Samir trying to dilate it, but again it was very fibrotic. There was no thrombus removed during these passes. I ran a number 3 Samir catheter distally in the anterior tibial artery, would only go a few centimeters and again the lumen was very small. I closed the arteriotomy with running 7-0 Prolene suture. I feel that both of these vessels were likely chronically occluded or diseased from chronic history of embolus. Her main runoff is through her peroneal artery. I do not feel any further revascularization is possible. I then irrigated all incision sites throughout both legs with antibiotic solution. We gained good hemostasis on left fibula and over all of the arteries and anastomosis. We closed the left groin incision with 2 layers of 2-0 Vicryl suture and the skin with running 4-0 Vicryl subcuticular suture. We closed the right medial calf incision with 2 layers of 2-0 Vicryl suture and the skin with running 4-0 Vicryl subcuticular suture. We closed the right ankle incisions with running 3-0 Vicryl suture in the subcutaneous tissue level and the skin with running 4-0 Vicryl suture. Dermabond was placed on the right leg incisions. In the left groin, a Prevena VAC was left on the surface. At the end of the case, her right foot did not have dopplerable flow, but had good pink color and capillary refill. Her left BKA stump was very pink and warm. She will be monitored following surgery. ESTIMATED BLOOD LOSS: 200 mL. SPECIMENS REMOVED: arterial thrombus MD KAELYN Justice / JARRET /[id number] cc: - Kim Mccarthy MD * Case Mgmt DC Plan - Vy Guillen - 08/09/2018 4:22 PM CDT Case Management Admission Assessment NAME:Betina Baron :1969 AGE: 48 y.o. ADMISSION DATE: 08/09/2018 DAYS ADMITTED: LOS: 0 days Todays Date: 08/09/2018 Source of Information: Pt and EMR Plan Plan: CM Assessment, Discharge Planning for Home Anticipated, Assist PRN with SW /NC Services SW referred pt to financial counseling to assess Medicaid status. Pt interested in mental health resources in [facility] to f/u. Pt ex- to transport at d/c, but will likely need gas card. Robby works during the day and driving to Tuesday-Tuesday. Pt reports she did not f/u with [facility] and was not regularly taking her medication or having her INRs checked. Patient Address/Phone [address] [place] [phone] (home) Emergency Contact Extended Emergency Contact Information Primary Emergency Contact: Kervin Baronsonia Richardson [facility] Relation: Spouse Secondary Emergency Contact: Margie Baron [facility] Relation: Daughter Healthcare Directive Transportation Does the patient need discharge transport arranged?: No (Pt may need assistance with a gas card) Transportation Name, Phone and Availability #1: Ex-Robby [phone] Does the patient use Medicaid Transportation?: No Expected Discharge Date Expected Discharge Date: 08/14/18 Living Situation Prior to Admission ? Living Arrangements Type of Residence: Home, independent Living Arrangements: Other (Comment) (Ex-) Bathroom Shower / Tub: Tub/Shower Unit How many levels in the residence?: 1 Can patient live on one level if needed?: Yes Does residence have entry and/or side stairs?: Yes (2) Assistance needed prior to admit or anticipated on discharge: No Can support system provide 24/7 care if needed?: No ? Level of Function Prior level of function: Independent ? Cognitive Abilities Cognitive Abilities: Alert and Oriented, Engages in problem solving and planning , Participates in decision making Financial Resources ? Coverage Primary Insurance: No insurance Secondary Insurance: No insurance Additional Coverage: None ? Source of Income Source Of Income: SSDI ? Financial Assistance Needed? Pt referred to [facility] Psychosocial Needs ? Mental Health Mental Health History: No ? Substance Use History Substance Use History Screen: Yes Comment: Pt with polysubstance abuse, noted meth use. Pt reports she has had treatment in [place], [place]. ? Other None Current/Previous Services ? PCP Dave Lorenzana, , ? Pharmacy [facility] #[id number] [place], [place] - [address] [facility] [address] ? Durable Medical Equipment Durable Medical Equipment at home: Wheelchair (manual) ? Home Health Receiving home health: In the past Agency name: Pt could not recall, it was in [place] ? Hemodialysis or Peritoneal Dialysis Undergoing hemodialysis or peritoneal dialysis: No ? Tube/Enteral Feeds Receive tube/enteral feeds: No ? Infusion Receive infusions: No ? Private Duty Private duty help used: No ? Home and Community Based Services Home and community based services: No ? Dain Sena: N/A ? Hospice Hospice: No ? Outpatient Therapy PT: No OT: No ANDROID SOFTWARE ENGINEER: No ? Longterm Facility/Fdc SNF: No NH: No ? Inpatient Rehab IPR: No ? Long-Term Acute Care Hospital LTACH: No ? Acute Hospital Stay Acute Hospital Stay: In the past Was patient's stay within the last 30 days?: No When did patient receive care?: March 2018 Name of hospital: [facility] Vy Guillen [facility] [phone] * Procedures (Immed Post or Bedside) - Kim Mccarthy MD - 08/09/2018 12:26 PM CDT Brief Operative Note Name: Betina Baron is a 48 y.o. 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 Thrombectomy Right popliteal. 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 Patent right peroneal artery. Estimated Blood Loss: 200 ml Specimen(s) Removed/Disposition: arterial thrombus Complications: None Implants: None Drains: None Disposition: PACU - stable Dani Juárez MD Pager * Care Coordination-Inpatient - Francisco Bravo DO - 08/08/2018 10:59 PM CDT Internal Medicine Transfer Acceptance Note EMTALA transfer Requesting Facility: [facility] Reason for Transfer: Patient is a 48-year-old female past medical history of uncontrolled diabetes with recurrent episodes of DKA. She was apparently admitted at the outside hospital and discharged just yesterday with DKA and she returns to the ED on with blood glucose in 800s reportedly nightly and noncompliant on medications. Also facility did not feel comfortable admitting the patient this time because they ordered a barnes CT scan of the chest abdomen pelvis given her history of LV thrombus. CT did demonstrate the LV thrombus that is known also demonstrated multiple different areas of what appears to be embolic clot to the splenic artery with splenic infarct, as well as to the lower extremity arteries to include multiple areas of the femoral artery. There is no report of an ischemic limb on physical exam. The patient apparently has a history of a BKA at some point. Outside facility did start heparin drip with bolus, gave 30 units of insulin, 2 L of IV fluid, 2 g Rocephin empirically. She was noted to have a lactate of 2.5. She being transferred to telemetry bed which made further management of DKA, heparin gtt and review or the CT images and vascular surgery consultation. Please note that all information documented above was per report from triage nurse and/or the requesting provider. Review of the objective data is warranted for verification upon patient arrival. Francisco Bravo DO Internal Medicine Pager [phone] in this encounter Plan of Treatment Name Priority Associated Diagnoses Date/Time DELIVER & TRANSFUSE RED BLOOD CELLS STAT 08/09/2018 9:31 AM CDT (INTRAOP ONLY) TRANSFUSE RBC'S NON-BLEEDING PT Routine 08/15/2018 1:15 AM CDT TRANSFUSE RBC'S NON-BLEEDING PT Routine 08/15/2018 1:15 AM CDT TRANSFUSE RBC'S NON-BLEEDING PT Routine 08/18/2018 2:26 AM CDT TRANSFUSE RBC'S NON-BLEEDING PT Routine 08/19/2018 10:34 AM CDT TRANSFUSE RBC'S NON-BLEEDING PT Routine 08/21/2018 6:37 AM CDT as of this encounter Procedures Procedure Name [...] ECG 12-LEAD Routine 08/09/2018 4:39 PM CDT CBC AND DIFF Routine 08/09/2018 Results for this 3:00 PM CDT procedure are in the results section. PHOSPHORUS Routine 08/09/2018 Results for this 3:00 [...] CELLS (INTRAOP 9:31 AM CDT ONLY) POC BLOOD GAS ARTERIAL 08/09/2018 Results for [...] the results section. PROTIME INR (PT) STAT 08/09/2018 Results for this 8:10 AM CDT procedure are in the results section. BLOOD TYPE CONFIRMATION - 08/09/2018 Results for this ORDER ONLY IF REQUESTED 8:10 AM CDT procedure are in the BY LAB results section. THROMBECTOMY ARTERIAL/ 08/09/2018 LV (left ventricular) VENOUS GRAFT 8:00 AM CDT mural thrombus without ID CTA ABD AORTA & SREEDHAR RUN STAT [...] CDT procedure are in the results section. in this encounter Results * ECG-SCAN (08/30/2018 5:47 PM) Narrative Performed At Ordered by an unspecified provider. * TELEMETRY STRIPS-SCAN (08/24/2018 3:38 PM) Narrative Performed At Ordered by an unspecified provider. * TELEMETRY STRIPS-SCAN (08/24/2018 3:38 PM) Narrative Performed At Ordered by an unspecified provider. * POC GLUCOSE (08/22/2018 4:52 PM) Glucose, POC 253 (H) 70 - 100 MG/DL MAIN LAB Performing Organization Address City/State/Zipcode Phone Number [facility] [address] [place] [address] * CBC (08/22/2018 12:03 PM) White Blood Cells 29.1 (H) 4.5 - 11.0 K/UL [facility] RBC 2.72 (L) 4.0 - 5.0 M/UL [facility] Hemoglobin 7.9 (L) 12.0 - 15.0 GM/DL [facility]IN [facility] Hematocrit 24.0 (L) 36 - 45 % [facility] MCV 88.4 80 - 100 FL [facility] MAIN [facility] MCH 29.2 26 - 34 PG [facility]IN [facility] MCHC 33.0 32.0 - 36.0 G/DL [facility] RDW 18.2 (H) 11 - 15 % [facility] Platelet Count 849 (H) 150 - 400 K/UL [facility] MPV 7.4 7 - 11 FL [facility]IN [facility] Specimen Blood Performing Organization Address [facility] Phone Number MAIN LAB [address] [phone] * POC GLUCOSE (08/22/2018 11:43 AM) Glucose, POC 137 (H) 70 - 100 MG/DL [facility]IN [facility] Performing Organization Address [facility] Phone Number MAIN LAB [address] [phone] * TRANSFUSE RBC'S NON-BLEEDING PT (08/22/2018 9:19 AM) * ECG-SCAN (08/22/2018 8:25 AM) Narrative Performed At Ordered by an unspecified provider. * POC GLUCOSE (08/22/2018 6:56 AM) Glucose, POC 303 (H) 70 - 100 MG/DL [facility]IN [facility] Performing Organization Address [facility] Phone Number MAIN LAB [address] [place] [address] * POC GLUCOSE (08/22/2018 5:59 AM) Glucose, POC 289 (H) 70 - 100 MG/DL [facility]IN [facility] Performing Organization Address [facility] Phone Number MAIN LAB [address] [place] [address] * CBC AND DIFF (08/22/2018 3:25 AM) White Blood Cells 26.0 (H) 4.5 - 11.0 K/UL [facility]IN [facility] RBC 2.25 (L) 4.0 - 5.0 M/UL [facility] Hemoglobin 6.8 (L) 12.0 - 15.0 GM/DL [facility]IN [facility] Hematocrit 20.4 (L) 36 - 45 % [facility] MA[facility] MCV 90.6 80 - 100 FL [facility] MAIN [facility] MCH 30.1 26 - 34 PG MAIN LAB MCHC 33.2 32.0 - 36.0 [...] Organization Address City/State/Zipcode Phone Number MAIN LAB [address] [place] [address] * COMPREHENSIVE METABOLIC PANEL (08/22/2018 3:25 AM) Sodium 131 (L) 137 - 147 MMOL/L [...] for questions. Specimen Blood Performing Organization Address City/[facility] Phone Number MAIN LAB [address] [place] [address] * POC GLUCOSE (08/21/2018 9:54 PM) Glucose, POC 214 (H) 70 - 100 MG/DL [facility]IN [facility] Performing Organization Address [facility] Phone Number [facility] [address] [place] [address] * POC GLUCOSE (08/21/2018 6:57 PM) Glucose, POC 208 (H) 70 - 100 MG/DL [facility]IN [facility] Performing Organization Address [facility] Phone Number [facility] [address] [place] [address] * POC GLUCOSE (08/21/2018 12:18 PM) Glucose, POC 169 (H) 70 - 100 MG/DL [facility] Performing Organization Address [facility] Phone Number MAIN LAB [address] [place] [address] * CBC (08/21/2018 10:19 AM) White Blood Cells 27.0 (H) 4.5 - 11.0 K/UL MAIN LAB RBC 2.63 (L) 4.0 - 5.0 M/UL MAIN LAB Hemoglobin 7.8 (L) 12.0 - 15.0 GM/DL MAIN LAB Hematocrit 23.4 (L) 36 - 45 % [facility] MAIN [facility] MCV 89.0 80 - 100 FL MAIN LAB MCH 29.6 26 - 34 PG MAIN LAB MCHC 33.3 32.0 - 36.0 G/DL MAIN LAB RDW 16.5 (H) 11 - 15 % MAIN LAB Platelet Count 655 (H) 150 - 400 K/UL MAIN LAB MPV 8.0 7 - 11 FL MAIN LAB Specimen Blood Performing Organization Address [facility] Phone Number MAIN LAB [address] [phone] * POC GLUCOSE (08/21/2018 7:20 AM) Glucose, POC 275 (H) 70 - 100 MG/DL [facility]IN [facility] Performing Organization Address [facility]/Zipcode Phone Number [facility] [address] [place] [address] * TYPE & CROSSMATCH (08/21/2018 5:45 AM) Units Ordered 3 [facility] MAIN [facility] Crossmatch Expires 08/24/2018 [facility] Record Check FOUND [facility] ABO/RH(D) A NEG [facility] Antibody Screen NEG [facility] Electronic Crossmatch YES [facility] Unit Number [id number] [facility] Blood Component Type RBC,ADSOL,LEUKO REDUCED [facility] Unit Division 0 [facility]IN [facility] Status OF Unit TRANSFUSED [facility] Transfusion Status OK TO TRANSFUSE [facility]IN [facility] Crossmatch Result COMPATIBLE,ELECTRONIC MAIN LAB Unit Number [id number] MAIN LAB Blood Component Type RBC,ADSOL,LEUKO REDUCED [facility] Unit Division 0 [facility] Status OF Unit TRANSFUSED [facility] Transfusion Status OK TO TRANSFUSE [facility]IN [facility] Crossmatch Result COMPATIBLE,ELECTRONIC MAIN LAB Specimen Blood Performing Organization Address [facility] Phone Number [facility] [address] [place] [address] * CBC AND DIFF (08/21/2018 4:52 AM) White Blood Cells 21.3 (H) 4.5 - 11.0 K/UL MAIN LAB RBC 2.03 (L) 4.0 - 5.0 M/UL MAIN LAB Hemoglobin 6.0 (L) 12.0 - 15.0 GM/DL [facility] MAIN [facility] Hematocrit 18.4 (L) 36 - 45 % [facility] MAIN [facility] MCV 90.7 80 - 100 FL [facility] MAIN [facility] MCH 29.5 26 - 34 PG MAIN LAB MCHC 32.6 32.0 - 36.0 G/DL MAIN LAB RDW 18.1 (H) 11 - 15 % [facility] MAIN [facility] Platelet Count 544 (H) 150 - 400 K/UL [facility]IN [facility] MPV 7.9 7 - 11 FL MAIN LAB Neutrophils 86 (H) 41 - 77 % [facility] Lymphocytes 7 (L) 24 - 44 % [facility] Monocytes 2 (L) 4 - 12 % [facility] Eosinophils 3 0 - 5 % [facility] Basophils 2 0 - 2 % [facility] Absolute Neutrophil Count 18.30 (H) 1.8 - 7.0 K/UL [facility]IN [facility] Absolute Lymph Count 1.40 1.0 - 4.8 K/UL [facility] Absolute Monocyte Count 0.50 0 - 0.80 K/UL [facility] Absolute Eosinophil Count 0.60 (H) 0 - 0.45 K/UL [facility] Absolute Basophil Count 0.40 (H) 0 - 0.20 K/UL [facility]IN [facility] Specimen Blood Performing Organization Address City/[facility] Phone Number [facility] [address] [place] [address] * COMPREHENSIVE METABOLIC PANEL (08/21/2018 4:22 AM) Sodium 129 (L) 137 - 147 MMOL/L [facility] Potassium 4.9 3.5 - 5.1 MMOL/L [facility] Chloride 99 98 - 110 MMOL/L [facility] Glucose 229 (H) 70 - 100 MG/DL [facility] Blood Urea Nitrogen 20 7 - 25 MG/DL [facility] Creatinine 0.77 0.4 - 1.00 MG/DL [facility] Calcium 8.3 (L) 8.5 - 10.6 MG/DL [facility] Total Protein 5.0 (L) 6.0 - 8.0 G/DL [facility] Total Bilirubin 0.2 (L) 0.3 - 1.2 MG/DL [facility] Albumin 2.5 (L) 3.5 - 5.0 G/DL [facility] Alk Phosphatase 64 25 - 110 U/L [facility]IN [facility] AST (SGOT) 12 7 - 40 U/L [facility] CO2 25 21 - 30 MMOL/L [facility] ALT (SGPT) 6 (L) 7 - 56 U/L [facility]IN [facility] [...] Blood Performing Organization Address City/State/Zipcode Phone Number [facility] [address] [place] [address] * POC GLUCOSE (08/20/2018 8:32 PM) Glucose, POC 279 (H) 70 - 100 MG/DL [facility]IN [facility] Performing Organization Address [facility] Phone Number [facility] [address] [place] [address] * POC GLUCOSE (08/20/2018 4:50 PM) Glucose, POC 100 70 - 100 MG/DL [facility] Performing Organization Address [facility] Phone Number [facility] [address] [phone] * BASIC METABOLIC PANEL (08/20/2018 4:48 PM) Sodium 136 (L) 137 - 147 MMOL/L [facility] Potassium 4.6 3.5 - 5.1 [...] for questions. Specimen Blood Performing Organization Address [facility] Phone Number [facility] [address] [place] [address] * POC GLUCOSE (08/20/2018 11:19 AM) Glucose, POC 125 (H) 70 - 100 MG/DL [facility] Performing Organization Address [facility] Phone Number [facility] [address] [place] [address] * POC GLUCOSE (08/20/2018 7:25 AM) Glucose, POC 136 (H) 70 - 100 MG/DL [facility] Performing Organization Address [facility] Phone Number MAIN LAB [address] [place] [address] * CBC AND DIFF (08/20/2018 3:24 AM) White Blood Cells 18.0 (H) 4.5 - 11.0 K/UL [facility] RBC 2.67 (L) 4.0 - 5.0 M/UL [facility] Hemoglobin 7.8 (L) 12.0 - 15.0 GM/DL [facility] Hematocrit 23.4 (L) 36 - 45 % [facility] MCV 87.4 80 - 100 FL [facility] MCH 29.2 26 - 34 PG [facility] MCHC 33.4 32.0 - 36.0 G/DL [facility] RDW 17.1 (H) 11 - 15 % [facility] Platelet Count 425 (H) 150 - 400 K/UL [facility] MPV 8.6 7 - 11 FL [facility] Neutrophils 79 (H) 41 - 77 % [facility] Lymphocytes 12 (L) 24 - 44 % [facility] Monocytes 2 (L) 4 - 12 % [facility] Eosinophils 6 (H) 0 - 5 % [facility] Basophils 1 0 - 2 % [facility] Absolute Neutrophil Count 14.40 (H) 1.8 - 7.0 K/UL [facility] Absolute Lymph Count 2.10 1.0 - 4.8 K/UL [facility] Absolute Monocyte Count 0.40 0 - 0.80 K/UL [facility] Absolute Eosinophil Count 1.00 (H) 0 - 0.45 K/UL [facility] Absolute Basophil Count 0.10 0 - 0.20 K/UL [facility] Specimen Blood Performing Organization Address [facility] Phone Number MAIN LAB [address] [place] [address] * COMPREHENSIVE METABOLIC PANEL (08/20/2018 3:24 AM) Sodium 133 (L) 137 - 147 MMOL/L [facility] Potassium 5.7 (H) 3.5 - 5.1 MMOL/L [facility] Chloride 103 98 - 110 MMOL/L [facility] Glucose 157 (H) 70 - 100 MG/DL [facility] Blood Urea Nitrogen 18 7 - 25 MG/DL [facility] Creatinine 0.78 0.4 - 1.00 MG/DL [facility] Calcium 8.5 8.5 - 10.6 MG/DL [facility] Total Protein 5.4 (L) 6.0 - 8.0 G/DL [facility] Total Bilirubin 0.3 0.3 - 1.2 MG/DL [facility] Albumin 2.7 (L) 3.5 - 5.0 G/DL [facility] Alk Phosphatase 71 25 - 110 U/L [facility] AST (SGOT) 22 7 - 40 U/L [facility] CO2 25 21 - 30 MMOL/L [facility] ALT (SGPT) 10 7 - 56 U/L [facility]IN [facility] [...] for questions. Specimen Blood Performing Organization Address City/[facility]/Zipcode Phone Number [facility] [address] [place] [address] * CBC (08/19/2018 9:50 PM) White Blood Cells 16.5 (H) 4.5 - 11.0 K/UL [facility] RBC 2.57 (L) 4.0 - 5.0 M/UL [facility] Hemoglobin 7.6 (L) 12.0 - 15.0 GM/DL [facility] Hematocrit 22.2 (L) 36 - 45 % MAIN LAB MCV 86.6 80 - 100 FL MAIN LAB MCH 29.4 26 - 34 PG [facility] MCHC 34.0 32.0 - 36.0 G/DL [facility] RDW 17.0 (H) 11 - 15 % MAIN LAB Platelet Count 404 (H) 150 - 400 K/UL [facility] MPV 8.6 7 - 11 FL [facility] Specimen Blood Performing Organization Address City/[facility]/Zipcode Phone Number [facility] [address] [place] [address] * POC GLUCOSE (08/19/2018 9:46 PM) Glucose, POC 143 (H) 70 - 100 MG/DL [facility] Performing Organization Address City/[facility] Phone Number [facility] [address] [place] [address] * POC GLUCOSE (08/19/2018 8:21 PM) Glucose, POC 116 (H) 70 - 100 MG/DL [facility] Performing Organization Address City/[facility] Phone Number [facility] [address] [place] [address] * POC GLUCOSE (08/19/2018 5:22 PM) Glucose, POC 186 (H) 70 - 100 MG/DL [facility] Performing Organization Address City/[facility] Phone Number [facility] [address] [place] [address] * CBC (08/19/2018 3:20 PM) White Blood Cells 20.9 (H) 4.5 - 11.0 K/UL [facility] RBC 2.53 (L) 4.0 - 5.0 M/UL [facility] Hemoglobin 7.5 (L) 12.0 - 15.0 GM/DL [facility] Hematocrit 22.9 (L) 36 - 45 % [facility] MCV 90.2 80 - 100 FL [facility] MCH 29.7 26 - 34 PG MAIN LAB MCHC 32.9 32.0 - 36.0 G/DL MAIN LAB RDW 16.7 (H) 11 - 15 % [facility] Platelet Count 388 150 - 400 K/UL [facility] MPV 8.7 7 - 11 FL MAIN LAB Specimen Blood Performing Organization Address [facility] Phone Number [facility] [address] [place] [address] * POC GLUCOSE (08/19/2018 11:47 AM) Glucose, POC 140 (H) 70 - 100 MG/DL [facility] Performing Organization Address City/[facility] Phone Number [facility] [address] [place] [address] * POC GLUCOSE (08/19/2018 7:28 AM) Glucose, POC 341 (H) 70 - 100 MG/DL [facility] Performing Organization Address City/[facility] Phone Number [facility] [address] [place] [address] * CBC (08/19/2018 5:30 AM) White Blood Cells 20.5 (H) 4.5 - 11.0 K/UL [facility] RBC 2.25 (L) 4.0 - 5.0 M/UL [facility] Hemoglobin 6.5 (L) 12.0 - 15.0 GM/DL [facility] Hematocrit 19.2 (L) 36 - 45 % [facility] MCV 85.3 80 - 100 FL [facility] MCH 28.8 26 - 34 PG [facility] MCHC 33.8 32.0 - 36.0 G/DL [facility] RDW 17.6 (H) 11 - 15 % [facility] Platelet Count 286 150 - 400 K/UL [facility] MPV 9.0 7 - 11 FL [facility] Specimen Blood Performing Organization Address City/State/Zipcode Phone Number [facility] [address] [place] [address] * COMPREHENSIVE METABOLIC PANEL (08/19/2018 5:30 AM) Sodium 129 (L) 137 - 147 MMOL/L [facility] Potassium 4.6 3.5 - 5.1 MMOL/L [facility] Chloride 100 98 - 110 MMOL/L [facility] Glucose 319 (H) 70 - 100 MG/DL [facility] Blood Urea Nitrogen 20 7 - 25 MG/DL [facility] Creatinine 0.88 0.4 - 1.00 MG/DL [facility] Calcium 7.8 (L) 8.5 - 10.6 MG/DL [facility] Total Protein 4.5 (L) 6.0 - 8.0 G/DL [facility] Total Bilirubin 0.2 (L) 0.3 - 1.2 MG/DL [facility] Albumin 2.3 (L) 3.5 - 5.0 G/DL [facility] Alk Phosphatase 64 25 - 110 U/L [facility] AST (SGOT) 11 7 - 40 U/L [facility] CO2 22 21 - 30 MMOL/L [facility] ALT (SGPT) <3 (L) 7 - 56 U/L [facility] Anion Gap 7 3 - 12 [facility] eGFR [...] for questions. Specimen Blood Performing Organization Address City/[facility]/Zipcode Phone Number MAIN LAB [address] [place] [address] * POC GLUCOSE (08/18/2018 8:44 PM) Glucose, POC 266 (H) 70 - 100 MG/DL [facility] Performing Organization Address [facility] Phone Number [facility] LAB [address] [place] [phone] * CBC (08/18/2018 8:30 PM) White Blood Cells 23.9 (H) 4.5 - 11.0 K/UL [facility] RBC 2.76 (L) 4.0 - 5.0 M/UL [facility] Hemoglobin 7.9 (L) 12.0 - 15.0 GM/DL [facility] Hematocrit 24.2 (L) 36 - 45 % [facility] MCV 87.9 80 - 100 FL [facility] MCH 28.5 26 - 34 PG [facility] MCHC 32.4 32.0 - 36.0 G/DL [facility] RDW 18.0 (H) 11 - 15 % [facility] Platelet Count 274 150 - 400 K/UL [facility] MPV 8.9 7 - 11 FL [facility]IN [facility] Specimen Blood Performing Organization Address [facility] Phone Number MAIN LAB [address] [place] [phone] * IR BODY EMBOLIZATION (08/18/2018 4:50 PM) Impressions Performed At Successful uterine artery embolization via right femoral access as described. [facility] RAD RESULTS Patient will be followed for symptomatic relief. Approved by Hugh Sim MD on 08/18/2018 6:21 PM IChapito M.D., the attending radiologist, was present for [...] was withdrawn and exchanged for a 6 Bulgarian sheath. The sheath was attached to a [...] adequate positioning of the microcatheter for embolization. Whitfield embolization was then performed through the microcatheter using 100-300 um embospheres. Postembolization digital subtraction angiogram was performed. This demonstrated adequate embolization of distal left uterine arterial branches, with slowed though persistent forward flow in the remaining uterine arterial branches. The microcatheter was then removed and the AMELIE 1 catheter was removed over a Bentson wire. Next, a 5 Bulgarian Cobra catheter was used to select the [...] was withdrawn and exchanged for a 6 Bulgarian sheath. The sheath was attached to a [...] adequate positioning of the microcatheter for embolization. Whitfield embolization was then performed through the microcatheter using 100-300 um embospheres. Postembolization digital subtraction angiogram was performed. This demonstrated adequate embolization of distal left uterine arterial branches, with slowed though persistent forward flow in the remaining uterine arterial branches. The microcatheter was then removed and the AMELIE 1 catheter was removed over a Bentson wire. Next, a 5 Bulgarian Cobra catheter was used to select the [...] on 08/18/2018 5:58 PM. Performing Organization Address City/[facility] Phone Number RAD RESULTS * TRANSFUSE RBC'S BLEEDING PT OR EXCHANGE TRANSFUSION (08/18/2018 2:52 PM) * TRANSFUSE RBC'S BLEEDING PT OR EXCHANGE TRANSFUSION (08/18/2018 2:52 PM) * POC GLUCOSE (08/18/2018 12:24 PM) Glucose, POC 165 (H) 70 - 100 MG/DL MAIN LAB Performing Organization Address City/[facility]/Zipcode Phone Number MAIN LAB [address] [place] [address] * POC GLUCOSE (08/18/2018 8:37 AM) Glucose, POC 174 (H) 70 - 100 MG/DL MAIN LAB Performing Organization Address [facility] Phone Number [facility] [address] [place] [address] * CBC (08/18/2018 8:20 AM) White Blood Cells 15.2 (H) 4.5 - 11.0 K/UL [facility] RBC 2.34 (L) 4.0 - 5.0 M/UL [facility] Hemoglobin 6.7 (L) 12.0 - 15.0 GM/DL [facility] Hematocrit 20.4 (L) 36 - 45 % [facility] MCV 87.4 80 - 100 FL [facility] MCH 28.9 26 - 34 PG [facility] MCHC 33.0 32.0 - 36.0 G/DL [facility] RDW 19.0 (H) 11 - 15 % [facility] Platelet Count 201 150 - 400 K/UL [facility] MPV 8.6 7 - 11 FL [facility] Specimen Blood Performing Organization Address [facility] Phone Number [facility] [address] [place] [address] * CBC (08/18/2018 12:55 AM) White Blood Cells 14.0 (H) 4.5 - 11.0 K/UL [facility] RBC 2.22 (L) 4.0 - 5.0 M/UL [facility] Hemoglobin 6.1 (L) 12.0 - 15.0 GM/DL [facility] Hematocrit 18.8 (L) 36 - 45 % [facility] MCV 84.8 80 - 100 FL [facility] MCH 27.4 26 - 34 PG [facility] MCHC 32.3 32.0 - 36.0 G/DL [facility] RDW 22.4 (H) 11 - 15 % [facility] Platelet Count 201 150 - 400 K/UL [facility] MPV 8.7 7 - 11 FL [facility] Specimen Blood Performing Organization Address City/[facility] Phone Number [facility] [address] [place] [phone] * COMPREHENSIVE METABOLIC PANEL (08/18/2018 12:55 AM) Sodium 131 (L) 137 - 147 MMOL/L [facility] Potassium 4.2 3.5 - 5.1 MMOL/L [facility] Chloride 101 98 - 110 MMOL/L [facility] Glucose 270 (H) 70 - 100 MG/DL [facility] Blood Urea Nitrogen 17 7 - 25 MG/DL [facility] Creatinine 0.85 0.4 - 1.00 MG/DL [facility] Calcium 8.0 (L) 8.5 - 10.6 MG/DL [facility] Total Protein 4.7 (L) 6.0 - 8.0 G/DL [facility] Total Bilirubin 0.3 0.3 - 1.2 MG/DL [facility] Albumin 2.4 (L) 3.5 - 5.0 G/DL [facility] Alk Phosphatase 71 25 - 110 U/L [facility] AST (SGOT) 12 7 - 40 U/L [facility] CO2 26 21 - 30 MMOL/L [facility] ALT (SGPT) 8 7 - 56 U/L [facility] Anion Gap 4 3 - 12 [facility] eGFR [...] for questions. Specimen Blood Performing Organization Address City/[facility]/Zipcode Phone Number [facility] [address] [place] [phone] * POC GLUCOSE (08/17/2018 8:16 PM) Glucose, POC 121 (H) 70 - 100 MG/DL [facility] Performing Organization Address City/[facility] Phone Number MAIN LAB [address] [place] [address] * POC GLUCOSE (08/17/2018 6:00 PM) Glucose, POC 161 (H) 70 - 100 MG/DL [facility] Performing Organization Address City/[facility]/Zipcode Phone Number MAIN LAB [address] [place] [address] * CBC (08/17/2018 5:22 PM) White Blood Cells 13.8 (H) 4.5 - 11.0 K/UL [facility] RBC 2.69 (L) 4.0 - 5.0 M/UL [facility] Hemoglobin 7.4 (L) 12.0 - 15.0 GM/DL [facility] Hematocrit 22.8 (L) 36 - 45 % [facility] MCV 84.7 80 - 100 FL [facility] MCH 27.5 26 - 34 PG [facility] MCHC 32.5 32.0 - 36.0 G/DL [facility] RDW 21.0 (H) 11 - 15 % [facility] Platelet Count 211 150 - 400 K/UL [facility] MPV 8.7 7 - 11 FL [facility] Specimen Blood Performing Organization Address City/[facility] Phone Number MAIN LAB [address] [place] [address] * ECG-SCAN (08/17/2018 3:15 PM) Narrative Performed At Ordered by an unspecified provider. * TRANSFUSE RBC'S BLEEDING PT OR EXCHANGE TRANSFUSION (08/17/2018 3:06 PM) * TRANSFUSE RBC'S BLEEDING PT OR EXCHANGE TRANSFUSION (08/17/2018 3:06 PM) * CREATINE KINASE-CPK (08/17/2018 2:00 PM) Creatine Kinase 41 21 - 215 U/L MAIN LAB Specimen Blood Performing Organization Address [facility] Phone Number MAIN LAB [address] [place] [address] * POC GLUCOSE (08/17/2018 11:17 AM) Glucose, POC 209 (H) 70 - 100 MG/DL MAIN LAB Performing Organization Address [facility] Phone Number MAIN LAB [address] [place] [address] * PROTIME INR (PT) (08/17/2018 10:34 AM) INR 0.9 0.8 - 1.2 MAIN LAB Specimen Blood Performing Organization Address City/[facility]/Zipcode Phone Number MAIN LAB [address] [place] [address] * FIBRINOGEN (08/17/2018 10:34 AM) Fibrinogen 568 (H) 200 - 400 MG/DL [facility] Specimen Blood Performing Organization Address City/[facility]/Zipcode Phone Number MAIN LAB [address] [place] [address] * CBC (08/17/2018 10:34 AM) White Blood Cells 11.4 (H) 4.5 - 11.0 K/UL [facility] RBC 2.44 (L) 4.0 - 5.0 M/UL [facility] Hemoglobin 6.6 (L) 12.0 - 15.0 GM/DL [facility] Hematocrit 20.5 (L) 36 - 45 % [facility] MCV 84.2 80 - 100 FL [facility] MCH 27.1 26 - 34 PG [facility] MCHC 32.2 32.0 - 36.0 G/DL [facility] RDW 23.1 (H) 11 - 15 % [facility] Platelet Count 193 150 - 400 K/UL [facility] MPV 8.1 7 - 11 FL [facility] Specimen Blood Performing Organization Address [facility] Phone Number MAIN LAB [address] [place] [address] * POC GLUCOSE (08/17/2018 8:14 AM) Glucose, POC 166 (H) 70 - 100 MG/DL [facility] Performing Organization Address [facility] Phone Number MAIN LAB [address] [place] [address] * TRANSFUSE RBC'S NON-BLEEDING PT (08/17/2018 7:15 AM) * TRANSFUSE RBC'S NON-BLEEDING PT (08/17/2018 7:15 AM) * POC GLUCOSE (08/17/2018 6:53 AM) Glucose, POC 187 (H) 70 - 100 MG/DL [facility] Performing Organization Address [facility] Phone Number MAIN LAB [address] [place] [address] * COMPREHENSIVE METABOLIC PANEL (08/17/2018 2:35 AM) Sodium 131 (L) 137 - 147 MMOL/L [facility] Potassium 4.4 3.5 - 5.1 MMOL/L [facility] Chloride 98 98 - 110 MMOL/L [facility] Glucose 132 (H) 70 - 100 MG/DL [facility] Blood Urea Nitrogen 17 7 - 25 MG/DL [facility] Creatinine 0.81 0.4 - 1.00 MG/DL [facility] Calcium 8.2 (L) 8.5 - 10.6 MG/DL [facility] Total Protein 5.2 (L) 6.0 - 8.0 G/DL [facility] Total Bilirubin 0.6 0.3 - 1.2 MG/DL [facility] Albumin 2.6 (L) 3.5 - 5.0 G/DL [facility] Alk Phosphatase 83 25 - 110 U/L [facility] AST (SGOT) 12 7 - 40 U/L [facility] CO2 26 21 - 30 MMOL/L [facility] ALT (SGPT) 12 7 - 56 U/L [facility] Anion Gap 7 3 - 12 [facility] eGFR [...] for questions. Specimen Blood Performing Organization Address City/[facility]/Zipcode Phone Number [facility] [address] [place] [address] * CBC (08/17/2018 2:35 AM) White Blood Cells 11.1 (H) 4.5 - 11.0 K/UL [facility] RBC 2.48 (L) 4.0 - 5.0 M/UL [facility] Hemoglobin 6.6 (L) 12.0 - 15.0 GM/DL [facility] Hematocrit 20.7 (L) 36 - 45 % [facility] MCV 83.3 80 - 100 FL MAIN LAB MCH 26.4 26 - 34 PG [facility] MCHC 31.7 (L) 32.0 - 36.0 G/DL [facility] RDW 25.7 (H) 11 - 15 % MAIN LAB Platelet Count 186 150 - 400 K/UL [facility] MPV 8.4 7 - 11 FL [facility] Specimen Blood Performing Organization Address City/[facility]/Zipcode Phone Number [facility] [address] [place] [address] * TRANSFUSE RBC'S BLEEDING PT OR EXCHANGE TRANSFUSION (08/17/2018 1:47 AM) * TRANSFUSE RBC'S BLEEDING PT OR EXCHANGE TRANSFUSION (08/17/2018 1:47 AM) * POC GLUCOSE (08/16/2018 9:05 PM) Glucose, POC 167 (H) 70 - 100 MG/DL [facility] Performing Organization Address City/State/Zipcode Phone Number [facility] [address] [place] [address] * TYPE & CROSSMATCH (08/16/2018 8:53 PM) Units Ordered 6 [facility] Crossmatch Expires 08/19/2018 [facility] Record Check FOUND [facility] ABO/RH(D) A NEG [facility] Antibody Screen NEG [facility] Electronic Crossmatch YES [facility] Unit Number [id number] [facility] Blood Component Type RBC,ADSOL,LEUKO REDUCED [facility] Unit Division 0 [facility] Status OF Unit TRANSFUSED [facility] Transfusion Status OK TO TRANSFUSE [facility] Crossmatch Result COMPATIBLE,ELECTRONIC [facility] Unit Number [id number] [facility] Blood Component Type RBC,ADSOL,LEUKO REDUCED [facility] Unit Division 0 [facility] Status OF Unit TRANSFUSED [facility] Transfusion Status OK TO TRANSFUSE [facility] Crossmatch Result COMPATIBLE,ELECTRONIC [facility] Unit Number [id number] [facility] Blood Component Type RBC,ADSOL,LEUKO REDUCED,1ST [facility] CONT. Unit Division 0 [facility] Status OF Unit TRANSFUSED [facility] Transfusion Status OK TO TRANSFUSE [facility] Crossmatch Result COMPATIBLE,ELECTRONIC [facility] Unit Number [id number] [facility] Blood Component Type RBC,ADSOL,LEUKO REDUCED [facility] Unit Division 0 [facility] Status OF Unit TRANSFUSED [facility] Transfusion Status OK TO TRANSFUSE [facility] Crossmatch Result COMPATIBLE,ELECTRONIC [facility] Unit Number [id number] [facility] Blood Component Type RBC,ADSOL,LEUKO REDUCED,1ST [facility] CONT. Unit Division 0 [facility] Status OF Unit TRANSFUSED [facility] Transfusion Status OK TO TRANSFUSE [facility] Crossmatch Result COMPATIBLE,ELECTRONIC [facility] Unit Number [id number] [facility] Blood Component Type RBC,ADSOL,LEUKO REDUCED [facility] Unit Division 0 [facility] Status OF Unit TRANSFUSED [facility] Transfusion Status OK TO TRANSFUSE [facility] Crossmatch Result COMPATIBLE,ELECTRONIC [facility] Specimen Blood Performing Organization Address [facility] Phone Number [facility] [address] [place] [address] * POC GLUCOSE (08/16/2018 5:20 PM) Glucose, POC 163 (H) 70 - 100 MG/DL [facility] Performing Organization Address [facility] Phone Number [facility] [address] [place] [address] * CBC (08/16/2018 3:50 PM) White Blood Cells 9.5 4.5 - 11.0 K/UL [facility] RBC 2.49 (L) 4.0 - 5.0 M/UL [facility] Hemoglobin 6.5 (L) 12.0 - 15.0 GM/DL [facility] Hematocrit 19.8 (L) 36 - 45 % [facility] MCV 79.7 (L) 80 - 100 FL [facility] MCH 26.0 26 - 34 PG [facility] MCHC 32.6 32.0 - 36.0 G/DL [facility] RDW 27.1 (H) 11 - 15 % [facility] Platelet Count 203 150 - 400 K/UL [facility] MPV 7.8 7 - 11 FL [facility] Specimen Blood Performing Organization Address [facility] Phone Number MAIN LAB [address] [place] [address] * POC GLUCOSE (08/16/2018 11:37 AM) Glucose, POC 272 (H) 70 - 100 MG/DL [facility] Performing Organization Address [facility] Phone Number [facility] [address] [place] [address] * CBC (08/16/2018 8:10 AM) White Blood Cells 9.5 4.5 - 11.0 K/UL [facility] RBC 2.92 (L) 4.0 - 5.0 M/UL [facility] Hemoglobin 7.5 (L) 12.0 - 15.0 GM/DL [facility] Hematocrit 23.7 (L) 36 - 45 % [facility] MCV 81.1 80 - 100 FL [facility] MCH 25.5 (L) 26 - 34 PG [facility] MCHC 31.5 (L) 32.0 - 36.0 G/DL [facility] RDW 26.2 (H) 11 - 15 % [facility] Platelet Count 206 150 - 400 K/UL [facility] MPV 7.6 7 - 11 FL [facility] Specimen Blood Performing Organization Address [facility] Phone Number [facility] [address] [place] [address] * POC GLUCOSE (08/16/2018 7:05 AM) Glucose, POC 166 (H) 70 - 100 MG/DL [facility] Performing Organization Address [facility] Phone Number MAIN LAB [address] [place] [address] * COMPREHENSIVE METABOLIC PANEL (08/16/2018 5:35 AM) Sodium 133 (L) 137 - 147 MMOL/L [facility] Potassium 4.6 3.5 - 5.1 MMOL/L [facility] Chloride 101 98 - 110 MMOL/L [facility] Glucose 163 (H) 70 - 100 MG/DL [facility] Blood Urea Nitrogen 18 7 - 25 MG/DL [facility] Creatinine 0.78 0.4 - 1.00 MG/DL [facility] Calcium 8.4 (L) 8.5 - 10.6 MG/DL [facility] Total Protein 5.1 (L) 6.0 - 8.0 G/DL [facility] Total Bilirubin 0.4 0.3 - 1.2 MG/DL [facility] Albumin 2.4 (L) 3.5 - 5.0 G/DL [facility] Alk Phosphatase 88 25 - 110 U/L [facility] AST (SGOT) 13 7 - 40 U/L [facility] CO2 27 21 - 30 MMOL/L [facility] ALT (SGPT) 11 7 - 56 U/L [facility] [...] for questions. Specimen Blood Performing Organization Address [facility] Phone Number MAIN LAB [address] [place] [address] * TRANSFUSE RBC'S NON-BLEEDING PT (08/16/2018 4:39 AM) * TRANSFUSE RBC'S NON-BLEEDING PT (08/16/2018 4:39 AM) * CBC (08/15/2018 11:30 PM) White Blood Cells 9.6 4.5 - 11.0 K/UL [facility] RBC 2.63 (L) 4.0 - 5.0 M/UL [facility] Hemoglobin 6.6 (L) 12.0 - 15.0 GM/DL [facility] Hematocrit 20.5 (L) 36 - 45 % [facility] MCV 78.1 (L) 80 - 100 FL [facility] MCH 24.9 (L) 26 - 34 PG [facility] MCHC 31.9 (L) 32.0 - 36.0 G/DL [facility] RDW 28.6 (H) 11 - 15 % [facility] Platelet Count 210 150 - 400 K/UL [facility] MPV 7.7 7 - 11 FL [facility] Specimen Blood Performing Organization Address [facility] Phone Number MAIN LAB [address] [place] [address] * POC GLUCOSE (08/15/2018 9:08 PM) Glucose, POC 155 (H) 70 - 100 MG/DL [facility] Performing Organization Address [facility] Phone Number MAIN LAB [address] [place] [address] * TRANSFUSE RBC'S BLEEDING PT OR EXCHANGE TRANSFUSION (08/15/2018 6:52 PM) * CBC (08/15/2018 6:46 PM) White Blood Cells 9.6 4.5 - 11.0 K/UL [facility] RBC 3.41 (L) 4.0 - 5.0 M/UL [facility] Hemoglobin 8.6 (L) 12.0 - 15.0 GM/DL [facility] Hematocrit 26.9 (L) 36 - 45 % [facility] MCV 78.8 (L) 80 - 100 FL [facility] MCH 25.2 (L) 26 - 34 PG [facility] MCHC 31.9 (L) 32.0 - 36.0 G/DL [facility] RDW 28.2 (H) 11 - 15 % [facility] Platelet Count 204 150 - 400 K/UL [facility] MPV 8.4 7 - 11 FL [facility] Specimen Blood Performing Organization Address City/[facility] Phone Number MA[facility] LAB [address] [place] [address] * FIBRINOGEN (08/15/2018 6:46 PM) Fibrinogen 752 (H) 200 - 400 MG/DL MAIN LAB Specimen Blood Performing Organization Address City/[facility] Phone Number [facility] [address] [place] [address] * PROTIME INR (PT) (08/15/2018 6:46 PM) INR 0.9 0.8 - 1.2 MAIN LAB Specimen Blood Performing Organization Address [facility] Phone Number MAIN LAB [address] [place] [address] * POC GLUCOSE (08/15/2018 5:42 PM) Glucose, POC 164 (H) 70 - 100 MG/DL [facility] Performing Organization Address [facility] Phone Number MAIN LAB [address] [place] [address] * TRANSFUSE RBC'S BLEEDING PT OR EXCHANGE TRANSFUSION (08/15/2018 3:45 PM) * POC GLUCOSE (08/15/2018 11:36 AM) Glucose, POC 258 (H) 70 - 100 MG/DL [facility] Performing Organization Address [facility] Phone Number MAIN LAB [address] [place] [address] * POC GLUCOSE (08/15/2018 6:52 AM) Glucose, POC 271 (H) 70 - 100 MG/DL MAIN LAB Performing Organization Address [facility] Phone Number MAIN LAB [address] [place] [address] * CBC (08/15/2018 6:52 AM) White Blood Cells 9.0 4.5 - 11.0 K/UL [facility] RBC 2.75 (L) 4.0 - 5.0 M/UL MAIN LAB Hemoglobin 6.6 (L) 12.0 - 15.0 GM/DL [facility] Hematocrit 20.6 (L) 36 - 45 % [facility] MCV 74.9 (L) 80 - 100 FL [facility] MCH 23.8 (L) 26 - 34 PG [facility] MCHC 31.8 (L) 32.0 - 36.0 G/DL [facility] RDW 31.8 (H) 11 - 15 % [facility] Platelet Count 240 150 - 400 K/UL [facility] MPV 8.5 7 - 11 FL [facility] Specimen Blood Performing Organization Address City/State/[facility] Phone Number [facility] [address] [place] [address] * COMPREHENSIVE METABOLIC PANEL (08/15/2018 6:52 AM) Sodium 130 (L) 137 - 147 MMOL/L [facility] Potassium 4.9 3.5 - 5.1 MMOL/L [facility] Chloride 97 (L) 98 - 110 MMOL/L [facility] Glucose 259 (H) 70 - 100 MG/DL [facility] Blood Urea Nitrogen 21 7 - 25 MG/DL [facility] Creatinine 0.90 0.4 - 1.00 MG/DL [facility] Calcium 8.4 (L) 8.5 - 10.6 MG/DL [facility] Total Protein 5.6 (L) 6.0 - 8.0 G/DL [facility] Total Bilirubin 0.4 0.3 - 1.2 MG/DL [facility] Albumin 2.9 (L) 3.5 - 5.0 G/DL [facility] Alk Phosphatase 119 (H) 25 - 110 U/L [facility] AST (SGOT) 11 7 - 40 U/L [facility] CO2 24 21 - 30 MMOL/L [facility] ALT (SGPT) 8 7 - 56 U/L [facility] Anion Gap 9 3 - 12 [facility] eGFR [...] Address City/State/Zipcode Phone Number MAIN LAB [address] [place] [phone] * CBC (08/14/2018 10:32 PM) White Blood Cells 8.6 4.5 - 11.0 K/UL MAIN LAB RBC 2.78 (L) 4.0 - 5.0 M/UL [facility] Hemoglobin 6.2 (L) 12.0 - 15.0 GM/DL [facility] Hematocrit 19.9 (L) 36 - 45 % [facility] MCV 71.3 (L) 80 - 100 FL [facility] MCH 22.1 (L) 26 - 34 PG [facility] MCHC 31.0 (L) 32.0 - 36.0 G/DL [facility] RDW 32.4 (H) 11 - 15 % [facility] Platelet Count 232 150 - 400 K/UL [facility] MPV 8.6 7 - 11 FL [facility] Specimen Blood Performing Organization Address City/[facility] Phone Number MA[facility] LAB [address] [place] [address] * POC GLUCOSE (08/14/2018 8:48 PM) Glucose, POC 343 (H) 70 - 100 MG/DL MAIN LAB Performing Organization Address City/[facility] Phone Number [facility] [address] [place] [phone] * POC GLUCOSE (08/14/2018 5:21 PM) Glucose, POC 217 (H) 70 - 100 MG/DL MAIN LAB Performing Organization Address City/[facility] Phone Number [facility] [address] [place] [phone] * TRANSESOPHAGEAL ECHOCARDIOGRAM (08/14/2018 3:15 PM) BSA 1.85 m2 OTHER OUTSIDE LAB CV ECHO PV WEEKEND ANCHOR NELLY Callejas OTHER OUTSIDE LAB Cardiology Ultrasound Siemens [id number] OTHER OUTSIDE LAB Machine ECHO EF 35 [...] color flow Doppler exam. Performing Organization Address City/State/Zipcode Phone Number OTHER OUTSIDE LAB * POC GLUCOSE (08/14/2018 11:18 AM) Glucose, POC 129 (H) 70 - 100 MG/DL [facility] Performing Organization Address City/[facility] Phone Number [facility] [address] [place] [address] * POC GLUCOSE (08/14/2018 7:22 AM) Glucose, POC 251 (H) 70 - 100 MG/DL [facility] Performing Organization Address [facility] Phone Number [facility] [address] [place] [address] * COMPREHENSIVE METABOLIC PANEL (08/14/2018 3:29 AM) Sodium 131 (L) 137 - 147 MMOL/L [facility] Potassium 5.1 3.5 - 5.1 MMOL/L [facility] Chloride 95 (L) 98 - 110 MMOL/L [facility] Glucose 230 (H) 70 - 100 MG/DL [facility] Blood Urea Nitrogen 21 7 - 25 MG/DL [facility] Creatinine 0.95 0.4 - 1.00 MG/DL [facility] Calcium 8.5 8.5 - 10.6 MG/DL [facility] Total Protein 5.6 (L) 6.0 - 8.0 G/DL [facility] Total Bilirubin 0.3 0.3 - 1.2 MG/DL [facility] Albumin 2.7 (L) 3.5 - 5.0 G/DL [facility] Alk Phosphatase 159 (H) 25 - 110 U/L [facility] AST (SGOT) 20 7 - 40 U/L [facility] CO2 30 21 - 30 MMOL/L [facility] ALT (SGPT) 17 7 - 56 U/L [facility] Anion Gap 6 3 - 12 [facility] eGFR [...] for questions. Specimen Blood Performing Organization Address [facility] Cent[facility]ode Phone Number [facility] [address] [place] [address] * CBC AND DIFF (08/14/2018 3:29 AM) White Blood Cells 9.6 4.5 - 11.0 K/UL [facility] RBC 3.28 (L) 4.0 - 5.0 M/UL [facility] Hemoglobin 7.2 (L) 12.0 - 15.0 GM/DL [facility] Hematocrit 23.7 (L) 36 - 45 % [facility] MCV 72.2 (L) 80 - 100 FL [facility] MCH 21.8 (L) 26 - 34 PG [facility] MCHC 30.2 (L) 32.0 - 36.0 G/DL [facility] RDW 32.1 (H) 11 - 15 % [facility] Platelet Count 257 150 - 400 K/UL [facility] MPV 8.5 7 - 11 FL [facility] Neutrophils 73 41 - 77 % [facility] Lymphocytes 12 (L) 24 - 44 % [facility] Monocytes 9 4 - 12 % [facility] Eosinophils 5 0 - 5 % [facility] Basophils 1 0 - 2 % [facility] Absolute Neutrophil Count 7.00 1.8 - 7.0 K/UL [facility] Absolute Lymph Count 1.20 1.0 - 4.8 K/UL [facility] Absolute Monocyte Count 0.80 0 - 0.80 K/UL [facility] Absolute Eosinophil Count 0.50 (H) 0 - 0.45 K/UL [facility] Absolute Basophil Count 0.10 0 - 0.20 K/UL [facility] Specimen Blood Performing Organization Address [facility] Cent[facility] Phone Number [facility] [address] [place] [address] * POC GLUCOSE (08/13/2018 8:28 PM) Glucose, POC 132 (H) 70 - 100 MG/DL [facility] Performing Organization Address City/[facility] Center[facility] Phone Number [facility] [address] [place] [address] * CBC (08/13/2018 5:45 PM) White Blood Cells 9.7 4.5 - 11.0 K/UL MAIN LAB RBC 3.72 (L) 4.0 - 5.0 M/UL MAIN LAB Hemoglobin 8.0 (L) 12.0 - 15.0 GM/DL MAIN LAB Hematocrit 26.6 (L) 36 - 45 % MAIN LAB MCV 71.4 (L) 80 - 100 FL MAIN LAB MCH 21.4 (L) 26 - 34 PG MAIN LAB MCHC 29.9 (L) 32.0 - 36.0 G/DL MAIN LAB RDW 32.3 (H) 11 - 15 % MAIN LAB Platelet Count 294 150 - 400 K/UL MAIN LAB MPV 8.6 7 - 11 FL MAIN LAB Specimen Blood Performing Organization Address [facility] Phone Number MAIN LAB [address] [place] [address] * BASIC METABOLIC PANEL (08/13/2018 5:45 PM) Sodium 129 (L) 137 - 147 MMOL/L [facility] Potassium 5.1 3.5 - 5.1 MMOL/L MAIN LAB Chloride 94 (L) 98 - 110 MMOL/L MAIN LAB CO2 28 21 - 30 MMOL/L [facility] Anion Gap 7 3 - 12 [facility] Glucose 278 (H) 70 - 100 MG/DL MAIN LAB Blood Urea Nitrogen 21 7 - 25 MG/DL MAIN LAB Creatinine 1.01 (H) 0.4 - 1.00 MG/DL MAIN LAB Calcium 8.7 8.5 - 10.6 MG/DL MAIN LAB eGFR Non 58 (L) >60 mL/min [facility] Comment: The [...] for questions. Specimen Blood Performing Organization Address City/[facility] Cent[facility] Phone Number [facility] [address] [place] [address] * POC GLUCOSE (08/13/2018 5:31 PM) Glucose, POC 296 (H) 70 - 100 MG/DL [facility] Performing Organization Address City/[facility]/Zipcode Phone Number [facility] [address] [place] [address] * TRANSFUSE RBC'S NON-BLEEDING PT (08/13/2018 2:51 PM) * TRANSFUSE RBC'S NON-BLEEDING PT (08/13/2018 2:51 PM) * POC GLUCOSE (08/13/2018 11:33 AM) Glucose, POC 87 70 - 100 MG/DL [facility] Performing Organization Address City/[facility]/Zipcode Phone Number [facility] [address] [place] [address] * TYPE & CROSSMATCH (08/13/2018 9:15 AM) Units Ordered 5 [facility] Crossmatch Expires 08/16/2018 [facility] Record Check FOUND [facility] ABO/RH(D) A NEG [facility] Antibody Screen NEG [facility] Electronic Crossmatch YES [facility] Unit Number [id number] [facility] Blood Component Type RBC,ADSOL,LEUKO REDUCED [facility] Unit Division 0 [facility] Status OF Unit TRANSFUSED [facility] Transfusion Status OK TO TRANSFUSE [facility] Crossmatch Result COMPATIBLE,ELECTRONIC [facility] Unit Number [id number] [facility] Blood Component Type RBC,ADSOL,LEUKO REDUCED,2ND [facility] CONT. Unit Division 0 [facility] Status OF Unit TRANSFUSED [facility] Transfusion Status OK TO TRANSFUSE [facility] Crossmatch Result COMPATIBLE,ELECTRONIC [facility] Unit Number [id number] [facility] Blood Component Type RBC,ADSOL,LEUKO REDUCED [facility] Unit Division 0 [facility] Status OF Unit TRANSFUSED [facility] Transfusion Status OK TO TRANSFUSE [facility] Crossmatch Result COMPATIBLE,ELECTRONIC [facility] Unit Number [id number] [facility] Blood Component Type RBC,ADSOL,LEUKO REDUCED [facility] Unit Division 0 [facility] Status OF Unit TRANSFUSED [facility] Transfusion Status OK TO TRANSFUSE [facility] Crossmatch Result COMPATIBLE,ELECTRONIC [facility] Unit Number [id number] [facility] Blood Component Type RBC,ADSOL,LEUKO REDUCED,2ND [facility] CONT. Unit Division 0 MAIN LAB Status OF Unit TRANSFUSED MAIN LAB Transfusion Status OK TO TRANSFUSE MAIN LAB Crossmatch Result COMPATIBLE,ELECTRONIC [facility] Specimen Blood Performing Organization Address City/State/Zipcode Phone Number [facility] [address] [place] [address] * COMPREHENSIVE METABOLIC PANEL (08/13/2018 5:15 AM) Sodium 131 (L) 137 - 147 MMOL/L MAIN LAB Potassium 5.8 (H) 3.5 - 5.1 MMOL/L MAIN LAB Chloride 99 98 - 110 MMOL/L [facility] Glucose 199 (H) 70 - 100 MG/DL MAIN LAB Blood Urea Nitrogen 24 7 - 25 MG/DL MAIN LAB Creatinine 0.88 0.4 - 1.00 MG/DL [facility] Calcium 8.4 (L) 8.5 - 10.6 MG/DL MAIN LAB Total Protein 5.8 (L) 6.0 - 8.0 G/DL MAIN LAB Total Bilirubin 0.3 0.3 - 1.2 MG/DL [facility] Albumin 2.6 (L) 3.5 - 5.0 G/DL MAIN LAB Alk Phosphatase 134 (H) 25 - 110 U/L MAIN LAB AST (SGOT) 19 7 - 40 U/L [facility] CO2 30 21 - 30 MMOL/L [facility] ALT (SGPT) 18 7 - 56 U/L [facility] Anion Gap 2 (L) 3 - 12 MAIN LAB eGFR Non >60 >60 mL/min MAIN LAB Comment: The eGFR is not validated for use in drug dosing adjustments.Continue to use estimated creatinine clearance per dosing reference text.Please contact the Clinical Pharmacist for questions. eGFR >60 >60 mL/min [facility] Comment: The eGFR is not validated for use in drug dosing adjustments.Continue to use estimated creatinine clearance per dosing reference text.Please contact the Clinical Pharmacist for questions. Specimen Blood Performing Organization Address City/State/Zipcode Phone Number [facility] [address] [place] [address] * CBC AND DIFF (08/13/2018 5:15 AM) White Blood Cells 9.7 4.5 - 11.0 K/UL [facility] MAIN [facility] RBC 3.25 (L) 4.0 - 5.0 M/UL [facility] Hemoglobin 6.8 (L) 12.0 - 15.0 GM/DL [facility] Hematocrit 22.4 (L) 36 - 45 % [facility] MCV 68.8 (L) 80 - 100 FL MAIN LAB MCH 20.8 (L) 26 - 34 PG [facility]IN [facility] MCHC 30.2 (L) 32.0 - 36.0 G/DL [facility] RDW 32.0 (H) 11 - 15 % [facility] Platelet Count 239 150 - 400 K/UL [facility]IN [facility] MPV 8.5 7 - 11 FL [facility] Neutrophils 70 41 - 77 % [facility] Lymphocytes 14 (L) 24 - 44 % [facility] Monocytes 10 4 - 12 % [facility] Eosinophils 5 0 - 5 % MAIN LAB Basophils 1 0 - 2 % [facility] Absolute Neutrophil Count 6.70 1.8 - 7.0 K/UL [facility] Absolute Lymph Count 1.40 1.0 - 4.8 K/UL [facility] Absolute Monocyte Count 0.90 (H) 0 - 0.80 K/UL MAIN LAB Absolute Eosinophil Count 0.50 (H) 0 - 0.45 K/UL [facility] MAIN [facility] Absolute Basophil Count 0.10 0 - 0.20 K/UL [facility]IN [facility] Specimen Blood Performing Organization Address City/[facility] Cent[facility]ode Phone Number MAIN LAB [address] [place] [address] * POC GLUCOSE (08/12/2018 8:32 PM) Glucose, POC 172 (H) 70 - 100 MG/DL [facility] Performing Organization Address City/[facility] Centercode Phone Number MAIN LAB [address] [place] [address] * POC GLUCOSE (08/12/2018 5:58 PM) Glucose, POC 167 (H) 70 - 100 MG/DL [facility] Performing Organization Address City/[facility] Centercode Phone Number MAIN LAB [address] [place] [address] * BASIC METABOLIC PANEL (08/12/2018 2:45 PM) Sodium 129 (L) 137 - 147 MMOL/L [facility] Potassium 4.9 3.5 - 5.1 MMOL/L [facility] Chloride 97 (L) 98 - 110 MMOL/L [facility] CO2 28 21 - 30 MMOL/L [facility] Anion Gap 4 3 - 12 [facility] Glucose 145 (H) 70 - 100 MG/DL [facility] Blood Urea Nitrogen 18 7 - 25 MG/DL [facility] Creatinine 0.82 0.4 - 1.00 MG/DL [facility] Calcium 8.8 8.5 - 10.6 MG/DL [facility] [...] for questions. Specimen Blood Performing Organization Address City/[facility]/Zipcode Phone Number [facility] [address] [place] [address] * POC GLUCOSE (08/12/2018 12:18 PM) Glucose, POC 232 (H) 70 - 100 MG/DL [facility] Performing Organization Address City/[facility]/Zipcode Phone Number MAIN LAB [address] [place] [address] * POC GLUCOSE (08/12/2018 7:26 AM) Glucose, POC 344 (H) 70 - 100 MG/DL MAIN LAB Performing Organization Address [facility]/Zipcode Phone Number [facility] [address] [place] [address] * COMPREHENSIVE METABOLIC PANEL (08/12/2018 4:23 AM) Sodium 128 (L) 137 - 147 MMOL/L [facility] Potassium 5.5 (H) 3.5 - 5.1 MMOL/L [facility] Chloride 97 (L) 98 - 110 MMOL/L [facility] Glucose 226 (H) 70 - 100 MG/DL [facility] Blood Urea Nitrogen 22 7 - 25 MG/DL [facility] Creatinine 0.82 0.4 - 1.00 MG/DL [facility] Calcium 8.3 (L) 8.5 - 10.6 MG/DL [facility] Total Protein 5.9 (L) 6.0 - 8.0 G/DL [facility] Total Bilirubin 0.3 0.3 - 1.2 MG/DL [facility] Albumin 2.7 (L) 3.5 - 5.0 G/DL [facility] Alk Phosphatase 130 (H) 25 - 110 U/L [facility] AST (SGOT) 29 7 - 40 U/L [facility] CO2 25 21 - 30 MMOL/L [facility] ALT (SGPT) 22 7 - 56 U/L [facility] Anion Gap 6 3 - 12 [facility] MAIN [facility] eGFR [...] Organization Address City/State/Zipcode Phone Number MAIN LAB [address] [place] [address] * CBC AND DIFF (08/12/2018 4:23 AM) White Blood Cells 11.8 (H) 4.5 - 11.0 K/UL [facility]IN [facility] RBC 3.42 (L) 4.0 - 5.0 M/UL [facility] Hemoglobin 7.3 (L) 12.0 - 15.0 GM/DL [facility] Hematocrit 24.2 (L) 36 - 45 % [facility] MCV 70.7 (L) 80 - 100 FL [facility]IN [facility] MCH 21.4 (L) 26 - 34 PG [facility]IN [facility] MCHC 30.4 (L) 32.0 - 36.0 G/DL [facility] RDW 32.3 (H) 11 - 15 % [facility] Platelet Count 240 150 - 400 K/UL [facility] MPV 9.2 7 - 11 FL [facility] Neutrophils 82 (H) 41 - 77 % [facility] Lymphocytes 7 (L) 24 - 44 % [facility] Monocytes 7 4 - 12 % [facility] Eosinophils 4 0 - 5 % [facility] Basophils 0 0 - 2 % [facility] Absolute Neutrophil Count 9.60 (H) 1.8 - 7.0 K/UL [facility]IN [facility] Absolute Lymph Count 0.80 (L) 1.0 - 4.8 K/UL [facility] Absolute Monocyte Count 0.80 0 - 0.80 K/UL [facility] Absolute Eosinophil Count 0.50 (H) 0 - 0.45 K/UL [facility] Absolute Basophil Count 0.00 0 - 0.20 K/UL [facility] Specimen Blood Performing Organization Address City/[facility]/Zipcode Phone Number [facility] [address] [place] [address] * CREATINE KINASE-CPK (08/12/2018 4:23 AM) Creatine Kinase 44 21 - 215 U/L MAIN LAB Specimen Blood Performing Organization Address City/[facility] Cent[facility]ode Phone Number MAIN LAB [address] [place] [address] * POC GLUCOSE (08/11/2018 8:56 PM) Glucose, POC 337 (H) 70 - 100 MG/DL [facility] Performing Organization Address City/[facility] Centercode Phone Number MAIN LAB [address] [place] [address] * POC GLUCOSE (08/11/2018 6:10 PM) Glucose, POC 278 (H) 70 - 100 MG/DL [facility] Performing Organization Address City/[facility] Centercode Phone Number MAIN LAB [address] [place] [address] * POC GLUCOSE (08/11/2018 12:29 PM) Glucose, POC 214 (H) 70 - 100 MG/DL [facility] Performing Organization Address City/[facility] Phone Number MAIN LAB [address] [place] [address] * POC GLUCOSE (08/11/2018 9:37 AM) Glucose, POC 235 (H) 70 - 100 MG/DL [facility] Performing Organization Address City/[facility]ercode Phone Number MAIN LAB [address] [place] [address] * COMPREHENSIVE METABOLIC PANEL (08/11/2018 4:03 AM) Sodium 125 (L) 137 - 147 MMOL/L [facility] Potassium 4.4 3.5 - 5.1 MMOL/L [facility] Chloride 96 (L) 98 - 110 MMOL/L [facility] Glucose 222 (H) 70 - 100 MG/DL [facility] Blood Urea Nitrogen 24 7 - 25 MG/DL [facility] Creatinine 0.87 0.4 - 1.00 MG/DL [facility] Calcium 8.0 (L) 8.5 - 10.6 MG/DL [facility] Total Protein 5.6 (L) 6.0 - 8.0 G/DL [facility] Total Bilirubin 0.4 0.3 - 1.2 MG/DL [facility] Albumin 2.7 (L) 3.5 - 5.0 G/DL [facility] Alk Phosphatase 110 25 - 110 U/L [facility] AST (SGOT) 28 7 - 40 U/L [facility] CO2 23 21 - 30 MMOL/L [facility] ALT (SGPT) 18 7 - 56 U/L [facility] Anion Gap 6 3 - 12 [facility] eGFR [...] Blood Performing Organization Address City/State/Zipcode Phone Number [facility] [address] [place] [address] * CBC AND DIFF (08/11/2018 4:03 AM) White Blood Cells 12.7 (H) 4.5 - 11.0 K/UL [facility] MAIN [facility] RBC 3.30 (L) 4.0 - 5.0 M/UL [facility] Hemoglobin 7.3 (L) 12.0 - 15.0 GM/DL [facility] Hematocrit 22.9 (L) 36 - 45 % [facility] MCV 69.4 (L) 80 - 100 FL [facility]IN [facility] MCH 22.0 (L) 26 - 34 PG [facility]IN [facility] MCHC 31.7 (L) 32.0 - 36.0 G/DL [facility] RDW 32.1 (H) 11 - 15 % [facility] Platelet Count 208 150 - 400 K/UL [facility]IN [facility] MPV 8.1 7 - 11 FL [facility]IN [facility] Neutrophils 82 (H) 41 - 77 % MAIN LAB Lymphocytes 6 (L) 24 - 44 % MAIN LAB Monocytes 8 4 - 12 % MAIN LAB Eosinophils 4 0 - 5 % MAIN LAB Basophils 0 0 - 2 % MAIN LAB Absolute Neutrophil Count 10.40 (H) 1.8 - 7.0 K/UL MAIN LAB Absolute Lymph Count 0.80 (L) 1.0 - 4.8 K/UL MAIN LAB Absolute Monocyte Count 1.00 (H) 0 - 0.80 K/UL MAIN LAB Absolute Eosinophil Count 0.50 (H) 0 - 0.45 K/UL MAIN LAB Absolute Basophil Count 0.00 0 - 0.20 K/UL MAIN LAB Specimen Blood Performing Organization Address City/[facility] Phone Number MAIN LAB [address] [place] [address] * POC GLUCOSE (08/10/2018 8:46 PM) Glucose, POC 140 (H) 70 - 100 MG/DL MAIN LAB Performing Organization Address [facility] Phone Number MAIN LAB [address] [place] [address] * POC GLUCOSE (08/10/2018 5:46 PM) Glucose, POC 176 (H) 70 - 100 MG/DL MAIN LAB Performing Organization Address [facility] Phone Number MAIN LAB [address] [place] [id number] * PTT (APTT) (08/10/2018 1:15 PM) APTT 21.9Comment: NOTE NEW 20.0 - 36.0 SEC MAIN LAB REFERENCE RANGES Specimen Blood Performing Organization Address [facility] Cent[facility]ode Phone Number MAIN LAB [address] [place] [address] * POC GLUCOSE (08/10/2018 12:06 PM) Glucose, POC 195 (H) 70 - 100 MG/DL MAIN LAB Performing Organization Address [facility] Phone Number MAIN LAB [address] [place] [address] * 2-D + DOPPLER ECHOCARDIOGRAM (08/10/2018 10:48 [...] OTHER OUTSIDE LAB S' Cardiology Ultrasound Siemens [id number] OTHER OUTSIDE LAB Machine Left Ventricle Mass [...] LAB * CULTURE-BLOOD W/SENSITIVITY (08/10/2018 8:20 AM) Battery Name BLOOD CULTURE [facility] Specimen Description BLOOD MAIN LAB LEFT ANTECUBITAL Special Requests NONE MAIN LAB Culture NO GROWTH 5 DAYS [facility]IN [facility] Report Status FINAL [facility] 08/16/2018 Specimen Blood Performing Organization Address City/[facility] Phone Number MAIN LAB [address] [place] [address] * POC GLUCOSE (08/10/2018 7:33 AM) Glucose, POC 201 (H) 70 - 100 MG/DL [facility]IN [facility] Performing Organization Address City/[facility] Phone Number MAIN LAB [address] [place] [address] * POC GLUCOSE (08/10/2018 3:18 AM) Glucose, POC 289 (H) 70 - 100 MG/DL MAIN LAB Performing Organization Address [facility] Phone Number MAIN LAB [address] [place] [address] * HEMOGLOBIN A1C (08/10/2018 3:14 AM) Hemoglobin A1C 10.3 (H) 4.0 - 6.0 % MAIN LAB Comment: The ADA recommends that most patients with type 1 and type 2 diabetes maintain an A1c level <7%. Performing Organization Address City/[facility] Cent[facility] Phone Number MAIN LAB [address] [place] [address] * PTT (APTT) (08/10/2018 3:14 AM) APTT 22.1Comment: NOTE NEW 20.0 - 36.0 SEC MAIN LAB REFERENCE RANGES Specimen Blood Performing Organization Address City/[facility] Phone Number MAIN LAB [address] [place] [address] * COMPREHENSIVE METABOLIC PANEL (08/10/2018 3:14 AM) Sodium 127 (L) 137 - 147 MMOL/L MAIN LAB Potassium 4.2 3.5 - 5.1 MMOL/L MAIN LAB Chloride 98 98 - 110 MMOL/L MAIN LAB Glucose 272 (H) 70 - 100 MG/DL [facility]U MAIN [facility] Blood Urea Nitrogen 23 7 - 25 MG/DL [facility]IN [facility] Creatinine 0.93 0.4 - 1.00 MG/DL [facility] MAIN [facility] Calcium 8.3 (L) 8.5 - 10.6 MG/DL [facility] MAIN [facility] Total Protein 5.8 (L) 6.0 - 8.0 G/DL [facility] MAIN [facility] Total Bilirubin 0.4 0.3 - 1.2 MG/DL [facility] MAIN [facility] Albumin 2.8 (L) 3.5 - 5.0 G/DL [facility] MAIN [facility] Alk Phosphatase 92 25 - 110 U/L [facility] MAIN [facility] AST (SGOT) 40 7 - 40 U/L [facility] MAIN [facility] CO2 22 21 - 30 MMOL/L [facility] MAIN [facility] ALT (SGPT) 28 7 - 56 U/L [facility] MAIN [facility] Anion Gap 7 3 - 12 [facility] MAIN [facility] eGFR [...] Blood Performing Organization Address City/State/Zipcode Phone Number [facility] [address] [place] [address] * CBC AND DIFF (08/10/2018 3:14 AM) White Blood Cells 19.2 (H) 4.5 - 11.0 K/UL [facility] MAIN [facility] RBC 3.54 (L) 4.0 - 5.0 M/UL [facility] MAIN [facility] Hemoglobin 7.7 (L) 12.0 - 15.0 GM/DL [facility] MAIN LAB Hematocrit 25.0 (L) 36 - 45 % [facility] MAIN [facility] MCV 70.6 (L) 80 - 100 FL [facility] MAIN [facility] MCH 21.8 (L) 26 - 34 PG [facility] MAIN [facility] MCHC 30.8 (L) 32.0 - 36.0 G/DL [facility] MAIN [facility] RDW 32.8 (H) 11 - 15 % [facility] MAIN [facility] Platelet Count 227 150 - 400 K/UL [facility] MAIN [facility] MPV 9.3 7 - 11 FL [facility] MAIN [facility] Neutrophils 88 (H) 41 - 77 % [facility] MAIN [facility] Lymphocytes 4 (L) 24 - 44 % [facility] Monocytes 7 4 - 12 % [facility] Eosinophils 1 0 - 5 % [facility] Basophils 0 0 - 2 % [facility] MAIN [facility] Absolute Neutrophil Count 17.00 (H) 1.8 - 7.0 K/UL [facility] MAIN [facility] Absolute Lymph Count 0.80 (L) 1.0 - 4.8 K/UL [facility] MAIN LAB Absolute Monocyte Count 1.20 (H) 0 - 0.80 K/UL [facility] MAIN [facility] Absolute Eosinophil Count 0.10 0 - 0.45 K/UL [facility] MAIN [facility] Absolute Basophil Count 0.00 0 - 0.20 K/UL MAIN LAB Specimen Blood Performing Organization Address City/[facility]/Zipcode Phone Number MAIN LAB [address] [place] [address] * POC GLUCOSE (08/09/2018 11:24 PM) Glucose, POC 321 (H) 70 - 100 MG/DL [facility] MAIN [facility] Performing Organization Address City/[facility] Phone Number MAIN LAB [address] [place] [address] * POC GLUCOSE (08/09/2018 9:06 PM) Glucose, POC 412 (H) 70 - 100 MG/DL MAIN LAB Performing Organization Address [facility] Cent[facility] Phone Number MAIN LAB [address] [place] [address] * PTT (APTT) (08/09/2018 8:04 PM) APTT 24.2Comment: NOTE NEW 20.0 - 36.0 SEC MAIN LAB REFERENCE RANGES Specimen Blood Performing Organization Address City/[facility]/Zipcode Phone Number MAIN LAB [address] [place] [address] * PHOSPHORUS (08/09/2018 3:00 PM) Phosphorus 2.7 2.0 - 4.0 MG/DL MAIN LAB Specimen Blood Performing Organization Address City/[facility] Phone Number MAIN LAB [address] [place] [address] * MAGNESIUM (08/09/2018 3:00 PM) Magnesium 1.8 1.6 - 2.6 mg/dL MAIN LAB Specimen Blood Performing Organization Address City/[facility]/Zipcode Phone Number MAIN LAB [address] [place] [address] * COMPREHENSIVE METABOLIC PANEL (08/09/2018 3:00 PM) Sodium 128 (L) 137 - 147 MMOL/L [facility] MAIN [facility] Potassium 3.9 3.5 - 5.1 MMOL/L [facility]IN [facility] Chloride 100 98 - 110 MMOL/L [facility] MAIN [facility] Glucose 185 (H) 70 - 100 MG/DL [facility] MAIN [facility] Blood Urea Nitrogen 19 7 - 25 MG/DL [facility] MAIN [facility] Creatinine 0.90 0.4 - 1.00 MG/DL [facility] MAIN [facility] Calcium 7.8 (L) 8.5 - 10.6 MG/DL [facility] MAIN [facility] Total Protein 5.9 (L) 6.0 - 8.0 G/DL [facility] MAIN [facility] Total Bilirubin 0.5 0.3 - 1.2 MG/DL [facility] MAIN [facility] Albumin 2.8 (L) 3.5 - 5.0 G/DL [facility] MAIN [facility] Alk Phosphatase 81 25 - 110 U/L [facility] MAIN [facility] AST (SGOT) 48 (H) 7 - 40 U/L [facility] MAIN [facility] CO2 20 (L) 21 - 30 MMOL/L [facility] MAIN [facility] ALT (SGPT) 25 7 - 56 U/L [facility] MAIN [facility] Anion Gap 8 3 - 12 K[facility] MAIN LAB eGFR [...] Address City/State/Zipcode Phone Number MAIN LAB [address] [place] [address] * CBC AND DIFF (08/09/2018 3:00 PM) White Blood Cells 20.9 (H) 4.5 - 11.0 K/UL [facility] MAIN [facility] RBC 3.77 (L) 4.0 - 5.0 M/UL [facility] MAIN [facility] Hemoglobin 8.0 (L) 12.0 - 15.0 GM/DL KU MAIN LAB Hematocrit 26.8 (L) 36 - 45 % [facility] MAIN [facility] MCV 70.9 (L) 80 - 100 FL [facility] MAIN LAB MCH 21.3 (L) 26 - 34 PG MAIN LAB MCHC 30.0 (L) 32.0 - 36.0 G/DL MAIN LAB RDW 31.8 (H) 11 - 15 % [facility] MAIN LAB Platelet Count 275 150 - 400 K/UL MAIN LAB MPV 8.8 7 - 11 FL MAIN LAB Neutrophils 90 (H) 41 - 77 % [facility] MAIN [facility] Lymphocytes 2 (L) 24 - 44 % [facility] MAIN [facility] Monocytes 8 4 - 12 % [facility] MAIN [facility] Eosinophils 0 0 - 5 % [facility] MAIN [facility] Basophils 0 0 - 2 % [facility] MAIN [facility] Absolute Neutrophil Count 18.80 (H) 1.8 - 7.0 K/UL KU MAIN LAB Absolute Lymph Count 0.50 (L) 1.0 - 4.8 K/UL MAIN LAB Absolute Monocyte Count 1.60 (H) 0 - 0.80 K/UL MAIN LAB Absolute Eosinophil Count 0.00 0 - 0.45 K/UL MAIN LAB Absolute Basophil Count 0.00 0 - 0.20 K/UL MAIN LAB Specimen Blood Performing Organization Address City/[facility] Phone Number MAIN LAB [address] [place] [address] * POC GLUCOSE (08/09/2018 2:29 PM) Glucose, POC 126 (H) 70 - 100 MG/DL KU MAIN LAB Performing Organization Address City/[facility] Phone Number MAIN LAB [address] [place] [address] * POC GLUCOSE (08/09/2018 1:48 PM) Glucose, POC 111 (H) 70 - 100 MG/DL [facility] MAIN [facility] Performing Organization Address City/[facility] Phone Number MAIN LAB [address] [place] [address] * POC GLUCOSE (08/09/2018 12:44 PM) Glucose, POC 82 70 - 100 MG/DL [facility] MAIN [facility] Performing Organization Address City/[facility] Phone Number MAIN LAB [address] [place] [address] * POC GLUCOSE (08/09/2018 12:27 PM) Glucose, POC 64 (L) 70 - 100 MG/DL [facility] MAIN [facility] Performing Organization Address City/[facility] Phone Number [facility] [address] [place] [address] * POC GLUCOSE (08/09/2018 11:40 AM) Glucose, POC 80 70 - 100 MG/DL [facility] MAIN [facility] Performing Organization Address [facility] Phone Number [facility] [address] [place] [address] * POC IONIZED CALCIUM (08/09/2018 11:12 AM) Ionized Calcium-POC 1.06 1.0 - 1.3 MMOL/L [facility] MAIN LAB Performing Organization Address [facility] Phone Number MAIN LAB [address] [place] [address] * POC SODIUM (08/09/2018 11:12 AM) Sodium-POC 131 (L) 137 - 147 MMOL/L [facility] MAIN [facility] Performing Organization Address [facility] Phone Number MAIN LAB [address] [place] [address] * POC POTASSIUM (08/09/2018 11:12 AM) Potassium-POC 3.4 (L) 3.5 - 5.1 MMOL/L [facility] MAIN [facility] Performing Organization Address [facility] Phone Number MAIN LAB [address] [place] [address] * POC HEMATOCRIT (08/09/2018 11:12 AM) Hemoglobin POC 8.8 (L) 12.0 - 15.0 GM/DL KU MAIN LAB Hematocrit POC 26.0 (L) 36 - 45 % [facility] MAIN [facility] Performing Organization Address [facility] Phone Number MAIN LAB [address] [place] [address] * POC BLOOD GAS ARTERIAL (08/09/2018 11:12 AM) PH-ART-POC 7.40 7.35 - 7.45 KU MAIN LAB [id number] 41 35 - 45 MMHG [facility] MAIN LAB PO2-ART-POC 488 (H) 80 - 100 MMHG [facility] MAIN LAB Base Ex-ART-POC 0.0 MMOL/L [facility] MAIN LAB O2 Sat-ART-POC 100.0 (H) 95 - 99 % [facility] MAIN LAB [id number] 24.9 21 - 28 MMOL/L [facility] Performing [facility] Phone Number [facility] [address] [place] [address] * POC GLUCOSE (08/09/2018 10:34 AM) Glucose, POC 139 (H) 70 - 100 MG/DL [facility] MA[facility] Performing Organization Address [facility] Centercode Phone Number [facility] [address] [place] [address] * POC IONIZED CALCIUM (08/09/2018 9:29 AM) Ionized Calcium-POC 1.12 1.0 - 1.3 MMOL/L [facility] Performing Organization Address [facility] Centercode Phone Number [facility] [address] [place] [address] * POC SODIUM (08/09/2018 9:29 AM) Sodium-POC 129 (L) 137 - 147 MMOL/L [facility] Performing Organization Address [facility] Centercode Phone Number [facility] [address] [place] [address] * POC POTASSIUM (08/09/2018 9:29 AM) Potassium-POC 3.6 3.5 - 5.1 MMOL/L [facility] Performing Organization Address [facility] Phone Number [facility] [address] [place] [address] * POC HEMATOCRIT (08/09/2018 9:29 AM) Hemoglobin POC 9.2 (L) 12.0 - 15.0 GM/DL [facility] Hematocrit POC 27.0 (L) 36 - 45 % [facility] Performing Organization Address [facility] Centercode Phone Number [facility] [address] [place] [address] * POC BLOOD GAS ARTERIAL (08/09/2018 9:29 AM) PH-ART-POC 7.35 7.35 - 7.45 [facility] [id number] 47 (H) 35 - 45 [facility] PO2-ART-POC 513 (H) 80 - 100 [facility] Base Ex-ART-POC 0.0 MMOL/L [facility] O2 Sat-ART-POC 100.0 (H) 95 - 99 % [facility] Klgxrfmpntb-GVF-SCR 25.9 21 - 28 MMOL/L [facility] Performing Organization Address City/[facility]/Zipcode Phone Number MAIN LAB [address] [place] [address] * POC GLUCOSE (08/09/2018 9:27 AM) Glucose, POC 219 (H) 70 - 100 MG/DL [facility] Performing Organization Address [facility]/Zipcode Phone Number MAIN LAB [address] [place] [address] * BLOOD TYPE CONFIRMATION - ORDER ONLY IF REQUESTED BY LAB (08/09/2018 8:10 AM) ABO/RH(D) A NEG MAIN LAB Performing Organization Address [facility] Phone Number MAIN LAB [address] [place] [address] * PROTIME INR (PT) (08/09/2018 8:10 AM) INR 1.1 0.8 - 1.2 MAIN LAB Specimen Blood Performing Organization Address [facility] Phone Number MAIN LAB [address] [place] [address] * CTA ABD AORTA & SREEDHAR RUN [...] on 08/09/2018 8:09 AM. Performing Organization Address City/[facility]/Zipcode Phone Number RAD RESULTS * POC GLUCOSE (08/09/2018 7:05 AM) Glucose, POC 391 (H) 70 - 100 MG/DL MAIN LAB Performing Organization Address City/[facility] Phone Number MAIN LAB [address] [place] [address] * POC GLUCOSE (08/09/2018 6:07 AM) Glucose, POC 432 (H) 70 - 100 MG/DL MAIN LAB Performing Organization Address City/[facility]/Zipcode Phone Number MAIN LAB [address] [place] [address] * POC GLUCOSE (08/09/2018 5:27 AM) Glucose, POC 393 (H) 70 - 100 MG/DL MAIN LAB Performing Organization Address City/[facility]/Zipcode Phone Number MAIN LAB [address] [place] [address] * CULTURE-BLOOD W/SENSITIVITY (08/09/2018 5:15 AM) Battery Name BLOOD CULTURE [facility] Specimen Description BLOOD MAIN LAB LEFT WRIST aerobic bottle only Special Requests Culture performed on specimen [facility] with less than the recommended volume of 10 ml/bottle. Decreased volume will affect sensitivity of culture. Culture NO GROWTH 5 DAYS [facility] Report Status FINAL MAIN LAB 08/15/2018 Specimen Blood Performing Organization Address City/[facility]/Zipcode Phone Number [facility] [address] [place] [address] * VRE SCREEN (08/09/2018 4:45 AM) Battery Name VRE SCREEN MAIN LAB Specimen Description PERIRECTAL SWAB MAIN LAB Special Requests NONE MAIN LAB Culture NO VRE ISOLATED MAIN LAB Report Status FINAL MAIN LAB 08/10/2018 Specimen Perirectal Swab Performing Organization Address [facility] Phone Number MAIN LAB [address] [place] [address] * TYPE & CROSSMATCH (08/09/2018 4:23 AM) Units Ordered 2 MAIN LAB Crossmatch Expires 08/12/2018 MAIN LAB Record Check 2ND TYPE REQUIRED MAIN LAB ABO/RH(D) A NEG MAIN LAB Antibody Screen NEG MAIN LAB Electronic Crossmatch YES MAIN LAB Unit Number [id number] MAIN LAB Blood Component Type RBC,ADSOL,LEUKO REDUCED,1ST MAIN LAB CONT. Unit Division 0 MAIN LAB Status OF Unit TRANSFUSED MAIN LAB Transfusion Status OK TO TRANSFUSE MAIN LAB Crossmatch Result COMPATIBLE,ELECTRONIC MAIN LAB Unit Number [id number] MAIN LAB Blood Component Type RBC,ADSOL,LEUKO REDUCED,2ND MAIN LAB CONT. Unit Division 0 MAIN LAB Status OF Unit REL FROM ALLOC MAIN LAB Transfusion Status OK TO TRANSFUSE MAIN LAB Crossmatch Result COMPATIBLE,ELECTRONIC MAIN LAB Performing Organization Address [facility] Phone Number MAIN LAB [address] [place] [address] * MRSA SCREEN (08/09/2018 4:23 AM) Battery Name MRSA SCREEN MAIN LAB Specimen Description NASAL MAIN LAB Special Requests NONE MAIN LAB Culture NO MRSA ISOLATED [facility] Report Status FINAL MAIN LAB 08/10/2018 Specimen Nasal Performing Organization Address [facility] Phone Number MAIN LAB [address] [place] [address] * LACTIC ACID(LACTATE) (08/09/2018 4:23 AM) Lactic Acid 1.3 0.5 - 2.0 MMOL/L [facility] Specimen Blood Performing Organization Address [facility] Phone Number MAIN LAB [address] [place] [address] * BASIC METABOLIC PANEL (08/09/2018 4:23 AM) Sodium 126 (L) 137 - 147 MMOL/L [facility] Potassium 4.5 3.5 - 5.1 MMOL/L [facility] Chloride 96 (L) 98 - 110 MMOL/L [facility] CO2 20 (L) 21 - 30 MMOL/L [facility] Anion Gap 10 3 - 12 [facility] Glucose 348 (H) 70 - 100 MG/DL [facility] Blood Urea Nitrogen 22 7 - 25 MG/DL [facility] Creatinine 0.89 0.4 - 1.00 MG/DL [facility] Calcium 8.4 (L) 8.5 - 10.6 MG/DL [facility] MAIN [...] for questions. Specimen Blood Performing Organization Address [facility] Phone Number MAIN LAB [address] [place] [address] * CBC (08/09/2018 4:23 AM) White Blood Cells 22.4 (H) 4.5 - 11.0 K/UL [facility] RBC 3.83 (L) 4.0 - 5.0 M/UL [facility] Hemoglobin 7.8 (L) 12.0 - 15.0 GM/DL [facility] Hematocrit 26.0 (L) 36 - 45 % [facility] MCV 67.9 (L) 80 - 100 FL [facility] MCH 20.4 (L) 26 - 34 PG [facility] MCHC 30.0 (L) 32.0 - 36.0 G/DL [facility] RDW 31.7 (H) 11 - 15 % [facility] Platelet Count 253 150 - 400 K/UL [facility] MPV 8.6 7 - 11 FL [facility] Specimen Blood Performing Organization Address City/[facility] Phone Number MAIN LAB [address] [place] [address] * PTT (APTT) (08/09/2018 4:23 AM) APTT 21.7Comment: NOTE NEW 20.0 - 36.0 SEC MAIN LAB REFERENCE RANGES Specimen Blood Performing Organization Address City/[facility] Phone Number MAIN LAB [address] [place] [address] * POC GLUCOSE (08/09/2018 4:08 AM) Glucose, POC 373 (H) 70 - 100 MG/DL [facility] Performing Organization Address [facility] Phone Number MAIN LAB [address] [place] [address] * US VENOUS DOPPLER EXTERNAL IMAGING (08/08/2018 [...] result. in this encounter Visit Diagnoses Diagnosis LV (left ventricular) mural thrombus without ID - Primary Other ill-defined heart disease Diagnosis unknown Other unknown and unspecified cause of morbidity or mortality Uterine leiomyoma, unspecified location Abnormal uterine bleeding (AUB) Acute on chronic blood loss anemia (HCC) Acute embolism and thombos unsp deep vn unsp lower extremity (HCC) Bacteremia due to Gram-positive bacteria Bacteremia Mass of heart Swelling, mass, or lump in chest Acute systolic CHF (congestive heart failure) ([facility]) Acute systolic heart failure Polysubstance abuse (HCC) Other, mixed, or unspecified nondependent drug abuse, unspecified DM (diabetes mellitus) ([facility]) Type II or unspecified type diabetes mellitus without mention of complication , not stated as uncontrolled Moderate malnutrition (HCC) Malnutrition of moderate degree Admitting Diagnoses Diagnosis dka DKA (diabetic ketoacidoses) (HCC) Type II or unspecified type diabetes mellitus with ketoacidosis, not stated as uncontrolled LV (left ventricular) mural thrombus without ID Other ill-defined heart disease Administered Medications Medication Order MAR Action Action Date Dose Rate Site acetaminophen (TYLENOL) tablet 500 mg Given 08/21/2018 500 mg 500 mg, Oral, EVERY 8 HOURS, First dose 21:46 CDT on Tue08/18/18 at 1600, Until Discontinued, TOTAL ACETAMINOPHEN DOSE NOT TO EXCEED 4GM DAILY Given 08/22/2018 500 mg 05:16 CDT Given 08/22/2018 500 mg 14:36 CDT apixaban (ELIQUIS) tablet 5 mg 5 mg, Oral, TWICE DAILY, First dose on Tue08/22/18 at 2100, Until Discontinued, May crush 5 mg or 2.5 mg tablets and suspend in 60 mL of D5W followed by immediate delivery through a nasogastric tube. No information regarding administration of suspension by mouth is available. NOTE: This is a HIGH ALERT Medication. aspirin EC tablet 81 mg Given 08/13/2018 81 mg 81 mg, Oral, DAILY, First dose on Tue 08:03 CDT 08/09/18 at 0900, Until Discontinued Given 08/14/2018 81 mg 08:18 CDT Given 08/15/2018 81 mg 08:21 CDT atorvastatin (LIPITOR) tablet 80 mg Given 08/10/2018 80 mg 80 mg, Oral, DAILY, First dose on Tue 08:15 CDT 08/09/18 at 0900, Until Discontinued Given 08/11/2018 80 mg 08:49 CDT benzocaine/menthol (CHLORASEPTIC) Given 08/10/2018 1 lozenge lozenge 1 lozenge 01:09 CDT 1 lozenge, Oral, EVERY 2 HOURS PRN, Starting Tue08/09/18 at 2340, Until Tue08/22/18 at 2343, Mouth/Throat Pain carvedilol (COREG) tablet 3.125 mg Given 08/13/2018 3.125 mg 3.125 mg, Oral, TWICE DAILY, First dose 08:03 CDT on Tue08/09/18 at 0900, Until Discontinued, Hold for heart rate < 60 bpm Given 08/13/2018 3.125 mg 20:21 CDT Given 08/14/2018 3.125 mg 08:17 CDT carvedilol (COREG) tablet 3.125 mg Given 08/20/2018 3.125 mg 3.125 mg, Oral, TWICE DAILY, First dose 20:30 CDT on 08/20/18 at 0900, Until Discontinued, Hold for heart rate < 60 bpm and sbp<100 mm hg Given 08/21/2018 3.125 mg 08:11 CDT Given 08/22/2018 3.125 mg 08:36 CDT cefepime (MAXIPIME) 2 g/100 ml Given 08/09/2018 2 g 200 mL/hr iso-osmotic IVPB 14:46 CDT 2 g, Intravenous, 100 mL, Administer over 30 Minutes, EVERY 8 HOURS, First dose on Tue08/09/18 at 0545, Until Discontinued Given 08/09/2018 2 g 200 mL/hr 21:32 CDT Given 08/10/2018 2 g 200 mL/hr 05:53 CDT ceftaroline (TEFLARO) 600 mg in sodium Given - New 08/10/2018 600 mg 70 mL/hr chloride 0.9% (NS) 70 mL IVPB Bag 14:37 CDT 600 mg, Intravenous, 70 mL, Administer over 60 Minutes, EVERY 12 HOURS, First dose on Yesica 08/10/18 at 1430, Until Discontinued Given - New Bag 08/11/2018 600 mg 70 mL/hr 02:01 CDT Given - New Bag 08/11/2018 600 mg 70 mL/hr 08:56 CDT DAPTOmycin (CUBICIN) injection 700 mg Given 08/20/2018 700 mg 700 mg (rounded from 685 mg=10 mg/kg 15:09 CDT 68.5 kg Adjusted weight), 14 mL, Intravenous, Administer over 5 Minutes, EVERY 24 HOURS, First dose on Yesica 08/10/18 at 1500, Until Discontinued, Administer IV-Push over 5 minutes Given 08/21/2018 700 mg 15:04 CDT Given 08/22/2018 700 mg 15:00 CDT diphenhydrAMINE/lidocaine/antacid (#) Given 08/15/2018 10 mL (MAGIC MOUTHWASH) 1:1:1 suspension 10 mL 06:56 CDT 10 mL, Swish & Spit, THREE TIMES DAILY PRN, Starting [place] 08/13/18 at 1236, Until 08/22/18 at 2343, Mouth/Throat Pain Given 08/15/2018 10 mL 23:51 CDT Given 08/16/2018 10 mL 22:31 CDT enoxaparin (LOVENOX) syringe 70 mg Given 08/21/2018 70 mg Abdominal 70 mg, Subcutaneous, TWICE DAILY, First 08:11 CDT Tissue dose on Yesica 08/10/18 at 1430, Until Discontinued, For patients undergoing surgery: Consult physician in advance -- enoxaparin is an anticoagulant and may need to be held for 12hr prior to surgery or invasive procedures. NOTE: This is a HIGH ALERT Medication. Given 08/21/2018 70 mg Abdominal 21:46 CDT Tissue Given 08/22/2018 70 mg Abdomen:RLQ 08:38 CDT fentaNYL (SUBLIMAZE) ASSISTANT FILM EDITOR 550 mcg/ NS Dose/Rate 08/19/2018 55 mL infusion syr (std conc)(premade) Verify 07:39 CDT Intravenous, ASSISTANT FILM EDITOR, Starting 08/18/18 at 1600, Until 08/19/18 at 1244, ASSISTANT FILM EDITOR Additional Bolus (Pain >5): 10 mcg, Re-assess in 15 minutes, may repeat bolus ONE time if pain not adequately controlled (MAXIMUM of 2 bolus doses only). Check pump to ensure proper function and appropriate patient utilization. If pain is still not adequately controlled, contact physician. Stop ASSISTANT FILM EDITOR if patient difficult to arouse, or systolic BP drops more than 20 mmHg from baseline. fentaNYL ASSISTANT FILM EDITOR Conc=10 mcg/mL Administer only with ASSISTANT FILM EDITOR Pump -- Only Patient may push ASSISTANT FILM EDITOR button. NOTE: This is a HIGH ALERT Medication. MEDICATION DOUBLE CHECK Policy applies. fentaNYL citrate PF (SUBLIMAZE) Given 08/10/2018 25 mcg injection 25 mcg 01:25 CDT 25 mcg, Intravenous, EVERY 1 HOUR PRN, Starting 08/09/18 at 1357, Until 08/13/18 at 1149, Breakthrough pain not covered by PO medications Given 08/12/2018 25 mcg 20:33 CDT fentaNYL citrate PF (SUBLIMAZE) Given 08/18/2018 50 mcg injection 25-50 mcg 15:52 CDT 25-50 mcg, Intravenous, ONCE, 1 dose, 08/18/18 at 1500 fentaNYL citrate PF (SUBLIMAZE) Given 08/18/2018 25 mcg injection 16:38 CDT INTRA-PROCEDURE MED, Starting Tue08/18/18 at 1611, Until Discontinued Given 08/18/2018 50 mcg 16:45 CDT Given 08/18/2018 25 mcg 17:21 CDT ferrous sulfate (FEOSOL, FEROSUL) tablet Given 08/13/2018 325 mg 325 mg 08:04 CDT 325 mg, Oral, TWICE DAILY WITH MEALS, First dose on Yesica 08/10/18 at 1700, Until Discontinued, Each 325mg ferrous sulfate delivers 65mg elemental iron. Given 08/13/2018 325 mg 17:31 CDT Given 08/14/2018 325 mg 08:18 CDT ferrous sulfate (FEOSOL, FEROSUL) tablet Given 08/18/2018 325 mg 325 mg 09:22 CDT 325 mg, Oral, EVERY 48 HOURS, First dose on Tue08/16/18 at 0830, Until Discontinued, Each 325mg ferrous sulfate delivers 65mg elemental iron. Given 08/20/2018 325 mg 09:10 CDT Given 08/22/2018 325 mg 08:35 CDT furosemide (LASIX) tablet 40 mg Given 08/10/2018 40 mg 40 mg, Oral, DAILY, First dose on Tue 08:15 CDT 08/09/18 at 0900, Until Discontinued furosemide (LASIX) tablet 40 mg Given 08/12/2018 40 mg 40 mg, Oral, DAILY, First dose on Sat 08:46 CDT 08/12/18 at 0900, Until Discontinued Given 08/13/2018 40 mg 08:03 CDT Given 08/14/2018 40 mg 08:18 CDT furosemide (LASIX) tablet 40 mg Given 08/20/2018 40 mg 40 mg, Oral, DAILY, First dose on Tue 09:10 CDT 08/20/18 at 0900, Until Discontinued Given 08/21/2018 40 mg 08:11 CDT Given 08/22/2018 40 mg 08:35 CDT heparin (porcine) 20,000 units/D5W 500 Given - New 08/09/2018 1,029 25.7 mL/hr mL infusion (std conc)(premade) Bag 05:20 CDT Units/hr 0-2,000 Units/hr (0-50 mL/hr) 500 mL, at 0-50 mL/hr, Intravenous, TITRATE DIRECTED , Starting Tue08/09/18 at 0500, Until Tue08/09/18 at 1231, Weight-Based Heparin Protocol - See separate order for Initial IV bolus (if ordered) - Initial IV infusion 15 units/kg/hr. Initial IV infusion not to exceed 1,700 units/hr. - Follow heparin infusion scale - WITH ADJUSTMENT BOLUS for subsequent bolus and rate changes (see separate order). Heparin Infusion Scale - WITH ADJUSTMENT BOLUS aPTT Adj Bolus Dose Pause Infusion Infusion Rate Repeat (secs) (units/kg) (minutes) (units/hr) <65 40 0 Increase 200 units/hr in 6 hours 65-74 20 0 Increase 100 units/hr in 6 hours 75-120 0 0 No Change in 6 hours/qAM* 121-129 0 60 Decrease 100 units/hr in 6 hours 130-150 0 90 Decrease 200 units/hr in 6 hours >150 0 90 Decrease 200 units/hr ++ * After [...] is a HIGH ALERT Medication. Dose/Rate Change 08/09/2018 1,028 25.7 mL/hr 07:28 CDT Units/hr heparin (porcine) 20,000 units/D5W 500 Dose/Rate 08/10/2018 1,400 35 mL /hr mL infusion (std conc)(premade) Change 04:45 CDT Units/hr 0-2,000 Units/hr (0-50 mL/hr) 500 mL, at 0-50 mL/hr, Intravenous, TITRATE DIRECTED , Starting 08/09/18 at 1245, Until Yesica 08/10/18 at 1333, - Weight Based Heparin Protocol - Recent Surgery/Procedure - NO INITIAL IV BOLUS - Initial IV infusion 10 units/kg/hr. Initial IV infusion not to exceed 800 units/hr - Follow Heparin Infusion Scale - NO ADJUSTMENT BOLUS Heparin Infusion Scale [...] is a HIGH ALERT Medication. Dose/Rate Verify 08/10/2018 1,400 35 mL/hr 07:32 CDT Units/hr Given - New Bag 08/10/2018 1,400 35 mL/hr 08:14 CDT Units/hr heparin (porcine) BOLUS for continuous Given 08/09/2018 4,802 Units inf (bag) 4,802 Units 05:51 CDT 4,802 Units (70 Units/kg 68.6 kg), Intravenous, ONCE, 1 dose, Tue08/09/18 at 0500, INITIAL BOLUS for heparin drip -- Weight-Based Heparin Protocol - Initial IV bolus (from bag): 70 units/kg - Not to exceed 7500 units - Administer initial bolus dose via pump from infusion bag. NOTE: This is a HIGH ALERT Medication. hydrocortisone PF (SOLU-CORTEF) Given 08/18/2018 100 mg injection 100 mg 15:42 CDT 100 mg, Intravenous, ONCE, 1 dose, Tue08/18/18 at 1500 insulin aspart U-100 (NOVOLOG FLEXPEN) Given 08/21/2018 4 Units Arm, Left injection PEN 0-14 Units 21:54 CDT 0-14 Units, Subcutaneous, BEFORE MEALS AND AT BEDTIME, First dose on Tue08/09/18 at 1700, Until Discontinued, -POC glucose 140-180mg/dL at , , administer 2 units insulin, at 21, 03* administer 0 units. -POC glucose 181-220mg/dL at , , administer 4 units insulin, at 21, 03* administer 2 units. -POC glucose 221-260mg/dL at , , administer 6 units insulin, at 21, 03* administer 4 units. -POC glucose 261-300mg/dL at , , administer 8 units insulin, at 21, 03* administer 6 units. -POC glucose 301-350mg/dL at , , administer 10 units insulin, at 21, 03* administer 8 units. -POC glucose 351-400mg/dL at , , administer 12 units insulin, at 21, 03* administer 10 units. -POC glucose >400mg/dL at , , administer 14 units insulin, at 21, 03* administer 12 units. *only if ordered 5x's daily For POCT glucose >350mg/dL give correction bolus and recheck POCT glucose in 2 hours. If POCT glucose at 2 hours >300mg/dL call physician for further orders. For patients who are not eating meals, continue to administer the appropriate correction factor. NOTE: This is a HIGH ALERT Medication. Given 08/22/2018 10 Units Arm, Right 07:35 CDT Given 08/22/2018 6 Units Abdomen:RLQ 16:54 CDT insulin aspart U-100 (NOVOLOG FLEXPEN) Given 08/22/2018 10 Units Arm, Left injection PEN 10 Units 07:34 CDT 10 Units, Subcutaneous, THREE TIMES DAILY WITH MEALS, First dose on Tue08/16/18 at 1200, Until Discontinued, Hold if NPO for procedure, unable to eat, or if FSBS < 70 mg/dL Give at start of meal. NOTE: This is a HIGH ALERT Medication. Given 08/22/2018 10 Units Abdomen:RLQ 11:48 CDT Given 08/22/2018 10 Units Abdomen:RLQ 16:54 CDT insulin aspart U-100 (NOVOLOG FLEXPEN) Given 08/10/2018 6 Units Abdomen:RLQ injection PEN 6 Units 03:45 CDT 6 Units, Subcutaneous, ONCE, 1 dose, Yesica 08/10/18 at 0345, Give scheduled doses of Insulin Aspart with meals/food. NOTE: Rapid acting insulins should be given with food/meal. Use caution when patient is NPO. NOTE: This is a HIGH ALERT Medication. insulin aspart U-100 (NOVOLOG FLEXPEN) Given 08/10/2018 8 Units Arm, Right injection PEN 8 Units 17:47 CDT 8 Units, Subcutaneous, THREE TIMES DAILY WITH MEALS, First dose on Yesica 08/10/18 at 1245, Until Discontinued, Give scheduled doses of Insulin Aspart with meals/food. NOTE: Rapid acting insulins should be given with food/meal. Use caution when patient is NPO. NOTE: This is a HIGH ALERT Medication. Given 08/11/2018 8 Units Arm, Right 09:38 CDT Given 08/11/2018 8 Units Arm, Right 12:35 CDT insulin aspart U-100 (NOVOLOG FLEXPEN) Given 08/15/2018 8 Units Abdominal injection PEN 8 Units 11:38 CDT Tissue 8 Units, Subcutaneous, THREE TIMES DAILY WITH MEALS, First dose on 08/14/18 at 1245, Until Discontinued, Hold if NPO for procedure, unable to eat, or if FSBS < 70 mg/dL Give at start of meal. NOTE: This is a HIGH ALERT Medication. Given 08/15/2018 8 Units Abdominal 17:44 CDT Tissue Given 08/16/2018 8 Units Arm, Right 08:18 CDT insulin glargine (LANTUS SOLOSTAR, Given 08/14/2018 10 Units Arm, Left BASAGLAR) injection PEN 10 Units 21:31 CDT 10 Units, Subcutaneous, TWICE DAILY, First dose on Tue08/14/18 at 1245, Until Discontinued, Continue if NPO. DO NOT mix with other insulins -- Do not mix with other insulins -- NOTE: This is a HIGH ALERT Medication. Given 08/15/2018 10 Units Abdominal 08:22 CDT Tissue insulin glargine (LANTUS SOLOSTAR, Given 08/15/2018 15 Units Arm, Right BASAGLAR) injection PEN 15 Units 21:10 CDT 15 Units, Subcutaneous, TWICE DAILY, First dose on Tue08/15/18 at 2100, Until Discontinued, Continue if NPO. DO NOT mix with other insulins -- Do not mix with other insulins -- NOTE: This is a HIGH ALERT Medication. Given 08/16/2018 15 Units Abdominal 09:39 CDT Tissue insulin glargine (LANTUS SOLOSTAR, Given 08/16/2018 18 Units Arm, Left BASAGLAR) injection PEN 18 Units 21:02 CDT 18 Units, Subcutaneous, TWICE DAILY, First dose on Tue08/16/18 at 2100, Until Discontinued, Continue if NPO. DO NOT mix with other insulins -- Do not mix with other insulins -- NOTE: This is a HIGH ALERT Medication. Given 08/17/2018 18 Units Abdomen:LLQ 09:00 CDT insulin glargine (LANTUS SOLOSTAR, Given 08/17/2018 19 Units Abdominal BASAGLAR) injection PEN 19 Units 20:16 CDT Tissue 19 Units, Subcutaneous, TWICE DAILY, First dose on Tue08/17/18 at 2100, Until Discontinued, Continue if NPO. DO NOT mix with other insulins -- Do not mix with other insulins -- NOTE: This is a HIGH ALERT Medication. insulin glargine (LANTUS SOLOSTAR, Given 08/09/2018 20 Units Arm, Right BASAGLAR) injection PEN 20 Units 23:33 CDT 20 Units, Subcutaneous, AT BEDTIME DAILY, First dose on Tue08/09/18 at 2100, Until Discontinued, -- Do not mix with other insulins -- NOTE: This is a HIGH ALERT Medication. insulin glargine (LANTUS SOLOSTAR, Given 08/20/2018 20 Units Abdominal BASAGLAR) injection PEN 20 Units 21:57 CDT Tissue 20 Units, Subcutaneous, TWICE DAILY, First dose on Tue08/18/18 at 0900, Until Discontinued, Continue if NPO. DO NOT mix with other insulins -- Do not mix with other insulins -- NOTE: This is a HIGH ALERT Medication. Given 08/21/2018 20 Units Arm, Right 08:12 CDT Given 08/21/2018 20 Units Arm, Left 21:55 CDT insulin glargine (LANTUS SOLOSTAR, Given 08/22/2018 25 Units Abdomen: RLQ BASAGLAR) injection PEN 25 Units 10:02 CDT 25 Units, Subcutaneous, TWICE DAILY, First dose on Tue08/22/18 at 0900, Until Discontinued, Continue if NPO. DO NOT mix with other insulins -- Do not mix with other insulins -- NOTE: This is a HIGH ALERT Medication. insulin glargine (LANTUS SOLOSTAR, Given 08/10/2018 30 Units Arm, Right BASAGLAR) injection PEN 30 Units 20:52 CDT 30 Units, Subcutaneous, AT BEDTIME DAILY, First dose on Tue08/10/18 at 2100, Until Discontinued, -- Do not mix with other insulins -- NOTE: This is a HIGH ALERT Medication. insulin NPH/REG 70/30 (NOVOLIN 70/30) Given 08/11/2018 20 Units Arm, Right injection 20 Units 19:21 CDT 20 Units, Subcutaneous, TWICE DAILY BEFORE MEALS, First dose on Tue08/11/18 at 1700, Until Discontinued, -- Do not mix with other insulins -- NOTE: This is a HIGH ALERT Medication. Given 08/12/2018 20 Units Abdomen:LLQ 07:29 CDT insulin NPH/REG 70/30 (NOVOLIN 70/30) Given 08/13/2018 30 Units Abdomen:RUQ injection 30 Units 07:05 CDT 30 Units, Subcutaneous, TWICE DAILY BEFORE MEALS, First dose on 08/12/18 at 1700, Until Discontinued, -- Do not mix with other insulins -- NOTE: This is a HIGH ALERT Medication. Given 08/13/2018 30 Units Arm, Left 17:31 CDT Given 08/14/2018 15 Units Arm, Left 07:26 CDT insulin regular (NOVOLIN R) 100 Units in Dose/Rate 08/09/2018 10 Units/ hr 10 mL/hr sodium chloride 0.9% (NS) 100 mL IV drip Change 09:28 CDT (std conc) 1-32 Units/hr (1-32 mL/hr) 100 mL, at 1-32 mL/hr, Intravenous, TITRATE DIRECTED , Starting Tue08/09/18 at 0500, Until Tue08/09/18 at 1445, CONTINUOUS INFUSION: For DKA patient - Start infusion immediately after insulin bolus has completed, if bolus was ordered. Run at 0.1 units/kg/hr until blood glucose is </=200 mg/dL, then decrease to 0.05 units/kg/hr. NOTE: This is a HIGH ALERT Medication. Dose/Rate Change 08/09/2018 7 Units/hr 7 mL/hr 10:34 CDT Dose/Rate Change 08/09/2018 2 Units/hr 2 mL/hr 11:41 CDT iopamidol 300 (ISOVUE-300) injection 220 Given 08/18/2018 220 mL mL 14:47 CDT 220 mL, Intra-arterial, ONCE, 1 dose, Tue08/21/18 at 0700, NOTE: This is a HIGH ALERT Medication. iopamidol 370 (ISOVUE-370) injection 100 Given 08/09/2018 100 mL mL 07:45 CDT 100 mL, Intravenous, ONCE, 1 dose, Tue08/09/18 at 0745, NOTE: This is a HIGH ALERT Medication. ketorolac (TORADOL) injection 30 mg Given 08/18/2018 30 mg 30 mg, Intravenous, ONCE, 1 dose, Tue 16:04 CDT 08/18/18 at 1500 ketorolac (TORADOL) injection Given 08/18/2018 30 mg INTRA-PROCEDURE MED, Starting Tue 17:29 CDT 08/18/18 at 1729, Until Discontinued leuprolide 3 month (LUPRON DEPOT) Given 08/16/2018 11.25 mg Gluteal, injection 11.25 mg 21:00 CDT Left 11.25 mg, Intramuscular, ONCE, 1 dose, Tue08/16/18 at 1800, NURSING: For IM administration only. NOTE: This is a HIGH ALERT Medication. lisinopril (PRINIVIL; ZESTRIL) tablet Given 08/12/2018 2.5 mg 2.5 mg 08:45 CDT 2.5 mg, Oral, DAILY, First dose on Tue08/09/18 at 0900, Until Discontinued Given 08/13/2018 2.5 mg 08:03 CDT Given 08/14/2018 2.5 mg 08:18 CDT medroxyprogesterone (proVERA) tablet 10 Given 08/21/2018 10 mg mg 08:11 CDT 10 mg, Oral, TWICE DAILY, First dose on Tue08/11/18 at 1300, Until Discontinued Given 08/21/2018 10 mg 21:51 CDT Given 08/22/2018 10 mg 08:42 CDT melatonin tablet 5 mg Given 08/19/2018 5 mg 5 mg, Oral, ONCE, 1 dose, 08/19/18 at 01:00 CDT 0100 methocarbamol (ROBAXIN) tablet 750 mg Given 08/21/2018 750 mg 750 mg, Oral, EVERY 8 HOURS, First dose 21:46 CDT on Tue08/18/18 at 1600, Until Discontinued Given 08/22/2018 750 mg 03:25 CDT Given 08/22/2018 750 mg 13:32 CDT midazolam (VERSED) injection 1 mg Given 08/18/2018 1 mg 1 mg, Intravenous, ONCE, 1 dose, Tue 15:49 CDT 08/18/18 at 1500 midazolam (VERSED) injection Given 08/18/2018 1 mg INTRA-PROCEDURE MED, Starting Tue 16:06 CDT 08/18/18 at 1606, Until Discontinued Given 08/18/2018 0.5 mg 16:56 CDT Given 08/18/2018 0.5 mg 17:14 CDT naloxone (NARCAN) injection 0.08 mg 0.08 mg, Intravenous, NEEDED, Starting Tue08/18/18 at 1553, Until Tue08/22/18 at 2343, Respiratory Depression, -FOR RESPIRATORY RATE <7/MIN: Dilute one ampule naloxone 0.4 mg in 9 mL NS for injection (for a total of 10 mL of dilution). Inject 2 mL of diluted naloxone q 2 minutes until respiratory rate improves (RR >7/min) and/or drowsiness abates. Call physician. -IF PATIENT IS APNEIC: Give naloxone 0.4 mg q 2 minutes until respiratory rate improves (RR >7/min) and call Rapid Response Team. nitroglycerin(#) injection Given 08/18/2018 100 mcg INTRA-PROCEDURE MED, Starting Tue 16:23 CDT 08/18/18 at 1623, Until Discontinued ondansetron (ZOFRAN) injection 4 mg Given 08/18/2018 4 mg 4 mg, Intravenous, EVERY 6 HOURS PRN, 14:41 CDT Starting Tue08/18/18 at 1344, Until Tue08/22/18 at 2343, Nausea/Vomiting Injectable oxyCODONE (ROXICODONE, OXY-IR) tablet Given 08/18/2018 5 mg 2.5-5 mg 04:59 CDT 2.5-5 mg, Oral, EVERY 4 HOURS PRN, Starting Tue08/16/18 at 1036, Until Tue08/18/18 at 1453, Pain PO Given 08/18/2018 5 mg 09:22 CDT Given 08/18/2018 5 mg 14:40 CDT oxyCODONE (ROXICODONE, OXY-IR) tablet Given 08/09/2018 10 mg 5-10 mg 05:39 CDT 5-10 mg, Oral, EVERY 12 HOURS PRN, Starting Tue08/09/18 at 0445, Until Tue08/09/18 at 1257, Pain with Dressing Changes/Procedure oxyCODONE (ROXICODONE, OXY-IR) tablet Given 08/09/2018 10 mg 5-10 mg 13:20 CDT 5-10 mg, Oral, ONCE PRN, 1 dose, Starting Tue08/09/18 at 1220, Until Tue08/09/18 at 2359, Pain PO, For Pain Score <4, PACU (only) oxyCODONE (ROXICODONE, OXY-IR) tablet Given 08/13/2018 10 mg 5-10 mg 21:50 CDT 5-10 mg, Oral, EVERY 4 HOURS PRN, Starting Tue08/09/18 at 1357, Until Tue08/14/18 at 1124, Pain PO Given 08/14/2018 10 mg 01:43 CDT Given 08/14/2018 10 mg 08:24 CDT oxyCODONE (ROXICODONE, OXY-IR) tablet Given 08/22/2018 10 mg 5-10 mg 05:16 CDT 5-10 mg, Oral, EVERY 3 HOURS PRN, Starting Tue08/18/18 at 1451, Until Tue08/22/18 at 2343, Pain PO Given 08/22/2018 10 mg 08:36 CDT Given 08/22/2018 10 mg 13:34 CDT oxyCODONE (ROXICODONE, OXY-IR) tablet Given 08/16/2018 7.5 mg 5-7.5 mg 01:16 CDT 5-7.5 mg, Oral, EVERY 4 HOURS PRN, Starting Tue08/14/18 at 1200, Until Tue08/16/18 at 1036, Pain PO Given 08/16/2018 7.5 mg 05:27 CDT Given 08/16/2018 7.5 mg 09:37 CDT perflutren lipid microspheres (DEFINITY) Given 08/10/2018 1.5 Diluted injection 1-20 Diluted mL 10:39 CDT mL 1-20 Diluted mL, Intravenous, ONCE, 1 dose, Yesica 08/10/18 at 1015, NOTE: This is a HIGH ALERT Medication. polyethylene glycol 3350 (MIRALAX) Given 08/12/2018 17 g packet 17 g 20:25 CDT 17 g (1 packet), Oral, TWICE DAILY, First dose on Yesica 08/10/18 at 1115, Until Discontinued, 8.5 GRAMS=0.5 PACKET 17 GRAMS=1 PACKET 34 GRAMS=2 PACKETS Given 08/13/2018 17 g 08:04 CDT Given 08/13/2018 17 g 20:21 CDT senna/docusate (SENOKOT-S) tablet 1 Given 08/13/2018 1 tablet tablet 08:03 CDT 1 tablet, Oral, TWICE DAILY, First dose on Yescia 08/10/18 at 1215, Until Discontinued, Hold for loose stools Given 08/13/2018 1 tablet 20:21 CDT Given 08/14/2018 1 tablet 08:17 CDT sodium chloride PF 0.9% injection 50 mL Given 08/09/2018 50 mL 50 mL, Intravenous, ONCE, 1 dose, Tue 07:45 CDT 08/09/18 at 0745, Intra-procedure (IR) sodium polystyrene sulfonate Given 08/12/2018 15 g (KAYEXALATE) oral suspension 15 g 12:33 CDT 15 g, Oral, ONCE, 1 dose, 08/12/18 at 1145 sodium polystyrene sulfonate Given 08/13/2018 15 g (KAYEXALATE) oral suspension 15 g 10:22 CDT 15 g, Oral, ONCE, 1 dose, 08/13/18 at 0915 spironolactone (ALDACTONE) tablet 25 mg Given 08/11/2018 25 mg 25 mg, Oral, DAILY, First dose on Fri 08:49 CDT 08/11/18 at 0900, Until Discontinued, NURSING: Please educate patient and document: Avoid using salt substitutes which have a high potassium content (Nu-Salt). vancomycin (VANCOCIN) 1,000 mg in Given - New 08/09/2018 1,000 mg 250 mL/hr dextrose 5% (D5W) 250 mL IVPB ([id number]) Bag 05:57 CDT 1,000 mg (rounded from 1,029 mg=15 mg/kg 68.6 kg), Intravenous, 250 mL, Administer over 60 Minutes, EVERY 12 HOURS, First dose on Tue08/09/18 at 0545, Until Discontinued, Note Pharmacokinetic Monitoring: Please record infusion start time (Action=Given) and stop time (Action=Completed) of dose when blood levels are drawn. Given - New Bag 08/09/2018 1,000 mg 250 mL/hr 17:51 CDT Given - New Bag 08/10/2018 1,000 mg 250 mL/hr 06:49 CDT vitamin A & D topical ointment Given 08/16/2018 60 g Topical, NEEDED, Starting Tue08/16/18 23:00 CDT at 1443, Until Tue08/22/18 at 2343, Other..., Apply vitamin A&D ointment to wound base and cover with a Biatain foam, Apply vitamin A&D ointment to wound base and cover with a Biatain foam Given 08/17/2018 60 g 02:00 CDT Given 08/17/2018 60 g 05:16 CDT vitamins, multi w/minerals tablet 1 Given 08/21/2018 1 tablet tablet 18:55 CDT 1 tablet, Oral, DAILY, First dose on 08/21/18 at 1715, Until Discontinued Given 08/22/2018 1 tablet 08:35 CDT in this encounter
--- OUTSIDE RECORDS SUMMARY | 2018-09-06 04:41 | XMS REPORT | Encounter Summary ---
Author Author [facility] Organization [facility] Address Unknown Phone Unavailable Care Team Providers Care Liberal Arts Teacher Name Role Phone Dave Lorenzana MD PCP Reason for Visit * Auth/Cert Status Reason Specialty Diagnoses / Referred By Referred To Procedures Contact Contact Diagnoses DKA (diabetic ketoacidoses) (HCC) LV (left ventricular) mural thrombus without GA dka Encounter Details Date Type Department Care Team Description 08/09/2018 Anesthesia Main Operating Room Heladio Platt MD Event [facility] 2nd fl [address] [place] [address] [place] [address] [phone] Anesthesia Record Procedure Name Responsible Anesthesia Start Time Anesthesia Stop Time Anesthesiologist LEFT FEMORAL Sol Arteaga MD 08/09/18 0831 08/09/18 1243 THROMBECTOMY, RIGHT POPLITEAL AND TIBIAL THROMBECTOMY (Bilateral ) Date Time Event Comment 753 AN Equip Check 2018 08 Art Line 0830 Out of Pre Procedure 0831 Anes Start 0833 In Room 0838 An Start Data 0842 An Induction The patient was reevaluated immediately before moderate or deep sedation use and before anesthesia induction. 0847 An Intubation 0849 Anesthesia Ready 0906 Proc Start 0928 Quick Note BG - 219 1034 Quick Note BG -139 1141 Quick Note BG - 80 1229 An Extubation 1230 Quick Note BG -64 1235 an stop data 1242 Handoff to RN I completed my SBAR handoff to the receiving nurse. 1243 An Stop Meds Name Total midazolam (VERSED) 1 mg/mL injection 2 mg fentaNYL PF (SUBLIMAZE) injection 150 mcg lidocaine (2%) 200 mg/10mL Injection 80 mg syringe propofol (DIPRIVAN) 200 mg/ 20 mL 50 mg injection (VIAL) rocuronium (ZEMURON) injection 50 mg ondansetron (ZOFRAN) injection 4 mg sugammadex (BRIDION) 100 mg/mL iv soln 140 mg insulin regular (NOVOLIN R) 100 Units in 27.18 Units sodium chloride 0.9% (NS) 100 mL IV drip (std conc) phenylephrine (LINDA-SYNEPHRINE) 10 mg in 10.65 mg sodium chloride 0.9% (NS) 250 mL IV drip (std conc) heparin (porcine) 1,000 units/mL 9,000 Units injection potassium chloride 10 mEq/50 mL IVPB 10 mEq electrolyte-A (PLASMA-LYTE A PH 7.4) 1,000 mL infusion electrolyte-A (PLASMA-LYTE A PH 7.4) 1,000 mL infusion * Name O2 N2O Inspired N2O Sevoflurane Desflurane Inspired Desflurane Inspired Sevoflurane * Name Total DELIVER/TRANSFUSE RBCS (INTRAOP) 350 mL Type Details Placement Removal Wounds 04/11/18; 0000; Left, Right; Buttocks; 04/11/18 0000 by Jamel, (NOT for Blister; blisters all over bilat NELLY Sorto Pressure buttocks Injuries) Peripheral 04/11/18; 0317; RN; R; Forearm; 22 G 04/11/18 0317 by ASHUTOSH Mccullough RN Wounds 04/11/18; 0920; Lower; Abdomen (panus); 04/11/18 0920 by Vineet, (NOT for Moisture Associated Skin Damage NELLY Marshall Pressure Injuries) Wounds 04/12/18; 1125; Lower, Medial; Abdomen; 04/12/18 1125 by Juliet, (NOT for Ulcer (not from pressure); from old NELLY Stuart Pressure Injuries) Wounds 08/09/18; 1219; Right; Leg; Surgical 08/09/18 1219 by Nirmal, (NOT for Incision; CLOSED WITH SUTURE AND NELLY Roldan Pressure DERMABOND. Injuries) Indwelling Present on Admission; 16 FR; Regular 08/09/18 0604 by 1035 by Frame, Urinary (Two-way); 08/11/18; 1035 NELLY Nunez Catheter Peripheral 08/08/18; PreHospital Outside Facility; 08/08/18 0000 by Odell, 08/10/18 1345 by Latif, IV R; Antecubital; 20 G; Symptomatic NELLY Gutiérrez RN (phlebitis, pain, leaking, infiltration); 08/10/18; 1345 Peripheral 08/09/18; 0603; R; Wrist; 22 G; 08/09/18 0603 by Odell, 0559 by Odell, IV 08/10/18; 0559 NELLY Gutiérrez RN Peripheral 08/09/18; 0740; RN; L; Hand; 22 G; 1; 08/09/18 0740 by 1328 by IV 08/09/18; 1328 (not present upon arrival Fernando Plaza RN Armintrout, Nichole, RN to PACU) Arterial 08/09/18; 0813 (created via procedure 08/09/18 0813 by Gayam, 08/09/18 1400 by Line documentation); L; Radial; 20 G; MD Marietta Gonzalez Nichole, RN 08/09/18; 1400 ETT 08/09/18; 0847; Ventilated by mask (1); 08/09/18 0847 by Lathon, 11/14 1229 by Lathon, Direct laryngoscopy, Stylet; Patrick COMPOSITION ROOFER Patrick, COMPOSITION ROOFER Single-Lumen, Cuffed; 7.5mm; Mac; 3; Oral; 1-Full view of the glottis; 1 insertion attempt; Auscultation, ETCO2 Detector; 21 centimeters; 08/09/18; 1229 Negative 08/09/18; 1217; Left, Upper; Leg; 1; 08/09/18 1217 by Nirmal, 08/18/18 0000 by Kwame, Pressure 08/18/18 NELLY Roldan RN Therapy Drain Peripheral 08/09/18; 1238 (present upon arrival to 08/09/18 1238 by 1000 by ASHUTOSH Latif PACU); L; Hand; 18 G; Symptomatic Heidy Mcmanus RN Kathleen, RN (phlebitis, pain, leaking, infiltration); 08/10/18; 1000 Peripheral 08/09/18; 1238 (present upon arrival to 08/09/18 1238 by 1000 by ASHUTOSH Latif PACU); R; Hand; 22 G; Symptomatic ArmHeidy guthrie, NELLY Phillip RN (phlebitis, pain, leaking, infiltration); 08/10/18; 1000 in this encounter Social History Tobacco Use Types Packs/Day Years Used Date Current Every Day Smoker Cigarettes 1 20 Smokeless Tobacco: Never Used Alcohol Use Drinks/Week oz/Week Comments No Sex Assigned at Date Recorded Not on file as of this encounter Functional Status Functional Status Response Date of Assessment Does the patient have a hearing impairment: No 04/11/2018 as of this encounter OR Notes * Anesthesia Procedure Notes - Anand Verde MD - 08/09/2018 8:13 AM CDT Associated Order(s): ANESTHESIA ARTERIAL LINE INSERTION Anesthesia Procedure: Arterial Line Placement A-LINE INSERTION [...] Performed by: ANAND VERDE Authorized by: SOL ARTEAGA Associated attestation - Sol Arteaga MD - 08/09/2018 10:34 AM CDT Formatting of this note may be different from the original. ATTESTATION I was present during the entire procedure performed by a resident. Staff name: Sol Arteaga MD Date: 08/09/2018 * Anesthesia Preprocedure Evaluation - Sol Arteaga MD - 08/09/2018 7:45 AM CDT Formatting of this note may be different from the original. Anesthesia Pre-Procedure Evaluation Name: Betina Baron : 1970 Age: 48 y.o. Sex : female Procedure Date: 08/09/2018 Procedure: Procedure(s): THROMBECTOMY ARTERIAL/ VENOUS GRAFT 48-year-old female with past medical history of polysubstance abuse, uncontrolled diabetes, left ventricular thrombus comes in as outside hospital transfer with chief complaint of left-sided and right-sided pain and noticed to be in DKA, multiple emboli including splenic emboli, renal artery emboli, left femoral artery thrombus with complete occlusion. Physical Assessment Vital Signs (last filed in past 24 hours): BP: 106/61 (08/09 402) Temp: 38.2 C (100.7 F) (08/09 402) Pulse: 93 (08/09 500) Respirations: 18 PER MINUTE (08/09 500) SpO2: 97 % (08/09 500) O2 Delivery: None (Room Air) (08/09 500) Height: 180.3 cm (71") (08/09 400) Weight: 68.6 kg (151 lb 3.8 oz) (08/09 400) Patient History Allergies Allergen Reactions Pcn [Penicillins] HIVES, RASH and SHORTNESS OF BREATH Current Medications Medication Directions aspirin EC 81 mg tablet Take 1 [...] tablet Take 1 tablet by mouth daily. metFORMIN (GLUCOPHAGE) 500 mg tablet Take 500 [...] 1 tablet by mouth at bedtime daily. Review of Systems/Medical History Airway - negative Pulmonary Current smoker No shortness of breath Cardiovascular Recent diagnostic studies: echocardiogram Echo 04/11/2018 Interpretation Summary 1. Moderately dilated LV with [...] size. Ordering provider notified by text page. CHF GI/Hepatic/Renal No GERD, No renal disease Electrolyte problem (Na 126) Neuro/Psych No CVA Substance abuse Chronic opioid use Chronic benzodiazepine use Psychiatric history Musculoskeletal - negative Endocrine/Other Diabetes, poorly controlled, type 2; using insulin Anemia (hgb 7.8) Plts 253 Na 126 Glucose 348 Physical Exam Airway Findings Mallampati: I TM distance: >3 FB Neck ROM: full Mouth opening: good Airway patency: adequate Dental Findings: Poor dentition Cardiovascular Findings: Rhythm: regular Rate: normal Pulmonary Findings: Breath sounds clear to auscultation. Abdominal Findings: Not obese Neurological Findings: Negative Diagnostic Tests Hematology: Lab Results Component Value Date HGB 7.8 08/09/2018 HCT 26.0 08/09/2018 PLTCT 253 08/09/2018 WBC 22.4 08/09/2018 NEUT 63 04/18/2018 ANC 3.80 04/18/2018 LYMPH 18 04/13/2018 ALC 1.30 04/18/2018 SUPRIYA 10 04/18/2018 AMC 0.60 04/18/2018 EOSA 4 04/18/2018 ABC 0.00 04/18/2018 MCV 67.9 08/09/2018 MCH 20.4 08/09/2018 MCHC 30.0 08/09/2018 MPV 8.6 08/09/2018 RDW 31.7 08/09/2018 General Chemistry: Lab Results Component Value Date NA 126 08/09/2018 K 4.5 08/09/2018 CL 96 08/09/2018 CO2 20 08/09/2018 GAP 10 08/09/2018 BUN 22 08/09/2018 CR 0.89 08/09/2018 GLU 348 08/09/2018 CA 8.4 08/09/2018 ALBUMIN 3.1 04/18/2018 LACTIC 1.3 08/09/2018 MG 1.7 04/18/2018 TOTBILI 0.4 04/18/2018 PO4 3.2 04/11/2018 Coagulation: Lab Results Component Value Date PTT 21.7 08/09/2018 INR 1.2 04/18/2018 Anesthesia Plan ASA score: 3 emergent Plan: general and invasive monitoring Induction method: intravenous NPO status: waived due to emergency Informed Consent Anesthetic plan and risks discussed with patient. Use of blood products discussed with patient Blood Consent: consented Plan discussed with: anesthesiologist and COMPOSITION ROOFER. in this encounter Plan of Treatment Not on fileas of this encounter Results * ANESTHESIA ARTERIAL LINE INSERTION (08/09/2018 8:13 [...] Performed by: ANAND VERDE Authorized by: SOL ARTEAGA in this encounter Visit Diagnoses Not on filein this encounter Administered Medications Medication Order MAR Action Action Date Dose Rate Site DELIVER & TRANSFUSE RED BLOOD CELLS Given - New 08/09/2018 (INTRAOP ONLY) Bag 09:28 CDT STAT, On Tue08/09/18 at 0931, Lab Results Component Value Date HGB 7.8 (L) 08/09/2018 electrolyte-A (PLASMA-LYTE A PH 7.4) Given - New 08/09/2018 injection Bag 08:30 CDT INTRA-PROCEDURE MED(CONT), Starting Tue08/09/18 at 0830, Until Discontinued, Anesthesia Intra-op electrolyte-A (PLASMA-LYTE A PH 7.4) Given - New 08/09/2018 injection Bag 08:44 CDT INTRA-PROCEDURE MED(CONT), Starting Tue08/09/18 at 0844, Until Discontinued, Anesthesia Intra-op Given - New Bag 08/09/2018 11:51 CDT fentaNYL citrate PF (SUBLIMAZE) Given 08/09/2018 100 mcg injection 08:42 CDT INTRA-PROCEDURE MED, Starting Tue08/09/18 at 0842, Until Discontinued, Pain Injectable, Anesthesia Intra-op Given 08/09/2018 50 mcg 12:16 CDT heparin (porcine) injection Given 08/09/2018 7,000 Units INTRA-PROCEDURE MED, Starting Tue 09:49 CDT 08/09/18 at 0949, Until Discontinued, Anesthesia Intra-op Given 08/09/2018 2,000 Units 11:03 CDT insulin regular (NOVOLIN R) 100 Units [...] 08/09/2018 2 Units/hr 2 mL/hr 11:41 CDT lidocaine (PF) injection Given 08/09/2018 80 mg INTRA-PROCEDURE MED, Starting Tue 08:42 CDT 08/09/18 at 0842, Until Discontinued, Anesthesia Intra-op midazolam (VERSED) injection Given 08/09/2018 2 mg Intravenous, INTRA-PROCEDURE MED, 08:29 CDT Starting Tue08/09/18 at 0829, Until Discontinued, Agitation Injectable, Anxiety Injectable, Anesthesia Intra-op ondansetron (ZOFRAN) injection Given 08/09/2018 4 mg Intravenous, INTRA-PROCEDURE MED, 11:57 CDT Starting Tue08/09/18 at 1157, Until Tue08/09/18 at 1248, Nausea/Vomiting Injectable, Anesthesia Intra-op phenylephrine (LINDA-SYNEPHRINE) 10 mg in Given - New 08/09/2018 0.75 77.2 mL/hr sodium chloride 0.9% (NS) 250 mL IV drip Bag 08:48 CDT mcg/kg/min (std conc) 250 mL, INTRA-PROCEDURE MED(CONT), Starting Tue08/09/18 at 0848, Until Discontinued, Anesthesia Intra-op potassium chloride in water IVPB Given 08/09/2018 10 mEq Administer over 60 Minutes, 11:34 CDT INTRA-PROCEDURE MED, Starting Tue08/09/18 at 1134, Until Tue08/09/18 at 1248, Anesthesia Intra-op propofol (DIPRIVAN) injection Given 08/09/2018 50 mg INTRA-PROCEDURE MED, Starting Tue 08:42 CDT 08/09/18 at 0842, Until Discontinued, Anesthesia Intra-op rocuronium (ZEMURON) injection Given 08/09/2018 40 mg Intravenous, INTRA-PROCEDURE MED, 08:42 CDT Starting Tue08/09/18 at 0842, Until Discontinued, Anesthesia Intra-op Given 08/09/2018 10 mg 09:44 CDT sugammadex (BRIDION) injection Given 08/09/2018 140 mg Intravenous, INTRA-PROCEDURE MED, 12:20 CDT Starting Tue08/09/18 at 1220, Until Tue08/09/18 at 1248, Anesthesia Intra-op in this encounter
--- OUTSIDE RECORDS SUMMARY | 2018-09-06 04:41 | XMS REPORT | Encounter Summary ---
Author Author [facility] Organization [facility] Address Unknown Phone Unavailable Care Team Providers Care Exceptional Student Education Teacher Name Role Phone Dave Lorenzana MD PCP Encounter Details Date Type Department Care Team Description 08/16/2018 Orders Only Infusion Therapy Clinic - Branden Torres MD [facility] [address] [facility] [address] [place] [address] [place] [address] [phone] Social History Tobacco Use Types Packs/Day Years [...]
--- OUTSIDE RECORDS SUMMARY | 2018-09-06 04:41 | XMS REPORT | Encounter Summary ---
Author Author [facility] Organization [facility] Address Unknown Phone Unavailable Care Team Providers Care Treater Helper Name Role Phone Dave Lorenzana MD PCP Reason for Visit * Auth/Cert Status Reason Specialty Diagnoses / Referred By Referred To Procedures Contact Contact Diagnoses DKA (diabetic ketoacidoses) (HCC) LV (left ventricular) mural thrombus without IN dka Encounter Details Date Type Department Care Team Description 08/14/2018 Anesthesia [facility] Cardiology Melchor Goss MD Event [id number] [place] [address] [place] [address] [phone] Anesthesia Record Procedure Name Responsible Anesthesia Start Time Anesthesia Stop Time Anesthesiologist TRANSESOPHAGEAL Melchor Goss MD 08/14/18 1423 08/14/18 1524 ECHOCARDIOGRAM Date Time Event Comment 1338 AN Equip Check 2017 1423 Anes Start 1423 An Start Data 1423 Start Supplemental O2 1423 Anesthesia Ready 1438 Quick Note IV infiltated. Dr Goss placed a 20 g R wrist. N Aylor , unable to thread IV on R wrist 1523 an stop data 1524 Handoff to RN I completed my SBAR handoff to the receiving nurse. 1524 An Stop Meds Name Total lidocaine (2%) 200 mg/10mL Injection 50 mg syringe propofol (DIPRIVAN) 200 mg/ 20 mL 100 mg injection (VIAL) propofol (DIPRIVAN) infusion 294.55 mg phenylephrine (LINDA-SYNEPHRINE) 0.1 mg/mL 800 mcg injection syr sodium chloride 0.9 % infusion (500 400 mL mL bag) * Name O2 * No blood administrations on file. Type Details Placement Removal Wounds 04/11/18; 0000; Left, Right; Buttocks; 04/11/18 0000 by Jamel, (NOT for Blister; blisters all over bilat NELLY Sorto Pressure buttocks Injuries) Peripheral 04/11/18; 0317; RN; R; Forearm; 22 G 04/11/18 0317 by Jamel IV NELLY Sorto Wounds 04/11/18; 0920; Lower; Abdomen (panus); 04/11/18 0920 by Vineet, (NOT for Moisture Associated Skin Damage NELLY Marshall Pressure Injuries) Wounds 04/12/18; 1125; Lower, Medial; Abdomen; 04/12/18 1125 by Juliet, (NOT for Ulcer (not from pressure); from nanette Stuart RN Pressure Injuries) Wounds 08/09/18; 1219; Right; Leg; Surgical 08/09/18 1219 by Nirmal, (NOT for Incision; CLOSED WITH SUTURE AND NELLY Roldan Pressure DERMABOND. Injuries) Wounds 08/09/18; 1651; Right; Thigh 08/09/18 1651 by (NOT for Fernando Plaza RN Pressure Injuries) Wounds 08/09/18; 1655; Ischium; Moisture 08/09/18 1655 by (NOT for Associated Skin Damage Fernando Plaza RN Pressure Injuries) Wounds 08/09/18; 1700; Buttocks; (5 open 08/09/18 1700 by (NOT for wounds and multiple pink spots) Fernando Plaza RN Pressure Injuries) Negative 08/09/18; 1217; Left, Upper; Leg; 1; 08/09/18 1217 by Nirmal, 08/18/18 0000 by Kwame, Pressure 08/18/18 NELLY Roldan RN Therapy Drain Peripheral 08/10/18; 1319; IV Therapy; R; Upper 08/10/18 1319 by Mots, 08/15/18 1325 by ASHUTOSH Simmons Arm; 20 G; No; Ultrasound (labs drawn); NELLY Forman RN 1; 1.25 inches; Symptomatic (phlebitis, pain, leaking, infiltration); 08/15/18; 1325 Peripheral 08/11/18; 0900; RN; R; Posterior; 08/11/18 0900 by Savita, 1326 by ASHUTOSH Simmons Forearm; 20 G; 1; 08/15/18; 1326 NELLY Nunez RN in this encounter Social History Tobacco Use [...] of this encounter OR Notes * Anesthesia Postprocedure Evaluation - Melchor Goss MD - 08/14/2018 3:57 PM CDT Post-Anesthesia Evaluation Name: Betina Baron : 1970 Age: 48 y.o. Sex : female Procedure Date: 08/14/2018 Procedure: * No procedures listed * Surgeon: * No surgeons listed * Post-Anesthesia Vitals BP: 113/91 (08/14 1535) Pulse: 78 (08/14 1540) Respirations: 20 PER MINUTE (08/14 1535) O2 Delivery: None (Room Air) (08/14 1535) SpO2 Pulse: 96 (08/14 1535) Height: 180.3 cm (71") (08/14 1515) Post Anesthesia Evaluation Note Evaluation location: Pre/Post Patient participation: recovered; patient participated in evaluation Level of consciousness: alert Pain score: 4 Pain management: adequate Hydration: normovolemia Temperature: 36.0C - 38.4C Airway patency: adequate Perioperative Events Post-op nausea and vomiting: no PONV Postoperative Status Cardiovascular status: hemodynamically stable Respiratory status: spontaneous ventilation Follow-up needed: none Perioperative Events Perioperative Event: No Emergency Case Activation: No * Anesthesia Preprocedure Evaluation - Melchor Goss MD - 08/14/2018 1:40 PM CDT Formatting of this note may be different from the original. Anesthesia Pre-Procedure Evaluation Name: Betina Baron : 1970 Age: 48 y.o. Sex : female Procedure Date: 08/14/2018 Procedure: PATRIA r/o sepsis 48-year-old female with past medical history of polysubstance abuse, uncontrolled diabetes, left ventricular thrombus comes in as outside hospital transfer with chief complaint of left-sided and right-sided pain and noticed to be in DKA, multiple emboli including splenic emboli, renal artery emboli, left femoral artery thrombus with complete occlusion. Physical Assessment Vital Signs (last filed in past 24 hours): BP: 92/56 (08/14 1250) Temp: 37.3 C (99.2 F) (08/14 125) Pulse: 76 (08/14 125) Respirations: 14 PER MINUTE (08/14 1250) SpO2: 96 % (08/14 1250) O2 Delivery: None (Room Air) (08/14 1250) Patient History Allergies Allergen Reactions Pcn [Penicillins] HIVES, RASH and SHORTNESS OF BREATH Current Medications Medication Directions aspirin EC 81 mg tablet Take 1 tablet by mouth daily. Take with food. atorvastatin (LIPITOR) 40 mg tablet Take 40 mg by mouth daily. atorvastatin (LIPITOR) 80 mg tablet Take 1 [...] daily. warfarin (COUMADIN) 7.5 mg tablet Take 15mg on Tuesday, Tuesday, and Tuesday. Take 7.5mg on Tuesday, Tuesday, , Tuesday. warfarin (COUMADIN) 7.5 mg tablet Take 1 tablet by mouth at bedtime daily. Review of Systems/Medical History PONV Screening: Female gender No history of anesthetic complications Airway - negative Pulmonary Current smoker No shortness of breath Cardiovascular Recent diagnostic studies: echocardiogram Exercise tolerance: <4 METS (wheel chair only, LLE BKA) Beta Charisse therapy: Yes Beta blockers within 24 hours: Yes CHF; NYHA Classification: III Dyspnea on exertion On 08/09/2018 pt had a Left femoral thrombectomy and a right popliteal and tibial thrombectomy Interpretation Summary Moderate to severely decreased global LV contractility: LV ejection fraction ~ 30%. Apical LV akinesis with large mobile apical thrombus. Mild eccentric LV hypertrophy. Normal RV contractility. Moderate left atrial dilatation. Mild atrial dilatation. Markedly elevated central venous pressure (>15 mm Hg). Aortic arch not well visualized. Normal valvular structures. Trace tricuspid and pulmonic regurgitation. On the prior study there was trace aortic, mild pulmonic, and mild to moderate tricuspid regurgitation. PA pressure could not be estimated on this study. On the prior study PA pressure was estimated be 53 mmHg. Interpretation Summary Moderate to severely decreased global LV contractility: LV ejection fraction ~ 30%. Apical LV akinesis with large mobile apical thrombus. Mild eccentric LV hypertrophy. Normal RV contractility. Moderate left atrial dilatation. Mild atrial dilatation. Markedly elevated central venous pressure (>15 mm Hg). Aortic arch not well visualized. Normal valvular structures. Trace tricuspid and pulmonic regurgitation. On the prior study there was trace aortic, mild pulmonic, and mild to moderate tricuspid regurgitation. PA pressure could not be estimated on this study. On the prior study PA pressure was estimated be 53 mmHg. 07/2018 EF 30 pwecent GI/Hepatic/Renal No GERD, No renal disease Electrolyte problem (Na 126, hyperkalemia 5.1) Splenic and renal emboli Neuro/Psych No CVA Substance abuse Chronic opioid use Chronic benzodiazepine use Psychiatric history Musculoskeletal - negative LLE BKA, ambulates via wheelchair Endocrine/Other Diabetes, poorly controlled, type 2; using insulin Anemia (hgb 7.2, decreased from 8.0 08/13 post 1u PRBC. Has required 3u PRBC this admission. Uterine bleeding, fibroids) Physical Exam Airway Findings Mallampati: I TM distance: >3 FB Neck ROM: full Mouth opening: good Airway patency: adequate Dental Findings: Poor dentition Cardiovascular Findings: Rhythm: regular Rate: normal Pulmonary Findings: Breath sounds clear to auscultation. Abdominal Findings: Not obese Neurological Findings: Negative Diagnostic Tests Hematology: Lab Results Component Value Date HGB 7.2 08/14/2018 HCT 23.7 08/14/2018 PLTCT 257 08/14/2018 WBC 9.6 08/14/2018 NEUT 73 08/14/2018 ANC 7.00 08/14/2018 LYMPH 18 04/13/2018 ALC 1.20 08/14/2018 SUPRIYA 9 08/14/2018 AMC 0.80 08/14/2018 EOSA 5 08/14/2018 ABC 0.10 08/14/2018 MCV 72.2 08/14/2018 MCH 21.8 08/14/2018 MCHC 30.2 08/14/2018 MPV 8.5 08/14/2018 RDW 32.1 08/14/2018 General Chemistry: Lab Results Component Value Date NA 131 08/14/2018 K 5.1 08/14/2018 CL 95 08/14/2018 CO2 30 08/14/2018 GAP 6 08/14/2018 BUN 21 08/14/2018 CR 0.95 08/14/2018 GLU 230 08/14/2018 CA 8.5 08/14/2018 ALBUMIN 2.7 08/14/2018 LACTIC 1.3 08/09/2018 MG 1.8 08/09/2018 TOTBILI 0.3 08/14/2018 PO4 2.7 08/09/2018 Coagulation: Lab Results Component Value Date PTT 21.9 08/10/2018 INR 1.1 08/09/2018 Anesthesia Plan ASA score: 3 Plan: MAC Induction method: intravenous NPO status: acceptable Informed Consent Anesthetic plan and risks discussed with patient. Use of blood products discussed with patient Blood Consent: consented Plan discussed with: anesthesiologist and AIR CONTROL/ANTI AIR WARFARE OFFICER. in this encounter Plan of Treatment Not on fileas of this encounter Visit Diagnoses Not on filein this encounter Administered Medications Medication Order MAR Action Action Date Dose Rate Site lidocaine (PF) injection Given 08/14/2018 50 mg INTRA-PROCEDURE MED, Starting Mon 14:25 CDT 08/14/18 at 1425, Until 08/14/18 at 1524, Anesthesia Intra-op phenylephrine in NS injection syringe Given 08/14/2018 100 mcg INTRA-PROCEDURE MED, Starting Mon 15:03 CDT 08/14/18 at 1507, Until 08/14/18 at 1524, Symptomatic Hypotension, Anesthesia Intra-op Given 08/14/2018 100 mcg 15:07 CDT Given 08/14/2018 100 mcg 15:15 CDT propofol (DIPRIVAN) infusion Given - New 08/14/2018 100 41.1 mL/hr 20 mL, Intravenous, INTRA-PROCEDURE Bag 14:30 CDT mcg/kg/min MED(CONT), Starting 08/14/18 at 1430, Until 08/14/18 at 1524, Anesthesia Intra-op propofol (DIPRIVAN) injection Given 08/14/2018 50 mg INTRA-PROCEDURE MED, Starting Mon 14:26 CDT 08/14/18 at 1426, Until 08/14/18 at 1524, Anesthesia Intra-op Given 08/14/2018 50 mg 14:29 CDT sodium chloride 0.9 % infusion Given - New 08/14/2018 INTRA-PROCEDURE MED(CONT), Starting Mon Bag 14:21 CDT 08/14/18 at 1421, Until 08/14/18 at 1524, Anesthesia Intra-op in this encounter
--- OUTSIDE RECORDS SUMMARY | 2018-09-06 04:41 | XMS REPORT | Encounter Summary ---
Author Author [facility] Organization [facility] Address Unknown Phone Unavailable Care Team Providers Care Metal Reclamation Kettle Tender Name Role Phone Dave Lorenzana MD PCP Encounter Details Date Type Department Care Team Description 08/09/2018 Procedure Pass Main Operating Room [facility] [address]nd fl [address] [place] [address] Social History Tobacco Use Types Packs/Day Years [...]
[2018-09-06] MEDS ORDERED: CEFEPIME INJECTION 1,000 MG in NS (IVPB) 50 ML IV ONE (04:45)
--- OUTSIDE RECORDS SUMMARY | 2018-09-06 04:46 | XMS REPORT | Encounter Summary ---
Author Author [facility] Organization [facility] Address Unknown Phone Unavailable Care Team Providers Care Regional Hr Manager Name Role Phone Dave Lorenzana MD PCP Reason for Visit * Auth/Cert Status Reason Specialty Diagnoses / Referred By Referred To Procedures Contact Contact Diagnoses DKA (diabetic ketoacidoses) (HCC) LV (left ventricular) mural thrombus without NM dka Encounter Details Date Type Department Care Team Description 08/09/2018 Surgery Main Operating Room Kim Mccarthy MD LEFT FEMORAL [facility] 2nd fl [address] THROMBECTOMY, RIGHT [address] [place] [address] [place] [address] THROMBECTOMY [phone] Social History Tobacco Use Types Packs/Day Years [...] 08/22/2018 Attending Physician: Chau Gomez MD Service: [facility] 6635 Physician Summary completed by: Chau Gomez MD Reason for hospitalization: comes in as outside hospital transfer with chief complaint of left-sided and right-sided pain and noticed to be in Diabetic ketoacidosis , multiple emboli including splenic emboli, renal artery emboli, left femoral artery thrombus with complete occlusion. Significant PMH: Past Medical History: Diagnosis Date DM (diabetes mellitus) ([facility]) Polysubstance abuse (HCC) Allergies: Pcn [penicillins] Admission Physical Exam notable [...] infarction of multiple organs. Originally diagnosed at [facility] in [place], [place]. She was diagnosed with an LV [...] C. Infectious Diseases contacted the hospital in [facility] to request records demonstrating staph aureus, enterococcus [...] cardiomyopathy) | Compensated, and improved since 04/11/18. 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 She notes cost-effective options at the [facility] in [place], [place] - called and they in fact have low-cost detemir and aspart. *Spoke with [facility] [phone] and they have inexpensive medications available: Insulin [...] Acute systolic CHF (congestive heart failure) ([facility]) LV (left ventricular) mural thrombus without NM Polysubstance abuse ([facility]) DM (diabetes mellitus) ([facility]) Bacteremia due to Gram-positive bacteria Moderate malnutrition ([facility]) Acute embolism and thombos unsp deep vn unsp lower extremity ([facility]) Surgical Procedures: None Significant Diagnostic Studies and [...] or concerns regarding your hospital stay. Call [phone] Discharging attending physician: CHAU GOMEZ [[id number]] Diabetic Diet You should eat between 1600 and 2000 calories per day. This is equal to 60g ( grams) of carbohydrates per meal, and 30g of carbohydrates for a bedtime snack. If you have questions about your diet after you go home, you can call a dietitian at [phone]. Additional Discharge Instructions Call your pcp and [...] CDT New Patient with Ravi Torres MD [facility] - OBGYN (UKP QLIKVIEW DEVELOPER) [facility] Level [address] [place] [id number] Pending items needing follow up: none Signed: Chau Gomez MD 08/22/2018 cc: Primary Care Physician: Dave Lorenzana Verified Referring physicians: Kim Guzmán DO Additional provider(s): in this encounter Discharge Instructions * Discharge Instr - Case Management - Tara Fields RN - 08/22/2018 3: 15 PM CDT Your Weekly labs should be obtained through the LAB DPT at [facility] ([phone]), with the orders for the labs provided to them through their OP Infusion Clinic ([phone]) where the orders were sent. Call the lab for their location and get them done every Tuesday for them to send to [facility] Infectious Disease Dept (info provided to them on their orders). * Discharge Instr - Appointments - Tara Fields RN - 08/22/2018 2:51 PM CDT Your IV Antibiotic will be administered once every two weeks at the [facility] located at: [address] [place] [id number] Your first appointment is 08/24/18 @ 1:45pm. (Arrive 30 minutes early before your first appointment and schedule the rest of your appointments with the medical appointment scheduler at the clinic before you leave.) You are to have your labs pulled at [facility] in [place], [place] and you need to call them as soon as possible to get scheduled. We have sent your orders for weekly labs while you are on your IV Antibiotics. Your Depo Lupron injection is to be administered by the same [facility] administered every three months as an intra muscular injection. Orders have been sent to them for this. If you have any problems with any of the above instructions you are welcome to call me for clarification. Tara Fields RN [phone] * Patient Instructions - Yasemin Garcia RN [...] related to the procedure, call for Tuesday-Tuesday 7-5. After-hours and weekends, please call [phone] and ask for the Interventional Loan Operations Manager on-call. The following attachments cannot be sent through Care Everywhere.* Activity Tips , Diabetes (UKRAINIAN) in this encounter Medications at Time of [...] 2017 tablet daily. insulin aspart U-100 Inject ten [...] Fisher RN - 08/22/2018 9:41 PM CDT 2126: Patient discharged to main entrance via wheelchair to private vehicle with all personal belongings. Patient transferred safely to [facility]. IV was removed , discharge paperwork in [...] infarction of multiple organs. Originally diagnosed at [facility] in [place], [place]. She was diagnosed with an LV [...] improving. Infectious Diseases contacted the hospital in [facility] to request records demonstrating staph aureus, enterococcus [...] cardiomyopathy) | Compensated, and improved since 04/11/18. 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 She notes cost-effective options at the [facility] in [place], [place] - called and they in fact have low-cost detemir and aspart. *Spoke with [facility] [phone] and they have inexpensive medications available: Insulin [...] to hold ACEI Cont furosemide and restart general internist and physician leader aldactone Continue current IV antibiotics: Daptomycin while [...] insulin glargine to 50U hs on discharge Rooke boot to RLE Patient is adamant to go home. Patient was explained To closely follow up with PCP . Go to nearest ER if she notices increased bleeding. Also she needs to come to OP infusion clinic every 2 weeks for abx. She needs weekly labs Follow up with pcp in 1 week with cbc and bmp >31 minutes in [id number] time spent with patient, patient/family counseling, coordination [...] BP: (85-127)/(48-75) I/Os from Yesterday's Shift 08/21 07 - 08/22 0700 In: 300 Out: 2350 [...] Screen NEG Electronic Crossmatch YES Unit Number [id number] Blood Component Type RBC,ADSOL,LEUKO REDUCED Unit Division 0 Status OF Unit TRANSFUSED Transfusion Status OK TO TRANSFUSE Crossmatch Result COMPATIBLE,ELECTRONIC Unit Number [id number] Blood Component Type RBC,ADSOL,LEUKO REDUCED Unit Division [...] 09/18/2018 1:30 PM Ravi Torres MD OBGYNCL [facility] QLIKVIEW DEVELOPER Daily Rounding Checklist Line necessity Fernández necessity Telemetry necessity PT/OT necessity DME needs evaluated and supplied Diet at highest level IV --> PO medications Teaching needs Pharmacy needs Wound care needs Planned D/C location (Home/LTAC/SNF/Rehab/Other) Chau Gomez MD 5381 * Aleyda Reeder, PT - 08/22/2018 9:32 AM CDT PHYSICAL [...] and would need a ryan walker). Called case repairer to discuss recommendations. Therapist: Aleyda Reeder, PT, DPT Date: 08/22/2018 * Ebony Angeles, OT - 08/22/2018 8:23 AM CDT OCCUPATIONAL THERAPY NOTE Followed up with patient this day, patient currently functioning at baseline, no difficulty with bed/chair level ADL and transfer. Patient expressed interest in working on short distance gait using walker. OT communicated the same with PT. Discharge recommendation: home Equipment recommendation: none Therapist: [place] [id number] Date: 08/22/2018 * Margie Lopez RN - 08/22/2018 6:13 AM CDT 0445 - Notified Dr Sergey uriostegui's Hgb 6.8. 1 unit PRBC ordered. * Denys Salvador MD - 08/21/2018 5:44 PM CDT Formatting of this note may be different from the original. Infectious Disease Progress Note Name: Betina Baron Today's Date: 08/21/2018 Assessment: 1. Uncontrolled diabetes - reportedly BG levels as high as 800s in recent past - last HgA1C on file at [facility] from 04/11/18 was 10.5 2. 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 BARRETT estimated creatinine clearance is [...] is a viable option. Bleeding management per POULTRY PATHOLOGIST __ Interval Hx Seen and examined. 08/18/18 [...] Oral Intake: Marginally Adequate Estimated Calorie Needs: 6804-6669 (28-30 kcals/kg per 68.6kg) Estimated Protein Needs: 86 (1.25 gm/kg per 68.6kg) Oral Diet Order: Cardiac, Diabetic 2951-4504 Kcal/day (75 g Carb/meal, 30 g Carb /HS snack) Comments: Betina Baron is a 48 y.o. female with a pmh of DM, polysubstance abuse, LV thrombus, CHF, L BKA, GLENNY who presented from an OSH in [facility] with splenic and renal artery [...] has been eating 100% of meals per metallurgist helper. Noted Pt's most recent weight is up [...] Ibrahim MS, RD, LD, [facility] Pager [phone] Office [phone] * Chau Gomez MD - 08/21/2018 11:15 [...] infarction of multiple organs. Originally diagnosed at [facility] in [place], [place]. She was diagnosed with an LV [...] improving. Infectious Diseases contacted the hospital in [facility] to request records demonstrating staph aureus, enterococcus [...] cardiomyopathy) | Compensated, and improved since 04/11/18. 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 She notes cost-effective options at the [facility] in [place], [place] - called and they in fact have low-cost detemir and aspart. *Spoke with [facility] [phone] and they have inexpensive medications available: Insulin [...] Screen NEG Electronic Crossmatch YES Unit Number [id number] Blood Component Type RBC,ADSOL,LEUKO REDUCED Unit Division [...] 1:30 PM Ravi Torres MD OBGYNCL UKP QLIKVIEW DEVELOPER Daily Rounding Checklist Line necessity Fernández necessity Telemetry necessity PT/OT necessity DME needs evaluated and supplied Diet at highest level IV --> PO medications Teaching needs Pharmacy needs Wound care needs Planned D/C location (Home/LTAC/SNF/Rehab/Other) Chau Gomez MD 5381 * Ravi Torres MD - 08/20/2018 2:48 PM CDT Patient desires to follow up with QLIKVIEW DEVELOPER after discharge. Follow up appointment in 4 weeks requested. Ravi Torres MD QLIKVIEW DEVELOPER PGY-4 pgr [phone] * Chau Gomez MD - 08/20/2018 11:29 [...] infarction of multiple organs. Originally diagnosed at [facility] in [place], [place]. She was diagnosed with an LV [...] improving. Infectious Diseases contacted the hospital in [facility] to request records demonstrating staph aureus, enterococcus [...] cardiomyopathy) | Compensated, and improved since 04/11/18. 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 She notes cost-effective options at the [facility] in [place], [place] - called and they in fact have low-cost detemir and aspart. *Spoke with [facility] [phone] and they have inexpensive medications available: Insulin [...] | On enoxaparin for AC. Plan Restart general internist and physician leader Carvedilol -bp better and blood loss improved [...] 0324) POC Glucose (Download): (!) 143 (08/19/18 8123) ASSESSMENT: Active Problems: Mass of heart Acute systolic CHF (congestive heart failure) (HCC) LV (left ventricular) mural thrombus without NM Polysubstance abuse (HCC) DM (diabetes mellitus) ([facility]) Bacteremia due to Gram-positive bacteria Moderate malnutrition [...] inpatient 4. Continue pad counts and notify risk analyst if EBL over 24 hour periods increases to concerning amount. 5. Gynecology will sign off for now. We are happy to see patient again if necessary. Please offer patient to follow with us or her primary reporting consultant at discharge. Thank you for the opportunity to participate in the care of this patient. D/w Guillermo Love MD #[id number] Obstetrics and Gynecology PGY1 Please page the Gynecology pager at [phone] with any questions or concerns. Thank you. [...] infarction of multiple organs. Originally diagnosed at [facility] in [place], [place]. She was diagnosed with an LV [...] improving. Infectious Diseases contacted the hospital in [facility] to request records demonstrating staph aureus, enterococcus [...] cardiomyopathy) | Compensated, and improved since 04/11/18. 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 She notes cost-effective options at the [facility] in [place], [place] - called and they in fact have low-cost detemir and aspart. *Spoke with [facility] [phone] and they have inexpensive medications available: Insulin [...] reports bleeding improved. 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 She feel she can manage Her [...] location (Home/LTAC/SNF/Rehab/Other) Chau Gomez MD 5381 * Eda Man MD - 08/19/2018 7:34 [...] (!) 86/50 - 66 97 % - 08/18/18 1625 (!) 83/48 - 68 97 % [...] (Manual): (!) 266 (08/18/182043) Glucose: (!) 319 (08/19/18529) POC Glucose (Download): (!) 341 (08/19/18727) ASSESSMENT: Active Problems: Mass of heart Acute systolic CHF (congestive heart failure) (HCC) LV (left ventricular) mural thrombus without NM Polysubstance abuse (HCC) DM (diabetes mellitus) (HCC) [...] to follow with us or her primary reporting consultant at discharge. D/w Dr. Guillermo Stafford MD #[id number] Obstetrics and Gynecology PGY1 Please page the Gynecology pager at [phone] with any questions or concerns. Thank you. [...] time. Will continue to monitor. * Abad Mendoza RN - 08/18/2018 3:21 PM CDT Per Kim [...] Progress Note Name: Betina Baron Today's Date: 08/18/2018 Assessment: 1. Uncontrolled diabetes - reportedly BG levels as high as 800s in recent past - last HgA1C on file at [facility] from 04/11/18 was 10.5 2. 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 BARRETT estimated creatinine clearance is [...] is a viable option. Bleeding management per POULTRY PATHOLOGIST __ Interval Hx Seen and examined. Vagina [...] Signs: 24 Hour Range BP: 96/47 (08/18 111) Temp: 36.9 C (98.4 F) (08/18 111) Pulse: 76 (08/18 1118) Respirations: 13 PER MINUTE (08/18 111) SpO2: 99 % (08/18 1118) O2 Delivery: None (Room Air) (08/18 1056) SpO2 Pulse: 79 (08/18 1056) BP: (83-110)/(44-65) Temp: [36.6 C (97.9 F)-37.1 [...] infarction of multiple organs. Originally diagnosed at [facility] in [place], [place]. She was diagnosed with an LV [...] improving. Infectious Diseases contacted the hospital in [facility] to request records demonstrating staph aureus, enterococcus [...] cardiomyopathy) | Compensated, and improved since 04/11/18. 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 She notes cost-effective options at the [facility] in [place], [place] - called and they in fact have low-cost detemir and aspart. *Spoke with [facility] [phone] and they have inexpensive medications available: Insulin [...] (HCC) LV (left ventricular) mural thrombus without NM Polysubstance abuse (HCC) DM (diabetes mellitus) (HCC) [...] to follow with us or her primary reporting consultant at discharge. D/w Dr. Guillermo Torres MD PGY-4 Obstetrics and Gynecology Please page the Gynecology pager at [phone] with any questions or concerns. Thank you. [...] no suction, battery not charged and no envelope sealer available. [place] tubing is not compatible with [...] 37.2 C (98.9 F) 75 98 % 08/16/181999 111/57 36.7 C (98 F) 83 100 [...] Screen NEG Electronic Crossmatch YES Unit Number [id number] Blood Component Type RBC,ADSOL,LEUKO REDUCED Unit Division 0 Status OF Unit TRANSFUSED Transfusion Status OK TO TRANSFUSE Crossmatch Result COMPATIBLE,ELECTRONIC Unit Number [id number] Blood Component Type RBC,ADSOL,LEUKO REDUCED Unit Division 0 Status OF Unit ISSUED Transfusion Status OK TO TRANSFUSE Crossmatch Result COMPATIBLE,ELECTRONIC Unit Number [id number] Blood Component Type RBC,ADSOL,LEUKO REDUCED,1ST CONT. Unit [...] (Manual): (!) 167 (08/16/182104) Glucose: (!) 132 (08/17/18 0235) POC Glucose (Download): (!) 161 (08/17/18 1800) ASSESSMENT: Active Problems: Mass of heart Acute systolic CHF (congestive heart failure) (HCC) LV (left ventricular) mural thrombus without NM Polysubstance abuse (HCC) DM (diabetes mellitus) (HCC) [...] Gynecology Please page the Gynecology pager at [phone] with any questions or concerns. Thank you. Associated attestation - Pauline Li MD - 08/20/2018 6:51 PM CDT I personally saw and evaluated the patient. I have reviewed and agree with the impressions and care plan as documented. Pauline Li MD * Cornel Reyes, NELLY - 08/17/2018 5:22 PM CDT iv team [...] past - last HgA1C on file at [facility] from 04/11/18 was 10.5 2. 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 BARRETT estimated creatinine clearance is [...] this is a viable option. Will appreciate QLIKVIEW DEVELOPER recommendations with regard to her vaginal bleeding. [...] Air) (08/17 132) SpO2 Pulse: 73 (08/17 132) BP: (84-126)/(40-69) Temp: [36.4 C (97.6 F)-37.2 [...] infarction of multiple organs. Originally diagnosed at [facility] in [place], [place]. She was diagnosed with an LV [...] improving. Infectious Diseases contacted the hospital in [facility] to request records demonstrating staph aureus, enterococcus [...] cardiomyopathy) | Compensated, and improved since 04/11/18. 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 Currently on carvedilol , lisinopril, and furosemide. Echocardiogram 08/10/18 with improvement from ( results below) ~15% to 30%. PATRIA (results below) re-demonstrating clot. DMII (insulin resistance) | Improving control. At presentation, was in DKA. Reports that at home she was on detemir and aspart, but that she had not been prescribed enough. She notes cost-effective options at the [facility] in [place], [place] - [facility] and they in fact have low-cost [...] screen for DIC again today *Spoke with [facility] [phone] and they have inexpensive medications available: Insulin [...] AM Spoke with Vascular Surgeon. Spoke with Administrative Tech. * Branden Torres MD - 08/17/2018 10:12 AM CDT Spoke with [id number] AM If uterine artery embolization pursued, preference to R groin access. NS * Ebony Angeles OT - 08/17/2018 9:45 AM CDT OCCUPATIONAL THERAPY NOTE Discussed patient's current functional status with RN, RN reported patient continues to be functioning well, at baseline. OT will continue to monitor and provide intervention as needed Discharge recommendation: home with HH Equipment recommendation: none Therapist: [place] [id number] Date: 08/17/2018 * Jennifer Martin - 08/17/2018 5:36 AM CDT Patient Problem called about: (document change in assessment or concern): Pt hgb is 6.6 - up from 6.5 from previous cbc after 1 unit of blood. Time MD/NAT INSTRUCTOR Notified: 0330 MD/NAT INSTRUCTOR Name: Benjamin James MD/NAT INSTRUCTOR Response: Order and transfuse 1 unit of blood Interventions: Blood transfused. Continuing to monitor patient * Harpreet Dugan MD - 08/16/2018 3:28 PM CDT Formatting of this note may be different from the original. Daily Progress Note Today's Date: 08/16/2018 Name: Betina Tod Admission Date: 08/09/2018 (LOS: 7 days) Assessment: Betina Baron is a 48 y.o. female with a pmh of DM, LV thrombus who presented from an OSH in [facility] with splenic and renal artery [...] (HCC) LV (left ventricular) mural thrombus without NM Polysubstance abuse (HCC) DM (diabetes mellitus) (HCC) [...] normal. Harpreet Dugan MD Service Pager: # [phone] * Jill Oseguera RN - 08/16/2018 3:22 [...] infarction of multiple organs. Originally diagnosed at [facility] in [place], [place]. She was diagnosed with an LV [...] improving. Infectious Diseases contacted the hospital in [facility] to request records demonstrating staph aureus, enterococcus [...] cardiomyopathy) | Compensated, and improved since 04/11/18. 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 She notes cost-effective options at the [facility] in [place], [place] - [facility] and they in fact have low-cost [...] Q2 weeks for 4 weeks *Spoke with [facility] [phone] and they have inexpensive medications available: Insulin [...] 08/16/18 0200 102/56 - 74 99 % 08/16/18 0127 109/64 36.9 C (98.4 F) 81 100 % 08/16/18 0112 113/63 37.1 C (98.7 F) 72 100 % 18 2000 118/59 36.9 C (98.5 F) 79 99 % 18 1730 102/48 - 77 99 % 18 1720 - 36.7 C (98.1 F) 74 100 % 18 1715 101/43 - 76 100 % 18 1700 100/51 - 76 99 % 18 1645 113/51 - 77 95 % 18 1630 117/57 36.7 C (98.1 F) 82 98 % 08/15/18 1615 102/61 - 95 100 % 18 1600 101/48 - 77 97 % 18 1550 97/46 - 78 98 % 18 1545 97/43 - 76 97 % 08/15/18 1540 91/40 37 C (98.6 F) 79 97 % 08/15/18 1535 (!) 69/53 - 80 98 % 08/15/18 1530 (!) 85/48 36.7 C (98.1 F) 83 97 % 08/15/18 1515 100/44 - 77 97 % 08/15/18 1510 109/49 - - - 08/15/18 1500 (!) 78/36 - 78 98 % 08/15/18 1445 90/40 - 75 99 % 08/15/18 1430 (!) 81/43 - 82 99 % 08/15/18 1415 (!) 77/43 - 76 99 % 08/15/18 1345 90/43 - 81 99 % 08/15/18 1330 91/46 - 83 100 % 08/15/18 1320 103/61 37 C (98.6 F) 83 100 % 08/15/18 1317 98/61 - 87 100 % 08/15/18 1315 105/59 - 89 100 % 08/15/18 1311 - - 85 100 % 08/15/18 1306 94/50 - - 100 % 08/15/18 1301 105/59 36.9 C (98.4 F) 90 [...] 0535) POC Glucose (Download): (!) 166 (08/16/18 0705) ASSESSMENT: Active Problems: Mass of heart Acute systolic CHF (congestive heart failure) (HCC) LV (left ventricular) mural thrombus without NM Polysubstance abuse (HCC) DM (diabetes mellitus) (HCC) [...] Gynecology Please page the Gynecology pager at [phone] with any questions or concerns. Thank you. [...] 6.6, down from 8.6 at 1846 Time MD/NAT INSTRUCTOR Notified: 0010 MD/NAT INSTRUCTOR Name: Jcaob Alexander MD/NAT INSTRUCTOR Response: Order 1 unit of blood Interventions: Blood will be given * Denys Salvador MD - 08/15/2018 8:15 PM CDT Formatting of this note may be different from the original. Infectious Disease Progress Note Name: Betina Baron Today's Date: 08/15/2018 Assessment: 1. Uncontrolled diabetes - reportedly BG levels as high as 800s in recent past - last HgA1C on file at [facility] from 04/11/18 was 10.5 2. 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 Please have aids social worker look into this and call [facility] [phone] if they have questions about patient assisstance program via the assisted sales representative. While patient did have bacteremia before, pt [...] Diagnostics Review Microbiology reviewed. Pertinent radiology viewed. Michael Ahmed, MD Division of Infectious Diseases * Sade Ibrahim, RD - 08/15/2018 4:57 PM CDT CLINICAL NUTRITION Clinical Nutrition Follow-Up Summary NAME:Betina Baron :1970 AGE : 48 y.o. ADMISSION DATE: 08/09/2018 DAYS ADMITTED: LOS: 6 days Nutrition Assessment of Patient: Malnutrition Assessment: Malnutrition present Current Oral Intake: Marginally Adequate Estimated Calorie Needs: 8103-1523 (28-30 kcals/kg per 68.6kg) Estimated Protein Needs: 86 (1.25 gm/kg per 68.6kg) Oral Diet Order: Diabetic 4717-9172 Kcal/day (75 g Carb/meal, 30 g Carb/HS snack ) ICD-10 code E44: Chronic illness/Moderate non-severe malnutrition Energy intake: < 75% of estimated energy requirement for 1 month or more, Weight loss: 10% x 6 months, Mild loss of body fat, Mild loss of muscle mass Loss of Subcutaneous Fat: Yes Moderate Orbital Muscle Wasting: Yes Moderate Jew, Clavicle, Interosseous Edema: Yes Mild Right, Lower Extremeties Malnutrition Interventions: Provided diet education, encouraged Pt to follow diet and medical regimen Comments: Betina Baron is a 48 y.o. female with a pmh of DM, polysubstance abuse, LV thrombus, CHF, L BKA, GLENNY who presented from an OSH in [facility] with splenic and renal artery [...] has been non-compliant with DM diet. Per food preparation worker, she continues to fight them for more [...] has been eating 100% of meals per metallurgist helper. RD has previously reviewed carb counting with [...] Ibrahim MS, RD, LD, [facility] Pager [phone] * Osei Simmons RN - 08/15/2018 4:23 PM CDT Pt had 1 urine occurrence 500cc. Brief soaked in blood and weighed 375. This occurrence also produced 2 large kidney sized solid clots. Will continue to monitor. * Alta Concepcion OT - 08/15/2018 3:30 PM CDT OCCUPATIONAL THERAPY Daily Note Pt continues to get up to commode and chair and performing all basic adls with extra time to set up. Pt appears to be getting near her baseline for adls. OT will continue to monitor with any further needs while pt here in hospital. Alta Concepcion OTR/L [id number] * Ravi Torres MD - 08/15/2018 1:59 [...] not been accepting it. TVUS 03/2018- uterus [id number] cm, with intramural/submucosal fibroid measuring 8.4 cm. [...] the morning. D/w Dr. Guillermo Torres MD QLIKVIEW DEVELOPER PGY-4 pgr [phone] Associated attestation - Pauline [...] distal emobolization and infarction. Originally diagnosed at [facility] in [place], [place]. She was diagnosed with an LV [...] improving. Infectious Diseases contacted the hospital in [facility] to request records demonstrating staph aureus, enterococcus [...] cardiomyopathy) | Compensated, and improved since 04/11/18. 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 She notes cost-effective options at the [facility] in [place], [place] - [facility] and they in fact have low-cost [...] Await final cultures Hold ASA *Spoke with [facility] [phone] and they have inexpensive medications available: Insulin [...] Recent labs reviewed. Notable for: Hemoglobin 6.6 [id number] WBC 9.0 Sodium 130 Potassium 4.9 Chloride [...] Progress Note Today's Date: 08/15/2018 Name: Betina Baorn Admission Date: 08/09/2018 (LOS: 6 days) Assessment: Betina Baron is a 48 y.o. female with a pmh of DM, LV thrombus who presented from an OSH in [facility] with splenic and renal artery [...] (HCC) LV (left ventricular) mural thrombus without NM Polysubstance abuse (HCC) DM (diabetes mellitus) (HCC) Bacteremia due to Gram-positive bacteria Moderate malnutrition (HCC) Plan: - Continue lovenox, anticoagulation and f/u per cardiology - Q4h vascular checks until d/c - Rooke boot to RLE - Provena wound vac will be in [...] normal. Harpreet Dugan MD Service Pager: # [phone] * Katy Hughes RN - 08/14/2018 2:05 [...] Micro Last 72 Hrs CULTURE-BLOOD W/SENSITIVITY Resulted: 08/14/1837, Result status: Preliminary result Ordering provider: Raul Burger MD 08/09/18 6372 Resulting lab: MAIN LAB Specimen Information Source [...] Chau Gomez MD 08/10/18 0709 Resulting lab: [facility] Specimen Information Source Collected On Blood 08/10/18 0613 Components Component Value Flag Battery Name BLOOD [...] sat>=95% or baseline. Katy Hughes RN Psychological/Emotional/Spiritual [place] with procedure with support in place. Spiritual needs are addressed. Yes Refer to patient's chart. Provide adequate and thorough instructions. Provide a caring and supportive environment. Communicate patients concerns with other members of the health team. Katy Hughes RN Pain Patients pain goal met. [...] distal emobolization and infarction. Originally diagnosed at [facility] in [place], [place]. She was diagnosed with an LV thrombus and placed on anticoagulation at the beginning of 2017. Non-adherence to any coagulation. Currently on AC [...] improving. Infectious Diseases contacted the hospital in [facility] to request records demonstrating staph aureus, enterococcus [...] cardiomyopathy) | Compensated, and improved since 04/11/18. 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 She notes cost-effective options at the [facility] in [place], [place]. Polysubstance abuse (addiction versus education deficit [...] Will look into follow-up for insulin with [facility] in [place], [place] Continue oral pain control regimen, with 25% [...] to RLE Await final cultures *Spoke with [facility] [phone] and they have inexpensive medications available: Insulin [...] Time Provider Department Center 08/14/2018 1:45 PM [facility] Daily Rounding Checklist Line necessity Fernández necessity [...] (HCC) LV (left ventricular) mural thrombus without NM Polysubstance abuse (HCC) DM (diabetes mellitus) (HCC) [...] normal. Harpreet Dugan MD Service Pager: # [phone] * SandraAleyda self, PT - 08/14/2018 8:51 AM CDT PHYSICAL [...] Progress Note Name: Betina Baron Today's Date: 08/13/2018 Admission Date: 08/09/2018 LOS: 4 days Assessment/Plan: Active Problems: Mass of heart Acute systolic CHF (congestive heart failure) (HCC) LV (left ventricular) mural thrombus without NM Polysubstance abuse (HCC) DM (diabetes mellitus) (HCC) [...] -check PATRIA on tuesday -also will need intermodal truck driver abx, -complicated situation , no insurance. She [...] Vaginal bleed-resolved Uterine Fibroids -was seen by Copier Repair Technician last admission -EMB:beningn and PAP:Negative for intraepithelial lesion or malignancy. HPV high risk;negative -patient refused IUD -was started on Provera BID and recommend OP follow up -cont general internist and physician leader provera bid, refusing as she thinks it is causing her increased vaginal bleeding -Copier Repair Technician consulted ,appreciate recs Chronic systolic congestive heart failure -stable -Continue BAKER OPERATOR AUTOMATIC Coreg, lisinoprilLasix -hold aldactone due to hyperkalemia [...] (08/13 1125) Respirations: 18 PER MINUTE (08/13 1125) SpO2: 100 % (08/13 112) O2 Delivery: None (Room Air) (08/13 0752) [...] Screen NEG Electronic Crossmatch YES Unit Number [id number] Blood Component Type RBC,ADSOL,LEUKO REDUCED Unit Division [...] No results found. Chau Gomez MD Pager [phone] * Dani Juárez MD - 08/13/2018 7:53 AM CDT Formatting of this note may be different from the original. Daily Progress Note Today's Date: 08/13/2018 Name: Betina Baron Admission Date: 08/09/2018 (LOS: 4 days) Assessment: Betina Baron is a 48 y.o. female with a pmh of DM, LV thrombus who presented from an OSH in [facility] with splenic and renal artery [...] (HCC) LV (left ventricular) mural thrombus without NM Polysubstance abuse (HCC) DM (diabetes mellitus) (HCC) [...] normal. Dani Juárez MD Service Pager: # [phone] Associated attestation - Chandler Coburn MD - [...] Will continue to monitor status. * Alta Concepcion OT - 08/12/2018 2:50 PM CDT OCCUPATIONAL THERAPY Pt states she has done well with transfers except that the arm on her commode keeps falling and that it rocks and is unlevel. OT spoke with RN and new commode chair ordered. OT will continue to monitor for further adl needs and progress as tolerated. Alta Concepcion OTR/L [id number] * Chau Gomez MD - 08/12/2018 11:36 AM CDT Formatting of this note may be different from the original. General Progress Note Name: Betina Baron Today's Date: 08/12/2018 Admission Date: 08/09/2018 LOS: 3 days Assessment/Plan: Active Problems: Mass of heart Acute systolic CHF (congestive heart failure) (HCC) LV (left ventricular) mural thrombus without NM Polysubstance abuse (HCC) DM (diabetes mellitus) (HCC) [...] consult -will need PATRIA, -also will need [facility], -complicated situation , no insurance. She [...] Vaginal bleed-improved Uterine Fibroids -was seen by Copier Repair Technician last admission -EMB:beningn and PAP:Negative for intraepithelial lesion or malignancy. 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 Philip Baron is a 48 y.o. female.no acute [...] Signs: 24 Hour Range BP: 102/44 (08/12 0900) Temp: 36.6 C (97.8 F) (08/12 0900) Pulse: 72 (08/12 900) Respirations: 12 PER MINUTE (08/12 900) SpO2: 100 % (08/12 900) O2 Delivery: None (Room Air) (08/12 900) SpO2 Pulse: 72 (08/12 0400) BP: (93-103)/(44-88) Temp: [36.6 C (97.8 F)-37.1 [...] 0423) POC Glucose (Download): (!) 344 (08/12/18 9379) Radiology and other Diagnostics Review: Pertinent radiology reviewed. No results found. Chau Gomez MD Pager [phone] * Harpreet Dugan MD - 08/12/2018 7:43 AM CDT Formatting of this note may be different from the original. Daily Progress Note Today's Date: 08/12/2018 Name: Betina Baron Admission Date: 08/09/2018 (LOS: 3 days) Assessment: Betina Baron is a 48 y.o. female with a pmh of DM, LV thrombus who presented from an OSH in [facility] with splenic and renal artery [...] (HCC) LV (left ventricular) mural thrombus without NM Polysubstance abuse (HCC) DM (diabetes mellitus) (HCC) Bacteremia due to Gram-positive bacteria Moderate malnutrition (HCC) Plan: - heparin gtt transitioned to therapeutic lovenox - Q2h vascular checks - Rooke boot to RLE - okay for discharge home from vascular surgery standpoint - vascular surgery will follow along, page [phone] with questions Harpreet Dugan MD Pager [phone] Subjective: No acute events overnight. Pain is [...] normal. Harpreet Dugan MD Service Pager: # [phone] Associated attestation - Chandler Coburn MD - [...] (HCC) LV (left ventricular) mural thrombus without NM Polysubstance abuse (HCC) DM (diabetes mellitus) (HCC) [...] Vaginal bleed Uterine Fibroids -was seen by Copier Repair Technician last admission -EMB:beningn and PAP:Negative for intraepithelial lesion or malignancy. 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 Denies any pain in her chest or [...] MINUTE (08/11 0900) SpO2: 97 % (08/11 09) O2 Delivery: None (Room Air) (08/11 0800) SpO2 Pulse: 83 (08/11 0900) BP: (80-92)/(46-65) Temp: [36.8 C (98.2 F)-37.2 [...] 0403) POC Glucose (Download): (!) 235 (08/11/18 0936) Radiology and other Diagnostics Review: Pertinent radiology reviewed. No results found. Chau Gomez MD Pager [phone] * VarinderAleyda, PT - 08/11/2018 11:31 AM CDT PHYSICAL [...] Reeder, PT, DPT Date: 08/11/2018 * Alta Concepcion, OT - 08/11/2018 11:30 AM CDT Formatting of this note may be different from the original. OCCUPATIONAL THERAPY Daily Note Patient Name: Betina Baron Room/Bed: BV5111/01 Admitting Diagnosis: dka Past Medical History: Diagnosis [...] Equipment: Wheelchair-manual;Shower/Tub Bench Prior Function Level Of [place]: Independent with ADLs and functional transfers;Needed assistance [...] a 2nd Functional Transfer Deficits: (stand pivot adamstatianaer ) Comment: pt going supine to sit [...] Plan for Next Visit: BSC or w/c galo, grooming at w/c level Further Evaluation Goals [...] early to be determined Therapist: CARISA Blancas/Claus [id number] Date: 08/11/2018 * aGrcía Cooper MD - 08/11/2018 9:54 AM CDT [...] noncompliant on her anticoagulation - hospitalized in [place] ([facility]) -diagnosed with LV thrombus and placed on anticoagulation in early 2017; stopped anticoagulation on her own weeksmonths 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 (08/10/18): Moderately to severely decreased [...] Bacteremia -Per outside hospital "growing GPCs" [facility] in [place], [place] to request records which show in 1/2 bottles: Staph aureus Probable enterococcus species -> later reported as beta-hemolytic Strep Staph, Coag Neg - etiology unknown - Patient placed on broad-spectrum IV antibiotics Vanc/cefepime - Blood cultures have been obtained 08/09 NGTD, and 08/10 Uncontrolled diabetes - reportedly BG levels as high as 800s in recent past - last HgA1C on file at [facility] from 04/11/18 was 10.5 Antimicrobial Intolerance/Sensitivity - Penicillin- said to cause rash, hive, and shortness of breath Recommendations: Please continue: Daptomycin 10mg/kg q24hr D/c ceftaroline based on culture results Obtain PATRIA to evaluate for perivalvular abscess. Await culture results from [facility], [place], [place], for further adjustments to antibiotics Currently growing Staph aureus, Bertrand hemolytic strep Upon further attempt to discuss the etiology of these thrombi with the patient, she states that although she knew about her LV thrombus, she was never educated about any workup that may have been done to determine a cause. [facility] (asked nurse to fill out care everywhere [...] recommend obtaining discharge summary from hospitalization at [facility] in [facility] from earlier this year. She was diagnosed originally with the LV clot at that time and later discontinued the anticoagulant on her own. Patient discussed with Dr. Gomez. Discharge planning for her will be quite challenging given her social and current clinical situation. If ID assistance needed over weekend, please contact ID cost consultant. Dr. Navjot Can will begin seeing pt on Tuesday08/14/18. García Cooper MD pager [phone] Division of Infectious Diseases __ Interval History [...] 0000) Temp: 36.9 C (98.5 F) (08/11 0831) Pulse: 83 (08/11 0900) Respirations: 17 PER MINUTE (08/11 900) SpO2: 97 % (08/11 900) O2 Delivery: None (Room Air) (08/11 0800) SpO2 Pulse: 83 (08/11 0900) Height: 180.3 cm (71") (08/10 1048) BP: [...] Latif, MS4 Division of Infectious Diseases * Dani Juárez MD - 08/11/2018 8:22 AM CDT Formatting of this note may be different from the original. Daily Progress Note Today's Date: 08/11/2018 Name: Betina Baron Admission Date: 08/09/2018 (LOS: 2 days) Assessment: Betina Baron is a 48 y.o. female with a pmh of DM, LV thrombus who presented from an OSH in [facility] with splenic and renal artery [...] (HCC) LV (left ventricular) mural thrombus without NM Polysubstance abuse (HCC) DM (diabetes mellitus) (HCC) [...] 7500 with questions Harpreet Dugan MD Pager [phone] Subjective: No acute events overnight. Pain is [...] normal. Harpreet Dugan MD Service Pager: # [phone] * Mayra Barney RN - 08/11/2018 7:47 AM CDT 0730: Assumed care of patient. Bedside safety check completed with warehouse shift supervisor RN. Lines and alarms verified. 0800: Assessment completed and documented per ICU flowsheet. Patient VSS per patient trend. Orders reviewed and implemented. Bed locked low. Call light in reach. Will continue to monitor and assess. * Marjan Latif RN - 08/10/2018 4:38 PM CDT Patient's last two blood pressures were 86/49 and 80/65, patient asymptomatic, sitting up in bed talking with clinical appeals auditor. Team paged, no new orders at this time. * Harpreet Dugan MD - 08/10/2018 3:48 PM CDT Formatting of this note may be different from the original. Daily Progress Note Today's Date: 08/10/2018 Name: Betina Baron Admission Date: 08/09/2018 (LOS: 1 day) Assessment: Betina Baron is a 48 y.o. female with a pmh of DM, LV thrombus who presented from an OSH in [facility] with splenic and renal artery [...] (HCC) LV (left ventricular) mural thrombus without NM Polysubstance abuse (HCC) DM (diabetes mellitus) (HCC) [...] normal. Harpreet Dugan MD Service Pager: # [phone] Associated attestation - Chandler Coburn MD - [...] Chandler Coburn MD Date: 08/10/2018 * Ebony Angeles OT - 08/10/2018 1:15 PM CDT Formatting of this note may be different from the original. OCCUPATIONAL THERAPY ASSESSMENT NOTE Patient Name: Betina Baron Room/Bed: EW9482/01 Admitting Diagnosis: dka Past Medical History: Diagnosis [...] Equipment: Wheelchair-manual;Shower/Tub Bench Prior Function Level Of [place]: Independent with ADLs and functional transfers;Needed assistance [...] old IV site on R forearm was beechristopher, RN notified, RN in to assist patient [...] to be determined Therapist: [place] [id number] Date: 08/10/2018 * Aleyda Reeder, PT - [...] hospital : 1970 AGE: 48 y.o. ROOM: [place] [address] DOCTOR: Date of Order: 08/10/18 Date of Service: 08/10/18 Services referred for: Orthotic Eval and Treat: Rose Bryant Description of condition/injury, including services:Thrombosis of popliteal artery Size: Reg Rooke Boot Side Rt Measurements: Area/circumference/Diameter/Length None Functional Goals discussed for device use: Promote LE vascular flow and protect skin integrity Device is to be ordered No Estimated date of delivery Today Functional goals met: Rose Bryant delivered to pt's room for RN to [...] (HCC) LV (left ventricular) mural thrombus without NM Polysubstance abuse (HCC) DM (diabetes mellitus) (HCC) [...] start working on financial assistance program for emma , if we could give her a [...] -monitor Chronic systolic congestive heart failure -Continue 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 Denies any pain in her chest [...] in dextrose 5% (D5W) 250 mL IVPB ([id number]) 15 mg /kg Intravenous Q12H* Continuous Infusions: [...] (08/10 322) Height: 180.3 cm (71") (08/09 800) BP: (102-115)/(57-69) ABP: (123-138)/(54-65) Temp: [37 C [...] (Last 24 hours) Glucose: (!) 272 (08/10/18 6144) POC Glucose (Download): (!) 201 (08/10/18 4034) Radiology and other Diagnostics Review: Pertinent radiology reviewed. No results found. Chau Gomez MD Pager [phone] * Marla Odell RN - 08/09/2018 11:30 [...] teams Dani Juárez MD * Taylor Canela, JYOTI - 08/09/2018 11:31 AM CDT Formatting of [...] Taylor Canela, PHARMD 08/09/2018 * Marla Odell, RN - 08/09/2018 4:30 AM CDT Pt arrived [...] BID Continuous Infusions: [JAN Hold] fentaNYL (SUBLIMAZE) CARDROOM WORKER 550 mcg/ NS 55 mL infusion syr [...] just received Dapotomycin dose at 1441 per MAR. I have examined the patient, and there are no significant changes in their condition, from the previous H&P performed on 08/09/18. Kim Elias, CYBER LEGAL ADVISOR Pager [phone] * Chau Gomez MD - 08/09/2018 4:37 AM CDT Formatting of this note may be different from the original. 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 Further scripts to be given by PCP/POULTRY PATHOLOGIST metFORMIN (GLUCOPHAGE) 500 mg tablet Take 500 [...] MG/DL POC Glucose (Download): (!) 373 (08/09/18 040) Pertinent radiology reviewed. Raul Burger MD Pager [phone] in this encounter Consult Notes * Sade Chung RN - 08/18/2018 8:06 AM CDT Associated Order(s): CONSULT WOUND/OSTOMY TEAM NURSE Wound Ostomy Note NAME:Betina Baron :1970 AGE: 48 y.o. ADMISSION DATE: 08/09/2018 DAYS ADMITTED: LOS: 9 days Reason for Consult/Visit: wound VAC Assessment/Plan: Active Problems: Mass of heart Acute systolic CHF (congestive heart failure) (HCC) LV (left ventricular) mural thrombus without NM Polysubstance abuse (HCC) DM (diabetes mellitus) (HCC) Bacteremia due to Gram-positive bacteria Moderate malnutrition ([facility]) Consult placed for wound team to "look at wound vac and wound b/c battery dies on machine". Vascular saw patient on 08/16/18. Detailed note in place about plan and f/u. Vascular team to be notified. Informed bedside RN and Medicine team that Vascular is following wound. Thank you We will sign off at this time Dayana Chung RN, BSN Wound /Ostomy Team Pager [phone] After Hours Wound/Ostomy team pager [phone] * Aleyda Tse RN - 08/17/2018 2:21 PM CDT Associated Order(s): CONSULT INTERVENTIONAL RADIOLOGY PHYSICIAN IR Consult Note UAE discussed with Dr. Schaefer and Dr. Kate, okay to proceed. Please place order for IR Embolization. Please specify in order that vascular surgery wants right groin access only. Dr. Schaefer to do on 08/18. Patient should be NPO at midnight, does not need to hold therapeutic lovenox for procedure. Labs, meds, allergies okay. Please page [phone] with any questions. Aleyda Tse RN BSN [...] Acute systolic CHF (congestive heart failure) ([facility]) LV (left ventricular) mural thrombus without NM Polysubstance abuse ([facility]) DM (diabetes mellitus) ([facility]) Bacteremia due to Gram-positive bacteria Moderate malnutrition ([facility]) Pressure Injury 08/15/181999 (Active) Stage 2 coccyx [...] None 08/16/2018 12:00 PM Wound Base Assessment [place];Moist 08/16/2018 12:00 PM Surrounding Skin Assessment Intact;Macerated [...] CWON Wound Ostomy Nursing Consult Service Office: [phone] Pager: [phone] After Hours Wound/Ostomy Team Pager: [phone] * Allison Holland RN - 08/11/2018 5:37 PM CDT [...] alternative medications available over the counter at [facility] be considered as an option, specifically Novolin 70/30. FATEMEH Odom, RN Clinical Nurse Coordinator - Diabetes Education Nursing Clinical Excellence [facility] [email or web address] [phone] office [phone] pager * Eda Man MD - 08/11/2018 12:33 PM CDT Associated Order(s): CONSULT POULTRY PATHOLOGIST PHYSCIAN Formatting of this note may be different from the original. Gynecology Consult History and Physical Examination Betina Baron Admission Date: 08/09/2018 Assessment: 48 y.o. [id number] admitted for DKA, multiple emboli, consult for [...] Gynecology Please page the Gynecology pager at [phone] with any questions or concerns. Thank you for allowing us to participate in the care of your patient. Reason for Consult: Vaginal bleeding History of Present Illness: Betina Baron is a 48 y.o. [id number] admitted for DKA, multiple emboli including splenic [...] Provera so she saw her doctor in [place] who told her to discontinue. She says that she stopped bleeding after discontinuing. Review of Systems: A comprehensive review of systems was performed and was negative, except as in HPI Copier Repair Technician History: LMP: 08/09/18 Pap: Negative STD: Negative [...] 0403) POC Glucose (Download): (!) 214 (08/11/18 6410) Associated attestation - Sherry Cueto MD - 08/14/2018 8:47 AM CDT Attending Attestations: I saw and evaluated this patient and I reviewed and discussed the case of this patient with the resident physician, Dr. Stafford, including the resident's findings in the history, physical examination, diagnosis and treatment plan for today's visit. 48 y.o. admitted for DKA and multiple emboli, risk analyst consulted for vaginal bleeding with a [...] patient's significant anemia. Sherry Cueto MD * Sade Ibrahim RD - 08/10/2018 5:11 PM CDT Associated Order(s): CONSULT DIETITIAN CLINICAL NUTRITION Clinical Nutrition Assessment Summary NAME:Betina Baron :1970 AGE : 48 y.o. ADMISSION DATE: 08/09/2018 DAYS ADMITTED: LOS: 1 day Nutrition Assessment of Patient: BMI Categories Adult: Acceptable: 18.5-24.9 Unintentional Weight Loss: > 10% in 6 months (severe) Malnutrition Assessment: Malnutrition present Current Oral Intake: Marginally Adequate Estimated Calorie Needs: 7380-7195 (28-30 kcals/kg per 68.6kg) Estimated Protein Needs: 86 (1.25 gm/kg per 68.6kg) Oral Diet Order: Cardiac, Diabetic 8034-9819 Kcal/day (60 g Carb/meal, 30 g Carb /HS snack) ICD-10 code E44: Chronic illness/Moderate non-severe malnutrition Energy intake: < 75% of estimated energy requirement for 1 month or more, Weight loss: 10% x 6 months, Mild loss of body fat, Mild loss of muscle mass Loss of Subcutaneous Fat: Yes Moderate Orbital Muscle Wasting: Yes Moderate Jew, Clavicle, Interosseous Edema: No Malnutrition Interventions: Provided diet education, encouraged Pt to follow diet and medical regimen Comments: Betina Baron is a 48 y.o. female with a pmh of DM, polysubstance abuse, LV thrombus, CHF, L BKA, GLENNY who presented from an OSH in DKA [...] glucose Time Frame: Prior to Discharge Sade Ibrahim MS, RD, LD, [facility] Pager [phone] Office [phone] * Allison Holland RN - 08/10/2018 5:02 PM CDT Associated Order(s): CONSULT DIABETES NURSE EDUCATOR INPATIENT DIABETES EDUCATION TEAM Clinical Excellence Nursing Practice Reason for Consult: DKA Discussed Consult with Primary Team: Bedside Marjan VILLEGAS Patient may benefit from: More affordable medications such as 70/30 Insulin in vial and syringe, and Metformin, and new Glucometer, test strips, and lancets. Referral to [facility] for Diabetes Education and local resources. This [...] meet with a diabetes person at the [facility], but she is having difficulty making arrangements given her limited access to transportation and limited availability of the Health Dept person. Educator will continue to follow throughout stay. Thank you for the consult. If you have further questions or concerns related to diabetes management, please do not hesitate to contact me at the numbers below. Allison Holland, BSN, RN Clinical Nurse Coordinator - Diabetes Education Nursing Clinical Excellence 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 (08/10/18): Moderately to severely decreased [...] Bacteremia -Per outside hospital "growing GPCs" [facility] in [place], [place] to request records which show in 1/2 bottles: Staph aureus Probable enterococcus species Staph, Coag Neg - etiology unknown - Patient placed on broad-spectrum IV antibiotics Vanc/cefepime - Blood cultures have been obtained 08/09 NGTD, and 08/10 Uncontrolled diabetes - reportedly BG levels as high as 800s in recent past - last HgA1C on file at [facility] from 04/11/18 was 10.5 Antimicrobial Intolerance/Sensitivity - [...] regiment. The thrombus was original discovered at [facility], [place], [place]. It would be worth contacting them and obtaining any workup conducted surrounding the development of this thrombus. At this point, unclear what the etiology of her thrombotic condition is. Ddx would include Afib, hypercoagulability syndrome (i.e. Antiphospholipid syndrome), or malignancy. No need to work up further if cause has already been delineated. Recommendations: Start Daptomycin 10mg/kg q24hr + Ceftaroline 600mg [id number] Await culture results from [facility], [place], [place], for further adjustments to antibiotics Obtain records from [facility] in hope of delineating underlying etiology [...] patient received cefepime. Patient was transferred to [facility] for further evaluation and treatment. She was [...] was initially diagnosed earlier this year at [facility] in [place], at which time she was started on [...] unclear. Recommend we obtain discharge summary from [facility] in [place] from earlier this year. (Underlying primary clotting disorder? Atrial fibrillation ? Occult malignancy?) If clear etiology was not defined during her hospital stay in [place], would consider mammogram + transvaginal ultrasound to [...] with you. García Cooper Date: 08/10/2018 Pager: [phone] . History of Present Illness Betina Baron is a 48 y.o. 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 Patient was recently admitted to [facility] due to DKA and was discharged [...] of bacteremia w/ low grade fever (100.4F). [facility] in [place], [place] was contacted to request records which [...] joints. She states that she lives in [place], [place] with her ex- of 18 years [...] in dextrose 5% (D5W) 250 mL IVPB (Chpi7Dxa) 15 mg /kg Intravenous Q12H* Continuous Infusions: heparin (porcine) 20,000 units/D5W 500 mL infusion (std conc)(premade) 1, 400 Units/hr (08/10/18813) PRN and Respiratory Meds:benzocaine/menthol Q2H PRN, fentaNYL citrate PF Q1H PRN , oxyCODONE Q4H PRN, vancomycin, pharmacy to manage Per Pharmacy Physical Examination Vital Signs: Last Vital Signs: 24 Hour Range BP: 100/58 (08/10 800) Temp: 37 C (98.6 F) (08/10 800) Pulse: 88 (08/10 815) Respirations: 18 PER MINUTE (08/10 800) SpO2: [...] BKA, Uterine Fibroid who presented to the [facility] as a transfer from the [facility] yesterday for the leg pain and [...] Reduced EF: - Echo as above. 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 - Stable, [...] GDMT with coreg and lisinopril, lasix as BAKER OPERATOR AUTOMATIC meds. - Repeat 2D echo with doppler during this admission. Patient seen and discussed with Dr. Sam. Thank you for the consult. TRAV Flanagan # [id number] # PGY-3 ATTESTATION I personally performed the [...] BKA, Uterine Fibroid who presented to the [facility] as a transfer from the [facility] yesterday for the leg pain and CTA showed diffuse embolic diffuse. Patient was recently admitted to the [facility] due to hyperglycemia and was discharged [...] in dextrose 5% (D5W) 250 mL IVPB (Auzs1Nxq) 15 mg /kg Intravenous Q12H* Continuous Infusions: [...] (08/09 1430) Height: 180.3 cm (71") (08/09 800) BP: (103-115)/(61-68) ABP: (123-138)/(54-65) Temp: [37 C [...] healed. Pulses: 2+ and symmetric, all extremities INK MAKER: no focal neurological deficits , CN II-XII [...] Screen NEG Electronic Crossmatch YES Unit Number [id number] Blood Component Type RBC,ADSOL,LEUKO REDUCED,1ST CONT. Unit Division 0 Status OF Unit ISSUED Transfusion Status OK TO TRANSFUSE Crossmatch Result COMPATIBLE,ELECTRONIC Unit Number [id number] Blood Component Type RBC,ADSOL,LEUKO REDUCED,2ND CONT. Unit [...] Ref Range PH-ART-POC 7.35 7.35 - 7.45 IMB7-QWK-EDT 47 (H) 35 - 45 MMHG PO2-ART-POC 513 (H) 80 - 100 MMHG Base Ex-ART-POC 0.0 MMOL/L O2 Sat-ART-POC 100.0 (H) 95 - 99 % Enabulmgbub-IUQ-SHG 25.9 21 - 28 MMOL/L POC HEMATOCRIT [...] Ref Range PH-ART-POC 7.40 7.35 - 7.45 UAF1-XEN-PHS 41 35 - 45 MMHG PO2-ART-POC 488 (H) 80 - 100 MMHG Base Ex-ART-POC 0.0 MMOL/L O2 Sat-ART-POC 100.0 (H) 95 - 99 % Htqluxwdffe-PTF-RIO 24.9 21 - 28 MMOL/L POC HEMATOCRIT [...] Pertinent radiology reviewed. Turner Harris MD Pager [phone] * Ofe Soriano MD - 08/09/2018 5:24 AM CDT Associated Order(s): CONSULT VASCULAR SURGERY PHYSICIAN Formatting of this note may be different from the original. [facility] Consult 08/09/2018 Patient: Betina Baron [...] (08/09 402) O2 Delivery: None (Room Air) (09/12 0402) SpO2 Pulse: 88 (08/09 402) Height: 180.3 [...] 72 hours. POC Glucose (Download): (!) 373 (08/09/18407) Associated attestation - Kim Mccarthy MD - [...] her using a gas card provided by [facility] and obtaining f/u labs at [facility] in [facility]. Pt is scheduled to return to [facility] on 08/24/18 for her every two week injection of IV ABX. Interventions ? Support Support: Pt/Family Updates re:POC or DC Plan ? Info or Referral ? Discharge Planning Discharge Planning: Other -NCM spoke with pts OBGYN office to advise [facility] Depo Lupron injections until authorized through their mgt to provide to pt. Merna from Pharmacy had advised NCM that she already knows that another expensive medication had been denied because "[facility] had decided to prescribe an expensive medication, but if [facility] wants to provide the medications to [facility] that they could then administer them for the pt". -[facility] asked Merna to please check with her mgt r/t providing the Depo Lupron C0jjarg injection to the pt prior to refusing to provide it. Merna agreed to check with her laundry marker supervisor tomorrow, stating they were currently out of [...] Transportation Name, Phone and Availability #1: Ex-[facility] [phone] Does the patient use Medicaid Transportation?: No [...] for the patient. Tara Fields RN BSN, [facility] Nurse Assistant Casino Shift Manager Pager: [phone] * Case Mgmt DC Plan - Shelia Pratt - 08/22/2018 3:49 PM CDT DUST MILL OPERATOR Note: This teletypewriter operator delivered a $10 pre-paid [employer] gasoline card to pt's RN Shelia Pratt Assembler Watch Train * Case Mgmt DC Plan - Katie Mendenhall - 08/22/2018 3:28 PM CDT Formatting of this note may be different from the original. Case Management Progress Note NAME:Betina Baron :1969 AGE: 48 y.o. ADMISSION DATE: 08/09/2018 DAYS ADMITTED: LOS: 13 days Todays Date: 08/22/2018 Plan Plan to d/c to home today. Pt's daughter driving pt home to [place], [place]. SW provided gas card. Interventions ? Support Support: Pt/Family Updates re:POC or DC Plan ? Info or Referral ? Discharge Planning Discharge Planning: Home Health Covering SW spoke with Med team. Per team, pt is medically stable to d/c today. NCM states pt's daughter is picking pt up today but does not have enough money for gas to get home. SW tasked DUST MILL OPERATOR to deliver gas card to pt's RN. ? Medication Needs ? Financial Financial: Yamila Referral/Follow-up ? Legal ? Other Disposition ? Expected Discharge Date Expected Discharge Date: 08/22/18 ? Transportation Does the patient need discharge transport arranged?: No (Pt may need assistance with a gas card) Transportation Name, Phone and Availability #1: Ex-, [place] [phone] Does the patient use Medicaid Transportation?: No ? Next Level of Care (Acute Psych discharges only) ? Discharge Disposition Durable Medical Equipment No service has been selected for the patient. [facility] Destination No service has been selected for the patient. Home Care No service has been selected for the patient. Dialysis/Infusion No service has been selected for the patient. Jennifer Mendenhall [facility] Steam Pan Sponger Office [phone] Pager [phone] * Case Mgmt DC Plan - Tara [...] on IV Antibiotics at scheduled appt with [facility]. Interventions ? Support Support: [...] a gas card for her daughters car. SWCM advised that a DUST MILL OPERATOR is tasked with delivering a gas card to pts room. -NCM discussed pts instructions found in her AVS for f/u care and appts. ? Info or Referral ? Discharge Planning Discharge Planning: Home Health -NCM spoke with patients local hospital [facility] in [facility] NELLY Holt who states that providing weekly labs and the once every three months Depo Lupron should not be a problem if NCM would send orders. -NCM sent orders for above and received successful fax confirmation at 2:33pm. -NCM called [facility] and scheduled pt for the time frame she requested of 08/24/18 at 1:45pm and placed her first IV ABX appt on her CM notes of AVS including location and instructions to pt from the infusion clinic. -HILDAM called [facility] ([phone]) in [place], [place] to attempt confirmation of orders received. -Merna at [facility] states that the pt can get labs at their Lab: [phone] and can call their OP Infusion clinic for the Depo Lupron if they find they are allowed to provide the injection since they are a [facility] it would have to be an authorized injection. ? Medication Needs ? Financial Financial: Yamila Referral/Follow-up -Pt provided a free trial coupon for Eliquis. -Pt has ryan IV ABX provided by [facility] once every two weeks. ? Legal ? Other Disposition ? Expected Discharge Date Expected Discharge Date: 08/22/18 ? Transportation Does the patient need discharge transport arranged?: No (Pt may need assistance with a gas card) Transportation Name, Phone and Availability #1: [facility] [phone] Does the patient use Medicaid Transportation?: No ? Next Level of Care (Acute Psych discharges only) ? Discharge Disposition Durable Medical Equipment No service has been selected for the patient. [facility] Destination No service has been selected for the patient. Home Care No service has been selected for the patient. Dialysis/Infusion No service has been selected for the patient. Tara Fields RN BSN, [facility] Nurse Assistant Casino Shift Manager Pager: [phone] * Case Mgmt DC Plan - Tara Fields RN - 08/22/2018 8:53 AM CDT Formatting of this note may be different from the original. Case Management Progress Note NAME:Betina Baron :1969 AGE: 48 y.o. ADMISSION DATE: 08/09/2018 DAYS ADMITTED: LOS: 13 days Todays Date: 08/22/2018 Plan Anticipate pt to dc with biweekly f/u IV ABX at [facility] and weekly labs obtained at [facility] in [facility] near her home, transported home by her ex-SO with the use of a gas card provided by [facility]. *Pt has a f/u OBGYN appt scheduled for 09/18/18. Interventions ? Support Support: Pt/Family Updates re:POC or DC Plan ? Info or Referral ? Discharge Planning Discharge Planning: Home Health -NCM called [facility] in [facility] to advise pt would need weekly labs while on her IV ABX provided by [facility] and asked RN Yanet if they could provide the weekly labs [...] Name, Phone and Availability #1: Ex-, Robby [phone] Does the patient use Medicaid Transportation?: No ? Next Level of Care (Acute Psych discharges only) ? Discharge Disposition Durable Medical Equipment No service has been selected for the patient. Destination No service has been selected for the patient. Home Care No service has been selected for the patient. Dialysis/Infusion No service has been selected for the patient. Tara Fields DISPOSAL OPERATOR, [facility] Nurse Assistant Casino Shift Manager Pager: [phone] * Care Plan - Jacinta Merritt RN [...] Post-Procedure Condition: stable Hugh Sim MD Pager [phone] * Case Mgmt DC Plan - Sade [...] every 2 weeks CM contacted [facility] [phone] No ability for this facility to obtain medication due to cost of med unless would be able to ship to facility for administration CM contacted med assist program, awaiting response [place] [phone] [place] assist with setting up this service [...] Name, Phone and Availability #1: Ex-, Robby [phone] Does the patient use Medicaid Transportation?: No [...] patient. Sade Francisco RN. MSN Integrated Nurse Assistant Casino Shift Manager Pager [phone] * Case Mgmt DC Plan - Marjan Galaviz - 08/14/2018 4:28 PM CDT Formatting of this note may be different from the original. Case Management Progress Note NAME:Betina Baron :1969 AGE: 48 y.o. ADMISSION DATE: 08/09/2018 DAYS ADMITTED: LOS: 5 days Todays Date: 08/14/2018 Plan DCP Ongoing: pt to remain in-house until appropriate DCP determined. Interventions ? Support Support: Pt/Family Updates re:POC or DC Plan SW reviewed EMR and discussed POC with team. ID following-pt currently on IV Dapto [id number] for long-term IV abx, duration unknown. DC [...] Medication Needs ? Financial Financial: Yamila Referral/Follow-up SW notified pt [place] Medicaid pending-however, system showing pt as uninsured. SW on Tuesday f/u with [employer] regarding coverage. ? Legal ? Other Disposition ? Expected Discharge Date Expected Discharge Date: 08/14/18 ? Transportation Does the patient need discharge transport arranged?: No (Pt may need assistance with a gas card) Transportation Name, Phone and Availability #1: Ex-, [place] [phone] Does the patient use Medicaid Transportation?: No ? Next Level of Care (Acute Psych discharges only) ? Discharge Disposition Durable Medical Equipment No service has been selected for the patient. [facility] Destination No service has been selected for the patient. Home Care No service has been selected for the patient. Dialysis/Infusion No service has been selected for the patient. -Nadia Galaviz, CARIDAD *[phone] * Procedures (Immed Post or Bedside) [...] Post-Procedure Condition: stable Clemente Sam MD Pager [phone] * Procedures (Immed Post or Bedside) - [...] procedure with the patient Physical Status Classification ([place] Society of Anesthesiologists): ASA III (A patient with a severe systemic disease that limits activity, but is not incapacitating) Sedation/Medication Plan Sedation plan per Anesthesiology * Care Plan - Odin Oden - 08/10/2018 3:26 PM CDT Problem: Tobacco Use Goal: Knowledge of tobacco-use cessation methods Outcome: Goal Achieved Date Met: 08/10/18 [facility] CONSULTATION ASSESSMENT/RECOMMENDATIONS Patient was referred for [facility] consultation Tobacco Use Treatment Practical Counseling was provided, including recognizing danger situations, developing coping skills and providing basic information about quitting. MEDICATION RECOMMENDATIONS TO QUIT TOBACCO: In-patient quit-tobacco medication: If medically acceptable, please provide Nicotine patch (21 mg) and 2 mg nicotine gum. Discharge medication options: If acceptable, please provide DC Rx for Nicotine Inhaler Inhaler is not stocked in [facility], please provide a paper Rx or send to outside pharmacyInhaler is not stocked in [facility], please provide a paper Rx or send to outside pharmacy Post discharge support referral: Accepted Follow up provided by [facility] to begin one day after discharge [facility] Educational Material: Accepted History of Present [...] can be of further assistance, please call [facility] [phone] * Case Mgmt DC Plan - Claudia Baeza - 08/10/2018 2:21 PM CDT Request for Case Management Resources Delivered one gas voucher to pt's marva per the request of CINDY Gillespie. Claudia Baeza Assembler Watch Train * Case Mgmt DC Plan - Vy Guillen - 08/10/2018 1:33 PM CDT Formatting of this note may be different from the original. Case Management Progress Note NAME:Betina Baron :1969 AGE: 48 y.o. ADMISSION DATE: 08/09/2018 DAYS ADMITTED: LOS: 1 day Todays Date: 08/10/2018 Plan Pt anticipated to d/c home once medically stable. Interventions ? Support ? Info or Referral ? Discharge Planning LUIS requested DUST MILL OPERATOR deliver gas voucher to pt ish. LUIS attempted to see pt X2. SW placed list of mental health resources near her home including [facility] and [facility] in pt ish and will f/u. ? Medication Needs ? Financial ? Legal ? Other Disposition ? Expected Discharge Date Expected Discharge Date: 08/14/18 ? Transportation Does the patient need discharge transport arranged?: No (Pt may need assistance with a gas card) Transportation Name, Phone and Availability #1: Ex-, [place] [phone] Does the patient use Medicaid Transportation?: No ? Next Level of Care (Acute Psych discharges only) ? Discharge Disposition Durable Medical Equipment No service has been selected for the patient. Destination No service has been selected for the patient. Home Care No service has been selected for the patient. Dialysis/Infusion No service has been selected for the patient. Vy Guillen, [facility] [phone] * Anesthesia Post Op Day 1 - [...] 322) Height: 180.3 cm (71") (08/09 0800) Patient [...] in dextrose 5% (D5W) 250 mL IVPB ([id number]) 15 mg /kg Intravenous Q12H* Continuous Infusions: [...] Regional/Neuroaxial: * Operative Report (DICTATED ONLY) - Kim Mccarthy MD - 08/09/2018 7:16 PM CDT [address] [id number] PATIENT NAME: BETINA BARON MR#/PT#: [id number] Page 2 OPERATIVE REPORT DATE OF OPERATION: 08/09/2018 SURGEON: Kim Mccarthy MD LINK MACHINE OPERATOR(S): Dani Juárez MD PREOPERATIVE DIAGNOSIS: 1. Left [...] General anesthesia. INDICATIONS FOR OPERATIVE PROCEDURE: Ms. Braon is a 48-year-old female, who presented to the hospital with symptoms of severe pain in her left [id number] amputation stump radiating up her leg to [...] LOSS: 200 mL. SPECIMENS REMOVED: arterial thrombus Kim Mccarthy MD J / MEDQ /[id number] cc: - Kim Mccarthy MD * Case Mgmt DC Plan - Vy Guillen - 08/09/2018 4:22 PM CDT Case Management Admission Assessment NAME:Betina Baron :1969 AGE: 48 y.o. ADMISSION DATE: 08/09/2018 DAYS ADMITTED: LOS: 0 days Todays Date: 08/09/2018 Source of Information: Pt and EMR Plan Plan: CM Assessment, Discharge Planning for Home Anticipated, Assist PRN with SW /NCM Services SW referred pt to financial counseling to assess Medicaid status. Pt interested in mental health resources in [facility] to f/u. Pt ex- to transport at d/c, but will likely need gas card. Robby works during the day and driving to Tuesday-Tuesday. Pt reports she did not f/u with safety net clinic and was not regularly taking her medication or having her INRs checked. Patient Address/Phone [address] [facility] [address] (home) Emergency Contact Extended Emergency Contact Information Primary Emergency Contact: Robby Baron [facility] Relation: Spouse Secondary Emergency Contact: Margie Baron [facility] Relation: Daughter Healthcare Directive Transportation Does the patient need discharge transport arranged?: No (Pt may need assistance with a gas card) Transportation Name, Phone and Availability #1: Ex-Robby [phone] Does the patient use Medicaid Transportation?: No [...] Pt reports she has had treatment in [place], [place]. ? Other None Current/Previous Services ? PCP Dave Lorenzana, , ? Pharmacy [facility][id number] - [facility] [address] [facility] [address] [facility], [place] [address] ? Durable Medical Equipment Durable Medical Equipment at home: Wheelchair (manual) ? Home Health Receiving home health: In the past Agency name: Pt could not recall, it was in [place] ? Hemodialysis or Peritoneal Dialysis Undergoing hemodialysis or peritoneal dialysis: No ? Tube/Enteral Feeds Receive tube/enteral feeds: No ? Infusion Receive infusions: No ? Private Duty Private duty help used: No ? Home and Community Based Services Home and community based services: No ? Dain Sena: N/A ? Hospice Hospice: No ? Outpatient Therapy PT: No OT: No HOSPITAL CNA: No ? Half-Way Facility/Correction SNF: No NH: No ? Inpatient Rehab IPR: No ? Long-Term Acute Care Hospital LTACH: No ? Acute Hospital Stay Acute Hospital Stay: In the past Was patient's stay within the last 30 days?: No When did patient receive care?: March 2018 [phone] * Procedures (Immed Post or Bedside) - [...] - Resident - Assisting Findings: Thrombectomy left DIAMOND SIZER AND GRADER at bifurcation. Thrombectomy Right popliteal. 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 Patent right peroneal artery. Estimated Blood Loss: 200 ml Specimen(s) Removed/Disposition: arterial thrombus Complications: None Implants: None Drains: None Disposition: PACU - stable Dani Juárez MD Pager * Care Coordination-Inpatient - Francisco Bravo DO - 08/08/2018 10:59 PM CDT Internal Medicine Transfer Acceptance Note EMTALA transfer Requesting Facility: [place] [facility] Reason for Transfer: Patient is a [...] warranted for verification upon patient arrival. Francisco Bravo, DO Internal Medicine Pager [phone] in this encounter Plan of Treatment Name [...] GRAFT 8:00 AM CDT mural thrombus without NM CTA ABD AORTA & SREEDHAR RUN STAT [...] MG/DL K[facility] MAIN LAB Performing Organization Address [facility] Phone Number MAIN LAB [address] [place] [address] * CBC (08/22/2018 12:03 PM) White Blood Cells 29.1 (H) 4.5 - 11.0 K/UL MAIN LAB RBC 2.72 (L) 4.0 - 5.0 M/UL [facility] MAIN LAB Hemoglobin 7.9 (L) 12.0 - 15.0 GM/DL [facility] MAIN LAB Hematocrit 24.0 (L) 36 - 45 % [facility] MAIN LAB MCV 88.4 80 - 100 FL [facility] MAIN LAB MCH 29.2 26 - [address] [facility] MCHC 33.0 32.0 - 36.0 G/DL [facility] RDW 18.2 (H) 11 - 15 % MAIN LAB Platelet Count 849 (H) 150 - 400 K/UL [facility] MPV 7.4 7 - [address] [facility] Specimen Blood Performing Organization Address [facility] Phone Number [facility] [address] [place] [address] * POC GLUCOSE (08/22/2018 11:43 AM) Glucose, POC 137 (H) 70 - 100 MG/DL [facility] MAIN LAB Performing Organization Address [facility] Phone Number [facility] [address] [place] [address] * TRANSFUSE RBC'S NON-BLEEDING PT (08/22/2018 9:19 AM) * ECG-SCAN (08/22/2018 8:25 AM) Narrative Performed At Ordered by an unspecified provider. * POC GLUCOSE (08/22/2018 6:56 AM) Glucose, POC 303 (H) 70 - 100 MG/DL [facility] MAIN LAB Performing Organization Address City/[facility]/Zipcode Phone Number [facility] MAIN LAB [address] [place] [phone] * POC GLUCOSE (08/22/2018 5:59 AM) Glucose, POC 289 (H) 70 - 100 MG/DL [facility] MAIN LAB Performing Organization Address City/[facility] Phone Number [facility] LAB [address] [place] [address] * CBC AND DIFF (08/22/2018 3:25 AM) [...] MAIN LAB Specimen Blood Performing Organization Address City/[facility]/Zipcode Phone Number [facility] [address] [place] [address] * COMPREHENSIVE METABOLIC PANEL (08/22/2018 3:25 AM) Sodium 131 (L) 137 - 147 MMOL/L [facility] MAIN LAB Potassium 4.9 3.5 - 5.1 MMOL/L [facility] MAIN LAB Chloride 99 98 - 110 MMOL/L MAIN LAB Glucose 193 (H) 70 - [...] ALT (SGPT) 8 7 - 56 U/L MAIN LAB Anion Gap 5 3 - 12 MAIN LAB eGFR Non >60 >60 mL/min [facility] MAIN LAB Comment: The eGFR is not validated for use in drug dosing adjustments.Continue to use estimated creatinine clearance per dosing reference text.Please contact the Clinical Pharmacist for questions. eGFR >60 >60 mL/min MAIN LAB Comment: The eGFR is not validated for use in drug dosing adjustments.Continue to use estimated creatinine clearance per dosing reference text.Please contact the Clinical Pharmacist for questions. Specimen Blood Performing Organization Address City/[facility]/Zipcode Phone Number [facility] [address] [place] [address] * POC GLUCOSE (08/21/2018 9:54 PM) Glucose, POC 214 (H) 70 - 100 MG/DL [facility] MAIN LAB Performing Organization Address City/[facility]/Zipcode Phone Number [facility] [address] [place] [address] * POC GLUCOSE (08/21/2018 6:57 PM) Glucose, POC 208 (H) 70 - 100 MG/DL [facility] MAIN LAB Performing Organization Address [facility] Phone Number MAIN LAB [address] [place] [address] * POC GLUCOSE (08/21/2018 12:18 PM) Glucose, POC 169 (H) 70 - 100 MG/DL [facility] MAIN LAB Performing Organization Address [facility] Phone Number MAIN LAB [address] [place] [phone] * CBC (08/21/2018 10:19 AM) White Blood Cells 27.0 (H) 4.5 - 11.0 K/UL [facility] MAIN LAB RBC 2.63 (L) 4.0 - 5.0 M/UL MAIN LAB Hemoglobin 7.8 (L) 12.0 - 15.0 GM/DL [facility] MAIN LAB Hematocrit 23.4 (L) 36 - 45 % [facility] MAIN LAB MCV 89.0 80 - 100 FL [facility] MAIN LAB MCH 29.6 26 - 34 PG [facility] MAIN LAB MCHC 33.3 32.0 - 36.0 G/DL [facility] MAIN LAB RDW 16.5 (H) 11 - 15 % [facility] MAIN LAB Platelet Count 655 (H) 150 - 400 K/UL [facility] MAIN LAB MPV 8.0 7 - 11 FL MAIN LAB Specimen Blood Performing Organization Address [facility] Phone Number [facility] MAIN LAB [address] [place] [address] * POC GLUCOSE (08/21/2018 7:20 AM) Glucose, POC 275 (H) 70 - 100 MG/DL [facility] MAIN LAB Performing Organization Address [facility] Phone Number MAIN LAB [address] [place] [address] * TYPE & CROSSMATCH (08/21/2018 5:45 AM) Units Ordered 3 MAIN LAB Crossmatch Expires 08/24/2018 MAIN LAB Record Check FOUND [facility] MAIN LAB ABO/RH(D) A NEG MAIN LAB Antibody Screen NEG MAIN LAB Electronic Crossmatch YES MAIN LAB Unit Number [id number] MAIN LAB Blood Component Type RBC,ADSOL,LEUKO REDUCED [facility] MAIN LAB Unit Division 0 MAIN LAB Status OF Unit TRANSFUSED [facility] MAIN LAB Transfusion Status OK TO TRANSFUSE MAIN LAB Crossmatch Result COMPATIBLE,ELECTRONIC MAIN LAB Unit Number [id number] MAIN LAB Blood Component Type RBC,ADSOL,LEUKO REDUCED [facility] MAIN LAB Unit Division 0 MAIN LAB Status OF Unit TRANSFUSED [facility] MAIN LAB Transfusion Status OK TO TRANSFUSE MAIN LAB Crossmatch Result COMPATIBLE,ELECTRONIC MAIN LAB Specimen Blood Performing Organization Address City/[facility] Phone Number MA[facility] LAB [address] [place] [address] * CBC AND DIFF (08/21/2018 4:52 AM) White Blood Cells 21.3 (H) 4.5 - 11.0 K/UL MAIN LAB RBC 2.03 (L) 4.0 - 5.0 M/UL MAIN LAB Hemoglobin 6.0 (L) 12.0 - 15.0 GM/DL MAIN LAB Hematocrit 18.4 (L) 36 - 45 % MAIN LAB MCV 90.7 80 - 100 FL MAIN LAB MCH 29.5 26 - 34 PG MAIN LAB MCHC 32.6 32.0 - 36.0 G/DL [facility] RDW 18.1 (H) 11 - 15 % MAIN LAB Platelet Count 544 (H) 150 - 400 K/UL MAIN LAB MPV 7.9 7 - 11 FL MAIN LAB Neutrophils 86 (H) 41 - 77 % MAIN LAB Lymphocytes 7 (L) 24 - 44 % MAIN LAB Monocytes 2 (L) 4 - 12 % [facility] Eosinophils 3 0 - 5 % [facility] Basophils 2 0 - 2 % MAIN LAB Absolute Neutrophil Count 18.30 (H) 1.8 - 7.0 K/UL MAIN LAB Absolute Lymph Count 1.40 1.0 - 4.8 K/UL MAIN LAB Absolute Monocyte Count 0.50 0 - 0.80 K/UL MAIN LAB Absolute Eosinophil Count 0.60 (H) 0 - 0.45 K/UL [facility] MAIN LAB Absolute Basophil Count 0.40 (H) 0 - 0.20 K/UL MAIN LAB Specimen Blood Performing Organization Address [facility]/Zipcode Phone Number MAIN LAB [address] [place] [address] * COMPREHENSIVE METABOLIC PANEL (08/21/2018 4:22 AM) [...] for questions. Specimen Blood Performing Organization Address City/[facility]/Zipcode Phone Number [facility] [address] [place] [address] * POC GLUCOSE (08/20/2018 8:32 PM) Glucose, POC 279 (H) 70 - 100 MG/DL [facility] MAIN LAB Performing Organization Address City/[facility]/Zipcode Phone Number MAIN LAB [address] [place] [address] * POC GLUCOSE (08/20/2018 4:50 PM) Glucose, POC 100 70 - 100 MG/DL [facility] MAIN LAB Performing Organization Address [facility]/Zipcode Phone Number MAIN LAB [address] [place] [address] * BASIC METABOLIC PANEL (08/20/2018 4:48 PM) [...] for questions. Specimen Blood Performing Organization Address City/[facility]/Zipcode Phone Number MAIN LAB [address] [place] [address] * POC GLUCOSE (08/20/2018 11:19 AM) Glucose, POC 125 (H) 70 - 100 MG/DL [facility] MAIN LAB Performing Organization Address City/[facility] Phone Number MA[facility] LAB [address] [place] [address] * POC GLUCOSE (08/20/2018 7:25 AM) Glucose, POC 136 (H) 70 - 100 MG/DL [facility] MAIN LAB Performing Organization Address [facility]/Zipcode Phone Number MAIN LAB [address] [place] [address] * CBC AND DIFF (08/20/2018 3:24 AM) [...] City/State/Zipcode Phone Number [facility] MAIN LAB [address] [place] [address] * COMPREHENSIVE METABOLIC PANEL (08/20/2018 3:24 AM) [...] for questions. Specimen Blood Performing Organization Address City/[facility] Phone Number MAIN LAB [address] [place] [address] * CBC (08/19/2018 9:50 PM) White Blood Cells 16.5 (H) 4.5 - 11.0 K/UL [facility] MAIN LAB RBC 2.57 (L) 4.0 - 5.0 M/UL [facility] MAIN LAB Hemoglobin 7.6 (L) 12.0 - 15.0 GM/DL [facility] MAIN LAB Hematocrit 22.2 (L) 36 - 45 % [facility] MAIN LAB MCV 86.6 80 - 100 FL [facility] MAIN LAB MCH 29.4 26 - 34 PG [facility] MAIN LAB MCHC 34.0 32.0 - 36.0 G/DL [facility] MAIN LAB RDW 17.0 (H) 11 - 15 % [facility] MAIN LAB Platelet Count 404 (H) 150 - 400 K/UL [facility] MAIN LAB MPV 8.6 7 - 11 FL MAIN LAB Specimen Blood Performing Organization Address City/[facility] Phone Number [facility] [address] [place] [address] * POC GLUCOSE (08/19/2018 9:46 PM) Glucose, POC 143 (H) 70 - 100 MG/DL [facility] MAIN LAB Performing Organization Address City/[facility] Phone Number [facility] [address] [place] [address] * POC GLUCOSE (08/19/2018 8:21 PM) Glucose, POC 116 (H) 70 - 100 MG/DL [facility] MAIN LAB Performing Organization Address [facility] Phone Number [facility] [address] [place] [address] * POC GLUCOSE (08/19/2018 5:22 PM) Glucose, POC 186 (H) 70 - 100 MG/DL [facility] MAIN LAB Performing Organization Address [facility] Phone Number [facility] [address] [place] [address] * CBC (08/19/2018 3:20 PM) White Blood Cells 20.9 (H) 4.5 - 11.0 K/UL [facility] MAIN LAB RBC 2.53 (L) 4.0 - 5.0 M/UL [facility] MAIN LAB Hemoglobin 7.5 (L) 12.0 - 15.0 GM/DL [facility] MAIN LAB Hematocrit 22.9 (L) 36 - 45 % [facility] MAIN LAB MCV 90.2 80 - 100 FL [facility] MAIN LAB MCH 29.7 26 - 34 PG [facility] MAIN [facility] MCHC 32.9 32.0 - 36.0 G/DL [facility] MAIN LAB RDW 16.7 (H) 11 - 15 % [facility] MAIN LAB Platelet Count 388 150 - 400 K/UL [facility] MAIN LAB MPV 8.7 7 - 11 FL [facility] MAIN LAB Specimen Blood Performing Organization Address [facility] Phone Number [facility] MAIN [facility] [address] [place] [address] * POC GLUCOSE (08/19/2018 11:47 AM) Glucose, POC 140 (H) 70 - 100 MG/DL [facility] MAIN LAB Performing Organization Address [facility] Phone Number [facility] MA[facility] [address] [place] [address] * POC GLUCOSE (08/19/2018 7:28 AM) Glucose, POC 341 (H) 70 - 100 MG/DL [facility] MAIN LAB Performing Organization Address [facility] Phone Number [facility] MAIN [facility] [address] [place] [address] * CBC (08/19/2018 5:30 AM) White Blood [...] LAB MCHC 33.8 32.0 - 36.0 G/DL MAIN LAB RDW 17.6 (H) 11 - 15 % [facility] MAIN LAB Platelet Count 286 150 - 400 K/UL [facility] MAIN LAB MPV 9.0 7 - 11 FL MAIN LAB Specimen Blood Performing Organization Address City/State/Zipcode Phone Number [facility] [address] [place] [address] * COMPREHENSIVE METABOLIC PANEL (08/19/2018 5:30 AM) [...] Blood Performing Organization Address City/State/Zipcode Phone Number [facility] [address] [place] [address] * POC GLUCOSE (08/18/2018 8:44 PM) Glucose, POC 266 (H) 70 - 100 MG/DL [facility] MAIN LAB Performing Organization Address City/[facility] Phone Number [facility] [address] [place] [address] * CBC (08/18/2018 8:30 PM) White Blood [...] LAB MPV 8.9 7 - 11 FL [facility] MAIN LAB Specimen Blood Performing Organization Address [facility] Phone Number [facility] MA[facility] [address] [place] [address] * IR BODY EMBOLIZATION (08/18/2018 4:50 PM) [...] was withdrawn and exchanged for a 6 [place]an sheath. The sheath was attached to a [...] adequate positioning of the microcatheter for embolization. [place] embolization was then performed through the microcatheter using 100-300 um embospheres. Postembolization digital subtraction angiogram was performed. This demonstrated adequate embolization of distal left uterine arterial branches, with slowed though persistent forward flow in the remaining uterine arterial branches. The microcatheter was then removed and the AMELIE 1 catheter was removed over a Bentson wire. Next, a 5 [place]an Cobra catheter was used to select the [...] was withdrawn and exchanged for a 6 [place] sheath. The sheath was attached to a [...] adequate positioning of the microcatheter for embolization. [place] embolization was then performed through the microcatheter using 100-300 um embospheres. Postembolization digital subtraction angiogram was performed. This demonstrated adequate embolization of distal left uterine arterial branches, with slowed though persistent forward flow in the remaining uterine arterial branches. The microcatheter was then removed and the AMELIE 1 catheter was removed over a Bentson wire. Next, a 5 [place] Cobra catheter was used to select the [...] on 08/18/2018 5:58 PM. Performing Organization Address [facility] Phone Number RAD RESULTS * TRANSFUSE RBC'S BLEEDING PT OR EXCHANGE TRANSFUSION (08/18/2018 2:52 PM) * TRANSFUSE RBC'S BLEEDING PT OR EXCHANGE TRANSFUSION (08/18/2018 2:52 PM) * POC GLUCOSE (08/18/2018 12:24 PM) Glucose, POC 165 (H) 70 - 100 MG/DL MAIN LAB Performing Organization Address [facility] Phone Number MAIN LAB [address] [place] [address] * POC GLUCOSE (08/18/2018 8:37 AM) Glucose, POC 174 (H) 70 - 100 MG/DL MAIN LAB Performing Organization Address [facility] Phone Number MAIN LAB [address] [place] [address] * CBC (08/18/2018 8:20 AM) White Blood [...] MAIN LAB Specimen Blood Performing Organization Address [facility] Phone Number [facility] [address] [place] [address] * CBC (08/18/2018 12:55 AM) White Blood [...] MAIN LAB Specimen Blood Performing Organization Address [facility] Phone Number [facility] MAIN [facility] [address] [place] [address] * COMPREHENSIVE METABOLIC PANEL (08/18/2018 12:55 AM) [...] for questions. Specimen Blood Performing Organization Address [facility]/Zipcode Phone Number MAIN LAB [address] [place] [address] * POC GLUCOSE (08/17/2018 8:16 PM) Glucose, POC 121 (H) 70 - 100 MG/DL [facility] MAIN LAB Performing Organization Address [facility] Phone Number MAIN LAB [address] [place] [address] * POC GLUCOSE (08/17/2018 6:00 PM) Glucose, POC 161 (H) 70 - 100 MG/DL MAIN LAB Performing Organization Address [facility] Phone Number MAIN LAB [address] [place] [address] * CBC (08/17/2018 5:22 PM) White Blood Cells 13.8 (H) 4.5 - 11.0 K/UL [facility] MAIN LAB RBC 2.69 (L) 4.0 - 5.0 M/UL MAIN LAB Hemoglobin 7.4 (L) 12.0 - 15.0 GM/DL [facility] MAIN LAB Hematocrit 22.8 (L) 36 - 45 % MAIN LAB MCV 84.7 80 - 100 FL MAIN LAB MCH 27.5 26 - 34 PG MAIN LAB MCHC 32.5 32.0 - 36.0 G/DL MAIN LAB RDW 21.0 (H) 11 - 15 % [facility] MAIN LAB Platelet Count 211 150 - 400 K/UL MAIN LAB MPV 8.7 7 - 11 FL MAIN LAB Specimen Blood Performing Organization Address [facility] Phone Number [facility] [address] [place] [address] * ECG-SCAN (08/17/2018 3:15 PM) Narrative Performed At Ordered by an unspecified provider. * TRANSFUSE RBC'S BLEEDING PT OR EXCHANGE TRANSFUSION (08/17/2018 3:06 PM) * TRANSFUSE RBC'S BLEEDING PT OR EXCHANGE TRANSFUSION (08/17/2018 3:06 PM) * CREATINE KINASE-CPK (08/17/2018 2:00 PM) Creatine Kinase 41 21 - 215 U/L MAIN LAB Specimen Blood Performing Organization Address [facility] Phone Number MAIN LAB [address] [place] [address] * POC GLUCOSE (08/17/2018 11:17 AM) Glucose, POC 209 (H) 70 - 100 MG/DL [facility] MAIN LAB Performing Organization Address [facility] Phone Number [facility] MAIN [facility] [address] [place] [address] * PROTIME INR (PT) (08/17/2018 10:34 AM) INR 0.9 0.8 - 1.2 MAIN LAB Specimen Blood Performing Organization Address [facility] Phone Number [facility] [address] [place] [address] * FIBRINOGEN (08/17/2018 10:34 AM) Fibrinogen 568 (H) 200 - 400 MG/DL MAIN LAB Specimen Blood Performing Organization Address [facility] Phone Number MAIN LAB [address] [place] [address] * CBC (08/17/2018 10:34 AM) White Blood Cells 11.4 (H) 4.5 - 11.0 K/UL [facility] MAIN LAB RBC 2.44 (L) 4.0 - 5.0 M/UL MAIN LAB Hemoglobin 6.6 (L) 12.0 - 15.0 GM/DL K[facility] MAIN LAB Hematocrit 20.5 (L) 36 - 45 % [facility] MAIN LAB MCV 84.2 80 - 100 FL K[facility] MAIN LAB MCH 27.1 26 - 34 PG MAIN LAB MCHC 32.2 32.0 - 36.0 G/DL [facility] MAIN LAB RDW 23.1 (H) 11 - 15 % [facility] MAIN LAB Platelet Count 193 150 - 400 K/UL [facility] MAIN LAB MPV 8.1 7 - 11 FL K[facility] MAIN LAB Specimen Blood Performing Organization Address [facility] Phone Number [facility] MAIN [facility] [address] [place] [address] * POC GLUCOSE (08/17/2018 8:14 AM) Glucose, POC 166 (H) 70 - 100 MG/DL [facility] MAIN LAB Performing Organization Address [facility] Phone Number [facility] MA[facility] [address] [place] [address] * TRANSFUSE RBC'S NON-BLEEDING PT (08/17/2018 7:15 AM) * TRANSFUSE RBC'S NON-BLEEDING PT (08/17/2018 7:15 AM) * POC GLUCOSE (08/17/2018 6:53 AM) Glucose, POC 187 (H) 70 - 100 MG/DL [facility] MAIN LAB Performing Organization Address [facility] Phone Number [facility] MAIN [facility] [address] [place] [address] * COMPREHENSIVE METABOLIC PANEL (08/17/2018 2:35 AM) [...] for questions. Specimen Blood Performing Organization Address City/[facility]/Zipcode Phone Number MAIN LAB [address] [place] [address] * CBC (08/17/2018 2:35 AM) White Blood Cells 11.1 (H) 4.5 - 11.0 K/UL MAIN LAB RBC 2.48 (L) 4.0 - 5.0 M/UL MAIN LAB Hemoglobin 6.6 (L) 12.0 - 15.0 GM/DL [facility] MAIN LAB Hematocrit 20.7 (L) 36 - 45 % MAIN LAB MCV 83.3 80 - 100 FL MAIN LAB MCH 26.4 26 - 34 PG MAIN LAB MCHC 31.7 (L) 32.0 - 36.0 G/DL MAIN LAB RDW 25.7 (H) 11 - 15 % MAIN LAB Platelet Count 186 150 - 400 K/UL MAIN LAB MPV 8.4 7 - 11 FL MAIN LAB Specimen Blood Performing Organization Address City/[facility] Phone Number MAIN LAB [address] [place] [address] * TRANSFUSE RBC'S BLEEDING PT OR EXCHANGE TRANSFUSION (08/17/2018 1:47 AM) * TRANSFUSE RBC'S BLEEDING PT OR EXCHANGE TRANSFUSION (08/17/2018 1:47 AM) * POC GLUCOSE (08/16/2018 9:05 PM) Glucose, POC 167 (H) 70 - 100 MG/DL [facility] MAIN LAB Performing Organization Address City/[facility]/Zipcode Phone Number MAIN LAB [address] [place] [address] * TYPE & CROSSMATCH (08/16/2018 8:53 PM) Units Ordered 6 MAIN LAB Crossmatch Expires 08/19/2018 KU MAIN LAB Record Check FOUND MAIN LAB ABO/RH(D) A NEG [facility] MAIN LAB Antibody Screen NEG [facility] MAIN LAB Electronic Crossmatch YES [facility] MAIN LAB Unit Number [id number] [facility] MAIN LAB Blood Component Type RBC,ADSOL,LEUKO REDUCED KU MAIN LAB Unit Division 0 KU MAIN LAB Status OF Unit TRANSFUSED [facility]U MAIN LAB Transfusion Status OK TO TRANSFUSE [facility] MAIN LAB Crossmatch Result COMPATIBLE,ELECTRONIC [facility] MAIN LAB Unit Number [id number] [facility] MAIN LAB Blood Component Type RBC,ADSOL,LEUKO REDUCED [facility] MAIN LAB Unit Division 0 KU MAIN LAB Status OF Unit TRANSFUSED [facility] MAIN LAB Transfusion Status OK TO TRANSFUSE [facility] MAIN LAB Crossmatch Result COMPATIBLE,ELECTRONIC [facility] MAIN LAB Unit Number [id number] [facility] MAIN LAB Blood Component Type RBC,ADSOL,LEUKO REDUCED,1ST [facility] MAIN LAB CONT. Unit Division 0 KU MAIN LAB Status OF Unit TRANSFUSED [facility] MAIN LAB Transfusion Status OK TO TRANSFUSE [facility] MAIN LAB Crossmatch Result COMPATIBLE,ELECTRONIC [facility] MAIN LAB Unit Number [id number] [facility] Blood Component Type RBC,ADSOL,LEUKO REDUCED [facility] Unit Division 0 [facility] Status OF Unit TRANSFUSED [facility] Transfusion Status OK TO TRANSFUSE [facility] Crossmatch Result COMPATIBLE,ELECTRONIC [facility] Unit Number [id number] [facility] Blood Component Type RBC,ADSOL,LEUKO REDUCED,1ST [facility] CONT. Unit Division 0 [facility] Status OF Unit TRANSFUSED [facility] Transfusion Status OK TO TRANSFUSE [facility] Crossmatch Result COMPATIBLE,ELECTRONIC [facility] Unit Number [id number] [facility] Blood Component Type RBC,ADSOL,LEUKO REDUCED [facility] Unit Division 0 [facility] Status OF Unit TRANSFUSED [facility] Transfusion Status OK TO TRANSFUSE [facility] Crossmatch Result COMPATIBLE,ELECTRONIC [facility] Specimen Blood Performing Organization Address City/State/Zipcode Phone Number [facility] [address] [place] [address] * POC GLUCOSE (08/16/2018 5:20 PM) Glucose, POC 163 (H) 70 - 100 MG/DL [facility] Performing Organization Address City/[facility]/Zipcode Phone Number [facility] [address] [place] [address] * CBC (08/16/2018 3:50 PM) White Blood Cells 9.5 4.5 - 11.0 K/[facility] RBC 2.49 (L) 4.0 - 5.0 M/UL [facility] Hemoglobin 6.5 (L) 12.0 - 15.0 GM/DL MAIN LAB Hematocrit 19.8 (L) 36 - 45 % MAIN LAB MCV 79.7 (L) 80 - 100 FL [facility]IN LAB MCH 26.0 26 - 34 PG [facility]IN LAB MCHC 32.6 32.0 - 36.0 G/DL MAIN LAB RDW 27.1 (H) 11 - 15 % MAIN LAB Platelet Count 203 150 - 400 K/UL [facility]IN [facility] MPV 7.8 7 - 11 FL MAIN LAB Specimen Blood Performing Organization Address [facility] Phone Number [facility] [address] [place] [address] * POC GLUCOSE (08/16/2018 11:37 AM) Glucose, POC 272 (H) 70 - 100 MG/DL [facility] Performing Organization Address [facility] Phone Number [facility] [address] [place] [address] * CBC (08/16/2018 8:10 AM) White Blood Cells 9.5 4.5 - 11.0 K/[facility] RBC 2.92 (L) 4.0 - 5.0 M/UL MAIN LAB Hemoglobin 7.5 (L) 12.0 - 15.0 GM/DL MAIN LAB Hematocrit 23.7 (L) 36 - 45 % MAIN LAB MCV 81.1 80 - 100 FL MAIN LAB MCH 25.5 (L) 26 - 34 PG MAIN LAB MCHC 31.5 (L) 32.0 - 36.0 G/DL [facility] RDW 26.2 (H) 11 - 15 % MAIN LAB Platelet Count 206 150 - 400 K/UL MAIN [facility] MPV 7.6 7 - 11 FL MAIN LAB Specimen Blood Performing Organization Address [facility] Phone Number MA[facility] LAB [address] [place] [address] * POC GLUCOSE (08/16/2018 7:05 AM) Glucose, POC 166 (H) 70 - 100 MG/DL [facility] Performing Organization Address [facility]/State/Zipcode Phone Number MAIN LAB [address] [place] [address] * COMPREHENSIVE METABOLIC PANEL (08/16/2018 5:35 AM) [...] for questions. Specimen Blood Performing Organization Address [facility]/Zipcode Phone Number [facility] [address] [place] [address] * TRANSFUSE RBC'S NON-BLEEDING PT (08/16/2018 4:39 [...] LAB MPV 7.7 7 - 11 FL MAIN LAB Specimen Blood Performing Organization Address City/[facility] Phone Number [facility] LAB [address] [place] [address] * POC GLUCOSE (08/15/2018 9:08 PM) Glucose, POC 155 (H) 70 - 100 MG/DL MAIN LAB Performing Organization Address [facility] Phone Number MAIN LAB [address] [place] [address] * TRANSFUSE RBC'S BLEEDING PT OR EXCHANGE TRANSFUSION (08/15/2018 6:52 PM) * CBC (08/15/2018 6:46 PM) White Blood Cells 9.6 4.5 - 11.0 K/[facility] RBC 3.41 (L) 4.0 - 5.0 M/UL [facility] Hemoglobin 8.6 (L) 12.0 - 15.0 GM/DL [facility] Hematocrit 26.9 (L) 36 - 45 % MAIN LAB MCV 78.8 (L) 80 - 100 FL MAIN LAB MCH 25.2 (L) 26 - 34 PG MAIN LAB MCHC 31.9 (L) 32.0 - 36.0 G/DL MAIN LAB RDW 28.2 (H) 11 - 15 % MAIN LAB Platelet Count 204 150 - 400 K/UL MAIN LAB MPV 8.4 7 - 11 FL MAIN LAB Specimen Blood Performing Organization Address [facility] Phone Number MAIN LAB [address] [place] [address] * FIBRINOGEN (08/15/2018 6:46 PM) Fibrinogen 752 (H) 200 - 400 MG/DL MAIN LAB Specimen Blood Performing Organization Address [facility] Phone Number [facility] [address] [place] [address] * PROTIME INR (PT) (08/15/2018 6:46 PM) INR 0.9 0.8 - 1.2 [facility] Specimen Blood Performing Organization Address [facility] Phone Number [facility] [address] [place] [address] * POC GLUCOSE (08/15/2018 5:42 PM) Glucose, POC 164 (H) 70 - 100 MG/DL [facility] Performing Organization Address [facility] Phone Number [facility] [address] [place] [address] * TRANSFUSE RBC'S BLEEDING PT OR EXCHANGE TRANSFUSION (08/15/2018 3:45 PM) * POC GLUCOSE (08/15/2018 11:36 AM) Glucose, POC 258 (H) 70 - 100 MG/DL [facility] Performing Organization Address [facility] Phone Number [facility] [address] [place] [address] * POC GLUCOSE (08/15/2018 6:52 AM) Glucose, POC 271 (H) 70 - 100 MG/DL [facility] Performing Organization Address [facility] Phone Number [facility] [address] [place] [address] * CBC (08/15/2018 6:52 AM) White Blood Cells 9.0 4.5 - 11.0 K/UL [facility] RBC 2.75 (L) 4.0 - 5.0 M/UL [facility] Hemoglobin 6.6 (L) 12.0 - 15.0 GM/DL [facility] Hematocrit 20.6 (L) 36 - 45 % [facility] MCV 74.9 (L) 80 - 100 FL [facility] MCH 23.8 (L) 26 - 34 PG [facility] MCHC 31.8 (L) 32.0 - 36.0 G/DL MAIN LAB RDW 31.8 (H) 11 - 15 % [facility] Platelet Count 240 150 - 400 K/UL [facility] MPV 8.5 7 - 11 FL [facility] Specimen Blood Performing Organization Address [facility] Phone Number [facility] [address] [place] [address] * COMPREHENSIVE METABOLIC PANEL (08/15/2018 6:52 AM) [...] Organization Address City/State/Zipcode Phone Number MAIN LAB [address] [place] [address] * CBC (08/14/2018 10:32 PM) White Blood Cells 8.6 4.5 - 11.0 K/UL [facility] RBC 2.78 (L) 4.0 - 5.0 M/UL [facility] Hemoglobin 6.2 (L) 12.0 - 15.0 GM/DL [facility] Hematocrit 19.9 (L) 36 - 45 % [facility] MCV 71.3 (L) 80 - 100 FL [facility] MCH 22.1 (L) 26 - 34 PG MAIN LAB MCHC 31.0 (L) 32.0 - 36.0 G/DL [facility] RDW 32.4 (H) 11 - 15 % MAIN LAB Platelet Count 232 150 - 400 K/UL MAIN LAB MPV 8.6 7 - 11 FL MAIN LAB Specimen Blood Performing Organization Address City/[facility] Phone Number MAIN LAB [address] [place] [phone] * POC GLUCOSE (08/14/2018 8:48 PM) Glucose, POC 343 (H) 70 - 100 MG/DL [facility] Performing Organization Address [facility] Phone Number MAIN LAB [address] [place] [address] * POC GLUCOSE (08/14/2018 5:21 PM) Glucose, POC 217 (H) 70 - 100 MG/DL MAIN LAB Performing Organization Address [facility] Phone Number [facility] [address] [place] [address] * TRANSESOPHAGEAL ECHOCARDIOGRAM (08/14/2018 3:15 PM) BSA 1.85 m2 OTHER OUTSIDE LAB CV ECHO PV CONTRACT DRIVER NELLY Callejas OTHER OUTSIDE LAB Cardiology Ultrasound Siemens [id number] OTHER OUTSIDE LAB Machine ECHO EF 35 [...] color flow Doppler exam. Performing Organization Address [facility] Phone Number OTHER OUTSIDE LAB * POC GLUCOSE (08/14/2018 11:18 AM) Glucose, POC 129 (H) 70 - 100 MG/DL [facility] Performing Organization Address City/[facility] Phone Number [facility] [address] [place] [address] * POC GLUCOSE (08/14/2018 7:22 AM) Glucose, POC 251 (H) 70 - 100 MG/DL [facility] Performing Organization Address [facility] Phone Number [facility] [address] [place] [address] * COMPREHENSIVE METABOLIC PANEL (08/14/2018 3:29 AM) [...] for questions. Specimen Blood Performing Organization Address City/[facility]/Zipcode Phone Number [facility] [address] [place] [address] * CBC AND DIFF (08/14/2018 3:29 AM) [...] Lymph Count 1.20 1.0 - 4.8 K/[facility] Absolute Monocyte Count 0.80 0 - 0.80 K/[facility] Absolute Eosinophil Count 0.50 (H) 0 - 0.45 K/UL [facility] Absolute Basophil Count 0.10 0 - 0.20 K/UL [facility] Specimen Blood Performing Organization Address City/[facility] Phone Number MAIN LAB [address] [place] [address] * POC GLUCOSE (08/13/2018 8:28 PM) Glucose, POC 132 (H) 70 - 100 MG/DL MAIN LAB Performing Organization Address City/[facility] Phone Number [facility] [address] [place] [address] * CBC (08/13/2018 5:45 PM) White Blood Cells 9.7 4.5 - 11.0 K/[facility] RBC 3.72 (L) 4.0 - 5.0 M/UL [facility] Hemoglobin 8.0 (L) 12.0 - 15.0 GM/DL [facility] Hematocrit 26.6 (L) 36 - 45 % [facility] MCV 71.4 (L) 80 - 100 FL MAIN LAB MCH 21.4 (L) 26 - 34 PG MAIN LAB MCHC 29.9 (L) 32.0 - 36.0 G/DL MAIN LAB RDW 32.3 (H) 11 - 15 % MAIN LAB Platelet Count 294 150 - 400 K/UL MAIN LAB MPV 8.6 7 - 11 FL MAIN LAB Specimen Blood Performing Organization Address City/[facility] Phone Number MAIN LAB [address] [place] [address] * BASIC METABOLIC PANEL (08/13/2018 5:45 PM) Sodium 129 (L) 137 - 147 MMOL/L MAIN LAB Potassium 5.1 3.5 - 5.1 MMOL/L MAIN LAB Chloride 94 (L) 98 - 110 MMOL/L MAIN LAB CO2 28 21 - 30 MMOL/L MAIN LAB Anion Gap 7 3 - 12 MAIN LAB Glucose 278 (H) 70 - [...] Pharmacist for questions. eGFR >60 >60 mL/min MAIN LAB Comment: The eGFR is not validated for use in drug dosing adjustments.Continue to use estimated creatinine clearance per dosing reference text.Please contact the Clinical Pharmacist for questions. Specimen Blood Performing Organization Address City/[facility] Phone Number [facility] [address] [place] [address] * POC GLUCOSE (08/13/2018 5:31 PM) Glucose, POC 296 (H) 70 - 100 MG/DL MAIN LAB Performing Organization Address City/[facility]/Zipcode Phone Number MAIN LAB [address] [place] [address] * TRANSFUSE RBC'S NON-BLEEDING PT (08/13/2018 2:51 PM) * TRANSFUSE RBC'S NON-BLEEDING PT (08/13/2018 2:51 PM) * POC GLUCOSE (08/13/2018 11:33 AM) Glucose, POC 87 70 - 100 MG/DL [facility] Performing Organization Address City/State/Zipcode Phone Number [facility] [address] [place] [address] * TYPE & CROSSMATCH (08/13/2018 9:15 AM) Units Ordered 5 [facility] Crossmatch Expires 08/16/2018 [facility] Record Check FOUND [facility] ABO/RH(D) A NEG [facility] Antibody Screen NEG [facility] Electronic Crossmatch YES [facility] Unit Number [id number] [facility] Blood Component Type RBC,ADSOL,LEUKO REDUCED [facility] Unit Division 0 [facility] Status OF Unit TRANSFUSED [facility] Transfusion Status OK TO TRANSFUSE [facility] Crossmatch Result COMPATIBLE,ELECTRONIC [facility] Unit Number [id number] [facility] Blood Component Type RBC,ADSOL,LEUKO REDUCED,2ND [facility] CONT. Unit Division 0 [facility] Status OF Unit TRANSFUSED [facility] Transfusion Status OK TO TRANSFUSE [facility] Crossmatch Result COMPATIBLE,ELECTRONIC [facility] Unit Number [id number] [facility] Blood Component Type RBC,ADSOL,LEUKO REDUCED [facility] Unit Division 0 [facility] Status OF Unit TRANSFUSED [facility] Transfusion Status OK TO TRANSFUSE [facility] Crossmatch Result COMPATIBLE,ELECTRONIC [facility] Unit Number [id number] [facility] Blood Component Type RBC,ADSOL,LEUKO REDUCED [facility] Unit Division 0 [facility] Status OF Unit TRANSFUSED [facility] Transfusion Status OK TO TRANSFUSE [facility] Crossmatch Result COMPATIBLE,ELECTRONIC [facility] Unit Number [id number] [facility] Blood Component Type RBC,ADSOL,LEUKO REDUCED,2ND [facility] CONT. Unit Division 0 [facility] Status OF Unit TRANSFUSED [facility] Transfusion Status OK TO TRANSFUSE [facility] Crossmatch Result COMPATIBLE,ELECTRONIC [facility] Specimen Blood Performing Organization Address City/State/Zipcode Phone Number [facility] [address] [place] [address] * COMPREHENSIVE METABOLIC PANEL (08/13/2018 5:15 AM) Sodium 131 (L) 137 - 147 MMOL/L [facility] Potassium 5.8 (H) 3.5 - 5.1 MMOL/L [facility] Chloride 99 98 - 110 MMOL/L [facility] Glucose 199 (H) 70 - 100 MG/DL [facility]IN [...] 5.0 G/DL [facility] Alk Phosphatase 134 (H) 25 - 110 U/L [facility] AST (SGOT) 19 7 - 40 U/L [facility] CO2 30 21 - 30 MMOL/L [facility] ALT (SGPT) 18 7 - 56 U/L [facility] Anion Gap 2 (L) 3 - 12 [facility] eGFR [...] Organization Address City/State/Zipcode Phone Number MAIN LAB [address] [place] [address] * CBC AND DIFF (08/13/2018 5:15 AM) White Blood Cells 9.7 4.5 - 11.0 K/UL [facility] RBC 3.25 (L) 4.0 - 5.0 M/UL [facility] Hemoglobin 6.8 (L) 12.0 - 15.0 GM/DL [facility] Hematocrit 22.4 (L) 36 - 45 % [facility] MCV 68.8 (L) 80 - 100 FL [facility] MCH 20.8 (L) 26 - [...] Count 0.90 (H) 0 - 0.80 K/UL [facility] Absolute Eosinophil Count 0.50 (H) 0 - 0.45 K/UL [facility] Absolute Basophil Count 0.10 0 - 0.20 K/UL [facility] Specimen Blood Performing Organization Address City/[facility] Phone Number MAIN LAB [address] [place] [address] * POC GLUCOSE (08/12/2018 8:32 PM) Glucose, POC 172 (H) 70 - 100 MG/DL [facility] Performing Organization Address [facility] Phone Number MAIN LAB [address] [place] [address] * POC GLUCOSE (08/12/2018 5:58 PM) Glucose, POC 167 (H) 70 - 100 MG/DL MAIN LAB Performing Organization Address [facility] Phone Number MAIN LAB [address] [place] [address] * BASIC METABOLIC PANEL (08/12/2018 2:45 PM) [...] for questions. Specimen Blood Performing Organization Address City/[facility]/Zipcode Phone Number [facility] [address] [place] [address] * POC GLUCOSE (08/12/2018 12:18 PM) Glucose, POC 232 (H) 70 - 100 MG/DL [facility] Performing Organization Address [facility] Phone Number [facility] [address] [place] [address] * POC GLUCOSE (08/12/2018 7:26 AM) Glucose, POC 344 (H) 70 - 100 MG/DL [facility] Performing Organization Address [facility] Phone Number [facility] [address] [place] [address] * COMPREHENSIVE METABOLIC PANEL (08/12/2018 4:23 AM) [...] for questions. Specimen Blood Performing Organization Address City/[facility]/Zipcode Phone Number MAIN LAB [address] [place] [address] * CBC AND DIFF (08/12/2018 4:23 AM) [...] MAIN LAB Specimen Blood Performing Organization Address City/[facility]/Zipcode Phone Number MAIN LAB [address] [place] [address] * CREATINE KINASE-CPK (08/12/2018 4:23 AM) Creatine Kinase 44 21 - 215 U/L [facility] Specimen Blood Performing Organization Address City/[facility]/Zipcode Phone Number [facility] [address] [place] [address] * POC GLUCOSE (08/11/2018 8:56 PM) Glucose, POC 337 (H) 70 - 100 MG/DL [facility] Performing Organization Address [facility] Phone Number [facility] [address] [place] [address] * POC GLUCOSE (08/11/2018 6:10 PM) Glucose, POC 278 (H) 70 - 100 MG/DL [facility] Performing Organization Address City/[facility] Phone Number [facility] [address] [place] [address] * POC GLUCOSE (08/11/2018 12:29 PM) Glucose, POC 214 (H) 70 - 100 MG/DL [facility] Performing Organization Address [facility] Phone Number [facility] [address] [place] [address] * POC GLUCOSE (08/11/2018 9:37 AM) Glucose, POC 235 (H) 70 - 100 MG/DL [facility] Performing Organization Address [facility] Phone Number [facility] [address] [place] [phone] * COMPREHENSIVE METABOLIC PANEL (08/11/2018 4:03 AM) [...] Organization Address City/State/Zipcode Phone Number MAIN LAB [address] [place] [address] * CBC AND DIFF (08/11/2018 4:03 AM) [...] % [facility] Absolute Neutrophil Count 10.40 (H) 1.8 - 7.0 K/UL [facility] Absolute Lymph Count 0.80 (L) 1.0 - 4.8 K/UL [facility] Absolute Monocyte Count 1.00 (H) 0 - 0.80 K/UL [facility] Absolute Eosinophil Count 0.50 (H) 0 - 0.45 K/UL [facility] Absolute Basophil Count 0.00 0 - 0.20 K/UL MAIN LAB Specimen Blood Performing Organization Address City/[facility]/Zipcode Phone Number MAIN LAB [address] [place] [address] * POC GLUCOSE (08/10/2018 8:46 PM) Glucose, POC 140 (H) 70 - 100 MG/DL [facility] Performing Organization Address City/[facility] Phone Number MA[facility] LAB [address] [place] [address] * POC GLUCOSE (08/10/2018 5:46 PM) Glucose, POC 176 (H) 70 - 100 MG/DL [employer] MAIN LAB Performing Organization Address City/[facility] Phone Number MAIN LAB [address] [place] [phone] * PTT (APTT) (08/10/2018 1:15 PM) APTT 21.9Comment: NOTE NEW 20.0 - 36.0 SEC MAIN LAB REFERENCE RANGES Specimen Blood Performing Organization Address City/[facility] Phone Number MA[facility] LAB [address] [place] [address] * POC GLUCOSE (08/10/2018 12:06 PM) Glucose, POC 195 (H) 70 - 100 MG/DL MAIN LAB Performing Organization Address [facility] Phone Number MAIN LAB [address] [place] [address] * 2-D + DOPPLER ECHOCARDIOGRAM (08/10/2018 10:48 [...] OTHER OUTSIDE LAB S' Cardiology Ultrasound Siemens [id number] OTHER OUTSIDE LAB Machine Left Ventricle Mass [...] (08/10/2018 8:20 AM) Battery Name BLOOD CULTURE MAIN LAB Specimen Description BLOOD MAIN LAB LEFT ANTECUBITAL Special Requests NONE [facility] Culture NO GROWTH 5 DAYS [facility] Report Status FINAL MAIN LAB 08/16/2018 Specimen Blood Performing Organization Address City/State/Zipcode Phone Number MAIN LAB [address] [place] [address] * POC GLUCOSE (08/10/2018 7:33 AM) Glucose, POC 201 (H) 70 - 100 MG/DL [facility] Performing Organization Address City/[facility] Phone Number [facility] [address] [place] [address] * POC GLUCOSE (08/10/2018 3:18 AM) Glucose, POC 289 (H) 70 - 100 MG/DL [facility] Performing Organization Address City/[facility] Phone Number [facility] [address] [place] [address] * HEMOGLOBIN A1C (08/10/2018 3:14 AM) Hemoglobin A1C 10.3 (H) 4.0 - 6.0 % [facility] Comment: The ADA recommends that most patients with type 1 and type 2 diabetes maintain an A1c level <7%. Performing Organization Address City/[facility] Phone Number [facility] [address] [place] [phone] * PTT (APTT) (08/10/2018 3:14 AM) APTT 22.1Comment: NOTE NEW 20.0 - 36.0 SEC [facility] REFERENCE RANGES Specimen Blood Performing Organization Address [facility] Phone Number [facility] [address] [place] [phone] * COMPREHENSIVE METABOLIC PANEL (08/10/2018 3:14 AM) Sodium 127 (L) 137 - 147 MMOL/L [facility] Potassium 4.2 3.5 - 5.1 MMOL/L [facility] Chloride 98 98 - 110 MMOL/L [facility] Glucose 272 (H) 70 - [...] Address City/State/Zipcode Phone Number [facility] [address] [place] [address] * CBC AND DIFF (08/10/2018 3:14 AM) [...] MAIN LAB Specimen Blood Performing Organization Address [facility] Phone Number [facility] [address] [place] [address] * POC GLUCOSE (08/09/2018 11:24 PM) Glucose, POC 321 (H) 70 - 100 MG/DL [facility] Performing Organization Address [facility] Phone Number [facility] [address] [place] [address] * POC GLUCOSE (08/09/2018 9:06 PM) Glucose, POC 412 (H) 70 - 100 MG/DL [facility] Performing Organization Address [facility] Phone Number MAIN LAB [address] [place] [phone] * PTT (APTT) (08/09/2018 8:04 PM) APTT 24.2Comment: NOTE NEW 20.0 - 36.0 SEC [facility] REFERENCE RANGES Specimen Blood Performing Organization Address [facility] Phone Number MAIN LAB [address] [place] [address] * PHOSPHORUS (08/09/2018 3:00 PM) Phosphorus 2.7 2.0 - 4.0 MG/DL [facility] Specimen Blood Performing Organization Address [facility] Phone Number MAIN LAB [address] [place] [address] * MAGNESIUM (08/09/2018 3:00 PM) Magnesium 1.8 1.6 - 2.6 mg/dL [facility] Specimen Blood Performing Organization Address [facility] Phone Number [facility] [address] [place] [address] * COMPREHENSIVE METABOLIC PANEL (08/09/2018 3:00 PM) [...] Organization Address City/State/Zipcode Phone Number MAIN LAB [address] [place] [address] * CBC AND DIFF (08/09/2018 3:00 PM) [...] MCH 21.3 (L) 26 - 34 PG [facility] MCHC 30.0 (L) 32.0 - 36.0 G/DL [facility] RDW 31.8 (H) 11 - 15 % [facility] Platelet Count 275 150 - 400 K/UL [facility] MPV 8.8 7 - 11 FL [facility] Neutrophils 90 (H) 41 - [...] Count 0.50 (L) 1.0 - 4.8 K/UL [facility] Absolute Monocyte Count 1.60 (H) 0 - 0.80 K/UL MAIN LAB Absolute Eosinophil Count 0.00 0 - 0.45 K/UL [facility] Absolute Basophil Count 0.00 0 - 0.20 K/UL MAIN LAB Specimen Blood Performing Organization Address City/[facility]/Zipcode Phone Number MAIN LAB [address] [place] [address] * POC GLUCOSE (08/09/2018 2:29 PM) Glucose, POC 126 (H) 70 - 100 MG/DL [facility] Performing Organization Address City/[facility] Phone Number [facility] [address] [place] [address] * POC GLUCOSE (08/09/2018 1:48 PM) Glucose, POC 111 (H) 70 - 100 MG/DL [facility] Performing Organization Address City/[facility] Phone Number [facility] [address] [place] [address] * POC GLUCOSE (08/09/2018 12:44 PM) Glucose, POC 82 70 - 100 MG/DL [facility] Performing Organization Address City/[facility] Phone Number [facility] [address] [place] [address] * POC GLUCOSE (08/09/2018 12:27 PM) Glucose, POC 64 (L) 70 - 100 MG/DL [facility] Performing Organization Address City/[facility] Phone Number [facility] [address] [place] [address] * POC GLUCOSE (08/09/2018 11:40 AM) Glucose, POC 80 70 - 100 MG/DL [facility] Performing Organization Address City/[facility] Phone Number [facility] [address] [place] [address] * POC IONIZED CALCIUM (08/09/2018 11:12 AM) Ionized Calcium-POC 1.06 1.0 - 1.3 MMOL/L [facility] Performing Organization Address City/[facility]/Zipcode Phone Number [facility] [address] [place] [address] * POC SODIUM (08/09/2018 11:12 AM) Sodium-POC 131 (L) 137 - 147 MMOL/L [facility] Performing Organization Address [facility] Phone Number [facility] [address] [place] [address] * POC POTASSIUM (08/09/2018 11:12 AM) Potassium-POC 3.4 (L) 3.5 - 5.1 MMOL/L [facility] Performing Organization Address [facility] Phone Number MAIN LAB [address] [place] [address] * POC HEMATOCRIT (08/09/2018 11:12 AM) Hemoglobin POC 8.8 (L) 12.0 - 15.0 GM/DL MAIN LAB Hematocrit POC 26.0 (L) 36 - 45 % [facility] MAIN LAB Performing Organization Address [facility] Phone Number MAIN LAB [address] [place] [address] * POC BLOOD GAS ARTERIAL (08/09/2018 11:12 AM) PH-ART-POC 7.40 7.35 - 7.45 [facility] MAIN LAB [id number] 41 35 - 45 MMHG [facility] MAIN LAB PO2-ART-POC 488 (H) 80 - 100 MMHG [facility] MAIN LAB Base Ex-ART-POC 0.0 MMOL/L [facility] MAIN LAB O2 Sat-ART-POC 100.0 (H) 95 - 99 % [facility] MAIN LAB Hrkziuzecbb-YUV-VKU 24.9 21 - 28 MMOL/L [facility] MAIN LAB Performing Organization Address [facility] Phone Number MAIN LAB [address] [place] [address] * POC GLUCOSE (08/09/2018 10:34 AM) Glucose, POC 139 (H) 70 - 100 MG/DL [facility] MAIN LAB Performing Organization Address [facility] Phone Number MAIN LAB [address] [place] [address] * POC IONIZED CALCIUM (08/09/2018 9:29 AM) Ionized Calcium-POC 1.12 1.0 - 1.3 MMOL/L MAIN LAB Performing Organization Address City/[facility] Phone Number MAIN LAB [address] [place] [address] * POC SODIUM (08/09/2018 9:29 AM) Sodium-POC 129 (L) 137 - 147 MMOL/L [facility] MAIN LAB Performing Organization Address City/[facility] Phone Number MAIN LAB [address] [place] [address] * POC POTASSIUM (08/09/2018 9:29 AM) Potassium-POC 3.6 3.5 - 5.1 MMOL/L MAIN LAB Performing Organization Address City/[facility] Phone Number MAIN LAB [address] [place] [address] * POC HEMATOCRIT (08/09/2018 9:29 AM) Hemoglobin POC 9.2 (L) 12.0 - 15.0 GM/DL MAIN LAB Hematocrit POC 27.0 (L) 36 - 45 % MAIN LAB Performing Organization Address [facility] Phone Number MAIN LAB [address] [place] [address] * POC BLOOD GAS ARTERIAL (08/09/2018 9:29 AM) PH-ART-POC 7.35 7.35 - 7.45 MAIN LAB [id number] 47 (H) 35 - 45 MMHG [facility] MAIN LAB PO2-ART-POC 513 (H) 80 - 100 MMHG [facility] MAIN LAB Base Ex-ART-POC 0.0 MMOL/L MAIN LAB O2 Sat-ART-POC 100.0 (H) 95 - 99 % MAIN LAB Polnizchnxt-PRT-UIR 25.9 21 - 28 MMOL/L [facility] MAIN LAB Performing Organization Address City/[facility] Phone Number MAIN LAB [address] [place] [address] * POC GLUCOSE (08/09/2018 9:27 AM) Glucose, POC 219 (H) 70 - 100 MG/DL [facility] MAIN LAB Performing Organization Address City/[facility] Phone Number MAIN LAB [address] [place] [address] * BLOOD TYPE CONFIRMATION - ORDER ONLY IF REQUESTED BY LAB (08/09/2018 8:10 AM) ABO/RH(D) A NEG [facility] MAIN LAB Performing Organization Address [facility]/Zipcode Phone Number [facility] MAIN LAB [address] [place] [address] * PROTIME INR (PT) (08/09/2018 8:10 AM) INR 1.1 0.8 - 1.2 [facility] MAIN LAB Specimen Blood Performing Organization Address [facility]/Zipcode Phone Number MAIN LAB [address] [place] [phone] * CTA ABD AORTA & SREEDHAR RUN [...] urinary bladder is decompressed with an indwelling Fenrández catheter. The uterus is enlarged with nodular [...] on 08/09/2018 8:09 AM. Performing Organization Address City/[facility] Phone Number RAD RESULTS * POC GLUCOSE (08/09/2018 7:05 AM) Glucose, POC 391 (H) 70 - 100 MG/DL MAIN LAB Performing Organization Address [facility] Phone Number MAIN LAB [address] [place] [address] * POC GLUCOSE (08/09/2018 6:07 AM) Glucose, POC 432 (H) 70 - 100 MG/DL MAIN LAB Performing Organization Address [facility] Phone Number MAIN LAB [address] [place] [address] * POC GLUCOSE (08/09/2018 5:27 AM) Glucose, POC 393 (H) 70 - 100 MG/DL MAIN LAB Performing Organization Address [facility] Phone Number MAIN LAB [address] [place] [address] * CULTURE-BLOOD W/SENSITIVITY (08/09/2018 5:15 AM) Battery Name BLOOD CULTURE MAIN LAB Specimen Description BLOOD MAIN LAB LEFT WRIST aerobic bottle only Special Requests Culture performed on specimen MAIN LAB with less than the recommended volume of 10 ml/bottle. Decreased volume will affect sensitivity of culture. Culture NO GROWTH 5 DAYS [facility] MAIN LAB Report Status FINAL MAIN LAB 08/15/2018 Specimen Blood Performing Organization Address [facility] Phone Number MAIN LAB [address] [place] [address] * VRE SCREEN (08/09/2018 4:45 AM) Battery Name VRE SCREEN MAIN LAB Specimen Description PERIRECTAL SWAB MAIN LAB Special Requests NONE MAIN LAB Culture NO VRE ISOLATED MAIN LAB Report Status FINAL MAIN LAB 08/10/2018 Specimen Perirectal Swab Performing Organization Address [facility] Phone Number [facility] MAIN LAB [address] [place] [address] * TYPE & CROSSMATCH (08/09/2018 4:23 AM) Units Ordered 2 [facility] MAIN LAB Crossmatch Expires 08/12/2018 [facility] MAIN LAB Record Check 2ND TYPE REQUIRED [facility] MAIN LAB ABO/RH(D) A NEG MAIN LAB Antibody Screen NEG MAIN LAB Electronic Crossmatch YES MAIN LAB Unit Number [id number] MAIN LAB Blood Component Type RBC,ADSOL,LEUKO REDUCED,1ST [facility] MAIN LAB CONT. Unit Division 0 [facility] MAIN LAB Status OF Unit TRANSFUSED [facility] MAIN LAB Transfusion Status OK TO TRANSFUSE MAIN LAB Crossmatch Result COMPATIBLE,ELECTRONIC MAIN LAB Unit Number [id number] MAIN LAB Blood Component Type RBC,ADSOL,LEUKO REDUCED,2ND [facility] MAIN LAB CONT. Unit Division 0 MAIN LAB Status OF Unit REL FROM ALLOC MAIN LAB Transfusion Status OK TO TRANSFUSE MAIN LAB Crossmatch Result COMPATIBLE,ELECTRONIC MAIN LAB Performing Organization Address [facility] Phone Number MAIN LAB [address] [place] [address] * MRSA SCREEN (08/09/2018 4:23 AM) Battery Name MRSA SCREEN MAIN LAB Specimen Description NASAL MAIN LAB Special Requests NONE MAIN LAB Culture NO MRSA ISOLATED MAIN LAB Report Status FINAL MAIN LAB 08/10/2018 Specimen Nasal Performing Organization Address City/[facility]/Zipcode Phone Number [facility] MAIN LAB [address] [place] [address] * LACTIC ACID(LACTATE) (08/09/2018 4:23 AM) Lactic Acid 1.3 0.5 - 2.0 MMOL/L MAIN LAB Specimen Blood Performing Organization Address City/[facility]/Zipcode Phone Number [facility] MAIN LAB [address] [place] [address] * BASIC METABOLIC PANEL (08/09/2018 4:23 AM) Sodium 126 (L) 137 - 147 MMOL/L MAIN LAB Potassium 4.5 3.5 - 5.1 MMOL/L MAIN LAB Chloride 96 (L) 98 - 110 MMOL/L MAIN LAB CO2 20 (L) 21 - 30 MMOL/L [facility] MAIN LAB Anion Gap 10 3 - 12 MAIN LAB Glucose 348 (H) 70 - 100 MG/DL MAIN LAB Blood Urea Nitrogen 22 7 - 25 MG/DL MAIN LAB Creatinine 0.89 0.4 - 1.00 MG/DL [facility] Calcium 8.4 (L) 8.5 - 10.6 MG/DL MAIN LAB eGFR Non >60 >60 mL/min MAIN LAB Comment: The eGFR is not validated for use in drug dosing adjustments.Continue to use estimated creatinine clearance per dosing reference text.Please contact the Clinical Pharmacist for questions. eGFR >60 >60 mL/min [facility] Comment: The eGFR is not validated for use in drug dosing adjustments.Continue to use estimated creatinine clearance per dosing reference text.Please contact the Clinical Pharmacist for questions. Specimen Blood Performing Organization Address City/[facility]/Zipcode Phone Number [facility] [address] [place] [phone] * CBC (08/09/2018 4:23 AM) White Blood Cells 22.4 (H) 4.5 - 11.0 K/UL [facility] RBC 3.83 (L) 4.0 - 5.0 M/UL [facility] Hemoglobin 7.8 (L) 12.0 - 15.0 GM/DL [facility] Hematocrit 26.0 (L) 36 - 45 % [facility] MCV 67.9 (L) 80 - [address] [facility] MCH 20.4 (L) 26 - [address] [facility] MCHC 30.0 (L) 32.0 - 36.0 G/DL [facility] RDW 31.7 (H) 11 - 15 % [facility] Platelet Count 253 150 - 400 K/UL [facility] MPV 8.6 7 - [address] [facility] Specimen Blood Performing Organization Address City/[facility]/Zipcode Phone Number [facility] [address] [place] [address] * PTT (APTT) (08/09/2018 4:23 AM) APTT 21.7Comment: NOTE NEW 20.0 - 36.0 SEC [facility] MAIN LAB REFERENCE RANGES Specimen Blood Performing Organization Address City/[facility]/Zipcode Phone Number MAIN LAB [address] [place] [address] * POC GLUCOSE (08/09/2018 4:08 AM) Glucose, POC 373 (H) 70 - 100 MG/DL [facility] MAIN LAB Performing Organization Address City/[facility] Phone Number MAIN LAB [address] [place] [address] * US VENOUS DOPPLER EXTERNAL IMAGING (08/08/2018 [...] Diagnosis LV (left ventricular) mural thrombus without NM Other ill-defined heart disease Admitting Diagnoses Diagnosis dka DKA (diabetic ketoacidoses) ([facility]) Type II or unspecified type diabetes mellitus with ketoacidosis, not stated as uncontrolled LV (left ventricular) mural thrombus without NM Other ill-defined heart disease Administered Medications Medication [...] NOTE: This is a HIGH ALERT Medication. bacitracin (BACIIM) injection Given 08/09/2018 50,000 Units INTRA-PROCEDURE MED, Starting Tue 12:09 CDT 08/09/18 at 1209, Until Tue08/09/18 at 1425, Intra-op benzocaine/menthol (CHLORASEPTIC) Given 08/10/2018 1 lozenge lozenge 1 lozenge 01:09 CDT 1 lozenge, Oral, EVERY 2 HOURS PRN, Starting Tue08/09/18 at 2340, Until Tue08/22/18 at 2343, Mouth/Throat Pain carvedilol (COREG) tablet 3.125 mg Given 08/20/2018 3.125 mg 3.125 mg, Oral, TWICE DAILY, First dose 20:30 CDT on Tue08/20/18 at 0900, Until Discontinued, Hold for heart rate < 60 bpm and sbp<100 mm hg Given 08/21/2018 3.125 mg 08:11 CDT Given 08/22/2018 3.125 mg 08:36 CDT DAPTOmycin (CUBICIN) injection 700 mg Given 08/20/2018 700 mg 700 mg (rounded from 685 mg=10 mg/kg 15:09 CDT 68.5 kg Adjusted weight), 14 mL, Intravenous, Administer over 5 Minutes, EVERY 24 HOURS, First dose on Tue08/10/18 at 1500, Until Discontinued, Administer IV-Push over 5 minutes Given 08/21/2018 700 mg 15:04 CDT Given 08/22/2018 700 mg 15:00 CDT diphenhydrAMINE/lidocaine/antacid (#) Given 08/15/2018 10 mL (MAGIC MOUTHWASH) 1:1:1 suspension 10 mL 06:56 CDT 10 mL, Swish & Spit, THREE TIMES DAILY PRN, Starting Tue08/13/18 at 1236, Until Tue08/22/18 at 2343, Mouth/Throat Pain Given 08/15/2018 10 mL 23:51 CDT Given 08/16/2018 10 mL 22:31 CDT ferrous sulfate (FEOSOL, FEROSUL) tablet Given [...] 40 mg, Oral, DAILY, First dose on Sun 09:10 CDT 08/20/18 at 0900, Until Discontinued Given 08/21/2018 40 mg 08:11 CDT Given 08/22/2018 40 mg 08:35 CDT heparin (porcine) 5,000 Units in Given 08/09/2018 500 mL lactated ringers (LR) 500 mL irrigation 12:10 CDT 500 mL, INTRA-PROCEDURE MED, Starting Tue08/09/18 at 1210, Until Tue08/09/18 at 1231, Intra-op insulin aspart U-100 (NOVOLOG FLEXPEN) Given 08/21/2018 4 Units Arm, Left injection PEN 0-14 Units 21:54 CDT 0-14 Units, Subcutaneous, BEFORE MEALS AND AT BEDTIME, First dose on Tue08/09/18 at 1700, Until Discontinued, -POC glucose 140-180mg/dL at , , 17 administer 2 units insulin, at 21, [...] 08/22/2018 10 Units Abdomen:RLQ 16:54 CDT insulin glargine (LANTUS SOLOSTAR, Given 08/22/2018 25 Units Abdomen: RLQ BASAGLAR) injection PEN 25 Units 10:02 CDT 25 Units, Subcutaneous, TWICE DAILY, First dose on Tue08/22/18 at 0900, Until Discontinued, Continue if NPO. DO NOT mix with other insulins -- Do not mix with other insulins -- NOTE: This is a HIGH ALERT Medication. medroxyprogesterone (proVERA) tablet 10 Given 08/21/2018 10 mg mg 08:11 CDT 10 mg, Oral, TWICE DAILY, First dose on Tue08/11/18 at 1300, Until Discontinued Given 08/21/2018 10 mg 21:51 CDT Given 08/22/2018 10 mg 08:42 CDT methocarbamol (ROBAXIN) tablet 750 mg Given 08/21/2018 750 mg 750 mg, Oral, EVERY 8 HOURS, First dose 21:46 CDT on Tue08/18/18 at 1600, Until Discontinued Given 08/22/2018 750 mg 03:25 CDT Given 08/22/2018 750 mg 13:32 CDT naloxone (NARCAN) injection 0.08 mg 0.08 [...] (RR >7/min) and call Rapid Response Team. ondansetron (ZOFRAN) injection 4 mg Given 08/18/2018 4 mg 4 mg, Intravenous, EVERY 6 HOURS PRN, 14:41 CDT Starting Tue08/18/18 at 1344, Until Tue08/22/18 at 2343, Nausea/Vomiting Injectable oxyCODONE (ROXICODONE, OXY-IR) tablet Given 08/22/2018 10 mg 5-10 mg 05:16 CDT 5-10 mg, Oral, EVERY 3 HOURS PRN, Starting Tue08/18/18 at 1451, Until Tue08/22/18 at 2343, Pain PO Given 08/22/2018 10 mg 08:36 CDT Given 08/22/2018 10 mg 13:34 CDT polyethylene glycol 3350 (MIRALAX) Given 08/12/2018 17 g packet 17 g 20:25 CDT 17 g (1 packet), Oral, TWICE DAILY, First dose on Tue08/10/18 at 1115, Until Discontinued, 8.5 GRAMS=0.5 PACKET 17 GRAMS=1 PACKET 34 GRAMS=2 PACKETS Given 08/13/2018 17 g 08:04 CDT Given 08/13/2018 17 g 20:21 CDT senna/docusate (SENOKOT-S) tablet 1 Given 08/13/2018 1 tablet tablet 08:03 CDT 1 tablet, Oral, TWICE DAILY, First dose on Tue08/10/18 at 1215, Until Discontinued, Hold for loose stools Given 08/13/2018 1 tablet 20:21 CDT Given 08/14/2018 1 tablet 08:17 CDT vitamin A & D topical ointment [...] 1 tablet, Oral, DAILY, First dose on Tue08/21/18 at 1715, Until Discontinued Given 08/22/2018 1 tablet 08:35 CDT in this encounter
--- OUTSIDE RECORDS SUMMARY | 2018-09-06 04:47 | XMS REPORT | Encounter Summary ---
Author Author [facility] Organization [facility] Address Unknown Phone Unavailable Care Team Providers Care Helpdesk Administrator Name Role Phone Dave Lorenzana MD PCP Encounter Details Date Type Department Care Team Description 08/09/2018 Procedure Pass Burn Care ICU [facility] [address]th [address] [place] [address] Social History Tobacco Use Types Packs/Day Years [...]
--- OUTSIDE RECORDS SUMMARY | 2018-09-06 04:47 | XMS REPORT | Encounter Summary ---
Author Author [facility] Organization [facility] Address Unknown Phone Unavailable Care Team Providers Care Customer Service Dispatcher Name Role Phone Dave Lorenzana MD PCP Encounter Details Date Type Department Care Team Description 08/08/2018 Hospital [facility] Rad[facility] 2nd tx [address] [place] [address] Social History Tobacco Use Types Packs/Day Years Used Date Current Every Day Smoker Cigarettes 1 20 Smokeless Tobacco: Never Used Alcohol Use Drinks/Week oz/Week Comments No Sex Assigned at Date Recorded Not on file as of this encounter Functional Status Functional Status Response Date of Assessment Does the patient have a hearing impairment: No 04/11/2018 as of this encounter Medications at Time [...] w/minerals 9 mg iron-400 daily. mcg tab atorvastatin (LIPITOR) 40 Take 40 mg by mouth 08/22/2018 mg tablet daily. atorvastatin (LIPITOR) 80 Take 1 tablet by mouth 30 tablet 0 201708/22/2018 mg tablet daily. enoxaparin (LOVENOX) 80 Inject 0.8 mL under the 11.2 mL 0 04/18/2018 08/22/2018 mg syrg skin twice daily. insulin aspart U-100 Inject 8 Units under the 45 mL 3 04/18/2018 (NOVOLOG FLEXPEN) 100 skin three times daily unit/mL injection PEN with meals. insulin detemir(+) Inject 30 Units under the 08/22/2018 (LEVEMIR FLEXTOUCH U-100 skin at bedtime daily. INSULN) 100 unit/mL (3 mL) injection pen medroxyprogesterone Take 1 tablet by mouth 60 tablet 0 04/18/2018 (PROVERA) 10 mg tablet twice daily. Further scripts to be given by PCP/ANTIQUE FURNITURE REPAIRER spironolactone Take 1 tablet by mouth 60 tablet 0 04/18/20182017 (ALDACTONE) 25 mg tablet twice daily. Take with food. warfarin (COUMADIN) 7.5 Take 15mg on 08/22/2018 mg tablet Tuesday, and Tuesday. Take 7.5mg on Tuesday, Tuesday, , Tuesday. warfarin (COUMADIN) 7.5 Take 1 tablet by mouth at 30 tablet 0 201708/22/2018 mg tablet bedtime daily. as of this encounter Plan of Treatment Not on fileas of this encounter Procedures Procedure Name Priority Date/Time Associated Diagnosis Comments GENERAL RAD CHEST Routine 08/08/2018 Diagnosis unknown Results for this EXTERNAL IMAGING 12:00 AM CDT procedure are in the results section. in this encounter Visit Diagnoses Not on filein this encounter
--- OUTSIDE RECORDS SUMMARY | 2018-09-06 04:47 | XMS REPORT | Encounter Summary ---
Author Author [facility] Organization [facility] Address Unknown Phone Unavailable Care Team Providers Care Structural Test Engineer Name Role Phone Dave Lorenzana MD PCP Encounter Details Date Type Department Care Team Description 08/08/2018 Hospital [facility] Hospital Radiology Main Hospital [address] [place] [address] Social History Tobacco Use Types Packs/Day Years [...] daily. Further scripts to be given by PCP/MICROBIOLOGY TEACHER spironolactone Take 1 tablet by mouth 60 [...] Procedure Name Priority Date/Time Associated Diagnosis Comments CT CHEST/ABD/PEL EXTERNAL Routine 08/08/2018 Diagnosis unknown Results for this IMAGING 12:15 AM CDT procedure are in the results section. in this encounter Visit Diagnoses Not on filein this encounter
--- OUTSIDE RECORDS SUMMARY | 2018-09-06 04:47 | XMS REPORT | Encounter Summary ---
Author Author [facility] Organization [facility] Address Unknown Phone Unavailable Care Team Providers Care Self Propelled Hot Mix Roller Operator Name Role Phone Dave Lorenzana MD PCP Encounter Details Date Type Department Care Team Description 08/08/2018 Hospital [facility] [address]nd [address] [place] [address] Social History Tobacco Use Types Packs/Day Years [...] daily. Further scripts to be given by PCP/SUPERVISOR TANK STORAGE spironolactone Take 1 tablet by mouth 60 [...] Procedure Name Priority Date/Time Associated Diagnosis Comments US VENOUS DOPPLER Routine 08/08/2018 Results for this EXTERNAL IMAGING 8:30 PM CDT procedure are in the results section. in this encounter Visit Diagnoses Not on filein this encounter
--- OUTSIDE RECORDS SUMMARY | 2018-09-06 04:47 | XMS REPORT | Encounter Summary ---
Author Author [facility] Organization [facility] Address Unknown Phone Unavailable Care Team Providers Care Astro Technician Name Role Phone Dave Lorenzana MD PCP Encounter Details Date Type Department Care Team Description 08/09/2018 Prep for Case ADMITTING Dani Juárez MD [address] [facility]. [address] [place] [address] [place] [address] [phone] Social History Tobacco Use Types Packs/Day Years [...]
--- OUTSIDE RECORDS SUMMARY | 2018-09-06 04:48 | XMS REPORT ---
Author Author YANI CESAR [facility] Address [address] [place] [address] Care Team Providers Care Sheep Clipper Name Role Phone YANI CESAR Unavailable PROBLEMS ALLERGIES No Information ENCOUNTERS IMMUNIZATIONS No Known Immunizations SOCIAL HISTORY No smoking Hx information available REASON FOR VISIT PLAN OF CARE VITAL SIGNS MEDICATIONS RESULTS No Results PROCEDURES No Known procedures INSTRUCTIONS MEDICATIONS ADMINISTERED No Known Medications MEDICAL (GENERAL) HISTORY
--- OUTSIDE RECORDS SUMMARY | 2018-09-06 04:48 | XMS REPORT ---
Author Author YANI CESAR [facility] Address [address] [place] [address] Care Team Providers Care Instructor Weaving Name Role Phone YANI CESAR Unavailable PROBLEMS ALLERGIES No Information ENCOUNTERS IMMUNIZATIONS No Known Immunizations SOCIAL HISTORY No smoking Hx information available REASON FOR VISIT PLAN OF CARE VITAL SIGNS MEDICATIONS No Known Medications RESULTS No Results PROCEDURES No Known procedures INSTRUCTIONS MEDICATIONS ADMINISTERED No Known Medications MEDICAL (GENERAL) HISTORY
--- OUTSIDE RECORDS SUMMARY | 2018-09-06 04:49 | XMS REPORT ---
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 Active 53080599494925729 Problem Type 2 diabetes mellitus with foot ulcer E11.621 Active 2929614888362 Problem Hyperlipidemia, unspecified hyperlipidemia type E78.5 Active 29070312 Problem PVD (peripheral vascular disease) I73.9 Active 036669729 Problem nursing home current use of insulin Z79.4 Active 299481801 Problem Gastroparesis K31.84 Active 770516232 Problem Type 2 diabetes mellitus with diabetic peripheral angiopathy without gangrene E11.51 Active 926910653 Problem Left ventricular thrombus I51.3 Active 355601791 Problem Iron deficiency anemia due to chronic blood loss D50.0 Active 353574633 Problem Dysfunctional uterine bleeding N93.8 Active 11337721 Problem Chronic systolic congestive heart failure I50.22 Active 583434277 Problem Anticoagulated by anticoagulation treatment Z79.01 Active 372618681 ALLERGIES No Information ENCOUNTERS Encounter Location Date Diagnosis [facility] [id number], [place] [address] Jul, Type 2 diabetes mellitus with diabetic peripheral angiopathy without gangrene E11.51 ; nursing home current use of insulin Z79.4 and PVD (peripheral vascular disease) I73.9 [facility] [address] [id number], [place] [address] Jul, [facility] [address], [place] [address] Jul, [place] [address], [place] [address] 12[address] 20 Jul, 2018 [place] [id number] [place] [address] 13281- 6394 10 Jul, 2018 Iron deficiency anemia due to chronic blood loss D50.0 ; Dysfunctional uterine bleeding N93.8 ; Left ventricular thrombus I51.3 and Chronic systolic congestive heart failure I50.22 [place] [id number] [place] [address] 15981- 7729 May, Other fluid overload E87.79 and Hyperlipidemia, unspecified hyperlipidemia type E78.5 [place] [place] [id number] [place] [address] 28714- 2308 Apr, Other fluid overload E87.79 and Hyperlipidemia, unspecified hyperlipidemia type E78.5 [place] [id number] [place] [address] 75080- 8089 Apr, [place] [id number] [place] [address] 88075- 8751 Apr, [place] [id number] [place] [address] 46194- 1662 14 Apr, 2018 [place] [id number] [place] [address] 45774- 3037 Apr, [place] [id number] [place] [address] 61658- 0336 March, Acute embolism and thrombosis of left femoral vein I82.412 [place] [id number] [place] [address] 16073- 0146 March, PVD (peripheral vascular disease) I73.9 [place] [id number] [place] [address] 24582- 8401 March, Encounter for medication monitoring Z51.81 ; Iron deficiency anemia due to chronic blood loss D50.0 and Anticoagulated by anticoagulation treatment Z79.01 [place] [id number] [place] [address] 34494- 4904 March, Encounter for medication monitoring Z51.81 [facility] [id number] [place] [address] 24432- 6653 March, Iron deficiency anemia due to chronic blood loss D50.0 ; Type 2 diabetes mellitus with foot ulcer E11.621 and Dysfunctional uterine bleeding N93.8 [place] [address] [address]- 1793 Feb, PVD (peripheral vascular disease) I73.9 [place] [address] 16556- 2921 Jan, [place] [address] 0[address]13- 7477 Jan, PVD (peripheral vascular disease) I73.9 [place] [id number] [place] [address] 36546- 1666 Dec, PVD (peripheral vascular disease) I73.9 [place] [id number] [place] [address] 68371- 3496 Dec, Pale complexion R23.1 and Severe anemia D64.9 [place] [id number] [place] [address] 17492- 6235 Nov, PVD (peripheral vascular disease) I73.9 [place] [id number] [place] [address] 05668- 0814 Nov, PVD (peripheral vascular disease) I73.9 [place] [id number] [place] [address] 95422- 6930 07 Oct, 2017 PVD (peripheral vascular disease) I73.9 [place] [id number] [place] [address] 98337- 1141 13 Sep, 2017 PVD (peripheral vascular disease) I73.9 [place] [id number] [place] [address] 56061- 8443 16 Aug, 2017 PVD (peripheral vascular disease) I73.9 [facility] ([facility] [address], [place] [address] 2852 Jul, PVD (peripheral vascular disease) I73.9 [facility] ([facility] [address] [place] [address] 06852- 3587 Jun, Type 2 diabetes mellitus without complications E11.9 ; Hyperlipidemia, unspecified hyperlipidemia type E78.5 and PVD (peripheral vascular disease) I73.9 [place] [id number] [place] [address] 92195- 0495 Jun, [place] [id number] [place] [address] 68373- 4992 Jun, Long-term use of high-risk medication Z79.899 [place] [id number] [place] [address] 11935- 9625 May, [place] [id number] [place] [address] 57035- 6315 May, Osteomyelitis, unspecified M86.9 [place] [id number] [place] [address] 33947- 5558 Apr, Atherosclerosis of [place] arteries of extremities with gangrene, 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 [facility] [id number] [place] [address] 04468- 8620 March, Osteomyelitis, unspecified M86.9 [facility] [id number] [place] [address] 52234- 8608 Feb, Atherosclerosis of [place] arteries of extremities with gangrene, 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 [place] [address] [place] [address] 21622- 9834 Jan, Atherosclerosis of [place] arteries of extremities with gangrene, 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 [place] [address], [place] [address]- 2462 Jan, Type 2 diabetes mellitus without complications E11.9 ; nursing home current use of insulin Z79.4 ; Hyperlipidemia, unspecified hyperlipidemia type E78.5 ; Long-term use of high-risk medication Z79.899 and PVD (peripheral vascular disease) I73.9 [place] [id number] [place] [address] 58412- 0066 Dec, Cellulitis of right lower limb L03.115 [place] [id number] [place] [address] 22092- 2896 Dec, [place] [id number] [place] [address] 58349- 2545 Nov, Atherosclerosis of [place] arteries of extremities with gangrene, 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 [place] [id number] [place] [address] 05075- 0388 Nov, [place] [id number] [place] [address] 42597- 5495 Nov, [place] [id number] [place] [address] 07219- 4085 Oct, Other fluid overload E87.79 and Acute embolism and thrombosis of left femoral vein I82.412 [place] [id number] [place] [address] 70195- 9962 Oct, [place] [id number] [place] [address] 72981- 5340 Oct, [place] [id number] [place] [address] 13890- 254 Oct, PVD (peripheral vascular disease) I73.9 [place] [id number] [place] [address] 58106 2546 Oct, Other fluid overload E87.79 and Acute embolism and thrombosis of left femoral vein I82.412 [place] [id number] [place] [address] 43250- 4079 Oct, [place] [id number] [place] [address] 10932907- 7787 Oct, Atherosclerosis of [place] arteries of extremities with gangrene, 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 [facility] [address], [place] [address]- 4108 Sep, [facility] [id number], [place] [address]- 1479 10 Sep, 2016 [facility] [address] [place] [address] 15905- 4720 08 Sep, 2016 PVD (peripheral vascular disease) I73.9 [facility] [address], [place] [address]- 6585 07 Aug, 2016 Type 2 diabetes mellitus with foot ulcer E11.621 and PVD ( peripheral vascular disease) I73.9 [facility] [address], [place] [address]- 9878 30 Jul, 2016 [facility] [address], [place] [address]- 1183 Jul, [facility] [address], [place] [address]- 1676 Jul, [facility] [address], [place] [address]- 6435 Jul, [facility] [address], [place] [address]- 0177 Jun, [facility] [address], [place] [address]- 3672 Jun, [facility] [id number], [place] [address]- 5827 Jun, [facility] [address], [place] [address]- 2753 May, [facility] [address], [place] [address]- 6312 May, PVD (peripheral vascular disease) I73.9 ; Type 2 diabetes mellitus without complications E11.9 ; nursing home current use of insulin Z79.4 and Hyperlipidemia, unspecified hyperlipidemia type E78.5 [facility] [address] [facility] [id number] [place] [address]- 1189 May, [facility] [address] [facility] [id number], [place] [address]- 2077 May, [facility] [id number] [place] [address]- 6603 May, [facility] [address] [facility] [id number], [place] [address]- 8386 Feb, [facility] [address] [facility] [id number] [place] [address]- 9897 Feb, [facility] [id number], [place] [address]- 8968 Jan, [facility] [address], [place] [address]- 1604 Jan, [facility] [address], [place] [address]- 1986 Dec, [facility] [address], [place] [address]- 2797 Dec, [facility] [address], [place] [address]- 1632 Oct, [facility] [address], [place] [address]- 7617 Oct, [facility] [address] [facility] [id number], [place] [address]- 6857 Sep, [facility] [id number], [place] [address]- 0489 Sep, [facility] [address] [facility] [id number], [place] [address]- 4477 Sep, [facility] [id number], [place] [address]- 6181 Sep, [facility] [place] [facility] [address] [id number] [place] [address]- 2237 Aug, [facility] [place] [facility] [address] [id number] [place] [address]- 7781 Aug, [facility] [place] [facility] [address] [id number] [place] [address]- 4041 Jul, [facility] [place] [facility] [address] [id number] [place] [address]- 8951 Jul, [facility] [place] [facility] [address] [id number] [place] [address]- 7220 Apr, [facility] [place] [facility] [address] [id number] [place] [address]- 1970 Apr, [facility] [place] [facility] [address] [facility] [id number] [place] [address]- 2798 Feb, [facility] [place] [facility] [address] [id number] [place] [address]- 5538 Feb, [facility] [place] [facility] [address] [id number] [place] [address]- 9046 Jan, [facility] [place] [facility] [address] [id number] [place] [address]- 1905 Jan, [facility] [place] [facility] [address] [facility] [id number] [place] [address]- 8026 Dec, [facility] [place] [facility] [address] [id number] [place] [address]- 1994 Dec, [facility] [place] [facility] [address] [id number] [place] 4148 Oct, [facility] [place] [facility] [address] [id number] [place] [address]- 2646 Oct, [facility] [place] [facility] [address] [id number] [place] [address]- 3363 Sep, [facility] [place] [facility] [address] [id number], [place] [address]- 1636 Sep, [facility] [place] [facility] [address] [id number] [place] [address]- 9988 Sep, [facility] [place] [facility] [address] [id number] [place] [address]- 2546 Sep, [facility] [place] [facility] [address] [facility] [id number] [place] [address]- 2546 Sep, [facility] [place] [facility] [address] [id number], [place] [address]- 2546 Sep, [facility] [place] [facility] [address] [id number] [place] [address]- 2546 Aug, [facility] [place] [facility] [address] [id number] [place] [address]- 9026 Jul, [facility] [place] [facility] [address] [id number], [place] [address] 2546 Jun, [facility] [place] [facility] [address] [id number], [place] [address] 2546 May, [facility] [place] [facility] [address] [id number], [place] [address]- 8276 Apr, [facility] [place] [facility] [address] [id number] [place] [address]- 9346 Apr, [facility] [place] [facility] [address] [id number], [place] [address] 2542 Apr, [facility] [place] [facility] [address] [id number], [place] [address]- 2546 March, [facility] [place] [facility] [address] [id number] [place] [address] 2546 Jan, [facility] [place] [facility] [address] [id number], [place] [address] 2546 Jan, [facility] [place] [facility] [address] [id number], [place] [address]- 2546 Jan, [facility] [place] [facility] [address] [id number] [place] [address]- 1756 07 Jan, 2013 [facility] [address] [id number] [place] [address]- 0121 06 Jan, 2013 [facility] [place] [facility] [address] [id number] [place] [address] 2546 19 Dec, 2012 [facility] [address] [id number] [place] [address]- 3746 18 Dec, 2012 [facility] [place] [facility] [address] [id number] [place] [address]- 4575 11 Dec, 2012 [facility] [address] [id number] [place] [address]- 2396 07 Dec, 2012 [facility] [address] [id number] [place] [address]- 0285 05 Dec, 2012 [facility] [address] [id number] [place] [address]- 8024 Nov, [facility] [address] [id number] [place] [address]- 4117 Nov, [facility] [address] [id number] [place] [address]- 8483 Nov, [facility] [address] [id number] [place] [address]- 6265 Nov, [facility] [place] [facility] [address] [id number] [place] [address]- 8158 Nov, [facility] [place] [facility] [address] [id number] [place] [address] 254 Nov, [facility] [place] [facility] [address] [id number] [place] [address] 2543 Nov, [facility] [place] [facility] [address] [id number] [place] [address] 2546 Nov, [facility] [place] [facility] [address] [id number] [place] [address]- 8448 Nov, [facility] [place] [facility] [address] [id number] [place] [address]- 5890 14 Sep, 2012 [facility] [place] [facility] [address] [id number] [place] [address]- 8420 14 Sep, 2012 [facility] [place] [facility] [address] [id number] [place] [address]- 9052 25 Jul, 2012 [facility] [place] [facility] [address] [id number] [place] [address]- 5216 17 Jul, 2012 [facility] [place] [facility] [address] [id number] [place] [address]- 2647 11 Jul, 2012 [facility] [place] [facility] [address] [id number] [place] [address]- 3593 10 Jul, 2012 [facility] [place] [facility] [address] [id number] [place] [address]- 1582 05 Jul, 2012 [facility] [place] [facility] [address] [id number] [place] [address]- 9863 05 Jul, 2012 [facility] [place] [facility] [address] [id number] [place] [address]- 1115 28 Jun, 2012 [facility] [place] [facility] [address] [id number] [place] [address]- 8713 20 Jun, 2012 [facility] [place] [facility] [address] [id number] [place] [address]- 6970 18 Jun, 2012 [facility] [place] [facility] [address] [id number] [place] [address]- 3017 17 Jun, 2012 [facility] [place] [facility] [address] [id number] [place] [address]- 0836 16 Jun, 2012 [facility] [place] [facility] [address] [id number] [place] [address]- 8484 14 Jun, 2012 [facility] [place] [facility] [address] [id number] [place] [address]- 4319 14 Jun, 2012 [facility] [place] [facility] [address] [id number] [place] [address]- 3365 10 Jun, 2012 [facility] [address] [id number] [place] [address]- 1710 30 May, 2012 [facility] [place] [facility] [address] [id number] [place] [address]- 5186 May, [facility] [address] [id number] [place] [address]- 3076 Apr, [facility] [place] [facility] [address] [id number] [place] [address]- 7405 March, [facility] [place] [facility] [address] [id number] [place] [address]- 8129 March, [facility] [place] [facility] [address] [id number] [place] [address]- 4642 March, [facility] [address] [id number] [place] [address]- 8609 March, [facility] [place] [facility] [address] [id number] [place] [address]- 3541 Feb, [facility] [place] [facility] [address] [id number] [place] [address]- 3378 Feb, [facility] [place] [facility] [address] [facility] [id number] [place] [address]- 4150 Feb, [facility] [place] [facility] [address] [id number] [place] [address]- 6306 Jan, [facility] [place] [facility] [address] [id number] [place] [address]- 5035 Dec, [facility] [place] [facility] [address] [id number] [place] [address]- 1658 Dec, [facility] [place] [facility] [address] [id number] [place] [address]- 4006 Dec, [facility] [place] [facility] [address] [id number] [place] [address]- 2746 Dec, [facility] [address] [facility] [id number], [place] [address]- 3829 Dec, [facility] [address] [facility] [id number], [place] [address]- 8616 Nov, [facility] [address] [facility] [id number], [place] [address]- 1886 Oct, [facility] [address] [facility] [id number], [place] [address]- 2460 Sep, [facility] [address] [facility] [id number], [place] [address]- 7650 Sep, [facility] [address] [facility] [id number], [place] [address]- 7094 Aug, [facility] [id number], [place] [address]- 7249 Aug, [facility] [address], [place] [address]- 3499 Nov, [facility] [address] [facility] [id number], [place] [address]- 4458 Aug, [facility] [id number], [place] [address] March, IMMUNIZATIONS No Known Immunizations SOCIAL HISTORY Never Assessed REASON FOR VISIT Hospital Discharge PLAN OF CARE VITAL SIGNS MEDICATIONS Medication Instructions Dosage Frequency Start Date End Date Duration Status Lisinopril 2.5 MG Orally Once a day 1 tablet 24h Active Lancets 1 by Subcutaneous route 3 times per day March, Active Humalog KwikPen 100 UNIT/ML Subcutaneous 3 times a day 12 units before meals 8h Oct, Active Accu-Chek Softclix Lancets - as directed Apr, Active Aspirin 325 MG Orally Once a day 1 tablet 24h Active Atorvastatin Calcium 40 MG Orally Once a day 1 tablet 24h 30 day(s) Active Accu-Chek Sheyla SmartView w/Device as directed Apr, Active Warfarin Sodium 7.5 MG Orally Once a day 2 tablets on Tuesday and . 1 tablet all other days 24h Active Lasix 40 mg Orally Once a day 1 tablet 24h Active Lantus 100 UNIT/ML Subcutaneous at bedtime 45 units Active Test strips test strips Accu-Check Smartview Test Strips Apr, Active Carvedilol 3.125 MG Orally twice a day 1 tablet 12h Active Metformin HCl 500 MG Orally Twice a day 1 tablet with meals 12h Active RESULTS No Results PROCEDURES No Known procedures INSTRUCTIONS MEDICATIONS ADMINISTERED No Known Medications MEDICAL (GENERAL) HISTORY Type Description Date Medical History LEFT below knee amputation Medical History Diabetes, Type II Medical History Hypertension Medical History Hyperlipidemia Medical History removal of blood clots Surgical History Phuong ZUNIGA Blood Clot/Gangrene 06/25/2016 Surgical History 2 csections Surgical History gallstone removal Surgical History Left BKA Surgical History removal of blood clots 07/2018 Hospitalization History Surgery Hospitalization History Bilat Pleural Effusions, Volume Overload 08/07/16 Hospitalization History Fluid in lungs 08/22/16 Hospitalization History Left below knee amputation 10/2016 Hospitalization History DKA, UTI-[facility] 07/2018 Hospitalization History 2 weeks [facility] removal of blood clots 07/2018
--- OUTSIDE RECORDS SUMMARY | 2018-09-06 04:49 | XMS REPORT ---
Author Author YANI CESAR [facility] Address [address] [place] [address] Care Team Providers Care Assembler Tubing Name Role Phone YANI CESAR Unavailable PROBLEMS Type Condition ICD9-CM Code RXB88-GN Code Onset Dates Condition Status SNOMED Code Problem Gastroparesis K31.84 Active 782528734 Problem Type 2 diabetes mellitus with foot ulcer E11.621 Active 7501878648510 Problem Type 2 diabetes mellitus without complications E11.9 Active 198806352 Problem Hyperlipidemia, unspecified hyperlipidemia type E78.5 Active 29540694 Problem PVD (peripheral vascular disease) I73.9 Active 097564286 Problem alf current use of insulin Z79.4 Active 675670733 Problem Chronic systolic congestive heart failure I50.22 Active 355091992 Problem Left ventricular thrombus I51.3 Active 644211895 Problem Dysfunctional uterine bleeding N93.8 Active 04989359 Problem Atherosclerosis of [place] arteries of extremities with gangrene, 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 Active 15086163905476060 Problem Anticoagulated by anticoagulation treatment Z79.01 Active 107596623 Problem Iron deficiency anemia due to chronic blood loss D50.0 Active 733933463 ALLERGIES No Information ENCOUNTERS Encounter Location Date Diagnosis [place] [id number] [address] Jul, [facility] [id number] [place] [address] 11148- 7877 10 Jul, 2018 Iron deficiency anemia due to chronic blood loss D50.0 ; Dysfunctional uterine bleeding N93.8 ; Left ventricular thrombus I51.3 and Chronic systolic congestive heart failure I50.22 [facility] [address], [place] [address] May, Other fluid overload E87.79 and Hyperlipidemia, unspecified hyperlipidemia type E78.5 [place] [id number] [place] [address] 04003- 1577 Apr, Other fluid overload E87.79 and Hyperlipidemia, unspecified hyperlipidemia type E78.5 [place] [address] [place] [id number] [place] [address] 45609- 3721 Apr, [place] [address] [place] [id number] [place] [address] 98371- 2040 18 Apr, 2018 [place] [address] [place] [id number] [place] [address] 56395- 6329 14 Apr, 2018 [place] [address] [place] [id number] [place] [address] 15379- 2335 Apr, [place] [address] [place] [id number] [place] [address] 08984- 5514 March, Acute embolism and thrombosis of left femoral vein I82.412 [place] [address] [place] [id number] [place] [address] 28646- 9764 March, PVD (peripheral vascular disease) I73.9 [place] [address] [place] [id number] [place] [address] 95413- 1356 March, Encounter for medication monitoring Z51.81 ; Iron deficiency anemia due to chronic blood loss D50.0 and Anticoagulated by anticoagulation treatment Z79.01 [place] [id number] [place] [address] 69255- 9807 March, Encounter for medication monitoring Z51.81 [place] [id number] [place] [address] 39792- 9505 March, Iron deficiency anemia due to chronic blood loss D50.0 ; Type 2 diabetes mellitus with foot ulcer E11.621 and Dysfunctional uterine bleeding N93.8 [place] [address] [place] [id number] [place] [address] 45758- 5087 Feb, PVD (peripheral vascular disease) I73.9 [place] [id number] [place] [address] 75795- 1965 Jan, [facility] [address] [id number] [place] [address] 69616- 3829 Jan, PVD (peripheral vascular disease) I73.9 [place] [address] [place] [id number] [place] [address] 61000- 9887 Dec, PVD (peripheral vascular disease) I73.9 [place] [address] [address]294- 7173 Dec, Pale complexion R23.1 and Severe anemia D64.9 [place] [address] [place] [id number] [place] [address] 56725- 0073 Nov, PVD (peripheral vascular disease) I73.9 [place] [address] [place] [id number] [place] [address] 58187- 6909 Nov, PVD (peripheral vascular disease) I73.9 [place] [address] [place] [id number] [place] [address] 96923- 0607 Oct, PVD (peripheral vascular disease) I73.9 [place] [address] [place] [id number] [place] [address] 86026- 4778 Sep, PVD (peripheral vascular disease) I73.9 [place] [address] [place] [id number] [place] [address] 40281- 7670 Aug, PVD (peripheral vascular disease) I73.9 [place] [address] [place] [id number] [place] [address] 69554- 6173 Jul, PVD (peripheral vascular disease) I73.9 [place] [address] [place] [id number] [place] [address] 15534- 5963 Jun, Type 2 diabetes mellitus without complications E11.9 ; Hyperlipidemia, unspecified hyperlipidemia type E78.5 and PVD (peripheral vascular disease) I73.9 [place] [address] [place] [id number] [place] [address] 14762- 8049 Jun, [place] [address] [place] [address]- 1584 Jun, Long-term use of high-risk medication Z79.899 [place] [address] [place] [id number] [place] [address] 28232- 6075 May, [place] [address] [place] [id number] [place] [address] 42264- 9811 May, Osteomyelitis, unspecified M86.9 [place] [address] [place] [id number] [place] [address] 65408- 6376 Apr, Atherosclerosis of [place] arteries of extremities with gangrene, 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 [place] [address] [place] [id number] [place] [address] 17464- 9830 March, Osteomyelitis, unspecified M86.9 [place] [address] [place] [id number] [place] [address] 30810- 1480 Feb, Atherosclerosis of [place] arteries of extremities with gangrene, 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 [place] [address] [place] [id number] [place] [address] 90736- 2309 Jan, Atherosclerosis of [place] arteries of extremities with gangrene, 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 [place] [address] [place] [address] 85956- 5542 Jan, Type 2 diabetes mellitus without complications E11.9 ; alf current use of insulin Z79.4 ; Hyperlipidemia, unspecified hyperlipidemia type E78.5 ; Long-term use of high-risk medication Z79.899 and PVD (peripheral vascular disease) I73.9 [place] [id number] [place] [address] 35882- 6519 Dec, Cellulitis of right lower limb L03.115 [place] [address] [place] [id number] [place] [address] 05942- 3889 Dec, [place] [id number] [place] [address] 87274- 8307 Nov, Atherosclerosis of [place] arteries of extremities with gangrene, 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 [facility] [address], [place] [address]- 4484 Nov, [facility] [id number] [place] [address] 57296- 6086 Nov, [facility] [address], [place] [address]- 8976 Oct, Other fluid overload E87.79 and Acute embolism and thrombosis of left femoral vein I82.412 [facility] [address], [place] [address] 2546 Oct, [facility] [address] [place] [id number] [place] [address] 28057- 5736 Oct, [facility] [id number] [place] [address] 48658- 7051 Oct, PVD (peripheral vascular disease) I73.9 [facility] [address] [place] [address] 93951- 5350 Oct, Other fluid overload E87.79 and Acute embolism and thrombosis of left femoral vein I82.412 [facility] [address], [place] [address]- 2741 Oct, [facility] [address], [place] [address]- 9245 Oct, Atherosclerosis of [place] arteries of extremities with gangrene, 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 [facility] [address], [place] [address]- 1206 10 Sep, 2016 [facility] [address], [place] [address]- 1410 Sep, [facility] [address], [place] [address]- 9259 08 Sep, 2016 PVD (peripheral vascular disease) I73.9 [facility] [id number] [place] [address] 61582- 9424 Aug, Type 2 diabetes mellitus with foot ulcer E11.621 and PVD ( peripheral vascular disease) I73.9 [facility] [address], [place] [address]- 3683 30 Jul, 2016 [facility] [address], [place] [address]- 2639 Jul, [facility] [address], [place] [address]- 0943 Jul, [facility] [address], [place] [address]- 9124 Jul, [facility] [address] [place] [id number] [place] [address] 22413- 8057 Jun, [facility] [address], [place] [address]- 4053 Jun, [facility] [id number] [place] [address] 32663- 2079 Jun, [facility] [address], [place] [address]- 1507 May, [facility] [address], [place] [address]- 2315 May, PVD (peripheral vascular disease) I73.9 ; Type 2 diabetes mellitus without complications E11.9 ; 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 and Hyperlipidemia, unspecified hyperlipidemia type E78.5 [facility] [address], [place] [address]- 9864 May, [facility] [address], [place] [address]- 1700 May, [facility] [address], [place] [address]- 2343 May, [facility] [address], [place] [address]- 9861 Feb, [facility] [address], [place] [address]- 6107 Feb, [facility] [place] [facility] [address] [id number] [place] [address]- 2907 Jan, [facility] [place] [facility] [address] [id number] [place] [address]- 3999 Jan, [facility] [place] [facility] [address] [facility] [id number] [place] [address]- 3077 Dec, [facility] [place] [facility] [address] [id number] [place] [address]- 8607 Dec, [facility] [place] [facility] [address] [id number] [place] [address]- 7933 Oct, [facility] [place] [facility] [address] [facility] [id number] [place] [address]- 8493 Oct, [facility] [place] [facility] [address] [facility] [id number] [place] [address]- 3291 Sep, [facility] [place] [facility] [address] [facility] [id number] [place] [address]- 3858 Sep, [facility] [place] [facility] [address] [facility] [id number] [place] [address]- 7752 Sep, [facility] [place] [facility] [address] [facility] [id number] [place] [address]- 2026 Sep, [facility] [place] [facility] [address] [facility] [id number] [place] [address]- 2752 Aug, [facility] [place] [facility] [address] [facility] [id number] [address]- 6772 Aug, [facility] [place] [facility] [address] [id number] [place] [address]- 5656 Jul, [facility] [place] [facility] [address] [facility] [id number] [place] [address]- 9873 Jul, [facility] [place] [facility] [address] [facility] [id number] [address]- 2324 Apr, [facility] [place] [facility] [address] [id number] [place] [address]- 6633 Apr, [facility] [place] [facility] [address] [id number] [place] [address]- 1406 Feb, [facility] [place] [facility] [address] [id number] [place]336 Feb, [facility] [place] [facility] [address] [id number] [place] [address]- 9368 Jan, [facility] [place] [facility] [address] [id number] [place] [address]- 3443 Jan, [facility] [place] [facility] [address] [id number] [place] [address]- 1733 Dec, [facility] [place] [facility] [address] [id number] [place] [address]- 3111 Dec, [facility] [place] [facility] [address] [id number] [place] [address]- 8409 Oct, [facility] [place] [facility] [address] [id number] [place] [address]- 4691 Oct, [facility] [place] [facility] [address] [id number] [place] [address]- 7141 Sep, [facility] [place] [facility] [address] [id number] [place] [address]- 6762 Sep, [facility] [place] [facility] [address] [id number] [place] [address]- 8471 Sep, [facility] [place] [facility] [address] [id number] [place] [address]- 6994 Sep, [facility] [place] [facility] [address] [id number] [place] [address]- 7999 Sep, [facility] [place] [facility] [address] [id number] [place] [address]- 0381 Sep, [facility] [place] [facility] [address] [id number] [place] [address]- 2546 Aug, [facility] [place] [facility] [address] [id number] [place] [address]- 2752 Jul, [facility] [place] [facility] [address] [id number] [place] [address]- 6116 Jun, [facility] [place] [facility] [address] [id number] [place] [address] 2546 May, [facility] [place] [facility] [address] [id number] [place] [address]- 3327 Apr, [facility] [place] [facility] [address] [id number] [place] [address]- 0849 Apr, [facility] [place] [facility] [address] [id number] [place] [address]- 1202 Apr, [facility] [place] [facility] [address] [facility] [id number] [place] [address]- 2816 March, [facility] [place] [facility] [address] [id number] [place] [address]- 6664 Jan, [facility] [place] [facility] [address] [id number] [place] [address]- 7279 Jan, [facility] [place] [facility] [address] [facility] [id number] [place] [address]- 8638 Jan, [facility] [place] [facility] [address] [id number] [place] [address]- 8777 Jan, [facility] [place] [facility] [address] [id number] [place] [address] 2545 Jan, [facility] [place] [facility] [address] [id number] [place] [address]- 7630 Dec, [facility] [place] [facility] [address] [id number] [place] [address]- 6026 18 Dec, 2012 [facility] [place] [facility] [address] [facility] [id number] [place] [address]- 2546 Dec, [facility] [place] [facility] [address] [id number] [place] [address]- 1823 07 Dec, 2012 [facility] [address] [id number] [place] [address]- 2529 Dec, [facility] [place] [facility] [address] [id number] [place] [address]- 2152 Nov, [facility] [place] [facility] [address] [id number] [place] [address]- 8077 Nov, [facility] [place] [facility] [address] [id number] [place] [address]- 3119 Nov, [facility] [place] [facility] [address] [id number] [place] [address]- 0601 Nov, [facility] [place] [facility] [address] [id number] [place] [address]- 4490 Nov, [facility] [address] [id number] [place] [address]- 8638 Nov, [facility] [address] [id number] [place] [address]- 6540 Nov, [facility] [place] [facility] [address] [id number] [place] [address]- 7235 Nov, [facility] [address] [id number] [place] [address]- 3082 Nov, [facility] [address] [id number] [place] [address]- 7346 Sep, [facility] [place] [facility] [address] [id number] [place] [address]- 4690 Sep, [facility] [place] [facility] [address] [id number] [place] [address] 2546 25 Jul, 2012 [facility] [place] [facility] [address] [id number] [place] [address]- 2546 17 Jul, 2012 [facility] [place] [facility] [address] [id number] [place] [address]- 8096 11 Jul, 2012 [facility] [place] [facility] [address] [id number] [place] [address]- 9990 10 Jul, 2012 [facility] [place] [facility] [address] [id number] [place] [address]- 6266 05 Jul, 2012 [facility] [place] [facility] [address] [id number] [place] [address]- 1783 05 Jul, 2012 [facility] [place] [facility] [address] [id number] [place] [address]- 1051 28 Jun, 2012 [facility] [place] [facility] [address] [id number] [place] [address]- 5813 20 Jun, 2012 [facility] [place] [facility] [address] [id number] [place] [address]- 1306 18 Jun, 2012 [facility] [place] [facility] [address] [id number] [place] [address]- 8009 17 Jun, 2012 [facility] [place] [facility] [address] [id number] [place] [address]- 4653 16 Jun, 2012 [facility] [place] [facility] [address] [id number] [place] [address]- 5204 Jun, [facility] [place] [facility] [address] [id number] [place] [address]- 3693 14 Jun, 2012 [facility] [place] [facility] [address] [id number] [place] [address]- 5049 Jun, [facility] [place] [facility] [address] [id number] [place] [address]- 6469 30 May, 2012 [facility] [place] [facility] [address] [id number] [place] [address]- 1683 May, [facility] [place] [facility] [address] [id number] [place] [address]- 4442 Apr, [facility] [place] [facility] [address] [id number] [place] [address]- 8194 March, [facility] [place] [facility] [address] [id number] [place] [address]- 4668 March, [facility] [address] [id number] [place] [address]- 6011 March, [facility] [place] [facility] [address] [id number] [place] [address]- 3936 March, [facility] [address] [id number] [place] [address]- 0891 Feb, [facility] [place] [facility] [address] [id number] [place] [address]- 5714 Feb, [facility] [address] [id number] [place] [address]- 0325 Feb, [facility] [place] [facility] [address] [id number] [place] [address]- 7666 Jan, [facility] [address] [id number] [place] [address]- 5127 Dec, [facility] [address] [id number] [place] [address]- 6506 Dec, [facility] [address] [id number] [place] [address]- 7430 Dec, [facility] [address] [facility] [id number] [place] [address]- 6339 Dec, [facility] [address] [id number] [place] [address]- 8146 Dec, [facility] [address] [id number] [place] [address]- 8708 Nov, [facility] [place] [facility] [address] [id number] [place] [address]- 2446 Oct, [facility] [place] [facility] [address] [id number] [place] [address]- 2546 Sep, [facility] [place] [facility] [address] [id number] [place] [address]- 8559 Sep, [facility] [address] [facility] [id number] [address]- 2546 Aug, [facility] [address] [facility] [id number], [place] [address]- 2546 Aug, [facility] [address] [facility] [id number], [place] [address]- 2546 Nov, [facility] [address] [facility] [id number], [place] [address]- 2546 Aug, [facility] [address] [facility] [id number], [place] [address]- 0006 March, IMMUNIZATIONS No Known Immunizations SOCIAL HISTORY Never Assessed REASON FOR VISIT Medication refill request PLAN OF CARE VITAL SIGNS MEDICATIONS Medication Instructions Dosage Frequency Start Date End Date Duration Status Spironolactone 25 MG Orally 2 times a day 1 tablet 12h Active Lovastatin 40 mg Orally Once a day 2 tablet with a meal 24h Jun, Active Lasix 40 mg Orally Once a day 1 tablet 24h Active Warfarin Sodium 7.5 MG Orally Once a day 2 tablets on Tuesday and . 1 tablet all other days 24h Active Carvedilol 3.125 MG Orally Once a [...]
--- NOTE | 2018-09-06 04:52 | ED GI ---
General Stated Complaint: HYPERGLYCEMIA Source of Information: Patient, EMS Exam Limitations: Other (clinical condition) (ALEYDA URIBE) History of Present Illness Date Seen by Provider: Sep 06, 2018 Time Seen by Provider: 04:26 Initial Comments Patient presents to ER by EMS with chief complaint that family found her passed out on the toilet and unresponsive. When EMS arrived blood glucose was too high to read on their glucometer. Patient has lots of insulin in her refrigerator but denies that she's been taking it. She says she's not hurting anywhere having any nausea or chills or recent colds or sickness. She denies any drug use but says she does smoke about half a pack per day. Denies alcohol use. (ALEYDA URIBE) Allergies and Home Medications Allergies Coded Allergies: Penicillins (Verified Allergy, Unknown, 12/08/07) Home Medications Aspirin 325 Mg Tablet, 325 MG PO DAILY, (Reported) Atorvastatin Calcium 40 Mg Tablet, 40 MG PO DAILY Prescribed by: JERILYN RAMESH on 08/07/18 1226 Carvedilol 3.125 Mg Tablet, 3.125 MG PO BID Prescribed by: JERILYN RAMESH on 08/07/18 1225 Furosemide 40 Mg Tablet, 40 MG PO DAILY Prescribed by: JERILYN RAMESH on 08/07/18 1225 Insulin Detemir 100 Unit/1 Ml Insuln.pen, 45 UNIT SQ HS, (Reported) Insulin Lispro 100 Unit/1 Ml Insuln.pen, 12 UNIT SQ AC, (Reported) Lisinopril 2.5 Mg Tablet, 2.5 MG PO DAILY Prescribed by: JERILYN RAMESH on 08/07/18 1225 Metformin HCl 500 Mg Tablet, 500 MG PO BID Prescribed by: JERILYN RAMESH on 08/07/18 1225 Warfarin Sodium 7.5 Mg Tablet, 0 PO UD Take 2 tabs (15 mg) daily 3x per week (//) and 1 tab daily 4x per week ( Tue/Tue/Tue/) Prescribed by: JERILYN RAMESH on 08/07/18 1225 Patient Home Medication List Home Medication List Reviewed: Yes (ALEYDA URIBE) Review of Systems Review of Systems Constitutional: No chills, No diaphoresis EENTM: No Blurred Vision, No Double Vision Respiratory: Denies Cough, Denies Shortness of Air Cardiovascular: Denies Chest Pain, Denies Edema Gastrointestinal: Denies Abdomen Distended, Denies Abdominal Pain, Denies Diarrhea, Denies Nausea, Denies Poor Appetite Genitourinary: Denies Burning, Denies Discharge Musculoskeletal: No back pain, No joint pain (ALEYDA URIBE) Past Kqcojqa-Pjtobz-Yvkvjc Hx Patient Social History Alcohol Use: Denies Use Recreational Drug Use: No Smoking Status: Current Everyday Smoker Type Used: Cigarettes Former Smoker, Quit: Aug 07, 2016 2nd Hand Smoke Exposure: Yes Recent Foreign Travel: No Contact w/Someone Who Travel: No Recent Hopitalizations: Yes ([id number]) (ALEYDA URIBE) Immunizations Up To Date Tetanus Booster (TDap): Less than 5yrs PED Vaccines UTD: No Date of Pneumonia Vaccine: Jun 12, 2008 Date of Influenza Vaccine: Sep 17, 2014 (ALEYDA URIBE) Seasonal Allergies Seasonal Allergies: No (ALEYDA URIBE) Past Medical History Surgeries: Yes Section, Gallbladder, Vascular Surgery Respiratory: Yes COPD 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, Peripheral Vascular Neurological: Yes Neuropathy 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 Disorders: No 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 Disorders: Denies DEBURRER History: Menopausal Sexually Transmitted Disease: No HIV/AIDS: No Genitourinary: Yes Bladder Infection, Kidney Stones Gastrointestinal: No Musculoskeletal: Yes Amputee, Arthritis Endocrine: Yes (NON-COMPLIANCE) Diabetes, Insulin dep HEENT: No Cancer: No Psychosocial: Yes Depression Integumentary: No Blood Disorders: Yes (iron deficiency anemia) Adverse Reaction/Blood Tranf: No (ALEYDA URIBE) Family Medical History Diabetes mellitus 19 FATHER 19 MOTHER G8 BROTHER G8 SISTER Myocardial infarction 19 MOTHER Heart Disease, Diabetes (ALEYDA URIBE) Physical Exam Vital Signs Vital Signs - First Documented 09/06/18 04:26 Temp 98.9 Pulse 92 Resp 20 B/P (MAP) 132/68 (89) (RUFUS COOPER MD) Vital Signs Capillary Refill : (ALEYDA URIBE) Height/Weight/BMI Height: 5'11.00" Weight: 145lbs. 2.0oz. 65.164693zg; 19.9 BMI Method:Stated General Appearance: WD/WN, no apparent distress HEENT: PERRL/EOMI, normal ENT inspection, TMs normal, pharynx normal Neck: non-tender, full range of motion, supple Respiratory: chest non-tender, lungs clear, normal breath sounds, no respiratory distress, no accessory muscle use Cardiovascular: normal peripheral pulses, regular rate, rhythm, no edema Peripheral Pulses: 2+ Dorsalis Pedis (R), 2+ Radial Pulses (R), 2+ Radial Pulses (L) Gastrointestinal: normal bowel sounds, non tender, soft Neurologic/Psychiatric: alert, normal mood/affect, oriented x 3 Skin: normal color, warm/dry (ALEYDA URIBE) Focused Exam Lactate Level 09/06/18 04:48: Lactic Acid Level 2.86*H 09/06/18 08:04: Lactic Acid Level 2.56*H (RUFUS COOPER MD) Lactic Acid Level Laboratory Tests Test 09/06/18 04:48 09/06/18 08:04 Lactic Acid Level 2.86 MMOL/L (0.50-2.00) *H 2.56 MMOL/L (0.50-2.00) *H (RUFUS COOPER MD) Progress/Results/Core Measures Results/Orders Lab Results Laboratory Tests Test 09/06/18 04:48 09/06/18 06:31 09/06/18 06:40 09/06/18 08:00 Range/Units White Blood Count 7.8 4.3-11.0 10^3/uL Red Blood Count 3.66 L 4.35-5.85 10^6/uL Hemoglobin 9.6 L 11.5-16.0 G/DL Hematocrit 30 L 35-52 % Mean Corpuscular Volume 82 80-99 FL Mean Corpuscular Hemoglobin 26 25-34 PG Mean Corpuscular Hemoglobin Concent 32 32-36 G/DL Red Cell Distribution Width 17.6 H 10.0-14.5 % Platelet Count 691 H 130-400 10^3/uL Mean Platelet Volume 9.2 7.4-10.4 FL Neutrophils (%) (Auto) 71 42-75 % Lymphocytes (%) (Auto) 18 12-44 % Monocytes (%) (Auto) 8 0-12 % Eosinophils (%) (Auto) 2 0-10 % Basophils (%) (Auto) 1 0-10 % Neutrophils # (Auto) 5.5 1.8-7.8 X 10^3 Lymphocytes # (Auto) 1.4 1.0-4.0 X 10^3 Monocytes # (Auto) 0.6 0.0-1.0 X 10^3 Eosinophils # (Auto) 0.2 0.0-0.3 10^3/uL Basophils # (Auto) 0.1 0.0-0.1 10^3/uL Prothrombin Time 13.5 12.2-14.7 SEC INR Comment 1.0 0.8-1.4 Activated Partial Thromboplast Time 25 24-35 SEC Sodium Level 131 L 135-145 MMOL/L Potassium Level 4.1 3.6-5.0 MMOL/L Chloride Level 98 98-107 MMOL/L Carbon Dioxide Level 23 21-32 MMOL/L Anion Gap 10 5-14 MMOL/L Blood Urea Nitrogen 17 7-18 MG/DL Creatinine 1.13 0.60-1.30 MG/DL Estimat Glomerular Filtration Rate 51 BUN/Creatinine Ratio 15 Glucose Level 701 *H 70-105 MG/DL Lactic Acid Level 2.86 *H 0.50-2.00 MMOL/L Calcium Level 9.3 8.5-10.1 MG/DL Corrected Calcium 9.7 8.5-10.1 MG/DL Magnesium Level 1.9 1.8-2.4 MG/DL Total Bilirubin 0.3 0.1-1.0 MG/DL Aspartate Amino Transf (AST/SGOT) 10 5-34 U/L Alanine Aminotransferase (ALT/SGPT) 12 0-55 U/L Alkaline Phosphatase 99 40-136 U/L Total Protein 6.8 6.4-8.2 GM/DL Albumin 3.5 3.2-4.5 GM/DL Serum Alcohol < 10 <10 MG/DL Smear Scan YES Glucometer 465 *H 301 H 70-110 MG/DL Urine Color YELLOW Urine Clarity CLEAR Urine pH 6 5-9 Urine Specific [place] 1.005 L 1.016-1.022 Urine Protein 2+ H NEGATIVE Urine Glucose (UA) 4+ H NEGATIVE Urine Ketones NEGATIVE NEGATIVE Urine Nitrite NEGATIVE NEGATIVE Urine Bilirubin NEGATIVE NEGATIVE Urine Urobilinogen NORMAL NORMAL MG/DL Urine Leukocyte Esterase NEGATIVE NEGATIVE Urine RBC (Auto) NEGATIVE NEGATIVE Urine RBC 0-2 /HPF Urine WBC RARE /HPF Urine Squamous Epithelial Cells RARE /HPF Urine Crystals NONE /LPF Urine Bacteria FEW H /HPF Urine Casts NONE /LPF Urine Mucus NEGATIVE /LPF Urine Culture Indicated NO Urine Opiates Screen NEGATIVE NEGATIVE Urine Oxycodone Screen NEGATIVE NEGATIVE Urine Methadone Screen NEGATIVE NEGATIVE Urine Propoxyphene Screen NEGATIVE NEGATIVE Urine Barbiturates Screen NEGATIVE NEGATIVE Ur Tricyclic Antidepressants Screen NEGATIVE NEGATIVE Urine Phencyclidine Screen NEGATIVE NEGATIVE Urine Amphetamines Screen NEGATIVE NEGATIVE Urine Methamphetamines Screen POSITIVE H NEGATIVE Urine Benzodiazepines Screen POSITIVE H NEGATIVE Urine Cocaine Screen NEGATIVE NEGATIVE Urine Cannabinoids Screen NEGATIVE NEGATIVE Test 09/06/18 08:04 Range/Units Lactic Acid Level 2.56 *H 0.50-2.00 MMOL/L (RUFUS COOPER MD) My Orders Orders - RUFUS COOPER MD Ct Angio Head/Neck (09/06/18 06:40) Iohexol Injection (Omnipaque 350 Mg/Ml 1 (09/06/18 07:15) Ns (Ivpb) (Sodium Chloride 0.9%) (09/06/18 07:15) Contrast Received (Contrast Received) (09/06/18 07:15) Accucheck Stat ONCE (09/06/18 07:54) Accucheck Stat ONCE (09/06/18 07:54) Apixaban Tablet (Eliquis Tablet) (09/06/18 09:30) (RUFUS COOPER MD) Medications Given in ED Current Medications Medications Dose Ordered Sig/Vaughn Route Start Time Stop Time Status Last Admin Dose Admin Cefepime HCl 1000 mg/Sodium Chloride 50 ml @ 100 mls/hr ONCE ONCE IV 09/06/18 04:45 09/06/18 05:14 DC 09/06/18 06:02 100 MLS/HR Insulin Human Regular 10 unit ONCE ONCE IV 09/06/18 06:00 09/06/18 06:01 DC 09/06/18 06:02 10 UNIT Iohexol 80 ml ONCE ONCE IV 09/06/18 07:15 09/06/18 07:16 DC 09/06/18 07:24 80 ML Sodium Chloride 250 ml ONCE ONCE IV 09/06/18 07:15 09/06/18 07:16 DC 09/06/18 07:24 80 ML (RUFUS COOPER MD) Vital Signs/I&O 09/06/18 04:26 Temp 98.9 Pulse 92 Resp 20 B/P (MAP) 132/68 (89) (RUFUS COOPER MD) Progress Progress Note : Time: 04:52 Progress Note CBG for EMS was read as high sore and a repeat Accu-Chek were discontinued at the lab and start putting fluids into her and start treating her as though she is HHS or DKA. She denying pain or nausea. We'll get a septic workup for sources of possible infection but it seems like she is just not taking her insulin as she says. (ALEYDA URIBE) Progress Note #1: Time: 07:16 Progress Note Care of this patient was assumed from Dr. Uribe at shift change. She has received 2 L of IV fluid as well as 10 units of insulin. Blood sugar is trending down. Patient has had 2 short seizures while in the emergency room. She received a bolus dose of Keppra. Reportedly she has had no prior seizure history. Review of her chart indicates she was transferred to [facility] after being seen in the emergency room last month. She was treated for lower extremity thrombus and had a surgical thrombectomy performed. Patient can provide no details on her care at [facility]. She does have evidence of surgical scar in the groin. I did contact her next of kin who is her ex-. He confirmed that there was thrombectomy performed but could not give me many details. He stated patient has followed up with Dr. Cesar since returning home and they are working on method of anticoagulation. Patient denies any prior history of seizure. For this reason CT angiogram of the head and neck has been ordered. Dr. Uribe reports there were no focal deficits on his initial assessment aside from some confusion. Progress Note #2: Time: 09:[address] angiogram of the head and neck showed no acute stroke or bleed. Records from [facility] were reviewed. Patient did have thrombectomy of both lower extremities. She also had other thrombi including of the spleen and renal artery. I discussed the case with Dr. Ramesh. She requested that we start Eliquis 5 mg by mouth now. Patient was prescribed Eliquis by [facility] but does not appear to be taking it. (RUFUS COOPER MD) Initial ECG Impression Date: Sep 06, 2018 Initial ECG Impression Time: 09:40 Initial ECG Rate: 97 Initial ECG Rhythm: Normal Sinus Comment Sinus rhythm with no acute ST elevation or depression. Compared with prior and similar. Possible IVCD or atypical bundle branch block with prolonged QRS. (RUFUS COOPER MD) Diagnostic Imaging Diagonstic Imaging: Xray Plain Films/CT/US/NM/MRI: chest (1v) Reviewed: Reviewed by Me (ALEYDA URIBE) Comments Chest x-ray viewed by me. Report not yet available. No acute abnormalities appreciated. Diagonstic Imaging: CT Plain Films/CT/US/NM/MRI: other (CT angiogram head and neck) Comments CT angiogram head and neck viewed by me and report reviewed. See report below: NAME: ANNI OLIVARES [facility] REC#: [id number] PT STATUS: REG ER : 1970 PHYSICIAN: RUFUS COOPER MD ADMIT DATE: 09/06/18/ER Draft Date of Exam:09/06/18 CT ANGIO HEAD/NECK PROCEDURE: CT angiography of the head and CT angiography of the neck with and without contrast. TECHNIQUE: Contiguous noncontrast images were obtained from the skull base through the vertex. After intravenous contrast administration, helical CT angiography of the neck was performed. Source data was reformatted into multiple 2D MIP projections. Delayed post contrast acquisition was also obtained. INDICATION: Seizure. COMPARISON: None. FINDINGS: Noncontrast head CT demonstrates no intracranial hemorrhage, mass effect, hydrocephalus or extra-axial fluid collection. No CT evidence for territorial infarction. The paranasal sinuses and mastoids are clear. Osseous structures are intact. No abnormal intracranial enhancement. CTA demonstrates conventional aortic arch. The basilar, bilateral vertebral, carotid, anterior cerebral, middle cerebral and posterior cerebral arteries are widely patent without evidence of aneurysm or dissection. Patent anterior and right posterior communicating arteries. The left posterior communicating artery is diminutive or absent. Diminutive or absent right PICA. The superior, anterior inferior and left posterior inferior cerebellar arteries are patent. The dural venous sinuses are grossly patent on this nondedicated exam. Moderate spondylotic changes in the cervical spine. No acute osseous findings. Posterior disc osteophyte complex at C6-C7 appears to result in at least moderate spinal canal narrowing. Moderate emphysematous changes in the lung apices. IMPRESSION: 1. No acute intracranial CT findings. No abnormal intracranial enhancement. 2. No high-grade narrowing, aneurysm or dissection involving the major arteries in the head and neck. 3. Posterior disc osteophyte complex at C6-C7 appears to result in at least moderate spinal canal narrowing. This could be better evaluated with MRI or CT myelogram if clinically warranted. Dictated on workstation # [id number] Dict: 09/06/18819 Trans: 09/06/18836 [facility] [id number] Interpreted by: BABATUNDE NGO MD (RUFUS COOPER MD) Departure Communication (Admissions) Time/Spoke to Admitting Phy: 09:00 Dr. Ramesh (RUFUS COOPER MD) Impression Primary Impression: New onset seizure Additional Impressions: Uncontrolled diabetes mellitus with hyperglycemia Qualified Codes: E11.65 - Type 2 diabetes mellitus with hyperglycemia Positive urine drug screen Disposition: ADMITTED INPATIENT Condition: Improved Admissions Decision to Admit Reason: Admit from ER (General) Decision to Admit/Date: Sep 06, 2018 Time/Decision to Admit Time: 06:00 (RUFUS COOPER MD) Departure-Patient Inst. Referrals: YANI CESAR MD (PCP/Family) Primary Care Physician ALEYDA URIBE Sep 06, 2018 04:52 RUFUS COOPER MD Sep 06, 2018 07:22
[2018-09-06] MEDS ORDERED: MIDAZOLAM 5 MG/5 ML (VERSED) VIAL ONE (04:56)
[2018-09-06] MEDS ORDERED: MIDAZOLAM 5 MG/5 ML (VERSED) VIAL IVP ONE (05:00)
[2018-09-06 05:01] LABS: BASOPHILS # (AUTO) 0.1 10^3/uL (0.0-0.1); BASOPHILS % (AUTO) 1 % (0-10); EOSINOPHILS # (AUTO) 0.2 10^3/uL (0.0-0.3); EOSINOPHILS % (AUTO) 2 % (0-10); HEMATOCRIT 30 % (35-52); HEMOGLOBIN 9.6 G/DL (11.5-16.0); LYMPHOCYTES # (AUTO) 1.4 X 10^3 (1.0-4.0); LYMPHOCYTES % (AUTO) 18 % (12-44); MEAN CORPUSCULAR HEMOGLOBIN 26 PG (25-34); MEAN CORPUSCULAR HGB CONC 32 G/DL (32-36); MEAN CORPUSCULAR VOLUME 82 FL (80-99); MEAN PLATELET VOLUME 9.2 FL (7.4-10.4); MONOCYTES # (AUTO) 0.6 X 10^3 (0.0-1.0); MONOCYTES % (AUTO) 8 % (0-12); NEUTROPHILS # (AUTO) 5.5 X 10^3 (1.8-7.8); NEUTROPHILS % (AUTO) 71 % (42-75); PLATELET COUNT 691 10^3/uL (130-400); RED BLOOD COUNT 3.66 10^6/uL (4.35-5.85); RED CELL DISTRIBUTION WIDTH 17.6 % (10.0-14.5); WHITE BLOOD COUNT 7.8 10^3/uL (4.3-11.0)
[2018-09-06 05:10] LABS: SMEAR SCAN COMMENT YES
[2018-09-06 05:14] LABS: PROTHROMBIN TIME PATIENT 13.5 SEC (12.2-14.7)
[2018-09-06] MEDS: NS IV 1000 ML 1,000 ML IV SCH ×6 (05:15→19:15)
[2018-09-06 05:21] LABS: ALANINE AMINOTRANSFERASE 12 U/L (0-55); ALBUMIN 3.5 GM/DL (3.2-4.5); ALKALINE PHOSPHATASE 99 U/L (40-136); BILIRUBIN,TOTAL 0.3 MG/DL (0.1-1.0); BUN/CREATININE RATIO 15; CALCIUM 9.3 MG/DL (8.5-10.1); CARBON DIOXIDE 23 MMOL/L (21-32); CHLORIDE 98 MMOL/L (98-107); CREATININE SERUM 1.13 MG/DL (0.60-1.30); GFR ESTIMATED 51; MAGNESIUM 1.9 MG/DL (1.8-2.4); POTASSIUM 4.1 MMOL/L (3.6-5.0); SODIUM 131 MMOL/L (135-145); TOTAL PROTEIN 6.8 GM/DL (6.4-8.2)
[2018-09-06 05:24] LABS: GLUCOSE 701 MG/DL (70-105)
[2018-09-06] MEDS ORDERED: inSUlin (REGULAR) HUMAN 1 UNIT/0.01 ML (CHARGE PER UNIT) ONE (05:54)
[2018-09-06] MEDS ORDERED: inSUlin (REGULAR) HUMAN 1 UNIT/0.01 ML (CHARGE PER UNIT) IV ONE (06:00)
[2018-09-06] MEDS ORDERED: LEVETIRACETAM INJECTION 500 MG in NS (IVPB) 100 ML IV STA (06:11)
[2018-09-06] MEDS ORDERED: NS IV 1000 ML 1,000 ML IV STA (06:13)
[2018-09-06 06:52] LABS: BILIRUBIN,URINE NEGATIVE (NEGATIVE); CLARITY,URINE CLEAR; COLOR,URINE YELLOW; GLUCOSE, URINE (UA) 4+ (NEGATIVE); KETONES,URINE NEGATIVE (NEGATIVE); LEUKOCYTE ESTERASE ,URINE NEGATIVE (NEGATIVE); NITRITE,URINE NEGATIVE (NEGATIVE); PH,URINE 6 (5-9); PROTEIN,URINE 2+ (NEGATIVE); UROBILINOGEN,URINE NORMAL (NORMAL)
[2018-09-06 07:02] LABS: AMPHETAMINE SCREEN, URINE NEGATIVE (NEGATIVE); BACTERIA,URINE FEW /HPF; BARBITURATE SCREEN URINE NEGATIVE (NEGATIVE); BENZODIAZEPINES SCREEN URINE POSITIVE (NEGATIVE); CANNABINOID SCREEN, URINE NEGATIVE (NEGATIVE); COCAINE SCREEN URINE NEGATIVE (NEGATIVE); METHAMPHETAMINE SCREEN URINE S POSITIVE (NEGATIVE); OPIATE SCREEN URINE NEGATIVE (NEGATIVE); RBC,URINE 0-2 /HPF; SQUAMOUS EPITHELIAL CELL,UR RARE /HPF; WBC,URINE RARE /HPF
[2018-09-06 07:03] LABS: METHADONE STAT NEGATIVE (NEGATIVE); OXYCODONE STAT NEGATIVE (NEGATIVE); PROPOXYPHENE STAT NEGATIVE (NEGATIVE); TRICYCLIC ANTIDEPRESSANTS SCRE NEGATIVE (NEGATIVE)
[2018-09-06] MEDS ORDERED: NS 250 ML (IVPB) BAG IV ONE (07:15)
[2018-09-06] MEDS ORDERED: IOHEXOL 350 MG/ML 100 ML (OMNIPAQUE 350) VIAL IV ONE (07:15)
[2018-09-06] MEDS ORDERED: RECEIVED CONTRAST (Hold Metformin) IV SCH (07:15)
--- NOTE | 2018-09-06 08:09 | Diagnostic Imaging Report ---
INDICATION: Chest pain. Comparison with 08/08/2018. FINDINGS: The lungs are well-aerated and clear. Heart is not enlarged. There is no pulmonary edema. No hilar adenopathy. No pneumothorax or pleural effusion. IMPRESSION: Normal portable chest. Dictated by: Dictated on workstation # [id number]
--- NOTE | 2018-09-06 08:37 | Diagnostic Imaging Report ---
PROCEDURE: CT angiography of the head and CT angiography of the neck with and without contrast. TECHNIQUE: Contiguous noncontrast images were obtained from the skull base through the vertex. After intravenous contrast administration, helical CT angiography of the neck was performed. Source data was reformatted into multiple 2D MIP projections. Delayed post contrast acquisition was also obtained. INDICATION: Seizure. COMPARISON: None. FINDINGS: Noncontrast head CT demonstrates no intracranial hemorrhage, mass effect, hydrocephalus or extra-axial fluid collection. No CT evidence for territorial infarction. The paranasal sinuses and mastoids are clear. Osseous structures are intact. No abnormal intracranial enhancement. CTA demonstrates conventional aortic arch. The basilar, bilateral vertebral, carotid, anterior cerebral, middle cerebral and posterior cerebral arteries are widely patent without evidence of aneurysm or dissection. Patent anterior and right posterior communicating arteries. The left posterior communicating artery is diminutive or absent. Diminutive or absent right PICA. The superior, anterior inferior and left posterior inferior cerebellar arteries are patent. The dural venous sinuses are grossly patent on this nondedicated exam. Moderate spondylotic changes in the cervical spine. No acute osseous findings. Posterior disc osteophyte complex at C6-C7 appears to result in at least moderate spinal canal narrowing. Moderate emphysematous changes in the lung apices. IMPRESSION: 1. No acute intracranial CT findings. No abnormal intracranial enhancement. 2. No high-grade narrowing, aneurysm or dissection involving the major arteries in the head and neck. 3. Posterior disc osteophyte complex at C6-C7 appears to result in at least moderate spinal canal narrowing. This could be better evaluated with MRI or CT myelogram if clinically warranted. Dictated by: Dictated on workstation # [id number]
[2018-09-06] MEDS ORDERED: APIXABAN 5 MG (ELIQUIS) TABLET PO ONE (09:30)
[2018-09-06] MEDS ORDERED: CATHETER FLUSH 10 ML SYR IV PRN (11:00)
[2018-09-06] MEDS ORDERED: FLU QUADRIvalent (5+ YOA) 2018-2019 (AFLURIA) 0.5 ML IM ONE (11:45)
[2018-09-06] MEDS: inSUlin ASPART (NovoLOG) 1 UNIT/0.01 ML (CHARGE PER UNIT) SC SCH ×9 (11:47→20:54)
--- NOTE | 2018-09-06 14:28 | History & Physicial ([facility]) ---
HPI History of Present Illness: 48 yo female who is unable to provide history- states she doesn't really remember anything but believes she had a seizure. Per ER report, she was brought in after found unresponsive on toilet and after arrival to ER did have seizure activity. She denies fever, headache, chest pain, shortness of breath, nausea, vomiting, diarrhea, constipation at home before this. She states she doesn't know how her urine drug screen could be positive for methamphetamine. She was recently hospitalized at for multiple arterial thromboses and had thrombectomy in left femoral area as well as uterine artery embolization due to her persistent uterine bleeding that was limiting her ability to take anticoagulation for her left ventricular thrombus. She states she has been taking her medications at home including her insulin, although her blood sugar was above 700 on arrival. She has never had seizures before and denies drinking alcohol anytime recently. Per record review, it appears she was also treated for polymicrobial bacteremia with daptomycin and was to get outpatient IV every 2 weeks, unclear if she has had this or followed up on this. 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 Patients Allergies have been reviewed. Allergies Coded Allergies: Penicillins (Verified Allergy, Unknown, 12/08/07) [id number]-[place] Hx Patient Social History Alcohol Use: Denies Use Recreational Drug Use: Yes Drug of Choice: Meth and benzo's Smoking Status: Current Everyday Smoker Type Used: Cigarettes 2nd Hand Smoke Exposure: Yes Recent Foreign Travel: No Contact w/other who traveled: No Recent Hopitalizations: Yes ([id number] [facility]) Recent Infectious Disease Expo: No Physical Abuse Screen: No Sexual Abuse: No Immunizations Up To Date Tetanus Booster (TDap): Less than 5yrs Date of Pneumonia Vaccine: Jun 12, 2008 Date of Influenza Vaccine: Sep 17, 2014 Past Medical History PMHx: Diabetes Mellitus - Type 2 (dx age 33) - insulin requiring Anxiety Atherosclerotic occlusive disease Superficial femoral vein thrombus Chronic anemia Tobacco Abuse Neuropathy Kidney Stones Depression Gastroparesis Hyperlipidemia Uterine Fibroids Dysfunctional Uterine Bleeding Left ventricular thrombus Congestive heart failure with EF 15% March 2018 Splenic infarct Renal infarct PSH: cholecystectomy Left leg arterial bypass Left BKA Section Vascular Stenting Left femoral artery thrombectomy Uterine artery embolization Family Medical History Significant Family History: Heart Disease, Diabetes Family History: Diabetes mellitus 19 FATHER 19 MOTHER G8 BROTHER G8 SISTER Myocardial infarction 19 MOTHER Review of Systems ([facility]) Constitutional: see HPI EENTM: no symptoms reported Respiratory: see HPI Cardiovascular: see HPI Gastrointestinal: no symptoms reported, see HPI Genitourinary: no symptoms reported Musculoskeletal: back pain, neck pain Skin: no symptoms reported Psychiatric/Neurological: No Symptoms Reported Reviewed Test Results Reviewed Test Results Lab Laboratory Tests Test 09/06/18 04:48 09/06/18 06:31 09/06/18 06:40 09/06/18 08:00 Range/Units White Blood Count 7.8 4.3-11.0 10^3/uL Red Blood Count 3.66 L 4.35-5.85 10^6/uL Hemoglobin 9.6 L 11.5-16.0 G/DL Hematocrit 30 L 35-52 % Mean Corpuscular Volume 82 80-99 FL Mean Corpuscular Hemoglobin 26 25-34 PG Mean Corpuscular Hemoglobin Concent 32 32-36 G/DL Red Cell Distribution Width 17.6 H 10.0-14.5 % Platelet Count 691 H 130-400 10^3/uL Mean Platelet Volume 9.2 7.4-10.4 FL Neutrophils (%) (Auto) 71 42-75 % Lymphocytes (%) (Auto) 18 12-44 % Monocytes (%) (Auto) 8 0-12 % Eosinophils (%) (Auto) 2 0-10 % Basophils (%) (Auto) 1 0-10 % Neutrophils # (Auto) 5.5 1.8-7.8 X 10^3 Lymphocytes # (Auto) 1.4 1.0-4.0 X 10^3 Monocytes # (Auto) 0.6 0.0-1.0 X 10^3 Eosinophils # (Auto) 0.2 0.0-0.3 10^3/uL Basophils # (Auto) 0.1 0.0-0.1 10^3/uL Prothrombin Time 13.5 12.2-14.7 SEC INR Comment 1.0 0.8-1.4 Activated Partial Thromboplast Time 25 24-35 SEC Sodium Level 131 L 135-145 MMOL/L Potassium Level 4.1 3.6-5.0 MMOL/L Chloride Level 98 98-107 MMOL/L Carbon Dioxide Level 23 21-32 MMOL/L Anion Gap 10 5-14 MMOL/L Blood Urea Nitrogen 17 7-18 MG/DL Creatinine 1.13 0.60-1.30 MG/DL Estimat Glomerular Filtration Rate 51 BUN/Creatinine Ratio 15 Glucose Level 701 *H 70-105 MG/DL Lactic Acid Level 2.86 *H 0.50-2.00 MMOL/L Calcium Level 9.3 8.5-10.1 MG/DL Corrected Calcium 9.7 8.5-10.1 MG/DL Magnesium Level 1.9 1.8-2.4 MG/DL Total Bilirubin 0.3 0.1-1.0 MG/DL Aspartate Amino Transf (AST/SGOT) 10 5-34 U/L Alanine Aminotransferase (ALT/SGPT) 12 0-55 U/L Alkaline Phosphatase 99 40-136 U/L Total Protein 6.8 6.4-8.2 GM/DL Albumin 3.5 3.2-4.5 GM/DL Serum Alcohol < 10 <10 MG/DL Smear Scan YES Glucometer 465 *H 301 H 70-110 MG/DL Urine Color YELLOW Urine Clarity CLEAR Urine pH 6 5-9 Urine Specific [place] 1.005 L 1.016-1.022 Urine Protein 2+ H NEGATIVE Urine Glucose (UA) 4+ H NEGATIVE Urine Ketones NEGATIVE NEGATIVE Urine Nitrite NEGATIVE NEGATIVE Urine Bilirubin NEGATIVE NEGATIVE Urine Urobilinogen NORMAL NORMAL MG/DL Urine Leukocyte Esterase NEGATIVE NEGATIVE Urine RBC (Auto) NEGATIVE NEGATIVE Urine RBC 0-2 /HPF Urine WBC RARE /HPF Urine Squamous Epithelial Cells RARE /HPF Urine Crystals NONE /LPF Urine Bacteria FEW H /HPF Urine Casts NONE /LPF Urine Mucus NEGATIVE /LPF Urine Culture Indicated NO Urine Opiates Screen NEGATIVE NEGATIVE Urine Oxycodone Screen NEGATIVE NEGATIVE Urine Methadone Screen NEGATIVE NEGATIVE Urine Propoxyphene Screen NEGATIVE NEGATIVE Urine Barbiturates Screen NEGATIVE NEGATIVE Ur Tricyclic Antidepressants Screen NEGATIVE NEGATIVE Urine Phencyclidine Screen NEGATIVE NEGATIVE Urine Amphetamines Screen NEGATIVE NEGATIVE Urine Methamphetamines Screen POSITIVE H NEGATIVE Urine Benzodiazepines Screen POSITIVE H NEGATIVE Urine Cocaine Screen NEGATIVE NEGATIVE Urine Cannabinoids Screen NEGATIVE NEGATIVE Test 09/06/18 08:04 09/06/18 11:26 09/06/18 12:36 09/06/18 13:31 Range/Units Lactic Acid Level 2.56 *H 0.50-2.00 MMOL/L Glucometer 401 *H 303 H 213 H 70-110 MG/DL Radiology CTA head and neck 09/06/18 DRAFT IMPRESSION: 1. No acute intracranial CT findings. No abnormal intracranial enhancement. 2. No high-grade narrowing, aneurysm or dissection involving the major arteries in the head and neck. 3. Posterior disc osteophyte complex at C6-C7 appears to result in at least moderate spinal canal narrowing. This could be better evaluated with MRI or CT myelogram if clinically warranted. CXR 09/06/18 unremarkable Physical Exam-([facility]) Physical Exam Vital Signs VS - Last 72 Hours, by Label 09/06/18 09/06/18 09/06/18 09/06/18 04:26 09:38 10:30 10:45 Temp 98.9 Pulse 92 98 101 96 Resp 20 18 25 14 B/P (MAP) 132/68 (89) 149/79 (102) 148/78 (101) 150/80 (103) Pulse Ox 98 96 98 O2 Delivery Room Air 09/06/18 09/06/18 09/06/18 09/06/18 11:00 11:15 11:30 12:49 Temp 100.0 Pulse 96 98 99 Resp 13 14 46 B/P (MAP) 151/80 (103) 149/78 (101) 143/88 (106) Pulse Ox 97 98 99 09/06/18 14:22 Temp 99.5 B/P (MAP) O2 Delivery Room Air Capillary Refill : Less Than 3 Seconds General Appearance: no apparent distress Respiratory: lungs clear, normal breath sounds Cardiovascular: regular rate, rhythm, no murmur Gastrointestinal: normal bowel sounds, non tender, soft Extremities: no pedal edema Neurologic/Psychiatric: alert, normal mood/affect; No aphasia, No facial droop Skin: normal color, warm/dry Assessment/Plan Assessment/Plan Admission Status: Inpatient Order (span 2 midnights) Reason for Inpatient Admission: Seizures, marked hyperglycemia with multiple serious comorbidities including CHF increasing risk for decompensation. (1) New onset seizure Status: Acute Assessment & Plan: CTA head and neck unremarkable, labs without significant electrolyte distrubances, suspect may be related to methamphetamine, received Keppra in ER. Will monitor for recurrence. (2) Positive urine drug screen Status: Acute Assessment & Plan: Patient denies use, but has had history of substance use previously, encouraged cessation. (3) Uncontrolled diabetes mellitus Status: Chronic Assessment & Plan: No evidence of DKA, sliding scale insulin and resume home insulin when taking good PO Qualifiers: Qualified Codes: E11.65 - Type 2 diabetes mellitus with hyperglycemia (4) Dysfunctional uterine bleeding Status: Chronic Assessment & Plan: Improved per her report since uterine artery embolization- no bleeding in last 2 weeks. (5) Peripheral vascular disease of lower extremity Status: Chronic (6) Anemia Status: Chronic Assessment & Plan: Monitor closely, should be more stable with treatment of her dysfunctional uterine bleeding. Qualifiers: (7) Left ventricular thrombus Status: Chronic Assessment & Plan: Supposed to be on Eliquis per d/c records from , will continue. (8) Heart failure Status: Chronic Assessment & Plan: No evidence of decompensation currently, monitor closely. Qualifiers: Qualified Codes: I50.22 - Chronic systolic (congestive) heart failure (9) DVT prophylaxis Status: Acute Assessment & Plan: On Eliquis Clinical Quality Measures DVT/VTE Risk/Contraindication: Risk Factor Score Per Nursin RFS Level Per Nursing on Admit: 4+=Very High JERILYN ORTIZ MD Sep 06, 2018 2:28 pm
[2018-09-06] MEDS: LEVETIRACETAM 500 MG (KEPPRA) TAB PO SCH (20:59)
[2018-09-06] MEDS: APIXABAN 5 MG (ELIQUIS) TABLET PO SCH (20:59)
[2018-09-07] VITALS (16 sets, daily range): BP systolic 113–147; BP diastolic 49–97
[2018-09-07] MEDS: NS IV 1000 ML 1,000 ML IV SCH ×3 (03:45→12:38)
[2018-09-07 03:48] LABS: BASOPHILS # (AUTO) 0.1 10^3/uL (0.0-0.1); BASOPHILS % (AUTO) 1 % (0-10); EOSINOPHILS # (AUTO) 0.1 10^3/uL (0.0-0.3); EOSINOPHILS % (AUTO) 1 % (0-10); HEMATOCRIT 26 % (35-52); HEMOGLOBIN 7.8 G/DL (11.5-16.0); LYMPHOCYTES # (AUTO) 1.5 X 10^3 (1.0-4.0); LYMPHOCYTES % (AUTO) 15 % (12-44); MEAN CORPUSCULAR HEMOGLOBIN 25 PG (25-34); MEAN CORPUSCULAR HGB CONC 31 G/DL (32-36); MEAN CORPUSCULAR VOLUME 82 FL (80-99); MEAN PLATELET VOLUME 8.9 FL (7.4-10.4); MONOCYTES # (AUTO) 0.7 X 10^3 (0.0-1.0); MONOCYTES % (AUTO) 7 % (0-12); NEUTROPHILS # (AUTO) 7.4 X 10^3 (1.8-7.8); NEUTROPHILS % (AUTO) 76 % (42-75); PLATELET COUNT 606 10^3/uL (130-400); RED BLOOD COUNT 3.11 10^6/uL (4.35-5.85); RED CELL DISTRIBUTION WIDTH 17.8 % (10.0-14.5); WHITE BLOOD COUNT 9.7 10^3/uL (4.3-11.0)
[2018-09-07 04:04] LABS: BUN/CREATININE RATIO 27; CALCIUM 8.5 MG/DL (8.5-10.1); CARBON DIOXIDE 19 MMOL/L (21-32); CHLORIDE 106 MMOL/L (98-107); CREATININE SERUM 0.71 MG/DL (0.60-1.30); GFR ESTIMATED > 60; GLUCOSE 322 MG/DL (70-105); MAGNESIUM 1.6 MG/DL (1.8-2.4); PHOSPHORUS 2.7 MG/DL (2.3-4.7); POTASSIUM 4.1 MMOL/L (3.6-5.0); SODIUM 133 MMOL/L (135-145)
[2018-09-07] MEDS: MAGNESIUM 1 GM/100 ML IVPB 100 ML IV SCH ×2 (04:33→05:38)
[2018-09-07] MEDS ORDERED: POTASSIUM CL 10MEQ/50ML IVPB 50 ML IV SCH (06:00)
[2018-09-07] MEDS ORDERED: MAGNESIUM 1 GM/100 ML IVPB 100 ML IV SCH (06:00)
[2018-09-07] MEDS ORDERED: KCL 20 MEQ TAB (K-DUR) PO SCH (06:00)
[2018-09-07] MEDS: inSUlin ASPART (NovoLOG) 1 UNIT/0.01 ML (CHARGE PER UNIT) SC SCH ×6 (06:02→22:18)
[2018-09-07] MEDS ORDERED: inSUlin (REGULAR) HUMAN 1 UNIT/0.01 ML (CHARGE PER UNIT) IV ONE (06:15)
--- NOTE | 2018-09-07 07:18 | Diagnostic Imaging Report ---
INDICATION: Dyspnea. Portable upright AP view of the chest is obtained. Comparison is made study of 09/06/2018. Overall heart size and pulmonary vascularity are within normal. There is no evidence of pneumothorax or consolidation. There is mild air trapping similar to the previous study. No significant pleural fluid is identified. IMPRESSION: Mild bilateral air trapping without other evidence of acute abnormality identified. Dictated by: Dictated on workstation # [id number]
[2018-09-07] MEDS: LEVETIRACETAM 500 MG (KEPPRA) TAB PO SCH ×2 (08:58→21:45)
[2018-09-07] MEDS: APIXABAN 5 MG (ELIQUIS) TABLET PO SCH ×2 (08:58→21:45)
[2018-09-07] MEDS ORDERED: VANCOMYCIN INJECTION 0.1 MG in NS (IVPB) 250 ML IV SCH (10:00)
[2018-09-07] MEDS ORDERED: APIX5TAB PO (10:09)
[2018-09-07] MEDS ORDERED: SPIR25TA5 PO (10:09)
[2018-09-07] MEDS ORDERED: INSU100I23 SQ (10:09)
[2018-09-07] MEDS ORDERED: VITS42.53 TP (10:09)
[2018-09-07] MEDS ORDERED: INSU100I29 SQ (10:09)
[2018-09-07] MEDS ORDERED: SENN1TAB93 PO (10:09)
[2018-09-07] MEDS ORDERED: ATOR80TA76 PO (10:09)
[2018-09-07] MEDS ORDERED: NYST1POW22 TOP (10:09)
[2018-09-07] MEDS ORDERED: ASPI-999 PO (10:09)
[2018-09-07] MEDS ORDERED: MULT400T5 PO (10:09)
[2018-09-07] MEDS ORDERED: FERR325T18 PO (10:09)
[2018-09-07] MEDS ORDERED: VANCOMYCIN 1500 MG/NS 500 ML IVPB IV NR ×2 (11:00)
--- NOTE | 2018-09-07 16:31 | Progress Note (SOAP) ---
Subjective Subjective/Events-last exam Afebrile, no seizure activity. She denies concerns. Review of Systems Date Seen by Provider: Sep 07, 2018 Time Seen by Provider: 08:50 Focused Exam Lactate Level 09/06/18 04:48: Lactic Acid Level 2.86*H 09/06/18 08:04: Lactic Acid Level 2.56*H Objective Exam Last Set of Vital Signs Vital Signs Date Time Temp Pulse Resp B/P (MAP) Pulse Ox O2 Delivery O2 Flow Rate FiO2 09/07/18 16:00 81 22 113/59 (77) 98 Room Air 09/07/18 03:48 99.8 Capillary Refill : Less Than 3 Seconds I&O Intake and Output 09/07/18 00:00 Intake Total 4055 ml Output Total 2600 ml Balance 1455 ml Intake Oral 900 ml IV Total 3155 ml Output Urine Total 2600 ml Daily Weight Change No General: Alert, No Acute Distress Lungs: Clear to Auscultation, Normal Air Movement Heart: Regular Rate, No Murmurs Abdomen: Normal Bowel Sounds, Soft Psych/Mental Status: Mood NL Results/Procedures Lab Laboratory Tests 09/06/18 17:10: Glucometer 77 09/06/18 17:48: Glucometer 147H 09/06/18 18:36: Glucometer 201H 09/06/18 20:52: Glucometer 347H 09/07/18 03:38: White Blood Count 9.7, Red Blood Count 3.11L, Hemoglobin 7.8L, Hematocrit 26L, Mean Corpuscular Volume 82, Mean Corpuscular Hemoglobin 25, Mean Corpuscular Hemoglobin Concent 31L, Red Cell Distribution Width 17.8H, Platelet Count 606H, Mean Platelet Volume 8.9, Neutrophils (%) (Auto) 76H, Lymphocytes (%) (Auto) 15 , Monocytes (%) (Auto) 7, Eosinophils (%) (Auto) 1, Basophils (%) (Auto) 1, Neutrophils # (Auto) 7.4, Lymphocytes # (Auto) 1.5, Monocytes # (Auto) 0.7, Eosinophils # (Auto) 0.1, Basophils # (Auto) 0.1, Sodium Level 133L, Potassium Level 4.1, Chloride Level 106, Carbon Dioxide Level 19L, Anion Gap 8, Blood Urea Nitrogen 19H, Creatinine 0.71, Estimat Glomerular Filtration Rate > 60, BUN /Creatinine Ratio 27, Glucose Level 322H, Calcium Level 8.5, Phosphorus Level 2.7, Magnesium Level 1.6L 09/07/18 05:45: Glucometer 548*H 09/07/18 08:27: Glucometer 404*H 09/07/18 12:37: Glucometer 123H 09/07/18 12:56: Glucometer 90 09/07/18 15:18: Glucometer 75 Microbiology 09/06/18 Blood Culture - Preliminary, Resulted Staphylococcus aureus Radiology CTA head and neck 09/06/18 DRAFT IMPRESSION: 1. No acute intracranial CT findings. No abnormal intracranial enhancement. 2. No high-grade narrowing, aneurysm or dissection involving the major arteries in the head and neck. 3. Posterior disc osteophyte complex at C6-C7 appears to result in at least moderate spinal canal narrowing. This could be better evaluated with MRI or CT myelogram if clinically warranted. CXR 09/06/18 unremarkable Assessment/Plan Assessment/Plan (1) New onset seizure Status: Acute Assessment & Plan: CTA head and neck unremarkable, labs without significant electrolyte distrubances, suspect may be related to methamphetamine, received Keppra in ER. Will monitor for recurrence. 09/07 no further seizure activity (2) Positive urine drug screen Status: Acute Assessment & Plan: Patient denies use, but has had history of substance use previously, encouraged cessation. (3) Uncontrolled diabetes mellitus Status: Chronic Assessment & Plan: No evidence of DKA, sliding scale insulin and resume home insulin when taking good PO 09/07 resumed home insulin Qualifiers: Qualified Codes: E11.65 - Type 2 diabetes mellitus with hyperglycemia (4) Dysfunctional uterine bleeding Status: Chronic Assessment & Plan: Improved per her report since uterine artery embolization- no bleeding in last 2 weeks. (5) Peripheral vascular disease of lower extremity Status: Chronic (6) Anemia Status: Chronic Assessment & Plan: Monitor closely, should be more stable with treatment of her dysfunctional uterine bleeding. 09/07 Hgb decreased to 7.8, may need transfusion tomorrow if continued decrease. Denies active bleeding. Qualifiers: (7) Left ventricular thrombus Status: Chronic Assessment & Plan: Supposed to be on Eliquis per d/c records from , will continue. (8) Heart failure Status: Chronic Assessment & Plan: No evidence of decompensation currently, monitor closely. 09/07 resume home carvedilol, lisinopril, furosemide, spironolactone Qualifiers: Qualified Codes: I50.22 - Chronic systolic (congestive) heart failure (9) Bacteremia Status: Acute Assessment & Plan: Per [facility] record review was treated for several days there with daptomycin and plan was to treat with dalbavancin x 2 doses two weeks apart , however cost was prohibitive and has not been set up. Culture this admission with staph, will start vancomycin for now based on previous culture and follow up sensitivity. No evidence of sepsis. (10) DVT prophylaxis Status: Acute Assessment & Plan: On EliKSE Clinical Quality Measures DVT/VTE Risk/Contraindication: Risk Factor Score Per Nursin RFS Level Per Nursing on Admit: 4+=Very High JERILYN RAMESH MD Sep 07, 2018 4:31 pm
[2018-09-07] MEDS ORDERED: PATIENT MAY USE OWN MEDS, ALL MC SCH (19:30)
[2018-09-07] MEDS ORDERED: inSUlin DETERMIR 1 UNIT/0.01 ML (LEVEMIR) CHARGE PER UNIT SQ SCH (21:00)
[2018-09-07] MEDS: CARVEDILOL 3.125 MG (COREG) TABLET PO SCH (21:37)
[2018-09-07] MEDS: VANCOMYCIN 1 GM/NS 250 ML IVPB IV SCH ×2 (22:25)
[2018-09-08 00:10] VITALS: BP 139/74
[2018-09-08 04:12] VITALS: BP 147/71
[2018-09-08] MEDS: inSUlin ASPART (NovoLOG) 1 UNIT/0.01 ML (CHARGE PER UNIT) SC SCH ×4 (05:16→11:22)
[2018-09-08 08:00] VITALS: BP 122/70
[2018-09-08] MEDS ORDERED: ASPIRIN 81 MG CHEW (CHILDREN'S ASA) PO SCH (09:00)
[2018-09-08] MEDS ORDERED: ATORVASTATIN 40 MG (LIPITOR) TABLET PO SCH (09:00)
[2018-09-08] MEDS ORDERED: FUROSEMIDE 40 MG (LASIX) TAB PO SCH (09:00)
[2018-09-08] MEDS ORDERED: SPIRONOLACTONE 25 MG (ALDACTONE) TAB PO SCH (09:00)
[2018-09-08] MEDS ORDERED: LISINOPRIL 2.5MG TABLET PO SCH (09:00)
[2018-09-08] MEDS ORDERED: FERROUS SULF 325 MG (IRON) TAB PO SCH (09:00)
[2018-09-08] MEDS: APIXABAN 5 MG (ELIQUIS) TABLET PO SCH (09:04)
[2018-09-08] MEDS: LEVETIRACETAM 500 MG (KEPPRA) TAB PO SCH (09:04)
[2018-09-08] MEDS: CARVEDILOL 3.125 MG (COREG) TABLET PO SCH (09:07)
[2018-09-08 09:16] LABS: HEMOGLOBIN 8.2 G/DL (11.5-16.0); RED BLOOD COUNT 3.21 10^6/uL (4.35-5.85); RED CELL DISTRIBUTION WIDTH 18.5 % (10.0-14.5); WHITE BLOOD COUNT 9.6 10^3/uL (4.3-11.0)
[2018-09-08] MEDS ORDERED: TROUGH ORDER-PHARMACY XX ONE (10:00)
[2018-09-08 10:36] LABS: ALANINE AMINOTRANSFERASE 13 U/L (0-55); ALBUMIN 3.1 GM/DL (3.2-4.5); ALKALINE PHOSPHATASE 71 U/L (40-136); BILIRUBIN,TOTAL 0.2 MG/DL (0.1-1.0); BUN/CREATININE RATIO 35; CARBON DIOXIDE 25 MMOL/L (21-32); CHLORIDE 105 MMOL/L (98-107); CREATININE SERUM 0.68 MG/DL (0.60-1.30); GFR ESTIMATED > 60; GLUCOSE 96 MG/DL (70-105); POTASSIUM 4.7 MMOL/L (3.6-5.0); SODIUM 137 MMOL/L (135-145); TOTAL PROTEIN 6.5 GM/DL (6.4-8.2)
[2018-09-08 10:42] LABS: VANCOMYCIN,TROUGH 12.6 UG/ML (10.0-20.0)
[2018-09-08] MEDS: VANCOMYCIN 1 GM/NS 250 ML IVPB IV SCH ×2 (11:21)
[2018-09-08] MEDS ORDERED: FLU QUADRIvalent (5+ YOA) 2018-2019 (AFLURIA) 0.5 ML IM ONE (11:25)
[2018-09-08] MEDS ORDERED: SULF1TAB35 PO (11:57)
[2018-09-08] MEDS ORDERED: LEVE500T6 PO (11:58)
[2018-09-08 12:00] VITALS: BP 132/73
--- NOTE | 2018-09-08 12:00 | Discharge Instructions ---
Discharge [facility] Discharge Medications New, Converted or Re-Newed RX: Transmitted to Pharmacy New Medications: Sulfamethoxazole/Trimethoprim (Bactrim Ds Tablet) 1 Each Tablet 1 EACH PO BID, #20 TAB 0 Refills Levetiracetam (Levetiracetam) 500 Mg Tablet 500 MG PO BID, #60 TAB 0 Refills Continued Medications: Apixaban (Eliquis) 5 Mg Tablet 5 MG PO BID, TAB Aspirin (Aspirin) 81 Mg Tab.chew 81 MG PO DAILY, TAB Atorvastatin Calcium (Atorvastatin Calcium) 80 Mg Tablet 80 MG PO DAILY, TAB Carvedilol (Carvedilol) 3.125 Mg Tablet 3.125 MG PO BID, #60 TAB 0 Refills Ferrous Sulfate (Ferrous Sulfate) 325 Mg Tablet 325 MG PO DAILY, TAB Furosemide (Furosemide) 40 Mg Tablet 40 MG PO DAILY, #30 TAB 0 Refills Insulin Detemir (Levemir Flextouch) 100 Unit/1 Ml Insuln.pen 50 UNIT SQ HS, #1 EA Insulin Lispro (Humalog Kwikpen) 100 Unit/1 Ml Insuln.pen 10 UNIT SQ AC, #1 EA Lisinopril (Lisinopril) 2.5 Mg Tablet 2.5 MG PO DAILY, #30 TAB 0 Refills Metformin HCl (Metformin HCl) 500 Mg Tablet 500 MG PO BID, #60 TAB 0 Refills Multivitamin with Folic Acid (One Daily Multivitamin Tablet) 400 Mcg Tablet 400 MCG PO DAILY, TAB Nystatin (Nystatin) 1 Each Powder.ea. 1 EACH TOP BID, UNIT Sennosides/Docusate Sodium (Senna-Docusate Sodium Tablet) 1 Each Tablet 1 EACH PO DAILY, TAB Spironolactone (Spironolactone) 25 Mg Tablet 25 MG PO DAILY, TAB Vits A and D/White Pet/Lanolin (A and D Ointment) 42.5 Gm Oint...g. 42.5 GM TP PRN, TUBE Patient Instructions Goal/Follow Up Appt: Follow up with Dr. Cesar at [facility] on 09/14 at 1:20 pm. Patient Instructions: Do not take spironolactone while taking the antibiotic Bactrim for the next 10 days because the combination can increase your potassium. Return to The Hospital For: Fever, seizures, dizziness/lightheadedness Activity & Diet Discharge Diet: ADA Diet Copy Copies To 1: YANI CESAR MD,JERILYN Daniels MD Sep 08, 2018 12:00 pm
--- NOTE | 2018-09-08 12:02 | Discharge Summary ---
Diagnosis/Chief Complaint Date of Admission Sep 06, 2018 at 09:24 Date of Discharge Sep 08, 2018 Admission Diagnosis Admission Diagnosis (1) New onset seizure (2) Positive urine drug screen (3) Uncontrolled diabetes mellitus (4) Dysfunctional uterine bleeding (5) Peripheral vascular disease of lower extremity (6) Anemia (7) Left ventricular thrombus (8) Heart failure Discharge Diagnosis (1) New onset seizure Status: Acute Assessment & Plan: CTA head and neck unremarkable, labs without significant electrolyte disturbances, suspect may be related to methamphetamine, received Keppra in ER. Will monitor for recurrence. 09/08 no further seizure activity, discharged on Keppra, will likely be able to d/c in the future if no recurrences. (2) Positive urine drug screen Status: Acute Assessment & Plan: Patient denies use, but has had history of substance use previously, encouraged cessation. (3) Uncontrolled diabetes mellitus Status: Chronic Assessment & Plan: No evidence of DKA, sliding scale insulin and resumed home insulin when taking good PO 09/07 resumed home insulin Qualifiers: Qualified Codes: E11.65 - Type 2 diabetes mellitus with hyperglycemia (4) Dysfunctional uterine bleeding Status: Chronic Assessment & Plan: Improved per her report since uterine artery embolization- no bleeding in last 2 weeks. (5) Peripheral vascular disease of lower extremity Status: Chronic (6) Anemia Status: Chronic Assessment & Plan: Monitor closely, should be more stable with treatment of her dysfunctional uterine bleeding. 09/07 Hgb decreased to 7.8, may need transfusion tomorrow if continued decrease. Denies active bleeding. 11/08 hemoglobin stable, continue to monitor outpatient. (7) Left ventricular thrombus Status: Chronic Assessment & Plan: Supposed to be on Eliquis per d/c records from , will continue. (8) Heart failure Status: Chronic Assessment & Plan: No evidence of decompensation currently, monitor closely. 09/07 resume home carvedilol, lisinopril, furosemide, spironolactone 09/08 held spironolactone on d/c for 10 days to interaction between lisinopril, spironolactone and Bactrim with risk of hyperkalemia and her K was 4.7 on day of d/c without Bactrim. (9) Bacteremia Status: Acute Assessment & Plan: Per record review was treated for several days there with daptomycin and plan was to treat with dalbavancin x 2 doses two weeks apart , however cost was prohibitive and has not been set up. Culture this admission with staph, will start vancomycin for now based on previous culture and follow up sensitivity. No evidence of sepsis. 09/08 culture with MSSA, discharged with 10 days of Bactrim Chief Complaint/HPI Chief Complaint/HPI 48 yo female who is unable to provide history- states she doesn't really remember anything but believes she had a seizure. Per ER report, she was brought in after found unresponsive on toilet and after arrival to ER did have seizure activity. She denies fever, headache, chest pain, shortness of breath, nausea, vomiting, diarrhea, constipation at home before this. She states she doesn't know how her urine drug screen could be positive for methamphetamine. She was recently hospitalized at for multiple arterial thromboses and had thrombectomy in left femoral area as well as uterine artery embolization due to her persistent uterine bleeding that was limiting her ability to take anticoagulation for her left ventricular thrombus. She states she has been taking her medications at home including her insulin, although her blood sugar was above 700 on arrival. She has never had seizures before and denies drinking alcohol anytime recently. Per record review, it appears she was also treated for polymicrobial bacteremia with daptomycin and was to get outpatient IV every 2 weeks, unclear if she has had this or followed up on this. Discharge Summary-Simple/Stand Consultations Discharge Physical Examination Allergies: Coded Allergies: Penicillins (Verified Allergy, Unknown, 12/08/07) Vitals & I&Os Vital Sign - Last 12Hours Date Time Temp Pulse Resp B/P (MAP) Pulse Ox O2 Delivery O2 Flow Rate FiO2 09/08/18 08:00 97.0 77 18 122/70 (87) 98 Room Air Intake and Output 09/08/18 00:00 Intake Total 1290 ml Output Total 2050 ml Balance -760 ml General Appearance: Alert, No Acute Distress Respiratory: Clear to Auscultation, Normal Air Movement Cardiovascular: Regular Rate Abdominal: Normal Bowel Sounds, Soft Neuro: Normal Speech Hospital Course See final discharge diagnosis. Labs Laboratory Tests Test 09/06/18 14:57 09/06/18 16:06 09/06/18 16:24 09/06/18 17:10 Range/Units Glucometer 278 H 48 *L 52 *L 77 70-110 MG/DL Test 09/06/18 17:48 09/06/18 18:36 09/06/18 20:52 09/07/18 03:38 Range/Units Glucometer 147 H 201 H 347 H 70-110 MG/DL White Blood Count 9.7 4.3-11.0 10^3/uL Red Blood Count 3.11 L 4.35-5.85 10^6/uL Hemoglobin 7.8 L 11.5-16.0 G/DL Hematocrit 26 L 35-52 % Mean Corpuscular Volume 82 80-99 FL Mean Corpuscular Hemoglobin 25 25-34 PG Mean Corpuscular Hemoglobin Concent 31 L 32-36 G/DL Red Cell Distribution Width 17.8 H 10.0-14.5 % Platelet Count 606 H 130-400 10^3/uL Mean Platelet Volume 8.9 7.4-10.4 FL Neutrophils (%) (Auto) 76 H 42-75 % Lymphocytes (%) (Auto) 15 12-44 % Monocytes (%) (Auto) 7 0-12 % Eosinophils (%) (Auto) 1 0-10 % Basophils (%) (Auto) 1 0-10 % Neutrophils # (Auto) 7.4 1.8-7.8 X 10^3 Lymphocytes # (Auto) 1.5 1.0-4.0 X 10^3 Monocytes # (Auto) 0.7 0.0-1.0 X 10^3 Eosinophils # (Auto) 0.1 0.0-0.3 10^3/uL Basophils # (Auto) 0.1 0.0-0.1 10^3/uL Sodium Level 133 L 135-145 MMOL/L Potassium Level 4.1 3.6-5.0 MMOL/L Chloride Level 106 98-107 MMOL/L Carbon Dioxide Level 19 L 21-32 MMOL/L Anion Gap 8 5-14 MMOL/L Blood Urea Nitrogen 19 H 7-18 MG/DL Creatinine 0.71 0.60-1.30 MG/DL Estimat Glomerular Filtration Rate > 60 BUN/Creatinine Ratio 27 Glucose Level 322 H 70-105 MG/DL Calcium Level 8.5 8.5-10.1 MG/DL Phosphorus Level 2.7 2.3-4.7 MG/DL Magnesium Level 1.6 L 1.8-2.4 MG/DL Test 09/07/18 05:45 09/07/18 08:27 09/07/18 12:37 09/07/18 12:56 Range/Units Glucometer 548 *H 404 *H 123 H 90 70-110 MG/DL Test 09/07/18 15:18 09/07/18 16:27 09/07/18 21:48 09/08/18 05:14 Range/Units Glucometer 75 123 H 318 H 78 70-110 MG/DL Test 09/08/18 05:15 09/08/18 10:05 09/08/18 10:54 Range/Units White Blood Count 9.6 4.3-11.0 10^3/uL Red Blood Count 3.21 L 4.35-5.85 10^6/uL Hemoglobin 8.2 L 11.5-16.0 G/DL Hematocrit 27 L 35-52 % Mean Corpuscular Volume 83 80-99 FL Mean Corpuscular Hemoglobin 26 25-34 PG Mean Corpuscular Hemoglobin Concent 31 L 32-36 G/DL Red Cell Distribution Width 18.5 H 10.0-14.5 % Platelet Count 583 H 130-400 10^3/uL Mean Platelet Volume 9.0 7.4-10.4 FL Sodium Level 137 135-145 MMOL/L Potassium Level 4.7 3.6-5.0 MMOL/L Chloride Level 105 98-107 MMOL/L Carbon Dioxide Level 25 21-32 MMOL/L Anion Gap 7 5-14 MMOL/L Blood Urea Nitrogen 24 H 7-18 MG/DL Creatinine 0.68 0.60-1.30 MG/DL Estimat Glomerular Filtration Rate > 60 BUN/Creatinine Ratio 35 Glucose Level 96 70-105 MG/DL Calcium Level 9.0 8.5-10.1 MG/DL Corrected Calcium 9.7 8.5-10.1 MG/DL Total Bilirubin 0.2 0.1-1.0 MG/DL Aspartate Amino Transf (AST/SGOT) 13 5-34 U/L Alanine Aminotransferase (ALT/SGPT) 13 0-55 U/L Alkaline Phosphatase 71 40-136 U/L Total Protein 6.5 6.4-8.2 GM/DL Albumin 3.1 L 3.2-4.5 GM/DL Vancomycin Level Trough 12.6 10.0-20.0 UG/ML Glucometer 157 H 70-110 MG/DL Radiology Reviewed CTA head and neck 09/06/18 DRAFT IMPRESSION: 1. No acute intracranial CT findings. No abnormal intracranial enhancement. 2. No high-grade narrowing, aneurysm or dissection involving the major arteries in the head and neck. 3. Posterior disc osteophyte complex at C6-C7 appears to result in at least moderate spinal canal narrowing. This could be better evaluated with MRI or CT myelogram if clinically warranted. CXR 09/06/18 unremarkable Discharge Instructions to patient/family Please see electronic discharge instructions given to patient. Discharge Medications Reviewed and agree with Discharge Medication list on patient's Discharge Instruction sheet Clinical Quality Measures DVT/VTE Risk/Contraindication: Risk Factor Score Per Nursin RFS Level Per Nursing on Admit: 4+=Very High Copy Copies To 1: YANI CESAR MD, BETHANY N MD Sep 08, 2018 12:02 pm
[2018-09-08 14:00] VITALS: BP 132/73
== END 2018-09-08 14:00 | disposition home or self-care (01) | DRG 638 ==
LOC: EDUNIT# 04:26 → ER 04:27 → ICU 09:24 → 4TH 09-07 16:05
PROVIDERS: ADMIT Family Medicine; ATTEND Family Medicine
DX: E11.65 Type 2 diabetes mellitus with hyperglycemia (principal); R56.9 Unspecified convulsions; F15.10 Other stimulant abuse, uncomplicated; I50.22 Chronic systolic (congestive) heart failure; R78.81 Bacteremia; F17.210 Nicotine dependence, cigarettes, uncomplicated; I73.9 Peripheral vascular disease, unspecified; I51.3 Intracardiac thrombosis, not elsewhere classified; Z23 Encounter for immunization; N93.8 Other specified abnormal uterine and vaginal bleeding; D64.9 Anemia, unspecified; Z86.718 Personal history of other venous thrombosis and embolism; Z79.01 Long term (current) use of anticoagulants; B95.61 Methicillin susceptible Staphylococcus aureus infection as the cause of diseases classified elsewhere; R82.998 Other abnormal findings in urine
CPT/HCPCS: 36415; 70496; 70498; 71045; 80048; 80053; 80202; 80306; 80320; 81000; 82962; 83605; 83735; 84100; 85025; 85027; 85610; 85730; 87040; 87077; 87186; 90686; 93005; 96361; 96365; 96367; 96375

== ENCOUNTER 2019-04-06 20:15 | Inpatient (IN) | payer SELFPAY ==
[~2019-04-06] VITALS: Ht 180.3 cm; Wt 75.3 kg
[~2019-04-06 20:15] MED LIST changes: +ASPI-999 PO; +ATOR80TA76 PO; +FERR325T18 PO; +LEVE500T6 PO; +MULT400T5 PO; +NYST1POW22 TOP; +SENN1TAB93 PO; +SULF1TAB35 PO; -VANC1.2520 IV; +VANC1.2521 IV; +VITS42.53 TP
[2019-04-06] MEDS ORDERED: NS IV 1000 ML 1,000 ML IV ONE (20:35)
--- NOTE | 2019-04-06 20:52 | ED Abdominal Pain ---
General Stated Complaint: BLOOD IN STOOL Source of Information: Patient Exam Limitations: No Limitations History of Present Illness Date Seen by Provider: April 06, 2019 Time Seen by Provider: 20:31 Initial Comments Here with report of blood in stool today. Reports that she's had diarrhea for the last couple months and has diarrhea every time she eats. She has not had blood in her stool before. Denies rectal pain but states that she has abdominal pain especially with eating. She does have diabetes and that has not been well controlled. 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 She is on warfarin for the vascular disease. She is unsure what her INR is. Denies nausea and vomiting and does state that she can eat she does has diarrhea after Timing/Duration: 12-24 Hours, Getting Worse, Intermittent, Other (diarrhea for 2 months) Severity/Quality: Cramping Location: Generalized Abdomen Radiation: No Radiation Activities at Onset: None Modifying Factors: Improves With Defecating; Worsens With Eating Associated Symptoms: No Back Pain, No Chest Pain, No Fever/Chills; Fatigue; No Nausea/Vomiting, No Shortness of Air, No Swelling/Mass in Abdomen; Weakness Allergies and Home Medications Allergies Coded Allergies: Penicillins (Verified Allergy, Unknown, 04/06/19) Home Medications Apixaban 5 Mg Tablet, 5 MG PO BID, (Reported) Aspirin 81 Mg Tab.chew, 81 MG PO DAILY, (Reported) Atorvastatin Calcium 80 Mg Tablet, 80 MG PO DAILY, (Reported) Carvedilol 3.125 Mg Tablet, 3.125 MG PO BID Prescribed by: JERILYN RAMESH on 08/07/18 1225 Ferrous Sulfate 325 Mg Tablet, 325 MG PO DAILY, (Reported) Furosemide 40 Mg Tablet, 40 MG PO DAILY Prescribed by: JERILYN RAMESH on 08/07/18 1225 Insulin Detemir 100 Unit/1 Ml Insuln.pen, 50 UNIT SQ HS Prescribed by: JERILYN RAMESH on 09/07/18 1009 Insulin Lispro 100 Unit/1 Ml Insuln.pen, 10 UNIT SQ AC Prescribed by: JERILYN RAMESH on 09/07/18 1009 Levetiracetam 500 Mg Tablet, 500 MG PO BID Prescribed by: JERILYN RAMESH on 09/08/18 1158 Lisinopril 2.5 Mg Tablet, 2.5 MG PO DAILY Prescribed by: JERILYN RAMESH on 08/07/18 1225 Metformin HCl 500 Mg Tablet, 500 MG PO BID Prescribed by: JERILYN RAMESH on 08/07/18 1225 Multivitamin with Folic Acid 400 Mcg Tablet, 400 MCG PO DAILY, (Reported) Nystatin 1 Each Powder.ea., 1 EACH TOP BID, (Reported) Sennosides/Docusate Sodium 1 Each Tablet, 1 EACH PO DAILY, (Reported) Spironolactone 25 Mg Tablet, 25 MG PO DAILY, (Reported) Sulfamethoxazole/Trimethoprim 1 Each Tablet, 1 EACH PO BID Prescribed by: JERILYN RAMESH on 09/08/18 1157 Vits A and D/White Pet/Lanolin 42.5 Gm Oint...g., 42.5 GM TP PRN, (Reported) Patient Home Medication List Home Medication List Reviewed: Yes Review of Systems Review of Systems Constitutional: see HPI; No chills, No fever; weakness EENTM: No Symptoms Reported Respiratory: Denies Cough, Denies Shortness of Air Cardiovascular: Denies Chest Pain, Denies Edema Gastrointestinal: Diarrhea; Denies Nausea; Rectal Bleeding; Denies Vomiting Genitourinary: No Symptoms Reported Musculoskeletal: no symptoms reported Skin: no symptoms reported Psychiatric/Neurological: No Symptoms Reported All Other Systems Reviewed Negative Unless Noted: Yes Past Fpetngf-Sdumir-Vyihvv Hx Past Med/Social Hx: Reviewed Nursing Past Med/Soc Hx Patient Social History Alcohol Use: Denies Use Recreational Drug Use: No Drug of Choice: Meth and benzo's Smoking Status: Current Everyday Smoker Type Used: Cigarettes Former Smoker, Quit: Aug 07, 2016 2nd Hand Smoke Exposure: Yes Recent Foreign Travel: No Contact w/Someone Who Travel: No Recent Hopitalizations: Yes ([id number]) Immunizations Up To Date Tetanus Booster (TDap): Less than 5yrs PED Vaccines UTD: No Date of Pneumonia Vaccine: Jun 12, 2008 Date of Influenza Vaccine: Sep 08, 2018 Seasonal Allergies Seasonal Allergies: No Past Medical History Surgeries: Yes Section, Gallbladder, Vascular Surgery Respiratory: Yes COPD 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, Peripheral Vascular Neurological: Yes Neuropathy 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 Disorders: No 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 Disorders: Denies CLAIMS MANAGER History: Menopausal Sexually Transmitted Disease: No HIV/AIDS: No Genitourinary: Yes Bladder Infection, Kidney Stones Gastrointestinal: No Musculoskeletal: Yes Amputee, Arthritis Endocrine: Yes (NON-COMPLIANCE) Diabetes, Insulin dep HEENT: No Cancer: No Psychosocial: Yes Depression Integumentary: No Blood Disorders: Yes (iron deficiency anemia) Adverse Reaction/Blood Tranf: No Family Medical History Reviewed Nursing Family Hx Diabetes mellitus 19 FATHER 19 MOTHER G8 BROTHER G8 SISTER Myocardial infarction 19 MOTHER Heart Disease, Diabetes Physical Exam Vital Signs Vital Signs - First Documented 04/06/19 20:25 Temp 98.0 Pulse 88 Resp 16 B/P (MAP) 140/75 (96) Pulse Ox 99 Capillary Refill : Height/Weight/BMI Height: 5'11.00" Weight: 166lbs. 0.5oz. 75.045431rk; 20.2 BMI Method:Estimated General Appearance: WD/WN, no apparent distress HEENT: PERRL/EOMI, pharynx normal Neck: full range of motion, supple Respiratory: lungs clear, normal breath sounds Cardiovascular: regular rate, rhythm, no murmur Gastrointestinal: non tender, soft Rectal: normal rectal tone, heme negative stool; No mass Extremities: pedal edema (1+ right lower extremity), other (left BKA) Back: normal inspection, no CVA tenderness, no vertebral tenderness Neurologic/Psychiatric: alert, oriented x 3 Skin: normal color, warm/dry Focused Exam Lactate Level 04/06/19 21:45: Lactic Acid Level 1.68 Lactic Acid Level Laboratory Tests Test 04/06/19 21:45 Lactic Acid Level 1.68 MMOL/L (0.50-2.00) Progress/Results/Core Measures Results/Orders Lab Results Laboratory Tests Test 04/06/19 20:30 04/06/19 20:43 04/06/19 21:45 04/06/19 22:21 Range/Units Urine Color YELLOW Urine Clarity SL CLOUDY Urine pH 6.5 5-9 Urine Specific Simpson 1.015 L 1.016-1.022 Urine Protein 2+ H NEGATIVE Urine Glucose (UA) 2+ H NEGATIVE Urine Ketones 2+ H NEGATIVE Urine Nitrite POSITIVE H NEGATIVE Urine Bilirubin NEGATIVE NEGATIVE Urine Urobilinogen NORMAL NORMAL MG/DL Urine Leukocyte Esterase 1+ H NEGATIVE Urine RBC (Auto) 1+ H NEGATIVE Urine RBC TNTC H /HPF Urine WBC 10-25 H /HPF Urine Squamous Epithelial Cells 2-5 /HPF Urine Crystals NONE /LPF Urine Bacteria LARGE H /HPF Urine Casts NONE /LPF Urine Mucus NEGATIVE /LPF Urine Culture Indicated YES White Blood Count 7.7 4.3-11.0 10^3/uL Red Blood Count 4.96 4.35-5.85 10^6/uL Hemoglobin 12.5 11.5-16.0 G/DL Hematocrit 40 35-52 % Mean Corpuscular Volume 80 80-99 FL Mean Corpuscular Hemoglobin 25 25-34 PG Mean Corpuscular Hemoglobin Concent 32 32-36 G/DL Red Cell Distribution Width 17.7 H 10.0-14.5 % Platelet Count 483 H 130-400 10^3/uL Mean Platelet Volume 10.3 7.4-10.4 FL Neutrophils (%) (Auto) 71 42-75 % Lymphocytes (%) (Auto) 20 12-44 % Monocytes (%) (Auto) 7 0-12 % Eosinophils (%) (Auto) 1 0-10 % Basophils (%) (Auto) 1 0-10 % Neutrophils # (Auto) 5.5 1.8-7.8 X 10^3 Lymphocytes # (Auto) 1.6 1.0-4.0 X 10^3 Monocytes # (Auto) 0.6 0.0-1.0 X 10^3 Eosinophils # (Auto) 0.1 0.0-0.3 10^3/uL Basophils # (Auto) 0.0 0.0-0.1 10^3/uL Prothrombin Time 18.8 H 12.2-14.7 SEC INR Comment 1.5 H 0.8-1.4 Activated Partial Thromboplast Time 31 24-35 SEC Sodium Level 126 L 135-145 MMOL/L Potassium Level 4.6 3.6-5.0 MMOL/L Chloride Level 92 L 98-107 MMOL/L Carbon Dioxide Level 23 21-32 MMOL/L Anion Gap 11 5-14 MMOL/L Blood Urea Nitrogen 16 7-18 MG/DL Creatinine 1.31 H 0.60-1.30 MG/DL Estimat Glomerular Filtration Rate 43 BUN/Creatinine Ratio 12 Glucose Level 773 *H 70-105 MG/DL Calcium Level 8.9 8.5-10.1 MG/DL Corrected Calcium 9.1 8.5-10.1 MG/DL Magnesium Level 1.8 1.8-2.4 MG/DL Total Bilirubin 0.3 0.1-1.0 MG/DL Aspartate Amino Transf (AST/SGOT) 18 5-34 U/L Alanine Aminotransferase (ALT/SGPT) 26 0-55 U/L Alkaline Phosphatase 122 40-136 U/L C-Reactive Protein High Sensitivity 0.15 0.00-0.50 MG/DL Total Protein 6.8 6.4-8.2 GM/DL Albumin 3.7 3.2-4.5 GM/DL Lactic Acid Level 1.68 0.50-2.00 MMOL/L Glucometer 597 *H 70-110 MG/DL My Orders Orders - GERRI GALLGAHER MD Cbc With Automated Diff (04/06/19 20:35) Comprehensive Metabolic Panel (04/06/19 20:35) Hs C Reactive Protein (04/06/19 20:35) Magnesium (04/06/19 20:35) Protime With Inr (04/06/19 20:35) Partial Thromboplastin Time (04/06/19 20:35) Ua Culture If Indicated (04/06/19 20:35) Type And Screen (04/06/19 20:35) Accucheck Stat ONCE (04/06/19 20:35) Fecal Occult Bedside (04/06/19 20:35) Ed Iv/Invasive Line Start (04/06/19 20:35) Ns Iv 1000 Ml (Sodium Chloride 0.9%) (04/06/19 20:35) Urine Culture (04/06/19 20:30) Insulin (Regular) Human (Humulin R (Per (04/06/19 21:36) Ed Iv/Invasive Line Start (04/06/19 21:36) Lactated Ringers (Lr 1000 Ml Iv Solution (04/06/19 21:36) Ct Abdomen/Pelvis Wo (04/06/19 21:36) Lactic Acid Analyzer (04/06/19 21:38) Blood Culture (04/06/19 21:38) Ceftriaxone For Iv Use (Rocephin For I (04/06/19 23:00) Hydrocodone/Apap 5/325 Tablet (Lortab 5 (04/06/19 23:15) Medications Given in ED Current Medications Medications Dose Ordered Sig/Vaughn Route Start Time Stop Time Status Last Admin Dose Admin Lactated Ringer's 1,000 ml @ 0 mls/hr Q0M ONCE IV 04/06/19 21:36 04/06/19 21:38 DC 04/06/19 21:46 1,000 MLS/HR Sodium Chloride 1,000 ml @ 0 mls/hr Q0M ONCE IV 04/06/19 20:35 04/06/19 20:38 DC 04/06/19 21:01 1,000 MLS/HR Vital Signs/I&O 04/06/19 20:25 Temp 98.0 Pulse 88 Resp 16 B/P (MAP) 140/75 (96) Pulse Ox 99 Progress Progress Note : Progress Note Seen and evaluated. IV, labs, UA, Hemoccult stool performed. Hemoccult negative and no gross blood noted. Normal saline 1 L bolus ordered. Anticipate CT abdomen and pelvis. Blood sugar grossly elevated. 15 units of insulin IV ordered. LR [address] head and pelvis without contrast due to mild elevation in creatinine ordered. Monitor patient. 2330: Blood cultures and lactic acid done. Rocephin 1 g IV initiated. Patient has blood in her urine but negative on Hemoccult. CT is negative. Patient to be admitted, inpatient status for the uncontrolled hyperglycemia and urinary tract infection. She does have 2 + ketones in the urine but CO2 is 23 so I do not believe she is in DKA currently. Ketones likely related to dehydration. We will treat blood sugars and UTI. Hydrocodone 5/325 one tab by mouth given for pain. She normally is not hydrocodone but is out of that recently. We will use judicious dosing. Patient agrees to plan. Diagnostic Imaging Diagonstic Imaging: CT Plain Films/CT/US/NM/MRI: abdomen, pelvis Comments No acute findings Departure Communication (Admissions) Time/Spoke to Admitting Phy: 23:30 Impression Primary Impression: Urinary tract infection Qualified Codes: N30.01 - Acute cystitis with hematuria Additional Impression: Uncontrolled type 1 diabetes mellitus with hyperglycemia Disposition: ADMITTED INPATIENT Condition: Stable Admissions Decision to Admit Reason: Admit from ER (General) Decision to Admit/Date: April 06, 2019 Time/Decision to Admit Time: 23:36 Departure-Patient Inst. Referrals: AYNI CESAR MD (PCP/Family) Primary Care Physician GERRI GALLAGHER MD April 06, 2019 20:52
[2019-04-06 20:55] LABS: BASOPHILS % (AUTO) 1 % (0-10); EOSINOPHILS # (AUTO) 0.1 10^3/uL (0.0-0.3); EOSINOPHILS % (AUTO) 1 % (0-10); HEMATOCRIT 40 % (35-52); HEMOGLOBIN 12.5 G/DL (11.5-16.0); LYMPHOCYTES # (AUTO) 1.6 X 10^3 (1.0-4.0); LYMPHOCYTES % (AUTO) 20 % (12-44); MEAN CORPUSCULAR HEMOGLOBIN 25 PG (25-34); MEAN CORPUSCULAR HGB CONC 32 G/DL (32-36); MEAN CORPUSCULAR VOLUME 80 FL (80-99); MEAN PLATELET VOLUME 10.3 FL (7.4-10.4); MONOCYTES # (AUTO) 0.6 X 10^3 (0.0-1.0); MONOCYTES % (AUTO) 7 % (0-12); NEUTROPHILS # (AUTO) 5.5 X 10^3 (1.8-7.8); NEUTROPHILS % (AUTO) 71 % (42-75); PLATELET COUNT 483 10^3/uL (130-400); RED CELL DISTRIBUTION WIDTH 17.7 % (10.0-14.5); WHITE BLOOD COUNT 7.7 10^3/uL (4.3-11.0)
[2019-04-06 20:58] LABS: BILIRUBIN,URINE NEGATIVE (NEGATIVE); COLOR,URINE YELLOW; GLUCOSE, URINE (UA) 2+ (NEGATIVE); KETONES,URINE 2+ (NEGATIVE); LEUKOCYTE ESTERASE ,URINE 1+ (NEGATIVE); NITRITE,URINE POSITIVE (NEGATIVE); PH,URINE 6.5 (5-9); PROTEIN,URINE 2+ (NEGATIVE); UROBILINOGEN,URINE NORMAL (NORMAL)
[2019-04-06 21:10] LABS: INR 1.5 (0.8-1.4); PROTHROMBIN TIME PATIENT 18.8 SEC (12.2-14.7)
[2019-04-06 21:14] LABS: ALBUMIN 3.7 GM/DL (3.2-4.5); BILIRUBIN,TOTAL 0.3 MG/DL (0.1-1.0); CALCIUM 8.9 MG/DL (8.5-10.1); CREATININE SERUM 1.31 MG/DL (0.60-1.30); MAGNESIUM 1.8 MG/DL (1.8-2.4); POTASSIUM 4.6 MMOL/L (3.6-5.0); TOTAL PROTEIN 6.8 GM/DL (6.4-8.2)
[2019-04-06 21:16] LABS: CLARITY,URINE SL CLOUDY
[2019-04-06 21:25] LABS: RBC,URINE TNTC /HPF
[2019-04-06 21:26] LABS: BACTERIA,URINE LARGE /HPF
[2019-04-06] MEDS ORDERED: LACTATED RINGERS 1,000 ML IV ONE (21:36)
[2019-04-06] MEDS ORDERED: inSUlin (REGULAR) HUMAN 1 UNIT/0.01 ML (CHARGE PER UNIT) IV STA (21:36)
[2019-04-06] MEDS ORDERED: cefTRIAXone FOR IV USE 1,000 MG in WATER (STERILE) FOR INJECTION 10 ML IV ONE (23:00)
--- NOTE | 2019-04-06 23:03 | NUR ---
Report to Daniela VILLEGAS. care assumed by Cody oMe RN
[2019-04-06] MEDS ORDERED: HYDROcodone/APAP 5 MG/325 MG (LORTAB) TAB PO ONE (23:15)
--- NOTE | 2019-04-07 00:45 | NUR ---
ANNI OLIVARES admitted to room 428-1, with an admitting diagnosis of UTI AND HYPERGLYCEMIA, on 04/06/19 from ED via , accompanied by ED STAFF. ANNI OILVARES introduced to surroundings, call light, bed controls, phone, TV, temperature control, lights, meal times, smoking policy, visitor policy, side rail policy, bathrooms and showers. Patient Rights given to patient in the handbook. ANNI OLIVARES verbalizes understanding that [facility] is not responsible for the loss or damage to any personal effects or valuables that are kept in the patients posession during their hospitalization. Patient Care Plans and duscharge planning were discussed with pt. ANNI OLIVARES verbalizes understanding of Interdisciplinary Patient Education. Patient and/or family were informed about the Rapid Response Team and its purpose.
[2019-04-07] MEDS ORDERED: NS IV 1000 ML 1,000 ML ONE (00:48)
[2019-04-07 01:09] VITALS: BP 150/72
[2019-04-07] MEDS ORDERED: ONDANSETRON 4 MG/2 ML (SDV) Z0FRAN IV PRN (01:15)
[2019-04-07] MEDS ORDERED: HYDROcodone/APAP 5 MG/325 MG (LORTAB) TAB PO PRN (01:15)
[2019-04-07] MEDS: NS IV 1000 ML 1,000 ML IV SCH ×2 (01:18→10:43)
[2019-04-07] MEDS ORDERED: CATHETER FLUSH 10 ML SYR IV PRN (01:30)
[2019-04-07] MEDS ORDERED: ACETAMINOPHEN 325 MG TABLET PO PRN (01:30)
[2019-04-07 04:03] VITALS: BP 108/54
[2019-04-07] MEDS: inSUlin ASPART (NovoLOG) 1 UNIT/0.01 ML (CHARGE PER UNIT) SC SCH ×2 (05:39→09:18)
[2019-04-07] MEDS ORDERED: CATHETER FLUSH 10 ML SYR IV SCH (06:00)
[2019-04-07 06:44] LABS: BASOPHILS % (AUTO) 1 % (0-10); EOSINOPHILS # (AUTO) 0.1 10^3/uL (0.0-0.3); EOSINOPHILS % (AUTO) 2 % (0-10); HEMATOCRIT 35 % (35-52); HEMOGLOBIN 10.9 G/DL (11.5-16.0); LYMPHOCYTES % (AUTO) 30 % (12-44); MEAN CORPUSCULAR HEMOGLOBIN 25 PG (25-34); MEAN CORPUSCULAR HGB CONC 31 G/DL (32-36); MEAN CORPUSCULAR VOLUME 79 FL (80-99); MEAN PLATELET VOLUME 10.2 FL (7.4-10.4); MONOCYTES # (AUTO) 0.6 X 10^3 (0.0-1.0); MONOCYTES % (AUTO) 9 % (0-12); NEUTROPHILS # (AUTO) 3.8 X 10^3 (1.8-7.8); NEUTROPHILS % (AUTO) 58 % (42-75); PLATELET COUNT 416 10^3/uL (130-400); RED CELL DISTRIBUTION WIDTH 17.6 % (10.0-14.5); WHITE BLOOD COUNT 6.5 10^3/uL (4.3-11.0)
[2019-04-07 07:10] LABS: ALANINE AMINOTRANSFERASE 19 U/L (0-55); ALKALINE PHOSPHATASE 93 U/L (40-136); BILIRUBIN,TOTAL 0.2 MG/DL (0.1-1.0); BUN/CREATININE RATIO 17; CALCIUM 8.2 MG/DL (8.5-10.1); CARBON DIOXIDE 20 MMOL/L (21-32); CHLORIDE 102 MMOL/L (98-107); CREATININE SERUM 0.82 MG/DL (0.60-1.30); GFR ESTIMATED > 60; POTASSIUM 4.3 MMOL/L (3.6-5.0); SODIUM 130 MMOL/L (135-145); TOTAL PROTEIN 5.4 GM/DL (6.4-8.2)
--- NOTE | 2019-04-07 07:22 | Diagnostic Imaging Report ---
PROCEDURE: CT abdomen and pelvis without contrast. TECHNIQUE: Multiple contiguous axial images were obtained through the abdomen and pelvis without the use of intravenous contrast. Auto Exposure Controls were utilized during the CT exam to meet ALARA standards for radiation dose reduction. INDICATION: Blood in stool. FINDINGS: The previous CTA chest, abdomen and pelvis of 08/08/2018 noted that the uterus was enlarged measuring 9.2 x 11.1 cm. On this study, the uterus measures even larger and now estimated to be 10.6 x 12.7 cm. The suspected fibroid associated with the uterus seen previously is not as well-visualized on this study due to the absence of intravenous contrast. The uterus does lie to the left of midline and extends into the left lower quadrant. The bladder is distended by urine. There is no obvious bladder abnormality evident. There is no pelvic mass or free fluid collection noted. The appendix was not well-visualized but there are no indirect signs of acute appendicitis. The occlusion of the left superficial femoral artery and common femoral artery seen on the prior exam is difficult to appreciate on this study due to the absence of intravenous contrast. There is a 2.7 cm defect in the anterior abdominal wall just to the left of midline at the level of the umbilicus. A portion of the mesenteric fat has herniated through this defect but there is no incarceration or obstruction of the bowel. This finding is unchanged when compared to the prior study. The liver is prominent but stable in size when compared to the prior exam. There is no focal mass involving the liver and the biliary tree does not seem to be significantly dilated. The gallbladder is surgically absent. The previous study did show infarcts of the spleen and the left kidney. On this study, there is no infarct of either the left kidney or the spleen. This exam is limited in the evaluation of infarcts, however, due to the absence of intravenous contrast. The adrenals and kidneys and the aorta and inferior vena cava show no sign of an acute abnormality. The right renal pelvis is prominent but stable when compared to the prior exam. The stomach is filled with particulate matter and consequently difficult to assess. The lung bases are clear. There is a 4 MM benign-appearing nodule along the periphery of the right lower lobe (image 3 of 94). This finding seems stable when compared to the previous CTA chest exam of 08/08/18. The bone windows show no sign of a fracture or of a destructive lesion. There is severe degenerative disc and bony disease at L3-L4 and there does appear to be trefoil stenosis at this level. IMPRESSION: 1. There is no evidence for an acute abnormality of the abdomen or pelvis. 2. If there is clinical concern regarding recurrent splenic or left renal infarcts, then a followup exam with intravenous contrast would be recommended. 3. The uterus is enlarged and has increased in size since the prior study. The suspected large fibroid associate the uterus seen the prior study is difficult to visualize on this exam however. If further evaluation of the uterus is desired, then ultrasound should be performed. Dictated by: Dictated on workstation # [id number]
[2019-04-07 07:24] LABS: GLUCOSE 567 MG/DL (70-105)
--- NOTE | 2019-04-07 07:29 | NUR ---
FSBS 567 this morning - gave highest dose on the scale
[2019-04-07 08:00] VITALS: BP 121/57
--- NOTE | 2019-04-07 10:53 | History & Physical-Hospitalist ---
History of Present Illness Date Seen 04/07/19 Time Seen by a Provider: 11:00 Attending Physician Roberta Jones DO PCP Dave Lorenzana MD Referring Physician Date of Admission April 06, 2019 at 23:25 Home Medications & Allergies Home Medications Reviewed patient Home Medication Reconciliation performed by pharmacy medication reconciliations prior authorization technician and/or nursing. Patients Allergies have been reviewed. Allergies Allergies Coded Allergies Penicillins (Verified Allergy, Unknown, 04/06/19) Past Ztovxws-Evghnz-Jcemkq Hx Past Med/Social Hx: Reviewed Nursing Past Med/Soc Hx Patient Social History Alcohol Use: Denies Use Recreational Drug Use: No Drug of Choice: Meth and benzo's Smoking Status: Current Everyday Smoker Former Smoker, Quit: Aug 07, 2016 Type Used: Cigarettes 2nd Hand Smoke Exposure: Yes Recent Foreign Travel: No Contact w/other who traveled: No Recent Hopitalizations: Yes Recent Infectious Disease Expo: No Immunizations Up To Date Tetanus Booster (TDap): Less than 5yrs Pediatric: No Date of Pneumonia Vaccine: Jun 12, 2008 Date of Influenza Vaccine: Sep 08, 2018 Seasonal Allergies Seasonal Allergies: No Past Medical History Surgeries: Amputation, Appendectomy, Section, Gallbladder, Hysterectomy, Oophorectomy, Orthopedic, Tubal Ligation, Vascular Surgery Cardiac: Deep Vein Thrombosis, Peripheral Vascular Neurological: Concussion, Headaches /Migraines, Neuropathy, Seizure Disorder, Traumatic Brain Injury 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: No Sexually Transmitted Disease: No HIV/AIDS: No 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 Disorders: Denies Hysterectomy, Menopausal Genitourinary: Bladder Infection, Kidney Stones, Renal Failure, UTI-Chronic Gastrointestinal: Gastroesophageal Reflux Musculoskeletal: Degenerate Disk Disease, Arthritis, Back Injury, Chronic Back Pain, Fractures Endocrine: Diabetes, Insulin dep, Hypothyroidsim Psychosocial: Pseudo Seizures, Sleep Difficulties, Anxiety, Bipolar, Schizophrenia, Depression History of Blood Disorders: Yes (iron deficiency anemia) Adverse Reaction to Blood Malave: No Family History Reviewed Nursing Family Hx Diabetes mellitus 19 FATHER 19 MOTHER G8 BROTHER G8 SISTER Myocardial infarction 19 MOTHER Heart Disease, Diabetes Physical Exam Physical Exam Vital Signs Vital Signs - First Documented 04/06/19 04/07/19 20:25 01:09 Temp 98.0 Pulse 88 Resp 16 B/P (MAP) 140/75 (96) Pulse Ox 99 O2 Delivery Room Air Capillary Refill : Less Than 3 Seconds Height, Weight, BMI Height: 5'11.00" Weight: 166lbs. 0.0oz. 75.642654ux; 23.2 BMI Method:Estimated Results Results/Procedures Labs Laboratory Tests 04/06/19 20:43 04/07/19 05:57 Patient resulted labs reviewed. Clinical Quality Measures DVT/VTE Risk/Contraindication: Risk Factor Score Per Nursin RFS Level Per Nursing on Admit: 4+=Very High RBOERTA JONES DO April 07, 2019 10:53
--- NOTE | 2019-04-07 11:52 | Short Stay Summary-Hospitalist ---
History of Present Illness HPI/Chief Complaint CC: UTI with hyperglycemia HPI: This is a 49-year-old white female clinic patient of [facility] who has a history of diabetes and a previous left below the knee amputation who presented to the ER with abdominal pain and blood in the stools. Patient was assessed to have UTI and severe hyperglycemia placed on insulin with rapidly much improved blood sugars. She is ready to go and asking for discharge so I review medication list sent in Omnicef to [facility] at her request. She will have close follow-up this week. Source: patient Exam Limitations: no limitations Date Seen 04/07/19 Time Seen by a Provider: 11:15 Attending Physician Roberta Jones DO PCP Dave Lorenzana MD Referring Physician Date of Admission April 06, 2019 at 23:25 Home Medications & Allergies Home Medications Reviewed patient Home Medication Reconciliation performed by pharmacy medication reconciliations instrument repair technician and/or nursing. Patients Allergies have been reviewed. Allergies Allergies Coded Allergies Penicillins (Verified Allergy, Unknown, 04/06/19) Past Yezkcad-Tcmghh-Piuuaq Hx Past Med/Social Hx: Reviewed Nursing Past Med/Soc Hx, Reviewed and Corrections made Patient Social History Marrital Status: single Employed/Student: unemployed Alcohol Use: Denies Use Recreational Drug Use: No Drug of Choice: Meth and benzo's Smoking Status: Current Everyday Smoker Former Smoker, Quit: Aug 07, 2016 Type Used: Cigarettes 2nd Hand Smoke Exposure: Yes Recent Foreign Travel: No Contact w/other who traveled: No Recent Hopitalizations: Yes Recent Infectious Disease Expo: No Immunizations Up To Date Tetanus Booster (TDap): Less than 5yrs Pediatric: No Date of Pneumonia Vaccine: Jun 12, 2008 Date of Influenza Vaccine: Sep 08, 2018 Seasonal Allergies Seasonal Allergies: No Past Medical History Surgeries: Amputation, Appendectomy, Section, Gallbladder, Hysterectomy, Oophorectomy, Orthopedic, Tubal Ligation, Vascular Surgery Cardiac: Deep Vein Thrombosis, Peripheral Vascular Neurological: Concussion, Headaches /Migraines, Neuropathy, Seizure Disorder, Traumatic Brain Injury 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: No Sexually Transmitted Disease: No HIV/AIDS: No 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 Disorders: Denies Hysterectomy, Menopausal Genitourinary: Bladder Infection, Kidney Stones, Renal Failure, UTI-Chronic Gastrointestinal: Gastroesophageal Reflux Musculoskeletal: Degenerate Disk Disease, Arthritis, Back Injury, Chronic Back Pain, Fractures Endocrine: Diabetes, Insulin dep, Hypothyroidsim Psychosocial: Pseudo Seizures, Sleep Difficulties, Anxiety, Bipolar, Schizophrenia, Depression History of Blood Disorders: Yes (iron deficiency anemia) Adverse Reaction to Blood Malave: No Family History Reviewed Nursing Family Hx Diabetes mellitus 19 FATHER 19 MOTHER G8 BROTHER G8 SISTER Myocardial infarction 19 MOTHER Heart Disease, Diabetes Review of Systems Constitutional: see HPI, malaise, weakness EENTM: no symptoms reported Respiratory: no symptoms reported Cardiovascular: no symptoms reported Gastrointestinal: abdominal pain Genitourinary: no symptoms reported Musculoskeletal: no symptoms reported Psychiatric/Neurological: No Symptoms Reported All Other Systems Reviewed Negative Unless Noted: Yes Physical Exam Physical Exam Vital Signs Vital Signs - First Documented 04/06/19 04/07/19 20:25 01:09 Temp 98.0 Pulse 88 Resp 16 B/P (MAP) 140/75 (96) Pulse Ox 99 O2 Delivery Room Air Capillary Refill : Less Than 3 Seconds Height, Weight, BMI Height: 5'11.00" Weight: 166lbs. 0.0oz. 75.443482pz; 23.2 BMI Method:Estimated General Appearance: No Apparent Distress, WD/WN, Chronically ill Eyes: Bilateral Eye Normal Inspection, Bilateral Eye PERRL HEENT: PERRL/EOMI, Normal ENT Inspection, Pharynx Normal Neck: Full Range of Motion, Normal Inspection, Non Tender, Supple, Carotid Bruit Respiratory: Chest Non Tender, Lungs Clear, Normal Breath Sounds, No Accessory Muscle Use, No Respiratory Distress Cardiovascular: Regular Rate, Rhythm, No Edema, No Gallop, No JVD, No Murmur, Normal Peripheral Pulses Gastrointestinal: Normal Bowel Sounds, No Organomegaly, No Pulsatile Mass, Non Tender, Soft Back: Normal Inspection, No CVA Tenderness, No Vertebral Tenderness Extremity: Normal Capillary Refill, Normal Inspection, Normal Range of Motion, Non Tender, No Calf Tenderness, No Pedal Edema Neurologic/Psychiatric: Alert, Oriented x3, No Motor/Sensory Deficits, Normal Mood/Affect Skin: Normal Color, Warm/Dry Lymphatic: No Adenopathy Results Results/Procedures Labs Laboratory Tests 04/06/19 20:43 04/07/19 05:57 Patient resulted labs reviewed. Short Stay Diagnosis Discharge Diagnosis-Short Stay Admission Diagnosis Assessment: Abdominal pain UTI Diabetes mellitus [id number] Previous left below the knee amputation Plan: Discharge home at her request Oral antibiotics Resume insulin at home Final Discharge Diagnosis Assessment: Abdominal pain UTI Diabetes mellitus [id number]-jpqfurf Previous left below the knee amputation Plan: Discharge home at her request Oral antibiotics Resume insulin at home Conclusion Plan Plan: DC home Abx PO Diagnosis/Problems Diagnosis/Problems (1) Urinary tract infection Status: Acute Qualifiers: Qualified Codes: N30.01 - Acute cystitis with hematuria (2) Uncontrolled type 1 diabetes mellitus with hyperglycemia Status: Acute Clinical Quality Measures DVT/VTE Risk/Contraindication: Risk Factor Score Per Nursin RFS Level Per Nursing on Admit: 4+=Very High ROBERTA JONES DO April 07, 2019 11:52
[2019-04-07] MEDS ORDERED: CEFD300C3 PO (11:53)
[2019-04-07 13:01] VITALS: BP 121/57
[2019-04-07] MEDS ORDERED: cefTRIAXone 1,000 MG/SWFI 10 ML IV PUSH IV SCH ×2 (21:00)
== END 2019-04-07 13:03 | disposition home or self-care (01) | DRG 638 ==
LOC: EDUNIT# 20:15 → ER 20:16 → 4TH 23:25
PROVIDERS: ADMIT Internal Medicine; ATTEND Internal Medicine
DX: E10.65 Type 1 diabetes mellitus with hyperglycemia (principal); N30.01 Acute cystitis with hematuria; E10.40 Type 1 diabetes mellitus with diabetic neuropathy, unspecified; E86.0 Dehydration; I73.9 Peripheral vascular disease, unspecified; F17.210 Nicotine dependence, cigarettes, uncomplicated; F31.9 Bipolar disorder, unspecified; E03.9 Hypothyroidism, unspecified; K21.9 Gastro-esophageal reflux disease without esophagitis; F41.9 Anxiety disorder, unspecified; F20.9 Schizophrenia, unspecified; D50.9 Iron deficiency anemia, unspecified; Z89.512 Acquired absence of left leg below knee; Z79.01 Long term (current) use of anticoagulants; Z79.4 Long term (current) use of insulin
CPT/HCPCS: 36415; 74176; 80053; 81000; 82962; 83605; 83735; 85025; 85610; 85730; 86141; 86850; 86900; 86901; 87040; 87077; 87088; 87186; 96361; 96374; 96375

== ENCOUNTER 2019-07-17 18:32 | Inpatient (IN) | payer OTHER ==
[~2019-07-17] VITALS: Ht 180.3 cm; Wt 78.0 kg
[~2019-07-17 18:32] MED LIST changes: +CEFD300C3 PO
[2019-07-17] MEDS ORDERED: NS IV 1000 ML 1,000 ML IV SCH (19:13)
--- NOTE | 2019-07-17 19:17 | ED Respiratory ---
General Chief Complaint: Respiratory Problems Stated Complaint: SOB/BILAT LEG PAIN Nursing Triage Note: PT STATES SOB FOR 3 DAYS AND URINATING BLOOD. RT LEG PAIN, HX OF BLOOD CLOTS IN LEGS. Source: patient Exam Limitations: no limitations History of Present Illness Date Seen by Provider: Jul 17, 2019 Time Seen by Provider: 19:08 Initial Comments Patient presents to ER by private conveyance and wheelchair with chief complaint she's having some shortness of breath. No chest pain, fever, cough, wheezing. No history of COPD or asthma. She does smoke about half pack cigarettes per day. She has a history of DVTs and pulmonary embolisms. She's lost her left lower leg below the knee secondary to clots. She's having swelling and pain in her right calf. She is supposed to be on a blood thinner but for the past month has been off of it due to finances. She does have oxygen at home but she's supposed to be on 2 L by nasal cannula. The nurse reports she was about 94% on room air when she arrived safely put her on 2 L by nasal cannula. The patient follows with . the patient follows with Dr. 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 Allergies and Home Medications Allergies Coded Allergies: Penicillins (Verified Allergy, Unknown, 04/06/19) Home Medications Apixaban 5 Mg Tablet, 5 MG PO BID, (Reported) Aspirin 81 Mg Tab.chew, 81 MG PO DAILY, (Reported) Atorvastatin Calcium 80 Mg Tablet, 80 MG PO DAILY, (Reported) Carvedilol 3.125 Mg Tablet, 3.125 MG PO BID Prescribed by: JERLIYN RAMESH on 08/07/18 1225 Cefdinir 300 Mg Capsule, 300 MG PO BID Prescribed by: SAY SANTIAGO on 04/07/19 1153 Ferrous Sulfate 325 Mg Tablet, 325 MG PO DAILY, (Reported) Furosemide 40 Mg Tablet, 40 MG PO DAILY Prescribed by: JERILYN RAMESH on 08/07/18 1225 Insulin Detemir 100 Unit/1 Ml Insuln.pen, 50 UNIT SQ HS Prescribed by: JERILYN RAMESH on 09/07/18 1009 Insulin Lispro 100 Unit/1 Ml Insuln.pen, 10 UNIT SQ AC Prescribed by: JERILYN RAMESH on 09/07/18 1009 Levetiracetam 500 Mg Tablet, 500 MG PO BID Prescribed by: JERILYN RAMESH on 09/08/18 1158 Lisinopril 2.5 Mg Tablet, 2.5 MG PO DAILY Prescribed by: JERILYN RAMESH on 08/07/18 1225 Metformin HCl 500 Mg Tablet, 500 MG PO BID Prescribed by: JERILYN RAMESH on 08/07/18 1225 Multivitamin with Folic Acid 400 Mcg Tablet, 400 MCG PO DAILY, (Reported) Nystatin 1 Each Powder.ea., 1 EACH TOP BID, (Reported) Sennosides/Docusate Sodium 1 Each Tablet, 1 EACH PO DAILY, (Reported) Spironolactone 25 Mg Tablet, 25 MG PO DAILY, (Reported) Vits A and D/White Pet/Lanolin 42.5 Gm Oint...g., 42.5 GM TP PRN, (Reported) Patient Home Medication List Home Medication List Reviewed: Yes Review of Systems Review of Systems Constitutional: No chills, No fever, No malaise EENTM: No ear discharge, No hearing loss, No ear pain Respiratory: No cough, No short of breath Cardiovascular: No chest pain, No edema Gastrointestinal: No abdominal pain, No constipation, No diarrhea, No nausea Genitourinary: No discharge, No dysuria Musculoskeletal: see HPI (right leg pain); No back pain, No joint pain Skin: No pruritus, No rash Past Xnpvhve-Cxfgqu-Tydpwj Hx Patient Social History Alcohol Use: Denies Use Recreational Drug Use: Yes (HX OF, CLEAN 2 YRS 06/2019) Drug of Choice: Meth and benzo's Type Used: Cigarettes Former Smoker, Quit: Aug 07, 2016 2nd Hand Smoke Exposure: Yes Recent Foreign Travel: No Contact w/Someone Who Travel: No Recent Infectious Disease Expo: No Recent Hopitalizations: Yes (2019) Physical Abuse: No Sexual Abuse: No Mistreated: No Fear: No Immunizations Up To Date Tetanus Booster (TDap): Less than 5yrs PED Vaccines UTD: No Date of Pneumonia Vaccine: Jun 12, 2008 Date of Influenza Vaccine: Sep 08, 2018 Seasonal Allergies Seasonal Allergies: No Past Medical History Surgeries: Yes Amputation, Appendectomy, Section, Gallbladder, Hysterectomy, Oophorectomy, Orthopedic, Tubal Ligation, Vascular Surgery Respiratory: Yes Pneumonia, COPD 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; 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) Deep Vein Thrombosis, Peripheral Vascular Neurological: Yes (PSEUDOSEIZURES) Concussion, Headaches /Migraines, Neuropathy, Seizure Disorder, Traumatic Brain Injury 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 Disorders: No 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, 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 Sexually Transmitted Disease: No HIV/AIDS: No Genitourinary: Yes Bladder Infection, Kidney Stones, Renal Failure, UTI-Chronic Gastrointestinal: Yes Gastroesophageal Reflux Musculoskeletal: Yes (L2 COMPRESSION FX 10/17/17) Degenerate Disk Disease, Arthritis, Back Injury, Chronic Back Pain, Fractures Endocrine: Yes (NON-COMPLIANCE; DKA) Diabetes, Insulin dep, Hypothyroidsim HEENT: No Cancer: No Psychosocial: Yes (POLYSUBSTANCE ABUSE) Pseudo Seizures, Sleep Difficulties, Anxiety, Bipolar, Schizophrenia, Depression Integumentary: Yes (MRSA ABSCESSES) Blood Disorders: Yes (iron deficiency anemia) Adverse Reaction/Blood Tranf: No Family Medical History Diabetes mellitus 19 FATHER 19 MOTHER G8 BROTHER G8 SISTER Myocardial infarction 19 MOTHER Heart Disease, Diabetes Physical Exam Vital Signs - First Documented 07/17/19 18:45 Temp 98.7 Pulse 95 Resp 22 B/P (MAP) 129/82 (98) Pulse Ox 96 O2 Delivery Nasal Cannula O2 Flow Rate 2.00 Capillary Refill : Less Than 3 Seconds Height: 5'11.00" Weight: 166lbs. 0.0oz. 75.355696hr; 23.2 BMI Method:Estimated General Appearance: WD/WN, mild distress Eyes: Bilateral Eye Normal Inspection, Bilateral Eye PERRL, Bilateral Eye EOMI HEENT: PERRL/EOMI, normal ENT inspection Neck: full range of motion, normal inspection Respiratory: lungs clear, normal breath sounds, respiratory distress (mild) Cardiovascular: normal peripheral pulses, regular rate, rhythm Gastrointestinal: normal bowel sounds, non tender, soft Extremities: normal inspection, no pedal edema, normal capillary refill Neurologic/Psychiatric: alert, normal mood/affect, oriented x 3 Skin: normal color, warm/dry Progress/Results/Core Measures Suspected Sepsis Recent Fever Within 48 Hours: No Infection Criteria Present: None New/Unexplained Altered Menta: No Sepsis Screen: No Definite Risk SIRS Temperature:98.7 Pulse: 95 Respiratory Rate: 22 Laboratory Tests 07/17/19 18:55: White Blood Count 6.7 Blood Pressure 129 /82 Mean: 98 Laboratory Tests 07/17/19 18:55: Creatinine 1.26, INR Comment 1.0, Platelet Count 455H, Total Bilirubin 0.4 Results/Orders Lab Results Laboratory Tests Test 07/17/19 18:55 07/17/19 20:40 07/17/19 20:59 Range/Units White Blood Count 6.7 4.3-11.0 10^3/uL Red Blood Count 4.76 4.35-5.85 10^6/uL Hemoglobin 12.3 11.5-16.0 G/DL Hematocrit 39 35-52 % Mean Corpuscular Volume 81 80-99 FL Mean Corpuscular Hemoglobin 26 25-34 PG Mean Corpuscular Hemoglobin Concent 32 32-36 G/DL Red Cell Distribution Width 15.7 H 10.0-14.5 % Platelet Count 455 H 130-400 10^3/uL Mean Platelet Volume 10.7 H 7.4-10.4 FL Neutrophils (%) (Auto) 76 H 42-75 % Lymphocytes (%) (Auto) 17 12-44 % Monocytes (%) (Auto) 7 0-12 % Eosinophils (%) (Auto) 1 0-10 % Basophils (%) (Auto) 0 0-10 % Neutrophils # (Auto) 5.1 1.8-7.8 X 10^3 Lymphocytes # (Auto) 1.1 1.0-4.0 X 10^3 Monocytes # (Auto) 0.5 0.0-1.0 X 10^3 Eosinophils # (Auto) 0.0 0.0-0.3 10^3/uL Basophils # (Auto) 0.0 0.0-0.1 10^3/uL Prothrombin Time 13.1 12.2-14.7 SEC INR Comment 1.0 0.8-1.4 Activated Partial Thromboplast Time 26 24-35 SEC Sodium Level 130 L 135-145 MMOL/L Potassium Level 4.7 3.6-5.0 MMOL/L Chloride Level 96 L 98-107 MMOL/L Carbon Dioxide Level 24 21-32 MMOL/L Anion Gap 10 5-14 MMOL/L Blood Urea Nitrogen 12 7-18 MG/DL Creatinine 1.26 0.60-1.30 MG/DL Estimat Glomerular Filtration Rate 45 BUN/Creatinine Ratio 10 Glucose Level 683 *H 70-105 MG/DL Calcium Level 8.8 8.5-10.1 MG/DL Corrected Calcium 9.4 8.5-10.1 MG/DL Total Bilirubin 0.4 0.1-1.0 MG/DL Aspartate Amino Transf (AST/SGOT) 28 5-34 U/L Alanine Aminotransferase (ALT/SGPT) 62 H 0-55 U/L Alkaline Phosphatase 364 H 40-136 U/L C-Reactive Protein High Sensitivity 0.81 H 0.00-0.50 MG/DL B-Type Natriuretic Peptide 3055.7 H <100.0 PG/ML Total Protein 6.3 L 6.4-8.2 GM/DL Albumin 3.2 3.2-4.5 GM/DL Blood Gas Puncture Site RIGHT RADIAL Blood Gas Patient Temperature 98.6 Arterial Blood pH 7.41 7.37-7.43 Arterial Blood Partial Pressure CO2 41 35-45 MMHG Arterial Blood Partial Pressure O2 67 L 79-93 MMHG Arterial Blood HCO3 25 23-27 MMOL/L Arterial Blood Total CO2 26.6 21.0-31.0 MMOL/L Arterial Blood Oxygen Saturation 94 94-100 % Arterial Blood Base Excess 1.2 -2.5-2.5 MMOL/L Garcia Test POSITIVE Blood Gas Ventilator Setting NO Blood Gas Inspired Oxygen N Glucometer 475 *H 70-110 MG/DL My Orders Orders - ALEYDA LOPEZ Chest Pa/Lat (2 View) (07/17/19 19:13) Ekg Tracing (07/17/19 19:13) Continuous Ekg Monitoring (07/17/19 19:13) Cbc With Automated Diff (07/17/19 19:13) Comprehensive Metabolic Panel (07/17/19 19:13) Hs C Reactive Protein (07/17/19 19:13) Protime With Inr (07/17/19 19:13) Partial Thromboplastin Time (07/17/19 19:13) Ct Angio Chest W (07/17/19 19:13) O2 (07/17/19 19:13) Ed Iv/Invasive Line Start (07/17/19 19:13) Ns Iv 1000 Ml (Sodium Chloride 0.9%) (07/17/19 19:13) Iohexol Injection (Omnipaque 350 Mg/Ml 1 (07/17/19 19:30) Received Contrast (Hold Metformin- Contr (07/17/19 19:30) Ns (Ivpb) (Sodium Chloride 0.9% Ivpb Bag (07/17/19 19:30) Insulin (Regular) Human (Humulin R (Per (07/17/19 20:00) Arterial Blood Gas (07/17/19 20:43) BNP (07/17/19 21:05) Ua Culture If Indicated (07/17/19 22:06) Furosemide Injection (Lasix Injection) (07/17/19 22:30) Medications Given in ED Current Medications Medications Dose Ordered Sig/Vaughn Route Start Time Stop Time Status Last Admin Dose Admin Furosemide 40 mg ONCE ONCE IVP 07/17/19 22:30 07/17/19 22:31 DC 07/17/19 22:42 40 MG Insulin Human Regular 10 unit ONCE ONCE SC 07/17/19 20:00 07/17/19 20:01 DC 07/17/19 20:20 10 UNIT Vital Signs/I&O 07/17/19 18:45 Temp 98.7 Pulse 95 Resp 22 B/P (MAP) 129/82 (98) Pulse Ox 96 O2 Delivery Nasal Cannula O2 Flow Rate 2.00 07/18/19 00:00 Intake Total 1000 ml Balance 1000 ml Capillary Refill : Less Than 3 Seconds Blood Pressure Mean: 98 Progress Note : Time: 21:06 Progress Note 10 units of insulin did bring her blood sugar down to the 400 level. There is fluids. She is hyponatremic and has some elevated liver enzymes which is probably chronic. We will order a BNP as she has some fluid on her chest x-ray. Doesn't have a significant elevation of CRP or white count however and no cough. ECG Initial ECG Impression Date: Jul 17, 2019 Initial ECG Impression Time: 19:23 Initial ECG Rate: 92 Initial ECG Rhythm: Normal Sinus Initial ECG Intervals: QT (520) Initial ECG Impression: Normal, Nonspecific Changes Initial ECG Comparisson: Unchanged Comment Left bundle branch block. No clinically significant ST elevation or depression. Diagnostic Imaging Diagonstic Imaging: Xray Plain Films/CT/US/NM/MRI: chest Comments NAME: ANNI OLIVARES Cj MED REC#: [id number] PT STATUS: REG ER : 1970 PHYSICIAN: ALEYDA LOPEZ MD ADMIT DATE: 07/17/19/ER Signed Date of Exam:07/17/19 CHEST PA/LAT (2 VIEW) INDICATION: Shortness of breath, chest pain COMPARISON: 09/07/18 FINDINGS: Frontal and lateral views of the chest demonstrate cardiac enlargement with bilateral interstitial infiltrates likely a degree of CHF. There are small effusions with dependent atelectasis. There is no pneumothorax. Osseous structures stable. IMPRESSION: CHF versus pneumonia. Followup recommended. Dictated by: Dictated on workstation # [id number] Dict: 07/17/191950 Trans: 07/17/192020 [facility] [id number] Interpreted by: NITHYA OCHOA Electronically signed by: NIHTYA OCHOA 07/17/192020 Reviewed: Reviewed by Tn Diagonstic Imaging: CT (angiogram) Plain Films/CT/US/NM/MRI: chest Comments NAME: ANNI OLIVARES MED REC#: [id number] PHYSICIAN: ALEYDA LOPEZ MD CC: NITHYA OCHOA; ALEYDA LOPEZ Page 2 of 2 RADIOLOGY REPORT [facility] [place], [place] CC: NITHYA OCHOA; ALEYDA LOPEZ Page 1 of 1 RADIOLOGY REPORT NAME: ANNI OLIVARES MED REC#: [id number] PT STATUS: REG ER : 1970 PHYSICIAN: ALEYDA LOPEZ MD ADMIT DATE: 07/17/19/ER Signed Date of Exam: 07/17/19 CT ANGIO CHEST W PROCEDURE: CT angiography of the chest with contrast. TECHNIQUE: Multiple contiguous axial images were obtained through the chest after uneventful bolus administration of intravenous contrast. 3D reconstructed CTA MIP acquisitions were also performed. Auto Exposure Controls were utilized during the CT exam to meet ALARA standards for radiation dose reduction. INDICATION: Shortness of breath, lower extremity pain. COMPARISON: CT abdomen and pelvis 04/06/2019 CT CHEST: The heart is mildly enlarged with central vascular congestion and mild pulmonary edema. Pulmonary arteries and aorta are grossly normal. There was no pericardial effusion. Large bilateral pleural effusions are seen. There is dependent atelectasis. There is no pneumothorax. Osseous structures are unremarkable. Body wall edema is present. The visualized upper abdominal solid organs are unremarkable. IMPRESSION: 1. Cardiac enlargement with large bilateral pleural effusions and findings compatible with CHF. 2. No pulmonary embolism or aortic pathology identified. 3. Not mentioned above: Nodular infiltrate in the right anterior lung base, probably subsegmental atelectasis. Recommend followup to assure resolution. Dictated by: Dictated on workstation # [id number] Dict: 07/17/192007 Trans: 07/17/192020 Interpreted by: NITHYA OCHOA Electronically signed by: NITHYA OCHOA 07/17/192020 Reviewed: Reviewed by Me Departure Communication (Admissions) Time/Spoke to Admitting Phy: 22:26 Discussed case lab imaging findings with Dr. Ramesh she agrees to admit the patient. Time/Spoke to Consulting Phy: 22:00 Discussed case lab EKG findings with Dr. Suarez and he will see the patient in the morning. Plan for echocardiogram in the morning. Lasix 40 mg twice a day IV. Serial troponins. Impression Primary Impression: Acute exacerbation of congestive heart failure Qualified Codes: I50.9 - Heart failure, unspecified Additional Impression: Acute hyperglycemia Disposition: ADMITTED INPATIENT Condition: Stable Admissions Decision to Admit Reason: Admit from ER (General) Decision to Admit/Date: Jul 17, 2019 Time/Decision to Admit Time: 22:06 Departure-Patient Inst. Referrals: YANI CESAR MD (PCP/Family) Primary Care Physician ALEYDA LOPEZ Jul 17, 2019 19:17
[2019-07-17 19:20] LABS: BASOPHILS % (AUTO) 0 % (0-10); EOSINOPHILS % (AUTO) 1 % (0-10); HEMATOCRIT 39 % (35-52); HEMOGLOBIN 12.3 G/DL (11.5-16.0); LYMPHOCYTES # (AUTO) 1.1 X 10^3 (1.0-4.0); LYMPHOCYTES % (AUTO) 17 % (12-44); MEAN CORPUSCULAR HEMOGLOBIN 26 PG (25-34); MEAN CORPUSCULAR HGB CONC 32 G/DL (32-36); MEAN CORPUSCULAR VOLUME 81 FL (80-99); MEAN PLATELET VOLUME 10.7 FL (7.4-10.4); MONOCYTES # (AUTO) 0.5 X 10^3 (0.0-1.0); MONOCYTES % (AUTO) 7 % (0-12); NEUTROPHILS # (AUTO) 5.1 X 10^3 (1.8-7.8); NEUTROPHILS % (AUTO) 76 % (42-75); PLATELET COUNT 455 10^3/uL (130-400); RED CELL DISTRIBUTION WIDTH 15.7 % (10.0-14.5); WHITE BLOOD COUNT 6.7 10^3/uL (4.3-11.0)
[2019-07-17 19:27] LABS: PROTHROMBIN TIME PATIENT 13.1 SEC (12.2-14.7)
[2019-07-17] MEDS ORDERED: HOLD METFORMIN - RECEIVED CONTRAST 20 ML VIAL IV SCH (19:30)
[2019-07-17] MEDS ORDERED: NS 100 ML (IVPB) BAG IV ONE (19:30)
[2019-07-17] MEDS ORDERED: IOHEXOL 350 MG/ML 100 ML (OMNIPAQUE 350) VIAL IV ONE (19:30)
[2019-07-17 19:37] LABS: ALBUMIN 3.2 GM/DL (3.2-4.5); BILIRUBIN,TOTAL 0.4 MG/DL (0.1-1.0); CALCIUM 8.8 MG/DL (8.5-10.1); CREATININE SERUM 1.26 MG/DL (0.60-1.30); TOTAL PROTEIN 6.3 GM/DL (6.4-8.2)
[2019-07-17 19:44] LABS: POTASSIUM 4.7 MMOL/L (3.6-5.0)
--- NOTE | 2019-07-17 19:55 | Diagnostic Imaging Report ---
INDICATION: Shortness of breath, chest pain COMPARISON: 09/07/18 FINDINGS: Frontal and lateral views of the chest demonstrate cardiac enlargement with bilateral interstitial infiltrates likely a degree of CHF. There are small effusions with dependent atelectasis. There is no pneumothorax. Osseous structures stable. IMPRESSION: CHF versus pneumonia. Followup recommended. Dictated by: Dictated on workstation # [id number]
[2019-07-17] MEDS ORDERED: inSUlin (REGULAR) HUMAN 1 UNIT/0.01 ML (CHARGE PER UNIT) SC ONE (20:00)
--- NOTE | 2019-07-17 20:14 | Diagnostic Imaging Report ---
PROCEDURE: CT angiography of the chest with contrast. TECHNIQUE: Multiple contiguous axial images were obtained through the chest after uneventful bolus administration of intravenous contrast. 3D reconstructed CTA MIP acquisitions were also performed. Auto Exposure Controls were utilized during the CT exam to meet ALARA standards for radiation dose reduction. INDICATION: Shortness of breath, lower extremity pain. COMPARISON: CT abdomen and pelvis 04/06/2019 CT CHEST: The heart is mildly enlarged with central vascular congestion and mild pulmonary edema. Pulmonary arteries and aorta are grossly normal. There was no pericardial effusion. Large bilateral pleural effusions are seen. There is dependent atelectasis. There is no pneumothorax. Osseous structures are unremarkable. Body wall edema is present. The visualized upper abdominal solid organs are unremarkable. IMPRESSION: 1. Cardiac enlargement with large bilateral pleural effusions and findings compatible with CHF. 2. No pulmonary embolism or aortic pathology identified. 3. Not mentioned above: Nodular infiltrate in the right anterior lung base, probably subsegmental atelectasis. Recommend followup to assure resolution. Dictated by: Dictated on workstation # [id number]
[2019-07-17 20:49] LABS: ABG BASE EXCESS 1.2 MMOL/L (-2.5-2.5); ABG OXYGEN SATURATION 94 % (94-100); ABG PCO2 41 MMHG (35-45); ABG PH 7.41 (7.37-7.43); ABG PO2 67 MMHG (79-93); ABG TCO2 26.6 MMOL/L (21.0-31.0); ALLENS TEST POSITIVE; INSPIRED O2 N; PATIENT TEMP 98.6; VENTILATOR NO
[2019-07-17] MEDS ORDERED: FUROSEMIDE 40 MG/4 ML INJ (LASIX) IVP ONE (22:30)
[2019-07-17 23:16] LABS: BILIRUBIN,URINE NEGATIVE (NEGATIVE); COLOR,URINE YELLOW; GLUCOSE, URINE (UA) 4+ (NEGATIVE); KETONES,URINE 1+ (NEGATIVE); LEUKOCYTE ESTERASE ,URINE 3+ (NEGATIVE); NITRITE,URINE NEGATIVE (NEGATIVE); PH,URINE 5 (5-9); PROTEIN,URINE 3+ (NEGATIVE); UROBILINOGEN,URINE NORMAL (NORMAL)
[2019-07-17 23:23] LABS: BACTERIA,URINE LARGE /HPF; CLARITY,URINE SL CLOUDY; WBC,URINE 25-50 /HPF; YEAST,URINE FEW /HPF
--- NOTE | 2019-07-17 23:30 | NUR ---
ANNI OLIVARES admitted to room 432-1, with an admitting diagnosis of CHF excerbation and hyperglycemia, on 07/17/19 from ED via wheelchair, accompanied by warehouse delivery driver, NELLY Liz .ANNI OLIVARES introduced to surroundings, call light, bed controls, phone, TV, temperature control, lights, meal times, smoking policy, visitor policy, side rail policy, bathrooms and showers. Patient Rights given to patient in the handbook. ANNI OLIVARES verbalizes understanding that [facility] is not responsible for the loss or damage to any personal effects or valuables that are kept in the patients posession during their hospitalization.
[2019-07-18] VITALS (7 sets, daily range): BP systolic 119–129; BP diastolic 66–88
[2019-07-18] MEDS: RT-ALBUTEROL/IPRATROPIUM 3 ML (DUONEB) VIAL INH SCH ×4 (03:34→19:52)
[2019-07-18] MEDS: inSUlin ASPART (NovoLOG) 1 UNIT/0.01 ML (CHARGE PER UNIT) SC SCH ×7 (06:02→20:26)
--- NOTE | 2019-07-18 06:11 | NUR ---
pt Blood sugar [address] connor who ordered 20units novolog ssB on top of the standing order of 20units novolog for a total of 40units
[2019-07-18] MEDS: FUROSEMIDE 40 MG/4 ML INJ (LASIX) IV SCH ×2 (06:45→16:26)
[2019-07-18 07:38] LABS: BASOPHILS % (AUTO) 1 % (0-10); EOSINOPHILS # (AUTO) 0.1 10^3/uL (0.0-0.3); EOSINOPHILS % (AUTO) 1 % (0-10); HEMATOCRIT 36 % (35-52); HEMOGLOBIN 11.4 G/DL (11.5-16.0); LYMPHOCYTES # (AUTO) 1.5 X 10^3 (1.0-4.0); LYMPHOCYTES % (AUTO) 21 % (12-44); MEAN CORPUSCULAR HEMOGLOBIN 26 PG (25-34); MEAN CORPUSCULAR HGB CONC 31 G/DL (32-36); MEAN CORPUSCULAR VOLUME 82 FL (80-99); MEAN PLATELET VOLUME 10.5 FL (7.4-10.4); MONOCYTES # (AUTO) 0.4 X 10^3 (0.0-1.0); MONOCYTES % (AUTO) 6 % (0-12); NEUTROPHILS # (AUTO) 4.9 X 10^3 (1.8-7.8); NEUTROPHILS % (AUTO) 72 % (42-75); PLATELET COUNT 423 10^3/uL (130-400); RED CELL DISTRIBUTION WIDTH 15.6 % (10.0-14.5); WHITE BLOOD COUNT 6.9 10^3/uL (4.3-11.0)
[2019-07-18 07:56] LABS: ALANINE AMINOTRANSFERASE 52 U/L (0-55); ALBUMIN 2.9 GM/DL (3.2-4.5); ALKALINE PHOSPHATASE 377 U/L (40-136); BILIRUBIN,TOTAL 0.3 MG/DL (0.1-1.0); BUN/CREATININE RATIO 15; CALCIUM 8.4 MG/DL (8.5-10.1); CARBON DIOXIDE 25 MMOL/L (21-32); CHLORIDE 96 MMOL/L (98-107); CREATININE SERUM 1.03 MG/DL (0.60-1.30); GFR ESTIMATED 56; POTASSIUM 4.1 MMOL/L (3.6-5.0); SODIUM 132 MMOL/L (135-145); TOTAL PROTEIN 5.9 GM/DL (6.4-8.2)
--- NOTE | 2019-07-18 08:11 | Consultation-Cardiology ---
HPI-Cardiology Cardiology Consultation: Date of Consultation 07/18/19 Date of Admission Attending Physician Kiki Ortiz MD Admitting Physician [place] Consulting Physician Taras SUAREZ MD HPI: Time Seen by a Provider: 08:30 Chief Complaint: Shortness of breath This is a 49-year-old lady with previous history of PE and DVT. However she is not taking any oral anticoagulation therapy. She is an active smoker. She denies COPD however she takes oxygen at home. She presented with significant shortness of breath. She denied any chest pain, fever, syncope, near-syncope, palpitations. Review of Systems-Cardiology Review of Systems Constitutional: As described under HPI; No As described under HPI, No no symptoms reported, No chills, No fever, No lightheadedness Eyes: No As described under HPI, No no symptoms reported, No blindness, No blurred vision, No contact lenses, No drainage, No decreased acuity, No foreign body sensation, No pain, No vision change Ears/Nose/Throat: No As described under HPI, No no symptoms reported, No chronic hearing loss, No ear discharge, No ear pain, No nasal drainage, No u lcerations Respiratory: No no symptoms reported; As described under HPI; No As described under HPI, No cough; orthopnea; No shortness of breath, No SOB with excertion Cardiovascular: No no symptoms reported; As described under HPI; No As described under HPI, No chest pain, No edema, No irregular heart rate, No lightheadedness, No palpitations Gastrointestinal: No no symptoms reported, No As described under HPI, No abdomen distended, No abdominal pain, No blood streaked bowels, No constipation, No diarrhea, No nausea, No vomiting, No stool coloration changes Genitourinary: No As described under HPI, No burning, No dysuria, No discharge, No frequency, No flank pain, No hematuria, No urgency : Yes : No Skin: No rash, No skin related problems, No ulcerations Psychiatric/Neurological: No anxiety, No depression, No seizure, No focal weakness, No syncope Hematologic: No bleeding abnormalities [id number] Hx Patient Social History Alcohol Use: Denies Use Recreational Drug Use: Yes (HX OF, CLEAN 2 YRS 06/2019) Drug of Choice: Meth and benzo's Type Used: Cigarettes 2nd Hand Smoke Exposure: Yes Recent Foreign Travel: No Recent Infectious Disease Expo: No Immunizations Up To Date Tetanus Booster (TDap): Less than 5yrs Date of Pneumonia Vaccine: Jun 12, 2008 Date of Influenza Vaccine: Sep 08, 2018 Past Medical History PMH As described under Assessment. Family Medical History Family Medical History: She reports her mother passed from an CT in her late 40's. She reports her father had CAD. Family History: Diabetes mellitus 19 FATHER 19 MOTHER G8 BROTHER G8 SISTER Myocardial infarction 19 MOTHER Allergies and Home Medications Allergies Coded Allergies: Penicillins (Verified Allergy, Unknown, 04/06/19) Home Medications Aspirin 81 Mg Tablet.dr, 81 MG PO DAILY, (Reported) Carvedilol 3.125 Mg Tablet, 3.125 MG PO BID, (Reported) Insulin Aspart 300 Units/3 Ml Solution, 12 UNITS SQ TIDAC, (Reported) Insulin Detemir 100 Unit/1 Ml Insuln.pen, 15-20 UNIT SQ HS, (Reported) Lisinopril 2.5 Mg Tablet, 2.5 MG PO DAILY, (Reported) Multivitamin 1 Each Tablet, 1 TAB PO DAILY, (Reported) Patient Home Medication List Home Medication List Reviewed: Yes Physical Exam-Cardiology Physical Exam Vital Signs/I&O 07/18/19 07/18/19 07/18/19 07/18/19 03:34 04:32 07:00 08:00 Temp 98.1 97.0 Pulse 92 92 90 Resp 18 18 B/P (MAP) 122/88 (99) 121/83 (96) Pulse Ox 91 91 97 O2 Delivery Room Air Room Air Room Air 07/18/19 07/18/19 09:57 10:00 Pulse Ox 91 O2 Delivery Room Air Room Air 07/18/19 00:00 Intake Total 1000 ml Balance 1000 ml Capillary Refill : Less Than 3 Seconds Constitutional: appears stated age, AAO x 3, apparent distress, well-developed, well-nourished HEENT: PERRL; No discharge; hearing is well preserved, oral hygience is good; No ulceration, No xanthelasmas are seen Neck: No non-tender, No full range of motion, No supple, No normal inspection, No carotid bruit, No limited range of motion, No lymphadenopathy (R), No lym phadenopathy (L), No tender lateral, No tender midline, No thyromegaly, No other; carotid pulses are 2 + bilaterally; No with good upstrokes Respiratory: accessory muscle use; No respiratory distress, No chest tender, No chest expansion is symmetric; chest is bilaterally symmetric; No lungs clear to percussion; lungs clear to auscultation; No crackles, No rhonchi, No rales, No stridor, No wheezing, No pleural rub, No other Cardiovascular: regular rate-rhythm; No irregularly irregular, No extra beats, No parasternal heave is noted, No JVD, No edema, No bradycardia, No tachycardia, No point of maximal impulse, No cardiac thrills are palpable; S1 and S2; No gallop/S3, No gallop/S4, No diastolic murmur, No systolic murmur, No friction rub, No click, No other Gastrointestinal: No tender, No soft, No round, No distended, No pulsatile mass, No organomegaly, No guarding, No rebound, No tenderness, No hernia, No mass, No audible bowel sounds, No abnormal bowel sounds, No abdominal bruits, No spleenomegaly, No other Rectal: deferred Extremities: No normal range of motion, No non-tender, No normal inspection, No pedal edema, No calf tenderness, No normal capillary refill, No pelvis stable, No calf tenderness, No inflammation, No pedal edema, No slow capillary refill, No swelling, No other, No abrasion, No clubbing, No cyanosis, No ecchymosis, No laceration, No no lower extremity edema bilateral, No significant edema, No tenderness, No wound Neurologic/Psychiatric: no motor/sensory deficits, alert, normal mood/affect, oriented x 3, power is 5/5 both on sides Skin: No normal color, No warm/dry, No cyanosis, No cool, No diaphoresis, No damp, No ecchymosis, No jaundice, No mottled, No pallor, No rash, No tattoos/piercings, No ulcerations, No rash on exposed areas, No ulcerations on exposed areas, No other Data Review Labs Laboratory Tests 07/17/19 18:55: White Blood Count 6.7, Red Blood Count 4.76, Hemoglobin 12.3, Hematocrit 39, Mean Corpuscular Volume 81, Mean Corpuscular Hemoglobin 26, Mean Corpuscular Hemoglobin Concent 32, Red Cell Distribution Width 15.7H, Platelet Count 455H, Mean Platelet Volume 10.7H, Neutrophils (%) (Auto) 76H, Lymphocytes (%) (Auto) 17, Monocytes (%) (Auto) 7, Eosinophils (%) (Auto) 1, Basophils (%) (Auto) 0, Neutrophils # (Auto) 5.1, Lymphocytes # (Auto) 1.1, Monocytes # (Auto) 0.5, Eosinophils # (Auto) 0.0, Basophils # (Auto) 0.0, Prothrombin Time 13.1, INR Comment 1.0, Activated Partial Thromboplast Time 26, Sodium Level 130L, Potassium Level 4.7, Chloride Level 96L, Carbon Dioxide Level 24, Anion Gap 10, Blood Urea Nitrogen 12, Creatinine 1.26, Estimat Glomerular Filtration Rate 45, BUN/Creatinine Ratio 10, Glucose Level 683*H, Calcium Level 8.8, Corrected Calc ium 9.4, Total Bilirubin 0.4, Aspartate Amino Transf (AST/SGOT) 28, Alanine Aminotransferase (ALT/SGPT) 62H, Alkaline Phosphatase 364H, C-Reactive Protein High Sensitivity 0.81H, B-Type Natriuretic Peptide 3055.7H, Total Protein 6.3L, Albumin 3.2 07/17/19 20:40: Blood Gas Puncture Site RIGHT RADIAL, Blood Gas Patient Temperature 98.6, Arterial Blood pH 7.41, Arterial Blood Partial Pressure CO2 41, Arterial Blood Partial Pressure O2 67L, Arterial Blood HCO3 25, Arterial Blood Total CO2 26.6, Arterial Blood Oxygen Saturation 94, Arterial Blood Base Excess 1.2, Garcia Test POSITIVE, Blood Gas Ventilator Setting NO, Blood Gas Inspired Oxygen N 07/17/19 20:59: Glucometer 475*H 07/17/19 22:46: Urine Color YELLOW, Urine Clarity SL CLOUDY, Urine pH 5, Urine Specific [place] 1.020, Urine Protein 3+H, Urine Glucose (UA) 4+H, Urine Ketones 1+H, Urine Nitrite NEGATIVE, Urine Bilirubin NEGATIVE, Urine Urobilinogen NORMAL, Urine Leukocyte Esterase 3+H, Urine RBC (Auto) 5+H, Urine RBC 2-5H, Urine WBC 25-50H, Urine Squamous Epithelial Cells 2-5, Urine Crystals NONE, Urine Bacteria LARGEH, Urine Casts NONE, Urine Mucus NEGATIVE, Urine Yeast FEWH, Urine Culture Indicated YES 07/18/19 01:15: Troponin I < 0.028 07/18/19 01:42: Glucometer 517*H 07/18/19 05:24: Glucometer 562*H 07/18/19 07:30: Troponin I < 0.028, White Blood Count 6.9, Red Blood Count 4.41, Hemoglobin 11.4L, Hematocrit 36, Mean Corpuscular Volume 82, Mean Corpuscular Hemoglobin 26, Mean Corpuscular Hemoglobin Concent 31L, Red Cell Distribution Width 15.6H, Platelet Count 423H, Mean Platelet Volume 10.5H, Neutrophils (%) (Auto) 72, Lymphocytes (%) (Auto) 21, Monocytes (%) (Auto) 6, Eosinophils (%) (Auto) 1, Basophils (%) (Auto) 1, Neutrophils # (Auto) 4.9, Lymphocytes # (Auto) 1.5, Monocytes # (Auto) 0.4, Eosinophils # (Auto) 0.1, Basophils # (Auto) 0.0, Sodium Level 132L, Potassium Level 4.1, Chloride Level 96L, Carbon Dioxide Level 25, Anion Gap 11, Blood Urea Nitrogen 15, Creatinine 1.03, Estimat Glomerular Filtration Rate 56, BUN/Creatinine Ratio 15, Glucose Level 496*H, Calcium Level 8.4L, Corrected Calcium 9.3, Total Bilirubin 0.3, Aspartate Amino Transf (AST/SGOT) 42H, Alanine Aminotransferase (ALT/SGPT) 52, Alkaline Phosphatase 377H, Total Protein 5.9L, Albumin 2.9L 07/18/19 11:27: Glucometer 196H ECG Impression ECG Initial ECG Rhythm: Normal Sinus Comment Left bundle branch block A/P-Cardiology Assessment/Admission Diagnosis Acute systolic congestive heart failure, acute respiratory failure, COPD, Active smoking, Diabetes, Hyponatremia, Hypocalcemia, Thrombocytosis, Large pleural effusion Plan Acute systolic congestive heart failure, acute respiratory failure, IV Lasix. Echocardiogram done 07/18/2019 shows an EF of 25-30 percent with dilated cardiomyopathy. Elevated PA pressure. Large left-sided pleural effusion. Patient will require aggressive therapy for cardiomyopathy. This will include coronary angiography when patient is more stable. Sudden cardiac prevention for dilated cardiomyopathy, LifeVest is recommended. COPD, defer to the primary team. Pulmonary hypertension, could be secondary to COPD and cardiomyopathy. Active smoking, smoking cessation was strongly recommended. Diabetes, deferred to the primary team., Hyponatremia, Hypocalcemia, Thrombocytosis, Large pleural effusion, likely due to congestive heart failure. However thoracentesis may be required. Complicated medical and cardiac issues. Thank you for your consultation. Please call me if you have any questions. Hui Suarez MD, FACP, FACC, FSCAI, FHRS, CCDS Interventional Cardiology Cardiac Electrophysiology Vascular Medicine and Endovascular Interventions Clinical Quality Measures DVT/VTE Risk/Contraindication: Risk Factor Score Per Nursin RFS Level Per Nursing on Admit: 4+=Very High Taras SUAREZ MD Jul 18, 2019 08:11
[2019-07-18 08:21] LABS: GLUCOSE 496 MG/DL (70-105)
[2019-07-18] MEDS ORDERED: INSU100I14 SQ (11:26)
[2019-07-18] MEDS ORDERED: LISI2.5T PO (11:26)
[2019-07-18] MEDS ORDERED: ASPI-983 PO (11:26)
[2019-07-18] MEDS ORDERED: MULT1TAB69 PO (11:26)
[2019-07-18] MEDS ORDERED: INSU100I29 SQ (11:26)
[2019-07-18] MEDS ORDERED: CARV3.122 PO (11:26)
--- NOTE | 2019-07-18 11:29 | NUR ---
SPOKE WITH THE PATIENT ABOUT HER MEDICATIONS. SHE STATES SHE HAS NOT BEEN TAKING SEVERAL OF HER MEDICATIONS DUE TO NOT BEING ABLE TO AFFORD THEM. I CALLED [facility] FOR A LIST OF RECENTLY FILLED AND PICKED UP MEDICATIONS. THEY STATE THEY HAVE SEVERAL READY CURRENTLY BUT THEY HAVE NOT BEEN PICKED UP YET. [facility] FILLED: 06-15-19 NOVOLOG FLEXPEN 12 UNITS TID 06-15-19 LEVEMIR FLEXTOUCH 45 UNITS HS (STATES SHE ONLY USES 15-20 UNITS) 06-15-19 LISINOPRIL 2.5MG DAILY 06-15-19 COREG 3.125MG BID SHE TAKES ASPIRIN 81MG DAILY OTC AND A MTV DAILY OTC. THE FOLLOWING MEDICATIONS WERE ON THE MED REC FORM HER PREVIOUS ADMISSION BUT NOT FILLED RECENTLY AND SHE STATES SHE HAS BEEN OUT OF THEM FOR ABOUT A YEAR, I REMOVED THEM AT THIS TIME: METFORMIN 500MG BID (LAST FILLED 08-08-18 - ON HOLD MORE RECENT BUT NOT PICKED UP) KEPPRA 500MG BID (LAST FILLED 09-08-18) LASIX ELIQUIS 5 BID (JUL, NOT PICKED UP) SPIRONOLACTONE IRON
--- NOTE | 2019-07-18 11:47 | Physical Therapy Evaluation ---
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 Referral Physician: Kiki Ortiz MD Reason for Referral: Evaluation/Treatment Medical History Additional Medical History Past Medical History Surgeries: Yes Amputation, Appendectomy, Section, Gallbladder, Hysterectomy, Oophorectomy, Orthopedic, Tubal Ligation, Vascular Surgery Respiratory: Yes Pneumonia, COPD 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; 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) Deep Vein Thrombosis, Peripheral Vascular Neurological: Yes (PSEUDOSEIZURES) Concussion, Headaches /Migraines, Neuropathy, Seizure Disorder, Traumatic Brain Injury 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 Disorders: No 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 Disorders: Denies 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, 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 Sexually Transmitted Disease: No HIV/AIDS: No Genitourinary: Yes Bladder Infection, Kidney Stones, Renal Failure, UTI-Chronic Gastrointestinal: Yes Gastroesophageal Reflux Musculoskeletal: Yes (L2 COMPRESSION FX 10/17/17) Degenerate Disk Disease, Arthritis, Back Injury, Chronic Back Pain, Fractures Endocrine: Yes (NON-COMPLIANCE; DKA) Diabetes, Insulin dep, Hypothyroidsim HEENT: No Cancer: No Psychosocial: Yes (POLYSUBSTANCE ABUSE) Pseudo Seizures, Sleep Difficulties, Anxiety, Bipolar, Schizophrenia, Depression Integumentary: Yes (MRSA ABSCESSES) Blood Disorders: Yes (iron deficiency anemia) Adverse Reaction/Blood Tranf: No Social History Home: Single Level Current Living Status: Spouse Entry Into Home: Stairs Without Railing Prior/Core FIM Prior Level of Function Therapy Code Descriptions/Definitions Functional [place] Measure: 0=Not Assessed/NA 4=Minimal Assistance 1=Total Assistance 5=Supervision or Setup 2=Maximal Assistance 6=Modified [place] 3=Moderate Assistance 7=Complete [place] Therapy Quality Codes: 6 Independent with activity with or without an assistive device 5 Patient requires set up or clean up by helper. Patient completes activity by themselves 4 Supervision or touching assist (CGA). [place] provide cues , steadying assist 3 The helper provides less than half the effort to complete the activity 2 The helper provides more than half the effort to complete the activity 1 Dependent. The helper does all the effort to complete an activity 7 Patient refused to complete or attempt activity 9 The patient did not perform the activity before the current illness or injury 88 Not attempted due to Medical conditions or safety concerns Functional Abilities and Goals: Independent: Patient completed the activities by him/herself, with or without an assistive device, with no assistance from a helper. Needed Some Help: Patient needed partial assistance from another person to complete activities. Dependent: A helper completed the activities for the patient. Unknown: Not Applicable: Bed Mobility: 6 Patient states her or other family performs stand pivot transfers with her at home and her drags her wheelchair up and down the stairs to enter the home. PT Evaluation-Current Subjective Patient in bed pre tx, agrees to PT but states that she is not going to try to stand because she can't do it and won't try it. Patient states she has 10/10 pain in both legs. Patient has had a BKA on the left side. Pt/Family Goals improve strength Objective Patient Orientation: Person, Place, Situation ROM/Strength ROM Lower Extremities WNL Strength Lower Extremities RLE (hip flexion 3-/5, knee flexion 3/5, knee extension 3/5, dorsiflexion 0/5), LLE (hip flexion 3-/5, knee flexion 3/5, knee extension 3/5), right foot drop Sensory Vision: Functional Hearing: Functional Sensation Right Lower Extremit: Impaired Sensation Left Lower Extremity: Impaired Sensation Lower Extremities Patient has decreased light touch sensation on the end of her residual limb on the left side and in her foot on the right side. Transfers Therapy Code Descriptions/Definitions Functional [place] Measure: 0=Not Assessed/NA 4=Minimal Assistance 1=Total Assistance 5=Supervision or Setup 2=Maximal Assistance 6=Modified [place] 3=Moderate Assistance 7=Complete [place] Scootin Rollin Supine to/from Sit: 6 Patient performs bed mobility and supine <-> sit with mod I, not willing to stand or perform a transfer Treatment supine BLE exercises x10 (QS, GS, HS, hip abd, SLR) Assessment/Needs Patient has impaired mobility, strength, endurance. Her family assists her with transfers normally and her potential to do this in the future seems poor especially with her motivation level. Rehab Potential: Guarded PT Short Term Goals Short Term Goals Time Frame: Jul 25, 2019 Transfers (B,C,W/C) (FIM): 2 (stand pivot) PT Plan Problem List Problem List: Activity Tolerance, Functional Strength, Safety, Balance, Gait, Transfer, Bed Mobility, ROM Treatment/Plan Treatment Plan: Continue Plan of Care Treatment Plan: Bed Mobility, Concurrent Therapy, Education, Functional Activity Divya, Functional Strength, Gait, Safety, Therapeutic Exercise, Transfers Treatment Duration: Jul 25, 2019 Frequency: 6 times per week Estimated Hrs Per Day: .25 hour per day Patient and/or Family Agrees t: Yes Safety Risks/Education Patient Education: Correct Positioning, Safety Issues Teaching Recipient: Patient Teaching Methods: Demonstration, Discussion Response to Teaching: Reinforcement Needed Discharge Recommendations Plan Patient will perform bed mobility and transfer training, balance and endurance training, functional strengthening, wheelchair mobility training, and education, to improve functional mobility and independence at home. Therapy D/C Recommendations: Home w/ Family Support, Usp (TCU/NH) Time/GCodes Time In: 1124 Time Out: 1137 Total Billed Treatment Time: 13 Total Billed Treatment 1 visit AGUILA TOVAR PT Jul 18, 2019 11:47
--- NOTE | 2019-07-18 11:55 | Diagnostic Imaging Report ---
Indication: CHF exacerbation. Time of exam 11:10 AM Correlation is made with prior chest from 07/17/2019. The heart remains enlarged. There continues to be some mild central congestion with bibasilar infiltrates and small effusions. Overall appearance is similar to yesterday's exam. Mid and upper lung gordon are clear. There is no pneumothorax. Impression: Continued central congestion with bibasilar infiltrates and small effusions, perhaps on the basis of CHF. Dictated by: Dictated on workstation # [id number]
--- NOTE | 2019-07-18 12:50 | History & Physical ---
HPI History of Present Illness: 49 yo female came to ER due to shortness of breath x 3 days and high blood sugar. She reports blood sugar in the 400s at home. She was taking insulin on sliding scale with Novolog, does not take scheduled insulin, sometimes checks blood sugar before she eats and sometimes after, usually before. She reports she also has Levemir 20 units at night time that she has been taking. She has been out of her medications for about a month she reports due to cost. Date seen by provider: Jul 18, 2019 Time Seen by Provider: 12:45 Attending Physician Jerilyn Ortiz MD [place] [place] Consult Date of Admission Jul 17, 2019 at 22:45 Home Medications Home Medications Reviewed patient Home Medication Reconciliation performed by pharmacy medication reconciliations pet care technician and/or nursing. Patients Allergies have been reviewed. Allergies Coded Allergies: Penicillins (Verified Allergy, Unknown, 04/06/19) [id number] Hx Patient Social History Alcohol Use: Denies Use Recreational Drug Use: Yes (HX OF, CLEAN 2 YRS 06/2019) Drug of Choice: Meth and benzo's Type Used: Cigarettes 2nd Hand Smoke Exposure: Yes Recent Foreign Travel: No Contact w/other who traveled: No Recent Hopitalizations: Yes (2019) Recent Infectious Disease Expo: No Immunizations Up To Date Tetanus Booster (TDap): Less than 5yrs Date of Pneumonia Vaccine: Jun 12, 2008 Date of Influenza Vaccine: Sep 08, 2018 Past Medical History PMHx: Diabetes Mellitus - Type 2 (dx age 33) - insulin requiring Anxiety Atherosclerotic occlusive disease Superficial femoral vein thrombus Chronic anemia Tobacco Abuse Neuropathy Kidney Stones Depression Gastroparesis Hyperlipidemia Uterine Fibroids Dysfunctional Uterine Bleeding Left ventricular thrombus Congestive heart failure with EF 15% March 2018 Splenic infarct Renal infarct PSH: cholecystectomy Left leg arterial bypass Left BKA Section Vascular Stenting Left femoral artery thrombectomy Uterine artery embolization Family Medical History Family History: Diabetes mellitus 19 FATHER 19 MOTHER G8 BROTHER G8 SISTER Myocardial infarction 19 MOTHER Review of Systems ([facility]) Constitutional: No fever EENTM: No nose congestion, No throat pain Respiratory: No cough (says no but then states "kind of a dry cough"); short of breath Cardiovascular: No chest pain Gastrointestinal: No abdominal pain, No constipation, No diarrhea, No nausea, No vomiting Genitourinary: No dysuria Musculoskeletal: joint pain Reviewed Test Results Reviewed Test Results Lab Laboratory Tests Test 07/17/19 18:55 07/17/19 20:40 07/17/19 20:59 07/17/19 22:46 Range/Units White Blood Count 6.7 4.3-11.0 10^3/uL Red Blood Count 4.76 4.35-5.85 10^6/uL Hemoglobin 12.3 11.5-16.0 G/DL Hematocrit 39 35-52 % Mean Corpuscular Volume 81 80-99 FL Mean Corpuscular Hemoglobin 26 25-34 PG Mean Corpuscular Hemoglobin Concent 32 32-36 G/DL Red Cell Distribution Width 15.7 H 10.0-14.5 % Platelet Count 455 H 130-400 10^3/uL Mean Platelet Volume 10.7 H 7.4-10.4 FL Neutrophils (%) (Auto) 76 H 42-75 % Lymphocytes (%) (Auto) 17 12-44 % Monocytes (%) (Auto) 7 0-12 % Eosinophils (%) (Auto) 1 0-10 % Basophils (%) (Auto) 0 0-10 % Neutrophils # (Auto) 5.1 1.8-7.8 X 10^3 Lymphocytes # (Auto) 1.1 1.0-4.0 X 10^3 Monocytes # (Auto) 0.5 0.0-1.0 X 10^3 Eosinophils # (Auto) 0.0 0.0-0.3 10^3/uL Basophils # (Auto) 0.0 0.0-0.1 10^3/uL Prothrombin Time 13.1 12.2-14.7 SEC INR Comment 1.0 0.8-1.4 Activated Partial Thromboplast Time 26 24-35 SEC Sodium Level 130 L 135-145 MMOL/L Potassium Level 4.7 3.6-5.0 MMOL/L Chloride Level 96 L 98-107 MMOL/L Carbon Dioxide Level 24 21-32 MMOL/L Anion Gap 10 5-14 MMOL/L Blood Urea Nitrogen 12 7-18 MG/DL Creatinine 1.26 0.60-1.30 MG/DL Estimat Glomerular Filtration Rate 45 BUN/Creatinine Ratio 10 Glucose Level 683 *H 70-105 MG/DL Calcium Level 8.8 8.5-10.1 MG/DL Corrected Calcium 9.4 8.5-10.1 MG/DL Total Bilirubin 0.4 0.1-1.0 MG/DL Aspartate Amino Transf (AST/SGOT) 28 5-34 U/L Alanine Aminotransferase (ALT/SGPT) 62 H 0-55 U/L Alkaline Phosphatase 364 H 40-136 U/L C-Reactive Protein High Sensitivity 0.81 H 0.00-0.50 MG/DL B-Type Natriuretic Peptide 3055.7 H <100.0 PG/ML Total Protein 6.3 L 6.4-8.2 GM/DL Albumin 3.2 3.2-4.5 GM/DL Blood Gas Puncture Site RIGHT RADIAL Blood Gas Patient Temperature 98.6 Arterial Blood pH 7.41 7.37-7.43 Arterial Blood Partial Pressure CO2 41 35-45 MMHG Arterial Blood Partial Pressure O2 67 L 79-93 MMHG Arterial Blood HCO3 25 23-27 MMOL/L Arterial Blood Total CO2 26.6 21.0-31.0 MMOL/L Arterial Blood Oxygen Saturation 94 94-100 % Arterial Blood Base Excess 1.2 -2.5-2.5 MMOL/L Garcia Test POSITIVE Blood Gas Ventilator Setting NO Blood Gas Inspired Oxygen N Glucometer 475 *H 70-110 MG/DL Urine Color YELLOW Urine Clarity SL CLOUDY Urine pH 5 5-9 Urine Specific [place] 1.020 1.016-1.022 Urine Protein 3+ H NEGATIVE Urine Glucose (UA) 4+ H NEGATIVE Urine Ketones 1+ H NEGATIVE Urine Nitrite NEGATIVE NEGATIVE Urine Bilirubin NEGATIVE NEGATIVE Urine Urobilinogen NORMAL NORMAL MG/DL Urine Leukocyte Esterase 3+ H NEGATIVE Urine RBC (Auto) 5+ H NEGATIVE Urine RBC 2-5 H /HPF Urine WBC 25-50 H /HPF Urine Squamous Epithelial Cells 2-5 /HPF Urine Crystals NONE /LPF Urine Bacteria LARGE H /HPF Urine Casts NONE /LPF Urine Mucus NEGATIVE /LPF Urine Yeast FEW H /HPF Urine Culture Indicated YES Test 07/18/19 01:15 07/18/19 01:42 07/18/19 05:24 07/18/19 07:30 Range/Units Troponin I < 0.028 < 0.028 <0.028 NG/ML Glucometer 517 *H 562 *H 70-110 MG/DL White Blood Count 6.9 4.3-11.0 10^3/uL Red Blood Count 4.41 4.35-5.85 10^6/uL Hemoglobin 11.4 L 11.5-16.0 G/DL Hematocrit 36 35-52 % Mean Corpuscular Volume 82 80-99 FL Mean Corpuscular Hemoglobin 26 25-34 PG Mean Corpuscular Hemoglobin Concent 31 L 32-36 G/DL Red Cell Distribution Width 15.6 H 10.0-14.5 % Platelet Count 423 H 130-400 10^3/uL Mean Platelet Volume 10.5 H 7.4-10.4 FL Neutrophils (%) (Auto) 72 42-75 % Lymphocytes (%) (Auto) 21 12-44 % Monocytes (%) (Auto) 6 0-12 % Eosinophils (%) (Auto) 1 0-10 % Basophils (%) (Auto) 1 0-10 % Neutrophils # (Auto) 4.9 1.8-7.8 X 10^3 Lymphocytes # (Auto) 1.5 1.0-4.0 X 10^3 Monocytes # (Auto) 0.4 0.0-1.0 X 10^3 Eosinophils # (Auto) 0.1 0.0-0.3 10^3/uL Basophils # (Auto) 0.0 0.0-0.1 10^3/uL Sodium Level 132 L 135-145 MMOL/L Potassium Level 4.1 3.6-5.0 MMOL/L Chloride Level 96 L 98-107 MMOL/L Carbon Dioxide Level 25 21-32 MMOL/L Anion Gap 11 5-14 MMOL/L Blood Urea Nitrogen 15 7-18 MG/DL Creatinine 1.03 0.60-1.30 MG/DL Estimat Glomerular Filtration Rate 56 BUN/Creatinine Ratio 15 Glucose Level 496 *H 70-105 MG/DL Calcium Level 8.4 L 8.5-10.1 MG/DL Corrected Calcium 9.3 8.5-10.1 MG/DL Total Bilirubin 0.3 0.1-1.0 MG/DL Aspartate Amino Transf (AST/SGOT) 42 H 5-34 U/L Alanine Aminotransferase (ALT/SGPT) 52 0-55 U/L Alkaline Phosphatase 377 H 40-136 U/L Total Protein 5.9 L 6.4-8.2 GM/DL Albumin 2.9 L 3.2-4.5 GM/DL Test 07/18/19 11:27 Range/Units Glucometer 196 H 70-110 MG/DL Radiology CT chest 8/20 "IMPRESSION: 1. Cardiac enlargement with large bilateral pleural effusions and findings compatible with CHF. 2. No pulmonary embolism or aortic pathology identified. 3. Not mentioned above: Nodular infiltrate in the right anterior lung base, probably subsegmental atelectasis. Recommend followup to assure resolution." Physical Exam-([facility]) Physical Exam Vital Signs VS - Last 72 Hours, by Label 07/17/19 07/17/19 07/17/19 07/18/19 18:45 23:31 23:50 00:03 Temp 98.7 98.7 97.2 Pulse 95 90 90 Resp 22 20 18 B/P (MAP) 129/82 (98) 130/80 (97) 125/76 Pulse Ox 96 98 92 O2 Delivery Nasal Cannula Room Air Nasal Cannula Room Air O2 Flow Rate 2.00 2.00 07/18/19 07/18/19 07/18/19 07/18/19 01:30 02:00 03:34 04:32 Temp 98.1 Pulse 90 93 92 Resp 18 B/P (MAP) 122/88 (99) Pulse Ox 92 91 91 O2 Delivery Room Air Room Air FiO2 21 07/18/19 07/18/19 07/18/19 07/18/19 07:00 08:00 09:57 10:00 Temp 97.0 Pulse 92 90 Resp 18 B/P (MAP) 121/83 (96) Pulse Ox 97 91 O2 Delivery Room Air Room Air Room Air Capillary Refill : Less Than 3 Seconds General Appearance: no apparent distress Respiratory: lungs clear, normal breath sounds Cardiovascular: regular rate, rhythm, no murmur Gastrointestinal: normal bowel sounds, non tender, soft Extremities: no pedal edema, other (left BKA) Neurologic/Psychiatric: alert, normal mood/affect Skin: warm/dry, other (scabbed lesions on upper back) Assessment/Plan Assessment/Plan Admission Status: Inpatient Order (span 2 midnights) Reason for Inpatient Admission: CHF exacerbation with severe hyperglycemia requiring intensive therapy at high risk for decompensation. (1) Acute exacerbation of congestive heart failure Status: Acute Assessment & Plan: BNP above 3000. On room air. Receiving IV lasix BID. Cardiology consulted, appreciate recommendations. Qualifiers: Qualified Codes: I50.9 - Heart failure, unspecified (2) Acute hyperglycemia Status: Acute Assessment & Plan: Improving with insulin overnight, resume home insulin and adjust as needed. (3) Thrombocytosis Status: Acute Assessment & Plan: Likely reactive, monitor. (4) Hyponatremia Status: Acute Assessment & Plan: Secondary to hyperglycemia, monitor. (5) Left ventricular thrombus Status: Chronic Assessment & Plan: History of, was to be on Eliquis, has not filled since Jul due to cost. Will restart for now. (6) IDDM (insulin dependent diabetes mellitus) Status: Chronic (7) DVT prophylaxis Status: Acute Assessment & Plan: Eliquis Clinical Quality Measures DVT/VTE Risk/Contraindication: Risk Factor Score Per Nursin RFS Level Per Nursing on Admit: 4+=Very High JERILYN ORTIZ MD Jul 18, 2019 12:50
--- NOTE | 2019-07-18 13:32 | Occupational Therapy Eval ---
OT Evaluation-General/PLF Medical Diagnosis Admission Date Jul 17, 2019 at 22:45 Medical Diagnosis: CHF exacerbation, hyperglycemia Onset Date: Jul 17, 2019 Therapy Diagnosis Therapy Diagnosis: impaired ADLs and mobility Height/Weight Height (Feet): 5 Height (Inches): 11.00 Weight (Pounds): 172 Weight (Ounces): 7.0 Precautions Precautions/Isolations: Seizure, Standard Precautions Weight Bear Status NWB LLE secondary to L BKA, Full weight bearing RLE Referral Physician: Kiki Ortiz MD Referral Reason: Activity Tolerance, Self Care, Evaluation/Treatment, Strengthening/ROM Medical History Additional Medical History L BKA (2 years ago) Current History Pt arrived at hospital 07/17 secondary to CHF exacerbations and hyperglycemia Reviewed History: Yes Social History Home: Apartment (ground level) Current Living Status: Spouse (ex ) Entry Into Home: Stairs Without Railing Steps Into Home: 3 To get into/out of her apartment, pt reports "my picks me up and sits me inside". ADL-Prior Level of Function Therapy Code Descriptions/Definitions Functional [place] Measure: 0=Not Assessed/NA 4=Minimal Assistance 1=Total Assistance 5=Supervision or Setup 2=Maximal Assistance 6=Modified [place] 3=Moderate Assistance 7=Complete [place] Therapy Quality Codes: 6 Independent with activity with or without an assistive device 5 Patient requires set up or clean up by helper. Patient completes activity by themselves 4 Supervision or touching assist (CGA). [place] provide cues , steadying ass ist 3 The helper provides less than half the effort to complete the activity 2 The helper provides more than half the effort to complete the activity 1 Dependent. The helper does all the effort to complete an activity 7 Patient refused to complete or attempt activity 9 The patient did not perform the activity before the current illness or injury 88 Not attempted due to Medical conditions or safety concerns Functional Abilities and Goals: Independent: Patient completed the activities by him/herself, with or without an assistive device, with no assistance from a helper. Needed Some Help: Patient needed partial assistance from another person to complete activities. Dependent: A helper completed the activities for the patient. Unknown: Not Applicable: Self Care: Needed Some Help Functional Cognition: Independent DME/Equipment: Bath Bench, Tub/Shower DME/Equipment Comments pt uses w/c around house, does not use walker to take steps Pt reports since her L BKA, she has transferred around her house using a w/c, she does not use a walker and is not interested in using one. She stated she was independent with all self care prior to hospitalization, but she did need some assistance the past month secondary to her RLE being swollen and difficult to li ft. Pt states her picks her up to get into/out of house. Per PT report, pt states her or other family assist her with stand pivot transfers at home. Drive Self: No OT Current Status Subjective Pt laying in bed at start of session, agreed to OT tx. Pt did not report any pain this session, stated she is not going to stand. Mental Status/Objective Patient Orientation: Person, Place, Time, Situation Current Glasses/Contacts: No Hearing Aids: No Dentures/Partials: No Hand Dominance: Right Upper Extremity ROM WNL, pt able to reach back of head Upper Extremity Coordination WNL, intact finger to nose test and thumb opposition to each finger Upper Extremity Sensation WNL to light touch Upper Extremity Strength 4/5 MMT BUE ADL-Treatment Therapy Code Descriptions/Definitions Functional [place] Measure: 0=Not Assessed/NA 4=Minimal Assistance 1=Total Assistance 5=Supervision or Setup 2=Maximal Assistance 6=Modified [place] 3=Moderate Assistance 7=Complete [place] Therapy Quality Codes: 6 Independent with activity with or without an assistive device 5 Patient requires set up or clean up by helper. Patient completes activity by themselves 4 Supervision or touching assist (CGA). [place] provide cues , steadying assist 3 The helper provides less than half the effort to complete the activity 2 The helper provides more than half the effort to complete the activity 1 Dependent. The helper does all the effort to complete an activity 7 Patient refused to complete or attempt activity 9 The patient did not perform the activity before the current illness or injury 88 Not attempted due to Medical conditions or safety concerns Grooming (FIM): 5 (Pt able to wash face and hands at bed level with set up of washcloth) Lower Body Dressing (FIM): 4 (pt able to don/doff R sock. Pt reported she needs help with LE dressing secondary to her leg feeling heavy.) Transfers (B, C, W/C) (FIM): 6 (Mod I bed mobility including supine to sit/sit to supine , pt not willing to stand during tx) Other Treatments Pt agreed to OT eval, post session, pt laying in bed with call light in reach and needs met. Education OT Patient Education: Correct positioning, Progress toward Goal/Update tx plan, Purpose of tx/functional activities Teaching Recipient: Patient Teaching Methods: Demonstration, Discussion Response to Teaching: Verbalize Understanding, Return Demonstration OT Short Term Goals Short Term Goals 1=Demonstrate adherence to instructed precautions during ADL tasks. 2=Patient will verbalize/demonstrate understanding of assistive devices/modifications for ADL. 3=Patient will improve strength/tolerance for activity to enable patient to perf orm ADL's. OT Group Home Goals Cell Lead Goals Time Frame: Jul 25, 2019 Grooming(FIM): 6 Bathing(FIM): 6 Bathing Location: L Arm, R Arm, L Upper Leg, R Upper Leg, R Lower Leg (including foot), Chest, Abdomen, Buttocks, Perineal Area Lower Body Dressing(FIM): 6 Additional Goals: 1-Demonstrate ADL Tasks, 2-Verbalize Understanding, 3- ImproveStrength/Divya 1=Demonstrate adherence to instructed precautions during ADL tasks. 2=Patient will verbalize/demonstrate understanding of assistive devices/modifications for ADL. 3=Patient will improve strength/tolerance for activity to enable patient to perform ADL's. OT Education/Plan Problem List/Assessment Assessment: Decreased Activ Tolerance, Decreased UE Strength, Impaired Self- Care Skills Discharge Recommendations Plan/Recommendations: Continue POC Therapy D/C Recommendations: Home w/ Family Support Comment to be determined Treatment Plan/Plan of Care Treatment,Training & Education: Yes Patient would benefit from OT for education, treatment and training to promote independence in ADL's, mobility, safety and/or upper extremity function for ADL's. Plan of Care: ADL Retraining, Functional Mobility, UE Funct Exercise/Act Treatment Duration: Jul 25, 2019 Frequency: 5 times per week Estimated Hrs Per Day: .25 hour per day Rehab Potential: Fair Time/GCodes Start Time: 13:10 Stop Time: 13:21 Total Time Billed (hr/min): 11 Billed Treatment Time 1, EDWINA X11 mins GAURANG DAVILA OT Jul 18, 2019 13:32
[2019-07-18] MEDS: CARVEDILOL 3.125 MG (COREG) TABLET PO SCH (20:15)
[2019-07-18] MEDS: APIXABAN 5 MG (ELIQUIS) TABLET PO SCH (20:16)
[2019-07-18] MEDS ORDERED: NON-FORMULARY MEDICATION 1 EA EA (Carvedilol 3.125 MG) PO SCH (21:00)
[2019-07-19] MEDS: RT-ALBUTEROL/IPRATROPIUM 3 ML (DUONEB) VIAL INH SCH ×5 (03:05→21:43)
[2019-07-19 04:00] VITALS: BP 109/60
[2019-07-19] MEDS: inSUlin ASPART (NovoLOG) 1 UNIT/0.01 ML (CHARGE PER UNIT) SC SCH ×7 (06:10→21:24)
[2019-07-19 06:29] LABS: HEMOGLOBIN 11.1 G/DL (11.5-16.0); MEAN PLATELET VOLUME 10.9 FL (7.4-10.4); RED CELL DISTRIBUTION WIDTH 15.3 % (10.0-14.5); WHITE BLOOD COUNT 9.1 10^3/uL (4.3-11.0)
[2019-07-19] MEDS: FUROSEMIDE 40 MG/4 ML INJ (LASIX) IV SCH ×2 (06:48→19:00)
[2019-07-19 06:49] LABS: BUN/CREATININE RATIO 36; CALCIUM 8.6 MG/DL (8.5-10.1); CARBON DIOXIDE 26 MMOL/L (21-32); CHLORIDE 97 MMOL/L (98-107); CREATININE SERUM 0.72 MG/DL (0.60-1.30); GFR ESTIMATED > 60; GLUCOSE 114 MG/DL (70-105); MAGNESIUM 1.6 MG/DL (1.6-2.4); POTASSIUM 4.5 MMOL/L (3.6-5.0); SODIUM 133 MMOL/L (135-145)
[2019-07-19 08:20] VITALS: BP 115/64
[2019-07-19] MEDS: CARVEDILOL 3.125 MG (COREG) TABLET PO SCH ×2 (08:28→20:17)
[2019-07-19] MEDS: APIXABAN 5 MG (ELIQUIS) TABLET PO SCH ×2 (08:29→20:17)
[2019-07-19] MEDS: ASPIRIN E.C. 81 MG (ECOTRIN) TAB PO SCH (08:29)
[2019-07-19] MEDS ORDERED: NON-FORMULARY MEDICATION 1 EA EA (Lisinopril 2.5 MG) PO SCH (09:00)
[2019-07-19] MEDS ORDERED: lisINopril 5 MG (PRINIVIL) TABLET PO SCH (09:00)
--- NOTE | 2019-07-19 11:35 | Physical Therapy Daily Note ---
PT Daily Note-Current Subjective Patient adamantly declined OOB activities. Agrees to exercises Mental Status Patient Orientation: Person, Time, Situation Transfers Therapy Code Descriptions/Definitions Functional [place] Measure: 0=Not Assessed/NA 4=Minimal Assistance 1=Total Assistance 5=Supervision or Setup 2=Maximal Assistance 6=Modified [place] 3=Moderate Assistance 7=Complete [place] Therapy Quality Codes: 6 Independent with activity with or without an assistive device 5 Patient requires set up or clean up by helper. Patient completes activity by themselves 4 Supervision or touching assist (CGA). [place] provide cues , steadying assist 3 The helper provides less than half the effort to complete the activity 2 The helper provides more than half the effort to complete the activity 1 Dependent. The helper does all the effort to complete an activity 7 Patient refused to complete or attempt activity 9 The patient did not perform the activity before the current illness or injury 88 Not attempted due to Medical conditions or safety concerns Weight Bearing Right Lower Extremity: Right Full Weight Bearing Left Lower Extremity: Left Non Weight Bearing left below knee amputee Exercises Supine Ex: Quad Set, Heel Slides, Straight leg raise, Hip abd/add Supine Reps: 15 (AROM bilaterally) Assessment Patient performed exercises without difficulty. Education with patient on importance of being up in chair to prevent possible negative side effects, however, patient continued to decline. PT Short Term Goals Short Term Goals Time Frame: Jul 25, 2019 PT Plan Treatment/Plan Treatment Plan: Continue Plan of Care Treatment Plan: Bed Mobility, Concurrent Therapy, Education, Functional Activity Divya, Functional Strength, Gait, Safety, Therapeutic Exercise, Transfers Treatment Duration: Jul 25, 2019 Frequency: 6 times per week Estimated Hrs Per Day: .25 hour per day Patient and/or Family Agrees t: Yes Time/GCodes Time In: 1039 Time Out: 1047 Total Billed Treatment Time: 8 Total Billed Treatment 1 visit EX 8 min SERINA MURPHY PT Jul 19, 2019 11:35
[2019-07-19 12:00] VITALS: BP 112/72
--- NOTE | 2019-07-19 13:05 | Progress Note ---
Subjective Subjective/Events-last exam Afebrile, reports she is feeling better and hoping to go home soon. Objective Exam Last Set of Vital Signs Vital Signs Date Time Temp Pulse Resp B/P (MAP) Pulse Ox O2 Delivery O2 Flow Rate FiO2 07/19/19 08:36 96 Room Air 07/19/19 08:20 98.0 96 18 115/64 (81) 07/18/19 20:00 0.00 07/18/19 01:30 21 Capillary Refill : Less Than 3 Seconds I&O Intake and Output 07/19/19 00:00 Intake Total 3800 ml Output Total 5150 ml Balance -1350 ml Intake Oral 3800 ml Output Urine Total 4850 ml Post Void Residual 300 ml General: Alert, No Acute Distress Lungs: Clear to Auscultation, Normal Air Movement Heart: Regular Rate, No Murmurs Neuro: Normal Speech Psych/Mental Status: Mental Status NL Results/Procedures Lab Laboratory Tests 07/18/19 16:22: Glucometer 157H 07/18/19 20:13: Glucometer 184H 07/19/19 05:36: White Blood Count 9.1, Red Blood Count 4.35, Hemoglobin 11.1L, Hematocrit 35, Mean Corpuscular Volume 81, Mean Corpuscular Hemoglobin 26, Mean Corpuscular Hemoglobin Concent 32, Red Cell Distribution Width 15.3H, Platelet Count 445H, Mean Platelet Volume 10.9H, Sodium Level 133L, Potassium Level 4.5, Chloride Level 97L, Carbon Dioxide Level 26, Anion Gap 10, Blood Urea Nitrogen 26H, Creatinine 0.72, Estimat Glomerular Filtration Rate > 60, BUN/Creatinine Ratio 36, Glucose Level 114H, Calcium Level 8.6, Magnesium Level 1.6 07/19/19 06:01: Glucometer 111H 07/19/19 11:28: Glucometer 41*L 07/19/19 11:54: Glucometer 51*L 07/19/19 12:43: Glucometer 79 Microbiology 07/17/19 Urine Culture - Final, Complete 3 or more isolates Rad[address] CT chest 07/17 "IMPRESSION: 1. Cardiac enlargement with large bilateral pleural effusions and findings compatible with CHF. 2. No pulmonary embolism or aortic pathology identified. 3. Not mentioned above: Nodular infiltrate in the right anterior lung base, probably subsegmental atelectasis. Recommend followup to assure resolution." Assessment/Plan Assessment/Plan (1) Acute exacerbation of congestive heart failure Status: Acute Assessment & Plan: BNP above 3000. On room air. Receiving IV lasix BID. Cardiology consulted, appreciate recommendations. Qualifiers: Qualified Codes: I50.9 - Heart failure, unspecified (2) Acute hyperglycemia Status: Acute Assessment & Plan: Improving with insulin overnight, resume home insulin and adjust as needed. 07/19- improving, had hypoglycemia today, will adjust insulin as needed. (3) Thrombocytosis Status: Acute Assessment & Plan: Likely reactive, monitor. (4) Hyponatremia Status: Acute Assessment & Plan: Secondary to hyperglycemia, monitor. Improving (5) Left ventricular thrombus Status: Chronic Assessment & Plan: History of, was to be on Eliquis, has not filled since Jul due to cost. Will restart for now. (6) IDDM (insulin dependent diabetes mellitus) Status: Chronic (7) DVT prophylaxis Status: Acute Assessment & Plan: Eliquis Clinical Quality Measures DVT/VTE Risk/Contraindication: Risk Factor Score Per Nursin RFS Level Per Nursing on Admit: 4+=Very High JERILYN RAMESH MD Jul 19, 2019 13:05
[2019-07-19 13:57] LABS: HEMOGLOBIN 14.2 G/DL (11.5-16.0); MEAN PLATELET VOLUME 10.5 FL (7.4-10.4); RED CELL DISTRIBUTION WIDTH 15.9 % (10.0-14.5); WHITE BLOOD COUNT 16.3 10^3/uL (4.3-11.0)
--- NOTE | 2019-07-19 14:30 | Occ Therapy Progress Note ---
Therapy Progress Note per NSG pt is on medical hold. OT will attempt to see patient 07/20/19 if able to participate in therapy. JOSE DURAN OT Jul 19, 2019 14:30
[2019-07-19] MEDS ORDERED: FUROSEMIDE 40 MG/4 ML INJ (LASIX) IVP NR (14:45)
--- NOTE | 2019-07-19 14:49 | Diagnostic Imaging Report ---
Indication: Fever 2 views of the chest shows normal heart size and vascularity. There is left basilar atelectasis and infiltrate with a small left-sided effusion. Impression: There is persistent left basilar atelectasis, infiltrate and effusion similar to the 07/18/2019 study. Dictated by: Dictated on workstation # [id number]
[2019-07-19] MEDS ORDERED: AZITHROMYCIN INJECTION 500 MG in NS (IVPB) 250 ML IV NR (15:00)
--- NOTE | 2019-07-19 15:31 | NUR ---
patient having test done at this time
[2019-07-19 16:00] VITALS: BP 127/84
[2019-07-19] MEDS: cefTRIAXone FOR IV USE 1,000 MG in WATER (STERILE) FOR INJECTION 10 ML IV SCH (18:54)
--- NOTE | 2019-07-19 19:24 | Cardiology Progress Note ---
Cardiology SOAP Progress Note Subjective: improved shortness of breath. Objective: I&O/Vital Signs 07/19/19 07/19/19 07/19/19 07/19/19 08:00 08:20 08:36 12:00 Temp 98.0 Pulse 96 89 Resp 18 20 B/P (MAP) 115/64 (81) 112/72 (85) Pulse Ox 97 96 95 O2 Delivery Room Air Room Air Room Air Room Air 07/19/19 16:00 Temp 95.8 Pulse 84 Resp 18 B/P (MAP) 127/84 (98) Pulse Ox 98 O2 Delivery Room Air 07/19/19 00:00 Intake Total 1040 ml Output Total 3800 ml Balance -2760 ml Weight (Pounds): 173 Weight (Ounces): 1.6 Weight (Calculated Kilograms): 78.782274 Constitutional: appears stated age, AAO x 3, apparent distress, well-developed, well-nourished Respiratory: accessory muscle use; No respiratory distress, No chest tender, No chest expansion is symmetric; chest is bilaterally symmetric; No lungs clear to percussion; lungs clear to auscultation; No crackles, No rhonchi, No rales, No stridor, No wheezing, No pleural rub, No other Cardiovascular: regular rate-rhythm; No irregularly irregular, No extra beats, No parasternal heave is noted, No JVD, No edema, No bradycardia, No tachycardia, No point of maximal impulse, No cardiac thrills are palpable; S1 and S2; No gallop/S3, No gallop/S4, No diastolic murmur, No systolic murmur, No friction rub, No click, No other Gastrointestional: No tender, No soft, No round, No distended, No pulsatile mass, No organomegaly, No guarding, No rebound, No tenderness, No hernia, No mass, No audible bowel sounds, No abnormal bowel sounds, No abdominal bruits, No spleenomegaly, No other Extremities: No normal range of motion, No non-tender, No normal inspection, No pedal edema, No calf tenderness, No normal capillary refill, No pelvis stable, No calf tenderness, No inflammation, No pedal edema, No slow capillary refill, No swelling, No other, No abrasion, No clubbing, No cyanosis, No ecchymosis, No laceration, No no lower extremity edema bilateral, No significant edema, No tenderness, No wound Neurologic/Psychiatric: no motor/sensory deficits, alert, normal mood/affect, oriented x 3, power is 5/5 both on sides Skin: No normal color, No warm/dry, No cyanosis, No cool, No diaphoresis, No damp, No ecchymosis, No jaundice, No mottled, No pallor, No rash, No tattoos/piercings, No ulcerations, No rash on exposed areas, No ulcerations on exposed areas, No other Results/Procedures: Labs Laboratory Tests 07/18/19 20:13: Glucometer 184H 07/19/19 05:36: White Blood Count 9.1, Red Blood Count 4.35, Hemoglobin 11.1L, Hematocrit 35, Mean Corpuscular Volume 81, Mean Corpuscular Hemoglobin 26, Mean Corpuscular Hemoglobin Concent 32, Red Cell Distribution Width 15.3H, Platelet Count 445H, Mean Platelet Volume 10.9H, Sodium Level 133L, Potassium Level 4.5, Chloride Level 97L, Carbon Dioxide Level 26, Anion Gap 10, Blood Urea Nitrogen 26H, Creatinine 0.72, Estimat Glomerular Filtration Rate > 60, BUN/Creatinine Ratio 36, Glucose Level 114H, Calcium Level 8.6, Magnesium Level 1.6 07/19/19 06:01: Glucometer 111H 07/19/19 11:28: Glucometer 41*L 07/19/19 11:54: Glucometer 51*L 07/19/19 12:43: Glucometer 79 07/19/19 13:50: White Blood Count 16.3H, Red Blood Count 5.50, Hemoglobin 14.2#, Hematocrit 45, Mean Corpuscular Volume 81, Mean Corpuscular Hemoglobin 26, Mean Corpuscular Hemoglobin Concent 32, Red Cell Distribution Width 15.9H, Platelet Count 453H, Mean Platelet Volume 10.5H, Lactic Acid Level 1.85 07/19/19 16:11: Glucometer 265H Microbiology 07/17/19 Urine Culture - Final, Complete 3 or more isolates A/P: Assessment/Dx: Acute systolic congestive heart failure, acute respiratory failure, COPD, Active smoking, Diabetes, Hyponatremia, Hypocalcemia, Thrombocytosis, Large pleural effusion Plan: Acute systolic congestive heart failure, acute respiratory failure, IV Lasix. Echocardiogram done 07/18/2019 shows an EF of 25-30 percent with dilated cardiomyopathy. Elevated PA pressure. Large left-sided pleural effusion. Patient will require aggressive therapy for cardiomyopathy. I discussed at length for the need of coronary angiography to rule out CAD. However the patient was not very keen on doing coronary angiography. We will give her reading material and wait for her decision. Beta blockers, ROSELINE inhibitor for dilated cardiomyopathy. Sudden cardiac prevention for dilated cardiomyopathy, LifeVest is recommended. COPD, defer to the primary team. Pulmonary hypertension, could be secondary to COPD and cardiomyopathy. Active smoking, smoking cessation was strongly recommended. Diabetes, deferred to the primary team., Hyponatremia, Hypocalcemia, Thrombocytosis, Large pleural effusion, likely due to congestive heart failure. However thoracentesis may be required. Complicated medical and cardiac issues. Thank you for your consultation. Please call me if you have any questions. Hui Suarez MD, FACP, FACC, FSCAI, FHRS, CCDS Interventional Cardiology Cardiac Electrophysiology Vascular Medicine and Endovascular Interventions Focused Exam Lactate Level 07/19/19 13:50: Lactic Acid Level 1.85 Taras SUAREZ MD Jul 19, 2019 19:24
[2019-07-19 20:18] VITALS: BP 120/63
--- NOTE | 2019-07-19 21:28 | NUR ---
FSBS 419 DR. RAMESH NOTIFIED, NEW ORDERS RECEIVED: GIVE NOVOLOG 12 UNITS, LEVEMIR 15 UNITS
[2019-07-20] VITALS (8 sets, daily range): BP systolic 99–146; BP diastolic 62–81
[2019-07-20] MEDS: RT-ALBUTEROL/IPRATROPIUM 3 ML (DUONEB) VIAL INH SCH ×4 (02:10→19:39)
[2019-07-20] MEDS: inSUlin ASPART (NovoLOG) 1 UNIT/0.01 ML (CHARGE PER UNIT) SC SCH ×7 (05:34→21:00)
[2019-07-20 06:24] LABS: MEAN PLATELET VOLUME 10.4 FL (7.4-10.4); RED CELL DISTRIBUTION WIDTH 15.6 % (10.0-14.5); WHITE BLOOD COUNT 13.6 10^3/uL (4.3-11.0)
[2019-07-20 06:43] LABS: BUN/CREATININE RATIO 43; CALCIUM 8.8 MG/DL (8.5-10.1); CARBON DIOXIDE 28 MMOL/L (21-32); CHLORIDE 97 MMOL/L (98-107); GFR ESTIMATED > 60; GLUCOSE 116 MG/DL (70-105); MAGNESIUM 1.3 MG/DL (1.6-2.4); POTASSIUM 4.4 MMOL/L (3.6-5.0); SODIUM 134 MMOL/L (135-145)
[2019-07-20] MEDS: FUROSEMIDE 40 MG/4 ML INJ (LASIX) IV SCH ×2 (06:49→17:42)
--- NOTE | 2019-07-20 09:26 | Physical Therapy Progress Note ---
Therapy Progress Note Patient adamantly declined PT stating, "Leave me alone. I can do my own thing." RN notified. 1 ref ([phone]) SERINA MURPHY PT Jul 20, 2019 09:26
[2019-07-20] MEDS: CARVEDILOL 3.125 MG (COREG) TABLET PO SCH ×2 (09:28→20:35)
[2019-07-20] MEDS: lisINopril 5 MG (PRINIVIL) TABLET PO SCH (09:28)
[2019-07-20] MEDS: MAGNESIUM 1 GM/100 ML IVPB 100 ML IV SCH ×2 (09:28→09:39)
[2019-07-20] MEDS: ASPIRIN E.C. 81 MG (ECOTRIN) TAB PO SCH (09:32)
[2019-07-20] MEDS: APIXABAN 5 MG (ELIQUIS) TABLET PO SCH ×2 (09:32→20:35)
[2019-07-20] MEDS: AZITHROMYCIN 250 MG TAB (ZITHROMAX) PO SCH (09:38)
[2019-07-20] MEDS ORDERED: MIDAZOLAM 5 MG/5 ML (VERSED) VIAL ONE (09:59)
[2019-07-20] MEDS ORDERED: fentaNYL INJECTION 100 MCG/2 ML AMP ONE (10:00)
[2019-07-20] MEDS ORDERED: HEParin (CATH LAB) 2,000 ML IV ONE (10:01)
[2019-07-20] MEDS ORDERED: NS IV 1000 ML 1,000 ML ONE (10:01)
[2019-07-20] MEDS ORDERED: LIDOCAINE 1% INJ 20 ML 20 ML VIAL ONE (10:01)
--- NOTE | 2019-07-20 11:15 | Cardiology Progress Note ---
Cardiology SOAP Progress Note Subjective: improved shortness of breath. Objective: I&O/Vital Signs 07/20/19 07/20/19 07/20/19 07/20/19 00:08 01:20 02:11 04:00 Temp 97.6 98.3 Pulse 95 101 94 Resp 21 20 B/P (MAP) 121/68 (85) 120/62 (81) Pulse Ox 96 92 94 O2 Delivery Room Air Room Air Room Air 07/20/19 07/20/19 07/20/19 07/20/19 07:00 08:00 08:00 09:05 Temp 98.7 Pulse 100 94 Resp 18 B/P (MAP) 101/64 (76) Pulse Ox 94 90 O2 Delivery Room Air Room Air Room Air 07/20/19 00:00 Intake Total 1120 ml Output Total 450 ml Balance 670 ml Weight (Pounds): 171 Weight (Ounces): 0.7 Weight (Calculated Kilograms): 77.338119 Constitutional: appears stated age, AAO x 3, apparent distress, well-developed, well-nourished Respiratory: accessory muscle use; No respiratory distress, No chest tender, No chest expansion is symmetric; chest is bilaterally symmetric; No lungs clear to percussion; lungs clear to auscultation; No crackles, No rhonchi, No rales, No stridor, No wheezing, No pleural rub, No other Cardiovascular: regular rate-rhythm; No irregularly irregular, No extra beats, No parasternal heave is noted, No JVD, No edema, No bradycardia, No tachycardia, No point of maximal impulse, No cardiac thrills are palpable; S1 and S2; No gallop/S3, No gallop/S4, No diastolic murmur, No systolic murmur, No friction rub, No click, No other Gastrointestional: No tender, No soft, No round, No distended, No pulsatile mass, No organomegaly, No guarding, No rebound, No tenderness, No hernia, No mass, No audible bowel sounds, No abnormal bowel sounds, No abdominal bruits, No spleenomegaly, No other Extremities: No normal range of motion, No non-tender, No normal inspection, No pedal edema, No calf tenderness, No normal capillary refill, No pelvis stable, No calf tenderness, No inflammation, No pedal edema, No slow capillary refill, No swelling, No other, No abrasion, No clubbing, No cyanosis, No ecchymosis, No laceration, No no lower extremity edema bilateral, No significant edema, No tenderness, No wound Neurologic/Psychiatric: no motor/sensory deficits, alert, normal mood/affect, oriented x 3, power is 5/5 both on sides Skin: No normal color, No warm/dry, No cyanosis, No cool, No diaphoresis, No damp, No ecchymosis, No jaundice, No mottled, No pallor, No rash, No tattoos/piercings, No ulcerations, No rash on exposed areas, No ulcerations on exposed areas, No other Results/Procedures: Labs Laboratory Tests 07/19/19 11:28: Glucometer 41*L 07/19/19 11:54: Glucometer 51*L 07/19/19 12:43: Glucometer 79 07/19/19 13:50: White Blood Count 16.3H, Red Blood Count 5.50, Hemoglobin 14.2#, Hematocrit 45, Mean Corpuscular Volume 81, Mean Corpuscular Hemoglobin 26, Mean Corpuscular Hemoglobin Concent 32, Red Cell Distribution Width 15.9H, Platelet Count 453H, Mean Platelet Volume 10.5H, Lactic Acid Level 1.85 07/19/19 16:11: Glucometer 265H 07/19/19 21:17: Glucometer 419*H 07/20/19 05:28: Glucometer 128H 07/20/19 05:55: White Blood Count 13.6H, Red Blood Count 4.32L, Hemoglobin 11.0#L, Hematocrit 35, Mean Corpuscular Volume 80, Mean Corpuscular Hemoglobin 25, Mean Corpuscular Hemoglobin Concent 32, Red Cell Distribution Width 15.6H, Platelet Count 507H, Mean Platelet Volume 10.4, Sodium Level 134L, Potassium Level 4.4, Chloride Level 97L, Carbon Dioxide Level 28, Anion Gap 9, Blood Urea Nitrogen 30H, Creatinine 0.70, Estimat Glomerular Filtration Rate > 60, BUN/Creatinine Ratio 43, Glucose Level 116H, Calcium Level 8.8, Magnesium Level 1.3L Microbiology 07/17/19 Urine Culture - Final, Complete 3 or more isolates A/P: Assessment/Dx: Acute systolic congestive heart failure, acute respiratory failure, COPD, Active smoking, Diabetes, Hyponatremia, Hypocalcemia, Thrombocytosis, Large pleural effusion Plan: Acute systolic congestive heart failure, acute respiratory failure, IV Lasix. Echocardiogram done 07/18/2019 shows an EF of 25-30 percent with dilated cardiomyopathy. Elevated PA pressure. Large left-sided pleural effusion. Patient will require aggressive therapy for cardiomyopathy. improved shortness of breath with aggressive IV Lasix. I discussed at length for the need of coronary angiography to rule out CAD. coronary angiography will be done on 07/20/2019. Beta blockers, ROSELINE inhibitor for dilated cardiomyopathy. Sudden cardiac prevention for dilated cardiomyopathy, LifeVest is recommended. COPD, defer to the primary team. Pulmonary hypertension, could be secondary to COPD and cardiomyopathy. Active smoking, smoking cessation was strongly recommended. Diabetes, deferred to the primary team., Hyponatremia, Hypocalcemia, Thrombocytosis, Large pleural effusion, likely due to congestive heart failure. However thoracentesis may be required. Thank you for your consultation. Please call me if you have any questions. Hui Suarez MD, FACP, FACC, FSCAI, FHRS, CCDS Interventional Cardiology Cardiac Electrophysiology Vascular Medicine and Endovascular Interventions Focused Exam Lactate Level 07/19/19 13:50: Lactic Acid Level 1.85 Taras SUAREZ MD Jul 20, 2019 11:15
--- NOTE | 2019-07-20 11:16 | Cardiac Procedure Note-CS/ASA ---
Pre-Procedure Note Pre-Op Procedure Note H&P Reviewed The H&P was reviewed, patient examined and no changes noted. Date H&P Reviewed: Jul 20, 2019 Time H&P Reviewed: 09:00 Conscious Sedation Pre-Proced Time 09:00 ASA Score 3 For ASA 3 and 4: Consider anesthesia and medical clearance. Also, for patients with a history of failed moderate sedation consider anesthesia. Airway Lungs Heart ASA score ASA 1: a normal healthy patient ASA 2: a patient with a mild systemic disease (mid diabetes, controlled hypertension, obesity ASA 3: a patient with a severe systemic disease that limits activity (angina, COPD, prior Myocardial infarction) ASA 4: a patient with an incapacitating disease that is a constant threat to life (CHF, renal failure) ASA 5: a moribund patient not expected to survive 24 hrs. (ruptured aneurysm) ASA 6: a declared brain- patient whose organs are being harvested. For emergent operations, add the letter E after the classification Mallampati Classification Grade 1 Sedation Plan Analgesia, Amnesia, Plan communicated to team members, Discussed options with patient/fam, Discussed risks with patient/fam The patient is an appropriate candidate to undergo the planned procedure, sedation, and anesthesia. The patient immediately re-assessed prior to indication. Taras GARCIA MD Jul 20, 2019 11:16
--- NOTE | 2019-07-20 11:19 | Coronary Angiography Report ---
Coronary Angiography Report DATE OF PROCEDURE: 07/20/19 INDICATION: new onset cardiomyopathy. PREOPERATIVE DIAGNOSIS: new onset cardiomyopathy, congestive heart failure. POSTOPERATIVE DIAGNOSIS: patent epicardial coronary arteries. Severe LV systolic dysfunction. HISTORY: this is a 49-year-old lady who presents with acute systolic congestive heart failure. Echocardiogram shows an EF of 25 percent. She has history of active smoking. Elevated PA pressure. Coronary angiography is recommended to rule out significant CAD in a patient with new onset severe cardiomyopathy. PROCEDURES PERFORMED: 1.Coronary angiography. 2.Left heart catheterization. COMPLICATIONS: None. SPECIMENS: None. ESTIMATED BLOOD LOSS: 10 mL ANESTHESIA: Conscious sedation ANTICOAGULATION: none CONTRAST: 46 mL. FLUOROSCOPY: 3.1 minutes. FLOUROSCOPY DOSE: 252 mgy. PROCEDURE DETAILS: The patient is a 49 female and was brought to the semiconductor lab technician after informed consent was taken. All the risks and complications were explained in detail; this included the risk of bleeding, vascular damage, stroke, CT and even . The patient was draped and prepped in the usual sterile fashion. Garcia's test was abnormal. Access was gained in the right femoral artery with a 5 Polish sheath. Coronary angiography and left heart catheterization was performed with a JR4 and a JL4 catheter. FINDINGS: 1.Left main: patent. 2.LAD: patent. 3.Left circumflex artery: patent. 4.RCA: patent. 5.Left heart catheterization: LV pressure 77/7 mmHg. LVEDP 11 mmHg. Aortic pressure 75/55 mmHg. Severe LV systolic dysfunction with global hypokinesis. No gradient across the aortic valve. CONCLUSIONS: 1. Patent epicardial coronary arteries. 2. Nonischemic cardiomyopathy. Hui Suarez MD, FACP, FACC, [facility] Interventional Cardiology Taras SUAREZ MD Jul 20, 2019 11:19
[2019-07-20] MEDS ORDERED: PATIENT MAY USE OWN MEDS, ALL PO SCH (11:30)
[2019-07-20] MEDS: ACETAMINOPHEN 500 MG TAB (TYLENOL) PO PRN (12:49)
[2019-07-20] MEDS ORDERED: ACETAMINOPHEN 500 MG TAB (TYLENOL) ONE (12:49)
[2019-07-20] MEDS ORDERED: fentaNYL INJECTION 100 MCG/2 ML AMP IVP ONE (13:00)
[2019-07-20] MEDS ORDERED: fentaNYL INJECTION 100 MCG/2 ML AMP IVP PRN (14:15)
--- NOTE | 2019-07-20 14:54 | NUR ---
CM/SS [facility] is working on financial coverage of the patient to see about setting her up with a lifevest.
--- NOTE | 2019-07-20 15:00 | Occupational Ther Daily Note ---
OT Current Status-Daily Note Subjective Pt laying in bed at start of session, stated she "could not move her legs", agreed to OT session focusing on UE exercise. Mental Status/Objective Patient Orientation: Normal For Age Therapy Code Descriptions/Definitions Functional Pike Measure: 0=Not Assessed/NA 4=Minimal Assistance 1=Total Assistance 5=Supervision or Setup 2=Maximal Assistance 6=Modified Pike 3=Moderate Assistance 7=Complete Pike Attachments: Telemetry Other Treatment Pt performed bed exercise with red theraband, shoulder all planes (to 90 de grees)/elbow flexion and extension, X10 reps each. Pt educated on importance of strengthening UE, verbalized understanding. Pt laying in bed post OT session, call light in reach and needs met. Education OT Patient Education: Exercise program, Home exercise program, Progress toward Goal/Update tx plan, Purpose of tx/functional activities Teaching Recipient: Patient Teaching Methods: Demonstration Response to Teaching: Verbalize Understanding, Return Demonstration OT Short Term Goals Short Term Goals 1=Demonstrate adherence to instructed precautions during ADL tasks. 2=Patient will verbalize/demonstrate understanding of assistive devices/modifications for ADL. 3=Patient will improve strength/tolerance for activity to enable patient to perform ADL's. OT Cop Winder Goals Cop Winder Goals Time Frame: Jul 25, 2019 Grooming(FIM): 6 Bathing(FIM): 6 Bathing Location: L Arm, R Arm, L Upper Leg, R Upper Leg, R Lower Leg (including foot), Chest, Abdomen, Buttocks, Perineal Area Lower Body Dressing(FIM): 6 Additional Goals: 1-Demonstrate ADL Tasks, 2-Verbalize Understanding, 3- ImproveStrength/Divya 1=Demonstrate adherence to instructed precautions during ADL tasks. 2=Patient will verbalize/demonstrate understanding of assistive devices/modif ications for ADL. 3=Patient will improve strength/tolerance for activity to enable patient to perform ADL's. OT Education/Plan Problem List/Assessment Assessment: Decreased Activ Tolerance, Decreased UE Strength, Impaired Bed Mobility, Impaired Funct Balance, Impaired I ADL's, Impaired Self-Care Skills Pt making poor progress towards OT goals secondary to refusal of ADLs/functional mobility. OT would recommend 24 supervision for safety. Discharge Recommendations Plan/Recommendations: Continue POC Therapy D/C Recommendations: 24 hr Supervision Treatment Plan/Plan of Care Treatment,Training & Education: Yes Patient would benefit from OT for education, treatment and training to promote independence in ADL's, mobility, safety and/or upper extremity function for ADL's. Plan of Care: ADL Retraining, Functional Mobility, UE Funct Exercise/Act Treatment Duration: Jul 25, 2019 Frequency: 5 times per week Estimated Hrs Per Day: .25 hour per day Rehab Potential: Guarded Time/GCodes Start Time: 14:43 Stop Time: 14:51 Total Time Billed (hr/min): 8 Billed Treatment Time 1, EX X8min GAURANG DAVILA OT Jul 20, 2019 15:00
--- NOTE | 2019-07-20 15:43 | Progress Note ---
Subjective Subjective/Events-last exam Denies concerns, states she does not feel short of breath, is wanting to go home. Focused Exam Lactate Level 07/19/19 13:50: Lactic Acid Level 1.85 Objective Exam Last Set of Vital Signs Vital Signs Date Time Temp Pulse Resp B/P (MAP) Pulse Ox O2 Delivery O2 Flow Rate FiO2 07/20/19 14:05 92 Room Air 07/20/19 13:00 89 07/20/19 12:00 99.2 20 99/67 (78) 07/18/19 20:00 0.00 07/18/19 01:30 21 Capillary Refill : Less Than 3 Seconds I&O Intake and Output 07/20/19 00:00 Intake Total 1360 ml Output Total 1100 ml Balance 260 ml Intake Oral 1360 ml Output Urine Total 1100 ml # Voids 2 # Bowel Movements 2 General: Alert, No Acute Distress Lungs: Clear to Auscultation, Normal Air Movement Heart: Regular Rate, No Murmurs Abdomen: Normal Bowel Sounds, Soft Extremities: No Edema Neuro: Normal Speech Results/Procedures Lab Laboratory Tests 07/19/19 16:11: Glucometer 265H 07/19/19 21:17: Glucometer 419*H 07/20/19 05:28: Glucometer 128H 07/20/19 05:55: White Blood Count 13.6H, Red Blood Count 4.32L, Hemoglobin 11.0#L, Hematocrit 35, Mean Corpuscular Volume 80, Mean Corpuscular Hemoglobin 25, Mean Corpuscular Hemoglobin Concent 32, Red Cell Distribution Width 15.6H, Platelet Count 507H, Mean Platelet Volume 10.4, Sodium Level 134L, Potassium Level 4.4, Chloride Level 97L, Carbon Dioxide Level 28, Anion Gap 9, Blood Urea Nitrogen 30H, Creatinine 0.70, Estimat Glomerular Filtration Rate > 60, BUN/Creatinine Ratio 43, Glucose Level 116H, Calcium Level 8.8, Magnesium Level 1.3L 07/20/19 12:15: Glucometer 159H Microbiology 07/19/19 Blood Culture - Preliminary, Resulted No growth 07/17/19 Urine Culture - Final, Complete 3 or more isolates Radiology CT chest 07/17 "IMPRESSION: 1. Cardiac enlargement with large bilateral pleural effusions and findings compatible with CHF. 2. No pulmonary embolism or aortic pathology identified. 3. Not mentioned above: Nodular infiltrate in the right anterior lung base, probably subsegmental atelectasis. Recommend followup to assure resolution." Assessment/Plan Assessment/Plan (1) Acute exacerbation of congestive heart failure Status: Acute Assessment & Plan: BNP above 3000. On room air. Receiving IV lasix BID. C ardiology consulted, appreciate recommendations. 07/20- cath today with nonobstructive cardiomyopathy, waiting on Lifevest. Qualifiers: Qualified Codes: I50.9 - Heart failure, unspecified (2) Acute hyperglycemia Status: Acute Assessment & Plan: Improving with insulin overnight, resume home insulin and ad just as needed. 07/19- improving, had hypoglycemia today, will adjust insulin as needed. (3) Thrombocytosis Status: Acute Assessment & Plan: Likely reactive, monitor. (4) Hyponatremia Status: Acute Assessment & Plan: Secondary to hyperglycemia, monitor. Improving (5) Left ventricular thrombus Status: Chronic Assessment & Plan: History of, was to be on Eliquis, has not filled since Jul due to cost. Will restart for now. (6) IDDM (insulin dependent diabetes mellitus) Status: Chronic (7) DVT prophylaxis Status: Acute Assessment & Plan: Eliquis Clinical Quality Measures DVT/VTE Risk/Contraindication: Risk Factor Score Per Nursin RFS Level Per Nursing on Admit: 4+=Very High JERILYN RAMESH MD Jul 20, 2019 15:43
[2019-07-20] MEDS: cefTRIAXone FOR IV USE 1,000 MG in WATER (STERILE) FOR INJECTION 10 ML IV SCH (15:45)
[2019-07-20] MEDS: NS IV 1000 ML 1,000 ML IV SCH ×2 (15:45→21:19)
[2019-07-21] MEDS: RT-ALBUTEROL/IPRATROPIUM 3 ML (DUONEB) VIAL INH SCH ×3 (03:14→19:50)
[2019-07-21 04:20] VITALS: BP 103/61
[2019-07-21] MEDS: inSUlin ASPART (NovoLOG) 1 UNIT/0.01 ML (CHARGE PER UNIT) SC SCH ×5 (06:34→17:23)
[2019-07-21] MEDS: FUROSEMIDE 40 MG/4 ML INJ (LASIX) IV SCH ×2 (06:35→17:22)
[2019-07-21 06:44] LABS: HEMOGLOBIN 11.5 G/DL (11.5-16.0); MEAN PLATELET VOLUME 10.4 FL (7.4-10.4); RED CELL DISTRIBUTION WIDTH 15.6 % (10.0-14.5); WHITE BLOOD COUNT 22.2 10^3/uL (4.3-11.0)
[2019-07-21 07:06] LABS: CALCIUM 8.7 MG/DL (8.5-10.1); CREATININE SERUM 1.1 MG/DL (0.60-1.30); MAGNESIUM 2.1 MG/DL (1.6-2.4); POTASSIUM 4.6 MMOL/L (3.6-5.0)
[2019-07-21 08:00] VITALS: BP 99/62
[2019-07-21] MEDS: NS IV 1000 ML 1,000 ML IV SCH (08:18)
--- NOTE | 2019-07-21 09:05 | NUR ---
PRIOR TO A.M. MEDICATIONS PULSE WAS 101 TEMP WAS 99.0 AND B/P WAS 99/62.
[2019-07-21] MEDS: AZITHROMYCIN 250 MG TAB (ZITHROMAX) PO SCH (09:15)
[2019-07-21] MEDS: APIXABAN 5 MG (ELIQUIS) TABLET PO SCH ×2 (09:15→20:40)
[2019-07-21] MEDS: ASPIRIN E.C. 81 MG (ECOTRIN) TAB PO SCH (09:15)
[2019-07-21] MEDS: ACETAMINOPHEN 500 MG TAB (TYLENOL) PO PRN (09:15)
[2019-07-21] MEDS: lisINopril 5 MG (PRINIVIL) TABLET PO SCH (09:17)
--- NOTE | 2019-07-21 10:15 | Physical Therapy Progress Note ---
Therapy Progress Note Unsuccessful attempted visit, pt refusing PT session this morning. States her sugar is too low and is trying to get it up. Pt states her sugar is at 63. JOSE FRANCISCO CULLEN FAST FOOD SHIFT LEAD Jul 21, 2019 10:15
--- NOTE | 2019-07-21 11:32 | NUR ---
BLOOD SUGAR 36, PATIENT GIVEN APPLE JUICE AND CRANBERRY JUICE WITH ADDED SUGAR AND ORDERED ROOM SERVICE TRAY. WILL CONTINUE TO MONITOR.
[2019-07-21 12:00] VITALS: BP 157/88
[2019-07-21] MEDS: CARVEDILOL 3.125 MG (COREG) TABLET PO SCH ×2 (12:41→20:40)
--- NOTE | 2019-07-21 13:41 | Progress Note - Hospitalist ---
Subjective HPI/CC On Admission Date Seen by Provider: Jul 21, 2019 Time Seen by Provider: 10:30 Subjective/Events-last exam Patient denies shortness of breath or chest pain she's had no lightheadedness palpitations presyncope or syncope. She states she would like to go home. Focused Exam Lactate Level 07/19/19 13:50: Lactic Acid Level 1.85 Objective Exam Vital Signs Vital Signs Date Time Temp Pulse Resp B/P (MAP) Pulse Ox O2 Delivery O2 Flow Rate FiO2 07/21/19 12:29 84 07/21/19 12:00 20 157/88 (111) 95 07/21/19 08:00 Room Air 07/21/19 08:00 99.0 07/18/19 20:00 0.00 07/18/19 01:30 21 Capillary Refill : NONE General Appearance: No Apparent Distress, Chronically ill Cardiovascular: Regular Rate, Rhythm, Gallop/S3 Gastrointestinal: Normal Bowel Sounds, No Organomegaly, No Pulsatile Mass, Non Tender, Soft Extremity: Normal Capillary Refill, Normal Inspection, Normal Range of Motion, Non Tender, No Calf Tenderness, No Pedal Edema Results/Procedures Lab Laboratory Tests 07/21/19 06:28 Patient resulted labs reviewed. Assessment/Plan Assessment and Plan Assess & Plan/Chief Complaint CHF exacerbation with severe hyperglycemia requiring intensive therapy at high risk for decompensation. (1) Acute exacerbation of congestive heart failure Status: Acute Assessment & Plan: Normal epicardial coronary arteries indicative of nonischemic cardiomyopathy suspect history of alcohol abuse which may be the underlying etiology currently congestive heart failure appears to be compensated waiting on LifeVest discharge per cardiology. Qualifiers: Qualified Codes: I50.9 - Heart failure, unspecified (2) Acute hyperglycemia Status: Acute Assessment & Plan: Improving with insulin overnight, resume home insulin and adjust as needed. (3) Thrombocytosis Status: Acute Assessment & Plan: Likely reactive, monitor. (4) Hyponatremia Status: Acute Assessment & Plan: Secondary to hyperglycemia, monitor. (5) Left ventricular thrombus Status: Chronic Assessment & Plan: History of, was to be on Eliquis, has not filled since Jul due to cost. Will restart for now. (6) IDDM (insulin dependent diabetes mellitus) Status: Very labile blood sugars with mild hypoglycemia we will decrease bolus therapy and stop additional sliding scale insulin. (7) DVT prophylaxis Status: Acute Assessment & Plan: [facility]YOU Clinical Quality Measures DVT/VTE Risk/Contraindication: Risk Factor Score Per Nursin RFS Level Per Nursing on Admit: 4+=Very High MARLEE BRADSHAW MD Jul 21, 2019 13:41
[2019-07-21] MEDS: cefTRIAXone FOR IV USE 1,000 MG in WATER (STERILE) FOR INJECTION 10 ML IV SCH (14:14)
--- NOTE | 2019-07-21 14:33 | Progress Note - Cardiology ---
Cardiology SOAP Progress Note Subjective: No cp or palp or syncope Shortness of breath present with mild to mod activity Objective: I&O/Vital Signs 07/21/19 07/21/19 07/21/19 07/21/19 04:20 06:46 06:53 07:00 Temp 99.2 Pulse 107 100 100 Resp 20 B/P (MAP) 103/61 (75) Pulse Ox 95 94 95 O2 Delivery Room Air Room Air 07/21/19 07/21/19 07/21/19 07/21/19 08:00 08:00 12:00 12:29 Temp 99.0 Pulse 97 85 84 Resp 18 20 B/P (MAP) 99/62 (74) 157/88 (111) Pulse Ox 96 95 O2 Delivery Room Air 07/21/19 00:00 Intake Total 1770 ml Output Total 2975 ml Balance -1205 ml Weight (Pounds): 171 Weight (Ounces): 0.7 Weight (Calculated Kilograms): 77.376365 Constitutional: appears stated age, AAO x 3, well-developed, well-nourished Respiratory: No accessory muscle use; other (good bilat air entry, dimished at the bases) Cardiovascular: regular rate-rhythm, S1 and S2, systolic murmur (soft AMOL at card base) Gastrointestional: No tender; soft; No guarding, No rebound; audible bowel sounds Extremities: other (L BKA); No clubbing, No cyanosis, No significant edema Neurologic/Psychiatric: oriented x 3, other (moves all limbs equally) Skin: No rash on exposed areas, No ulcerations on exposed areas Results/Procedures: Labs Laboratory Tests 07/20/19 16:14: Glucometer 134H 07/20/19 21:08: Glucometer 125H 07/21/19 05:40: Glucometer 453*H 07/21/19 06:27: Glucometer 328H 07/21/19 06:28: White Blood Count 22.2H, Red Blood Count 4.46, Hemoglobin 11.5, Hematocrit 36, Mean Corpuscular Volume 81, Mean Corpuscular Hemoglobin 26, Mean Corpuscular Hemoglobin Concent 32, Red Cell Distribution Width 15.6H, Platelet Count 441H, Mean Platelet Volume 10.4, Sodium Level 134L, Potassium Level 4.6, Chloride Level 94L, Carbon Dioxide Level 23, Anion Gap 17H, Blood Urea Nitrogen 36H, Creatinine 1.10, Estimat Glomerular Filtration Rate 52, BUN/Creatinine Ratio 33, Glucose Level 344H, Calcium Level 8.7, Magnesium Level 2.1 07/21/19 09:10: Glucometer 63L 07/21/19 11:17: Glucometer 36*L 07/21/19 12:36: Glucometer 80 Microbiology 07/19/19 Blood Culture - Preliminary, Resulted No growth 07/17/19 Urine Culture - Final, Complete 3 or more isolates Laboratory Tests 07/20/19 05:55 07/21/19 06:28 A/P: Assessment: Non-ischemic cardiomyopathy. Echo of 07/18/19: LVEF 25-30%, mod enlargement of LA, PASP 51 mmHg; Card cath of 07/20/19: no CAD, marked global hypokinesis, LVEDP 11 mmHg Ac systolic CHF due to cardiomyopathy L pleural effusion DM II Hyponatremia, likely due to CHF and hyperglycemia L BKA Plan: * I reviewed her records, interviewed her, and examined her * Continue diuretics * Continue bb and ROSELINE-inhib * Reduce iv fluids * Monitor labs * Await Life Vest * Consider L thoracentesis MARLON ROBERSON MD FACP FAC CCDS Jul 21, 2019 14:33
[2019-07-21 16:37] VITALS: BP 112/72
[2019-07-21 20:00] VITALS: BP 119/74
[2019-07-22 00:50] VITALS: BP 103/66
[2019-07-22 05:24] VITALS: BP 107/69
[2019-07-22] MEDS: FUROSEMIDE 40 MG/4 ML INJ (LASIX) IV SCH (06:27)
[2019-07-22] MEDS: inSUlin ASPART (NovoLOG) 1 UNIT/0.01 ML (CHARGE PER UNIT) SC SCH ×2 (07:57→12:20)
[2019-07-22 08:00] VITALS: BP 108/68
[2019-07-22] MEDS: AZITHROMYCIN 250 MG TAB (ZITHROMAX) PO SCH (08:53)
[2019-07-22] MEDS: ASPIRIN E.C. 81 MG (ECOTRIN) TAB PO SCH (08:53)
[2019-07-22] MEDS: APIXABAN 5 MG (ELIQUIS) TABLET PO SCH (08:53)
[2019-07-22] MEDS: ACETAMINOPHEN 500 MG TAB (TYLENOL) PO PRN (08:53)
[2019-07-22] MEDS: CARVEDILOL 3.125 MG (COREG) TABLET PO SCH (08:53)
[2019-07-22] MEDS: NS IV 1000 ML 1,000 ML IV SCH (08:55)
[2019-07-22] MEDS: lisINopril 5 MG (PRINIVIL) TABLET PO SCH (09:12)
[2019-07-22] MEDS: RT-ALBUTEROL/IPRATROPIUM 3 ML (DUONEB) VIAL INH SCH (09:25)
[2019-07-22 12:00] VITALS: BP 108/72
--- NOTE | 2019-07-22 12:27 | Progress Note - Cardiology ---
Cardiology SOAP Progress Note Subjective: No cp or palp or syncope Mod exertional shortness of breath Has had Life Vest placed. Wishes to go home Objective: I&O/Vital Signs 07/22/19 07/22/19 07/22/19 07/22/19 00:50 01:00 05:24 07:00 Temp 98.6 97.2 Pulse 94 92 95 93 Resp 18 20 B/P (MAP) 103/66 (78) 107/69 (82) Pulse Ox 20 96 07/22/19 07/22/19 07/22/19 07/22/19 08:00 08:07 08:53 09:25 Temp 101.1 101.2 Pulse 98 Resp 20 B/P (MAP) 108/68 (81) Pulse Ox 96 98 O2 Delivery Room Air Room Air O2 Flow Rate 0.00 07/22/19 09:38 Temp 97.6 07/22/19 00:00 Intake Total 2290 ml Output Total 800 ml Balance 1490 ml Weight (Pounds): 172 Weight (Ounces): 1.0 Weight (Calculated Kilograms): 78.732102 Constitutional: appears stated age, AAO x 3, well-developed, well-nourished Respiratory: No accessory muscle use; other (good bilat air entry, dimished at the bases) Cardiovascular: regular rate-rhythm, S1 and S2, systolic murmur (soft AMOL at card base) Gastrointestional: No tender; soft; No guarding, No rebound; audible bowel sounds Extremities: other (L BKA); No clubbing, No cyanosis, No significant edema Neurologic/Psychiatric: oriented x 3, other (moves all limbs equally) Skin: No rash on exposed areas, No ulcerations on exposed areas Results/Procedures: Labs Laboratory Tests 07/21/19 12:36: Glucometer 80 07/21/19 16:28: Glucometer 332H 07/21/19 18:10: Glucometer 344H 07/21/19 20:44: Glucometer 320H 07/22/19 05:36: Glucometer 121H 07/22/19 07:56: Glucometer 134H 07/22/19 11:09: Glucometer 168H Microbiology 07/19/19 Blood Culture - Preliminary, Resulted No growth 07/22/19 Influenza Types A,B Antigen (REG) - Final, Complete 07/20/19 Urine Culture - Final, Complete 3 or more isolates Laboratory Tests 07/21/19 06:28 A/P: Assessment: Leucocytosis of undetermined etiology, [place] [facility] [place] Non-ischemic cardiomyopathy. Echo of 07/18/19: LVEF 25-30%, mod enlargement of LA, PASP 51 mmHg; Card cath of 07/20/19: no CAD, marked global hypokinesis, LVEDP 11 mmHg Ac systolic CHF due to cardiomyopathy L pleural effusion DM II Hyponatremia, likely due to CHF and hyperglycemia L BKA Plan: * Ok for d/c from card standpoint (on current cardiac regimen and on Life Vest) * F/u with Dr Suarez next week * I answered her CV-related questions MARLON ROBERSON MD FACP FAC CCDS Jul 22, 2019 12:27
[2019-07-22] MEDS ORDERED: FURO40TA4 PO (13:44)
[2019-07-22] MEDS ORDERED: LISI2.5T PO (13:44)
[2019-07-22 14:15] LABS: BASOPHILS % (AUTO) 0 % (0-10); EOSINOPHILS # (AUTO) 0.1 10^3/uL (0.0-0.3); EOSINOPHILS % (AUTO) 0 % (0-10); HEMATOCRIT 34 % (35-52); HEMOGLOBIN 10.4 G/DL (11.5-16.0); LYMPHOCYTES # (AUTO) 1.4 X 10^3 (1.0-4.0); LYMPHOCYTES % (AUTO) 8 % (12-44); MEAN CORPUSCULAR HEMOGLOBIN 25 PG (25-34); MEAN CORPUSCULAR HGB CONC 31 G/DL (32-36); MEAN CORPUSCULAR VOLUME 82 FL (80-99); MONOCYTES # (AUTO) 1.2 X 10^3 (0.0-1.0); MONOCYTES % (AUTO) 6 % (0-12); NEUTROPHILS # (AUTO) 16.1 X 10^3 (1.8-7.8); NEUTROPHILS % (AUTO) 86 % (42-75); PLATELET COUNT 497 10^3/uL (130-400); RED CELL DISTRIBUTION WIDTH 15.7 % (10.0-14.5); WHITE BLOOD COUNT 18.8 10^3/uL (4.3-11.0)
[2019-07-22] MEDS: cefTRIAXone FOR IV USE 1,000 MG in WATER (STERILE) FOR INJECTION 10 ML IV SCH (14:27)
--- NOTE | 2019-07-22 14:49 | Discharge Summary ---
Diagnosis/Chief Complaint Date of Admission Jul 17, 2019 at 22:45 Date of Discharge 07/22/19 Discharge Date: Jul 22, 2019 Primary Care Dave Cesar MD Discharge Summary Discharge Physical Exam Allergies: Coded Allergies: Penicillins (Verified Allergy, Unknown, 04/06/19) Vitals & I&Os Vital Signs Date Time Temp Pulse Resp B/P (MAP) Pulse Ox O2 Delivery O2 Flow Rate FiO2 07/22/19 13:00 88 07/22/19 12:00 99.0 20 108/72 (84) 98 07/22/19 09:25 Room Air 07/22/19 08:07 0.00 07/18/19 01:30 21 General Appearance: No Apparent Distress Respiratory: No Accessory Muscle Use, No Respiratory Distress, Other (Decreased breath sounds in left base with a few rales chest clear elsewhere.) Cardiovascular: Regular Rate, Rhythm, No Edema, No Gallop, No JVD, No Murmur Skin: Normal Color, Warm/Dry Hospital Course Was the Problem List Reviewed?: Yes Patient is a poor historian who presented to the hospital with at least a several day history of shortness of breath. She had no reported sputum production but did have a cough with orthopnea. She denied pedal edema. Her BNP level was around 3000 as I recall with evidence for some pulmonary vascular congestion on her chest x-ray as well as a left basilar infiltrate versus atelectasis with a small pleural effusion. IV diuretics were initiated in addition to antibiotics for community-acquired pneumonia Rocephin and a azithromycin. Subsequent echo revealed an ejection fraction of 25-30 percent with global left ventricular hypokinesis. The left atrium was moderately dilated poorly 4.8 cm in diameter moderate tricuspid and mild mitral insufficiency were noted with an elevated estimated pulmonary systolic pressure of 51. The right ventricle was reportedly not dilated with mild left ventricular dilatation RV function was reportedly normal. Subsequent cardiac catheterization revealed normal epicardial coronary arteries consistent with nonischemic cardiomyopathy. Patient's blood sugar with underlying insulin requiring diabetes2 was rather labile with some mild hypoglycemia during her hospital stay. Her white count actually went up during her hospital stay as high as 20,000. It was still elevated at 18,000 and she was having fever the morning of her discharge 101.1. She stated that she felt fine that her appetite was normal denying chest pain or shortness of breath and she was adamant about discharge. She still had some diminished breath sounds in left base with rales and we discussed the possibility of pneumonia with empyema as being a concern. Advised that she stay continue antibiotics repeat chest x-ray evaluation and pulmonary consultation but she refused stating that she would leave AMA. She stated that she would return if she was having chills or fever but she denies. She was set up with a LifeVest and we also discussed the importance of wearing this and following up with Dr. Suarez this week and Dr. Quiroz in 1-2 weeks. Discussed she did have an empyema that she can expect continued fever or loss of appetite weakness and increased shortness of breath and further stress on her already damaged heart. Discussed the life-threatening nature of untreated infection and the importance of keeping her follow-up appointments as well as going to the pharmacy and picking up medications. Her potassium remained normal despite IV furosemide. New medications will include furosemide 40 mg daily carvedilol 3.125 mg twice a day lisinopril 5 mg daily and thus far has not required potassium so this will not be on her list. Will give a week's worth of Omnicef 300 mg twice a day.. Labs (last 24 hrs) Laboratory Tests 07/21/19 16:28: Glucometer 332H 07/21/19 18:10: Glucometer 344H 07/21/19 20:44: Glucometer 320H 07/22/19 05:36: Glucometer 121H 07/22/19 07:56: Glucometer 134H 07/22/19 11:09: Glucometer 168H 07/22/19 14:01: White Blood Count 18.8H, Red Blood Count 4.16L, Hemoglobin 10.4L, Hematocrit 34L , Mean Corpuscular Volume 82, Mean Corpuscular Hemoglobin 25, Mean Corpuscular Hemoglobin Concent 31L, Red Cell Distribution Width 15.7H, Platelet Count 497H, Mean Platelet Volume 10.0, Neutrophils (%) (Auto) 86H, Lymphocytes (%) (Auto) 8L , Monocytes (%) (Auto) 6, Eosinophils (%) (Auto) 0, Basophils (%) (Auto) 0, Neutrophils # (Auto) 16.1H, Lymphocytes # (Auto) 1.4, Monocytes # (Auto) 1.2H, Eosinophils # (Auto) 0.1, Basophils # (Auto) 0.0 Microbiology 07/19/19 Blood Culture - Preliminary, Resulted No growth 07/22/19 Influenza Types A,B Antigen (REG) - Final, Complete 07/20/19 Urine Culture - Final, Complete 3 or more isolates Patient resulted labs reviewed. Pending Labs Microbiology Date/Time Source Procedure Growth Status 07/22/19 11:18 Nasal Aspirate Influenza Types A,B Antigen (REG) - Final Complete Laboratory Tests 07/22/19 07:56: Glucometer 134 07/22/19 11:09: Glucometer 168 07/22/19 14:01: White Blood Count 18.8, Red Blood Count 4.16, Hemoglobin 10.4, Hematocrit 34, Mean Corpuscular Volume 82, Mean Corpuscular Hemoglobin 25, Mean Corpuscular Hemoglobin Concent 31, Red Cell Distribution Width 15.7, Platelet Count 497, Mean Platelet Volume 10.0, Neutrophils (%) (Auto) 86, Lymphocytes (%) (Auto) 8, Monocytes (%) (Auto) 6, Eosinophils (%) (Auto) 0, Basophils (%) (Auto) 0, Neutrophils # (Auto) 16.1, Lymphocytes # (Auto) 1.4, Monocytes # (Auto) 1.2, Eosinophils # (Auto) 0.1, Basophils # (Auto) 0.0, Neutrophils % (Manual) [Pending] Discussion & Recommendations Discharge Planning: >30 minutes discharge planning Discharge Home Medications: Active Scripts Active Furosemide 40 Mg Tablet 40 Mg PO DAILY 30 Days Lisinopril 2.5 Mg Tablet 5 Mg PO DAILY 30 Days Reported Carvedilol 3.125 Mg Tablet 3.125 Mg PO BID Levemir Flextouch (Insulin Detemir) 100 Unit/1 Ml Insuln.pen 15-20 Unit SQ HS Novolog Flexpen (Insulin Aspart) 300 Units/3 Ml Solution 12 Units SQ TIDAC Multivitamins (Multivitamin) 1 Each Tablet 1 Tab PO DAILY Instructions to patient/family Please see electronic discharge instructions given to patient. Clinical Quality Measures DVT/VTE Risk/Contraindication: Risk Factor Score Per Nursin RFS Level Per Nursing on Admit: 4+=Very High Copy Copies To 1: Taras SUAREZ MD Copies To 2: DAVE CESAR MD, MARK D MD Jul 22, 2019 14:49
[2019-07-22] MEDS ORDERED: CEFD300C3 PO (14:51)
[2019-07-22 15:11] LABS: BAND NEUTROPHILS 1 %; BASOPHILS % (MANUAL) 0 %; EOSINOPHILS % (MANUAL) 0 %; LYMPHOCYTES % (MANUAL) 8 %; MONOCYTES % (MANUAL) 9 %; NEUTROPHILS % (MANUAL) 82 %; RBC MORPH NORMAL
== END 2019-07-22 15:09 | disposition home or self-care (01) | DRG 286 ==
LOC: EDUNIT# 18:32 → ER 18:33 → 4TH 22:45
PROVIDERS: ADMIT Family Medicine; ATTEND Family Medicine
PROC: 4A023N7 Measurement of Cardiac Sampling and Pressure, Left Heart, Percutaneous Approach (ICD-10-PCS; principal; 2019-07-20)
PROC: B2111ZZ Fluoroscopy of Multiple Coronary Arteries using Low Osmolar Contrast (ICD-10-PCS; 2019-07-20)
PROC: B2151ZZ Fluoroscopy of Left Heart using Low Osmolar Contrast (ICD-10-PCS; 2019-07-20)
DX: I50.21 Acute systolic (congestive) heart failure (principal); J96.00 Acute respiratory failure, unspecified whether with hypoxia or hypercapnia; I42.0 Dilated cardiomyopathy; J18.9 Pneumonia, unspecified organism; E11.65 Type 2 diabetes mellitus with hyperglycemia; E11.40 Type 2 diabetes mellitus with diabetic neuropathy, unspecified; E87.1 Hypo-osmolality and hyponatremia; R31.9 Hematuria, unspecified; M79.661 Pain in right lower leg; I27.29 Other secondary pulmonary hypertension; F17.210 Nicotine dependence, cigarettes, uncomplicated; J44.9 Chronic obstructive pulmonary disease, unspecified; E11.51 Type 2 diabetes mellitus with diabetic peripheral angiopathy without gangrene; E11.649 Type 2 diabetes mellitus with hypoglycemia without coma; G40.909 Epilepsy, unspecified, not intractable, without status epilepticus; G43.909 Migraine, unspecified, not intractable, without status migrainosus; E83.51 Hypocalcemia; G47.9 Sleep disorder, unspecified; F41.9 Anxiety disorder, unspecified; F31.9 Bipolar disorder, unspecified; F20.9 Schizophrenia, unspecified; F13.11 Sedative, hypnotic or anxiolytic abuse, in remission; K21.9 Gastro-esophageal reflux disease without esophagitis; M19.91 Primary osteoarthritis, unspecified site; M54.9 Dorsalgia, unspecified; Z89.512 Acquired absence of left leg below knee; Z99.81 Dependence on supplemental oxygen; Z79.4 Long term (current) use of insulin; Z86.711 Personal history of pulmonary embolism; Z86.718 Personal history of other venous thrombosis and embolism
CPT/HCPCS: 36415; 71046; 71275; 80048; 80053; 81000; 82805; 82962; 83605; 83735; 83880; 84484; 85007; 85025; 85027; 85610; 85730; 86141; 87040; 87088; 87804; 93005; 93306; 93458; 94640; 94664; 94760; 96361; 96372; 96374

== ENCOUNTER 2019-08-09 20:07 | Inpatient (IN) | payer OTHER ==
[2019-08-09] VITALS (7 sets, daily range): BP systolic 121–135; BP diastolic 63–89
[~2019-08-09] VITALS: Ht 180.3 cm; Wt 92.1 kg
[~2019-08-09 20:07] MED LIST changes: +ASPI-983 PO; +MULT1TAB69 PO
[2019-08-09] MEDS ORDERED: RT-ALBUTEROL/IPRATROPIUM 3 ML (DUONEB) VIAL INH ONE (20:15)
--- NOTE | 2019-08-09 20:19 | NUR ---
Initial blood glucose too high to read. NORMA [facility] notified.
--- NOTE | 2019-08-09 20:22 | ED General ---
General Stated Complaint: SOB,SWELLING IN LEGS Source of Information: Patient Exam Limitations: No Limitations History of Present Illness Date Seen by Provider: Aug 09, 2019 Time Seen by Provider: 20:21 Initial Comments To ER with shortness of breath and swelling in her legs for the past 2 days. No fevers or chills. She has a history of insulin-dependent diabetes, states that her blood sugar runs in the 400 range. She was here July 17 for CHF exacerbation and had echocardiogram done showing dilated cardiomyopathy with ejection fraction of 25-30 percent. Timing/Duration: 1-2 Days Severity: Moderate Associated Systoms: No Chest Pain; Shortness of Air Allergies and Home Medications Allergies Coded Allergies: Penicillins (Verified Allergy, Unknown, 04/06/19) Home Medications Carvedilol 3.125 Mg Tablet, 3.125 MG PO BID, (Reported) Cefdinir 300 Mg Capsule, 300 MG PO BID Prescribed by: MARLEE BRADSHAW on 07/22/19 1451 Furosemide 40 Mg Tablet, 40 MG PO DAILY Prescribed by: MARLEE BRADSHAW on 07/22/19 1344 Insulin Aspart 300 Units/3 Ml Solution, 12 UNITS SQ TIDAC, (Reported) Insulin Detemir 100 Unit/1 Ml Insuln.pen, 15-20 UNIT SQ HS, (Reported) Lisinopril 2.5 Mg Tablet, 5 MG PO DAILY Prescribed by: MARLEE BRADSHAW on 07/22/19 1344 Multivitamin 1 Each Tablet, 1 TAB PO DAILY, (Reported) Patient Home Medication List Home Medication List Reviewed: Yes Review of Systems Review of Systems Constitutional: see HPI EENTM: see HPI Respiratory: see HPI, cough, short of breath Cardiovascular: no symptoms reported Genitourinary: no symptoms reported Musculoskeletal: see HPI Skin: no symptoms reported Psychiatric/Neurological: No Symptoms Reported Hematologic/Lymphatic: No Symptoms Reported Past Yhjegzg-Cdjnzn-Otacmp Hx Patient Social History Drug of Choice: Meth and benzo's Type Used: Cigarettes Former Smoker, Quit: Aug 07, 2016 2nd Hand Smoke Exposure: Yes Recent Hopitalizations: Yes (2019) Immunizations Up To Date Tetanus Booster (TDap): Less than 5yrs PED Vaccines UTD: No Date of Pneumonia Vaccine: Jun 12, 2008 Date of Influenza Vaccine: Sep 08, 2018 Seasonal Allergies Seasonal Allergies: No Past Medical History Surgeries: Yes Amputation, Appendectomy, Section, Gallbladder, Hysterectomy, Oophorectomy, Orthopedic, Tubal Ligation, Vascular Surgery Respiratory: Yes Pneumonia, COPD 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; 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) Deep Vein Thrombosis, Peripheral Vascular Neurological: Yes (PSEUDOSEIZURES) Concussion, Headaches /Migraines, Neuropathy, Seizure Disorder, Traumatic Brain Injury 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 Disorders: No 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 Disorders: Denies 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 History: Hysterectomy, Menopausal Sexually Transmitted Disease: No HIV/AIDS: No Genitourinary: Yes Bladder Infection, Kidney Stones, Renal Failure, UTI-Chronic Gastrointestinal: Yes Gastroesophageal Reflux Musculoskeletal: Yes (L2 COMPRESSION FX 10/17/17) Degenerate Disk Disease, Arthritis, Back Injury, Chronic Back Pain, Fractures Endocrine: Yes (NON-COMPLIANCE; DKA) Diabetes, Insulin dep, Hypothyroidsim HEENT: No Cancer: No Psychosocial: Yes (POLYSUBSTANCE ABUSE) Pseudo Seizures, Sleep Difficulties, Anxiety, Bipolar, Schizophrenia, Depression Integumentary: Yes (MRSA ABSCESSES) Blood Disorders: Yes (iron deficiency anemia) Adverse Reaction/Blood Tranf: No Family Medical History Diabetes mellitus 19 FATHER 19 MOTHER G8 BROTHER G8 SISTER Myocardial infarction 19 MOTHER Physical Exam Vital Signs Vital Signs - First Documented 08/09/19 20:07 Temp 37.0 Pulse 93 Resp 19 B/P (MAP) 137/73 (94) Pulse Ox 96 O2 Delivery Room Air Capillary Refill : Height, Weight, BMI Height: 5'11.00" Weight: 172lbs. 1.0oz. 78.001940uc; 24.1 BMI Method:Estimated General Appearance: No Apparent Distress, WD/WN Eyes: Bilateral Eye Normal Inspection, Bilateral Eye PERRL, Bilateral Eye EOMI Neck: Full Range of Motion, Normal Inspection Respiratory: No Accessory Muscle Use, No Respiratory Distress Gastrointestinal: Normal Bowel Sounds, Non Tender, Soft Extremity: Normal Capillary Refill, Normal Inspection, Other (left below the knee amputation, swelling +2 to +3 on the right foot) Neurologic/Psychiatric: Alert, Oriented x3 Skin: Normal Color, Warm/Dry Progress/Results/Core Measures Suspected Sepsis SIRS Temperature: Pulse: Respiratory Rate: Laboratory Tests 08/09/19 20:45: White Blood Count 7.1 Blood Pressure / Mean: Laboratory Tests 08/09/19 20:18: Creatinine 1.20, Total Bilirubin 0.4 08/09/19 20:45: Platelet Count 463H Results/Orders Lab Results Laboratory Tests Test 08/09/19 20:18 08/09/19 20:19 08/09/19 20:45 Range/Units Sodium Level 131 L 135-145 MMOL/L Potassium Level 4.1 3.6-5.0 MMOL/L Chloride Level 95 L 98-107 MMOL/L Carbon Dioxide Level 28 21-32 MMOL/L Anion Gap 8 5-14 MMOL/L Blood Urea Nitrogen 11 7-18 MG/DL Creatinine 1.20 0.60-1.30 MG/DL Estimat Glomerular Filtration Rate 47 BUN/Creatinine Ratio 9 Glucose Level 777 *H 70-105 MG/DL Calcium Level 8.6 8.5-10.1 MG/DL Corrected Calcium 9.3 8.5-10.1 MG/DL Total Bilirubin 0.4 0.1-1.0 MG/DL Aspartate Amino Transf (AST/SGOT) 47 H 5-34 U/L Alanine Aminotransferase (ALT/SGPT) 39 0-55 U/L Alkaline Phosphatase 294 H 40-136 U/L Troponin I 0.056 H <0.028 NG/ML Total Protein 6.4 6.4-8.2 GM/DL Albumin 3.1 L 3.2-4.5 GM/DL Thyroid Stimulating Hormone (TSH) 3.57 0.35-4.94 UIU/ML Glucometer > 600 *H 70-110 MG/DL White Blood Count 7.1 4.3-11.0 10^3/uL Red Blood Count 4.49 4.35-5.85 10^6/uL Hemoglobin 10.9 L 11.5-16.0 G/DL Hematocrit 36 35-52 % Mean Corpuscular Volume 80 80-99 FL Mean Corpuscular Hemoglobin 24 L 25-34 PG Mean Corpuscular Hemoglobin Concent 30 L 32-36 G/DL Red Cell Distribution Width 15.6 H 10.0-14.5 % Platelet Count 463 H 130-400 10^3/uL Mean Platelet Volume 10.7 H 7.4-10.4 FL Neutrophils (%) (Auto) 76 H 42-75 % Lymphocytes (%) (Auto) 15 12-44 % Monocytes (%) (Auto) 8 0-12 % Eosinophils (%) (Auto) 1 0-10 % Basophils (%) (Auto) 0 0-10 % Neutrophils # (Auto) 5.4 1.8-7.8 X 10^3 Lymphocytes # (Auto) 1.1 1.0-4.0 X 10^3 Monocytes # (Auto) 0.5 0.0-1.0 X 10^3 Eosinophils # (Auto) 0.1 0.0-0.3 10^3/uL Basophils # (Auto) 0.0 0.0-0.1 10^3/uL B-Type Natriuretic Peptide 3786.2 H <100.0 PG/ML My Orders Orders - BALWINDER MARIE [employer] Cbc With Automated Diff (08/09/19 20:12) Comprehensive Metabolic Panel (08/09/19 20:12) Ua Culture If Indicated (08/09/19 20:12) Ekg Tracing (08/09/19 20:12) Troponin I (08/09/19 20:12) BNP (08/09/19 20:12) Drug Screen Stat (Urine) (08/09/19 20:12) Chest 1 View, Ap/Pa Only (08/09/19 20:12) Thyroid Stimulating Hormone (08/09/19 20:12) Albuterol/Ipra Inhalation Soln (Duoneb I (08/09/19 20:15) Svn Small Volume Nebulizer (08/09/19 20:12) Ns Iv 500 Ml (Sodium Chloride 0.9%) (08/09/19 20:45) Insulin (Regular) Human (Humulin R (Per (08/09/19 21:00) Insulin Regular Tpn/Drip Only (Humulin R (08/09/19 21:15) Beta Hydroxybutyrate (08/09/19 21:10) Normal Saline (Ns ([place] Bag)) (08/09/19 21:12) Aspirin Chewable Tablet (Baby Aspirin Ch (08/09/19 21:30) Furosemide Injection (Lasix Injection) (08/09/19 21:30) Furosemide Injection (Lasix Injection) (08/09/19 21:30) Medications Given in ED Current Medications Medications Dose Ordered Sig/Vaughn Route Start Time Stop Time Status Last Admin Dose Admin Albuterol/ Ipratropium 3 ml ONCE ONCE INH 08/09/19 20:15 08/09/19 20:16 DC 08/09/19 20:40 3 ML Insulin Human Regular 7 unit ONCE ONCE IV 08/09/19 21:00 08/09/19 21:01 DC 08/09/19 20:58 7 UNIT Vital Signs/I&O 08/09/19 08/09/19 20:07 20:43 Temp 37.0 Pulse 93 Resp 19 B/P (MAP) 137/73 (94) Pulse Ox 96 95 O2 Delivery Room Air Room Air Capillary Refill : Departure Communication (Admissions) Time/Spoke to Consulting Phy: 21:33 The EKG obtained tonight is interpreted by the machine as acute NH. Discussed this with Dr. Suarez as compared with previous EKG, states it is similar, does not represent a STEMI. Additionally, the patient denies chest pain and she's been having shortness of breath for 2 days. Discussed placing a central line with the patient to monitor fluid volume status, she refuses central line placement. States she's had this before and she doesn't want it again. Impression Primary Impression: Hyperglycemia Additional Impression: CHF (congestive heart failure) Disposition: ADMITTED INPATIENT Condition: Stable Admissions Decision to Admit Reason: Admit from ER (General) Decision to Admit/Date: Aug 09, 2019 Time/Decision to Admit Time: 21:24 Departure-Patient Inst. Referrals: [facility] [place] (PCP) Primary Care Physician YANI CESAR MD (Family) Primary Care Physician BALWINDER MARIE APRN Aug 09, 2019 20:22
[2019-08-09] MEDS ORDERED: NS IV 500 ML 500 ML IV SCH (20:45)
--- NOTE | 2019-08-09 20:47 | Diagnostic Imaging Report ---
Portable chest compared to prior study 07/19/2019 INDICATION: Chest tightness and shortness of breath. FINDINGS: There do appear to be chronic interstitial changes within the lungs, these appear more prominent on today's examination with apparent development of bilateral pleural effusions. There is enlargement of the cardiac silhouette. Findings suggest interstitial edema. There is no focal alveolar consolidation. There is some minimal linear atelectasis at the lung bases. There is no pneumothorax. IMPRESSION: 1. Interval increased prominence of pulmonary vascularity as well as apparent bilateral pleural effusions. In the setting of cardiomegaly, this suggests interstitial edema. Dictated by: Dictated on workstation # [id number]
[2019-08-09] MEDS ORDERED: inSUlin (REGULAR) HUMAN 1 UNIT/0.01 ML (CHARGE PER UNIT) IV ONE (21:00)
[2019-08-09 21:01] LABS: HEMATOCRIT 36 % (35-52); HEMOGLOBIN 10.9 G/DL (11.5-16.0); MEAN CORPUSCULAR HEMOGLOBIN 24 PG (25-34); MEAN CORPUSCULAR HGB CONC 30 G/DL (32-36); MEAN CORPUSCULAR VOLUME 80 FL (80-99); MEAN PLATELET VOLUME 10.7 FL (7.4-10.4); NEUTROPHILS % (AUTO) 76 % (42-75); PLATELET COUNT 463 10^3/uL (130-400); RED CELL DISTRIBUTION WIDTH 15.6 % (10.0-14.5); WHITE BLOOD COUNT 7.1 10^3/uL (4.3-11.0)
[2019-08-09 21:02] LABS: BASOPHILS % (AUTO) 0 % (0-10); EOSINOPHILS # (AUTO) 0.1 10^3/uL (0.0-0.3); EOSINOPHILS % (AUTO) 1 % (0-10); LYMPHOCYTES # (AUTO) 1.1 X 10^3 (1.0-4.0); LYMPHOCYTES % (AUTO) 15 % (12-44); MONOCYTES # (AUTO) 0.5 X 10^3 (0.0-1.0); MONOCYTES % (AUTO) 8 % (0-12); NEUTROPHILS # (AUTO) 5.4 X 10^3 (1.8-7.8)
[2019-08-09 21:06] LABS: BILIRUBIN,TOTAL 0.4 MG/DL (0.1-1.0); CALCIUM 8.6 MG/DL (8.5-10.1); CREATININE SERUM 1.2 MG/DL (0.60-1.30); POTASSIUM 4.1 MMOL/L (3.6-5.0)
[2019-08-09 21:07] LABS: ALBUMIN 3.1 GM/DL (3.2-4.5); TOTAL PROTEIN 6.4 GM/DL (6.4-8.2)
[2019-08-09] MEDS ORDERED: NORMAL SALINE 250 ML ONE (21:12)
[2019-08-09] MEDS ORDERED: inSUlin REGULAR TPN/DRIP ONLY 250 UNITS in NORMAL SALINE 250 ML IV SCH (21:15)
[2019-08-09] MEDS ORDERED: ASPIRIN 81 MG CHEW (CHILDREN'S ASA) PO ONE (21:30)
[2019-08-09] MEDS ORDERED: FUROSEMIDE 40 MG/4 ML INJ (LASIX) IVP ONE ×2 (21:30)
[2019-08-09 22:08] LABS: BILIRUBIN,URINE NEGATIVE (NEGATIVE); CLARITY,URINE CLEAR; COLOR,URINE YELLOW; GLUCOSE, URINE (UA) 4+ (NEGATIVE); KETONES,URINE NEGATIVE (NEGATIVE); LEUKOCYTE ESTERASE ,URINE NEGATIVE (NEGATIVE); NITRITE,URINE NEGATIVE (NEGATIVE); PH,URINE 6 (5-9); PROTEIN,URINE 3+ (NEGATIVE); UROBILINOGEN,URINE NORMAL (NORMAL)
[2019-08-09 22:18] LABS: AMORPHOUS SEDIMENT,UR MOD AMOR URATES /LPF; BACTERIA,URINE NEGATIVE /HPF; SQUAMOUS EPITHELIAL CELL,UR RARE /HPF
[2019-08-09 22:21] LABS: AMPHETAMINE SCREEN, URINE NEGATIVE (NEGATIVE); BARBITURATE SCREEN URINE NEGATIVE (NEGATIVE); BENZODIAZEPINES SCREEN URINE NEGATIVE (NEGATIVE); CANNABINOID SCREEN, URINE NEGATIVE (NEGATIVE); COCAINE SCREEN URINE NEGATIVE (NEGATIVE); METHADONE STAT NEGATIVE (NEGATIVE); METHAMPHETAMINE SCREEN URINE S POSITIVE (NEGATIVE); OPIATE SCREEN URINE NEGATIVE (NEGATIVE); OXYCODONE STAT NEGATIVE (NEGATIVE); PROPOXYPHENE STAT NEGATIVE (NEGATIVE); TRICYCLIC ANTIDEPRESSANTS SCRE NEGATIVE (NEGATIVE)
--- NOTE | 2019-08-09 22:27 | NUR ---
REPORT RECEIVED FROM MAYLIN CHICAS RN.
--- NOTE | 2019-08-09 22:40 | NUR ---
ANNI OLIVARES admitted to room CU11-1, with an admitting diagnosis of HYPERGLYCIMIA AND CONGESTIVE HEART FAILURE, on 08/09/19 from ER via [facility], accompanied by NELLY THOMSON. ANNI OLIVARES introduced to surroundings, call light, bed controls, phone, TV, temperature control, lights, meal times, smoking policy, visitor policy, side rail policy, bathrooms and showers. Patient Rights given to patient in the handbook. ANNI OLIVARES verbalizes understanding that [facility] is not responsible for the loss or damage to any personal effects or valuables that are kept in the patients possession during their hospitalization.
[2019-08-09] MEDS ORDERED: 1/2 NS IV SOLUTION 1,000 ML IV ONE (22:46)
[2019-08-09 23:38] LABS: CALCIUM 8.9 MG/DL (8.5-10.1); CREATININE SERUM 1.18 MG/DL (0.60-1.30); POTASSIUM 3.5 MMOL/L (3.6-5.0)
[2019-08-10] VITALS (15 sets, daily range): BP systolic 102–136; BP diastolic 58–88
[2019-08-10 00:57] LABS: BASOPHILS % (AUTO) 1 % (0-10); EOSINOPHILS % (AUTO) 0 % (0-10); HEMATOCRIT 35 % (35-52); HEMOGLOBIN 10.6 G/DL (11.5-16.0); LYMPHOCYTES # (AUTO) 0.8 X 10^3 (1.0-4.0); LYMPHOCYTES % (AUTO) 12 % (12-44); MEAN CORPUSCULAR HEMOGLOBIN 24 PG (25-34); MEAN CORPUSCULAR HGB CONC 30 G/DL (32-36); MEAN CORPUSCULAR VOLUME 80 FL (80-99); MEAN PLATELET VOLUME 10.3 FL (7.4-10.4); MONOCYTES # (AUTO) 0.4 X 10^3 (0.0-1.0); MONOCYTES % (AUTO) 7 % (0-12); NEUTROPHILS % (AUTO) 80 % (42-75); PLATELET COUNT 477 10^3/uL (130-400); RED CELL DISTRIBUTION WIDTH 15.7 % (10.0-14.5); WHITE BLOOD COUNT 6.3 10^3/uL (4.3-11.0)
[2019-08-10] MEDS ORDERED: DEXTROSE 10% IV SOLUTION 1,000 ML IV SCH (01:00)
[2019-08-10] MEDS ORDERED: 1/2 NS IV SOLUTION 1,000 ML IV SCH (01:00)
[2019-08-10] MEDS ORDERED: NS IV 1000 ML X 1 WIDE OPEN IV ONE (01:00)
[2019-08-10] MEDS ORDERED: REGULAR inSUlin DRIP 250 UNITS/NS 250 ML IV SCH ×2 (01:00)
[2019-08-10 01:21] LABS: CALCIUM 8.6 MG/DL (8.5-10.1); CREATININE SERUM 1.11 MG/DL (0.60-1.30); POTASSIUM 3.4 MMOL/L (3.6-5.0)
[2019-08-10] MEDS: POTASSIUM CL 10MEQ/50ML IVPB 50 ML IV SCH ×6 (01:29→09:52)
[2019-08-10] MEDS: D5 1/2 NS IV 1,000 ML IV SCH ×2 (01:32→08:19)
[2019-08-10 05:10] LABS: MAGNESIUM 1.5 MG/DL (1.6-2.4); PHOSPHORUS 2.3 MG/DL (2.3-4.7)
[2019-08-10] MEDS: MAGNESIUM 1 GM/100 ML IVPB 100 ML IV SCH ×2 (05:25→05:26)
[2019-08-10] MEDS ORDERED: MAGNESIUM 1 GM/100 ML IVPB 100 ML IV SCH (06:00)
[2019-08-10] MEDS ORDERED: POTASSIUM CL 10MEQ/50ML IVPB 50 ML IV SCH (06:00)
[2019-08-10] MEDS ORDERED: KCL 20 MEQ TAB (K-DUR) PO SCH (06:00)
--- NOTE | 2019-08-10 06:01 | Diagnostic Imaging Report ---
INDICATION: Followup. CHF. COMPARISON: 08/09/2019 FINDINGS: Single frontal radiographic view of the chest was obtained and again demonstrates mild cardiomegaly and prominence of pulmonary vasculature. Pulmonary interstitium remains mildly prominent as well. Bibasilar effusions are again identified, left larger than right. There is some associated left basilar patchy alveolar airspace disease. No pneumothorax is seen on either side. Osseous structures show no gross acute abnormalities. IMPRESSION: 1. Stable exam of the chest showing cardiomegaly with vascular congestion and probable interstitial pulmonary edema. 2. Stable small bibasilar effusions and probable left basilar atelectasis. Dictated by: Dictated on workstation # [id number]
[2019-08-10] MEDS ORDERED: FUROSEMIDE 40 MG/4 ML INJ (LASIX) IV SCH (07:00)
[2019-08-10 07:12] LABS: BUN/CREATININE RATIO 13; CALCIUM 8.7 MG/DL (8.5-10.1); CARBON DIOXIDE 28 MMOL/L (21-32); CHLORIDE 95 MMOL/L (98-107); CREATININE SERUM 0.84 MG/DL (0.60-1.30); GFR ESTIMATED > 60; GLUCOSE 201 MG/DL (70-105); POTASSIUM 3.5 MMOL/L (3.6-5.0); SODIUM 135 MMOL/L (135-145)
[2019-08-10] MEDS ORDERED: FURO40TA4 PO (10:02)
[2019-08-10] MEDS ORDERED: LISI2.5T PO (10:02)
--- NOTE | 2019-08-10 10:02 | NUR ---
SPOKE WITH THE PATIENT ABOUT HER MEDICATIONS. WE WENT OVER THE LIST FROM HER LAST DISCHARGE AND SHE STATES SHE IS TAKING THEM PRESCRIBED. I CALLED [facility] TO VERIFY WHAT HAS BEEN FILLED RECENTLY: 07-23-19 LISINOPRIL 2.5MG 2 TABS DAILY 07-23-19 FUROSEMIDE 40MG DAILY 06-14-19 COREG 3.125MG BID #60 06-14-19 NOVOLOG 12 UNITS TID AC (STATES SHE USES 10 UNITS WITH MEALS) 06-14-19 LEVEMIR 45 UNITS HS (STATES SHE USES 20 UNITS HS) I NOTED THE PAST DUE FILL DATES ON THE MED REC. SHE STATES SHE TAKES AN OTC [employer] DAILY WELL.
--- NOTE | 2019-08-10 13:10 | Consultation-Cardiology ---
HPI-Cardiology Cardiology Consultation: Date of Consultation 08/10/19 Date of Admission Attending Physician Radha Bo MD Admitting Physician [place]/[facility] Consulting Physician Taras SUAREZ MD HPI: Time Seen by a Provider: 10:00 Chief Complaint: shortness of breath. this is a 49-year-old lady who presented previously with acute systolic congestive heart failure, acute respiratory failure. Echocardiogram done in June 2019 showed an EF of 25-30 percent. She was treated aggressively with IV diuretics. Coronary angiography did not reveal obstructive CAD. Started on cardiomyopathy medications and given a LifeVest for primary prevention of sudden cardiac . However she presents without a lifevest with shortness of breath and bilateral lower extremity swelling. Review of Systems-Cardiology Review of Systems Constitutional: As described under HPI; No As described under HPI, No no symptoms reported, No chills, No fever, No lightheadedness Eyes: No As described under HPI, No no symptoms reported, No blindness, No blurred vision, No contact lenses, No drainage, No decreased acuity, No foreign body sensation, No pain, No vision change Ears/Nose/Throat: No As described under HPI, No no symptoms reported, No chronic hearing loss, No ear discharge, No ear pain, No nasal drainage, No ulcerations Respiratory: No no symptoms reported; As described under HPI; No As described under HPI, No cough; orthopnea; No shortness of breath, No SOB with excertion Cardiovascular: No no symptoms reported; As described under HPI; No As described under HPI, No chest pain, No edema, No irregular heart rate, No lightheadedness, No palpitations Gastrointestinal: No no symptoms reported, No As described under HPI, No abdomen distended, No abdominal pain, No blood streaked bowels, No constipation, No diarrhea, No nausea, No vomiting, No stool coloration changes Genitourinary: No As described under HPI, No burning, No dysuria, No discharge, No frequency, No flank pain, No hematuria, No urgency : Yes : No Skin: No rash, No skin related problems, No ulcerations Psychiatric/Neurological: No anxiety, No depression, No seizure, No focal weakness, No syncope Hematologic: No bleeding abnormalities [id number]-Tbhvzv-Odpayy Hx Patient Social History Alcohol Use: Denies Use Recreational Drug Use: No (SMOKES 1PPD) Drug of Choice: Meth and benzo's Smoking Status: Current Everyday Smoker Type Used: Cigarettes 2nd Hand Smoke Exposure: Yes Recent Foreign Travel: No Recent Infectious Disease Expo: No Hospitalization with Isolation: Denies Immunizations Up To Date Tetanus Booster (TDap): Less than 5yrs Date of Pneumonia Vaccine: Aug 09, 2017 Date of Influenza Vaccine: Sep 08, 2018 Past Medical History PMH As described under Assessment. Family Medical History Family Medical History: She reports her mother passed from an OR in her late 40's. She reports her father had CAD. Family History: Diabetes mellitus 19 FATHER 19 MOTHER G8 BROTHER G8 SISTER FH: COPD (chronic obstructive pulmonary disease) G8 SISTER Myocardial infarction 19 MOTHER Allergies and Home Medications Allergies Coded Allergies: Penicillins (Verified Allergy, Unknown, 04/06/19) Home Medications Carvedilol 3.125 Mg Tablet, 3.125 MG PO BID, (Reported) LAST FILLED #60 06-14-19 Furosemide 40 Mg Tablet, 40 MG PO DAILY, (Reported) Insulin Aspart 300 Units/3 Ml Solution, 10 UNITS SQ TIDAC, (Reported) LAST FILLED 06-14-19 Insulin Detemir 100 Unit/1 Ml Insuln.pen, 20 UNIT SQ HS, (Reported) LAST FILLED 06-14-19 Lisinopril 2.5 Mg Tablet, 5 MG PO DAILY, (Reported) TAKES 2 (2.5MG) TABLETS Multivitamin 1 Each Tablet, 1 TAB PO DAILY, (Reported) Patient Home Medication List Home Medication List Reviewed: Yes Physical Exam-Cardiology Physical Exam Vital Signs/I&O 08/11/19 08/11/19 08/11/19 04:00 08:00 08:00 Temp 36.5 36.3 Pulse 86 86 Resp 20 20 B/P (MAP) 112/71 (85) 128/87 (101) Pulse Ox 99 98 99 O2 Delivery Room Air Room Air Room Air 08/11/19 00:00 Intake Total 1130 ml Output Total 150 ml Balance 980 ml Capillary Refill : Less Than 3 Seconds Constitutional: appears stated age, AAO x 3; No apparent distress; well- developed, well-nourished HEENT: PERRL; No normal ENT inspection, No TMs normal, No pharynx normal, No scleral icterus (R), No scleral icterus (L), No pale conjunctivae (R), No pale conjunctivae (L), No photophobia, No TM abnormal (R), No TM abnormal (L), No pharyngeal erythema, No tonsillar exudate, No other, No discharge, No EOMI; hearing is well preserved; No hard of hearing; oral hygience is good; No ulceration, No xanthelasmas are seen Neck: No non-tender, No full range of motion, No supple, No normal inspection, No carotid bruit, No limited range of motion, No lymphadenopathy (R), No lymphadenopathy (L), No tender lateral, No tender midline, No thyromegaly, No other; carotid pulses are 2 + bilaterally; No with good upstrokes Respiratory: No accessory muscle use, No respiratory distress, No chest tender, No chest expansion is symmetric; chest is bilaterally symmetric; No lungs clear to percussion; lungs clear to auscultation; No crackles, No rhonchi, No rales, No stridor, No wheezing, No pleural rub, No other Cardiovascular: regular rate-rhythm; No irregularly irregular, No extra beats, No parasternal heave is noted, No JVD, No edema, No bradycardia, No tachycardia, No point of maximal impulse, No cardiac thrills are palpable; S1 and S2; No gallop/S3, No gallop/S4, No diastolic murmur, No systolic murmur, No friction rub, No click, No other Gastrointestinal: No tender; soft, round; No distended, No pulsatile mass, No organomegaly, No guarding, No rebound, No tenderness, No hernia, No mass; audible bowel sounds; No abnormal bowel sounds, No abdominal bruits, No spleenomegaly, No other Rectal: deferred Extremities: normal range of motion, non-tender, pedal edema; No clubbing, No cyanosis, No significant edema Neurologic/Psychiatric: no motor/sensory deficits, alert, normal mood/affect, oriented x 3, power is 5/5 both on sides Skin: normal color; No rash, No ulcerations Data Review Labs Laboratory Tests 08/10/19 16:38: Glucometer 162H 08/10/19 21:19: Glucometer 289H 08/11/19 05:34: Glucometer 125H 08/11/19 05:49: White Blood Count 8.5, Red Blood Count 4.34L, Hemoglobin 10.4L, Hematocrit 35, Mean Corpuscular Volume 80, Mean Corpuscular Hemoglobin 24L, Mean Corpuscular Hemoglobin Concent 30L, Red Cell Distribution Width 16.0H, Platelet Count 478H, Mean Platelet Volume 10.5H, Neutrophils (%) (Auto) 65, Lymphocytes (%) (Auto) 24, Monocytes (%) (Auto) 9, Eosinophils (%) (Auto) 2, Basophils (%) (Auto) 0, Neutrophils # (Auto) 5.5, Lymphocytes # (Auto) 2.0, Monocytes # (Auto) 0.7, Eosinophils # (Auto) 0.2, Basophils # (Auto) 0.0, Sodium Level 133L, Potassium Level 4.7, Chloride Level 98, Carbon Dioxide Level 27, Anion Gap 8, Blood Urea Nitrogen 21H, Creatinine 0.81, Estimat Glomerular Filtration Rate > 60, BUN/Cr eatinine Ratio 26, Glucose Level 115H, Calcium Level 8.7, Phosphorus Level 3.5, Magnesium Level 1.9 08/11/19 11:27: Glucometer 134H Microbiology 08/09/19 MRSA Screen - Final, Complete MRSA not isolated ECG Impression ECG Initial ECG Rhythm: Normal Sinus Comment left bundle branch block. A/P-Cardiology Assessment/Admission Diagnosis Acute systolic congestive heart failure, acute respiratory failure, COPD, Active smoking, Diabetes, Hyponatremia, Thrombocytosis, Plan Acute systolic congestive heart failure, acute respiratory failure, IV Lasix. Echocardiogram done 07/18/2019 shows an EF of 25-30 percent with dilated cardiomyopathy. Elevated PA pressure. Large left-sided pleural effusion. Patient will require aggressive therapy for cardiomyopathy. coronary angiography done on 07/20/2019 showed nonobstructive CAD. Beta blockers, ROSELINE inhibitor for dilated cardiomyopathy. Sudden cardiac prevention for dilated cardiomyopathy, LifeVest is recommended on previous admission and provided but the patient is not wearing. COPD, defer to the primary team. Pulmonary hypertension, could be secondary to COPD and cardiomyopathy. Active smoking, smoking cessation was strongly recommended. Diabetes, deferred to the primary team., Hyponatremia, Thank you for your consultation. Please call me if you have any questions. Hui Suarez MD, FACP, FACC, FSCAI, FHRS, CCDS Interventional Cardiology Cardiac Electrophysiology Vascular Medicine and Endovascular Interventions Clinical Quality Measures DVT/VTE Risk/Contraindication: Risk Factor Score Per Nursin RFS Level Per Nursing on Admit: 4+=Very High Taras SUAREZ MD Aug 10, 2019 13:10
--- NOTE | 2019-08-10 14:10 | NUR ---
PT TRANSFERRED TO ROOM 406 FROM ICU. REPORT RECEIVED FROM NELLY SEARS. AGREE WITH PREVIOUS NURSING ASSESSMENT. SCD IN PLACE TO RIGHT LEG. PT DENIES ANY PAIN. VSS. PT ORIENTED TO ROOM. CALL LIGHT WITHIN REACH.
--- NOTE | 2019-08-10 15:53 | History & Physical ---
HPI History of Present Illness: 49 yo F with known uncontrolled DM that came in with increase in weakness. States that her blood sugars always run around 400s and upon presentation was >600. Patient states that she has her insulin at home but she just had not taken any for a few days. Denies any signs of infection. + Meth. States that she has not seen her PCP Dr Lorenzana for a while so there have been no recent adjustments. She did have a recent hospitalization and states that she had several lows in the 30-40s and that makes her worried to take her insulin. Source: patient Exam Limitations: no limitations Date seen by provider: Aug 10, 2019 Time Seen by Provider: 10:15 Attending Physician Radha Bo MD [place] [place] of Admission Aug 09, 2019 at 21:26 Home Medications Home Medications Reviewed patient Home Medication Reconciliation performed by pharmacy medication reconciliations urgent care technician and/or nursing. Patients Allergies have been reviewed. Allergies Coded Allergies: Penicillins (Verified Allergy, Unknown, 04/06/19) [id number]-Aopcso Hx Patient Social History Alcohol Use: Denies Use Recreational Drug Use: No (SMOKES 1PPD) Drug of Choice: Meth and benzo's Smoking Status: Current Everyday Smoker Type Used: Cigarettes 2nd Hand Smoke Exposure: Yes Recent Foreign Travel: No Contact w/other who traveled: No Recent Hopitalizations: Yes (2019) Recent Infectious Disease Expo: No Immunizations Up To Date Tetanus Booster (TDap): Less than 5yrs Date of Pneumonia Vaccine: Aug 09, 2017 Date of Influenza Vaccine: Sep 08, 2018 Past Medical History PMHx: Diabetes Mellitus - Type 2 (dx age 33) - insulin requiring Anxiety Atherosclerotic occlusive disease Superficial femoral vein thrombus Chronic anemia Tobacco Abuse Neuropathy Kidney Stones Depression Gastroparesis Hyperlipidemia Uterine Fibroids Dysfunctional Uterine Bleeding Left ventricular thrombus Congestive heart failure with EF 15% March 2018 Splenic infarct Renal infarct PSH: cholecystectomy Left leg arterial bypass Left BKA Section Vascular Stenting Left femoral artery thrombectomy Uterine artery embolization Family Medical History Family History: Diabetes mellitus 19 FATHER 19 MOTHER G8 BROTHER G8 SISTER FH: COPD (chronic obstructive pulmonary disease) G8 SISTER Myocardial infarction 19 MOTHER Review of Systems ([facility]) Constitutional: No chills, No fever; malaise, weakness EENTM: no symptoms reported; No mouth pain, No mouth swelling, No nose congestion, No nose pain, No throat pain, No throat swelling Respiratory: no symptoms reported; No cough, No dyspnea on exertion, No short of breath Cardiovascular: no symptoms reported; No chest pain, No edema, No palpitations Gastrointestinal: nausea; No vomiting Genitourinary: no symptoms reported; No dysuria, No frequency, No hematuria Musculoskeletal: no symptoms reported Skin: no symptoms reported; No lesions, No rash Psychiatric/Neurological: Weakness Reviewed Test Results Reviewed Test Results Lab Laboratory Tests Test 08/09/19 20:18 08/09/19 20:19 08/09/19 20:45 08/09/19 22:00 Range/Units Sodium Level 131 L 135-145 MMOL/L Potassium Level 4.1 3.6-5.0 MMOL/L Chloride Level 95 L 98-107 MMOL/L Carbon Dioxide Level 28 21-32 MMOL/L Anion Gap 8 5-14 MMOL/L Blood Urea Nitrogen 11 7-18 MG/DL Creatinine 1.20 0.60-1.30 MG/DL Estimat Glomerular Filtration Rate 47 BUN/Creatinine Ratio 9 Glucose Level 777 *H 70-105 MG/DL Calcium Level 8.6 8.5-10.1 MG/DL Corrected Calcium 9.3 8.5-10.1 MG/DL Total Bilirubin 0.4 0.1-1.0 MG/DL Aspartate Amino Transf (AST/SGOT) 47 H 5-34 U/L Alanine Aminotransferase (ALT/SGPT) 39 0-55 U/L Alkaline Phosphatase 294 H 40-136 U/L Troponin I 0.056 H <0.028 NG/ML Total Protein 6.4 6.4-8.2 GM/DL Albumin 3.1 L 3.2-4.5 GM/DL Beta-Hydroxybutyrate (Chem panel) 0.12 0.00-0.27 MMOL/L Thyroid Stimulating Hormone (TSH) 3.57 0.35-4.94 UIU/ML Glucometer > 600 *H 70-110 MG/DL White Blood Count 7.1 4.3-11.0 10^3/uL Red Blood Count 4.49 4.35-5.85 10^6/uL Hemoglobin 10.9 L 11.5-16.0 G/DL Hematocrit 36 35-52 % Mean Corpuscular Volume 80 80-99 FL Mean Corpuscular Hemoglobin 24 L 25-34 PG Mean Corpuscular Hemoglobin Concent 30 L 32-36 G/DL Red Cell Distribution Width 15.6 H 10.0-14.5 % Platelet Count 463 H 130-400 10^3/uL Mean Platelet Volume 10.7 H 7.4-10.4 FL Neutrophils (%) (Auto) 76 H 42-75 % Lymphocytes (%) (Auto) 15 12-44 % Monocytes (%) (Auto) 8 0-12 % Eosinophils (%) (Auto) 1 0-10 % Basophils (%) (Auto) 0 0-10 % Neutrophils # (Auto) 5.4 1.8-7.8 X 10^3 Lymphocytes # (Auto) 1.1 1.0-4.0 X 10^3 Monocytes # (Auto) 0.5 0.0-1.0 X 10^3 Eosinophils # (Auto) 0.1 0.0-0.3 10^3/uL Basophils # (Auto) 0.0 0.0-0.1 10^3/uL B-Type Natriuretic Peptide 3786.2 H <100.0 PG/ML Urine Color YELLOW Urine Clarity CLEAR Urine pH 6 5-9 Urine Specific [place] 1.010 L 1.016-1.022 Urine Protein 3+ H NEGATIVE Urine Glucose (UA) 4+ H NEGATIVE Urine Ketones NEGATIVE NEGATIVE Urine Nitrite NEGATIVE NEGATIVE Urine Bilirubin NEGATIVE NEGATIVE Urine Urobilinogen NORMAL NORMAL MG/DL Urine Leukocyte Esterase NEGATIVE NEGATIVE Urine RBC (Auto) 1+ H NEGATIVE Urine RBC 2-5 H /HPF Urine WBC NONE /HPF Urine Squamous Epithelial Cells RARE /HPF Urine Crystals PRESENT H /LPF Urine Amorphous Sediment MOD KAILEY URATES H /LPF Urine Bacteria NEGATIVE /HPF Urine Casts NONE /LPF Urine Mucus NEGATIVE /LPF Urine Culture Indicated NO Urine Opiates Screen NEGATIVE NEGATIVE Urine Oxycodone Screen NEGATIVE NEGATIVE Urine Methadone Screen NEGATIVE NEGATIVE Urine Propoxyphene Screen NEGATIVE NEGATIVE Urine Barbiturates Screen NEGATIVE NEGATIVE Ur Tricyclic Antidepressants Screen NEGATIVE NEGATIVE Urine Phencyclidine Screen NEGATIVE NEGATIVE Urine Amphetamines Screen NEGATIVE NEGATIVE Urine Methamphetamines Screen POSITIVE H NEGATIVE Urine Benzodiazepines Screen NEGATIVE NEGATIVE Urine Cocaine Screen NEGATIVE NEGATIVE Urine Cannabinoids Screen NEGATIVE NEGATIVE Test 08/09/19 22:12 08/09/19 22:49 08/09/19 23:12 08/10/19 00:29 Range/Units Glucometer 548 *H > 600 *H > 600 *H 70-110 MG/DL Sodium Level 133 L 135-145 MMOL/L Potassium Level 3.5 L 3.6-5.0 MMOL/L Chloride Level 94 L 98-107 MMOL/L Carbon Dioxide Level 26 21-32 MMOL/L Anion Gap 13 5-14 MMOL/L Blood Urea Nitrogen 11 7-18 MG/DL Creatinine 1.18 0.60-1.30 MG/DL Estimat Glomerular Filtration Rate 48 BUN/Creatinine Ratio 9 Glucose Level 695 *H 70-105 MG/DL Calcium Level 8.9 8.5-10.1 MG/DL Troponin I 0.071 H <0.028 NG/ML Test 08/10/19 00:47 08/10/19 01:00 08/10/19 02:12 08/10/19 03:12 Range/Units White Blood Count 6.3 4.3-11.0 10^3/uL Red Blood Count 4.38 4.35-5.85 10^6/uL Hemoglobin 10.6 L 11.5-16.0 G/DL Hematocrit 35 35-52 % Mean Corpuscular Volume 80 80-99 FL Mean Corpuscular Hemoglobin 24 L 25-34 PG Mean Corpuscular Hemoglobin Concent 30 L 32-36 G/DL Red Cell Distribution Width 15.7 H 10.0-14.5 % Platelet Count 477 H 130-400 10^3/uL Mean Platelet Volume 10.3 7.4-10.4 FL Neutrophils (%) (Auto) 80 H 42-75 % Lymphocytes (%) (Auto) 12 12-44 % Monocytes (%) (Auto) 7 0-12 % Eosinophils (%) (Auto) 0 0-10 % Basophils (%) (Auto) 1 0-10 % Neutrophils # (Auto) 5.0 1.8-7.8 X 10^3 Lymphocytes # (Auto) 0.8 L 1.0-4.0 X 10^3 Monocytes # (Auto) 0.4 0.0-1.0 X 10^3 Eosinophils # (Auto) 0.0 0.0-0.3 10^3/uL Basophils # (Auto) 0.0 0.0-0.1 10^3/uL Sodium Level 133 L 135-145 MMOL/L Potassium Level 3.4 L 3.6-5.0 MMOL/L Chloride Level 93 L 98-107 MMOL/L Carbon Dioxide Level 28 21-32 MMOL/L Anion Gap 12 5-14 MMOL/L Blood Urea Nitrogen 11 7-18 MG/DL Creatinine 1.11 0.60-1.30 MG/DL Estimat Glomerular Filtration Rate 52 BUN/Creatinine Ratio 10 Glucose Level 685 *H 70-105 MG/DL Calcium Level 8.6 8.5-10.1 MG/DL Glucometer 479 *H 439 *H 70-110 MG/DL Test 08/10/19 04:13 08/10/19 04:22 08/10/19 05:12 08/10/19 06:14 Range/Units Glucometer 305 H 324 H 255 H 70-110 MG/DL Phosphorus Level 2.3 2.3-4.7 MG/DL Magnesium Level 1.5 L 1.6-2.4 MG/DL Beta-Hydroxybutyrate (Chem panel) 0.04 0.00-0.27 MMOL/L Test 08/10/19 06:45 08/10/19 08:16 08/10/19 09:16 08/10/19 10:27 Range/Units Sodium Level 135 135-145 MMOL/L Potassium Level 3.5 L 3.6-5.0 MMOL/L Chloride Level 95 L 98-107 MMOL/L Carbon Dioxide Level 28 21-32 MMOL/L Anion Gap 12 5-14 MMOL/L Blood Urea Nitrogen 11 7-18 MG/DL Creatinine 0.84 0.60-1.30 MG/DL Estimat Glomerular Filtration Rate > 60 BUN/Creatinine Ratio 13 Glucose Level 201 H 70-105 MG/DL Calcium Level 8.7 8.5-10.1 MG/DL Glucometer 184 H 150 H 131 H 70-110 MG/DL Test 08/10/19 11:16 08/10/19 11:57 Range/Units Glucometer 158 H 143 H 70-110 MG/DL Physical Exam-([facility]) Physical Exam Vital Signs VS - Last 72 Hours, by Label 08/09/19 08/09/19 08/09/19 08/09/19 20:07 20:43 22:35 22:40 Temp 37.0 37.0 36.8 Pulse 93 100 96 Resp 19 17 14 B/P (MAP) 137/73 (94) 121/72 (94) 130/81 (97) Pulse Ox 96 95 97 96 O2 Delivery Room Air Room Air Room Air 08/09/19 08/09/19 08/09/19 08/09/19 22:46 22:48 23:00 23:03 Temp 36.8 Pulse 97 97 94 96 Resp 24 12 23 B/P (MAP) 135/89 (104) 130/81 (97) 121/72 (88) Pulse Ox 93 91 96 O2 Delivery Room Air Room Air Room Air 08/09/19 08/09/19 08/09/19 08/09/19 23:15 23:19 23:30 23:45 Pulse 99 98 97 Resp 15 15 20 B/P (MAP) 131/79 (96) 121/63 (82) 130/81 (97) Pulse Ox 91 92 93 O2 Delivery Room Air Room Air Room Air Room Air 08/10/19 08/10/19 08/10/19 08/10/19 00:00 00:15 00:18 01:00 Pulse 96 97 96 Resp 23 21 B/P (MAP) 126/74 (91) 121/71 (88) Pulse Ox 91 90 O2 Delivery Room Air Room Air Room Air 08/10/19 08/10/19 08/10/19 08/10/19 01:00 02:00 03:00 03:00 Temp 36.5 Pulse 96 89 93 Resp 19 17 15 B/P (MAP) 134/85 (101) 136/88 (104) 135/86 (102) Pulse Ox 94 94 95 O2 Delivery Room Air Room Air Room Air 08/10/19 08/10/19 08/10/19 08/10/19 04:00 04:07 05:01 07:00 Pulse 89 89 92 Resp 19 10 B/P (MAP) 108/58 (75) 124/81 (95) Pulse Ox 93 92 O2 Delivery Room Air Room Air Room Air 08/10/19 08/10/19 08/10/19 08/10/19 07:37 07:50 08:00 09:00 Temp 36.4 Pulse 91 90 Resp 13 16 B/P (MAP) 121/76 (91) Pulse Ox 93 94 O2 Delivery Room Air Room Air Room Air 08/10/19 08/10/19 08/10/19 08/10/19 10:00 11:00 12:00 12:00 Pulse 90 87 92 Resp 22 18 10 B/P (MAP) 122/73 (89) 118/75 (89) 111/80 (90) Pulse Ox 96 97 95 O2 Delivery Room Air Room Air Room Air Room Air 08/10/19 08/10/19 08/10/19 13:00 13:00 14:00 Temp 36.6 Pulse 93 93 94 Resp 12 18 B/P (MAP) 123/82 (96) 102/62 (75) Pulse Ox 96 98 O2 Delivery Room Air Room Air Capillary Refill : Less Than 3 Seconds General Appearance: WD/WN, thin HEENT: PERRL/EOMI, pharynx normal Neck: non-tender, full range of motion, supple Respiratory: chest non-tender, lungs clear, normal breath sounds, no respiratory distress, no accessory muscle use Cardiovascular: normal peripheral pulses, regular rate, rhythm, no murmur Gastrointestinal: normal bowel sounds, non tender, no organomegaly Back: no CVA tenderness, no vertebral tenderness Extremities: normal range of motion, no pedal edema, no calf tenderness, normal capillary refill Neurologic/Psychiatric: cardiac catheterization technician II-XII nml as tested, no motor/sensory deficits, alert, normal mood/affect, oriented x 3 Skin: normal color, warm/dry Lymphatic: no adenopathy Assessment/Plan Assessment/Plan Admission Status: Inpatient Order (span 2 midnights) Reason for Inpatient Admission: Required insulin drip and IVFs (1) IDDM (insulin dependent diabetes mellitus) Status: Chronic Assessment & Plan: - Uncontrolled, Will given 1/2 Levemir this AM and then stop insulin gtts, A1c pending (2) Anemia Status: Chronic Assessment & Plan: - At baseline Qualifiers: Qualified Codes: D64.9 - Anemia, unspecified (3) Substance abuse Status: Chronic Assessment & Plan: - Discussed the need for cessation (4) DVT prophylaxis Status: Acute Assessment & Plan: - lovenox Clinical Quality Measures DVT/VTE Risk/Contraindication: Risk Factor Score Per Nursin RFS Level Per Nursing on Admit: 4+=Very High RADHA BO MD Aug 10, 2019 15:53
[2019-08-10] MEDS ORDERED: KCL 20 MEQ TAB (K-DUR) PO NR (16:00)
[2019-08-10] MEDS ORDERED: MAGNESIUM OXIDE (MAG-OX)400 MG TAB PO NR (16:00)
[2019-08-10] MEDS: inSUlin ASPART (NovoLOG) 1 UNIT/0.01 ML (CHARGE PER UNIT) SC SCH ×2 (16:44→21:29)
[2019-08-10] MEDS: ENOXAPARIN 40 MG/0.4 ML (LOVENOX) SYR SQ SCH (17:03)
--- NOTE | 2019-08-10 19:00 | NUR ---
PT NOTED TO HAVE NOT URINATED SINCE HENAO REMOVAL IN ICU PRIOR TO ARRIVING TO 4TH FLOOR. BLADDER SCANNED 50ML PRESENT.
[2019-08-11] VITALS: BP 99/62
[2019-08-11 04:00] VITALS: BP 112/71
[2019-08-11 06:23] LABS: BASOPHILS % (AUTO) 0 % (0-10); EOSINOPHILS # (AUTO) 0.2 10^3/uL (0.0-0.3); EOSINOPHILS % (AUTO) 2 % (0-10); HEMATOCRIT 35 % (35-52); HEMOGLOBIN 10.4 G/DL (11.5-16.0); LYMPHOCYTES % (AUTO) 24 % (12-44); MEAN CORPUSCULAR HEMOGLOBIN 24 PG (25-34); MEAN CORPUSCULAR HGB CONC 30 G/DL (32-36); MEAN CORPUSCULAR VOLUME 80 FL (80-99); MEAN PLATELET VOLUME 10.5 FL (7.4-10.4); MONOCYTES # (AUTO) 0.7 X 10^3 (0.0-1.0); MONOCYTES % (AUTO) 9 % (0-12); NEUTROPHILS # (AUTO) 5.5 X 10^3 (1.8-7.8); NEUTROPHILS % (AUTO) 65 % (42-75); PLATELET COUNT 478 10^3/uL (130-400); WHITE BLOOD COUNT 8.5 10^3/uL (4.3-11.0)
[2019-08-11 06:48] LABS: BUN/CREATININE RATIO 26; CALCIUM 8.7 MG/DL (8.5-10.1); CARBON DIOXIDE 27 MMOL/L (21-32); CHLORIDE 98 MMOL/L (98-107); CREATININE SERUM 0.81 MG/DL (0.60-1.30); GFR ESTIMATED > 60; GLUCOSE 115 MG/DL (70-105); MAGNESIUM 1.9 MG/DL (1.6-2.4); PHOSPHORUS 3.5 MG/DL (2.3-4.7); POTASSIUM 4.7 MMOL/L (3.6-5.0); SODIUM 133 MMOL/L (135-145)
[2019-08-11] MEDS: inSUlin ASPART (NovoLOG) 1 UNIT/0.01 ML (CHARGE PER UNIT) SC SCH ×2 (07:20→11:32)
[2019-08-11 08:00] VITALS: BP 128/87
[2019-08-11 12:00] VITALS: BP 127/87
--- NOTE | 2019-08-11 12:18 | Cardiology Progress Note ---
Cardiology SOAP Progress Note Subjective: still complaining of shortness of breath. Objective: I&O/Vital Signs 08/11/19 08/11/19 08/11/19 04:00 08:00 08:00 Temp 36.5 36.3 Pulse 86 86 Resp 20 20 B/P (MAP) 112/71 (85) 128/87 (101) Pulse Ox 99 98 99 O2 Delivery Room Air Room Air Room Air 08/11/19 00:00 Intake Total 1130 ml Output Total 150 ml Balance 980 ml Weight (Pounds): 203 Weight (Ounces): 1.0 Weight (Calculated Kilograms): [id number] Constitutional: appears stated age, AAO x 3; No apparent distress; well- developed, well-nourished Respiratory: No accessory muscle use, No respiratory distress, No chest tender, No chest expansion is symmetric; chest is bilaterally symmetric; No lungs clear to percussion; lungs clear to auscultation; No crackles, No rhonchi, No rales, No stridor, No wheezing, No pleural rub, No other Cardiovascular: regular rate-rhythm; No irregularly irregular, No extra beats, No parasternal heave is noted, No JVD, No edema, No bradycardia, No tachycardia, No point of maximal impulse, No cardiac thrills are palpable; S1 and S2; No gallop/S3, No gallop/S4, No diastolic murmur, No systolic murmur, No friction rub, No click, No other Gastrointestional: No tender; soft, round; No distended, No pulsatile mass, No organomegaly, No guarding, No rebound, No tenderness, No hernia, No mass; audible bowel sounds; No abnormal bowel sounds, No abdominal bruits, No spleenomegaly, No other Extremities: normal range of motion, non-tender, pedal edema; No clubbing, No cyanosis, No significant edema Neurologic/Psychiatric: no motor/sensory deficits, alert, normal mood/affect, oriented x 3, power is 5/5 both on sides Skin: normal color; No rash, No ulcerations Results/Procedures: Labs Laboratory Tests 08/10/19 16:38: Glucometer 162H 08/10/19 21:19: Glucometer 289H 08/11/19 05:34: Glucometer 125H 08/11/19 05:49: White Blood Count 8.5, Red Blood Count 4.34L, Hemoglobin 10.4L, Hematocrit 35, Mean Corpuscular Volume 80, Mean Corpuscular Hemoglobin 24L, Mean Corpuscular Hemoglobin Concent 30L, Red Cell Distribution Width 16.0H, Platelet Count 478H, Mean Platelet Volume 10.5H, Neutrophils (%) (Auto) 65, Lymphocytes (%) (Auto) 24, Monocytes (%) (Auto) 9, Eosinophils (%) (Auto) 2, Basophils (%) (Auto) 0, Neutrophils # (Auto) 5.5, Lymphocytes # (Auto) 2.0, Monocytes # (Auto) 0.7, Eosinophils # (Auto) 0.2, Basophils # (Auto) 0.0, Sodium Level 133L, Potassium Level 4.7, Chloride Level 98, Carbon Dioxide Level 27, Anion Gap 8, Blood Urea Nitrogen 21H, Creatinine 0.81, Estimat Glomerular Filtration Rate > 60, BUN/Creatinine Ratio 26, Glucose Level 115H, Calcium Level 8.7, Phosphorus Level 3.5, Magnesium Level 1.9 08/11/19 11:27: Glucometer 134H Microbiology 08/09/19 MRSA Screen - Final, Complete MRSA not isolated A/P: Assessment/Dx: Acute systolic congestive heart failure, acute respiratory failure, COPD, Active smoking, Diabetes, Hyponatremia, Thrombocytosis, Plan: Acute systolic congestive heart failure, acute respiratory failure, IV Lasix. Echocardiogram done 07/18/2019 shows an EF of 25-30 percent with dilated cardiomyopathy. Elevated PA pressure. Large left-sided pleural effusion. Patient will require aggressive therapy for cardiomyopathy. coronary angiography done on 07/20/2019 showed nonobstructive CAD. blood pressure is borderline otherwise we would restart Beta blockers, ROSELINE inhibitor for dilated cardiomyopathy. Sudden cardiac prevention for dilated cardiomyopathy, LifeVest is recommended on previous admission and provided but the patient is not wearing. COPD, defer to the primary team. Pulmonary hypertension, could be secondary to COPD and cardiomyopathy. Active smoking, smoking cessation was strongly recommended. Diabetes, deferred to the primary team., Hyponatremia, Thank you for your consultation. Please call me if you have any questions. Hui Suarez MD, FACP, FACC, FSCAI, FHRS, CCDS Interventional Cardiology Cardiac Electrophysiology Vascular Medicine and Endovascular Interventions Taras SUAREZ MD Aug 11, 2019 12:18
[2019-08-11] MEDS ORDERED: FUROSEMIDE 40 MG/4 ML INJ (LASIX) IVP SCH (12:30)
--- NOTE | 2019-08-11 12:56 | Discharge Instructions ---
Discharge Instructions Reconcile Patient Problems Problems Reviewed?: Yes Activity & Diet Discharge Diet: ADA Diet Activity as Tolerated: Yes MORAIMA VALENTE MD Aug 11, 2019 12:56
--- NOTE | 2019-08-11 13:01 | Discharge Summary ---
Discharge Summary Hospital Course Was the Problem List Reviewed?: Yes Hospital Course Date of Admission: Aug 09, 2019 at 21:26 Admission Diagnosis : Family Physician/Provider: Yani Cesar MD Date of Discharge: 08/11/19 Discharge Diagnosis: [ ] Hospital Course: [ ] Patient was admitted with hyperosmolar non-ketotic hyperglycemia. She had been noncompliant with her insulin. In addition patient had a large left pleural effusion echocardiogram revealed an ejection fraction of 25-30 percent con sistent with a nonischemic dilated cardiomyopathy. saw the patient in consult and the patient was placed on an ROSELINE inhibitor and a diuretic and beta tico. At the time of discharge the patient's blood sugars are under good control and she is feeling much better and anxious to go home. She is counseled to stop smoking and avoid using methamphetamine and second hand smoke. Patient will continue to use breathing treatments as before at home. Labs and Pending Lab Test: Laboratory Tests 08/10/19 16:38: Glucometer 162H 08/10/19 21:19: Glucometer 289H 08/11/19 05:34: Glucometer 125H 08/11/19 05:49: White Blood Count 8.5, Red Blood Count 4.34L, Hemoglobin 10.4L, Hematocrit 35, Mean Corpuscular Volume 80, Mean Corpuscular Hemoglobin 24L, Mean Corpuscular Hemoglobin Concent 30L, Red Cell Distribution Width 16.0H, Platelet Count 478H, Mean Platelet Volume 10.5H, Neutrophils (%) (Auto) 65, Lymphocytes (%) (Auto) 24, Monocytes (%) (Auto) 9, Eosinophils (%) (Auto) 2, Basophils (%) (Auto) 0, Neutrophils # (Auto) 5.5, Lymphocytes # (Auto) 2.0, Monocytes # (Auto) 0.7, Eosinophils # (Auto) 0.2, Basophils # (Auto) 0.0, Sodium Level 133L, Potassium Level 4.7, Chloride Level 98, Carbon Dioxide Level 27, Anion Gap 8, Blood Urea Nitrogen 21H, Creatinine 0.81, Estimat Glomerular Filtration Rate > 60, BUN/Creatinine Ratio 26, Glucose Level 115H, Calcium Level 8.7, Phosphorus Level 3.5, Magnesium Level 1.9 08/11/19 11:27: Glucometer 134H Microbiology 08/09/19 MRSA Screen - Final, Complete MRSA not isolated Home Meds Active Reported Lisinopril 2.5 Mg Tablet 5 Mg PO DAILY TAKES 2 (2.5MG) TABLETS Furosemide 40 Mg Tablet 40 Mg PO DAILY Carvedilol 3.125 Mg Tablet 3.125 Mg PO BID LAST FILLED #60 06-14-19 Levemir Flextouch (Insulin Detemir) 100 Unit/1 Ml Insuln.pen 20 Unit SQ HS LAST FILLED 06-14-19 Novolog Flexpen (Insulin Aspart) 300 Units/3 Ml Solution 10 Units SQ TIDAC LAST FILLED 06-14-19 Multivitamins (Multivitamin) 1 Each Tablet 1 Tab PO DAILY Assessment/Pt Instructions Nonketotic hyperglycemia. Congestive heart failure secondary to systolic dysfunction from an nonischemic cardiomyopathy Tobaccoism Drug abuse COPD Patient is instructed to avoid secondhand smoke and tobacco to be compliant with her medications and follow up with Dr. Cesar. At the time of discharge she is stable Discharge Instructions Discharge Diet: ADA Diet Activity as Tolerated: Yes Pneumonia Vaccine Order Indica: Yes Discharge Physical Examination Vital Signs Vital Signs Date Time Temp Pulse Resp B/P (MAP) Pulse Ox O2 Delivery O2 Flow Rate FiO2 08/11/19 08:00 99 Room Air 08/11/19 08:00 36.3 86 20 128/87 (101) General Appearance: WD/WN, Chronically ill HEENT: Other (edentulous) Respiratory: Wheezing Cardiovascular: Regular Rate, Rhythm, No Gallop, No Murmur, Normal Peripheral Pulses Gastrointestinal: Normal Bowel Sounds, No Organomegaly, Non Tender, Soft Extremity: Normal Capillary Refill, Normal Range of Motion, Non Tender, No Calf Tenderness Skin: Normal Color, Warm/Dry Neurologic/Psychiatric: Alert, Oriented x3, No Motor/Sensory Deficits, Normal Mood/Affect Allergies: Coded Allergies: Penicillins (Verified Allergy, Unknown, 04/06/19) Copy Copies To 1: YANI CESAR MD Discharge Summary Date of Admission Aug 09, 2019 at 21:26 Date of Discharge Discharge Date: Aug 11, 2019 Discharge Time: 1400 Clinical Quality Measures DVT/VTE Risk/Contraindication: Risk Factor Score Per Nursin RFS Level Per Nursing on Admit: 4+=Very High MORAIMA VALENTE MD Aug 11, 2019 13:01
[2019-08-11 14:25] VITALS: BP 128/87
[2019-08-11] MEDS: ENOXAPARIN 40 MG/0.4 ML (LOVENOX) SYR SQ SCH (15:54)
[2019-08-11 16:07] VITALS: BP 121/81
--- NOTE | 2019-08-16 21:51 | Physician Query Clarification ---
PQ-CHF Specificity Admission Date: Aug 09, 2019 at 21:26 Discharge Date: Aug 11, 2019 at 17:05 The medical record reflects the following clinical scenario: History/Risk Factors: history of CHF Clinical Findings: heart failure, dilated cardiomyopathy Treatment: IV Lasix Question: Can you further specify the acuity &/or type of CHF per the clinical indicators above? Please document a response in the Progress Notes or Discharge Summary. 1. Acuity: Acute, Chronic or Acute on Chronic 2. Type: Systolic, Diastolic or Systolic & Diastolic 3. Unspecified: CHF cannot be further specified regarding type or acuity 4. Other, with explanation of clinical findings 5. Clinically undetermined, no explanation for clinical findings PHYSICIAN RESPONSE Acuity: Acute Type: Systolic Please remember a lack of response to the above will prompt a phone page by CDI/Coding staff. In responding to this query, please exercise your independent professional judgment. The purpose of this communication is to more accurately reflect the complexity of your patients condition. The fact that a question is asked does not imply that any particular answer is desired or expected. Thank you for your timely response to this clarification. Requestors name: Gabi Payne THIS PHYSICIAN QUERY FORM IS A PERMANENT PART OF THE MEDICAL RECORD GABI NEWSOME Aug 16, 2019 21:51 MORAIMA VALENTE MD Aug 27, 2019 12:41
== END 2019-08-11 17:05 | disposition home or self-care (01) | DRG 637 ==
LOC: EDUNIT# 20:07 → ER 20:09 → ICU 21:26 → 4TH 08-10 13:49
PROVIDERS: ADMIT Family Medicine; ATTEND Family Medicine
DX: E11.00 Type 2 diabetes mellitus with hyperosmolarity without nonketotic hyperglycemic-hyperosmolar coma (NKHHC) (principal); I42.0 Dilated cardiomyopathy; I50.21 Acute systolic (congestive) heart failure; E11.65 Type 2 diabetes mellitus with hyperglycemia; E87.1 Hypo-osmolality and hyponatremia; J90 Pleural effusion, not elsewhere classified; J44.9 Chronic obstructive pulmonary disease, unspecified; E11.51 Type 2 diabetes mellitus with diabetic peripheral angiopathy without gangrene; E11.40 Type 2 diabetes mellitus with diabetic neuropathy, unspecified; G43.909 Migraine, unspecified, not intractable, without status migrainosus; G40.909 Epilepsy, unspecified, not intractable, without status epilepticus; M19.91 Primary osteoarthritis, unspecified site; M54.9 Dorsalgia, unspecified; E03.9 Hypothyroidism, unspecified; G47.9 Sleep disorder, unspecified; F41.9 Anxiety disorder, unspecified; F31.9 Bipolar disorder, unspecified; F20.9 Schizophrenia, unspecified; D50.9 Iron deficiency anemia, unspecified; D47.3 Essential (hemorrhagic) thrombocythemia; F15.10 Other stimulant abuse, uncomplicated; F17.210 Nicotine dependence, cigarettes, uncomplicated; Z79.4 Long term (current) use of insulin; Z86.718 Personal history of other venous thrombosis and embolism; Z89.512 Acquired absence of left leg below knee; Z87.820 Personal history of traumatic brain injury; Z91.19 Patient's noncompliance with other medical treatment and regimen; Z86.14 Personal history of Methicillin resistant Staphylococcus aureus infection; Z87.442 Personal history of urinary calculi
CPT/HCPCS: 36415; 51702; 71045; 80048; 80053; 80306; 81000; 82010; 82962; 83036; 83735; 83880; 84100; 84443; 84484; 85025; 87081; 93005; 93306; 94640; 96361; 96374; 96375; 96376

== ENCOUNTER 2019-08-17 18:59 | Emergency (ER) | payer MEDICAID | END 2019-08-17 21:42 | disposition short-term general hospital (02) | LOC: ER 18:59 ==

== ENCOUNTER 2019-09-23 20:09 | Observation (INO) | payer MEDICAID ==
[~2019-09-23] VITALS: Ht 180 cm; Wt 113.6 kg
[2019-09-23] MEDS ORDERED: NS IV 1000 ML 1,000 ML IV SCH ×2 (20:17→21:00)
[2019-09-23 20:29] LABS: BASOPHILS % (AUTO) 0 % (0-10); EOSINOPHILS % (AUTO) 0 % (0-10); HEMATOCRIT 38 % (35-52); HEMOGLOBIN 10.9 G/DL (11.5-16.0); LYMPHOCYTES # (AUTO) 0.7 X 10^3 (1.0-4.0); LYMPHOCYTES % (AUTO) 7 % (12-44); MEAN CORPUSCULAR HEMOGLOBIN 22 PG (25-34); MEAN CORPUSCULAR HGB CONC 29 G/DL (32-36); MEAN CORPUSCULAR VOLUME 75 FL (80-99); MEAN PLATELET VOLUME 11.9 FL (7.4-10.4); MONOCYTES # (AUTO) 0.7 X 10^3 (0.0-1.0); MONOCYTES % (AUTO) 6 % (0-12); NEUTROPHILS # (AUTO) 9.1 X 10^3 (1.8-7.8); NEUTROPHILS % (AUTO) 86 % (42-75); PLATELET COUNT 269 10^3/uL (130-400); RED CELL DISTRIBUTION WIDTH 18.9 % (10.0-14.5); WHITE BLOOD COUNT 10.6 10^3/uL (4.3-11.0)
[2019-09-23] MEDS ORDERED: inSUlin (REGULAR) HUMAN 1 UNIT/0.01 ML (CHARGE PER UNIT) IV STA (20:40)
--- NOTE | 2019-09-23 20:40 | ED Integumentary General ---
General Chief Complaint: Abdominal/GI Problems Stated Complaint: ABD PAIN History of Present Illness Date Seen by Provider: Sep 23, 2019 Time Seen by Provider: 20:05 Initial Comments 49-year-old female brought by EMS for abdominal pain. She states for approximately one week now she's been having a rash to her abdomen and upper thighs. She is an insulin-dependent diabetic, she is not compliant with any of her medications. She is status post left BKA. She reports falling earlier today and remained on the ground for several hours because no one was home and no one was home. She has not taken her insulin for 2-3 days. She has been putting baby powder on her abdomen and the rash. Timing/Duration: this afternoon Severity: mild Location: torso (abdomen, perineal and upper thighs) Possible Cause: no cause identified Associated Symptoms: change in skin texture, edema; No fever, No malaise, No nasal congestion, No pallor; rash (abdomen and panus) Allergies and Home Medications Allergies Coded Allergies: Penicillins (Verified Allergy, Unknown, 04/06/19) Home Medications Carvedilol 3.125 Mg Tablet, 3.125 MG PO BID, (Reported) LAST FILLED #60 06-14-19 Furosemide 40 Mg Tablet, 40 MG PO DAILY, (Reported) Insulin Aspart 300 Units/3 Ml Solution, 10 UNITS SQ TIDAC, (Reported) LAST FILLED 06-14-19 Insulin Detemir 100 Unit/1 Ml Insuln.pen, 20 UNIT SQ HS, (Reported) LAST FILLED 06-14-19 Lisinopril 2.5 Mg Tablet, 5 MG PO DAILY, (Reported) TAKES 2 (2.5MG) TABLETS Multivitamin 1 Each Tablet, 1 TAB PO DAILY, (Reported) Patient Home Medication List Home Medication List Reviewed: Yes Review of Systems Review of Systems Constitutional: no symptoms reported, see HPI Skin: see HPI, change in color, lesions, rash All Other Systems Reviewed Negative Unless Noted: Yes Past Rsuzpog-Tbgljd-Rnnlco Hx Past Med/Social Hx: Reviewed Nursing Past Med/Soc Hx Patient Social History Drug of Choice: +IV METH AND COCAINE USE, ALSO SMOKES/SNORTS THEM. BENZODIAZEPINE ABUSE Type Used: Cigarettes 2nd Hand Smoke Exposure: Yes Recent Hopitalizations: Yes Immunizations Up To Date Tetanus Booster (TDap): Less than 5yrs PED Vaccines UTD: No Date of Pneumonia Vaccine: Aug 09, 2017 Date of Influenza Vaccine: Sep 08, 2018 Seasonal Allergies Seasonal Allergies: No Past Medical History Surgeries: Yes Amputation, Appendectomy, Section, Gallbladder, Hysterectomy, Oophorectomy, Orthopedic, Tubal Ligation, Vascular Surgery Respiratory: Yes Pneumonia, COPD Currently Using CPAP: No Currently Using BIPAP: No Cardiac: Yes Cardiomyopathy, Deep Vein Thrombosis, High Cholesterol, Hypertension, Peripheral Vascular Neurological: Yes (PSEUDOSEIZURES; SEIZURE 09/06/18 --POSSIBLY DUE TO METH USE) Concussion, Headaches /Migraines, Neuropathy, Seizure Disorder, Traumatic Brain Injury 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 Disorders: Yes 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 Disorders: Denies, 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, 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 Sexually Transmitted Disease: No HIV/AIDS: No Genitourinary: Yes (LEFT RENAL ARTERY THROMBUS WITH INFARCT) Bladder Infection, Kidney Stones, Renal Failure, UTI-Chronic Gastrointestinal: Yes (SPLENIC EMBOLI WITH INFARCT; GASTROPARESIS) Gastroesophageal Reflux Musculoskeletal: Yes (L2 COMPRESSION FX 10/17/17) Degenerate Disk Disease, Arthritis, Back Injury, Chronic Back Pain, Fractures Endocrine: Yes (NON-COMPLIANCE; DKA MUJLTIPLE TIMES.) Diabetes, Insulin dep, Hypothyroidsim HEENT: No Cancer: No Psychosocial: Yes (POLYSUBSTANCE ABUSE) Pseudo Seizures, Sleep Difficulties, Anxiety, Bipolar, Schizophrenia, Depression Integumentary: Yes (MRSA ABSCESSES) Blood Disorders: Yes (iron deficiency anemia) Adverse Reaction/Blood Tranf: No Family Medical History Diabetes mellitus 19 FATHER 19 MOTHER G8 BROTHER G8 SISTER FH: COPD (chronic obstructive pulmonary disease) G8 SISTER Myocardial infarction 19 MOTHER Physical Exam Vital Signs Vital Signs - First Documented 09/23/19 20:11 Temp 36.3 Pulse 96 Resp 18 B/P (MAP) 136/81 (99) O2 Delivery Room Air Capillary Refill : General Appearance: WD/WN, no apparent distress HEENT: PERRL/EOMI, normal ENT inspection, TMs normal, pharynx normal Neck: non-tender, full range of motion, supple, normal inspection Cardiovascular: regular rate, rhythm, no murmur Respiratory: chest non-tender, lungs clear, no respiratory distress, decreased breath sounds Gastrointestinal: normal bowel sounds, soft, distended; No guarding, No rebound; tenderness (Superficial from candidal infection and exocriation. ) Back: normal inspection, no CVA tenderness Extremities: pedal edema (right LE and sacral edema) Neurologic/Psychiatric: no motor/sensory deficits, alert, normal mood/affect Skin: normal color, warm/dry Skin Problem Location: torso Skin Problem Character: drainage (with foul smell. ), erythema, rash, scales Progress/Results/Core Measures Results/Orders Lab Results Laboratory Tests Test 09/23/19 20:15 09/23/19 21:23 09/23/19 21:40 Range/Units White Blood Count 10.6 4.3-11.0 10^3/uL Red Blood Count 5.04 4.35-5.85 10^6/uL Hemoglobin 10.9 L 11.5-16.0 G/DL Hematocrit 38 35-52 % Mean Corpuscular Volume 75 L 80-99 FL Mean Corpuscular Hemoglobin 22 L 25-34 PG Mean Corpuscular Hemoglobin Concent 29 L 32-36 G/DL Red Cell Distribution Width 18.9 H 10.0-14.5 % Platelet Count 269 130-400 10^3/uL Mean Platelet Volume 11.9 H 7.4-10.4 FL Neutrophils (%) (Auto) 86 H 42-75 % Lymphocytes (%) (Auto) 7 L 12-44 % Monocytes (%) (Auto) 6 0-12 % Eosinophils (%) (Auto) 0 0-10 % Basophils (%) (Auto) 0 0-10 % Neutrophils # (Auto) 9.1 H 1.8-7.8 X 10^3 Lymphocytes # (Auto) 0.7 L 1.0-4.0 X 10^3 Monocytes # (Auto) 0.7 0.0-1.0 X 10^3 Eosinophils # (Auto) 0.0 0.0-0.3 10^3/uL Basophils # (Auto) 0.0 0.0-0.1 10^3/uL Neutrophils % (Manual) 86 % Lymphocytes % (Manual) 11 % Monocytes % (Manual) 2 % Eosinophils % (Manual) 0 % Basophils % (Manual) 1 % Band Neutrophils 0 % Hypochromasia SLIGHT Anisocytosis SLIGHT Microcytosis SLIGHT Sodium Level 128 L 135-145 MMOL/L Potassium Level 5.2 H 3.6-5.0 MMOL/L Chloride Level 89 L 98-107 MMOL/L Carbon Dioxide Level 28 21-32 MMOL/L Anion Gap 11 5-14 MMOL/L Blood Urea Nitrogen 15 7-18 MG/DL Creatinine 1.23 0.60-1.30 MG/DL Estimat Glomerular Filtration Rate 46 BUN/Creatinine Ratio 12 Glucose Level 837 *H 70-105 MG/DL Calcium Level 9.1 8.5-10.1 MG/DL Corrected Calcium 9.7 8.5-10.1 MG/DL Total Bilirubin 0.6 0.1-1.0 MG/DL Aspartate Amino Transf (AST/SGOT) 49 H 5-34 U/L Alanine Aminotransferase (ALT/SGPT) 30 0-55 U/L Alkaline Phosphatase 258 H 40-136 U/L B-Type Natriuretic Peptide 4270.2 H <100.0 PG/ML Total Protein 6.6 6.4-8.2 GM/DL Albumin 3.2 3.2-4.5 GM/DL Urine Color YELLOW Urine Clarity CLEAR Urine pH 6.5 5-9 Urine Specific [place] 1.005 L 1.016-1.022 Urine Protein 3+ H NEGATIVE Urine Glucose (UA) 4+ H NEGATIVE Urine Ketones NEGATIVE NEGATIVE Urine Nitrite NEGATIVE NEGATIVE Urine Bilirubin NEGATIVE NEGATIVE Urine Urobilinogen NORMAL NORMAL MG/DL Urine Leukocyte Esterase NEGATIVE NEGATIVE Urine RBC (Auto) 1+ H NEGATIVE Urine RBC 0-2 /HPF Urine WBC NONE /HPF Urine Squamous Epithelial Cells 0-2 /HPF Urine Crystals NONE /LPF Urine Bacteria TRACE /HPF Urine Casts NONE /LPF Urine Mucus MODERATE H /LPF Urine Culture Indicated NO Urine Opiates Screen NEGATIVE NEGATIVE Urine Oxycodone Screen NEGATIVE NEGATIVE Urine Methadone Screen NEGATIVE NEGATIVE Urine Propoxyphene Screen NEGATIVE NEGATIVE Urine Barbiturates Screen NEGATIVE NEGATIVE Ur Tricyclic Antidepressants Screen NEGATIVE NEGATIVE Urine Phencyclidine Screen NEGATIVE NEGATIVE Urine Amphetamines Screen NEGATIVE NEGATIVE Urine Methamphetamines Screen NEGATIVE NEGATIVE Urine Benzodiazepines Screen NEGATIVE NEGATIVE Urine Cocaine Screen NEGATIVE NEGATIVE Urine Cannabinoids Screen NEGATIVE NEGATIVE Glucometer > 600 *H 70-110 MG/DL My Orders Orders - ANDREINA CASEY BNP (09/23/19 20:12) Cbc With Automated Diff (09/23/19 20:12) Comprehensive Metabolic Panel (09/23/19 20:12) Drug Screen Stat (Urine) (09/23/19 20:12) Ua Culture If Indicated (09/23/19 20:12) Ed Iv/Invasive Line Start (09/23/19 20:17) Ns Iv 1000 Ml (Sodium Chloride 0.9%) (09/23/19 20:17) Manual Differential (09/23/19 20:15) Insulin (Regular) Human (Humulin R (Per (09/23/19 20:40) Ed Iv/Invasive Line Start (09/23/19 21:00) Ns Iv 1000 Ml (Sodium Chloride 0.9%) (09/23/19 21:00) Furosemide Injection (Lasix Injection) (09/23/19 21:00) Catheter(Urinary) Care .0300, 1500 (09/23/19 21:26) Accucheck Stat ONCE (09/23/19 21:43) Medications Given in ED Current Medications Medications Dose Ordered Sig/Vaughn Route Start Time Stop Time Status Last Admin Dose Admin Furosemide 20 mg ONCE ONCE IVP 09/23/19 21:00 09/23/19 21:02 DC 09/23/19 21:10 20 MG Vital Signs/I&O 09/23/19 20:11 Temp 36.3 Pulse 96 Resp 18 B/P (MAP) 136/81 (99) O2 Delivery Room Air Progress Progress Note : Time: 20:05 Progress Note Patient seen and evaluated, will obtain urine glucose. Will start normal saline 1 L per IV. 2029 glucose 837, will give 10 units of regular insulin in her IV fluid. Then start a second liter of normal saline. Abdominal apron and pain with thoroughly cleaned with sterile saline and Hibiclens. Dried and ABD pads placed. 2049 remainder of labs essentially normal, patient continues to be alert and oriented. BNP 4270. WBC 10.6. [address] Gupta, agreed for admission. 2144 Repeat Accucheck > 600. Transferring to ICU, will get repeat serum glucose in admission. Departure Impression Primary Impression: Rica infection Additional Impressions: Hyperglycemia Hyperosmolar hyponatremia Disposition: ADMITTED INPATIENT Condition: Stable Admissions Decision to Admit Reason: Admit from ER (General) Decision to Admit/Date: Sep 23, 2019 Time/Decision to Admit Time: 21:30 Departure-Patient Inst. Referrals: [facility] (PCP) Primary Care Physician YANI CESAR MD (Family) Primary Care Physician Copy Copies To 1: YANI CESAR MD, AMY ARNP Sep 23, 2019 20:40
[2019-09-23 20:46] LABS: ALBUMIN 3.2 GM/DL (3.2-4.5); BILIRUBIN,TOTAL 0.6 MG/DL (0.1-1.0); CALCIUM 9.1 MG/DL (8.5-10.1); CREATININE SERUM 1.23 MG/DL (0.60-1.30); POTASSIUM 5.2 MMOL/L (3.6-5.0); TOTAL PROTEIN 6.6 GM/DL (6.4-8.2)
[2019-09-23 20:55] LABS: ANISOCYTOSIS SLIGHT; BAND NEUTROPHILS 0 %; BASOPHILS % (MANUAL) 1 %; EOSINOPHILS % (MANUAL) 0 %; HYPOCHROMASIA SLIGHT; LYMPHOCYTES % (MANUAL) 11 %; MICROCYTOSIS SLIGHT; MONOCYTES % (MANUAL) 2 %; NEUTROPHILS % (MANUAL) 86 %
[2019-09-23] MEDS ORDERED: FUROSEMIDE 40 MG/4 ML INJ (LASIX) IVP ONE (21:00)
[2019-09-23 21:32] LABS: BILIRUBIN,URINE NEGATIVE (NEGATIVE); CLARITY,URINE CLEAR; COLOR,URINE YELLOW; GLUCOSE, URINE (UA) 4+ (NEGATIVE); KETONES,URINE NEGATIVE (NEGATIVE); LEUKOCYTE ESTERASE ,URINE NEGATIVE (NEGATIVE); NITRITE,URINE NEGATIVE (NEGATIVE); PH,URINE 6.5 (5-9); PROTEIN,URINE 3+ (NEGATIVE)
[2019-09-23 21:39] LABS: BACTERIA,URINE TRACE /HPF; RBC,URINE 0-2 /HPF; SQUAMOUS EPITHELIAL CELL,UR 0-2 /HPF
[2019-09-23 21:45] LABS: AMPHETAMINE SCREEN, URINE NEGATIVE (NEGATIVE); BARBITURATE SCREEN URINE NEGATIVE (NEGATIVE); BENZODIAZEPINES SCREEN URINE NEGATIVE (NEGATIVE); CANNABINOID SCREEN, URINE NEGATIVE (NEGATIVE); COCAINE SCREEN URINE NEGATIVE (NEGATIVE); METHADONE STAT NEGATIVE (NEGATIVE); METHAMPHETAMINE SCREEN URINE S NEGATIVE (NEGATIVE); OPIATE SCREEN URINE NEGATIVE (NEGATIVE); OXYCODONE STAT NEGATIVE (NEGATIVE); PROPOXYPHENE STAT NEGATIVE (NEGATIVE); TRICYCLIC ANTIDEPRESSANTS SCRE NEGATIVE (NEGATIVE)
[2019-09-23 22:26] VITALS: BP 132/93
[2019-09-23] MEDS ORDERED: 1/2 NS IV SOLUTION 1,000 ML IV ONE (22:41)
[2019-09-23] MEDS ORDERED: NORMAL SALINE 250 ML ONE (22:42)
[2019-09-23] MEDS ORDERED: LORazepam INJ 2 MG/ML (ATIVAN) VIAL IV PRN (22:45)
[2019-09-23] MEDS ORDERED: 1/2 NS IV SOLUTION 1,000 ML IV SCH (22:45)
[2019-09-23] MEDS ORDERED: ONDANSETRON 4 MG/2 ML (SDV) Z0FRAN IV PRN (22:45)
[2019-09-23] MEDS ORDERED: fluCOnazole (DIFLUCAN) 100 MG TAB PO SCH (22:45)
[2019-09-23] MEDS ORDERED: DEXTROSE 10% IV SOLUTION 1,000 ML IV SCH (22:45)
[2019-09-23] MEDS ORDERED: REGULAR inSUlin DRIP 250 UNITS/NS 250 ML IV SCH ×2 (22:45)
[2019-09-23 23:00] VITALS: BP 128/88
[2019-09-23] MEDS: D5 1/2 NS IV 1,000 ML IV SCH (23:07)
[2019-09-23] MEDS: POTASSIUM CL 10MEQ/50ML IVPB 50 ML IV SCH (23:08)
[2019-09-23 23:22] LABS: CALCIUM 8.7 MG/DL (8.5-10.1); CREATININE SERUM 1.01 MG/DL (0.60-1.30); POTASSIUM 4.6 MMOL/L (3.6-5.0)
[2019-09-23 23:58] LABS: BILIRUBIN,URINE NEGATIVE (NEGATIVE); CLARITY,URINE CLEAR; COLOR,URINE YELLOW; GLUCOSE, URINE (UA) 4+ (NEGATIVE); KETONES,URINE NEGATIVE (NEGATIVE); LEUKOCYTE ESTERASE ,URINE NEGATIVE (NEGATIVE); NITRITE,URINE NEGATIVE (NEGATIVE); PH,URINE 6.5 (5-9); PROTEIN,URINE 3+ (NEGATIVE)
[2019-09-24] VITALS (17 sets, daily range): BP systolic 94–134; BP diastolic 57–114
[2019-09-24 00:05] LABS: BACTERIA,URINE TRACE /HPF; SQUAMOUS EPITHELIAL CELL,UR 0-2 /HPF
[2019-09-24 00:30] LABS: CALCIUM 8.7 MG/DL (8.5-10.1); CREATININE SERUM 0.99 MG/DL (0.60-1.30); POTASSIUM 4.7 MMOL/L (3.6-5.0)
[2019-09-24] MEDS ORDERED: 1/2 NS IV SOLUTION 1,000 ML IV SCH (01:00)
[2019-09-24] MEDS: POTASSIUM CL 10MEQ/50ML IVPB 50 ML IV SCH ×5 (01:06→08:45)
[2019-09-24] MEDS: D5 1/2 NS IV 1,000 ML IV SCH (01:13)
--- NOTE | 2019-09-24 01:41 | NUR ---
2330- E ICU CONTACTED ABOUT DVT PROPHYLAXIS D/T PT SCORING HIGH ON ADMISSION ASSESSMENT. 0140- E ICU CALLED BACK TO ORDER LOVENOX FOR DVT PROPHYLAXIS
[2019-09-24] MEDS: ENOXAPARIN 40 MG/0.4 ML (LOVENOX) SYR SC SCH (03:37)
[2019-09-24 03:39] LABS: BASOPHILS % (AUTO) 0 % (0-10); EOSINOPHILS # (AUTO) 0.1 10^3/uL (0.0-0.3); EOSINOPHILS % (AUTO) 1 % (0-10); HEMATOCRIT 35 % (35-52); HEMOGLOBIN 10.1 G/DL (11.5-16.0); LYMPHOCYTES % (AUTO) 10 % (12-44); MEAN CORPUSCULAR HEMOGLOBIN 21 PG (25-34); MEAN CORPUSCULAR HGB CONC 29 G/DL (32-36); MEAN CORPUSCULAR VOLUME 75 FL (80-99); MEAN PLATELET VOLUME 12.1 FL (7.4-10.4); MONOCYTES # (AUTO) 0.6 X 10^3 (0.0-1.0); MONOCYTES % (AUTO) 6 % (0-12); NEUTROPHILS # (AUTO) 7.7 X 10^3 (1.8-7.8); NEUTROPHILS % (AUTO) 82 % (42-75); PLATELET COUNT 248 10^3/uL (130-400); RED CELL DISTRIBUTION WIDTH 18.5 % (10.0-14.5); WHITE BLOOD COUNT 9.4 10^3/uL (4.3-11.0)
[2019-09-24 04:03] LABS: BUN/CREATININE RATIO 16; CALCIUM 8.8 MG/DL (8.5-10.1); CARBON DIOXIDE 27 MMOL/L (21-32); CHLORIDE 93 MMOL/L (98-107); CREATININE SERUM 0.89 MG/DL (0.60-1.30); GFR ESTIMATED > 60; MAGNESIUM 1.8 MG/DL (1.6-2.4); PHOSPHORUS 2.5 MG/DL (2.3-4.7); POTASSIUM 4.9 MMOL/L (3.6-5.0); SODIUM 131 MMOL/L (135-145)
[2019-09-24 04:06] LABS: GLUCOSE 497 MG/DL (70-105)
--- NOTE | 2019-09-24 05:28 | Pulmonary Consultation ---
History of Present Illness History of Present Illness Date of Consultation 09/24/19 05:27 Date of Admission Allergies and Home Medications Allergies Coded Allergies: Penicillins (Verified Allergy, Unknown, 04/06/19) Home Medications Atorvastatin Calcium 40 Mg Tablet, 40 MG PO DAILY, (Reported) Carvedilol 3.125 Mg Tablet, 3.125 MG PO BID, (Reported) Furosemide 40 Mg Tablet, 40 MG PO HS, (Reported) Hydrocodone/Acetaminophen 1 Each Tablet, 1 TAB PO Q8H PRN for PAIN-MODERATE, (Reported) Insulin Aspart 300 Units/3 Ml Solution, 10-12 UNITS SQ TIDAC, (Reported) Insulin Detemir 100 Unit/1 Ml Insuln.pen, 15-20 UNIT SQ HS, (Reported) Lisinopril 2.5 Mg Tablet, 2.5 MG PO DAILY, (Reported) TAKES 2 (2.5MG) TABLETS Metformin HCl 500 Mg Tablet, 500 MG PO BID, (Reported) Past Ihakeqm-Ubuoxy-Tqdgxo Hx Past Med/Social Hx: Reviewed Nursing Past Med/Soc Hx Patient Social History Alcohol Use: Denies Use Recreational Drug Use: Yes Drug of Choice: +IV METH AND COCAINE USE, ALSO SMOKES/SNORTS THEM. BENZOD IAZEPINE ABUSE Smoking Status: Current Everyday Smoker Type Used: Cigarettes 2nd Hand Smoke Exposure: Yes Recent Foreign Travel: No Contact w/Someone Who Travel: No Recent Infectious Disease Expo: No Recent Hopitalizations: Yes Physical Abuse: No Sexual Abuse: No Mistreated: No Fear: No Immunizations Up To Date Tetanus Booster (TDap): Less than 5yrs PED Vaccines UTD: No Date of Pneumonia Vaccine: Aug 09, 2017 Date of Influenza Vaccine: Sep 08, 2018 Seasonal Allergies Seasonal Allergies: No Past Medical History Surgeries: Yes Amputation, Appendectomy, Section, Gallbladder, Hysterectomy, Oophorectomy, Orthopedic, Tubal Ligation, Vascular Surgery Respiratory: Yes Pneumonia, COPD Currently Using CPAP: No Currently Using BIPAP: No Cardiac: Yes Cardiomyopathy, Deep Vein Thrombosis, High Cholesterol, Hypertension, Peripheral Vascular Neurological: Yes (PSEUDOSEIZURES; SEIZURE 09/06/18 --POSSIBLY DUE TO METH USE) Concussion, Headaches /Migraines, Neuropathy, Seizure Disorder, Traumatic Brain Injury 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 Disorders: Yes 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 Disorders: Denies, Menstrual Problems [employer] History: Hysterectomy, Menopausal Sexually Transmitted Disease: No HIV/AIDS: No Genitourinary: Yes (LEFT RENAL ARTERY THROMBUS WITH INFARCT) Bladder Infection, Kidney Stones, Renal Failure, UTI-Chronic Gastrointestinal: Yes (SPLENIC EMBOLI WITH INFARCT; GASTROPARESIS) Gastroesophageal Reflux Musculoskeletal: Yes (L2 COMPRESSION FX 10/17/17) Degenerate Disk Disease, Arthritis, Back Injury, Chronic Back Pain, Fractures Endocrine: Yes (NON-COMPLIANCE; DKA MUJLTIPLE TIMES.) Diabetes, Insulin dep, Hypothyroidsim HEENT: No Cancer: No Psychosocial: Yes (POLYSUBSTANCE ABUSE) Pseudo Seizures, Sleep Difficulties, Anxiety, Bipolar, Schizophrenia, Depression Integumentary: Yes (MRSA ABSCESSES) Blood Disorders: Yes (iron deficiency anemia) Adverse Reaction/Blood Tranf: No Family Medical History Diabetes mellitus 19 FATHER 19 MOTHER G8 BROTHER G8 SISTER FH: COPD (chronic obstructive pulmonary disease) G8 SISTER Myocardial infarction 19 MOTHER Sepsis Event Evaluation Height, Weight, BMI Height: 5'11.00" Weight: 203lbs. 1.0oz. 92.173501dn; 29.00 BMI Method:Estimated Exam Exam Vital Signs Date Time Temp Pulse Resp B/P (MAP) Pulse Ox O2 Delivery O2 Flow Rate FiO2 09/24/19 03:57 36.0 09/24/19 03:56 Room Air 09/24/19 03:35 Room Air 09/24/19 02:00 88 34 123/112 (116) 96 Nasal Cannula 1.00 09/24/19 01:04 87 09/24/19 01:00 87 23 132/114 (120) 98 Nasal Cannula 1.00 09/24/19 00:00 35.8 09/24/19 00:00 Nasal Cannula 1.00 09/24/19 00:00 87 31 132/85 (101) 99 Nasal Cannula 1.00 09/23/19 23:57 Nasal Cannula 1.00 09/23/19 23:55 Nasal Cannula 1.00 09/23/19 23:00 91 10 128/88 (101) 97 Room Air 09/23/19 22:31 90 09/23/19 22:26 36.0 90 19 132/93 (106) 93 Room Air 09/23/19 22:01 36.3 82 18 136/81 (99) 95 Room Air 09/23/19 20:11 36.3 96 18 136/81 (99) Room Air I & O 09/24/19 07:00 Intake Total 3600 ml Output Total 1350 ml Balance 2250 ml Height & Weight Height: 5'11.00" Weight: 203lbs. 1.0oz. 92.396761tp; 29.00 BMI Method:Estimated Capillary Refill: Less Than 3 Seconds Gastrointestinal: normal bowel sounds, soft, distended; No guarding, No rebound; tenderness (Superficial from candidal infection and exocriation. ) Results Lab Laboratory Tests 09/23/19 20:15 09/23/19 23:00 09/24/19 00:05 09/24/19 03:10 Assessment/Plan Assessment/Plan HHNK - resolved Small bilateral pleural effusions -Monitor -Improving Hyperosmolar hyponatremia -monitor IDDM Hx of substance abuse -education OPHELIA GARCIA DO Sep 24, 2019 05:27 POS
[2019-09-24] MEDS ORDERED: ACETAMINOPHEN 500 MG TAB (TYLENOL) PO PRN (05:30)
[2019-09-24] MEDS ORDERED: IBUPROFEN 600 MG (MOTRIN) TAB PO PRN (05:30)
[2019-09-24] MEDS ORDERED: NS IV 1000 ML 1,000 ML ONE (05:46)
[2019-09-24] MEDS: NS IV 1000 ML 1,000 ML IV SCH ×3 (05:50→17:37)
[2019-09-24] MEDS ORDERED: MAGNESIUM 1 GM/100 ML IVPB 100 ML IV SCH (06:00)
[2019-09-24] MEDS ORDERED: POTASSIUM CL 10MEQ/50ML IVPB 50 ML IV SCH (06:00)
[2019-09-24] MEDS ORDERED: KCL 20 MEQ TAB (K-DUR) PO SCH (06:00)
[2019-09-24] MEDS ORDERED: FUROSEMIDE 40 MG/4 ML INJ (LASIX) IV SCH (07:00)
--- NOTE | 2019-09-24 07:26 | Diagnostic Imaging Report ---
PATIENT HISTORY: Dyspnea. TECHNIQUE: Single frontal view of the chest. COMPARISON: 08/17/2019 FINDINGS: There are small bilateral pleural effusions with bibasilar atelectasis. There is mild cardiomegaly with central vascular congestion. Overall aeration appears similar to the prior study. No new consolidation is seen. IMPRESSION: 1. Small bilateral pleural effusions with bibasilar atelectasis. Stable cardiomegaly and central vascular congestion. Overall aeration appears stable. Dictated by: Dictated on workstation # [id number]
[2019-09-24 07:27] LABS: BUN/CREATININE RATIO 17; CALCIUM 8.9 MG/DL (8.5-10.1); CARBON DIOXIDE 28 MMOL/L (21-32); CHLORIDE 93 MMOL/L (98-107); CREATININE SERUM 0.83 MG/DL (0.60-1.30); GFR ESTIMATED > 60; GLUCOSE 293 MG/DL (70-105); MAGNESIUM 1.8 MG/DL (1.6-2.4); PHOSPHORUS 2.2 MG/DL (2.3-4.7); POTASSIUM 4.9 MMOL/L (3.6-5.0); SODIUM 131 MMOL/L (135-145)
[2019-09-24] MEDS ORDERED: FLU QUADRIvalent (5+ YOA) 2019-2020 (AFLURIA) 0.5 ML IM ONE (07:45)
[2019-09-24] MEDS ORDERED: HYDROcodone/APAP 7.5 MG/325 MG (LORTAB, LORCET PLUS) TABLET PO SCH (09:00)
[2019-09-24 09:29] LABS: BUN/CREATININE RATIO 18; CALCIUM 8.8 MG/DL (8.5-10.1); CARBON DIOXIDE 28 MMOL/L (21-32); CHLORIDE 94 MMOL/L (98-107); GFR ESTIMATED > 60; GLUCOSE 210 MG/DL (70-105); MAGNESIUM 1.7 MG/DL (1.6-2.4); PHOSPHORUS 2.1 MG/DL (2.3-4.7); SODIUM 132 MMOL/L (135-145)
[2019-09-24] MEDS: MICONAZOLE 2% POWDER (DESENEX AF) 90 GM TOP SCH ×3 (09:53→22:24)
[2019-09-24] MEDS: HYDROcodone/APAP 7.5 MG/325 MG (LORTAB, LORCET PLUS) TABLET PO PRN ×2 (09:54→22:40)
[2019-09-24] MEDS ORDERED: ATOR40TA70 PO (11:42)
[2019-09-24] MEDS ORDERED: METF-397 PO (11:42)
[2019-09-24] MEDS ORDERED: HYDR-3812 PO (11:45)
--- NOTE | 2019-09-24 11:47 | NUR ---
SPOKE WITH PT WELL GOING OVER THE EXT MED HISTORY AND CALLING [facility] TO COMPLE[facility]. PT WAS ABLE TO TELL ME ALL HER MEDS WELL HOW/WHEN SHE TAKES THEM. THE FOLLOWING DID NOT SHOW ON THE EXT MED HISTORY, THEREFORE I [facility]: 08-27-2019 NOVOLOG #[id number] 08-31-2019 HYDROCODONE #84/28DS
[2019-09-24] MEDS ORDERED: inSUlin ASPART (NovoLOG) 1 UNIT/0.01 ML (CHARGE PER UNIT) ONE (13:05)
[2019-09-24] MEDS: inSUlin ASPART (NovoLOG) 1 UNIT/0.01 ML (CHARGE PER UNIT) SC SCH ×3 (13:10→21:10)
[2019-09-24 14:27] LABS: BUN/CREATININE RATIO 19; CALCIUM 8.5 MG/DL (8.5-10.1); CARBON DIOXIDE 28 MMOL/L (21-32); CHLORIDE 95 MMOL/L (98-107); CREATININE SERUM 0.77 MG/DL (0.60-1.30); GFR ESTIMATED > 60; GLUCOSE 110 MG/DL (70-105); MAGNESIUM 1.7 MG/DL (1.6-2.4); PHOSPHORUS 2.2 MG/DL (2.3-4.7); POTASSIUM 4.7 MMOL/L (3.6-5.0); SODIUM 131 MMOL/L (135-145)
--- NOTE | 2019-09-24 15:20 | NUR ---
REPORT GIVEN TO NELLY ROLLINS. PT TRANSPORTED VIA BED TO ROOM 412 WITH ALL PERSONAL BELONGINGS. PT HAS NO COMPLAINTS DURING TRANSPORT.
--- NOTE | 2019-09-24 15:54 | NUR ---
Patient arrived on the floor at this time, care assumed by this RN. Report received from NELLY Hinkle. I agree with previous nurse's assessment.
[2019-09-24] MEDS: FUROSEMIDE 40 MG (LASIX) TAB PO SCH (16:41)
--- NOTE | 2019-09-24 17:05 | History & Physical ---
HPI History of Present Illness: 49 yo F with IDDM with long h/o non compliance that presented with nausea and was found to have blood sugars in the 400s. Patient states that she has not missed any doses of insulin but she is not sure what dose she takes of her insulin. She has a long h/o drug use and states that she has not used currently. Ate breakfast this AM w/o any nausea or abdominal pain. Denies any sick contacts. Source: patient Exam Limitations: no limitations Date seen by provider: Sep 24, 2019 Time Seen by Provider: 09:35 Attending Physician Dave Lorenzana MD PCP [place] [place] Consult Date of Admission Sep 23, 2019 at 21:52 Home Medications Home Medications Reviewed patient Home Medication Reconciliation performed by pharmacy medication reconciliations operating room technician and/or nursing. Patients Allergies have been reviewed. Allergies Coded Allergies: Penicillins (Verified Allergy, Unknown, 04/06/19) [id number]-Sssgww Hx Patient Social History Alcohol Use: Denies Use Recreational Drug Use: Yes Drug of Choice: +IV METH AND COCAINE USE, ALSO SMOKES/SNORTS THEM. BENZODIAZEPINE ABUSE Smoking Status: Current Everyday Smoker Type Used: Cigarettes 2nd Hand Smoke Exposure: Yes Recent Foreign Travel: No Contact w/other who traveled: No Recent Hopitalizations: Yes Recent Infectious Disease Expo: No Immunizations Up To Date Tetanus Booster (TDap): Less than 5yrs Date of Pneumonia Vaccine: Aug 09, 2017 Date of Influenza Vaccine: Sep 08, 2018 Past Medical History PMHx: Diabetes Mellitus - Type 2 (dx age 33) - insulin requiring Anxiety Atherosclerotic occlusive disease Superficial femoral vein thrombus Chronic anemia Tobacco Abuse Neuropathy Kidney Stones Depression Gastroparesis Hyperlipidemia Uterine Fibroids Dysfunctional Uterine Bleeding Left ventricular thrombus Congestive heart failure with EF 15% March 2018 Splenic infarct Renal infarct PSH: cholecystectomy Left leg arterial bypass Left BKA Section Vascular Stenting Left femoral artery thrombectomy Uterine artery embolization Family Medical History Family History: Diabetes mellitus 19 FATHER 19 MOTHER G8 BROTHER G8 SISTER FH: COPD (chronic obstructive pulmonary disease) G8 SISTER Myocardial infarction 19 MOTHER Review of Systems ([facility]) Constitutional: No chills, No fever; malaise EENTM: no symptoms reported; No mouth pain, No nose congestion, No nose pain, No throat pain Respiratory: no symptoms reported; No cough, No dyspnea on exertion, No short of breath Cardiovascular: no symptoms reported; No chest pain, No edema, No palpitations Gastrointestinal: No abdominal pain, No constipation; loss of appetite; No nausea, No vomiting Genitourinary: no symptoms reported; No dysuria, No frequency, No hematuria : No Musculoskeletal: no symptoms reported; No back pain, No joint pain, No muscle pain Skin: rash Psychiatric/Neurological: Anxiety, Depressed, Weakness Reviewed Test Results Reviewed Test Results Lab Laboratory Tests Test 09/23/19 20:15 09/23/19 21:23 09/23/19 21:40 09/23/19 23:00 Range/Units White Blood Count 10.6 4.3-11.0 10^3/uL Red Blood Count 5.04 4.35-5.85 10^6/uL Hemoglobin 10.9 L 11.5-16.0 G/DL Hematocrit 38 35-52 % Mean Corpuscular Volume 75 L 80-99 FL Mean Corpuscular Hemoglobin 22 L 25-34 PG Mean Corpuscular Hemoglobin Concent 29 L 32-36 G/DL Red Cell Distribution Width 18.9 H 10.0-14.5 % Platelet Count 269 130-400 10^3/uL Mean Platelet Volume 11.9 H 7.4-10.4 FL Neutrophils (%) (Auto) 86 H 42-75 % Lymphocytes (%) (Auto) 7 L 12-44 % Monocytes (%) (Auto) 6 0-12 % Eosinophils (%) (Auto) 0 0-10 % Basophils (%) (Auto) 0 0-10 % Neutrophils # (Auto) 9.1 H 1.8-7.8 X 10^3 Lymphocytes # (Auto) 0.7 L 1.0-4.0 X 10^3 Monocytes # (Auto) 0.7 0.0-1.0 X 10^3 Eosinophils # (Auto) 0.0 0.0-0.3 10^3/uL Basophils # (Auto) 0.0 0.0-0.1 10^3/uL Neutrophils % (Manual) 86 % Lymphocytes % (Manual) 11 % Monocytes % (Manual) 2 % Eosinophils % (Manual) 0 % Basophils % (Manual) 1 % Band Neutrophils 0 % Hypochromasia SLIGHT Anisocytosis SLIGHT Microcytosis SLIGHT Sodium Level 128 L 131 L 135-145 MMOL/L Potassium Level 5.2 H 4.6 3.6-5.0 MMOL/L Chloride Level 89 L 92 L 98-107 MMOL/L Carbon Dioxide Level 28 27 21-32 MMOL/L Anion Gap 11 12 5-14 MMOL/L Blood Urea Nitrogen 15 14 7-18 MG/DL Creatinine 1.23 1.01 0.60-1.30 MG/DL Estimat Glomerular Filtration Rate 46 58 BUN/Creatinine Ratio 12 14 Glucose Level 837 *H 721 *H 70-105 MG/DL Calcium Level 9.1 8.7 8.5-10.1 MG/DL Corrected Calcium 9.7 8.5-10.1 MG/DL Total Bilirubin 0.6 0.1-1.0 MG/DL Aspartate Amino Transf (AST/SGOT) 49 H 5-34 U/L Alanine Aminotransferase (ALT/SGPT) 30 0-55 U/L Alkaline Phosphatase 258 H 40-136 U/L B-Type Natriuretic Peptide 4270.2 H <100.0 PG/ML Total Protein 6.6 6.4-8.2 GM/DL Albumin 3.2 3.2-4.5 GM/DL Urine Color YELLOW Urine Clarity CLEAR Urine pH 6.5 5-9 Urine Specific [place] 1.005 L 1.016-1.022 Urine Protein 3+ H NEGATIVE Urine Glucose (UA) 4+ H NEGATIVE Urine Ketones NEGATIVE NEGATIVE Urine Nitrite NEGATIVE NEGATIVE Urine Bilirubin NEGATIVE NEGATIVE Urine Urobilinogen NORMAL NORMAL MG/DL Urine Leukocyte Esterase NEGATIVE NEGATIVE Urine RBC (Auto) 1+ H NEGATIVE Urine RBC 0-2 /HPF Urine WBC NONE /HPF Urine Squamous Epithelial Cells 0-2 /HPF Urine Crystals NONE /LPF Urine Bacteria TRACE /HPF Urine Casts NONE /LPF Urine Mucus MODERATE H /LPF Urine Culture Indicated NO Urine Opiates Screen NEGATIVE NEGATIVE Urine Oxycodone Screen NEGATIVE NEGATIVE Urine Methadone Screen NEGATIVE NEGATIVE Urine Propoxyphene Screen NEGATIVE NEGATIVE Urine Barbiturates Screen NEGATIVE NEGATIVE Ur Tricyclic Antidepressants Screen NEGATIVE NEGATIVE Urine Phencyclidine Screen NEGATIVE NEGATIVE Urine Amphetamines Screen NEGATIVE NEGATIVE Urine Methamphetamines Screen NEGATIVE NEGATIVE Urine Benzodiazepines Screen NEGATIVE NEGATIVE Urine Cocaine Screen NEGATIVE NEGATIVE Urine Cannabinoids Screen NEGATIVE NEGATIVE Glucometer > 600 *H 70-110 MG/DL Beta-Hydroxybutyrate (Chem panel) 0.06 0.00-0.27 MMOL/L Test 09/23/19 23:51 09/24/19 00:05 09/24/19 03:10 09/24/19 06:50 Range/Units Urine Color YELLOW Urine Clarity CLEAR Urine pH 6.5 5-9 Urine Specific [place] 1.010 L 1.016-1.022 Urine Protein 3+ H NEGATIVE Urine Glucose (UA) 4+ H NEGATIVE Urine Ketones NEGATIVE NEGATIVE Urine Nitrite NEGATIVE NEGATIVE Urine Bilirubin NEGATIVE NEGATIVE Urine Urobilinogen NORMAL NORMAL MG/DL Urine Leukocyte Esterase NEGATIVE NEGATIVE Urine RBC (Auto) NEGATIVE NEGATIVE Urine RBC NONE /HPF Urine WBC NONE /HPF Urine Squamous Epithelial Cells 0-2 /HPF Urine Crystals NONE /LPF Urine Bacteria TRACE /HPF Urine Casts NONE /LPF Urine Mucus MODERATE H /LPF Urine Culture Indicated NO Sodium Level 130 L 131 L 131 L 135-145 MMOL/L Potassium Level 4.7 4.9 4.9 3.6-5.0 MMOL/L Chloride Level 92 L 93 L 93 L 98-107 MMOL/L Carbon Dioxide Level 25 27 28 21-32 MMOL/L Anion Gap 13 11 10 5-14 MMOL/L Blood Urea Nitrogen 14 14 14 7-18 MG/DL Creatinine 0.99 0.89 0.83 0.60-1.30 MG/DL Estimat Glomerular Filtration Rate 59 > 60 > 60 BUN/Creatinine Ratio 14 16 17 Glucose Level 645 *H 497 *H 293 H 70-105 MG/DL Calcium Level 8.7 8.8 8.9 8.5-10.1 MG/DL White Blood Count 9.4 4.3-11.0 10^3/uL Red Blood Count 4.74 4.35-5.85 10^6/uL Hemoglobin 10.1 L 11.5-16.0 G/DL Hematocrit 35 35-52 % Mean Corpuscular Volume 75 L 80-99 FL Mean Corpuscular Hemoglobin 21 L 25-34 PG Mean Corpuscular Hemoglobin Concent 29 L 32-36 G/DL Red Cell Distribution Width 18.5 H 10.0-14.5 % Platelet Count 248 130-400 10^3/uL Mean Platelet Volume 12.1 H 7.4-10.4 FL Neutrophils (%) (Auto) 82 H 42-75 % Lymphocytes (%) (Auto) 10 L 12-44 % Monocytes (%) (Auto) 6 0-12 % Eosinophils (%) (Auto) 1 0-10 % Basophils (%) (Auto) 0 0-10 % Neutrophils # (Auto) 7.7 1.8-7.8 X 10^3 Lymphocytes # (Auto) 1.0 1.0-4.0 X 10^3 Monocytes # (Auto) 0.6 0.0-1.0 X 10^3 Eosinophils # (Auto) 0.1 0.0-0.3 10^3/uL Basophils # (Auto) 0.0 0.0-0.1 10^3/uL Phosphorus Level 2.5 2.2 L 2.3-4.7 MG/DL Magnesium Level 1.8 1.8 1.6-2.4 MG/DL Test 09/24/19 09:06 09/24/19 14:00 09/24/19 16:11 Range/Units Sodium Level 132 L 131 L 135-145 MMOL/L Potassium Level 5.0 4.7 3.6-5.0 MMOL/L Chloride Level 94 L 95 L 98-107 MMOL/L Carbon Dioxide Level 28 28 21-32 MMOL/L Anion Gap 10 8 5-14 MMOL/L Blood Urea Nitrogen 14 15 7-18 MG/DL Creatinine 0.80 0.77 0.60-1.30 MG/DL Estimat Glomerular Filtration Rate > 60 > 60 BUN/Creatinine Ratio 18 19 Glucose Level 210 H 110 H 70-105 MG/DL Calcium Level 8.8 8.5 8.5-10.1 MG/DL Phosphorus Level 2.1 L 2.2 L 2.3-4.7 MG/DL Magnesium Level 1.7 1.7 1.6-2.4 MG/DL Glucometer 98 70-110 MG/DL Physical Exam-(CHC) Physical Exam Vital Signs VS - Last 72 Hours, by Label POS 09/23/19 09/23/19 09/23/19 09/23/19 20:11 22:01 22:26 22:31 Temp 36.3 36.3 36.0 Pulse 96 82 90 90 Resp 18 18 19 B/P (MAP) 136/81 (99) 136/81 (99) 132/93 (106) Pulse Ox 95 93 O2 Delivery Room Air Room Air Room Air 09/23/19 09/23/19 09/23/19 09/24/19 23:00 23:55 23:57 00:00 Pulse 91 87 Resp 10 31 B/P (MAP) 128/88 (101) 132/85 (101) Pulse Ox 97 99 O2 Delivery Room Air Nasal Cannula Nasal Cannula Nasal Cannula O2 Flow Rate 1.00 1.00 1.00 09/24/19 09/24/19 09/24/19 09/24/19 00:00 00:00 01:00 01:04 Temp 35.8 Pulse 87 87 Resp 23 B/P (MAP) 132/114 (120) Pulse Ox 98 O2 Delivery Nasal Cannula Nasal Cannula O2 Flow Rate 1.00 1.00 09/24/19 09/24/19 09/24/19 09/24/19 02:00 03:00 03:35 03:56 Pulse 88 86 Resp 34 9 B/P (MAP) 123/112 (116) 114/107 (109) Pulse Ox 96 97 O2 Delivery Nasal Cannula Nasal Cannula Room Air Room Air O2 Flow Rate 1.00 1.00 09/24/19 09/24/19 09/24/19 09/24/19 03:57 04:00 05:00 06:00 Temp 36.0 Pulse 87 86 87 Resp 38 B/P (MAP) 123/77 (92) 112/72 (85) 115/72 (86) Pulse Ox 99 95 97 O2 Delivery Room Air Room Air Room Air 09/24/19 09/24/19 09/24/19 09/24/19 07:00 07:00 07:45 08:00 Pulse 89 86 86 Resp 33 B/P (MAP) 134/77 (96) Pulse Ox 97 98 O2 Delivery Room Air Room Air Room Air O2 Flow Rate 1.00 09/24/19 09/24/19 09/24/19 09/24/19 09:00 10:00 11:00 12:00 Pulse 86 86 84 Resp 37 22 33 B/P (MAP) 112/82 (92) 102/70 (81) Pulse Ox 100 100 100 O2 Delivery Room Air Room Air Room Air Room Air O2 Flow Rate 1.00 09/24/19 09/24/19 09/24/19 09/24/19 12:00 12:26 13:00 14:00 Pulse 84 81 81 84 Resp 40 B/P (MAP) 114/84 (94) 104/57 (73) 94/65 (75) Pulse Ox 95 96 97 O2 Delivery Room Air Room Air Room Air 09/24/19 09/24/19 09/24/19 15:00 16:00 16:06 Temp 36.3 Pulse 80 95 Resp 20 B/P (MAP) 100/59 (73) 123/75 (91) Pulse Ox 94 98 98 O2 Delivery Room Air Nasal Cannula Room Air O2 Flow Rate 1.00 Capillary Refill : Less Than 3 Seconds General Appearance: WD/WN, no apparent distress Neck: non-tender, full range of motion Respiratory: chest non-tender, lungs clear, normal breath sounds, no respiratory distress, no accessory muscle use Cardiovascular: normal peripheral pulses, regular rate, rhythm, no edema, no murmur Gastrointestinal: normal bowel sounds, soft, no organomegaly, tenderness (epigastric ttp) Back: no CVA tenderness, no vertebral tenderness Extremities: normal range of motion, non-tender, no pedal edema, no calf tenderness, normal capillary refill Neurologic/Psychiatric: art history instructor II-XII nml as tested, no motor/sensory deficits, alert, normal mood/affect, oriented x 3 Skin: normal color, warm/dry Lymphatic: no adenopathy Assessment/Plan Assessment/Plan Admission Status: Observation (1) IDDM (insulin dependent diabetes mellitus) Status: Chronic Assessment & Plan: - Noncompliant, A1c pending, last A1c in clinic was >14, Give subcutaneous insulin and turn off insulin gtts, SSI B, Accuchecks ACHS (2) Hyperosmolar hyponatremia Status: Acute (3) Hyperglycemia Status: Acute (4) Rica infection Status: Acute Assessment & Plan: - Treated with topical and PO antifungal (5) Peripheral vascular disease of lower extremity Status: Chronic (6) DVT prophylaxis Status: Acute Assessment & Plan: - Lovenox (7) Substance abuse Status: Chronic Clinical Quality Measures DVT/VTE Risk/Contraindication: Risk Factor Score Per Nursin RFS Level Per Nursing on Admit: 4+=Very High Copy Copies To 1: Juan Manuel JENSEN HOLLY R MD Sep 24, 2019 17:05 POS
[2019-09-24] MEDS ORDERED: NON-FORMULARY MEDICATION 1 EA EA (Carvedilol 3.125 MG) PO SCH (21:00)
[2019-09-24] MEDS: CARVEDILOL 3.125 MG (COREG) TABLET PO SCH (22:24)
[2019-09-25] MEDS ORDERED: DEXTROSE 50% 50 ML (IMS) SYR ONE (00:57)
[2019-09-25 04:00] VITALS: BP 101/61
[2019-09-25] MEDS: ENOXAPARIN 40 MG/0.4 ML (LOVENOX) SYR SC SCH (04:15)
[2019-09-25 05:43] LABS: BASOPHILS % (AUTO) 0 % (0-10); EOSINOPHILS # (AUTO) 0.1 10^3/uL (0.0-0.3); EOSINOPHILS % (AUTO) 1 % (0-10); HEMATOCRIT 36 % (35-52); HEMOGLOBIN 10.5 G/DL (11.5-16.0); LYMPHOCYTES # (AUTO) 1.1 X 10^3 (1.0-4.0); LYMPHOCYTES % (AUTO) 11 % (12-44); MEAN CORPUSCULAR HEMOGLOBIN 22 PG (25-34); MEAN CORPUSCULAR HGB CONC 29 G/DL (32-36); MEAN CORPUSCULAR VOLUME 75 FL (80-99); MEAN PLATELET VOLUME 11.7 FL (7.4-10.4); MONOCYTES # (AUTO) 0.6 X 10^3 (0.0-1.0); MONOCYTES % (AUTO) 6 % (0-12); NEUTROPHILS # (AUTO) 7.9 X 10^3 (1.8-7.8); NEUTROPHILS % (AUTO) 82 % (42-75); PLATELET COUNT 252 10^3/uL (130-400); WHITE BLOOD COUNT 9.6 10^3/uL (4.3-11.0)
[2019-09-25 05:50] LABS: BUN/CREATININE RATIO 21; CALCIUM 8.4 MG/DL (8.5-10.1); CARBON DIOXIDE 27 MMOL/L (21-32); CHLORIDE 96 MMOL/L (98-107); CREATININE SERUM 0.85 MG/DL (0.60-1.30); GFR ESTIMATED > 60; GLUCOSE 136 MG/DL (70-105); MAGNESIUM 1.8 MG/DL (1.6-2.4); POTASSIUM 5.2 MMOL/L (3.6-5.0); SODIUM 131 MMOL/L (135-145)
[2019-09-25] MEDS: inSUlin ASPART (NovoLOG) 1 UNIT/0.01 ML (CHARGE PER UNIT) SC SCH ×3 (06:00→16:10)
--- NOTE | 2019-09-25 06:22 | Pulmonary Progress Note ---
Subjective Time Seen by a Provider: 06:22 Subjective/Events-last exam No complications noted. Pt is currently on RA. Sepsis Event Evaluation Height, Weight, BMI Height: 5'11.00" Weight: 203lbs. 1.0oz. 92.410277jj; 29.00 BMI Method:Estimated Exam Exam Vital Signs Date Time Temp Pulse Resp B/P (MAP) Pulse Ox O2 Delivery O2 Flow Rate FiO2 09/25/19 04:00 36.1 76 20 101/61 (74) 99 Room Air 09/25/19 00:32 96 09/24/19 23:50 36.1 80 21 107/65 (79) 99 Room Air 09/24/19 23:32 Nasal Cannula 1.00 09/24/19 19:35 80 09/24/19 19:15 36.5 80 20 101/57 (72) 96 Room Air 09/24/19 16:06 36.3 95 20 123/75 (91) 98 Room Air 09/24/19 16:00 98 Nasal Cannula 1.00 09/24/19 15:00 80 100/59 (73) 94 Room Air 09/24/19 14:00 84 94/65 (75) 97 Room Air 09/24/19 13:00 81 104/57 (73) 96 Room Air 09/24/19 12:26 81 09/24/19 12:00 84 40 114/84 (94) 95 Room Air 09/24/19 12:00 Room Air 1.00 09/24/19 11:00 84 33 102/70 (81) 100 Room Air 09/24/19 10:00 86 22 100 Room Air 09/24/19 09:00 86 37 112/82 (92) 100 Room Air 09/24/19 08:00 86 98 Room Air 09/24/19 07:45 Room Air 1.00 09/24/19 07:00 86 09/24/19 07:00 89 33 134/77 (96) 97 Room Air I & O 09/25/19 07:00 Intake Total 1950 ml Output Total 250 ml Balance 1700 ml Height & Weight Height: 5'11.00" Weight: 203lbs. 1.0oz. 92.377852hd; 29.00 BMI Method:Estimated General Appearance: No Apparent Distress, WD/WN HEENT: PERRL/EOMI, Pharynx Normal Neck: Full Range of Motion, Non Tender, Supple Respiratory: Chest Non Tender, Decreased Breath Sounds, Wheezing Cardiovascular: Regular Rate, Rhythm, No Edema, No Gallop Capillary Refill: Less Than 3 Seconds Gastrointestinal: normal bowel sounds, soft, no organomegaly, tenderness (epigastric ttp) Neurologic/Psychiatric: Alert, Oriented x3 Skin: Normal Color, Warm/Dry Lymphatic: No Adenopathy Results Lab Laboratory Tests 09/23/19 20:15 09/23/19 23:00 09/24/19 00:05 09/24/19 03:10 09/24/19 06:50 09/24/19 09:06 09/24/19 14:00 09/25/19 04:32 Assessment/Plan Assessment/Plan HHNK - resolved Small bilateral pleural effusions secondary to IVF -Monitor -Improving -D/C IVF -Continue lasix Hyperosmolar hyponatremia -monitor IDDM Hx of substance abuse -education Pt continues to improve. Her Sp02 is 99% on RA. I am going to sign off. Please call with any questions OPHELIA GARCIA DO Sep 25, 2019 06:22 POS
[2019-09-25 07:45] VITALS: BP 111/72
[2019-09-25] MEDS: CARVEDILOL 3.125 MG (COREG) TABLET PO SCH (08:34)
[2019-09-25] MEDS: MICONAZOLE 2% POWDER (DESENEX AF) 90 GM TOP SCH ×2 (08:35→14:30)
[2019-09-25] MEDS ORDERED: NON-FORMULARY MEDICATION 1 EA EA (Lisinopril 2.5 MG) PO SCH (09:00)
[2019-09-25] MEDS ORDERED: lisINopril 5 MG (PRINIVIL) TABLET PO SCH (09:00)
[2019-09-25] MEDS: RT-ALBUTEROL/IPRATROPIUM 3 ML (DUONEB) VIAL INH SCH ×2 (10:40→15:20)
[2019-09-25 11:29] VITALS: BP 120/78
--- NOTE | 2019-09-25 11:40 | Discharge Summary ---
Diagnosis/Chief Complaint Date of Admission Sep 23, 2019 at 21:52 Date of Discharge Discharge Diagnosis Problems/Diagnosis: (1) IDDM (insulin dependent diabetes mellitus) Assessment & Plan: - Noncompliant, A1c pending, last A1c in clinic was >14, Give subcutaneous insulin and turn off insulin gtts, SSI B, Accuchecks ACHS Status: Chronic (2) Hyperosmolar hyponatremia Status: Acute (3) Hyperglycemia Status: Acute (4) [place] infection Assessment & Plan: - Treated with topical and PO antifungal Status: Acute (5) Peripheral vascular disease of lower extremity Status: Chronic (6) DVT prophylaxis Assessment & Plan: - Lovenox Status: Acute (7) Substance abuse Status: Chronic Chief Complaint/HPI Chief Complaint/HPI 49 yo F with IDDM with long h/o non compliance that presented with nausea and was found to have blood sugars in the 400s. Patient states that she has not missed any doses of insulin but she is not sure what dose she takes of her insulin. She has a long h/o drug use and states that she has not used currently. Ate breakfast this AM w/o any nausea or abdominal pain. Denies any sick contacts. Discharge Summary-Simple/Stand Consultations Discharge Physical Examination Allergies: Coded Allergies: Penicillins (Verified Allergy, Unknown, 04/06/19) Vitals & I&Os Vital Sign - Last 12Hours Date Time Temp Pulse Resp B/P (MAP) Pulse Ox O2 Delivery O2 Flow Rate FiO2 09/25/19 11:29 36.1 82 18 120/78 (92) 100 Nasal Cannula 1.00 Intake and Output 09/25/19 00:00 Intake Total 2530 ml Output Total 275 ml Balance 2255 ml Hospital Course See final discharge diagnosis. Discharge Instructions to patient/family Please see electronic discharge instructions given to patient. Discharge Medications Reviewed and agree with Discharge Medication list on patient's Discharge Instruction sheet Clinical Quality Measures DVT/VTE Risk/Contraindication: Risk Factor Score Per Nursin RFS Level Per Nursing on Admit: 4+=Very High CRISS CORTEZ MD Sep 25, 2019 11:40 POS
[2019-09-25] MEDS ORDERED: INSU100V5 SQ (11:45)
[2019-09-25] MEDS ORDERED: FLUC100T6 PO (11:45)
[2019-09-25] MEDS ORDERED: IBUP-844 PO (11:45)
--- NOTE | 2019-09-25 11:49 | D/C HH Face to Face Order ---
Discharge Summary Reconcile Patient Problems Problems Reviewed?: Yes Instructions for Patient [facility], Assessment/Instructions Poorly Controlled IDDM, needs DM teaching and importance of controlling DM Safety Review Medication Teaching Wound care Physician to follow Patient: narcisa Patricio appt on 10/02 @ 440 Discharge Diet for Home: ADA Diet, Cardiac Diet Hospital Course Date of Admission: Sep 23, 2019 at 21:52 Admission Diagnosis : Family Physician/Provider: Dave Lorenzana MD Date of Discharge: 09/25/19 Discharge Diagnosis: [ ] Hospital Course: [ ] Labs and Pending Lab Test: Laboratory Tests 09/24/19 14:00: Sodium Level 131L, Potassium Level 4.7, Chloride Level 95L, Carbon Dioxide Level 28, Anion Gap 8, Blood Urea Nitrogen 15, Creatinine 0.77, Estimat Glomerular Filtration Rate > 60, BUN/Creatinine Ratio 19, Glucose Level 110H, Calcium Level 8.5, Phosphorus Level 2.2L, Magnesium Level 1.7 09/24/19 16:11: Glucometer 98 09/24/19 21:09: Glucometer 149H 09/25/19 00:00: Glucometer 69L 09/25/19 00:57: Glucometer 50*L 09/25/19 01:28: Glucometer 87 09/25/19 04:32: White Blood Count 9.6, Red Blood Count 4.79, Hemoglobin 10.5L, Hematocrit 36, Mean Corpuscular Volume 75L, Mean Corpuscular Hemoglobin 22L, Mean Corpuscular Hemoglobin Concent 29L, Red Cell Distribution Width 19.0H, Platelet Count 252, Mean Platelet Volume 11.7H, Neutrophils (%) (Auto) 82H, Lymphocytes (%) (Auto) 11L, Monocytes (%) (Auto) 6, Eosinophils (%) (Auto) 1, Basophils (%) (Auto) 0, Neutrophils # (Auto) 7.9H, Lymphocytes # (Auto) 1.1, Monocytes # (Auto) 0.6, Eosinophils # (Auto) 0.1, Basophils # (Auto) 0.0, Sodium Level 131L, Potassium Level 5.2H, Chloride Level 96L, Carbon Dioxide Level 27, Anion Gap 8, Blood Urea Nitrogen 18, Creatinine 0.85, Estimat Glomerular Filtration Rate > 60, BUN/Creatinine Ratio 21, Glucose Level 136H, Calcium Level 8.4L, Phosphorus Level 3.0, Magnesium Level 1.8 09/25/19 05:40: Glucometer 140H 09/25/19 10:23: Glucometer 354H Microbiology 09/23/19 MRSA Screen - Final, Complete MRSA not isolated Home Meds Active Levemir (Insulin Determir) 1,000 Units/10 Ml Soln 20 Unit SQ HS 30 Days Ibu (Ibuprofen) 600 Mg Tablet 600 Mg PO Q6HR PRN Fluconazole 100 Mg Tablet 100 Mg PO DAILY 14 Days Reported Hydrocodone-Acetamin 5-325 mg (Hydrocodone/Acetaminophen) 1 Each Tablet 1 Tab PO Q8H PRN 7 Days Atorvastatin Calcium 40 Mg Tablet 40 Mg PO DAILY Metformin HCl 500 Mg Tablet 500 Mg PO BID Lisinopril 2.5 Mg Tablet 2.5 Mg PO DAILY TAKES 2 (2.5MG) TABLETS Furosemide 40 Mg Tablet 40 Mg PO HS Carvedilol 3.125 Mg Tablet 3.125 Mg PO BID Levemir Flextouch (Insulin Detemir) 100 Unit/1 Ml Insuln.pen 15-20 Unit SQ HS Novolog Flexpen (Insulin Aspart) 300 Units/3 Ml Solution 10-12 Units SQ TIDAC Patient Allergies: Coded Allergies: Penicillins (Verified Allergy, Unknown, 04/06/19) Height (Feet): 5 Height (Inches): 11.00 Weight (Pounds): 203 Weight (Ounces): 1.0 Home Health Need/Face to Face Date of Face to Face: Sep 25, 2019 Clinical Findings: Muscle weakness, Shortness of breath I have seen Pt [id number]: Yes Discharged To: Home Diagnosis/Conditions: IDDM Uncontrolled [place] Skin infection Patient is Homebound due to: Huma fall risk due to instabilty, Pain w/ambulation, Shortness of breath/distress Homebound Status Due to the above stated illness, injury or surgical procedure (medical condition or diagnosis) and associated clinical findings, the patient is homebound because of his/her inability to leave home except with aid of a supportive device and/or person AND leaving the home requires a considerable and taxing effort or is medically contraindicated. Pt req the following assistanc: Aid of another person Home Health Nursing Orders Home Health Services Order: Nursing Services, Physical Therapy-Evaluate & Treat, Wound Care-Eval/Treat Home Health Infusion Therapy Line Start Date: Sep 23, 2019 Certify Stmt I certify that this patient is under my care and that I, a nurse practitioner or a physician; a assistant office manager working with me, had a face to face encounter that - meets the physician face to face encounter requirements with this patient as dated. Discharge Physical Exam General: Alert, Oriented X3, Cooperative Lungs: Clear to Auscultation, Normal Air Movement Heart: Regular Rate, No Murmurs Abdomen: Normal Bowel Sounds, Soft, No Tenderness, No Masses Skin: Other (Fleshy red rash in perinum, very tender to touch, scabed wounds present all over body) CRISS CORTEZ MD Sep 25, 2019 11:49 POS
--- NOTE | 2019-09-25 12:54 | NUR ---
CM/SS spoke with patient for discharge planning. Patient will have HHC at discharge and her preference was for [facility], referral sent. Choice form in the chart. Addendum: 09/25/19 at 1328 by BRANDI HENDERSON Provided the patient with information on [employer].
[2019-09-25 15:28] VITALS: BP 103/70
[2019-09-25] MEDS: FUROSEMIDE 40 MG (LASIX) TAB PO SCH (16:14)
--- NOTE | 2019-09-25 16:58 | NUR ---
PT HAD 160 OUT IN HE[place]O FROM 7A TO 1400. HE[place] WAS REMOVED AT 1450. PT UNABLE TO URINATE. BLADDER SCANNED WITH [address] CORTEZ NOTIFIED VIA PHONE AND GAVE ORDERS TO D/C DISCHARGE ORDERS IF PT UNABLE TO URINATE. PT NOTIFIED OF THIS AND STATED SHE WOULD BE LEAVING EITHER WAY. 171- PT REPORTS NEEDING TO URINATE, REFUSED TO USE BSC REQUESTED BY PHYSICIAN. PT WAS PLACED ON BEDPAN AND URINATED 100ML, WITH THE BED ALSO SATURATED FROM URINE. DR CORTEZ NOTIFIED OF THIS. GAVE OKAY TO DISCHARGE AT THIS TIME.
== END 2019-09-25 18:06 | disposition home health service (06) ==
LOC: EDUNIT# 20:09 → ER 20:11 → ICU 21:52 → 4TH 09-24 15:48
PROVIDERS: ADMIT Internal Medicine; ATTEND Internal Medicine
DX: E11.65 Type 2 diabetes mellitus with hyperglycemia (principal); E11.40 Type 2 diabetes mellitus with diabetic neuropathy, unspecified; E78.1 Pure hyperglyceridemia; I25.10 Atherosclerotic heart disease of native coronary artery without angina pectoris; I82.419 Acute embolism and thrombosis of unspecified femoral vein; D64.9 Anemia, unspecified; E78.5 Hyperlipidemia, unspecified; E03.9 Hypothyroidism, unspecified; B37.9 Candidiasis, unspecified; G40.909 Epilepsy, unspecified, not intractable, without status epilepticus; G89.29 Other chronic pain; M54.9 Dorsalgia, unspecified; N39.0 Urinary tract infection, site not specified; I50.9 Heart failure, unspecified; K21.9 Gastro-esophageal reflux disease without esophagitis; M19.90 Unspecified osteoarthritis, unspecified site; F41.8 Other specified anxiety disorders; F17.210 Nicotine dependence, cigarettes, uncomplicated; F19.10 Other psychoactive substance abuse, uncomplicated; Z88.0 Allergy status to penicillin; Z79.4 Long term (current) use of insulin; Z90.710 Acquired absence of both cervix and uterus; Z98.51 Tubal ligation status; Z90.49 Acquired absence of other specified parts of digestive tract; Z82.49 Family history of ischemic heart disease and other diseases of the circulatory system
CPT/HCPCS: 36415; 51702; 71045; 80048; 80053; 80306; 81000; 82010; 82962; 83036; 83735; 83880; 84100; 85007; 85025; 85027; 87081; 94640; 94760; 96361; 96374; 96375; G0378

== ENCOUNTER 2019-09-28 14:46 | Inpatient (IN) | payer MEDICAID ==
[~2019-09-28] VITALS: Ht 180.3 cm; Wt 91.2 kg
[~2019-09-28 14:46] MED LIST changes: +FLUC100T6 PO; +HYDR-3812 PO; +IBUP-844 PO; +INSU100V5 SQ
--- NOTE | 2019-09-28 15:00 | ED General ---
General Stated Complaint: SWELLING, SOA Source of Information: Patient Exam Limitations: No Limitations History of Present Illness Date Seen by Provider: Sep 28, 2019 Time Seen by Provider: 14:58 Initial Comments To ER per private vehicle from home with reports of weight gain, increased swelling all over, shortness of breath. She was released from this hospital 3 days ago following a CHF exacerbation. She states that she has been taking her Lasix at home but denies any improvement. Timing/Duration: 1-2 Days Severity: Moderate Associated Systoms: Shortness of Air Allergies and Home Medications Allergies Coded Allergies: Penicillins (Verified Allergy, Unknown, 04/06/19) Home Medications Atorvastatin Calcium 40 Mg Tablet, 40 MG PO DAILY, (Reported) Carvedilol 3.125 Mg Tablet, 3.125 MG PO BID, (Reported) Fluconazole 100 Mg Tablet, 100 MG PO DAILY Prescribed by: CRISS CORTEZ on 09/25/19 1145 Furosemide 40 Mg Tablet, 40 MG PO DAILY, (Reported) Hydrocodone/Acetaminophen 1 Each Tablet, 1 TAB PO Q8H PRN for PAIN-MODERATE, (Reported) Ibuprofen 600 Mg Tablet, 600 MG PO Q6HR PRN for PAIN-MILD Prescribed by: CRISS CORTEZ on 09/25/19 1145 Insulin Aspart 300 Units/3 Ml Solution, 10-12 UNITS SQ TIDAC, (Reported) Insulin Determir 1,000 Units/10 Ml Soln, 20 UNIT SQ HS Prescribed by: CRISS CORTEZ on 09/25/19 1145 Lisinopril 2.5 Mg Tablet, 2.5 MG PO DAILY, (Reported) TAKES 2 (2.5MG) TABLETS Metformin HCl 500 Mg Tablet, 500 MG PO BID, (Reported) Patient Home Medication List Home Medication List Reviewed: Yes Review of Systems Review of Systems Constitutional: see HPI EENTM: see HPI Respiratory: see HPI Cardiovascular: no symptoms reported Genitourinary: no symptoms reported Musculoskeletal: no symptoms reported Skin: no symptoms reported Psychiatric/Neurological: No Symptoms Reported Hematologic/Lymphatic: No Symptoms Reported Past Qgwvcxs-Qqvvwz-Irmvxa Hx Patient Social History Drug of Choice: +IV METH AND COCAINE USE, ALSO SMOKES/SNORTS THEM. BENZODIAZEPINE ABUSE Type Used: Cigarettes 2nd Hand Smoke Exposure: Yes Recent Foreign Travel: No Contact w/Someone Who Travel: No Recent Hopitalizations: Yes Immunizations Up To Date Tetanus Booster (TDap): Less than 5yrs PED Vaccines UTD: No Date of Pneumonia Vaccine: Aug 09, 2017 Date of Influenza Vaccine: Sep 08, 2018 Seasonal Allergies Seasonal Allergies: No Past Medical History Surgeries: Yes Amputation, Appendectomy, Section, Gallbladder, Hysterectomy, Oophorectomy, Orthopedic, Tubal Ligation, Vascular Surgery Respiratory: Yes Pneumonia, COPD Currently Using CPAP: No Currently Using BIPAP: No Cardiac: Yes Cardiomyopathy, Deep Vein Thrombosis, High Cholesterol, Hypertension, Peripheral Vascular Neurological: Yes (PSEUDOSEIZURES; SEIZURE 09/06/18 --POSSIBLY DUE TO METH USE) Concussion, Headaches /Migraines, Neuropathy, Seizure Disorder, Traumatic Brain Injury 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 Disorders: Yes 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 Disorders: Denies, 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, Menopausal Sexually Transmitted Disease: No HIV/AIDS: No Genitourinary: Yes (LEFT RENAL ARTERY THROMBUS WITH INFARCT) Bladder Infection, Kidney Stones, Renal Failure, UTI-Chronic Gastrointestinal: Yes (SPLENIC EMBOLI WITH INFARCT; GASTROPARESIS) Gastroesophageal Reflux Musculoskeletal: Yes (L2 COMPRESSION FX 10/17/17) Degenerate Disk Disease, Arthritis, Back Injury, Chronic Back Pain, Fractures Endocrine: Yes (NON-COMPLIANCE; DKA MUJLTIPLE TIMES.) Diabetes, Insulin dep, Hypothyroidsim HEENT: No Cancer: No Psychosocial: Yes (POLYSUBSTANCE ABUSE) Pseudo Seizures, Sleep Difficulties, Anxiety, Bipolar, Schizophrenia, Depression Integumentary: Yes (MRSA ABSCESSES) Blood Disorders: Yes (iron deficiency anemia) Adverse Reaction/Blood Tranf: No Family Medical History Diabetes mellitus 19 FATHER 19 MOTHER G8 BROTHER G8 SISTER FH: COPD (chronic obstructive pulmonary disease) G8 SISTER Myocardial infarction 19 MOTHER Physical Exam Vital Signs Vital Signs - First Documented 09/28/19 14:46 Temp 36.2 Pulse 83 Resp 22 B/P (MAP) 117/67 (84) Pulse Ox 94 O2 Delivery Room Air Capillary Refill : Height, Weight, BMI Height: 5'11.00" Weight: 203lbs. 1.0oz. 92.068693xm; 29.00 BMI Method:Estimated General Appearance: No Apparent Distress, WD/WN Eyes: Bilateral Eye Normal Inspection, Bilateral Eye PERRL, Bilateral Eye EOMI HEENT: PERRL/EOMI, TMs Normal, Normal ENT Inspection Neck: Full Range of Motion, Normal Inspection Respiratory: Normal Breath Sounds, No Accessory Muscle Use, No Respiratory Distress Cardiovascular: Regular Rate, Rhythm, Normal Peripheral Pulses Gastrointestinal: Normal Bowel Sounds, Non Tender, Soft Extremity: Normal Capillary Refill, Normal Inspection, Other (previous left below the knee amputation. Stump clean dry intact. right leg has pitting edema 2+ up to hip, edema to abdominal wall--anasarca. ) Neurologic/Psychiatric: Alert, Oriented x3 Skin: Normal Color, Warm/Dry, Rash (erythema beneath abdominal fold, groin folds, and beneath breasts. ) Progress/Results/Core Measures Suspected Sepsis SIRS Temperature: Pulse: Respiratory Rate: Laboratory Tests 09/28/19 15:00: White Blood Count 9.1 Blood Pressure / Mean: Laboratory Tests 09/28/19 15:00: Creatinine 1.05, Platelet Count 324, Total Bilirubin 0.5 Results/Orders Lab Results Laboratory Tests Test 09/28/19 15:00 09/28/19 15:30 Range/Units White Blood Count 9.1 4.3-11.0 10^3/uL Red Blood Count 4.93 4.35-5.85 10^6/uL Hemoglobin 10.8 L 11.5-16.0 G/DL Hematocrit 37 35-52 % Mean Corpuscular Volume 75 L 80-99 FL Mean Corpuscular Hemoglobin 22 L 25-34 PG Mean Corpuscular Hemoglobin Concent 29 L 32-36 G/DL Red Cell Distribution Width 20.1 H 10.0-14.5 % Platelet Count 324 130-400 10^3/uL Mean Platelet Volume 11.4 H 7.4-10.4 FL Neutrophils (%) (Auto) 77 H 42-75 % Lymphocytes (%) (Auto) 13 12-44 % Monocytes (%) (Auto) 8 0-12 % Eosinophils (%) (Auto) 2 0-10 % Basophils (%) (Auto) 0 0-10 % Neutrophils # (Auto) 7.0 1.8-7.8 X 10^3 Lymphocytes # (Auto) 1.2 1.0-4.0 X 10^3 Monocytes # (Auto) 0.7 0.0-1.0 X 10^3 Eosinophils # (Auto) 0.2 0.0-0.3 10^3/uL Basophils # (Auto) 0.0 0.0-0.1 10^3/uL Sodium Level 132 L 135-145 MMOL/L Potassium Level 4.8 3.6-5.0 MMOL/L Chloride Level 98 98-107 MMOL/L Carbon Dioxide Level 22 21-32 MMOL/L Anion Gap 12 5-14 MMOL/L Blood Urea Nitrogen 19 H 7-18 MG/DL Creatinine 1.05 0.60-1.30 MG/DL Estimat Glomerular Filtration Rate 55 BUN/Creatinine Ratio 18 Glucose Level 330 H 70-105 MG/DL Calcium Level 8.9 8.5-10.1 MG/DL Corrected Calcium 9.7 8.5-10.1 MG/DL Total Bilirubin 0.5 0.1-1.0 MG/DL Aspartate Amino Transf (AST/SGOT) 30 5-34 U/L Alanine Aminotransferase (ALT/SGPT) 30 0-55 U/L Alkaline Phosphatase 375 H 40-136 U/L Troponin I 0.041 H <0.028 NG/ML B-Type Natriuretic Peptide 3206.2 H <100.0 PG/ML Total Protein 6.5 6.4-8.2 GM/DL Albumin 3.0 L 3.2-4.5 GM/DL Thyroid Stimulating Hormone (TSH) 6.21 H 0.35-4.94 UIU/ML Urine Color YELLOW Urine Clarity CLEAR Urine pH 5 5-9 Urine Specific [place] 1.015 L 1.016-1.022 Urine Protein 3+ H NEGATIVE Urine Glucose (UA) 4+ H NEGATIVE Urine Ketones NEGATIVE NEGATIVE Urine Nitrite NEGATIVE NEGATIVE Urine Bilirubin NEGATIVE NEGATIVE Urine Urobilinogen NORMAL NORMAL MG/DL Urine Leukocyte Esterase NEGATIVE NEGATIVE Urine RBC (Auto) 2+ H NEGATIVE Urine RBC 2-5 H /HPF Urine WBC RARE /HPF Urine Squamous Epithelial Cells 0-2 /HPF Urine Crystals PRESENT H /LPF Urine Amorphous Sediment MOD KAILEY URATES H /LPF Urine Bacteria FEW H /HPF Urine Casts NONE /LPF Urine Mucus NEGATIVE /LPF Urine Culture Indicated NO Urine Opiates Screen POSITIVE H NEGATIVE Urine Oxycodone Screen NEGATIVE NEGATIVE Urine Methadone Screen NEGATIVE NEGATIVE Urine Propoxyphene Screen NEGATIVE NEGATIVE Urine Barbiturates Screen NEGATIVE NEGATIVE Ur Tricyclic Antidepressants Screen NEGATIVE NEGATIVE Urine Phencyclidine Screen NEGATIVE NEGATIVE Urine Amphetamines Screen NEGATIVE NEGATIVE Urine Methamphetamines Screen NEGATIVE NEGATIVE Urine Benzodiazepines Screen NEGATIVE NEGATIVE Urine Cocaine Screen NEGATIVE NEGATIVE Urine Cannabinoids Screen NEGATIVE NEGATIVE My Orders Orders - BALWINDER MARIE TILE ROOFER BNP (09/28/19 14:52) Thyroid Stimulating Hormone (09/28/19 14:52) Troponin I (09/28/19 14:52) Ekg Tracing (09/28/19 14:52) Chest 1 View, Ap/Pa Only (09/28/19 14:52) Cbc With Automated Diff (09/28/19 14:52) Comprehensive Metabolic Panel (09/28/19 14:52) Ua Culture If Indicated (09/28/19 14:52) Ed Iv/Invasive Line Start (09/28/19 14:52) Drug Screen Stat (Urine) (09/28/19 14:52) Nystatin Cream (Mycostatin Cream) (09/28/19 21:00) Furosemide Injection (Lasix Injection) (09/28/19 16:30) Vital Signs/I&O 09/28/19 14:46 Temp 36.2 Pulse 83 Resp 22 B/P (MAP) 117/67 (84) Pulse Ox 94 O2 Delivery Room Air Capillary Refill : Diagnostic Imaging Diagonstic Imaging: Xray Comments NAME: ANNI OLIVARES MED REC#: [id number] PT STATUS: REG ER : 1970 PHYSICIAN: BALWINDER MARIE TILE ROOFER ADMIT DATE: 09/28/19/ER Draft POSDate of Exam:09/28/19 CHEST 1 VIEW, AP/PA ONLY PATIENT HISTORY: Shortness of air. TECHNIQUE: Frontal view of the chest. COMPARISON: 09/24/2019. FINDINGS: There is a small left pleural effusion with left basilar airspace opacities. The cardiac silhouette is partially obscured but appears stable in size. No pneumothorax is seen. The right pleural effusion is improved. IMPRESSION: Small left pleural effusion with associated airspace consolidation, may represent atelectasis or infiltrate. This appears increased compared to the prior exam. Dictated on workstation # [id number] Dict: 09/28/19 1533 Trans: 09/28/19 1543 [id number] Interpreted by: ELISE REAGAN MD Electronically signed by: Departure Communication (Admissions) Time/Spoke to Admitting Phy: 16:[address] Jones, we'll admit to cardiac stepdown, consult Dr. Agrawal for the left pleural effusion that is enlarging and Dr. Cedeno from the congestive heart failure standpoint. Impression Primary Impression: Heart failure Qualified Codes: I50.9 - Heart failure, unspecified Additional Impression: Anasarca Disposition: ADMITTED INPATIENT Condition: Stable Admissions Decision to Admit Reason: Admit from ER (General) Decision to Admit/Date: Sep 28, 2019 Time/Decision to Admit Time: 16:48 Departure-Patient Inst. Referrals: [facility] [place]) Primary Care Physician YANI CESAR MD (Family) Primary Care Physician BALWINDER MARIE APRN Sep 28, 2019 15:00 POS
[2019-09-28 15:15] LABS: BASOPHILS % (AUTO) 0 % (0-10); EOSINOPHILS # (AUTO) 0.2 10^3/uL (0.0-0.3); EOSINOPHILS % (AUTO) 2 % (0-10); HEMATOCRIT 37 % (35-52); HEMOGLOBIN 10.8 G/DL (11.5-16.0); LYMPHOCYTES # (AUTO) 1.2 X 10^3 (1.0-4.0); LYMPHOCYTES % (AUTO) 13 % (12-44); MEAN CORPUSCULAR HEMOGLOBIN 22 PG (25-34); MEAN CORPUSCULAR HGB CONC 29 G/DL (32-36); MEAN CORPUSCULAR VOLUME 75 FL (80-99); MEAN PLATELET VOLUME 11.4 FL (7.4-10.4); MONOCYTES # (AUTO) 0.7 X 10^3 (0.0-1.0); MONOCYTES % (AUTO) 8 % (0-12); NEUTROPHILS % (AUTO) 77 % (42-75); PLATELET COUNT 324 10^3/uL (130-400); RED CELL DISTRIBUTION WIDTH 20.1 % (10.0-14.5); WHITE BLOOD COUNT 9.1 10^3/uL (4.3-11.0)
[2019-09-28 15:39] LABS: BILIRUBIN,TOTAL 0.5 MG/DL (0.1-1.0); CALCIUM 8.9 MG/DL (8.5-10.1); CREATININE SERUM 1.05 MG/DL (0.60-1.30); POTASSIUM 4.8 MMOL/L (3.6-5.0); TOTAL PROTEIN 6.5 GM/DL (6.4-8.2)
--- NOTE | 2019-09-28 15:44 | Diagnostic Imaging Report ---
PATIENT HISTORY: Shortness of air. TECHNIQUE: Frontal view of the chest. COMPARISON: 09/24/2019. FINDINGS: There is a small left pleural effusion with left basilar airspace opacities. The cardiac silhouette is partially obscured but appears stable in size. No pneumothorax is seen. The right pleural effusion is improved. IMPRESSION: Small left pleural effusion with associated airspace consolidation, may represent atelectasis or infiltrate. This appears increased compared to the prior exam. Dictated by: Dictated on workstation # [id number]
[2019-09-28 15:58] LABS: BILIRUBIN,URINE NEGATIVE (NEGATIVE); CLARITY,URINE CLEAR; COLOR,URINE YELLOW; GLUCOSE, URINE (UA) 4+ (NEGATIVE); KETONES,URINE NEGATIVE (NEGATIVE); LEUKOCYTE ESTERASE ,URINE NEGATIVE (NEGATIVE); NITRITE,URINE NEGATIVE (NEGATIVE); PH,URINE 5 (5-9); PROTEIN,URINE 3+ (NEGATIVE)
[2019-09-28 16:14] LABS: AMPHETAMINE SCREEN, URINE NEGATIVE (NEGATIVE); BARBITURATE SCREEN URINE NEGATIVE (NEGATIVE); BENZODIAZEPINES SCREEN URINE NEGATIVE (NEGATIVE); CANNABINOID SCREEN, URINE NEGATIVE (NEGATIVE); COCAINE SCREEN URINE NEGATIVE (NEGATIVE); METHADONE STAT NEGATIVE (NEGATIVE); METHAMPHETAMINE SCREEN URINE S NEGATIVE (NEGATIVE); OPIATE SCREEN URINE POSITIVE (NEGATIVE); OXYCODONE STAT NEGATIVE (NEGATIVE); PROPOXYPHENE STAT NEGATIVE (NEGATIVE); TRICYCLIC ANTIDEPRESSANTS SCRE NEGATIVE (NEGATIVE)
[2019-09-28 16:21] LABS: AMORPHOUS SEDIMENT,UR MOD AMOR URATES /LPF; BACTERIA,URINE FEW /HPF; SQUAMOUS EPITHELIAL CELL,UR 0-2 /HPF; WBC,URINE RARE /HPF
[2019-09-28] MEDS ORDERED: FUROSEMIDE 40 MG/4 ML INJ (LASIX) IVP ONE (16:30)
--- NOTE | 2019-09-28 17:32 | History & Physical-Hospitalist ---
History of Present Illness HPI/Chief Complaint Chief complaint: Shortness of breath History of present illness: This is a 49-year-old white female clinic patient of [facility] with a past medical history of congestive heart failure and methamphetamine use who presented to the ER found to have elevated BNP with hypoxia and shortness of breath. She was admitted and consulted Dr. Agrawal and Dr. Dunbar due to pleural effusion and elevated BNP with ejection fraction of 25 percent respectively. Patient reports chronic pain and only wears oxygen at home as needed. Source: patient, RN/MD, old records Exam Limitations: no limitations Date Seen 09/28/19 Time Seen by a Provider: 17:00 Attending Physician Roberta Santiago DO [facility] [place] Referring Physician Date of Admission Sep 28, 2019 at 16:46 Home Medications & Allergies Home Medications Reviewed patient Home Medication Reconciliation performed by pharmacy medication reconciliations pharmaceutical laboratory technician and/or nursing. Patients Allergies have been reviewed. Allergies Allergies Coded Allergies Penicillins (Verified Allergy, Unknown, 04/06/19) Past Zvdvbzg-Zmwemg-Kmqias Hx Past Med/Social Hx: Reviewed Nursing Past Med/Soc Hx, Reviewed and Corrections made Patient Social History Marrital Status: single Employed/Student: unemployed Alcohol Use: Denies Use Recreational Drug Use: No (SMOKES 1PPD) Drug of Choice: +IV METH AND COCAINE USE, ALSO SMOKES/SNORTS THEM. BENZODIAZEPINE ABUSE Former Smoker, Quit: Aug 07, 2016 Type Used: Cigarettes 2nd Hand Smoke Exposure: Yes Recent Foreign Travel: No Contact w/other who traveled: No Recent Hopitalizations: Yes Recent Infectious Disease Expo: No Immunizations Up To Date Tetanus Booster (TDap): Less than 5yrs Pediatric: No Date of Pneumonia Vaccine: Aug 09, 2017 Date of Influenza Vaccine: Sep 08, 2018 Seasonal Allergies Seasonal Allergies: No Past Medical History Surgeries: Amputation, Appendectomy, Section, Gallbladder, Hysterectomy, Oophorectomy, Orthopedic, Tubal Ligation, Vascular Surgery Currently Using CPAP: No Currently Using BIPAP: No Cardiac: Cardiomyopathy, Deep Vein Thrombosis, High Cholesterol, Hypertension, Peripheral Vascular Neurological: Concussion, Headaches /Migraines, Neuropathy, Seizure Disorder, Traumatic Brain Injury 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: Yes Sexually Transmitted Disease: No HIV/AIDS: No 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 Disorders: Denies, Menstrual Problems Hysterectomy, Menopausal Genitourinary: Bladder Infection, Kidney Stones, Renal Failure, UTI-Chronic Gastrointestinal: Gastroesophageal Reflux Musculoskeletal: Degenerate Disk Disease, Arthritis, Back Injury, Chronic Back Pain, Fractures Endocrine: Diabetes, Insulin dep, Hypothyroidsim Psychosocial: Pseudo Seizures, Sleep Difficulties, Anxiety, Bipolar, Schizophrenia, Depression History of Blood Disorders: Yes (iron deficiency anemia) Adverse Reaction to Blood [place]: No Family History Diabetes mellitus 19 FATHER 19 MOTHER G8 BROTHER G8 SISTER FH: COPD (chronic obstructive pulmonary disease) G8 SISTER Myocardial infarction 19 MOTHER Review of Systems Constitutional: see HPI, weakness Respiratory: dyspnea on exertion Cardiovascular: no symptoms reported Psychiatric/Neurological: Anxiety All Other Systems Reviewed Negative Unless Noted: Yes Physical Exam Physical Exam Vital Signs Vital Signs - First Documented 09/28/19 09/28/19 14:46 19:40 Temp 36.2 Pulse 83 Resp 22 B/P (MAP) 117/67 (84) Pulse Ox 94 O2 Delivery Room Air O2 Flow Rate 3.00 Capillary Refill : Greater Than 3 Seconds Height, Weight, BMI Height: 5'11.00" Weight: 203lbs. 1.0oz. 92.525095aw; 27.00 BMI Method:Estimated General Appearance: No Apparent Distress, WD/WN, Anxious, Chronically ill Eyes: Right Eye Normal Inspection, Right Eye PERRL HEENT: PERRL/EOMI, Normal ENT Inspection, Pharynx Normal, Moist Mucous Membranes Neck: Full Range of Motion, Normal Inspection, Non Tender Respiratory: Chest Non Tender, No Accessory Muscle Use, No Respiratory Distress, Crackles, Decreased Breath Sounds Cardiovascular: Regular Rate, Rhythm, No Edema, No Gallop, No JVD, No Murmur, Normal Peripheral Pulses Gastrointestinal: Normal Bowel Sounds, No Organomegaly, No Pulsatile Mass, Non Tender, Soft Back: Normal Inspection, No CVA Tenderness, No Vertebral Tenderness Extremity: Normal Capillary Refill, Normal Inspection, Normal Range of Motion, Non Tender, No Calf Tenderness, No Pedal Edema, Other (left below the knee amputation) Neurologic/Psychiatric: Alert, Oriented x3, No Motor/Sensory Deficits, Normal Mood/Affect, sanitarian inspector II-XII Norm as Tested Skin: Normal Color, Warm/Dry Lymphatic: No Adenopathy Results Results/Procedures Labs Laboratory Tests 09/28/19 15:00 09/29/19 03:05 Patient resulted labs reviewed. Assessment/Plan Admission Diagnosis Assessment: AECHF CHF EF 25% Bilateral pleural effusions secondary to CHF Hypoxia Hyponatremia IDDM Meth use History of left eyvou-egp-ebfz amputation Plan: IV Lasix O2 Zora Dunbar and Tanja appreciated Admission Status: Inpatient Order (span 2 midnights) Reason for Inpatient Admission: CHF severe 25% EF Diagnosis/Problems Diagnosis/Problems (1) Acute exacerbation of congestive heart failure Status: Acute (2) Hyponatremia Status: Acute (3) Anasarca Status: Acute (4) Substance abuse Status: Chronic (5) Acute renal insufficiency Status: Resolved Resolution Date/Time: 08/06/18 @ 15:37 (6) Pleural effusion (7) Left below-knee amputee ROBERTA SANTIAGO DO Sep 28, 2019 17:32 POS
[2019-09-28] MEDS ORDERED: HYDROcodone/APAP 5 MG/325 MG (LORTAB) TAB PO PRN (17:45)
[2019-09-28] MEDS ORDERED: diphenhydrAMINE 25 MG TAB (BENADRYL) PO PRN (17:45)
[2019-09-28] MEDS ORDERED: DOCUSATE SODIUM 100 MG (COLACE) CAP PO PRN (17:45)
[2019-09-28] MEDS ORDERED: ONDANSETRON 4 MG/2 ML (SDV) Z0FRAN IVP PRN (17:45)
[2019-09-28] MEDS ORDERED: MELATONIN 3 MG TABLET PO PRN (17:45)
[2019-09-28] MEDS ORDERED: ALPRAZolam 0.25 MG (XANAX) TAB PO PRN (17:45)
[2019-09-28] MEDS ORDERED: ACETAMINOPHEN 500 MG TAB (TYLENOL) PO PRN (17:45)
[2019-09-28] MEDS ORDERED: fentaNYL INJECTION 100 MCG/2 ML AMP IVP PRN (17:45)
[2019-09-28] MEDS ORDERED: CALCIUM CARBONATE 500 MG (TUMS) TAB.CHEW PO PRN (17:45)
[2019-09-28] MEDS ORDERED: ONDANSETRON 4 MG (ZOFRAN) ORAL DISSOLVE TAB PO PRN (17:45)
[2019-09-28] MEDS ORDERED: LOPERAMIDE 2 MG (IMODIUM) TABLET PO PRN (17:45)
--- NOTE | 2019-09-28 18:19 | NUR ---
f pt name] admitted to room 511-1, with an admitting diagnosis of CHF, on 09/28/19 from [place] via cart, accompanied by staff.ANNI OLIVARES introduced to surroundings, call light, bed controls, phone, TV, temperature control, lights, meal times, smoking policy, visitor policy, side rail policy, bathrooms and showers. Patient Rights given to patient in the handbook.ANNI OLIVARES verbalizes understanding that [facility] is not responsible for the loss or damage to any personal effects or valuables that are kept in the patients posession during their hospitalization. The following Patient Care Plans were discussed with the pt: Discharge Planning. ANNI OLIVARES verbalizes understanding of Interdisciplinary Patient Education. Patient and/or family were informed about the Rapid Response Team and its purpose. Patient received Patient Rights Booklet, which includes Privacy Act Statement and Data Collection Information Summary.
[2019-09-28 18:34] VITALS: BP 116/72
[2019-09-28] MEDS: ENOXAPARIN 40 MG/0.4 ML (LOVENOX) SYR SC SCH (18:47)
[2019-09-28] MEDS ORDERED: morphine INJ 4 MG/ML 1 ML (VIAL/SYRINGE) IV PRN (19:00)
[2019-09-28] MEDS ORDERED: ONDANSETRON 4 MG/2 ML (SDV) Z0FRAN IV PRN (19:00)
[2019-09-28] MEDS ORDERED: CATHETER FLUSH 10 ML SYR IV PRN (19:15)
[2019-09-28] MEDS ORDERED: FLU QUADRIvalent (5+ YOA) 2019-2020 (AFLURIA) 0.5 ML IM ONE (19:15)
[2019-09-28 19:40] VITALS: BP 126/80
[2019-09-28] MEDS: HYDROcodone/APAP 5 MG/325 MG (LORTAB) TAB PO PRN (19:42)
[2019-09-28] MEDS: SENNA W/DOCUSATE (SENOKOT S) TABLET PO SCH (19:43)
[2019-09-28] MEDS: KCL 10 MEQ TAB (MICRO K) PO SCH (19:59)
[2019-09-28] MEDS: NYSTATIN CREAM (MYCOSTATIN) 30 GM TUBE TP SCH (20:01)
[2019-09-28] MEDS ORDERED: RT-ALBUTEROL/IPRATROPIUM 3 ML (DUONEB) VIAL INH PRN (20:30)
[2019-09-28] MEDS: inSUlin ASPART (NovoLOG) 1 UNIT/0.01 ML (CHARGE PER UNIT) SC SCH (20:31)
--- NOTE | 2019-09-28 20:34 | NUR ---
NOTIFIED DR SANTIAGO OF CRITICAL BLOOD SUGAR 455. SEE ORDER HX
[2019-09-28] MEDS: RT-ALBUTEROL/IPRATROPIUM 3 ML (DUONEB) VIAL INH SCH (20:44)
[2019-09-28] MEDS ORDERED: inSUlin ASPART (NovoLOG) 1 UNIT/0.01 ML (CHARGE PER UNIT) SC ONE ×2 (20:45→21:00)
[2019-09-28] MEDS: CATHETER FLUSH 10 ML SYR IV SCH (20:57)
[2019-09-28] MEDS ORDERED: NYSTATIN CREAM (MYCOSTATIN) 30 GM TUBE TP SCH (21:00)
[2019-09-29] VITALS (7 sets, daily range): BP systolic 101–111; BP diastolic 61–69
[2019-09-29] MEDS: HYDROcodone/APAP 5 MG/325 MG (LORTAB) TAB PO PRN ×4 (00:54→20:54)
[2019-09-29 03:27] LABS: BASOPHILS % (AUTO) 0 % (0-10); EOSINOPHILS # (AUTO) 0.1 10^3/uL (0.0-0.3); EOSINOPHILS % (AUTO) 1 % (0-10); HEMATOCRIT 31 % (35-52); LYMPHOCYTES # (AUTO) 1.4 X 10^3 (1.0-4.0); LYMPHOCYTES % (AUTO) 11 % (12-44); MEAN CORPUSCULAR HEMOGLOBIN 22 PG (25-34); MEAN CORPUSCULAR HGB CONC 29 G/DL (32-36); MEAN CORPUSCULAR VOLUME 75 FL (80-99); MEAN PLATELET VOLUME 11.7 FL (7.4-10.4); MONOCYTES # (AUTO) 0.7 X 10^3 (0.0-1.0); MONOCYTES % (AUTO) 5 % (0-12); NEUTROPHILS # (AUTO) 10.8 X 10^3 (1.8-7.8); NEUTROPHILS % (AUTO) 83 % (42-75); PLATELET COUNT 302 10^3/uL (130-400); RED CELL DISTRIBUTION WIDTH 19.2 % (10.0-14.5)
[2019-09-29 03:44] LABS: ALANINE AMINOTRANSFERASE 28 U/L (0-55); ALBUMIN 2.4 GM/DL (3.2-4.5); ALKALINE PHOSPHATASE 310 U/L (40-136); BILIRUBIN,TOTAL 0.5 MG/DL (0.1-1.0); BUN/CREATININE RATIO 26; CALCIUM 8.3 MG/DL (8.5-10.1); CARBON DIOXIDE 24 MMOL/L (21-32); CHLORIDE 98 MMOL/L (98-107); CREATININE SERUM 0.84 MG/DL (0.60-1.30); GFR ESTIMATED > 60; GLUCOSE 223 MG/DL (70-105); MAGNESIUM 1.8 MG/DL (1.6-2.4); PHOSPHORUS 3.2 MG/DL (2.3-4.7); POTASSIUM 4.8 MMOL/L (3.6-5.0); SODIUM 133 MMOL/L (135-145); TOTAL PROTEIN 5.3 GM/DL (6.4-8.2)
[2019-09-29] MEDS: RT-ALBUTEROL/IPRATROPIUM 3 ML (DUONEB) VIAL INH SCH ×4 (03:52→22:01)
[2019-09-29] MEDS: CATHETER FLUSH 10 ML SYR IV SCH ×3 (05:00→20:55)
[2019-09-29] MEDS: FUROSEMIDE 40 MG/4 ML INJ (LASIX) IV SCH ×2 (05:08→16:58)
[2019-09-29] MEDS: KCL 10 MEQ TAB (MICRO K) PO SCH ×2 (05:08→16:58)
[2019-09-29] MEDS: inSUlin ASPART (NovoLOG) 1 UNIT/0.01 ML (CHARGE PER UNIT) SC SCH ×4 (05:08→20:19)
--- NOTE | 2019-09-29 05:36 | Pulmonary Consultation ---
History of Present Illness History of Present Illness Date of Consultation 09/29/19 05:34 Date of Admission Allergies and Home Medications Allergies Coded Allergies: Penicillins (Verified Allergy, Unknown, 04/06/19) Home Medications Atorvastatin Calcium 40 Mg Tablet, 40 MG PO DAILY, (Reported) Carvedilol 3.125 Mg Tablet, 3.125 MG PO BID, (Reported) Fluconazole 100 Mg Tablet, 100 MG PO DAILY Prescribed by: CRISS CORTEZ on 09/25/19 1145 Furosemide 40 Mg Tablet, 40 MG PO DAILY, (Reported) Hydrocodone/Acetaminophen 1 Each Tablet, 1 TAB PO Q8H PRN for PAIN-MODERATE, (Reported) Ibuprofen 600 Mg Tablet, 600 MG PO Q6HR PRN for PAIN-MILD Prescribed by: CRISS CORTEZ on 09/25/19 1145 Insulin Aspart 300 Units/3 Ml Solution, 10-12 UNITS SQ TIDAC, (Reported) Insulin Determir 1,000 Units/10 Ml Soln, 20 UNIT SQ HS Prescribed by: CRISS CORTEZ on 09/25/19 1145 Lisinopril 2.5 Mg Tablet, 2.5 MG PO DAILY, (Reported) TAKES 2 (2.5MG) TABLETS Metformin HCl 500 Mg Tablet, 500 MG PO BID, (Reported) Past Sfutfoa-Qewxoo-Sribof Hx Patient Social History Alcohol Use: Denies Use Recreational Drug Use: No (SMOKES 1PPD) Drug of Choice: +IV METH AND COCAINE USE, ALSO SMOKES/SNORTS THEM. BENZODIAZEPINE ABUSE Type Used: Cigarettes Former Smoker, Quit: Aug 07, 2016 2nd Hand Smoke Exposure: Yes Recent Foreign Travel: No Contact w/Someone Who Travel: No Recent Infectious Disease Expo: No Recent Hopitalizations: Yes Immunizations Up To Date Tetanus Booster (TDap): Less than 5yrs PED Vaccines UTD: No Date of Pneumonia Vaccine: Aug 09, 2017 Date of Influenza Vaccine: Sep 08, 2018 Seasonal Allergies Seasonal Allergies: No Past Medical History Surgeries: Yes Amputation, Appendectomy, Section, Gallbladder, Hysterectomy, Oophor ectomy, Orthopedic, Tubal Ligation, Vascular Surgery Respiratory: Yes Pneumonia, COPD Currently Using CPAP: No Currently Using BIPAP: No Cardiac: Yes Cardiomyopathy, Deep Vein Thrombosis, High Cholesterol, Hypertension, Peripheral Vascular Neurological: Yes (PSEUDOSEIZURES; SEIZURE 09/06/18 --POSSIBLY DUE TO METH USE) Concussion, Headaches /Migraines, Neuropathy, Seizure Disorder, Traumatic Brain Injury 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 Disorders: Yes 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 Disorders: Denies, Menstrual Problems 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, Menopausal Sexually Transmitted Disease: No HIV/AIDS: No Genitourinary: Yes (LEFT RENAL ARTERY THROMBUS WITH INFARCT) Bladder Infection, Kidney Stones, Renal Failure, UTI-Chronic Gastrointestinal: Yes (SPLENIC EMBOLI WITH INFARCT; GASTROPARESIS) Gastroesophageal Reflux Musculoskeletal: Yes (L2 COMPRESSION FX 10/17/17) Degenerate Disk Disease, Arthritis, Back Injury, Chronic Back Pain, Fractures Endocrine: Yes (NON-COMPLIANCE; DKA MUJLTIPLE TIMES.) Diabetes, Insulin dep, Hypothyroidsim HEENT: No Cancer: No Psychosocial: Yes (POLYSUBSTANCE ABUSE) Pseudo Seizures, Sleep Difficulties, Anxiety, Bipolar, Schizophrenia, Depression Integumentary: Yes (MRSA ABSCESSES) Blood Disorders: Yes (iron deficiency anemia) Adverse Reaction/Blood Tranf: No Family Medical History Diabetes mellitus 19 FATHER 19 MOTHER G8 BROTHER G8 SISTER FH: COPD (chronic obstructive pulmonary disease) G8 SISTER Myocardial infarction 19 MOTHER Review of Systems Time Seen by Provider: 05:36 Sepsis Event Evaluation Height, Weight, BMI Height: 5'11.00" Weight: 203lbs. 1.0oz. 92.582602ux; 27.96 BMI Method:Estimated Exam Exam Vital Signs Date Time Temp Pulse Resp B/P (MAP) Pulse Ox O2 Delivery O2 Flow Rate FiO2 09/29/19 04:00 95 Nasal Cannula 3.00 09/29/19 03:26 36.3 84 16 111/68 (82) 95 Nasal Cannula 3.00 09/29/19 01:00 93 09/29/19 00:00 36.9 81 18 103/61 (75) 97 Nasal Cannula 3.00 09/29/19 00:00 95 Nasal Cannula 3.00 09/28/19 21:00 Nasal Cannula 3.00 09/28/19 20:44 99 Nasal Cannula 3.00 09/28/19 20:00 97 Nasal Cannula 3.00 09/28/19 19:40 36.9 99 18 126/80 (95) 97 Nasal Cannula 3.00 09/28/19 19:00 98 09/28/19 18:34 36.4 90 18 116/72 94 Room Air 09/28/19 18:29 94 Room Air 09/28/19 18:13 36.2 87 18 128/88 (84) 94 Room Air 09/28/19 14:46 36.2 83 22 117/67 (84) 94 Room Air I & O 09/29/19 07:00 Intake Total 450 ml Output Total 1000 ml Balance -550 ml Height & Weight Height: 5'11.00" Weight: 203lbs. 1.0oz. 92.455966ib; 27.96 BMI Method:Estimated General Appearance: No Apparent Distress, WD/WN HEENT: PERRL/EOMI, TMs Normal, Normal ENT Inspection Neck: Full Range of Motion, Normal Inspection Respiratory: Normal Breath Sounds, No Accessory Muscle Use, No Respiratory Distress Cardiovascular: Regular Rate, Rhythm, Normal Peripheral Pulses Capillary Refill: Greater Than 3 Seconds Extremity: Normal Capillary Refill, Normal Inspection, Other (previous left below the knee amputation. Stump clean dry intact. right leg has pitting edema 2+ up to hip, edema to abdominal wall--anasarca. ) Neurologic/Psychiatric: Alert, Oriented x3 Skin: Normal Color, Warm/Dry, Rash (erythema beneath abdominal fold, groin folds, and beneath breasts. ) Results Lab Laboratory Tests 09/28/19 15:00 09/29/19 03:05 Assessment/Plan Assessment/Plan CHFAE -getting 80mg of IV Lasix -Cardiology following Small bilateral pleural effusions secondary to CHF EF 25% -Monitor -Continue lasix hyponatremia -monitor IDDM Hx of substance abuse -education OPHELIA GARCIA DO Sep 29, 2019 05:36 POS
[2019-09-29] MEDS: SENNA W/DOCUSATE (SENOKOT S) TABLET PO SCH ×3 (07:53→20:54)
[2019-09-29] MEDS: NYSTATIN CREAM (MYCOSTATIN) 30 GM TUBE TP SCH ×3 (07:53→20:54)
--- NOTE | 2019-09-29 08:20 | Diagnostic Imaging Report ---
INDICATION: CHF. COMPARISON: 09/28/2019. FINDINGS: Single view of the chest demonstrates cardiac enlargement with stable central vascular congestion. Stable effusions are present bilaterally. There is no pneumothorax. Osseous structures are stable. IMPRESSION: Unchanged aeration of the lungs. Dictated by: Dictated on workstation # [id number]
--- NOTE | 2019-09-29 10:35 | Consultation-Cardiology ---
HPI-Cardiology Cardiology Consultation: Date of Consultation 09/29/19 Time Seen by a Provider: 11:00 Date of Admission Attending Physician Roberta Jones DO Admitting Physician [facility] Consulting Physician MRALON ROBERSON MD, MA, FACP, FACC, FSCAI, CCDS HPI: Chief Complaint: CC: Shortness of breath HPI: 49 yo woman admitted to [facility] with increasing shortness of breath and swelling and abdominal bloating and gen malaise only a few days after she had been d/c'd for a hospitalization for CHF. Denies cp. Denies palp or syncope. Activity is limited due to L leg amputation and shortness of breath Review of Systems-Cardiology Review of Systems Constitutional: malaise, tiredness; No weight loss; weight gain Eyes: No vision change Ears/Nose/Throat: No ear discharge, No nasal drainage, No recent hearing loss Respiratory: As described under HPI Cardiovascular: As described under HPI Gastrointestinal: As described under HPI Genitourinary: No dysuria, No hematuria Musculoskeletal: back pain (chronic) Skin: No rash, No ulcerations Psychiatric/Neurological: No seizure, No focal weakness, No syncope Hematologic: No bleeding abnormalities FQB-Gmxevd-Thmgky Hx Patient Social History Alcohol Use: Denies Use Recreational Drug Use: No (SMOKES 1PPD) Drug of Choice: +IV METH AND COCAINE USE, ALSO SMOKES/SNORTS THEM. BENZODIAZEPINE ABUSE Type Used: Cigarettes 2nd Hand Smoke Exposure: Yes Recent Foreign Travel: No Recent Infectious Disease Expo: No Hospitalization with Isolation: Denies Immunizations Up To Date Tetanus Booster (TDap): Less than 5yrs Date of Pneumonia Vaccine: Aug 09, 2017 Date of Influenza Vaccine: Sep 08, 2018 Past Medical History PMH As described under Assessment. Family Medical History Family Medical History: She reports her mother passed from an [place] in her late 40's. She reports her father had CAD. Family History: Diabetes mellitus 19 FATHER 19 MOTHER G8 BROTHER G8 SISTER FH: COPD (chronic obstructive pulmonary disease) G8 SISTER Myocardial infarction 19 MOTHER Allergies and Home Medications Allergies Coded Allergies: Penicillins (Verified Allergy, Unknown, 04/06/19) Home Medications Atorvastatin Calcium 40 Mg Tablet, 40 MG PO DAILY, (Reported) Carvedilol 3.125 Mg Tablet, 3.125 MG PO BID, (Reported) Fluconazole 100 Mg Tablet, 100 MG PO DAILY Prescribed by: CRISS CORTEZ on 09/25/19 1145 Furosemide 40 Mg Tablet, 40 MG PO DAILY, (Reported) Hydrocodone/Acetaminophen 1 Each Tablet, 1 TAB PO Q8H PRN for PAIN-MODERATE, (Reported) Ibuprofen 600 Mg Tablet, 600 MG PO Q6HR PRN for PAIN-MILD Prescribed by: CRISS CORTEZ on 09/25/19 1145 Insulin Aspart 300 Units/3 Ml Solution, 10-12 UNITS SQ TIDAC, (Reported) Insulin Determir 1,000 Units/10 Ml Soln, 20 UNIT SQ HS Prescribed by: CRISS CORTEZ on 09/25/19 1145 Lisinopril 2.5 Mg Tablet, 2.5 MG PO DAILY, (Reported) TAKES 2 (2.5MG) TABLETS Metformin HCl 500 Mg Tablet, 500 MG PO BID, (Reported) Patient Home Medication List Home Medication List Reviewed: Yes Physical Exam-Cardiology Physical Exam Vital Signs/I&O 09/29/19 09/29/19 09/29/19 09/29/19 00:00 00:00 01:00 03:26 Temp 36.9 36.3 Pulse 81 93 84 Resp 18 16 B/P (MAP) 103/61 (75) 111/68 (82) Pulse Ox 95 97 95 O2 Delivery Nasal Cannula Nasal Cannula Nasal Cannula O2 Flow Rate 3.00 3.00 3.00 09/29/19 09/29/19 09/29/19 09/29/19 04:00 07:00 07:35 08:00 Pulse 86 Pulse Ox 95 91 97 O2 Delivery Nasal Cannula Nasal Cannula Room Air O2 Flow Rate 3.00 3.00 3.00 09/29/19 09/29/19 08:00 09:00 Temp 36.4 Pulse 87 Resp 16 B/P (MAP) 101/67 (78) Pulse Ox 97 97 O2 Delivery Nasal Cannula Room Air O2 Flow Rate 3.00 3.00 09/29/19 00:00 Intake Total 450 ml Output Total 1000 ml Balance -550 ml Capillary Refill : Greater Than 3 Seconds Constitutional: AAO x 3, well-developed, well-nourished HEENT: other (most teeth are missing), EOMI, hearing is well preserved; No xanthelasmas are seen Neck: carotid pulses are 2 + bilaterally, with good upstrokes Respiratory: No accessory muscle use; other (dullness to percussion on L base and mid zone; diminished breath sound in these zones) Cardiovascular: regular rate-rhythm, S1 and S2, systolic murmur (soft AMOL at card base) Gastrointestinal: No tender; soft; No guarding, No rebound; audible bowel sounds Extremities: other (L BKA, mod edema of the R lower leg); No clubbing, No cyanosis Neurologic/Psychiatric: oriented x 3, other (able to move all limbs equally) Data Review Labs Laboratory Tests 09/28/19 15:00: White Blood Count 9.1, Red Blood Count 4.93, Hemoglobin 10.8L, Hematocrit 37, Mean Corpuscular Volume 75L, Mean Corpuscular Hemoglobin 22L, Mean Corpuscular Hemoglobin Concent 29L, Red Cell Distribution Width 20.1H, Platelet Count 324, Mean Platelet Volume 11.4H, Neutrophils (%) (Auto) 77H, Lymphocytes (%) (Auto) 13, Monocytes (%) (Auto) 8, Eosinophils (%) (Auto) 2, Basophils (%) (Auto) 0, Neutrophils # (Auto) 7.0, Lymphocytes # (Auto) 1.2, Monocytes # (Auto) 0.7, Eosinophils # (Auto) 0.2, Basophils # (Auto) 0.0, Sodium Level 132L, Potassium Level 4.8, Chloride Level 98, Carbon Dioxide Level 22, Anion Gap 12, Blood Urea Nitrogen 19H, Creatinine 1.05, Estimat Glomerular Filtration Rate 55, BUN/Creatinine Ratio 18, Glucose Level 330H, Calcium Level 8.9, Corrected Calcium 9.7, Total Bilirubin 0.5, Aspartate Amino Transf (AST/SGOT) 30, Alanine Aminotransferase (ALT/SGPT) 30, Alkaline Phosphatase 375H, Troponin I 0.041H, B- Type Natriuretic Peptide 3206.2H, Total Protein 6.5, Albumin 3.0L, Thyroid Stimulating Hormone (TSH) 6.21H 09/28/19 15:30: Urine Color YELLOW, Urine Clarity CLEAR, Urine pH 5, Urine Specific [place] 1.015L, Urine Protein 3+H, Urine Glucose (UA) 4+H, Urine Ketones NEGATIVE, Urine Nitrite NEGATIVE, Urine Bilirubin NEGATIVE, Urine Urobilinogen NORMAL, Urine Leukocyte Esterase NEGATIVE, Urine RBC (Auto) 2+H, Urine RBC 2-5H, Urine WBC RARE, Urine Squamous Epithelial Cells 0-2, Urine Crystals PRESENTH, Urine Amorphous Sediment MOD KAILEY URATESH, Urine Bacteria FEWH, Urine Casts NONE, Urine Mucus NEGATIVE, Urine Culture Indicated NO, Urine Opiates Screen POSITIVEH , Urine Oxycodone Screen NEGATIVE, Urine Methadone Screen NEGATIVE, Urine Propoxyphene Screen NEGATIVE, Urine Barbiturates Screen NEGATIVE, Ur Tricyclic Antidepressants Screen NEGATIVE, Urine Phencyclidine Screen NEGATIVE, Urine Amphetamines Screen NEGATIVE, Urine Methamphetamines Screen NEGATIVE, Urine Benzodiazepines Screen NEGATIVE, Urine Cocaine Screen NEGATIVE, Urine Cannabinoids Screen NEGATIVE 09/28/19 20:00: Glucometer 455*H 09/29/19 03:05: White Blood Count 13.0H, Red Blood Count 4.10L, Hemoglobin 9.0L, Hematocrit 31L, Mean Corpuscular Volume 75L, Mean Corpuscular Hemoglobin 22L, Mean Corpuscular Hemoglobin Concent 29L, Red Cell Distribution Width 19.2H, Platelet Count 302, Mean Platelet Volume 11.7H, Neutrophils (%) (Auto) 83H, Lymphocytes (%) (Auto) 11L, Monocytes (%) (Auto) 5, Eosinophils (%) (Auto) 1, Basophils (%) (Auto) 0, Neutrophils # (Auto) 10.8H, Lymphocytes # (Auto) 1.4, Monocytes # (Auto) 0.7, Eosinophils # (Auto) 0.1, Basophils # (Auto) 0.0, Sodium Level 133L, Potassium Level 4.8, Chloride Level 98, Carbon Dioxide Level 24, Anion Gap 11, Blood Urea Nitrogen 22H, Creatinine 0.84, Estimat Glomerular Filtration Rate > 60, BUN/Creatinine Ratio 26, Glucose Level 223H, Calcium Level 8.3L, Corrected Calcium 9.6, Total Bilirubin 0.5, Aspartate Amino Transf (AST/SGOT) 46H, Alanine Aminotransferase (ALT/SGPT) 28, Alkaline Phosphatase 310H, Total Protein 5.3L, Albumin 2.4L, Phosphorus Level 3.2, Magnesium Level 1.8 Laboratory Tests 09/28/19 15:00 09/29/19 03:05 A/P-Cardiology Assessment/Admission Diagnosis Ac systolic CHF due to nonischemic, dilated cardiomyopathy Leucocytosis of undetermined etiology, being managed by the [facility] [place] Non-ischemic cardiomyopathy. Echo of 07/18/19: LVEF 25-30%, mod enlargement of LA, PASP 51 mmHg; Card cath of 07/20/19: no CAD, marked global hypokinesis, LVEDP 11 mmHg Abnormal ECG: Chronic atypical LBBB L pleural effusion, managed by the Pulm Svce DM II Hyponatremia, likely due to CHF and hyperglycemia L BKA Discussion and Recomendations * iv diuretics for decomp CHF * BB and ROSELINE-inhib for dilated cm, dose dictated by bp * Monitor labs * Keep on tele Clinical Quality Measures DVT/VTE Risk/Contraindication: Risk Factor Score Per Nursin RFS Level Per Nursing on Admit: 4+=Very High MARLON ROBERSON MD FACP [facility] CCDS Sep 29, 2019 10:35 POS
[2019-09-29] MEDS: lisINopril 5 MG (PRINIVIL) TABLET PO SCH (11:53)
[2019-09-29] MEDS: CARVEDILOL 3.125 MG (COREG) TABLET PO SCH ×2 (11:53→20:54)
--- NOTE | 2019-09-29 13:15 | Progress Note - Hospitalist ---
Subjective HPI/CC On Admission Date Seen by Provider: Sep 29, 2019 Time Seen by Provider: 12:00 Subjective/Events-last exam Patient feeling better IV diuresis is helping Fernández catheter maintain Pain medication is maintained Maintain on oxygen Nystatin powder will be applied after the cream and added Diflucan due to yeast infection of the skin Review of Systems General: Fatigue Pulmonary: Dyspnea Objective Exam Vital Signs Vital Signs Date Time Temp Pulse Resp B/P (MAP) Pulse Ox O2 Delivery O2 Flow Rate FiO2 09/29/19 12:13 82 09/29/19 09:00 97 Room Air 3.00 09/29/19 08:00 36.4 16 101/67 (78) Capillary Refill : Greater Than 3 Seconds General Appearance: No Apparent Distress, WD/WN, Chronically ill Respiratory: Chest Non Tender, Lungs Clear, Normal Breath Sounds, No Accessory Muscle Use, No Respiratory Distress Cardiovascular: Regular Rate, Rhythm, No Edema, No Gallop, No JVD, No Murmur, Normal Peripheral Pulses Neurologic/Psychiatric: Alert, Oriented x3, No Motor/Sensory Deficits, Normal Mood/Affect Skin: Other (yeast infection groin) Results/Procedures Lab Laboratory Tests 09/28/19 15:00 09/29/19 03:05 Patient resulted labs reviewed. Assessment/Plan Assessment and Plan Assess & Plan/Chief Complaint Assessment: AECHF CHF EF 25% Bilateral pleural effusions secondary to CHF Hypoxia Hyponatremia IDDM Meth use Yeast infection of the groin Plan: IV Lasix O2 Zora Dunbar and Tanja appreciated Clinical Quality Measures DVT/VTE Risk/Contraindication: Risk Factor Score Per Nursin RFS Level Per Nursing on Admit: 4+=Very High SAY SANTIAGO DO Sep 29, 2019 13:15 POS
[2019-09-29] MEDS: fluCOnazole (DIFLUCAN) 100 MG TAB PO SCH (14:22)
[2019-09-29] MEDS: ENOXAPARIN 40 MG/0.4 ML (LOVENOX) SYR SC SCH (16:58)
[2019-09-29] MEDS: MICONAZOLE 2% POWDER (DESENEX AF) 90 GM TOP SCH (20:54)
[2019-09-30] MEDS: HYDROcodone/APAP 5 MG/325 MG (LORTAB) TAB PO PRN ×4 (01:03→22:12)
[2019-09-30 03:06] LABS: BASOPHILS % (AUTO) 0 % (0-10); EOSINOPHILS # (AUTO) 0.2 10^3/uL (0.0-0.3); EOSINOPHILS % (AUTO) 2 % (0-10); HEMATOCRIT 32 % (35-52); HEMOGLOBIN 9.1 G/DL (11.5-16.0); LYMPHOCYTES # (AUTO) 1.2 X 10^3 (1.0-4.0); LYMPHOCYTES % (AUTO) 17 % (12-44); MEAN CORPUSCULAR HEMOGLOBIN 22 PG (25-34); MEAN CORPUSCULAR HGB CONC 29 G/DL (32-36); MEAN CORPUSCULAR VOLUME 75 FL (80-99); MEAN PLATELET VOLUME 11.4 FL (7.4-10.4); MONOCYTES # (AUTO) 0.7 X 10^3 (0.0-1.0); MONOCYTES % (AUTO) 9 % (0-12); NEUTROPHILS # (AUTO) 5.1 X 10^3 (1.8-7.8); NEUTROPHILS % (AUTO) 71 % (42-75); PLATELET COUNT 343 10^3/uL (130-400); RED CELL DISTRIBUTION WIDTH 20.2 % (10.0-14.5); WHITE BLOOD COUNT 7.1 10^3/uL (4.3-11.0)
[2019-09-30 03:30] LABS: CALCIUM 8.5 MG/DL (8.5-10.1); CREATININE SERUM 1.08 MG/DL (0.60-1.30); MAGNESIUM 1.9 MG/DL (1.6-2.4); PHOSPHORUS 4.7 MG/DL (2.3-4.7); POTASSIUM 5.8 MMOL/L (3.6-5.0)
[2019-09-30] MEDS: RT-ALBUTEROL/IPRATROPIUM 3 ML (DUONEB) VIAL INH SCH ×2 (04:20→08:01)
[2019-09-30 04:29] VITALS: BP 93/57
[2019-09-30] MEDS: FUROSEMIDE 40 MG/4 ML INJ (LASIX) IV SCH ×3 (05:22→18:12)
[2019-09-30] MEDS: inSUlin ASPART (NovoLOG) 1 UNIT/0.01 ML (CHARGE PER UNIT) SC SCH ×4 (05:22→23:30)
[2019-09-30] MEDS: CATHETER FLUSH 10 ML SYR IV SCH ×3 (05:22→22:00)
--- NOTE | 2019-09-30 06:03 | Pulmonary Progress Note ---
Subjective Time Seen by a Provider: 06:25 Subjective/Events-last exam Pt appears to be doing better. No complications noted. Sepsis Event Evaluation Height, Weight, BMI Height: 5'11.00" Weight: 203lbs. 1.0oz. 92.203759uw; 27.96 BMI Method:Estimated Exam Exam Vital Signs Date Time Temp Pulse Resp B/P (MAP) Pulse Ox O2 Delivery O2 Flow Rate FiO2 09/30/19 04:29 37.1 87 18 93/57 (69) 92 Nasal Cannula 3.00 09/30/19 04:00 96 Nasal Cannula 3.00 09/30/19 01:00 80 09/30/19 00:00 96 Nasal Cannula 3.00 09/29/19 23:39 36.8 85 16 110/64 (79) 93 Nasal Cannula 3.00 09/29/19 22:01 96 Room Air 09/29/19 21:00 96 Room Air 09/29/19 20:16 36.8 81 16 109/69 (82) 99 Room Air 09/29/19 20:00 96 Room Air 09/29/19 19:00 79 09/29/19 16:00 36.5 81 16 104/62 (76) 97 Room Air 09/29/19 16:00 95 Room Air 09/29/19 14:23 96 Room Air 09/29/19 12:13 82 09/29/19 12:00 95 Room Air 09/29/19 12:00 36.2 78 16 111/62 (78) 95 Room Air 09/29/19 09:00 97 Room Air 3.00 09/29/19 08:00 36.4 87 16 101/67 (78) 97 Nasal Cannula 3.00 09/29/19 08:00 97 Room Air 3.00 09/29/19 07:35 91 Nasal Cannula 3.00 09/29/19 07:00 86 I & O 09/30/19 07:00 Intake Total 2025 ml Output Total 1900 ml Balance 125 ml Height & Weight Height: 5'11.00" Weight: 203lbs. 1.0oz. 92.084232px; 27.96 BMI Method:Estimated General Appearance: No Apparent Distress, WD/WN, Chronically ill HEENT: PERRL/EOMI, Normal ENT Inspection, Pharynx Normal, Moist Mucous Membranes Neck: Full Range of Motion, Normal Inspection, Non Tender Respiratory: Chest Non Tender, Lungs Clear, Normal Breath Sounds, No Accessory Muscle Use, No Respiratory Distress Cardiovascular: Regular Rate, Rhythm, No Edema, No Gallop, No JVD, No Murmur, Normal Peripheral Pulses Capillary Refill: Greater Than 3 Seconds Extremity: Normal Capillary Refill, Normal Inspection, Normal Range of Motion, Non Tender, No Calf Tenderness, No Pedal Edema, Other (left below the knee amputation) Neurologic/Psychiatric: Alert, Oriented x3, No Motor/Sensory Deficits, Normal Mood/Affect Skin: Other (yeast infection groin) Lymphatic: No Adenopathy Results Lab Laboratory Tests 09/28/19 15:00 09/29/19 03:05 09/30/19 02:22 09/30/19 02:27 Assessment/Plan Assessment/Plan CHFAE - 80mg of IV Lasix currently -Cardiology following -Repeat CXR Hyperkalemia -Repeat labs at 11:00 Small bilateral pleural effusions secondary to CHF EF 25% -Monitor -Continue lasix hyponatremia -monitor IDDM Hx of substance abuse -education OPHELIA GARCIA DO Sep 30, 2019 06:03 POS
[2019-09-30] MEDS: KCL 10 MEQ TAB (MICRO K) PO SCH ×2 (06:49→17:09)
[2019-09-30 08:00] VITALS: BP 110/70
[2019-09-30] MEDS ORDERED: RT-ALBUTEROL/IPRATROPIUM 3 ML (DUONEB) VIAL INH PRN (08:15)
[2019-09-30] MEDS: SENNA W/DOCUSATE (SENOKOT S) TABLET PO SCH ×2 (09:27→22:09)
[2019-09-30] MEDS: lisINopril 5 MG (PRINIVIL) TABLET PO SCH (09:28)
[2019-09-30] MEDS: MICONAZOLE 2% POWDER (DESENEX AF) 90 GM TOP SCH ×2 (09:28→22:10)
[2019-09-30] MEDS: fluCOnazole (DIFLUCAN) 100 MG TAB PO SCH (09:28)
[2019-09-30] MEDS: CARVEDILOL 3.125 MG (COREG) TABLET PO SCH ×2 (09:28→22:09)
[2019-09-30] MEDS: NYSTATIN CREAM (MYCOSTATIN) 30 GM TUBE TP SCH ×3 (09:28→22:11)
[2019-09-30 11:23] LABS: CALCIUM 8.7 MG/DL (8.5-10.1); CREATININE SERUM 1.04 MG/DL (0.60-1.30); POTASSIUM 5.6 MMOL/L (3.6-5.0)
--- NOTE | 2019-09-30 11:41 | NUR ---
THIS NURSE NOTIFIED DR SANTIAGO PT BLOOD SUGAR WAS 404. ORDER GIVEN TO GIVE HIGHEST DOSE ON SLIDING SCALE OF INSULIN.
[2019-09-30 12:00] VITALS: BP 106/73
--- NOTE | 2019-09-30 13:42 | Progress Note - Hospitalist ---
Subjective HPI/CC On Admission Date Seen by Provider: Sep 30, 2019 Time Seen by Provider: 12:00 Chief complaint: Shortness of breath History of present illness: This is a 49-year-old white female clinic patient of [facility] with a past medical history of congestive heart failure and methamphetamine use who presented to the ER found to have elevated BNP with hypoxia and shortness of breath. She was admitted and consulted Dr. Agrawal and Dr. Dunbar due to pleural effusion and elevated BNP with ejection fraction of 25 percent respectively. Patient reports chronic pain and only wears oxygen at home as needed. Subjective/Events-last exam Patient about the same Fernández catheter in place No bowel movement yet but receiving laxatives and she declines anything additional line transferring to fourth floor Overall very slow progress IV furosemide maintained Review of Systems Cardiovascular: Edema Gastrointestinal: Constipation Objective Exam Vital Signs Vital Signs Date Time Temp Pulse Resp B/P (MAP) Pulse Ox O2 Delivery O2 Flow Rate FiO2 09/30/19 12:21 80 09/30/19 12:00 36.1 20 106/73 (84) 97 Room Air 09/30/19 04:29 3.00 Capillary Refill : Greater Than 3 Seconds General Appearance: No Apparent Distress, WD/WN, Chronically ill Respiratory: Lungs Clear, Normal Breath Sounds Cardiovascular: Regular Rate, Rhythm Extremity: Pedal Edema Neurologic/Psychiatric: Alert, Oriented x3, No Motor/Sensory Deficits, Normal Mood/Affect Results/Procedures Lab Laboratory Tests 09/30/19 02:22 09/30/19 02:27 09/30/19 10:58 Patient resulted labs reviewed. Assessment/Plan Assessment and Plan Assess & Plan/Chief Complaint Assessment: AECHF CHF EF 25% Bilateral pleural effusions secondary to CHF Hypoxia Hyponatremia IDDM Meth use Yeast infection of the groin Plan: IV Lasix O2 Zora Dunbar and Tanja appreciated Diagnosis/Problems Diagnosis/Problems (1) Acute exacerbation of congestive heart failure Status: Acute (2) Hyponatremia Status: Acute (3) Anasarca Status: Acute (4) Substance abuse Status: Chronic (5) Acute renal insufficiency Status: Resolved Resolution Date/Time: 08/06/18 @ 15:37 (6) Pleural effusion (7) Left below-knee amputee Clinical Quality Measures DVT/VTE Risk/Contraindication: Risk Factor Score Per Nursin RFS Level Per Nursing on Admit: 4+=Very High SAY SANTIAGO DO Sep 30, 2019 13:42 POS
[2019-09-30 16:00] VITALS: BP 136/79
--- NOTE | 2019-09-30 16:50 | NUR ---
THIS NURSE CALLED REPORT TO [facility] ON FORTH FLOOR.
--- NOTE | 2019-09-30 17:00 | NUR ---
THIS NURSE NOTIFIED DR SANTIAGO PT POTASSIUM WAS 5.6. HOLD 1700 POTASSIUM. ORDER GIVEN THAT PT MAY TRANSFER TO MED/SURG WITH NO TELE.
[2019-09-30] MEDS: ENOXAPARIN 40 MG/0.4 ML (LOVENOX) SYR SC SCH (17:09)
--- NOTE | 2019-09-30 17:45 | NUR ---
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 HENAO PATENT WITH DARK RENE URINE. ENCOURAGED TO TURN EVERY 2 HOURS.
[2019-09-30 20:00] VITALS: BP 127/85
[2019-10-01 00:35] VITALS: BP 128/81
[2019-10-01 04:00] VITALS: BP 120/73
[2019-10-01] MEDS: HYDROcodone/APAP 5 MG/325 MG (LORTAB) TAB PO PRN ×3 (04:07→16:46)
[2019-10-01] MEDS: inSUlin ASPART (NovoLOG) 1 UNIT/0.01 ML (CHARGE PER UNIT) SC SCH ×4 (05:29→22:21)
[2019-10-01] MEDS: FUROSEMIDE 40 MG/4 ML INJ (LASIX) IV SCH ×2 (05:29→16:45)
[2019-10-01] MEDS: CATHETER FLUSH 10 ML SYR IV SCH ×3 (06:11→20:05)
[2019-10-01 07:25] LABS: CALCIUM 8.6 MG/DL (8.5-10.1); MAGNESIUM 1.8 MG/DL (1.6-2.4); PHOSPHORUS 3.9 MG/DL (2.3-4.7); POTASSIUM 5.4 MMOL/L (3.6-5.0)
[2019-10-01] MEDS: KCL 10 MEQ TAB (MICRO K) PO SCH (07:42)
[2019-10-01 08:00] VITALS: BP 114/64
[2019-10-01] MEDS: SENNA W/DOCUSATE (SENOKOT S) TABLET PO SCH ×2 (08:11→20:03)
[2019-10-01] MEDS: lisINopril 5 MG (PRINIVIL) TABLET PO SCH (09:11)
[2019-10-01] MEDS: fluCOnazole (DIFLUCAN) 100 MG TAB PO SCH (09:11)
[2019-10-01] MEDS: NYSTATIN CREAM (MYCOSTATIN) 30 GM TUBE TP SCH ×3 (09:12→20:05)
[2019-10-01] MEDS: CARVEDILOL 3.125 MG (COREG) TABLET PO SCH ×2 (09:12→20:03)
[2019-10-01] MEDS: MICONAZOLE 2% POWDER (DESENEX AF) 90 GM TOP SCH ×2 (09:12→20:05)
[2019-10-01] MEDS ORDERED: CALC600T12 PO (09:15)
[2019-10-01] MEDS ORDERED: ASPI-983 PO (09:19)
--- NOTE | 2019-10-01 09:21 | NUR ---
SPOKE WITH PT[facility] AND WENT THRU THE EXT MED HIST TO COMPLETE THE MED REC. PT WAS ABLE TO TELL ME HOW SHE TAKES HER MEDS AND THEY ARE ALL CURRENT WITH THE EXT MED HIST. 08-30-2019 HYDROCODONE #84/28DS 09-26-2019 NOVOLOG PEN #5PENS/83 DS OTC MEDS: ASA 81 CALCIUM
--- NOTE | 2019-10-01 10:22 | Progress Note - Hospitalist ---
Subjective HPI/CC On Admission Date Seen by Provider: Oct 01, 2019 Time Seen by Provider: 09:30 Chief complaint: Shortness of breath History of present illness: This is a 49-year-old white female clinic patient of [facility] with a past medical history of congestive heart failure and methamphetamine use who presented to the ER found to have elevated BNP with hypoxia and shortness of breath. She was admitted and consulted Dr. Agrawal and Dr. Dunbar due to pleural effusion and elevated BNP with ejection fraction of 25 percent respectively. Patient reports chronic pain and only wears oxygen at home as needed. Subjective/Events-last exam Will DC catheter today Initiate PT and OT ROSELINE wraps will be provided for chronic lower extremity edema Diuresis continues Very poor prognosis care home Review of Systems General: Fatigue Objective Exam Vital Signs Vital Signs Date Time Temp Pulse Resp B/P (MAP) Pulse Ox O2 Delivery O2 Flow Rate FiO2 10/01/19 16:00 36.1 81 16 118/74 (89) 98 Room Air 10/01/19 13:26 21 10/01/19 12:00 2.00 Capillary Refill : Greater Than 3 Seconds General Appearance: No Apparent Distress, WD/WN, Chronically ill Respiratory: Lungs Clear Cardiovascular: Regular Rate, Rhythm Extremity: Pedal Edema (2+) Neurologic/Psychiatric: Alert, Oriented x3, No Motor/Sensory Deficits, Normal Mood/Affect Results/Procedures Lab Laboratory Tests 10/01/19 06:40 Patient resulted labs reviewed. Assessment/Plan Assessment and Plan Assess & Plan/Chief Complaint Assessment: AECHF CHF EF 25% Bilateral pleural effusions secondary to CHF Hypoxia Hyponatremia IDDM Meth use Yeast infection of the groin Plan: IV Lasix O2 Zora Dunbar and Tanja appreciated DC catheter PT/OT Diagnosis/Problems Diagnosis/Problems (1) Acute exacerbation of congestive heart failure Status: Acute (2) Hyponatremia Status: Acute (3) Anasarca Status: Acute (4) Substance abuse Status: Chronic (5) Acute renal insufficiency Status: Resolved Resolution Date/Time: 08/06/18 @ 15:37 (6) Pleural effusion (7) Left below-knee amputee Clinical Quality Measures DVT/VTE Risk/Contraindication: Risk Factor Score Per Nursin RFS Level Per Nursing on Admit: 4+=Very High SAY SANTIAGO DO Oct 01, 2019 10:22 POS
--- NOTE | 2019-10-01 10:24 | Cardiology Progress Note ---
Cardiology SOAP Progress Note Objective: I&O/Vital Signs 10/02/19 10/02/19 10/02/19 10:13 16:00 16:34 Temp 36.4 Pulse 83 Resp 18 B/P (MAP) 123/76 (92) Pulse Ox 91 98 98 O2 Delivery Room Air Room Air Room Air 10/02/19 00:00 Intake Total 3090 ml Output Total 2750 ml Balance 340 ml Weight (Pounds): 203 Weight (Ounces): 1.0 Weight (Calculated Kilograms): 92.394061 Constitutional: AAO x 3, well-developed, well-nourished Respiratory: No accessory muscle use; other (dullness to percussion on L base and mid zone; diminished breath sound in these zones) Cardiovascular: regular rate-rhythm, S1 and S2, systolic murmur (soft AMOL at card base) Gastrointestional: No tender; soft; No guarding, No rebound; audible bowel sounds Extremities: other (L BKA, mod edema of the R lower leg); No clubbing, No cyanosis Neurologic/Psychiatric: oriented x 3, other (able to move all limbs equally) Results/Procedures: Labs Laboratory Tests 10/01/19 20:45: Glucometer 429*H 10/01/19 22:15: Glucometer 314H 10/02/19 06:09: Glucometer 154H 10/02/19 06:20: White Blood Count 8.3, Red Blood Count 4.30L, Hemoglobin 9.3L, Hematocrit 32L, Mean Corpuscular Volume 75L, Mean Corpuscular Hemoglobin 22L, Mean Corpuscular Hemoglobin Concent 29L, Red Cell Distribution Width 20.8H, Platelet Count 483H, Mean Platelet Volume 10.7H, Neutrophils (%) (Auto) 74, Lymphocytes (%) (Auto) 15, Monocytes (%) (Auto) 8, Eosinophils (%) (Auto) 4, Basophils (%) (Auto) 0, Neutrophils # (Auto) 6.1, Lymphocytes # (Auto) 1.2, Monocytes # (Auto) 0.7, Eosinophils # (Auto) 0.3, Basophils # (Auto) 0.0, Sodium Level 132L, Potassium Level 5.5H, Chloride Level 97L, Carbon Dioxide Level 28, Anion Gap 7, Blood Urea Nitrogen 29H, Creatinine 1.00, Estimat Glomerular Filtration Rate 58, BUN/Creatinine Ratio 29, Glucose Level 164H, Calcium Level 8.8, Corrected Calcium 9.9, Total Bilirubin 0.5, Aspartate Amino Transf (AST/SGOT) 34, Alanine Aminotransferase (ALT/SGPT) 33, Alkaline Phosphatase 517H, Total Protein 6.0L, Albumin 2.6L 10/02/19 11:50: Glucometer 398H 10/02/19 16:33: Glucometer 265H A/P: Assessment/Dx: Ac systolic CHF due to nonischemic, dilated cardiomyopathy- improved shortness of breath. She was prescribed a lifevest previously, she is noncompliant. I asked her again and she tells me that the lifevest is at home. I did discuss with her that she is at risk for developing serious ventricular arrhythmias which could lead even to . Leucocytosis of undetermined etiology, being managed by the Med [facility] Non-ischemic cardiomyopathy. Echo of 07/18/19: LVEF 25-30%, mod enlargement of LA, PASP 51 mmHg; Card cath of 07/20/19: no CAD, marked global hypokinesis, LVEDP 11 mmHg Abnormal ECG: Chronic atypical LBBB L pleural effusion, managed by the Pul [facility] DM II Hyponatremia, likely due to CHF and hyperglycemia L BKA Plan: Discussion and Recomendations * iv diuretics for decomp CHF * BB and ROSELINE-inhib for dilated cm, dose dictated by bp * Monitor labs * Keep on tele Thank you for your consultation. Please call me if you have any questions. Hui Suarez MD, FACP, FACC, FSCAI, FHRS, CCDS Interventional Cardiology Cardiac Electrophysiology Vascular Medicine and Endovascular Interventions Taras SUAREZ MD Oct 01, 2019 10:23 POS
--- NOTE | 2019-10-01 11:27 | Occupational Therapy Eval ---
OT Evaluation-General/PLF Medical Diagnosis Admission Date Sep 28, 2019 at 16:46 Medical Diagnosis: CHF exacerbation Onset Date: Sep 28, 2019 Therapy Diagnosis Therapy Diagnosis: impaired ADLs and mobility Height/Weight Height (Feet): 5 Height (Inches): 11.00 Weight (Pounds): 203 Weight (Ounces): 1.0 Precautions Precautions/Isolations: Fall Prevention, Standard Precautions, Pressure Ulcer Safety Interventions: None Referral Physician: Karen Referral Reason: Activity Tolerance, Self Care, Evaluation/Treatment, Strengthening/ROM Medical History Pertinent Medical History: Heart Failure Additional Medical History Pt has previous Left Below Knee Amputation Current History Per H&P: "This is a 49-year-old white female clinic patient of [facility] with a past medical history of congestive heart failure and methamphetamine use who presented to the ER found to have elevated BNP with hypoxia and shortness of breath. She was admitted and consulted Dr. Agrawal and Dr. Dunbar due to pleural effusion and elevated BNP with ejection fraction of 25 percent respectively. Patient reports chronic pain and only wears oxygen at home as needed." Reviewed History: Yes Social History Home: Apartment Current Living Status: ex Entry Into Home: Level Entry Pt reports she has moved to a new apartment since last hospitalization, stating it is w/c accessible with level entry. ADL-Prior Level of Function SCALE: Activities may be completed with or without assistive devices. 1-Xcgwyrvqxe-fypapql completes the activity by him/herself with no assistance from a helper. 5-Set-up or Clean-up Assistance-helper sets up or cleans up; patient completes activity. Marvin assists only prior to or following the activity. 4-Supervision or Touching Assistance-helper provides verbal cues and/or touching/steadying and/or contact guard assistance as patient completes activity. Assistance may be provided throughout the activity or intermittently. 3-Partial/Moderate Assistance-helper does LESS THAN HALF the effort. Marvin lifts, holds or supports trunk or limbs, but provides less than half the effort. 2-Substantial/Maximal Assistance-helper does MORE THAN HALF the effort. Marvin lifts or holds trunk or limbs and provides more than half the effort. 1-Zpuvbpoof-sbozzm does ALL the effort. Patient does none of the effort to complete the activity. Or, the assistance of 2 or more helpers is required for the patient to complete the activity. If activity was not attempted, code reason: 7-Patient Refused. 9-Not Applicable-not attempted and the patient did not perform the activity before the current illness, exacerbation or injury. 10-Not Attempted due to Environmental Limitations-(lack of equipment, weather restraints, etc.). 88-Not Attempted due to Medical Conditions or Safety Concerns. ADL PLOF Comments Pt reports she required assistance with dressing and bathing prior to hospitalization. Pt completed lower body dressing at bed level, utilizing rolls to manage pants up, she requires assistance from ex- to manage clothing all the way over her hips. Pt states she has difficulty getting her w/c into her bathroom for toileting, states she needs to obtain a BSC. Self Care: Needed Some Help Functional Cognition: Independent DME/Equipment: Shower (walk in shower) DME/Equipment Comments pt utilized w/c for functional mobility, pt states her current w/c is too small for her and has a difficult time getting in/out of w/c. OT Current Status Subjective Pt laying in bed at start of session, stating she is very tired and did not sleep well last night. Pt agreeable to OT evaluation on this date. Mental Status/Objective Patient Orientation: Person, Place, Time, Situation Attachments: Fernández Catheter, IV Current Glasses/Contacts: No Hearing Aids: No Dentures/Partials: No Upper Extremity ROM WFL BUE Upper Extremity Coordination WFL Upper Extremity Sensation No changes in sensation reported. Upper Extremity Strength 3+/5 MMT BUE Edema: none noted Other Treatments Pt laying in bed at start of session, pleasantly declined ADLs during tx stating she would like to stay in bed. Pt provided information on PLOF and home set up. Post OT session, pt laying in bed, call light in reach and all needs met. Education OT Patient Education: Correct positioning, Energy conservation, Progress toward Goal/Update tx plan, Purpose of tx/functional activities Teaching Recipient: Patient Teaching Methods: Discussion Response to Teaching: Verbalize Understanding OT Short Term Goals Short Term Goals 1=Demonstrate adherence to instructed precautions during ADL tasks. 2=Patient will verbalize/demonstrate understanding of assistive devices/modifications for ADL. 3=Patient will improve strength/tolerance for activity to enable patient to perform ADL's. OT Director Of Mechanical Engineering Goals Shelter Goals Time Frame: Oct 12, 2019 Eating (QC): 6 Oral Hygiene (QC): 6 Shower/Bathe Self (QC): 3 Upper Body Dressing (QC): 5 Lower Body Dressing (QC): 3 On/Off Footwear (QC): 5 Toileting Hygiene (QC): 3 Toilet/Commode Transfer (QC): 3 Additional Goals: 1-Demonstrate ADL Tasks, 2-Verbalize Understanding, 3- ImproveStrength/Divya 1=Demonstrate adherence to instructed precautions during ADL tasks. 2=Patient will verbalize/demonstrate understanding of assistive devices/modifications for ADL. 3=Patient will improve strength/tolerance for activity to enable patient to perform ADL's. OT Education/Plan Problem List/Assessment Assessment: Decreased Activ Tolerance, Decreased UE Strength, Impaired Funct Balance, Impaired I ADL's, Impaired Self-Care Skills Discharge Recommendations Plan/Recommendations: Continue POC Therapy Discharge Recommendati: Intermittent Supervision Equpiment Recommendations-D/C: Bedside Commode Treatment Plan/Plan of Care Treatment,Training & Education: Yes Patient would benefit from OT for education, treatment and training to promote independence in ADL's, mobility, safety and/or upper extremity function for ADL's. Plan of Care: ADL Retraining, Caregiver Training, Functional Mobility, UE Funct Exercise/Act, W/C Management Training Treatment Duration: Oct 12, 2019 Frequency: 5 times per week Estimated Hrs Per Day: .25 hour per day Agreement: Yes Rehab Potential: Fair Time/GCodes Start Time: 11:15 Stop Time: 11:23 Total Time Billed (hr/min): 8 Billed Treatment Time 1, EVTaras x8mins GAURANG DAVILA OT Oct 01, 2019 11:27 POS
[2019-10-01 12:00] VITALS: BP 125/69
--- NOTE | 2019-10-01 13:16 | Pulmonary Progress Note ---
Subjective Time Seen by a Provider: 13:12 Subjective/Events-last exam No complications noted. Sepsis Event Evaluation Height, Weight, BMI Height: 5'11.00" Weight: 203lbs. 1.0oz. 92.624915ul; 27.96 BMI Method:Estimated Exam Exam Vital Signs Date Time Temp Pulse Resp B/P (MAP) Pulse Ox O2 Delivery O2 Flow Rate FiO2 10/01/19 11:30 96 Room Air 10/01/19 10:14 Room Air 10/01/19 08:00 Room Air 10/01/19 08:00 96 Room Air 10/01/19 08:00 35.5 92 20 114/64 (81) 98 Nasal Cannula 2.00 10/01/19 04:40 Room Air 10/01/19 04:00 35.8 83 20 120/73 (89) 98 Nasal Cannula 2.00 10/01/19 00:35 36.9 90 20 128/81 (97) 95 Nasal Cannula 2.00 10/01/19 00:00 Room Air 09/30/19 20:30 Room Air 09/30/19 20:30 Room Air 09/30/19 20:00 36.0 86 20 127/85 (99) 99 Room Air 09/30/19 18:44 96 Room Air 09/30/19 18:43 96 Room Air 09/30/19 16:00 36.0 81 21 136/79 (98) 95 Room Air 09/30/19 16:00 96 Room Air I & O 10/01/19 06:59 Intake Total 1610 ml Output Total 2000 ml Balance -390 ml Height & Weight Height: 5'11.00" Weight: 203lbs. 1.0oz. 92.706414xw; 27.96 BMI Method:Estimated General Appearance: No Apparent Distress, WD/WN, Chronically ill HEENT: PERRL/EOMI, Normal ENT Inspection, Pharynx Normal, Moist Mucous Membranes Neck: Full Range of Motion, Normal Inspection, Non Tender Respiratory: Lungs Clear, Normal Breath Sounds Cardiovascular: Regular Rate, Rhythm Capillary Refill: Greater Than 3 Seconds Extremity: Pedal Edema Neurologic/Psychiatric: Alert, Oriented x3, No Motor/Sensory Deficits, Normal Mood/Affect Skin: Other (yeast infection groin) Lymphatic: No Adenopathy Results Lab Laboratory Tests 09/30/19 02:22 09/30/19 02:27 09/30/19 10:58 10/01/19 06:40 Assessment/Plan Assessment/Plan CHFAE - 80mg of IV Lasix currently -Cardiology following -Repeat CXR Hyperkalemia -Repeat labs at 11:00 Small bilateral pleural effusions secondary to CHF EF 25% -Monitor -lasix hyponatremia -monitor IDDM Hx of substance abuse -education OPHELIA GARCIA DO Oct 01, 2019 13:16 POS
[2019-10-01 13:26] VITALS: BP 114/64
--- NOTE | 2019-10-01 15:03 | Physical Therapy Evaluation ---
PT Evaluation-General Medical Diagnosis Admission Date Sep 28, 2019 at 16:46 Medical Diagnosis: CHF exacerbation Onset Date: Sep 28, 2019 Therapy Diagnosis Therapy Diagnosis: weakness/debility Height/Weight Height (Feet): 5 Height (Inches): 11.00 Weight (Pounds): 203 Weight (Ounces): 1.0 Precautions Precautions/Isolations: Fall Prevention, Standard Precautions, Pressure Ulcer Weight Bear Status Right Lower Extremity: Right Weight Bearing/Tolerated Left Lower Extremity: Left Non Weight Bearing Pt has Left BKA Referral Physician: Karen Reason for Referral: Evaluation/Treatment Medical History Pertinent Medical History: Arthritis, COPD, DM, Heart Failure, HTN, Neuropathy, Smoking Current History ER secondary to weight gain, swelling, and SOB from home. Prior hospitalization 3 days before for CHF exacerbation. Reviewed History: Yes Social History Home: Apartment Current Living Status: ex Entry Into Home: Level Entry Prior Prior Level of Function SCALE: Activities may be completed with or without assistive devices. 4-Uxpjkfoeck-pdkfajd completes the activity by him/herself with no assistance from a helper. 5-Set-up or Clean-up Assistance-helper sets up or cleans up; patient completes activity. Perry assists only prior to or following the activity. 4-Supervision or Touching Assistance-helper provides verbal cues and/or to uching/steadying and/or contact guard assistance as patient completes activity. Assistance may be provided throughout the activity or intermittently. 3-Partial/Moderate Assistance-helper does LESS THAN HALF the effort. Perry lifts, holds or supports trunk or limbs, but provides less than half the effort. 2-Substantial/Maximal Assistance-helper does MORE THAN HALF the effort. Perry lifts or holds trunk or limbs and provides more than half the effort. 0-Krnyytrqf-raqrbz does ALL the effort. Patient does none of the effort to complete the activity. Or, the assistance of 2 or more helpers is required for the patient to complete the activity. If activity was not attempted, code reason: 7-Patient Refused. 9-Not Applicable-not attempted and the patient did not perform the activity before the current illness, exacerbation or injury. 10-Not Attempted due to Environmental Limitations-(lack of equipment, weather restraints, etc.). 88-Not Attempted due to Medical Conditions or Safety Concerns. Bed Mobility: 4 Transfers (B,C,W/C): 1 Wheelchair Mobility: 3 Prior Devices Use: Manual wheelchair PT Evaluation-Current Subjective Patient agrees to PT at this time. Patient reports that she does has not ambulated for 3 years since L BKA and does not stand for transfers or weight bear on RLE at all. Patient reports performs all transfers. Patient declined attempting to stand or transfer from bed to chair. Pain Numeric Pain Scale: 8 Location: Right Location Body Site: Calf Pain Description: Ache Comment: and LLE Objective Patient Orientation: Normal For Age Problem Solving: Fair Attachments: Fernández Catheter ROM/Strength ROM Lower Extremities Limited d/t swelling/edema Strength Lower Extremities Unable to fully assess. Integumentary/Posture Integumentary See nursing notes Bowel Incontinence: No Bladder Incontinence: Yes Posture WFL Neuromuscular (Tone, Coordination, Reflexes) grossly intact Sensory Vision: Functional Hearing: Functional Transfers Roll Left to Right (QC): 5 Sit to Lying (QC): 4 Lying to Sitting/Side of Bed(Q: 4 Gait Does the Patient Walk?: No and Walking Goal NOT indicated Wheelchair Training Does the Pt Use a Wheelchair?: Yes Type of Wheelchair: Manual Balance Sitting Static: Normal Sitting Dynamic: Normal Assessment/Needs Patient performed bed mobility with cues and minimal assistance to sit to EOB. Patient declined attempting to stand on RLE or transfer from bed to chair. Patient performed some LAQ at EOB but reported she was unable to perform ankle pumps or knee lifts d/t swelling and weight of LEs. Patient returned to supine from sitting EOB with minimal assistance and was repositioned on the R side with pillows to prop up LEs. Rehab Potential: Guarded Post Rehab Potential-Barriers: compliance PT Mcfp Goals Fiber Heel Piece Shaper Goals PT Fiber Heel Piece Shaper Goals Time Frame: Oct 08, 2019 Sit to Lying (QC): 4 Lying-Sitting on Side/Bed(QC): 4 Sit to Stand (QC): 2 Roll Left to Right (QC): 4 Chair/Zit-wt-Jvtwr Xfer(QC): 1 Does the Patient Walk: No and Walking Goal NOT indicated Does the Pt use WC or Scooter?: Yes PT Plan Problem List Problem List: Activity Tolerance, Functional Strength, Safety, Balance, Transfer, Bed Mobility Treatment/Plan Treatment Plan: Continue Plan of Care Treatment Plan: Bed Mobility, Education, Functional Activity Divya, Functional Strength, Safety, Therapeutic Exercise, Transfers Treatment Duration: Oct 08, 2019 Frequency: 6 times per week Estimated Hrs Per Day: .25 hour per day Patient and/or Family Agrees t: Yes Time/GCodes Time In: 1309 Time Out: 1324 Total Billed Treatment Time: 15 Total Billed Treatment 1 visit EVMod 15min SERINA MURPHY PT Oct 01, 2019 15:03 POS
[2019-10-01] MEDS: RT-ALBUTEROL/IPRATROPIUM 3 ML (DUONEB) VIAL INH SCH ×2 (15:09→21:36)
[2019-10-01 16:00] VITALS: BP 118/74
[2019-10-01] MEDS: ENOXAPARIN 40 MG/0.4 ML (LOVENOX) SYR SC SCH (16:46)
[2019-10-01] MEDS ORDERED: RT-ALBUTEROL/IPRATROPIUM 3 ML (DUONEB) VIAL INH PRN (17:00)
[2019-10-02] VITALS: BP 118/71
[2019-10-02] MEDS: RT-ALBUTEROL/IPRATROPIUM 3 ML (DUONEB) VIAL INH SCH ×4 (02:18→21:09)
[2019-10-02] MEDS: FUROSEMIDE 40 MG/4 ML INJ (LASIX) IV SCH ×2 (05:27→17:57)
[2019-10-02] MEDS: CATHETER FLUSH 10 ML SYR IV SCH ×3 (05:28→22:10)
[2019-10-02] MEDS: inSUlin ASPART (NovoLOG) 1 UNIT/0.01 ML (CHARGE PER UNIT) SC SCH ×4 (06:16→22:10)
[2019-10-02 07:10] LABS: BASOPHILS % (AUTO) 0 % (0-10); EOSINOPHILS # (AUTO) 0.3 10^3/uL (0.0-0.3); EOSINOPHILS % (AUTO) 4 % (0-10); HEMATOCRIT 32 % (35-52); HEMOGLOBIN 9.3 G/DL (11.5-16.0); LYMPHOCYTES # (AUTO) 1.2 X 10^3 (1.0-4.0); LYMPHOCYTES % (AUTO) 15 % (12-44); MEAN CORPUSCULAR HEMOGLOBIN 22 PG (25-34); MEAN CORPUSCULAR HGB CONC 29 G/DL (32-36); MEAN CORPUSCULAR VOLUME 75 FL (80-99); MEAN PLATELET VOLUME 10.7 FL (7.4-10.4); MONOCYTES # (AUTO) 0.7 X 10^3 (0.0-1.0); MONOCYTES % (AUTO) 8 % (0-12); NEUTROPHILS # (AUTO) 6.1 X 10^3 (1.8-7.8); NEUTROPHILS % (AUTO) 74 % (42-75); PLATELET COUNT 483 10^3/uL (130-400); RED CELL DISTRIBUTION WIDTH 20.8 % (10.0-14.5); WHITE BLOOD COUNT 8.3 10^3/uL (4.3-11.0)
[2019-10-02 07:47] LABS: ALBUMIN 2.6 GM/DL (3.2-4.5); BILIRUBIN,TOTAL 0.5 MG/DL (0.1-1.0); CALCIUM 8.8 MG/DL (8.5-10.1); POTASSIUM 5.5 MMOL/L (3.6-5.0)
[2019-10-02 08:00] VITALS: BP 113/59
[2019-10-02] MEDS: SENNA W/DOCUSATE (SENOKOT S) TABLET PO SCH ×2 (08:19→21:57)
[2019-10-02] MEDS: CARVEDILOL 3.125 MG (COREG) TABLET PO SCH ×2 (08:19→22:10)
[2019-10-02] MEDS: lisINopril 5 MG (PRINIVIL) TABLET PO SCH (08:19)
[2019-10-02] MEDS: MICONAZOLE 2% POWDER (DESENEX AF) 90 GM TOP SCH ×2 (08:20→20:19)
[2019-10-02] MEDS: fluCOnazole (DIFLUCAN) 100 MG TAB PO SCH (08:20)
[2019-10-02] MEDS: HYDROcodone/APAP 5 MG/325 MG (LORTAB) TAB PO PRN ×2 (08:26→18:44)
--- NOTE | 2019-10-02 08:28 | Pulmonary Progress Note ---
DARBY CALDERÓN A MEDICAL STUDENT 10/02/19 0828: Subjective Date Seen by a Provider: Oct 02, 2019 Time Seen by a Provider: 08:22 Subjective/Events-last exam Pt states that her breathing has gotten better, she states she still has some orthopnea but it is improving. Pt states that her edema is improving as well. Pt satting 91% on room air, states she normally wears 2.5L home O2 Sepsis Event Evaluation Height, Weight, BMI Height: 5'11.00" Weight: 203lbs. 1.0oz. 92.437313mz; 27.96 BMI Method:Estimated Exam Exam Vital Signs Date Time Temp Pulse Resp B/P (MAP) Pulse Ox O2 Delivery O2 Flow Rate FiO2 10/02/19 02:18 91 Room Air 10/02/19 00:00 36.0 79 18 118/71 (87) 94 Room Air 10/01/19 21:35 91 Nasal Cannula 1.00 10/01/19 21:00 Room Air 10/01/19 16:00 36.1 81 16 118/74 (89) 98 Room Air 10/01/19 15:09 95 Room Air 10/01/19 15:01 96 Room Air 10/01/19 13:26 35.5 76 95 21 10/01/19 12:00 35.7 75 16 125/69 (87) 97 Nasal Cannula 2.00 10/01/19 11:30 96 Room Air 10/01/19 10:14 Room Air I & O 10/02/19 07:00 Intake Total 3690 ml Output Total 3750 ml Balance -60 ml Height & Weight Height: 5'11.00" Weight: 203lbs. 1.0oz. 92.358326af; 27.96 BMI Method:Estimated General Appearance: No Apparent Distress, WD/WN, Chronically ill HEENT: PERRL/EOMI, Normal ENT Inspection, Pharynx Normal, Moist Mucous Membranes Neck: Full Range of Motion, Normal Inspection, Non Tender Respiratory: Decreased Breath Sounds, Wheezing (left base) Cardiovascular: Regular Rate, Rhythm Capillary Refill: Greater Than 3 Seconds Extremity: Pedal Edema (2+), Other (left BKA) Neurologic/Psychiatric: Alert, Oriented x3, No Motor/Sensory Deficits, Normal Mood/Affect Skin: Other (yeast infection groin) Lymphatic: No Adenopathy Other comments In = 3490 Out = 3400 net = +90 Results Lab Laboratory Tests 09/30/19 10:58 10/01/19 06:40 10/02/19 06:20 Assessment/Plan Assessment/Plan Acute Exacerbation of CHF -BNP downtrending, currently 1302.6 -continue 80mg of IV Lasix daily -Pt has gained 1.2kg since yesterday, Decrease patients fluid intake, -Cardiology following -Repeat CXR -Prior echo showed EF 25-30% on 07/18/19 -Pt normally wears 2.5L home O2 Hyperkalemia -Start patient on Kayexalate Small bilateral pleural effusions secondary to CHF EF 25% -Monitor - to small to tap -continue lasix hyponatremia -monitor IDDM Hx of substance abuse -education OPHELIA GARCIA DO 10/02/19 1546: Assessment/Plan Assessment/Plan Acute Exacerbation of CHF -BNP downtrending, currently 1302.6 -80mg of IV Lasix daily -Pt has gained 1.2kg since yesterday, Decrease patients fluid intake, -Cardiology following -Repeat CXR -Prior echo showed EF 25-30% on 07/18/19 -Pt normally wears 2.5L home O2 Hyperkalemia -Start patient on Kayexalate Small bilateral pleural effusions secondary to CHF EF 25% -Monitor - to small to tap -continue lasix hyponatremia -monitor IDDM Hx of substance abuse -education DARBY CALDERÓN MEDICAL STUDENT Oct 02, 2019 08:28 OPHELIA ARAUJO DO Oct 02, 2019 15:46 POS
--- NOTE | 2019-10-02 09:27 | Progress Note - Hospitalist ---
Subjective HPI/CC On Admission Date Seen by Provider: Oct 02, 2019 Time Seen by Provider: 08:30 Chief complaint: Shortness of breath History of present illness: This is a 49-year-old white female clinic patient of [facility] with a past medical history of congestive heart failure and methamphetamine use who presented to the ER found to have elevated BNP with hypoxia and shortness of breath. She was admitted and consulted Dr. Agrawal and Dr. Dunbar due to pleural effusion and elevated BNP with ejection fraction of 25 percent respectively. Patient reports chronic pain and only wears oxygen at home as needed. Subjective/Events-last exam Pt having a lump where her EJ was in her neck so will start Keflex for that and warm wet compresses. Pt requiring continue Diuresis for Anasarca. Overall prognosis remains poor and unsure if we can talk her into going into a long term or not. Review of Systems General: Fatigue Cardiovascular: Edema Objective Exam Vital Signs Vital Signs Date Time Temp Pulse Resp B/P (MAP) Pulse Ox O2 Delivery O2 Flow Rate FiO2 10/02/19 16:34 98 Room Air 10/02/19 16:00 36.4 83 18 123/76 (92) 10/01/19 21:35 1.00 10/01/19 13:26 21 Capillary Refill : Greater Than 3 Seconds General Appearance: No Apparent Distress, WD/WN, Chronically ill Respiratory: Lungs Clear Cardiovascular: Regular Rate, Rhythm Extremity: Pedal Edema Neurologic/Psychiatric: Alert, Oriented x3, No Motor/Sensory Deficits, Normal Mood/Affect Results/Procedures Lab Laboratory Tests 10/02/19 06:20 Patient resulted labs reviewed. Assessment/Plan Assessment and Plan Assess & Plan/Chief Complaint Assessment: AECHF CHF EF 25% Bilateral pleural effusions secondary to CHF Hypoxia Hyponatremia IDDM Meth use Yeast infection of the groin Plan: IV Lasix O2 Zora Dunbar and Tanja appreciated DC catheter PT/OT Diagnosis/Problems Diagnosis/Problems (1) Acute exacerbation of congestive heart failure Status: Acute (2) Hyponatremia Status: Acute (3) Anasarca Status: Acute (4) Substance abuse Status: Chronic (5) Acute renal insufficiency Status: Resolved Resolution Date/Time: 08/06/18 @ 15:37 (6) Pleural effusion (7) Left below-knee amputee Clinical Quality Measures DVT/VTE Risk/Contraindication: Risk Factor Score Per Nursin RFS Level Per Nursing on Admit: 4+=Very High SAY SANTIAGO DO Oct 02, 2019 09:27 POS
[2019-10-02] MEDS: NYSTATIN CREAM (MYCOSTATIN) 30 GM TUBE TP SCH ×3 (12:07→20:19)
[2019-10-02] MEDS: CEPHALEXIN 250 MG (KEFLEX) CAP PO SCH ×4 (12:07→22:10)
--- NOTE | 2019-10-02 12:47 | NUR ---
CM/SS spoke with the patient in regards to discharge planning. Patient had just been discharged on 09/25/19, [facility] was set up with [facility] and patient had information on [employer] to set up with her Medicaid Composing Machine Operator. She stated that at home she has workers with Medicaid, but that she is in process of hiring one and then her helps with her care but he works four days a week. Patient willing to consider a SNF at this time and preference would be for [facility] as she lives in [place]. Referral sent to [facility] for consideration.
--- NOTE | 2019-10-02 13:05 | Occupational Ther Daily Note ---
OT Current Status-Daily Note Subjective Pt seen semi-reclined in bed, leaning to R side. Pt states 4/10 pain in neck due to "IV site". Pt agreeable to OT tx session, denies getting out of bed. ADL-Treatment Therapy Code Descriptions/Definitions Functional [place] Measure: 0=Not Assessed/NA 4=Minimal Assistance 1=Total Assistance 5=Supervision or Setup 2=Maximal Assistance 6=Modified [place] 3=Moderate Assistance 7=Complete IndependenceSCALE: Activities may be completed with or without assistive devices. 3-Fvmodcpmnv-xjizvht completes the activity by him/herself with no assistance from a helper. 5-Set-up or Clean-up Assistance-helper sets up or cleans up; patient completes activity. [place] assists only prior to or following the activity. 4-Supervision or Touching Assistance-helper provides verbal cues and/or touching/steadying and/or contact guard assistance as patient completes activity. Assistance may be provided throughout the activity or intermittently. 3-Partial/Moderate Assistance-helper does LESS THAN HALF the effort. [place] lifts, holds or supports trunk or limbs, but provides less than half the effort. 2-Substantial/Maximal Assistance-helper does MORE THAN HALF the effort. [place] lifts or holds trunk or limbs and provides more than half the effort. 2-Pxjsfarff-phdutq does ALL the effort. Patient does none of the effort to complete the activity. Or, the assistance of 2 or more helpers is required for the patient to complete the activity. If activity was not attempted, code reason: 7-Patient Refused. 9-Not Applicable-not attempted and the patient did not perform the activity before the current illness, exacerbation or injury. 10-Not Attempted due to Environmental Limitations-(lack of equipment, weather restraints, etc.). 88-Not Attempted due to Medical Conditions or Safety Concerns. Eating (QC): 6 Oral Hygiene (QC): 6 (Pt completes with items in front of her, cup placed in front, completes in bed.) Other Treatment Pt denies getting out of bed. Pt educated on benefits of out of bed activity, pt adamantly denies out of bed. Pt states she would like to brush teeth, pt completes in bed. Pt's HOB lowered, pt able to raise arms and bring self to HOB with gravity assist. Pt states uncomfort, pt positioned with aide assist for rolling onto R side, pillows on back to comfort. Pt denies any other ADLs. Pt left in bed, on R side, call light in reach, all needs met. Education OT Patient Education: Correct positioning, Modified ADL techniques, Purpose of tx/functional activities, Safety issues, Transfer techniques Teaching Recipient: Patient Teaching Methods: Demonstration, Discussion Response to Teaching: Verbalize Understanding, Return Demonstration, Reinforcement Needed OT Short Term Goals Short Term Goals 1=Demonstrate adherence to instructed precautions during ADL tasks. 2=Patient will verbalize/demonstrate understanding of assistive devices/modifications for ADL. 3=Patient will improve strength/tolerance for activity to enable patient to perform ADL's. OT Hand Bootmaker Goals Hand Bootmaker Goals Time Frame: Oct 12, 2019 Eating (QC): 6 Oral Hygiene (QC): 6 (met) Shower/Bathe Self (QC): 3 Upper Body Dressing (QC): 5 Lower Body Dressing (QC): 3 On/Off Footwear (QC): 5 Toileting Hygiene (QC): 3 Toilet/Commode Transfer (QC): 3 Additional Goals: 1-Demonstrate ADL Tasks, 2-Verbalize Understanding, 3-Improv eStrength/Divya 1=Demonstrate adherence to instructed precautions during ADL tasks. 2=Patient will verbalize/demonstrate understanding of assistive devices/modifications for ADL. 3=Patient will improve strength/tolerance for activity to enable patient to p erform ADL's. OT Education/Plan Problem List/Assessment Assessment: Decreased Activ Tolerance, Impaired I ADL's, Impaired Self-Care Skills Discharge Recommendations Plan/Recommendations: Continue POC Therapy Discharge Recommendati: Scheduled Assistance, Post Acute OT Equpiment Recommendations-D/C: Manufacturers Service Representative Treatment Plan/Plan of Care Treatment,Training & Education: Yes Patient would benefit from OT for education, treatment and training to promote independence in ADL's, mobility, safety and/or upper extremity function for ADL's. Plan of Care: ADL Retraining, Caregiver Training, Functional Mobility, UE Funct Exercise/Act, W/C Management Training Treatment Duration: Oct 12, 2019 Frequency: 5 times per week Estimated Hrs Per Day: .25 hour per day Agreement: Yes Rehab Potential: Guarded Time/GCodes Start Time: 10:00 Stop Time: 10:13 Total Time Billed (hr/min): 13 Billed Treatment Time 1, ADL (13) ROMAN MENESES OTR Oct 02, 2019 13:05 POS
--- NOTE | 2019-10-02 13:41 | NUR ---
CM/SS [facility] called back and denied placement of the patient.
--- NOTE | 2019-10-02 14:17 | Physical Therapy Daily Note ---
PT Daily Note-Current Subjective Patient agrees to PT at this time. She states that she is irritated and annoyed with her family and hospital staff in general at this time. Patient would like to transfer to chair to get out of the bed for while. Pain Numeric Pain Scale: 5-Moderate Pain Location: Right Location Body Site: Calf Pain Description: Ache Comment: and LLE Mental Status Patient Orientation: Normal For Age Attachments: Fernández Catheter Transfers SCALE: Activities may be completed with or without assistive devices. 0-Cknsmczbni-bwtnmcm completes the activity by him/herself with no assistance from a helper. 5-Set-up or Clean-up Assistance-helper sets up or cleans up; patient completes activity. [place] assists only prior to or following the activity. 4-Supervision or Touching Assistance-helper provides verbal cues and/or touching/steadying and/or contact guard assistance as patient completes activity. Assistance may be provided throughout the activity or intermittently. 3-Partial/Moderate Assistance-helper does LESS THAN HALF the effort. [place] lifts, holds or supports trunk or limbs, but provides less than half the effort. 2-Substantial/Maximal Assistance-helper does MORE THAN HALF the effort. [place] lifts or holds trunk or limbs and provides more than half the effort. 3-Juiiiymyc-lomgxa does ALL the effort. Patient does none of the effort to complete the activity. Or, the assistance of 2 or more helpers is required for the patient to complete the activity. If activity was not attempted, code reason: 7-Patient Refused. 9-Not Applicable-not attempted and the patient did not perform the activity before the current illness, exacerbation or injury. 10-Not Attempted due to Environmental Limitations-(lack of equipment, weather restraints, etc.). 88-Not Attempted due to Medical Conditions or Safety Concerns. Roll Left to Right (QC): 5 Chair/Xgl-ol-Gugzx Xfer(QC): 2 Required moderate assistance to sit to EOB. Weight Bearing Right Lower Extremity: Right Weight Bearing/Tolerated Left Lower Extremity: Left Non Weight Bearing Pt has Left BKA Assessment Patient transferred from chair to bed using her method she uses at home that does not involve standing on RLE. Patient sat up in bed and sat to EOB with moderate assistance. Chair was aligned with bed directly behind patient so she could scoot body directly back into chair. Patient required maximum assist to scoot from EOB across bed and into chair. Patient positioned in chair with legs elevated. PT Fpc Goals Fpc Goals PT Community Engagement Representative Goals Time Frame: Oct 08, 2019 Sit to Lying (QC): 4 Lying-Sitting on Side/Bed(QC): 4 Sit to Stand (QC): 2 Roll Left to Right (QC): 4 Chair/Zgx-wh-Kdtsi Xfer(QC): 1 Does the Patient Walk: No and Walking Goal NOT indicated Does the Pt use WC or Scooter?: Yes PT Plan Treatment/Plan Treatment Plan: Continue Plan of Care Treatment Plan: Bed Mobility, Education, Functional Activity Divya, Functional Strength, Safety, Therapeutic Exercise, Transfers Treatment Duration: Oct 08, 2019 Frequency: 6 times per week Estimated Hrs Per Day: .25 hour per day Patient and/or Family Agrees t: Yes Time/GCodes Time In: 1250 Time Out: 1313 Total Billed Treatment Time: 23 Total Billed Treatment 1 visit FA x2 23min SERINA MURPHY PT Oct 02, 2019 14:17 POS
--- NOTE | 2019-10-02 14:24 | NUR ---
CM/BEATRIZ spoke with patient again and she was willing to have a referral sent to [facility]. Referral sent.
--- NOTE | 2019-10-02 15:27 | NUR ---
[facility] will accept the patient for admission when she is able to discharge.
[2019-10-02 16:00] VITALS: BP 123/76
[2019-10-02] MEDS: ENOXAPARIN 40 MG/0.4 ML (LOVENOX) SYR SC SCH (17:57)
--- NOTE | 2019-10-02 20:31 | Cardiology Progress Note ---
Cardiology SOAP Progress Note Subjective: Improved shortness of breath Objective: I&O/Vital Signs 10/02/19 10/02/19 10/02/19 10:13 16:00 16:34 Temp 36.4 Pulse 83 Resp 18 B/P (MAP) 123/76 (92) Pulse Ox 91 98 98 O2 Delivery Room Air Room Air Room Air 10/02/19 00:00 Intake Total 3090 ml Output Total 2750 ml Balance 340 ml Weight (Pounds): 203 Weight (Ounces): 1.0 Weight (Calculated Kilograms): 92.969430 Constitutional: AAO x 3, well-developed, well-nourished Respiratory: No accessory muscle use; other (dullness to percussion on L base and mid zone; diminished breath sound in these zones) Cardiovascular: regular rate-rhythm, S1 and S2, systolic murmur (soft AMOL at card base) Gastrointestional: No tender; soft; No guarding, No rebound; audible bowel sounds Extremities: other (L BKA, mod edema of the R lower leg); No clubbing, No cyanosis Neurologic/Psychiatric: oriented x 3, other (able to move all limbs equally) Results/Procedures: Labs Laboratory Tests 10/01/19 20:45: Glucometer 429*H 10/01/19 22:15: Glucometer 314H 10/02/19 06:09: Glucometer 154H 10/02/19 06:20: White Blood Count 8.3, Red Blood Count 4.30L, Hemoglobin 9.3L, Hematocrit 32L, Mean Corpuscular Volume 75L, Mean Corpuscular Hemoglobin 22L, Mean Corpuscular Hemoglobin Concent 29L, Red Cell Distribution Width 20.8H, Platelet Count 483H, Mean Platelet Volume 10.7H, Neutrophils (%) (Auto) 74, Lymphocytes (%) (Auto) 15, Monocytes (%) (Auto) 8, Eosinophils (%) (Auto) 4, Basophils (%) (Auto) 0, Neutrophils # (Auto) 6.1, Lymphocytes # (Auto) 1.2, Monocytes # (Auto) 0.7, Eosinophils # (Auto) 0.3, Basophils # (Auto) 0.0, Sodium Level 132L, Potassium Level 5.5H, Chloride Level 97L, Carbon Dioxide Level 28, Anion Gap 7, Blood Urea Nitrogen 29H, Creatinine 1.00, Estimat Glomerular Filtration Rate 58, BUN/Creatinine Ratio 29, Glucose Level 164H, Calcium Level 8.8, Corrected Calcium 9.9, Total Bilirubin 0.5, Aspartate Amino Transf (AST/SGOT) 34, Alanine Aminotransferase (ALT/SGPT) 33, Alkaline Phosphatase 517H, Total Protein 6.0L, Albumin 2.6L 10/02/19 11:50: Glucometer 398H 10/02/19 16:33: Glucometer 265H A/P: Assessment/Dx: Ac systolic CHF due to nonischemic, dilated cardiomyopathy- improved shortness of breath. She was prescribed a lifevest previously, she is noncompliant. I asked her again and she tells me that the lifevest is at home. I did discuss with her t hat she is at risk for developing serious ventricular arrhythmias which could lead even to . Leucocytosis of undetermined etiology, being managed by the Med Svce Non-ischemic cardiomyopathy. Echo of 07/18/19: LVEF 25-30%, mod enlargement of LA, PASP 51 mmHg; Card cath of 07/20/19: no CAD, marked global hypokinesis, LVEDP 11 mmHg Abnormal ECG: Chronic atypical LBBB L pleural effusion, managed by the Pul Svce DM II Hyponatremia, likely due to CHF and hyperglycemia L BKA Plan: Discussion and Recomendations * iv diuretics for decomp CHF - improved significantly. * BB and ROSELINE-inhib for dilated cardiomyopathy. * Monitor labs * Keep on tele Thank you for your consultation. Please call me if you have any questions. Hui Suarez MD, FACP, FACC, FSCAI, FHRS, CCDS Interventional Cardiology Cardiac Electrophysiology Vascular Medicine and Endovascular Interventions Taras SUAREZ MD Oct 02, 2019 20:31 POS
[2019-10-02 23:39] VITALS: BP 128/72
[2019-10-03] MEDS: RT-ALBUTEROL/IPRATROPIUM 3 ML (DUONEB) VIAL INH SCH ×3 (01:50→15:44)
[2019-10-03] MEDS: HYDROcodone/APAP 5 MG/325 MG (LORTAB) TAB PO PRN ×2 (02:54→09:12)
[2019-10-03] MEDS: FUROSEMIDE 40 MG/4 ML INJ (LASIX) IV SCH (05:15)
[2019-10-03 05:16] LABS: BASOPHILS % (AUTO) 1 % (0-10); EOSINOPHILS # (AUTO) 0.2 10^3/uL (0.0-0.3); EOSINOPHILS % (AUTO) 3 % (0-10); HEMATOCRIT 33 % (35-52); HEMOGLOBIN 9.3 G/DL (11.5-16.0); LYMPHOCYTES # (AUTO) 1.1 X 10^3 (1.0-4.0); LYMPHOCYTES % (AUTO) 17 % (12-44); MEAN CORPUSCULAR HEMOGLOBIN 22 PG (25-34); MEAN CORPUSCULAR HGB CONC 29 G/DL (32-36); MEAN CORPUSCULAR VOLUME 75 FL (80-99); MEAN PLATELET VOLUME 10.6 FL (7.4-10.4); MONOCYTES # (AUTO) 0.6 X 10^3 (0.0-1.0); MONOCYTES % (AUTO) 10 % (0-12); NEUTROPHILS # (AUTO) 4.7 X 10^3 (1.8-7.8); NEUTROPHILS % (AUTO) 70 % (42-75); PLATELET COUNT 565 10^3/uL (130-400); RED CELL DISTRIBUTION WIDTH 20.7 % (10.0-14.5); WHITE BLOOD COUNT 6.7 10^3/uL (4.3-11.0)
[2019-10-03 05:33] LABS: ALANINE AMINOTRANSFERASE 25 U/L (0-55); ALBUMIN 2.6 GM/DL (3.2-4.5); ALKALINE PHOSPHATASE 443 U/L (40-136); BILIRUBIN,TOTAL 0.4 MG/DL (0.1-1.0); BUN/CREATININE RATIO 29; CALCIUM 8.7 MG/DL (8.5-10.1); CARBON DIOXIDE 29 MMOL/L (21-32); CHLORIDE 95 MMOL/L (98-107); CREATININE SERUM 0.97 MG/DL (0.60-1.30); GFR ESTIMATED > 60; GLUCOSE 254 MG/DL (70-105); POTASSIUM 5.5 MMOL/L (3.6-5.0); SODIUM 133 MMOL/L (135-145); TOTAL PROTEIN 5.9 GM/DL (6.4-8.2)
[2019-10-03] MEDS: CATHETER FLUSH 10 ML SYR IV SCH ×2 (06:24→14:00)
[2019-10-03] MEDS: inSUlin ASPART (NovoLOG) 1 UNIT/0.01 ML (CHARGE PER UNIT) SC SCH ×2 (06:32→12:22)
[2019-10-03 08:00] VITALS: BP 126/78
[2019-10-03] MEDS: CARVEDILOL 3.125 MG (COREG) TABLET PO SCH (09:11)
[2019-10-03] MEDS: SENNA W/DOCUSATE (SENOKOT S) TABLET PO SCH (09:11)
[2019-10-03] MEDS: CEPHALEXIN 250 MG (KEFLEX) CAP PO SCH ×2 (09:11→12:21)
[2019-10-03] MEDS: fluCOnazole (DIFLUCAN) 100 MG TAB PO SCH (09:12)
[2019-10-03] MEDS: lisINopril 5 MG (PRINIVIL) TABLET PO SCH (09:12)
[2019-10-03] MEDS: MICONAZOLE 2% POWDER (DESENEX AF) 90 GM TOP SCH (09:13)
[2019-10-03] MEDS: NYSTATIN CREAM (MYCOSTATIN) 30 GM TUBE TP SCH ×2 (09:13→12:22)
--- NOTE | 2019-10-03 10:13 | Occ Therapy Progress Note ---
Therapy Progress Note Pt pleasantly declined OT services this AM, stating she is hoping to discharge later this morning. OT to attempt again later. 1, visit GAURANG TINAJERO OT Oct 03, 2019 10:13 POS
--- NOTE | 2019-10-03 11:08 | Pulmonary Progress Note ---
Subjective Date Seen by a Provider: Oct 03, 2019 Time Seen by a Provider: 11:02 Subjective/Events-last exam Pt states she feels much improved today, not requiring any supplemental oxygen. Sepsis Event Evaluation Height, Weight, BMI Height: 5'11.00" Weight: 203lbs. 1.0oz. 92.651843mn; 27.96 BMI Method:Estimated Exam Exam Vital Signs Date Time Temp Pulse Resp B/P (MAP) Pulse Ox O2 Delivery O2 Flow Rate FiO2 10/03/19 09:20 96 Room Air 10/03/19 08:00 36.0 81 18 126/78 (94) 98 Room Air 10/03/19 08:00 Room Air 10/03/19 01:50 92 Room Air 10/02/19 23:39 86 20 128/72 (90) 95 Room Air 10/02/19 21:09 93 Room Air 10/02/19 20:30 Room Air 10/02/19 16:34 98 Room Air 10/02/19 16:00 36.4 83 18 123/76 (92) 98 Room Air I & O 10/03/19 07:00 Intake Total 4214 ml Output Total 2350 ml Balance 1864 ml Height & Weight Height: 5'11.00" Weight: 203lbs. 1.0oz. 92.054247hr; 27.96 BMI Method:Estimated General Appearance: No Apparent Distress, WD/WN, Chronically ill HEENT: PERRL/EOMI, Normal ENT Inspection, Pharynx Normal, Moist Mucous Membranes Neck: Full Range of Motion, Normal Inspection, Non Tender Respiratory: Lungs Clear Cardiovascular: Regular Rate, Rhythm Capillary Refill: Greater Than 3 Seconds Neurologic/Psychiatric: Alert, Oriented x3, No Motor/Sensory Deficits, Normal Mood/Affect Skin: Other (yeast infection groin) Lymphatic: No Adenopathy Results Lab Laboratory Tests 10/02/19 06:20 10/03/19 04:15 10/03/19 04:25 Assessment/Plan Assessment/Plan Acute Exacerbation of CHF - improved -continue Lasix as outpatient -Cardiology following -echo done yesterday showed EF 25-30%, pt has life vest at home but has been non-compliant with it -Pt normally wears 2.5L home O2 at night, satting at 96% on room air today -pt cleared from pulmonary stand point to go to outpatient facility Hyperkalemia -monitor, patient on Lasix Small bilateral pleural effusions possibly secondary to CHF EF 25% -to small to tap -continue Lasix as outpt hyponatremia -improving IDDM -education Hx of substance abuse -education DARBY CALDERÓN MEDICAL STUDENT Oct 03, 2019 11:07 POS
--- NOTE | 2019-10-03 11:40 | Physical Therapy Progress Note ---
Therapy Progress Note Patient refuses treatment this morning, states she is being discharged today and doesn't want to get out of bed or perform leg exercises in bed. Will check back this afternoon. AGUILA CAMPBELL PT Oct 03, 2019 11:40 POS
[2019-10-03] MEDS ORDERED: ENOX40DI8 SC (11:57)
[2019-10-03] MEDS ORDERED: HYDR-3812 PO (11:57)
[2019-10-03] MEDS ORDERED: NYST15CR TP (11:57)
[2019-10-03] MEDS ORDERED: MICO90PO TOP (11:57)
[2019-10-03] MEDS ORDERED: CEPH-507 PO (11:58)
--- NOTE | 2019-10-03 11:59 | Discharge Inst-Skilled Nursing ---
Discharge Inst-Skilled NF Reconcile Patient Problems Problems Reviewed?: Yes Chief Complaint Chief complaint: Shortness of breath History of present illness: This is a 49-year-old white female clinic patient of [facility] with a past medical history of congestive heart failure and methamphetamine use who presented to the ER found to have elevated BNP with hypoxia and shortness of breath. She was admitted and consulted Dr. Agrawal and Dr. Dunbar due to pleural effusion and elevated BNP with ejection fraction of 25 percent respectively. Patient reports chronic pain and only wears oxygen at home as needed. Patient Instructions Patient Problems: Anasarca CHF DM Chronic pain Goal: Return to independent living Consult/Follow Up/Orders Follow Up Appt.: [facility] Skilled NF Admit to: [facility] Certification (SNF) I certify that SNF services are required to be given on an inpatient basis because of the above named patient's need for longterm care on a continuing basis for the conditions(s) for which he/she was receiving inpatient hospital services prior to his/her transfer to the SNF. Long-Term Facility Order: Nursing Services, Center Specialists-Evaluate & Treat, Physical Therapy-Evaluate & Treat, Wound Care-Eval/Treat Oxygen Delivery Method: Room Air Discharge Diet: ADA Diet Daily Activity as Tolerated: Yes Resuscitation Status: Do Not Resuscitate New & Resume Previous Orders New Medications: Cephalexin (Keflex) 500 Mg Capsule 500 MG PO TID for 5 Days, CAP Enoxaparin Sodium (Enoxaparin Sodium) 40 Mg/0.4 Ml Syringe 40 MG SC Q24H for 14 Days, SYRINGE Miconazole Nitrate (Lotrimin AF) 90 Gm Powder 0 GM TOP BID for 30 Days, EA Nystatin (Nystatin) 15 Gm Cream..g. 0 GM TP TID for 30 Days, TUBE Continued Medications: Aspirin (Aspirin EC) 81 Mg Tablet.dr 81 MG PO DAILY, TAB Atorvastatin Calcium (Atorvastatin Calcium) 40 Mg Tablet 40 MG PO DAILY Calcium Carbonate (Calcium) 600 Mg Tablet 600 MG PO DAILY, TAB Carvedilol (Carvedilol) 3.125 Mg Tablet 3.125 MG PO BID, TAB Furosemide (Furosemide) 40 Mg Tablet 40 MG PO DAILY, TAB Hydrocodone/Acetaminophen (Hydrocodone-Acetamin 5-325 mg) 1 Each Tablet 1 TAB PO Q8H PRN for PAIN-MODERATE, #30 TAB (This prescription has been renewed) Insulin Aspart (Novolog Flexpen) 300 Units/3 Ml Solution 10-12 UNITS SQ TIDAC Insulin Determir (Levemir) 1,000 Units/10 Ml Soln 20 UNIT SQ HS for 30 Days, EA Lisinopril (Lisinopril) 2.5 Mg Tablet 2.5 MG PO DAILY, TAB Discontinued Medications: Metformin HCl (Metformin HCl) 500 Mg Tablet 500 MG PO BID Roberta Santiago Oct 03, 2019 11:58 ROBERTA SANTIAGO DO Oct 03, 2019 11:59 POS
--- NOTE | 2019-10-03 12:00 | Discharge Summary ---
Discharge Summary Hospital Course Was the Problem List Reviewed?: Yes Problems/Dx: (1) Acute exacerbation of congestive heart failure Status: Acute (2) Hyponatremia Status: Acute (3) Anasarca Status: Acute (4) Substance abuse Status: Chronic (5) Acute renal insufficiency Status: Resolved (6) Pleural effusion (7) Left below-knee amputee Hospital Course Date of Admission: Sep 28, 2019 at 16:46 Admission Diagnosis : Family Physician/Provider: Dave Lorenzana MD Date of Discharge: 10/03/19 Discharge Diagnosis: anasarca, CHF, cardiomyopathy, DM Hospital Course: Hospital Course: Pt had an uneventful hospital course for 5 days when she was admitted for anasarcaIV diuresis improved the statusalong with compression stockings, ROSELINE wraps and pt was monitoredclosely for hyponatremiaand electrolyteimbalance. Overall pt was deemed stable for DC, was [facility] [place] [facility], I&D of the left EJ skin abscess was performed by general surgery. Pt will be on Keflex for an additionalfive days and will have an overall poor prognosis due to the fact of her significant medical noncompliance and overall severe comorbidities at such a young age of 49. Labs and Pending Lab Test: Laboratory Tests 10/02/19 16:33: Glucometer 265H 10/02/19 21:44: Glucometer 258H 10/03/19 04:15: White Blood Count 6.7, Red Blood Count 4.33L, Hemoglobin 9.3L, Hematocrit 33L, Mean Corpuscular Volume 75L, Mean Corpuscular Hemoglobin 22L, Mean Corpuscular Hemoglobin Concent 29L, Red Cell Distribution Width 20.7H, Platelet Count 565H, Mean Platelet Volume 10.6H, Neutrophils (%) (Auto) 70, Lymphocytes (%) (Auto) 17, Monocytes (%) (Auto) 10, Eosinophils (%) (Auto) 3, Basophils (%) (Auto) 1, Neutrophils # (Auto) 4.7, Lymphocytes # (Auto) 1.1, Monocytes # (Auto) 0.6, Eosinophils # (Auto) 0.2, Basophils # (Auto) 0.0 10/03/19 04:25: Sodium Level 133L, Potassium Level 5.5H, Chloride Level 95L, Carbon Dioxide Level 29, Anion Gap 9, Blood Urea Nitrogen 28H, Creatinine 0.97, Estimat Glomerular Filtration Rate > 60, BUN/Creatinine Ratio 29, Glucose Level 254H, Calcium Level 8.7, Corrected Calcium 9.8, Total Bilirubin 0.4, Aspartate Amino Transf (AST/SGOT) 25, Alanine Aminotransferase (ALT/SGPT) 25, Alkaline Phosphatase 443H, Total Protein 5.9L, Albumin 2.6L Home Meds Active Keflex (Cephalexin) 500 Mg Capsule 500 Mg PO TID 5 Days Nystatin 15 Gm Cream..g. 0 Gm TP TID 30 Days Lotrimin AF (Miconazole Nitrate) 90 Gm Powder 0 Gm TOP BID 30 Days Enoxaparin Sodium 40 Mg/0.4 Ml Syringe 40 Mg SC Q24H 14 Days Hydrocodone-Acetamin 5-325 mg (Hydrocodone/Acetaminophen) 1 Each Tablet 1 Tab PO Q8H PRN Levemir (Insulin Determir) 1,000 Units/10 Ml Soln 20 Unit SQ HS 30 Days Reported Aspirin EC (Aspirin) 81 Mg Tablet.dr 81 Mg PO DAILY Calcium (Calcium Carbonate) 600 Mg Tablet 600 Mg PO DAILY Atorvastatin Calcium 40 Mg Tablet 40 Mg PO DAILY Metformin HCl 500 Mg Tablet 500 Mg PO BID Lisinopril 2.5 Mg Tablet 2.5 Mg PO DAILY Furosemide 40 Mg Tablet 40 Mg PO DAILY Carvedilol 3.125 Mg Tablet 3.125 Mg PO BID Novolog Flexpen (Insulin Aspart) 300 Units/3 Ml Solution 10-12 Units SQ TIDAC Assessment/Pt Instructions [facility] on [facility] rounds Discharge Planning: <30 minutes discharge planning Discharge Instructions Discharge Diet: ADA Diet Activity as Tolerated: Yes Discharge Physical Examination Vital Signs Vital Signs Date Time Temp Pulse Resp B/P (MAP) Pulse Ox O2 Delivery O2 Flow Rate FiO2 10/03/19 09:20 96 Room Air 10/03/19 08:00 36.0 81 18 126/78 (94) 10/01/19 21:35 1.00 10/01/19 13:26 21 General Appearance: No Apparent Distress, WD/WN Respiratory: Lungs Clear Cardiovascular: Regular Rate, Rhythm Extremity: Pedal Edema Allergies: Coded Allergies: Penicillins (Verified Allergy, Unknown, 04/06/19) Discharge Summary Date of Admission Sep 28, 2019 at 16:46 Date of Discharge Discharge Date: Oct 03, 2019 Admission Diagnosis Assessment: AECHF CHF EF 25% Bilateral pleural effusions secondary to CHF Hypoxia Hyponatremia IDDM Meth use History of left wthyo-ijl-ahws amputation Plan: IV Lasix O2 Zora Packer appreciated Discharge Diagnosis Assessment: AECHF CHF EF 25% Bilateral pleural effusions secondary to CHF Hypoxia Hyponatremia IDDM Meth use Yeast infection of the groin Plan: IV Lasix O2 Zora Packer appreciated DC catheter PT/OT (1) Acute exacerbation of congestive heart failure Status: Acute (2) Hyponatremia Status: Acute (3) Anasarca Status: Acute (4) Substance abuse Status: Chronic (5) Acute renal insufficiency Status: Resolved (6) Pleural effusion (7) Left below-knee amputee Clinical Quality Measures DVT/VTE Risk/Contraindication: Risk Factor Score Per Nursin RFS Level Per Nursing on Admit: 4+=Very High SAY SANTIAGO DO Oct 03, 2019 12:00 POS
--- NOTE | 2019-10-03 13:09 | NUR ---
CM/SS patient discharging this day to [facility], discharge information and CARE sent to them. CARE assessment sent to [facility]. Patient's will be bringing her some clothes and then [facility] will transport this day at 5pm. Patient and RNing updated.
--- NOTE | 2019-10-03 14:01 | Cardiology Progress Note ---
Cardiology SOAP Progress Note Subjective: No significant cardiac complaints Objective: I&O/Vital Signs 10/03/19 10/03/19 10/03/19 08:00 08:00 09:20 Temp 36.0 Pulse 81 Resp 18 B/P (MAP) 126/78 (94) Pulse Ox 98 96 O2 Delivery Room Air Room Air Room Air 10/03/19 00:00 Intake Total 2740 ml Output Total 1950 ml Balance 790 ml Weight (Pounds): 203 Weight (Ounces): 1.0 Weight (Calculated Kilograms): 92.119001 Constitutional: AAO x 3, well-developed, well-nourished Respiratory: No accessory muscle use; other (dullness to percussion on L base and mid zone; diminished breath sound in these zones) Cardiovascular: regular rate-rhythm, S1 and S2, systolic murmur (soft AMOL at card base) Gastrointestional: No tender; soft; No guarding, No rebound; audible bowel sounds Extremities: other (L BKA, mod edema of the R lower leg); No clubbing, No cyanosis Neurologic/Psychiatric: oriented x 3, other (able to move all limbs equally) Results/Procedures: Labs Laboratory Tests 10/02/19 16:33: Glucometer 265H 10/02/19 21:44: Glucometer 258H 10/03/19 04:15: White Blood Count 6.7, Red Blood Count 4.33L, Hemoglobin 9.3L, Hematocrit 33L, Mean Corpuscular Volume 75L, Mean Corpuscular Hemoglobin 22L, Mean Corpuscular Hemoglobin Concent 29L, Red Cell Distribution Width 20.7H, Platelet Count 565H, Mean Platelet Volume 10.6H, Neutrophils (%) (Auto) 70, Lymphocytes (%) (Auto) 17, Monocytes (%) (Auto) 10, Eosinophils (%) (Auto) 3, Basophils (%) (Auto) 1, Neutrophils # (Auto) 4.7, Lymphocytes # (Auto) 1.1, Monocytes # (Auto) 0.6, Eosinophils # (Auto) 0.2, Basophils # (Auto) 0.0 10/03/19 04:25: Sodium Level 133L, Potassium Level 5.5H, Chloride Level 95L, Carbon Dioxide Level 29, Anion Gap 9, Blood Urea Nitrogen 28H, Creatinine 0.97, Estimat Glomerular Filtration Rate > 60, BUN/Creatinine Ratio 29, Glucose Level 254H, Calcium Level 8.7, Corrected Calcium 9.8, Total Bilirubin 0.4, Aspartate Amino Transf (AST/SGOT) 25, Alanine Aminotransferase (ALT/SGPT) 25, Alkaline Phosphatase 443H, Total Protein 5.9L, Albumin 2.6L 10/03/19 12:13: Glucometer 438*H A/P: Assessment/Dx: Ac systolic CHF due to nonischemic, dilated cardiomyopathy- improved shortness of breath. She was prescribed a lifevest previously, she is noncompliant. I asked her again and she tells me that the lifevest is at home. I did discuss with her that she is at risk for developing serious ventricular arrhythmias which could lead even to . emphasized again Leucocytosis of undetermined etiology, being managed by the Med [facility] Non-ischemic cardiomyopathy. Echo of 07/18/19: LVEF 25-30%, mod enlargement of LA, PASP 51 mmHg; Card cath of 07/20/19: no CAD, marked global hypokinesis, LVEDP 11 mmHg Abnormal ECG: Chronic atypical LBBB L pleural effusion, managed by the Pul Svce DM II Hyponatremia, likely due to CHF and hyperglycemia L BKA Being discharged today to the nursing facility Plan: Discussion and Recomendations * iv diuretics for decomp CHF - improved significantly. * BB and ROSELINE-inhib for dilated cardiomyopathy. * Monitor labs * Keep on tele Thank you for your consultation. Please call me if you have any questions. Hui Suarez MD, FACP, FACC, FSCAI, FHRS, CCDS Interventional Cardiology Cardiac Electrophysiology Vascular Medicine and Endovascular Interventions Taras SUAREZ MD Oct 03, 2019 14:01 POS
--- NOTE | 2019-10-03 16:00 | NUR ---
[facility] R[facility]EL [facility].
--- NOTE | 2019-10-03 16:48 | Consultation - Surgery ---
JOHNSON CRAMER MED STUDENT 10/03/19 1648: History of Present Illness History of Present Illness Patient Consulted On(veto/time) 10/03/19 16:35 Date Seen by Provider: Oct 03, 2019 Time Seen by Provider: 16:35 History of Present Illness Ms. Baron was admitted to [facility] for CHF, was treated using EJ and developed a lesion at the EJ site concerning for an abscess. When seen today, she reports that she began to feel the swelling and pain at the EJ site when it was placed, and that it grew over the past several days. Nursing reports that it was treated with Keflex and warm compress yesterday, and that it has not changed in appearance since yesterday. She reports that the lesion is warm and itches, and that she feels a constant 8/10 throbbing pain at the site, exacerbated by palp ation. The sensation of pain, warmth, and swelling do not radiate anywhere. Denies any fluids leaking from the lesion, denies feeling fevers or chills. Allergies and Home Medications Allergies Coded Allergies: Penicillins (Verified Allergy, Unknown, 04/06/19) Home Medications Aspirin 81 Mg Tablet.dr, 81 MG PO DAILY, (Reported) Atorvastatin Calcium 40 Mg Tablet, 40 MG PO DAILY, (Reported) Calcium Carbonate 600 Mg Tablet, 600 MG PO DAILY, (Reported) Carvedilol 3.125 Mg Tablet, 3.125 MG PO BID, (Reported) Cephalexin 500 Mg Capsule, 500 MG PO TID Prescribed by: SAY SANTIAGO on 10/03/19 1158 Enoxaparin Sodium 40 Mg/0.4 Ml Syringe, 40 MG SC Q24H Prescribed by: SAY SANTIAGO on 10/03/19 1157 Furosemide 40 Mg Tablet, 40 MG PO DAILY, (Reported) Hydrocodone/Acetaminophen 1 Each Tablet, 1 TAB PO Q8H PRN for PAIN-MODERATE Prescribed by: SAY SANTIAGO on 10/03/19 1157 Insulin Aspart 300 Units/3 Ml Solution, 10-12 UNITS SQ TIDAC, (Reported) Insulin Determir 1,000 Units/10 Ml Soln, 20 UNIT SQ HS Prescribed by: CRISS CORTEZ on 09/25/19 1145 Lisinopril 2.5 Mg Tablet, 2.5 MG PO DAILY, (Reported) Miconazole Nitrate 90 Gm Powder, 0 GM TOP BID Prescribed by: SAY SANTIAGO on 10/03/19 1157 Nystatin 15 Gm Cream..g., 0 GM TP TID Prescribed by: SAY SANTIAGO on 10/03/19 1157 Past Zuwtoem-Tjgjzt-Yhomsx Hx Patient Social History Alcohol Use: Denies Use Recreational Drug Use: No (SMOKES 1PPD) Drug of Choice: +IV METH AND COCAINE USE, ALSO SMOKES/SNORTS THEM. B ENZODIAZEPINE ABUSE Smoking Status: Former Smoker Former Smoker, Quit: Aug 07, 2016 Type Used: Cigarettes 2nd Hand Smoke Exposure: Yes Recent Foreign Travel: No Contact w/Someone Who Travel: No Recent Infectious Disease Expo: No Recent Hopitalizations: Yes Immunizations Up To Date Tetanus Booster (TDap): Less than 5yrs PED Vaccines UTD: No Date of Pneumonia Vaccine: Aug 09, 2017 Date of Influenza Vaccine: Sep 08, 2018 Seasonal Allergies Seasonal Allergies: No Surgeries History of Surgeries: Yes Surgeries: Amputation, Appendectomy, Section, Gallbladder, Hysterectomy, Oophorectomy, Orthopedic, Tubal Ligation, Vascular Surgery Respiratory History of Respiratory Disorde: Yes Respiratory Disorders: Pneumonia, COPD Cardiovascular History of Cardiac Disorders: Yes Cardiac Disorders: Cardiomyopathy, Deep Vein Thrombosis, High Cholesterol, Hypertension, Peripheral Vascular Neurological History of Neurological Disord: Yes (PSEUDOSEIZURES; SEIZURE 09/06/18 --POSSIBLY DUE TO METH USE) Neurological Disorders: Concussion, Headaches /Migraines, Neuropathy, Seizure Disorder, Traumatic Brain Injury 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 System Hx 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 Disorders: Yes Sexually Transmitted Disease: No HIV/AIDS: No 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 Disorders: Denies, Menstrual Problems 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, Menopausal Genitourinary History of Genitourinary Disor: Yes (LEFT RENAL ARTERY THROMBUS WITH INFARCT) Genitourinary Disorders: Bladder Infection, Kidney Stones, Renal Failure, UTI- Chronic Gastrointestinal History of Gastrointestinal Di: Yes (SPLENIC EMBOLI WITH INFARCT; GASTROPARESIS) Gastrointestinal Disorders: Gastroesophageal Reflux Musculoskeletal History of Musculoskeletal Dis: Yes (L2 COMPRESSION FX 10/17/17) Musculoskeletal Disorders: Degenerate Disk Disease, Arthritis, Back Injury, Chronic Back Pain, Fractures Endocrine History of Endocrine Disorders: Yes (NON-COMPLIANCE; DKA MUJLTIPLE TIMES.) Endocrine Disorders: Diabetes, Insulin dep, Hypothyroidsim HEENT History of HEENT Disorders: No Cancer History of Cancer: No Psychosocial History of Psychiatric Problem: Yes (POLYSUBSTANCE ABUSE) Behavioral Health Disorders: Pseudo Seizures, Sleep Difficulties, Anxiety, Bipolar, Schizophrenia, Depression Integumentary History of Skin or Integumenta: Yes (MRSA ABSCESSES) Blood Transfusions History of Blood Disorders: Yes (iron deficiency anemia) Adverse Reaction to a Blood Tr: No Family Medical History Significant Family History: Heart Disease, COPD, Diabetes Family Medial History: Diabetes mellitus 19 FATHER 19 MOTHER G8 BROTHER G8 SISTER FH: COPD (chronic obstructive pulmonary disease) G8 SISTER Myocardial infarction 19 MOTHER Review of Systems-General Constitutional: No chills, No fever Respiratory: No cough, No dyspnea on exertion Cardiovascular: No chest pain; edema Skin: pruritus (on neck lesion), other (multiple tattoos) Psychiatric/Neurological: Denies Numbness, Denies Tingling Physical Exam-General Problems Physical Exam Vital Signs Vital Signs - First Documented 09/28/19 09/28/19 10/01/19 14:46 19:40 13:26 Temp 36.2 Pulse 83 Resp 22 B/P (MAP) 117/67 (84) Pulse Ox 94 O2 Delivery Room Air O2 Flow Rate 3.00 FiO2 21 Capillary Refill : Greater Than 3 Seconds General Appearance: no apparent distress, other (chronically ill) Neck: supple, other (lesion on L neck at old EJ site, about the size of a quarter and raised 2 cm. It is erythematous, firm, slightly warm, slightly mobile.) Respiratory: lungs clear, normal breath sounds, no respiratory distress, no accessory muscle use Cardiovascular: normal peripheral pulses, regular rate, rhythm, no murmur Peripheral Pulses: 2+ Radial Pulses (R), 2+ Radial Pulses (L) Extremities: non-tender, no calf tenderness, pedal edema (L leg wrapped, edema in upper leg and thigh) Neurologic/Psychiatric: alert, normal mood/affect, oriented x 3 Skin: normal color, warm/dry Lymphatic: no adenopathy; No axilla node tender (R), No axilla node tender (L) Data Review Labs Laboratory Tests 10/02/19 21:44: Glucometer 258H 10/03/19 04:15: White Blood Count 6.7, Red Blood Count 4.33L, Hemoglobin 9.3L, Hematocrit 33L, Mean Corpuscular Volume 75L, Mean Corpuscular Hemoglobin 22L, Mean Corpuscular Hemoglobin Concent 29L, Red Cell Distribution Width 20.7H, Platelet Count 565H, Mean Platelet Volume 10.6H, Neutrophils (%) (Auto) 70, Lymphocytes (%) (Auto) 17, Monocytes (%) (Auto) 10, Eosinophils (%) (Auto) 3, Basophils (%) (Auto) 1, Neutrophils # (Auto) 4.7, Lymphocytes # (Auto) 1.1, Monocytes # (Auto) 0.6, Eosinophils # (Auto) 0.2, Basophils # (Auto) 0.0 10/03/19 04:25: Sodium Level 133L, Potassium Level 5.5H, Chloride Level 95L, Carbon Dioxide Level 29, Anion Gap 9, Blood Urea Nitrogen 28H, Creatinine 0.97, Estimat Glomerular Filtration Rate > 60, BUN/Creatinine Ratio 29, Glucose Level 254H, Calcium Level 8.7, Corrected Calcium 9.8, Total Bilirubin 0.4, Aspartate Amino Transf (AST/SGOT) 25, Alanine Aminotransferase (ALT/SGPT) 25, Alkaline Phosphatase 443H, Total Protein 5.9L, Albumin 2.6L 10/03/19 12:13: Glucometer 438*H 10/03/19 16:13: Glucometer 193H Assessment/Plan Assessment/Plan Assessment/Plan Assessment: L neck lesion concerning for abscess CHF DM PVD COPD Hypothyroid Neuropathy Arthritis Plan: Patient likely does not have abscess at EJ site, likely a noninfectious cellulitis, okay to discharge to care home, instructed to treat with NSAIDs and warm compress. Clinical Quality Measures DVT/VTE Risk/Contraindication: Risk Factor Score Per Nursin RFS Level Per Nursing on Admit: 4+=Very High GRACIA ACUÑA DO 10/03/19 1716: History of Present Illness History of Present Illness Time Seen by Provider: 16:35 History of Present Illness Pt states pain is controlled with meds and she wants to go home. Allergies and Home Medications Allergies Coded Allergies: Penicillins (Verified Allergy, Unknown, 04/06/19) Home Medications Aspirin 81 Mg Tablet.dr, 81 MG PO DAILY, (Reported) Atorvastatin Calcium 40 Mg Tablet, 40 MG PO DAILY, (Reported) Calcium Carbonate 600 Mg Tablet, 600 MG PO DAILY, (Reported) Carvedilol 3.125 Mg Tablet, 3.125 MG PO BID, (Reported) Cephalexin 500 Mg Capsule, 500 MG PO TID Prescribed by: SAY SANTIAGO on 10/03/19 1158 Enoxaparin Sodium 40 Mg/0.4 Ml Syringe, 40 MG SC Q24H Prescribed by: SAY SANTIAGO on 10/03/19 1157 Furosemide 40 Mg Tablet, 40 MG PO DAILY, (Reported) Hydrocodone/Acetaminophen 1 Each Tablet, 1 TAB PO Q8H PRN for PAIN-MODERATE Prescribed by: SAY SANTIAGO on 10/03/19 1157 Insulin Aspart 300 Units/3 Ml Solution, 10-12 UNITS SQ TIDAC, (Reported) Insulin Determir 1,000 Units/10 Ml Soln, 20 UNIT SQ HS Prescribed by: CRISS CORTEZ on 09/25/19 1145 Lisinopril 2.5 Mg Tablet, 2.5 MG PO DAILY, (Reported) Miconazole Nitrate 90 Gm Powder, 0 GM TOP BID Prescribed by: SAY SANTIAGO on 10/03/19 115 Nystatin 15 Gm Cream..g., 0 GM TP TID Prescribed by: SAY SANTIAGO on 10/03/19 1157 Patient Home Medication List Home Medication List Reviewed: Yes Past Wlgdhlz-Fmsjir-Wnyvuu Hx Family Medical History Family Medial History: Diabetes mellitus 19 FATHER 19 MOTHER G8 BROTHER G8 SISTER FH: COPD (chronic obstructive pulmonary disease) G8 SISTER Myocardial infarction 19 MOTHER Physical Exam-General Problems Physical Exam HEENT: other (Left neck at EJ site is an appx 2cm area of erythema directly over firm tissue, does not feel fluctuant, it is mildly tender to the touch) Assessment/Plan Assessment/Plan Assessment/Plan Left neck Cellulitis probably Superficial Thrombophlebitis Would treat pt with ABX, NSAIDs and warm compresses. She can be discharged today, nothing surgical to drain at this time. Supervisory-Addendum Brief Verification & Attestation Participated in pt care: history, MDM, physical Personally performed: exam, history, MDM Care discussed with: Medical Student Procedures: n/a Verification and Attestation of Medical Student E/M Service A medical student performed and documented this service in my presence. I reviewed and verified all information documented by the medical student and made modifications to such information, when appropriate. I personally performed the physical exam and medical decision making. Gracia Acuña, Oct 03, 2019,17:16 JOHNSON CRAMER MED STUDENT Oct 03, 2019 16:48 GRACIA SNELL DO Oct 03, 2019 17:16 POS
[2019-10-03 17:30] VITALS: BP 126/78
== END 2019-10-03 17:40 | DRG 292 ==
LOC: EDUNIT# 14:46 → ER 14:48 → CSD 16:46 → 4TH 09-30 17:28
PROVIDERS: ADMIT Internal Medicine; ATTEND Internal Medicine
DX: I11.0 Hypertensive heart disease with heart failure (principal); I50.23 Acute on chronic systolic (congestive) heart failure; E87.1 Hypo-osmolality and hyponatremia; L03.221 Cellulitis of neck; I80.8 Phlebitis and thrombophlebitis of other sites; N28.89 Other specified disorders of kidney and ureter; F19.10 Other psychoactive substance abuse, uncomplicated; J44.9 Chronic obstructive pulmonary disease, unspecified; E78.00 Pure hypercholesterolemia, unspecified; E11.51 Type 2 diabetes mellitus with diabetic peripheral angiopathy without gangrene; G43.909 Migraine, unspecified, not intractable, without status migrainosus; G40.909 Epilepsy, unspecified, not intractable, without status epilepticus; K21.9 Gastro-esophageal reflux disease without esophagitis; E03.9 Hypothyroidism, unspecified; M54.9 Dorsalgia, unspecified; G89.29 Other chronic pain; M19.90 Unspecified osteoarthritis, unspecified site; F31.9 Bipolar disorder, unspecified; F41.9 Anxiety disorder, unspecified; F20.9 Schizophrenia, unspecified; D50.9 Iron deficiency anemia, unspecified; I42.0 Dilated cardiomyopathy; E11.65 Type 2 diabetes mellitus with hyperglycemia; I44.7 Left bundle-branch block, unspecified; D72.829 Elevated white blood cell count, unspecified; E87.5 Hyperkalemia; Z89.512 Acquired absence of left leg below knee; Z87.01 Personal history of pneumonia (recurrent); Z90.49 Acquired absence of other specified parts of digestive tract; Z87.820 Personal history of traumatic brain injury
CPT/HCPCS: 36415; 51702; 71045; 80048; 80053; 80306; 81000; 82962; 83735; 83880; 84100; 84443; 84484; 85025; 93005; 93306; 94640; 94760

== ENCOUNTER → 2019-10-08 | Emergency (ER) | payer MEDICAID ==
[~2019-10-08] VITALS: Ht 172 cm; Wt 100.0 kg
[~2019-10-08] MED LIST changes: +CALC600T12 PO; +CEFEPIME INJECTION 1,000 MG in WATER (STERILE) FOR INJECTION 10 ML IV ONE; +CEPH-507 PO; +ENOX40DI8 SC; +MICO90PO TOP; +MIDAZOLAM 5 MG/5 ML (VERSED) VIAL IVP ONE; +NOREPINEPHRINE 4 MG in NS (IVPB) 250 ML IV SCH; +NYST15CR TP; +PROPOFOL DRIP (ICU) 100 ML IV ONE; +PROPOFOL DRIP (ICU) 100 ML IV SCH; +PROPOFOL INJECTION 50 ML IV SCH
[2019-10-08 09:23] LABS: BASOPHILS # (AUTO) 0.1 10^3/uL (0.0-0.1); BASOPHILS % (AUTO) 1 % (0-10); EOSINOPHILS # (AUTO) 0.2 10^3/uL (0.0-0.3); EOSINOPHILS % (AUTO) 2 % (0-10); HEMATOCRIT 35 % (35-52); HEMOGLOBIN 9.6 G/DL (11.5-16.0); LYMPHOCYTES # (AUTO) 3.4 X 10^3 (1.0-4.0); LYMPHOCYTES % (AUTO) 34 % (12-44); MEAN CORPUSCULAR HEMOGLOBIN 22 PG (25-34); MEAN CORPUSCULAR HGB CONC 27 G/DL (32-36); MEAN CORPUSCULAR VOLUME 79 FL (80-99); MONOCYTES # (AUTO) 0.7 X 10^3 (0.0-1.0); MONOCYTES % (AUTO) 7 % (0-12); NEUTROPHILS # (AUTO) 5.8 X 10^3 (1.8-7.8); NEUTROPHILS % (AUTO) 57 % (42-75); PLATELET COUNT 669 10^3/uL (130-400); RED CELL DISTRIBUTION WIDTH 21.6 % (10.0-14.5); WHITE BLOOD COUNT 10.1 10^3/uL (4.3-11.0)
[2019-10-08 09:26] VITALS: BP 92/69
[2019-10-08 09:27] LABS: ABG BASE EXCESS -6.5 MMOL/L (-2.5-2.5); ABG OXYGEN SATURATION 90 % (94-100); ABG PO2 78 MMHG (79-93); ABG TCO2 24.5 MMOL/L (21.0-31.0)
[2019-10-08 09:29] LABS: BILIRUBIN,URINE NEGATIVE (NEGATIVE); CLARITY,URINE CLEAR; COLOR,URINE YELLOW; GLUCOSE, URINE (UA) NEGATIVE (NEGATIVE); KETONES,URINE NEGATIVE (NEGATIVE); LEUKOCYTE ESTERASE ,URINE TRACE (NEGATIVE); NITRITE,URINE NEGATIVE (NEGATIVE); PH,URINE 7.5 (5-9); PROTEIN,URINE 2+ (NEGATIVE)
[2019-10-08 09:29] LABS: ABG PCO2 75 MMHG (35-45); ABG PH 7.09 (7.37-7.43); ALLENS TEST YES-POS; INSPIRED O2 100%; PATIENT TEMP 36.3; VENTILATOR YES
--- NOTE | 2019-10-08 09:30 | NUR ---
PT HAD BEEN ADMITED IN THIS [facility]ITAL SEPTEMBER 28- FOR CHF.
[2019-10-08 09:36] LABS: INR 1.1 (0.8-1.4); PROTHROMBIN TIME PATIENT 14.7 SEC (12.2-14.7)
[2019-10-08 09:44] LABS: BACTERIA,URINE TRACE /HPF
[2019-10-08 09:44] LABS: BILIRUBIN,TOTAL 0.3 MG/DL (0.1-1.0); CALCIUM 8.9 MG/DL (8.5-10.1); CREATININE SERUM 1.01 MG/DL (0.60-1.30); MAGNESIUM 2.3 MG/DL (1.6-2.4); POTASSIUM 5.3 MMOL/L (3.6-5.0); TOTAL PROTEIN 6.7 GM/DL (6.4-8.2)
[2019-10-08 09:51] LABS: CREATINE KINASE MB 4.1 NG/ML (<6.6)
--- NOTE | 2019-10-08 10:15 | Diagnostic Imaging Report ---
INDICATION: Post code. Time of exam 9:41 AM Correlation is made with prior chest from 09/29/2019. The endotracheal tube has the tip in good position above the sadaf. There is a nasogastric tube that passes below the hemidiaphragms. The heart is enlarged. There is consolidation in the left lung base completely obscuring the left hemidiaphragm. The right lung is fairly clear. There is central vascular congestion. No pneumothorax is seen. An external pacer overlies the right upper chest. IMPRESSION: 1. Satisfactory endotracheal tube placement with tip above the sadaf. 2. Left basilar consolidation. Dictated by: Dictated on workstation # [id number]
[2019-10-08 10:58] LABS: ABG BASE EXCESS 1.9 MMOL/L (-2.5-2.5); ABG OXYGEN SATURATION 94 % (94-100); ABG PCO2 55 MMHG (35-45); ABG PO2 74 MMHG (79-93); ABG TCO2 29.3 MMOL/L (21.0-31.0)
[2019-10-08 11:01] LABS: ABG PH 7.31 (7.37-7.43); ALLENS TEST 36.4; INSPIRED O2 60%; PATIENT TEMP 36.4; VENTILATOR YES
--- NOTE | 2019-10-08 11:04 | Consultation-Cardiology ---
HPI-Cardiology Cardiology Consultation: Date of Consultation 10/08/19 Date of Admission Attending Physician Admitting Physician [place] Consulting Physician Taras SUAREZ MD HPI: Time Seen by a Provider: 10:40 Chief Complaint: Post cardiac arrest This is a 49-year-old lady who has history of nonischemic dilated cardiomyopathy with EF in 09/2019 of 25 percent. Chronic atypical left bundle branch block, left pleural effusion, type II diabetes, hyponatremia, left BKA. She was recently admitted to our hospital for acute systolic congestive heart failure. She was previously prescribed LifeVest for primary prevention of sudden cardiac . On her recent admission I asked her numerous times to wear her life vest but she would not. I did discuss with her the risk of VT/V. fib, she understood the risk. She presented to the ER after she had a cardiac arrest at the senior living that she was in. And AED was placed which according to the report said shockable rhythm therefore 1 shock was given. CPR was continued. When EMS got there the initial report says that she was in asystole and ACLS was started. There was return of spontaneous circulation. EKG in the ER showed sinus rhythm. Cardiogenic shock with systolic blood pressure of 60 mmHg, levo fed was started. Patient was intubated and ventilated. Review of Systems-Cardiology Review of Systems Constitutional: As described under HPI Eyes: As described under HPI Ears/Nose/Throat: As described under HPI Respiratory: As described under HPI Cardiovascular: As described under HPI Gastrointestinal: As described under HPI Genitourinary: As described under HPI Musculoskeletal: As describe under HPI Skin: As described under HPI Psychiatric/Neurological: As described under HPI All Other Systems Reviewed Negative Unless Noted: Yes NYG-Urfoyl-Kmgrpz Hx Patient Social History Alcohol Use: Denies Use Recreational Drug Use: No (SMOKES 1PPD) Drug of Choice: +IV METH AND COCAINE USE, ALSO SMOKES/SNORTS THEM. BENZODIAZEPINE ABUSE Smoking Status: Unknown if Ever Smoked Type Used: Cigarettes 2nd Hand Smoke Exposure: Yes Recent Foreign Travel: No Recent Infectious Disease Expo: No Immunizations Up To Date Tetanus Booster (TDap): Less than 5yrs Date of Pneumonia Vaccine: Aug 09, 2017 Date of Influenza Vaccine: Sep 08, 2018 Past Medical History PMH As described under Assessment. Family Medical History Family Medical History: She reports her mother passed from an [facility] in her late 40's. She reports her father had CAD. Family History: Diabetes mellitus 19 FATHER 19 MOTHER G8 BROTHER G8 SISTER FH: COPD (chronic obstructive pulmonary disease) G8 SISTER Myocardial infarction 19 MOTHER Allergies and Home Medications Allergies Coded Allergies: Penicillins (Verified Allergy, Unknown, 04/06/19) Home Medications Aspirin 81 Mg Tablet.dr, 81 MG PO DAILY, (Reported) Atorvastatin Calcium 40 Mg Tablet, 40 MG PO DAILY, (Reported) Calcium Carbonate 600 Mg Tablet, 600 MG PO DAILY, (Reported) Carvedilol 3.125 Mg Tablet, 3.125 MG PO BID, (Reported) Cephalexin 500 Mg Capsule, 500 MG PO TID Prescribed by: SAY SANTIAGO on 10/03/19 1158 Enoxaparin Sodium 40 Mg/0.4 Ml Syringe, 40 MG SC Q24H Prescribed by: SAY SANTIAGO on 10/03/19 1157 Furosemide 40 Mg Tablet, 40 MG PO DAILY, (Reported) Hydrocodone/Acetaminophen 1 Each Tablet, 1 TAB PO Q8H PRN for PAIN-MODERATE Prescribed by: SAY SANTIAGO on 10/03/19 1157 Insulin Aspart 300 Units/3 Ml Solution, 10-12 UNITS SQ TIDAC, (Reported) Insulin Determir 1,000 Units/10 Ml Soln, 20 UNIT SQ HS Prescribed by: CRISS CORTEZ on 09/25/19 1145 Lisinopril 2.5 Mg Tablet, 2.5 MG PO DAILY, (Reported) Miconazole Nitrate 90 Gm Powder, 0 GM TOP BID Prescribed by: SAY SANTIAGO on 10/03/19 1157 Nystatin 15 Gm Cream..g., 0 GM TP TID Prescribed by: SAY SANTIAGO on 10/03/19 1157 Patient Home Medication List Home Medication List Reviewed: Yes Physical Exam-Cardiology Physical Exam Vital Signs/I&O 10/08/19 10/08/19 10/08/19 10/08/19 09:04 09:26 10:06 10:06 Temp 36.3 35.50321 35.33199 Pulse 83 84 75 75 Resp 12 16 16 16 B/P (MAP) 92/69 (77) 75/56 75/56 Pulse Ox 95 73 73 73 O2 Delivery Ambu Bag Mechanical Ventilator Mechanical Ventilator FiO2 100 Capillary Refill : Greater Than 3 Seconds Constitutional: appears stated age; No apparent distress; well-developed, well-nourished, other (intubated/ventilated) HEENT: PERRL; No discharge; hearing is well preserved, oral hygience is good; No ulceration, No xanthelasmas are seen Neck: No carotid bruit; carotid pulses are 2 + bilaterally Respiratory: chest is bilaterally symmetric, lungs clear to auscultation Cardiovascular: regular rate-rhythm, S1 and S2 Gastrointestinal: soft, audible bowel sounds; No spleenomegaly Rectal: deferred Extremities: normal range of motion, non-tender, normal inspection; No club kavitha, No cyanosis; no lower extremity edema bilateral; No significant edema Neurologic/Psychiatric: other (and intubated/ventilated) Skin: cool; No rash, No ulcerations Data Review Labs Laboratory Tests 10/08/19 09:11: White Blood Count 10.1, Red Blood Count 4.41, Hemoglobin 9.6L, Hematocrit 35, Mean Corpuscular Volume 79L, Mean Corpuscular Hemoglobin 22L, Mean Corpuscular Hemoglobin Concent 27L, Red Cell Distribution Width 21.6H, Platelet Count 669H, Mean Platelet Volume 10.0, Neutrophils (%) (Auto) 57, Lymphocytes (%) (Auto) 34, Monocytes (%) (Auto) 7, Eosinophils (%) (Auto) 2, Basophils (%) (Auto) 1, Neutrophils # (Auto) 5.8, Lymphocytes # (Auto) 3.4, Monocytes # (Auto) 0.7, Eosinophils # (Auto) 0.2, Basophils # (Auto) 0.1, Prothrombin Time 14.7, INR Comment 1.1, Activated Partial Thromboplast Time 35, Sodium Level 136, Potassium Level 5.3H, Chloride Level 101, Carbon Dioxide Level 20L, Anion Gap 15H, Blood Urea Nitrogen 41H, Creatinine 1.01, Estimat Glomerular Filtration Rate 58, BUN/Creatinine Ratio 41, Glucose Level 308H, Lactic Acid Level 7.26*H, Calcium Level 8.9, Corrected Calcium 9.7, Magnesium Level 2.3, Total Bilirubin 0.3, Aspartate Amino Transf (AST/SGOT) 117H, Alanine Aminotransferase (ALT/SGPT) 53, Alkaline Phosphatase 565H, Total Creatine Kinase 86, Creatine Kinase MB 4.1, Myoglobin 138.8H, Troponin I 0.034H, B-Type Natriuretic Peptide 2651.0H, Total Protein 6.7, Albumin 3.0L 10/08/19 09:20: Blood Gas Puncture Site RT RAD, Blood Gas Patient Temperature 36.3, Arterial Blood pH 7.09*L, Arterial Blood Partial Pressure CO2 75*H, Arterial Blood Partial Pressure O2 78L, Arterial Blood HCO3 22L, Arterial Blood Total CO2 24.5, Arterial Blood Oxygen Saturation 90L, Arterial Blood Base Excess -6.5L, Garcia Test YES-POS, Blood Gas Ventilator Setting YES, Blood Gas Inspired Oxygen 100% 10/08/19 09:21: Urine Color YELLOW, Urine Clarity CLEAR, Urine pH 7.5, Urine Specific [place] 1.020, Urine Protein 2+H, Urine Glucose (UA) NEGATIVE, Urine Ketones NEGATIVE, Urine Nitrite NEGATIVE, Urine Bilirubin NEGATIVE, Urine Urobilinogen 0.2, Urine Leukocyte Esterase TRACE, Urine RBC (Auto) 2+H, Urine RBC 5-10H, Urine WBC 2-5, Urine Squamous Epithelial Cells 10-25H, Urine Crystals NONE, Urine Bacteria TRACE, Urine Casts NONE, Urine Mucus NEGATIVE, Urine Culture Indicated NO 10/08/19 10:51: Blood Gas Puncture Site RT RAD, Blood Gas Patient Temperature 36.4, Arterial Blood pH 7.31*L, Arterial Blood Partial Pressure CO2 55H, Arterial Blood Partial Pressure O2 74L, Arterial Blood HCO3 28H, Arterial Blood Total CO2 29.3, Arterial Blood Oxygen Saturation 94, Arterial Blood Base Excess 1.9, Garcia Test 36.4, Blood Gas Ventilator Setting YES, Blood Gas Inspired Oxygen 60% 10/08/19 11:25: Lactic Acid Level 3.15*H ECG Impression ECG Initial ECG Rhythm: Normal Sinus A/P-Cardiology Assessment/Admission Diagnosis Cardiogenic shock, Post cardiac arrest, Nonischemic dilated cardiomyopathy, Left BKA, Chronic atypical left bundle branch block, Previous drug abuse Plan Cardiogenic shock, Post cardiac arrest, Nonischemic dilated cardiomyopathy, Left BKA, Chronic atypical left bundle branch block, Previous drug abuse Intubated/ventilated. On inotropes, systolic blood pressure 75 mmHg. She will require therapeutic hypothermia. We do not have an ICU bed available therefore the patient is being transferred to [place]. Patient had coronary angiography on 06/2019 which showed patent epicardial coronary arteries. She is known to have severe nonischemic cardiomyopathy and was prescribed a LifeVest for primary prevention of sudden cardiac . I saw her on her recent admission few days ago and she was not wearing the LifeVest. I emphasized strongly the importance of LifeVest in preventing sudden cardiac . The patient understood the risks. However she would still not wear the LifeVest. Patient is currently in sinus rhythm. Cardiac arrest was likely VT/ventricular fibrillation. Critically ill patient with guarded prognosis. Thank you for your consultation. Please call me if you have any questions. Hui Suarez MD, FACP, FACC, FSCAI, FHRS, CCDS Interventional Cardiology Cardiac Electrophysiology Vascular Medicine and Endovascular Interventions Taras SUAREZ MD Oct 08, 2019 11:04 POS
--- NOTE | 2019-10-08 11:17 | NUR ---
NOREPINEPHRINE RATE CHANGED TO 50 MLS/HR PER DR. CHU.
--- NOTE | 2019-10-08 11:30 | NUR ---
ICE PACKS IN ARM PITS AND GROIN PER STAFF AT [facility].
--- NOTE | 2019-10-08 12:28 | NUR ---
PT WAS MOVING HEAD AND ARMS, 4 MG VERSED GIVEN PER DR. CHU.
--- NOTE | 2019-10-08 12:38 | NUR ---
EMS CREW IN TO TRANSFER PT.
--- NOTE | 2019-10-08 12:50 | NUR ---
THIRD IV ADDED TO LT WRIST FOR ABX INJECTION.
[2019-10-08 13:05] VITALS: BP 118/79
--- NOTE | 2019-10-10 05:20 | ED General ---
General Chief Complaint: Code Blue Stated Complaint: POST CODE Nursing Triage Note: 09 PT TO RM 4 BY [facility] POST CODE FROM [facility]. PT WAS SEEN WALKING THE [place] PRIOR TO COLLAPSE. AT 0834 PT UNRESPONSIVE, CPR STARTED BY STAFF, 1 SHOCK DELIVERED BY [facility] AFTER THEIR ARRIVAL. WHEN EMS ARRIVED PT WAS IN ASYSTOLE, 1 MG EPI GIVEN WITH ROSC FOLLOWING THE DOSE. INTUBATED BY EMS, 20 RT AC, BLOOD SUGAR 279. Nursing Sepsis Screen: No Definite Risk Source of Information: EMS, [facility] Records, Old Records Exam Limitations: Other (PT IS UNRESPONSIVE AND ON VENTILATOR ON ARRIVAL) History of Present Illness Date Seen by Provider: Oct 08, 2019 Time Seen by Provider: 09:04 Initial Comments PT ARRIVES VIA EMS FROM [facility] PT HAD WITNESSED ARREST AT [facility]--NEAR NURSING DESK--APPROXIMATELY 30 MINUTES PRIOR TO ARRIVAL NO REPORTED TRAUMA/INJURY DURING THE ARREST [facility] STAFF PLACED AED AND 1 SHOCK WAS DELIVERED. WHEN EMS ARRIVED AT THE SCENE, PT WAS PULSELESS AND APNEIC, WITH ASYSTOLE ON MONITOR. CPR WAS INITIATED/CONTINUED BY EMS, AND EMS GAVE EPINEPHRINE X 1 DOSE, AND PT HAD ROSC. PT NOW IS IN NSR WITH RATE IN 70'S. PT WAS INTUBATED WITH 8.0 ET TUBE BY EMS, AND PT IS BEING BAGGED ON ARRIVAL TO ER. PT HAS EXTENSIVE MEDICAL HISTORY--CHF, COPD, ASVD, +IV METH USE, COCAINE USE AND BENZODIAZEPINE ABUSE, LEFT BKA, ETC. PT WAS ADMITTED HERE 09/28-10/03 FOR CHF--SEE CHART FOR DETAILS ALSO SEE CHART FROM 08/17/19 FOR DETAILS PT HAS LONG HISTORY OF EXTREME NON-COMPLIANCE IN ALL ASPECTS OF CARE PT HAS BEEN SET UP FOR LIFE VEST IN THE PAST, BUT PT HAS REFUSED TO WEAR/USE IT --DUE TO SEVERE LV DYSFUNCTION/NON-ISCHEMIC CARDIOMYOPATHY. PCP: [facility] Allergies and Home Medications Allergies Coded Allergies: Penicillins (Verified Allergy, Unknown, 04/06/19) Home Medications Aspirin 81 Mg Tablet.dr, 81 MG PO DAILY, (Reported) Atorvastatin Calcium 40 Mg Tablet, 40 MG PO DAILY, (Reported) Calcium Carbonate 600 Mg Tablet, 600 MG PO DAILY, (Reported) Carvedilol 3.125 Mg Tablet, 3.125 MG PO BID, (Reported) Cephalexin 500 Mg Capsule, 500 MG PO TID Prescribed by: SAY SANTIAGO on 10/03/19 1158 Enoxaparin Sodium 40 Mg/0.4 Ml Syringe, 40 MG SC Q24H Prescribed by: SAY SANTIAGO on 10/03/19 1157 Furosemide 40 Mg Tablet, 40 MG PO DAILY, (Reported) Hydrocodone/Acetaminophen 1 Each Tablet, 1 TAB PO Q8H PRN for PAIN-MODERATE Prescribed by: SAY SANTIAGO on 10/03/19 1157 Insulin Aspart 300 Units/3 Ml Solution, 10-12 UNITS SQ TIDAC, (Reported) Insulin Determir 1,000 Units/10 Ml Soln, 20 UNIT SQ HS Prescribed by: CRISS CORTEZ on 09/25/19 1145 Lisinopril 2.5 Mg Tablet, 2.5 MG PO DAILY, (Reported) Miconazole Nitrate 90 Gm Powder, 0 GM TOP BID Prescribed by: SAY SANTIAGO on 10/03/19 115 Nystatin 15 Gm Cream..g., 0 GM TP TID Prescribed by: SAY SANTIAGO on 10/03/19 1157 Patient Home Medication List Home Medication List Reviewed: Yes Review of Systems Review of Systems Constitutional: other (UNABLE TO OBTAIN FROM PT) Past Cekcxca-Jdjhuz-Jxjhzd Hx Past Med/Social Hx: Reviewed and Corrections made Patient Social History Alcohol Use: Past History (EXTENSIVE HISTORY OF ALCOHOL ABUSE--LAST ETOH IS UNKNOWN) Recreational Drug Use: Yes (+ IV METH AND COCAINE USE--ALSO SMOKES AND SNORTS THEM, BENZODIAZEPINE AUBE) Drug of Choice: +IV METH AND COCAINE USE, ALSO SMOKES/SNORTS THEM. BENZODIAZEPINE ABUSE Smoking Status: Current Everyday Smoker (2 PPD) Type Used: Cigarettes (2 PPD) Former Smoker, Quit: Aug 07, 2016 2nd Hand Smoke Exposure: Yes Recent Foreign Travel: No Contact w/Someone Who Travel: No Recent Infectious Disease Expo: No Recent Hopitalizations: Yes Immunizations Up To Date Tetanus Booster (TDap): Less than 5yrs PED Vaccines UTD: No Date of Pneumonia Vaccine: Aug 09, 2017 Date of Influenza Vaccine: Sep 08, 2018 Seasonal Allergies Seasonal Allergies: No Past Medical History Surgeries: Yes (MULTIPLE CARDIAC CATHS--NO CARDIAC INTERVENTIONS; MULTIPLE VASCULAR PROCEDURES ON LEFT LEG INCLUDING THROMBECTOMIES, BYPASS, STENTING AND LATER HAD LEFT BKA; RIGHT LEG VASCULAR SURGERY--"TO REMOVE BLOOD CLOTS" PER PT; ECTOPIC ; APPY; X 3; MRSA FACIAL ABSCESSES WITH DEBRIDEMENTS; UTERINE ARTERY EMBOLIZATION; ?/HYST/BSO??; D&C) Amputation, Appendectomy, Cardiac, Section, Gallbladder, Hysterectomy (?/), Oophorectomy (??), Orthopedic, Tubal Ligation, Vascular Surgery Respiratory: Yes Pneumonia, COPD Currently Using CPAP: No Currently Using BIPAP: No Cardiac: Yes (CHF; SEVERE LV DYSFUNCTION/NON-ISCHEMIC CARDIOMYOPATHY--PT HAS REFUSED TO WEAR LIFE VEST; ARTERIAL OCCLUSION/CLOT IN LEFT LEG--S/P MULTIPLE VASCULAR PROCEDURES INCLUDING THROMBECTOMIES, STENTS, ARTERIAL BYPASS AND EVENTUALLY LEFT BKA; RIGHT LEG VASCULAR SURGERY " TO REMOVE BLOOD CLOT" PER PT; 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 0--PT HAD MULTIPLE EMBOLI, INCLUDING LEFT VENTRICLE THROMBUS, WITH SPLENIC EMBOLI AND INFARCT, LEFT RENAL ARTERY THROMBUS AND INFARCT; LEFT FEMORAL ARTERY THROMBUS WITH OCCLUSION; CARDIAC CATH 07/20/19--NO OCCLUSIVE DISEASE, SEVER LV SYSTOLIC DYSFUNCION/ NON-ISCHEMIC CARDIOMYOPATHY WIHT EF 20-25%-HAS BEEN LOW 15% IN PAST; ) Cardiomyopathy, Chronic Edema/Swelling, Deep Vein Thrombosis, High Cholesterol, Hypertension, Peripheral Vascular Neurological: Yes (PSEUDOSEIZURES; SEIZURE 09/06/18 --POSSIBLY DUE TO METH USE) Concussion, Headaches /Migraines, Neuropathy, Seizure Disorder, Traumatic Brain Injury 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 Disorders: Yes (CHRONIC PELVIC PAIN; MENORRHAGIA, PELVIC MASS/UTERINE FIBROID--S/P UTERINE ARTERY EMBOLIZATION; PT VERBALIZES HYST/BSO, BUT NO PHYSICIAN DOCUMENTATION/VERIFICATION OF THIS) 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 Disorders: Denies, 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, Menopausal Sexually Transmitted Disease: No HIV/AIDS: No Genitourinary: Yes (LEFT RENAL ARTERY THROMBUS WITH INFARCT) Bladder Infection, Kidney Stones, Renal Failure, UTI-Chronic Gastrointestinal: Yes (SPLENIC EMBOLI WITH INFARCT; GASTROPARESIS) Gastroesophageal Reflux Musculoskeletal: Yes (L2 COMPRESSION FX 10/17/17) Degenerate Disk Disease, Arthritis, Back Injury, Chronic Back Pain, Fractures Endocrine: Yes (NON-COMPLIANCE; DKA MUJLTIPLE TIMES.) Diabetes, Insulin dep, Hypothyroidsim HEENT: No Cancer: No Psychosocial: Yes (POLYSUBSTANCE ABUSE) Pseudo Seizures, Sleep Difficulties, Anxiety, Bipolar, Schizophrenia, Depression Integumentary: Yes (MRSA ABSCESSES) Blood Disorders: Yes (iron deficiency anemia) Adverse Reaction/Blood Tranf: No Family Medical History Diabetes mellitus 19 FATHER 19 MOTHER G8 BROTHER G8 SISTER FH: COPD (chronic obstructive pulmonary disease) G8 SISTER Myocardial infarction 19 MOTHER Heart Disease, COPD, Diabetes Physical Exam Vital Signs Capillary Refill : Greater Than 3 Seconds Height, Weight, BMI Height: 5'11.00" Weight: 203lbs. 1.0oz. 92.733797kb; 33.00 BMI Method:Estimated General Appearance: Other (PT OBTUNDED AND INTUBATED; REEKS OF CIGARETTES; ) HEENT: Other (EXTENSIVE DENTAL DECAY, IN THE FEW REMAINING TEETH THAT PT STILL HAS;) Respiratory: Other (PT INTUBATED AND BEING BAGGED. EQUAL BREATH SOUNDS WITH BAGGING) Cardiovascular: Regular Rate, Rhythm, Extra Beats (FREQUENT ECTOPY C/W PVC'S ON MONITOR) Gastrointestinal: Soft Extremity: Pedal Edema (3+ EDEMA), Other (LEFT BKA) Neurologic/Psychiatric: Other (OBTUNDED) Skin: Pallor, Tattoos/Piercings (EXTENSIVE TATTOOS), Other (MULTIPLE SORES/SCARS/SCABS TO FACE AND ARMS) Focused Exam Lactate Level Procedures/Interventions Date of ETT Placement: Oct 08, 2019 Time of ETT Placement: 0900 Tube Size: 8.00 Progress/Results/Core Measures Suspected Sepsis Recent Fever Within 48 Hours: No Infection Criteria Present: None New/Unexplained Altered Menta: Yes Sepsis Screen: No Definite Risk SIRS Temperature:96.2 Pulse: 71 Respiratory Rate: 16 Blood Pressure 118 /79 Mean: 62 Results/Orders Lab Results Micro Results My Orders Vital Signs/I&O Capillary Refill : Greater Than 3 Seconds Blood Pressure Mean: 62 POS Progress Note : Progress Note NO DETERIORATION IN PT'S CONDITION0--REMAINED OBTUNDED ECG Initial ECG Impression Date: Oct 08, 2019 Initial ECG Impression Time: 09:12 Initial ECG Rate: 84 Initial ECG Rhythm: Normal Sinus (IVCD) EKG : EKG Time: 09:13 Rate: 84 Rhythm: Normal Sinus (IVCD) Comment EKG #3 AT 0950--NSR WITH VERY LOW VOLTAGE P-WAVES VS AFIB WITH IVCD AND PVC'S/BIGEMINY Diagnostic Imaging Comments CXR--ET TUBE IN PLACE, LEFT BASILAR CONSOLIDATION--PER RADIOLOGIST REPORT AT 1230 Reviewed: Reviewed by Me Critical Care Note Critical Care Start Time: 09:04 Departure Communication (Admissions) 0915--MESSAGE TO DR. GARCIA IN CLINICAL DIRECTOR/E.P. LAB--HE ADVISES TO PAGE DR. ROBERSON 0920--PAGING DR. ROBERSON 0924--SPOKE WITH DR. GARCIA, FOR PULMONARY/TELEVISION REPORTER CONSULT. PT A CANDIDATE FOR COOLING PROTOCOL 0928--PAGING DR. ROBERSON 0933--SPOKE WITH DR. RAMESH, ACCEPTS PT FOR ADMIT 0935--HAVE JUST BEEN INFORMED BY FIRE LIEUTENANT, THAT WE ARE NOW ON DIVERSION AND THERE ARE NO ICU BEDS AVAILABLE 0938--CALLED LORIE CARRERA TELEVISION REPORTER 1015--SPOKE WITH DR. DAY. TELEVISION REPORTER, HE AGREES THAT PT IS CANDIDATE FOR COOLING PROTOCOL. 1039--SPOKE WITH PT'S SISTER, LINCOLN GAYLE AND UPDATE ON PT'S CONDITION GIVEN TO HER. AND ADVISED OF PT'S CRITICAL CONDITION AND POSSIBILITY THAT SHE MAY ULTIMATELY NOT SURVIVE THIS. SHE APPEARS TO UNDERSTAND. 1109--CALLED [facility], NO BED ASSIGNMENT YET. Impression Primary Impression: S/P CARDIOPULMONARY ARREST Additional Impressions: Cardiopulmonary arrest with successful resuscitation SHOCK--POSSIBLY MIXED CARDIOGENIC AND SEPTIC SHOCK Pneumonia CHF (congestive heart failure) Lactic acidosis SEVERE NON-ISCHEMIC CARDIOMYOPATHY SEVERE ASVD HX OF IV METH AD COCAINE USE History of alcoholism Very heavy cigarette smoker (40 or more per day) EXTREME NONCOMPLIANCE BY HISTORY Diabetes mellitus Disposition: 02 XFER SHT-TRM HOSP Condition: Stable Transfer Transfer Reason: Diversion Transfer Facility: [facility] Method of Transfer: EMS Departure-Patient Inst. Referrals: [facility] (PCP) Primary Care Physician YANI CESAR MD (Family) Primary Care Physician SENDY CHU DO Oct 10, 2019 05:20 POS
== END ==
LOC: EDUNIT# 09:03 → ER 09:04
DX: I46.9 Cardiac arrest, cause unspecified (principal); R57.9 Shock, unspecified; J18.9 Pneumonia, unspecified organism; I11.0 Hypertensive heart disease with heart failure; I50.9 Heart failure, unspecified; E11.43 Type 2 diabetes mellitus with diabetic autonomic (poly)neuropathy; K31.84 Gastroparesis; E87.2 Acidosis; I42.8 Other cardiomyopathies; I25.10 Atherosclerotic heart disease of native coronary artery without angina pectoris; G40.909 Epilepsy, unspecified, not intractable, without status epilepticus; F10.20 Alcohol dependence, uncomplicated; E78.00 Pure hypercholesterolemia, unspecified; G43.909 Migraine, unspecified, not intractable, without status migrainosus; E03.9 Hypothyroidism, unspecified; K21.9 Gastro-esophageal reflux disease without esophagitis; F41.9 Anxiety disorder, unspecified; F31.9 Bipolar disorder, unspecified; F20.9 Schizophrenia, unspecified; D50.9 Iron deficiency anemia, unspecified; F17.210 Nicotine dependence, cigarettes, uncomplicated; Z86.718 Personal history of other venous thrombosis and embolism; Z87.820 Personal history of traumatic brain injury; Z91.19 Patient's noncompliance with other medical treatment and regimen; Z87.898 Personal history of other specified conditions; Z88.0 Allergy status to penicillin; Z79.82 Long term (current) use of aspirin; Z79.4 Long term (current) use of insulin; Z90.49 Acquired absence of other specified parts of digestive tract; Z90.710 Acquired absence of both cervix and uterus
CPT/HCPCS: 31500; 36415; 36600; 51702; 71045; 80053; 81000; 82550; 82553; 82805; 83605; 83735; 83874; 83880; 84484; 85025; 85610; 85730; 87040; 87070; 87205; 93005; 93041; 94799; 96365; 96366; 96375; 99291; 99292